=== PATIENT | female | born 1970 | race Caucasian/White ===

== ENCOUNTER 2016-12-24 07:27 | Emergency (ER) | payer MEDICAID ==
[~2016-12-24] VITALS: Ht 162.6 cm; Wt 113.4 kg
[~2016-12-24 07:27] MED LIST: ACHD5005 PO; ALBU8.5H2 IH; AMIT25TA9 PO; AMT10T PO; CLIN300C3 PO; CLOT45CR46 TOP; CYCL10TA9 PO; DICL75TA2 PO; ESTR0.5T PO; ESTR1TAB24 PO; FAMO20TA13 PO; FAMO20TA5 PO; FLC150T PO; FLUC100T PO; FLUT16SP22 NS; FRS325T PO; HCT25T PO; HYDR-3454 PO; HYDR-3714 PO; HYDR25TA4 PO; KETO75CA PO; NAPR-243 PO; NYST15CR TP; OMEG1CAP PO; OMEG1CAP51 PO; OMEP20CA12 PO; OMEP40CA36 PO; OXYC-12 PO; OXYCONTIN; PRD20T PO; PRED20TA PO; SULF-222 PO; TRAM-21 PO; TRAM50TA2 PO; TRM50T PO
--- NOTE | 2016-12-24 09:54 | ED Integumentary General ---
General Chief Complaint: Allergic Reaction Stated Complaint: RASH ON LEGS, ABD AND BACK Nursing Triage Note: PT COMPLAINS OF OVERALL RASH STARTING THIS AM AT 0430. STATES SHE STARTED DIFLUCAN YESTERDAY. HAS NOT TAKEN ANYTHING FOR THE RASH. Source: patient Exam Limitations: no limitations History of Present Illness Time seen by provider: 09:30 Initial Comments The patient is a 46-year-old white female who presents with complaints of rash and generalized itching. She reports that she had been taking Diflucan this week for the treatment of vaginal yeast. This seemed to come on early this morning. Timing/Duration: this morning Allergies and Home Medications Allergies Coded Allergies: prednisone (Verified Allergy, Severe, RASH, 12/24/16) meloxicam (Unverified Allergy, Unknown, NAUSEA, 04/20/14) Home Medications Albuterol 8.5 Gm Hfa.aer.ad, 2 PUFF IH Q4H PRN for SHORTNESS OF BREATH, ( Reported) Diclofenac Sodium 75 Mg Tablet.dr, 75 MG PO BID, (Reported) Hydrochlorothiazide 25 Mg Tablet, 25 MG PO DAILY, (Reported) Hydrocodone Bit/Acetaminophen 1 Each Tablet, 1 TAB PO TID PRN for PAIN, ( Reported) Nystatin 15 Gm Cream..g., 15 GM TP, (Reported) [place]-3 Fatty Acids/Fish Oil 1 Each Capsule, 1,000 MG PO DAILY, (Reported) Prednisone 20 Mg Tab, 40 MG PO DAILY, #8 Prescribed by: PATRICK EVANS on 06/19/16 0228 Constitutional: see HPI EENTM: no symptoms reported Respiratory: no symptoms reported Cardiovascular: no symptoms reported Other Generalized itching Past Ibcwyiv-Chipkp-Wdaxty Hx Patient Social History Recent Foreign Travel: No Contact w/Someone Who Travel: No Recent Infectious Disease Expo: No Recent Hopitalizations: No Immunizations Up To Date Tetanus Booster (TDap): Less than 5yrs PED Vaccines UTD: Yes Date of Pneumonia Vaccine: Nov 05, 2012 Seasonal Allergies Seasonal Allergies: No Surgeries HX Surgeries: Yes (I&D of abdominal abscess) Surgeries: Gallbladder, Hysterectomy, Tubal Ligation Respiratory Hx Respiratory Disorders: No Cardiovascular Hx Cardiac Disorders: Yes Cardiac Disorders: High Cholesterol, Hypertension Neurological Hx Neurological Disorders: No Reproductive System Hx Reproductive Disorders: Yes (HYSTERECTOMY AND EPTOPIC ) Sexually Transmitted Disease: No HIV/AIDS: No Female Reproductive Disorders: Menstrual Problems, Endometriosis [employer] History: Hysterectomy, Tubal Ligation Genitourinary Hx Genitourinary Disorders: No Gastrointestinal Hx Gastrointestinal Disorders: Yes Gastrointestinal Disorders: Gall Bladder Disease Musculoskeletal Hx Musculoskeletal Disorders: Yes Musculoskeletal Disorders: Degenerate Disk Disease Endocrine Hx Endocrine Disorders: No HEENT HX ENT Disorders: No Loss of Vision: Denies Hearing Impairment: Denies Cancer Hx Cancer: No Psychosocial Hx Psychiatric Problems: No Integumentary HX Skin/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) Blood Transfusions Hx Blood Disorders: No Adverse Reaction to a Blood Tr: No Family Medical History Significant Family History: No Pertinent Family Hx Family Medial History: Arthritis 19 FATHER, Onset:Unknown Cardiovascular disease G8 BROTHER, Onset:Unknown (MURMUR) G8 SISTER, Onset:Unknown Diabetes mellitus G8 SISTER, Onset:Unknown FH: CHF (congestive heart failure) 19 MOTHER, Onset:Unknown Hypertension 19 FATHER, Onset:Unknown G8 SISTER, Onset:Unknown Myocardial infarction G8 SISTER, Onset:Unknown Physical Exam Vital Signs Vital Sign - Last 12Hours 12/24/16 07:38 Temp 98.0 Pulse 69 Resp 16 B/P (MAP) 135/90 Pulse Ox 96 O2 Delivery Room Air Capillary Refill : Less Than 3 Seconds General Appearance: mild distress HEENT: normal ENT inspection Neck: full range of motion Cardiovascular: normal peripheral pulses, regular rate, rhythm, no edema, no gallop, no JVD, no murmur Respiratory: chest non-tender, lungs clear, normal breath sounds, no respiratory distress, no accessory muscle use Comments There is a minimal fine pink skin change particularly over the anterior chest below the breasts and to a lesser degree over the thighs. Progress/Results/Core Measures Results/Orders My Orders Orders - YENIFER DELGADILLO MD Diphenhydramine Injection (Benadryl Inje (12/24/16 10:00) Vital Signs/I&O Vital Sign - Last 12Hours 12/24/16 07:38 Temp 98.0 Pulse 69 Resp 16 B/P (MAP) 135/90 Pulse Ox 96 O2 Delivery Room Air Blood Pressure Mean: 105 Departure Impression Impression: Primary Impression: pruritus Disposition: 01 HOME, SELF-CARE Condition: Stable/Unchanged Departure-Patient Inst. Decision time for Depature: 09:53 Referrals: DANG CHIANG (PCP) Primary Care Physician Add. Discharge Instructions: All discharge instructions reviewed with patient and/or family. Voiced understanding. Acquire Benadryl 25 mg which is available [id number]. This may be taken every 4 hours as needed YENIFER DELGADILLO MD December 24, 2016 09:54
[2016-12-24] MEDS ORDERED: diphenhydrAMINE 50 MG/ML INJ (BENADRYL) IM ONE (10:00)
[2016-12-24 10:10] VITALS: BP 137/97
== END 2016-12-24 10:10 | disposition home or self-care (01) ==
LOC: EDUNIT# 07:27 → ER 07:28
DX: L29.9 Pruritus, unspecified (principal); I10 Essential (primary) hypertension; Z79.899 Other long term (current) drug therapy
CPT/HCPCS: 96372; 99282

== ENCOUNTER → 2016-12-30 | Outpatient (CLI) | payer MEDICAID ==
--- NOTE | 2017-01-03 09:35 | Diagnostic Imaging Report ---
Bilateral screening mammogram The current study was also evaluated with a Computer Aided Detection (CAD) system. Indication: Screening. No current complaints stated on the questionnaire. COMPARISON: 11/26/15 FINDINGS: The breasts are composed of scattered fibroglandular densities. There are benign-appearing calcifications seen. Allowing for technique and positional differences, no suspicious change is seen. IMPRESSION: No significant change. ACR BI-RADS Category 2: Benign findings. Result letter will be mailed to the patient. Note: At least 10% of breast cancer is not imaged by mammography. Dictated by: Dictated on workstation # [id number]
== END ==
LOC: RAD 09:35
PROVIDERS: ATTEND Nurse Practitioner Family
DX: Z12.31 Encounter for screening mammogram for malignant neoplasm of breast (principal)
CPT/HCPCS: 77067

== ENCOUNTER 2020-02-11 02:55 | Emergency (ER) | payer SELFPAY ==
[~2020-02-11] VITALS: Ht 160 cm; Wt 115.0 kg
--- OUTSIDE RECORDS SUMMARY | 2020-02-11 03:06 | XMS REPORT ---
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 Dish[employer]fm [facility] [place] [facility] [place] Address [address] [address] Care Team Providers Care Certified Nursing Attendant Name Role Phone MADL, DANG Unavailable Unavailable MADL, DANG Unavailable MADL, DANG Unavailable KAVITHA DIXON Unavailable RACHEL DUMAS Unavailable Unavailable MUSA MUNGUIA Unavailable Unavailable MADL, DANG L MILITARY LOGISTICS SPECIALIST Unavailable JORDON NIELSEN Unavailable Unavailable [facility] Unavailable [phone] MICHAEL NOLAN Unavailable MADL, DANG Unavailable TIFFANY JAVIER Unavailable TIFFANY JAVIER Unavailable MADL, DANG Unavailable MADL, DANG Unavailable MADL, DANG Unavailable MADL, DANG Unavailable MADL, DANG Unavailable KASHIF BEAR Unavailable MADL, DANG Unavailable MADL, DANG Unavailable MADL, DANG Unavailable MADL, DANG Unavailable MADL, DANG Unavailable MADL, DANG Unavailable MADL, DANG Unavailable MADL, DANG Unavailable MADL, DANG Unavailable MADL, DANG Unavailable MADL, DANG Unavailable JASON MANCUSO Unavailable JASON MANCUSO Unavailable JASON MANCUSO Unavailable BROSERENA ARCOS Unavailable Unavailable BROWN, RAGHAVENDRA Unavailable Unavailable BROWN, RAGHAVENDRA Unavailable Unavailable JAMEEJASON Unavailable JAMEE, JASON Unavailable JAMEE, JASON Unavailable JASON MANCUSO Unavailable JASON MANCUSO Unavailable JAMEE JASON Unavailable ELIE NUNEZ, YENIFER Paez Unavailable Unavailable MADL, DANG L MILITARY LOGISTICS SPECIALIST Unavailable Unavailable Migration, Doctor Unavailable Unavailable Migration, Doctor Unavailable Unavailable JAMEE JASON T Unavailable Unavailable Migration, Doctor Unavailable Unavailable Migration, Doctor Unavailable Unavailable BROWN, RAGHAVENDRA Unavailable Unavailable Migration, Doctor Unavailable Unavailable MADL, DANG Unavailable MADL, DANG Unavailable JASON MANCUSO Unavailable MADL, DANG Unavailable Migration, Doctor Unavailable Unavailable MADL, DANG Unavailable MADL, DANG Unavailable MADL, DANG Unavailable MADL, DANG Unavailable MADL, DANG Unavailable MADL, DANG Unavailable MADL, DANG Unavailable MADL, DANG Unavailable MADL, DANG Unavailable Migration, Doctor Unavailable Unavailable MADL, DANG Unavailable MADL, DANG Unavailable MADL, DANG Unavailable MADL, DANG Unavailable Unavailable Unavailable MADL, DANG Unavailable MADL, DANG Unavailable MADL, DANG Unavailable MADL, DANG Unavailable MADL, DANG Unavailable MADL, DANG Unavailable MADL, DANG Unavailable NILDA MUSA Unavailable Migration, Doctor Unavailable Unavailable Migration, Doctor Unavailable Unavailable Migration, Doctor Unavailable Unavailable KALEN TORIBIO Unavailable Migration, Doctor Unavailable Unavailable MADL, DANG Unavailable MADL, DANG Unavailable MADL, DANG Unavailable MADL, DANG Unavailable MADL, DANG Unavailable Migration, Doctor Unavailable Unavailable Migration, Doctor Unavailable Unavailable Migration, Doctor Unavailable Unavailable Unavailable Unavailable Unavailable Unavailable Unavailable Unavailable Unavailable Unavailable Allergies Normalized Allergy Reported Date of Reaction(s) Care Provider Facility Allergy Type classification allergen Allergy Onset Drug Allergy Azole fluconazole 10-25-2017 - DANG whitt [facility] (16 sources.) Antifungals Translations: itching [address] [facility] [ [place], [place] ([address]) DIFRIENZI] Medications Current Medications Medication Ingredient Drug Dose Dates Status Sig Sig Care Class(es) (Normalized) (Original) Provid er amoxicillin Amoxicillin Penicillin- 09-26-19 Active take 1 ntin no 875 mg / / class 13 tablet by 875-125 mg 1 name clavulanate Clavulanate Antibacteri mouth twice tablet by 125 mg oral Translation al daily Oral route 2 tablet (1 s: [ times per source.) Augmentin day for 7 875-125 mg] day(s) Sep, Active cetirizine cetirizine Histamine-1 10 mg 10-26-19 Active no Cetirizine no hydrochlori Translation Receptor 18 - information HCl 10 mg name de 10 mg s: [ Antagonist 11-25-19 Orally Once oral tablet Cetirizine 18 a day 1 (1 source.) HCl 10 mg] tablet 24h Oct, Nov, 30 day(s) Active ciprofloxac Ciprofloxac Quinolone 500 mg 07-13-20 Active take 1 Ciprofloxaci no in 500 mg in Antimicrobi 12 tablet by n 500 mg 1 n saqib oral tablet Translation al mouth every tablet by (1 source.) s: [ twelve hours Oral route Ciprofloxac every 12 in 500 mg] hours for 7 day(s) Jul, Active medroxyPROG medroxyPROG Progestin 10 mg 10-23-19 Active take 1 Provera 10 no ESTERone ESTERone 13 tablet by mg 1 tablet name acetate 10 Translation mouth once by Oral mg oral s: [ daily route 1 time tablet (1 Provera 10 per day for source.) mg] 7 days start on day 21 cycle 18 Oct, 2012 Active methylPREDN methylPREDN Corticoster 4 mg 08-22-19 Active take 1 dose MethylPREDNI no ISolone 4 ISolone oid 14 by mouth Solone 4 mg name mg oral Translation once daily by Oral tablet (1 s: [ route every source.) MethylPREDN day for 6 ISolone 4 days as mg] directed per dose pack Aug, Active metroNIDAZO metroNIDAZO Nitroimidaz 500 mg 10-19-19 Active take 1 Flagyl 500 no LE 500 mg LE ole 13 tablet by mg 1 tablet name oral tablet Translation Antimicrobi mouth twice by Oral (1 source.) s: [ Flagyl al daily route 2 500 mg] times per day for 7 days Oct, Active triamcinolo triamcinolo Corticoster 1 02-06-20 Active no Triamcinolon no ne ne oid mg/mL 18 information e Acetonide name acetonide 1 Translation 0.1 % mg/ml s: [ Externally topical Triamcinolo Twice a day cream (5 ne 1 sources.) Acetonide application 0.1 %, to affected Triamcinolo area 12h 27 ne Mar, 2018 Acetonide Active 0.1 %] zolpidem zolpidem gamma-Amino 5 mg 08-29-19 Active take 1 Ambi en 5 mg no tartrate 5 Translation butyric 19 tablet by Orally Once name mg oral s: [ Ambien Acid-ergic mouth once a day 1 tablet (1 5 mg] Agonist daily at tablet at source.) bedtime bedtime 24h 23 Jonathan, 2019 Active Completed/Discontinued Medications Medication Ingredient Drug Dose Dates Status Sig Sig Care Class(es) (Normalized) (Original) Provid er no MEPERIDINE no 02-03-20 no no no no information SYRINGE INJ information - informat informati on information name (1 source.) 50 MG/CC 02-03-20 ion (DEMEROL 19 SYRINGE) no PROMETHAZIN no 02-03-20 no no no no information E VIAL INJ information - informat informatio n information name (1 source.) 25 MG/CC 02-03-20 ion (PHENERGAN 19 VIAL) NEGATED no no 04-25-20 no no no no no information information 18 - informat information infor mation name information 04-25-20 ion (1 source.) 18 Problems Active Problems Problem Normalized Date Last Normalized Normalized Provider Fa rohit Classification Problem(s) Recorded Problem Problem Sta tus Duration Unclassified Body mass Chronic Active DANG MADL Commun[facility] ty (20 sources.) index (BMI) [facility] [facility] 45.0-49.9, of [facility] adult [place] ([address]) Translations: [ - BMI 45.0-49.9, adult Z68.42, Chronic pain, Chronic pain, Chronic pain, - BMI 45.0-49.9, adult Z68.42] Other Body Mass Chronic Active PATRICK Not Availabl e nutritional; Index YUMIKO , (02750) endocrine; and 40.0-44.9, metabolic adult disorders (1 source.) Joint Derangement of Chronic Active HITESH BURTON Not Av ailable disorders and posterior horn (05777) dislocations; of medial trauma-related meniscus (1 source.) Other Obesity, Chronic Active PATRICK Not Available nutritional; unspecified YUMIKO , (95847) endocrine; and metabolic disorders (1 source.) Other nervous Other chronic Chronic Active DANG MADL [facility] pain [address] [facility] disorders (20 Translations: [facility] sources.) [ - Chronic [place] ([address]) pain 338.29, - Chronic pain 338.29] Other lower Painful Episodic Active MICAELA Not Availab le respiratory respiration CHELA ARTHUR (28423) disease (8 sources.) Sprains and Sprain of Episodic Active [facility] strains (11 unspecified [facility] of sources.) site of left [place] knee, initial County ([address]) encounter Translations: [ SPRAIN OF UNSPECIFIED SITE OF KNEE AND LEG, STRAIN OF MUSCLE AND TENDON OF FRONT WALL OF THORAX, INIT , OTHER SPECIFIED SITES OF SPRAINS AND STRAINS] Other diseases Venous Episodic Active DANG CHIANG [facility] ity of veins and insufficiency [address] [facility] lymphatics (20 (chronic) of [place] sources.) (peripheral) [place] ([address]) Translations: [ - Stasis dermatitis of both legs I87.2, - Stasis dermatitis of both legs I87.2] Past or Other Problems Problem Normalized Date Last Normalized Normalized Provider Fa cility Classification Problem(s) Recorded Problem Problem Sta tus Duration External cause Bite of no information no information MICAELA Not Available codes: nonvenomous CHELA ARTHUR (61533) Natural/enviro arthropod nment (1 source.) Other Care involving Episodic Completed MICHAEL Not Anny ilable aftercare (1 other physical MD OVIDIO (99518) source.) therapy Conditions Dizziness and Episodic Completed PATRICK Not Anny ilable associated giddiness YUMIKO , (81150) with dizziness or vertigo (1 source.) Other Effusion of Episodic Completed HITESH BURTON Not Avail able non-traumatic joint, lower (30747) joint leg disorders (1 source.) External cause Home accidents no information no information L YANI NELIDA , DO Not Available codes: Place (29461) of occurrence (1 source.) Other injuries Knee, leg, Episodic Completed KRYSTA NELIDA , DO N ot Available and conditions ankle, and (23487) due to foot injury external causes (1 source.) Bacterial Methicillin Episodic Completed PATRICK Not Availa ble infection; resistant BRUEGGEMANN , (06172) unspecified Staphylococcus site (1 aureus in source.) conditions classified elsewhere and of unspecified site External cause Other external no information no information L YANI NELIDA , DO Not Available codes: cause status (83277) Unspecified (3 Translations: sources.) [ OTHER ACTIVITY] Other Pain in joint, Episodic Completed MICHAEL Not Anny ilable non-traumatic pelvic region MD OVIDIO (03730) joint and thigh disorders (1 source.) Pneumonia Pneumonia, Episodic Completed PATRICK Not Availab le (except that unspecified BRUEGGEMANN , (89724) caused by organism tuberculosis or sexually transmitted disease) (1 source.) Other Pruritus, Episodic Completed YENIFER ODGERS Not Avai lable inflammatory unspecified , (25012) condition of skin (1 source.) Other skin Rash and other Episodic Completed MICEALA Not Av ailable disorders (2 nonspecific CHELA ARTHUR (94925) sources.) skin eruption External cause Striking no information no information KRYSTA NELIDA , DO Not Available codes: Struck against or (00126) by; against (1 struck source.) accidentally by furniture without subsequent fall Inflammatory Vaginitis and Episodic Completed PATRICK Not A vailable diseases of vulvovaginitis YUMIKO , (47768) female pelvic , unspecified MD organs (2 sources.) Procedures Procedure Normalized Procedure Procedure Result Performer Facility Date 11-11-2013 Collection venous no information no name [facility] blood venipuncture [facility] (67352) 11-11-2013 Comprehensive no information no name [facility] metabolic panel [facility] (30594) 12-11-2013 Cul bact xcpt urine no information no name [facility] blood/stool aerobic [facility] (99106) 11-28-2013 Demo&/eval of pt no information no name [facility] utiliz aersl [facility] gen/neb/inhlr/ip [place] (31144) 02-05-2018 Dexamethasone sodium no information no name [facility] (21496) 11-16-2017 Drug tst prsmv no information no name [facility] inst[facility] chem [facility] analyzers pr date [place] (35051) 11-15-2017 Drug tst prsmv no information no name [facility] instrmnt chem [facility] analyzers pr date [place] (15030) 10-25-2017 Hemoglobin no information no name [facility] glycosylated a1c [facility] (65561) 04-02-2018 Methylprednisolone 80 no information no name [facility] MG inj [facility] (87440) 11-28-2013 Respiratory flow no information no name [facility] volume loop [facility] (78484) 11-28-2013 Spmtry w/vc expiratory no information no name [facility] josue w/wo mxml vol vntj [facility] (66933) 04-02-2018 Therapeutic no information no name [facility] prophylactic/dx [facility] injection subq/im [place] (72309) 02-05-2018 Therapeutic no information no name [facility] prophylactic/dx [facility] injection subq/im [place] (32979) Immunizations Normalized Immunization Date Notes Care Provider Facili ty Immunization DEPO MEDROL 80 MG/ML 04-02-2018 no information JASON Medley [address] [facility] (67038) DEXAMETHASONE 4MG/ML 02-05-2018 no information JASON Medley [address] [place] [address] (PER 1 MG) [facility] (42494) influenza, 09-11-2019 no information no name [facility] injectable, [facility] quadrivalent, [facility] contains (34463) preservative tetanus and 11-05-2002 no information no name [facility] diphtheria toxoids, [facility] adsorbed, [facility] preservative free, (54928) for adult use (2 Lf of tetanus toxoid and 2 Lf of diphtheria toxoid) zoster vaccine 09-11-2019 no information no name [facility] recombinant [facility] (83515) Results Test Name Value Interpretation Reference Range Date Time Fa cility (Normalized) (Normalized) (Medline Reference) a1c (in house) on null HbA1c 5.9 % (no code) 0 - 5.7 % [facility] (90877) A1C (IN HOUSE) 0812 (no code) [facility] (24562) A1C (IN HOUSE) 06/2019 (no code) [facility] (32239) not yet categorized on 2020-01-01 Exp date 07/2021 (no code) [facility] (40843) Lot 6.1~5.8~0610 (no code) [facility] (43621) laboratory on 2019-09-16 Albumin 4.4 g/dL (N) 3.4 - 5.4 g/dL [facility] [Mass/Vol] [facility] (56653) Albumin/Globulin 1.5 {ratio} (N) 1 - 2.5 {ratio} Comm [facility] [Mass ratio] [facility] (99168) ALP [Catalytic 129 U/L (N) 44 - 147 U/L [facility] activity/Vol] [facility] (94912) ALT [Catalytic 29 U/L (N) 4 - 40 U/L [facility] activity/Vol] [facility] (07073) AST [Catalytic 28 U/L (N) 10 - 34 U/L [facility] activity/Vol] [facility] (82829) Basophils (Bld) 0.079 10*3/uL (N) 0 - 0.3 10*3/uL [facility] [#/Vol] [facility] () Basophils/100 0.9 % (N) 0.5 - 1 % [facility] alth WBC (Bld) [facility] (51996) Bilirubin 0.7 mg/dL (N) 0.1 - 1.2 mg/dL [facility] [Mass/Vol] [facility] (29120) Calcium 9.3 mg/dL (N) 8.5 - 10.2 mg/dL [facility] [Mass/Vol] [facility] (65359) Chloride 103 mmol/L (N) 95 - 106 mmol/L [facility] [Moles/Vol] [facility] (34377) Cholesterol 164 mg/dL (N) 180 - 200 mg/dL [facility] [Mass/Vol] [facility] (59060) Cholesterol in 45 mg/dL (L) [facility] h HDL [Mass/Vol] [facility] (90939) Cholesterol in 92 mg/dL (N) 0 - 100 mg/dL [facility] LDL [Mass/Vol] [facility] (35866) Cholesterol non 119 mg/dL (N) [facility] th HDL [Mass/Vol] [facility] (24095) Cholesterol.tota 3.6 {ratio} (N) [facility] l/Cholesterol in [facility] HDL [Mass ratio] [facility] (15278) CO2 [Moles/Vol] 29 mmol/L (N) 23 - 29 mmol/L [facility] (76035) Creatinine 0.86 mg/dL (N) [facility] h [Mass/Vol] [facility] (08319) Eosinophils 0.458 10*3/uL (N) 0.05 - 0.5 [facility] alth (Bld) [#/Vol] 10*3/uL [facility] (91766) Eosinophils/100 5.2 % (N) 1 - 4 % [facility] WBC (Bld) [facility] (53682) Erythrocyte 13.1 % (N) 11.6 - 14.6 % [facility]alth distribution [facility] width (RBC) [facility] [Ratio] (96191) GFR/1.73 sq M 91 (N) 90 - 120 [facility] predicted among mL/min/{1.73_m2} mL/min/{1.73_m2} Center o f [facility] blacks MDRD [facility] (S/P/Bld) [Vol (02831) rate/Area] GFR/1.73 sq 79 (N) 90 - 120 [facility] th M.predicted MDRD mL/min/{1.73_m2} mL/min/{1.73_m2} [facility] (S/P/Bld) [Vol [facility] rate/Area] (51611) Globulin (S) 3.0 g/dL (N) 2 - 3.5 g/dL [facility] [Mass/Vol] [facility] (92115) Glucose 90 mg/dL (N) 60 - 125 mg/dL [facility] [Mass/Vol] [facility] (19903) Hematocrit (Bld) 45.9 % (H) 36.1 - 50.3 % [facility] [Volume Center of [facility] fraction] [facility] (47346) Hemoglobin (Bld) 15.6 g/dL (H) 12.1 - 17.2 g/dL [facility] [Mass/Vol] [facility] (79966) Lymphocytes 3.238 10*3/uL (N) 0.9 - 2.9 [facility] (Bld) [#/Vol] 10*3/uL [facility] (53367) Lymphocytes/100 36.8 % (N) 20 - 40 % [facility] WBC (Bld) [facility] (66222) MCH (RBC) 29.2 pg (N) 27 - 31 pg [facility] [Entitic mass] [facility] (93907) MCHC (RBC) 34.0 g/dL (N) 32 - 36 g/dL [facility] [Mass/Vol] [facility] (81696) MCV (RBC) 85.8 fL (N) 80 - 100 fL [facility] [Entitic vol] [facility] (88540) Monocytes (Bld) 0.704 10*3/uL (N) 0.3 - 0.9 [facility] [#/Vol] 10*3/uL [facility] (40970) Monocytes/100 8.0 % (N) 2 - 8 % [facility] WBC (Bld) [facility] (87070) Neutrophils 4.321 10*3/uL (N) 1.7 - 7 10*3/uL [facility] (Bld[facility] [#/Vol] [facility] (56720) Neutrophils/100 49.1 % (N) 40 - 60 % [facility] WBC (Bld) [facility] (59555) Platelet mean 12.0 fL (N) 7.2 - 11.7 fL [facility] volume (Bld) [facility] [Entitic vol] [facility] (76836) Platelets (Bld) 285 10*3/uL (N) 150 - 450 [facility] [#/Vol] 10*3/uL [facility] (79295) Potassium 4.6 mmol/L (N) 3.7 - 5.2 mmol/L [facility] [Moles/Vol] [facility] (17279) Protein 7.4 g/dL (N) 6.4 - 8.3 g/dL [facility] [Mass/Vol] [facility] (19752) RBC (Bld) 5.35 10*6/uL (H) 4.2 - 6.1 [facility] [#/Vol] 10*6/uL [facility] (44403) Sodium 139 mmol/L (N) 135 - 145 mmol/L [facility] [Moles/Vol] [facility] (15103) Triglyceride 175 mg/dL (H) 0 - 150 mg/dL [facility] [Mass/Vol] [facility] (29266) TSH Qn 2.80 m[IU]/L (N) 0.4 - 4 m[IU]/L [facility] (03650) Urea nitrogen 12 mg/dL (N) 7 - 20 mg/dL [facility] [Mass/Vol] [facility] (72048) Urea NOT APPLICABLE (no code) [facility]in [facility] (81882) WBC (Bld) 8.8 10*3/uL (N) 3.5 - 10.5 [facility] [#/Vol] 10*3/uL [facility] (08495) not yet categorized on 2019 Exp date 03/2021 (no code) [facility] (14754) Lot 5.8~5.9~0552 (no code) [facility] (00432) not yet categorized on 2019-03-14 COMMENT no information (no code) [facility] (94614) Prescribed Drug [place](TM) (no code) [facility] (35354) laboratory on 2019-03-14 Amphetamines Ql Negative (no code) [facility] (U) [facility] (57562) Barbiturates Ql Negative (no code) [facility] (U) [facility] (60993) Benzodiazepines Negative (no code) [facility] Ql (U) [facility] (77831) Benzoylecgonine Negative (no code) [facility] Ql (U) [facility] (06323) Creatinine (U) 158.0 mg/dL (no code) [facility] [Mass/Vol] [facility] (86472) Drug screen CONSISTENT (no code) [facility] comment (U) [facility] [Interp] [facility] (96033) Drug screen INCONSISTENT (no code) [facility] comment (U) [facility] [Inter] [facility] (61278) Methadone Ql (U) Negative (no code) [facility] (84649) Opiates Ql (U) Negative (no code) [facility] (27406) Oxidants Ql (U) Negative (no code) [facility] (68068) Oxycodone Ql (U) Negative (no code) [facility] (59896) pH (U) 6.57 [pH] (no code) 4.6 - 8 [pH] [facility] (96467) Phencyclidine Ql Negative (no code) [facility] (U[facility] (43524) Tetrahydrocannab Negative (no code) [facility] lt inol Ql (U) [facility] (18001) other on 2019-02-02 Albumin BCG dye 4.2 (no code) 02-02-2019 Hospital [Mass/Vol] 08: [facility] (92244) CK [Catalytic 475 U/L (H) 02-02-2019 Hospital activity/Vol] 08: [facility] (87026) Electrocardiogra Complete (no code) 02-02-2019 Hospital ms recorded 08: [facility] (80065) Erythrocyte 13.6 % (no code) 11.6 - 14.6 % 02-02-2019 Hospit al distribution 08: [facility] of width (RBC) [facility] [Ratio] (01485) GFR/1.73 sq 66 (no code) 90 - 120 02-02-2019 Hospital M.predicted MDRD mL/min/{1.73_m2} mL/min/{1.73_m2} 08: [facility] of (S/P/Bld) [Vol [facility] rate/Area] (20454) Globulin (S) 3.5 g/dL (no code) 2 - 3.5 g/dL 02-02-2019 Hospit al [Mass/Vol] 08: [facility] () HCO3 (P) 22 (no code) 02-02-2019 Hospital [Moles/Vol] 08: [facility] () MCHC (RBC) 33.3 g/dL (no code) 32 - 36 g/dL 02-02-2019 Hospital [Mass/Vol] 08: [facility] () Osmolality Calc 287 (no code) 02-02-2019 Hospital [Osmolality] 08: [facility] () Platelet mean 12.0 fL (H) 7.2 - 11.7 fL 02-02-2019 Hosp ital volume (Bld) 08: [facility] [Entitic vol] [facility] () metabolic panel on 2019-02-02 ALP [Catalytic 117 U/L (no code) 44 - 147 U/L 02-02-2019 Hosp ital activity/Vol] 08: [facility] () ALT [Catalytic 35 U/L (no code) 4 - 40 U/L 02-02-2019 Hospit al activity/Vol] 08: [facility] (38471) Anion gap 14 mmol/L (no code) 3 - 11 mmol/L 02-02-2019 Hospital [Moles/Vol] 08: [facility] (34976) AST [Catalytic 34 U/L (no code) 10 - 34 U/L 02-02-2019 Hospi amparo activity/Vol] 08: [facility] () Bilirubin 1.5 mg/dL (H) 0.1 - 1.2 mg/dL 02-02-2019 Hospit al [Mass/Vol] 08: [facility] () Calcium 8.8 mg/dL (no code) 8.5 - 10.2 mg/dL 02-02-2019 Hospi amapro [Mass/Vol] 08: [facility] () Chloride 107 mmol/L (no code) 95 - 106 mmol/L 02-02-2019 Hospi amparo [Moles/Vol] 08: [facility] () Creatinine 0.90 mg/dL (no code) 02-02-2019 Hospital [Mass/Vol] 08: [facility] () Glucose 115 mg/dL (H) 60 - 125 mg/dL 02-02-2019 Hospita l [Mass/Vol] 08: [facility] () Potassium 3.9 mmol/L (no code) 3.7 - 5.2 mmol/L 02-02-2019 Hosp ital [Moles/Vol] 08: [facility] () Protein 7.7 g/dL (no code) 6.4 - 8.3 g/dL 02-02-2019 Hospita l [Mass/Vol] 08: [facility] () Sodium 139 mmol/L (no code) 135 - 145 mmol/L 02-02-2019 Hosp ital [Moles/Vol] 08: [facility] () Urea nitrogen 11 mg/dL (no code) 7 - 20 mg/dL 02-02-2019 Hospi amparo [Mass/Vol] 08: [facility] ([id number]) hematology on 2019-02-02 Basophils (Bld) 0.0 10*3/uL (no code) 0 - 0.3 10*3/uL 02-02-2019 Hospital [#/Vol] 08: [facility] ([id number]) Basophils/100 0.30 % (no code) 0.5 - 1 % 02-02-2019 Hospital WBC (Bld) 08: [facility] ([id number]) Eosinophils 0.3 10*3/uL (no code) 0.05 - 0.5 02-02-2019 Hospita l (Bld) [#/Vol] 10*3/uL 08: [facility] ([id number]) Eosinophils/100 3.3 % (no code) 1 - 4 % 02-02-2019 Hospit al WBC (Bld) 08: [facility] () Hematocrit (Bld) 47.8 % (H) 36.1 - 50.3 % 02-02-2019 H ospital [Volume 08: [facility] () Hemoglobin (Bld) 15.9 g/dL (H) 12.1 - 17.2 g/dL 02-02-2019 Hospital [Mass/Vol] 08: [facility] ([id number]) Lymphocytes 3.55 10*3/uL (H) 0.9 - 2.9 02-02-2019 Hospita l (Bld) [#/Vol] 10*3/uL 08: [facility] ([id number]) Lymphocytes/100 39.6 % (no code) 20 - 40 % 02-02-2019 Hospit al WBC (Bld) 08: [facility] ([id number]) MCH (RBC) 29.0 pg (no code) 27 - 31 pg 02-02-2019 Hospital [Entitic mass] 08: [facility] () MCV (RBC) 87.1 fL (no code) 80 - 100 fL 02-02-2019 Hospital [Entitic vol] 08: [facility] ([id number]) Monocytes (Bld) 0.7 10*3/uL (no code) 0.3 - 0.9 02-02-2019 Hosp ital [#/Vol] 10*3/uL 08: [facility] ([id number]) Monocytes/100 7.6 % (no code) 2 - 8 % 02-02-2019 Hospital WBC (Bld) 08: [facility] ([id number]) Neutrophils 4.40 10*3/uL (no code) 1.7 - 7 10*3/uL 02-02-2019 H ospital (Bld) [#/Vol] 08: [facility] ([id number]) Neutrophils/100 49.2 % (no code) 40 - 60 % 02-02-2019 Hospit al WBC (Bld) 08: [facility] ([id number]) Platelets (Bld) 241 10*3/uL (no code) 150 - 450 02-02-2019 Hosp ital [#/Vol] 10*3/uL 08: [facility] ([id number]) RBC (Bld) 5.49 10*6/uL (H) 4.2 - 6.1 02-02-2019 Hospital [#/Vol] 10*6/uL 08: [facility] ([id number]) WBC (Bld) 8.96 10*3/uL (no code) 3.5 - 10.5 02-02-2019 Hospital [#/Vol] 10*3/uL 08: [facility] ([id number]) cardiac on 2019-02-02 CK.MB [Mass/Vol] 2.9 ng/mL (no code) 0 - 4.3 ng/mL 02-02-2019 H ospital 08: [facility] ([id number]) Myoglobin 78.3 ng/mL (no code) 02-02-2019 Hospital [Mass/Vol] 08: [facility] ([id number]) Troponin ng/mL (no code) 0 - 0.4 ng/mL 02-02-2019 Hospital I.cardiac 08: [facility] [Mass/Vol] [facility] ([id number]) other on 2017-10-25 Exp date 06/2019 (no code) [facility] ([id number]) Lot 5.9~5.9~0812 (no code) [facility] ([id number]) other on 2017-03-28 Albumin/Globulin 1.6 {ratio} (no code) 1 - 2.5 {ratio} 08-22-201 7 Not Available [Mass ratio] 09:49 (53801) Cholesterol in 34 mg/dL (no code) 03-28-2017 Not Availab le VLDL [Mass/Vol] 09:49 (31398) Erythrocyte 13.9 % (no code) 11.6 - 14.6 % 03-28-2017 Not Av ailable distribution 09: (12784) width (RBC) [Ratio] Globulin (S) 2.8 g/dL (no code) 2 - 3.5 g/dL 03-28-2017 Not Av ailable [Mass/Vol] 09:49 (41759) Immature 0.0 10*3/uL (no code) 0 - 0.2 10*3/uL 03-28-2017 Not Available granulocytes 09: () (Bld) [#/Vol] Immature 0 % (no code) 0 - 0.5 % 03-28-2017 Not Availabl e granulocytes/100 09: (66738) WBC (Bld) MCHC (RBC) 34.4 g/dL (no code) 32 - 36 g/dL 03-28-2017 Not Avai lable [Mass/Vol] 09: (97451) metabolic panel on 2017-03-28 Albumin 4.5 g/dL (no code) 3.4 - 5.4 g/dL 03-28-2017 Not Anny ilable [Mass/Vol] 09:48 (20539) ALP [Catalytic 118 U/L (H) 44 - 147 U/L 03-28-2017 Not Available activity/Vol] 09:48 (06496) ALT [Catalytic 29 U/L (no code) 4 - 40 U/L 03-28-2017 Not Av ailable activity/Vol] 09:48 (82869) AST [Catalytic 28 U/L (no code) 10 - 34 U/L 03-28-2017 Not A vailable activity/Vol] 09:48 (23240) Bilirubin 0.8 mg/dL (no code) 0.1 - 1.2 mg/dL 03-28-2017 Not Av ailable [Mass/Vol] 09:48 (34472) Calcium 9.2 mg/dL (no code) 8.5 - 10.2 mg/dL 03-28-2017 Not A vailable [Mass/Vol] 09:480400 (21758) Chloride 104 mmol/L (no code) 95 - 106 mmol/L 03-28-2017 Not A vailable [Moles/Vol] 09:420400 (90713) CO2 [Moles/Vol] 23 mmol/L (no code) 23 - 29 mmol/L 03-28-2017 N ot Available 09:48 (15985) Creatinine 0.90 mg/dL (no code) 03-28-2017 Not Available [Mass/Vol] 09:48040 (52873) GFR/1.73 sq M 88 (no code) 90 120 03-28-2017 Not Avai lable predicted among mL/min/{1.73_m2} mL/min/{1.73_m2} 09:490400 (41556) blacks MDRD (S/P/Bld) [Vol rate/Area] GFR/1.73 sq M 76 (no code) 90 120 03-28-2017 Not Avai lable predicted among mL/min/{1.73_m2} mL/min/{1.73_m2} 09:490400 (05403) non-blacks MDRD (S/P/Bld) [Vol rate/Area] Glucose 102 mg/dL (H) 60 - 125 mg/dL 03-28-2017 Not Anny ilable [Mass/Vol] 09:48 (63761) Potassium 4.6 mmol/L (no code) 3.7 - 5.2 mmol/L 03-28-2017 Not Available [Moles/Vol] 09:420400 (93147) Protein 7.3 g/dL (no code) 6.4 - 8.3 g/dL 03-28-2017 Not Anny ilable [Mass/Vol] 09:480400 (46997) Sodium 142 mmol/L (no code) 135 - 145 mmol/L 03-28-2017 Not Available [Moles/Vol] 09:420400 (67408) Urea nitrogen 11 mg/dL (no code) 7 - 20 mg/dL 03-28-2017 Not A vailable [Mass/Vol] 09:480400 (20853) Urea 12 mg/mg (no code) 6 - 22 mg/mg 03-28-2017 Not Avail able nitrogen/Creatin 09:490400 (82308) ine [Mass ratio] hematology on 2017-03-28 Basophils (Bld) 0.1 10*3/uL (no code) 0 - 0.3 10*3/uL 03-28-2017 Not Available [#/Vol] 09:100400 (21255) Basophils/100 1 % (no code) 0.5 - 1 % 03-28-2017 Not Avai lable WBC (Bld) 09:100400 (03667) Eosinophils 0.3 10*3/uL (no code) 0.05 - 0.5 03-28-2017 Not Anny ilable (Bld) [#/Vol] 10*3/uL 09:100400 (13766) Eosinophils/100 4 % (no code) 1 - 4 % 03-28-2017 Not Av ailable WBC (Bld) 09:0400 (57022) Hematocrit (Bld) 43.6 % (no code) 36.1 - 50.3 % 03-28-2017 N ot Available [Volume 09: (65250) fraction] Hemoglobin (Bld) 15.0 g/dL (no code) 12.1 - 17.2 g/dL 03-28-2017 Not Available [Mass/Vol] 09:100400 (44462) Lymphocytes 3.0 10*3/uL (no code) 0.9 - 2.9 03-28-2017 Not Avai lable (Bld) [#/Vol] 10*3/uL 09:100400 (66071) Lymphocytes/100 41 % (no code) 20 - 40 % 03-28-2017 Not Av ailable WBC (Bld) 09:100400 (06659) MCH (RBC) 29.2 pg (no code) 27 - 31 pg 03-28-2017 Not Availab le [Entitic mass] 09:100400 (22838) MCV (RBC) 85 fL (no code) 80 - 100 fL 03-28-2017 Not Availa ble [Entitic vol] 09:100400 (33234) Monocytes (Bld) 0.6 10*3/uL (no code) 0.3 - 0.9 03-28-2017 Not Available [#/Vol] 10*3/uL 09:10-0400 (67297) Monocytes/100 9 % (no code) 2 - 8 % 03-28-2017 Not Avai lable WBC (Bld) 09:100400 (57167) Neutrophils 3.2 10*3/uL (no code) 1.7 - 7 10*3/uL 03-28-2017 No t Available (Bld) [#/Vol] 09:100400 (51556) Neutrophils/100 45 % (no code) 40 - 60 % 03-28-2017 Not Av ailable WBC (Bld) 09:0400 (15165) Platelets (Bld) 270 10*3/uL (no code) 150 - 450 03-28-2017 Not Available [#/Vol] 10*3/uL 09:100400 (81076) RBC (Bld) 5.13 10*6/uL (no code) 4.2 - 6.1 03-28-2017 Not Avail able [#/Vol] 10*6/uL 09:100400 (08135) WBC (Bld) 7.2 10*3/uL (no code) 3.5 - 10.5 03-28-2017 Not Avail able [#/Vol] 10*3/uL 09:100400 (86599) cardiac on 2017-03-28 Cholesterol 189 mg/dL (no code) 180 - 200 mg/dL 03-28-2017 Not Available [Mass/Vol] 09:48-0400 (89941) Cholesterol in 48 mg/dL (no code) 03-28-2017 Not Availab le HDL [Mass/Vol] 09:48-0400 (08731) Cholesterol in 107 mg/dL (H) 0 - 100 mg/dL 03-28-2017 Not Available LDL [Mass/Vol] 09:49-0400 (96290) Triglyceride 170 mg/dL (H) 0 - 150 mg/dL 03-28-2017 Not A vailable [Mass/Vol] 09:48-0400 (09165) Vital Signs Vital Sign Value Interpretation Reference Date Time Care Prov ider Facility (Normalized) (Normalized) Range BMI (Body Mass 44.66 kg/m2 (no code) 15 - 25 kg/m2 05-09-2018 W CLARE MANCUSO Community Index) 10:20-0400 86343 [facility] ([id number]) BMI (Body Mass 45.98 kg/m2 (no code) 15 - 25 kg/m2 04-02-2018 W CLARE JAMEE Community Index) 11:40-0400 78256 [facility] ([id number]) BMI (Body Mass 46.71 kg/m2 (no code) 15 - 25 kg/m2 [facility]-05-[facility] 17:20-0400 80147 [facility] (75456) BMI (Body Mass 47.55 kg/m2 (no code) 15 - 25 kg/m2 10-25-2017 [facility] Community Index) 15:20-0400 64605 [facility] ([id number]) Body height 157.48 cm (no code) cm 12-11-2013 [facility] 18:09-[address] [place] [address] ([id number]) Body height 157.48 cm (no code) cm 11-11-2013 [facility] 12:34-[address] [place] [address] (30489) Body height 157.48 cm (no code) cm 10-02-2013 [facility] 15:28-0500 [facility] ([id number]) Body 97.7 [degF] (no code) 97.8 - 99.0 05-09-2018 [facility] Community Temperature [degF] 10:200400 27636 [facility] ([id number]) Body 97.9 [degF] (no code) 97.8 - 99.0 04-02-2018 [facility] Community Temperature [degF] 11:40-0400 98892 [facility] (80265) Body 97.8 [degF] (no code) 97.8 - 99.0 02-05-2018 JASON [facility] Community Temperature [degF] 17:20-0400 17600 [facility] ([id number]) Body 97.8 [degF] (no code) 97.8 - 99.0 10-25-[address] [facility] [degF[facility] 15:20-0400 71259 [facility] ([id number]) Body 97.6 [degF] (no code) 97.8 - 99.0 10-13-2014 DANG [facility] Temperature [degF] 10:16-0400 60149 [facility] (15568) Body 98 [degF] (no code) 97.8 - 99.0 09-15-2014 [facility] Temperature [degF] 09:37-0500 80162 [facility] ([id number]) Body 98 [degF] (no code) 97.8 - 99.0 01-08-2014 [facility] Temperature [degF] 12:06-0400 20429 [facility] ([id number]) Body 98.9 [degF] (no code) 97.8 - 99.0 12-11-2013 DANG [facility] temperature [degF] 18:09-0400 11326 [facility] (44207) Body 98.1 [degF] (no code) 97.8 - 99.0 11-11-[address] [facility] [degF] 12:34-0400 96132 [facility] (44222) Body 97.7 [degF] (no code) 97.8 - 99.0 10-02-2013 [facility] temperature [degF] 15:28-0500 [facility] ([id number]) Body weight 114.62 kg (no code) kg 10-13-2014 DANG [facility] 10:16-0400 64101 [facility] ([id number]) Body weight 112.49 kg (no code) kg 01-08-2014 DANG [facility] 12:06-0400 87317 [facility] ([id number]) Body weight 114.76 kg (no code) kg 12-11-2013 DANGAZAR OROSCOL [facility] 18:090400 [address] [place] [address] (06169) Body weight 114.99 kg (no code) kg 11-11-2013 DANG CHIANG [facility] 12:340400 [address] [place] [address] (47219) Body weight 114.31 kg (no code) kg 10-02-2013 [facility] 15:280500 [facility] (22562) Height 157.48 cm (no code) cm 05-09-2018 JASON [facility] 10:200400 [address] [place] [address] ([id number]) Height 157.48 cm (no code) cm 04-02-2018 [facility] 11:400400 [address] [place] [address] ([id number]) Height 157.48 cm (no code) cm 02-05-2018 [facility] 17:200400 [address] [place] [address] ([id number]) Height 157.48 cm (no code) cm 10-25-2017 [facility]ANG [facility]L [facility] 15:200400 [address] [place] [address] ([id number]) Height 157.48 cm (no code) cm 10-13-2014 [facility] 10:160400 [address] [place] [address] (53012) Height 157.48 cm (no code) cm 09-15-2014 [facility]ANG [facility]L [facility] 09:370500 [address] [place] [address] ([id number]) Height 157.48 cm (no code) cm 01-08-2014 [facility]ANG [facility] 12:060400 [address] [place] [address] ([id number]) Pulse Oximetry 96 % (no code) 95 - 100 % 05-09-2018 [facility] [place] 10:200400 [address] [place] [address] ([id number]) Pulse Oximetry 96 % (no code) 95 - 100 % 04-02-2018 [facility] [place] 11:40-[address] [place] [address] ([id number]) Pulse Oximetry 0 % (no code) 95 - 100 % 02-05-2018 JASON Vega 17:20-0400 62693 [facility] ([id number]) Weight 110.77 kg (no code) kg 05-09-2018 [facility] 10:20-0400 84148 [facility] ([id number]) Weight 114.04 kg (no code) kg 04-02-2018 [facility] 11:40-0400 91610 [facility] ([id number]) Weight 115.85 kg (no code) kg 02-05-2018 JASON [facility] 17:20-0400 26515 [facility] ([id number]) Weight 117.94 kg (no code) kg 10-25-2017 DANG [facility] 15:20-[id number] [place] [address] ([id number]) Interventions No Information Plan of Treatment Normalized Care Care Detail Care Activity Date Care Provider F acility Activity no information no information no information DANG OROSCOL [address] [place] [address] ([id number]) Goals No Information Social History The data below is from unstructured sources History Response Recorde d Date/Time Hx Family Cancer Y MOM KIDNEY 11/20/12 10:12am Hx Family Cardiac Disorders Y 11/20/12 10:12am Hx Family Hypertension Y MOM 11/20/12 10:12am Hx Family Myocardial Infarction Y SISTER 11/20/12 10:12am History Response Recorde d Date/Time Alcohol Use Denies Use 0 03/08/13 2:49am Recreational Drug Use N 03/08/13 2:49am Recent Foreign Travel N 03/08/13 2:49am Recent Infectious Disease Exposure N 03/08/13 2:49am Hospitalization with Isolation Denies 03/08/13 2:49am Functional Status The data below is from unstructured sources Query Response Date Jose Alejandro rded Patient Orientation Person Place Time Situation Normal For Age April 24, 2014 12:20pm Comprehension Ability Understands Co ncepts April 23, 2014 7:45pm Mental Status No Information Encounters Encounter Normalized Encounter Encounter Diagnosis Care Provi santiago Organization Date Type 12-14-2014 Emergency department no information no name no organization name - patient visit 12-14-2014 01-05-2014 Emergency department no information no name no organization name - patient visit 01-05-2014 11-14-2013 Emergency department no information no name no organization name - patient visit 11-14-2013 04-25-2018 Patient encounter no information no name no or ganization name - 04-25-2018 02-05-2018 Patient encounter no information no name no or ganization name 11-16-2017 Patient encounter no information no name no or ganization name 10-25-2017 Patient encounter no information no name no or ganization name 01-01-2020 Patient encounter no information (no phone) [facility] procedure [facility] (no phone) 09-16-2019 Patient encounter no information (no phone) [facility] procedure [facility] (no phone) 09-11-2019 Patient encounter no information no name no or ganization name procedure 08-26-2019 Patient encounter no information no name no or ganization name procedure 2019 Patient encounter no information no name no or ganization name procedure 04-19-2019 Patient encounter no information no name no or ganization name procedure 03-14-2019 Patient encounter no information no name no or ganization name procedure 02-02-2019 Patient encounter no information no name no or ganization name - procedure 02-02-2019 11-28-2018 Patient encounter no information no name no or ganization name procedure 11-19-2018 Patient encounter no information no name no or ganization name procedure 11-17-2018 Patient encounter no information no name no or ganization name procedure 11-16-2018 Patient encounter no information no name no or ganization name procedure 09-11-2018 Patient encounter no information no name no or ganization name procedure 08-29-2018 Patient encounter no information no name no or ganization name procedure 12-30-2016 Patient encounter no information no name no or ganization name procedure 11-26-2015 Patient encounter no information no name no or ganization name procedure 10-29-2015 Patient encounter no information no name no or ganization name procedure 04-25-2014 Patient encounter no information no name no or ganization name procedure 11-12-2012 Patient encounter no information no name no or ganization name procedure 08-10-2012 Patient encounter no information no name no or ganization name - procedure 08-10-2012 07-20-2012 Patient encounter no information no name no or ganization name procedure no information Encounter for no name no organization name gynecological examination (general) (routine) without abnormal findings Medical Equipment No Information Payers Normalized Payer Value Private Health Insurance no information Summary Purpose eClinicalWorks SubmissioneClinicalWorks SubmissioneClinicalWorks SubmissioneClinicalWorks SubmissioneClinicalWorks SubmissioneClinicalWorks SubmissioneClinicalWorks SubmissioneClinicalWorks SubmissioneClinicalWorks SubmissioneClinicalWorks SubmissioneClinicalWorks SubmissioneClinicalWorks SubmissioneClinicalWorks Submission Advance Directives Directive Response Recor ded Date/Time Advance Directives No 1:19am Health Care Power of Artists' Model No 06/19/16 1:19am Organ Donor No 06/19/16 1:19am Resuscitation Status Full Code 06/19/16 1:19am Directive Response Recor ded Date/Time Advance Directives No 1:19am Health Care Power of Artists' Model No 06/19/16 1:19am Organ Donor No 06/19/16 1:19am Directive Response Recor ded Date/Time Advance Directives No 9:17pm Health Care Power of Artists' Model No 02/24/14 9:17pm Organ Donor No 02/24/14 9:17pm Resuscitation Status Full Code 02/24/14 9:17pm Directive Response Recor ded Date Advance Directives N 09/19 2:49am Health Care Power of Artists' Model N 03/08/13 2:49am Organ Donor N 03/08/13 2 :49am Directive Response Recor ded Date/Time Advance Directives No 12:21am Health Care Power of Artists' Model No 12/14/14 12:21am Organ Donor No 12/14/14 12:21am Resuscitation Status Full Code 12/14/14 12:21am Directive Response Recor ded Date/Time Advance Directives No 12:50am Health Care Power of Artists' Model No 04/21/14 12:50am Organ Donor No 04/21/14 12:50am Resuscitation Status Full Code 04/21/14 12:50am Resuscitation Status Full Code 04/21/14 12:55am Directive Response Recor ded Date/Time Advance Directives No 12:50pm Health Care Power of Artists' Model No 03/04/14 12:50pm Organ Donor No 03/04/14 12:50pm Resuscitation Status Full Code 03/04/14 12:50pm Directive Response Recor ded Date/Time Advance Directives No 10:12pm Health Care Power of Artists' Model No 01/24/15 10:12pm Organ Donor No 01/24/15 10:12pm Resuscitation Status Full Code 01/24/15 10:12pm Directive Response Recor ded Date/Time Advance Directives No 12:23am Health Care Power of Artists' Model No 12/22/14 12:23am Organ Donor No 12/22/14 12:23am Resuscitation Status Full Code 12/22/14 12:23am Discharge Instructions No hospital discharge instructions.No hospital discharge instruction information available.No hospital discharge instructions.No hospital discharge instructions. Patient Instructions Physician Instructions New, Converted or Re-Newed RX: RX on Chart Goal/Follow Up Appt: Dr [email or web address] [facility] in 1 wk Patient Instructions: Bed rest with legs elevated Discharge Diet: Regular Diet Activity as Tolerated: No No hospital discharge instructions.No hospital discharge instructions.No hospital discharge instructions. Additional Source Comments This clinical document has been generated using [employer] software that has been certified by the Office of the National Coordinator for Health Information Technology (ONC 15.99.04.3023.Diam.31.00.0.248556) and the National Committee for [employer]ic (NCQA, as an eMeasure certified technology). FOR RECORDS PERTAINING TO PATIENTS WHO ARE OR HAVE BEEN ENROLLED IN A CHEMICAL D EPENDENCY/SUBSTANCE ABUSE PROGRAM, SOME INFORMATION MAY BE OMITTED. This clinica l summary was aggregated from multiple sources. Caution should be exercised in using it in the provision of clinical care. This summary normalizes information from multiple sources, and as a consequence, information in this document may ma terially change the coding, format and clinical context of patient data. In tim tion, data may be omitted in some cases. CLINICAL DECISIONS SHOULD BE BASED ON T HE PRIMARY CLINICAL RECORDS. [employer] provides no warranty or guara ntee of the accuracy or completeness of information in this document.The followi ng information is based on time limited clinical information UNRECOGNIZED CONTENT PROVIDED BELOW FOR UNRECOGNIZED SECTION MEDICAL (GENERAL) HISTORY Type Description Date Medical History chronic pain Medical History hypertension Medical History gastroesophageal ref lux disease (GERD) Medical History headache Medical History Migraine, unspecifie d without mention of intractable migraine without mention of status migrainosus Medical History Meralgia paresthetica Surgical History cholecystectomy Surgical History tubal ligation 1999 Surgical History salpingectomy s/p e ctopic 1989 Surgical History hysterectomy -- total 11/2012 Type Description Date Medical History chronic pain Medical History hypertension Medical History gastroesophageal ref lux disease (GERD) Medical History headache Medical History Migraine, unspecifie d without mention of intractable migraine without mention of status migrainosus Medical History Meralgia paresthetica Medical History Essential hypertension Surgical History cholecystectomy Surgical History tubal ligation 1999 Surgical History salpingectomy s/p e ctopic 1989 Surgical History hysterectomy -- total 11/2012 Type Description Date Medical History chronic pain Medical History hypertension Medical History gastroesophageal ref lux disease (GERD) Medical History headache Medical History Migraine, unspecifie d without mention of intractable migraine without mention of status migrainosus Medical History Meralgia paresthetica Medical History Essential hypertension Surgical History cholecystectomy Surgical History tubal ligation 1999 Surgical History salpingectomy s/p e ctopic 1989 Surgical History hysterectomy -- total 11/2012 Hospitalization History ER- [place] due to left knee 04/2018 UNRECOGNIZED CONTENT PROVIDED BELOW FOR UNRECOGNIZED SECTION REASON FOR VISIT Controlled Med RefillPain management (chronic), -Juan F PRITCHETT Controlled Med Refi llControlled Med RefillRash, PT reports she has a rash that started a couple of days ago on her arms but has spread to her hands and legs. PT notes it does itch , and mentions she has been at her dads the last week doing burn piles. -caro spencer MAPain management (chronic) -Juan F MAControlled Med Refill 05/08/18Controlle d Med Refill 06/05/18Controlled Med [id number] trolled med 10/23
--- OUTSIDE RECORDS SUMMARY | 2020-02-11 03:06 | XMS REPORT ---
Author Author Madeline DIXON [facility] Address [address] [place] [address] Care Team Providers Care Cryptographer Name Role Phone ZACK KAVITHA Unavailable PROBLEMS Type Condition ICD9-CM Code [id number] Code Onset Dates Condition S tatus SNOMED Code Problem Numbness and tingling in hands R20.2 Active 693227610 Problem History of abnormal cervical Pap smear Z87.898 Active 845193387 Problem Stasis dermatitis of both legs I87.2 Active 23895606 Problem Pre-diabetes R73.09 Active 6772335 02 Problem Morbid obesity due to excess calories E66.01 Active 815578176 Problem GERD (gastroesophageal reflux disease) K21.9 Active 703406433 Problem Mood disorder F39 Active 321639 05 Problem Chronic pain G89.29 Active 4764737 1 Problem BMI 45.0-49.9, adult Z68.42 Active 808424476 Problem Essential hypertension I10 Active 44879955 Problem Primary insomnia F51.01 Active 397 2004 Problem Chronic recurrent major depressive disorder F33.9 Active 8702748 ALLERGIES No Information ENCOUNTERS Encounter Location Date Diagnosis [facility] [place] [address] [facility] [id number] [address] [place] [phone] Feb, Chronic pain G89.29 [facility] [place] [address] [facility] [id number] [address] [place] [phone] 09 Jan, 2020 BMI 45.0-49.9, adult Z68.42 [facility] [place] [address] [facility] [id number] [address] [place] [address] Jan, Chronic pain G89.29 [facility] [place] [address] [facility] [id number] [address] [place] [phone] December, [facility] [place] [address] [place] [id number] [address] [place] [address] December, Essential hypertension I10 ; BMI 45.0-49.9, adult Z68.42 and Right hand tendonitis M77.9 [place] [address] [place] [id number] [place] [address] December, Chronic pain G89.29 [place] [address] [place] [id number] [place] [address] 09 Nov, 2019 BMI 45.0-49.9, adult Z68.42 and Chronic pain G89.29 [place] [address] [place] [id number] [place] [phone] Oct, BMI 45.0-49.9, adult Z68.42 and Chronic pain G89.29 [place] [address] [place] [id number] [place] [address] 10 Sep, 2019 BMI 45.0-49.9, adult Z68.42 and Chronic pain G89.29 [place] [address] [address] Sep, Essential hypertension I10 [place] [address] [address] 05 Sep, 2019 Tinea corporis B35.4 [place] [address] [phone] Aug, Acute non-recurrent maxillar y sinusitis J01.00 and Tinea corporis B35.4 [place] [address] [place] [id number] [address] [place] [phone] Aug, BMI 45.0-49.9, adult Z68.42 and Chronic pain G89.29 [place] [address] [place] [id number] [place] [address] Jul, BMI 45.0-49.9, adult Z68.42 and Chronic pain G89.29 [place] [address] [address] Jul, Pre-diabetes R73.09 [facility] [place] [address] [place] [id number] [address] [place] [address] Jun, BMI 45.0-49.9, adult Z68.42 and Chronic pain G89.29 [place] [address] [place] [id number] [address] [place] [address] Jun, Acute non-recurrent maxillar y sinusitis J01.00 [place] [address] [place] [id number] [address] [place] [address] May, Chronic pain G89.29 and BMI 45.0-49.9, adult Z68.42 [place] [address] [place] [id number] [address] [place] [address] Apr, Chronic pain G89.29 and BMI 45.0-49.9, adult Z68.42 [place] [address] [place] [id number] [place] [address] Apr, Mood disorder F39 [place] [address] [place] [id number] [place] [address] Mar, Chronic pain G89.29 and BMI 45.0-49.9, adult Z68.42 [place] [address] [place] [id number] [address] [place] [address] Mar, Morbid obesity E66.01 ; [employer] david recurrent major depressive disorder F33.9 ; Morbid obesity due to excess calories E66.01 and High risk medication use Z79.899 [place] [address] [facility] [id number] [address] [place] [address] Mar, Chronic pain G89.29 and BMI 45.0-49.9, adult Z68.42 [place] [address] [place] [id number] [place] [phone] Feb, [place] [address] [place] [id number] [place] [address] Feb, Chronic pain G89.29 and BMI 45.0-49.9, adult Z68.42 [facility] [place] [address] [facility] [id number] [address] [place] [phone] Jan, [place] [address] [facility] [id number] [address] [place] [address] Jan, Chronic pain G89.29 and BMI 45.0-49.9, adult Z68.42 [facility] [place] [address] [facility] [id number] [address] [place] [address] Jan, [place] [address] [facility] [id number] [address] [place] [address] December, Chronic pain G89.29 and BMI 45.0-49.9, adult Z68.42 [place] [address] [facility] [id number] [address] [place] [id number] 24 Nov, 2018 Morbid obesity E66.01 and Ce llulitis of leg, left L03.116 [facility] [place] [address] [facility] [id number] [address] [place] [id number] 15 Nov, 2018 Cellulitis of left lower ext remity L03.116 and Morbid obesity E66.01 [facility] [address] [facility] [id number] [address] [place] [phone] Nov, [facility] [place] [address] [facility] [id number] [address] [place] [address] Nov, Morbid obesity E66.01 and Ce llulitis of left lower extremity L03.116 [facility] [place] [address] [facility] [id number] [address] [place] [address] Nov, Chronic pain G89.29 and BMI 45.0-49.9, adult Z68.42 [place] [address] [facility] [id number] [address] [place] [address] Oct, BMI 45.0-49.9, adult Z68.42 and Chronic pain G89.29 [facility] [place] [address] [facility] [id number] [address] [place] [address] 14 Sep, 2018 BMI 45.0-49.9, adult Z68.42 and Chronic pain G89.29 [facility] [place] [address] [facility] [id number] [address] [place] [phone] 05 Sep, 2018 BMI 45.0-49.9, adult Z68.42 and Essential hypertension I10 [facility] [place] [address] [facility] [id number] [address] [place] [address] Aug, BMI 45.0-49.9, adult Z68.42 ; Chronic pain G89.29 ; Essential hypertension I10 and Primary insomnia F51.01 [place] [address] [facility] [id number] [address] [place] [address] Aug, Chronic pain G89.29 [facility] [place] [address] [facility] [id number] [address] [place] [address] Jul, Chronic pain G89.29 [facility] [place] [address] [facility] [id number] [address] [place] [address] Jun, Chronic pain G89.29 [facility] [place] [address] [facility] [id number] [address] [place] [address] May, Chronic pain G89.29 [facility] [place] [address] [facility] [id number] [address] [place] [phone] May, BMI 40.0-44.9, adult Z68.41 ; Other chronic pain G89.29 ; Pain in right hip M25.551 and Acute pain of left knee M25.562 [facility] [place] [address] [id number] [address] [place] [address] May, Chronic pain G89.29 [facility] [place] [address] [facility] [id number] [address] [place] [address] Apr, Chronic pain G89.29 [facility] [place] [address] [facility] [id number] [address] [place] [phone] Mar, Poison josep L23.7 [facility] [place] [address] [facility] [id number] [address] [place] [address] Mar, Chronic pain G89.29 [facility] [place] [address] [facility] [id number] [address] [place] [phone] Feb, Chronic pain G89.29 [facility] [place] [address] [facility] [id number] [address] [place] [address] Feb, Poison josep L23.7 [facility] [place] [address] [facility] [id number] [address] [place] [phone] Jan, Chronic pain G89.29 [place] [address] [facility] [id number] [address] [place] [address] December, Chronic pain G89.29 [facility] [place] [address] [facility] [id number] [address] [place] [phone] Nov, Long-term use of high-risk m edication Z79.899 [place] [address] [facility] [id number] [address] [place] [address] Nov, Chronic pain G89.29 [facility] [place] [address] [facility] [id number] [address] [place] [phone] Oct, Chronic pain G89.29 ; Pre-di abetes R73.09 ; Long-term use of high- risk medication Z79.899 ; Allergic rhinitis, unspecified seasonality, unspecified trigger J30.9 ; BMI 45.0-49.9, adult Z68.42 and Essential hypertension I10 [facility] [place] [address] [facility] [id number] [address] [place] [id number] Oct, Chronic pain G89.29 [place] [address] [facility] [id number] [address] [place] [address] Sep, Chronic pain G89.29 [place] [id number] [facility] [id number] [address] [place] [address] Aug, Chronic pain G89.29 [facility] [place] [address] [facility] [id number] [address] [place] [address] Jul, [facility] [place] [address] [place] [id number] [address] [place] [address] Jul, [place] [address] [place] [id number] [address] [place] [address] Jun, Chronic pain G89.29 ; BMI 45 .0-49.9, adult Z68.42 ; Pre-diabetes R73.09 ; Essential hypertension I10 ; GERD (gastroesophageal reflux disease) K21.9 ; Yeast dermatitis B37.2 ; Dysuria R30.0 ; Acute non-recurrent maxillary sinusitis J01.00 and Acute cystitis with hematuria N30.01 [place] [address] [place] [id number] [address] [place] [address] Jun, Chronic pain G89.29 [place] [address] [address] Jun, Acute non-recurrent maxillar y sinusitis J01.00 and BMI 45.0-49.9, adult Z68.42 [place] [id number] [place] [address] May, [place] [address] [place] [id number] [address] [place] [phone] May, Chronic pain G89.29 [place] [address] [place] [id number] [address] [place] [address] May, [place] [address] [place] [id number] [address] [place] [address] Apr, Chronic pain G89.29 [facility] [place] [address] [facility] [id number] [address] [place] [phone] Mar, [place] [address] [place] [id number] [address] [place] [phone] Mar, Essential hypertension I10 a nd Pre-diabetes R73.09 [place] [address] [place] [id number] [address] [place] [address] Mar, Chronic pain G89.29 ; Essent ial hypertension I10 ; Depressive disorder, not elsewhere classified F32.9 ; GERD (gastroesophageal reflux disease) K21.9 ; Pre-diabetes R73.09 ; Stasis dermatitis of both legs I87.2 and Acute non-recurrent maxillary sinusitis J01.00 [place] [address] [place] [id number] [address] [place] [address] Mar, Chronic pain G89.29 [place] [address] [place] [id number] [place] [address] Mar, Achilles tendinitis of right lower extremity M76.61 and Tinea corporis B35.4 [place] [address] [place] [id number] [address] [place] [phone] 17 Feb, 2017 Yeast dermatitis B37.2 [place] [address] [place] [id number] [address] [place] [address] Feb, Candidal intertrigo B37.2 an d Acute right ankle pain M25.571 [place] [address] [place] [id number] [address] [place] [address] Feb, Chronic pain G89.29 [place] [address] [place] [id number] [address] [place] [address] Jan, [place] [address] [place] [id number] [address] [place] [address] Jan, Chronic pain G89.29 [place] [address] [place] [id number] [place] [address] December, Chronic pain G89.29 ; Essent ial hypertension I10 ; Depressive disorder, not elsewhere classified F32.9 ; GERD (gastroesophageal reflux disease) K21.9 ; Pre-diabetes R73.09 ; Screening breast examination Z12.39 ; Stasis dermatitis of both legs I87.2 and Yeast dermatitis B37.2 [place] [address] [place] [id number] [address] [place] [address] Nov, Chronic pain G89.29 [place] [address] [address] Nov, Cellulitis of left lower ext remity L03.116 [place] [address] [address] Nov, Cellulitis of left lower ext remity L03.116 [place] [address] [address] Oct, Yeast dermatitis B37.2 [place] [address] [address] Oct, Chronic pain G89.29 [place] [address] [address] Sep, Chronic pain G89.29 ; Essent ial hypertension I10 ; Depressive disorder, not elsewhere classified F32.9 and GERD (gastroesophageal reflux disease) K21.9 [place] [address] [address] Aug, Chronic pain G89.29 [place] [address] [address] Aug, Cough R05 ; Rash R21 and Vinay h and nonspecific skin eruption R21 [address] [address] Jul, Chronic pain G89.29 [place] [address] [address] Jun, Chronic pain G89.29 ; Bronch itis J40 ; Essential hypertension I10 ; Depressive disorder, not elsewhere classified F32.9 ; GERD (gastroesophageal reflux disease) K21.9 and History of long-term use of multiple prescription drugs Z92.29 [place] [address] [address] Jun, Bronchitis J40 ; Chills R68. 83 and Sore throat J02.9 [place] [address] [facility] [id number] [address] [place] [address] May, [facility] [place] [address] [facility] [id number] [address] [place] [address] Apr, [facility] [address] [facility] [id number] [address] [place] [address] Apr, Acute mucoid otitis media of both ears H65.113 [facility] [place] [address] [facility] [id number] [address] [place] [address] 07 Apr, 2016 Yeast dermatitis B37.2 and H ematuria R31.9 [place] [address] [facility] [id number] [address] [place] [phone] Mar, [place] [address] [place] [id number] [address] [place] [address] Mar, [facility] [place] [address] [place] [id number] [place] [phone] Feb, Left anterior knee pain M25. 562 [facility] [place] [address] [facility] [id number] [address] [place] [address] Feb, Chronic pain G89.29 ; Essent ial hypertension I10 ; Depressive disorder, not elsewhere classified F32.9 ; GERD (gastroesophageal reflux disease) K21.9 and History of long-term use of multiple prescription drugs Z92.29 [place] [address] [place] [id number] [address] [place] [address] Jan, [place] [address] [place] [id number] [address] [place] [address] Jan, Well woman exam Z01.419 ; BM I 45.0-49.9, adult Z68.42 ; Family history of diabetes mellitus Z83.3 and Chronic pain G89.29 [facility] [place] [address] [facility] [id number] [address] [place] [address] December, Chronic pain G89.29 ; Essent ial hypertension I10 ; Depressive disorder, not elsewhere classified F32.9 ; GERD (gastroesophageal reflux disease) K21.9 ; 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 ; History of long-term use of multiple prescription drugs Z92.29 and Obesity E66.9 [place] [address] [address] Oct, [place] [address] [address] Oct, Well woman exam Z01.419 ; BM I 45.0-49.9, adult Z68.42 ; History of hysterectomy Z90.710 ; History of depression Z86.59 ; History of abnormal cervical Pap smear Z87.898 ; Screening for malignant neoplasm of breast Z12.39 ; Essential hypertension I10 ; GERD (gastroesophageal reflux disease) K21.9 ; Family history of diabetes mellitus Z83.3 ; Vaginal discharge N89.8 ; Skin irritation R23.8 ; Papanicolaou smear Z12.4 and No natural teeth K00.[address] [address] Oct, [address] [address] Sep, Chronic pain G89.29 ; Essent ial hypertension I10 ; GERD (gastroesophageal reflux disease) K21.9 ; 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 ; Skin infection L08.9 and History of long-term use of multiple prescription drugs Z92.[address] [address] Aug, [address] [address] Jul, [address] [address] Jul, [address] [address] Jul, Upper respiratory infection J06.[address] [address] Jul, Depressive disorder, not els ewhere classified F32.9 [facility] [place] [address] [facility] [id number] [address] [place] [address] Jul, Chronic pain 338.29 [facility] [place] [address] [facility] [id number] [address] [place] [address] Jul, Chronic pain G89.29 [facility] [place] [address] [facility] [id number] [address] [place] [phone] 16 Jun, 2015 Poison josep L23.7 [place] [address] [facility] [id number] [address] [place] [phone] Jun, Allergic contact dermatitis due to plants, except food L23.7 [facility] [place] [address] [facility] [id number] [address] [place] [phone] Jun, Essential hypertension I10 ; Chronic pain G89.29 ; GERD (gastroesophageal reflux disease) K21.9 and Numbness and tingling in hands R20.2 [facility] [place] [address] [facility] [id number] [address] [place] [address] May, [facility] [place] [address] [place] [id number] [address] [place] [address] Apr, [facility] [place] [address] [place] [id number] [address] [place] [address] Mar, [facility] [place] [address] [facility] [id number] [address] [place] [address] Feb, Abdominal pain, left lateral 789.09 and Constipation 564.00 [facility] [place] [address] [facility] [id number] [address] [place] [id number] Feb, Depressive disorder, not els ewhere classified 311 and No condition on [place] II V71.09 [facility] [place] [address] [facility] [id number] [address] [place] [id number] Feb, Spider bite 989.5 and Depres homar [address] [place] [address] [facility] [id number] [address] [place] [id number] Feb, [facility] [place] [address] [id number] [address] [place] [id number] Feb, Chronic pain 338.29 ; Arthro zonia 716.90 and GERD (gastroesophageal reflux disease) 530.81 [facility] [place] [address] [facility] [id number] [address] [place] [id number] Jan, Insect bites 919.4 [facility] [place] [address] [id number] [address] [place] [id number] Jan, [facility] [place] [address] [facility] [id number] [address] [place] [id number] December, Skin infection, bacterial 68 6.9 ; Conjunctivitis 372.30 and Insect bites 919.4 [facility] [place] [address] [facility] [id number] [address] [place] [id number] December, Chronic pain 338.29 ; Arthro zonia 716.90 ; Skin infection, bacterial 686.9 and Conjunctivitis 372.30 [facility] [place] [address] [facility] [id number] [address] [place] [id number] December, [facility] [place] [address] [facility] [id number] [address] [place] [id number] Nov, [facility] [place] [address] [facility] [id number] [address] [place] [id number] Nov, [facility] [place] [address] [facility] [id number] [address] [place] [id number] Oct, [facility] [place] [address] [facility] [id number] [address] [place] [id number] Oct, [facility] [place] [address] [facility] [id number] [address] [place] [phone] Sep, [facility] [place] [address] [facility] [id number] [address] [place] [phone] Sep, [facility] [place] [address] [facility] [id number] [address] [place] [id number] Aug, [facility] [address] [id number] [address] [place] [address], [place] [address] Aug, [facility] [address] [id number] [address] [place] [address], [place] [address] Aug, [facility] [address] [id number] [address] [place] [address], [place] [address] Aug, [facility] [address] [id number] [address] [place] [address], [place] [address] Jul, [facility] [address] [id number] [address] [place] [address], [place] [address] Jul, [facility] [address] [id number] [address] [place] [address], [place] [address] Jul, [facility] [address] [id number] [address] [place] [address], [place] [address] Jul, [facility] [address] [id number] [address] [place] [address], [place] [address] Jul, [facility] [address] [id number] [address] [place] [address], [place] [address] Jul, [facility] [address] [id number] [address] [place] [address], [place] [address] Jul, [facility] [address] [id number] [address] [place] [address], [place] [address] Jul, [facility] [address] [id number] [address] [place] [address], [place] [address] Jul, [facility] [address] [id number] [address] [place] [address], [place] [address] Jun, [facility] [address] [id number] [address] [place] [address], [place] [address] Jun, [facility] [address] [id number] [address] [place] [address], [place] [address] Jun, [facility] [address] [id number] [address] [place] [address], [place] [address] Jun, [facility] [address] [id number] [address] [place] [address], [place] [address] Jun, [facility] [address] [id number] [address] [place] [address], [place] [address] Jun, [facility] [address] [id number] [address] [place] [address], [place] [address] Jun, [facility] [address] [id number] [address] [place] [address], [place] [address] Jun, [facility] [address] [id number] [address] [place] [address], [place] [address] May, [facility] [address] [id number] [address] [place] [address], [place] [address] May, [facility] [address] [id number] [address] [place] [address], [place] [address] May, [facility] [address] [id number] [address] [place] [address], [place] [address] May, [facility] [address] [id number] [address] [place] [address], [place] [address] May, [facility] [address] [id number] [address] [place] [address], [place] [address] Apr, [facility] [address] [id number] [address] [place] [address], [place] [address] 26 Apr, 2013 [facility] [address] [id number] [address] [place] [address], [place] [address] 25 Apr, 2014 [facility] [address] [id number] [address] [place] [address], [place] [address] 25 Apr, 2014 [facility] [address] [id number] [address] [place] [address], [place] [address] 18 Apr, 2014 [facility] [address] [id number] [address] [place] [address], [place] [address] 18 Apr, 2014 [facility] [address] [id number] [facility] [place] [address] 18 Apr, 2014 [facility] [address] [id number] [address] [place] [address], [place] [address] Apr, [facility] [address] [id number] [address] [place] [address], [place] [address] Apr, [facility] [address] [id number] [address] [place] [address], [place] [address] Apr, [facility] [address] [id number] [address] [place] [address], [place] [address] Mar, [facility] [address] [id number] [address] [place] [address], [place] [address] Mar, [facility] [address] [id number] [address] [place] [address], [place] [address] Mar, [facility] [address] [id number] [address] [place] [address], [place] [address] Mar, [facility] [address] [id number] [address] [place] [address], [place] [address] Mar, [facility] [address] [id number] [address] [place] [address], [place] [address] Mar, [facility] [address] [id number] [address] [place] [address], [place] [address] Feb, [facility] [address] [id number] [address] [place] [address], [place] [address] Feb, [facility] [address] [id number] [address] [place] [address], [place] [address] Jan, [facility] [address] [id number] [address] [place] [address], [place] [address] Jan, [facility] [address] [id number] [address] [place] [address], [place] [address] Jan, [facility] [address] [id number] [address] [place] [address], [place] [address] Jan, [facility] [address] [id number] [address] [place] [address], [place] [address] December, [facility] [address] [id number] [address] [place] [address], [place] [address] December, [facility] [address] [id number] [address] [place] [address], [place] [address] December, [facility] [address] [id number] [address] [place] [address], [place] [address] December, [facility] [address] [id number] [address] [place] [address], [place] [address] December, [facility] [address] [id number] [address] [place] [address], [place] [address] December, [facility] [address] [id number] [address] [place] [address], [place] [address] December, [facility] [address] [id number] [address] [place] [address], [place] [address] December, [facility] [address] [id number] [address] [place] [address], [place] [address] December, [facility] [address] [id number] [address] [place] [address], [place] [address] Nov, [facility] [address] [id number] [address] [place] [address], [place] [address] Nov, [facility] [address] [id number] [address] [place] [address], [place] [address] Nov, [facility] [address] [id number] [address] [place] [address], [place] [address] Nov, [facility] [address] [id number] [address] [place] [address], [place] [address] Nov, [facility] [address] [id number] [address] [place] [address], [place] [address] Nov, [facility] [address] [id number] [address] [place] [address], [place] [address] Nov, [facility] [address] [id number] [address] [place] [address], [place] [address] Nov, [facility] [address] [id number] [address] [place] [address], [place] [address] Nov, [facility] [address] [id number] [address] [place] [address], [place] [address] Nov, [facility] [address] [id number] [address] [place] [address], [place] [address] Oct, [facility] [address] [id number] [address] [place] [address], [place] [address] Oct, [facility] [address] [id number] [address] [place] [address], [place] [address] Sep, [facility] [address] [id number] [address] [place] [address], [place] [address] Sep, [facility] [address] [id number] [address] [place] [address], [place] [address] Aug, [facility] [address] [id number] [address] [place] [address], [place] [address] Aug, [facility] [address] [id number] [address] [place] [address], [place] [address] Aug, [facility] [address] [id number] [address] [place] [address], [place] [address] Aug, [facility] [address] [id number] [address] [place] [address], [place] [address] Jul, [facility] [address] [id number] [address] [place] [address], [place] [address] Jul, [facility] [address] [id number] [address] [place] [address], [place] [address] Jul, [facility] [address] [id number] [address] [place] [address] Jul, [facility] [address] [id number] [address] [place] [address], [place] [address] Jun, [facility] [address] [id number] [address] [place] [address] Jun, [facility] [address] [id number] [address] [place] [address], [place] [address] May, [facility] [address] [id number] [address] [place] [address] May, [facility] [address] [id number] [address] [place] [address], [place] [address] May, [facility] [address] [id number] [address] [place] [address] May, [facility] [address] [id number] [address] [place] [address] May, [facility] [address] [id number] [address] [place] [address], [place] [address] May, [facility] [address] [id number] [address] [place] [address] 30 Apr, 2013 [facility] [address] [id number] [address] [place] [address], [place] [address] Apr, [facility] [address] [id number] [address] [place] [address] Apr, [facility] [address] [id number] [address] [place] [address] Feb, [facility] [address] [id number] [address] [place] [address], [place] [address] Jan, [facility] [address] [id number] [address] [place] [address] Jan, [facility] [address] [id number] [address] [place] [address], [place] [address] Jan, [facility] [address] [id number] [address] [place] [address], [place] [address] 14 Jan, 2013 [facility] [address] [id number] [address] [place] [address], [place] [address] December, [facility] [address] [id number] [address] [place] [address], [place] [address] December, [facility] [address] [id number] [address] [place] [address], [place] [address] Nov, [facility] [address] [id number] [address] [place] [address], [place] [address] Nov, [facility] [address] [id number] [address] [place] [address], [place] [address] Nov, [facility] [address] [id number] [address] [place] [address], [place] [address] Nov, [facility] [address] [id number] [address] [place] [address], [place] [address] Nov, [facility] [address] [id number] [address] [place] [address], [place] [address] Nov, [facility] [address] [id number] [address] [place] [address], [place] [address] Nov, [facility] [address] [id number] [address] [place] [address], [place] [address] 27 Oct, 2012 [facility] [address] [id number] [address] [place] [address], [place] [address] 18 Oct, 2012 [facility] [address] [id number] [address] [place] [address], [place] [address] 14 Oct, 2012 [facility] [address] [id number] [address] [place] [address], [place] [address] 13 Oct, 2012 [facility] [address] [id number] [address] [place] [address], [place] [address] 12 Oct, 2012 [facility] [address] [id number] [address] [place] [address], [place] [address] Oct, [facility] [address] [id number] [address] [place] [address] Oct, [facility] [place] [address] [id number] [address] [place] [address] Sep, [facility] [place] [address] [id number] [address] [place] [address] Sep, [facility] [place] [address] [id number] [address] [place] [address] Aug, [facility] [place] [address] [id number] [address] [place] [address], [place] [address] Aug, [facility] [place] [address] [id number] [address] [place] [address] Jul, [facility] [place] [address] [id number] [address] [place] [address] Jul, [facility] [place] [address] [id number] [address] [place] [address] Jul, [facility] [place] [address] [id number] [address] [place] [address] Jul, [facility] [place] [address] [id number] [address] [place] [address] Jul, [facility] [place] [address] [id number] [address] [place] [address] Jul, [facility] [place] [address] [id number] [address] [place] [address] Jul, [facility] [place] [address] [id number] [address] [place] [address] Jul, [facility] [place] [address] [id number] [address] [place] [address] Jun, [facility] [place] [address] [id number] [address] [place] [address] Jun, IMMUNIZATIONS No Known Immunizations SOCIAL HISTORY Never Assessed REASON FOR VISIT PLAN OF CARE VITAL SIGNS MEDICATIONS Unknown Medications RESULTS No Results PROCEDURES No Known procedures INSTRUCTIONS MEDICATIONS ADMINISTERED No Known Medications MEDICAL (GENERAL) HISTORY Type Description Date Medical History chronic pain Medical History hypertension Medical History gastroesophageal reflux disease (GERD) Medical History headache Medical History Migraine, unspecified withou t mention of intractable migraine without mention of status migrainosus Medical History Meralgia paresthetica Medical History Essential hypertension Surgical History cholecystectomy Surgical History tubal ligation 1999 Surgical History salpingectomy s/p ectopic 1989 Surgical History hysterectomy -- total 11/2012 Hospitalization History ER- in [place] due to left knee 8
--- OUTSIDE RECORDS SUMMARY | 2020-02-11 03:07 | XMS REPORT ---
Author Author Madeline Magdaleno Doctor Organization [facility] Address Unknown Phone Unavailable Care Team Providers Care Patron Attendant Name Role Phone Migration, Doctor Unavailable Unavailable PROBLEMS Type Condition ICD9-CM Code MVB18-IR Code Onset Dates Condition S tatus SNOMED Code Problem Numbness and tingling in hands R20.2 Active 074646801 Problem History of abnormal cervical Pap smear Z87.898 Active 587979259 Problem Stasis dermatitis of both legs I87.2 Active 10175632 Problem Pre-diabetes R73.09 Active 2536455 02 Problem Morbid obesity due to excess calories E66.01 Active 346709360 Problem GERD (gastroesophageal reflux disease) K21.9 Active 580660090 Problem Mood disorder F39 Active 873542 05 Problem Chronic pain G89.29 Active 3871888 1 Problem BMI 45.0-49.9, adult Z68.42 Active 266341990 Problem Essential hypertension I10 Active 36107165 Problem Primary insomnia F51.01 Active 397 2004 Problem Chronic recurrent major depressive disorder F33.9 Active 4458007 ALLERGIES No Information ENCOUNTERS Encounter Location Date Diagnosis [facility] [id number] [place] [id number] 09 Jan, 2020 BMI 45.0-49.9, adult Z68.42 [facility] [id number] [place] [address] Jan, Chronic pain G89.29 [facility] [id number] [place] [id number] December, [facility] [id number] [place] [address] December, Essential hypertension I10 ; BMI 45.0-49.9, adult Z68.42 and Right hand tendonitis M77.9 [facility] [id number] [place] [address] December, Chronic pain G89.29 [place] [address] [address] 09 Nov, 2019 BMI 45.0-49.9, adult Z68.42 and Chronic pain G89.29 [place] [address] [address] 05 Oct, 2019 BMI 45.0-49.9, adult Z68.42 and Chronic pain G89.29 [place] [address] [address] 10 Sep, 2019 BMI 45.0-49.9, adult Z68.42 and Chronic pain G89.29 [place] [address] [address] 10 Sep, 2019 Essential hypertension I10 [place] [address] [address] 05 Sep, 2019 Tinea corporis B35.4 [place] [address] [address] Aug, Acute non-recurrent maxillar y sinusitis J01.00 and Tinea corporis B35.4 [place] [id number] [place] [id number] 14 Aug, 2019 BMI 45.0-49.9, adult Z68.42 and Chronic pain G89.29 [place] [id number] [place] [address] Jul, BMI 45.0-49.9, adult Z68.42 and Chronic pain G89.29 [place] [address] [address] Jul, Pre-diabetes R73.09 [place] [id number] [place] [address] Jun, BMI 45.0-49.9, adult Z68.42 and Chronic pain G89.29 [facility] [address] [facility] [id number] [address] [place] [address] Jun, Acute non-recurrent maxillar y sinusitis J01.00 [facility] [address] [facility] [id number] [address] [place] [address] May, Chronic pain G89.29 and BMI 45.0-49.9, adult Z68.42 [facility] [address] [facility] [id number] [address] [place] [address] Apr, Chronic pain G89.29 and BMI 45.0-49.9, adult Z68.42 [place] [address] [facility] [id number] [address] [place] [address] Apr, Mood disorder F39 [place] [address] [facility] [id number] [address] [place] [address] Mar, Chronic pain G89.29 and BMI 45.0-49.9, adult Z68.42 [place] [address] [facility] [id number] [address] [place] [address] Mar, Morbid obesity E66.01 ; 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 ; Morbid obesity due to excess calories E66.01 and High risk medication use Z79.899 [place] [address] [facility] [id number] [address] [place] [address] Mar, Chronic pain G89.29 and BMI 45.0-49.9, adult Z68.42 [facility] [address] [facility] [id number] [address] [place] [address] Feb, [place] [address] [facility] [id number] [address] [place] [address] Feb, Chronic pain G89.29 and BMI 45.0-49.9, adult Z68.42 [place] [address] [facility] [id number] [address] [place] [address] Jan, [facility] [address] [facility] [id number] [address] [place] [address] 10 Jan, 2019 Chronic pain G89.29 and BMI 45.0-49.9, adult Z68.42 [place] [address] [address] 03 Jan, 2019 [place] [address] [address] December, Chronic pain G89.29 and BMI 45.0-49.9, adult Z68.42 [place] [address] [address] Nov, Morbid obesity E66.01 and Ce llulitis of leg, left L03.116 [place] [address] [address] 15 Nov, 2018 Cellulitis of left lower ext remity L03.116 and Morbid obesity E66.01 [facility] [address] [address] Nov, [place] [address] [address] Nov, Morbid obesity E66.01 and Ce llulitis of left lower extremity L03.116 [place] [address] [address] Nov, Chronic pain G89.29 and BMI 45.0-49.9, adult Z68.42 [place] [address] [address] Oct, BMI 45.0-49.9, adult Z68.42 and Chronic pain G89.29 [place] [address] [address] 14 Sep, 2018 BMI 45.0-49.9, adult Z68.42 and Chronic pain G89.29 [place] [address] [address] Sep, BMI 45.0-49.9, adult Z68.42 and Essential hypertension I10 [place] [address] [facility] [id number] [address] [place] [address] Aug, BMI 45.0-49.9, adult Z68.42 ; Chronic pain G89.29 ; Essential hypertension I10 and Primary insomnia F51.01 [place] [address] [facility] [id number] [address] [place] [address] Aug, Chronic pain G89.29 [place] [address] [facility] [id number] [address] [place] [address] Jul, Chronic pain G89.29 [place] [address] [facility] [id number] [address] [place] [address] Jun, Chronic pain G89.29 [place] [address] [facility] [id number] [address] [place] [address] May, Chronic pain G89.29 [place] [address] [facility] [id number] [address] [place] [address] May, BMI 40.0-44.9, adult Z68.41 ; Other chronic pain G89.29 ; Pain in right hip M25.551 and Acute pain of left knee M25.562 [place] [address] [facility] [id number] [address] [place] [address] May, Chronic pain G89.29 [place] [address] [facility] [id number] [address] [place] [address] Apr, Chronic pain G89.29 [place] [address] [facility] [id number] [address] [place] [address] Mar, Poison josep L23.7 [facility] [address] [facility] [id number] [address] [place] [address] Mar, Chronic pain G89.29 [facility] [address] [facility] [id number] [address] [place] [address] Feb, Chronic pain G89.29 [facility] [address] [facility] [id number] [address] [place] [address] Feb, Poison josep L23.7 [facility] [address] [facility] [id number] [address] [place] [address] Jan, Chronic pain G89.29 [facility] [address] [facility] [id number] [address] [place] [address] December, Chronic pain G89.29 [facility] [address] [facility] [id number] [address] [place] [address] Nov, Long-term use of high-risk m edication Z79.899 [place] [address] [facility] [id number] [address] [place] [address] Nov, Chronic pain G89.29 [place] [address] [facility] [id number] [address] [place] [address] Oct, Chronic pain G89.29 ; Pre-di abetes R73.09 ; Long-term use of high- risk medication Z79.899 ; Allergic rhinitis, unspecified seasonality, unspecified trigger J30.9 ; BMI 45.0-49.9, adult Z68.42 and Essential hypertension I10 [facility] [address] [facility] [id number] [address] [place] [address] Oct, Chronic pain G89.29 [facility] [address] [facility] [id number] [address] [place] [address] Sep, Chronic pain G89.29 [facility] [address] [facility] [id number] [address] [place] [address] Aug, Chronic pain G89.29 [facility] [address] [facility] [id number] [address] [place] [address] Jul, [place] [address] [facility] [id number] [address] [place] [address] Jul, [facility] [id number] [place] [address] Jun, Chronic pain G89.29 ; BMI 45 .0-49.9, adult Z68.42 ; Pre-diabetes R73.09 ; Essential hypertension I10 ; GERD (gastroesophageal reflux disease) K21.9 ; Yeast dermatitis B37.2 ; Dysuria R30.0 ; Acute non-recurrent maxillary sinusitis J01.00 and Acute cystitis with hematuria N30.01 [facility] [address] [facility] [id number] [address] [place] [address] Jun, Chronic pain G89.29 [place] [id number] [place] [address] Jun, Acute non-recurrent maxillar y sinusitis J01.00 and BMI 45.0-49.9, adult Z68.42 [place] [id number] [place] [address] May, [place] [address] [facility] [id number] [address] [place] [address] May, Chronic pain G89.29 [place] [address] [id number] [address] [place] [address] May, [place] [id number] [place] [address] Apr, Chronic pain G89.29 [place] [address] [facility] [id number] [address] [place] [address] Mar, [place] [id number] [place] [address] Mar, Essential hypertension I10 a nd Pre-diabetes R73.09 [place] [address] [facility] [id number] [address] [place] [address] Mar, Chronic pain G89.29 ; Essent ial hypertension I10 ; Depressive disorder, not elsewhere classified F32.9 ; GERD (gastroesophageal reflux disease) K21.9 ; Pre-diabetes R73.09 ; Stasis dermatitis of both legs I87.2 and Acute non-recurrent maxillary sinusitis J01.00 [place] [address] [facility] [id number] [address] [place] [address] Mar, Chronic pain G89.29 [place] [address] [facility] [id number] [address] [place] [address] 07 Mar, 2017 Achilles tendinitis of right lower extremity M76.61 and Tinea corporis B35.4 [place] [address] [facility] [id number] [address] [place] [address] 17 Feb, 2017 Yeast dermatitis B37.2 [place] [address] [facility] [id number] [address] [place] [address] Feb, Candidal intertrigo B37.2 an d Acute right ankle pain M25.571 [place] [id number] [place] [address] Feb, Chronic pain G89.29 [place] [id number] [place] [address] Jan, [place] [id number] [place] [address] Jan, Chronic pain G89.29 [place] [id number] [place] [address] December, Chronic pain G89.29 ; Essent ial hypertension I10 ; Depressive disorder, not elsewhere classified F32.9 ; GERD (gastroesophageal reflux disease) K21.9 ; Pre-diabetes R73.09 ; Screening breast examination Z12.39 ; Stasis dermatitis of both legs I87.2 and Yeast dermatitis B37.2 [place] [address] [facility] [id number] [address] [place] [address] Nov, Chronic pain G89.29 [place] [id number] [place] [address] Nov, Cellulitis of left lower ext remity L03.116 [place] [id number] [place] [address] Nov, Cellulitis of left lower ext remity L03.116 [place] [id number] [place] [address] Oct, Yeast dermatitis B37.2 [place] [id number] [place] [address] Oct, Chronic pain G89.29 [place] [id number] [place] [address] Sep, Chronic pain G89.29 ; Essent ial hypertension I10 ; Depressive disorder, not elsewhere classified F32.9 and GERD (gastroesophageal reflux disease) K21.9 [place] [address] [address] Aug, Chronic pain G89.29 [place] [address] [address] Aug, Cough R05 ; Rash R21 and Vinay h and nonspecific skin eruption R21 [place] [address] [address] Jul, Chronic pain G89.29 [place] [id number] [place] [address] Jun, Chronic pain G89.29 ; Bronch itis J40 ; Essential hypertension I10 ; Depressive disorder, not elsewhere classified F32.9 ; GERD (gastroesophageal reflux disease) K21.9 and History of long-term use of multiple prescription drugs Z92.29 [place] [id number] [place] [address] Jun, Bronchitis J40 ; Chills R68. 83 and Sore throat J02.9 [place] [id number] [place] [address] May, [place] [id number] [place] [address] Apr, [facility] [id number] [place] [address] Apr, Acute mucoid otitis media of both ears H65.113 [place] [address] [address] Apr, Yeast dermatitis B37.2 and H ematuria R31.9 [facility] [address] [address] Mar, [facility] [address] [address] Mar, [facility] [address] [address] Feb, Left anterior knee pain M25. 562 [place] [address] [address] Feb, Chronic pain G89.29 ; Essent ial hypertension I10 ; Depressive disorder, not elsewhere classified F32.9 ; GERD (gastroesophageal reflux disease) K21.9 and History of long-term use of multiple prescription drugs Z92.29 [place] [address] [address] Jan, [place] [address] [address] Jan, Well woman exam Z01.419 ; BM I 45.0-49.9, adult Z68.42 ; Family history of diabetes mellitus Z83.3 and Chronic pain G89.29 [place] [address] [address] December, Chronic pain G89.29 ; Essent ial hypertension I10 ; Depressive disorder, not elsewhere classified F32.9 ; GERD (gastroesophageal reflux disease) K21.9 ; 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 ; History of long-term use of multiple prescription drugs Z92.29 and Obesity E66.9 [facility] [address] [address] Oct, [place] [id number] [place] [address] Oct, Well woman exam Z01.419 ; BM [...] smear Z12.4 and No natural teeth K00.0 [place] [address] [address] Oct, [place] [address] [address] Sep, Chronic pain G89.29 ; Essent ial hypertension I10 ; GERD (gastroesophageal reflux disease) K21.9 ; 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 ; Skin infection L08.9 and History of long-term use of multiple prescription drugs Z92.29 [place] [address] [address] Aug, [place] [address] [address] Jul, [place] [address] [address] Jul, [place] [address] [address] Jul, Upper respiratory infection J06.[address] [address] Jul, Depressive disorder, not els ewhere classified F32.[address] [address] Jul, Chronic pain 338.29 [place] [address] [address] Jul, Chronic pain G89.29 [place] [address] [address] 16 Jun, 2015 Poison josep L23.7 [place] [id number] [place] [address] Jun, Allergic contact dermatitis due to plants, except food L23.7 [place] [address] [place] [address] [id number] [place] [address] Jun, Essential hypertension I10 ; Chronic pain G89.29 ; GERD (gastroesophageal reflux disease) K21.9 and Numbness and tingling in hands R20.2 [place] [address] [address] May, [place] [address] [address] Apr, [place] [address] [address] Mar, [place] [address] [address] Feb, Abdominal pain, left lateral 789.09 and Constipation 564.[address] [address] Feb, Depressive disorder, not els ewhere classified 311 and No condition on [place] II V71.09 [place] [address] [address] Feb, Spider bite 989.5 and Depres homar 311 [place] [address] [place] [id number] [place] [address] Feb, [place] [address] [address] Feb, Chronic pain 338.29 ; Arthro zonia 716.90 and GERD (gastroesophageal reflux disease) 530.81 [facility] [address] [id number] [address] [place] [address] 15 Jan, 2015 Insect bites 919.4 [facility] [address] [id number] [address] [place] [address] 08 Jan, 2015 [facility] [address] [id number] [address] [place] [address] December, Skin infection, bacterial 68 6.9 ; Conjunctivitis 372.30 and Insect bites 919.4 [facility] [address] [id number] [address] [place] [address] December, Chronic pain 338.29 ; Arthro zonia 716.90 ; Skin infection, bacterial 686.9 and Conjunctivitis 372.30 [facility] [address] [facility] [id number] [address] [place] [address] December, [facility] [address] [id number] [address] [place] [address] Nov, [facility] [address] [id number] [address] [place] [address] Nov, [facility] [address] [id number] [address] [place] [address] Oct, [facility] [address] [facility] [id number] [address] [place] [address] Oct, [facility] [address] [id number] [address] [place] [address] Sep, [facility] [address] [id number] [address] [place] [address] Sep, [facility] [address] [id number] [address] [place] [address] Aug, [facility] [address] [id number] [address] [place] [address] Aug, [facility] [address] [id number] [address] [place] [address] Aug, [facility] [address] [id number] [address] [place] [address], [place] [address] Aug, [facility] [address] [id number] [address] [place] [address], [place] [address] Jul, [facility] [address] [id number] [address] [place] [address], [place] [address] Jul, [facility] [address] [id number] [address] [place] [address], [place] [address] Jul, [facility] [address] [id number] [address] [place] [address], [place] [address] Jul, [facility] [address] [id number] [address] [place] [address], [place] [address] Jul, [facility] [address] [id number] [address] [place] [address], [place] [address] Jul, [facility] [address] [id number] [address] [place] [address], [place] [address] Jul, [facility] [address] [id number] [address] [place] [address], [place] [address] Jul, [facility] [address] [id number] [address] [place] [address], [place] [address] Jul, [facility] [address] [id number] [address] [place] [address], [place] [address] Jun, [facility] [address] [id number] [address] [place] [address], [place] [address] Jun, [facility] [address] [id number] [address] [place] [address], [place] [address] Jun, [facility] [address] [id number] [address] [place] [address], [place] [address] Jun, [facility] [address] [id number] [address] [place] [address], [place] [address] Jun, [facility] [address] [id number] [address] [place] [address], [place] [address] Jun, [facility] [address] [id number] [address] [place] [address], [place] [address] Jun, [facility] [address] [id number] [address] [place] [address], [place] [address] Jun, [facility] [address] [id number] [address] [place] [address], [place] [address] May, [facility] [address] [id number] [address] [place] [address], [place] [address] May, [facility] [address] [id number] [address] [place] [address], [place] [address] May, [facility] [address] [id number] [address] [place] [address], [place] [address] May, [facility] [address] [id number] [address] [place] [address], [place] [address] May, [facility] [address] [id number] [address] [place] [address], [place] [address] 26 Apr, 2014 [facility] [address] [id number] [address] [place] [address], [place] [address] 26 Apr, 2014 [facility] [address] [id number] [address] [place] [address], [place] [address] 25 Apr, 2014 [facility] [address] [id number] [address] [place] [address], [place] [address] 25 Apr, 2013 [facility] [address] [id number] [address] [place] [address], [place] [address] 18 Sep, 2013 [facility] [address] [id number] [address] [place] [address], [place] [address] 18 Apr, 2013 [facility] [address] [id number] [address] [place] [address], [place] [address] 18 Apr, 2013 [facility] [address] [id number] [address] [place] [address], [place] [address] Apr, [facility] [address] [id number] [facility] [place] [address] Apr, [facility] [address] [id number] [address] [place] [address], [place] [address] Apr, [facility] [address] [id number] [address] [place] [address], [place] [address] Mar, [facility] [address] [id number] [address] [place] [address], [place] [address] Mar, [facility] [address] [id number] [address] [place] [address], [place] [address] Mar, [facility] [address] [id number] [address] [place] [address], [place] [address] Mar, [facility] [address] [id number] [address] [place] [address], [place] [address] Mar, [facility] [address] [id number] [address] [place] [address], [place] [address] Mar, [facility] [address] [id number] [address] [place] [address], [place] [address] Feb, [facility] [address] [id number] [address] [place] [address], [place] [address] Feb, [facility] [address] [id number] [address] [place] [address], [place] [address] Jan, [facility] [address] [id number] [address] [place] [address], [place] [address] Jan, [facility] [address] [id number] [address] [place] [address], [place] [address] Jan, [facility] [address] [id number] [address] [place] [address], [place] [address] Jan, [facility] [address] [id number] [address] [place] [address], [place] [address] December, [facility] [address] [id number] [address] [place] [address], [place] [address] December, [facility] [address] [id number] [address] [place] [address], [place] [address] December, [facility] [address] [id number] [address] [place] [address], [place] [address] December, [facility] [address] [id number] [address] [place] [address], [place] [address] December, [facility] [address] [id number] [address] [place] [address], [place] [address] December, [facility] [address] [id number] [address] [place] [address], [place] [address] December, [facility] [address] [id number] [address] [place] [address], [place] [address] December, [facility] [address] [id number] [address] [place] [address], [place] [address] December, [facility] [address] [id number] [address] [place] [address], [place] [address] Nov, [facility] [address] [id number] [address] [place] [address], [place] [address] Nov, [facility] [address] [id number] [address] [place] [address], [place] [address] Nov, [facility] [address] [id number] [address] [place] [address], [place] [address] Nov, [facility] [address] [id number] [address] [place] [address], [place] [address] Nov, [facility] [address] [id number] [address] [place] [address], [place] [address] Nov, [facility] [address] [id number] [address] [place] [address], [place] [address] Nov, [facility] [address] [id number] [address] [place] [address], [place] [address] Nov, [facility] [address] [id number] [address] [place] [address], [place] [address] Nov, [facility] [address] [id number] [address] [place] [address], [place] [address] Nov, [facility] [address] [id number] [address] [place] [address], [place] [address] Oct, [facility] [address] [id number] [address] [place] [address], [place] [address] Oct, [facility] [address] [id number] [address] [place] [address], [place] [address] Sep, [facility] [address] [id number] [address] [place] [address], [place] [address] Sep, [facility] [address] [id number] [address] [place] [address], [place] [address] Aug, [facility] [address] [id number] [address] [place] [address], [place] [address] Aug, [facility] [address] [id number] [address] [place] [address], [place] [address] Aug, [facility] [address] [id number] [address] [place] [address], [place] [address] Aug, [facility] [address] [id number] [address] [place] [address], [place] [address] Jul, [facility] [address] [id number] [address] [place] [address], [place] [address] Jul, [facility] [address] [id number] [address] [place] [address], [place] [address] Jul, [facility] [address] [id number] [address] [place] [address], [place] [address] Jul, [facility] [address] [id number] [address] [place] [address], [place] [address] Jun, [facility] [address] [id number] [address] [place] [address] Jun, [facility] [address] [id number] [address] [place] [address], [place] [address] May, [facility] [address] [id number] [address] [place] [address] May, [facility] [address] [id number] [address] [place] [address], [place] [address] May, [facility] [address] [id number] [address] [place] [address] May, [facility] [address] [id number] [address] [place] [address], [place] [address] May, [facility] [address] [id number] [address] [place] [address], [place] [address] May, [facility] [address] [id number] [address] [place] [address] Apr, [facility] [address] [id number] [address] [place] [address], [place] [address] Apr, [facility] [address] [id number] [address] [place] [address] Apr, [facility] [address] [id number] [address] [place] [address] Feb, [facility] [address] [id number] [address] [place] [address] Jan, [facility] [address] [id number] [address] [place] [address] Jan, [facility] [address] [id number] [address] [place] [address] Jan, [facility] [address] [id number] [address] [place] [address] Jan, [facility] [address] [id number] [address] [place] [address], [place] [address] December, [facility] [address] [id number] [address] [place] [address], [place] [address] December, [facility] [address] [id number] [address] [place] [address], [place] [address] 24 Nov, 2012 [facility] [address] [id number] [address] [place] [address], [place] [address] Nov, [facility] [address] [id number] [address] [place] [address], [place] [address] Nov, [facility] [address] [id number] [address] [place] [address], [place] [address] Nov, [facility] [address] [id number] [address] [place] [address], [place] [address] Nov, [facility] [address] [id number] [address] [place] [address], [place] [address] Nov, [facility] [address] [id number] [address] [place] [address], [place] [address] Nov, [facility] [address] [id number] [address] [place] [address], [place] [address] 27 Oct, 2012 [facility] [address] [id number] [address] [place] [address], [place] [address] 18 Oct, 2012 [facility] [address] [id number] [address] [place] [address], [place] [address] 14 Oct, 2012 [facility] [address] [id number] [address] [place] [address], [place] [address] 13 Oct, 2012 [facility] [address] [id number] [address] [place] [address], [place] [address] 12 Oct, 2012 [facility] [address] [id number] [address] [place] [address], [place] [address] Oct, [facility] [address] [id number] [address] [place] [address], [place] [address] 08 Oct, 2012 [facility] [address] [id number] [address] [place] [address], [place] [address] Sep, [facility] [address] [id number] [address] [place] [address] Sep, [facility] [address] [id number] [address] [place] [address] Aug, [facility] [address] [id number] [address] [place] [address] Aug, [facility] [address] [id number] [address] [place] [address] Jul, [facility] [address] [id number] [address] [place] [address] Jul, [facility] [address] [id number] [address] [place] [address] Jul, [facility] [address] [id number] [address] [place] [address] Jul, [facility] [address] [id number] [address] [place] [address] Jul, [facility] [address] [id number] [address] [place] [address] Jul, [facility] [address] [id number] [address] [place] [address] Jul, [facility] [address] [id number] [address] [place] [address] Jul, [facility] [address] [id number] [address] [place] [address] Jun, [facility] [address] [id number] [address] [place] [address] Jun, IMMUNIZATIONS No Known Immunizations SOCIAL HISTORY [...] -- total 11/2012 Hospitalization History ER- in [place] due to left knee 8
--- OUTSIDE RECORDS SUMMARY | 2020-02-11 03:07 | XMS REPORT ---
Author Author Madeline Magdaleno Doctor Organization [facility] Address Unknown Phone Unavailable Care Team Providers Care Compressed Yeast Supervisor Name Role Phone Migration, Doctor Unavailable Unavailable PROBLEMS Type Condition ICD9-CM Code XTP70-VQ Code Onset Dates Condition S tatus SNOMED Code Problem Numbness and tingling in hands R20.2 Active 376119349 Problem History of abnormal cervical Pap smear Z87.898 Active 920751590 Problem Stasis dermatitis of both legs I87.2 Active 52842170 Problem Pre-diabetes R73.09 Active 9110453 02 Problem Morbid obesity due to excess calories E66.01 Active 108745198 Problem GERD (gastroesophageal reflux disease) K21.9 Active 079297562 Problem Mood disorder F39 Active 159561 05 Problem Chronic pain G89.29 Active 1092398 1 Problem BMI 45.0-49.9, adult Z68.42 Active 245501098 Problem Essential hypertension I10 Active 48665988 Problem Primary insomnia F51.01 Active 397 2004 Problem Chronic recurrent major depressive disorder F33.9 Active 8508588 ALLERGIES No Information ENCOUNTERS Encounter Location Date Diagnosis [facility] [id number] [place] [id number] 09 Jan, 2020 BMI 45.0-49.9, adult Z68.42 [facility] [id number] [place] [id number] 02 Jan, 2020 Chronic pain G89.29 [facility] [id number] [place] [address] December, [facility] [id number] [place] [address] December, Essential hypertension I10 ; BMI 45.0-49.9, adult Z68.42 and Right hand tendonitis M77.9 [facility] [id number] [place] [address] December, Chronic pain G89.29 [place] [address] [address] 09 Nov, 2019 BMI 45.0-49.9, adult Z68.42 and Chronic pain G89.29 [place] [address] [address] 05 Oct, 2019 BMI 45.0-49.9, adult Z68.42 and Chronic pain G89.29 [place] [address] [address] 10 Sep, 2019 BMI 45.0-49.9, adult Z68.42 and Chronic pain G89.29 [place] [address] [address] 10 Sep, 2019 Essential hypertension I10 [place] [address] [address] 05 Sep, 2019 Tinea corporis B35.4 [place] [address] [address] Aug, Acute non-recurrent maxillar y sinusitis J01.00 and Tinea corporis B35.4 [place] [id number] [place] [id number] 14 Aug, 2019 BMI 45.0-49.9, adult Z68.42 and Chronic pain G89.29 [place] [id number] [place] [address] Jul, BMI 45.0-49.9, adult Z68.42 and Chronic pain G89.29 [place] [address] [address] Jul, Pre-diabetes R73.09 [place] [id number] [place] [address] Jun, BMI 45.0-49.9, adult Z68.42 and Chronic pain G89.29 [facility] [address] [facility] [id number] [place] [address] Jun, Acute non-recurrent maxillar y sinusitis J01.00 [facility] [address] [facility] [id number] [place] [address] May, Chronic pain G89.29 and BMI 45.0-49.9, adult Z68.42 [facility] [address] [facility] [id number] [place] [address] Apr, Chronic pain G89.29 and BMI 45.0-49.9, adult Z68.42 [place] [address] [facility] [id number] [place] [address] Apr, Mood disorder F39 [place] [address] [facility] [id number] [place] [address] Mar, Chronic pain G89.29 and BMI 45.0-49.9, adult Z68.42 [place] [address] [facility] [id number] [place] [address] Mar, Morbid obesity E66.01 ; [employer] [place] Attendant david recurrent major depressive disorder F33.9 ; Morbid obesity due to excess calories E66.01 and High risk medication use Z79.899 [place] [address] [facility] [id number] [place] [address] Mar, Chronic pain G89.29 and BMI 45.0-49.9, adult Z68.42 [facility] [address] [facility] [id number] [place] [address] Feb, [place] [address] [facility] [id number] [place] [address] Feb, Chronic pain G89.29 and BMI 45.0-49.9, adult Z68.42 [place] [address] [facility] [id number] [place] [address] Jan, [facility] [address] [facility] [id number] [place] [address] 10 Jan, 2019 Chronic pain G89.29 and BMI 45.0-49.9, adult Z68.42 [place] [address] [address] 03 Jan, 2019 [place] [address] [address] December, Chronic pain G89.29 and BMI 45.0-49.9, adult Z68.42 [place] [address] [address] Nov, Morbid obesity E66.01 and Ce llulitis of leg, left L03.116 [place] [address] [address] 15 Nov, 2018 Cellulitis of left lower ext remity L03.116 and Morbid obesity E66.01 [facility] [address] [address] Nov, [place] [address] [address] Nov, Morbid obesity E66.01 and Ce llulitis of left lower extremity L03.116 [place] [address] [address] Nov, Chronic pain G89.29 and BMI 45.0-49.9, adult Z68.42 [place] [address] [address] Oct, BMI 45.0-49.9, adult Z68.42 and Chronic pain G89.29 [place] [address] [address] 14 Sep, 2018 BMI 45.0-49.9, adult Z68.42 and Chronic pain G89.29 [place] [address] [address] Sep, BMI 45.0-49.9, adult Z68.42 and Essential hypertension I10 [place] [address] [facility] [id number] [place] [address] Aug, BMI 45.0-49.9, adult Z68.42 ; Chronic pain G89.29 ; Essential hypertension I10 and Primary insomnia F51.01 [place] [address] [facility] [id number] [place] [address] Aug, Chronic pain G89.29 [place] [address] [facility] [id number] [place] [address] Jul, Chronic pain G89.29 [place] [address] [facility] [id number] [place] [address] Jun, Chronic pain G89.29 [place] [address] [facility] [id number] [place] [address] May, Chronic pain G89.29 [place] [address] [facility] [id number] [place] [address] May, BMI 40.0-44.9, adult Z68.41 ; Other chronic pain G89.29 ; Pain in right hip M25.551 and Acute pain of left knee M25.562 [place] [address] [facility] [id number] [place] [address] May, Chronic pain G89.29 [place] [address] [facility] [id number] [place] [address] Apr, Chronic pain G89.29 [place] [address] [facility] [id number] [place] [address] Mar, Poison josep L23.7 [facility] [address] [facility] [id number] [place] [address] Mar, Chronic pain G89.29 [facility] [address] [facility] [id number] [place] [address] Feb, Chronic pain G89.29 [facility] [address] [facility] [id number] [place] [address] Feb, Poison josep L23.7 [facility] [address] [facility] [id number] [place] [address] Jan, Chronic pain G89.29 [facility] [address] [facility] [id number] [place] [address] December, Chronic pain G89.29 [facility] [address] [facility] [id number] [place] [address] Nov, Long-term use of high-risk m edication Z79.899 [place] [address] [facility] [id number] [place] [address] Nov, Chronic pain G89.29 [place] [address] [facility] [id number] [place] [address] Oct, Chronic pain G89.29 ; Pre-di abetes R73.09 ; Long-term use of high- risk medication Z79.899 ; Allergic rhinitis, unspecified seasonality, unspecified trigger J30.9 ; BMI 45.0-49.9, adult Z68.42 and Essential hypertension I10 [facility] [address] [facility] [id number] [place] [address] Oct, Chronic pain G89.29 [facility] [address] [facility] [id number] [place] [address] Sep, Chronic pain G89.29 [facility] [address] [facility] [id number] [place] [address] Aug, Chronic pain G89.29 [facility] [address] [facility] [id number] [place] [address] Jul, [place] [address] [facility] [id number] [place] [address] Jul, [facility] [id number] [place] [address] Jun, Chronic pain G89.29 ; BMI 45 .0-49.9, adult Z68.42 ; Pre-diabetes R73.09 ; Essential hypertension I10 ; GERD (gastroesophageal reflux disease) K21.9 ; Yeast dermatitis B37.2 ; Dysuria R30.0 ; Acute non-recurrent maxillary sinusitis J01.00 and Acute cystitis with hematuria N30.01 [facility] [address] [facility] [id number] [place] [address] Jun, Chronic pain G89.29 [place] [id number] [place] [address] Jun, Acute non-recurrent maxillar y sinusitis J01.00 and BMI 45.0-49.9, adult Z68.42 [place] [id number] [place] [address] May, [place] [address] [facility] [id number] [place] [address] May, Chronic pain G89.29 [place] [address] [id number] [address] [place] [address] May, [place] [id number] [place] [address] Apr, Chronic pain G89.29 [place] [address] [facility] [id number] [place] [address] Mar, [place] [id number] [place] [address] Mar, Essential hypertension I10 a nd Pre-diabetes R73.09 [place] [address] [facility] [id number] [place] [address] Mar, Chronic pain G89.29 ; Essent ial hypertension I10 ; Depressive disorder, not elsewhere classified F32.9 ; GERD (gastroesophageal reflux disease) K21.9 ; Pre-diabetes R73.09 ; Stasis dermatitis of both legs I87.2 and Acute non-recurrent maxillary sinusitis J01.00 [place] [address] [facility] [id number] [place] [address] Mar, Chronic pain G89.29 [place] [address] [facility] [id number] [place] [address] 07 Mar, 2017 Achilles tendinitis of right lower extremity M76.61 and Tinea corporis B35.4 [place] [address] [facility] [id number] [place] [address] 17 Feb, 2017 Yeast dermatitis B37.2 [place] [address] [facility] [id number] [place] [address] Feb, Candidal intertrigo B37.2 an d Acute right ankle pain M25.571 [place] [id number] [place] [address] Feb, Chronic pain G89.29 [place] [id number] [place] [address] Jan, [place] [id number] [place] [address] Jan, Chronic pain G89.29 [place] [id number] [place] [address] December, Chronic pain G89.29 ; Essent ial hypertension I10 ; Depressive disorder, not elsewhere classified F32.9 ; GERD (gastroesophageal reflux disease) K21.9 ; Pre-diabetes R73.09 ; Screening breast examination Z12.39 ; Stasis dermatitis of both legs I87.2 and Yeast dermatitis B37.2 [place] [address] [facility] [id number] [place] [address] Nov, Chronic pain G89.29 [place] [id number] [place] [address] Nov, Cellulitis of left lower ext remity L03.116 [place] [id number] [place] [address] Nov, Cellulitis of left lower ext remity L03.116 [place] [id number] [place] [address] Oct, Yeast dermatitis B37.2 [place] [id number] [place] [address] Oct, Chronic pain G89.29 [place] [id number] [place] [address] Sep, Chronic pain G89.29 ; Essent ial hypertension I10 ; Depressive disorder, not elsewhere classified F32.9 and GERD (gastroesophageal reflux disease) K21.9 [place] [address] [address] Aug, Chronic pain G89.29 [place] [address] [address] Aug, Cough R05 ; Rash R21 and Vinay h and nonspecific skin eruption R21 [place] [address] [address] Jul, Chronic pain G89.29 [place] [id number] [place] [address] Jun, Chronic pain G89.29 ; Bronch itis J40 ; Essential hypertension I10 ; Depressive disorder, not elsewhere classified F32.9 ; GERD (gastroesophageal reflux disease) K21.9 and History of long-term use of multiple prescription drugs Z92.29 [place] [id number] [place] [address] Jun, Bronchitis J40 ; Chills R68. 83 and Sore throat J02.9 [place] [id number] [place] [address] May, [place] [id number] [place] [address] Apr, [facility] [id number] [place] [address] Apr, Acute mucoid otitis media of both ears H65.113 [place] [address] [address] Apr, Yeast dermatitis B37.2 and H ematuria R31.9 [facility] [address] [address] Mar, [facility] [address] [address] Mar, [facility] [address] [address] Feb, Left anterior knee pain M25. 562 [place] [address] [address] Feb, Chronic pain G89.29 ; Essent ial hypertension I10 ; Depressive disorder, not elsewhere classified F32.9 ; GERD (gastroesophageal reflux disease) K21.9 and History of long-term use of multiple prescription drugs Z92.29 [place] [address] [address] Jan, [place] [address] [address] Jan, Well woman exam Z01.419 ; BM I 45.0-49.9, adult Z68.42 ; Family history of diabetes mellitus Z83.3 and Chronic pain G89.29 [place] [address] [address] December, Chronic pain G89.29 ; Essent ial hypertension I10 ; Depressive disorder, not elsewhere classified F32.9 ; GERD (gastroesophageal reflux disease) K21.9 ; 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 ; History of long-term use of multiple prescription drugs Z92.29 and Obesity E66.9 [facility] [address] [address] Oct, [place] [id number] [place] [address] Oct, Well woman exam Z01.419 ; BM [...] smear Z12.4 and No natural teeth K00.0 [place] [address] [address] Oct, [place] [address] [address] Sep, Chronic pain G89.29 ; Essent ial hypertension I10 ; GERD (gastroesophageal reflux disease) K21.9 ; 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 ; Skin infection L08.9 and History of long-term use of multiple prescription drugs Z92.29 [place] [address] [address] Aug, [place] [address] [address] Jul, [place] [address] [address] Jul, [place] [address] [address] Jul, Upper respiratory infection J06.[address] [address] Jul, Depressive disorder, not els ewhere classified F32.[address] [address] Jul, Chronic pain 338.29 [place] [address] [address] Jul, Chronic pain G89.29 [place] [address] [address] 16 Jun, 2015 Poison josep L23.7 [place] [id number] [place] [address] Jun, Allergic contact dermatitis due to plants, except food L23.7 [place] [id number] [place] [address] Jun, Essential hypertension I10 ; Chronic pain G89.29 ; GERD (gastroesophageal reflux disease) K21.9 and Numbness and tingling in hands R20.2 [place] [address] [address] May, [place] [address] [address] Apr, [place] [address] [address] Mar, [place] [address] [address] Feb, Abdominal pain, left lateral 789.09 and Constipation 564.[address] [address] Feb, Depressive disorder, not els ewhere classified 311 and No condition on Capac II V71.09 [place] [address] [address] Feb, Spider bite 989.5 and Depres homar 311 [place] [id number] [place] [address] Feb, [place] [address] [address] Feb, Chronic pain 338.29 ; Arthro zonia 716.90 and GERD (gastroesophageal reflux disease) 530.81 [facility] [address] [id number] [address] [place] [address] 15 Jan, 2015 Insect bites 919.4 [facility] [address] [id number] [address] [place] [address] 08 Jan, 2015 [facility] [address] [id number] [address] [place] [address] December, Skin infection, bacterial 68 6.9 ; Conjunctivitis 372.30 and Insect bites 919.4 [facility] [address] [id number] [address] [place] [address] December, Chronic pain 338.29 ; Arthro zonia 716.90 ; Skin infection, bacterial 686.9 and Conjunctivitis 372.30 [facility] [address] [facility] [id number] [place] [address] December, [facility] [address] [id number] [address] [place] [address] Nov, [facility] [address] [id number] [address] [place] [address] Nov, [facility] [address] [id number] [address] [place] [address] Oct, [facility] [address] [facility] [id number] [place] [address] Oct, [facility] [address] [id number] [address] [place] [address] Sep, [facility] [address] [id number] [address] [place] [address] Sep, [facility] [address] [id number] [address] [place] [address] Aug, [facility] [address] [id number] [address] [place] [address] Aug, [facility] [address] [id number] [address] [place] [address] Aug, [facility] [address] [id number] [address] [place] [address], [place] [address] Aug, [facility] [address] [id number] [address] [place] [address], [place] [address] Jul, [facility] [address] [id number] [address] [place] [address], [place] [address] Jul, [facility] [address] [id number] [address] [place] [address], [place] [address] Jul, [facility] [address] [id number] [address] [place] [address], [place] [address] Jul, [facility] [address] [id number] [address] [place] [address], [place] [address] Jul, [facility] [address] [id number] [address] [place] [address], [place] [address] Jul, [facility] [address] [id number] [address] [place] [address], [place] [address] Jul, [facility] [address] [id number] [address] [place] [address], [place] [address] Jul, [facility] [address] [id number] [address] [place] [address], [place] [address] Jul, [facility] [address] [id number] [address] [place] [address], [place] [address] Jun, [facility] [address] [id number] [address] [place] [address], [place] [address] Jun, [facility] [address] [id number] [address] [place] [address], [place] [address] Jun, [facility] [address] [id number] [address] [place] [address], [place] [address] Jun, [facility] [address] [id number] [address] [place] [address], [place] [address] Jun, [facility] [address] [id number] [address] [place] [address], [place] [address] Jun, [facility] [address] [id number] [address] [place] [address], [place] [address] Jun, [facility] [address] [id number] [address] [place] [address], [place] [address] Jun, [facility] [address] [id number] [address] [place] [address], [place] [address] May, [facility] [address] [id number] [address] [place] [address], [place] [address] May, [facility] [address] [id number] [address] [place] [address], [place] [address] May, [facility] [address] [id number] [address] [place] [address], [place] [address] May, [facility] [address] [id number] [address] [place] [address], [place] [address] May, [facility] [address] [id number] [address] [place] [address], [place] [address] 26 Apr, 2014 [facility] [address] [id number] [address] [place] [address], [place] [address] 26 Apr, 2014 [facility] [address] [id number] [address] [place] [address], [place] [address] 25 Apr, 2014 [facility] [address] [id number] [address] [place] [address], [place] [address] 25 Apr, 2013 [facility] [address] [id number] [address] [place] [address], [place] [address] 18 Sep, 2013 [facility] [address] [id number] [address] [place] [address], [place] [address] 18 Apr, 2013 [facility] [address] [id number] [address] [place] [address], [place] [address] 18 Apr, 2013 [facility] [address] [id number] [address] [place] [address], [place] [address] Apr, [facility] [address] [id number] [facility] [place] [address] Apr, [facility] [address] [id number] [address] [place] [address], [place] [address] Apr, [facility] [address] [id number] [address] [place] [address], [place] [address] Mar, [facility] [address] [id number] [address] [place] [address], [place] [address] Mar, [facility] [address] [id number] [address] [place] [address], [place] [address] Mar, [facility] [address] [id number] [address] [place] [address], [place] [address] Mar, [facility] [address] [address] [id number] [address] [place] [address], [place] [address] Mar, [facility] [address] [id number] [address] [place] [address], [place] [address] Mar, [facility] [address] [id number] [address] [place] [address], [place] [address] Feb, [facility] [address] [id number] [address] [place] [address], [place] [address] Feb, [facility] [address] [id number] [address] [place] [address], [place] [address] Jan, [facility] [address] [id number] [address] [place] [address], [place] [address] Jan, [facility] [address] [id number] [address] [place] [address], [place] [address] Jan, [facility] [address] [id number] [address] [place] [address], [place] [address] Jan, [facility] [address] [id number] [address] [place] [address], [place] [address] December, [facility] [address] [id number] [address] [place] [address], [place] [address] December, [facility] [address] [id number] [address] [place] [address], [place] [address] December, [facility] [address] [id number] [address] [place] [address], [place] [address] December, [facility] [address] [id number] [address] [place] [address], [place] [address] December, [facility] [address] [id number] [address] [place] [address], [place] [address] December, [facility] [address] [id number] [address] [place] [address], [place] [address] December, [facility] [address] [id number] [address] [place] [address], [place] [address] December, [facility] [address] [id number] [address] [place] [address], [place] [address] December, [facility] [address] [id number] [address] [place] [address], [place] [address] Nov, [facility] [address] [id number] [address] [place] [address], [place] [address] Nov, [facility] [address] [id number] [address] [place] [address], [place] [address] Nov, [facility] [address] [id number] [address] [place] [address], [place] [address] Nov, [facility] [address] [id number] [address] [place] [address], [place] [address] Nov, [facility] [address] [id number] [address] [place] [address], [place] [address] Nov, [facility] [address] [id number] [address] [place] [address], [place] [address] Nov, [facility] [address] [id number] [address] [place] [address], [place] [address] Nov, [facility] [address] [id number] [address] [place] [address], [place] [address] Nov, [facility] [address] [id number] [address] [place] [address], [place] [address] Nov, [facility] [address] [id number] [address] [place] [address], [place] [address] Oct, [facility] [address] [id number] [address] [place] [address], [place] [address] Oct, [facility] [address] [id number] [address] [place] [address], [place] [address] Sep, [facility] [address] [id number] [address] [place] [address], [place] [address] Sep, [facility] [address] [id number] [address] [place] [address], [place] [address] Aug, [facility] [address] [id number] [address] [place] [address], [place] [address] Aug, [facility] [address] [id number] [address] [place] [address], [place] [address] Aug, [facility] [address] [id number] [address] [place] [address], [place] [address] Aug, [facility] [address] [id number] [address] [place] [address], [place] [address] Jul, [facility] [address] [id number] [address] [place] [address], [place] [address] Jul, [facility] [address] [id number] [address] [place] [address], [place] [address] Jul, [facility] [address] [id number] [address] [place] [address], [place] [address] Jul, [facility] [address] [id number] [address] [place] [address], [place] [address] Jun, [facility] [address] [id number] [address] [place] [address] Jun, [facility] [address] [id number] [address] [place] [address], [place] [address] May, [facility] [address] [id number] [address] [place] [address] May, [facility] [address] [id number] [address] [place] [address], [place] [address] May, [facility] [address] [id number] [address] [place] [id number] May, [facility] [address] [id number] [address] [place] [address], [place] [address] May, [facility] [address] [id number] [address] [place] [address], [place] [address] May, [facility] [address] [id number] [address] [place] [address] Apr, [facility] [address] [id number] [address] [place] [address], [place] [address] Apr, [facility] [address] [id number] [address] [place] [address] Apr, [facility] [address] [id number] [address] [place] [address] Feb, [facility] [address] [id number] [address] [place] [address] Jan, [facility] [address] [id number] [address] [place] [address] Jan, [facility] [address] [id number] [address] [place] [address] Jan, [facility] [address] [id number] [address] [place] [id number] Jan, [facility] [address] [id number] [address] [place] [address], [place] [address] December, [facility] [address] [id number] [address] [place] [address], [place] [address] December, [facility] [address] [id number] [address] [place] [address], [place] [address] 24 Nov, [address] [facility] [address] [id number] [address] [place] [address], [place] [address] Nov, [facility] [address] [id number] [address] [place] [address], [place] [address] Nov, [facility] [address] [id number] [address] [place] [address], [place] [address] Nov, [facility] [address] [id number] [address] [place] [address], [place] [address] Nov, [facility] [address] [id number] [address] [place] [address], [place] [address] Nov, [facility] [address] [id number] [address] [place] [address], [place] [address] Nov, [facility] [address] [id number] [address] [place] [address], [place] [address] 27 Oct, 2012 [facility] [address] [id number] [address] [place] [address], [place] [address] 18 Oct, 2012 [facility] [address] [id number] [address] [place] [address], [place] [address] 14 Oct, 2012 [facility] [address] [id number] [address] [place] [address], [place] [address] 13 Oct, [address] [facility] [address] [id number] [address] [place] [address], [place] [address] 12 Oct, [address] [facility] [address] [id number] [address] [place] [address], [place] [address] Oct, [facility] [address] [id number] [address] [place] [address], [place] [address] 08 Oct, [address] [facility] [address] [id number] [address] [place] [address], [place] [address] Sep, [facility] [address] [id number] [address] [place] [address] Sep, [facility] [address] [id number] [address] [place] [address] Aug, [facility] [address] [id number] [address] [place] [address] Aug, [facility] [address] [id number] [address] [place] [id number] Jul, [facility] [address] [id number] [address] [place] [address] Jul, [facility] [address] [id number] [address] [place] [id number] Jul, [facility] [address] [id number] [address] [place] [address] Jul, [facility] [address] [id number] [address] [place] [id number] Jul, [facility] [address] [id number] [address] [place] [id number] Jul, [facility] [address] [id number] [address] [place] [id number] Jul, [facility] [address] [id number] [address] [place] [id number] Jul, [facility] [address] [id number] [address] [place] [id number] Jun, [facility] [address] [id number] [address] [place] [id number] Jun, IMMUNIZATIONS No Known Immunizations SOCIAL HISTORY [...] -- total 11/2012 Hospitalization History ER- in [place] due to left knee 8
--- OUTSIDE RECORDS SUMMARY | 2020-02-11 03:07 | XMS REPORT ---
Author Author Madeline Magdaleno Doctor Organization [facility] Address Unknown Phone Unavailable Care Team Providers Care Water Inspector Name Role Phone Migration, Doctor Unavailable Unavailable PROBLEMS Type Condition ICD9-CM Code [id number] Code Onset Dates Condition S tatus SNOMED Code Problem Numbness and tingling in hands R20.2 Active 714138686 Problem History of abnormal cervical Pap smear Z87.898 Active 419182281 Problem Stasis dermatitis of both legs I87.2 Active 88422313 Problem Pre-diabetes R73.09 Active 2045038 02 Problem Morbid obesity due to excess calories E66.01 Active 828561933 Problem GERD (gastroesophageal reflux disease) K21.9 Active 577046845 Problem Mood disorder F39 Active 342037 05 Problem Chronic pain G89.29 Active 7139975 1 Problem BMI 45.0-49.9, adult Z68.42 Active 814324978 Problem Essential hypertension I10 Active 45866135 Problem Primary insomnia F51.01 Active 397 2004 Problem Chronic recurrent major depressive disorder F33.9 Active 4299215 ALLERGIES No Information ENCOUNTERS Encounter Location Date Diagnosis [facility] [id number] [address] [place] [id number] 09 Jan, 2020 BMI 45.0-49.9, adult Z68.42 [facility] [id number] [place] [id number] Jan, Chronic pain G89.29 [facility] [id number] [place] [id number] December, [facility] [id number] [place] [id number] December, Essential hypertension I10 ; BMI 45.0-49.9, adult Z68.42 and Right hand tendonitis M77.9 [facility] [id number] [place] [address] December, Chronic pain G89.29 [place] [address] [address] 09 Nov, 2019 BMI 45.0-49.9, adult Z68.42 and Chronic pain G89.29 [place] [address] [address] 05 Oct, 2019 BMI 45.0-49.9, adult Z68.42 and Chronic pain G89.29 [place] [address] [address] 10 Sep, 2019 BMI 45.0-49.9, adult Z68.42 and Chronic pain G89.29 [place] [address] [address] 10 Sep, 2019 Essential hypertension I10 [place] [address] [address] 05 Sep, 2019 Tinea corporis B35.4 [place] [address] [address] Aug, Acute non-recurrent maxillar y sinusitis J01.00 and Tinea corporis B35.4 [place] [id number] [place] [id number] 14 Aug, 2019 BMI 45.0-49.9, adult Z68.42 and Chronic pain G89.29 [place] [address] [id number] [place] [address] Jul, BMI 45.0-49.9, adult Z68.42 and Chronic pain G89.29 [place] [address] [address] Jul, Pre-diabetes R73.09 [place] [id number] [place] [address] Jun, BMI 45.0-49.9, adult Z68.42 and Chronic pain G89.29 [facility] [address] [facility] [id number] [address] [place] [id number] Jun, Acute non-recurrent maxillar y sinusitis J01.00 [facility] [address] [facility] [id number] [address] [place] [id number] May, Chronic pain G89.29 and BMI 45.0-49.9, adult Z68.42 [facility] [address] [facility] [id number] [address] [place] [address] Apr, Chronic pain G89.29 and BMI 45.0-49.9, adult Z68.42 [place] [address] [facility] [id number] [address] [place] [id number] Apr, Mood disorder F39 [place] [address] [facility] [id number] [address] [place] [address] Mar, Chronic pain G89.29 and BMI 45.0-49.9, adult Z68.42 [place] [address] 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 [id number] [address] [place] [id number] Mar, Chronic pain G89.29 and BMI 45.0-49.9, adult Z68.42 [facility] [address] [facility] [id number] [address] [place] [id number] Feb, [place] [address] [facility] [id number] [address] [place] [address] Feb, Chronic pain G89.29 and BMI 45.0-49.9, adult Z68.42 [place] [address] [facility] [id number] [address] [place] [id number] Jan, [facility] [address] [facility] [id number] [address] [place] [id number] 10 Jan, 2019 Chronic pain G89.29 and BMI 45.0-49.9, adult Z68.42 [place] [address] [address] 03 Jan, 2019 [place] [address] [address] December, Chronic pain G89.29 and BMI 45.0-49.9, adult Z68.42 [place] [address] [address] Nov, Morbid obesity E66.01 and Ce llulitis of leg, left L03.116 [place] [address] [address] 15 Nov, 2018 Cellulitis of left lower ext remity L03.116 and Morbid obesity E66.01 [facility] [address] [address] Nov, [place] [address] [address] Nov, Morbid obesity E66.01 and Ce llulitis of left lower extremity L03.116 [place] [address] [address] Nov, Chronic pain G89.29 and BMI 45.0-49.9, adult Z68.42 [place] [address] [address] Oct, BMI 45.0-49.9, adult Z68.42 and Chronic pain G89.29 [place] [address] [address] 14 Sep, 2018 BMI 45.0-49.9, adult Z68.42 and Chronic pain G89.29 [place] [address] [address] Sep, BMI 45.0-49.9, adult Z68.42 and Essential hypertension I10 [place] [address] [facility] [id number] [address] [place] [address] Aug, BMI 45.0-49.9, adult Z68.42 ; Chronic pain G89.29 ; Essential hypertension I10 and Primary insomnia F51.01 [place] [address] [facility] [id number] [address] [place] [address] Aug, Chronic pain G89.29 [place] [address] [facility] [id number] [address] [place] [address] Jul, Chronic pain G89.29 [place] [address] [facility] [id number] [address] [place] [address] Jun, Chronic pain G89.29 [place] [address] [facility] [id number] [address] [place] [address] May, Chronic pain G89.29 [place] [address] [facility] [id number] [address] [place] [address] May, BMI 40.0-44.9, adult Z68.41 ; Other chronic pain G89.29 ; Pain in right hip M25.551 and Acute pain of left knee M25.562 [place] [address] [facility] [id number] [address] [place] [address] May, Chronic pain G89.29 [place] [address] [facility] [id number] [address] [place] [address] Apr, Chronic pain G89.29 [place] [address] [facility] [id number] [address] [place] [address] Mar, Poison josep L23.7 [facility] [address] [facility] [id number] [address] [place] [id number] Mar, Chronic pain G89.29 [facility] [address] [facility] [id number] [address] [place] [id number] Feb, Chronic pain G89.29 [facility] [address] [facility] [id number] [address] [place] [phone] Feb, Poison josep L23.7 [facility] [address] [facility] [id number] [address] [place] [id number] Jan, Chronic pain G89.29 [facility] [address] [facility] [id number] [address] [place] [address] December, Chronic pain G89.29 [facility] [address] [facility] [id number] [address] [place] [id number] Nov, Long-term use of high-risk m edication Z79.899 [place] [address] [facility] [id number] [address] [place] [id number] Nov, Chronic pain G89.29 [place] [address] [facility] [id number] [address] [place] [id number] Oct, Chronic pain G89.29 ; Pre-di abetes R73.09 ; Long-term use of high- risk medication Z79.899 ; Allergic rhinitis, unspecified seasonality, unspecified trigger J30.9 ; BMI 45.0-49.9, adult Z68.42 and Essential hypertension I10 [facility] [address] [facility] [id number] [address] [place] [address] Oct, Chronic pain G89.29 [facility] [address] [facility] [id number] [address] [place] [id number] Sep, Chronic pain G89.29 [facility] [address] [facility] [id number] [address] [place] [id number] Aug, Chronic pain G89.29 [facility] [address] [facility] [id number] [address] [place] [id number] Jul, [place] [address] [facility] [id number] [address] [place] [address] Jul, [facility] [id number] [place] [id number] Jun, Chronic pain G89.29 ; BMI 45 .0-49.9, adult Z68.42 ; Pre-diabetes R73.09 ; Essential hypertension I10 ; GERD (gastroesophageal reflux disease) K21.9 ; Yeast dermatitis B37.2 ; Dysuria R30.0 ; Acute non-recurrent maxillary sinusitis J01.00 and Acute cystitis with hematuria N30.01 [facility] [address] [facility] [id number] [address] [place] [address] Jun, Chronic pain G89.29 [place] [id number] [place] [address] Jun, Acute non-recurrent maxillar y sinusitis J01.00 and BMI 45.0-49.9, adult Z68.42 [place] [id number] [place] [id number] May, [place] [address] [facility] [id number] [address] [place] [id number] May, Chronic pain G89.29 [place] [address] [id number] [address] [place] [id number] May, [place] [id number] [place] [id number] Apr, Chronic pain G89.29 [place] [address] [facility] [id number] [address] [place] [address] Mar, [place] [id number] [place] [id number] Mar, Essential hypertension I10 a nd Pre-diabetes R73.09 [place] [address] [facility] [id number] [address] [place] [id number] Mar, Chronic pain G89.29 ; Essent ial hypertension I10 ; Depressive disorder, not elsewhere classified F32.9 ; GERD (gastroesophageal reflux disease) K21.9 ; Pre-diabetes R73.09 ; Stasis dermatitis of both legs I87.2 and Acute non-recurrent maxillary sinusitis J01.00 [place] [address] [facility] [id number] [address] [place] [id number] Mar, Chronic pain G89.29 [place] [address] [facility] [id number] [address] [place] [id number] 07 Mar, 2017 Achilles tendinitis of right lower extremity M76.61 and Tinea corporis B35.4 [place] [address] [facility] [id number] [address] [place] [id number] 17 Feb, 2017 Yeast dermatitis B37.2 [place] [address] [facility] [id number] [address] [place] [id number] Feb, Candidal intertrigo B37.2 an d Acute right ankle pain M25.571 [place] [id number] [place] [id number] Feb, Chronic pain G89.29 [place] [id number] [place] [phone] Jan, [place] [id number] [place] [address] Jan, Chronic pain G89.29 [place] [id number] [place] [id number] December, Chronic pain G89.29 ; Essent ial hypertension I10 ; Depressive disorder, not elsewhere classified F32.9 ; GERD (gastroesophageal reflux disease) K21.9 ; Pre-diabetes R73.09 ; Screening breast examination Z12.39 ; Stasis dermatitis of both legs I87.2 and Yeast dermatitis B37.2 [place] [address] [facility] [id number] [address] [place] [address] Nov, Chronic pain G89.29 [place] [id number] [place] [phone] Nov, Cellulitis of left lower ext remity L03.116 [place] [id number] [place] [id number] Nov, Cellulitis of left lower ext remity L03.116 [place] [id number] [place] [address] Oct, Yeast dermatitis B37.2 [place] [id number] [place] [id number] Oct, Chronic pain G89.29 [place] [id number] [place] [address] Sep, Chronic pain G89.29 ; Essent ial hypertension I10 ; Depressive disorder, not elsewhere classified F32.9 and GERD (gastroesophageal reflux disease) K21.9 [place] [address] [address] Aug, Chronic pain G89.29 [place] [address] [address] Aug, Cough R05 ; Rash R21 and Vinay h and nonspecific skin eruption R21 [place] [address] [address] Jul, Chronic pain G89.29 [place] [id number] [place] [address] Jun, Chronic pain G89.29 ; Bronch itis J40 ; Essential hypertension I10 ; Depressive disorder, not elsewhere classified F32.9 ; GERD (gastroesophageal reflux disease) K21.9 and History of long-term use of multiple prescription drugs Z92.29 [place] [id number] [place] [id number] Jun, Bronchitis J40 ; Chills R68. 83 and Sore throat J02.9 [place] [id number] [place] [id number] May, [place] [id number] [place] [address] Apr, [facility] [address] [id number] [address] [place] [address] Apr, Acute mucoid otitis media of both ears H65.113 [place] [address] [address] Apr, Yeast dermatitis B37.2 and H ematuria R31.9 [facility] [address] [address] Mar, [facility] [address] [address] Mar, [facility] [address] [address] Feb, Left anterior knee pain M25. 562 [place] [address] [address] Feb, Chronic pain G89.29 ; Essent ial hypertension I10 ; Depressive disorder, not elsewhere classified F32.9 ; GERD (gastroesophageal reflux disease) K21.9 and History of long-term use of multiple prescription drugs Z92.29 [place] [address] [address] Jan, [place] [address] [address] Jan, Well woman exam Z01.419 ; BM I 45.0-49.9, adult Z68.42 ; Family history of diabetes mellitus Z83.3 and Chronic pain G89.29 [place] [address] [address] December, Chronic pain G89.29 ; Essent ial hypertension I10 ; Depressive disorder, not elsewhere classified F32.9 ; GERD (gastroesophageal reflux disease) K21.9 ; 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 ; History of long-term use of multiple prescription drugs Z92.29 and Obesity E66.9 [facility] [address] [address] Oct, [place] [address] [id number] [place] [address] Oct, Well woman exam Z01.419 ; BM [...] smear Z12.4 and No natural teeth K00.0 [place] [address] [address] Oct, [place] [address] [address] Sep, Chronic pain G89.29 ; Essent ial hypertension I10 ; GERD (gastroesophageal reflux disease) K21.9 ; 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 ; Skin infection L08.9 and History of long-term use of multiple prescription drugs Z92.29 [place] [address] [address] Aug, [place] [address] [address] Jul, [place] [address] [address] Jul, [place] [address] [address] Jul, Upper respiratory infection J06.[address] [address] Jul, Depressive disorder, not els ewhere classified F32.[address] [address] Jul, Chronic pain 338.29 [place] [address] [address] Jul, Chronic pain G89.29 [place] [address] [address] 16 Jun, 2015 Poison josep L23.7 [place] [id number] [place] [address] Jun, Allergic contact dermatitis due to plants, except food L23.7 [place] [id number] [place] [address] Jun, Essential hypertension I10 ; Chronic pain G89.29 ; GERD (gastroesophageal reflux disease) K21.9 and Numbness and tingling in hands R20.2 [place] [address] [address] May, [place] [address] [address] Apr, [place] [address] [address] Mar, [place] [address] [address] Feb, Abdominal pain, left lateral 789.09 and Constipation 564.[address] [address] Feb, Depressive disorder, not els ewhere classified 311 and No condition on [place] II V71.09 [place] [address] [address] Feb, Spider bite 989.5 and Depres homar 311 [place] [address] [id number] [place] [address] Feb, [place] [address] [address] Feb, Chronic pain 338.29 ; Arthro zonia 716.90 and GERD (gastroesophageal reflux disease) 530.81 [facility] [address] [id number] [address] [place] [id number] 15 Jan, 2015 Insect bites 919.4 [facility] [address] [id number] [address] [place] [id number] 08 Jan, 2015 [facility] [address] [id number] [address] [place] [address] December, Skin infection, bacterial 68 6.9 ; Conjunctivitis 372.30 and Insect bites 919.4 [facility] [address] [id number] [address] [place] [address] December, Chronic pain 338.29 ; Arthro zonia 716.90 ; Skin infection, bacterial 686.9 and Conjunctivitis 372.30 [facility] [address] [facility] [id number] [address] [place] [address] December, [facility] [address] [id number] [address] [place] [address] Nov, [facility] [address] [id number] [address] [place] [phone] Nov, [facility] [address] [id number] [address] [place] [phone] Oct, [facility] [address] [facility] [id number] [address] [place] [phone] Oct, [facility] [address] [id number] [address] [place] [address] Sep, [facility] [address] [id number] [address] [place] [id number] Sep, [facility] [address] [id number] [address] [place] [id number] Aug, [facility] [address] [id number] [address] [place] [id number] Aug, [facility] [address] [id number] [address] [place] [id number] Aug, [facility] [address] [id number] [address] [place] [address], [place] [address] Aug, [facility] [address] [id number] [address] [place] [address], [place] [address] Jul, [facility] [address] [id number] [address] [place] [address], [place] [address] Jul, [facility] [address] [id number] [address] [place] [address], [place] [id number] Jul, [facility] [address] [id number] [address] [place] [address], [place] [address] Jul, [facility] [address] [id number] [address] [place] [address], [place] [address] Jul, [facility] [address] [id number] [address] [place] [address], [place] [address] Jul, [facility] [address] [id number] [address] [place] [address], [place] [address] Jul, [facility] [address] [id number] [address] [place] [address], [place] [address] Jul, [facility] [address] [id number] [address] [place] [address], [place] [address] Jul, [facility] [address] [id number] [address] [place] [address], [place] [address] Jun, [facility] [address] [id number] [address] [place] [address], [place] [address] Jun, [facility] [address] [id number] [address] [place] [address], [place] [address] Jun, [facility] [address] [id number] [address] [place] [address], [place] [address] Jun, [facility] [address] [id number] [address] [place] [address], [place] [address] Jun, [facility] [address] [id number] [address] [place] [address], [place] [address] Jun, [facility] [address] [id number] [address] [place] [address], [place] [address] Jun, [facility] [address] [id number] [address] [place] [address], [place] [address] Jun, [facility] [address] [id number] [address] [place] [address], [place] [address] May, [facility] [address] [id number] [address] [place] [address], [place] [address] May, [facility] [address] [id number] [address] [place] [address], [place] [address] May, [facility] [address] [id number] [address] [place] [address], [place] [address] May, [facility] [address] [id number] [address] [place] [address], [place] [address] May, [facility] [address] [id number] [address] [place] [address], [place] [address] 26 Apr, 2014 [facility] [address] [id number] [address] [place] [address], [place] [address] 26 Apr, 2014 [facility] [address] [id number] [address] [place] [address], [place] [address] 25 Apr, 2014 [facility] [address] [id number] [address] [place] [address], [place] [address] 25 Apr, 2013 [facility] [address] [id number] [address] [place] [address], [place] [address] 18 Sep, 2013 [facility] [address] [id number] [address] [place] [address], [place] [address] 18 Apr, 2013 [facility] [address] [id number] [address] [place] [address], [place] [address] 18 Apr, 2013 [facility] [address] [id number] [address] [place] [address], [place] [address] Apr, [facility] [address] [id number] [facility] [place] [address] Apr, [facility] [address] [id number] [address] [place] [address], [place] [address] Apr, [facility] [address] [id number] [address] [place] [address], [place] [address] Mar, [facility] [address] [id number] [address] [place] [address], [place] [address] Mar, [facility] [address] [id number] [address] [place] [address], [place] [address] Mar, [facility] [address] [id number] [address] [place] [address], [place] [address] Mar, [facility] [address] [id number] [address] [place] [address], [place] [address] Mar, [facility] [address] [id number] [address] [place] [address], [place] [id number] Mar, [facility] [address] [id number] [address] [place] [address], [place] [address] Feb, [facility] [address] [id number] [address] [place] [address], [place] [address] Feb, [facility] [address] [id number] [address] [place] [address], [place] [address] Jan, [facility] [address] [id number] [address] [place] [address], [place] [address] Jan, [facility] [address] [id number] [address] [place] [address], [place] [address] Jan, [facility] [address] [id number] [address] [place] [address], [place] [address] Jan, [facility] [address] [id number] [address] [place] [address], [place] [address] December, [facility] [address] [id number] [address] [place] [address], [place] [address] December, [facility] [address] [id number] [address] [place] [address], [place] [address] December, [facility] [address] [id number] [address] [place] [address], [place] [address] December, [facility] [address] [id number] [address] [place] [address], [place] [address] December, [facility] [address] [id number] [address] [place] [address], [place] [address] December, [facility] [address] [id number] [address] [place] [address], [place] [address] December, [facility] [address] [id number] [address] [place] [address], [place] [address] December, [facility] [address] [id number] [address] [place] [address], [place] [address] December, [facility] [address] [id number] [address] [place] [address], [place] [address] Nov, [facility] [address] [id number] [address] [place] [address], [place] [address] Nov, [facility] [address] [id number] [address] [place] [address], [place] [address] Nov, [facility] [address] [id number] [address] [place] [address], [place] [address] Nov, [facility] [address] [id number] [address] [place] [address], [place] [address] Nov, [facility] [address] [id number] [address] [place] [address], [place] [address] Nov, [facility] [address] [id number] [address] [place] [address], [place] [address] Nov, [facility] [address] [id number] [address] [place] [address], [place] [address] Nov, [facility] [address] [id number] [address] [place] [address], [place] [address] Nov, [facility] [address] [id number] [address] [place] [address], [place] [address] Nov, [facility] [address] [id number] [address] [place] [address], [place] [address] Oct, [facility] [address] [id number] [address] [place] [address], [place] [address] Oct, [facility] [address] [id number] [address] [place] [address], [place] [address] Sep, [facility] [address] [id number] [address] [place] [address], [place] [address] Sep, [facility] [address] [id number] [address] [place] [address], [place] [address] Aug, [facility] [address] [id number] [address] [place] [address], [place] [address] Aug, [facility] [address] [id number] [address] [place] [address], [place] [address] Aug, [facility] [address] [id number] [address] [place] [address], [place] [address] Aug, [facility] [address] [id number] [address] [place] [address], [place] [address] Jul, [facility] [address] [id number] [address] [place] [address], [place] [address] Jul, [facility] [address] [id number] [address] [place] [address], [place] [address] Jul, [facility] [address] [id number] [address] [place] [address], [place] [address] Jul, [facility] [address] [id number] [address] [place] [address], [place] [address] Jun, [facility] [address] [id number] [address] [place] [id number] Jun, [facility] [address] [id number] [address] [place] [address], [place] [address] May, [facility] [address] [id number] [address] [place] [phone] May, [facility] [address] [id number] [address] [place] [address], [place] [address] May, [facility] [address] [id number] [address] [place] [id number] May, [facility] [address] [id number] [address] [place] [address], [place] [address] May, [facility] [address] [id number] [address] [place] [address], [place] [address] May, [facility] [address] [id number] [address] [place] [id number] Apr, [facility] [address] [id number] [address] [place] [address], [place] [address] Apr, [facility] [address] [id number] [address] [place] [id number] Apr, [facility] [address] [id number] [address] [place] [phone] Feb, [facility] [address] [id number] [address] [place] [phone] Jan, [facility] [address] [id number] [address] [place] [phone] Jan, [facility] [address] [id number] [address] [place] [phone] Jan, [facility] [address] [id number] [address] [place] [address] Jan, [facility] [address] [id number] [address] [place] [address], [place] [address] December, [facility] [address] [id number] [address] [place] [address], [place] [address] December, [facility] [address] [id number] [address] [place] [address], [place] [address] 24 Nov, 2012 [facility] [address] [id number] [address] [place] [address], [place] [address] Nov, [facility] [address] [id number] [address] [place] [address], [place] [address] Nov, [facility] [address] [id number] [address] [place] [address], [place] [address] Nov, [facility] [address] [id number] [address] [place] [address], [place] [address] Nov, [facility] [address] [id number] [address] [place] [address], [place] [address] Nov, [facility] [address] [id number] [address] [place] [address], [place] [address] Nov, [facility] [address] [id number] [address] [place] [address], [place] [address] 27 Oct, 2012 [facility] [address] [id number] [address] [place] [address], [place] [address] 18 Oct, 2012 [facility] [address] [id number] [address] [place] [address], [place] [address] 14 Oct, 2012 [facility] [address] [id number] [address] [place] [address], [place] [address] 13 Oct, 2012 [facility] [address] [id number] [address] [place] [address], [place] [address] 12 Oct, 2012 [facility] [address] [id number] [address] [place] [address], [place] [address] Oct, [facility] [address] [id number] [address] [place] [address], [place] [address] 08 Oct, 2012 [facility] [address] [id number] [address] [place] [address], [place] [address] Sep, [facility] [address] [id number] [address] [place] [id number] Sep, [facility] [address] [id number] [address] [place] [id number] Aug, [facility] [address] [id number] [address] [place] [id number] Aug, [facility] [address] [id number] [address] [place] [id number] Jul, [facility] [address] [id number] [address] [place] [id number] Jul, [facility] [address] [id number] [address] [place] [id number] Jul, [facility] [address] [id number] [address] [place] [id number] Jul, [facility] [address] [id number] [address] [place] [id number] Jul, [facility] [address] [id number] [address] [place] [id number] Jul, [facility] [address] [id number] [address] [place] [id number] Jul, [facility] [address] [id number] [address] [place] [id number] Jul, [facility] [address] [id number] [address] [place] [id number] Jun, [facility] [address] [id number] [address] [place] [phone] Jun, IMMUNIZATIONS No Known Immunizations SOCIAL HISTORY [...] -- total 11/2012 Hospitalization History ER- in [place] due to left knee 8
--- OUTSIDE RECORDS SUMMARY | 2020-02-11 03:08 | XMS REPORT ---
Author Author Madeline CHIANG Organization [facility] Address [address] [place] [address] Care Team Providers Care Ring Packer Name Role Phone KWESIKennedy DANG Unavailable PROBLEMS Type Condition ICD9-CM Code [id number] Code Onset Dates Condition S tatus SNOMED Code Problem Numbness and tingling in hands R20.2 Active 830449935 Problem History of abnormal cervical Pap smear Z87.898 Active 261322158 Problem Stasis dermatitis of both legs I87.2 Active 63771943 Problem Pre-diabetes R73.09 Active 5803548 02 Problem Morbid obesity due to excess calories E66.01 Active 529516042 Problem GERD (gastroesophageal reflux disease) K21.9 Active 113518016 Problem Mood disorder F39 Active 804429 05 Problem Chronic pain G89.29 Active 8324043 1 Problem BMI 45.0-49.9, adult Z68.42 Active 954632010 Problem Essential hypertension I10 Active 24995402 Problem Primary insomnia F51.01 Active 397 2004 Problem Chronic recurrent major depressive disorder F33.9 Active 9460047 ALLERGIES No Information ENCOUNTERS Encounter Location Date Diagnosis [place] [address] [facility] [id number] [address] [place] [id number] December, [place] [address] [facility] [id number] [address] [place] [phone] Nov, BMI 45.0-49.9, adult Z68.42 and Chronic pain G89.29 [facility] [address] [place] [id number] [address] [place] [address] Oct, BMI 45.0-49.9, adult Z68.42 and Chronic pain G89.29 [place] [address] [facility] [id number] [address] [place] [phone] Sep, BMI 45.0-49.9, adult Z68.42 and Chronic pain G89.29 [place] [address] [facility] [id number] [address] [place] [address] 10 Sep, 2019 Essential hypertension I10 [place] [address] [facility] [id number] [address] [place] [id number] 05 Sep, 2019 Tinea corporis B35.4 [place] [address] [facility] [id number] [address] [place] [id number] 20 Aug, 2019 Acute non-recurrent maxillar y sinusitis J01.00 and Tinea corporis B35.4 [place] [address] [place] [id number] [address] [place] [id number] 14 Aug, 2019 BMI 45.0-49.9, adult Z68.42 and Chronic pain G89.29 [place] [address] [place] [id number] [address] [place] [phone] Jul, BMI 45.0-49.9, adult Z68.42 and Chronic pain G89.29 [place] [address] [place] [id number] [address] [place] [address] Jul, Pre-diabetes R73.09 [place] [address] [place] [id number] [address] [place] [id number] Jun, BMI 45.0-49.9, adult Z68.42 and Chronic pain G89.29 [place] [address] [place] [id number] [address] [place] [address] Jun, Acute non-recurrent maxillar y sinusitis J01.00 [place] [address] [facility] [id number] [address] [place] [address] May, Chronic pain G89.29 and BMI 45.0-49.9, adult Z68.42 [place] [address] [place] [id number] [address] [place] [address] Apr, Chronic pain G89.29 and BMI 45.0-49.9, adult Z68.42 [facility] [address] [facility] [id number] [address] [place] [address] Apr, Mood disorder F39 [facility] [address] [facility] [id number] [address] [place] [id number] Mar, Chronic pain G89.29 and BMI 45.0-49.9, adult Z68.42 [facility] [address] [place] [id number] [address] [place] [address] Mar, Morbid obesity E66.01 ; Ship Erector david recurrent major depressive disorder F33.9 ; Morbid obesity due to excess calories E66.01 and High risk medication use Z79.899 [place] [address] [place] [id number] [address] [place] [address] Mar, Chronic pain G89.29 and BMI 45.0-49.9, adult Z68.42 [place] [id number] [place] [address] Feb, [facility] [address] [place] [id number] [address] [place] [address] Feb, Chronic pain G89.29 and BMI 45.0-49.9, adult Z68.42 [facility] [address] [place] [id number] [address] [place] [phone] Jan, [place] [address] [place] [id number] [address] [place] [phone] Jan, Chronic pain G89.29 and BMI 45.0-49.9, adult Z68.42 [facility] [address] [facility] [id number] [address] [place] [address] Jan, [facility] [address] [place] [id number] [address] [place] [address] December, Chronic pain G89.29 and BMI 45.0-49.9, adult Z68.42 [facility] [address] [place] [id number] [address] [place] [address] Nov, Morbid obesity E66.01 and Ce llulitis of leg, left L03.116 [place] [address] [facility] [id number] [address] [place] [address] 15 Nov, 2018 Cellulitis of left lower ext remity L03.116 and Morbid obesity E66.01 [facility] [address] [facility] [id number] [address] [place] [id number] Nov, [facility] [address] [place] [id number] [place] [address] Nov, Morbid obesity E66.01 and Ce llulitis of left lower extremity L03.116 [place] [address] [place] [id number] [place] [address] Nov, Chronic pain G89.29 and BMI 45.0-49.9, adult Z68.42 [place] [address] [address] Oct, BMI 45.0-49.9, adult Z68.42 and Chronic pain G89.29 [place] [address] [address] 14 Sep, 2018 BMI 45.0-49.9, adult Z68.42 and Chronic pain G89.29 [place] [address] [place] [id number] [address] [place] [id number] 05 Sep, 2018 BMI 45.0-49.9, adult Z68.42 and Essential hypertension I10 [place] [address] [place] [id number] [address] [place] [address] Aug, BMI 45.0-49.9, adult Z68.42 ; Chronic pain G89.29 ; Essential hypertension I10 and Primary insomnia F51.01 [place] [address] [place] [id number] [address] [place] [address] Aug, Chronic pain G89.29 [place] [address] [address] Jul, Chronic pain G89.29 [facility] [address] [id number] [address] [place] [address] Jun, Chronic pain G89.29 [facility] [address] [facility] [id number] [address] [place] [id number] May, Chronic pain G89.29 [facility] [address] [facility] [id number] [address] [place] [address] May, BMI 40.0-44.9, adult Z68.41 ; Other chronic pain G89.29 ; Pain in right hip M25.551 and Acute pain of left knee M25.562 [facility] [address] [id number] [address] [place] [phone] May, Chronic pain G89.29 [facility] [address] [facility] [id number] [address] [place] [phone] Apr, Chronic pain G89.29 [facility] [address] [id number] [address] [place] [phone] Mar, Poison josep L23.7 [facility] [address] [facility] [id number] [address] [place] [id number] Mar, Chronic pain G89.29 [facility] [address] [facility] [id number] [address] [place] [address] Feb, Chronic pain G89.29 [facility] [address] [facility] [id number] [address] [place] [id number] Feb, Poison josep L23.7 [facility] [address] [facility] [id number] [address] [place] [id number] Jan, Chronic pain G89.29 [facility] [address] [facility] [id number] [address] [place] [address] December, Chronic pain G89.29 [facility] [address] [facility] [id number] [address] [place] [address] Nov, Long-term use of high-risk m edication Z79.899 [facility] [address] [facility] [id number] [place] [address] Nov, Chronic pain G89.29 [facility] [address] [facility] [id number] [address] [place] [address] Oct, Chronic pain G89.29 ; Pre-di abetes R73.09 ; Long-term use of high- risk medication Z79.899 ; Allergic rhinitis, unspecified seasonality, unspecified trigger J30.9 ; BMI 45.0-49.9, adult Z68.42 and Essential hypertension I10 [place] [address] [address] Oct, Chronic pain G89.29 [place] [address] [place] [id number] [place] [address] Sep, Chronic pain G89.29 [place] [address] [address] Aug, Chronic pain G89.29 [place] [address] [address] Jul, [place] [address] [address] Jul, [place] [address] [address] Jun, Chronic pain G89.29 ; BMI 45 .0-49.9, adult Z68.42 ; Pre-diabetes R73.09 ; Essential hypertension I10 ; GERD (gastroesophageal reflux disease) K21.9 ; Yeast dermatitis B37.2 ; Dysuria R30.0 ; Acute non-recurrent maxillary sinusitis J01.00 and Acute cystitis with hematuria N30.01 [place] [address] [place] [id number] [address] [place] [address] 13 Jun, 2017 Chronic pain G89.29 [place] [address] [address] Jun, Acute non-recurrent maxillar y sinusitis J01.00 and BMI 45.0-49.9, adult Z68.42 [place] [address] [place] [id number] [address] [place] [address] May, [place] [address] [place] [id number] [address] [place] [id number] May, Chronic pain G89.29 [place] [address] [place] [id number] [place] [address] May, [place] [address] [place] [id number] [address] [place] [address] Apr, Chronic pain G89.29 [place] [address] [place] [id number] [address] [place] [address] Mar, [place] [address] [address] Mar, Essential hypertension I10 a nd Pre-diabetes R73.09 [place] [address] [place] [id number] [place] [address] Mar, Chronic pain G89.29 ; Essent ial hypertension I10 ; Depressive disorder, not elsewhere classified F32.9 ; GERD (gastroesophageal reflux disease) K21.9 ; Pre-diabetes R73.09 ; Stasis dermatitis of both legs I87.2 and Acute non-recurrent maxillary sinusitis J01.00 [place] [address] [place] [id number] [place] [address] Mar, Chronic pain G89.29 [place] [address] [place] [id number] [place] [id number] Mar, Achilles tendinitis of right lower extremity M76.61 and Tinea corporis B35.4 [place] [address] [place] [id number] [place] [id number] Feb, Yeast dermatitis B37.2 [place] [address] [place] [id number] [place] [id number] 14 Feb, 2017 Candidal intertrigo B37.2 an d Acute right ankle pain M25.571 [place] [address] [place] [id number] [place] [address] 12 Feb, 2017 Chronic pain G89.29 [place] [address] [place] [id number] [place] [address] Jan, [place] [address] [place] [id number] [place] [address] Jan, Chronic pain G89.29 [place] [address] [place] [id number] [place] [address] December, Chronic pain G89.29 ; Essent ial hypertension I10 ; Depressive disorder, not elsewhere classified F32.9 ; GERD (gastroesophageal reflux disease) K21.9 ; Pre-diabetes R73.09 ; Screening breast examination Z12.39 ; Stasis dermatitis of both legs I87.2 and Yeast dermatitis B37.2 [place] [address] [place] [id number] [place] [address] Nov, Chronic pain G89.29 [place] [address] [place] [id number] [place] [id number] Nov, Cellulitis of left lower ext remity L03.116 [place] [address] [place] [id number] [place] [address] Nov, Cellulitis of left lower ext remity L03.116 [place] [address] [facility] [id number] [address] [place] [address] Oct, Yeast dermatitis B37.2 [place] [address] [place] [id number] [address] [place] [address] Oct, Chronic pain G89.29 [place] [address] [place] [id number] [address] [place] [address] Sep, Chronic pain G89.29 ; Essent ial hypertension I10 ; Depressive disorder, not elsewhere classified F32.9 and GERD (gastroesophageal reflux disease) K21.9 [facility] [address] [address] Aug, Chronic pain G89.29 [facility] [address] [address] Aug, Cough R05 ; Rash R21 and Vinay h and nonspecific skin eruption R21 [place] [address] [address] Jul, Chronic pain G89.29 [place] [address] [address] Jun, Chronic pain G89.29 ; Bronch itis J40 ; Essential hypertension I10 ; Depressive disorder, not elsewhere classified F32.9 ; GERD (gastroesophageal reflux disease) K21.9 and History of long-term use of multiple prescription drugs Z92.29 [place] [address] [address] Jun, Bronchitis J40 ; Chills R68. 83 and Sore throat J02.9 [place] [address] [address] May, [facility] [address] [address] Apr, [facility] [address] [address] Apr, Acute mucoid otitis media of both ears H65.113 [facility] [address] [address] Apr, Yeast dermatitis B37.2 and H ematuria R31.9 [facility] [address] [address] Mar, [place] [address] [address] Mar, [place] [address] [place] [id number] [address] [place] [address] Feb, Left anterior knee pain M25. [address] [address] Feb, Chronic pain G89.29 ; Essent ial hypertension I10 ; Depressive disorder, not elsewhere classified F32.9 ; GERD (gastroesophageal reflux disease) K21.9 and History of long-term use of multiple prescription drugs Z92.29 [place] [address] [address] Jan, [address] [address] Jan, Well woman exam Z01.419 ; BM I 45.0-49.9, adult Z68.42 ; Family history of diabetes mellitus Z83.3 and Chronic pain G89.[address] [address] December, Chronic pain G89.29 ; Essent ial hypertension I10 ; Depressive disorder, not elsewhere classified F32.9 ; GERD (gastroesophageal reflux disease) K21.9 ; 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 ; History of long-term use of multiple prescription drugs Z92.29 and Obesity E66.[address] [address] Oct, [address] [address] Oct, Well woman exam Z01.419 ; BM [...] smear Z12.4 and No natural teeth K00.0 [facility] [address] [facility] [id number] [address] [place] [address] Oct, [facility] [address] [place] [id number] [address] [place] [address] Sep, Chronic pain G89.29 ; Essent ial hypertension I10 ; GERD (gastroesophageal reflux disease) K21.9 ; 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 ; Skin infection L08.9 and History of long-term use of multiple prescription drugs Z92.29 [place] [address] [facility] [id number] [address] [place] [address] Aug, [place] [address] [place] [id number] [place] [phone] Jul, [place] [address] [place] [id number] [place] [address] Jul, [place] [address] [place] [id number] [address] [place] [address] Jul, Upper respiratory infection J06.9 [place] [address] [place] [id number] [address] [place] [address] Jul, Depressive disorder, not els ewhere classified F32.9 [place] [address] [place] [id number] [address] [place] [address] Jul, Chronic pain 338.29 [place] [address] [place] [id number] [address] [place] [address] Jul, Chronic pain G89.29 [place] [address] [place] [id number] [place] [address] Jun, Poison josep L23.7 [place] [address] [place] [id number] [place] [address] Jun, Allergic contact dermatitis due to plants, except food L23.7 [place] [address] [facility] [id number] [address] [place] [address] Jun, Essential hypertension I10 ; Chronic pain G89.29 ; GERD (gastroesophageal reflux disease) K21.9 and Numbness and tingling in hands R20.2 [place] [address] [address] May, [place] [address] [address] Apr, [place] [address] [address] Mar, [place] [address] [address] Feb, Abdominal pain, left lateral 789.09 and Constipation 564.00 [place] [address] [address] Feb, Depressive disorder, not els ewhere classified 311 and No condition on Valier II V71.[address] [address] Feb, Spider bite 989.5 and Depres homar [address] [address] Feb, [address] [address] Feb, Chronic pain 338.29 ; Arthro zonia 716.90 and GERD (gastroesophageal reflux disease) 530.81 [place] [address] [address] Jan, Insect bites 919.4 [place] [address] [address] Jan, [address] [address] December, Skin infection, bacterial 68 6.9 ; Conjunctivitis 372.30 and Insect bites 919.[address] [address] December, Chronic pain 338.29 ; Arthro zonia 716.90 ; Skin infection, bacterial 686.9 and Conjunctivitis 372.30 [facility] [address] [id number] [address] [place] [address] December, [facility] [address] [id number] [address] [place] [address] Nov, [facility] [address] [id number] [address] [place] [address] Nov, [facility] [address] [id number] [address] [place] [address] Oct, [facility] [address] [id number] [address] [place] [address] Oct, [facility] [address] [id number] [address] [place] [address] Sep, [facility] [address] [id number] [address] [place] [address] Sep, [facility] [address] [id number] [address] [place] [phone] Aug, [facility] [address] [id number] [address] [place] [address] Aug, [facility] [address] [id number] [address] [place] [phone] Aug, [facility] [address] [id number] [address] [place] [address] Aug, [facility] [address] [id number] [address] [place] [address] Jul, [facility] [address] [id number] [address] [place] [address] Jul, [facility] [address] [id number] [address] [place] [phone] Jul, [facility] [address] [id number] [address] [place] [address], [place] [address] 15 Jul, 2014 [facility] [address] [id number] [address] [place] [address], [place] [address] 15 Jul, 2014 [facility] [address] [id number] [address] [place] [address], [place] [address] 15 Jul, 2014 [facility] [address] [id number] [address] [place] [address], [place] [address] 15 Jul, 2014 [facility] [address] [id number] [address] [place] [address], [place] [address] 12 Jul, 2014 [facility] [address] [id number] [address] [place] [address], [place] [address] Jul, [facility] [address] [id number] [address] [place] [address], [place] [address] Jun, [facility] [address] [id number] [address] [place] [address], [place] [address] Jun, [facility] [address] [id number] [address] [place] [address], [place] [address] Jun, [facility] [address] [id number] [address] [place] [address], [place] [address] Jun, [facility] [address] [id number] [address] [place] [address], [place] [address] Jun, [facility] [address] [id number] [address] [place] [address], [place] [address] Jun, [facility] [address] [id number] [address] [place] [address], [place] [address] Jun, [facility] [address] [id number] [address] [place] [address], [place] [address] Jun, [facility] [address] [id number] [address] [place] [address], [place] [address] May, [facility] [address] [id number] [address] [place] [address], [place] [address] May, [facility] [address] [id number] [address] [place] [address], [place] [address] 16 May, 2014 [facility] [address] [id number] [address] [place] [address], [place] [address] May, [facility] [address] [id number] [address] [place] [address], [place] [address] May, [facility] [address] [id number] [address] [place] [address], [place] [address] Apr, [facility] [address] [id number] [address] [place] [address], [place] [address] Apr, [facility] [address] [id number] [address] [place] [address], [place] [address] Apr, [facility] [address] [id number] [address] [place] [address], [place] [address] Apr, [facility] [address] [id number] [address] [place] [address], [place] [address] Apr, [facility] [address] [id number] [address] [place] [address], [place] [address] Apr, [facility] [address] [id number] [address] [place] [address], [place] [address] Apr, [facility] [address] [id number] [address] [place] [address], [place] [address] Apr, [facility] [address] [id number] [address] [place] [address], [place] [address] Apr, [facility] [address] [id number] [address] [place] [address], [place] [address] Apr, [facility] [address] [id number] [address] [place] [address], [place] [address] Mar, [facility] [address] [id number] [address] [place] [address], [place] [address] Mar, [facility] [address] [id number] [address] [place] [address] Mar, [facility] [address] [id number] [address] [place] [address], [place] [address] Mar, [facility] [address] [id number] [address] [place] [address], [place] [address] Mar, [facility] [address] [id number] [address] [place] [address], [place] [address] Mar, [facility] [address] [id number] [address] [place] [address], [place] [address] Feb, [facility] [address] [id number] [address] [place] [address], [place] [address] Feb, [facility] [address] [id number] [address] [place] [address], [place] [address] Jan, [facility] [address] [id number] [address] [place] [address], [place] [address] Jan, [facility] [address] [id number] [address] [place] [address], [place] [address] Jan, [facility] [address] [id number] [address] [place] [address], [place] [address] Jan, [facility] [address] [id number] [address] [place] [address], [place] [address] December, [facility] [address] [id number] [address] [place] [address], [place] [address] December, [facility] [address] [id number] [address] [place] [address], [place] [address] December, [facility] [address] [id number] [address] [place] [address], [place] [address] December, [facility] [address] [id number] [address] [place] [address], [place] [address] December, [facility] [address] [id number] [address] [place] [address], [place] [address] December, [facility] [address] [id number] [facility] [place] [address] December, [facility] [address] [id number] [address] [place] [address], [place] [address] December, [facility] [address] [id number] [address] [place] [address], [place] [address] December, [facility] [address] [id number] [address] [place] [address], [place] [address] Nov, [facility] [address] [id number] [address] [place] [address], [place] [address] Nov, [facility] [address] [id number] [address] [place] [address], [place] [address] Nov, [facility] [address] [id number] [address] [place] [address], [place] [address] Nov, [facility] [address] [id number] [address] [place] [address], [place] [address] Nov, [facility] [address] [id number] [address] [place] [address], [place] [address] Nov, [facility] [address] [id number] [address] [place] [address], [place] [address] Nov, [facility] [address] [id number] [address] [place] [address], [place] [address] Nov, [facility] [address] [id number] [address] [place] [address], [place] [address] Nov, [facility] [address] [id number] [address] [place] [address], [place] [address] Nov, [facility] [address] [id number] [address] [place] [address], [place] [address] Oct, [facility] [address] [id number] [address] [place] [address], [place] [address] Oct, [facility] [address] [id number] [address] [place] [address], [place] [address] Sep, [facility] [address] [id number] [address] [place] [address], [place] [address] Sep, [facility] [address] [id number] [address] [place] [address], [place] [address] Aug, [facility] [address] [id number] [address] [place] [address], [place] [address] Aug, [facility] [address] [id number] [address] [place] [address], [place] [address] Aug, [facility] [address] [id number] [address] [place] [address], [place] [address] Aug, [facility] [address] [id number] [address] [place] [address], [place] [address] Jul, [facility] [address] [id number] [address] [place] [address], [place] [address] Jul, [facility] [address] [id number] [address] [place] [address], [place] [address] Jul, [facility] [address] [id number] [address] [place] [address], [place] [address] Jul, [facility] [address] [id number] [address] [place] [address], [place] [address] Jun, [facility] [address] [id number] [address] [place] [address], [place] [address] Jun, [facility] [address] [id number] [address] [place] [address], [place] [address] May, [facility] [address] [id number] [address] [place] [address], [place] [address] May, [facility] [address] [id number] [address] [place] [address], [place] [address] May, [facility] [address] [id number] [address] [place] [address], [place] [address] May, [facility] [address] [id number] [address] [place] [address], [place] [address] May, [facility] [address] [id number] [address] [place] [address], [place] [address] May, [facility] [address] [id number] [address] [place] [address], [place] [address] 30 Apr, 2013 [facility] [address] [id number] [address] [place] [address], [place] [address] Apr, [facility] [address] [id number] [address] [place] [address], [place] [address] Apr, [facility] [address] [id number] [address] [place] [address], [place] [address] Feb, [facility] [address] [id number] [address] [place] [address], [place] [address] Jan, [facility] [address] [id number] [address] [place] [address], [place] [address] Jan, [facility] [address] [id number] [address] [place] [address], [place] [address] 17 Jan, 2013 [facility] [address] [id number] [address] [place] [address], [place] [address] Jan, [facility] [address] [id number] [address] [place] [address], [place] [address] December, [facility] [address] [id number] [address] [place] [address], [place] [address] December, [facility] [address] [id number] [address] [place] [address], [place] [address] 24 Nov, 2012 [facility] [address] [id number] [address] [place] [address], [place] [address] Nov, [facility] [address] [id number] [address] [place] [address], [place] [address] Nov, [facility] [address] [id number] [address] [place] [address], [place] [address] Nov, [facility] [address] [id number] [address] [place] [address], [place] [address] 08 Nov, 2012 [facility] [address] [id number] [address] [place] [address], [place] [address] 08 Nov, 2012 [facility] [address] [id number] [address] [place] [address], [place] [address] 03 Nov, 2012 [facility] [address] [id number] [address] [place] [address], [place] [address] 27 Oct, 2012 [facility] [address] [id number] [address] [place] [address], [place] [address] 18 Oct, 2012 [facility] [address] [id number] [address] [place] [address], [place] [address] 14 Oct, 2012 [facility] [address] [id number] [address] [place] [address], [place] [address] 13 Oct, 2012 [facility] [address] [id number] [address] [place] [address], [place] [address] 12 Oct, 2012 [facility] [address] [id number] [address] [place] [address], [place] [address] Oct, [facility] [address] [id number] [address] [place] [address], [place] [address] 08 Oct, 2012 [facility] [address] [id number] [address] [place] [address], [place] [address] Sep, [facility] [address] [id number] [address] [place] [address], [place] [address] Sep, [facility] [address] [id number] [address] [place] [address], [place] [address] Aug, [facility] [address] [id number] [address] [place] [address], [place] [address] Aug, [facility] [address] [id number] [address] [place] [address], [place] [address] Jul, [facility] [address] [id number] [address] [place] [address] Jul, [facility] [address] [facility] [id number] [address] [place] [address] Jul, [facility] [address] [facility] [id number] [address] [place] [address] Jul, [facility] [address] [facility] [id number] [address] [place] [address] Jul, [facility] [address] [facility] [id number] [address] [place] [id number] Jul, [facility] [address] [facility] [id number] [address] [place] [address] Jul, [facility] [address] [facility] [id number] [address] [place] [id number] Jul, [facility] [address] [facility] [id number] [address] [place] [id number] Jun, [facility] [address] [facility] [id number] [address] [place] [id number] Jun, IMMUNIZATIONS No Known Immunizations SOCIAL HISTORY [...] -- total 11/2012 Hospitalization History ER- in [place] due to left knee 8
--- OUTSIDE RECORDS SUMMARY | 2020-02-11 03:08 | XMS REPORT ---
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 Name Role Phone Migration, Doctor Unavailable Unavailable PROBLEMS Type Condition ICD9-CM Code MMP25-WE Code Onset Dates Condition S tatus SNOMED Code Problem Numbness and tingling in hands R20.2 Active 455652706 Problem History of abnormal cervical Pap smear Z87.898 Active 274349941 Problem Stasis dermatitis of both legs I87.2 Active 15726473 Problem Pre-diabetes R73.09 Active 8541450 02 Problem Morbid obesity due to excess calories E66.01 Active 443312781 Problem GERD (gastroesophageal reflux disease) K21.9 Active 622081592 Problem Mood disorder F39 Active 826173 05 Problem Chronic pain G89.29 Active 8836035 1 Problem BMI 45.0-49.9, adult Z68.42 Active 506153073 Problem Essential hypertension I10 Active 13345766 Problem Primary insomnia F51.01 Active 397 2004 Problem Chronic recurrent major depressive disorder F33.9 Active 3501640 ALLERGIES No Information ENCOUNTERS Encounter Location Date Diagnosis [facility] [id number] [place] [id number] December, [facility] [id number] [place] [phone] December, Chronic pain G89.29 [facility] [address] [facility] [id number] [address] [place] [id number] Nov, BMI 45.0-49.9, adult Z68.42 and Chronic pain G89.29 [facility] [address] [facility] [id number] [address] [place] [id number] Oct, BMI 45.0-49.9, adult Z68.42 and Chronic pain G89.29 [facility] [id number] [place] [id number] 10 Sep, 2019 BMI 45.0-49.9, adult Z68.42 and Chronic pain G89.29 [place] [id number] [place] [id number] 10 Sep, 2019 Essential hypertension I10 [place] [id number] [place] [id number] 05 Sep, 2019 Tinea corporis B35.4 [place] [id number] [place] [phone] Aug, Acute non-recurrent maxillar y sinusitis J01.00 and Tinea corporis B35.4 [place] [id number] [place] [id number] Aug, BMI 45.0-49.9, adult Z68.42 and Chronic pain G89.29 [place] [id number] [place] [id number] Jul, BMI 45.0-49.9, adult Z68.42 and Chronic pain G89.29 [place] [address] [place] [id number] Jul, Pre-diabetes R73.09 [place] [id number] [place] [address] Jun, BMI 45.0-49.9, adult Z68.42 and Chronic pain G89.29 [place] [id number] [place] [id number] Jun, Acute non-recurrent maxillar y sinusitis J01.00 [place] [id number] [place] [id number] May, Chronic pain G89.29 and BMI 45.0-49.9, adult Z68.42 [place] [id number] [place] [id number] Apr, Chronic pain G89.29 and BMI 45.0-49.9, adult Z68.42 [facility] [id number] [place] [phone] Apr, Mood disorder F39 [facility] [id number] [place] [id number] Mar, Chronic pain G89.29 and BMI 45.0-49.9, adult Z68.42 [facility] [id number] [place] [id number] Mar, Morbid obesity E66.01 ; 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 Director david recurrent major depressive disorder F33.9 ; Morbid obesity due to excess calories E66.01 and High risk medication use Z79.899 [place] [id number] [place] [id number] Mar, Chronic pain G89.29 and BMI 45.0-49.9, adult Z68.42 [place] [id number] [place] [phone] Feb, [facility] [id number] [place] [address] Feb, Chronic pain G89.29 and BMI 45.0-49.9, adult Z68.42 [place] [id number] [place] [phone] Jan, [facility] [id number] [place] [address] Jan, Chronic pain G89.29 and BMI 45.0-49.9, adult Z68.42 [facility] [id number] [place] [phone] Jan, [place] [id number] [place] [address] December, Chronic pain G89.29 and BMI 45.0-49.9, adult Z68.42 [facility] [id number] [place] [address] Nov, Morbid obesity E66.01 and Ce llulitis of leg, left L03.116 [place] [address] [place] [address] 15 Nov, 2018 Cellulitis of left lower ext remity L03.116 and Morbid obesity E66.01 [facility] [id number] [place] [phone] Nov, [place] [address] [address] Nov, Morbid obesity E66.01 and Ce llulitis of left lower extremity L03.116 [place] [id number] [place] [address] Nov, Chronic pain G89.29 and BMI 45.0-49.9, adult Z68.42 [place] [address] [address] Oct, BMI 45.0-49.9, adult Z68.42 and Chronic pain G89.29 [place] [address] [address] 14 Sep, 2018 BMI 45.0-49.9, adult Z68.42 and Chronic pain G89.29 [place] [address] [id number] [place] [id number] 05 Sep, 2018 BMI 45.0-49.9, adult Z68.42 and Essential hypertension I10 [place] [id number] [place] [id number] Aug, BMI 45.0-49.9, adult Z68.42 ; Chronic pain G89.29 ; Essential hypertension I10 and Primary insomnia F51.01 [place] [id number] [place] [phone] Aug, Chronic pain G89.29 [place] [id number] [place] [address] Jul, Chronic pain G89.29 [facility] [address] [id number] [address] [place] [id number] Jun, Chronic pain G89.29 [facility] [address] [id number] [address] [place] [phone] May, Chronic pain G89.29 [facility] [address] [facility] [id number] [address] [place] [phone] May, BMI 40.0-44.9, adult Z68.41 ; Other chronic pain G89.29 ; Pain in right hip M25.551 and Acute pain of left knee M25.562 [facility] [address] [id number] [address] [place] [address] May, Chronic pain G89.29 [facility] [address] [id number] [address] [place] [phone] Apr, Chronic pain G89.29 [facility] [address] [id number] [address] [place] [phone] Mar, Poison josep L23.7 [facility] [address] [id number] [address] [place] [phone] Mar, Chronic pain G89.29 [facility] [address] [facility] [id number] [address] [place] [phone] Feb, Chronic pain G89.29 [facility] [address] [id number] [address] [place] [phone] Feb, Poison josep L23.7 [facility] [address] [facility] [id number] [address] [place] [phone] Jan, Chronic pain G89.29 [facility] [address] [facility] [id number] [address] [place] [phone] December, Chronic pain G89.29 [facility] [address] [facility] [id number] [address] [place] [id number] Nov, Long-term use of high-risk m edication Z79.899 [facility] [address] [facility] [id number] [address] [place] [address] Nov, Chronic pain G89.29 [facility] [address] [facility] [id number] [address] [place] [phone] Oct, Chronic pain G89.29 ; Pre-di abetes R73.09 ; Long-term use of high- risk medication Z79.899 ; Allergic rhinitis, unspecified seasonality, unspecified trigger J30.9 ; BMI 45.0-49.9, adult Z68.42 and Essential hypertension I10 [place] [address] [address] Oct, Chronic pain G89.29 [place] [address] [address] Sep, Chronic pain G89.29 [place] [address] [address] Aug, Chronic pain G89.29 [place] [address] [address] Jul, [place] [address] [address] Jul, [place] [address] [address] Jun, Chronic pain G89.29 ; BMI 45 .0-49.9, adult Z68.42 ; Pre-diabetes R73.09 ; Essential hypertension I10 ; GERD (gastroesophageal reflux disease) K21.9 ; Yeast dermatitis B37.2 ; Dysuria R30.0 ; Acute non-recurrent maxillary sinusitis J01.00 and Acute cystitis with hematuria N30.01 [place] [id number] [place] [address] Jun, Chronic pain G89.29 [place] [address] [address] Jun, Acute non-recurrent maxillar y sinusitis J01.00 and BMI 45.0-49.9, adult Z68.42 [place] [address] [address] May, [place] [address] [address] May, Chronic pain G89.29 [place] [address] [address] May, [place] [address] [address] Apr, Chronic pain G89.29 [place] [address] [address] Mar, [place] [address] [address] Mar, Essential hypertension I10 a nd Pre-diabetes R73.09 [place] [address] [address] Mar, Chronic pain G89.29 ; Essent ial hypertension I10 ; Depressive disorder, not elsewhere classified F32.9 ; GERD (gastroesophageal reflux disease) K21.9 ; Pre-diabetes R73.09 ; Stasis dermatitis of both legs I87.2 and Acute non-recurrent maxillary sinusitis J01.00 [place] [address] [address] Mar, Chronic pain G89.29 [place] [address] [address] Mar, Achilles tendinitis of right lower extremity M76.61 and Tinea corporis B35.4 [place] [address] [address] Feb, Yeast dermatitis B37.2 [place] [address] [facility] [id number] [address] [place] [id number] 14 Feb, 2017 Candidal intertrigo B37.2 an d Acute right ankle pain M25.571 [place] [address] [facility] [id number] [address] [place] [address] 12 Feb, 2017 Chronic pain G89.29 [place] [id number] [place] [phone] Jan, [place] [id number] [place] [address] Jan, Chronic pain G89.29 [place] [id number] [place] [phone] December, Chronic pain G89.29 ; Essent ial hypertension I10 ; Depressive disorder, not elsewhere classified F32.9 ; GERD (gastroesophageal reflux disease) K21.9 ; Pre-diabetes R73.09 ; Screening breast examination Z12.39 ; Stasis dermatitis of both legs I87.2 and Yeast dermatitis B37.2 [place] [id number] [place] [address] Nov, Chronic pain G89.29 [place] [id number] [place] [address] Nov, Cellulitis of left lower ext remity L03.116 [place] [id number] [place] [address] Nov, Cellulitis of left lower ext remity L03.116 [place] [address] [facility] [id number] [address] [place] [phone] Oct, Yeast dermatitis B37.2 [place] [address] [facility] [id number] [address] [place] [phone] Oct, Chronic pain G89.29 [place] [id number] [place] [id number] Sep, Chronic pain G89.29 ; Essent ial hypertension I10 ; Depressive disorder, not elsewhere classified F32.9 and GERD (gastroesophageal reflux disease) K21.9 [facility] [address] [address] Aug, Chronic pain G89.29 [facility] [address] [address] Aug, Cough R05 ; Rash R21 and Vinay h and nonspecific skin eruption R21 [place] [address] [address] Jul, Chronic pain G89.29 [place] [address] [address] Jun, Chronic pain G89.29 ; Bronch itis J40 ; Essential hypertension I10 ; Depressive disorder, not elsewhere classified F32.9 ; GERD (gastroesophageal reflux disease) K21.9 and History of long-term use of multiple prescription drugs Z92.29 [place] [address] [address] Jun, Bronchitis J40 ; Chills R68. 83 and Sore throat J02.9 [place] [address] [address] May, [place] [address] [address] Apr, [facility] [address] [address] Apr, Acute mucoid otitis media of both ears H65.113 [place] [address] [address] 07 Apr, 2016 Yeast dermatitis B37.2 and H ematuria R31.9 [place] [address] [address] Mar, [place] [address] [address] Mar, [place] [id number] [place] [address] Feb, Left anterior knee pain M25. 562 [place] [id number] [place] [address] Feb, Chronic pain G89.29 ; Essent ial hypertension I10 ; Depressive disorder, not elsewhere classified F32.9 ; GERD (gastroesophageal reflux disease) K21.9 and History of long-term use of multiple prescription drugs Z92.29 [place] [id number] [place] [address] Jan, [place] [address] [address] Jan, Well woman exam Z01.419 ; BM I 45.0-49.9, adult Z68.42 ; Family history of diabetes mellitus Z83.3 and Chronic pain G89.29 [place] [id number] [place] [address] December, Chronic pain G89.29 ; Essent ial hypertension I10 ; Depressive disorder, not elsewhere classified F32.9 ; GERD (gastroesophageal reflux disease) K21.9 ; 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 ; History of long-term use of multiple prescription drugs Z92.29 and Obesity E66.9 [place] [id number] [place] [address] Oct, [place] [address] [address] 07 Oct, 2015 Well woman exam Z01.419 ; BM I [...] smear Z12.4 and No natural teeth K00.0 [facility] [id number] [place] [address] Oct, [place] [id number] [place] [address] Sep, Chronic pain G89.29 ; Essent ial hypertension I10 ; GERD (gastroesophageal reflux disease) K21.9 ; 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 ; Skin infection L08.9 and History of long-term use of multiple prescription drugs Z92.29 [place] [address] [address] Aug, [place] [address] [address] Jul, [place] [address] [address] Jul, [place] [address] [address] Jul, Upper respiratory infection J06.9 [place] [address] [address] Jul, Depressive disorder, not els ewhere classified F32.9 [place] [address] [address] Jul, Chronic pain 338.29 [place] [id number] [place] [address] Jul, Chronic pain G89.29 [place] [id number] [place] [address] Jun, Poison josep L23.7 [place] [id number] [place] [address] Jun, Allergic contact dermatitis due to plants, except food L23.7 [place] [id number] [place] [address] Jun, Essential hypertension I10 ; Chronic pain G89.29 ; GERD (gastroesophageal reflux disease) K21.9 and Numbness and tingling in hands R20.2 [place] [address] [address] May, [place] [address] [address] Apr, [place] [address] [address] Mar, [place] [address] [address] Feb, Abdominal pain, left lateral 789.09 and Constipation 564.[address] [address] Feb, Depressive disorder, not els ewhere classified 311 and No condition on Walker II V71.[address] [address] Feb, Spider bite 989.5 and Depres homar [address] [address] Feb, [address] [address] Feb, Chronic pain 338.29 ; Arthro zonia 716.90 and GERD (gastroesophageal reflux disease) 530.81 [place] [address] [address] Jan, Insect bites 919.[address] [address] Jan, [place] [address] [address] December, Skin infection, bacterial 68 6.9 ; Conjunctivitis 372.30 and Insect bites 919.4 [place] [address] [place] [address] December, Chronic pain 338.29 ; Arthro zonia 716.90 ; Skin infection, bacterial 686.9 and Conjunctivitis 372.30 [facility] [address] [id number] [address] [place] [address] December, [facility] [address] [id number] [address] [place] [address] Nov, [facility] [address] [id number] [address] [place] [phone] Nov, [facility] [address] [id number] [address] [place] [phone] Oct, [facility] [address] [id number] [address] [place] [phone] Oct, [facility] [address] [id number] [address] [place] [phone] Sep, [facility] [address] [id number] [address] [place] [phone] Sep, [facility] [address] [id number] [address] [place] [phone] Aug, [facility] [address] [id number] [address] [place] [phone] Aug, [facility] [address] [id number] [address] [place] [phone] Aug, [facility] [address] [id number] [address] [place] [phone] Aug, [facility] [address] [id number] [address] [place] [phone] Jul, [facility] [address] [id number] [address] [place] [phone] Jul, [facility] [address] [id number] [address] [place] [phone] Jul, [facility] [place] [facility] [address] [id number] [address] [place] [address], [place] [address] Jul, [facility] [address] [id number] [address] [place] [address], [place] [address] Jul, [facility] [address] [id number] [address] [place] [address], [place] [address] Jul, [facility] [address] [id number] [address] [place] [address], [place] [address] Jul, [facility] [address] [id number] [address] [place] [address], [place] [address] Jul, [facility] [address] [id number] [address] [place] [address], [place] [address] Jul, [facility] [address] [id number] [address] [place] [address], [place] [address] Jun, [facility] [address] [id number] [address] [place] [address], [place] [address] Jun, [facility] [address] [id number] [address] [place] [address], [place] [address] Jun, [facility] [address] [id number] [address] [place] [address], [place] [address] Jun, [facility] [address] [id number] [address] [place] [address], [place] [address] Jun, [facility] [address] [id number] [address] [place] [address], [place] [address] Jun, [facility] [address] [id number] [address] [place] [address], [place] [address] Jun, [facility] [place] [facility] [address] [id number] [address] [place] [address], [place] [address] Jun, [facility] [address] [id number] [address] [place] [address], [place] [address] May, [facility] [address] [id number] [address] [place] [address], [place] [address] 17 May, 2014 [facility] [address] [id number] [address] [place] [address], [place] [address] 16 May, 2014 [facility] [address] [id number] [address] [place] [address], [place] [address] May, [facility] [address] [id number] [address] [place] [address], [place] [address] May, [facility] [address] [id number] [address] [place] [address], [place] [address] Apr, [facility] [address] [id number] [address] [place] [address], [place] [address] Apr, [facility] [address] [id number] [address] [place] [address], [place] [address] Apr, [facility] [address] [id number] [address] [place] [address], [place] [address] Apr, [facility] [address] [id number] [address] [place] [address], [place] [id number] 18 Apr, 2014 [facility] [address] [id number] [address] [place] [address], [place] [address] Apr, [facility] [address] [id number] [address] [place] [address], [place] [address] Apr, [facility] [address] [id number] [address] [place] [address], [place] [address] Apr, [facility] [address] [id number] [address] [place] [address], [place] [address] Apr, [facility] [address] [id number] [address] [place] [address], [place] [address] Apr, [facility] [address] [id number] [address] [place] [address], [place] [address] Mar, [facility] [address] [id number] [address] [place] [address], [place] [address] Mar, [facility] [address] [id number] [facility] [address] Mar, [facility] [address] [id number] [address] [place] [address], [place] [address] Mar, [facility] [address] [id number] [address] [place] [address], [place] [address] Mar, [facility] [address] [id number] [address] [place] [address], [place] [address] Mar, [facility] [address] [id number] [address] [place] [address], [place] [address] Feb, [facility] [address] [id number] [address] [place] [address], [place] [address] Feb, [facility] [address] [id number] [address] [place] [address], [place] [address] Jan, [facility] [address] [id number] [address] [place] [address], [place] [address] Jan, [facility] [address] [id number] [address] [place] [address], [place] [address] Jan, [facility] [address] [id number] [address] [place] [address], [place] [address] Jan, [facility] [address] [id number] [address] [place] [address], [place] [address] December, [facility] [address] [id number] [address] [place] [address], [place] [address] December, [facility] [address] [id number] [address] [place] [address], [place] [address] December, [facility] [facility] [address] [id number] [address] [place] [address], [place] [address] December, [facility] [address] [id number] [address] [place] [address], [place] [address] December, [facility] [address] [id number] [address] [place] [address], [place] [address] December, [facility] [address] [id number] [address] [place] [address], [place] [address] December, [facility] [address] [id number] [address] [place] [address], [place] [address] December, [facility] [address] [id number] [address] [place] [address], [place] [address] December, [facility] [address] [id number] [address] [place] [address], [place] [address] Nov, [facility] [address] [id number] [address] [place] [address], [place] [address] Nov, [facility] [address] [id number] [address] [place] [address], [place] [address] Nov, [facility] [address] [id number] [address] [place] [address], [place] [address] Nov, [facility] [address] [id number] [address] [place] [address], [place] [address] Nov, [facility] [address] [id number] [address] [place] [address], [place] [address] Nov, [facility] [address] [id number] [address] [place] [address], [place] [address] Nov, [facility] [address] [id number] [address] [place] [address], [place] [address] Nov, [facility] [address] [id number] [address] [place] [address], [place] [address] Nov, [facility] [address] [id number] [address] [place] [address], [place] [address] Nov, [facility] [address] [id number] [address] [place] [address], [place] [address] Oct, [facility] [address] [id number] [address] [place] [address], [place] [address] Oct, [facility] [address] [id number] [address] [place] [address], [place] [address] Sep, [facility] [address] [id number] [address] [place] [address], [place] [address] Sep, [facility] [address] [id number] [address] [place] [address], [place] [address] Aug, [facility] [address] [id number] [address] [place] [address], [place] [address] Aug, [facility] [address] [id number] [address] [place] [address], [place] [address] Aug, [facility] [address] [id number] [address] [place] [address], [place] [address] Aug, [facility] [address] [id number] [address] [place] [address], [place] [address] Jul, [facility] [address] [id number] [address] [place] [address], [place] [address] Jul, [facility] [address] [id number] [address] [place] [address], [place] [address] Jul, [facility] [address] [id number] [address] [place] [address], [place] [address] Jul, [facility] [address] [id number] [address] [place] [address], [place] [address] Jun, [facility] [address] [id number] [address] [place] [address], [place] [address] Jun, [facility] [address] [id number] [address] [place] [address], [place] [address] May, [facility] [address] [id number] [address] [place] [address], [place] [address] May, [facility] [address] [id number] [address] [place] [address], [place] [address] May, [facility] [address] [id number] [address] [place] [address], [place] [address] May, [facility] [address] [id number] [address] [place] [address], [place] [address] May, [facility] [address] [id number] [address] [place] [address], [place] [address] May, [facility] [address] [id number] [address] [place] [address], [place] [address] Apr, [facility] [address] [id number] [address] [place] [address], [place] [address] Apr, [facility] [address] [id number] [address] [place] [address], [place] [address] Apr, [facility] [address] [id number] [address] [place] [address], [place] [address] Feb, [facility] [address] [id number] [address] [place] [address], [place] [address] Jan, [facility] [address] [id number] [address] [place] [address], [place] [address] Jan, [facility] [address] [id number] [address] [place] [address], [place] [address] Jan, [facility] [address] [id number] [address] [place] [address], [place] [address] Jan, [facility] [address] [id number] [address] [place] [address], [place] [address] December, [facility] [address] [id number] [address] [place] [address], [place] [address] December, [facility] [address] [id number] [address] [place] [address], [place] [address] Nov, [facility] [address] [id number] [address] [place] [address], [place] [address] Nov, [facility] [address] [id number] [address] [place] [address], [place] [address] Nov, [facility] [address] [id number] [address] [place] [address], [place] [address] 11 Nov, 2012 [facility] [address] [id number] [address] [place] [address], [place] [address] 08 Nov, 2012 [facility] [address] [id number] [address] [place] [address], [place] [address] 08 Nov, 2012 [facility] [address] [id number] [address] [place] [address], [place] [address] 03 Nov, 2012 [facility] [address] [id number] [address] [place] [address], [place] [address] 27 Oct, 2012 [facility] [address] [id number] [address] [place] [address], [place] [address] 18 Oct, 2012 [facility] [address] [id number] [address] [place] [address], [place] [address] 14 Oct, 2012 [facility] [address] [id number] [address] [place] [address], [place] [address] 13 Oct, 2012 [facility] [address] [id number] [address] [place] [address], [place] [address] 12 Oct, 2012 [facility] [address] [id number] [address] [place] [address], [place] [address] Oct, [facility] [address] [id number] [address] [place] [address], [place] [address] 08 Oct, 2012 [facility] [address] [id number] [address] [place] [address], [place] [address] Sep, [facility] [address] [id number] [address] [place] [address], [place] [address] Sep, [facility] [address] [id number] [address] [place] [address], [place] [address] Aug, [facility] [address] [id number] [address] [place] [address], [place] [address] Aug, [facility] [address] [id number] [address] [place] [address], [place] [address] Jul, [facility] [address] [id number] [address] [place] [id number] Jul, [facility] [address] [id number] [address] [place] [id number] Jul, [facility] [address] [id number] [address] [place] [id number] Jul, [facility] [address] [id number] [address] [place] [id number] Jul, [facility] [address] [id number] [address] [place] [id number] Jul, [facility] [address] [facility] [id number] [address] [place] [id number] Jul, [facility] [address] [id number] [address] [place] [id number] Jul, [facility] [address] [facility] [id number] [address] [place] [id number] Jun, [facility] [address] [id number] [address] [place] [id number] Jun, IMMUNIZATIONS No Known Immunizations SOCIAL HISTORY [...] -- total 11/2012 Hospitalization History ER- in [place] due to left knee 8
--- OUTSIDE RECORDS SUMMARY | 2020-02-11 03:08 | XMS REPORT ---
Author Author Madeline Magdaleno Doctor Organization [facility] Address Unknown Phone Unavailable Care Team Providers Care Cribbing Setter Name Role Phone Migration, Doctor Unavailable Unavailable PROBLEMS Type Condition ICD9-CM Code [id number] Code Onset Dates Condition S tatus SNOMED Code Problem Numbness and tingling in hands R20.2 Active 903804783 Problem History of abnormal cervical Pap smear Z87.898 Active 308485217 Problem Stasis dermatitis of both legs I87.2 Active 97408953 Problem Pre-diabetes R73.09 Active 2512386 02 Problem Morbid obesity due to excess calories E66.01 Active 485923048 Problem GERD (gastroesophageal reflux disease) K21.9 Active 204468447 Problem Mood disorder F39 Active 341308 05 Problem Chronic pain G89.29 Active 3680594 1 Problem BMI 45.0-49.9, adult Z68.42 Active 874751974 Problem Essential hypertension I10 Active 62559499 Problem Primary insomnia F51.01 Active 397 2004 Problem Chronic recurrent major depressive disorder F33.9 Active 3607648 ALLERGIES No Information ENCOUNTERS Encounter Location Date Diagnosis [facility] [id number] [place] [phone] December, [facility] [id number] [place] [address] December, Chronic pain G89.29 [facility] [address] [facility] [id number] [address] [place] [address] Nov, BMI 45.0-49.9, adult Z68.42 and Chronic pain G89.29 [facility] [address] [facility] [id number] [address] [place] [address] Oct, BMI 45.0-49.9, adult Z68.42 and Chronic pain G89.29 [facility] [id number] [place] [address] 10 Sep, 2019 BMI 45.0-49.9, adult Z68.42 and Chronic pain G89.29 [place] [id number] [place] [address] 10 Sep, 2019 Essential hypertension I10 [place] [id number] [place] [address] 05 Sep, 2019 Tinea corporis B35.4 [place] [id number] [place] [address] Aug, Acute non-recurrent maxillar y sinusitis J01.00 and Tinea corporis B35.4 [place] [id number] [place] [address] Aug, BMI 45.0-49.9, adult Z68.42 and Chronic pain G89.29 [place] [id number] [place] [address] Jul, BMI 45.0-49.9, adult Z68.42 and Chronic pain G89.29 [place] [address] [place] [address] Jul, Pre-diabetes R73.09 [place] [id number] [place] [address] Jun, BMI 45.0-49.9, adult Z68.42 and Chronic pain G89.29 [place] [id number] [place] [address] Jun, Acute non-recurrent maxillar y sinusitis J01.00 [place] [id number] [place] [address] May, Chronic pain G89.29 and BMI 45.0-49.9, adult Z68.42 [place] [id number] [place] [address] Apr, Chronic pain G89.29 and BMI 45.0-49.9, adult Z68.42 [facility] [id number] [place] [address] Apr, Mood disorder F39 [facility] [id number] [place] [address] Mar, Chronic pain G89.29 and BMI 45.0-49.9, adult Z68.42 [facility] [id number] [place] [address] Mar, Morbid obesity E66.01 ; Radiologist Diagnostic david recurrent major depressive disorder F33.9 ; Morbid obesity due to excess calories E66.01 and High risk medication use Z79.899 [place] [id number] [place] [address] Mar, Chronic pain G89.29 and BMI 45.0-49.9, adult Z68.42 [place] [id number] [place] [address] Feb, [facility] [id number] [place] [address] Feb, Chronic pain G89.29 and BMI 45.0-49.9, adult Z68.42 [place] [id number] [place] [address] Jan, [facility] [id number] [place] [address] Jan, Chronic pain G89.29 and BMI 45.0-49.9, adult Z68.42 [facility] [id number] [place] [address] Jan, [place] [id number] [place] [address] December, Chronic pain G89.29 and BMI 45.0-49.9, adult Z68.42 [facility] [id number] [place] [address] Nov, Morbid obesity E66.01 and Ce llulitis of leg, left L03.116 [place] [address] [place] [address] 15 Nov, 2018 Cellulitis of left lower ext remity L03.116 and Morbid obesity E66.01 [facility] [id number] [place] [address] Nov, [place] [address] [address] Nov, Morbid obesity E66.01 and Ce llulitis of left lower extremity L03.116 [place] [id number] [place] [address] Nov, Chronic pain G89.29 and BMI 45.0-49.9, adult Z68.42 [place] [address] [address] Oct, BMI 45.0-49.9, adult Z68.42 and Chronic pain G89.29 [place] [address] [address] 14 Sep, 2018 BMI 45.0-49.9, adult Z68.42 and Chronic pain G89.29 [place] [address] [id number] [place] [address] 05 Sep, 2018 BMI 45.0-49.9, adult Z68.42 and Essential hypertension I10 [place] [id number] [place] [address] Aug, BMI 45.0-49.9, adult Z68.42 ; Chronic pain G89.29 ; Essential hypertension I10 and Primary insomnia F51.01 [place] [id number] [place] [address] Aug, Chronic pain G89.29 [place] [id number] [place] [address] Jul, Chronic pain G89.29 [facility] [address] [id number] [address] [place] [address] Jun, Chronic pain G89.29 [facility] [address] [id number] [address] [place] [address] May, Chronic pain G89.29 [facility] [address] [facility] [id number] [address] [place] [address] May, BMI 40.0-44.9, adult Z68.41 ; Other chronic pain G89.29 ; Pain in right hip M25.551 and Acute pain of left knee M25.562 [facility] [address] [id number] [address] [place] [address] May, Chronic pain G89.29 [facility] [address] [id number] [address] [place] [address] Apr, Chronic pain G89.29 [facility] [address] [id number] [address] [place] [address] Mar, Poison josep L23.7 [facility] [address] [id number] [address] [place] [address] Mar, Chronic pain G89.29 [facility] [address] [facility] [id number] [address] [place] [address] Feb, Chronic pain G89.29 [facility] [address] [id number] [address] [place] [address] Feb, Poison josep L23.7 [facility] [address] [facility] [id number] [address] [place] [address] Jan, Chronic pain G89.29 [facility] [address] [facility] [id number] [address] [place] [address] December, Chronic pain G89.29 [facility] [address] [facility] [id number] [address] [place] [address] Nov, Long-term use of high-risk m edication Z79.899 [facility] [address] [facility] [id number] [address] [place] [address] Nov, Chronic pain G89.29 [facility] [address] [facility] [id number] [address] [place] [address] Oct, Chronic pain G89.29 ; Pre-di abetes R73.09 ; Long-term use of high- risk medication Z79.899 ; Allergic rhinitis, unspecified seasonality, unspecified trigger J30.9 ; BMI 45.0-49.9, adult Z68.42 and Essential hypertension I10 [place] [address] [address] Oct, Chronic pain G89.29 [place] [address] [address] Sep, Chronic pain G89.29 [place] [address] [address] Aug, Chronic pain G89.29 [address] [address] [address] Jul, [place] [address] [address] Jul, [address] [address] [address] Jun, Chronic pain G89.29 ; BMI 45 .0-49.9, adult Z68.42 ; Pre-diabetes R73.09 ; Essential hypertension I10 ; GERD (gastroesophageal reflux disease) K21.9 ; Yeast dermatitis B37.2 ; Dysuria R30.0 ; Acute non-recurrent maxillary sinusitis J01.00 and Acute cystitis with hematuria N30.01 [place] [id number] [place] [address] Jun, Chronic pain G89.29 [address] [address] [address] Jun, Acute non-recurrent maxillar y sinusitis J01.00 and BMI 45.0-49.9, adult Z68.42 [place] [address] [address] May, [place] [address] [address] May, Chronic pain G89.29 [address] [address] [address] May, [address] [address] [address] Apr, Chronic pain G89.29 [address] [address] [address] Mar, [address] [address] [address] Mar, Essential hypertension I10 a nd Pre-diabetes R73.09 [address] [address] [address] Mar, Chronic pain G89.29 ; Essent ial hypertension I10 ; Depressive disorder, not elsewhere classified F32.9 ; GERD (gastroesophageal reflux disease) K21.9 ; Pre-diabetes R73.09 ; Stasis dermatitis of both legs I87.2 and Acute non-recurrent maxillary sinusitis J01.00 [place] [address] [address] Mar, Chronic pain G89.29 [address] [address] [address] Mar, Achilles tendinitis of right lower extremity M76.61 and Tinea corporis B35.4 [place] [address] [address] Feb, Yeast dermatitis B37.2 [place] [address] [facility] [id number] [address] [place] [address] 14 Feb, 2017 Candidal intertrigo B37.2 an d Acute right ankle pain M25.571 [place] [address] [facility] [id number] [address] [place] [address] 12 Feb, 2017 Chronic pain G89.29 [place] [id number] [place] [address] Jan, [place] [id number] [place] [address] Jan, Chronic pain G89.29 [place] [id number] [place] [address] December, Chronic pain G89.29 ; Essent ial hypertension I10 ; Depressive disorder, not elsewhere classified F32.9 ; GERD (gastroesophageal reflux disease) K21.9 ; Pre-diabetes R73.09 ; Screening breast examination Z12.39 ; Stasis dermatitis of both legs I87.2 and Yeast dermatitis B37.2 [place] [id number] [place] [address] Nov, Chronic pain G89.29 [place] [id number] [place] [address] Nov, Cellulitis of left lower ext remity L03.116 [place] [id number] [place] [address] Nov, Cellulitis of left lower ext remity L03.116 [place] [address] [facility] [id number] [address] [place] [address] Oct, Yeast dermatitis B37.2 [place] [address] [facility] [id number] [address] [place] [address] Oct, Chronic pain G89.29 [place] [id number] [place] [address] Sep, Chronic pain G89.29 ; Essent ial hypertension I10 ; Depressive disorder, not elsewhere classified F32.9 and GERD (gastroesophageal reflux disease) K21.9 [facility] [address] [address] Aug, Chronic pain G89.29 [facility] [address] [address] Aug, Cough R05 ; Rash R21 and Vinay h and nonspecific skin eruption R21 [place] [address] [address] Jul, Chronic pain G89.29 [place] [address] [address] Jun, Chronic pain G89.29 ; Bronch itis J40 ; Essential hypertension I10 ; Depressive disorder, not elsewhere classified F32.9 ; GERD (gastroesophageal reflux disease) K21.9 and History of long-term use of multiple prescription drugs Z92.29 [place] [address] [address] Jun, Bronchitis J40 ; Chills R68. 83 and Sore throat J02.9 [place] [address] [address] May, [address] [address] [address] Apr, [facility] [address] [address] Apr, Acute mucoid otitis media of both ears H65.113 [place] [address] [address] 07 Apr, 2016 Yeast dermatitis B37.2 and H ematuria R31.9 [place] [address] [address] Mar, [place] [address] [address] Mar, [place] [id number] [place] [address] Feb, Left anterior knee pain M25. 562 [place] [address] [id number] [place] [address] Feb, Chronic pain G89.29 ; Essent ial hypertension I10 ; Depressive disorder, not elsewhere classified F32.9 ; GERD (gastroesophageal reflux disease) K21.9 and History of long-term use of multiple prescription drugs Z92.29 [place] [id number] [place] [address] Jan, [address] [address] [address] Jan, Well woman exam Z01.419 ; BM I 45.0-49.9, adult Z68.42 ; Family history of diabetes mellitus Z83.3 and Chronic pain G89.29 [place] [id number] [place] [address] December, Chronic pain G89.29 ; Essent ial hypertension I10 ; Depressive disorder, not elsewhere classified F32.9 ; GERD (gastroesophageal reflux disease) K21.9 ; 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 ; History of long-term use of multiple prescription drugs Z92.29 and Obesity E66.9 [place] [id number] [place] [address] Oct, [place] [address] [address] 07 Oct, 2015 Well woman exam Z01.419 [...] smear Z12.4 and No natural teeth K00.0 [facility] [id number] [place] [address] Oct, [place] [id number] [place] [address] Sep, Chronic pain G89.29 ; Essent ial hypertension I10 ; GERD (gastroesophageal reflux disease) K21.9 ; 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 ; Skin infection L08.9 and History of long-term use of multiple prescription drugs Z92.29 [place] [address] [address] Aug, [place] [address] [address] Jul, [place] [address] [address] Jul, [place] [address] [address] Jul, Upper respiratory infection J06.9 [place] [address] [address] Jul, Depressive disorder, not els ewhere classified F32.9 [place] [address] [address] Jul, Chronic pain 338.29 [place] [id number] [place] [address] Jul, Chronic pain G89.29 [place] [id number] [place] [address] Jun, Poison josep L23.7 [place] [id number] [place] [address] Jun, Allergic contact dermatitis due to plants, except food L23.7 [place] [id number] [place] [address] Jun, Essential hypertension I10 ; Chronic pain G89.29 ; GERD (gastroesophageal reflux disease) K21.9 and Numbness and tingling in hands R20.2 [place] [address] [address] May, [place] [address] [address] Apr, [place] [address] [address] Mar, [place] [address] [address] Feb, Abdominal pain, left lateral 789.09 and Constipation 564.[address] [address] Feb, Depressive disorder, not els ewhere classified 311 and No condition on Advance II V71.[address] [address] Feb, Spider bite 989.5 and Depres homar [address] [address] Feb, [address] [address] Feb, Chronic pain 338.29 ; Arthro zonia 716.90 and GERD (gastroesophageal reflux disease) 530.81 [place] [address] [address] Jan, Insect bites 919.[address] [address] Jan, [place] [address] [address] December, Skin infection, bacterial 68 6.9 ; Conjunctivitis 372.30 and Insect bites 919.4 [address] [address] [id number] [place] [address] December, Chronic pain 338.29 ; Arthro zonia 716.90 ; Skin infection, bacterial 686.9 and Conjunctivitis 372.30 [facility] [address] [id number] [address] [place] [address] December, [facility] [address] [id number] [address] [place] [address] Nov, [facility] [address] [id number] [address] [place] [address] Nov, [facility] [address] [id number] [address] [place] [address] Oct, [facility] [address] [id number] [address] [place] [address] Oct, [facility] [address] [id number] [address] [place] [address] Sep, [facility] [address] [id number] [address] [place] [address] Sep, [facility] [address] [id number] [address] [place] [address] Aug, [facility] [address] [id number] [address] [place] [address] Aug, [facility] [address] [id number] [address] [place] [address] Aug, [facility] [address] [id number] [address] [place] [address] Aug, [facility] [address] [id number] [address] [place] [address] Jul, [facility] [address] [id number] [address] [place] [address] Jul, [facility] [address] [id number] [address] [place] [address] Jul, [facility] [place] [facility] [address] [id number] [address] [place] [address], [place] [address] Jul, [facility] [address] [id number] [address] [place] [address], [place] [address] Jul, [facility] [address] [id number] [address] [place] [address], [place] [address] Jul, [facility] [address] [id number] [address] [place] [address], [place] [address] Jul, [facility] [address] [id number] [address] [place] [address], [place] [address] Jul, [facility] [address] [id number] [address] [place] [address], [place] [address] Jul, [facility] [address] [id number] [address] [place] [address], [place] [address] Jun, [facility] [address] [id number] [address] [place] [address], [place] [address] Jun, [facility] [address] [id number] [address] [place] [address], [place] [address] Jun, [facility] [address] [id number] [address] [place] [address], [place] [address] Jun, [facility] [address] [id number] [address] [place] [address], [place] [address] Jun, [facility] [address] [id number] [address] [place] [address], [place] [address] Jun, [facility] [address] [id number] [address] [place] [address], [place] [address] Jun, [facility] [place] [facility] [address] [id number] [address] [place] [address], [place] [address] Jun, [facility] [address] [id number] [address] [place] [address], [place] [address] May, [facility] [place] [facility] [address] [id number] [address] [place] [address], [place] [address] 17 May, 2014 [facility] [place] [address] [id number] [address] [place] [address], [place] [address] 16 May, 2014 [facility] [address] [id number] [address] [place] [address], [place] [address] May, [facility] [address] [id number] [address] [place] [address], [place] [address] May, [facility] [address] [id number] [address] [place] [address], [place] [address] Apr, [facility] [address] [id number] [address] [place] [address], [place] [address] Apr, [facility] [address] [id number] [address] [place] [address], [place] [address] Apr, [facility] [address] [id number] [address] [place] [address], [place] [address] Apr, [facility] [address] [id number] [address] [place] [address], [place] [address] 18 Apr, 2014 [facility] [address] [id number] [address] [place] [address], [place] [address] Apr, [facility] [address] [id number] [address] [place] [address], [place] [address] Apr, [facility] [address] [id number] [address] [place] [address], [place] [address] Apr, [facility] [address] [id number] [address] [place] [address], [place] [address] Apr, [facility] [address] [id number] [address] [place] [address], [place] [address] Apr, [facility] [address] [id number] [address] [place] [address], [place] [address] Mar, [facility] [address] [id number] [address] [place] [address], [place] [address] Mar, [facility] [address] [id number] [facility] [place] [address] Mar, [facility] [address] [id number] [address] [place] [address], [place] [address] Mar, [facility] [address] [id number] [address] [place] [address], [place] [address] Mar, [facility] [address] [id number] [address] [place] [address], [place] [address] Mar, [facility] [address] [id number] [address] [place] [address], [place] [address] Feb, [facility] [address] [id number] [address] [place] [address], [place] [address] Feb, [facility] [address] [id number] [address] [place] [address], [place] [address] Jan, [facility] [address] [id number] [address] [place] [address], [place] [address] Jan, [facility] [address] [id number] [address] [place] [address], [place] [address] Jan, [facility] [address] [id number] [address] [place] [address], [place] [address] Jan, [facility] [address] [id number] [address] [place] [address], [place] [address] December, [facility] [address] [id number] [address] [place] [address], [place] [address] December, [facility] [address] [id number] [address] [place] [address], [place] [address] December, [facility] [address] [id number] [address] [place] [address], [place] [address] December, [facility] [address] [id number] [address] [place] [address], [place] [address] December, [facility] [address] [id number] [address] [place] [address], [place] [address] December, [facility] [address] [id number] [address] [place] [address], [place] [address] December, [facility] [address] [id number] [address] [place] [address], [place] [address] December, [facility] [address] [id number] [address] [place] [address], [place] [address] December, [facility] [address] [id number] [address] [place] [address], [place] [address] Nov, [facility] [address] [id number] [address] [place] [address], [place] [address] Nov, [facility] [address] [id number] [address] [place] [address], [place] [address] Nov, [facility] [address] [id number] [address] [place] [address], [place] [address] Nov, [facility] [address] [id number] [address] [place] [address], [place] [address] Nov, [facility] [address] [id number] [address] [place] [address], [place] [address] Nov, [facility] [address] [id number] [address] [place] [address], [place] [address] Nov, [facility] [address] [id number] [address] [place] [address], [place] [address] Nov, [facility] [address] [id number] [address] [place] [address], [place] [address] Nov, [facility] [address] [id number] [address] [place] [address], [place] [address] Nov, [facility] [address] [id number] [address] [place] [address], [place] [address] Oct, [facility] [address] [id number] [address] [place] [address], [place] [address] Oct, [facility] [address] [id number] [address] [place] [address], [place] [address] Sep, [facility] [address] [id number] [address] [place] [address], [place] [address] Sep, [facility] [address] [id number] [address] [place] [address], [place] [address] Aug, [facility] [address] [id number] [address] [place] [address], [place] [address] Aug, [facility] [address] [id number] [address] [place] [address], [place] [address] Aug, [facility] [address] [id number] [address] [place] [address], [place] [address] Aug, [facility] [address] [id number] [address] [place] [address], [place] [address] Jul, [facility] [address] [id number] [address] [place] [address], [place] [address] Jul, [facility] [address] [id number] [address] [place] [address], [place] [address] Jul, [facility] [address] [id number] [address] [place] [address], [place] [address] Jul, [facility] [address] [id number] [address] [place] [address], [place] [address] Jun, [facility] [address] [id number] [address] [place] [address], [place] [address] Jun, [facility] [address] [id number] [address] [place] [address], [place] [address] May, [facility] [address] [id number] [address] [place] [address], [place] [address] May, [facility] [address] [id number] [address] [place] [address], [place] [address] May, [facility] [address] [id number] [address] [place] [address], [place] [address] May, [facility] [address] [id number] [address] [place] [address], [place] [address] May, [facility] [address] [id number] [address] [place] [address], [place] [address] May, [facility] [address] [id number] [address] [place] [address], [place] [address] Apr, [facility] [address] [id number] [address] [place] [address], [place] [address] Apr, [facility] [address] [id number] [address] [place] [address], [place] [address] Apr, [facility] [address] [id number] [address] [place] [address], [place] [address] Feb, [facility] [address] [id number] [address] [place] [address], [place] [address] Jan, [facility] [address] [id number] [address] [place] [address], [place] [address] Jan, [facility] [address] [id number] [address] [place] [address], [place] [address] Jan, [facility] [address] [id number] [address] [place] [address], [place] [address] Jan, [facility] [address] [id number] [address] [place] [address], [place] [address] December, [facility] [address] [id number] [address] [place] [address], [place] [address] December, [facility] [address] [id number] [address] [place] [address], [place] [address] Nov, [facility] [address] [id number] [address] [place] [address], [place] [address] Nov, [facility] [address] [id number] [address] [place] [address], [place] [address] Nov, [facility] [address] [id number] [address] [place] [address], [place] [address] 11 Nov, 2012 [facility] [address] [id number] [address] [place] [address], [place] [address] 08 Nov, 2012 [facility] [address] [id number] [address] [place] [address], [place] [address] 08 Nov, 2012 [facility] [address] [id number] [address] [place] [address], [place] [address] 03 Nov, 2012 [facility] [address] [id number] [address] [place] [address], [place] [address] 27 Oct, 2012 [facility] [address] [id number] [address] [place] [address], [place] [address] 18 Oct, 2012 [facility] [address] [id number] [address] [place] [address], [place] [address] 14 Oct, 2012 [facility] [address] [id number] [address] [place] [address], [place] [address] 13 Oct, 2012 [facility] [address] [id number] [address] [place] [address], [place] [address] 12 Oct, 2012 [facility] [address] [id number] [address] [place] [address], [place] [address] Oct, [facility] [address] [id number] [address] [place] [address], [place] [address] 08 Oct, 2012 [facility] [address] [id number] [address] [place] [address], [place] [address] Sep, [facility] [address] [id number] [address] [place] [address], [place] [address] Sep, [facility] [address] [id number] [address] [place] [address], [place] [address] Aug, [facility] [address] [id number] [address] [place] [address], [place] [address] Aug, [facility] [address] [id number] [address] [place] [address], [place] [address] Jul, [facility] [address] [id number] [address] [place] [address] Jul, [facility] [address] [id number] [address] [place] [id number] Jul, [facility] [address] [id number] [address] [place] [id number] Jul, [facility] [address] [id number] [address] [place] [id number] Jul, [facility] [address] [id number] [address] [place] [id number] Jul, [facility] [address] [facility] [id number] [address] [place] [id number] Jul, [facility] [address] [id number] [address] [place] [id number] Jul, [facility] [address] [facility] [id number] [address] [place] [id number] Jun, [facility] [address] [id number] [address] [place] [id number] Jun, IMMUNIZATIONS No Known Immunizations SOCIAL HISTORY [...]
--- OUTSIDE RECORDS SUMMARY | 2020-02-11 03:08 | XMS REPORT ---
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 Name Role Phone Migration, Doctor Unavailable Unavailable PROBLEMS Type Condition ICD9-CM Code [id number] Code Onset Dates Condition S tatus SNOMED Code Problem Numbness and tingling in hands R20.2 Active 119965170 Problem History of abnormal cervical Pap smear Z87.898 Active 050378317 Problem Stasis dermatitis of both legs I87.2 Active 72614819 Problem Pre-diabetes R73.09 Active 6358494 02 Problem Morbid obesity due to excess calories E66.01 Active 734587938 Problem GERD (gastroesophageal reflux disease) K21.9 Active 084492471 Problem Mood disorder F39 Active 723804 05 Problem Chronic pain G89.29 Active 8809118 1 Problem BMI 45.0-49.9, adult Z68.42 Active 990056720 Problem Essential hypertension I10 Active 94392355 Problem Primary insomnia F51.01 Active 397 2004 Problem Chronic recurrent major depressive disorder F33.9 Active 0218185 ALLERGIES No Information ENCOUNTERS Encounter Location Date Diagnosis [facility] [id number] [place] [address] December, [facility] [id number] [place] [address] December, Chronic pain G89.29 [facility] [address] [facility] [id number] [address] [place] [address] Nov, BMI 45.0-49.9, adult Z68.42 and Chronic pain G89.29 [facility] [address] [facility] [id number] [address] [place] [address] Oct, BMI 45.0-49.9, adult Z68.42 and Chronic pain G89.29 [facility] [id number] [place] [address] 10 Sep, 2019 BMI 45.0-49.9, adult Z68.42 and Chronic pain G89.29 [place] [id number] [place] [address] 10 Sep, 2019 Essential hypertension I10 [place] [id number] [place] [address] 05 Sep, 2019 Tinea corporis B35.4 [place] [id number] [place] [address] Aug, Acute non-recurrent maxillar y sinusitis J01.00 and Tinea corporis B35.4 [place] [id number] [place] [address] Aug, BMI 45.0-49.9, adult Z68.42 and Chronic pain G89.29 [place] [id number] [place] [address] Jul, BMI 45.0-49.9, adult Z68.42 and Chronic pain G89.29 [place] [address] [place] [address] Jul, Pre-diabetes R73.09 [place] [id number] [place] [address] Jun, BMI 45.0-49.9, adult Z68.42 and Chronic pain G89.29 [place] [id number] [place] [address] Jun, Acute non-recurrent maxillar y sinusitis J01.00 [place] [id number] [place] [address] May, Chronic pain G89.29 and BMI 45.0-49.9, adult Z68.42 [place] [id number] [place] [address] Apr, Chronic pain G89.29 and BMI 45.0-49.9, adult Z68.42 [facility] [id number] [place] [address] Apr, Mood disorder F39 [facility] [id number] [place] [address] Mar, Chronic pain G89.29 and BMI 45.0-49.9, adult Z68.42 [facility] [id number] [place] [address] Mar, Morbid obesity E66.01 ; 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 ; Morbid obesity due to excess calories E66.01 and High risk medication use Z79.899 [place] [id number] [place] [address] Mar, Chronic pain G89.29 and BMI 45.0-49.9, adult Z68.42 [place] [id number] [place] [address] Feb, [facility] [id number] [place] [address] Feb, Chronic pain G89.29 and BMI 45.0-49.9, adult Z68.42 [place] [id number] [place] [address] Jan, [facility] [id number] [place] [address] Jan, Chronic pain G89.29 and BMI 45.0-49.9, adult Z68.42 [facility] [id number] [place] [address] Jan, [place] [id number] [place] [address] December, Chronic pain G89.29 and BMI 45.0-49.9, adult Z68.42 [facility] [id number] [place] [address] Nov, Morbid obesity E66.01 and Ce llulitis of leg, left L03.116 [place] [address] [place] [address] 15 Nov, 2018 Cellulitis of left lower ext remity L03.116 and Morbid obesity E66.01 [facility] [id number] [place] [address] Nov, [place] [address] [address] Nov, Morbid obesity E66.01 and Ce llulitis of left lower extremity L03.116 [place] [id number] [place] [address] Nov, Chronic pain G89.29 and BMI 45.0-49.9, adult Z68.42 [place] [address] [address] Oct, BMI 45.0-49.9, adult Z68.42 and Chronic pain G89.29 [place] [address] [address] 14 Sep, 2018 BMI 45.0-49.9, adult Z68.42 and Chronic pain G89.29 [place] [id number] [place] [address] 05 Sep, 2018 BMI 45.0-49.9, adult Z68.42 and Essential hypertension I10 [place] [id number] [place] [address] Aug, BMI 45.0-49.9, adult Z68.42 ; Chronic pain G89.29 ; Essential hypertension I10 and Primary insomnia F51.01 [place] [id number] [place] [address] Aug, Chronic pain G89.29 [place] [id number] [place] [address] Jul, Chronic pain G89.29 [facility] [address] [id number] [address] [place] [address] Jun, Chronic pain G89.29 [facility] [address] [id number] [address] [place] [address] May, Chronic pain G89.29 [facility] [address] [facility] [id number] [address] [place] [address] May, BMI 40.0-44.9, adult Z68.41 ; Other chronic pain G89.29 ; Pain in right hip M25.551 and Acute pain of left knee M25.562 [facility] [address] [id number] [address] [place] [address] May, Chronic pain G89.29 [facility] [address] [id number] [address] [place] [address] Apr, Chronic pain G89.29 [facility] [address] [id number] [address] [place] [address] Mar, Poison josep L23.7 [facility] [address] [id number] [address] [place] [address] Mar, Chronic pain G89.29 [facility] [address] [facility] [id number] [address] [place] [address] Feb, Chronic pain G89.29 [facility] [address] [id number] [address] [place] [address] Feb, Poison josep L23.7 [facility] [address] [facility] [id number] [address] [place] [address] Jan, Chronic pain G89.29 [facility] [address] [facility] [id number] [address] [place] [address] December, Chronic pain G89.29 [facility] [address] [facility] [id number] [address] [place] [address] Nov, Long-term use of high-risk m edication Z79.899 [facility] [address] [facility] [id number] [address] [place] [address] Nov, Chronic pain G89.29 [facility] [address] [facility] [id number] [address] [place] [address] Oct, Chronic pain G89.29 ; Pre-di abetes R73.09 ; Long-term use of high- risk medication Z79.899 ; Allergic rhinitis, unspecified seasonality, unspecified trigger J30.9 ; BMI 45.0-49.9, adult Z68.42 and Essential hypertension I10 [place] [address] [address] Oct, Chronic pain G89.29 [place] [address] [address] Sep, Chronic pain G89.29 [place] [address] [address] Aug, Chronic pain G89.29 [place] [address] [address] Jul, [place] [address] [address] Jul, [place] [address] [address] Jun, Chronic pain G89.29 ; BMI 45 .0-49.9, adult Z68.42 ; Pre-diabetes R73.09 ; Essential hypertension I10 ; GERD (gastroesophageal reflux disease) K21.9 ; Yeast dermatitis B37.2 ; Dysuria R30.0 ; Acute non-recurrent maxillary sinusitis J01.00 and Acute cystitis with hematuria N30.01 [place] [id number] [place] [address] Jun, Chronic pain G89.29 [place] [address] [address] Jun, Acute non-recurrent maxillar y sinusitis J01.00 and BMI 45.0-49.9, adult Z68.42 [place] [address] [address] May, [place] [address] [address] May, Chronic pain G89.29 [place] [address] [address] May, [place] [address] [address] Apr, Chronic pain G89.29 [address] [address] Mar, [place] [address] [address] Mar, Essential hypertension I10 a nd Pre-diabetes R73.09 [address] [address] [address] Mar, Chronic pain G89.29 ; Essent ial hypertension I10 ; Depressive disorder, not elsewhere classified F32.9 ; GERD (gastroesophageal reflux disease) K21.9 ; Pre-diabetes R73.09 ; Stasis dermatitis of both legs I87.2 and Acute non-recurrent maxillary sinusitis J01.00 [address] [address] [address] Mar, Chronic pain G89.29 [place] [address] [address] Mar, Achilles tendinitis of right lower extremity M76.61 and Tinea corporis B35.4 [address] [address] [address] [address] Feb, Yeast dermatitis B37.2 [place] [address] [facility] [address] [facility] [id number] [address] [place] [address] 14 Feb, 2017 Candidal intertrigo B37.2 an d Acute right ankle pain M25.571 [place] [address] [facility] [id number] [address] [place] [address] 12 Feb, 2017 Chronic pain G89.29 [place] [id number] [place] [address] Jan, [place] [id number] [place] [address] Jan, Chronic pain G89.29 [place] [id number] [place] [address] December, Chronic pain G89.29 ; Essent ial hypertension I10 ; Depressive disorder, not elsewhere classified F32.9 ; GERD (gastroesophageal reflux disease) K21.9 ; Pre-diabetes R73.09 ; Screening breast examination Z12.39 ; Stasis dermatitis of both legs I87.2 and Yeast dermatitis B37.2 [place] [id number] [place] [address] Nov, Chronic pain G89.29 [place] [id number] [place] [address] Nov, Cellulitis of left lower ext remity L03.116 [place] [id number] [place] [address] Nov, Cellulitis of left lower ext remity L03.116 [place] [address] [facility] [address] [facility] [id number] [address] [place] [address] Oct, Yeast dermatitis B37.2 [place] [address] [facility] [facility] [id number] [address] [place] [address] Oct, Chronic pain G89.29 [place] [id number] [place] [address] Sep, Chronic pain G89.29 ; Essent ial hypertension I10 ; Depressive disorder, not elsewhere classified F32.9 and GERD (gastroesophageal reflux disease) K21.9 [facility] [address] [address] Aug, Chronic pain G89.29 [facility] [address] [address] Aug, Cough R05 ; Rash R21 and Vinay h and nonspecific skin eruption R21 [place] [address] [address] Jul, Chronic pain G89.29 [place] [address] [address] Jun, Chronic pain G89.29 ; Bronch itis J40 ; Essential hypertension I10 ; Depressive disorder, not elsewhere classified F32.9 ; GERD (gastroesophageal reflux disease) K21.9 and History of long-term use of multiple prescription drugs Z92.29 [place] [address] [address] Jun, Bronchitis J40 ; Chills R68. 83 and Sore throat J02.9 [address] [address] [address] May, [place] [address] [address] Apr, [facility] [address] [address] Apr, Acute mucoid otitis media of both ears H65.113 [address] [address] [address] 07 Apr, 2016 Yeast dermatitis B37.2 and H ematuria R31.9 [place] [address] [address] Mar, [place] [address] [address] Mar, [place] [id number] [place] [address] Feb, Left anterior knee pain M25. 562 [place] [id number] [place] [address] Feb, Chronic pain G89.29 ; Essent ial hypertension I10 ; Depressive disorder, not elsewhere classified F32.9 ; GERD (gastroesophageal reflux disease) K21.9 and History of long-term use of multiple prescription drugs Z92.29 [place] [id number] [place] [address] Jan, [place] [address] [address] Jan, Well woman exam Z01.419 ; BM I 45.0-49.9, adult Z68.42 ; Family history of diabetes mellitus Z83.3 and Chronic pain G89.29 [place] [id number] [place] [address] December, Chronic pain G89.29 ; Essent ial hypertension I10 ; Depressive disorder, not elsewhere classified F32.9 ; GERD (gastroesophageal reflux disease) K21.9 ; 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 ; History of long-term use of multiple prescription drugs Z92.29 and Obesity E66.9 [place] [id number] [place] [address] Oct, [place] [address] [address] 07 Oct, 2015 Well woman exam Z01.419 [...] smear Z12.4 and No natural teeth K00.0 [facility] [id number] [place] [address] Oct, [place] [id number] [place] [address] Sep, Chronic pain G89.29 ; Essent ial hypertension I10 ; GERD (gastroesophageal reflux disease) K21.9 ; 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 ; Skin infection L08.9 and History of long-term use of multiple prescription drugs Z92.29 [place] [address] [address] Aug, [place] [address] [address] Jul, [place] [address] [address] Jul, [place] [address] [address] Jul, Upper respiratory infection J06.9 [place] [address] [address] Jul, Depressive disorder, not els ewhere classified F32.9 [place] [address] [address] Jul, Chronic pain 338.29 [place] [id number] [place] [address] Jul, Chronic pain G89.29 [place] [id number] [place] [address] Jun, Poison josep L23.7 [place] [id number] [place] [address] Jun, Allergic contact dermatitis due to plants, except food L23.7 [place] [id number] [place] [address] Jun, Essential hypertension I10 ; Chronic pain G89.29 ; GERD (gastroesophageal reflux disease) K21.9 and Numbness and tingling in hands R20.2 [place] [address] [address] May, [place] [address] [address] Apr, [place] [address] [address] Mar, [place] [address] [address] Feb, Abdominal pain, left lateral 789.09 and Constipation 564.[address] [address] Feb, Depressive disorder, not els ewhere classified 311 and No condition on Curtis II V71.[address] [address] Feb, Spider bite 989.5 and Depres homar [address] [address] Feb, [address] [address] Feb, Chronic pain 338.29 ; Arthro zonia 716.90 and GERD (gastroesophageal reflux disease) 530.81 [place] [address] [address] Jan, Insect bites 919.[address] [address] Jan, [place] [address] [address] December, Skin infection, bacterial 68 6.9 ; Conjunctivitis 372.30 and Insect bites 919.4 [address] [place] [address] December, Chronic pain 338.29 ; Arthro zonia 716.90 ; Skin infection, bacterial 686.9 and Conjunctivitis 372.30 [facility] [address] [id number] [address] [place] [address] December, [facility] [address] [id number] [address] [place] [address] Nov, [facility] [address] [id number] [address] [place] [address] Nov, [facility] [address] [id number] [address] [place] [address] Oct, [facility] [address] [id number] [address] [place] [address] Oct, [facility] [address] [id number] [address] [place] [address] Sep, [facility] [address] [id number] [address] [place] [address] Sep, [facility] [address] [id number] [address] [place] [address] Aug, [facility] [address] [id number] [address] [place] [address] Aug, [facility] [address] [id number] [address] [place] [address] Aug, [facility] [address] [id number] [address] [place] [address] Aug, [facility] [address] [id number] [address] [place] [address] Jul, [facility] [address] [id number] [address] [place] [address] Jul, [facility] [address] [id number] [address] [place] [address] Jul, [facility] [place] [facility] [address] [id number] [address] [place] [address], [place] [address] Jul, [facility] [address] [id number] [address] [place] [address], [place] [address] Jul, [facility] [address] [id number] [address] [place] [address], [place] [address] Jul, [facility] [address] [id number] [address] [place] [address], [place] [address] Jul, [facility] [address] [id number] [address] [place] [address], [place] [address] Jul, [facility] [address] [id number] [address] [place] [address], [place] [address] Jul, [facility] [address] [id number] [address] [place] [address], [place] [address] Jun, [facility] [address] [id number] [address] [place] [address], [place] [address] Jun, [facility] [address] [id number] [address] [place] [address], [place] [address] Jun, [facility] [address] [id number] [address] [place] [address], [place] [address] Jun, [facility] [address] [id number] [address] [place] [address], [place] [address] Jun, [facility] [address] [id number] [address] [place] [address], [place] [address] Jun, [facility] [address] [id number] [address] [place] [address], [place] [address] Jun, [facility] [place] [facility] [address] [id number] [address] [place] [address], [place] [address] Jun, [facility] [address] [id number] [address] [place] [address], [place] [address] May, [facility] [place] [facility] [address] [id number] [address] [place] [address], [place] [address] 17 May, 2014 [facility] [place] [facility] [address] [id number] [address] [place] [address], [place] [address] 16 May, 2014 [facility] [place] [facility] [address] [id number] [address] [place] [address], [place] [address] May, [facility] [address] [id number] [address] [place] [address], [place] [address] May, [facility] [address] [id number] [address] [place] [address], [place] [address] Apr, [facility] [address] [id number] [address] [place] [address], [place] [address] Apr, [facility] [address] [id number] [address] [place] [address], [place] [address] Apr, [facility] [address] [id number] [address] [place] [address], [place] [address] Apr, [facility] [address] [id number] [address] [place] [address], [place] [address] 18 Apr, 2014 [facility] [address] [id number] [address] [place] [address], [place] [address] Apr, [facility] [address] [id number] [address] [place] [address], [place] [address] Apr, [facility] [address] [id number] [address] [place] [address], [place] [address] Apr, [facility] [address] [id number] [address] [place] [address], [place] [address] Apr, [facility] [address] [id number] [address] [place] [address], [place] [address] Apr, [facility] [address] [id number] [address] [place] [address], [place] [address] Mar, [facility] [address] [id number] [address] [place] [address], [place] [address] Mar, [facility] [address] [id number] [facility] [place] [address] Mar, [facility] [address] [id number] [address] [place] [address], [place] [address] Mar, [facility] [address] [id number] [address] [place] [address], [place] [address] Mar, [facility] [address] [id number] [address] [place] [address], [place] [address] Mar, [facility] [address] [id number] [address] [place] [address], [place] [address] Feb, [facility] [address] [id number] [address] [place] [address], [place] [address] Feb, [facility] [address] [id number] [address] [place] [address], [place] [address] Jan, [facility] [address] [id number] [address] [place] [address], [place] [address] Jan, [facility] [address] [id number] [address] [place] [address], [place] [address] Jan, [facility] [address] [id number] [address] [place] [address], [place] [address] Jan, [facility] [address] [id number] [address] [place] [address], [place] [address] December, [facility] [address] [id number] [address] [place] [address], [place] [address] December, [facility] [address] [id number] [address] [place] [address], [place] [address] December, [facility] [address] [id number] [address] [place] [address], [place] [address] December, [facility] [address] [id number] [address] [place] [address], [place] [address] December, [facility] [address] [id number] [address] [place] [address], [place] [address] December, [facility] [address] [id number] [address] [place] [address], [place] [address] December, [facility] [address] [id number] [address] [place] [address], [place] [address] December, [facility] [address] [id number] [address] [place] [address], [place] [address] December, [facility] [address] [id number] [address] [place] [address], [place] [address] Nov, [facility] [address] [id number] [address] [place] [address], [place] [address] Nov, [facility] [address] [id number] [address] [place] [address], [place] [address] Nov, [facility] [address] [id number] [address] [place] [address], [place] [address] Nov, [facility] [address] [id number] [address] [place] [address], [place] [address] Nov, [facility] [address] [id number] [address] [place] [address], [place] [address] Nov, [facility] [address] [id number] [address] [place] [address], [place] [address] Nov, [facility] [address] [id number] [address] [place] [address], [place] [address] Nov, [facility] [address] [id number] [address] [place] [address], [place] [address] Nov, [facility] [address] [id number] [address] [place] [address], [place] [address] Nov, [facility] [address] [id number] [address] [place] [address], [place] [address] Oct, [facility] [address] [id number] [address] [place] [address], [place] [address] Oct, [facility] [address] [id number] [address] [place] [address], [place] [address] Sep, [facility] [address] [id number] [address] [place] [address], [place] [address] Sep, [facility] [address] [id number] [address] [place] [address], [place] [address] Aug, [facility] [address] [id number] [address] [place] [address], [place] [address] Aug, [facility] [address] [id number] [address] [place] [address], [place] [address] Aug, [facility] [address] [id number] [address] [place] [address], [place] [address] Aug, [facility] [address] [id number] [address] [place] [address], [place] [address] Jul, [facility] [address] [id number] [address] [place] [address], [place] [address] Jul, [facility] [address] [id number] [address] [place] [address], [place] [address] Jul, [facility] [address] [id number] [address] [place] [address], [place] [address] Jul, [facility] [address] [id number] [address] [place] [address], [place] [address] Jun, [facility] [address] [id number] [address] [place] [address], [place] [address] Jun, [facility] [address] [id number] [address] [place] [address], [place] [address] May, [facility] [address] [id number] [address] [place] [address], [place] [address] May, [facility] [address] [id number] [address] [place] [address], [place] [address] May, [facility] [address] [id number] [address] [place] [address], [place] [address] May, [facility] [address] [id number] [address] [place] [address], [place] [address] May, [facility] [address] [id number] [address] [place] [address], [place] [address] May, [facility] [address] [id number] [address] [place] [address], [place] [address] Apr, [facility] [address] [id number] [address] [place] [address], [place] [address] Apr, [facility] [address] [id number] [address] [place] [address], [place] [address] Apr, [facility] [address] [id number] [address] [place] [address], [place] [address] Feb, [facility] [address] [id number] [address] [place] [address], [place] [address] Jan, [facility] [address] [id number] [address] [place] [address], [place] [address] Jan, [facility] [address] [id number] [address] [place] [address], [place] [address] Jan, [facility] [address] [id number] [address] [place] [address], [place] [address] Jan, [facility] [address] [id number] [address] [place] [address], [place] [address] December, [facility] [address] [id number] [address] [place] [address], [place] [address] December, [facility] [address] [id number] [address] [place] [address], [place] [address] Nov, [facility] [address] [id number] [address] [place] [address], [place] [address] Nov, [facility] [address] [id number] [address] [place] [address], [place] [address] Nov, [facility] [address] [id number] [address] [place] [address], [place] [address] 11 Nov, 2012 [facility] [address] [id number] [address] [place] [address], [place] [address] 08 Nov, 2012 [facility] [address] [id number] [address] [place] [address], [place] [address] 08 Nov, 2012 [facility] [address] [id number] [address] [place] [address], [place] [address] 03 Nov, 2012 [facility] [address] [id number] [address] [place] [address], [place] [address] 27 Oct, 2012 [facility] [address] [id number] [address] [place] [address], [place] [address] 18 Oct, 2012 [facility] [address] [id number] [address] [place] [address], [place] [address] 14 Oct, 2012 [facility] [address] [id number] [address] [place] [address], [place] [address] 13 Oct, 2012 [facility] [address] [id number] [address] [place] [address], [place] [address] 12 Oct, 2012 [facility] [address] [id number] [address] [place] [address], [place] [address] Oct, [facility] [address] [id number] [address] [place] [address], [place] [address] 08 Oct, 2012 [facility] [address] [id number] [address] [place] [address], [place] [address] Sep, [facility] [address] [id number] [address] [place] [address], [place] [address] Sep, [facility] [address] [id number] [address] [place] [address], [place] [address] Aug, [facility] [address] [id number] [address] [place] [address], [place] [address] Aug, [facility] [address] [id number] [address] [place] [address], [place] [address] Jul, [facility] [address] [id number] [address] [place] [address] Jul, [facility] [address] [id number] [address] [place] [address] Jul, [facility] [address] [id number] [address] [place] [address] Jul, [facility] [address] [id number] [address] [place] [address] Jul, [facility] [address] [id number] [address] [place] [address] Jul, [facility] [address] [id number] [address] [place] [address] Jul, [facility] [address] [id number] [address] [place] [id number] Jul, [facility] [address] [id number] [address] [place] [address] Jun, [facility] [address] [id number] [address] [place] [address] Jun, IMMUNIZATIONS No Known Immunizations SOCIAL HISTORY Never Assessed REASON FOR VISIT PLAN OF CARE VITAL SIGNS Height 65 in 2013-01-18 Weight 243 lbs 2013-01-18 Temperature 98.5 degrees Fahrenheit 2013-01-18 Heart Rate 84 bpm 2013-01-18 Respiratory Rate 20 2013-01-18 Blood pressure systolic 120 mmHg 2013-01-18 Blood pressure diastolic 82 mmHg 2013-01-18 MEDICATIONS Unknown Medications RESULTS No Results PROCEDURES [...] -- total 11/2012 Hospitalization History ER- in [place] due to left knee 8
--- OUTSIDE RECORDS SUMMARY | 2020-02-11 03:09 | XMS REPORT ---
Author Author Madeline CHIANG Organization [facility] Address [address] [place] [address] Care Team Providers Care Music Specialist Name Role Phone KWESIKennedy DANG Unavailable PROBLEMS Type Condition ICD9-CM Code AKE80-YK Code Onset Dates Condition S tatus SNOMED Code Problem Numbness and tingling in hands R20.2 Active 208847757 Problem History of abnormal cervical Pap smear Z87.898 Active 492450725 Problem Stasis dermatitis of both legs I87.2 Active 04869360 Problem Pre-diabetes R73.09 Active 6303271 02 Problem Morbid obesity due to excess calories E66.01 Active 908592735 Problem GERD (gastroesophageal reflux disease) K21.9 Active 461173892 Problem Mood disorder F39 Active 994753 05 Problem Chronic pain G89.29 Active 7665353 1 Problem BMI 45.0-49.9, adult Z68.42 Active 594143334 Problem Essential hypertension I10 Active 82093559 Problem Primary insomnia F51.01 Active 397 2004 Problem Chronic recurrent major depressive disorder F33.9 Active 6209961 ALLERGIES No Information ENCOUNTERS Encounter Location Date Diagnosis [place] [address] [address] [facility] [id number] [address] [place] [address] December, [place] [id number] [facility] [id number] [address] [place] [address] Nov, BMI 45.0-49.9, adult Z68.42 and Chronic pain G89.29 [facility] [address] [place] [id number] [address] [place] [address] Oct, BMI 45.0-49.9, adult Z68.42 and Chronic pain G89.29 [place] [address] [address] [facility] [id number] [address] [place] [address] Sep, BMI 45.0-49.9, adult Z68.42 and Chronic pain G89.29 [place] [address] [address] [facility] [id number] [address] [place] [address] 10 Sep, 2019 Essential hypertension I10 [place] [address] [address] [facility] [id number] [address] [place] [address] 05 Sep, 2019 Tinea corporis B35.4 [place] [address] [address] [facility] [id number] [address] [place] [address] 20 Aug, 2019 Acute non-recurrent maxillar y sinusitis J01.00 and Tinea corporis B35.4 [place] [address] [place] [id number] [address] [place] [address] 14 Aug, 2019 BMI 45.0-49.9, adult Z68.42 and Chronic pain G89.29 [place] [address] [place] [id number] [address] [place] [address] Jul, BMI 45.0-49.9, adult Z68.42 and Chronic pain G89.29 [place] [address] [place] [id number] [address] [place] [address] Jul, Pre-diabetes R73.09 [place] [address] [place] [id number] [address] [place] [address] Jun, BMI 45.0-49.9, adult Z68.42 and Chronic pain G89.29 [place] [address] [place] [id number] [address] [place] [address] Jun, Acute non-recurrent maxillar y sinusitis J01.00 [place] [address] [address] [facility] [id number] [address] [place] [address] May, Chronic pain G89.29 and BMI 45.0-49.9, adult Z68.42 [place] [address] [place] [id number] [address] [place] [address] Apr, Chronic pain G89.29 and BMI 45.0-49.9, adult Z68.42 [facility] [address] [facility] [id number] [address] [place] [address] Apr, Mood disorder F39 [facility] [address] [facility] [id number] [address] [place] [address] Mar, Chronic pain G89.29 and BMI 45.0-49.9, adult Z68.42 [facility] [address] [place] [id number] [address] [place] [address] Mar, Morbid obesity E66.01 ; [employer]ter david recurrent major depressive disorder F33.9 ; Morbid obesity due to excess calories E66.01 and High risk medication use Z79.899 [place] [address] [place] [id number] [address] [place] [address] Mar, Chronic pain G89.29 and BMI 45.0-49.9, adult Z68.42 [place] [id number] [place] [address] Feb, [facility] [address] [place] [id number] [address] [place] [address] Feb, Chronic pain G89.29 and BMI 45.0-49.9, adult Z68.42 [facility] [address] [place] [id number] [address] [place] [address] Jan, [place] [address] [place] [id number] [address] [place] [address] Jan, Chronic pain G89.29 and BMI 45.0-49.9, adult Z68.42 [facility] [address] [facility] [id number] [address] [place] [address] Jan, [facility] [address] [place] [id number] [address] [place] [address] December, Chronic pain G89.29 and BMI 45.0-49.9, adult Z68.42 [facility] [address] [place] [id number] [address] [place] [address] Nov, Morbid obesity E66.01 and Ce llulitis of leg, left L03.116 [place] [id number] [facility] [id number] [address] [place] [address] 15 Nov, 2018 Cellulitis of left lower ext remity L03.116 and Morbid obesity E66.01 [facility] [address] [facility] [id number] [address] [place] [address] Nov, [facility] [address] [place] [id number] [place] [address] Nov, Morbid obesity E66.01 and Ce llulitis of left lower extremity L03.116 [place] [address] [place] [id number] [place] [address] Nov, Chronic pain G89.29 and BMI 45.0-49.9, adult Z68.42 [place] [address] [address] Oct, BMI 45.0-49.9, adult Z68.42 and Chronic pain G89.29 [place] [address] [address] 14 Sep, 2018 BMI 45.0-49.9, adult Z68.42 and Chronic pain G89.29 [place] [address] [place] [id number] [address] [place] [address] 05 Sep, 2018 BMI 45.0-49.9, adult Z68.42 and Essential hypertension I10 [place] [address] [place] [id number] [address] [place] [address] Aug, BMI 45.0-49.9, adult Z68.42 ; Chronic pain G89.29 ; Essential hypertension I10 and Primary insomnia F51.01 [place] [address] [place] [id number] [address] [place] [address] Aug, Chronic pain G89.29 [place] [address] [address] Jul, Chronic pain G89.29 [facility] [address] [id number] [address] [place] [address] Jun, Chronic pain G89.29 [facility] [address] [facility] [id number] [address] [place] [address] May, Chronic pain G89.29 [facility] [address] [facility] [id number] [address] [place] [address] May, BMI 40.0-44.9, adult Z68.41 ; Other chronic pain G89.29 ; Pain in right hip M25.551 and Acute pain of left knee M25.562 [facility] [address] [id number] [address] [place] [address] May, Chronic pain G89.29 [facility] [address] [facility] [id number] [address] [place] [address] Apr, Chronic pain G89.29 [facility] [address] [id number] [address] [place] [address] Mar, Poison josep L23.7 [facility] [address] [facility] [id number] [address] [place] [address] Mar, Chronic pain G89.29 [facility] [address] [facility] [id number] [address] [place] [address] Feb, Chronic pain G89.29 [facility] [address] [facility] [id number] [address] [place] [address] Feb, Poison josep L23.7 [facility] [address] [facility] [id number] [address] [place] [address] Jan, Chronic pain G89.29 [facility] [address] [facility] [id number] [address] [place] [address] December, Chronic pain G89.29 [facility] [address] [facility] [id number] [address] [place] [address] Nov, Long-term use of high-risk m edication Z79.899 [facility] [address] [facility] [id number] [place] [address] Nov, Chronic pain G89.29 [facility] [address] [facility] [id number] [address] [place] [address] Oct, Chronic pain G89.29 ; Pre-di abetes R73.09 ; Long-term use of high- risk medication Z79.899 ; Allergic rhinitis, unspecified seasonality, unspecified trigger J30.9 ; BMI 45.0-49.9, adult Z68.42 and Essential hypertension I10 [place] [address] [address] Oct, Chronic pain G89.29 [place] [address] [place] [id number] [place] [address] Sep, Chronic pain G89.29 [place] [address] [address] Aug, Chronic pain G89.29 [place] [address] [address] Jul, [place] [address] [address] Jul, [place] [address] [address] Jun, Chronic pain G89.29 ; BMI 45 .0-49.9, adult Z68.42 ; Pre-diabetes R73.09 ; Essential hypertension I10 ; GERD (gastroesophageal reflux disease) K21.9 ; Yeast dermatitis B37.2 ; Dysuria R30.0 ; Acute non-recurrent maxillary sinusitis J01.00 and Acute cystitis with hematuria N30.01 [place] [address] [place] [id number] [address] [place] [address] 13 Jun, 2017 Chronic pain G89.29 [place] [address] [address] Jun, Acute non-recurrent maxillar y sinusitis J01.00 and BMI 45.0-49.9, adult Z68.42 [place] [address] [place] [id number] [address] [place] [address] May, [place] [address] [place] [id number] [address] [place] [address] May, Chronic pain G89.29 [place] [address] [place] [id number] [address] [place] [address] May, [place] [address] [place] [id number] [address] [place] [address] Apr, Chronic pain G89.29 [place] [address] [place] [id number] [address] [place] [address] Mar, [place] [address] [address] Mar, Essential hypertension I10 a nd Pre-diabetes R73.09 [place] [address] [place] [id number] [place] [address] Mar, Chronic pain G89.29 ; Essent ial hypertension I10 ; Depressive disorder, not elsewhere classified F32.9 ; GERD (gastroesophageal reflux disease) K21.9 ; Pre-diabetes R73.09 ; Stasis dermatitis of both legs I87.2 and Acute non-recurrent maxillary sinusitis J01.00 [place] [address] [place] [id number] [address] [place] [address] Mar, Chronic pain G89.29 [place] [address] [place] [id number] [address] [place] [address] Mar, Achilles tendinitis of right lower extremity M76.61 and Tinea corporis B35.4 [place] [address] [place] [id number] [address] [place] [address] Feb, Yeast dermatitis B37.2 [place] [address] [place] [id number] [address] [place] [address] 14 Feb, 2017 Candidal intertrigo B37.2 an d Acute right ankle pain M25.571 [place] [address] [place] [id number] [address] [place] [address] 12 Feb, 2017 Chronic pain G89.29 [place] [address] [place] [id number] [address] [place] [address] Jan, [place] [address] [place] [id number] [place] [address] Jan, Chronic pain G89.29 [place] [address] [place] [id number] [address] [place] [address] December, Chronic pain G89.29 ; Essent ial hypertension I10 ; Depressive disorder, not elsewhere classified F32.9 ; GERD (gastroesophageal reflux disease) K21.9 ; Pre-diabetes R73.09 ; Screening breast examination Z12.39 ; Stasis dermatitis of both legs I87.2 and Yeast dermatitis B37.2 [place] [address] [place] [id number] [address] [place] [address] Nov, Chronic pain G89.29 [place] [address] [place] [id number] [address] [place] [address] Nov, Cellulitis of left lower ext remity L03.116 [place] [address] [place] [id number] [address] [place] [address] Nov, Cellulitis of left lower ext remity L03.116 [place] [address] [address] [facility] [id number] [address] [place] [address] Oct, Yeast dermatitis B37.2 [place] [address] [place] [id number] [address] [place] [address] Oct, Chronic pain G89.29 [place] [address] [place] [id number] [address] [place] [address] Sep, Chronic pain G89.29 ; Essent ial hypertension I10 ; Depressive disorder, not elsewhere classified F32.9 and GERD (gastroesophageal reflux disease) K21.9 [facility] [address] [address] Aug, Chronic pain G89.29 [facility] [address] [address] Aug, Cough R05 ; Rash R21 and Vinay h and nonspecific skin eruption R21 [place] [address] [address] Jul, Chronic pain G89.29 [place] [address] [address] Jun, Chronic pain G89.29 ; Bronch itis J40 ; Essential hypertension I10 ; Depressive disorder, not elsewhere classified F32.9 ; GERD (gastroesophageal reflux disease) K21.9 and History of long-term use of multiple prescription drugs Z92.29 [place] [address] [address] Jun, Bronchitis J40 ; Chills R68. 83 and Sore throat J02.9 [place] [address] [address] May, [facility] [address] [address] Apr, [facility] [address] [address] Apr, Acute mucoid otitis media of both ears H65.113 [facility] [address] [address] Apr, Yeast dermatitis B37.2 and H ematuria R31.9 [facility] [address] [address] Mar, [place] [address] [address] Mar, [place] [address] [place] [id number] [address] [place] [address] Feb, Left anterior knee pain M25. [address] [address] Feb, Chronic pain G89.29 ; Essent ial hypertension I10 ; Depressive disorder, not elsewhere classified F32.9 ; GERD (gastroesophageal reflux disease) K21.9 and History of long-term use of multiple prescription drugs Z92.29 [place] [address] [address] Jan, [address] [address] Jan, Well woman exam Z01.419 ; BM I 45.0-49.9, adult Z68.42 ; Family history of diabetes mellitus Z83.3 and Chronic pain G89.[address] [address] December, Chronic pain G89.29 ; Essent ial hypertension I10 ; Depressive disorder, not elsewhere classified F32.9 ; GERD (gastroesophageal reflux disease) K21.9 ; 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 ; History of long-term use of multiple prescription drugs Z92.29 and Obesity E66.[address] [address] Oct, [address] [address] Oct, Well woman exam Z01.419 ; BM [...] smear Z12.4 and No natural teeth K00.0 [facility] [address] [facility] [id number] [address] [place] [address] Oct, [facility] [address] [place] [id number] [address] [place] [address] Sep, Chronic pain G89.29 ; Essent ial hypertension I10 ; GERD (gastroesophageal reflux disease) K21.9 ; 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 ; Skin infection L08.9 and History of long-term use of multiple prescription drugs Z92.29 [place] [address] [address] [facility] [id number] [address] [place] [address] Aug, [place] [address] [place] [id number] [place] [address] Jul, [place] [address] [place] [id number] [place] [address] Jul, [place] [address] [place] [id number] [address] [place] [address] Jul, Upper respiratory infection J06.9 [place] [address] [place] [id number] [address] [place] [address] Jul, Depressive disorder, not els ewhere classified F32.9 [place] [address] [place] [id number] [address] [place] [address] Jul, Chronic pain 338.29 [place] [address] [place] [id number] [address] [place] [address] Jul, Chronic pain G89.29 [place] [address] [place] [id number] [address] [place] [address] Jun, Poison josep L23.7 [place] [address] [place] [id number] [address] [place] [address] Jun, Allergic contact dermatitis due to plants, except food L23.7 [place] [address] [address] [facility] [id number] [address] [place] [address] Jun, Essential hypertension I10 ; Chronic pain G89.29 ; GERD (gastroesophageal reflux disease) K21.9 and Numbness and tingling in hands R20.2 [place] [address] [address] May, [place] [address] [address] Apr, [place] [address] [address] Mar, [place] [address] [address] Feb, Abdominal pain, left lateral 789.09 and Constipation 564.00 [place] [address] [address] Feb, Depressive disorder, not els ewhere classified 311 and No condition on Hanna II V71.[address] [address] Feb, Spider bite 989.5 and Depres homar [address] [address] Feb, [address] [address] Feb, Chronic pain 338.29 ; Arthro zonia 716.90 and GERD (gastroesophageal reflux disease) 530.81 [place] [address] [address] Jan, Insect bites 919.4 [place] [address] [address] Jan, [address] [address] December, Skin infection, bacterial 68 6.9 ; Conjunctivitis 372.30 and Insect bites 919.[address] [address] December, Chronic pain 338.29 ; Arthro zonia 716.90 ; Skin infection, bacterial 686.9 and Conjunctivitis 372.30 [facility] [address] [id number] [address] [place] [address] December, [facility] [address] [id number] [address] [place] [address] Nov, [facility] [address] [id number] [address] [place] [address] Nov, [facility] [address] [id number] [address] [place] [address] Oct, [facility] [address] [id number] [address] [place] [address] Oct, [facility] [address] [id number] [address] [place] [address] Sep, [facility] [address] [id number] [address] [place] [address] Sep, [facility] [address] [id number] [address] [place] [address] Aug, [facility] [address] [id number] [address] [place] [address] Aug, [facility] [address] [id number] [address] [place] [address] Aug, [facility] [address] [id number] [address] [place] [address] Aug, [facility] [address] [id number] [address] [place] [phone] Jul, [facility] [address] [id number] [address] [place] [address] Jul, [facility] [address] [id number] [address] [place] [address] Jul, [facility] [address] [id number] [address] [place] [address], [place] [address] 15 Jul, 2014 [facility] [address] [id number] [address] [place] [address], [place] [address] 15 Jul, 2014 [facility] [address] [id number] [address] [place] [address], [place] [address] 15 Jul, 2014 [facility] [address] [id number] [address] [place] [address], [place] [address] 15 Jul, 2014 [facility] [address] [id number] [address] [place] [address], [place] [address] 12 Jul, 2014 [facility] [address] [id number] [address] [place] [address], [place] [address] Jul, [facility] [address] [id number] [address] [place] [address], [place] [address] Jun, [facility] [address] [id number] [address] [place] [address], [place] [address] Jun, [facility] [address] [id number] [address] [place] [address], [place] [address] Jun, [facility] [address] [id number] [address] [place] [address], [place] [address] Jun, [facility] [address] [id number] [address] [place] [address], [place] [address] Jun, [facility] [address] [id number] [address] [place] [address], [place] [address] Jun, [facility] [address] [id number] [address] [place] [address], [place] [address] Jun, [facility] [address] [id number] [address] [place] [address], [place] [address] Jun, [facility] [address] [id number] [address] [place] [address], [place] [address] May, [facility] [address] [id number] [address] [place] [address], [place] [address] May, [facility] [address] [id number] [address] [place] [address], [place] [address] 16 May, 2014 [facility] [address] [id number] [address] [place] [address], [place] [address] May, [facility] [address] [id number] [address] [place] [address], [place] [address] May, [facility] [address] [id number] [address] [place] [address], [place] [address] Apr, [facility] [address] [id number] [address] [place] [address], [place] [address] Apr, [facility] [address] [id number] [address] [place] [address], [place] [address] Apr, [facility] [address] [id number] [address] [place] [address], [place] [address] Apr, [facility] [address] [id number] [address] [place] [address], [place] [address] Apr, [facility] [address] [id number] [address] [place] [address], [place] [address] Apr, [facility] [address] [id number] [address] [place] [address], [place] [address] Apr, [facility] [address] [id number] [address] [place] [address], [place] [address] Apr, [facility] [address] [id number] [address] [place] [address], [place] [address] Apr, [facility] [address] [id number] [address] [place] [address], [place] [address] Apr, [facility] [address] [id number] [address] [place] [address], [place] [address] Mar, [facility] [address] [id number] [address] [place] [address], [place] [address] Mar, [facility] [address] [id number] [address] [place] [address] Mar, [facility] [address] [id number] [address] [place] [address], [place] [address] Mar, [facility] [address] [id number] [address] [place] [address], [place] [address] Mar, [facility] [address] [id number] [address] [place] [address], [place] [address] Mar, [facility] [address] [id number] [address] [place] [address], [place] [address] Feb, [facility] [address] [id number] [address] [place] [address], [place] [address] Feb, [facility] [address] [id number] [address] [place] [address], [place] [address] Jan, [facility] [address] [id number] [address] [place] [address], [place] [address] Jan, [facility] [address] [id number] [address] [place] [address], [place] [address] Jan, [facility] [address] [id number] [address] [place] [address], [place] [address] Jan, [facility] [address] [id number] [address] [place] [address], [place] [address] December, [facility] [address] [id number] [address] [place] [address], [place] [address] December, [facility] [address] [id number] [address] [place] [address], [place] [address] December, [facility] [address] [id number] [address] [place] [address], [place] [address] December, [facility] [address] [id number] [address] [place] [address], [place] [address] December, [facility] [address] [id number] [address] [place] [address], [place] [address] December, [facility] [address] [id number] [facility] [place] [address] December, [facility] [address] [id number] [address] [place] [address], [place] [address] December, [facility] [address] [id number] [address] [place] [address], [place] [address] December, [facility] [address] [id number] [address] [place] [address], [place] [address] Nov, [facility] [address] [id number] [address] [place] [address], [place] [address] Nov, [facility] [address] [id number] [address] [place] [address], [place] [address] Nov, [facility] [address] [id number] [address] [place] [address], [place] [address] Nov, [facility] [address] [id number] [address] [place] [address], [place] [address] Nov, [facility] [address] [id number] [address] [place] [address], [place] [address] Nov, [facility] [address] [id number] [address] [place] [address], [place] [address] Nov, [facility] [address] [id number] [address] [place] [address], [place] [address] Nov, [facility] [address] [id number] [address] [place] [address], [place] [address] Nov, [facility] [address] [id number] [address] [place] [address], [place] [address] Nov, [facility] [address] [id number] [address] [place] [address], [place] [address] Oct, [facility] [address] [id number] [address] [place] [address], [place] [address] Oct, [facility] [address] [id number] [address] [place] [address], [place] [address] Sep, [facility] [address] [id number] [address] [place] [address], [place] [address] Sep, [facility] [address] [id number] [address] [place] [address], [place] [address] Aug, [facility] [address] [id number] [address] [place] [address], [place] [address] Aug, [facility] [address] [id number] [address] [place] [address], [place] [address] Aug, [facility] [address] [id number] [address] [place] [address], [place] [address] Aug, [facility] [address] [id number] [address] [place] [address], [place] [address] Jul, [facility] [address] [id number] [address] [place] [address], [place] [address] Jul, [facility] [address] [id number] [address] [place] [address], [place] [address] Jul, [facility] [address] [id number] [address] [place] [address], [place] [address] Jul, [facility] [address] [id number] [address] [place] [address], [place] [address] Jun, [facility] [address] [id number] [address] [place] [address], [place] [address] Jun, [facility] [address] [id number] [address] [place] [address], [place] [address] May, [facility] [address] [id number] [address] [place] [address], [place] [address] May, [facility] [address] [id number] [address] [place] [address], [place] [address] May, [facility] [address] [id number] [address] [place] [address], [place] [address] May, [facility] [address] [id number] [address] [place] [address], [place] [address] May, [facility] [address] [id number] [address] [place] [address], [place] [address] May, [facility] [address] [id number] [address] [place] [address], [place] [address] 30 Apr, 2013 [facility] [address] [id number] [address] [place] [address], [place] [address] Apr, [facility] [address] [id number] [address] [place] [address], [place] [address] Apr, [facility] [address] [id number] [address] [place] [address], [place] [address] Feb, [facility] [address] [id number] [address] [place] [address], [place] [address] Jan, [facility] [address] [id number] [address] [place] [address], [place] [address] Jan, [facility] [address] [id number] [address] [place] [address], [place] [address] 17 Jan, 2013 [facility] [address] [id number] [address] [place] [address], [place] [address] Jan, [facility] [address] [id number] [address] [place] [address], [place] [address] December, [facility] [address] [id number] [address] [place] [address], [place] [address] December, [facility] [address] [id number] [address] [place] [address], [place] [address] 24 Nov, 2012 [facility] [address] [id number] [address] [place] [address], [place] [address] Nov, [facility] [address] [id number] [address] [place] [address], [place] [address] Nov, [facility] [address] [id number] [address] [place] [address], [place] [address] Nov, [facility] [address] [id number] [address] [place] [address], [place] [address] 08 Nov, 2012 [facility] [address] [id number] [address] [place] [address], [place] [address] 08 Nov, 2012 [facility] [address] [id number] [address] [place] [address], [place] [address] 03 Nov, 2012 [facility] [address] [id number] [address] [place] [address], [place] [address] 27 Oct, 2012 [facility] [address] [id number] [address] [place] [address], [place] [address] 18 Oct, 2012 [facility] [address] [id number] [address] [place] [address], [place] [address] 14 Oct, 2012 [facility] [address] [id number] [address] [place] [address], [place] [address] 13 Oct, 2012 [facility] [address] [id number] [address] [place] [address], [place] [address] 12 Oct, 2012 [facility] [address] [id number] [address] [place] [address], [place] [address] Oct, [facility] [address] [id number] [address] [place] [address], [place] [address] 08 Oct, 2012 [facility] [address] [id number] [address] [place] [address], [place] [address] Sep, [facility] [address] [id number] [address] [place] [address], [place] [address] Sep, [facility] [address] [id number] [address] [place] [address], [place] [address] Aug, [facility] [address] [id number] [address] [place] [address], [place] [address] Aug, [facility] [address] [id number] [address] [place] [address], [place] [address] Jul, [facility] [address] [id number] [address] [place] [address] Jul, [facility] [address] [facility] [id number] [address] [place] [address] Jul, [facility] [address] [facility] [id number] [address] [place] [address] Jul, [facility] [address] [facility] [id number] [address] [place] [address] Jul, [facility] [address] [facility] [id number] [address] [place] [address] Jul, [facility] [address] [facility] [id number] [address] [place] [address] Jul, [facility] [address] [facility] [id number] [address] [place] [address] Jul, [facility] [address] [facility] [id number] [address] [place] [address] Jun, [facility] [address] [facility] [id number] [address] [place] [address] Jun, IMMUNIZATIONS No Known Immunizations SOCIAL HISTORY [...] -- total 11/2012 Hospitalization History ER- in [place] due to left knee 8
--- OUTSIDE RECORDS SUMMARY | 2020-02-11 03:09 | XMS REPORT ---
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 Name Role Phone KWESIKennedy DANG Unavailable PROBLEMS Type Condition ICD9-CM Code [id number] Code Onset Dates Condition S tatus SNOMED Code Problem Numbness and tingling in hands R20.2 Active 519366238 Problem History of abnormal cervical Pap smear Z87.898 Active 130164990 Problem Stasis dermatitis of both legs I87.2 Active 82951451 Problem Pre-diabetes R73.09 Active 7342911 02 Problem Morbid obesity due to excess calories E66.01 Active 193205597 Problem GERD (gastroesophageal reflux disease) K21.9 Active 374337044 Problem Mood disorder F39 Active 787824 05 Problem Chronic pain G89.29 Active 5268386 1 Problem BMI 45.0-49.9, adult Z68.42 Active 591847900 Problem Essential hypertension I10 Active 40047642 Problem Primary insomnia F51.01 Active 397 2004 Problem Chronic recurrent major depressive disorder F33.9 Active 3212579 ALLERGIES No Information ENCOUNTERS Encounter Location Date Diagnosis [place] [address] [facility] [id number] [address] [place] [phone] December, [place] [id number] [facility] [id number] [address] [place] [address] Nov, BMI 45.0-49.9, adult Z68.42 and Chronic pain G89.29 [facility] [address] [place] [id number] [address] [place] [address] Oct, BMI 45.0-49.9, adult Z68.42 and Chronic pain G89.29 [place] [address] [facility] [id number] [address] [place] [address] Sep, BMI 45.0-49.9, adult Z68.42 and Chronic pain G89.29 [place] [address] [facility] [id number] [address] [place] [address] 10 Sep, 2019 Essential hypertension I10 [place] [address] [facility] [id number] [address] [place] [address] 05 Sep, 2019 Tinea corporis B35.4 [place] [address] [facility] [id number] [address] [place] [address] 20 Aug, 2019 Acute non-recurrent maxillar y sinusitis J01.00 and Tinea corporis B35.4 [place] [address] [place] [id number] [address] [place] [address] 14 Aug, 2019 BMI 45.0-49.9, adult Z68.42 and Chronic pain G89.29 [place] [address] [place] [id number] [address] [place] [address] Jul, BMI 45.0-49.9, adult Z68.42 and Chronic pain G89.29 [place] [address] [place] [id number] [address] [place] [address] Jul, Pre-diabetes R73.09 [place] [address] [place] [id number] [address] [place] [phone] Jun, BMI 45.0-49.9, adult Z68.42 and Chronic pain G89.29 [place] [address] [place] [id number] [address] [place] [address] Jun, Acute non-recurrent maxillar y sinusitis J01.00 [place] [address] [facility] [id number] [address] [place] [address] May, Chronic pain G89.29 and BMI 45.0-49.9, adult Z68.42 [place] [address] [place] [id number] [address] [place] [address] Apr, Chronic pain G89.29 and BMI 45.0-49.9, adult Z68.42 [facility] [address] [facility] [id number] [address] [place] [address] Apr, Mood disorder F39 [facility] [address] [facility] [id number] [address] [place] [address] Mar, Chronic pain G89.29 and BMI 45.0-49.9, adult Z68.42 [facility] [address] [place] [id number] [address] [place] [address] Mar, Morbid obesity E66.01 ; 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 ; Morbid obesity due to excess calories E66.01 and High risk medication use Z79.899 [place] [address] [place] [id number] [address] [place] [address] Mar, Chronic pain G89.29 and BMI 45.0-49.9, adult Z68.42 [place] [id number] [place] [address] Feb, [facility] [address] [place] [id number] [address] [place] [address] Feb, Chronic pain G89.29 and BMI 45.0-49.9, adult Z68.42 [facility] [address] [place] [id number] [address] [place] [address] Jan, [place] [address] [place] [id number] [address] [place] [address] Jan, Chronic pain G89.29 and BMI 45.0-49.9, adult Z68.42 [facility] [address] [facility] [id number] [address] [place] [address] Jan, [facility] [address] [place] [id number] [address] [place] [address] December, Chronic pain G89.29 and BMI 45.0-49.9, adult Z68.42 [facility] [address] [place] [id number] [address] [place] [address] Nov, Morbid obesity E66.01 and Ce llulitis of leg, left L03.116 [place] [id number] [facility] [id number] [address] [place] [address] 15 Nov, 2018 Cellulitis of left lower ext remity L03.116 and Morbid obesity E66.01 [facility] [address] [facility] [id number] [address] [place] [address] Nov, [facility] [address] [place] [id number] [place] [address] Nov, Morbid obesity E66.01 and Ce llulitis of left lower extremity L03.116 [place] [address] [place] [id number] [place] [address] Nov, Chronic pain G89.29 and BMI 45.0-49.9, adult Z68.42 [place] [address] [address] Oct, BMI 45.0-49.9, adult Z68.42 and Chronic pain G89.29 [place] [address] [address] 14 Sep, 2018 BMI 45.0-49.9, adult Z68.42 and Chronic pain G89.29 [place] [address] [place] [id number] [address] [place] [address] 05 Sep, 2018 BMI 45.0-49.9, adult Z68.42 and Essential hypertension I10 [place] [address] [place] [id number] [address] [place] [address] Aug, BMI 45.0-49.9, adult Z68.42 ; Chronic pain G89.29 ; Essential hypertension I10 and Primary insomnia F51.01 [place] [address] [place] [id number] [address] [place] [address] Aug, Chronic pain G89.29 [place] [address] [address] Jul, Chronic pain G89.29 [facility] [address] [id number] [address] [place] [address] Jun, Chronic pain G89.29 [facility] [address] [facility] [id number] [address] [place] [address] May, Chronic pain G89.29 [facility] [address] [facility] [id number] [address] [place] [address] May, BMI 40.0-44.9, adult Z68.41 ; Other chronic pain G89.29 ; Pain in right hip M25.551 and Acute pain of left knee M25.562 [facility] [address] [id number] [address] [place] [address] May, Chronic pain G89.29 [facility] [address] [facility] [id number] [address] [place] [address] Apr, Chronic pain G89.29 [facility] [address] [id number] [address] [place] [address] Mar, Poison josep L23.7 [facility] [address] [facility] [id number] [address] [place] [address] Mar, Chronic pain G89.29 [facility] [address] [facility] [id number] [address] [place] [address] Feb, Chronic pain G89.29 [facility] [address] [facility] [id number] [address] [place] [address] Feb, Poison josep L23.7 [facility] [address] [facility] [id number] [address] [place] [address] Jan, Chronic pain G89.29 [facility] [address] [facility] [id number] [address] [place] [address] December, Chronic pain G89.29 [facility] [address] [facility] [id number] [address] [place] [address] Nov, Long-term use of high-risk m edication Z79.899 [facility] [address] [facility] [id number] [place] [address] Nov, Chronic pain G89.29 [facility] [address] [facility] [id number] [address] [place] [address] Oct, Chronic pain G89.29 ; Pre-di abetes R73.09 ; Long-term use of high- risk medication Z79.899 ; Allergic rhinitis, unspecified seasonality, unspecified trigger J30.9 ; BMI 45.0-49.9, adult Z68.42 and Essential hypertension I10 [place] [address] [address] Oct, Chronic pain G89.29 [place] [address] [place] [id number] [place] [address] Sep, Chronic pain G89.29 [place] [address] [address] Aug, Chronic pain G89.29 [place] [address] [address] Jul, [place] [address] [address] Jul, [place] [address] [address] Jun, Chronic pain G89.29 ; BMI 45 .0-49.9, adult Z68.42 ; Pre-diabetes R73.09 ; Essential hypertension I10 ; GERD (gastroesophageal reflux disease) K21.9 ; Yeast dermatitis B37.2 ; Dysuria R30.0 ; Acute non-recurrent maxillary sinusitis J01.00 and Acute cystitis with hematuria N30.01 [place] [address] [place] [id number] [address] [place] [address] 13 Jun, 2017 Chronic pain G89.29 [place] [address] [address] Jun, Acute non-recurrent maxillar y sinusitis J01.00 and BMI 45.0-49.9, adult Z68.42 [place] [address] [place] [id number] [address] [place] [address] May, [place] [address] [place] [id number] [address] [place] [address] May, Chronic pain G89.29 [place] [address] [place] [id number] [address] [place] [address] May, [place] [address] [place] [id number] [address] [place] [address] Apr, Chronic pain G89.29 [place] [address] [place] [id number] [address] [place] [address] Mar, [place] [address] [address] Mar, Essential hypertension I10 a nd Pre-diabetes R73.09 [place] [address] [place] [id number] [place] [address] Mar, Chronic pain G89.29 ; Essent ial hypertension I10 ; Depressive disorder, not elsewhere classified F32.9 ; GERD (gastroesophageal reflux disease) K21.9 ; Pre-diabetes R73.09 ; Stasis dermatitis of both legs I87.2 and Acute non-recurrent maxillary sinusitis J01.00 [place] [address] [place] [id number] [address] [place] [address] Mar, Chronic pain G89.29 [place] [address] [place] [id number] [address] [place] [address] Mar, Achilles tendinitis of right lower extremity M76.61 and Tinea corporis B35.4 [place] [address] [place] [id number] [address] [place] [address] Feb, Yeast dermatitis B37.2 [place] [address] [place] [id number] [address] [place] [address] 14 Feb, 2017 Candidal intertrigo B37.2 an d Acute right ankle pain M25.571 [place] [address] [place] [id number] [address] [place] [address] 12 Feb, 2017 Chronic pain G89.29 [place] [address] [place] [id number] [address] [place] [address] Jan, [place] [address] [place] [id number] [place] [address] Jan, Chronic pain G89.29 [place] [address] [place] [id number] [address] [place] [address] December, Chronic pain G89.29 ; Essent ial hypertension I10 ; Depressive disorder, not elsewhere classified F32.9 ; GERD (gastroesophageal reflux disease) K21.9 ; Pre-diabetes R73.09 ; Screening breast examination Z12.39 ; Stasis dermatitis of both legs I87.2 and Yeast dermatitis B37.2 [place] [address] [place] [id number] [address] [place] [address] Nov, Chronic pain G89.29 [place] [address] [place] [id number] [address] [place] [address] Nov, Cellulitis of left lower ext remity L03.116 [place] [address] [place] [id number] [address] [place] [address] Nov, Cellulitis of left lower ext remity L03.116 [place] [address] [facility] [id number] [address] [place] [address] Oct, Yeast dermatitis B37.2 [place] [address] [place] [id number] [address] [place] [address] Oct, Chronic pain G89.29 [place] [address] [place] [id number] [address] [place] [address] Sep, Chronic pain G89.29 ; Essent ial hypertension I10 ; Depressive disorder, not elsewhere classified F32.9 and GERD (gastroesophageal reflux disease) K21.9 [facility] [address] [address] Aug, Chronic pain G89.29 [facility] [address] [address] Aug, Cough R05 ; Rash R21 and Vinay h and nonspecific skin eruption R21 [place] [address] [address] Jul, Chronic pain G89.29 [place] [address] [address] Jun, Chronic pain G89.29 ; Bronch itis J40 ; Essential hypertension I10 ; Depressive disorder, not elsewhere classified F32.9 ; GERD (gastroesophageal reflux disease) K21.9 and History of long-term use of multiple prescription drugs Z92.29 [place] [address] [address] Jun, Bronchitis J40 ; Chills R68. 83 and Sore throat J02.9 [place] [address] [address] May, [facility] [address] [address] Apr, [facility] [address] [address] Apr, Acute mucoid otitis media of both ears H65.113 [facility] [address] [address] Apr, Yeast dermatitis B37.2 and H ematuria R31.9 [facility] [address] [address] Mar, [place] [address] [address] Mar, [place] [address] [place] [id number] [address] [place] [address] Feb, Left anterior knee pain M25. [address] [address] Feb, Chronic pain G89.29 ; Essent ial hypertension I10 ; Depressive disorder, not elsewhere classified F32.9 ; GERD (gastroesophageal reflux disease) K21.9 and History of long-term use of multiple prescription drugs Z92.29 [place] [address] [address] Jan, [address] [address] Jan, Well woman exam Z01.419 ; BM I 45.0-49.9, adult Z68.42 ; Family history of diabetes mellitus Z83.3 and Chronic pain G89.[address] [address] December, Chronic pain G89.29 ; Essent ial hypertension I10 ; Depressive disorder, not elsewhere classified F32.9 ; GERD (gastroesophageal reflux disease) K21.9 ; 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 ; History of long-term use of multiple prescription drugs Z92.29 and Obesity E66.[address] [address] Oct, [address] [address] Oct, Well woman exam Z01.419 ; BM [...] K00.0 [facility] [address] [facility] [id number] [address] [place] [address] Oct, [facility] [address] [place] [id number] [address] [place] [address] Sep, Chronic pain G89.29 ; Essent ial hypertension I10 ; GERD (gastroesophageal reflux disease) K21.9 ; 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 ; Skin infection L08.9 and History of long-term use of multiple prescription drugs Z92.29 [place] [address] [facility] [id number] [address] [place] [address] Aug, [place] [address] [place] [id number] [place] [address] Jul, [place] [address] [place] [id number] [place] [address] Jul, [place] [address] [place] [id number] [address] [place] [address] Jul, Upper respiratory infection J06.9 [place] [address] [place] [id number] [address] [place] [address] Jul, Depressive disorder, not els ewhere classified F32.9 [place] [address] [place] [id number] [address] [place] [address] Jul, Chronic pain 338.29 [place] [address] [place] [id number] [address] [place] [address] Jul, Chronic pain G89.29 [place] [address] [place] [id number] [address] [place] [address] Jun, Poison josep L23.7 [place] [address] [place] [id number] [address] [place] [address] Jun, Allergic contact dermatitis due to plants, except food L23.7 [place] [address] [facility] [id number] [address] [place] [address] Jun, Essential hypertension I10 ; Chronic pain G89.29 ; GERD (gastroesophageal reflux disease) K21.9 and Numbness and tingling in hands R20.2 [place] [address] [address] May, [place] [address] [address] Apr, [place] [address] [address] Mar, [place] [address] [address] Feb, Abdominal pain, left lateral 789.09 and Constipation 564.00 [place] [address] [address] Feb, Depressive disorder, not els ewhere classified 311 and No condition on [place] II V71.[address] [address] Feb, Spider bite 989.5 and Depres homar [address] [address] Feb, [address] [address] Feb, Chronic pain 338.29 ; Arthro zonia 716.90 and GERD (gastroesophageal reflux disease) 530.81 [place] [address] [address] Jan, Insect bites 919.4 [place] [address] [address] Jan, [address] [address] December, Skin infection, bacterial 68 6.9 ; Conjunctivitis 372.30 and Insect bites 919.[address] [address] December, Chronic pain 338.29 ; Arthro zonia 716.90 ; Skin infection, bacterial 686.9 and Conjunctivitis 372.30 [facility] [address] [id number] [address] [place] [address] December, [facility] [address] [id number] [address] [place] [address] Nov, [facility] [address] [id number] [address] [place] [address] Nov, [facility] [address] [id number] [address] [place] [address] Oct, [facility] [address] [id number] [address] [place] [address] Oct, [facility] [address] [id number] [address] [place] [address] Sep, [facility] [address] [id number] [address] [place] [address] Sep, [facility] [address] [id number] [address] [place] [address] Aug, [facility] [address] [id number] [address] [place] [address] Aug, [facility] [address] [id number] [address] [place] [address] Aug, [facility] [address] [id number] [address] [place] [address] Aug, [facility] [address] [id number] [address] [place] [address] Jul, [facility] [address] [id number] [address] [place] [address] Jul, [facility] [address] [id number] [address] [place] [address] Jul, [facility] [address] [id number] [address] [place] [address], [place] [address] 15 Jul, 2014 [facility] [address] [id number] [address] [place] [address], [place] [phone] 15 Jul, 2014 [facility] [address] [id number] [address] [place] [address], [place] [id number] 15 Jul, 2014 [facility] [address] [id number] [address] [place] [address], [place] [id number] 15 Jul, 2014 [facility] [address] [id number] [address] [place] [address], [place] [id number] 12 Jul, 2014 [facility] [address] [id number] [address] [place] [address], [place] [phone] Jul, [facility] [address] [id number] [address] [place] [address], [place] [phone] Jun, [facility] [address] [id number] [address] [place] [address], [place] [id number] Jun, [facility] [address] [id number] [address] [place] [address], [place] [phone] Jun, [facility] [address] [id number] [address] [place] [address], [place] [phone] Jun, [facility] [address] [id number] [address] [place] [address], [place] [address] Jun, [facility] [address] [id number] [address] [place] [address], [place] [address] Jun, [facility] [address] [id number] [address] [place] [address], [place] [phone] Jun, [facility] [address] [id number] [address] [place] [address], [place] [id number] Jun, [facility] [address] [id number] [address] [place] [address], [place] [id number] May, [facility] [address] [id number] [address] [place] [address], [place] [address] May, [facility] [address] [id number] [address] [place] [address], [place] [id number] 16 May, 2014 [facility] [address] [id number] [address] [place] [address], [place] [id number] May, [facility] [address] [id number] [address] [place] [address], [place] [id number] May, [facility] [address] [id number] [address] [place] [address], [place] [id number] Apr, [facility] [address] [id number] [address] [place] [address], [place] [id number] Apr, [facility] [address] [id number] [address] [place] [address], [place] [id number] Apr, [facility] [address] [id number] [address] [place] [address], [place] [id number] Apr, [facility] [address] [id number] [address] [place] [address], [place] [address] Apr, [facility] [address] [id number] [address] [place] [address], [place] [id number] Apr, [facility] [address] [id number] [address] [place] [address], [place] [id number] Apr, [facility] [address] [id number] [address] [place] [address], [place] [id number] Apr, [facility] [address] [id number] [address] [place] [address], [place] [id number] Apr, [facility] [address] [id number] [address] [place] [address], [place] [id number] Apr, [facility] [address] [id number] [address] [place] [address], [place] [id number] Mar, [facility] [address] [id number] [address] [place] [address], [place] [id number] Mar, [facility] [address] [id number] [address] [place] [id number] Mar, [facility] [address] [id number] [address] [place] [address], [place] [id number] Mar, [facility] [address] [id number] [address] [place] [address], [place] [id number] Mar, [facility] [address] [id number] [address] [place] [address], [place] [id number] Mar, [facility] [address] [id number] [address] [place] [address], [place] [id number] Feb, [facility] [address] [id number] [address] [place] [address], [place] [address] Feb, [facility] [address] [id number] [address] [place] [address], [place] [id number] Jan, [facility] [address] [id number] [address] [place] [address], [place] [address] Jan, [facility] [address] [id number] [address] [place] [address], [place] [address] Jan, [facility] [address] [id number] [address] [place] [address], [place] [address] Jan, [facility] [address] [id number] [address] [place] [address], [place] [id number] December, [facility] [address] [id number] [address] [place] [address], [place] [address] December, [facility] [address] [id number] [address] [place] [address], [place] [id number] December, [facility] [address] [id number] [address] [place] [address], [place] [address] December, [facility] [address] [id number] [address] [place] [address], [place] [address] December, [facility] [address] [id number] [address] [place] [address], [place] [address] December, [facility] [address] [id number] [facility] [place] [address] December, [facility] [address] [id number] [address] [place] [address], [place] [address] December, [facility] [address] [id number] [address] [place] [address], [place] [address] December, [facility] [address] [id number] [address] [place] [address], [place] [address] Nov, [facility] [address] [id number] [address] [place] [address], [place] [address] Nov, [facility] [address] [id number] [address] [place] [address], [place] [address] Nov, [facility] [address] [id number] [address] [place] [address], [place] [address] Nov, [facility] [address] [id number] [address] [place] [address], [place] [address] Nov, [facility] [address] [id number] [address] [place] [address], [place] [address] Nov, [facility] [address] [id number] [address] [place] [address], [place] [address] Nov, [facility] [address] [id number] [address] [place] [address], [place] [address] Nov, [facility] [address] [id number] [address] [place] [address], [place] [address] Nov, [facility] [address] [id number] [address] [place] [address], [place] [address] Nov, [facility] [address] [id number] [address] [place] [address], [place] [address] Oct, [facility] [address] [id number] [address] [place] [address], [place] [address] Oct, [facility] [address] [id number] [address] [place] [address], [place] [address] Sep, [facility] [address] [id number] [address] [place] [address], [place] [address] Sep, [facility] [address] [id number] [address] [place] [address], [place] [address] Aug, [facility] [address] [id number] [address] [place] [address], [place] [address] Aug, [facility] [address] [id number] [address] [place] [address], [place] [address] Aug, [facility] [address] [id number] [address] [place] [address], [place] [address] Aug, [facility] [address] [id number] [address] [place] [address], [place] [address] Jul, [facility] [address] [id number] [address] [place] [address], [place] [address] Jul, [facility] [address] [id number] [address] [place] [address], [place] [address] Jul, [facility] [address] [id number] [address] [place] [address], [place] [address] Jul, [facility] [address] [id number] [address] [place] [address], [place] [address] Jun, [facility] [address] [id number] [address] [place] [address], [place] [address] Jun, [facility] [address] [id number] [address] [place] [address], [place] [address] May, [facility] [address] [id number] [address] [place] [address], [place] [address] May, [facility] [address] [id number] [address] [place] [address], [place] [address] May, [facility] [address] [id number] [address] [place] [address], [place] [address] May, [facility] [address] [id number] [address] [place] [address], [place] [address] May, [facility] [address] [id number] [address] [place] [address], [place] [address] May, [facility] [address] [id number] [address] [place] [address], [place] [address] 30 Apr, 2013 [facility] [address] [id number] [address] [place] [address], [place] [address] Apr, [facility] [address] [id number] [address] [place] [address], [place] [address] Apr, [facility] [address] [id number] [address] [place] [address], [place] [address] Feb, [facility] [address] [id number] [address] [place] [address], [place] [address] Jan, [facility] [address] [id number] [address] [place] [address], [place] [address] Jan, [facility] [address] [id number] [address] [place] [address], [place] [id number] 17 Jan, 2013 [facility] [address] [id number] [address] [place] [address], [place] [address] Jan, [facility] [address] [id number] [address] [place] [address], [place] [address] December, [facility] [address] [id number] [address] [place] [address], [place] [address] December, [facility] [address] [id number] [address] [place] [address], [place] [address] 24 Nov, 2012 [facility] [address] [id number] [address] [place] [address], [place] [id number] Nov, [facility] [address] [id number] [address] [place] [address], [place] [address] Nov, [facility] [address] [id number] [address] [place] [address], [place] [id number] Nov, [facility] [address] [id number] [address] [place] [address], [place] [address] 08 Nov, 2012 [facility] [address] [id number] [address] [place] [address], [place] [id number] 08 Nov, 2012 [facility] [address] [id number] [address] [place] [address], [place] [address] 03 Nov, 2012 [facility] [address] [id number] [address] [place] [address], [place] [id number] 27 Oct, 2012 [facility] [address] [id number] [address] [place] [address], [place] [id number] 18 Oct, 2012 [facility] [address] [id number] [address] [place] [address], [place] [address] 14 Oct, 2012 [facility] [address] [id number] [address] [place] [address], [place] [address] 13 Oct, 2012 [facility] [address] [id number] [address] [place] [address], [place] [address] 12 Oct, 2012 [facility] [address] [id number] [address] [place] [address], [place] [address] Oct, [facility] [address] [id number] [address] [place] [address], [place] [id number] 08 Oct, 2012 [facility] [address] [id number] [address] [place] [address], [place] [address] Sep, [facility] [address] [id number] [address] [place] [address], [place] [id number] Sep, [facility] [address] [id number] [address] [place] [address], [place] [address] Aug, [facility] [address] [id number] [address] [place] [address], [place] [address] Aug, [facility] [address] [id number] [address] [place] [address], [place] [id number] Jul, [facility] [address] [id number] [address] [place] [id number] Jul, [facility] [address] [id number] [address] [place] [id number] Jul, [facility] [address] [id number] [address] [place] [id number] Jul, [facility] [address] [facility] [id number] [address] [place] [id number] Jul, [facility] [address] [facility] [id number] [address] [place] [id number] Jul, [facility] [address] [facility] [id number] [address] [place] [id number] Jul, [facility] [address] [facility] [id number] [address] [place] [phone] Jul, [facility] [address] [facility] [id number] [address] [place] [id number] Jun, [facility] [address] [facility] [id number] [address] [place] [id number] Jun, IMMUNIZATIONS No Known Immunizations SOCIAL HISTORY Never Assessed REASON FOR VISIT PLAN OF CARE VITAL SIGNS Height 62 in 2014-06-19 Weight 244.51 lbs 2014-06-19 Temperature 97.9 degrees Fahrenheit 2014-06-19 Heart Rate 80 bpm 2014-06-19 Respiratory Rate 20 2014-06-19 Blood pressure systolic 130 mmHg 2014-06-19 Blood pressure diastolic 80 mmHg 2014-06-19 MEDICATIONS Unknown Medications RESULTS No Results PROCEDURES [...]
--- OUTSIDE RECORDS SUMMARY | 2020-02-11 03:09 | XMS REPORT ---
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 Name Role Phone KWESIKennedy DANG Unavailable PROBLEMS Type Condition ICD9-CM Code [id number] Code Onset Dates Condition S tatus SNOMED Code Problem Numbness and tingling in hands R20.2 Active 024309879 Problem History of abnormal cervical Pap smear Z87.898 Active 621363726 Problem Stasis dermatitis of both legs I87.2 Active 87861886 Problem Pre-diabetes R73.09 Active 2171176 02 Problem Morbid obesity due to excess calories E66.01 Active 665601545 Problem GERD (gastroesophageal reflux disease) K21.9 Active 690559868 Problem Mood disorder F39 Active 367598 05 Problem Chronic pain G89.29 Active 1960883 1 Problem BMI 45.0-49.9, adult Z68.42 Active 770921375 Problem Essential hypertension I10 Active 43246844 Problem Primary insomnia F51.01 Active 397 2004 Problem Chronic recurrent major depressive disorder F33.9 Active 3797750 ALLERGIES No Information ENCOUNTERS Encounter Location Date Diagnosis [place] [address] [facility] [id number] [address] [place] [phone] December, [place] [address] [facility] [id number] [address] [place] [address] Nov, BMI 45.0-49.9, adult Z68.42 and Chronic pain G89.29 [facility] [address] [place] [id number] [address] [place] [address] Oct, BMI 45.0-49.9, adult Z68.42 and Chronic pain G89.29 [place] [address] [facility] [id number] [address] [place] [address] Sep, BMI 45.0-49.9, adult Z68.42 and Chronic pain G89.29 [place] [address] [facility] [id number] [address] [place] [address] 10 Sep, 2019 Essential hypertension I10 [place] [address] [facility] [id number] [address] [place] [address] 05 Sep, 2019 Tinea corporis B35.4 [place] [address] [facility] [id number] [address] [place] [address] 20 Aug, 2019 Acute non-recurrent maxillar y sinusitis J01.00 and Tinea corporis B35.4 [place] [address] [place] [id number] [address] [place] [address] 14 Aug, 2019 BMI 45.0-49.9, adult Z68.42 and Chronic pain G89.29 [place] [address] [place] [id number] [address] [place] [address] Jul, BMI 45.0-49.9, adult Z68.42 and Chronic pain G89.29 [place] [address] [place] [id number] [address] [place] [address] Jul, Pre-diabetes R73.09 [place] [address] [place] [id number] [address] [place] [phone] Jun, BMI 45.0-49.9, adult Z68.42 and Chronic pain G89.29 [place] [address] [place] [id number] [address] [place] [address] Jun, Acute non-recurrent maxillar y sinusitis J01.00 [place] [address] [facility] [id number] [address] [place] [address] May, Chronic pain G89.29 and BMI 45.0-49.9, adult Z68.42 [place] [address] [place] [id number] [address] [place] [address] Apr, Chronic pain G89.29 and BMI 45.0-49.9, adult Z68.42 [facility] [address] [facility] [id number] [address] [place] [address] Apr, Mood disorder F39 [facility] [address] [facility] [id number] [address] [place] [address] Mar, Chronic pain G89.29 and BMI 45.0-49.9, adult Z68.42 [facility] [address] [place] [id number] [address] [place] [address] Mar, Morbid obesity E66.01 ; 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 ; Morbid obesity due to excess calories E66.01 and High risk medication use Z79.899 [place] [address] [place] [id number] [address] [place] [address] Mar, Chronic pain G89.29 and BMI 45.0-49.9, adult Z68.42 [place] [id number] [place] [address] Feb, [facility] [address] [place] [id number] [address] [place] [address] Feb, Chronic pain G89.29 and BMI 45.0-49.9, adult Z68.42 [facility] [address] [place] [id number] [address] [place] [address] Jan, [place] [address] [place] [id number] [address] [place] [address] Jan, Chronic pain G89.29 and BMI 45.0-49.9, adult Z68.42 [facility] [address] [facility] [id number] [address] [place] [address] Jan, [facility] [address] [place] [id number] [address] [place] [address] December, Chronic pain G89.29 and BMI 45.0-49.9, adult Z68.42 [facility] [address] [place] [id number] [address] [place] [address] Nov, Morbid obesity E66.01 and Ce llulitis of leg, left L03.116 [place] [address] [facility] [id number] [address] [place] [address] 15 Nov, 2018 Cellulitis of left lower ext remity L03.116 and Morbid obesity E66.01 [facility] [address] [facility] [id number] [address] [place] [address] Nov, [facility] [address] [place] [id number] [place] [address] Nov, Morbid obesity E66.01 and Ce llulitis of left lower extremity L03.116 [place] [address] [place] [id number] [place] [address] Nov, Chronic pain G89.29 and BMI 45.0-49.9, adult Z68.42 [place] [address] [address] Oct, BMI 45.0-49.9, adult Z68.42 and Chronic pain G89.29 [place] [address] [address] 14 Sep, 2018 BMI 45.0-49.9, adult Z68.42 and Chronic pain G89.29 [place] [address] [place] [id number] [address] [place] [address] 05 Sep, 2018 BMI 45.0-49.9, adult Z68.42 and Essential hypertension I10 [place] [address] [place] [id number] [address] [place] [address] Aug, BMI 45.0-49.9, adult Z68.42 ; Chronic pain G89.29 ; Essential hypertension I10 and Primary insomnia F51.01 [place] [address] [place] [id number] [address] [place] [address] Aug, Chronic pain G89.29 [place] [address] [address] Jul, Chronic pain G89.29 [facility] [address] [id number] [address] [place] [address] Jun, Chronic pain G89.29 [facility] [address] [facility] [id number] [address] [place] [address] May, Chronic pain G89.29 [facility] [address] [facility] [id number] [address] [place] [address] May, BMI 40.0-44.9, adult Z68.41 ; Other chronic pain G89.29 ; Pain in right hip M25.551 and Acute pain of left knee M25.562 [facility] [address] [id number] [address] [place] [address] May, Chronic pain G89.29 [facility] [address] [facility] [id number] [address] [place] [address] Apr, Chronic pain G89.29 [facility] [address] [id number] [address] [place] [address] Mar, Poison josep L23.7 [facility] [address] [facility] [id number] [address] [place] [address] Mar, Chronic pain G89.29 [facility] [address] [facility] [id number] [address] [place] [address] Feb, Chronic pain G89.29 [facility] [address] [facility] [id number] [address] [place] [phone] Feb, Poison josep L23.7 [facility] [address] [facility] [id number] [address] [place] [address] Jan, Chronic pain G89.29 [facility] [address] [facility] [id number] [address] [place] [address] December, Chronic pain G89.29 [facility] [address] [facility] [id number] [address] [place] [address] Nov, Long-term use of high-risk m edication Z79.899 [facility] [address] [facility] [id number] [place] [address] Nov, Chronic pain G89.29 [facility] [address] [facility] [id number] [address] [place] [address] Oct, Chronic pain G89.29 ; Pre-di abetes R73.09 ; Long-term use of high- risk medication Z79.899 ; Allergic rhinitis, unspecified seasonality, unspecified trigger J30.9 ; BMI 45.0-49.9, adult Z68.42 and Essential hypertension I10 [place] [address] [address] Oct, Chronic pain G89.29 [place] [address] [place] [id number] [place] [address] Sep, Chronic pain G89.29 [place] [address] [address] Aug, Chronic pain G89.29 [place] [address] [address] Jul, [place] [address] [address] Jul, [place] [address] [address] Jun, Chronic pain G89.29 ; BMI 45 .0-49.9, adult Z68.42 ; Pre-diabetes R73.09 ; Essential hypertension I10 ; GERD (gastroesophageal reflux disease) K21.9 ; Yeast dermatitis B37.2 ; Dysuria R30.0 ; Acute non-recurrent maxillary sinusitis J01.00 and Acute cystitis with hematuria N30.01 [place] [address] [place] [id number] [address] [place] [address] 13 Jun, 2017 Chronic pain G89.29 [place] [address] [address] Jun, Acute non-recurrent maxillar y sinusitis J01.00 and BMI 45.0-49.9, adult Z68.42 [place] [address] [place] [id number] [address] [place] [address] May, [place] [address] [place] [id number] [address] [place] [address] May, Chronic pain G89.29 [place] [address] [place] [id number] [address] [place] [address] May, [place] [address] [place] [id number] [address] [place] [address] Apr, Chronic pain G89.29 [place] [address] [place] [id number] [address] [place] [address] Mar, [place] [address] [address] Mar, Essential hypertension I10 a nd Pre-diabetes R73.09 [place] [address] [place] [id number] [place] [address] Mar, Chronic pain G89.29 ; Essent ial hypertension I10 ; Depressive disorder, not elsewhere classified F32.9 ; GERD (gastroesophageal reflux disease) K21.9 ; Pre-diabetes R73.09 ; Stasis dermatitis of both legs I87.2 and Acute non-recurrent maxillary sinusitis J01.00 [place] [address] [place] [id number] [address] [place] [address] Mar, Chronic pain G89.29 [place] [address] [place] [id number] [address] [place] [address] Mar, Achilles tendinitis of right lower extremity M76.61 and Tinea corporis B35.4 [place] [address] [place] [id number] [place] [address] Feb, Yeast dermatitis B37.2 [place] [address] [place] [id number] [place] [address] 14 Feb, 2017 Candidal intertrigo B37.2 an d Acute right ankle pain M25.571 [place] [address] [place] [id number] [place] [address] 12 Feb, 2017 Chronic pain G89.29 [place] [address] [place] [id number] [address] [place] [address] Jan, [place] [address] [place] [id number] [place] [address] Jan, Chronic pain G89.29 [place] [address] [place] [id number] [place] [address] December, Chronic pain G89.29 ; Essent ial hypertension I10 ; Depressive disorder, not elsewhere classified F32.9 ; GERD (gastroesophageal reflux disease) K21.9 ; Pre-diabetes R73.09 ; Screening breast examination Z12.39 ; Stasis dermatitis of both legs I87.2 and Yeast dermatitis B37.2 [place] [address] [place] [id number] [address] [place] [address] Nov, Chronic pain G89.29 [place] [address] [place] [id number] [address] [place] [address] Nov, Cellulitis of left lower ext remity L03.116 [place] [address] [place] [id number] [address] [place] [address] Nov, Cellulitis of left lower ext remity L03.116 [place] [address] [facility] [id number] [address] [place] [address] Oct, Yeast dermatitis B37.2 [place] [address] [place] [id number] [address] [place] [address] Oct, Chronic pain G89.29 [place] [address] [place] [id number] [address] [place] [address] Sep, Chronic pain G89.29 ; Essent ial hypertension I10 ; Depressive disorder, not elsewhere classified F32.9 and GERD (gastroesophageal reflux disease) K21.9 [facility] [address] [address] Aug, Chronic pain G89.29 [facility] [address] [address] Aug, Cough R05 ; Rash R21 and Vinay h and nonspecific skin eruption R21 [place] [address] [address] Jul, Chronic pain G89.29 [place] [address] [address] Jun, Chronic pain G89.29 ; Bronch itis J40 ; Essential hypertension I10 ; Depressive disorder, not elsewhere classified F32.9 ; GERD (gastroesophageal reflux disease) K21.9 and History of long-term use of multiple prescription drugs Z92.29 [place] [address] [address] Jun, Bronchitis J40 ; Chills R68. 83 and Sore throat J02.9 [place] [address] [address] May, [facility] [address] [address] Apr, [facility] [address] [address] Apr, Acute mucoid otitis media of both ears H65.113 [facility] [address] [address] Apr, Yeast dermatitis B37.2 and H ematuria R31.9 [facility] [address] [address] Mar, [place] [address] [address] Mar, [place] [address] [place] [id number] [address] [place] [address] Feb, Left anterior knee pain M25. [address] [address] Feb, Chronic pain G89.29 ; Essent ial hypertension I10 ; Depressive disorder, not elsewhere classified F32.9 ; GERD (gastroesophageal reflux disease) K21.9 and History of long-term use of multiple prescription drugs Z92.29 [place] [address] [address] Jan, [address] [address] Jan, Well woman exam Z01.419 ; BM I 45.0-49.9, adult Z68.42 ; Family history of diabetes mellitus Z83.3 and Chronic pain G89.[address] [address] December, Chronic pain G89.29 ; Essent ial hypertension I10 ; Depressive disorder, not elsewhere classified F32.9 ; GERD (gastroesophageal reflux disease) K21.9 ; 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 ; History of long-term use of multiple prescription drugs Z92.29 and Obesity E66.[address] [address] Oct, [address] [address] Oct, Well woman exam Z01.419 ; BM [...] K00.0 [facility] [address] [facility] [id number] [address] [place] [address] Oct, [facility] [address] [place] [id number] [address] [place] [address] Sep, Chronic pain G89.29 ; Essent ial hypertension I10 ; GERD (gastroesophageal reflux disease) K21.9 ; 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 ; Skin infection L08.9 and History of long-term use of multiple prescription drugs Z92.29 [place] [address] [facility] [id number] [address] [place] [address] Aug, [place] [address] [place] [id number] [place] [address] Jul, [place] [address] [place] [id number] [place] [address] Jul, [place] [address] [place] [id number] [address] [place] [address] Jul, Upper respiratory infection J06.9 [place] [address] [place] [id number] [address] [place] [address] Jul, Depressive disorder, not els ewhere classified F32.9 [place] [address] [place] [id number] [address] [place] [address] Jul, Chronic pain 338.29 [place] [address] [place] [id number] [address] [place] [address] Jul, Chronic pain G89.29 [place] [address] [place] [id number] [address] [place] [address] Jun, Poison josep L23.7 [place] [address] [place] [id number] [address] [place] [address] Jun, Allergic contact dermatitis due to plants, except food L23.7 [place] [address] [facility] [id number] [address] [place] [address] Jun, Essential hypertension I10 ; Chronic pain G89.29 ; GERD (gastroesophageal reflux disease) K21.9 and Numbness and tingling in hands R20.2 [place] [address] [address] May, [place] [address] [address] Apr, [place] [address] [address] Mar, [place] [address] [address] Feb, Abdominal pain, left lateral 789.09 and Constipation 564.00 [place] [address] [address] Feb, Depressive disorder, not els ewhere classified 311 and No condition on [place] II V71.[address] [address] Feb, Spider bite 989.5 and Depres homar [address] [address] Feb, [address] [address] Feb, Chronic pain 338.29 ; Arthro zonia 716.90 and GERD (gastroesophageal reflux disease) 530.81 [place] [address] [address] Jan, Insect bites 919.4 [place] [address] [address] Jan, [address] [address] December, Skin infection, bacterial 68 6.9 ; Conjunctivitis 372.30 and Insect bites 919.[address] [address] December, Chronic pain 338.29 ; Arthro zonia 716.90 ; Skin infection, bacterial 686.9 and Conjunctivitis 372.30 [facility] [address] [id number] [address] [place] [address] December, [facility] [address] [id number] [address] [place] [address] Nov, [facility] [address] [id number] [address] [place] [address] Nov, [facility] [address] [id number] [address] [place] [address] Oct, [facility] [address] [id number] [address] [place] [phone] Oct, [facility] [address] [id number] [address] [place] [phone] Sep, [facility] [address] [id number] [address] [place] [phone] Sep, [facility] [address] [id number] [address] [place] [phone] Aug, [facility] [address] [id number] [address] [place] [phone] Aug, [facility] [address] [id number] [address] [place] [address] Aug, [facility] [address] [id number] [address] [place] [address] Aug, [facility] [address] [id number] [address] [place] [phone] Jul, [facility] [address] [id number] [address] [place] [address] Jul, [facility] [address] [id number] [address] [place] [address] Jul, [facility] [address] [id number] [address] [place] [address], [place] [address] 15 Jul, 2014 [facility] [address] [id number] [address] [place] [address], [place] [address] 15 Jul, 2014 [facility] [address] [id number] [address] [place] [address], [place] [address] 15 Jul, 2014 [facility] [address] [id number] [address] [place] [address], [place] [address] 15 Jul, 2014 [facility] [address] [id number] [address] [place] [address], [place] [address] 12 Jul, 2014 [facility] [address] [id number] [address] [place] [address], [place] [address] Jul, [facility] [address] [id number] [address] [place] [address], [place] [address] Jun, [facility] [address] [id number] [address] [place] [address], [place] [address] Jun, [facility] [address] [id number] [address] [place] [address], [place] [address] Jun, [facility] [address] [id number] [address] [place] [address], [place] [address] Jun, [facility] [address] [id number] [address] [place] [address], [place] [address] Jun, [facility] [address] [id number] [address] [place] [address], [place] [address] Jun, [facility] [address] [id number] [address] [place] [address], [place] [address] Jun, [facility] [address] [id number] [address] [place] [address], [place] [address] Jun, [facility] [address] [id number] [address] [place] [address], [place] [address] May, [facility] [address] [id number] [address] [place] [address], [place] [address] May, [facility] [address] [id number] [address] [place] [address], [place] [address] 16 May, 2014 [facility] [address] [id number] [address] [place] [address], [place] [address] May, [facility] [address] [id number] [address] [place] [address], [place] [address] May, [facility] [address] [id number] [address] [place] [address], [place] [address] Apr, [facility] [address] [id number] [address] [place] [address], [place] [address] Apr, [facility] [address] [id number] [address] [place] [address], [place] [address] Apr, [facility] [address] [id number] [address] [place] [address], [place] [address] Apr, [facility] [address] [id number] [address] [place] [address], [place] [address] Apr, [facility] [address] [id number] [address] [place] [address], [place] [address] Apr, [facility] [address] [id number] [address] [place] [address], [place] [address] Apr, [facility] [address] [id number] [address] [place] [address], [place] [address] Apr, [facility] [address] [id number] [address] [place] [address], [place] [address] Apr, [facility] [address] [id number] [address] [place] [address], [place] [address] Apr, [facility] [address] [id number] [address] [place] [address], [place] [address] Mar, [facility] [address] [id number] [address] [place] [address], [place] [address] Mar, [facility] [address] [id number] [address] [place] [address] Mar, [facility] [address] [id number] [address] [place] [address], [place] [address] Mar, [facility] [address] [id number] [address] [place] [address], [place] [address] Mar, [facility] [address] [id number] [address] [place] [address], [place] [address] Mar, [facility] [address] [id number] [address] [place] [address], [place] [address] Feb, [facility] [address] [id number] [address] [place] [address], [place] [address] Feb, [facility] [address] [id number] [address] [place] [address], [place] [address] Jan, [facility] [address] [id number] [address] [place] [address], [place] [address] Jan, [facility] [address] [id number] [address] [place] [address], [place] [address] Jan, [facility] [address] [id number] [address] [place] [address], [place] [address] Jan, [facility] [address] [id number] [address] [place] [address], [place] [address] December, [facility] [address] [id number] [address] [place] [address], [place] [address] December, [facility] [address] [id number] [address] [place] [address], [place] [address] December, [facility] [address] [id number] [address] [place] [address], [place] [address] December, [facility] [address] [id number] [address] [place] [address], [place] [address] December, [facility] [address] [id number] [address] [place] [address], [place] [address] December, [facility] [facility] [address] [id number] [facility] [place] [address] December, [facility] [address] [id number] [address] [place] [address], [place] [address] December, [facility] [address] [id number] [address] [place] [address], [place] [address] December, [facility] [address] [id number] [address] [place] [address], [place] [address] Nov, [facility] [address] [id number] [address] [place] [address], [place] [address] Nov, [facility] [address] [id number] [address] [place] [address], [place] [address] Nov, [facility] [address] [id number] [address] [place] [address], [place] [address] Nov, [facility] [address] [id number] [address] [place] [address], [place] [address] Nov, [facility] [address] [id number] [address] [place] [address], [place] [address] Nov, [facility] [address] [id number] [address] [place] [address], [place] [address] Nov, [facility] [address] [id number] [address] [place] [address], [place] [address] Nov, [facility] [address] [id number] [address] [place] [address], [place] [address] Nov, [facility] [address] [id number] [address] [place] [address], [place] [address] Nov, [facility] [address] [id number] [address] [place] [address], [place] [address] Oct, [facility] [address] [id number] [address] [place] [address], [place] [address] Oct, [facility] [address] [id number] [address] [place] [address], [place] [address] Sep, [facility] [address] [id number] [address] [place] [address], [place] [address] Sep, [facility] [address] [id number] [address] [place] [address], [place] [address] Aug, [facility] [address] [id number] [address] [place] [address], [place] [address] Aug, [facility] [address] [id number] [address] [place] [address], [place] [address] Aug, [facility] [address] [id number] [address] [place] [address], [place] [address] Aug, [facility] [address] [id number] [address] [place] [address], [place] [address] Jul, [facility] [address] [id number] [address] [place] [address], [place] [address] Jul, [facility] [address] [id number] [address] [place] [address], [place] [address] Jul, [facility] [address] [id number] [address] [place] [address], [place] [address] Jul, [facility] [address] [id number] [address] [place] [address], [place] [address] Jun, [facility] [address] [id number] [address] [place] [address], [place] [address] Jun, [facility] [address] [id number] [address] [place] [address], [place] [address] May, [facility] [address] [id number] [address] [place] [address], [place] [address] May, [facility] [address] [id number] [address] [place] [address], [place] [address] May, [facility] [address] [id number] [address] [place] [address], [place] [address] May, [facility] [address] [id number] [address] [place] [address], [place] [address] May, [facility] [address] [id number] [address] [place] [address], [place] [address] May, [facility] [address] [id number] [address] [place] [address], [place] [address] 30 Apr, 2013 [facility] [address] [id number] [address] [place] [address], [place] [address] Apr, [facility] [address] [id number] [address] [place] [address], [place] [address] Apr, [facility] [address] [id number] [address] [place] [address], [place] [address] Feb, [facility] [address] [id number] [address] [place] [address], [place] [address] Jan, [facility] [address] [id number] [address] [place] [address], [place] [address] Jan, [facility] [address] [id number] [address] [place] [address], [place] [address] 17 Jan, 2013 [facility] [address] [id number] [address] [place] [address], [place] [address] Jan, [facility] [address] [id number] [address] [place] [address], [place] [address] December, [facility] [address] [id number] [address] [place] [address], [place] [address] December, [facility] [address] [id number] [address] [place] [address], [place] [address] 24 Nov, 2012 [facility] [address] [id number] [address] [place] [address], [place] [address] Nov, [facility] [address] [id number] [address] [place] [address], [place] [address] Nov, [facility] [address] [id number] [address] [place] [address], [place] [address] Nov, [facility] [address] [id number] [address] [place] [address], [place] [address] 08 Nov, 2012 [facility] [address] [id number] [address] [place] [address], [place] [address] 08 Nov, 2012 [facility] [address] [id number] [address] [place] [address], [place] [address] 03 Nov, 2012 [facility] [address] [id number] [address] [place] [address], [place] [address] 27 Oct, 2012 [facility] [address] [id number] [address] [place] [address], [place] [address] 18 Oct, 2012 [facility] [address] [id number] [address] [place] [address], [place] [address] 14 Oct, 2012 [facility] [address] [id number] [address] [place] [address], [place] [address] 13 Oct, 2012 [facility] [address] [id number] [address] [place] [address], [place] [address] 12 Oct, 2012 [facility] [address] [id number] [address] [place] [address], [place] [address] Oct, [facility] [address] [id number] [address] [place] [address], [place] [address] 08 Oct, 2012 [facility] [address] [id number] [address] [place] [address], [place] [address] Sep, [facility] [address] [id number] [address] [place] [address], [place] [address] Sep, [facility] [address] [id number] [address] [place] [address], [place] [address] Aug, [facility] [address] [id number] [address] [place] [address], [place] [address] Aug, [facility] [address] [id number] [address] [place] [address], [place] [address] Jul, [facility] [address] [id number] [address] [place] [id number] Jul, [facility] [address] [id number] [address] [place] [address] Jul, [facility] [address] [id number] [address] [place] [address] Jul, [facility] [address] [id number] [address] [place] [address] Jul, [facility] [address] [id number] [address] [place] [address] Jul, [facility] [address] [facility] [id number] [address] [place] [id number] Jul, [facility] [address] [facility] [id number] [address] [place] [id number] Jul, [facility] [address] [facility] [id number] [address] [place] [id number] Jun, [facility] [address] [facility] [id number] [address] [place] [phone] Jun, IMMUNIZATIONS No Known Immunizations SOCIAL HISTORY Never Assessed REASON FOR VISIT PLAN OF CARE VITAL SIGNS Height 62 in 2014-07-21 Weight 244 lbs 2014-07-21 Temperature 97 degrees Fahrenheit 2014-07-21 Heart Rate 88 bpm 2014-07-21 Respiratory Rate 18 2014-07-21 Blood pressure systolic 140 mmHg 2014-07-21 Blood pressure diastolic 90 mmHg 2014-07-21 MEDICATIONS Unknown Medications RESULTS No Results PROCEDURES [...]
--- OUTSIDE RECORDS SUMMARY | 2020-02-11 03:10 | XMS REPORT ---
Author Author Madeline TORIBIO NA [facility] Organization [facility] Address [address] [place] [address] Care Team Providers Care Information Systems Auditor Name Role Phone MICHELINE CHANKALEN Unavailable PROBLEMS Type Condition ICD9-CM Code UMO68-RL Code Onset Dates Condition S tatus SNOMED Code Problem Numbness and tingling in hands R20.2 Active 345211685 Problem History of abnormal cervical Pap smear Z87.898 Active 781156588 Problem Stasis dermatitis of both legs I87.2 Active 88981354 Problem Pre-diabetes R73.09 Active 1437176 02 Problem Morbid obesity due to excess calories E66.01 Active 140076687 Problem GERD (gastroesophageal reflux disease) K21.9 Active 334650079 Problem Mood disorder F39 Active 191188 05 Problem Chronic pain G89.29 Active 1833776 1 Problem BMI 45.0-49.9, adult Z68.42 Active 367721743 Problem Essential hypertension I10 Active 08531585 Problem Primary insomnia F51.01 Active 397 2004 Problem Chronic recurrent major depressive disorder F33.9 Active 6845207 ALLERGIES No Information ENCOUNTERS Encounter Location Date Diagnosis [facility] [address] [facility] [id number] [address] [place] [address] December, [facility] [address] [facility] [id number] [address] [place] [address] Oct, BMI 45.0-49.9, adult Z68.42 and Chronic pain G89.29 [facility] [address] [facility] [id number] [address] [place] [address] 10 Sep, 2019 BMI 45.0-49.9, adult Z68.42 and Chronic pain G89.29 [facility] [address] [facility] [id number] [address] [place] [address] 10 Sep, 2019 Essential hypertension I10 [facility] [address] [facility] [id number] [address] [place] [address] 05 Sep, 2019 Tinea corporis B35.4 [place] [address] [facility] [id number] [address] [place] [address] 20 Aug, 2019 Acute non-recurrent maxillar y sinusitis J01.00 and Tinea corporis B35.4 [place] [address] [place] [id number] [address] [place] [address] 14 Aug, 2019 BMI 45.0-49.9, adult Z68.42 and Chronic pain G89.29 [place] [address] [address] Jul, BMI 45.0-49.9, adult Z68.42 and Chronic pain G89.29 [place] [address] [place] [id number] [address] [place] [address] Jul, Pre-diabetes R73.09 [place] [address] [place] [id number] [address] [place] [address] Jun, BMI 45.0-49.9, adult Z68.42 and Chronic pain G89.29 [place] [address] [place] [id number] [address] [place] [address] Jun, Acute non-recurrent maxillar y sinusitis J01.00 [place] [address] [place] [id number] [address] [place] [address] May, Chronic pain G89.29 and BMI 45.0-49.9, adult Z68.42 [place] [address] [place] [id number] [address] [place] [address] 25 Apr, 2019 Chronic pain G89.29 and BMI 45.0-49.9, adult Z68.42 [place] [address] [place] [address] 13 Apr, 2019 Mood disorder F39 [place] [address] [address] Mar, Chronic pain G89.29 and BMI 45.0-49.9, adult Z68.42 [place] [address] [address] Mar, Morbid obesity E66.01 ; 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 ; Morbid obesity due to excess calories E66.01 and High risk medication use Z79.899 [place] [address] [address] Mar, Chronic pain G89.29 and BMI 45.0-49.9, adult Z68.42 [place] [address] [address] Feb, [place] [address] [address] Feb, Chronic pain G89.29 and BMI 45.0-49.9, adult Z68.42 [place] [address] [address] Jan, [place] [address] [address] Jan, Chronic pain G89.29 and BMI 45.0-49.9, adult Z68.42 [place] [address] [address] Jan, [place] [address] [address] December, Chronic pain G89.29 and BMI 45.0-49.9, adult Z68.42 [place] [address] [address] Nov, Morbid obesity E66.01 and Ce llulitis of leg, left L03.116 [place] [address] [address] 15 Nov, 2018 Cellulitis of left lower ext remity L03.116 and Morbid obesity E66.01 [facility] [address] [address] 13 Nov, 2018 [facility] [address] [place] [id number] [place] [address] 12 Nov, 2018 Morbid obesity E66.01 and Ce llulitis of left lower extremity L03.116 [facility] [address] [address] 11 Nov, 2018 Chronic pain G89.29 and BMI 45.0-49.9, adult Z68.42 [place] [address] [address] Oct, BMI 45.0-49.9, adult Z68.42 and Chronic pain G89.29 [place] [address] [address] 14 Sep, 2018 BMI 45.0-49.9, adult Z68.42 and Chronic pain G89.29 [place] [address] [address] 05 Sep, 2018 BMI 45.0-49.9, adult Z68.42 and Essential hypertension I10 [place] [address] [address] Aug, BMI 45.0-49.9, adult Z68.42 ; Chronic pain G89.29 ; Essential hypertension I10 and Primary insomnia F51.01 [place] [address] [place] [address] Aug, Chronic pain G89.29 [place] [address] [address] Jul, Chronic pain G89.29 [place] [address] [place] [id number] [place] [address] Jun, Chronic pain G89.29 [facility] [address] [place] [address] [id number] [address] [place] [address] May, Chronic pain G89.29 [facility] [address] [facility] [id number] [address] [place] [address] May, BMI 40.0-44.9, adult Z68.41 ; Other chronic pain G89.29 ; Pain in right hip M25.551 and Acute pain of left knee M25.562 [facility] [address] [place] [address] [id number] [address] [place] [address] May, Chronic pain G89.29 [facility] [address] [place] [address] [id number] [address] [place] [address] Apr, Chronic pain G89.29 [facility] [address] [facility] [id number] [address] [place] [address] Mar, Poison josep L23.7 [facility] [address] [facility] [id number] [address] [place] [address] Mar, Chronic pain G89.29 [facility] [address] [place] [address] [id number] [address] [place] [address] Feb, Chronic pain G89.29 [facility] [address] [facility] [id number] [address] [place] [address] Feb, Poison josep L23.7 [facility] [address] [facility] [id number] [address] [place] [address] Jan, Chronic pain G89.29 [facility] [address] [place] [address] [id number] [address] [place] [address] December, Chronic pain G89.29 [facility] [address] [facility] [id number] [address] [place] [address] Nov, Long-term use of high-risk m edication Z79.899 [facility] [address] [facility] [id number] [address] [place] [address] Nov, Chronic pain G89.29 [place] [address] [address] Oct, Chronic pain G89.29 ; Pre-di abetes R73.09 ; Long-term use of high- risk medication Z79.899 ; Allergic rhinitis, unspecified seasonality, unspecified trigger J30.9 ; BMI 45.0-49.9, adult Z68.42 and Essential hypertension I10 [place] [address] [address] Oct, Chronic pain G89.29 [place] [address] [address] Sep, Chronic pain G89.29 [place] [address] [address] Aug, Chronic pain G89.29 [place] [address] [address] Jul, [place] [address] [address] Jul, [place] [address] [address] Jun, Chronic pain G89.29 ; BMI 45 .0-49.9, adult Z68.42 ; Pre-diabetes R73.09 ; Essential hypertension I10 ; GERD (gastroesophageal reflux disease) K21.9 ; Yeast dermatitis B37.2 ; Dysuria R30.0 ; Acute non-recurrent maxillary sinusitis J01.00 and Acute cystitis with hematuria N30.01 [place] [address] [address] Jun, Chronic pain G89.29 [place] [address] [address] 02 Jun, 2017 Acute non-recurrent maxillar y sinusitis J01.00 and BMI 45.0-49.9, adult Z68.42 [place] [address] [place] [id number] [address] [place] [address] May, [place] [address] [address] May, Chronic pain G89.29 [place] [address] [address] May, [place] [address] [address] Apr, Chronic pain G89.29 [place] [address] [address] Mar, [place] [address] [address] Mar, Essential hypertension I10 a nd Pre-diabetes R73.09 [place] [address] [address] Mar, Chronic pain G89.29 ; Essent ial hypertension I10 ; Depressive disorder, not elsewhere classified F32.9 ; GERD (gastroesophageal reflux disease) K21.9 ; Pre-diabetes R73.09 ; Stasis dermatitis of both legs I87.2 and Acute non-recurrent maxillary sinusitis J01.00 [place] [address] [place] [id number] [place] [address] Mar, Chronic pain G89.29 [place] [address] [place] [id number] [place] [address] Mar, Achilles tendinitis of right lower extremity M76.61 and Tinea corporis B35.4 [place] [address] [place] [id number] [place] [address] Feb, Yeast dermatitis B37.2 [place] [address] [place] [id number] [place] [address] 14 Feb, 2017 Candidal intertrigo B37.2 an d Acute right ankle pain M25.571 [place] [address] [place] [address] Feb, Chronic pain G89.29 [place] [address] [place] [id number] [address] [place] [address] Jan, [place] [address] [place] [id number] [address] [place] [address] Jan, Chronic pain G89.29 [place] [address] [place] [id number] [address] [place] [address] December, Chronic pain G89.29 ; Essent ial hypertension I10 ; Depressive disorder, not elsewhere classified F32.9 ; GERD (gastroesophageal reflux disease) K21.9 ; Pre-diabetes R73.09 ; Screening breast examination Z12.39 ; Stasis dermatitis of both legs I87.2 and Yeast dermatitis B37.2 [place] [address] [place] [id number] [address] [place] [address] Nov, Chronic pain G89.29 [place] [address] [place] [id number] [address] [place] [address] Nov, Cellulitis of left lower ext remity L03.116 [place] [address] [place] [id number] [address] [place] [address] Nov, Cellulitis of left lower ext remity L03.116 [place] [address] [place] [id number] [address] [place] [address] Oct, Yeast dermatitis B37.2 [place] [address] [place] [id number] [address] [place] [address] Oct, Chronic pain G89.29 [place] [address] [place] [id number] [address] [place] [address] Sep, Chronic pain G89.29 ; Essent ial hypertension I10 ; Depressive disorder, not elsewhere classified F32.9 and GERD (gastroesophageal reflux disease) K21.9 [place] [address] [place] [id number] [address] [place] [address] Aug, Chronic pain G89.29 [facility] [address] [address] Aug, Cough R05 ; Rash R21 and Vinay h and nonspecific skin eruption R21 [place] [address] [address] Jul, Chronic pain G89.29 [place] [address] [address] Jun, Chronic pain G89.29 ; Bronch itis J40 ; Essential hypertension I10 ; Depressive disorder, not elsewhere classified F32.9 ; GERD (gastroesophageal reflux disease) K21.9 and History of long-term use of multiple prescription drugs Z92.29 [place] [address] [address] Jun, Bronchitis J40 ; Chills R68. 83 and Sore throat J02.9 [place] [address] [address] May, [place] [address] [address] Apr, [facility] [address] [address] Apr, Acute mucoid otitis media of both ears H65.113 [place] [address] [address] Apr, Yeast dermatitis B37.2 and H ematuria R31.9 [facility] [address] [address] Mar, [place] [address] [address] Mar, [place] [address] [address] Feb, Left anterior knee pain M25. 562 [place] [address] [address] Feb, Chronic pain G89.29 ; Essent ial hypertension I10 ; Depressive disorder, not elsewhere classified F32.9 ; GERD (gastroesophageal reflux disease) K21.9 and History of long-term use of multiple prescription drugs Z92.29 [place] [address] [address] Jan, [address] [address] Jan, Well woman exam Z01.419 ; BM I 45.0-49.9, adult Z68.42 ; Family history of diabetes mellitus Z83.3 and Chronic pain G89.[address] [address] December, Chronic pain G89.29 ; Essent ial hypertension I10 ; Depressive disorder, not elsewhere classified F32.9 ; GERD (gastroesophageal reflux disease) K21.9 ; 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 ; History of long-term use of multiple prescription drugs Z92.29 and Obesity E66.[address] [address] Oct, [address] [address] Oct, Well woman exam Z01.419 ; BM [...] smear Z12.4 and No natural teeth K00.[address] [address] Oct, [address] [id number] [address] [place] [address] Sep, Chronic pain G89.29 ; Essent ial hypertension I10 ; GERD (gastroesophageal reflux disease) K21.9 ; 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 ; Skin infection L08.9 and History of long-term use of multiple prescription drugs Z92.29 [place] [address] [place] [id number] [address] [place] [address] Aug, [place] [address] [place] [id number] [place] [address] Jul, [place] [address] [place] [id number] [place] [address] Jul, [place] [address] [address] Jul, Upper respiratory infection J06.9 [place] [address] [address] Jul, Depressive disorder, not els ewhere classified F32.9 [place] [address] [place] [id number] [address] [place] [address] Jul, Chronic pain 338.29 [place] [address] [place] [id number] [place] [address] Jul, Chronic pain G89.29 [place] [address] [place] [id number] [address] [place] [address] 16 Jun, 2015 Poison josep L23.7 [place] [address] [place] [id number] [address] [place] [address] 11 Jun, 2015 Allergic contact dermatitis due to plants, except food L23.7 [place] [address] [place] [id number] [address] [place] [address] 03 Jun, 2015 Essential hypertension I10 ; Chronic pain G89.29 ; GERD (gastroesophageal reflux disease) K21.9 and Numbness and tingling in hands R20.2 [place] [id number] [address] [place] [address], [place] [address] May, [facility] [address] [address] Apr, [facility] [address] [address] Mar, [facility] [address] [address] Feb, Abdominal pain, left lateral 789.09 and Constipation 564.00 [place] [address] [address] Feb, Depressive disorder, not els ewhere classified 311 and No condition on [place] V71.09 [place] [address] [address] Feb, Spider bite 989.5 and Depres homar 311 [place] [address] [address] Feb, [place] [address] [address] Feb, Chronic pain 338.29 ; Arthro zonia 716.90 and GERD (gastroesophageal reflux disease) 530.81 [place] [address] [address] Jan, Insect bites 919.4 [place] [address] [address] Jan, [place] [address] [address] December, Skin infection, bacterial 68 6.9 ; Conjunctivitis 372.30 and Insect bites 919.4 [place] [address] [address] December, Chronic pain 338.29 ; Arthro zonia 716.90 ; Skin infection, bacterial 686.9 and Conjunctivitis 372.30 [facility] [address] [id number] [address] [place] [address], [place] [address] December, [facility] [address] [id number] [address] [place] [address], [place] [address] Nov, [facility] [address] [id number] [address] [place] [address], [place] [address] Nov, [facility] [address] [id number] [address] [place] [address], [place] [address] Oct, [facility] [address] [id number] [address] [place] [address], [place] [address] Oct, [facility] [address] [id number] [address] [place] [address], [place] [address] Sep, [facility] [address] [place] [address] [id number] [address] [place] [address], [place] [address] Sep, [facility] [address] [place] [address] [id number] [address] [place] [address], [place] [address] Aug, [facility] [address] [place] [address] [id number] [address] [place] [address], [place] [address] Aug, [facility] [address] [place] [address] [id number] [address] [place] [address], [place] [address] Aug, [facility] [address] [place] [address] [id number] [address] [place] [address], [place] [address] Aug, [facility] [address] [id number] [address] [place] [address], [place] [address] Jul, [facility] [address] [id number] [address] [place] [address], [place] [address] Jul, [facility] [address] [id number] [address] [place] [address], [place] [address] Jul, [facility] [address] [id number] [address] [place] [address], [place] [address] Jul, [facility] [address] [id number] [address] [place] [address], [place] [address] 15 Jul, 2014 [facility] [address] [id number] [address] [place] [address], [place] [address] 15 Jul, 2014 [facility] [address] [id number] [address] [place] [address], [place] [address] 15 Jul, 2014 [facility] [address] [place] [address] [id number] [address] [place] [address], [place] [address] Jul, [facility] [address] [id number] [address] [place] [address], [place] [address] Jul, [facility] [address] [id number] [address] [place] [address], [place] [address] Jun, [facility] [address] [id number] [address] [place] [address], [place] [address] Jun, [facility] [address] [place] [address] [id number] [address] [place] [address], [place] [address] Jun, [facility] [address] [id number] [address] [place] [address], [place] [address] Jun, [facility] [address] [place] [address] [id number] [address] [place] [address], [place] [address] Jun, [facility] [address] [place] [address] [id number] [address] [place] [address], [place] [address] Jun, [facility] [address] [id number] [address] [place] [address], [place] [address] Jun, [facility] [address] [id number] [address] [place] [address], [place] [address] Jun, [facility] [address] [id number] [address] [place] [address], [place] [address] May, [facility] [address] [id number] [address] [place] [address], [place] [address] 17 May, 2014 [facility] [address] [id number] [address] [place] [address], [place] [address] 16 May, 2014 [facility] [address] [id number] [address] [place] [address], [place] [address] May, [facility] [address] [id number] [address] [place] [address], [place] [address] May, [facility] [address] [id number] [address] [place] [address], [place] [address] Apr, 2013 [facility] [address] [id number] [address] [place] [address], [place] [address] Apr, 2013 [facility] [address] [id number] [address] [place] [address], [place] [address] Apr, 2013 [facility] [address] [id number] [address] [place] [address], [place] [address] Apr, [facility] [address] [id number] [address] [place] [address], [place] [address] Apr, 2013 [facility] [address] [id number] [address] [place] [address], [place] [address] Apr, 2013 [facility] [address] [id number] [address] [place] [address], [place] [address] Apr, [facility] [address] [id number] [address] [place] [address], [place] [address] Apr, [facility] [address] [id number] [address] [place] [address], [place] [address] Apr, [facility] [address] [id number] [address] [place] [address], [place] [address] Apr, [facility] [address] [id number] [address] [place] [address], [place] [address] Mar, [facility] [address] [id number] [address] [place] [address], [place] [address] Mar, [facility] [address] [id number] [address] [place] [address], [place] [address] Mar, [facility] [address] [id number] [address] [place] [address], [place] [address] Mar, [facility] [address] [id number] [address] [place] [address], [place] [address] Mar, [facility] [address] [id number] [address] [place] [address], [place] [address] Mar, [facility] [address] [id number] [address] [place] [address], [place] [address] Feb, [facility] [address] [id number] [address] [place] [address], [place] [address] Feb, [facility] [address] [id number] [address] [place] [address], [place] [address] Jan, [facility] [address] [id number] [address] [place] [address], [place] [address] Jan, [facility] [address] [id number] [address] [place] [address], [place] [address] Jan, [facility] [address] [id number] [address] [place] [address], [place] [address] Jan, [facility] [address] [id number] [address] [place] [address], [place] [address] December, [facility] [address] [id number] [address] [place] [address], [place] [address] December, [facility] [address] [id number] [address] [place] [address], [place] [address] December, [facility] [address] [id number] [address] [place] [address], [place] [address] December, [facility] [address] [id number] [address] [place] [address], [place] [address] December, [facility] [address] [id number] [address] [place] [address], [place] [address] December, [facility] [address] [id number] [address] [place] [address], [place] [address] December, [facility] [address] [id number] [address] [place] [address], [place] [address] December, [facility] [address] [id number] [address] [place] [address], [place] [address] December, [facility] [address] [id number] [address] [place] [address], [place] [address] Nov, [facility] [address] [id number] [address] [place] [address], [place] [address] Nov, [facility] [address] [id number] [address] [place] [address], [place] [address] Nov, [facility] [address] [id number] [address] [place] [address], [place] [address] Nov, [facility] [address] [id number] [address] [place] [address], [place] [address] Nov, [facility] [address] [id number] [address] [place] [address], [place] [address] Nov, [facility] [address] [id number] [address] [place] [address], [place] [address] Nov, [facility] [address] [id number] [address] [place] [address], [place] [address] Nov, [facility] [address] [id number] [address] [place] [address], [place] [address] Nov, [facility] [address] [id number] [address] [place] [address], [place] [address] Nov, [facility] [address] [id number] [address] [place] [address], [place] [address] Oct, [facility] [address] [id number] [address] [place] [address], [place] [address] Oct, [facility] [address] [id number] [address] [place] [address], [place] [address] Sep, [facility] [address] [id number] [address] [place] [address], [place] [address] Sep, [facility] [address] [id number] [address] [place] [address], [place] [address] 17 Aug, 2013 [facility] [address] [id number] [address] [place] [address], [place] [address] 17 Aug, 2013 [facility] [address] [id number] [address] [place] [address], [place] [address] Aug, [facility] [address] [id number] [address] [place] [address], [place] [address] Aug, [facility] [address] [id number] [address] [place] [address], [place] [address] Jul, [facility] [address] [id number] [address] [place] [address], [place] [address] Jul, [facility] [address] [id number] [address] [place] [address], [place] [address] Jul, [facility] [address] [id number] [address] [place] [address], [place] [address] Jul, [facility] [address] [id number] [address] [place] [address], [place] [address] Jun, [facility] [address] [id number] [address] [place] [address], [place] [address] Jun, [facility] [address] [id number] [address] [place] [address], [place] [address] May, [facility] [address] [id number] [address] [place] [address], [place] [address] May, [facility] [address] [id number] [address] [place] [address], [place] [address] May, [facility] [address] [id number] [address] [place] [address], [place] [address] May, [facility] [address] [id number] [address] [place] [address], [place] [address] May, [facility] [address] [id number] [address] [place] [address] [address] May, [facility] [address] [id number] [address] [place] [address], [place] [address] 30 Apr, 2013 [facility] [address] [id number] [address] [place] [address], [place] [address] 23 Apr, 2013 [facility] [address] [id number] [address] [place] [address], [place] [address] Apr, [facility] [address] [id number] [address] [place] [address], [place] [address] Feb, [facility] [address] [id number] [address] [place] [address], [place] [address] Jan, [facility] [address] [id number] [address] [place] [address], [place] [address] Jan, [facility] [address] [id number] [address] [place] [address], [place] [address] Jan, [facility] [address] [id number] [address] [place] [address], [place] [address] Jan, [facility] [address] [id number] [address] [place] [address], [place] [address] December, [facility] [address] [id number] [address] [place] [address], [place] [address] December, [facility] [address] [id number] [address] [place] [address], [place] [address] 24 Nov, 2012 [facility] [address] [id number] [address] [place] [address], [place] [address] Nov, [facility] [address] [id number] [address] [place] [address], [place] [address] Nov, [facility] [address] [id number] [address] [place] [address], [place] [address] Nov, [facility] [address] [id number] [address] [place] [address], [place] [address] 08 Nov, 2012 [facility] [address] [id number] [address] [place] [address], [place] [address] 08 Nov, 2012 [facility] [address] [id number] [address] [place] [address], [place] [address] 03 Nov, 2012 [facility] [address] [id number] [address] [place] [address], [place] [address] 27 Oct, 2012 [facility] [address] [id number] [address] [place] [address], [place] [address] 18 Oct, 2012 [facility] [address] [id number] [address] [place] [address], [place] [address] 14 Oct, 2012 [facility] [address] [id number] [address] [place] [address], [place] [address] 13 Oct, 2012 [facility] [address] [id number] [address] [place] [address], [place] [address] 12 Oct, 2012 [facility] [address] [id number] [address] [place] [address], [place] [address] 11 Oct, 2012 [facility] [address] [id number] [address] [place] [address], [place] [address] 08 Oct, 2012 [facility] [address] [id number] [address] [place] [address], [place] [address] 20 Sep, 2012 [facility] [address] [id number] [address] [place] [address], [place] [address] Sep, [facility] [address] [id number] [address] [place] [address], [place] [address] Aug, [facility] [address] [id number] [address] [place] [address], [place] [address] Aug, [facility] [address] [id number] [address] [place] [address], [place] [address] Jul, [facility] [address] [id number] [address] [place] [address], [place] [address] Jul, [facility] [address] [id number] [address] [place] [address], [place] [address] Jul, [facility] [address] [id number] [address] [place] [id number] Jul, [facility] [address] [place] [address] [id number] [address] [place] [id number] Jul, [facility] [address] [place] [address] [id number] [address] [place] [id number] Jul, [facility] [address] [place] [address] [id number] [address] [place] [id number] Jul, [facility] [address] [place] [address] [id number] [address] [place] [id number] Jul, [facility] [address] [place] [address] [id number] [address] [place] [id number] Jun, [facility] [address] [place] [address] [id number] [address] [place] [phone] Jun, IMMUNIZATIONS No Known Immunizations SOCIAL HISTORY Never Assessed REASON FOR VISIT PLAN OF CARE VITAL SIGNS Height 65 in 2013-08-22 Weight 245.5 lbs 2013-08-22 Temperature 98.8 degrees Fahrenheit 2013-08-22 Heart Rate 78 bpm 2013-08-22 Respiratory Rate 16 2013-08-22 Blood pressure systolic 116 mmHg 2013-08-22 Blood pressure diastolic 72 mmHg 2013-08-22 MEDICATIONS Unknown Medications RESULTS No Results PROCEDURES Procedure Date Ordered Result Body Site INFLUENZA ASSAY W/OPTIC Aug 22, 2013 INSTRUCTIONS MEDICATIONS ADMINISTERED No Known Medications MEDICAL [...] -- total 11/2012 Hospitalization History ER- in [place] due to left knee 8
--- OUTSIDE RECORDS SUMMARY | 2020-02-11 03:10 | XMS REPORT ---
Author Author Madeline Magdaleno Doctor Organization [facility] Address Unknown Phone Unavailable Care Team Providers Care Control Panel Builder Name Role Phone Migration, Doctor Unavailable Unavailable PROBLEMS Type Condition ICD9-CM Code DER40-BY Code Onset Dates Condition S tatus SNOMED Code Problem Numbness and tingling in hands R20.2 Active 471889887 Problem History of abnormal cervical Pap smear Z87.898 Active 575532380 Problem Stasis dermatitis of both legs I87.2 Active 10675228 Problem Pre-diabetes R73.09 Active 9403621 02 Problem Morbid obesity due to excess calories E66.01 Active 384991618 Problem GERD (gastroesophageal reflux disease) K21.9 Active 895854027 Problem Mood disorder F39 Active 162209 05 Problem Chronic pain G89.29 Active 0281850 1 Problem BMI 45.0-49.9, adult Z68.42 Active 609478367 Problem Essential hypertension I10 Active 51310118 Problem Primary insomnia F51.01 Active 397 2004 Problem Chronic recurrent major depressive disorder F33.9 Active 1742634 ALLERGIES No Information ENCOUNTERS Encounter Location Date Diagnosis [facility] [id number] [place] [phone] December, [facility] [address] [place] [address] 05 Oct, 2019 BMI 45.0-49.9, adult Z68.42 and Chronic pain G89.29 [facility] [id number] [place] [address] 10 Sep, 2019 BMI 45.0-49.9, adult Z68.42 and Chronic pain G89.29 [facility] [id number] [place] [phone] 10 Sep, 2019 Essential hypertension I10 [facility] [id number] [place] [address] Sep, Tinea corporis B35.4 [place] [address] [facility] [id number] [address] [place] [phone] Aug, Acute non-recurrent maxillar y sinusitis J01.00 and Tinea corporis B35.4 [place] [address] [facility] [id number] [address] [place] [address] 14 Aug, 2019 BMI 45.0-49.9, adult Z68.42 and Chronic pain G89.29 [place] [address] [id number] [address] [place] [phone] Jul, BMI 45.0-49.9, adult Z68.42 and Chronic pain G89.29 [place] [address] [facility] [id number] [address] [place] [address] Jul, Pre-diabetes R73.09 [place] [address] [address] [id number] [place] [address] Jun, BMI 45.0-49.9, adult Z68.42 and Chronic pain G89.29 [place] [address] [place] [address] [id number] [place] [address] Jun, Acute non-recurrent maxillar y sinusitis J01.00 [place] [address] [facility] [id number] [address] [place] [phone] May, Chronic pain G89.29 and BMI 45.0-49.9, adult Z68.42 [place] [address] [facility] [id number] [address] [place] [phone] Apr, Chronic pain G89.29 and BMI 45.0-49.9, adult Z68.42 [place] [address] [facility] [id number] [address] [place] [phone] Apr, Mood disorder F39 [place] [address] [id number] [place] [address] Mar, Chronic pain G89.29 and BMI 45.0-49.9, adult Z68.42 [facility] [address] [facility] [id number] [address] [place] [address] Mar, Morbid obesity E66.01 ; 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 recurrent major depressive disorder F33.9 ; Morbid obesity due to excess calories E66.01 and High risk medication use Z79.899 [facility] [address] [facility] [id number] [address] [place] [address] Mar, Chronic pain G89.29 and BMI 45.0-49.9, adult Z68.42 [place] [address] [facility] [id number] [address] [place] [address] Feb, [place] [address] [id number] [place] [address] Feb, Chronic pain G89.29 and BMI 45.0-49.9, adult Z68.42 [place] [address] [address] [id number] [place] [address] Jan, [place] [address] [id number] [place] [address] Jan, Chronic pain G89.29 and BMI 45.0-49.9, adult Z68.42 [place] [address] [address] [id number] [place] [address] Jan, [place] [address] [address] [id number] [place] [address] December, Chronic pain G89.29 and BMI 45.0-49.9, adult Z68.42 [place] [address] [facility] [id number] [address] [place] [address] Nov, Morbid obesity E66.01 and Ce llulitis of leg, left L03.116 [facility] [id number] [place] [address] 15 Nov, 2018 Cellulitis of left lower ext remity L03.116 and Morbid obesity E66.01 [facility] [address] [address] 13 Nov, 2018 [place] [address] [address] 12 Nov, 2018 Morbid obesity E66.01 and Ce llulitis of left lower extremity L03.116 [place] [address] [address] Nov, Chronic pain G89.29 and BMI 45.0-49.9, adult Z68.42 [place] [address] [address] Oct, BMI 45.0-49.9, adult Z68.42 and Chronic pain G89.29 [place] [address] [address] 14 Sep, 2018 BMI 45.0-49.9, adult Z68.42 and Chronic pain G89.29 [place] [address] [address] 05 Sep, 2018 BMI 45.0-49.9, adult Z68.42 and Essential hypertension I10 [place] [address] [address] Aug, BMI 45.0-49.9, adult Z68.42 ; Chronic pain G89.29 ; Essential hypertension I10 and Primary insomnia F51.01 [place] [address] [address] Aug, Chronic pain G89.29 [place] [address] [address] Jul, Chronic pain G89.29 [place] [address] [address] Jun, Chronic pain G89.29 [place] [address] [address] May, Chronic pain G89.29 [facility] [address] [id number] [address] [place] [address] May, BMI 40.0-44.9, adult Z68.41 ; Other chronic pain G89.29 ; Pain in right hip M25.551 and Acute pain of left knee M25.562 [facility] [address] [id number] [address] [place] [address] May, Chronic pain G89.29 [facility] [address] [id number] [address] [place] [address] Apr, Chronic pain G89.29 [facility] [address] [id number] [address] [place] [address] Mar, Poison josep L23.7 [facility] [address] [id number] [address] [place] [address] Mar, Chronic pain G89.29 [facility] [address] [id number] [address] [place] [phone] Feb, Chronic pain G89.29 [facility] [address] [id number] [address] [place] [address] Feb, Poison josep L23.7 [facility] [address] [id number] [address] [place] [address] Jan, Chronic pain G89.29 [facility] [address] [facility] [id number] [address] [place] [address] December, Chronic pain G89.29 [facility] [address] [id number] [address] [place] [address] Nov, Long-term use of high-risk m edication Z79.899 [facility] [address] [facility] [id number] [address] [place] [phone] Nov, Chronic pain G89.29 [facility] [address] [facility] [id number] [address] [place] [address] Oct, Chronic pain G89.29 ; Pre-di abetes R73.09 ; Long-term use of high- risk medication Z79.899 ; Allergic rhinitis, unspecified seasonality, unspecified trigger J30.9 ; BMI 45.0-49.9, adult Z68.42 and Essential hypertension I10 [place] [id number] [place] [address] Oct, Chronic pain G89.29 [place] [address] [address] Sep, Chronic pain G89.29 [place] [id number] [place] [address] Aug, Chronic pain G89.29 [place] [id number] [place] [address] Jul, [place] [address] [address] Jul, [place] [id number] [place] [address] Jun, Chronic pain G89.29 ; BMI 45 .0-49.9, adult Z68.42 ; Pre-diabetes R73.09 ; Essential hypertension I10 ; GERD (gastroesophageal reflux disease) K21.9 ; Yeast dermatitis B37.2 ; Dysuria R30.0 ; Acute non-recurrent maxillary sinusitis J01.00 and Acute cystitis with hematuria N30.01 [place] [address] [id number] [place] [address] Jun, Chronic pain G89.29 [place] [id number] [place] [address] Jun, Acute non-recurrent maxillar y sinusitis J01.00 and BMI 45.0-49.9, adult Z68.42 [place] [address] [id number] [place] [address] May, [place] [address] [id number] [place] [address] May, Chronic pain G89.29 [place] [address] [id number] [address] [place] [address] May, [place] [id number] [place] [address] Apr, Chronic pain G89.29 [place] [address] [address] Mar, [place] [address] [address] Mar, Essential hypertension I10 a nd Pre-diabetes R73.09 [place] [address] [address] 15 Mar, 2017 Chronic pain G89.29 ; Essent ial hypertension I10 ; Depressive disorder, not elsewhere classified F32.9 ; GERD (gastroesophageal reflux disease) K21.9 ; Pre-diabetes R73.09 ; Stasis dermatitis of both legs I87.2 and Acute non-recurrent maxillary sinusitis J01.00 [place] [address] [address] Mar, Chronic pain G89.29 [place] [address] [id number] [place] [address] Mar, Achilles tendinitis of right lower extremity M76.61 and Tinea corporis B35.4 [place] [address] [id number] [place] [address] 17 Feb, 2017 Yeast dermatitis B37.2 [place] [address] [address] 14 Feb, 2017 Candidal intertrigo B37.2 an d Acute right ankle pain M25.571 [place] [address] [id number] [place] [address] Feb, Chronic pain G89.29 [place] [id number] [place] [address] Jan, [place] [address] [facility] [id number] [address] [place] [address] Jan, Chronic pain G89.29 [place] [address] [facility] [id number] [address] [place] [address] December, Chronic pain G89.29 ; Essent ial hypertension I10 ; Depressive disorder, not elsewhere classified F32.9 ; GERD (gastroesophageal reflux disease) K21.9 ; Pre-diabetes R73.09 ; Screening breast examination Z12.39 ; Stasis dermatitis of both legs I87.2 and Yeast dermatitis B37.2 [place] [address] [facility] [id number] [address] [place] [address] Nov, Chronic pain G89.29 [place] [address] [facility] [id number] [address] [place] [address] Nov, Cellulitis of left lower ext remity L03.116 [place] [address] [id number] [address] [place] [address] Nov, Cellulitis of left lower ext remity L03.116 [place] [address] [facility] [id number] [address] [place] [address] Oct, Yeast dermatitis B37.2 [place] [address] [facility] [id number] [address] [place] [address] Oct, Chronic pain G89.29 [place] [address] [facility] [id number] [address] [place] [address] Sep, Chronic pain G89.29 ; Essent ial hypertension I10 ; Depressive disorder, not elsewhere classified F32.9 and GERD (gastroesophageal reflux disease) K21.9 [place] [address] [facility] [id number] [address] [place] [address] Aug, Chronic pain G89.29 [place] [address] [address] [id number] [place] [phone] Aug, Cough R05 ; Rash R21 and Vinay h and nonspecific skin eruption R21 [place] [address] [address] Jul, Chronic pain G89.29 [place] [address] [address] [id number] [place] [address] Jun, Chronic pain G89.29 ; Bronch itis J40 ; Essential hypertension I10 ; Depressive disorder, not elsewhere classified F32.9 ; GERD (gastroesophageal reflux disease) K21.9 and History of long-term use of multiple prescription drugs Z92.29 [place] [address] [address] Jun, Bronchitis J40 ; Chills R68. 83 and Sore throat J02.9 [place] [address] [address] May, [place] [address] [address] Apr, [facility] [address] [address] Apr, Acute mucoid otitis media of both ears H65.113 [place] [address] [address] 07 Apr, 2016 Yeast dermatitis B37.2 and H ematuria R31.9 [place] [id number] [place] [address] Mar, [place] [address] [address] Mar, [place] [address] [address] Feb, Left anterior knee pain M25. 562 [place] [address] [address] Feb, Chronic pain G89.29 ; Essent ial hypertension I10 ; Depressive disorder, not elsewhere classified F32.9 ; GERD (gastroesophageal reflux disease) K21.9 and History of long-term use of multiple prescription drugs Z92.[address] [address] Jan, [address] [address] Jan, Well woman exam Z01.419 ; BM I 45.0-49.9, adult Z68.42 ; Family history of diabetes mellitus Z83.3 and Chronic pain G89.[address] [address] December, Chronic pain G89.29 ; Essent ial hypertension I10 ; Depressive disorder, not elsewhere classified F32.9 ; GERD (gastroesophageal reflux disease) K21.9 ; 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 ; History of long-term use of multiple prescription drugs Z92.29 and Obesity E66.[address] [address] Oct, [address] [address] Oct, Well woman exam Z01.419 ; BM [...] smear Z12.4 and No natural teeth K00.[address] [address] Oct, [address] [address] Sep, Chronic pain G89.29 ; Essent ial hypertension I10 ; GERD (gastroesophageal reflux disease) K21.9 ; 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 ; Skin infection L08.9 and History of long-term use of multiple prescription drugs Z92.29 [place] [address] [facility] [id number] [address] [place] [address] Aug, [place] [id number] [facility] [id number] [address] [place] [address] Jul, [place] [address] [facility] [id number] [address] [place] [address] Jul, [place] [address] [facility] [id number] [address] [place] [address] Jul, Upper respiratory infection J06.9 [place] [address] [place] [id number] [place] [address] Jul, Depressive disorder, not els ewhere classified F32.9 [place] [id number] [place] [address] Jul, Chronic pain 338.29 [place] [address] [facility] [id number] [address] [place] [address] Jul, Chronic pain G89.29 [place] [address] [place] [id number] [place] [address] Jun, Poison josep L23.7 [place] [address] [facility] [id number] [address] [place] [address] Jun, Allergic contact dermatitis due to plants, except food L23.7 [place] [address] [facility] [id number] [address] [place] [address] 03 Jun, 2015 Essential hypertension I10 ; Chronic pain G89.29 ; GERD (gastroesophageal reflux disease) K21.9 and Numbness and tingling in hands R20.2 [place] [address] [place] [id number] [place] [address] May, [place] [address] [place] [id number] [place] [address] Apr, [facility] [address] [id number] [address] [place] [address] Mar, [facility] [address] [address] Feb, Abdominal pain, left lateral 789.09 and Constipation 564.00 [place] [address] [address] Feb, Depressive disorder, not els ewhere classified 311 and No condition on Dundas II V71.09 [place] [address] [address] Feb, Spider bite 989.5 and Depres homar 311 [place] [address] [address] Feb, [facility] [address] [address] Feb, Chronic pain 338.29 ; Arthro zonia 716.90 and GERD (gastroesophageal reflux disease) 530.81 [place] [address] [address] Jan, Insect bites 919.4 [place] [address] [place] [id number] [place] [address] Jan, [facility] [address] [address] December, Skin infection, bacterial 68 6.9 ; Conjunctivitis 372.30 and Insect bites 919.4 [place] [address] [place] [id number] [place] [address] December, Chronic pain 338.29 ; Arthro zonia 716.90 ; Skin infection, bacterial 686.9 and Conjunctivitis 372.30 [facility] [address] [place] [id number] [address] [place] [address] December, [facility] [address] [id number] [address] [place] [address], [place] [address] 14 Nov, 2014 [facility] [address] [id number] [address] [place] [address], [place] [address] Nov, [facility] [address] [id number] [address] [place] [address], [place] [address] Oct, [facility] [address] [id number] [address] [place] [address], [place] [address] Oct, [facility] [address] [id number] [address] [place] [address], [place] [address] Sep, [facility] [address] [id number] [address] [place] [address], [place] [address] Sep, [facility] [address] [id number] [address] [place] [address], [place] [address] Aug, [facility] [address] [id number] [address] [place] [address], [place] [address] Aug, [facility] [address] [id number] [address] [place] [address], [place] [address] Aug, [facility] [address] [id number] [address] [place] [address], [place] [address] Aug, [facility] [address] [id number] [address] [place] [address], [place] [address] Jul, [facility] [address] [id number] [address] [place] [address], [place] [address] Jul, [facility] [address] [id number] [address] [place] [address], [place] [address] Jul, [facility] [address] [id number] [address] [place] [address], [place] [address] Jul, [facility] [address] [id number] [address] [place] [address], [place] [address] Jul, [facility] [address] [id number] [address] [place] [address], [place] [address] Jul, [facility] [address] [id number] [address] [place] [address], [place] [address] Jul, [facility] [address] [id number] [address] [place] [address], [place] [address] Jul, [facility] [address] [id number] [address] [place] [address], [place] [address] Jul, [facility] [address] [id number] [address] [place] [address], [place] [address] Jun, [facility] [address] [id number] [address] [place] [address], [place] [address] Jun, [facility] [address] [id number] [address] [place] [address], [place] [address] Jun, [facility] [address] [id number] [address] [place] [address], [place] [address] Jun, [facility] [address] [id number] [address] [place] [address], [place] [address] Jun, [facility] [address] [id number] [address] [place] [address], [place] [address] Jun, [facility] [address] [id number] [address] [place] [address], [place] [address] Jun, [facility] [address] [id number] [address] [place] [address], [place] [address] Jun, [facility] [address] [id number] [address] [place] [address], [place] [address] May, [facility] [address] [id number] [address] [place] [address], [place] [address] May, [facility] [address] [id number] [address] [place] [address], [place] [address] May, [facility] [address] [id number] [address] [place] [address], [place] [address] May, [facility] [address] [id number] [address] [place] [address] [place] [address] May, [facility] [address] [id number] [address] [place] [address], [place] [address] 26 Apr, 2013 [facility] [address] [id number] [address] [place] [address], [place] [address] Apr, 2013 [facility] [address] [id number] [address] [place] [address], [place] [address] Apr, 2013 [facility] [address] [id number] [address] [place] [address], [place] [address] 25 Apr, 2013 [facility] [address] [id number] [address] [place] [address], [place] [address] 18 Apr, 2013 [facility] [address] [id number] [address] [place] [address], [place] [address] Apr, 2013 [facility] [address] [id number] [address] [place] [address], [place] [address] Apr, 2013 [facility] [address] [id number] [address] [place] [address], [place] [address] Apr, 2013 [facility] [address] [id number] [address] [place] [address], [place] [address] Apr, 2013 [facility] [address] [id number] [address] [place] [address], [place] [address] Apr, [facility] [address] [id number] [address] [place] [address], [place] [address] Mar, [facility] [address] [id number] [address] [place] [address], [place] [address] Mar, [facility] [address] [id number] [address] [place] [address], [place] [address] Mar, [facility] [address] [id number] [address] [place] [address], [place] [address] Mar, [facility] [address] [id number] [address] [place] [address], [place] [address] Mar, [facility] [address] [id number] [address] [place] [address], [place] [address] Mar, [facility] [address] [id number] [address] [place] [address], [place] [address] Feb, [facility] [address] [id number] [address] [place] [address], [place] [address] Feb, [facility] [address] [id number] [address] [place] [address], [place] [address] Jan, [facility] [address] [id number] [address] [place] [address], [place] [address] Jan, [facility] [address] [id number] [address] [place] [address], [place] [address] Jan, [facility] [address] [id number] [address] [place] [address], [place] [address] Jan, [facility] [address] [id number] [address] [place] [address], [place] [address] December, [facility] [address] [id number] [address] [place] [address], [place] [address] December, [facility] [address] [id number] [address] [place] [address], [place] [address] December, [facility] [address] [id number] [address] [place] [address], [place] [address] December, [facility] [address] [id number] [address] [place] [address], [place] [address] December, [facility] [address] [id number] [address] [place] [address], [place] [address] December, [facility] [address] [id number] [address] [place] [address], [place] [address] December, [facility] [address] [id number] [address] [place] [address], [place] [address] December, [facility] [address] [id number] [address] [place] [address], [place] [address] December, [facility] [address] [id number] [address] [place] [address], [place] [address] Nov, [facility] [address] [id number] [address] [place] [address], [place] [address] Nov, [facility] [address] [id number] [address] [place] [address], [place] [address] Nov, [facility] [address] [id number] [address] [place] [address], [place] [address] Nov, [facility] [address] [id number] [address] [place] [address], [place] [address] Nov, [facility] [address] [id number] [address] [place] [address], [place] [address] Nov, [facility] [address] [id number] [address] [place] [address], [place] [address] Nov, [facility] [address] [id number] [address] [place] [address], [place] [address] Nov, [facility] [address] [id number] [address] [place] [address], [place] [address] Nov, [facility] [address] [id number] [address] [place] [address], [place] [address] Nov, [facility] [address] [id number] [address] [place] [address], [place] [address] Oct, [facility] [address] [id number] [address] [place] [address], [place] [address] Oct, [facility] [address] [id number] [address] [place] [address], [place] [address] Sep, [facility] [address] [id number] [address] [place] [address], [place] [address] Sep, [facility] [address] [id number] [address] [place] [address], [place] [address] Aug, [facility] [address] [id number] [address] [place] [address], [place] [address] 17 Aug, 2013 [facility] [address] [id number] [address] [place] [address], [place] [address] Aug, [facility] [address] [id number] [address] [place] [address], [place] [address] 16 Aug, 2013 [facility] [address] [id number] [address] [place] [address], [place] [address] Jul, [facility] [address] [id number] [address] [place] [address], [place] [address] Jul, [facility] [address] [id number] [address] [place] [address], [place] [address] Jul, [facility] [address] [id number] [address] [place] [address], [place] [address] Jul, [facility] [address] [id number] [address] [place] [address], [place] [address] Jun, [facility] [address] [id number] [address] [place] [address], [place] [address] Jun, [facility] [address] [id number] [address] [place] [address], [place] [address] May, [facility] [address] [id number] [address] [place] [address], [place] [address] May, [facility] [address] [id number] [address] [place] [address], [place] [address] May, [facility] [address] [id number] [address] [place] [address], [place] [address] May, [facility] [address] [id number] [address] [place] [address], [place] [address] May, [facility] [address] [id number] [address] [place] [address], [place] [address] May, [facility] [address] [id number] [address] [place] [address], [place] [address] 30 Apr, 2013 [facility] [address] [id number] [address] [place] [address], [place] [address] 23 Apr, 2013 [facility] [address] [id number] [address] [place] [address], [place] [address] 03 Apr, 2013 [facility] [address] [id number] [address] [place] [address], [place] [address] Feb, [facility] [address] [id number] [address] [place] [address], [place] [address] Jan, [facility] [address] [id number] [address] [place] [address], [place] [address] Jan, [facility] [address] [id number] [address] [place] [address], [place] [address] 17 Jan, 2013 [facility] [address] [id number] [address] [place] [address], [place] [address] Jan, [facility] [address] [id number] [address] [place] [address], [place] [address] December, [facility] [address] [id number] [address] [place] [address], [place] [address] December, [facility] [address] [id number] [address] [place] [address], [place] [address] 24 Nov, 2012 [facility] [address] [id number] [address] [place] [address], [place] [address] Nov, [facility] [address] [id number] [address] [place] [address], [place] [address] Nov, [facility] [address] [id number] [address] [place] [address], [place] [address] Nov, [facility] [address] [id number] [address] [place] [address], [place] [address] Nov, [facility] [address] [id number] [address] [place] [address], [place] [address] Nov, [facility] [address] [id number] [address] [place] [address], [place] [address] 03 Nov, 2012 [facility] [address] [id number] [address] [place] [address], [place] [address] 27 Oct, 2012 [facility] [address] [id number] [address] [place] [address], [place] [address] 18 Oct, 2012 [facility] [address] [id number] [address] [place] [address], [place] [address] 14 Oct, 2012 [facility] [address] [id number] [address] [place] [address], [place] [address] 13 Oct, 2012 [facility] [address] [id number] [address] [place] [address], [place] [address] 12 Oct, 2012 [facility] [address] [id number] [address] [place] [address], [place] [address] 11 Oct, 2012 [facility] [address] [id number] [address] [place] [address], [place] [address] 08 Oct, 2012 [facility] [address] [id number] [address] [place] [address], [place] [address] 20 Sep, 2012 [facility] [address] [id number] [address] [place] [address], [place] [address] Sep, [facility] [address] [id number] [address] [place] [address], [place] [address] Aug, [facility] [address] [id number] [address] [place] [address], [place] [address] Aug, [facility] [address] [id number] [address] [place] [address], [place] [address] Jul, [facility] [address] [id number] [address] [place] [address], [place] [address] Jul, [facility] [address] [id number] [address] [place] [address], [place] [address] Jul, [facility] [address] [id number] [address] [place] [address], [place] [address] Jul, [facility] [address] [facility] [id number] [address] [place] [address] Jul, [facility] [address] [facility] [id number] [address] [place] [address] Jul, [facility] [address] [facility] [id number] [address] [place] [address] Jul, [facility] [address] [facility] [id number] [address] [place] [address] Jul, [facility] [address] [facility] [id number] [address] [place] [address] Jun, [facility] [address] [facility] [id number] [address] [place] [address] Jun, IMMUNIZATIONS No Known Immunizations SOCIAL HISTORY [...]
--- OUTSIDE RECORDS SUMMARY | 2020-02-11 03:10 | XMS REPORT ---
Author Author АНДРЕЙ Madelineshawn LEONG Organization [facility] Address [address] [place] [address] Care Team Providers Care Blanket Washer Name Role Phone KWESIKennedy DANG Unavailable PROBLEMS Type Condition ICD9-CM Code [id number] Code Onset Dates Condition S tatus SNOMED Code Problem Numbness and tingling in hands R20.2 Active 484983777 Problem History of abnormal cervical Pap smear Z87.898 Active 508034359 Problem Stasis dermatitis of both legs I87.2 Active 28052878 Problem Pre-diabetes R73.09 Active 9763915 02 Problem Morbid obesity due to excess calories E66.01 Active 470696802 Problem GERD (gastroesophageal reflux disease) K21.9 Active 274336182 Problem Mood disorder F39 Active 421151 05 Problem Chronic pain G89.29 Active 7283710 1 Problem BMI 45.0-49.9, adult Z68.42 Active 130385412 Problem Essential hypertension I10 Active 06181698 Problem Primary insomnia F51.01 Active 397 2004 Problem Chronic recurrent major depressive disorder F33.9 Active 9910508 ALLERGIES No Information ENCOUNTERS Encounter Location Date Diagnosis [place] [address] [address] [facility] [id number] [address] [place] [id number] December, [place] [id number] [facility] [id number] [address] [place] [id number] Nov, BMI 45.0-49.9, adult Z68.42 and Chronic pain G89.29 [facility] [address] [place] [id number] [address] [place] [id number] Oct, BMI 45.0-49.9, adult Z68.42 and Chronic pain G89.29 [place] [address] [address] [facility] [id number] [address] [place] [id number] Sep, BMI 45.0-49.9, adult Z68.42 and Chronic pain G89.29 [place] [address] [address] [facility] [id number] [address] [place] [id number] 10 Sep, 2019 Essential hypertension I10 [place] [address] [address] [facility] [id number] [address] [place] [id number] 05 Sep, 2019 Tinea corporis B35.4 [place] [address] [address] [facility] [id number] [address] [place] [id number] 20 Aug, 2019 Acute non-recurrent maxillar y sinusitis J01.00 and Tinea corporis B35.4 [place] [address] [address] [place] [id number] [address] [place] [id number] 14 Aug, 2019 BMI 45.0-49.9, adult Z68.42 and Chronic pain G89.29 [place] [address] [address] [place] [id number] [address] [place] [id number] Jul, BMI 45.0-49.9, adult Z68.42 and Chronic pain G89.29 [place] [address] [place] [id number] [address] [place] [id number] Jul, Pre-diabetes R73.09 [place] [address] [address] [place] [id number] [address] [place] [id number] Jun, BMI 45.0-49.9, adult Z68.42 and Chronic pain G89.29 [place] [address] [address] [place] [id number] [address] [place] [id number] Jun, Acute non-recurrent maxillar y sinusitis J01.00 [place] [address] [address] [facility] [id number] [address] [place] [id number] May, Chronic pain G89.29 and BMI 45.0-49.9, adult Z68.42 [place] [address] [address] [place] [id number] [address] [place] [id number] Apr, Chronic pain G89.29 and BMI 45.0-49.9, adult Z68.42 [facility] [address] [facility] [id number] [address] [place] [id number] Apr, Mood disorder F39 [facility] [address] [facility] [id number] [address] [place] [id number] Mar, Chronic pain G89.29 and BMI 45.0-49.9, adult Z68.42 [facility] [address] [place] [id number] [address] [place] [id number] Mar, Morbid obesity E66.01 ; Health Consultant david recurrent major depressive disorder F33.9 ; Morbid obesity due to excess calories E66.01 and High risk medication use Z79.899 [place] [address] [address] [place] [id number] [address] [place] [id number] Mar, Chronic pain G89.29 and BMI 45.0-49.9, adult Z68.42 [place] [id number] [place] [id number] Feb, [facility] [address] [place] [id number] [address] [place] [id number] Feb, Chronic pain G89.29 and BMI 45.0-49.9, adult Z68.42 [facility] [address] [place] [id number] [address] [place] [id number] Jan, [place] [address] [address] [place] [id number] [address] [place] [id number] Jan, Chronic pain G89.29 and BMI 45.0-49.9, adult Z68.42 [facility] [address] [facility] [id number] [address] [place] [id number] Jan, [facility] [address] [place] [id number] [address] [place] [id number] December, Chronic pain G89.29 and BMI 45.0-49.9, adult Z68.42 [facility] [address] [place] [id number] [address] [place] [id number] Nov, Morbid obesity E66.01 and Ce llulitis of leg, left L03.116 [place] [id number] [facility] [id number] [address] [place] [id number] 15 Nov, 2018 Cellulitis of left lower ext remity L03.116 and Morbid obesity E66.01 [facility] [address] [facility] [id number] [address] [place] [id number] Nov, [facility] [address] [place] [id number] [place] [id number] Nov, Morbid obesity E66.01 and Ce llulitis of left lower extremity L03.116 [place] [address] [address] [place] [id number] [place] [id number] Nov, Chronic pain G89.29 and BMI 45.0-49.9, adult Z68.42 [place] [address] [address] Oct, BMI 45.0-49.9, adult Z68.42 and Chronic pain G89.29 [place] [address] [address] 14 Sep, 2018 BMI 45.0-49.9, adult Z68.42 and Chronic pain G89.29 [place] [address] [address] [place] [id number] [address] [place] [id number] 05 Sep, 2018 BMI 45.0-49.9, adult Z68.42 and Essential hypertension I10 [place] [address] [address] [place] [id number] [address] [place] [id number] Aug, BMI 45.0-49.9, adult Z68.42 ; Chronic pain G89.29 ; Essential hypertension I10 and Primary insomnia F51.01 [place] [address] [address] [place] [id number] [address] [place] [id number] Aug, Chronic pain G89.29 [place] [address] [address] Jul, Chronic pain G89.29 [facility] [address] [id number] [address] [place] [id number] Jun, Chronic pain G89.29 [facility] [address] [facility] [id number] [address] [place] [id number] May, Chronic pain G89.29 [facility] [address] [facility] [id number] [address] [place] [id number] May, BMI 40.0-44.9, adult Z68.41 ; Other chronic pain G89.29 ; Pain in right hip M25.551 and Acute pain of left knee M25.562 [facility] [address] [id number] [address] [place] [id number] May, Chronic pain G89.29 [facility] [address] [facility] [id number] [address] [place] [id number] Apr, Chronic pain G89.29 [facility] [address] [id number] [address] [place] [id number] Mar, Poison josep L23.7 [facility] [address] [facility] [id number] [address] [place] [id number] Mar, Chronic pain G89.29 [facility] [address] [facility] [id number] [address] [place] [id number] Feb, Chronic pain G89.29 [facility] [address] [facility] [id number] [address] [place] [id number] Feb, Poison josep L23.7 [facility] [address] [facility] [id number] [address] [place] [id number] Jan, Chronic pain G89.29 [facility] [address] [facility] [id number] [address] [place] [id number] December, Chronic pain G89.29 [facility] [address] [facility] [id number] [address] [place] [id number] Nov, Long-term use of high-risk m edication Z79.899 [facility] [address] [facility] [id number] [place] [id number] Nov, Chronic pain G89.29 [facility] [address] [facility] [id number] [address] [place] [id number] Oct, Chronic pain G89.29 ; Pre-di abetes R73.09 ; Long-term use of high- risk medication Z79.899 ; Allergic rhinitis, unspecified seasonality, unspecified trigger J30.9 ; BMI 45.0-49.9, adult Z68.42 and Essential hypertension I10 [place] [address] [address] Oct, Chronic pain G89.29 [place] [address] [place] [id number] [place] [phone] Sep, Chronic pain G89.29 [place] [address] [address] Aug, Chronic pain G89.29 [place] [address] [address] Jul, [place] [address] [address] Jul, [place] [address] [address] Jun, Chronic pain G89.29 ; BMI 45 .0-49.9, adult Z68.42 ; Pre-diabetes R73.09 ; Essential hypertension I10 ; GERD (gastroesophageal reflux disease) K21.9 ; Yeast dermatitis B37.2 ; Dysuria R30.0 ; Acute non-recurrent maxillary sinusitis J01.00 and Acute cystitis with hematuria N30.01 [place] [address] [address] [place] [id number] [address] [place] [id number] 13 Jun, 2017 Chronic pain G89.29 [place] [address] [address] Jun, Acute non-recurrent maxillar y sinusitis J01.00 and BMI 45.0-49.9, adult Z68.42 [place] [address] [place] [id number] [address] [place] [id number] May, [place] [address] [place] [id number] [address] [place] [phone] May, Chronic pain G89.29 [place] [address] [place] [id number] [address] [place] [phone] May, [place] [address] [place] [id number] [address] [place] [id number] Apr, Chronic pain G89.29 [place] [address] [place] [id number] [address] [place] [phone] Mar, [place] [address] [address] Mar, Essential hypertension I10 a nd Pre-diabetes R73.09 [place] [address] [place] [id number] [place] [id number] Mar, Chronic pain G89.29 ; Essent ial hypertension I10 ; Depressive disorder, not elsewhere classified F32.9 ; GERD (gastroesophageal reflux disease) K21.9 ; Pre-diabetes R73.09 ; Stasis dermatitis of both legs I87.2 and Acute non-recurrent maxillary sinusitis J01.00 [place] [address] [place] [id number] [address] [place] [id number] Mar, Chronic pain G89.29 [place] [address] [place] [id number] [address] [place] [id number] Mar, Achilles tendinitis of right lower extremity M76.61 and Tinea corporis B35.4 [place] [address] [place] [id number] [address] [place] [id number] Feb, Yeast dermatitis B37.2 [place] [address] [place] [id number] [address] [place] [id number] 14 Feb, 2017 Candidal intertrigo B37.2 an d Acute right ankle pain M25.571 [place] [address] [place] [id number] [address] [place] [id number] 12 Feb, 2017 Chronic pain G89.29 [place] [address] [place] [id number] [address] [place] [id number] Jan, [place] [address] [place] [id number] [place] [id number] Jan, Chronic pain G89.29 [place] [address] [place] [id number] [address] [place] [id number] December, Chronic pain G89.29 ; Essent ial hypertension I10 ; Depressive disorder, not elsewhere classified F32.9 ; GERD (gastroesophageal reflux disease) K21.9 ; Pre-diabetes R73.09 ; Screening breast examination Z12.39 ; Stasis dermatitis of both legs I87.2 and Yeast dermatitis B37.2 [place] [address] [place] [id number] [address] [place] [id number] Nov, Chronic pain G89.29 [place] [address] [place] [id number] [address] [place] [id number] Nov, Cellulitis of left lower ext remity L03.116 [place] [address] [place] [id number] [address] [place] [id number] Nov, Cellulitis of left lower ext remity L03.116 [place] [address] [address] [facility] [id number] [address] [place] [id number] Oct, Yeast dermatitis B37.2 [place] [address] [place] [id number] [address] [place] [id number] Oct, Chronic pain G89.29 [place] [address] [place] [id number] [address] [place] [id number] Sep, Chronic pain G89.29 ; Essent ial hypertension I10 ; Depressive disorder, not elsewhere classified F32.9 and GERD (gastroesophageal reflux disease) K21.9 [facility] [address] [address] Aug, Chronic pain G89.29 [facility] [address] [address] Aug, Cough R05 ; Rash R21 and Vinay h and nonspecific skin eruption R21 [place] [address] [address] Jul, Chronic pain G89.29 [place] [address] [address] Jun, Chronic pain G89.29 ; Bronch itis J40 ; Essential hypertension I10 ; Depressive disorder, not elsewhere classified F32.9 ; GERD (gastroesophageal reflux disease) K21.9 and History of long-term use of multiple prescription drugs Z92.29 [place] [address] [address] Jun, Bronchitis J40 ; Chills R68. 83 and Sore throat J02.9 [place] [address] [address] May, [facility] [address] [address] Apr, [facility] [address] [address] Apr, Acute mucoid otitis media of both ears H65.113 [facility] [address] [address] Apr, Yeast dermatitis B37.2 and H ematuria R31.9 [facility] [address] [address] Mar, [place] [address] [address] Mar, [place] [address] [place] [id number] [address] [place] [address] Feb, Left anterior knee pain M25. [address] [address] Feb, Chronic pain G89.29 ; Essent ial hypertension I10 ; Depressive disorder, not elsewhere classified F32.9 ; GERD (gastroesophageal reflux disease) K21.9 and History of long-term use of multiple prescription drugs Z92.29 [place] [address] [address] Jan, [address] [address] Jan, Well woman exam Z01.419 ; BM I 45.0-49.9, adult Z68.42 ; Family history of diabetes mellitus Z83.3 and Chronic pain G89.[address] [address] December, Chronic pain G89.29 ; Essent ial hypertension I10 ; Depressive disorder, not elsewhere classified F32.9 ; GERD (gastroesophageal reflux disease) K21.9 ; 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 ; History of long-term use of multiple prescription drugs Z92.29 and Obesity E66.[address] [address] Oct, [address] [address] Oct, Well woman exam Z01.419 ; BM [...] smear Z12.4 and No natural teeth K00.0 [facility] [address] [facility] [id number] [address] [place] [phone] Oct, [facility] [address] [place] [id number] [address] [place] [address] Sep, Chronic pain G89.29 ; Essent ial hypertension I10 ; GERD (gastroesophageal reflux disease) K21.9 ; 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 ; Skin infection L08.9 and History of long-term use of multiple prescription drugs Z92.29 [place] [address] [facility] [id number] [address] [place] [phone] Aug, [place] [address] [place] [id number] [place] [phone] Jul, [place] [address] [place] [id number] [place] [phone] Jul, [place] [address] [place] [id number] [address] [place] [id number] Jul, Upper respiratory infection J06.9 [place] [address] [place] [id number] [address] [place] [id number] Jul, Depressive disorder, not els ewhere classified F32.9 [place] [address] [place] [id number] [address] [place] [address] Jul, Chronic pain 338.29 [place] [address] [place] [id number] [address] [place] [address] Jul, Chronic pain G89.29 [place] [address] [place] [id number] [address] [place] [phone] Jun, Poison josep L23.7 [place] [address] [place] [id number] [address] [place] [id number] Jun, Allergic contact dermatitis due to plants, except food L23.7 [place] [address] [facility] [id number] [address] [place] [id number] Jun, Essential hypertension I10 ; Chronic pain G89.29 ; GERD (gastroesophageal reflux disease) K21.9 and Numbness and tingling in hands R20.2 [place] [address] [address] May, [place] [address] [address] Apr, [place] [address] [address] Mar, [place] [address] [address] Feb, Abdominal pain, left lateral 789.09 and Constipation 564.00 [place] [address] [address] Feb, Depressive disorder, not els ewhere classified 311 and No condition on [place] II V71.[address] [address] Feb, Spider bite 989.5 and Depres homar [address] [address] Feb, [address] [address] Feb, Chronic pain 338.29 ; Arthro zonia 716.90 and GERD (gastroesophageal reflux disease) 530.81 [place] [address] [address] Jan, Insect bites 919.4 [place] [address] [address] Jan, [address] [address] December, Skin infection, bacterial 68 6.9 ; Conjunctivitis 372.30 and Insect bites 919.[address] [address] December, Chronic pain 338.29 ; Arthro zonia 716.90 ; Skin infection, bacterial 686.9 and Conjunctivitis 372.30 [facility] [address] [id number] [address] [place] [id number] December, [facility] [address] [id number] [address] [place] [phone] Nov, [facility] [address] [id number] [address] [place] [phone] Nov, [facility] [address] [id number] [address] [place] [id number] Oct, [facility] [address] [id number] [address] [place] [phone] Oct, [facility] [address] [id number] [address] [place] [phone] Sep, [facility] [address] [id number] [address] [place] [id number] Sep, [facility] [address] [id number] [address] [place] [phone] Aug, [facility] [address] [id number] [address] [place] [phone] Aug, [facility] [address] [id number] [address] [place] [phone] Aug, [facility] [address] [id number] [address] [place] [id number] Aug, [facility] [address] [id number] [address] [place] [id number] Jul, [facility] [address] [id number] [address] [place] [id number] Jul, [facility] [address] [id number] [address] [place] [id number] Jul, [facility] [address] [id number] [address] [place] [address], [place] [address] 15 Jul, 2014 [facility] [address] [id number] [address] [place] [address], [place] [address] 15 Jul, 2014 [facility] [address] [id number] [address] [place] [address], [place] [address] 15 Jul, 2014 [facility] [address] [id number] [address] [place] [address], [place] [id number] 15 Jul, 2014 [facility] [address] [id number] [address] [place] [address], [place] [id number] 12 Jul, 2014 [facility] [address] [id number] [address] [place] [address], [place] [id number] Jul, [facility] [address] [id number] [address] [place] [address], [place] [id number] Jun, [facility] [address] [id number] [address] [place] [address], [place] [id number] Jun, [facility] [address] [id number] [address] [place] [address], [place] [id number] Jun, [facility] [address] [id number] [address] [place] [address], [place] [id number] Jun, [facility] [address] [id number] [address] [place] [address], [place] [id number] Jun, [facility] [address] [id number] [address] [place] [address], [place] [id number] Jun, [facility] [address] [id number] [address] [place] [address], [place] [id number] Jun, [facility] [address] [id number] [address] [place] [address], [place] [id number] Jun, [facility] [address] [id number] [address] [place] [address], [place] [id number] May, [facility] [address] [id number] [address] [place] [address], [place] [id number] May, [facility] [address] [id number] [address] [place] [address], [place] [id number] 16 May, 2014 [facility] [address] [id number] [address] [place] [address], [place] [id number] May, [facility] [address] [id number] [address] [place] [address], [place] [id number] May, [facility] [address] [id number] [address] [place] [address], [place] [id number] Apr, [facility] [address] [id number] [address] [place] [address], [place] [id number] Apr, [facility] [address] [id number] [address] [place] [address], [place] [id number] Apr, [facility] [address] [id number] [address] [place] [address], [place] [id number] Apr, [facility] [address] [id number] [address] [place] [address], [place] [id number] Apr, [facility] [address] [id number] [address] [place] [address], [place] [id number] Apr, [facility] [address] [id number] [address] [place] [address], [place] [id number] Apr, [facility] [address] [id number] [address] [place] [address], [place] [id number] Apr, [facility] [address] [id number] 75 [place] [address], [place] [id number] Apr, [facility] [address] [id number] [address] [place] [address], [place] [id number] Apr, [facility] [address] [id number] [address] [place] [address], [place] [address] Mar, [facility] [address] [id number] [address] [place] [address], [place] [address] Mar, [facility] [address] [id number] [address] [place] [id number] Mar, [facility] [address] [id number] [address] [place] [address], [place] [id number] Mar, [facility] [address] [id number] [address] [place] [address], [place] [id number] Mar, [facility] [address] [id number] [address] [place] [address], [place] [id number] Mar, [facility] [address] [id number] [address] [place] [address], [place] [id number] Feb, [facility] [address] [id number] [address] [place] [address], [place] [id number] Feb, [facility] [address] [id number] [address] [place] [address], [place] [id number] Jan, [facility] [address] [id number] [address] [place] [address], [place] [address] Jan, [facility] [address] [id number] [address] [place] [address], [place] [id number] Jan, [facility] [address] [id number] [address] [place] [address], [place] [id number] Jan, [facility] [address] [id number] [address] [place] [address], [place] [id number] December, [facility] [address] [id number] [address] [place] [address], [place] [id number] December, [facility] [address] [id number] [address] [place] [address], [place] [id number] December, [facility] [address] [id number] [address] [place] [address], [place] [id number] December, [facility] [address] [id number] [address] [place] [address], [place] [id number] December, [facility] [address] [id number] [address] [place] [address], [place] [id number] December, [facility] [address] [id number] [facility] [place] [id number] December, [facility] [address] [id number] [address] [place] [address], [place] [address] December, [facility] [address] [id number] [address] [place] [address], [place] [id number] December, [facility] [address] [id number] [address] [place] [address], [place] [id number] Nov, [facility] [address] [id number] [address] [place] [address], [place] [id number] Nov, [facility] [address] [id number] [address] [place] [address], [place] [id number] Nov, [facility] [address] [id number] [address] [place] [address], [place] [id number] Nov, [facility] [address] [id number] [address] [place] [address], [place] [id number] Nov, [facility] [address] [id number] [address] [place] [address], [place] [id number] Nov, [facility] [address] [id number] [address] [place] [address], [place] [address] Nov, [facility] [address] [id number] [address] [place] [address], [place] [id number] Nov, [facility] [address] [id number] [address] [place] [address], [place] [id number] Nov, [facility] [address] [id number] [address] [place] [address], [place] [id number] Nov, [facility] [address] [id number] [address] [place] [address], [place] [id number] Oct, [facility] [address] [id number] [address] [place] [address], [place] [address] Oct, [facility] [address] [id number] [address] [place] [address], [place] [address] Sep, [facility] [address] [id number] [address] [place] [address], [place] [id number] Sep, [facility] [address] [id number] [address] [place] [address], [place] [id number] Aug, [facility] [address] [id number] [address] [place] [address], [place] [id number] Aug, [facility] [address] [id number] [address] [place] [address], [place] [id number] Aug, [facility] [address] [id number] [address] [place] [address], [place] [id number] Aug, [facility] [address] [id number] [address] [place] [address], [place] [id number] Jul, [facility] [address] [id number] [address] [place] [address], [place] [address] Jul, [facility] [address] [id number] [address] [place] [address], [place] [id number] Jul, [facility] [address] [id number] [address] [place] [address], [place] [id number] Jul, [facility] [address] [id number] [address] [place] [address], [place] [id number] Jun, [facility] [address] [id number] [address] [place] [address], [place] [address] Jun, [facility] [address] [id number] [address] [place] [address], [place] [address] May, [facility] [address] [id number] [address] [place] [address], [place] [address] May, [facility] [address] [id number] [address] [place] [address], [place] [address] May, [facility] [address] [id number] [address] [place] [address], [place] [address] May, [facility] [address] [id number] [address] [place] [address], [place] [address] May, [facility] [address] [id number] [address] [place] [address], [place] [id number] May, [facility] [address] [id number] [address] [place] [address], [place] [id number] 30 Apr, 2013 [facility] [address] [id number] [address] [place] [address], [place] [id number] Apr, [facility] [address] [id number] [address] [place] [address], [place] [id number] Apr, [facility] [address] [id number] [address] [place] [address], [place] [id number] Feb, [facility] [address] [id number] [address] [place] [address], [place] [id number] Jan, [facility] [address] [id number] [address] [place] [address], [place] [address] Jan, [facility] [address] [id number] [address] [place] [address], [place] [id number] 17 Jan, 2013 [facility] [address] [id number] [address] [place] [address], [place] [address] Jan, [facility] [address] [id number] [address] [place] [address], [place] [id number] December, [facility] [address] [id number] [address] [place] [address], [place] [address] December, [facility] [address] [id number] [address] [place] [address], [place] [id number] 24 Nov, 2012 [facility] [address] [id number] [address] [place] [address], [place] [id number] Nov, [facility] [address] [id number] [address] [place] [address], [place] [address] Nov, [facility] [address] [id number] [address] [place] [address], [place] [address] Nov, [facility] [address] [id number] [address] [place] [address], [place] [id number] 08 Nov, 2012 [facility] [address] [id number] [address] [place] [address], [place] [id number] 08 Nov, 2012 [facility] [address] [id number] [address] [place] [address], [place] [id number] 03 Nov, 2012 [facility] [address] [id number] [address] [place] [address], [place] [id number] 27 Oct, 2012 [facility] [address] [id number] [address] [place] [address], [place] [id number] 18 Oct, 2012 [facility] [address] [id number] [address] [place] [address], [place] [id number] 14 Oct, 2012 [facility] [address] [id number] [address] [place] [address], [place] [id number] 13 Oct, 2012 [facility] [address] [id number] [address] [place] [address], [place] [id number] 12 Oct, 2012 [facility] [address] [id number] [address] [place] [address], [place] [address] Oct, [facility] [address] [id number] [address] [place] [address], [place] [id number] 08 Oct, 2012 [facility] [address] [id number] [address] [place] [address], [place] [address] Sep, [facility] [address] [id number] [address] [place] [address], [place] [id number] Sep, [facility] [address] [id number] [address] [place] [address], [place] [address] Aug, [facility] [address] [id number] [address] [place] [address], [place] [id number] Aug, [facility] [address] [id number] [address] [place] [address], [place] [id number] Jul, [facility] [address] [id number] [address] [place] [id number] Jul, [facility] [address] [facility] [id number] [address] [place] [id number] Jul, [facility] [address] [facility] [id number] [address] [place] [id number] Jul, [facility] [address] [facility] [id number] [address] [place] [id number] Jul, [facility] [address] [facility] [id number] [address] [place] [id number] Jul, [facility] [address] [facility] [id number] [address] [place] [id number] Jul, [facility] [address] [facility] [id number] [address] [place] [id number] Jul, [facility] [address] [facility] [id number] [address] [place] [id number] Jun, [facility] [address] [facility] [id number] [address] [place] [id number] Jun, IMMUNIZATIONS No Known Immunizations SOCIAL HISTORY Never Assessed REASON FOR VISIT PLAN OF CARE VITAL SIGNS Height 62 in 2014-03-11 Weight 250 lbs 2014-03-11 Temperature 97.1 degrees Fahrenheit 2014-03-11 Heart Rate 90 bpm 2014-03-11 Respiratory Rate 16 2014-03-11 Blood pressure systolic 148 mmHg 2014-03-11 Blood pressure diastolic 88 mmHg 2014-03-11 MEDICATIONS Unknown Medications RESULTS No Results PROCEDURES Procedure Date Ordered Result Body Site THER/PROPH/DIAG INJ, SC/IM Mar 11, 2014 INJ KETOROLAC TROMETHAMINE 15 MG Mar 11, 2014 INSTRUCTIONS MEDICATIONS ADMINISTERED No Known Medications MEDICAL [...] -- total 11/2012 Hospitalization History ER- in [place] due to left knee 8
--- OUTSIDE RECORDS SUMMARY | 2020-02-11 03:11 | XMS REPORT ---
Author Author Madeline Magdaleno Doctor Organization [facility] Address Unknown Phone Unavailable Care Team Providers Care Site Lead Name Role Phone Migration, Doctor Unavailable Unavailable PROBLEMS Type Condition ICD9-CM Code PDC41-QR Code Onset Dates Condition S tatus SNOMED Code Problem Numbness and tingling in hands R20.2 Active 016933939 Problem History of abnormal cervical Pap smear Z87.898 Active 467965969 Problem Stasis dermatitis of both legs I87.2 Active 04826227 Problem Pre-diabetes R73.09 Active 8809518 02 Problem Morbid obesity due to excess calories E66.01 Active 100677607 Problem GERD (gastroesophageal reflux disease) K21.9 Active 580631635 Problem Mood disorder F39 Active 473117 05 Problem Chronic pain G89.29 Active 1027568 1 Problem BMI 45.0-49.9, adult Z68.42 Active 512543034 Problem Essential hypertension I10 Active 33544715 Problem Primary insomnia F51.01 Active 397 2004 Problem Chronic recurrent major depressive disorder F33.9 Active 9707993 ALLERGIES No Information ENCOUNTERS Encounter Location Date Diagnosis [place] [address] [address] 05 Oct, 2019 [place] [address] [address] 10 Sep, 2019 BMI 45.0-49.9, adult Z68.42 and Chronic pain G89.29 [place] [address] [address] 10 Sep, 2019 Essential hypertension I10 [place] [address] [address] 05 Sep, 2019 Tinea corporis B35.4 [place] [address] [address] Aug, Acute non-recurrent maxillary sinusitis J01.00 and Tinea corporis B35.4 [place] [address] [address] 14 Aug, 2019 BMI 45.0-49.9, adult Z68.42 and Chronic pain G89.29 [place] [address] [address] 17 Jul, 2019 BMI 45.0-49.9, adult Z68.42 and Chronic pain G89.29 [place] [address] [address] Jul, Pre-diabetes R73.[address] [address] Jun, BMI 45.0-49.9, adult Z68.42 and Chronic pain G89.29 [place] [address] [address] Jun, Acute non-recurrent maxillary sinusitis J01.00 [place] [address] [address] May, Chronic pain G89.29 and BMI 45.0-49.9, a dult Z68.42 [place] [address] [address] Apr, Chronic pain G89.29 and BMI 45.0-49.9, a dult Z68.42 [place] [address] [address] Apr, Mood disorder F39 [place] [address] [address] Mar, Chronic pain G89.29 and BMI 45.0-49.9, a dult Z68.42 [place] [address] [address] Mar, Morbid obesity E66.01 ; Chronic recurren t major depressive disorder F33.9 ; Morbid obesity due to excess calories E66.01 and High risk medication use Z79.899 [place] [address] [address] Mar, Chronic pain G89.29 and BMI 45.0-49.9, a dult Z68.42 [place] [address] [address] Feb, [place] [address] [address] Feb, Chronic pain G89.29 and BMI 45.0-49.9, a dult Z68.42 [place] [address] [address] Jan, [place] [address] [address] Jan, Chronic pain G89.29 and BMI 45.0-49.9, a dult Z68.42 [place] [address] [address] Jan, [place] [address] [address] December, Chronic pain G89.29 and BMI 45.0-49.9, a dult Z68.42 [place] [address] [address] Nov, Morbid obesity E66.01 and Cellulitis of leg, left L03.116 [place] [address] [address] 15 Nov, 2018 Cellulitis of left lower extremity L03.1 16 and Morbid obesity E66.01 [facility] [address] [facility] [id number] [address] [place] [address] Nov, [place] [address] [address] Nov, Morbid obesity E66.01 and Cellulitis of left lower extremity L03.116 [place] [address] [address] Nov, Chronic pain G89.29 and BMI 45.0-49.9, a dult Z68.42 [place] [address] [address] Oct, BMI 45.0-49.9, adult Z68.42 and Chronic pain G89.29 [place] [address] [address] 14 Sep, 2018 BMI 45.0-49.9, adult Z68.42 and Chronic pain G89.29 [place] [address] [address] Sep, BMI 45.0-49.9, adult Z68.42 and Essentia l hypertension I10 [place] [address] [address] Aug, BMI 45.0-49.9, adult Z68.42 ; Chronic pa in G89.29 ; Essential hypertension I10 and Primary insomnia F51.01 [place] [address] [address] Aug, Chronic pain G89.29 [place] [address] [address] Jul, Chronic pain G89.29 [place] [address] [address] Jun, Chronic pain G89.29 [place] [address] [address] May, Chronic pain G89.29 [place] [address] [address] May, BMI 40.0-44.9, adult Z68.41 ; 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 ; Pain in right hip M25.551 and Acute pain of left knee M25.562 [place] [address] [address] May, Chronic pain G89.29 [facility] [address] [address] Apr, Chronic pain G89.29 [facility] [address] [address] Mar, Poison josep L23.7 [facility] [address] [address] Mar, Chronic pain G89.29 [facility] [address] [address] Feb, Chronic pain G89.29 [place] [address] [address] Feb, Poison josep L23.7 [place] [address] [address] Jan, Chronic pain G89.29 [place] [address] [address] December, Chronic pain G89.29 [place] [address] [address] Nov, Long-term use of high-risk medication Z7 9.899 [place] [address] [address] Nov, Chronic pain G89.29 [place] [address] [address] Oct, Chronic pain G89.29 ; Pre-diabetes R73.0 9 ; Long-term use of high-risk medication Z79.899 ; Allergic rhinitis, unspecified seasonality, unspecified trigger J30.9 ; BMI 45.0-49.9, adult Z68.42 and Essential hypertension I10 [place] [address] [address] Oct, Chronic pain G89.29 [place] [address] [address] Sep, Chronic pain G89.29 [facility] [address] [address] Aug, Chronic pain G89.29 [facility] [address] [address] Jul, [facility] [address] [address] Jul, [facility] [address] [address] Jun, Chronic pain G89.29 ; BMI 45.0-49.9, ambreen lt Z68.42 ; Pre-diabetes R73.09 ; Essential hypertension I10 ; GERD (gastroesophageal reflux disease) K21.9 ; Yeast dermatitis B37.2 ; Dysuria R30.0 ; Acute non-recurrent maxillary sinusitis J01.00 and Acute cystitis with hematuria N30.01 [place] [address] [address] Jun, Chronic pain G89.29 [place] [address] [address] Jun, Acute non-recurrent maxillary sinusitis J01.00 and BMI 45.0-49.9, adult Z68.42 [place] [address] [address] May, [place] [address] [address] May, Chronic pain G89.29 [facility] [address] [address] May, [place] [address] [address] Apr, Chronic pain G89.29 [place] [address] [address] Mar, [place] [address] [address] Mar, Essential hypertension I10 and Pre-diabe sondra R73.09 [place] [address] [address] 15 Mar, 2017 Chronic pain G89.29 ; Essential hyperten homar I10 ; Depressive disorder, not elsewhere classified F32.9 ; GERD (gastroesophageal reflux disease) K21.9 ; Pre-diabetes R73.09 ; Stasis dermatitis of both legs I87.2 and Acute non-recurrent maxillary sinusitis J01.00 [place] [address] [address] 11 Mar, 2017 Chronic pain G89.[address] [address] 07 Mar, 2017 Achilles tendinitis of right lower extre mity M76.61 and Tinea corporis B35.[address] [address] 17 Feb, 2017 Yeast dermatitis B37.[address] [address] 14 Feb, 2017 Candidal intertrigo B37.2 and Acute righ t ankle pain M25.[address] [address] 12 Feb, 2017 Chronic pain G89.[address] [address] 16 Jan, [address] [address] Jan, Chronic pain G89.[address] [address] December, Chronic pain G89.29 ; Essential hyperten homar I10 ; Depressive disorder, not elsewhere classified F32.9 ; GERD (gastroesophageal reflux disease) K21.9 ; Pre-diabetes R73.09 ; Screening breast examination Z12.39 ; Stasis dermatitis of both legs I87.2 and Yeast dermatitis B37.[address] [place] [address] Nov, Chronic pain G89.29 [place] [address] [address] Nov, Cellulitis of left lower extremity L03.1 16 [place] [address] [address] 17 Nov, 2016 Cellulitis of left lower extremity L03.1 16 [place] [address] [address] Oct, Yeast dermatitis B37.2 [place] [address] [address] Oct, Chronic pain G89.29 [place] [address] [address] Sep, Chronic pain G89.29 ; Essential hyperten homar I10 ; Depressive disorder, not elsewhere classified F32.9 and GERD (gastroesophageal reflux disease) K21.9 [place] [address] [address] Aug, Chronic pain G89.29 [place] [address] [address] Aug, Cough R05 ; Rash R21 and Rash and nonspe cific skin eruption R21 [place] [address] [address] Jul, Chronic pain G89.29 [place] [address] [address] Jun, Chronic pain G89.29 ; Bronchitis J40 ; E ssential hypertension I10 ; Depressive disorder, not elsewhere classified F32.9 ; GERD (gastroesophageal reflux disease) K21.9 and History of long-term use of multiple prescription drugs Z92.29 [place] [address] [address] Jun, Bronchitis J40 ; Chills R68.83 and Sore throat J02.9 [place] [address] [address] May, [facility] [address] [address] Apr, [facility] [address] [facility] [id number] [address] [place] [address] Apr, Acute mucoid otitis media of both ears H65.113 [place] [address] [address] 07 Apr, 2016 Yeast dermatitis B37.2 and Hematuria R31 .9 [place] [address] [address] Mar, [place] [address] [address] Mar, [place] [address] [address] Feb, Left anterior knee pain M25.562 [place] [address] [address] Feb, Chronic pain G89.29 ; Essential hyperten homar I10 ; Depressive disorder, not elsewhere classified F32.9 ; GERD (gastroesophageal reflux disease) K21.9 and History of long-term use of multiple prescription drugs Z92.29 [place] [address] [address] Jan, [place] [address] [address] Jan, Well woman exam Z01.419 ; BMI 45.0-49.9, adult Z68.42 ; Family history of diabetes mellitus Z83.3 and Chronic pain G89.29 [place] [address] [address] December, Chronic pain G89.29 ; Essential hyperten homar I10 ; Depressive disorder, not elsewhere classified F32.9 ; GERD (gastroesophageal reflux disease) K21.9 ; 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 ; History of long-term use of multiple prescription drugs Z92.29 and Obesity E66.9 [place] [address] [address] Oct, [place] [address] [place] [address] Oct, Well woman exam Z01.419 ; BMI 45.0-49.9, adult Z68.42 ; History of hysterectomy Z90.710 ; History of depression Z86.59 ; History of abnormal cervical Pap smear Z87.898 ; Screening for malignant neoplasm of breast Z12.39 ; Essential hypertension I10 ; GERD (gastroesophageal reflux disease) K21.9 ; Family history of diabetes mellitus Z83.3 ; Vaginal discharge N89.8 ; Skin irritation R23.8 ; Papanicolaou smear Z12.4 and No natural teeth K00.0 [place] [address] [address] Oct, [address] [address] Sep, Chronic pain G89.29 ; Essential hyperten homar I10 ; GERD (gastroesophageal reflux disease) K21.9 ; 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 ; Skin infection L08.9 and History of long-term use of multiple prescription drugs Z92.29 [place] [address] [address] Aug, [place] [address] [address] Jul, [place] [address] [address] Jul, [place] [address] [address] Jul, Upper respiratory infection J06.9 [place] [address] [address] Jul, Depressive disorder, not elsewhere class ified F32.[address] [address] Jul, Chronic pain 338.29 [place] [address] [address] Jul, Chronic pain G89.29 [place] [address] [address] Jun, Poison josep L23.7 [place] [address] [address] Jun, Allergic contact dermatitis due to plant s, except food L23.7 [place] [address] [address] Jun, Essential hypertension I10 ; Chronic zane n G89.29 ; GERD (gastroesophageal reflux disease) K21.9 and Numbness and tingling in hands R20.2 [place] [address] [address] May, [place] [address] [address] Apr, [place] [address] [address] Mar, [place] [address] [address] Feb, Abdominal pain, left lateral 789.09 and Constipation 564.[address] [address] Feb, Depressive disorder, not elsewhere class ified 311 and No condition on Divide II V71.09 [place] [address] [address] Feb, Spider bite 989.5 and Depression 311 [place] [address] [address] Feb, [place] [address] [address] Feb, Chronic pain 338.29 ; 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 and GERD (gastroesophageal reflux disease) 530.81 [facility] [address] [place] [id number] [place] [address] 15 Jan, 2015 Insect bites 919.4 [facility] [address] [address] 08 Jan, 2015 [facility] [address] [address] December, Skin infection, bacterial 686.9 ; Conjun ctivitis 372.30 and Insect bites 919.4 [facility] [address] [address] December, Chronic pain 338.29 ; 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 ; Skin infection, bacterial 686.9 and Conjunctivitis 372.30 [facility] [address] [place] [id number] [place] [address] December, [facility] [address] [address] Nov, [facility] [address] [address] Nov, [facility] [address] [address] Oct, [facility] [address] [address] Oct, [facility] [address] [address] Sep, [facility] [address] [address] Sep, [facility] [address] [address] Aug, [facility] [address] [address] Aug, [facility] [address] [address] Aug, [facility] [address] [address] 05 Aug, 2014 [facility] [address] [facility] [id number] [place] [address] 30 Jul, 2014 [facility] [address] [id number] [place] [address] Jul, [facility] [address] [id number] [place] [address] Jul, [facility] [address] [id number] [place] [address] Jul, [facility] [address] [id number] [place] [address] Jul, [facility] [address] [id number] [place] [address] Jul, [facility] [address] [id number] [place] [address] Jul, [facility] [address] [id number] [place] [address] Jul, [facility] [address] [id number] [place] [address] Jul, [facility] [address] [id number] [place] [address] Jun, [facility] [address] [id number] [place] [address] Jun, [facility] [address] [id number] [place] [address] Jun, [facility] [address] [id number] [place] [address] Jun, [facility] [address] [id number] [place] [address] Jun, [facility] [address] [id number] [place] [address] Jun, [facility] [address] [id number] [place] [address] Jun, [facility] [address] [id number] [place] [address] Jun, [facility] [address] [id number] [place] [address] May, [facility] [address] [id number] [place] [address] May, [facility] [address] [id number] [place] [address] May, [facility] [address] [id number] [place] [address] May, [facility] [address] [id number] [place] [address] May, [facility] [address] [id number] [place] [address] 26 Apr, 2014 [facility] [address] [id number] [place] [address] 26 Apr, 2014 [facility] [address] [id number] [place] [address] 25 Apr, 2013 [facility] [address] [id number] [place] [address] 25 Apr, 2014 [facility] [address] [id number] [place] [address] 18 Apr, 2014 [facility] [address] [id number] [place] [address] 18 Apr, 2013 [facility] [address] [id number] [place] [address] 18 Apr, 2013 [facility] [address] [id number] [place] [address] 18 Apr, 2013 [facility] [address] [id number] [place] [address] Apr, 2013 [facility] [address] [id number] [place] [address] 04 Apr, 2013 [facility] [address] [id number] [place] [address] Mar, [facility] [address] [id number] [place] [address] Mar, [facility] [address] [facility] [id number] [place] [address] Mar, [facility] [address] [facility] [id number] [place] [address] Mar, [facility] [address] [id number] [place] [address] Mar, [facility] [address] [facility] [id number] [place] [address] Mar, [facility] [address] [id number] [place] [address] Feb, [facility] [address] [id number] [place] [address] Feb, [facility] [address] [id number] [place] [address] Jan, [facility] [address] [id number] [place] [address] Jan, [facility] [address] [id number] [place] [address] Jan, [facility] [address] [id number] [place] [address] Jan, [facility] [address] [id number] [place] [address] December, [facility] [address] [id number] [place] [address] December, [facility] [address] [id number] [place] [address] December, [facility] [address] [id number] [place] [address] December, [facility] [address] [id number] [place] [address] December, [facility] [address] [id number] [place] [address] December, [facility] [address] [facility] [id number] [place] [address] December, [facility] [address] [id number] [place] [address] December, [facility] [address] [id number] [place] [address] December, [facility] [address] [id number] [place] [address] Nov, [facility] [address] [id number] [place] [address] Nov, [facility] [address] [id number] [place] [address] Nov, [facility] [address] [id number] [place] [address] Nov, [facility] [address] [id number] [place] [address] Nov, [facility] [address] [id number] [place] [address] Nov, [facility] [address] [id number] [place] [address] Nov, [facility] [address] [id number] [place] [address] Nov, [facility] [address] [id number] [place] [address] Nov, [facility] [address] [id number] [place] [address] Nov, [facility] [address] [id number] [place] [address] Oct, [facility] [address] [id number] [place] [address] Oct, [facility] [address] [id number] [place] [address] Sep, [facility] [address] [id number] [place] [address] Sep, [facility] [address] [id number] [place] [address] Aug, [facility] [address] [id number] [place] [address] Aug, [facility] [address] [id number] [place] [address] Aug, [facility] [address] [id number] [place] [address] Aug, [facility] [address] [id number] [place] [address] Jul, [facility] [address] [id number] [place] [address] Jul, [facility] [id number] [place] [address] Jul, [facility] [address] [id number] [place] [address] Jul, [facility] [address] [id number] [place] [address] Jun, [facility] [id number] [place] [address] Jun, [facility] [address] [id number] [place] [address] May, [facility] [address] [id number] [place] [address] May, [facility] [address] [id number] [place] [address] May, [facility] [id number] [place] [address] May, [facility] [address] [id number] [place] [address] May, [facility] [id number] [place] [address] May, [facility] [address] [id number] [facility] [address] 30 Apr, 2013 [facility] [address] [id number] [facility] [address] Apr, [facility] [address] [id number] [place] [address] Apr, [facility] [address] [id number] [facility] [address] Feb, [facility] [address] [facility] [id number] [facility] [address] Jan, [facility] [address] [id number] [place] [address] Jan, [facility] [address] [id number] [place] [address] Jan, [facility] [address] [id number] [place] [address] Jan, [facility] [address] [id number] [place] [address] December, [facility] [address] [id number] [place] [address] December, [facility] [address] [id number] [place] [id number] 24 Nov, 2012 [facility] [address] [id number] [place] [address] Nov, [facility] [address] [id number] [place] [address] Nov, [facility] [address] [id number] [place] [address] Nov, [facility] [address] [id number] [place] [address] Nov, [facility] [address] [id number] [place] [address] Nov, [facility] [address] [id number] [place] [address] 03 Nov, 2012 [facility] [address] [facility] [id number] [place] [address] 27 Oct, 2012 [facility] [address] [id number] [place] [address] 18 Oct, 2012 [facility] [address] [id number] [place] [address] 14 Oct, 2012 [facility] [address] [id number] [place] [address] 13 Oct, 2012 [facility] [address] [id number] [place] [address] 12 Oct, 2012 [facility] [address] [id number] [place] [address] 11 Oct, 2012 [facility] [address] [id number] [place] [address] 08 Oct, 2012 [facility] [address] [id number] [place] [address] 20 Sep, 2012 [facility] [address] [id number] [place] [address] Sep, [facility] [address] [id number] [place] [address] Aug, [facility] [address] [id number] [place] [address] Aug, [facility] [address] [id number] [place] [address] Jul, [facility] [address] [id number] [place] [address] Jul, [facility] [address] [id number] [place] [address] Jul, [facility] [address] [id number] [place] [address] Jul, [facility] [address] [id number] [place] [address] Jul, [facility] [address] [id number] [place] [address] Jul, [facility] [address] [id number] [place] [address] Jul, [facility] [address] [id number] [place] [address] Jul, [facility] [address] [id number] [place] [address] Jun, [facility] [address] [id number] [place] [address] Jun, IMMUNIZATIONS No Known Immunizations SOCIAL HISTORY Never Assessed REASON FOR VISIT PLAN OF CARE VITAL SIGNS Height 62 in 2013-10-02 Weight 252 lbs 2013-10-02 Temperature 97.7 degrees Fahrenheit 2013-10-02 Heart Rate 65 bpm 2013-10-02 Respiratory Rate 21 2013-10-02 Blood pressure systolic 120 mmHg 2013-10-02 Blood pressure diastolic 85 mmHg 2013-10-02 MEDICATIONS Unknown Medications RESULTS No Results PROCEDURES [...] -- total 11/2012 Hospitalization History [facility]- in [place] due to left knee 8
--- OUTSIDE RECORDS SUMMARY | 2020-02-11 03:11 | XMS REPORT ---
Author Author Madeline Magdaleno Doctor Organization [facility] Address Unknown Phone Unavailable Care Team Providers Care Web Feeder Name Role Phone Migration, Doctor Unavailable Unavailable PROBLEMS Type Condition ICD9-CM Code [id number] Code Onset Dates Condition S tatus SNOMED Code Problem Numbness and tingling in hands R20.2 Active 906667594 Problem History of abnormal cervical Pap smear Z87.898 Active 706314406 Problem Stasis dermatitis of both legs I87.2 Active 62738872 Problem Pre-diabetes R73.09 Active 3479575 02 Problem Morbid obesity due to excess calories E66.01 Active 373127633 Problem GERD (gastroesophageal reflux disease) K21.9 Active 536504718 Problem Mood disorder F39 Active 015634 05 Problem Chronic pain G89.29 Active 8437519 1 Problem BMI 45.0-49.9, adult Z68.42 Active 593263455 Problem Essential hypertension I10 Active 54470718 Problem Primary insomnia F51.01 Active 397 2004 Problem Chronic recurrent major depressive disorder F33.9 Active 2873292 ALLERGIES No Information ENCOUNTERS Encounter Location Date Diagnosis [place] [address] [address] 05 Oct, 2019 BMI 45.0-49.9, adult Z68.42 and Chronic pain G89.29 [place] [address] [address] 10 Sep, 2019 BMI 45.0-49.9, adult Z68.42 and Chronic pain G89.29 [place] [address] [address] 10 Sep, 2019 Essential hypertension I10 [place] [address] [address] 05 Sep, 2019 Tinea corporis B35.4 [place] [address] [address] Aug, Acute non-recurrent maxillary sinusitis J01.00 and Tinea corporis B35.4 [place] [address] [address] Aug, BMI 45.0-49.9, adult Z68.42 and Chronic pain G89.29 [place] [address] [address] Jul, BMI 45.0-49.9, adult Z68.42 and Chronic pain G89.29 [place] [address] [address] Jul, Pre-diabetes R73.09 [place] [address] [address] Jun, BMI 45.0-49.9, adult Z68.42 and Chronic pain G89.29 [place] [address] [address] Jun, Acute non-recurrent maxillary sinusitis J01.00 [place] [address] [address] May, Chronic pain G89.29 and BMI 45.0-49.9, a dult Z68.42 [place] [address] [address] Apr, Chronic pain G89.29 and BMI 45.0-49.9, a dult Z68.42 [place] [address] [address] Apr, Mood disorder F39 [place] [address] [address] Mar, Chronic pain G89.29 and BMI 45.0-49.9, a dult Z68.42 [place] [address] [address] Mar, Morbid obesity E66.01 ; Chronic recurren t major depressive disorder F33.9 ; Morbid obesity due to excess calories E66.01 and High risk medication use Z79.899 [place] [address] [address] Mar, Chronic pain G89.29 and BMI 45.0-49.9, a dult Z68.42 [place] [address] [address] Feb, [place] [address] [address] Feb, Chronic pain G89.29 and BMI 45.0-49.9, a dult Z68.42 [place] [address] [address] Jan, [place] [address] [address] Jan, Chronic pain G89.29 and BMI 45.0-49.9, a dult Z68.42 [place] [address] [address] Jan, [place] [address] [address] December, Chronic pain G89.29 and BMI 45.0-49.9, a dult Z68.42 [place] [address] [address] 24 Nov, 2018 Morbid obesity E66.01 and Cellulitis of leg, left L03.116 [place] [address] [address] 15 Nov, 2018 Cellulitis of left lower extremity L03.1 16 and Morbid obesity E66.01 [facility] [address] [facility] [id number] [address] [place] [address] 13 Nov, 2018 [place] [address] [address] 12 Nov, 2018 Morbid obesity E66.01 and Cellulitis of left lower extremity L03.116 [place] [address] [address] 11 Nov, 2018 Chronic pain G89.29 and BMI 45.0-49.9, a dult Z68.42 [place] [address] [address] Oct, BMI 45.0-49.9, adult Z68.42 and Chronic pain G89.29 [place] [address] [address] 14 Sep, 2018 BMI 45.0-49.9, adult Z68.42 and Chronic pain G89.29 [place] [address] [address] 05 Sep, 2018 BMI 45.0-49.9, adult Z68.42 and Essentia l hypertension I10 [place] [address] [address] Aug, BMI 45.0-49.9, adult Z68.42 ; Chronic pa in G89.29 ; Essential hypertension I10 and Primary insomnia F51.01 [place] [address] [address] Aug, Chronic pain G89.29 [place] [address] [address] Jul, Chronic pain G89.29 [place] [address] [address] Jun, Chronic pain G89.29 [place] [address] [address] May, Chronic pain G89.29 [place] [address] [address] 03 May, 2018 BMI 40.0-44.9, adult Z68.41 ; Other chronic condition nurse david pain G89.29 ; Pain in right hip M25.551 and Acute pain of left knee M25.562 [place] [address] [place] [address] May, Chronic pain G89.29 [facility] [address] [address] Apr, Chronic pain G89.29 [facility] [address] [address] Mar, Poison josep L23.7 [facility] [address] [address] Mar, Chronic pain G89.29 [facility] [address] [address] Feb, Chronic pain G89.29 [place] [address] [address] Feb, Poison josep L23.7 [place] [address] [address] Jan, Chronic pain G89.29 [facility] [address] [address] December, Chronic pain G89.29 [place] [address] [address] Nov, Long-term use of high-risk medication Z7 9.899 [place] [address] [address] Nov, Chronic pain G89.29 [place] [address] [address] Oct, Chronic pain G89.29 ; Pre-diabetes R73.0 9 ; Long-term use of high-risk medication Z79.899 ; Allergic rhinitis, unspecified seasonality, unspecified trigger J30.9 ; BMI 45.0-49.9, adult Z68.42 and Essential hypertension I10 [place] [address] [address] Oct, Chronic pain G89.29 [place] [address] [address] Sep, Chronic pain G89.29 [place] [address] [address] Aug, Chronic pain G89.29 [facility] [address] [address] Jul, [place] [address] [address] Jul, [facility] [address] [address] Jun, Chronic pain G89.29 ; BMI 45.0-49.9, ambreen lt Z68.42 ; Pre-diabetes R73.09 ; Essential hypertension I10 ; GERD (gastroesophageal reflux disease) K21.9 ; Yeast dermatitis B37.2 ; Dysuria R30.0 ; Acute non-recurrent maxillary sinusitis J01.00 and Acute cystitis with hematuria N30.01 [place] [address] [address] Jun, Chronic pain G89.[address] [address] Jun, Acute non-recurrent maxillary sinusitis J01.00 and BMI 45.0-49.9, adult Z68.42 [place] [address] [address] May, [place] [address] [address] May, Chronic pain G89.29 [facility] [address] [address] May, [place] [address] [address] Apr, Chronic pain G89.29 [facility] [address] [address] Mar, [facility] [address] [address] Mar, Essential hypertension I10 and Pre-diabe sondra R73.[address] [address] 15 Mar, 2017 Chronic pain G89.29 ; Essential hyperten homar I10 ; Depressive disorder, not elsewhere classified F32.9 ; GERD (gastroesophageal reflux disease) K21.9 ; Pre-diabetes R73.09 ; Stasis dermatitis of both legs I87.2 and Acute non-recurrent maxillary sinusitis J01.[address] [address] 11 Mar, 2017 Chronic pain G89.[address] [address] 07 Mar, 2017 Achilles tendinitis of right lower extre mity M76.61 and Tinea corporis B35.[address] [address] 17 Feb, 2017 Yeast dermatitis B37.[address] [address] 14 Feb, 2017 Candidal intertrigo B37.2 and Acute righ t ankle pain M25.[address] [address] 12 Feb, 2017 Chronic pain G89.[address] [address] 16 Jan, [address] [address] Jan, Chronic pain G89.[address] [address] December, Chronic pain G89.29 ; Essential hyperten homar I10 ; Depressive disorder, not elsewhere classified F32.9 ; GERD (gastroesophageal reflux disease) K21.9 ; Pre-diabetes R73.09 ; Screening breast examination Z12.39 ; Stasis dermatitis of both legs I87.2 and Yeast dermatitis B37.2 [place] [address] [address] Nov, Chronic pain G89.29 [place] [address] [address] Nov, Cellulitis of left lower extremity L03.1 16 [place] [address] [address] Nov, Cellulitis of left lower extremity L03.1 16 [place] [address] [address] Oct, Yeast dermatitis B37.[address] [address] Oct, Chronic pain G89.29 [place] [address] [address] Sep, Chronic pain G89.29 ; Essential hyperten homar I10 ; Depressive disorder, not elsewhere classified F32.9 and GERD (gastroesophageal reflux disease) K21.9 [place] [address] [address] Aug, Chronic pain G89.29 [place] [address] [address] Aug, Cough R05 ; Rash R21 and Rash and nonspe cific skin eruption R21 [place] [address] [address] Jul, Chronic pain G89.29 [place] [address] [address] Jun, Chronic pain G89.29 ; Bronchitis J40 ; E ssential hypertension I10 ; Depressive disorder, not elsewhere classified F32.9 ; GERD (gastroesophageal reflux disease) K21.9 and History of long-term use of multiple prescription drugs Z92.29 [place] [address] [address] Jun, Bronchitis J40 ; Chills R68.83 and Sore throat J02.9 [place] [address] [address] May, [place] [address] [address] Apr, [facility] [address] [facility] [id number] [address] [place] [address] Apr, Acute mucoid otitis media of both ears H65.113 [place] [address] [address] 07 Apr, 2016 Yeast dermatitis B37.2 and Hematuria R31 .9 [place] [address] [address] Mar, [place] [address] [address] Mar, [place] [address] [address] Feb, Left anterior knee pain M25.562 [place] [address] [address] Feb, Chronic pain G89.29 ; Essential hyperten homar I10 ; Depressive disorder, not elsewhere classified F32.9 ; GERD (gastroesophageal reflux disease) K21.9 and History of long-term use of multiple prescription drugs Z92.29 [place] [address] [address] Jan, [place] [address] [address] Jan, Well woman exam Z01.419 ; BMI 45.0-49.9, adult Z68.42 ; Family history of diabetes mellitus Z83.3 and Chronic pain G89.29 [place] [address] [address] December, Chronic pain G89.29 ; Essential hyperten homar I10 ; Depressive disorder, not elsewhere classified F32.9 ; GERD (gastroesophageal reflux disease) K21.9 ; 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 ; History of long-term use of multiple prescription drugs Z92.29 and Obesity E66.9 [place] [address] [address] Oct, [place] [address] [address] Oct, Well woman exam Z01.419 ; BMI [...] smear Z12.4 and No natural teeth K00.0 [place] [address] [address] Oct, [address] [address] Sep, Chronic pain G89.29 ; Essential hyperten homar I10 ; GERD (gastroesophageal reflux disease) K21.9 ; 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 ; Skin infection L08.9 and History of long-term use of multiple prescription drugs Z92.[address] [address] Aug, [place] [address] [address] Jul, [address] [address] Jul, [address] [address] Jul, Upper respiratory infection J06.[address] [address] Jul, Depressive disorder, not elsewhere class ified F32.9 [place] [address] [address] Jul, Chronic pain 338.29 [place] [address] [place] [address] Jul, Chronic pain G89.29 [place] [address] [address] Jun, Poison josep L23.7 [place] [address] [address] Jun, Allergic contact dermatitis due to plant s, except food L23.7 [place] [address] [address] Jun, Essential hypertension I10 ; Chronic zane n G89.29 ; GERD (gastroesophageal reflux disease) K21.9 and Numbness and tingling in hands R20.2 [place] [address] [address] May, [place] [address] [address] Apr, [place] [address] [address] Mar, [place] [address] [address] Feb, Abdominal pain, left lateral 789.09 and Constipation 564.00 [place] [address] [address] Feb, Depressive disorder, not elsewhere class ified 311 and No condition on Collins II V71.09 [place] [address] [address] Feb, Spider bite 989.5 and Depression 311 [place] [address] [address] Feb, [place] [address] [address] Feb, Chronic pain 338.29 ; 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 and GERD (gastroesophageal reflux disease) 530.81 [facility] [address] [address] Jan, Insect bites 919.4 [facility] [address] [address] Jan, [facility] [address] [address] December, Skin infection, bacterial 686.9 ; Conjun ctivitis 372.30 and Insect bites 919.4 [facility] [address] [address] December, Chronic pain 338.29 ; 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 ; Skin infection, bacterial 686.9 and Conjunctivitis 372.30 [facility] [address] [address] December, [facility] [address] [address] Nov, [facility] [address] [address] Nov, [facility] [address] [address] Oct, [facility] [address] [address] Oct, [facility] [address] [address] Sep, [facility] [address] [address] Sep, [facility] [address] [address] Aug, [facility] [address] [address] Aug, [facility] [address] [address] Aug, [facility] [address] [id number] [place] [address] Aug, [facility] [address] [id number] [place] [address] Jul, [facility] [address] [id number] [place] [address] Jul, [facility] [address] [id number] [place] [address] Jul, [facility] [address] [facility] [id number] [place] [address] Jul, [facility] [address] [id number] [place] [address] Jul, [facility] [address] [id number] [place] [address] Jul, [facility] [address] [id number] [place] [address] Jul, [facility] [address] [id number] [place] [address] Jul, [facility] [address] [id number] [place] [address] Jul, [facility] [address] [id number] [place] [address] Jun, [facility] [address] [id number] [place] [address] Jun, [facility] [address] [id number] [place] [address] Jun, [facility] [address] [id number] [place] [address] Jun, [facility] [address] [id number] [place] [address] Jun, [facility] [address] [id number] [place] [address] Jun, [facility] [address] [id number] [place] [address] Jun, [facility] [address] [id number] [place] [address] Jun, [facility] [address] [id number] [place] [address] May, [facility] [address] [id number] [place] [address] May, [facility] [address] [id number] [place] [address] May, [facility] [address] [id number] [place] [address] May, [facility] [address] [id number] [place] [address] May, [facility] [address] [id number] [place] [address] Apr, 2013 [facility] [address] [id number] [place] [address] 26 Apr, 2013 [facility] [address] [id number] [place] [address] 25 Apr, 2013 [facility] [address] [id number] [place] [address] 25 Apr, 2013 [facility] [address] [id number] [place] [address] 18 Sep, 2013 [facility] [address] [id number] [place] [address] 18 Apr, 2013 [facility] [address] [id number] [place] [address] 18 Sep, 2013 [facility] [address] [id number] [place] [address] 18 Sep, 2013 [facility] [address] [id number] [place] [address] 04 Apr, 2013 [facility] [address] [id number] [place] [address] 04 Sep, 2013 [facility] [address] [facility] [id number] [place] [address] Mar, [facility] [address] [facility] [id number] [place] [address] Mar, [facility] [address] [facility] [id number] [place] [address] Mar, [facility] [address] [id number] [place] [address] Mar, [facility] [address] [facility] [id number] [place] [address] Mar, [facility] [address] [facility] [id number] [place] [address] Mar, [facility] [address] [id number] [place] [address] Feb, [facility] [address] [id number] [place] [address] Feb, [facility] [address] [id number] [place] [address] Jan, [facility] [address] [id number] [place] [address] Jan, [facility] [address] [id number] [place] [address] Jan, [facility] [address] [id number] [place] [address] Jan, [facility] [address] [id number] [place] [address] December, [facility] [address] [facility] [id number] [place] [address] December, [facility] [address] [id number] [place] [address] December, [facility] [address] [id number] [place] [address] December, [facility] [address] [id number] [place] [address] December, [facility] [address] [id number] [place] [address] December, [facility] [address] [id number] [place] [address] December, [facility] [address] [id number] [place] [address] December, [facility] [address] [id number] [place] [address] December, [facility] [address] [facility] [id number] [place] [address] Nov, [facility] [address] [id number] [place] [address] Nov, [facility] [address] [id number] [place] [address] Nov, [facility] [address] [id number] [place] [address] Nov, [facility] [address] [id number] [place] [address] Nov, [facility] [address] [id number] [place] [address] Nov, [facility] [address] [id number] [place] [address] Nov, [facility] [address] [id number] [place] [address] Nov, [facility] [address] [id number] [place] [address] Nov, [facility] [address] [id number] [place] [address] Nov, [facility] [address] [id number] [place] [address] Oct, [facility] [address] [id number] [place] [address] Oct, [facility] [address] [id number] [place] [address] Sep, [facility] [address] [id number] [place] [address] Sep, [facility] [address] [id number] [place] [address] Aug, [facility] [address] [id number] [place] [address] Aug, [facility] [address] [id number] [place] [address] Aug, [facility] [address] [id number] [place] [address] Aug, [facility] [address] [id number] [place] [address] Jul, [facility] [address] [id number] [place] [address] Jul, [facility] [address] [id number] [place] [address] Jul, [facility] [address] [id number] [place] [address] Jul, [facility] [address] [id number] [place] [address] Jun, [facility] [address] [id number] [place] [address] Jun, [facility] [address] [id number] [place] [address] May, [facility] [address] [id number] [place] [address] May, [facility] [id number] [place] [address] May, [facility] [address] [id number] [place] [address] May, [facility] [address] [id number] [place] [address] May, [facility] [id number] [place] [address] May, [facility] [address] [id number] [place] [address] 30 Apr, 2013 [facility] [address] [id number] [place] [address] Apr, [facility] [address] [id number] [place] [address] Apr, [facility] [address] [id number] [place] [address] Feb, [facility] [address] [id number] [place] [address] Jan, [facility] [address] [id number] [place] [address] Jan, [facility] [address] [id number] [place] [address] Jan, [facility] [address] [id number] [place] [address] Jan, [facility] [address] [id number] [place] [address] December, [facility] [address] [id number] [place] [address] December, [facility] [address] [id number] [place] [address] 24 Nov, 2012 [facility] [address] [id number] [place] [address] Nov, [facility] [address] [id number] [place] [address] Nov, [facility] [address] [id number] [place] [address] Nov, [facility] [address] [id number] [place] [address] 08 Nov, 2012 [facility] [address] [id number] [place] [address] 08 Nov, 2012 [facility] [address] [facility] [id number] [place] [address] 03 Nov, 2012 [facility] [address] [facility] [id number] [facility] [address] 27 Oct, 2012 [facility] [address] [facility] [id number] [place] [address] 18 Oct, 2012 [facility] [address] [id number] [place] [address] 14 Oct, 2012 [facility] [address] [facility] [id number] [place] [address] 13 Oct, 2012 [facility] [address] [id number] [place] [address] 12 Oct, 2012 [facility] [address] [id number] [place] [address] 11 Oct, 2012 [facility] [address] [id number] [place] [address] 08 Oct, 2012 [facility] [address] [id number] [place] [address] 20 Sep, 2012 [facility] [address] [id number] [place] [address] Sep, [facility] [address] [id number] [place] [address] Aug, [facility] [address] [id number] [place] [address] Aug, [facility] [address] [id number] [place] [address] Jul, [facility] [address] [facility] [id number] [place] [address] Jul, [facility] [address] [id number] [place] [address] Jul, [facility] [address] [id number] [place] [address] Jul, [facility] [address] [id number] [place] [address] Jul, [facility] [address] [id number] [place] [address] Jul, [facility] [address] [id number] [place] [address] Jul, [facility] [address] [id number] [place] [address] Jul, [facility] [address] [id number] [place] [address] Jun, [facility] [address] [id number] [place] [address] Jun, IMMUNIZATIONS No Known Immunizations SOCIAL HISTORY [...]
--- OUTSIDE RECORDS SUMMARY | 2020-02-11 03:11 | XMS REPORT ---
Author Author Madeline Magdaleno Doctor Organization [facility] Address Unknown Phone Unavailable Care Team Providers Care Yarn Sizer Name Role Phone Migration, Doctor Unavailable Unavailable PROBLEMS Type Condition ICD9-CM Code TNR65-MH Code Onset Dates Condition S tatus SNOMED Code Problem Numbness and tingling in hands R20.2 Active 067176548 Problem History of abnormal cervical Pap smear Z87.898 Active 807536501 Problem Stasis dermatitis of both legs I87.2 Active 85980103 Problem Pre-diabetes R73.09 Active 7387154 02 Problem Morbid obesity due to excess calories E66.01 Active 535698569 Problem GERD (gastroesophageal reflux disease) K21.9 Active 713278890 Problem Mood disorder F39 Active 415387 05 Problem Chronic pain G89.29 Active 8041947 1 Problem BMI 45.0-49.9, adult Z68.42 Active 375010823 Problem Essential hypertension I10 Active 97414943 Problem Primary insomnia F51.01 Active 397 2004 Problem Chronic recurrent major depressive disorder F33.9 Active 2811602 ALLERGIES No Information ENCOUNTERS Encounter Location Date Diagnosis [place] [address] [address] 05 Oct, 2019 BMI 45.0-49.9, adult Z68.42 and Chronic pain G89.29 [place] [address] [address] 10 Sep, 2019 BMI 45.0-49.9, adult Z68.42 and Chronic pain G89.29 [place] [address] [address] 10 Sep, 2019 Essential hypertension I10 [place] [address] [address] 05 Sep, 2019 Tinea corporis B35.4 [place] [address] [address] Aug, Acute non-recurrent maxillary sinusitis J01.00 and Tinea corporis B35.4 [place] [address] [address] Aug, BMI 45.0-49.9, adult Z68.42 and Chronic pain G89.29 [place] [address] [address] Jul, BMI 45.0-49.9, adult Z68.42 and Chronic pain G89.29 [place] [address] [address] Jul, Pre-diabetes R73.09 [place] [address] [address] Jun, BMI 45.0-49.9, adult Z68.42 and Chronic pain G89.29 [place] [address] [address] Jun, Acute non-recurrent maxillary sinusitis J01.00 [place] [address] [address] May, Chronic pain G89.29 and BMI 45.0-49.9, a dult Z68.42 [place] [address] [address] Apr, Chronic pain G89.29 and BMI 45.0-49.9, a dult Z68.42 [place] [address] [address] Apr, Mood disorder F39 [place] [address] [address] Mar, Chronic pain G89.29 and BMI 45.0-49.9, a dult Z68.42 [place] [address] [address] Mar, Morbid obesity E66.01 ; Chronic recurren t major depressive disorder F33.9 ; Morbid obesity due to excess calories E66.01 and High risk medication use Z79.899 [place] [address] [address] Mar, Chronic pain G89.29 and BMI 45.0-49.9, a dult Z68.42 [place] [address] [address] Feb, [place] [address] [address] Feb, Chronic pain G89.29 and BMI 45.0-49.9, a dult Z68.42 [place] [address] [address] Jan, [place] [address] [address] Jan, Chronic pain G89.29 and BMI 45.0-49.9, a dult Z68.42 [place] [address] [address] Jan, [place] [address] [address] December, Chronic pain G89.29 and BMI 45.0-49.9, a dult Z68.42 [place] [address] [address] 24 Nov, 2018 Morbid obesity E66.01 and Cellulitis of leg, left L03.116 [place] [address] [address] 15 Nov, 2018 Cellulitis of left lower extremity L03.1 16 and Morbid obesity E66.01 [facility] [address] [facility] [id number] [address] [place] [address] 13 Nov, 2018 [place] [address] [address] 12 Nov, 2018 Morbid obesity E66.01 and Cellulitis of left lower extremity L03.116 [place] [address] [address] 11 Nov, 2018 Chronic pain G89.29 and BMI 45.0-49.9, a dult Z68.42 [place] [address] [address] Oct, BMI 45.0-49.9, adult Z68.42 and Chronic pain G89.29 [place] [address] [address] 14 Sep, 2018 BMI 45.0-49.9, adult Z68.42 and Chronic pain G89.29 [place] [address] [address] 05 Sep, 2018 BMI 45.0-49.9, adult Z68.42 and Essentia l hypertension I10 [place] [address] [address] Aug, BMI 45.0-49.9, adult Z68.42 ; Chronic pa in G89.29 ; Essential hypertension I10 and Primary insomnia F51.01 [place] [address] [address] Aug, Chronic pain G89.29 [place] [address] [address] Jul, Chronic pain G89.29 [place] [address] [address] Jun, Chronic pain G89.29 [place] [address] [address] May, Chronic pain G89.29 [place] [address] [address] 03 May, 2018 BMI 40.0-44.9, adult Z68.41 ; Other die attacher david pain G89.29 ; Pain in right hip M25.551 and Acute pain of left knee M25.562 [place] [address] [place] [address] May, Chronic pain G89.29 [facility] [address] [address] Apr, Chronic pain G89.29 [facility] [address] [address] Mar, Poison josep L23.7 [facility] [address] [address] Mar, Chronic pain G89.29 [facility] [address] [address] Feb, Chronic pain G89.29 [place] [address] [address] Feb, Poison josep L23.7 [place] [address] [address] Jan, Chronic pain G89.29 [facility] [address] [address] December, Chronic pain G89.29 [place] [address] [address] Nov, Long-term use of high-risk medication Z7 9.899 [place] [address] [address] Nov, Chronic pain G89.29 [place] [address] [address] Oct, Chronic pain G89.29 ; Pre-diabetes R73.0 9 ; Long-term use of high-risk medication Z79.899 ; Allergic rhinitis, unspecified seasonality, unspecified trigger J30.9 ; BMI 45.0-49.9, adult Z68.42 and Essential hypertension I10 [place] [address] [address] Oct, Chronic pain G89.29 [place] [address] [address] Sep, Chronic pain G89.29 [place] [address] [address] Aug, Chronic pain G89.29 [facility] [address] [address] Jul, [place] [address] [address] Jul, [facility] [address] [address] Jun, Chronic pain G89.29 ; BMI 45.0-49.9, ambreen lt Z68.42 ; Pre-diabetes R73.09 ; Essential hypertension I10 ; GERD (gastroesophageal reflux disease) K21.9 ; Yeast dermatitis B37.2 ; Dysuria R30.0 ; Acute non-recurrent maxillary sinusitis J01.00 and Acute cystitis with hematuria N30.01 [place] [address] [address] Jun, Chronic pain G89.[address] [address] Jun, Acute non-recurrent maxillary sinusitis J01.00 and BMI 45.0-49.9, adult Z68.42 [place] [address] [address] May, [place] [address] [address] May, Chronic pain G89.29 [facility] [address] [address] May, [place] [address] [address] Apr, Chronic pain G89.29 [facility] [address] [address] Mar, [facility] [address] [address] Mar, Essential hypertension I10 and Pre-diabe sondra R73.[address] [address] 15 Mar, 2017 Chronic pain G89.29 ; Essential hyperten homar I10 ; Depressive disorder, not elsewhere classified F32.9 ; GERD (gastroesophageal reflux disease) K21.9 ; Pre-diabetes R73.09 ; Stasis dermatitis of both legs I87.2 and Acute non-recurrent maxillary sinusitis J01.[address] [address] 11 Mar, 2017 Chronic pain G89.[address] [address] 07 Mar, 2017 Achilles tendinitis of right lower extre mity M76.61 and Tinea corporis B35.[address] [address] 17 Feb, 2017 Yeast dermatitis B37.[address] [address] 14 Feb, 2017 Candidal intertrigo B37.2 and Acute righ t ankle pain M25.[address] [address] 12 Feb, 2017 Chronic pain G89.[address] [address] 16 Jan, [address] [address] Jan, Chronic pain G89.[address] [address] December, Chronic pain G89.29 ; Essential hyperten homar I10 ; Depressive disorder, not elsewhere classified F32.9 ; GERD (gastroesophageal reflux disease) K21.9 ; Pre-diabetes R73.09 ; Screening breast examination Z12.39 ; Stasis dermatitis of both legs I87.2 and Yeast dermatitis B37.2 [place] [address] [address] Nov, Chronic pain G89.29 [place] [address] [address] Nov, Cellulitis of left lower extremity L03.1 16 [place] [address] [address] Nov, Cellulitis of left lower extremity L03.1 16 [place] [address] [address] Oct, Yeast dermatitis B37.[address] [address] Oct, Chronic pain G89.29 [place] [address] [address] Sep, Chronic pain G89.29 ; Essential hyperten homar I10 ; Depressive disorder, not elsewhere classified F32.9 and GERD (gastroesophageal reflux disease) K21.9 [place] [address] [address] Aug, Chronic pain G89.29 [place] [address] [address] Aug, Cough R05 ; Rash R21 and Rash and nonspe cific skin eruption R21 [place] [address] [address] Jul, Chronic pain G89.29 [place] [address] [address] Jun, Chronic pain G89.29 ; Bronchitis J40 ; E ssential hypertension I10 ; Depressive disorder, not elsewhere classified F32.9 ; GERD (gastroesophageal reflux disease) K21.9 and History of long-term use of multiple prescription drugs Z92.29 [place] [address] [address] Jun, Bronchitis J40 ; Chills R68.83 and Sore throat J02.9 [place] [address] [address] May, [place] [address] [address] Apr, [facility] [address] [facility] [id number] [address] [place] [address] Apr, Acute mucoid otitis media of both ears H65.113 [place] [address] [address] 07 Apr, 2016 Yeast dermatitis B37.2 and Hematuria R31 .9 [place] [address] [address] Mar, [place] [address] [address] Mar, [place] [address] [address] Feb, Left anterior knee pain M25.562 [place] [address] [address] Feb, Chronic pain G89.29 ; Essential hyperten homar I10 ; Depressive disorder, not elsewhere classified F32.9 ; GERD (gastroesophageal reflux disease) K21.9 and History of long-term use of multiple prescription drugs Z92.29 [place] [address] [address] Jan, [place] [address] [address] Jan, Well woman exam Z01.419 ; BMI 45.0-49.9, adult Z68.42 ; Family history of diabetes mellitus Z83.3 and Chronic pain G89.29 [place] [address] [address] December, Chronic pain G89.29 ; Essential hyperten homar I10 ; Depressive disorder, not elsewhere classified F32.9 ; GERD (gastroesophageal reflux disease) K21.9 ; 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 ; History of long-term use of multiple prescription drugs Z92.29 and Obesity E66.9 [place] [address] [address] Oct, [place] [address] [address] Oct, Well woman exam Z01.419 ; BMI [...] smear Z12.4 and No natural teeth K00.0 [place] [address] [address] Oct, [address] [address] Sep, Chronic pain G89.29 ; Essential hyperten homar I10 ; GERD (gastroesophageal reflux disease) K21.9 ; 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 ; Skin infection L08.9 and History of long-term use of multiple prescription drugs Z92.[address] [address] Aug, [place] [address] [address] Jul, [address] [address] Jul, [address] [address] Jul, Upper respiratory infection J06.[address] [address] Jul, Depressive disorder, not elsewhere class ified F32.9 [place] [address] [address] Jul, Chronic pain 338.29 [place] [address] [place] [address] Jul, Chronic pain G89.29 [place] [address] [address] Jun, Poison josep L23.7 [place] [address] [address] Jun, Allergic contact dermatitis due to plant s, except food L23.7 [place] [address] [address] Jun, Essential hypertension I10 ; Chronic zane n G89.29 ; GERD (gastroesophageal reflux disease) K21.9 and Numbness and tingling in hands R20.2 [place] [address] [address] May, [place] [address] [address] Apr, [place] [address] [address] Mar, [place] [address] [address] Feb, Abdominal pain, left lateral 789.09 and Constipation 564.00 [place] [address] [address] Feb, Depressive disorder, not elsewhere class ified 311 and No condition on [place] II V71.09 [place] [address] [address] Feb, Spider bite 989.5 and Depression 311 [place] [address] [address] Feb, [place] [address] [address] Feb, Chronic pain 338.29 ; 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 and GERD (gastroesophageal reflux disease) 530.81 [facility] [address] [address] Jan, Insect bites 919.4 [facility] [address] [address] Jan, [facility] [address] [address] December, Skin infection, bacterial 686.9 ; Conjun ctivitis 372.30 and Insect bites 919.4 [facility] [address] [address] December, Chronic pain 338.29 ; 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 ; Skin infection, bacterial 686.9 and Conjunctivitis 372.30 [facility] [address] [address] December, [facility] [address] [address] Nov, [facility] [address] [address] Nov, [facility] [address] [address] Oct, [facility] [address] [address] Oct, [facility] [address] [address] Sep, [facility] [address] [address] Sep, [facility] [address] [address] Aug, [facility] [address] [address] Aug, [facility] [address] [address] Aug, [facility] [address] [id number] [place] [address] Aug, [facility] [address] [id number] [place] [address] Jul, [facility] [address] [id number] [place] [address] Jul, [facility] [address] [id number] [place] [address] Jul, [facility] [address] [facility] [id number] [place] [address] Jul, [facility] [address] [id number] [place] [address] Jul, [facility] [address] [id number] [place] [address] Jul, [facility] [address] [id number] [place] [address] Jul, [facility] [address] [id number] [place] [address] Jul, [facility] [address] [id number] [place] [address] Jul, [facility] [address] [id number] [place] [address] Jun, [facility] [address] [id number] [place] [address] Jun, [facility] [address] [id number] [place] [address] Jun, [facility] [address] [id number] [place] [address] Jun, [facility] [address] [id number] [place] [address] Jun, [facility] [address] [id number] [place] [address] Jun, [facility] [address] [id number] [place] [address] Jun, [facility] [address] [id number] [place] [address] Jun, [facility] [address] [id number] [place] [address] May, [facility] [address] [id number] [place] [address] May, [facility] [address] [id number] [place] [address] May, [facility] [address] [id number] [place] [address] May, [facility] [address] [id number] [place] [address] May, [facility] [address] [id number] [place] [address] Apr, 2013 [facility] [address] [id number] [place] [address] 26 Apr, 2013 [facility] [address] [id number] [place] [address] 25 Apr, 2013 [facility] [address] [id number] [place] [address] 25 Apr, 2013 [facility] [address] [id number] [place] [address] 18 Sep, 2013 [facility] [address] [id number] [place] [address] 18 Apr, 2013 [facility] [address] [id number] [place] [address] 18 Sep, 2013 [facility] [address] [id number] [place] [address] 18 Sep, 2013 [facility] [address] [id number] [place] [address] 04 Apr, 2013 [facility] [address] [id number] [place] [address] 04 Sep, 2013 [facility] [address] [facility] [id number] [place] [address] Mar, [facility] [address] [facility] [id number] [place] [address] Mar, [facility] [address] [facility] [id number] [place] [address] Mar, [facility] [address] [id number] [place] [address] Mar, [facility] [address] [facility] [id number] [place] [address] Mar, [facility] [address] [facility] [id number] [place] [address] Mar, [facility] [address] [id number] [place] [address] Feb, [facility] [address] [id number] [place] [address] Feb, [facility] [address] [id number] [place] [address] Jan, [facility] [address] [id number] [place] [address] Jan, [facility] [address] [id number] [place] [address] Jan, [facility] [address] [id number] [place] [address] Jan, [facility] [address] [id number] [place] [address] December, [facility] [address] [facility] [id number] [place] [address] December, [facility] [address] [id number] [place] [address] December, [facility] [address] [id number] [place] [address] December, [facility] [address] [id number] [place] [address] December, [facility] [address] [id number] [place] [address] December, [facility] [address] [id number] [place] [address] December, [facility] [address] [id number] [place] [address] December, [facility] [address] [id number] [place] [address] December, [facility] [address] [facility] [id number] [place] [address] Nov, [facility] [address] [id number] [place] [address] Nov, [facility] [address] [id number] [place] [address] Nov, [facility] [address] [id number] [place] [address] Nov, [facility] [address] [id number] [place] [address] Nov, [facility] [address] [id number] [place] [address] Nov, [facility] [address] [id number] [place] [address] Nov, [facility] [address] [id number] [place] [address] Nov, [facility] [address] [id number] [place] [address] Nov, [facility] [address] [id number] [place] [address] Nov, [facility] [address] [id number] [place] [address] Oct, [facility] [address] [id number] [place] [address] Oct, [facility] [address] [id number] [place] [address] Sep, [facility] [address] [id number] [place] [address] Sep, [facility] [address] [id number] [place] [address] Aug, [facility] [address] [id number] [place] [address] Aug, [facility] [address] [id number] [place] [address] Aug, [facility] [address] [id number] [place] [address] Aug, [facility] [address] [id number] [place] [address] Jul, [facility] [address] [id number] [place] [address] Jul, [facility] [address] [id number] [place] [address] Jul, [facility] [address] [id number] [place] [address] Jul, [facility] [address] [id number] [place] [address] Jun, [facility] [address] [id number] [place] [address] Jun, [facility] [address] [id number] [place] [address] May, [facility] [address] [id number] [place] [address] May, [facility] [id number] [place] [address] May, [facility] [address] [id number] [place] [address] May, [facility] [address] [id number] [place] [address] May, [facility] [address] [id number] [place] [address] May, [facility] [address] [id number] [place] [address] 30 Apr, 2013 [facility] [address] [id number] [place] [address] Apr, [facility] [address] [id number] [place] [address] Apr, [facility] [address] [id number] [place] [address] Feb, [facility] [address] [id number] [place] [address] Jan, [facility] [address] [id number] [place] [address] Jan, [facility] [address] [id number] [place] [address] Jan, [facility] [address] [id number] [place] [address] Jan, [facility] [address] [id number] [place] [address] December, [facility] [address] [id number] [place] [address] December, [facility] [address] [id number] [place] [address] 24 Nov, 2012 [facility] [address] [id number] [place] [address] Nov, [facility] [address] [id number] [place] [address] Nov, [facility] [address] [id number] [place] [address] Nov, [facility] [address] [id number] [place] [address] 08 Nov, 2012 [facility] [address] [id number] [place] [address] 08 Nov, 2012 [facility] [address] [facility] [id number] [place] [address] 03 Nov, 2012 [facility] [address] [facility] [id number] [facility] [place] [address] 27 Oct, 2012 [facility] [address] [facility] [id number] [place] [address] 18 Oct, 2012 [facility] [address] [id number] [place] [address] 14 Oct, 2012 [facility] [address] [facility] [id number] [place] [address] 13 Oct, 2012 [facility] [address] [id number] [place] [address] 12 Oct, 2012 [facility] [address] [id number] [place] [address] 11 Oct, 2012 [facility] [address] [id number] [place] [address] 08 Oct, 2012 [facility] [address] [id number] [place] [address] 20 Sep, 2012 [facility] [address] [id number] [place] [address] Sep, [facility] [address] [id number] [place] [address] Aug, [facility] [address] [id number] [place] [address] Aug, [facility] [address] [id number] [place] [address] Jul, [facility] [address] [facility] [id number] [place] [address] Jul, [facility] [address] [id number] [place] [address] Jul, [facility] [address] [id number] [place] [address] Jul, [facility] [address] [id number] [place] [address] Jul, [facility] [address] [id number] [place] [address] Jul, [facility] [address] [id number] [place] [address] Jul, [facility] [address] [id number] [place] [address] Jul, [facility] [address] [id number] [place] [address] Jun, [facility] [address] [id number] [place] [address] Jun, IMMUNIZATIONS No Known Immunizations SOCIAL HISTORY [...]
--- OUTSIDE RECORDS SUMMARY | 2020-02-11 03:12 | XMS REPORT ---
Author Author Madeline MUNGUIA Organization [facility] Address [address] [place] [address] Care Team Providers Care Dock Guard Name Role Phone MUSA MUNGUIA Unavailable PROBLEMS Type Condition ICD9-CM Code [id number] Code Onset Dates Condition S tatus SNOMED Code Problem Numbness and tingling in hands R20.2 Active 930047462 Problem History of abnormal cervical Pap smear Z87.898 Active 337783916 Problem Stasis dermatitis of both legs I87.2 Active 58311144 Problem Pre-diabetes R73.09 Active 2189694 02 Problem Morbid obesity due to excess calories E66.01 Active 316644240 Problem GERD (gastroesophageal reflux disease) K21.9 Active 921643864 Problem Mood disorder F39 Active 871616 05 Problem Chronic pain G89.29 Active 4592428 1 Problem BMI 45.0-49.9, adult Z68.42 Active 023123727 Problem Essential hypertension I10 Active 67173429 Problem Primary insomnia F51.01 Active 397 2004 Problem Chronic recurrent major depressive disorder F33.9 Active 2635593 ALLERGIES No Information ENCOUNTERS Encounter Location Date Diagnosis [place] [address] [address] 10 Sep, 2019 BMI 45.0-49.9, adult Z68.42 and Chronic pain G89.29 [facility] [address] [address] 10 Sep, 2019 Essential hypertension I10 [place] [address] [address] 05 Sep, 2019 Tinea corporis B35.4 [place] [address] [address] Aug, Acute non-recurrent maxillary sinusitis J01.00 and Tinea corporis B35.4 [place] [address] [address] 14 Aug, 2019 BMI 45.0-49.9, adult Z68.42 and Chronic pain G89.29 [place] [address] [address] 17 Jul, 2019 BMI 45.0-49.9, adult Z68.42 and Chronic pain G89.29 [place] [address] [address] Jul, Pre-diabetes R73.09 [place] [address] [address] Jun, BMI 45.0-49.9, adult Z68.42 and Chronic pain G89.29 [place] [address] [address] Jun, Acute non-recurrent maxillary sinusitis J01.00 [place] [address] [address] May, Chronic pain G89.29 and BMI 45.0-49.9, a dult Z68.42 [place] [address] [address] Apr, Chronic pain G89.29 and BMI 45.0-49.9, a dult Z68.42 [place] [address] [address] Apr, Mood disorder F39 [place] [address] [address] Mar, Chronic pain G89.29 and BMI 45.0-49.9, a dult Z68.42 [place] [address] [address] 08 Mar, 2019 Morbid obesity E66.01 ; Chronic recurren t major depressive disorder F33.9 ; Morbid obesity due to excess calories E66.01 and High risk medication use Z79.899 [place] [address] [address] Mar, Chronic pain G89.29 and BMI 45.0-49.9, a dult Z68.42 [place] [address] [address] Feb, [place] [address] [address] Feb, Chronic pain G89.29 and BMI 45.0-49.9, a dult Z68.42 [place] [address] [address] Jan, [place] [address] [address] Jan, Chronic pain G89.29 and BMI 45.0-49.9, a dult Z68.42 [place] [address] [address] Jan, [place] [address] [address] December, Chronic pain G89.29 and BMI 45.0-49.9, a dult Z68.42 [place] [address] [address] Nov, Morbid obesity E66.01 and Cellulitis of leg, left L03.116 [place] [address] [address] 15 Nov, 2018 Cellulitis of left lower extremity L03.1 16 and Morbid obesity E66.01 [facility] [address] [facility] [id number] [address] [place] [address] Nov, [place] [address] [address] Nov, Morbid obesity E66.01 and Cellulitis of left lower extremity L03.116 [place] [address] [address] Nov, Chronic pain G89.29 and BMI 45.0-49.9, a dult Z68.42 [place] [address] [address] Oct, BMI 45.0-49.9, adult Z68.42 and Chronic pain G89.29 [place] [address] [address] 14 Sep, 2018 BMI 45.0-49.9, adult Z68.42 and Chronic pain G89.29 [place] [address] [address] 05 Sep, 2018 BMI 45.0-49.9, adult Z68.42 and Essentia l hypertension I10 [place] [address] [address] Aug, BMI 45.0-49.9, adult Z68.42 ; Chronic pa in G89.29 ; Essential hypertension I10 and Primary insomnia F51.01 [place] [address] [address] Aug, Chronic pain G89.29 [place] [address] [address] Jul, Chronic pain G89.29 [place] [address] [address] Jun, Chronic pain G89.29 [place] [address] [address] May, Chronic pain G89.29 [place] [address] [address] May, BMI 40.0-44.9, adult Z68.41 ; 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 [address] [address] Mar, Poison josep L23.7 [place] [address] [address] Mar, Chronic pain G89.29 [place] [address] [address] Feb, Chronic pain G89.29 [place] [address] [address] Feb, Poison josep L23.7 [place] [address] [address] Jan, Chronic pain G89.29 [place] [address] [address] December, Chronic pain G89.29 [place] [address] [address] Nov, Long-term use of high-risk medication Z7 9.899 [place] [address] [address] Nov, Chronic pain G89.29 [place] [address] [address] Oct, Chronic pain G89.29 ; Pre-diabetes R73.0 9 ; Long-term use of high-risk medication Z79.899 ; Allergic rhinitis, unspecified seasonality, unspecified trigger J30.9 ; BMI 45.0-49.9, adult Z68.42 and Essential hypertension I10 [place] [address] [address] Oct, Chronic pain G89.29 [place] [address] [address] Sep, Chronic pain G89.29 [facility] [address] [address] Aug, Chronic pain G89.29 [facility] [address] [address] Jul, [facility] [address] [address] Jul, [place] [address] [address] Jun, Chronic pain G89.29 ; BMI 45.0-49.9, ambreen lt Z68.42 ; Pre-diabetes R73.09 ; Essential hypertension I10 ; GERD (gastroesophageal reflux disease) K21.9 ; Yeast dermatitis B37.2 ; Dysuria R30.0 ; Acute non-recurrent maxillary sinusitis J01.00 and Acute cystitis with hematuria N30.01 [place] [address] [address] Jun, Chronic pain G89.29 [place] [address] [address] Jun, Acute non-recurrent maxillary sinusitis J01.00 and BMI 45.0-49.9, adult Z68.42 [place] [address] [address] May, [place] [address] [address] May, Chronic pain G89.29 [place] [address] [address] May, [place] [address] [address] Apr, Chronic pain G89.29 [place] [address] [address] Mar, [place] [address] [address] Mar, Essential hypertension I10 and Pre-diabe sondra R73.09 [place] [address] [address] 15 Mar, 2017 Chronic pain G89.29 ; Essential hyperten homar I10 ; Depressive disorder, not elsewhere classified F32.9 ; GERD (gastroesophageal reflux disease) K21.9 ; Pre-diabetes R73.09 ; Stasis dermatitis of both legs I87.2 and Acute non-recurrent maxillary sinusitis J01.00 [place] [address] [address] 11 Mar, 2017 Chronic pain G89.[address] [address] Mar, Achilles tendinitis of right lower extre mity M76.61 and Tinea corporis B35.[address] [address] 17 Feb, 2017 Yeast dermatitis B37.[address] [address] 14 Feb, 2017 Candidal intertrigo B37.2 and Acute righ t ankle pain M25.[address] [address] Feb, Chronic pain G89.[address] [address] 16 Jan, [address] [address] Jan, Chronic pain G89.[address] [address] December, Chronic pain G89.29 ; Essential hyperten homar I10 ; Depressive disorder, not elsewhere classified F32.9 ; GERD (gastroesophageal reflux disease) K21.9 ; Pre-diabetes R73.09 ; Screening breast examination Z12.39 ; Stasis dermatitis of both legs I87.2 and Yeast dermatitis B37.[address] [address] Nov, Chronic pain G89.29 [place] [address] [address] Nov, Cellulitis of left lower extremity L03.1 16 [place] [address] [address] 17 Nov, 2016 Cellulitis of left lower extremity L03.1 16 [place] [address] [address] Oct, Yeast dermatitis B37.2 [place] [address] [address] Oct, Chronic pain G89.29 [place] [address] [address] Sep, Chronic pain G89.29 ; Essential hyperten homar I10 ; Depressive disorder, not elsewhere classified F32.9 and GERD (gastroesophageal reflux disease) K21.9 [place] [address] [address] Aug, Chronic pain G89.29 [place] [address] [address] Aug, Cough R05 ; Rash R21 and Rash and nonspe cific skin eruption R21 [place] [address] [address] Jul, Chronic pain G89.29 [place] [address] [address] Jun, Chronic pain G89.29 ; Bronchitis J40 ; E ssential hypertension I10 ; Depressive disorder, not elsewhere classified F32.9 ; GERD (gastroesophageal reflux disease) K21.9 and History of long-term use of multiple prescription drugs Z92.29 [place] [address] [address] Jun, Bronchitis J40 ; Chills R68.83 and Sore throat J02.9 [place] [address] [address] May, [facility] [address] [address] Apr, [facility] [address] [facility] [id number] [address] [place] [address] Apr, Acute mucoid otitis media of both ears H65.113 [place] [address] [address] Apr, Yeast dermatitis B37.2 and Hematuria R31 .9 [place] [address] [address] Mar, [place] [address] [address] Mar, [place] [address] [address] Feb, Left anterior knee pain M25.562 [place] [address] [address] Feb, Chronic pain G89.29 ; Essential hyperten homar I10 ; Depressive disorder, not elsewhere classified F32.9 ; GERD (gastroesophageal reflux disease) K21.9 and History of long-term use of multiple prescription drugs Z92.29 [place] [address] [address] Jan, [address] [address] Jan, Well woman exam Z01.419 ; BMI 45.0-49.9, adult Z68.42 ; Family history of diabetes mellitus Z83.3 and Chronic pain G89.29 [place] [address] [address] December, Chronic pain G89.29 ; Essential hyperten homar I10 ; Depressive disorder, not elsewhere classified F32.9 ; GERD (gastroesophageal reflux disease) K21.9 ; 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 ; History of long-term use of multiple prescription drugs Z92.29 and Obesity E66.9 [place] [address] [address] Oct, [place] [address] Oct, Well woman exam Z01.419 ; BMI [...] smear Z12.4 and No natural teeth K00.[address] [address] Oct, [address] [address] Sep, Chronic pain G89.29 ; Essential hyperten homar I10 ; GERD (gastroesophageal reflux disease) K21.9 ; 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 ; Skin infection L08.9 and History of long-term use of multiple prescription drugs Z92.[address] [address] Aug, [address] [address] Jul, [address] [address] Jul, [address] [address] Jul, Upper respiratory infection J06.[address] [address] Jul, Depressive disorder, not elsewhere class ified F32.[address] [address] Jul, Chronic pain 338.29 [place] [address] [address] Jul, Chronic pain G89.29 [place] [address] [address] Jun, Poison josep L23.7 [place] [address] [address] Jun, Allergic contact dermatitis due to plant s, except food L23.7 [place] [address] [address] Jun, Essential hypertension I10 ; Chronic zane n G89.29 ; GERD (gastroesophageal reflux disease) K21.9 and Numbness and tingling in hands R20.2 [place] [address] [address] May, [place] [address] [address] Apr, [place] [address] [address] Mar, [place] [address] [address] Feb, Abdominal pain, left lateral 789.09 and Constipation 564.[address] [address] Feb, Depressive disorder, not elsewhere class ified 311 and No condition on [employer] V71.09 [place] [address] [address] Feb, Spider bite 989.5 and Depression 311 [place] [address] [address] Feb, [place] [address] [address] Feb, Chronic pain 338.29 ; 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 and GERD (gastroesophageal reflux disease) 530.81 [facility] [address] [place] [id number] [place] [address] 15 Jan, 2015 Insect bites 919.4 [facility] [address] [address] Jan, [facility] [address] [place] [id number] [place] [address] December, Skin infection, bacterial 686.9 ; Conjun ctivitis 372.30 and Insect bites 919.4 [facility] [address] [address] December, Chronic pain 338.29 ; 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 ; Skin infection, bacterial 686.9 and Conjunctivitis 372.30 [facility] [address] [place] [id number] [place] [address] December, [facility] [address] [address] Nov, [facility] [address] [address] Nov, [facility] [address] [address] Oct, [facility] [address] [address] Oct, [facility] [address] [address] Sep, [facility] [address] [place] [id number] [place] [address] Sep, [facility] [address] [address] Aug, [facility] [address] [address] Aug, [facility] [address] [place] [id number] [place] [address] Aug, [facility] [address] [address] Aug, [facility] [address] [id number] [place] [address] Jul, [facility] [address] [id number] [place] [address] Jul, [facility] [address] [id number] [place] [address] Jul, [facility] [address] [id number] [place] [address] Jul, [facility] [address] [id number] [place] [address] Jul, [facility] [address] [id number] [place] [address] Jul, [facility] [address] [id number] [place] [address] Jul, [facility] [address] [id number] [place] [address] Jul, [facility] [address] [id number] [place] [address] Jul, [facility] [address] [id number] [place] [address] Jun, [facility] [address] [id number] [place] [address] Jun, [facility] [address] [id number] [place] [address] Jun, [facility] [address] [id number] [place] [address] Jun, [facility] [address] [id number] [place] [address] Jun, [facility] [address] [id number] [place] [address] Jun, [facility] [address] [id number] [place] [address] Jun, [facility] [address] [id number] [place] [address] Jun, [facility] [address] [id number] [place] [address] May, [facility] [address] [id number] [place] [address] May, [facility] [address] [id number] [place] [address] May, [facility] [address] [id number] [place] [address] May, [facility] [address] [id number] [place] [address] May, [facility] [address] [id number] [place] [address] Apr, [facility] [address] [id number] [place] [address] Apr, [facility] [address] [id number] [place] [address] 25 Apr, 2013 [facility] [address] [id number] [place] [address] 25 Apr, 2014 [facility] [address] [id number] [place] [address] 18 Apr, 2014 [facility] [address] [id number] [place] [address] 18 Apr, 2013 [facility] [address] [id number] [place] [address] 18 Apr, 2013 [facility] [address] [id number] [place] [address] 18 Apr, 2013 [facility] [address] [place] [id number] [place] [address] Apr, 2013 [facility] [address] [id number] [place] [address] Apr, 2013 [facility] [address] [id number] [place] [address] Mar, [facility] [address] [facility] [id number] [place] [address] Mar, [facility] [address] [facility] [id number] [place] [address] Mar, [facility] [address] [facility] [id number] [place] [address] Mar, [facility] [address] [id number] [place] [address] Mar, [facility] [address] [facility] [id number] [place] [address] Mar, [facility] [address] [id number] [place] [address] Feb, [facility] [address] [id number] [place] [address] Feb, [facility] [address] [id number] [place] [address] Jan, [facility] [address] [id number] [place] [address] Jan, [facility] [address] [id number] [place] [address] Jan, [facility] [address] [id number] [place] [address] Jan, [facility] [address] [id number] [place] [address] December, [facility] [address] [id number] [place] [address] December, [facility] [address] [facility] [id number] [place] [address] December, [facility] [address] [id number] [place] [address] December, [facility] [address] [id number] [place] [address] December, [facility] [address] [id number] [place] [address] December, [facility] [address] [facility] [id number] [place] [address] December, [facility] [address] [facility] [id number] [facility] [place] [address] December, [facility] [address] [id number] [place] [address] December, [facility] [address] [id number] [place] [address] Nov, [facility] [address] [facility] [id number] [place] [address] Nov, [facility] [address] [id number] [place] [address] Nov, [facility] [address] [id number] [place] [address] Nov, [facility] [address] [id number] [place] [address] Nov, [facility] [address] [id number] [place] [address] Nov, [facility] [address] [id number] [place] [address] Nov, [facility] [address] [id number] [place] [address] Nov, [facility] [address] [id number] [place] [address] Nov, [facility] [address] [id number] [place] [address] Nov, [facility] [address] [id number] [place] [address] Oct, [facility] [address] [id number] [place] [address] Oct, [facility] [address] [id number] [place] [address] Sep, [facility] [address] [id number] [place] [address] Sep, [facility] [address] [id number] [place] [address] Aug, [facility] [address] [id number] [place] [address] Aug, [facility] [address] [id number] [place] [address] Aug, [facility] [address] [id number] [place] [address] Aug, [facility] [address] [id number] [place] [address] Jul, [facility] [address] [id number] [place] [address] Jul, [facility] [address] [id number] [place] [address] Jul, [facility] [address] [id number] [place] [address] Jul, [facility] [address] [id number] [place] [address] Jun, [facility] [address] [id number] [place] [address] Jun, [facility] [address] [id number] [place] [address] May, [facility] [address] [id number] [place] [address] May, [facility] [address] [id number] [place] [address] May, [facility] [id number] [place] [address] May, [facility] [address] [id number] [place] [address] May, [facility] [address] [id number] [place] [address] May, [facility] [address] [id number] [place] [address] 30 Apr, 2013 [facility] [address] [id number] [place] [address] 23 Apr, 2013 [facility] [address] [id number] [place] [address] Apr, [facility] [address] [id number] [place] [address] Feb, [facility] [address] [id number] [place] [address] Jan, [facility] [address] [id number] [place] [address] Jan, [facility] [address] [id number] [place] [address] Jan, [facility] [address] [id number] [place] [address] Jan, [facility] [address] [id number] [place] [address] December, [facility] [address] [id number] [place] [address] December, [facility] [address] [id number] [place] [address] 24 Nov, 2012 [facility] [address] [id number] [place] [address] Nov, [facility] [address] [id number] [place] [address] Nov, [facility] [address] [id number] [place] [address] Nov, [facility] [address] [id number] [place] [address] 08 Nov, 2012 [facility] [address] [id number] [place] [address] Nov, [facility] [address] [id number] [place] [address] 03 Nov, 2012 [facility] [address] [facility] [id number] [facility] [place] [address] 27 Oct, 2012 [facility] [address] [id number] [facility] [place] [address] 18 Oct, 2012 [facility] [address] [id number] [facility] [place] [address] 14 Oct, 2012 [facility] [address] [id number] [facility] [place] [address] 13 Oct, 2012 [facility] [address] [id number] [facility] [place] [address] 12 Oct, 2012 [facility] [address] [id number] [place] [address] 11 Oct, 2012 [facility] [address] [id number] [place] [address] 08 Oct, 2012 [facility] [address] [id number] [place] [address] 20 Sep, 2012 [facility] [facility] [address] [id number] [place] [address] Sep, [facility] [address] [id number] [place] [address] Aug, [facility] [address] [id number] [place] [address] Aug, [facility] [address] [id number] [place] [address] Jul, [facility] [address] [id number] [place] [address] Jul, [facility] [address] [id number] [place] [address] Jul, [facility] [address] [id number] [place] [address] Jul, [facility] [address] [id number] [place] [address] Jul, [facility] [address] [id number] [place] [address] Jul, [facility] [address] [id number] [place] [address] Jul, [facility] [address] [id number] [place] [address] Jul, [facility] [address] [id number] [place] [address] Jun, [facility] [address] [id number] [place] [address] Jun, IMMUNIZATIONS No Known Immunizations SOCIAL HISTORY [...]
--- OUTSIDE RECORDS SUMMARY | 2020-02-11 03:12 | XMS REPORT ---
Author Author АНДРЕЙ Madelineshawn LEONG Organization [facility] Address [address] [place] [address] Care Team Providers Care Clinic Scheduler Name Role Phone KWESIKennedy DANG Unavailable PROBLEMS Type Condition ICD9-CM Code LUH98-FL Code Onset Dates Condition S tatus SNOMED Code Problem Numbness and tingling in hands R20.2 Active 006062841 Problem History of abnormal cervical Pap smear Z87.898 Active 253770559 Problem Stasis dermatitis of both legs I87.2 Active 58964463 Problem Pre-diabetes R73.09 Active 8258072 02 Problem Morbid obesity due to excess calories E66.01 Active 860586620 Problem GERD (gastroesophageal reflux disease) K21.9 Active 235677581 Problem Mood disorder F39 Active 530530 05 Problem Chronic pain G89.29 Active 8781769 1 Problem BMI 45.0-49.9, adult Z68.42 Active 814882816 Problem Essential hypertension I10 Active 05758230 Problem Primary insomnia F51.01 Active 397 2004 Problem Chronic recurrent major depressive disorder F33.9 Active 4678048 ALLERGIES No Information ENCOUNTERS Encounter Location Date Diagnosis [place] [address] [address] 20 Aug, 2019 Acute non-recurrent maxillary sinusitis J01.00 and Tinea corporis B35.[address] [address] 14 Aug, 2019 BMI 45.0-49.9, adult Z68.42 and Chronic pain G89.[address] [address] Jul, BMI 45.0-49.9, adult Z68.42 and Chronic pain G89.[address] [address] Jul, Pre-diabetes R73.09 [place] [address] [address] Jun, BMI 45.0-49.9, adult Z68.42 and Chronic pain G89.29 [place] [address] [address] Jun, Acute non-recurrent maxillary sinusitis J01.00 [place] [address] [address] May, Chronic pain G89.29 and BMI 45.0-49.9, a dult Z68.42 [place] [address] [address] Apr, Chronic pain G89.29 and BMI 45.0-49.9, a dult Z68.42 [place] [address] [address] Apr, Mood disorder F39 [place] [address] [address] Mar, Chronic pain G89.29 and BMI 45.0-49.9, a dult Z68.42 [place] [address] [address] Mar, Morbid obesity E66.01 ; Chronic recurren t major depressive disorder F33.9 ; Morbid obesity due to excess calories E66.01 and High risk medication use Z79.899 [place] [address] [address] Mar, Chronic pain G89.29 and BMI 45.0-49.9, a dult Z68.42 [place] [address] [address] Feb, [place] [address] [address] Feb, Chronic pain G89.29 and BMI 45.0-49.9, a dult Z68.42 [place] [address] [address] 11 Jan, 2019 [place] [address] [address] 10 Jan, 2019 Chronic pain G89.29 and BMI 45.0-49.9, a dult Z68.42 [place] [address] [address] Jan, [place] [address] [address] December, Chronic pain G89.29 and BMI 45.0-49.9, a dult Z68.42 [place] [address] [address] 24 Nov, 2018 Morbid obesity E66.01 and Cellulitis of leg, left L03.116 [place] [address] [address] 15 Nov, 2018 Cellulitis of left lower extremity L03.1 16 and Morbid obesity E66.01 [facility] [address] [facility] [id number] [address] [place] [address] Nov, [place] [address] [address] Nov, Morbid obesity E66.01 and Cellulitis of left lower extremity L03.116 [place] [address] [address] Nov, Chronic pain G89.29 and BMI 45.0-49.9, a dult Z68.42 [place] [address] [address] Oct, BMI 45.0-49.9, adult Z68.42 and Chronic pain G89.29 [place] [address] [address] 14 Sep, 2018 BMI 45.0-49.9, adult Z68.42 and Chronic pain G89.29 [place] [address] [address] Sep, BMI 45.0-49.9, adult Z68.42 and Essentia l hypertension I10 [place] [address] [address] Aug, BMI 45.0-49.9, adult Z68.42 ; Chronic pa in G89.29 ; Essential hypertension I10 and Primary insomnia F51.01 [place] [address] [address] Aug, Chronic pain G89.29 [place] [address] [address] Jul, Chronic pain G89.29 [place] [address] [address] Jun, Chronic pain G89.29 [place] [address] [address] May, Chronic pain G89.29 [place] [address] [address] May, BMI 40.0-44.9, adult Z68.41 ; 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 ; Pain in right hip M25.551 and Acute pain of left knee M25.562 [place] [address] [address] May, Chronic pain G89.29 [place] [address] [address] Apr, Chronic pain G89.29 [place] [address] [address] Mar, Poison josep L23.7 [place] [address] [address] Mar, Chronic pain G89.29 [place] [address] [address] Feb, Chronic pain G89.29 [place] [address] [address] Feb, Poison josep L23.7 [place] [address] [address] Jan, Chronic pain G89.29 [place] [address] [address] December, Chronic pain G89.29 [place] [address] [address] Nov, Long-term use of high-risk medication Z7 9.899 [place] [address] [address] Nov, Chronic pain G89.29 [place] [address] [address] Oct, Chronic pain G89.29 ; Pre-diabetes R73.0 9 ; Long-term use of high-risk medication Z79.899 ; Allergic rhinitis, unspecified seasonality, unspecified trigger J30.9 ; BMI 45.0-49.9, adult Z68.42 and Essential hypertension I10 [place] [address] [address] Oct, Chronic pain G89.29 [place] [address] [address] Sep, Chronic pain G89.29 [place] [address] [address] Aug, Chronic pain G89.29 [place] [address] [address] Jul, [place] [address] [address] Jul, [place] [address] [address] Jun, Chronic pain G89.29 ; BMI 45.0-49.9, ambreen lt Z68.42 ; Pre-diabetes R73.09 ; Essential hypertension I10 ; GERD (gastroesophageal reflux disease) K21.9 ; Yeast dermatitis B37.2 ; Dysuria R30.0 ; Acute non-recurrent maxillary sinusitis J01.00 and Acute cystitis with hematuria N30.01 [place] [address] [address] Jun, Chronic pain G89.29 [place] [address] [address] Jun, Acute non-recurrent maxillary sinusitis J01.00 and BMI 45.0-49.9, adult Z68.42 [place] [address] [address] May, [place] [address] [address] May, Chronic pain G89.29 [place] [address] [address] May, [place] [address] [address] Apr, Chronic pain G89.29 [place] [address] [address] Mar, [place] [address] [address] Mar, Essential hypertension I10 and Pre-diabe sondra R73.09 [place] [address] [address] Mar, Chronic pain G89.29 ; Essential hyperten homar I10 ; Depressive disorder, not elsewhere classified F32.9 ; GERD (gastroesophageal reflux disease) K21.9 ; Pre-diabetes R73.09 ; Stasis dermatitis of both legs I87.2 and Acute non-recurrent maxillary sinusitis J01.00 [place] [address] [address] Mar, Chronic pain G89.29 [place] [address] [address] 07 Mar, 2017 Achilles tendinitis of right lower extre mity M76.61 and Tinea corporis B35.[address] [address] 17 Feb, 2017 Yeast dermatitis B37.[address] [address] Feb, Candidal intertrigo B37.2 and Acute righ t ankle pain M25.[address] [address] Feb, Chronic pain G89.[address] [address] Jan, [address] [address] Jan, Chronic pain G89.[address] [address] December, Chronic pain G89.29 ; Essential hyperten homar I10 ; Depressive disorder, not elsewhere classified F32.9 ; GERD (gastroesophageal reflux disease) K21.9 ; Pre-diabetes R73.09 ; Screening breast examination Z12.39 ; Stasis dermatitis of both legs I87.2 and Yeast dermatitis B37.2 [place] [address] [address] Nov, Chronic pain G89.[address] [address] Nov, Cellulitis of left lower extremity L03.[address] [address] 17 Nov, 2016 Cellulitis of left lower extremity L03.[address] [address] Oct, Yeast dermatitis B37.2 [place] [address] [address] Oct, Chronic pain G89.29 [place] [address] [address] Sep, Chronic pain G89.29 ; Essential hyperten homar I10 ; Depressive disorder, not elsewhere classified F32.9 and GERD (gastroesophageal reflux disease) K21.9 [place] [address] [address] Aug, Chronic pain G89.[address] [address] Aug, Cough R05 ; Rash R21 and Rash and nonspe cific skin eruption R21 [address] [address] Jul, Chronic pain G89.29 [place] [address] [address] Jun, Chronic pain G89.29 ; Bronchitis J40 ; E ssential hypertension I10 ; Depressive disorder, not elsewhere classified F32.9 ; GERD (gastroesophageal reflux disease) K21.9 and History of long-term use of multiple prescription drugs Z92.[address] [address] Jun, Bronchitis J40 ; Chills R68.83 and Sore throat J02.9 [place] [address] [address] May, [address] [address] Apr, [facility] [address] [facility] [id number] [address] [place] [address] 19 Apr, 2016 Acute mucoid otitis media of both ears H65.[address] [address] Apr, Yeast dermatitis B37.2 and Hematuria R31 .9 [place] [address] [address] Mar, [place] [address] [address] Mar, [place] [address] [address] Feb, Left anterior knee pain M25.562 [place] [address] [address] Feb, Chronic pain G89.29 ; Essential hyperten homar I10 ; Depressive disorder, not elsewhere classified F32.9 ; GERD (gastroesophageal reflux disease) K21.9 and History of long-term use of multiple prescription drugs Z92.29 [place] [address] [address] Jan, [place] [address] [address] Jan, Well woman exam Z01.419 ; BMI 45.0-49.9, adult Z68.42 ; Family history of diabetes mellitus Z83.3 and Chronic pain G89.29 [place] [address] [address] December, Chronic pain G89.29 ; Essential hyperten homar I10 ; Depressive disorder, not elsewhere classified F32.9 ; GERD (gastroesophageal reflux disease) K21.9 ; 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 ; History of long-term use of multiple prescription drugs Z92.29 and Obesity E66.9 [place] [address] [address] Oct, [place] [address] Oct, Well woman exam Z01.419 ; BMI [...] smear Z12.4 and No natural teeth K00.0 [place] [id number] Oct, [place] [address] Sep, Chronic pain G89.29 ; Essential hyperten homar I10 ; GERD (gastroesophageal reflux disease) K21.9 ; 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 ; Skin infection L08.9 and History of long-term use of multiple prescription drugs Z92.[address] [address] Aug, [place] [id number] Jul, [address] [address] Jul, [address] [address] Jul, Upper respiratory infection J06.[address] [address] Jul, Depressive disorder, not elsewhere class ified F32.[address] [address] Jul, Chronic pain 338.[address] [address] Jul, Chronic pain G89.[address] [address] Jun, Poison josep L23.[address] [address] Jun, Allergic contact dermatitis due to plant s, except food L23.7 [place] [address] [address] Jun, Essential hypertension I10 ; Chronic zane n G89.29 ; GERD (gastroesophageal reflux disease) K21.9 and Numbness and tingling in hands R20.2 [place] [address] [address] May, [place] [address] [address] Apr, [place] [address] [address] Mar, [place] [address] [address] Feb, Abdominal pain, left lateral 789.09 and Constipation 564.[address] [address] Feb, Depressive disorder, not elsewhere class ified 311 and No condition on [place] II V71.09 [place] [address] [address] Feb, Spider bite 989.5 and Depression 311 [place] [address] [address] Feb, [place] [address] [address] Feb, Chronic pain 338.29 ; 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 and GERD (gastroesophageal reflux disease) 530.81 [place] [address] [address] Jan, Insect bites 919.4 [place] [address] [address] Jan, [place] [address] [address] December, Skin infection, bacterial 686.9 ; Conjun ctivitis 372.30 and Insect bites 919.4 [facility] [address] [place] [id number] [place] [address] December, Chronic pain 338.29 ; 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 ; Skin infection, bacterial 686.9 and Conjunctivitis 372.30 [facility] [address] [place] [id number] [place] [address] December, [facility] [address] [place] [id number] [place] [address] Nov, [facility] [address] [place] [id number] [place] [address] Nov, [facility] [address] [address] Oct, [facility] [address] [place] [id number] [place] [address] Oct, [facility] [address] [place] [id number] [place] [address] Sep, [facility] [address] [place] [id number] [place] [address] Sep, [facility] [address] [address] Aug, [facility] [address] [place] [id number] [place] [address] Aug, [facility] [address] [place] [id number] [place] [address] Aug, [facility] [address] [place] [id number] [place] [address] Aug, [facility] [place] [address] [place] [id number] [place] [address] Jul, [facility] [address] [place] [id number] [place] [address] Jul, [facility] [place] [address] [place] [id number] [place] [address] Jul, [facility] [address] [place] [id number] [place] [address] 15 Jul, 2014 [facility] [address] [id number] [place] [address] Jul, [facility] [address] [id number] [place] [address] Jul, [facility] [address] [id number] [place] [address] Jul, [facility] [address] [id number] [place] [address] Jul, [facility] [address] [id number] [place] [address] Jul, [facility] [address] [id number] [place] [address] Jun, [facility] [address] [id number] [place] [address] Jun, [facility] [address] [id number] [place] [address] Jun, [facility] [address] [id number] [place] [address] Jun, [facility] [address] [id number] [place] [address] Jun, [facility] [address] [id number] [place] [address] Jun, [facility] [address] [id number] [place] [address] Jun, [facility] [address] [id number] [place] [address] Jun, [facility] [address] [id number] [place] [address] May, [facility] [address] [id number] [place] [address] May, [facility] [address] [id number] [place] [address] 16 May, 2014 [facility] [address] [id number] [place] [address] May, [facility] [address] [id number] [place] [address] May, [facility] [address] [id number] [place] [address] Apr, [facility] [address] [id number] [place] [address] Apr, [facility] [address] [id number] [place] [address] Apr, [facility] [address] [id number] [place] [address] Apr, [facility] [address] [id number] [place] [address] Apr, [facility] [address] [id number] [place] [address] Apr, [facility] [address] [id number] [place] [address] Apr, [facility] [address] [id number] [place] [address] Apr, [facility] [address] [id number] [place] [address] Apr, [facility] [address] [id number] [place] [address] Apr, [facility] [address] [id number] [place] [address] Mar, [facility] [address] [id number] [place] [address] Mar, [facility] [address] [id number] [place] [address] Mar, [facility] [address] [id number] [place] [address] Mar, [facility] [address] [id number] [place] [address] Mar, [facility] [address] [id number] [place] [address] Mar, [facility] [address] [id number] [place] [address] Feb, [facility] [address] [id number] [place] [address] Feb, [facility] [address] [id number] [place] [address] Jan, [facility] [address] [id number] [place] [address] Jan, [facility] [address] [id number] [place] [address] Jan, [facility] [address] [id number] [place] [address] Jan, [facility] [address] [id number] [place] [address] December, [facility] [address] [id number] [place] [address] December, [facility] [address] [id number] [place] [address] December, [facility] [address] [id number] [place] [address] December, [facility] [address] [id number] [place] [address] December, [facility] [address] [id number] [place] [address] December, [facility] [address] [id number] [place] [address] December, [facility] [address] [id number] [place] [address] December, [facility] [address] [id number] [place] [address] December, [facility] [address] [id number] [place] [address] Nov, [facility] [address] [facility] [id number] [place] [address] Nov, [facility] [address] [facility] [id number] [facility] [place] [address] Nov, [facility] [address] [id number] [place] [address] Nov, [facility] [address] [id number] [place] [address] Nov, [facility] [address] [facility] [id number] [facility] [place] [address] Nov, [facility] [address] [id number] [place] [address] Nov, [facility] [address] [id number] [place] [address] Nov, [facility] [address] [id number] [place] [address] Nov, [facility] [address] [id number] [place] [address] Nov, [facility] [address] [id number] [place] [address] Oct, [facility] [address] [id number] [place] [address] Oct, [facility] [address] [id number] [place] [address] Sep, [facility] [address] [facility] [id number] [place] [address] Sep, [facility] [address] [id number] [place] [address] Aug, [facility] [address] [id number] [place] [address] Aug, [facility] [address] [id number] [place] [address] Aug, [facility] [address] [id number] [place] [address] 16 Aug, 2013 [facility] [address] [id number] [place] [address] Jul, [facility] [address] [id number] [place] [address] Jul, [facility] [address] [id number] [place] [address] Jul, [facility] [address] [id number] [place] [address] Jul, [facility] [address] [id number] [place] [address] Jun, [facility] [address] [id number] [place] [address] Jun, [facility] [id number] [place] [address] May, [facility] [id number] [place] [address] May, [facility] [address] [id number] [place] [address] May, [facility] [address] [id number] [place] [address] May, [facility] [id number] [place] [address] May, [facility] [address] [id number] [place] [address] May, [facility] [address] [id number] [place] [address] 30 Apr, 2013 [facility] [id number] [place] [address] Apr, [facility] [address] [id number] [place] [address] Apr, [facility] [id number] [place] [address] Feb, [facility] [id number] [place] [address] Jan, [facility] [address] [id number] [place] [address] Jan, [facility] [address] [id number] [place] [address] 17 Jan, 2013 [facility] [address] [id number] [place] [address] Jan, [facility] [address] [facility] [id number] [place] [address] December, [facility] [address] [id number] [place] [address] December, [facility] [address] [id number] [place] [address] 24 Nov, 2012 [facility] [address] [id number] [place] [address] Nov, [facility] [address] [id number] [place] [address] Nov, [facility] [address] [id number] [place] [address] Nov, [facility] [address] [id number] [place] [address] 08 Nov, 2012 [facility] [address] [id number] [place] [address] 08 Nov, 2012 [facility] [address] [id number] [place] [address] Nov, [facility] [address] [id number] [place] [address] 27 Oct, 2012 [facility] [address] [id number] [place] [address] 18 Oct, 2012 [facility] [address] [id number] [place] [address] 14 Oct, 2012 [facility] [address] [id number] [place] [address] 13 Oct, 2012 [facility] [address] [id number] [place] [address] Oct, [facility] [address] [id number] [place] [address] Oct, [facility] [address] [id number] [place] [address] 08 Oct, 2012 [facility] [address] [id number] [place] [address] Sep, [facility] [address] [id number] [place] [address] Sep, [facility] [address] [id number] [place] [address] Aug, [facility] [address] [id number] [place] [address] Aug, [facility] [address] [id number] [place] [address] Jul, [facility] [address] [id number] [place] [address] Jul, [facility] [address] [id number] [place] [address] Jul, [facility] [address] [id number] [place] [address] Jul, [facility] [address] [id number] [place] [address] Jul, [facility] [address] [id number] [place] [id number] Jul, [facility] [address] [id number] [place] [address] Jul, [facility] [address] [id number] [place] [address] Jul, [facility] [address] [id number] [place] [address] Jun, [facility] [address] [id number] [place] [address] Jun, IMMUNIZATIONS No Known Immunizations SOCIAL HISTORY Never Assessed REASON FOR VISIT PLAN OF CARE VITAL SIGNS MEDICATIONS No Known Medications RESULTS No Results PROCEDURES No Known [...] -- total 11/2012 Hospitalization History [facility]- in [place] due to left knee 8
--- OUTSIDE RECORDS SUMMARY | 2020-02-11 03:12 | XMS REPORT ---
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 Name Role Phone KWESIKennedy DANG Unavailable PROBLEMS Type Condition ICD9-CM Code FFC51-OP Code Onset Dates Condition S tatus SNOMED Code Problem Numbness and tingling in hands R20.2 Active 871105056 Problem History of abnormal cervical Pap smear Z87.898 Active 913303497 Problem Stasis dermatitis of both legs I87.2 Active 02385380 Problem Pre-diabetes R73.09 Active 0712140 02 Problem Morbid obesity due to excess calories E66.01 Active 583492731 Problem GERD (gastroesophageal reflux disease) K21.9 Active 238051686 Problem Mood disorder F39 Active 814519 05 Problem Chronic pain G89.29 Active 9112477 1 Problem BMI 45.0-49.9, adult Z68.42 Active 590952866 Problem Essential hypertension I10 Active 15148895 Problem Primary insomnia F51.01 Active 397 2004 Problem Chronic recurrent major depressive disorder F33.9 Active 0780354 ALLERGIES No Information ENCOUNTERS Encounter Location Date Diagnosis [facility] [address] [address] 10 Sep, 2019 BMI 45.0-49.9, adult Z68.42 and Chronic pain G89.29 [facility] [address] [address] 10 Sep, 2019 Essential hypertension I10 [facility] [address] [address] 05 Sep, 2019 Tinea corporis B35.4 [facility] [address] [address] Aug, Acute non-recurrent maxillary sinusitis J01.00 and Tinea corporis B35.4 [place] [address] [address] 14 Aug, 2019 BMI 45.0-49.9, adult Z68.42 and Chronic pain G89.29 [place] [address] [address] 17 Jul, 2019 BMI 45.0-49.9, adult Z68.42 and Chronic pain G89.29 [place] [address] [address] Jul, Pre-diabetes R73.[address] [address] Jun, BMI 45.0-49.9, adult Z68.42 and Chronic pain G89.29 [place] [address] [address] Jun, Acute non-recurrent maxillary sinusitis J01.00 [place] [address] [address] May, Chronic pain G89.29 and BMI 45.0-49.9, a dult Z68.42 [place] [address] [address] Apr, Chronic pain G89.29 and BMI 45.0-49.9, a dult Z68.42 [place] [address] [address] Apr, Mood disorder F39 [place] [address] [address] Mar, Chronic pain G89.29 and BMI 45.0-49.9, a dult Z68.42 [place] [address] [address] Mar, Morbid obesity E66.01 ; Chronic recurren t major depressive disorder F33.9 ; Morbid obesity due to excess calories E66.01 and High risk medication use Z79.899 [place] [address] [address] Mar, Chronic pain G89.29 and BMI 45.0-49.9, a dult Z68.42 [place] [address] [address] Feb, [place] [address] [address] Feb, Chronic pain G89.29 and BMI 45.0-49.9, a dult Z68.42 [place] [address] [address] Jan, [place] [address] [address] Jan, Chronic pain G89.29 and BMI 45.0-49.9, a dult Z68.42 [place] [address] [address] Jan, [place] [address] [address] December, Chronic pain G89.29 and BMI 45.0-49.9, a dult Z68.42 [place] [address] [address] Nov, Morbid obesity E66.01 and Cellulitis of leg, left L03.116 [place] [address] [address] 15 Nov, 2018 Cellulitis of left lower extremity L03.1 16 and Morbid obesity E66.01 [facility] [address] [facility] [id number] [address] [place] [address] Nov, [place] [address] [address] Nov, Morbid obesity E66.01 and Cellulitis of left lower extremity L03.116 [place] [address] [address] Nov, Chronic pain G89.29 and BMI 45.0-49.9, a dult Z68.42 [place] [address] [address] Oct, BMI 45.0-49.9, adult Z68.42 and Chronic pain G89.29 [place] [address] [address] 14 Sep, 2018 BMI 45.0-49.9, adult Z68.42 and Chronic pain G89.29 [place] [address] [address] Sep, BMI 45.0-49.9, adult Z68.42 and Essentia l hypertension I10 [place] [address] [address] Aug, BMI 45.0-49.9, adult Z68.42 ; Chronic pa in G89.29 ; Essential hypertension I10 and Primary insomnia F51.01 [place] [address] [address] Aug, Chronic pain G89.29 [place] [address] [address] Jul, Chronic pain G89.29 [place] [address] [address] Jun, Chronic pain G89.29 [place] [address] [address] May, Chronic pain G89.29 [place] [address] [address] May, BMI 40.0-44.9, adult Z68.41 ; 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 ; Pain in right hip M25.551 and Acute pain of left knee M25.562 [place] [address] [address] May, Chronic pain G89.29 [facility] [address] [address] Apr, Chronic pain G89.29 [facility] [address] [address] Mar, Poison josep L23.7 [facility] [address] [address] Mar, Chronic pain G89.29 [facility] [address] [address] Feb, Chronic pain G89.29 [place] [address] [address] Feb, Poison josep L23.7 [place] [address] [address] Jan, Chronic pain G89.29 [place] [address] [address] December, Chronic pain G89.29 [place] [address] [address] Nov, Long-term use of high-risk medication Z7 9.899 [place] [address] [address] Nov, Chronic pain G89.29 [place] [address] [address] Oct, Chronic pain G89.29 ; Pre-diabetes R73.0 9 ; Long-term use of high-risk medication Z79.899 ; Allergic rhinitis, unspecified seasonality, unspecified trigger J30.9 ; BMI 45.0-49.9, adult Z68.42 and Essential hypertension I10 [place] [address] [address] Oct, Chronic pain G89.29 [place] [address] [address] Sep, Chronic pain G89.29 [facility] [address] [address] Aug, Chronic pain G89.29 [facility] [address] [address] Jul, [facility] [address] [address] Jul, [facility] [address] [address] Jun, Chronic pain G89.29 ; BMI 45.0-49.9, ambreen lt Z68.42 ; Pre-diabetes R73.09 ; Essential hypertension I10 ; GERD (gastroesophageal reflux disease) K21.9 ; Yeast dermatitis B37.2 ; Dysuria R30.0 ; Acute non-recurrent maxillary sinusitis J01.00 and Acute cystitis with hematuria N30.01 [place] [address] [address] Jun, Chronic pain G89.29 [place] [address] [address] Jun, Acute non-recurrent maxillary sinusitis J01.00 and BMI 45.0-49.9, adult Z68.42 [place] [address] [address] May, [place] [address] [address] May, Chronic pain G89.29 [facility] [address] [address] May, [place] [address] [address] Apr, Chronic pain G89.29 [place] [address] [address] Mar, [place] [address] [address] Mar, Essential hypertension I10 and Pre-diabe sondra R73.09 [place] [address] [address] 15 Mar, 2017 Chronic pain G89.29 ; Essential hyperten homar I10 ; Depressive disorder, not elsewhere classified F32.9 ; GERD (gastroesophageal reflux disease) K21.9 ; Pre-diabetes R73.09 ; Stasis dermatitis of both legs I87.2 and Acute non-recurrent maxillary sinusitis J01.00 [place] [address] [address] 11 Mar, 2017 Chronic pain G89.[address] [address] 07 Mar, 2017 Achilles tendinitis of right lower extre mity M76.61 and Tinea corporis B35.[address] [address] 17 Feb, 2017 Yeast dermatitis B37.[address] [address] 14 Feb, 2017 Candidal intertrigo B37.2 and Acute righ t ankle pain M25.[address] [address] 12 Feb, 2017 Chronic pain G89.[address] [address] 16 Jan, [address] [address] Jan, Chronic pain G89.[address] [address] December, Chronic pain G89.29 ; Essential hyperten homar I10 ; Depressive disorder, not elsewhere classified F32.9 ; GERD (gastroesophageal reflux disease) K21.9 ; Pre-diabetes R73.09 ; Screening breast examination Z12.39 ; Stasis dermatitis of both legs I87.2 and Yeast dermatitis B37.[address] [place] [address] Nov, Chronic pain G89.29 [place] [address] [address] Nov, Cellulitis of left lower extremity L03.1 16 [place] [address] [address] 17 Nov, 2016 Cellulitis of left lower extremity L03.1 16 [place] [address] [address] Oct, Yeast dermatitis B37.2 [place] [address] [address] Oct, Chronic pain G89.29 [place] [address] [address] Sep, Chronic pain G89.29 ; Essential hyperten homar I10 ; Depressive disorder, not elsewhere classified F32.9 and GERD (gastroesophageal reflux disease) K21.9 [place] [address] [address] Aug, Chronic pain G89.29 [place] [address] [address] Aug, Cough R05 ; Rash R21 and Rash and nonspe cific skin eruption R21 [place] [address] [address] Jul, Chronic pain G89.29 [place] [address] [address] Jun, Chronic pain G89.29 ; Bronchitis J40 ; E ssential hypertension I10 ; Depressive disorder, not elsewhere classified F32.9 ; GERD (gastroesophageal reflux disease) K21.9 and History of long-term use of multiple prescription drugs Z92.29 [place] [address] [address] Jun, Bronchitis J40 ; Chills R68.83 and Sore throat J02.9 [place] [address] [address] May, [facility] [address] [address] Apr, [facility] [address] [facility] [id number] [address] [place] [address] Apr, Acute mucoid otitis media of both ears H65.113 [place] [address] [address] 07 Apr, 2016 Yeast dermatitis B37.2 and Hematuria R31 .9 [place] [address] [address] Mar, [place] [address] [address] Mar, [place] [address] [address] Feb, Left anterior knee pain M25.562 [place] [address] [address] Feb, Chronic pain G89.29 ; Essential hyperten homar I10 ; Depressive disorder, not elsewhere classified F32.9 ; GERD (gastroesophageal reflux disease) K21.9 and History of long-term use of multiple prescription drugs Z92.29 [place] [address] [address] Jan, [place] [address] [address] Jan, Well woman exam Z01.419 ; BMI 45.0-49.9, adult Z68.42 ; Family history of diabetes mellitus Z83.3 and Chronic pain G89.29 [place] [address] [address] December, Chronic pain G89.29 ; Essential hyperten homar I10 ; Depressive disorder, not elsewhere classified F32.9 ; GERD (gastroesophageal reflux disease) K21.9 ; 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 ; History of long-term use of multiple prescription drugs Z92.29 and Obesity E66.9 [place] [address] [address] Oct, [place] [address] [place] [address] Oct, Well woman exam Z01.419 ; BMI [...] smear Z12.4 and No natural teeth K00.0 [place] [address] [address] Oct, [address] [address] Sep, Chronic pain G89.29 ; Essential hyperten homar I10 ; GERD (gastroesophageal reflux disease) K21.9 ; 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 ; Skin infection L08.9 and History of long-term use of multiple prescription drugs Z92.29 [place] [address] [address] Aug, [place] [address] [address] Jul, [place] [address] [address] Jul, [place] [address] [address] Jul, Upper respiratory infection J06.9 [place] [address] [address] Jul, Depressive disorder, not elsewhere class ified F32.[address] [address] Jul, Chronic pain 338.29 [place] [address] [address] Jul, Chronic pain G89.29 [place] [address] [address] Jun, Poison josep L23.7 [place] [address] [address] Jun, Allergic contact dermatitis due to plant s, except food L23.7 [place] [address] [address] Jun, Essential hypertension I10 ; Chronic zane n G89.29 ; GERD (gastroesophageal reflux disease) K21.9 and Numbness and tingling in hands R20.2 [place] [address] [address] May, [place] [address] [address] Apr, [place] [address] [address] Mar, [place] [address] [address] Feb, Abdominal pain, left lateral 789.09 and Constipation 564.[address] [address] Feb, Depressive disorder, not elsewhere class ified 311 and No condition on [place] II V71.09 [place] [address] [address] Feb, Spider bite 989.5 and Depression 311 [place] [address] [address] Feb, [place] [address] [address] Feb, Chronic pain 338.29 ; 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 and GERD (gastroesophageal reflux disease) 530.81 [facility] [address] [place] [id number] [place] [address] 15 Jan, 2015 Insect bites 919.4 [facility] [address] [address] 08 Jan, 2015 [facility] [address] [address] December, Skin infection, bacterial 686.9 ; Conjun ctivitis 372.30 and Insect bites 919.4 [facility] [address] [address] December, Chronic pain 338.29 ; 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 ; Skin infection, bacterial 686.9 and Conjunctivitis 372.30 [facility] [address] [place] [id number] [place] [address] December, [facility] [address] [address] Nov, [facility] [address] [address] Nov, [facility] [address] [address] Oct, [facility] [address] [address] Oct, [facility] [address] [address] Sep, [facility] [address] [address] Sep, [facility] [address] [address] Aug, [facility] [address] [address] Aug, [facility] [address] [address] Aug, [facility] [address] [address] 05 Aug, 2014 [facility] [address] [facility] [id number] [place] [address] 30 Jul, 2014 [facility] [address] [id number] [place] [address] Jul, [facility] [address] [id number] [place] [address] Jul, [facility] [address] [id number] [place] [address] Jul, [facility] [address] [id number] [place] [address] Jul, [facility] [address] [id number] [place] [address] Jul, [facility] [address] [id number] [place] [address] Jul, [facility] [address] [id number] [place] [address] Jul, [facility] [address] [id number] [place] [address] Jul, [facility] [address] [id number] [place] [address] Jun, [facility] [address] [id number] [place] [address] Jun, [facility] [address] [id number] [place] [address] Jun, [facility] [address] [id number] [place] [address] Jun, [facility] [address] [id number] [place] [address] Jun, [facility] [address] [id number] [place] [address] Jun, [facility] [address] [id number] [place] [address] Jun, [facility] [address] [id number] [place] [address] Jun, [facility] [address] [id number] [place] [address] May, [facility] [address] [id number] [place] [address] May, [facility] [address] [id number] [place] [address] May, [facility] [address] [id number] [place] [address] May, [facility] [address] [id number] [place] [address] May, [facility] [address] [id number] [place] [address] 26 Apr, 2014 [facility] [address] [id number] [place] [address] 26 Apr, 2014 [facility] [address] [id number] [place] [address] 25 Apr, 2013 [facility] [address] [id number] [place] [address] 25 Apr, 2014 [facility] [address] [id number] [place] [address] 18 Apr, 2014 [facility] [address] [id number] [place] [address] 18 Apr, 2013 [facility] [address] [id number] [place] [address] 18 Apr, 2013 [facility] [address] [id number] [place] [address] 18 Apr, 2013 [facility] [address] [id number] [place] [address] Apr, 2013 [facility] [address] [id number] [place] [address] 04 Apr, 2013 [facility] [address] [id number] [place] [address] Mar, [facility] [address] [id number] [place] [address] Mar, [facility] [address] [facility] [id number] [place] [address] Mar, [facility] [address] [facility] [id number] [place] [address] Mar, [facility] [address] [id number] [place] [address] Mar, [facility] [address] [facility] [id number] [place] [address] Mar, [facility] [address] [id number] [place] [address] Feb, [facility] [address] [id number] [place] [address] Feb, [facility] [address] [id number] [place] [address] Jan, [facility] [address] [id number] [place] [address] Jan, [facility] [address] [id number] [place] [address] Jan, [facility] [address] [id number] [place] [address] Jan, [facility] [address] [id number] [place] [address] December, [facility] [address] [id number] [place] [address] December, [facility] [address] [id number] [place] [address] December, [facility] [address] [id number] [place] [address] December, [facility] [address] [id number] [place] [address] December, [facility] [address] [id number] [place] [address] December, [facility] [address] [facility] [id number] [place] [address] December, [facility] [address] [id number] [place] [address] December, [facility] [address] [id number] [place] [address] December, [facility] [address] [id number] [place] [address] Nov, [facility] [address] [id number] [place] [address] Nov, [facility] [address] [id number] [place] [address] Nov, [facility] [address] [id number] [place] [address] Nov, [facility] [address] [id number] [place] [address] Nov, [facility] [address] [id number] [place] [address] Nov, [facility] [address] [id number] [place] [address] Nov, [facility] [address] [id number] [place] [address] Nov, [facility] [address] [id number] [place] [address] Nov, [facility] [address] [id number] [place] [address] Nov, [facility] [address] [id number] [place] [address] Oct, [facility] [address] [id number] [place] [address] Oct, [facility] [address] [id number] [place] [address] Sep, [facility] [address] [id number] [place] [address] Sep, [facility] [address] [id number] [place] [address] Aug, [facility] [address] [id number] [place] [address] Aug, [facility] [address] [id number] [place] [address] Aug, [facility] [address] [id number] [place] [address] Aug, [facility] [address] [id number] [place] [address] Jul, [facility] [address] [id number] [place] [address] Jul, [facility] [place] [facility] [id number] [place] [address] Jul, [facility] [place] [facility] [address] [id number] [place] [address] Jul, [facility] [place] [facility] [address] [id number] [place] [address] Jun, [facility] [place] [facility] [id number] [place] [address] Jun, [facility] [place] [facility] [address] [id number] [place] [address] May, [facility] [place] [facility] [address] [id number] [place] [address] May, [facility] [place] [facility] [address] [id number] [place] [address] May, [facility] [place] [facility] [id number] [place] [address] May, [facility] [place] [facility] [address] [id number] [place] [address] May, [facility] [place] [facility] [id number] [place] [address] May, [facility] [place] [facility] [address] [id number] [place] [address] 30 Apr, 2013 [facility] [place] [facility] [address] [id number] [place] [address] Apr, [facility] [place] [facility] [address] [id number] [place] [address] Apr, [facility] [place] [facility] [address] [id number] [place] [address] Feb, [facility] [place] [facility] [address] [facility] [id number] [place] [address] Jan, [facility] [place] [facility] [address] [id number] [place] [address] Jan, [facility] [place] [facility] [address] [id number] [place] [address] Jan, [facility] [place] [facility] [address] [id number] [place] [address] Jan, [facility] [place] [facility] [address] [id number] [place] [address] December, [facility] [place] [facility] [address] [id number] [place] [address] December, [facility] [place] [facility] [address] [id number] [place] [address] 24 Nov, 2012 [facility] [place] [facility] [address] [id number] [place] [address] Nov, [facility] [place] [facility] [address] [id number] [place] [address] Nov, [facility] [place] [facility] [address] [id number] [place] [address] Nov, [facility] [place] [facility] [address] [id number] [place] [address] Nov, [facility] [place] [facility] [address] [id number] [place] [address] Nov, [facility] [place] [facility] [address] [id number] [place] [address] 03 Nov, 2012 [facility] [place] [facility] [address] [facility] [id number] [place] [address] 27 Oct, 2012 [facility] [place] [facility] [address] [id number] [place] [address] 18 Oct, 2012 [facility] [place] [facility] [address] [id number] [place] [address] 14 Oct, 2012 [facility] [place] [facility] [address] [id number] [place] [address] 13 Oct, 2012 [facility] [place] [facility] [address] [id number] [place] [address] 12 Oct, 2012 [facility] [address] [id number] [place] [address] 11 Oct, 2012 [facility] [address] [id number] [place] [address] 08 Oct, 2012 [facility] [address] [id number] [place] [address] 20 Sep, 2012 [facility] [address] [id number] [place] [address] Sep, [facility] [address] [id number] [place] [address] Aug, [facility] [address] [id number] [place] [address] Aug, [facility] [address] [id number] [place] [address] Jul, [facility] [address] [id number] [place] [address] Jul, [facility] [address] [id number] [place] [address] Jul, [facility] [address] [id number] [place] [address] Jul, [facility] [address] [id number] [place] [address] Jul, [facility] [address] [id number] [place] [address] Jul, [facility] [address] [id number] [place] [address] Jul, [facility] [address] [id number] [place] [address] Jul, [facility] [address] [id number] [place] [address] Jun, [facility] [address] [id number] [place] [address] Jun, IMMUNIZATIONS No Known Immunizations SOCIAL HISTORY Never Assessed REASON FOR VISIT PLAN OF CARE VITAL SIGNS Height 62 in 2013-11-11 Weight 253.5 lbs 2013-11-11 Temperature 98.1 degrees Fahrenheit 2013-11-11 Heart Rate 80 bpm 2013-11-11 Respiratory Rate 18 2013-11-11 Blood pressure systolic 128 mmHg 2013-11-11 Blood pressure diastolic 76 mmHg 2013-11-11 MEDICATIONS Unknown Medications RESULTS No Results PROCEDURES Procedure Date Ordered Result Body Site COMPREHEN METABOLIC PANEL November 11, 2013 VENIPUNCT, ROUTINE* November 11, 2013 INSTRUCTIONS MEDICATIONS ADMINISTERED No Known Medications [...]
--- OUTSIDE RECORDS SUMMARY | 2020-02-11 03:12 | XMS REPORT ---
Author Author АНДРЕЙ Madelineshawn LEONG Organization [facility] Address [address] [place] [address] Care Team Providers Care Vehicle Glass Technician Name Role Phone KWESIKennedy DANG Unavailable PROBLEMS Type Condition ICD9-CM Code RER56-EF Code Onset Dates Condition S tatus SNOMED Code Problem Numbness and tingling in hands R20.2 Active 646219479 Problem History of abnormal cervical Pap smear Z87.898 Active 365334640 Problem Stasis dermatitis of both legs I87.2 Active 34801910 Problem Pre-diabetes R73.09 Active 9042007 02 Problem Morbid obesity due to excess calories E66.01 Active 200763532 Problem GERD (gastroesophageal reflux disease) K21.9 Active 169654812 Problem Mood disorder F39 Active 151809 05 Problem Chronic pain G89.29 Active 9466334 1 Problem BMI 45.0-49.9, adult Z68.42 Active 466944626 Problem Essential hypertension I10 Active 97719028 Problem Primary insomnia F51.01 Active 397 2004 Problem Chronic recurrent major depressive disorder F33.9 Active 1774700 ALLERGIES No Information ENCOUNTERS Encounter Location Date Diagnosis [facility] [address] [address] 10 Sep, 2019 BMI 45.0-49.9, adult Z68.42 and Chronic pain G89.29 [facility] [address] [address] 10 Sep, 2019 Essential hypertension I10 [facility] [address] [address] 05 Sep, 2019 Tinea corporis B35.4 [facility] [address] [address] Aug, Acute non-recurrent maxillary sinusitis J01.00 and Tinea corporis B35.4 [place] [address] [address] 14 Aug, 2019 BMI 45.0-49.9, adult Z68.42 and Chronic pain G89.29 [place] [address] [address] 17 Jul, 2019 BMI 45.0-49.9, adult Z68.42 and Chronic pain G89.29 [place] [address] [address] Jul, Pre-diabetes R73.[address] [address] Jun, BMI 45.0-49.9, adult Z68.42 and Chronic pain G89.29 [place] [address] [address] Jun, Acute non-recurrent maxillary sinusitis J01.00 [place] [address] [address] May, Chronic pain G89.29 and BMI 45.0-49.9, a dult Z68.42 [place] [address] [address] Apr, Chronic pain G89.29 and BMI 45.0-49.9, a dult Z68.42 [place] [address] [address] Apr, Mood disorder F39 [place] [address] [address] Mar, Chronic pain G89.29 and BMI 45.0-49.9, a dult Z68.42 [place] [address] [address] Mar, Morbid obesity E66.01 ; Chronic recurren t major depressive disorder F33.9 ; Morbid obesity due to excess calories E66.01 and High risk medication use Z79.899 [place] [address] [address] Mar, Chronic pain G89.29 and BMI 45.0-49.9, a dult Z68.42 [place] [address] [address] Feb, [place] [address] [address] Feb, Chronic pain G89.29 and BMI 45.0-49.9, a dult Z68.42 [place] [address] [address] Jan, [place] [address] [address] Jan, Chronic pain G89.29 and BMI 45.0-49.9, a dult Z68.42 [place] [address] [address] Jan, [place] [address] [address] December, Chronic pain G89.29 and BMI 45.0-49.9, a dult Z68.42 [place] [address] [address] Nov, Morbid obesity E66.01 and Cellulitis of leg, left L03.116 [place] [address] [address] 15 Nov, 2018 Cellulitis of left lower extremity L03.1 16 and Morbid obesity E66.01 [facility] [address] [facility] [id number] [address] [place] [address] Nov, [place] [address] [address] Nov, Morbid obesity E66.01 and Cellulitis of left lower extremity L03.116 [place] [address] [address] Nov, Chronic pain G89.29 and BMI 45.0-49.9, a dult Z68.42 [place] [address] [address] Oct, BMI 45.0-49.9, adult Z68.42 and Chronic pain G89.29 [place] [address] [address] 14 Sep, 2018 BMI 45.0-49.9, adult Z68.42 and Chronic pain G89.29 [place] [address] [address] Sep, BMI 45.0-49.9, adult Z68.42 and Essentia l hypertension I10 [place] [address] [address] Aug, BMI 45.0-49.9, adult Z68.42 ; Chronic pa in G89.29 ; Essential hypertension I10 and Primary insomnia F51.01 [place] [address] [address] Aug, Chronic pain G89.29 [place] [address] [address] Jul, Chronic pain G89.29 [place] [address] [address] Jun, Chronic pain G89.29 [place] [address] [address] May, Chronic pain G89.29 [place] [address] [address] May, BMI 40.0-44.9, adult Z68.41 ; Other clay carman david pain G89.29 ; Pain in right hip M25.551 and Acute pain of left knee M25.562 [place] [address] [address] May, Chronic pain G89.29 [facility] [address] [address] Apr, Chronic pain G89.29 [facility] [address] [address] Mar, Poison josep L23.7 [facility] [address] [address] Mar, Chronic pain G89.29 [facility] [address] [address] Feb, Chronic pain G89.29 [place] [address] [address] Feb, Poison josep L23.7 [place] [address] [address] Jan, Chronic pain G89.29 [place] [address] [address] December, Chronic pain G89.29 [place] [address] [address] Nov, Long-term use of high-risk medication Z7 9.899 [place] [address] [address] Nov, Chronic pain G89.29 [place] [address] [address] Oct, Chronic pain G89.29 ; Pre-diabetes R73.0 9 ; Long-term use of high-risk medication Z79.899 ; Allergic rhinitis, unspecified seasonality, unspecified trigger J30.9 ; BMI 45.0-49.9, adult Z68.42 and Essential hypertension I10 [place] [address] [address] Oct, Chronic pain G89.29 [place] [address] [address] Sep, Chronic pain G89.29 [facility] [address] [address] Aug, Chronic pain G89.29 [facility] [address] [address] Jul, [facility] [address] [address] Jul, [facility] [address] [address] Jun, Chronic pain G89.29 ; BMI 45.0-49.9, ambreen lt Z68.42 ; Pre-diabetes R73.09 ; Essential hypertension I10 ; GERD (gastroesophageal reflux disease) K21.9 ; Yeast dermatitis B37.2 ; Dysuria R30.0 ; Acute non-recurrent maxillary sinusitis J01.00 and Acute cystitis with hematuria N30.01 [place] [address] [address] Jun, Chronic pain G89.29 [place] [address] [address] Jun, Acute non-recurrent maxillary sinusitis J01.00 and BMI 45.0-49.9, adult Z68.42 [place] [address] [address] May, [place] [address] [address] May, Chronic pain G89.29 [facility] [address] [address] May, [place] [address] [address] Apr, Chronic pain G89.29 [place] [address] [address] Mar, [place] [address] [address] Mar, Essential hypertension I10 and Pre-diabe sondra R73.09 [place] [address] [address] 15 Mar, 2017 Chronic pain G89.29 ; Essential hyperten homar I10 ; Depressive disorder, not elsewhere classified F32.9 ; GERD (gastroesophageal reflux disease) K21.9 ; Pre-diabetes R73.09 ; Stasis dermatitis of both legs I87.2 and Acute non-recurrent maxillary sinusitis J01.00 [place] [address] [address] 11 Mar, 2017 Chronic pain G89.[address] [address] 07 Mar, 2017 Achilles tendinitis of right lower extre mity M76.61 and Tinea corporis B35.[address] [address] 17 Feb, 2017 Yeast dermatitis B37.[address] [address] 14 Feb, 2017 Candidal intertrigo B37.2 and Acute righ t ankle pain M25.[address] [address] 12 Feb, 2017 Chronic pain G89.[address] [address] 16 Jan, [address] [address] Jan, Chronic pain G89.[address] [address] December, Chronic pain G89.29 ; Essential hyperten homar I10 ; Depressive disorder, not elsewhere classified F32.9 ; GERD (gastroesophageal reflux disease) K21.9 ; Pre-diabetes R73.09 ; Screening breast examination Z12.39 ; Stasis dermatitis of both legs I87.2 and Yeast dermatitis B37.[address] [place] [address] Nov, Chronic pain G89.29 [place] [address] [address] Nov, Cellulitis of left lower extremity L03.1 16 [place] [address] [address] 17 Nov, 2016 Cellulitis of left lower extremity L03.1 16 [place] [address] [address] Oct, Yeast dermatitis B37.2 [place] [address] [address] Oct, Chronic pain G89.29 [place] [address] [address] Sep, Chronic pain G89.29 ; Essential hyperten homar I10 ; Depressive disorder, not elsewhere classified F32.9 and GERD (gastroesophageal reflux disease) K21.9 [place] [address] [address] Aug, Chronic pain G89.29 [place] [address] [address] Aug, Cough R05 ; Rash R21 and Rash and nonspe cific skin eruption R21 [place] [address] [address] Jul, Chronic pain G89.29 [place] [address] [address] Jun, Chronic pain G89.29 ; Bronchitis J40 ; E ssential hypertension I10 ; Depressive disorder, not elsewhere classified F32.9 ; GERD (gastroesophageal reflux disease) K21.9 and History of long-term use of multiple prescription drugs Z92.29 [place] [address] [address] Jun, Bronchitis J40 ; Chills R68.83 and Sore throat J02.9 [place] [address] [address] May, [facility] [address] [address] Apr, [facility] [address] [facility] [id number] [address] [place] [address] Apr, Acute mucoid otitis media of both ears H65.113 [place] [address] [address] 07 Apr, 2016 Yeast dermatitis B37.2 and Hematuria R31 .9 [place] [address] [address] Mar, [place] [address] [address] Mar, [place] [address] [address] Feb, Left anterior knee pain M25.562 [place] [address] [address] Feb, Chronic pain G89.29 ; Essential hyperten homar I10 ; Depressive disorder, not elsewhere classified F32.9 ; GERD (gastroesophageal reflux disease) K21.9 and History of long-term use of multiple prescription drugs Z92.29 [place] [address] [address] Jan, [place] [address] [address] Jan, Well woman exam Z01.419 ; BMI 45.0-49.9, adult Z68.42 ; Family history of diabetes mellitus Z83.3 and Chronic pain G89.29 [place] [address] [address] December, Chronic pain G89.29 ; Essential hyperten homar I10 ; Depressive disorder, not elsewhere classified F32.9 ; GERD (gastroesophageal reflux disease) K21.9 ; 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 ; History of long-term use of multiple prescription drugs Z92.29 and Obesity E66.9 [place] [address] [address] Oct, [place] [address] [place] [address] Oct, Well woman exam Z01.419 ; BMI [...] smear Z12.4 and No natural teeth K00.0 [place] [address] [address] Oct, [address] [address] Sep, Chronic pain G89.29 ; Essential hyperten homar I10 ; GERD (gastroesophageal reflux disease) K21.9 ; 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 ; Skin infection L08.9 and History of long-term use of multiple prescription drugs Z92.29 [place] [address] [address] Aug, [place] [address] [address] Jul, [place] [address] [address] Jul, [place] [address] [address] Jul, Upper respiratory infection J06.9 [place] [address] [address] Jul, Depressive disorder, not elsewhere class ified F32.[address] [address] Jul, Chronic pain 338.29 [place] [address] [address] Jul, Chronic pain G89.29 [place] [address] [address] Jun, Poison josep L23.7 [place] [address] [address] Jun, Allergic contact dermatitis due to plant s, except food L23.7 [place] [address] [address] Jun, Essential hypertension I10 ; Chronic zane n G89.29 ; GERD (gastroesophageal reflux disease) K21.9 and Numbness and tingling in hands R20.2 [place] [address] [address] May, [place] [address] [address] Apr, [place] [address] [address] Mar, [place] [address] [address] Feb, Abdominal pain, left lateral 789.09 and Constipation 564.[address] [address] Feb, Depressive disorder, not elsewhere class ified 311 and No condition on [place] II V71.09 [place] [address] [address] Feb, Spider bite 989.5 and Depression 311 [place] [address] [address] Feb, [place] [address] [address] Feb, Chronic pain 338.29 ; 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 and GERD (gastroesophageal reflux disease) 530.81 [facility] [address] [place] [id number] [place] [address] 15 Jan, 2015 Insect bites 919.4 [facility] [address] [address] 08 Jan, 2015 [facility] [address] [address] December, Skin infection, bacterial 686.9 ; Conjun ctivitis 372.30 and Insect bites 919.4 [facility] [address] [address] December, Chronic pain 338.29 ; 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 ; Skin infection, bacterial 686.9 and Conjunctivitis 372.30 [facility] [address] [place] [id number] [place] [address] December, [facility] [address] [address] Nov, [facility] [address] [address] Nov, [facility] [address] [address] Oct, [facility] [address] [address] Oct, [facility] [address] [address] Sep, [facility] [address] [address] Sep, [facility] [address] [address] Aug, [facility] [address] [address] Aug, [facility] [address] [address] Aug, [facility] [address] [address] 05 Aug, 2014 [facility] [address] [facility] [id number] [place] [address] 30 Jul, 2014 [facility] [address] [id number] [place] [address] Jul, [facility] [address] [id number] [place] [address] Jul, [facility] [address] [id number] [place] [address] Jul, [facility] [address] [id number] [place] [address] Jul, [facility] [address] [id number] [place] [address] Jul, [facility] [address] [id number] [place] [address] Jul, [facility] [address] [id number] [place] [address] Jul, [facility] [address] [id number] [place] [address] Jul, [facility] [address] [id number] [place] [address] Jun, [facility] [address] [id number] [place] [address] Jun, [facility] [address] [id number] [place] [address] Jun, [facility] [address] [id number] [place] [address] Jun, [facility] [address] [id number] [place] [address] Jun, [facility] [address] [id number] [place] [address] Jun, [facility] [address] [id number] [place] [address] Jun, [facility] [address] [id number] [place] [address] Jun, [facility] [address] [id number] [place] [address] May, [facility] [address] [id number] [place] [address] May, [facility] [address] [id number] [place] [address] May, [facility] [address] [id number] [place] [address] May, [facility] [address] [id number] [place] [address] May, [facility] [address] [id number] [place] [address] 26 Apr, 2014 [facility] [address] [id number] [place] [address] 26 Apr, 2014 [facility] [address] [id number] [place] [address] 25 Apr, 2013 [facility] [address] [id number] [place] [address] 25 Apr, 2014 [facility] [address] [id number] [place] [address] 18 Apr, 2014 [facility] [address] [id number] [place] [address] 18 Apr, 2013 [facility] [address] [id number] [place] [address] 18 Apr, 2013 [facility] [address] [id number] [place] [address] 18 Apr, 2013 [facility] [address] [id number] [place] [address] Apr, 2013 [facility] [address] [id number] [place] [address] 04 Apr, 2013 [facility] [address] [id number] [place] [address] Mar, [facility] [address] [id number] [place] [address] Mar, [facility] [address] [facility] [id number] [place] [address] Mar, [facility] [address] [facility] [id number] [place] [address] Mar, [facility] [address] [id number] [place] [address] Mar, [facility] [address] [facility] [id number] [place] [address] Mar, [facility] [address] [id number] [place] [address] Feb, [facility] [address] [id number] [place] [address] Feb, [facility] [address] [id number] [place] [address] Jan, [facility] [address] [id number] [place] [address] Jan, [facility] [address] [id number] [place] [address] Jan, [facility] [address] [id number] [place] [address] Jan, [facility] [address] [id number] [place] [address] December, [facility] [address] [id number] [place] [address] December, [facility] [address] [id number] [place] [address] December, [facility] [address] [id number] [place] [address] December, [facility] [address] [id number] [place] [address] December, [facility] [address] [id number] [place] [address] December, [facility] [address] [facility] [id number] [place] [address] December, [facility] [address] [id number] [place] [address] December, [facility] [address] [id number] [place] [address] December, [facility] [address] [id number] [place] [address] Nov, [facility] [address] [id number] [place] [address] Nov, [facility] [address] [id number] [place] [address] Nov, [facility] [address] [id number] [place] [address] Nov, [facility] [address] [id number] [place] [address] Nov, [facility] [address] [id number] [place] [address] Nov, [facility] [address] [id number] [place] [address] Nov, [facility] [address] [id number] [place] [address] Nov, [facility] [address] [id number] [place] [address] Nov, [facility] [address] [id number] [place] [address] Nov, [facility] [address] [id number] [place] [address] Oct, [facility] [address] [id number] [place] [address] Oct, [facility] [address] [id number] [place] [address] Sep, [facility] [address] [id number] [place] [address] Sep, [facility] [address] [id number] [place] [address] Aug, [facility] [address] [id number] [place] [address] Aug, [facility] [address] [id number] [place] [address] Aug, [facility] [address] [id number] [place] [address] Aug, [facility] [address] [id number] [place] [address] Jul, [facility] [address] [id number] [place] [address] Jul, [facility] [id number] [place] [address] Jul, [facility] [address] [id number] [place] [address] Jul, [facility] [address] [id number] [place] [address] Jun, [facility] [id number] [place] [address] Jun, [facility] [address] [id number] [place] [address] May, [facility] [address] [id number] [place] [address] May, [facility] [address] [id number] [place] [address] May, [facility] [id number] [place] [address] May, [facility] [address] [id number] [place] [address] May, [facility] [id number] [place] [address] May, [facility] [address] [id number] [facility] [place] [address] 30 Apr, 2013 [facility] [address] [id number] [facility] [place] [address] Apr, [facility] [address] [id number] [place] [address] Apr, [facility] [address] [id number] [facility] [place] [address] Feb, [facility] [address] [facility] [id number] [facility] [place] [address] Jan, [facility] [address] [id number] [place] [address] Jan, [facility] [address] [id number] [place] [address] Jan, [facility] [address] [id number] [place] [address] Jan, [facility] [address] [id number] [place] [address] December, [facility] [address] [id number] [place] [address] December, [facility] [address] [facility] [id number] [place] [address] 24 Nov, 2012 [facility] [address] [id number] [place] [address] Nov, [facility] [address] [id number] [place] [address] Nov, [facility] [address] [id number] [place] [address] Nov, [facility] [address] [id number] [place] [address] Nov, [facility] [address] [id number] [place] [address] Nov, [facility] [address] [id number] [place] [address] 03 Nov, 2012 [facility] [address] [facility] [id number] [place] [address] 27 Oct, 2012 [facility] [address] [id number] [place] [address] 18 Oct, 2012 [facility] [address] [id number] [place] [address] 14 Oct, 2012 [facility] [address] [id number] [place] [address] 13 Oct, 2012 [facility] [address] [id number] [place] [address] 12 Oct, 2012 [facility] [address] [id number] [place] [address] 11 Oct, 2012 [facility] [address] [id number] [place] [address] 08 Oct, 2012 [facility] [address] [id number] [place] [address] 20 Sep, 2012 [facility] [address] [id number] [place] [address] Sep, [facility] [address] [id number] [place] [address] Aug, [facility] [address] [id number] [place] [address] Aug, [facility] [address] [id number] [place] [address] Jul, [facility] [address] [id number] [place] [address] Jul, [facility] [address] [id number] [place] [address] Jul, [facility] [address] [id number] [place] [address] Jul, [facility] [address] [id number] [place] [address] Jul, [facility] [address] [id number] [place] [address] Jul, [facility] [address] [id number] [place] [address] Jul, [facility] [address] [id number] [place] [address] Jul, [facility] [address] [id number] [place] [address] Jun, [facility] [address] [id number] [place] [address] Jun, IMMUNIZATIONS No Known Immunizations SOCIAL HISTORY [...]
--- OUTSIDE RECORDS SUMMARY | 2020-02-11 03:13 | XMS REPORT ---
Author Author АНДРЕЙ Madelineshawn LEONG Organization [facility] Address [address] [place] [address] Care Team Providers Care Architectural Associate Name Role Phone KWESIKennedy DANG Unavailable PROBLEMS Type Condition ICD9-CM Code KPX12-GJ Code Onset Dates Condition S tatus SNOMED Code Problem Numbness and tingling in hands R20.2 Active 791491736 Problem History of abnormal cervical Pap smear Z87.898 Active 593162857 Problem Stasis dermatitis of both legs I87.2 Active 01947192 Problem Pre-diabetes R73.09 Active 2251915 02 Problem Morbid obesity due to excess calories E66.01 Active 108280274 Problem GERD (gastroesophageal reflux disease) K21.9 Active 678712500 Problem Mood disorder F39 Active 511920 05 Problem Chronic pain G89.29 Active 9161639 1 Problem BMI 45.0-49.9, adult Z68.42 Active 730969755 Problem Essential hypertension I10 Active 08128399 Problem Primary insomnia F51.01 Active 397 2004 Problem Chronic recurrent major depressive disorder F33.9 Active 5208419 ALLERGIES No Information ENCOUNTERS Encounter Location Date Diagnosis [place] [address] [address] 20 Aug, 2019 Acute non-recurrent maxillary sinusitis J01.00 and Tinea corporis B35.[address] [address] 14 Aug, 2019 BMI 45.0-49.9, adult Z68.42 and Chronic pain G89.[address] [address] Jul, BMI 45.0-49.9, adult Z68.42 and Chronic pain G89.[address] [address] Jul, Pre-diabetes R73.09 [place] [address] [address] Jun, BMI 45.0-49.9, adult Z68.42 and Chronic pain G89.29 [place] [address] [address] Jun, Acute non-recurrent maxillary sinusitis J01.00 [place] [address] [address] May, Chronic pain G89.29 and BMI 45.0-49.9, a dult Z68.42 [place] [address] [address] Apr, Chronic pain G89.29 and BMI 45.0-49.9, a dult Z68.42 [place] [address] [address] Apr, Mood disorder F39 [place] [address] [address] Mar, Chronic pain G89.29 and BMI 45.0-49.9, a dult Z68.42 [place] [address] [address] Mar, Morbid obesity E66.01 ; Chronic recurren t major depressive disorder F33.9 ; Morbid obesity due to excess calories E66.01 and High risk medication use Z79.899 [place] [address] [address] Mar, Chronic pain G89.29 and BMI 45.0-49.9, a dult Z68.42 [place] [address] [address] Feb, [place] [address] [address] Feb, Chronic pain G89.29 and BMI 45.0-49.9, a dult Z68.42 [place] [address] [address] 11 Jan, 2019 [place] [address] [address] 10 Jan, 2019 Chronic pain G89.29 and BMI 45.0-49.9, a dult Z68.42 [place] [address] [address] Jan, [place] [address] [address] December, Chronic pain G89.29 and BMI 45.0-49.9, a dult Z68.42 [place] [address] [address] 24 Nov, 2018 Morbid obesity E66.01 and Cellulitis of leg, left L03.116 [place] [address] [address] 15 Nov, 2018 Cellulitis of left lower extremity L03.1 16 and Morbid obesity E66.01 [facility] [address] [facility] [id number] [address] [place] [address] Nov, [place] [address] [address] Nov, Morbid obesity E66.01 and Cellulitis of left lower extremity L03.116 [place] [address] [address] Nov, Chronic pain G89.29 and BMI 45.0-49.9, a dult Z68.42 [place] [address] [address] Oct, BMI 45.0-49.9, adult Z68.42 and Chronic pain G89.29 [place] [address] [address] 14 Sep, 2018 BMI 45.0-49.9, adult Z68.42 and Chronic pain G89.29 [place] [address] [address] Sep, BMI 45.0-49.9, adult Z68.42 and Essentia l hypertension I10 [place] [address] [address] Aug, BMI 45.0-49.9, adult Z68.42 ; Chronic pa in G89.29 ; Essential hypertension I10 and Primary insomnia F51.01 [place] [address] [address] Aug, Chronic pain G89.29 [place] [address] [address] Jul, Chronic pain G89.29 [place] [address] [address] Jun, Chronic pain G89.29 [place] [address] [address] May, Chronic pain G89.29 [place] [address] [address] May, BMI 40.0-44.9, adult Z68.41 ; 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 ; Pain in right hip M25.551 and Acute pain of left knee M25.562 [place] [address] [address] May, Chronic pain G89.29 [place] [address] [address] Apr, Chronic pain G89.29 [place] [address] [address] Mar, Poison josep L23.7 [place] [address] [address] Mar, Chronic pain G89.29 [place] [address] [address] Feb, Chronic pain G89.29 [place] [address] [address] Feb, Poison josep L23.7 [place] [address] [address] Jan, Chronic pain G89.29 [place] [address] [address] December, Chronic pain G89.29 [place] [address] [address] Nov, Long-term use of high-risk medication Z7 9.899 [place] [address] [address] Nov, Chronic pain G89.29 [place] [address] [address] Oct, Chronic pain G89.29 ; Pre-diabetes R73.0 9 ; Long-term use of high-risk medication Z79.899 ; Allergic rhinitis, unspecified seasonality, unspecified trigger J30.9 ; BMI 45.0-49.9, adult Z68.42 and Essential hypertension I10 [place] [address] [address] Oct, Chronic pain G89.29 [place] [address] [address] Sep, Chronic pain G89.29 [place] [address] [address] Aug, Chronic pain G89.29 [place] [address] [address] Jul, [place] [address] [address] Jul, [place] [address] [address] Jun, Chronic pain G89.29 ; BMI 45.0-49.9, ambreen lt Z68.42 ; Pre-diabetes R73.09 ; Essential hypertension I10 ; GERD (gastroesophageal reflux disease) K21.9 ; Yeast dermatitis B37.2 ; Dysuria R30.0 ; Acute non-recurrent maxillary sinusitis J01.00 and Acute cystitis with hematuria N30.01 [place] [address] [address] Jun, Chronic pain G89.29 [place] [address] [address] Jun, Acute non-recurrent maxillary sinusitis J01.00 and BMI 45.0-49.9, adult Z68.42 [place] [address] [address] May, [place] [address] [address] May, Chronic pain G89.29 [place] [address] [address] May, [place] [address] [address] Apr, Chronic pain G89.29 [place] [address] [address] Mar, [place] [address] [address] Mar, Essential hypertension I10 and Pre-diabe sondra R73.09 [place] [address] [address] Mar, Chronic pain G89.29 ; Essential hyperten homar I10 ; Depressive disorder, not elsewhere classified F32.9 ; GERD (gastroesophageal reflux disease) K21.9 ; Pre-diabetes R73.09 ; Stasis dermatitis of both legs I87.2 and Acute non-recurrent maxillary sinusitis J01.00 [place] [address] [address] Mar, Chronic pain G89.29 [place] [address] [address] 07 Mar, 2017 Achilles tendinitis of right lower extre mity M76.61 and Tinea corporis B35.[address] [address] 17 Feb, 2017 Yeast dermatitis B37.[address] [address] Feb, Candidal intertrigo B37.2 and Acute righ t ankle pain M25.[address] [address] Feb, Chronic pain G89.[address] [address] Jan, [address] [address] Jan, Chronic pain G89.[address] [address] December, Chronic pain G89.29 ; Essential hyperten homar I10 ; Depressive disorder, not elsewhere classified F32.9 ; GERD (gastroesophageal reflux disease) K21.9 ; Pre-diabetes R73.09 ; Screening breast examination Z12.39 ; Stasis dermatitis of both legs I87.2 and Yeast dermatitis B37.2 [place] [address] [address] Nov, Chronic pain G89.[address] [address] Nov, Cellulitis of left lower extremity L03.[address] [address] 17 Nov, 2016 Cellulitis of left lower extremity L03.[address] [address] Oct, Yeast dermatitis B37.2 [place] [address] [address] Oct, Chronic pain G89.29 [place] [address] [address] Sep, Chronic pain G89.29 ; Essential hyperten homar I10 ; Depressive disorder, not elsewhere classified F32.9 and GERD (gastroesophageal reflux disease) K21.9 [place] [address] [address] Aug, Chronic pain G89.[address] [address] Aug, Cough R05 ; Rash R21 and Rash and nonspe cific skin eruption R21 [address] [address] Jul, Chronic pain G89.29 [place] [address] [address] Jun, Chronic pain G89.29 ; Bronchitis J40 ; E ssential hypertension I10 ; Depressive disorder, not elsewhere classified F32.9 ; GERD (gastroesophageal reflux disease) K21.9 and History of long-term use of multiple prescription drugs Z92.[address] [address] Jun, Bronchitis J40 ; Chills R68.83 and Sore throat J02.9 [place] [address] [address] May, [address] [address] Apr, [facility] [address] [facility] [id number] [address] [place] [address] 19 Apr, 2016 Acute mucoid otitis media of both ears H65.[address] [address] Apr, Yeast dermatitis B37.2 and Hematuria R31 .9 [place] [address] [address] Mar, [place] [address] [address] Mar, [place] [address] [address] Feb, Left anterior knee pain M25.562 [place] [address] [address] Feb, Chronic pain G89.29 ; Essential hyperten homar I10 ; Depressive disorder, not elsewhere classified F32.9 ; GERD (gastroesophageal reflux disease) K21.9 and History of long-term use of multiple prescription drugs Z92.29 [place] [address] [address] Jan, [place] [address] [address] Jan, Well woman exam Z01.419 ; BMI 45.0-49.9, adult Z68.42 ; Family history of diabetes mellitus Z83.3 and Chronic pain G89.29 [place] [address] [address] December, Chronic pain G89.29 ; Essential hyperten homar I10 ; Depressive disorder, not elsewhere classified F32.9 ; GERD (gastroesophageal reflux disease) K21.9 ; 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 ; History of long-term use of multiple prescription drugs Z92.29 and Obesity E66.9 [place] [address] [address] Oct, [place] [id number] Oct, Well woman exam Z01.419 ; BMI [...] smear Z12.4 and No natural teeth K00.0 [place] [id number] Oct, [place] [address] Sep, Chronic pain G89.29 ; Essential hyperten homar I10 ; GERD (gastroesophageal reflux disease) K21.9 ; 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 ; Skin infection L08.9 and History of long-term use of multiple prescription drugs Z92.[address] [address] Aug, [place] [id number] Jul, [address] [address] Jul, [address] [address] Jul, Upper respiratory infection J06.[address] [address] Jul, Depressive disorder, not elsewhere class ified F32.[address] [address] Jul, Chronic pain 338.[address] [address] Jul, Chronic pain G89.[address] [address] Jun, Poison josep L23.[address] [address] Jun, Allergic contact dermatitis due to plant s, except food L23.7 [place] [address] [address] Jun, Essential hypertension I10 ; Chronic zane n G89.29 ; GERD (gastroesophageal reflux disease) K21.9 and Numbness and tingling in hands R20.2 [place] [address] [address] May, [place] [address] [address] Apr, [place] [address] [address] Mar, [place] [address] [address] Feb, Abdominal pain, left lateral 789.09 and Constipation 564.[address] [address] Feb, Depressive disorder, not elsewhere class ified 311 and No condition on Surfside II V71.09 [place] [address] [address] Feb, Spider bite 989.5 and Depression 311 [place] [address] [address] Feb, [place] [address] [address] Feb, Chronic pain 338.29 ; 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 and GERD (gastroesophageal reflux disease) 530.81 [place] [address] [address] Jan, Insect bites 919.4 [place] [address] [address] Jan, [place] [address] [address] December, Skin infection, bacterial 686.9 ; Conjun ctivitis 372.30 and Insect bites 919.4 [facility] [address] [place] [id number] [place] [address] December, Chronic pain 338.29 ; 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 ; Skin infection, bacterial 686.9 and Conjunctivitis 372.30 [facility] [address] [place] [id number] [place] [address] December, [facility] [address] [place] [id number] [place] [address] Nov, [facility] [address] [place] [id number] [place] [address] Nov, [facility] [address] [address] Oct, [facility] [address] [place] [id number] [place] [address] Oct, [facility] [address] [place] [id number] [place] [address] Sep, [facility] [address] [place] [id number] [place] [address] Sep, [facility] [address] [address] Aug, [facility] [address] [place] [id number] [place] [address] Aug, [facility] [address] [place] [id number] [place] [address] Aug, [facility] [address] [place] [id number] [place] [address] Aug, [facility] [address] [place] [id number] [place] [address] Jul, [facility] [address] [place] [id number] [place] [address] Jul, [facility] [address] [place] [id number] [place] [address] Jul, [facility] [address] [place] [id number] [place] [address] 15 Jul, 2014 [facility] [address] [id number] [place] [address] Jul, [facility] [address] [id number] [place] [address] Jul, [facility] [address] [id number] [place] [address] Jul, [facility] [address] [id number] [place] [address] Jul, [facility] [address] [id number] [place] [address] Jul, [facility] [address] [id number] [place] [address] Jun, [facility] [address] [id number] [place] [address] Jun, [facility] [address] [id number] [place] [address] Jun, [facility] [address] [id number] [place] [address] Jun, [facility] [address] [id number] [place] [address] Jun, [facility] [address] [id number] [place] [address] Jun, [facility] [address] [id number] [place] [address] Jun, [facility] [address] [id number] [place] [address] Jun, [facility] [address] [id number] [place] [address] May, [facility] [address] [id number] [place] [address] May, [facility] [address] [id number] [place] [address] 16 May, 2014 [facility] [address] [id number] [place] [address] May, [facility] [address] [id number] [place] [address] May, [facility] [address] [id number] [place] [address] Apr, [facility] [address] [id number] [place] [address] Apr, [facility] [address] [id number] [place] [address] Apr, [facility] [address] [id number] [place] [address] Apr, [facility] [address] [id number] [place] [address] Apr, [facility] [address] [id number] [place] [address] Apr, [facility] [address] [id number] [place] [address] Apr, [facility] [address] [id number] [place] [address] Apr, [facility] [address] [id number] [place] [address] Apr, [facility] [address] [id number] [place] [address] Apr, [facility] [address] [id number] [place] [address] Mar, [facility] [address] [id number] [place] [address] Mar, [facility] [address] [id number] [place] [address] Mar, [facility] [address] [id number] [place] [address] Mar, [facility] [address] [id number] [place] [address] Mar, [facility] [address] [id number] [place] [address] Mar, [facility] [address] [id number] [place] [address] Feb, [facility] [address] [id number] [place] [address] Feb, [facility] [address] [id number] [place] [address] Jan, [facility] [address] [id number] [place] [address] Jan, [facility] [address] [id number] [place] [address] Jan, [facility] [address] [id number] [place] [address] Jan, [facility] [address] [id number] [place] [address] December, [facility] [address] [id number] [place] [address] December, [facility] [address] [id number] [place] [address] December, [facility] [address] [id number] [place] [address] December, [facility] [address] [id number] [place] [address] December, [facility] [address] [id number] [place] [address] December, [facility] [address] [id number] [place] [address] December, [facility] [address] [id number] [place] [address] December, [facility] [address] [id number] [place] [address] December, [facility] [address] [id number] [place] [address] Nov, [facility] [address] [facility] [id number] [place] [address] Nov, [facility] [address] [facility] [id number] [facility] [place] [address] Nov, [facility] [address] [id number] [place] [address] Nov, [facility] [address] [id number] [place] [address] Nov, [facility] [address] [facility] [id number] [facility] [place] [address] Nov, [facility] [address] [id number] [place] [address] Nov, [facility] [address] [id number] [place] [address] Nov, [facility] [address] [id number] [place] [address] Nov, [facility] [address] [id number] [place] [address] Nov, [facility] [address] [id number] [place] [address] Oct, [facility] [address] [id number] [place] [address] Oct, [facility] [address] [id number] [place] [address] Sep, [facility] [address] [facility] [id number] [place] [address] Sep, [facility] [address] [id number] [place] [address] Aug, [facility] [address] [id number] [place] [address] Aug, [facility] [address] [id number] [place] [address] Aug, [facility] [address] [id number] [place] [address] 16 Aug, 2013 [facility] [address] [id number] [place] [address] Jul, [facility] [address] [id number] [place] [address] Jul, [facility] [address] [id number] [place] [address] Jul, [facility] [address] [id number] [place] [address] Jul, [facility] [address] [id number] [place] [address] Jun, [facility] [address] [id number] [place] [address] Jun, [facility] [id number] [place] [address] May, [facility] [id number] [place] [address] May, [facility] [address] [id number] [place] [address] May, [facility] [address] [id number] [place] [address] May, [facility] [id number] [place] [address] May, [facility] [address] [id number] [place] [address] May, [facility] [address] [id number] [place] [address] 30 Apr, 2013 [facility] [id number] [place] [address] Apr, [facility] [address] [id number] [place] [address] Apr, [facility] [id number] [place] [address] Feb, [facility] [address] [id number] [place] [address] Jan, [facility] [address] [id number] [place] [address] Jan, [facility] [address] [id number] [place] [address] 17 Jan, 2013 [facility] [address] [id number] [place] [address] Jan, [facility] [address] [facility] [id number] [place] [address] December, [facility] [address] [id number] [place] [address] December, [facility] [address] [id number] [place] [address] 24 Nov, 2012 [facility] [address] [id number] [place] [address] Nov, [facility] [address] [id number] [place] [address] Nov, [facility] [address] [id number] [place] [address] Nov, [facility] [address] [id number] [place] [address] 08 Nov, 2012 [facility] [address] [id number] [place] [address] 08 Nov, 2012 [facility] [address] [id number] [place] [address] Nov, [facility] [address] [id number] [place] [address] 27 Oct, 2012 [facility] [address] [id number] [place] [address] 18 Oct, 2012 [facility] [address] [id number] [place] [address] 14 Oct, 2012 [facility] [address] [id number] [place] [address] 13 Oct, 2012 [facility] [address] [id number] [place] [address] Oct, [facility] [address] [id number] [place] [address] Oct, [facility] [address] [id number] [place] [address] 08 Oct, 2012 [facility] [address] [id number] [place] [address] Sep, [facility] [address] [id number] [place] [address] Sep, [facility] [address] [id number] [place] [address] Aug, [facility] [address] [id number] [place] [address] Aug, [facility] [address] [id number] [place] [address] Jul, [facility] [address] [id number] [place] [address] Jul, [facility] [address] [id number] [place] [address] Jul, [facility] [address] [id number] [place] [address] Jul, [facility] [address] [id number] [place] [address] Jul, [facility] [address] [id number] [place] [address] Jul, [facility] [address] [id number] [place] [address] Jul, [facility] [address] [id number] [place] [address] Jul, [facility] [address] [id number] [place] [address] Jun, [facility] [address] [id number] [place] [address] Jun, IMMUNIZATIONS No Known Immunizations SOCIAL HISTORY [...] -- total 11/2012 Hospitalization History [facility]- in [place] due to left knee 8
--- OUTSIDE RECORDS SUMMARY | 2020-02-11 03:13 | XMS REPORT ---
Author Author АНДРЕЙ Madelineshawn LEONG Organization [facility] Address [address] [place] [address] Care Team Providers Care Food And Beverage Intern Name Role Phone KWESIKennedy DANG Unavailable PROBLEMS Type Condition ICD9-CM Code RCG45-IW Code Onset Dates Condition S tatus SNOMED Code Problem Numbness and tingling in hands R20.2 Active 761511898 Problem History of abnormal cervical Pap smear Z87.898 Active 953909553 Problem Stasis dermatitis of both legs I87.2 Active 68782334 Problem Pre-diabetes R73.09 Active 1124929 02 Problem Morbid obesity due to excess calories E66.01 Active 297524778 Problem GERD (gastroesophageal reflux disease) K21.9 Active 831900379 Problem Mood disorder F39 Active 587297 05 Problem Chronic pain G89.29 Active 7436314 1 Problem BMI 45.0-49.9, adult Z68.42 Active 862958843 Problem Essential hypertension I10 Active 13899378 Problem Primary insomnia F51.01 Active 397 2004 Problem Chronic recurrent major depressive disorder F33.9 Active 0865303 ALLERGIES No Information ENCOUNTERS Encounter Location Date Diagnosis [place] [address] [address] 20 Aug, 2019 Acute non-recurrent maxillary sinusitis J01.00 and Tinea corporis B35.[address] [address] 14 Aug, 2019 BMI 45.0-49.9, adult Z68.42 and Chronic pain G89.[address] [address] Jul, BMI 45.0-49.9, adult Z68.42 and Chronic pain G89.[address] [address] Jul, Pre-diabetes R73.09 [place] [address] [address] Jun, BMI 45.0-49.9, adult Z68.42 and Chronic pain G89.29 [place] [address] [address] Jun, Acute non-recurrent maxillary sinusitis J01.00 [place] [address] [address] May, Chronic pain G89.29 and BMI 45.0-49.9, a dult Z68.42 [place] [address] [address] Apr, Chronic pain G89.29 and BMI 45.0-49.9, a dult Z68.42 [place] [address] [address] Apr, Mood disorder F39 [place] [address] [address] Mar, Chronic pain G89.29 and BMI 45.0-49.9, a dult Z68.42 [place] [address] [address] Mar, Morbid obesity E66.01 ; Chronic recurren t major depressive disorder F33.9 ; Morbid obesity due to excess calories E66.01 and High risk medication use Z79.899 [place] [address] [address] Mar, Chronic pain G89.29 and BMI 45.0-49.9, a dult Z68.42 [place] [address] [address] Feb, [place] [address] [address] Feb, Chronic pain G89.29 and BMI 45.0-49.9, a dult Z68.42 [place] [address] [address] 11 Jan, 2019 [place] [address] [address] 10 Jan, 2019 Chronic pain G89.29 and BMI 45.0-49.9, a dult Z68.42 [place] [address] [address] Jan, [place] [address] [address] December, Chronic pain G89.29 and BMI 45.0-49.9, a dult Z68.42 [place] [address] [address] 24 Nov, 2018 Morbid obesity E66.01 and Cellulitis of leg, left L03.116 [place] [address] [address] 15 Nov, 2018 Cellulitis of left lower extremity L03.1 16 and Morbid obesity E66.01 [facility] [address] [facility] [id number] [address] [place] [address] Nov, [place] [address] [address] Nov, Morbid obesity E66.01 and Cellulitis of left lower extremity L03.116 [place] [address] [address] Nov, Chronic pain G89.29 and BMI 45.0-49.9, a dult Z68.42 [place] [address] [address] Oct, BMI 45.0-49.9, adult Z68.42 and Chronic pain G89.29 [place] [address] [address] 14 Sep, 2018 BMI 45.0-49.9, adult Z68.42 and Chronic pain G89.29 [place] [address] [address] Sep, BMI 45.0-49.9, adult Z68.42 and Essentia l hypertension I10 [place] [address] [address] Aug, BMI 45.0-49.9, adult Z68.42 ; Chronic pa in G89.29 ; Essential hypertension I10 and Primary insomnia F51.01 [place] [address] [address] Aug, Chronic pain G89.29 [place] [address] [address] Jul, Chronic pain G89.29 [place] [address] [address] Jun, Chronic pain G89.29 [place] [address] [address] May, Chronic pain G89.29 [place] [address] [address] May, BMI 40.0-44.9, adult Z68.41 ; 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 ; Pain in right hip M25.551 and Acute pain of left knee M25.562 [place] [address] [address] May, Chronic pain G89.29 [place] [address] [address] Apr, Chronic pain G89.29 [place] [address] [address] Mar, Poison josep L23.7 [place] [address] [address] Mar, Chronic pain G89.29 [place] [address] [address] Feb, Chronic pain G89.29 [place] [address] [address] Feb, Poison josep L23.7 [place] [address] [address] Jan, Chronic pain G89.29 [place] [address] [address] December, Chronic pain G89.29 [place] [address] [address] Nov, Long-term use of high-risk medication Z7 9.899 [place] [address] [address] Nov, Chronic pain G89.29 [place] [address] [address] Oct, Chronic pain G89.29 ; Pre-diabetes R73.0 9 ; Long-term use of high-risk medication Z79.899 ; Allergic rhinitis, unspecified seasonality, unspecified trigger J30.9 ; BMI 45.0-49.9, adult Z68.42 and Essential hypertension I10 [place] [address] [address] Oct, Chronic pain G89.29 [place] [address] [address] Sep, Chronic pain G89.29 [place] [address] [address] Aug, Chronic pain G89.29 [place] [address] [address] Jul, [place] [address] [address] Jul, [place] [address] [address] Jun, Chronic pain G89.29 ; BMI 45.0-49.9, ambreen lt Z68.42 ; Pre-diabetes R73.09 ; Essential hypertension I10 ; GERD (gastroesophageal reflux disease) K21.9 ; Yeast dermatitis B37.2 ; Dysuria R30.0 ; Acute non-recurrent maxillary sinusitis J01.00 and Acute cystitis with hematuria N30.01 [place] [address] [address] Jun, Chronic pain G89.29 [place] [address] [address] Jun, Acute non-recurrent maxillary sinusitis J01.00 and BMI 45.0-49.9, adult Z68.42 [place] [address] [address] May, [place] [address] [address] May, Chronic pain G89.29 [place] [address] [address] May, [place] [address] [address] Apr, Chronic pain G89.29 [place] [address] [address] Mar, [place] [address] [address] Mar, Essential hypertension I10 and Pre-diabe sondra R73.09 [place] [address] [address] Mar, Chronic pain G89.29 ; Essential hyperten homar I10 ; Depressive disorder, not elsewhere classified F32.9 ; GERD (gastroesophageal reflux disease) K21.9 ; Pre-diabetes R73.09 ; Stasis dermatitis of both legs I87.2 and Acute non-recurrent maxillary sinusitis J01.00 [place] [address] [address] Mar, Chronic pain G89.29 [place] [address] [address] 07 Mar, 2017 Achilles tendinitis of right lower extre mity M76.61 and Tinea corporis B35.[address] [address] 17 Feb, 2017 Yeast dermatitis B37.[address] [address] Feb, Candidal intertrigo B37.2 and Acute righ t ankle pain M25.[address] [address] Feb, Chronic pain G89.[address] [address] Jan, [address] [address] Jan, Chronic pain G89.[address] [address] December, Chronic pain G89.29 ; Essential hyperten homar I10 ; Depressive disorder, not elsewhere classified F32.9 ; GERD (gastroesophageal reflux disease) K21.9 ; Pre-diabetes R73.09 ; Screening breast examination Z12.39 ; Stasis dermatitis of both legs I87.2 and Yeast dermatitis B37.2 [place] [address] [address] Nov, Chronic pain G89.[address] [address] Nov, Cellulitis of left lower extremity L03.[address] [address] 17 Nov, 2016 Cellulitis of left lower extremity L03.[address] [address] Oct, Yeast dermatitis B37.2 [place] [address] [address] Oct, Chronic pain G89.29 [place] [address] [address] Sep, Chronic pain G89.29 ; Essential hyperten homar I10 ; Depressive disorder, not elsewhere classified F32.9 and GERD (gastroesophageal reflux disease) K21.9 [place] [address] [address] Aug, Chronic pain G89.[address] [address] Aug, Cough R05 ; Rash R21 and Rash and nonspe cific skin eruption R21 [address] [address] Jul, Chronic pain G89.29 [place] [address] [address] Jun, Chronic pain G89.29 ; Bronchitis J40 ; E ssential hypertension I10 ; Depressive disorder, not elsewhere classified F32.9 ; GERD (gastroesophageal reflux disease) K21.9 and History of long-term use of multiple prescription drugs Z92.[address] [address] Jun, Bronchitis J40 ; Chills R68.83 and Sore throat J02.9 [place] [address] [address] May, [address] [address] Apr, [facility] [address] [facility] [id number] [address] [place] [address] 19 Apr, 2016 Acute mucoid otitis media of both ears H65.[address] [address] Apr, Yeast dermatitis B37.2 and Hematuria R31 .9 [place] [address] [address] Mar, [place] [address] [address] Mar, [place] [address] [address] Feb, Left anterior knee pain M25.562 [place] [address] [address] Feb, Chronic pain G89.29 ; Essential hyperten homar I10 ; Depressive disorder, not elsewhere classified F32.9 ; GERD (gastroesophageal reflux disease) K21.9 and History of long-term use of multiple prescription drugs Z92.29 [place] [address] [address] Jan, [place] [address] [address] Jan, Well woman exam Z01.419 ; BMI 45.0-49.9, adult Z68.42 ; Family history of diabetes mellitus Z83.3 and Chronic pain G89.29 [place] [address] [address] December, Chronic pain G89.29 ; Essential hyperten homar I10 ; Depressive disorder, not elsewhere classified F32.9 ; GERD (gastroesophageal reflux disease) K21.9 ; 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 ; History of long-term use of multiple prescription drugs Z92.29 and Obesity E66.9 [place] [address] [address] Oct, [place] [id number] Oct, Well woman exam Z01.419 ; BMI [...] smear Z12.4 and No natural teeth K00.0 [place] [id number] Oct, [place] [address] Sep, Chronic pain G89.29 ; Essential hyperten homar I10 ; GERD (gastroesophageal reflux disease) K21.9 ; 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 ; Skin infection L08.9 and History of long-term use of multiple prescription drugs Z92.[address] [address] Aug, [place] [id number] Jul, [address] [address] Jul, [address] [address] Jul, Upper respiratory infection J06.[address] [address] Jul, Depressive disorder, not elsewhere class ified F32.[address] [address] Jul, Chronic pain 338.[address] [address] Jul, Chronic pain G89.[address] [address] Jun, Poison josep L23.[address] [address] Jun, Allergic contact dermatitis due to plant s, except food L23.7 [place] [address] [address] Jun, Essential hypertension I10 ; Chronic zane n G89.29 ; GERD (gastroesophageal reflux disease) K21.9 and Numbness and tingling in hands R20.2 [place] [address] [address] May, [place] [address] [address] Apr, [place] [address] [address] Mar, [place] [address] [address] Feb, Abdominal pain, left lateral 789.09 and Constipation 564.[address] [address] Feb, Depressive disorder, not elsewhere class ified 311 and No condition on [place] II V71.09 [place] [address] [address] Feb, Spider bite 989.5 and Depression 311 [place] [address] [address] Feb, [place] [address] [address] Feb, Chronic pain 338.29 ; 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 and GERD (gastroesophageal reflux disease) 530.81 [place] [address] [address] Jan, Insect bites 919.4 [place] [address] [address] Jan, [place] [address] [address] December, Skin infection, bacterial 686.9 ; Conjun ctivitis 372.30 and Insect bites 919.4 [facility] [address] [place] [id number] [place] [address] December, Chronic pain 338.29 ; 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 ; Skin infection, bacterial 686.9 and Conjunctivitis 372.30 [facility] [address] [place] [id number] [place] [address] December, [facility] [address] [place] [id number] [place] [address] Nov, [facility] [address] [place] [id number] [place] [address] Nov, [facility] [address] [address] Oct, [facility] [address] [place] [id number] [place] [address] Oct, [facility] [address] [place] [id number] [place] [address] Sep, [facility] [address] [place] [id number] [place] [address] Sep, [facility] [address] [address] Aug, [facility] [address] [place] [id number] [place] [address] Aug, [facility] [address] [place] [id number] [place] [address] Aug, [facility] [address] [place] [id number] [place] [address] Aug, [facility] [address] [place] [id number] [place] [address] Jul, [facility] [address] [place] [id number] [place] [address] Jul, [facility] [address] [place] [id number] [place] [address] Jul, [facility] [address] [place] [id number] [place] [address] 15 Jul, 2014 [facility] [address] [id number] [place] [address] Jul, [facility] [address] [id number] [place] [address] Jul, [facility] [address] [id number] [place] [address] Jul, [facility] [address] [id number] [place] [address] Jul, [facility] [address] [id number] [place] [address] Jul, [facility] [address] [id number] [place] [address] Jun, [facility] [address] [id number] [place] [address] Jun, [facility] [address] [id number] [place] [address] Jun, [facility] [address] [id number] [place] [address] Jun, [facility] [address] [id number] [place] [address] Jun, [facility] [address] [id number] [place] [address] Jun, [facility] [address] [id number] [place] [address] Jun, [facility] [address] [id number] [place] [address] Jun, [facility] [address] [id number] [place] [address] May, [facility] [address] [id number] [place] [address] May, [facility] [address] [id number] [place] [address] 16 May, 2014 [facility] [address] [id number] [place] [address] May, [facility] [address] [id number] [place] [address] May, [facility] [address] [id number] [place] [address] Apr, [facility] [address] [id number] [place] [address] Apr, [facility] [address] [id number] [place] [address] Apr, [facility] [address] [id number] [place] [address] Apr, [facility] [address] [id number] [place] [address] Apr, [facility] [address] [id number] [place] [address] Apr, [facility] [address] [id number] [place] [address] Apr, [facility] [address] [id number] [place] [address] Apr, [facility] [address] [id number] [place] [address] Apr, [facility] [address] [id number] [place] [address] Apr, [facility] [address] [id number] [place] [address] Mar, [facility] [address] [id number] [place] [address] Mar, [facility] [address] [id number] [place] [address] Mar, [facility] [address] [id number] [place] [address] Mar, [facility] [address] [id number] [place] [address] Mar, [facility] [address] [id number] [place] [address] Mar, [facility] [address] [id number] [place] [address] Feb, [facility] [address] [id number] [place] [address] Feb, [facility] [address] [id number] [place] [address] Jan, [facility] [address] [id number] [place] [address] Jan, [facility] [address] [id number] [place] [address] Jan, [facility] [address] [id number] [place] [address] Jan, [facility] [address] [id number] [place] [address] December, [facility] [address] [id number] [place] [address] December, [facility] [address] [id number] [place] [address] December, [facility] [address] [id number] [place] [address] December, [facility] [address] [id number] [place] [address] December, [facility] [address] [id number] [place] [address] December, [facility] [address] [id number] [place] [address] December, [facility] [address] [id number] [place] [address] December, [facility] [address] [id number] [place] [address] December, [facility] [address] [id number] [place] [address] Nov, [facility] [address] [facility] [id number] [place] [address] Nov, [facility] [address] [facility] [id number] [facility] [place] [address] Nov, [facility] [address] [id number] [place] [address] Nov, [facility] [address] [id number] [place] [address] Nov, [facility] [address] [facility] [id number] [facility] [place] [address] Nov, [facility] [address] [id number] [place] [address] Nov, [facility] [address] [id number] [place] [address] Nov, [facility] [address] [id number] [place] [address] Nov, [facility] [address] [id number] [place] [address] Nov, [facility] [address] [id number] [place] [address] Oct, [facility] [address] [id number] [place] [address] Oct, [facility] [address] [id number] [place] [address] Sep, [facility] [address] [facility] [id number] [place] [address] Sep, [facility] [address] [id number] [place] [address] Aug, [facility] [address] [id number] [place] [address] Aug, [facility] [address] [id number] [place] [address] Aug, [facility] [address] [id number] [place] [address] 16 Aug, 2013 [facility] [address] [id number] [place] [address] Jul, [facility] [address] [id number] [place] [address] Jul, [facility] [address] [id number] [place] [address] Jul, [facility] [address] [id number] [place] [address] Jul, [facility] [address] [id number] [place] [address] Jun, [facility] [address] [id number] [place] [address] Jun, [facility] [id number] [place] [address] May, [facility] [id number] [place] [address] May, [facility] [address] [id number] [place] [address] May, [facility] [address] [id number] [place] [address] May, [facility] [id number] [place] [address] May, [facility] [address] [id number] [place] [address] May, [facility] [address] [id number] [place] [address] 30 Apr, 2013 [facility] [id number] [place] [address] Apr, [facility] [address] [id number] [place] [address] Apr, [facility] [id number] [place] [address] Feb, [facility] [id number] [place] [address] Jan, [facility] [address] [id number] [place] [address] Jan, [facility] [address] [id number] [place] [address] 17 Jan, 2013 [facility] [address] [id number] [place] [address] Jan, [facility] [address] [facility] [id number] [place] [address] December, [facility] [address] [id number] [place] [address] December, [facility] [address] [id number] [place] [address] 24 Nov, 2012 [facility] [address] [id number] [place] [address] Nov, [facility] [address] [id number] [place] [address] Nov, [facility] [address] [id number] [place] [address] Nov, [facility] [address] [id number] [place] [address] 08 Nov, 2012 [facility] [address] [id number] [place] [address] 08 Nov, 2012 [facility] [address] [id number] [place] [address] Nov, [facility] [address] [id number] [place] [address] 27 Oct, 2012 [facility] [address] [id number] [place] [address] 18 Oct, 2012 [facility] [address] [id number] [place] [address] 14 Oct, 2012 [facility] [address] [id number] [place] [address] 13 Oct, 2012 [facility] [address] [id number] [place] [address] Oct, [facility] [address] [id number] [place] [address] Oct, [facility] [address] [id number] [place] [address] 08 Oct, 2012 [facility] [address] [id number] [place] [address] Sep, [facility] [address] [id number] [place] [address] Sep, [facility] [address] [id number] [place] [address] Aug, [facility] [address] [id number] [place] [address] Aug, [facility] [address] [id number] [place] [address] Jul, [facility] [address] [id number] [place] [address] Jul, [facility] [address] [id number] [place] [address] Jul, [facility] [address] [id number] [place] [address] Jul, [facility] [address] [id number] [place] [address] Jul, [facility] [address] [id number] [place] [address] Jul, [facility] [address] [id number] [place] [address] Jul, [facility] [address] [id number] [place] [address] Jul, [facility] [address] [id number] [place] [address] Jun, [facility] [address] [id number] [place] [address] 29 Jun, 2012 IMMUNIZATIONS No Known Immunizations SOCIAL HISTORY Never Assessed REASON FOR VISIT PLAN OF CARE VITAL SIGNS MEDICATIONS No Known Medications RESULTS No Results PROCEDURES Procedure Date Ordered Result Body Site RESPIRATORY FLOW VOLUME LOOP November 28, 2013 NEB/AUGUSTUS DEMO November 28, 2013 SPIROMETRY November 28, 2013 INSTRUCTIONS MEDICATIONS ADMINISTERED No Known Medications [...] -- total 11/2012 Hospitalization History ER- in [place] due to left knee 8
--- OUTSIDE RECORDS SUMMARY | 2020-02-11 03:13 | XMS REPORT ---
Author Author АНДРЕЙ Madelineshawn LEONG Organization [facility] Address [address] [place] [address] Care Team Providers Care Supervisor Roving Department Name Role Phone KWESIKennedy DANG Unavailable PROBLEMS Type Condition ICD9-CM Code IAN19-IG Code Onset Dates Condition S tatus SNOMED Code Problem Numbness and tingling in hands R20.2 Active 954601152 Problem History of abnormal cervical Pap smear Z87.898 Active 325810322 Problem Stasis dermatitis of both legs I87.2 Active 07882375 Problem Pre-diabetes R73.09 Active 0743323 02 Problem Morbid obesity due to excess calories E66.01 Active 332296421 Problem GERD (gastroesophageal reflux disease) K21.9 Active 094460018 Problem Mood disorder F39 Active 710030 05 Problem Chronic pain G89.29 Active 6354851 1 Problem BMI 45.0-49.9, adult Z68.42 Active 239130024 Problem Essential hypertension I10 Active 80872357 Problem Primary insomnia F51.01 Active 397 2004 Problem Chronic recurrent major depressive disorder F33.9 Active 5907508 ALLERGIES No Information ENCOUNTERS Encounter Location Date Diagnosis [place] [address] [address] 20 Aug, 2019 Acute non-recurrent maxillary sinusitis J01.00 and Tinea corporis B35.[address] [address] 14 Aug, 2019 BMI 45.0-49.9, adult Z68.42 and Chronic pain G89.[address] [address] Jul, BMI 45.0-49.9, adult Z68.42 and Chronic pain G89.[address] [address] Jul, Pre-diabetes R73.09 [place] [address] [address] Jun, BMI 45.0-49.9, adult Z68.42 and Chronic pain G89.29 [place] [address] [address] Jun, Acute non-recurrent maxillary sinusitis J01.00 [place] [address] [address] May, Chronic pain G89.29 and BMI 45.0-49.9, a dult Z68.42 [place] [address] [address] Apr, Chronic pain G89.29 and BMI 45.0-49.9, a dult Z68.42 [place] [address] [address] Apr, Mood disorder F39 [place] [address] [address] Mar, Chronic pain G89.29 and BMI 45.0-49.9, a dult Z68.42 [place] [address] [address] Mar, Morbid obesity E66.01 ; Chronic recurren t major depressive disorder F33.9 ; Morbid obesity due to excess calories E66.01 and High risk medication use Z79.899 [place] [address] [address] Mar, Chronic pain G89.29 and BMI 45.0-49.9, a dult Z68.42 [place] [address] [address] Feb, [place] [address] [address] Feb, Chronic pain G89.29 and BMI 45.0-49.9, a dult Z68.42 [place] [address] [address] 11 Jan, 2019 [place] [address] [address] 10 Jan, 2019 Chronic pain G89.29 and BMI 45.0-49.9, a dult Z68.42 [place] [address] [address] Jan, [place] [address] [address] December, Chronic pain G89.29 and BMI 45.0-49.9, a dult Z68.42 [place] [address] [address] 24 Nov, 2018 Morbid obesity E66.01 and Cellulitis of leg, left L03.116 [place] [address] [address] 15 Nov, 2018 Cellulitis of left lower extremity L03.1 16 and Morbid obesity E66.01 [facility] [address] [facility] [id number] [address] [place] [address] Nov, [place] [address] [address] Nov, Morbid obesity E66.01 and Cellulitis of left lower extremity L03.116 [place] [address] [address] Nov, Chronic pain G89.29 and BMI 45.0-49.9, a dult Z68.42 [place] [address] [address] Oct, BMI 45.0-49.9, adult Z68.42 and Chronic pain G89.29 [place] [address] [address] 14 Sep, 2018 BMI 45.0-49.9, adult Z68.42 and Chronic pain G89.29 [place] [address] [address] Sep, BMI 45.0-49.9, adult Z68.42 and Essentia l hypertension I10 [place] [address] [address] Aug, BMI 45.0-49.9, adult Z68.42 ; Chronic pa in G89.29 ; Essential hypertension I10 and Primary insomnia F51.01 [place] [address] [address] Aug, Chronic pain G89.29 [place] [address] [address] Jul, Chronic pain G89.29 [place] [address] [address] Jun, Chronic pain G89.29 [place] [address] [address] May, Chronic pain G89.29 [place] [address] [address] May, BMI 40.0-44.9, adult Z68.41 ; 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 ; Pain in right hip M25.551 and Acute pain of left knee M25.562 [place] [address] [address] May, Chronic pain G89.29 [place] [address] [address] Apr, Chronic pain G89.29 [place] [address] [address] Mar, Poison josep L23.7 [place] [address] [address] Mar, Chronic pain G89.29 [place] [address] [address] Feb, Chronic pain G89.29 [place] [address] [address] Feb, Poison josep L23.7 [place] [address] [address] Jan, Chronic pain G89.29 [place] [address] [address] December, Chronic pain G89.29 [place] [address] [address] Nov, Long-term use of high-risk medication Z7 9.899 [place] [address] [address] Nov, Chronic pain G89.29 [place] [address] [address] Oct, Chronic pain G89.29 ; Pre-diabetes R73.0 9 ; Long-term use of high-risk medication Z79.899 ; Allergic rhinitis, unspecified seasonality, unspecified trigger J30.9 ; BMI 45.0-49.9, adult Z68.42 and Essential hypertension I10 [place] [address] [address] Oct, Chronic pain G89.29 [place] [address] [address] Sep, Chronic pain G89.29 [place] [address] [address] Aug, Chronic pain G89.29 [place] [address] [address] Jul, [place] [address] [address] Jul, [place] [address] [address] Jun, Chronic pain G89.29 ; BMI 45.0-49.9, ambreen lt Z68.42 ; Pre-diabetes R73.09 ; Essential hypertension I10 ; GERD (gastroesophageal reflux disease) K21.9 ; Yeast dermatitis B37.2 ; Dysuria R30.0 ; Acute non-recurrent maxillary sinusitis J01.00 and Acute cystitis with hematuria N30.01 [place] [address] [address] Jun, Chronic pain G89.29 [place] [address] [address] Jun, Acute non-recurrent maxillary sinusitis J01.00 and BMI 45.0-49.9, adult Z68.42 [place] [address] [address] May, [place] [address] [address] May, Chronic pain G89.29 [place] [address] [address] May, [place] [address] [address] Apr, Chronic pain G89.29 [place] [address] [address] Mar, [place] [address] [address] Mar, Essential hypertension I10 and Pre-diabe sondra R73.09 [place] [address] [address] Mar, Chronic pain G89.29 ; Essential hyperten homar I10 ; Depressive disorder, not elsewhere classified F32.9 ; GERD (gastroesophageal reflux disease) K21.9 ; Pre-diabetes R73.09 ; Stasis dermatitis of both legs I87.2 and Acute non-recurrent maxillary sinusitis J01.00 [place] [address] [address] Mar, Chronic pain G89.29 [place] [address] [address] 07 Mar, 2017 Achilles tendinitis of right lower extre mity M76.61 and Tinea corporis B35.[address] [address] 17 Feb, 2017 Yeast dermatitis B37.[address] [address] Feb, Candidal intertrigo B37.2 and Acute righ t ankle pain M25.[address] [address] Feb, Chronic pain G89.[address] [address] Jan, [address] [address] Jan, Chronic pain G89.[address] [address] December, Chronic pain G89.29 ; Essential hyperten homar I10 ; Depressive disorder, not elsewhere classified F32.9 ; GERD (gastroesophageal reflux disease) K21.9 ; Pre-diabetes R73.09 ; Screening breast examination Z12.39 ; Stasis dermatitis of both legs I87.2 and Yeast dermatitis B37.2 [place] [address] [address] Nov, Chronic pain G89.[address] [address] Nov, Cellulitis of left lower extremity L03.[address] [address] 17 Nov, 2016 Cellulitis of left lower extremity L03.[address] [address] Oct, Yeast dermatitis B37.2 [place] [address] [address] Oct, Chronic pain G89.29 [place] [address] [address] Sep, Chronic pain G89.29 ; Essential hyperten homar I10 ; Depressive disorder, not elsewhere classified F32.9 and GERD (gastroesophageal reflux disease) K21.9 [place] [address] [address] Aug, Chronic pain G89.[address] [address] Aug, Cough R05 ; Rash R21 and Rash and nonspe cific skin eruption R21 [address] [address] Jul, Chronic pain G89.29 [place] [address] [address] Jun, Chronic pain G89.29 ; Bronchitis J40 ; E ssential hypertension I10 ; Depressive disorder, not elsewhere classified F32.9 ; GERD (gastroesophageal reflux disease) K21.9 and History of long-term use of multiple prescription drugs Z92.[address] [address] Jun, Bronchitis J40 ; Chills R68.83 and Sore throat J02.9 [place] [address] [address] May, [address] [address] Apr, [facility] [address] [facility] [id number] [address] [place] [address] 19 Apr, 2016 Acute mucoid otitis media of both ears H65.[address] [address] Apr, Yeast dermatitis B37.2 and Hematuria R31 .9 [place] [address] [address] Mar, [place] [address] [address] Mar, [place] [address] [address] Feb, Left anterior knee pain M25.562 [place] [address] [address] Feb, Chronic pain G89.29 ; Essential hyperten homar I10 ; Depressive disorder, not elsewhere classified F32.9 ; GERD (gastroesophageal reflux disease) K21.9 and History of long-term use of multiple prescription drugs Z92.29 [place] [address] [address] Jan, [place] [address] [address] Jan, Well woman exam Z01.419 ; BMI 45.0-49.9, adult Z68.42 ; Family history of diabetes mellitus Z83.3 and Chronic pain G89.29 [place] [address] [address] December, Chronic pain G89.29 ; Essential hyperten homar I10 ; Depressive disorder, not elsewhere classified F32.9 ; GERD (gastroesophageal reflux disease) K21.9 ; 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 ; History of long-term use of multiple prescription drugs Z92.29 and Obesity E66.9 [place] [address] [address] Oct, [place] [address] Oct, Well woman exam Z01.419 ; BMI [...] smear Z12.4 and No natural teeth K00.0 [place] [address] Oct, [place] [address] Sep, Chronic pain G89.29 ; Essential hyperten homar I10 ; GERD (gastroesophageal reflux disease) K21.9 ; 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 ; Skin infection L08.9 and History of long-term use of multiple prescription drugs Z92.[address] [address] Aug, [place] [address] Jul, [address] [address] Jul, [address] [address] Jul, Upper respiratory infection J06.[address] [address] Jul, Depressive disorder, not elsewhere class ified F32.[address] [address] Jul, Chronic pain 338.[address] [address] Jul, Chronic pain G89.[address] [address] Jun, Poison josep L23.[address] [address] Jun, Allergic contact dermatitis due to plant s, except food L23.7 [place] [address] [address] Jun, Essential hypertension I10 ; Chronic zane n G89.29 ; GERD (gastroesophageal reflux disease) K21.9 and Numbness and tingling in hands R20.2 [place] [address] [address] May, [place] [address] [address] Apr, [place] [address] [address] Mar, [place] [address] [address] Feb, Abdominal pain, left lateral 789.09 and Constipation 564.[address] [address] Feb, Depressive disorder, not elsewhere class ified 311 and No condition on [place] II V71.09 [place] [address] [address] Feb, Spider bite 989.5 and Depression 311 [place] [address] [address] Feb, [place] [address] [address] Feb, Chronic pain 338.29 ; 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 and GERD (gastroesophageal reflux disease) 530.81 [place] [address] [address] Jan, Insect bites 919.4 [place] [address] [address] Jan, [place] [address] [address] December, Skin infection, bacterial 686.9 ; Conjun ctivitis 372.30 and Insect bites 919.4 [facility] [address] [place] [id number] [place] [address] December, Chronic pain 338.29 ; 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 ; Skin infection, bacterial 686.9 and Conjunctivitis 372.30 [facility] [address] [place] [id number] [place] [address] December, [facility] [address] [place] [id number] [place] [address] Nov, [facility] [address] [place] [id number] [place] [address] Nov, [facility] [address] [address] Oct, [facility] [address] [place] [id number] [place] [address] Oct, [facility] [address] [place] [id number] [place] [address] Sep, [facility] [address] [place] [id number] [place] [address] Sep, [facility] [address] [address] Aug, [facility] [address] [place] [id number] [place] [address] Aug, [facility] [address] [place] [id number] [place] [address] Aug, [facility] [address] [place] [id number] [place] [address] Aug, [facility] [address] [place] [id number] [place] [address] Jul, [facility] [address] [place] [id number] [place] [address] Jul, [facility] [address] [place] [id number] [place] [address] Jul, [facility] [address] [place] [id number] [place] [address] 15 Jul, 2014 [facility] [address] [id number] [place] [address] Jul, [facility] [address] [id number] [place] [address] Jul, [facility] [address] [id number] [place] [address] Jul, [facility] [address] [id number] [place] [address] Jul, [facility] [address] [id number] [place] [address] Jul, [facility] [address] [id number] [place] [address] Jun, [facility] [address] [id number] [place] [address] Jun, [facility] [address] [id number] [place] [address] Jun, [facility] [address] [id number] [place] [address] Jun, [facility] [address] [id number] [place] [address] Jun, [facility] [address] [id number] [place] [address] Jun, [facility] [address] [id number] [place] [address] Jun, [facility] [address] [id number] [place] [address] Jun, [facility] [address] [id number] [place] [address] May, [facility] [address] [id number] [place] [address] May, [facility] [address] [id number] [place] [address] 16 May, 2014 [facility] [address] [id number] [place] [address] May, [facility] [address] [id number] [place] [address] May, [facility] [address] [id number] [place] [address] Apr, [facility] [address] [id number] [place] [address] Apr, [facility] [address] [id number] [place] [address] Apr, [facility] [address] [id number] [place] [address] Apr, [facility] [address] [id number] [place] [address] Apr, [facility] [address] [id number] [place] [address] Apr, [facility] [address] [id number] [place] [address] Apr, [facility] [address] [id number] [place] [address] Apr, [facility] [address] [id number] [place] [address] Apr, [facility] [address] [id number] [place] [address] Apr, [facility] [address] [id number] [place] [address] Mar, [facility] [address] [id number] [place] [address] Mar, [facility] [address] [id number] [place] [address] Mar, [facility] [address] [id number] [place] [address] Mar, [facility] [address] [id number] [place] [address] Mar, [facility] [address] [id number] [place] [address] Mar, [facility] [address] [id number] [place] [address] Feb, [facility] [address] [id number] [place] [address] Feb, [facility] [address] [id number] [place] [address] Jan, [facility] [address] [id number] [place] [address] Jan, [facility] [address] [id number] [place] [address] Jan, [facility] [address] [id number] [place] [address] Jan, [facility] [address] [id number] [place] [address] December, [facility] [address] [id number] [place] [address] December, [facility] [address] [id number] [place] [address] December, [facility] [address] [id number] [place] [address] December, [facility] [address] [id number] [place] [address] December, [facility] [address] [id number] [place] [address] December, [facility] [address] [id number] [place] [address] December, [facility] [address] [id number] [place] [address] December, [facility] [address] [id number] [place] [address] December, [facility] [address] [id number] [place] [address] Nov, [facility] [address] [facility] [id number] [place] [address] Nov, [facility] [address] [facility] [id number] [facility] [place] [address] Nov, [facility] [address] [id number] [place] [address] Nov, [facility] [address] [id number] [place] [address] Nov, [facility] [address] [facility] [id number] [facility] [place] [address] Nov, [facility] [address] [id number] [place] [address] Nov, [facility] [address] [id number] [place] [address] Nov, [facility] [address] [id number] [place] [address] Nov, [facility] [address] [id number] [place] [address] Nov, [facility] [address] [id number] [place] [address] Oct, [facility] [address] [id number] [place] [address] Oct, [facility] [address] [id number] [place] [address] Sep, [facility] [address] [facility] [id number] [place] [address] Sep, [facility] [address] [id number] [place] [address] Aug, [facility] [address] [id number] [place] [address] Aug, [facility] [address] [id number] [place] [address] Aug, [facility] [address] [id number] [place] [address] 16 Aug, 2013 [facility] [address] [id number] [place] [address] Jul, [facility] [address] [id number] [place] [address] Jul, [facility] [address] [id number] [place] [address] Jul, [facility] [address] [id number] [place] [address] Jul, [facility] [address] [id number] [place] [address] Jun, [facility] [address] [id number] [place] [address] Jun, [facility] [id number] [place] [address] May, [facility] [id number] [place] [address] May, [facility] [address] [id number] [place] [address] May, [facility] [address] [id number] [place] [address] May, [facility] [id number] [place] [address] May, [facility] [address] [id number] [place] [address] May, [facility] [address] [id number] [place] [address] 30 Apr, 2013 [facility] [id number] [place] [address] Apr, [facility] [address] [id number] [place] [address] Apr, [facility] [id number] [place] [address] Feb, [facility] [id number] [place] [address] Jan, [facility] [address] [id number] [place] [address] Jan, [facility] [address] [id number] [place] [address] 17 Jan, 2013 [facility] [address] [id number] [place] [address] Jan, [facility] [address] [facility] [id number] [place] [address] December, [facility] [address] [id number] [place] [address] December, [facility] [address] [id number] [place] [address] 24 Nov, 2012 [facility] [address] [id number] [place] [address] Nov, [facility] [address] [id number] [place] [address] Nov, [facility] [address] [id number] [place] [address] Nov, [facility] [address] [id number] [place] [address] 08 Nov, 2012 [facility] [address] [id number] [place] [address] 08 Nov, 2012 [facility] [address] [id number] [place] [address] Nov, [facility] [address] [id number] [place] [address] 27 Oct, 2012 [facility] [address] [id number] [place] [address] 18 Oct, 2012 [facility] [address] [id number] [place] [address] 14 Oct, 2012 [facility] [address] [id number] [place] [address] 13 Oct, 2012 [facility] [address] [id number] [place] [address] Oct, [facility] [address] [id number] [place] [address] Oct, [facility] [address] [id number] [place] [address] 08 Oct, 2012 [facility] [address] [id number] [place] [id number] Sep, [facility] [address] [id number] [place] [address] Sep, [facility] [address] [id number] [place] [address] Aug, [facility] [address] [id number] [place] [address] Aug, [facility] [address] [id number] [place] [address] Jul, [facility] [address] [id number] [place] [address] Jul, [facility] [address] [id number] [place] [address] Jul, [facility] [address] [id number] [place] [address] Jul, [facility] [address] [id number] [place] [address] Jul, [facility] [address] [id number] [place] [address] Jul, [facility] [address] [id number] [place] [address] Jul, [facility] [address] [id number] [place] [address] Jul, [facility] [address] [id number] [place] [address] Jun, [facility] [address] [id number] [place] [address] Jun, IMMUNIZATIONS No Known Immunizations SOCIAL HISTORY [...] -- total 11/2012 Hospitalization History ER- in [place] due to left knee 8
--- OUTSIDE RECORDS SUMMARY | 2020-02-11 03:14 | XMS REPORT ---
Author Author АНДРЕЙ Madelineshawn LEONG Organization [facility] Address [address] [place] [address] Care Team Providers Care Gunner Mate Name Role Phone KWESIKennedy DANG Unavailable PROBLEMS Type Condition ICD9-CM Code [id number] Code Onset Dates Condition S tatus SNOMED Code Problem Numbness and tingling in hands R20.2 Active 159544791 Problem History of abnormal cervical Pap smear Z87.898 Active 685294420 Problem Stasis dermatitis of both legs I87.2 Active 41106504 Problem Pre-diabetes R73.09 Active 5544459 02 Problem Morbid obesity due to excess calories E66.01 Active 091319883 Problem GERD (gastroesophageal reflux disease) K21.9 Active 925800995 Problem Mood disorder F39 Active 696431 05 Problem Chronic pain G89.29 Active 3591368 1 Problem BMI 45.0-49.9, adult Z68.42 Active 617408823 Problem Essential hypertension I10 Active 22155878 Problem Primary insomnia F51.01 Active 397 2004 Problem Chronic recurrent major depressive disorder F33.9 Active 8184897 ALLERGIES No Information ENCOUNTERS Encounter Location Date Diagnosis [place] [address] [address] 17 Jul, 2019 BMI 45.0-49.9, adult Z68.42 and Chronic pain G89.29 [facility] [address] [address] 13 Jul, 2019 Pre-diabetes R73.[address] [address] Jun, BMI 45.0-49.9, adult Z68.42 and Chronic pain G89.[address] [address] Jun, Acute non-recurrent maxillary sinusitis J01.00 [place] [address] [address] May, Chronic pain G89.29 and BMI 45.0-49.9, a dult Z68.42 [place] [address] [address] Apr, Chronic pain G89.29 and BMI 45.0-49.9, a dult Z68.42 [place] [address] [address] Apr, Mood disorder F39 [place] [address] [address] Mar, Chronic pain G89.29 and BMI 45.0-49.9, a dult Z68.42 [place] [address] [address] Mar, Morbid obesity E66.01 ; Chronic recurren t major depressive disorder F33.9 ; Morbid obesity due to excess calories E66.01 and High risk medication use Z79.899 [place] [address] [address] Mar, Chronic pain G89.29 and BMI 45.0-49.9, a dult Z68.42 [place] [address] [address] Feb, [place] [address] [address] Feb, Chronic pain G89.29 and BMI 45.0-49.9, a dult Z68.42 [place] [address] [address] Jan, [place] [address] [address] Jan, Chronic pain G89.29 and BMI 45.0-49.9, a dult Z68.42 [place] [address] [address] Jan, [place] [address] [address] December, Chronic pain G89.29 and BMI 45.0-49.9, a dult Z68.42 [place] [address] [address] Nov, Morbid obesity E66.01 and Cellulitis of leg, left L03.116 [place] [address] [address] 15 Nov, 2018 Cellulitis of left lower extremity L03.1 16 and Morbid obesity E66.01 [facility] [address] [facility] [id number] [address] [place] [address] Nov, [place] [address] [address] Nov, Morbid obesity E66.01 and Cellulitis of left lower extremity L03.116 [place] [address] [address] Nov, Chronic pain G89.29 and BMI 45.0-49.9, a dult Z68.42 [place] [address] [address] Oct, BMI 45.0-49.9, adult Z68.42 and Chronic pain G89.29 [place] [address] [address] 14 Sep, 2018 BMI 45.0-49.9, adult Z68.42 and Chronic pain G89.29 [place] [address] [address] 05 Sep, 2018 BMI 45.0-49.9, adult Z68.42 and Essentia l hypertension I10 [place] [address] [address] Aug, BMI 45.0-49.9, adult Z68.42 ; Chronic pa in G89.29 ; Essential hypertension I10 and Primary insomnia F51.01 [facility] [address] [address] Aug, Chronic pain G89.29 [facility] [address] [address] Jul, Chronic pain G89.29 [facility] [address] [address] Jun, Chronic pain G89.29 [facility] [address] [address] May, Chronic pain G89.29 [place] [address] [address] May, BMI 40.0-44.9, adult Z68.41 ; 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 ; Pain in right hip M25.551 and Acute pain of left knee M25.562 [facility] [address] [address] May, Chronic pain G89.29 [place] [address] [address] Apr, Chronic pain G89.29 [place] [address] [address] Mar, Poison josep L23.7 [facility] [address] [address] Mar, Chronic pain G89.29 [facility] [address] [address] Feb, Chronic pain G89.29 [facility] [address] [address] Feb, Poison josep L23.7 [facility] [address] [address] Jan, Chronic pain G89.29 [facility] [address] [address] December, Chronic pain G89.29 [place] [address] [address] Nov, Long-term use of high-risk medication Z7 9.899 [place] [address] [address] Nov, Chronic pain G89.29 [place] [address] [address] Oct, Chronic pain G89.29 ; Pre-diabetes R73.0 9 ; Long-term use of high-risk medication Z79.899 ; Allergic rhinitis, unspecified seasonality, unspecified trigger J30.9 ; BMI 45.0-49.9, adult Z68.42 and Essential hypertension I10 [place] [address] [address] Oct, Chronic pain G89.29 [place] [address] [address] Sep, Chronic pain G89.29 [place] [address] [address] Aug, Chronic pain G89.29 [place] [address] [address] Jul, [place] [address] [address] Jul, [place] [address] [address] Jun, Chronic pain G89.29 ; BMI 45.0-49.9, ambreen lt Z68.42 ; Pre-diabetes R73.09 ; Essential hypertension I10 ; GERD (gastroesophageal reflux disease) K21.9 ; Yeast dermatitis B37.2 ; Dysuria R30.0 ; Acute non-recurrent maxillary sinusitis J01.00 and Acute cystitis with hematuria N30.01 [place] [address] [address] Jun, Chronic pain G89.29 [place] [address] [address] Jun, Acute non-recurrent maxillary sinusitis J01.00 and BMI 45.0-49.9, adult Z68.42 [place] [address] [address] May, [place] [address] May, Chronic pain G89.29 [place] [address] [address] May, [place] [address] [address] Apr, Chronic pain G89.29 [place] [address] [address] Mar, [place] [address] [address] Mar, Essential hypertension I10 and Pre-diabe sondra R73.[address] [address] Mar, Chronic pain G89.29 ; Essential hyperten homar I10 ; Depressive disorder, not elsewhere classified F32.9 ; GERD (gastroesophageal reflux disease) K21.9 ; Pre-diabetes R73.09 ; Stasis dermatitis of both legs I87.2 and Acute non-recurrent maxillary sinusitis J01.00 [place] [address] [address] Mar, Chronic pain G89.[address] [address] Mar, Achilles tendinitis of right lower extre mity M76.61 and Tinea corporis B35.[address] [address] Feb, Yeast dermatitis B37.2 [place] [address] [address] 14 Feb, 2017 Candidal intertrigo B37.2 and Acute righ t ankle pain M25.571 [place] [address] [address] 12 Feb, 2017 Chronic pain G89.29 [place] [address] [address] Jan, [place] [address] [address] Jan, Chronic pain G89.29 [place] [address] [address] December, Chronic pain G89.29 ; Essential hyperten homar I10 ; Depressive disorder, not elsewhere classified F32.9 ; GERD (gastroesophageal reflux disease) K21.9 ; Pre-diabetes R73.09 ; Screening breast examination Z12.39 ; Stasis dermatitis of both legs I87.2 and Yeast dermatitis B37.2 [place] [address] [address] Nov, Chronic pain G89.29 [place] [address] [address] Nov, Cellulitis of left lower extremity L03.1 16 [place] [address] [address] 17 Nov, 2016 Cellulitis of left lower extremity L03.1 16 [place] [address] [address] Oct, Yeast dermatitis B37.2 [place] [address] [address] Oct, Chronic pain G89.29 [place] [address] [address] Sep, Chronic pain G89.29 ; Essential hyperten homar I10 ; Depressive disorder, not elsewhere classified F32.9 and GERD (gastroesophageal reflux disease) K21.9 [facility] [address] [address] Aug, Chronic pain G89.29 [facility] [address] [address] Aug, Cough R05 ; Rash R21 and Rash and nonspe cific skin eruption R21 [place] [address] [address] Jul, Chronic pain G89.29 [place] [address] [address] Jun, Chronic pain G89.29 ; Bronchitis J40 ; E ssential hypertension I10 ; Depressive disorder, not elsewhere classified F32.9 ; GERD (gastroesophageal reflux disease) K21.9 and History of long-term use of multiple prescription drugs Z92.29 [place] [address] [address] Jun, Bronchitis J40 ; Chills R68.83 and Sore throat J02.9 [place] [address] [address] May, [place] [address] [address] Apr, [facility] [address] [facility] [id number] [address] [place] [address] Apr, Acute mucoid otitis media of both ears H65.[address] [address] 07 Apr, 2016 Yeast dermatitis B37.2 and Hematuria R31 .[address] [address] Mar, [place] [address] [address] Mar, [place] [address] [address] Feb, Left anterior knee pain M25.562 [place] [address] [address] Feb, Chronic pain G89.29 ; Essential hyperten homar I10 ; Depressive disorder, not elsewhere classified F32.9 ; GERD (gastroesophageal reflux disease) K21.9 and History of long-term use of multiple prescription drugs Z92.29 [place] [address] [address] Jan, [place] [address] [address] Jan, Well woman exam Z01.419 ; BMI 45.0-49.9, adult Z68.42 ; Family history of diabetes mellitus Z83.3 and Chronic pain G89.29 [place] [address] [address] December, Chronic pain G89.29 ; Essential hyperten homar I10 ; Depressive disorder, not elsewhere classified F32.9 ; GERD (gastroesophageal reflux disease) K21.9 ; 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 ; History of long-term use of multiple prescription drugs Z92.29 and Obesity E66.9 [place] [address] [address] Oct, [place] [address] [address] Oct, Well woman exam Z01.419 ; BMI [...] smear Z12.4 and No natural teeth K00.[address] [address] Oct, [place] [address] [address] Sep, Chronic pain G89.29 ; Essential hyperten homar I10 ; GERD (gastroesophageal reflux disease) K21.9 ; 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 ; Skin infection L08.9 and History of long-term use of multiple prescription drugs Z92.29 [place] [address] [address] Aug, [place] [address] [place] [address] Jul, [place] [address] [address] Jul, [place] [address] [address] Jul, Upper respiratory infection J06.[address] [address] Jul, Depressive disorder, not elsewhere class ified F32.[address] [address] Jul, Chronic pain 338.[address] [address] Jul, Chronic pain G89.[address] [address] Jun, Poison josep L23.[address] [address] Jun, Allergic contact dermatitis due to plant s, except food L23.[address] [address] Jun, Essential hypertension I10 ; Chronic zane n G89.29 ; GERD (gastroesophageal reflux disease) K21.9 and Numbness and tingling in hands R20.[address] [address] May, [facility] [address] [address] Apr, [facility] [address] [address] Mar, [facility] [address] [address] Feb, Abdominal pain, left lateral 789.09 and Constipation 564.00 [place] [address] [address] Feb, Depressive disorder, not elsewhere class ified 311 and No condition on [place] II V71.[address] [address] Feb, Spider bite 989.5 and Depression [address] [address] Feb, [address] [address] Feb, Chronic pain 338.29 ; 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 and GERD (gastroesophageal reflux disease) 530.[address] [address] Jan, Insect bites 919.[address] [address] Jan, [facility] [address] [address] December, Skin infection, bacterial 686.9 ; Conjun ctivitis 372.30 and Insect bites 919.[address] [address] December, Chronic pain 338.29 ; 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 ; Skin infection, bacterial 686.9 and Conjunctivitis 372.[address] [address] December, [address] [address] 14 Nov, 2014 [facility] [place] [facility] [address] [id number] [place] [address] Nov, [facility] [place] [facility] [address] [id number] [place] [address] Oct, [facility] [place] [facility] [address] [id number] [place] [address] Oct, [facility] [place] [facility] [address] [id number] [place] [address] Sep, [facility] [place] [facility] [address] [id number] [place] [address] Sep, [facility] [place] [facility] [address] [id number] [place] [address] Aug, [facility] [place] [facility] [address] [id number] [place] [address] Aug, [facility] [place] [facility] [address] [id number] [place] [address] Aug, [facility] [place] [facility] [address] [id number] [place] [address] Aug, [facility] [place] [facility] [address] [id number] [place] [address] Jul, [facility] [place] [facility] [address] [id number] [place] [address] Jul, [facility] [place] [facility] [address] [id number] [place] [address] Jul, [facility] [place] [facility] [address] [id number] [place] [address] Jul, [facility] [place] [facility] [address] [place] [id number] [place] [address] Jul, [facility] [place] [facility] [address] [id number] [place] [address] Jul, [facility] [place] [facility] [address] [id number] [place] [address] Jul, [facility] [place] [facility] [address] [id number] [place] [address] Jul, [facility] [place] [facility] [address] [id number] [place] [address] Jul, [facility] [place] [facility] [address] [id number] [place] [address] Jun, [facility] [place] [facility] [address] [id number] [place] [address] Jun, [facility] [place] [facility] [address] [id number] [place] [address] Jun, [facility] [place] [facility] [address] [id number] [place] [address] Jun, [facility] [place] [facility] [address] [id number] [place] [address] Jun, [facility] [place] [facility] [address] [place] [id number] [place] [address] Jun, [facility] [place] [facility] [address] [id number] [place] [address] Jun, [facility] [place] [facility] [address] [id number] [place] [address] Jun, [facility] [place] [facility] [address] [id number] [place] [address] May, [facility] [place] [facility] [address] [id number] [place] [address] May, [facility] [place] [facility] [address] [id number] [place] [address] May, [facility] [place] [facility] [address] [id number] [place] [address] May, [facility] [place] [facility] [address] [place] [id number] [place] [address] May, [facility] [place] [facility] [address] [id number] [place] [address] Apr, [facility] [place] [facility] [address] [id number] [place] [address] Apr, 2013 [facility] [place] [facility] [address] [id number] [facility] [place] [address] Apr, 2013 [facility] [place] [facility] [address] [facility] [id number] [facility] [place] [address] Apr, 2013 [facility] [place] [facility] [address] [facility] [id number] [facility] [place] [address] Apr, 2013 [facility] [place] [facility] [address] [facility] [id number] [place] [address] Apr, 2013 [facility] [place] [facility] [address] [facility] [id number] [facility] [place] [address] Apr, 2013 [facility] [place] [facility] [address] [facility] [id number] [facility] [place] [address] Apr, 2013 [facility] [place] [facility] [address] [id number] [place] [address] Apr, 2013 [facility] [place] [facility] [address] [id number] [place] [address] Apr, 2013 [facility] [place] [facility] [address] [facility] [id number] [place] [address] Mar, [facility] [place] [facility] [address] [id number] [facility] [place] [address] Mar, [facility] [place] [facility] [address] [id number] [place] [address] Mar, [facility] [place] [facility] [address] [id number] [place] [address] Mar, [facility] [place] [facility] [address] [facility] [id number] [place] [address] Mar, [facility] [place] [facility] [address] [facility] [id number] [place] [address] Mar, [facility] [place] [facility] [address] [facility] [id number] [place] [address] Feb, [facility] [place] [facility] [address] [id number] [facility] [place] [address] Feb, [facility] [place] [facility] [address] [facility] [id number] [place] [address] Jan, [facility] [place] [facility] [address] [id number] [place] [address] Jan, [facility] [place] [facility] [address] [id number] [place] [address] Jan, [facility] [place] [facility] [address] [id number] [place] [address] Jan, [facility] [place] [facility] [address] [id number] [place] [address] December, [facility] [place] [facility] [address] [id number] [place] [address] December, [facility] [place] [facility] [address] [id number] [place] [address] December, [facility] [place] [facility] [address] [id number] [place] [address] December, [facility] [place] [facility] [address] [id number] [place] [address] December, [facility] [place] [facility] [address] [id number] [place] [address] December, [facility] [place] [facility] [address] [id number] [place] [address] December, [facility] [place] [facility] [address] [id number] [place] [address] December, [facility] [place] [facility] [address] [id number] [place] [address] December, [facility] [place] [facility] [address] [id number] [place] [address] Nov, [facility] [place] [facility] [address] [id number] [place] [address] Nov, [facility] [place] [facility] [address] [id number] [place] [address] Nov, [facility] [place] [facility] [address] [id number] [place] [address] Nov, [facility] [place] [facility] [address] [id number] [place] [address] Nov, [facility] [place] [facility] [address] [id number] [place] [address] Nov, [facility] [place] [facility] [address] [id number] [place] [address] Nov, [facility] [place] [facility] [address] [id number] [place] [address] Nov, [facility] [place] [facility] [address] [id number] [place] [address] Nov, [facility] [place] [facility] [address] [id number] [place] [address] Nov, [facility] [place] [facility] [address] [id number] [place] [address] Oct, [facility] [place] [facility] [address] [id number] [place] [address] Oct, [facility] [place] [facility] [address] [id number] [place] [address] Sep, [facility] [place] [facility] [address] [id number] [place] [address] Sep, [facility] [place] [facility] [address] [id number] [place] [address] Aug, [facility] [place] [facility] [address] [id number] [place] [address] Aug, [facility] [address] [id number] [place] [address] Aug, [facility] [address] [id number] [place] [address] Aug, [facility] [address] [id number] [place] [address] Jul, [facility] [address] [id number] [place] [address] Jul, [facility] [address] [id number] [place] [address] Jul, [facility] [address] [id number] [place] [address] Jul, [facility] [address] [id number] [place] [address] Jun, [facility] [address] [id number] [place] [address] Jun, [facility] [address] [id number] [place] [address] May, [facility] [address] [facility] [id number] [place] [address] May, [facility] [address] [id number] [place] [address] May, [facility] [address] [id number] [place] [address] May, [facility] [address] [id number] [place] [address] May, [facility] [address] [id number] [place] [address] May, [facility] [address] [id number] [place] [address] 30 Apr, 2013 [facility] [address] [id number] [place] [address] Apr, [facility] [address] [id number] [place] [address] 03 Apr, 2013 [facility] [address] [id number] [place] [address] Feb, [facility] [address] [id number] [place] [address] Jan, [facility] [address] [id number] [place] [address] Jan, [facility] [address] [id number] [place] [address] Jan, [facility] [address] [id number] [place] [address] 14 Jan, 2013 [facility] [address] [facility] [id number] [place] [address] December, [facility] [address] [id number] [place] [address] December, [facility] [address] [id number] [place] [address] 24 Nov, 2012 [facility] [address] [id number] [place] [address] Nov, [facility] [address] [id number] [place] [address] Nov, [facility] [address] [id number] [place] [address] Nov, [facility] [address] [id number] [place] [address] Nov, [facility] [address] [id number] [place] [address] 08 Nov, 2012 [facility] [address] [id number] [place] [address] Nov, [facility] [facility] [address] [id number] [place] [address] 27 Oct, 2012 [facility] [address] [id number] [place] [address] 18 Oct, 2012 [facility] [address] [id number] [place] [address] 14 Oct, 2012 [facility] [address] [id number] [place] [address] 13 Oct, 2012 [facility] [address] [id number] [place] [address] 12 Oct, 2012 [facility] [address] [id number] [place] [address] 11 Oct, 2012 [facility] [address] [id number] [place] [address] Oct, [facility] [address] [id number] [place] [address] Sep, [facility] [id number] [place] [address] Sep, [facility] [address] [id number] [place] [address] Aug, [facility] [id number] [place] [address] Aug, [facility] [id number] [place] [address] Jul, [facility] [id number] [place] [address] Jul, [facility] [id number] [place] [address] Jul, [facility] [id number] [place] [address] Jul, [facility] [id number] [place] [address] Jul, [facility] [id number] [place] [address] Jul, [facility] [id number] [place] [address] Jul, [facility] [id number] [place] [address] Jul, [facility] [id number] [place] [address] Jun, [facility] [id number] [place] [address] Jun, IMMUNIZATIONS No Known Immunizations SOCIAL HISTORY Never Assessed REASON FOR VISIT PLAN OF CARE VITAL SIGNS Height 62 in 2014-01-08 Weight 248 lbs 2014-01-08 Temperature 98 degrees Fahrenheit 2014-01-08 Heart Rate 74 bpm 2014-01-08 Respiratory Rate 20 2014-01-08 Blood pressure systolic 118 mmHg 2014-01-08 Blood pressure diastolic 68 mmHg 2014-01-08 MEDICATIONS Unknown Medications RESULTS No Results PROCEDURES [...] -- total 11/2012 Hospitalization History ER- in [place] due to left knee 8
--- OUTSIDE RECORDS SUMMARY | 2020-02-11 03:14 | XMS REPORT ---
Author Author АНДРЕЙ Madelineshawn LEONG Organization [facility] Address [address] [place] [address] Care Team Providers Care Project Program Manager Name Role Phone KWESIKennedy DANG Unavailable PROBLEMS Type Condition ICD9-CM Code HYG56-BF Code Onset Dates Condition S tatus SNOMED Code Problem Numbness and tingling in hands R20.2 Active 101803691 Problem History of abnormal cervical Pap smear Z87.898 Active 451414237 Problem Stasis dermatitis of both legs I87.2 Active 91347825 Problem Pre-diabetes R73.09 Active 8262400 02 Problem Morbid obesity due to excess calories E66.01 Active 569586403 Problem GERD (gastroesophageal reflux disease) K21.9 Active 789585874 Problem Mood disorder F39 Active 561502 05 Problem Chronic pain G89.29 Active 8614697 1 Problem BMI 45.0-49.9, adult Z68.42 Active 249165396 Problem Essential hypertension I10 Active 40469621 Problem Primary insomnia F51.01 Active 397 2004 Problem Chronic recurrent major depressive disorder F33.9 Active 8578654 ALLERGIES No Information ENCOUNTERS Encounter Location Date Diagnosis [place] [address] [address] 14 Aug, 2019 BMI 45.0-49.9, adult Z68.42 and Chronic pain G89.29 [facility] [address] [place] [address] Jul, BMI 45.0-49.9, adult Z68.42 and Chronic pain G89.29 [facility] [address] [address] Jul, Pre-diabetes R73.[address] [address] Jun, BMI 45.0-49.9, adult Z68.42 and Chronic pain G89.29 [place] [address] [address] Jun, Acute non-recurrent maxillary sinusitis J01.00 [place] [address] [address] May, Chronic pain G89.29 and BMI 45.0-49.9, a dult Z68.42 [place] [address] [address] Apr, Chronic pain G89.29 and BMI 45.0-49.9, a dult Z68.42 [place] [address] [address] Apr, Mood disorder F39 [place] [address] [address] Mar, Chronic pain G89.29 and BMI 45.0-49.9, a dult Z68.42 [place] [address] [address] Mar, Morbid obesity E66.01 ; Chronic recurren t major depressive disorder F33.9 ; Morbid obesity due to excess calories E66.01 and High risk medication use Z79.899 [place] [address] [address] Mar, Chronic pain G89.29 and BMI 45.0-49.9, a dult Z68.42 [place] [address] [address] Feb, [place] [address] [address] Feb, Chronic pain G89.29 and BMI 45.0-49.9, a dult Z68.42 [place] [address] [address] Jan, [place] [address] [address] 10 Jan, 2019 Chronic pain G89.29 and BMI 45.0-49.9, a dult Z68.42 [place] [address] [address] Jan, [place] [address] [address] December, Chronic pain G89.29 and BMI 45.0-49.9, a dult Z68.42 [place] [address] [address] Nov, Morbid obesity E66.01 and Cellulitis of leg, left L03.116 [place] [address] [address] 15 Nov, 2018 Cellulitis of left lower extremity L03.1 16 and Morbid obesity E66.01 [facility] [address] [facility] [id number] [address] [place] [address] Nov, [place] [address] [address] Nov, Morbid obesity E66.01 and Cellulitis of left lower extremity L03.116 [place] [address] [address] Nov, Chronic pain G89.29 and BMI 45.0-49.9, a dult Z68.42 [place] [address] [address] Oct, BMI 45.0-49.9, adult Z68.42 and Chronic pain G89.29 [place] [address] [address] 14 Sep, 2018 BMI 45.0-49.9, adult Z68.42 and Chronic pain G89.29 [place] [address] [address] 05 Sep, 2018 BMI 45.0-49.9, adult Z68.42 and Essentia l hypertension I10 [place] [address] [address] Aug, BMI 45.0-49.9, adult Z68.42 ; Chronic pa in G89.29 ; Essential hypertension I10 and Primary insomnia F51.01 [place] [address] [address] Aug, Chronic pain G89.29 [place] [address] [address] Jul, Chronic pain G89.29 [place] [address] [address] Jun, Chronic pain G89.29 [place] [address] [address] May, Chronic pain G89.29 [place] [address] [address] May, BMI 40.0-44.9, adult Z68.41 ; 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 ; Pain in right hip M25.551 and Acute pain of left knee M25.562 [place] [address] [address] May, Chronic pain G89.29 [place] [address] [address] Apr, Chronic pain G89.29 [place] [address] [address] Mar, Poison josep L23.7 [place] [address] [address] Mar, Chronic pain G89.29 [place] [address] [address] Feb, Chronic pain G89.29 [place] [address] [address] Feb, Poison josep L23.7 [place] [address] [address] Jan, Chronic pain G89.29 [place] [address] [address] December, Chronic pain G89.29 [place] [address] [address] Nov, Long-term use of high-risk medication Z7 9.899 [place] [address] [address] Nov, Chronic pain G89.29 [place] [address] [address] Oct, Chronic pain G89.29 ; Pre-diabetes R73.0 9 ; Long-term use of high-risk medication Z79.899 ; Allergic rhinitis, unspecified seasonality, unspecified trigger J30.9 ; BMI 45.0-49.9, adult Z68.42 and Essential hypertension I10 [place] [address] [address] Oct, Chronic pain G89.29 [place] [address] [address] Sep, Chronic pain G89.29 [place] [address] [address] Aug, Chronic pain G89.29 [place] [address] [address] Jul, [place] [address] [address] Jul, [place] [address] [address] Jun, Chronic pain G89.29 ; BMI 45.0-49.9, ambreen lt Z68.42 ; Pre-diabetes R73.09 ; Essential hypertension I10 ; GERD (gastroesophageal reflux disease) K21.9 ; Yeast dermatitis B37.2 ; Dysuria R30.0 ; Acute non-recurrent maxillary sinusitis J01.00 and Acute cystitis with hematuria N30.01 [place] [address] [address] 13 Jun, 2017 Chronic pain G89.29 [place] [address] [address] Jun, Acute non-recurrent maxillary sinusitis J01.00 and BMI 45.0-49.9, adult Z68.42 [place] [address] [address] May, [address] [address] May, Chronic pain G89.[address] [address] May, [address] [address] Apr, Chronic pain G89.29 [place] [address] [address] Mar, [address] [address] Mar, Essential hypertension I10 and Pre-diabe sondra R73.[address] [address] Mar, Chronic pain G89.29 ; Essential hyperten homar I10 ; Depressive disorder, not elsewhere classified F32.9 ; GERD (gastroesophageal reflux disease) K21.9 ; Pre-diabetes R73.09 ; Stasis dermatitis of both legs I87.2 and Acute non-recurrent maxillary sinusitis J01.00 [place] [address] [address] Mar, Chronic pain G89.[address] [address] Mar, Achilles tendinitis of right lower extre mity M76.61 and Tinea corporis B35.4 [place] [address] [address] Feb, Yeast dermatitis B37.2 [place] [address] [address] Feb, Candidal intertrigo B37.2 and Acute righ t ankle pain M25.571 [place] [address] [address] Feb, Chronic pain G89.[address] [address] Jan, [place] [address] [address] Jan, Chronic pain G89.[address] [address] December, Chronic pain G89.29 ; Essential hyperten homar I10 ; Depressive disorder, not elsewhere classified F32.9 ; GERD (gastroesophageal reflux disease) K21.9 ; Pre-diabetes R73.09 ; Screening breast examination Z12.39 ; Stasis dermatitis of both legs I87.2 and Yeast dermatitis B37.2 [place] [address] [address] Nov, Chronic pain G89.29 [place] [address] [address] Nov, Cellulitis of left lower extremity L03.1 16 [place] [address] [address] Nov, Cellulitis of left lower extremity L03.1 16 [place] [address] [address] Oct, Yeast dermatitis B37.2 [place] [address] [address] Oct, Chronic pain G89.29 [facility] [address] [address] Sep, Chronic pain G89.29 ; Essential hyperten homar I10 ; Depressive disorder, not elsewhere classified F32.9 and GERD (gastroesophageal reflux disease) K21.9 [place] [address] [address] Aug, Chronic pain G89.29 [place] [address] [address] Aug, Cough R05 ; Rash R21 and Rash and nonspe cific skin eruption R21 [address] [address] Jul, Chronic pain G89.29 [place] [address] [address] Jun, Chronic pain G89.29 ; Bronchitis J40 ; E ssential hypertension I10 ; Depressive disorder, not elsewhere classified F32.9 ; GERD (gastroesophageal reflux disease) K21.9 and History of long-term use of multiple prescription drugs Z92.29 [place] [address] [address] Jun, Bronchitis J40 ; Chills R68.83 and Sore throat J02.9 [place] [address] [address] May, [place] [address] [address] Apr, [facility] [address] [facility] [id number] [address] [place] [address] Apr, Acute mucoid otitis media of both ears H65.113 [place] [address] [address] 07 Apr, 2016 Yeast dermatitis B37.2 and Hematuria R31 .9 [place] [address] [address] Mar, [place] [address] [address] Mar, [place] [address] [address] Feb, Left anterior knee pain M25.562 [place] [address] [address] Feb, Chronic pain G89.29 ; Essential hyperten homar I10 ; Depressive disorder, not elsewhere classified F32.9 ; GERD (gastroesophageal reflux disease) K21.9 and History of long-term use of multiple prescription drugs Z92.29 [place] [address] [address] Jan, [place] [address] [address] Jan, Well woman exam Z01.419 ; BMI 45.0-49.9, adult Z68.42 ; Family history of diabetes mellitus Z83.3 and Chronic pain G89.29 [place] [address] [address] December, Chronic pain G89.29 ; Essential hyperten homar I10 ; Depressive disorder, not elsewhere classified F32.9 ; GERD (gastroesophageal reflux disease) K21.9 ; 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 ; History of long-term use of multiple prescription drugs Z92.29 and Obesity E66.9 [place] [address] [address] Oct, [place] [address] [address] Oct, Well woman exam Z01.419 ; BMI [...] smear Z12.4 and No natural teeth K00.0 [place] [address] [address] Oct, [place] [address] [place] [address] Sep, Chronic pain G89.29 ; Essential hyperten homar I10 ; GERD (gastroesophageal reflux disease) K21.9 ; 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 ; Skin infection L08.9 and History of long-term use of multiple prescription drugs Z92.29 [place] [address] [address] Aug, [address] [address] Jul, [address] [address] Jul, [address] [address] Jul, Upper respiratory infection J06.[address] [address] Jul, Depressive disorder, not elsewhere class ified F32.[address] [address] Jul, Chronic pain 338.29 [place] [address] Jul, Chronic pain G89.29 [place] [address] [address] Jun, Poison josep L23.[address] [address] Jun, Allergic contact dermatitis due to plant s, except food L23.7 [place] [address] [address] Jun, Essential hypertension I10 ; Chronic znae n G89.29 ; GERD (gastroesophageal reflux disease) K21.9 and Numbness and tingling in hands R20.2 [place] [address] [address] May, [place] [address] [address] Apr, [place] [address] [address] Mar, [place] [address] [address] Feb, Abdominal pain, left lateral 789.09 and Constipation 564.[address] [address] Feb, Depressive disorder, not elsewhere class ified 311 and No condition on [place] II V71.[address] [address] Feb, Spider bite 989.5 and Depression 311 [place] [address] [address] Feb, [address] [address] Feb, Chronic pain 338.29 ; 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 and GERD (gastroesophageal reflux disease) 530.[address] [address] Jan, Insect bites 919.4 [place] [address] [address] Jan, [place] [address] [address] December, Skin infection, bacterial 686.9 ; Conjun ctivitis 372.30 and Insect bites 919.4 [place] [address] [address] December, Chronic pain 338.29 ; 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 ; Skin infection, bacterial 686.9 and Conjunctivitis 372.30 [facility] [address] [id number] [place] [address] December, [facility] [address] [place] [id number] [place] [address] Nov, [facility] [address] [id number] [place] [address] Nov, [facility] [address] [place] [id number] [place] [address] Oct, [facility] [address] [id number] [place] [address] Oct, [facility] [address] [place] [id number] [place] [address] Sep, [facility] [address] [place] [id number] [place] [address] Sep, [facility] [address] [place] [id number] [place] [address] Aug, [facility] [address] [place] [id number] [place] [address] Aug, [facility] [address] [place] [id number] [place] [address] Aug, [facility] [address] [place] [id number] [place] [address] Aug, [facility] [address] [place] [id number] [place] [address] Jul, [facility] [address] [id number] [place] [address] Jul, [facility] [address] [place] [id number] [place] [address] Jul, [facility] [address] [place] [id number] [place] [address] Jul, [facility] [place] [facility] [address] [place] [id number] [place] [address] Jul, [facility] [address] [place] [id number] [place] [address] 15 Jul, 2014 [facility] [place] [facility] [address] [id number] [place] [address] Jul, [facility] [place] [facility] [address] [id number] [place] [address] Jul, [facility] [place] [facility] [address] [id number] [place] [address] Jul, [facility] [place] [facility] [address] [id number] [place] [address] Jun, [facility] [place] [facility] [address] [id number] [place] [address] Jun, [facility] [place] [facility] [address] [id number] [place] [address] Jun, [facility] [place] [facility] [address] [id number] [place] [address] Jun, [facility] [place] [facility] [address] [id number] [place] [address] Jun, [facility] [place] [facility] [address] [id number] [place] [address] Jun, [facility] [place] [facility] [address] [id number] [place] [address] Jun, [facility] [place] [facility] [address] [id number] [place] [address] Jun, [facility] [place] [facility] [address] [id number] [place] [address] May, [facility] [place] [facility] [address] [id number] [place] [address] May, [facility] [place] [facility] [address] [place] [id number] [place] [address] May, [facility] [place] [facility] [address] [id number] [place] [address] May, [facility] [place] [facility] [address] [id number] [place] [address] May, [facility] [place] [facility] [address] [id number] [place] [address] Apr, 2013 [facility] [place] [facility] [address] [id number] [place] [address] Apr, 2013 [facility] [place] [facility] [address] [id number] [place] [address] Apr, 2013 [facility] [place] [facility] [address] [id number] [place] [address] Apr, 2013 [facility] [place] [facility] [address] [id number] [place] [address] Apr, 2013 [facility] [place] [facility] [address] [id number] [place] [address] Apr, 2013 [facility] [place] [facility] [address] [id number] [place] [address] Apr, 2013 [facility] [place] [facility] [address] [id number] [place] [address] Apr, [facility] [place] [facility] [address] [id number] [place] [address] Apr, [facility] [place] [facility] [address] [id number] [place] [address] Apr, [facility] [place] [facility] [address] [id number] [place] [address] Mar, [facility] [place] [facility] [address] [id number] [place] [address] Mar, [facility] [place] [facility] [address] [id number] [place] [address] Mar, [facility] [place] [facility] [address] [id number] [place] [address] Mar, [facility] [place] [facility] [address] [id number] [place] [address] Mar, [facility] [place] [facility] [address] [id number] [place] [address] Mar, [facility] [place] [facility] [address] [id number] [place] [address] Feb, [facility] [place] [facility] [address] [facility] [id number] [place] [address] Feb, [facility] [place] [facility] [address] [facility] [id number] [place] [address] Jan, [facility] [place] [facility] [address] [id number] [place] [address] Jan, [facility] [place] [facility] [address] [id number] [place] [address] Jan, [facility] [place] [facility] [address] [facility] [id number] [place] [address] Jan, [facility] [place] [facility] [address] [id number] [place] [address] December, [facility] [place] [facility] [address] [id number] [place] [address] December, [facility] [place] [facility] [address] [id number] [place] [address] December, [facility] [place] [facility] [address] [id number] [place] [address] December, [facility] [place] [facility] [address] [id number] [place] [address] December, [facility] [place] [facility] [address] [id number] [place] [address] December, [facility] [place] [facility] [address] [id number] [place] [address] December, [facility] [place] [facility] [address] [id number] [place] [address] December, [facility] [place] [facility] [address] [id number] [place] [address] December, [facility] [place] [facility] [address] [id number] [place] [address] Nov, [facility] [place] [facility] [address] [id number] [place] [address] Nov, [facility] [place] [facility] [address] [id number] [place] [address] Nov, [facility] [place] [facility] [address] [id number] [place] [address] Nov, [facility] [place] [facility] [address] [id number] [place] [address] Nov, [facility] [place] [facility] [address] [id number] [place] [address] Nov, [facility] [place] [facility] [address] [id number] [place] [address] Nov, [facility] [place] [facility] [address] [id number] [place] [address] Nov, [facility] [place] [facility] [address] [id number] [place] [address] Nov, [facility] [address] [id number] [place] [address] Nov, [facility] [address] [id number] [place] [address] Oct, [facility] [address] [id number] [place] [address] Oct, [facility] [address] [id number] [place] [address] Sep, [facility] [address] [id number] [place] [address] Sep, [facility] [address] [id number] [place] [address] Aug, [facility] [address] [id number] [place] [address] Aug, [facility] [id number] [place] [address] Aug, [facility] [address] [id number] [place] [address] Aug, [facility] [address] [id number] [place] [address] Jul, [facility] [address] [id number] [place] [address] Jul, [facility] [address] [id number] [place] [address] Jul, [facility] [address] [id number] [place] [address] Jul, [facility] [address] [id number] [place] [address] Jun, [facility] [address] [id number] [place] [address] Jun, [facility] [address] [id number] [place] [address] May, [facility] [address] [id number] [place] [address] May, [facility] [address] [id number] [place] [address] May, [facility] [address] [id number] [place] [address] May, [facility] [address] [id number] [place] [address] May, [facility] [address] [id number] [place] [address] May, [facility] [address] [id number] [place] [address] 30 Apr, 2013 [facility] [address] [id number] [place] [address] Apr, [facility] [address] [id number] [place] [address] Apr, [facility] [address] [id number] [place] [address] Feb, [facility] [address] [id number] [place] [address] Jan, [facility] [address] [id number] [place] [address] 18 Jan, 2013 [facility] [address] [facility] [id number] [facility] [place] [address] Jan, [facility] [address] [id number] [facility] [place] [address] Jan, [facility] [address] [id number] [place] [address] December, [facility] [address] [id number] [facility] [place] [address] December, [facility] [address] [facility] [id number] [facility] [place] [address] 24 Nov, 2012 [facility] [address] [id number] [place] [address] Nov, [facility] [address] [id number] [place] [address] Nov, [facility] [address] [id number] [place] [address] Nov, [facility] [address] [id number] [place] [address] Nov, [facility] [address] [id number] [place] [address] Nov, [facility] [address] [id number] [place] [address] Nov, [facility] [address] [id number] [place] [address] 27 Oct, 2012 [facility] [address] [id number] [place] [address] 18 Oct, 2012 [facility] [address] [id number] [place] [address] 14 Oct, 2012 [facility] [address] [id number] [place] [address] 13 Oct, 2012 [facility] [address] [id number] [place] [address] 12 Oct, 2012 [facility] [id number] [place] [address] Oct, [facility] [id number] [place] [address] Oct, [facility] [id number] [place] [address] Sep, [facility] [id number] [place] [address] Sep, [facility] [id number] [place] [address] Aug, [facility] [id number] [place] [address] Aug, [facility] [id number] [place] [address] Jul, [facility] [id number] [place] [address] Jul, [facility] [id number] [place] [address] Jul, [facility] [id number] [place] [address] Jul, [facility] [id number] [place] [address] Jul, [facility] [id number] [place] [address] Jul, [facility] [id number] [place] [address] Jul, [facility] [id number] [place] [address] Jul, [facility] [id number] [place] [address] Jun, [facility] [id number] [place] [address] Jun, IMMUNIZATIONS No Known Immunizations SOCIAL HISTORY [...] -- total 11/2012 Hospitalization History ER- in [place] due to left knee 8
--- OUTSIDE RECORDS SUMMARY | 2020-02-11 03:14 | XMS REPORT ---
Author Author АНДРЕЙ Madelineshawn LEONG Organization [facility] Address [address] [place] [address] Care Team Providers Care Science Faculty Member Name Role Phone KWESIKennedy DANG Unavailable PROBLEMS Type Condition ICD9-CM Code [id number] Code Onset Dates Condition S tatus SNOMED Code Problem Numbness and tingling in hands R20.2 Active 459578685 Problem History of abnormal cervical Pap smear Z87.898 Active 560732722 Problem Stasis dermatitis of both legs I87.2 Active 75615563 Problem Pre-diabetes R73.09 Active 0143849 02 Problem Morbid obesity due to excess calories E66.01 Active 976188070 Problem GERD (gastroesophageal reflux disease) K21.9 Active 892633907 Problem Mood disorder F39 Active 710415 05 Problem Chronic pain G89.29 Active 1910137 1 Problem BMI 45.0-49.9, adult Z68.42 Active 086731160 Problem Essential hypertension I10 Active 77693332 Problem Primary insomnia F51.01 Active 397 2004 Problem Chronic recurrent major depressive disorder F33.9 Active 4987512 ALLERGIES No Information ENCOUNTERS Encounter Location Date Diagnosis [place] [address] [address] 20 Aug, 2019 Acute non-recurrent maxillary sinusitis J01.00 and Tinea corporis B35.[address] [address] 14 Aug, 2019 BMI 45.0-49.9, adult Z68.42 and Chronic pain G89.[address] [address] Jul, BMI 45.0-49.9, adult Z68.42 and Chronic pain G89.[address] [address] Jul, Pre-diabetes R73.09 [place] [address] [address] Jun, BMI 45.0-49.9, adult Z68.42 and Chronic pain G89.29 [place] [address] [address] Jun, Acute non-recurrent maxillary sinusitis J01.00 [place] [address] [address] May, Chronic pain G89.29 and BMI 45.0-49.9, a dult Z68.42 [place] [address] [address] Apr, Chronic pain G89.29 and BMI 45.0-49.9, a dult Z68.42 [place] [address] [address] Apr, Mood disorder F39 [place] [address] [address] Mar, Chronic pain G89.29 and BMI 45.0-49.9, a dult Z68.42 [place] [address] [address] Mar, Morbid obesity E66.01 ; Chronic recurren t major depressive disorder F33.9 ; Morbid obesity due to excess calories E66.01 and High risk medication use Z79.899 [place] [address] [address] Mar, Chronic pain G89.29 and BMI 45.0-49.9, a dult Z68.42 [place] [address] [address] Feb, [place] [address] [address] Feb, Chronic pain G89.29 and BMI 45.0-49.9, a dult Z68.42 [place] [address] [address] 11 Jan, 2019 [place] [address] [address] 10 Jan, 2019 Chronic pain G89.29 and BMI 45.0-49.9, a dult Z68.42 [place] [address] [address] Jan, [place] [address] [address] December, Chronic pain G89.29 and BMI 45.0-49.9, a dult Z68.42 [place] [address] [address] 24 Nov, 2018 Morbid obesity E66.01 and Cellulitis of leg, left L03.116 [place] [address] [address] 15 Nov, 2018 Cellulitis of left lower extremity L03.1 16 and Morbid obesity E66.01 [facility] [address] [facility] [id number] [address] [place] [address] Nov, [place] [address] [address] Nov, Morbid obesity E66.01 and Cellulitis of left lower extremity L03.116 [place] [address] [address] Nov, Chronic pain G89.29 and BMI 45.0-49.9, a dult Z68.42 [place] [address] [address] Oct, BMI 45.0-49.9, adult Z68.42 and Chronic pain G89.29 [place] [address] [address] 14 Sep, 2018 BMI 45.0-49.9, adult Z68.42 and Chronic pain G89.29 [place] [address] [address] Sep, BMI 45.0-49.9, adult Z68.42 and Essentia l hypertension I10 [place] [address] [address] Aug, BMI 45.0-49.9, adult Z68.42 ; Chronic pa in G89.29 ; Essential hypertension I10 and Primary insomnia F51.01 [place] [address] [address] Aug, Chronic pain G89.29 [place] [address] [address] Jul, Chronic pain G89.29 [place] [address] [address] Jun, Chronic pain G89.29 [place] [address] [address] May, Chronic pain G89.29 [place] [address] [address] May, BMI 40.0-44.9, adult Z68.41 ; 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 ; Pain in right hip M25.551 and Acute pain of left knee M25.562 [place] [address] [address] May, Chronic pain G89.29 [place] [address] [address] Apr, Chronic pain G89.29 [place] [address] [address] Mar, Poison josep L23.7 [place] [address] [address] Mar, Chronic pain G89.29 [place] [address] [address] Feb, Chronic pain G89.29 [place] [address] [address] Feb, Poison josep L23.7 [place] [address] [address] Jan, Chronic pain G89.29 [place] [address] [address] December, Chronic pain G89.29 [place] [address] [address] Nov, Long-term use of high-risk medication Z7 9.899 [place] [address] [address] Nov, Chronic pain G89.29 [place] [address] [address] Oct, Chronic pain G89.29 ; Pre-diabetes R73.0 9 ; Long-term use of high-risk medication Z79.899 ; Allergic rhinitis, unspecified seasonality, unspecified trigger J30.9 ; BMI 45.0-49.9, adult Z68.42 and Essential hypertension I10 [place] [address] [address] Oct, Chronic pain G89.29 [place] [address] [address] Sep, Chronic pain G89.29 [place] [address] [address] Aug, Chronic pain G89.29 [place] [address] [address] Jul, [place] [address] [address] Jul, [place] [address] [address] Jun, Chronic pain G89.29 ; BMI 45.0-49.9, ambreen lt Z68.42 ; Pre-diabetes R73.09 ; Essential hypertension I10 ; GERD (gastroesophageal reflux disease) K21.9 ; Yeast dermatitis B37.2 ; Dysuria R30.0 ; Acute non-recurrent maxillary sinusitis J01.00 and Acute cystitis with hematuria N30.01 [place] [address] [address] Jun, Chronic pain G89.29 [place] [address] [address] Jun, Acute non-recurrent maxillary sinusitis J01.00 and BMI 45.0-49.9, adult Z68.42 [place] [address] [address] May, [place] [address] [address] May, Chronic pain G89.29 [place] [address] [address] May, [place] [address] [address] Apr, Chronic pain G89.29 [place] [address] [address] Mar, [place] [address] [address] Mar, Essential hypertension I10 and Pre-diabe sondra R73.09 [place] [address] [address] Mar, Chronic pain G89.29 ; Essential hyperten homar I10 ; Depressive disorder, not elsewhere classified F32.9 ; GERD (gastroesophageal reflux disease) K21.9 ; Pre-diabetes R73.09 ; Stasis dermatitis of both legs I87.2 and Acute non-recurrent maxillary sinusitis J01.00 [place] [address] [address] Mar, Chronic pain G89.29 [place] [address] [address] 07 Mar, 2017 Achilles tendinitis of right lower extre mity M76.61 and Tinea corporis B35.[address] [address] 17 Feb, 2017 Yeast dermatitis B37.[address] [address] Feb, Candidal intertrigo B37.2 and Acute righ t ankle pain M25.[address] [address] Feb, Chronic pain G89.[address] [address] Jan, [address] [address] Jan, Chronic pain G89.[address] [address] December, Chronic pain G89.29 ; Essential hyperten homar I10 ; Depressive disorder, not elsewhere classified F32.9 ; GERD (gastroesophageal reflux disease) K21.9 ; Pre-diabetes R73.09 ; Screening breast examination Z12.39 ; Stasis dermatitis of both legs I87.2 and Yeast dermatitis B37.2 [place] [address] [address] Nov, Chronic pain G89.[address] [address] Nov, Cellulitis of left lower extremity L03.[address] [address] 17 Nov, 2016 Cellulitis of left lower extremity L03.[address] [address] Oct, Yeast dermatitis B37.2 [place] [address] [address] Oct, Chronic pain G89.29 [place] [address] [address] Sep, Chronic pain G89.29 ; Essential hyperten homar I10 ; Depressive disorder, not elsewhere classified F32.9 and GERD (gastroesophageal reflux disease) K21.9 [place] [address] [address] Aug, Chronic pain G89.[address] [address] Aug, Cough R05 ; Rash R21 and Rash and nonspe cific skin eruption R21 [address] [address] Jul, Chronic pain G89.29 [place] [address] [address] Jun, Chronic pain G89.29 ; Bronchitis J40 ; E ssential hypertension I10 ; Depressive disorder, not elsewhere classified F32.9 ; GERD (gastroesophageal reflux disease) K21.9 and History of long-term use of multiple prescription drugs Z92.[address] [address] Jun, Bronchitis J40 ; Chills R68.83 and Sore throat J02.9 [place] [address] [address] May, [address] [address] Apr, [facility] [address] [facility] [id number] [address] [place] [address] 19 Apr, 2016 Acute mucoid otitis media of both ears H65.[address] [address] Apr, Yeast dermatitis B37.2 and Hematuria R31 .9 [place] [address] [address] Mar, [place] [address] [address] Mar, [place] [address] [address] Feb, Left anterior knee pain M25.562 [place] [address] [address] Feb, Chronic pain G89.29 ; Essential hyperten homar I10 ; Depressive disorder, not elsewhere classified F32.9 ; GERD (gastroesophageal reflux disease) K21.9 and History of long-term use of multiple prescription drugs Z92.29 [place] [address] [address] Jan, [place] [address] [address] Jan, Well woman exam Z01.419 ; BMI 45.0-49.9, adult Z68.42 ; Family history of diabetes mellitus Z83.3 and Chronic pain G89.29 [place] [address] [address] December, Chronic pain G89.29 ; Essential hyperten homar I10 ; Depressive disorder, not elsewhere classified F32.9 ; GERD (gastroesophageal reflux disease) K21.9 ; 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 ; History of long-term use of multiple prescription drugs Z92.29 and Obesity E66.9 [place] [address] [address] Oct, [place] [address] Oct, Well woman exam Z01.419 ; BMI [...] smear Z12.4 and No natural teeth K00.0 [place] [address] Oct, [place] [address] Sep, Chronic pain G89.29 ; Essential hyperten homar I10 ; GERD (gastroesophageal reflux disease) K21.9 ; 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 ; Skin infection L08.9 and History of long-term use of multiple prescription drugs Z92.[address] [address] Aug, [place] [address] Jul, [address] [address] Jul, [address] [address] Jul, Upper respiratory infection J06.[address] [address] Jul, Depressive disorder, not elsewhere class ified F32.[address] [address] Jul, Chronic pain 338.[address] [address] Jul, Chronic pain G89.[address] [address] Jun, Poison josep L23.[address] [address] Jun, Allergic contact dermatitis due to plant s, except food L23.7 [place] [address] [address] Jun, Essential hypertension I10 ; Chronic zane n G89.29 ; GERD (gastroesophageal reflux disease) K21.9 and Numbness and tingling in hands R20.2 [place] [address] [address] May, [place] [address] [address] Apr, [place] [address] [address] Mar, [place] [address] [address] Feb, Abdominal pain, left lateral 789.09 and Constipation 564.[address] [address] Feb, Depressive disorder, not elsewhere class ified 311 and No condition on [place] II V71.09 [place] [address] [address] Feb, Spider bite 989.5 and Depression 311 [place] [address] [address] Feb, [place] [address] [address] Feb, Chronic pain 338.29 ; 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 and GERD (gastroesophageal reflux disease) 530.81 [place] [address] [address] Jan, Insect bites 919.4 [place] [address] [address] Jan, [place] [address] [address] December, Skin infection, bacterial 686.9 ; Conjun ctivitis 372.30 and Insect bites 919.4 [facility] [address] [place] [id number] [place] [address] December, Chronic pain 338.29 ; 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 ; Skin infection, bacterial 686.9 and Conjunctivitis 372.30 [facility] [address] [place] [id number] [place] [address] December, [facility] [address] [place] [id number] [place] [address] Nov, [facility] [address] [place] [id number] [place] [address] Nov, [facility] [address] [address] Oct, [facility] [address] [place] [id number] [place] [address] Oct, [facility] [address] [place] [id number] [place] [address] Sep, [facility] [address] [place] [id number] [place] [address] Sep, [facility] [address] [address] Aug, [facility] [address] [place] [id number] [place] [address] Aug, [facility] [address] [place] [id number] [place] [address] Aug, [facility] [address] [place] [id number] [place] [address] Aug, [facility] [address] [place] [id number] [place] [address] Jul, [facility] [address] [place] [id number] [place] [address] Jul, [facility] [place] [address] [place] [id number] [place] [address] Jul, [facility] [address] [place] [id number] [place] [address] 15 Jul, 2014 [facility] [address] [id number] [place] [address] Jul, [facility] [address] [id number] [place] [address] Jul, [facility] [address] [id number] [place] [address] Jul, [facility] [address] [id number] [place] [address] Jul, [facility] [address] [id number] [place] [address] Jul, [facility] [address] [id number] [place] [address] Jun, [facility] [address] [id number] [place] [address] Jun, [facility] [address] [id number] [place] [address] Jun, [facility] [address] [id number] [place] [address] Jun, [facility] [address] [id number] [place] [address] Jun, [facility] [address] [id number] [place] [address] Jun, [facility] [address] [id number] [place] [address] Jun, [facility] [address] [id number] [place] [address] Jun, [facility] [address] [id number] [place] [address] May, [facility] [address] [id number] [place] [address] May, [facility] [address] [id number] [place] [address] 16 May, 2014 [facility] [address] [id number] [place] [address] May, [facility] [address] [id number] [place] [address] May, [facility] [address] [id number] [place] [address] Apr, [facility] [address] [id number] [place] [address] Apr, [facility] [address] [id number] [place] [address] Apr, [facility] [address] [id number] [place] [address] Apr, [facility] [address] [id number] [place] [address] Apr, [facility] [address] [id number] [place] [address] Apr, [facility] [address] [id number] [place] [address] Apr, [facility] [address] [id number] [place] [address] Apr, [facility] [address] [id number] [place] [address] Apr, [facility] [address] [id number] [place] [address] Apr, [facility] [address] [id number] [place] [address] Mar, [facility] [address] [id number] [place] [address] Mar, [facility] [address] [id number] [place] [address] Mar, [facility] [address] [id number] [place] [address] Mar, [facility] [address] [id number] [place] [address] Mar, [facility] [address] [id number] [place] [address] Mar, [facility] [address] [id number] [place] [address] Feb, [facility] [address] [id number] [place] [address] Feb, [facility] [address] [id number] [place] [address] Jan, [facility] [address] [id number] [place] [address] Jan, [facility] [address] [id number] [place] [address] Jan, [facility] [address] [id number] [place] [address] Jan, [facility] [address] [id number] [place] [address] December, [facility] [address] [id number] [place] [address] December, [facility] [address] [id number] [place] [address] December, [facility] [address] [id number] [place] [address] December, [facility] [address] [id number] [place] [address] December, [facility] [address] [id number] [place] [address] December, [facility] [address] [id number] [place] [address] December, [facility] [address] [id number] [place] [address] December, [facility] [address] [id number] [place] [address] December, [facility] [address] [id number] [place] [address] Nov, [facility] [address] [facility] [id number] [place] [address] Nov, [facility] [address] [facility] [id number] [facility] [address] Nov, [facility] [address] [id number] [place] [address] Nov, [facility] [address] [id number] [place] [address] Nov, [facility] [address] [facility] [id number] [facility] [address] Nov, [facility] [address] [id number] [place] [address] Nov, [facility] [address] [id number] [place] [address] Nov, [facility] [address] [id number] [place] [address] Nov, [facility] [address] [id number] [place] [address] Nov, [facility] [address] [id number] [place] [address] Oct, [facility] [address] [id number] [place] [address] Oct, [facility] [address] [id number] [place] [address] Sep, [facility] [address] [facility] [id number] [place] [address] Sep, [facility] [address] [id number] [place] [address] Aug, [facility] [address] [id number] [place] [address] Aug, [facility] [address] [id number] [place] [address] Aug, [facility] [address] [id number] [place] [address] 16 Aug, 2013 [facility] [address] [id number] [place] [address] Jul, [facility] [address] [id number] [place] [address] Jul, [facility] [address] [id number] [place] [address] Jul, [facility] [address] [id number] [place] [address] Jul, [facility] [address] [id number] [place] [address] Jun, [facility] [address] [id number] [place] [address] Jun, [facility] [id number] [place] [address] May, [facility] [id number] [place] [address] May, [facility] [address] [id number] [place] [address] May, [facility] [address] [id number] [place] [address] May, [facility] [id number] [place] [address] May, [facility] [address] [id number] [place] [address] May, [facility] [address] [id number] [place] [address] 30 Apr, 2013 [facility] [id number] [place] [address] Apr, [facility] [address] [id number] [place] [address] Apr, [facility] [id number] [place] [address] Feb, [facility] [id number] [place] [address] Jan, [facility] [address] [id number] [place] [address] Jan, [facility] [address] [id number] [place] [address] 17 Jan, 2013 [facility] [address] [id number] [place] [address] Jan, [facility] [address] [facility] [id number] [place] [address] December, [facility] [address] [id number] [place] [address] December, [facility] [address] [id number] [place] [address] 24 Nov, 2012 [facility] [address] [id number] [place] [address] Nov, [facility] [address] [id number] [place] [address] Nov, [facility] [address] [id number] [place] [address] Nov, [facility] [address] [id number] [place] [address] 08 Nov, 2012 [facility] [address] [id number] [place] [address] 08 Nov, 2012 [facility] [address] [id number] [place] [address] Nov, [facility] [address] [id number] [place] [address] 27 Oct, 2012 [facility] [address] [id number] [place] [address] 18 Oct, 2012 [facility] [address] [id number] [place] [address] 14 Oct, 2012 [facility] [address] [id number] [place] [address] 13 Oct, 2012 [facility] [address] [id number] [place] [address] Oct, [facility] [address] [id number] [place] [address] Oct, [facility] [address] [id number] [place] [address] 08 Oct, 2012 [facility] [address] [id number] [place] [address] Sep, [facility] [address] [id number] [place] [address] Sep, [facility] [address] [id number] [place] [address] Aug, [facility] [address] [id number] [place] [address] Aug, [facility] [address] [id number] [place] [address] Jul, [facility] [address] [id number] [place] [address] Jul, [facility] [address] [id number] [place] [address] Jul, [facility] [facility] [id number] [place] [address] Jul, [facility] [id number] [place] [address] Jul, [facility] [id number] [place] [address] Jul, [facility] [id number] [place] [address] Jul, [facility] [id number] [place] [address] Jul, [facility] [id number] [place] [address] Jun, [facility] [id number] [place] [address] Jun, IMMUNIZATIONS No Known Immunizations SOCIAL HISTORY Never Assessed REASON FOR VISIT PLAN OF CARE VITAL SIGNS Height 62 in 2013-12-11 Weight 253 lbs 2013-12-11 Temperature 98.9 degrees Fahrenheit 2013-12-11 Heart Rate 80 bpm 2013-12-11 Respiratory Rate 22 2013-12-11 Blood pressure systolic 124 mmHg 2013-12-11 Blood pressure diastolic 70 mmHg 2013-12-11 MEDICATIONS No Known Medications RESULTS No Results PROCEDURES Procedure Date Ordered Result Body Site CULTURE, BACTERIA, OTHER December 11, 2013 INSTRUCTIONS MEDICATIONS ADMINISTERED No Known [...] -- total 11/2012 Hospitalization History ER- in [place] due to left knee 8
--- OUTSIDE RECORDS SUMMARY | 2020-02-11 03:15 | XMS REPORT ---
Author Author АНДРЕЙ Madelineshawn LEONG Organization [facility] [place] Address [address] [place] [address] Care Team Providers Care Lap Grinder Name Role Phone KWESIKennedy DANG Unavailable PROBLEMS Type Condition ICD9-CM Code [id number] Code Onset Dates Condition S tatus SNOMED Code Problem Numbness and tingling in hands R20.2 Active 518375702 Problem History of abnormal cervical Pap smear Z87.898 Active 472757655 Problem Stasis dermatitis of both legs I87.2 Active 66641119 Problem Pre-diabetes R73.09 Active 3485599 02 Problem Morbid obesity due to excess calories E66.01 Active 757393272 Problem GERD (gastroesophageal reflux disease) K21.9 Active 680470937 Problem Mood disorder F39 Active 633207 05 Problem Chronic pain G89.29 Active 8922832 1 Problem BMI 45.0-49.9, adult Z68.42 Active 781705814 Problem Essential hypertension I10 Active 39530086 Problem Primary insomnia F51.01 Active 397 2004 Problem Chronic recurrent major depressive disorder F33.9 Active 6286144 ALLERGIES No Information ENCOUNTERS Encounter Location Date Diagnosis [place] [id number] [facility] [id number] [address] [place] [address] May, [facility] [place] [address] [place] [id number] [address] [place] [address] 25 Apr, 2019 Chronic pain G89.29 and BMI 45.0-49.9, adult Z68.42 [facility] [place] [address] [place] [id number] [address] [place] [address] 13 Apr, 2019 Mood disorder F39 [facility] [place] [address] [facility] [id number] [address] [place] [address] Mar, Chronic pain G89.29 and BMI 45.0-49.9, adult Z68.42 [facility] [place] [address] [facility] [id number] [address] [place] [address] Mar, Morbid obesity E66.01 ; [place] [employer]er david recurrent major depressive disorder F33.9 ; Morbid obesity due to excess calories E66.01 and High risk medication use Z79.899 [facility] [place] [address] [facility] [id number] [address] [place] [address] Mar, Chronic pain G89.29 and BMI 45.0-49.9, adult Z68.42 [place] [address] [facility] [id number] [address] [place] [address] Feb, [place] [address] [place] [id number] [place] [address] Feb, Chronic pain G89.29 and BMI 45.0-49.9, adult Z68.42 [place] [address] [place] [id number] [address] [place] [address] Jan, [facility] [place] [address] [place] [id number] [address] [place] [address] Jan, Chronic pain G89.29 and BMI 45.0-49.9, adult Z68.42 [facility] [place] [address] [facility] [id number] [address] [place] [address] Jan, [place] [address] [facility] [id number] [address] [place] [address] December, Chronic pain G89.29 and BMI 45.0-49.9, adult Z68.42 [facility] [place] [address] [facility] [id number] [address] [place] [address] Nov, Morbid obesity E66.01 and Ce llulitis of leg, left L03.116 [facility] [place] [address] [facility] [id number] [address] [place] [address] 15 Nov, 2018 Cellulitis of left lower ext remity L03.116 and Morbid obesity E66.01 [facility] [address] [address] 13 Nov, 2018 [place] [address] [address] 12 Nov, 2018 Morbid obesity E66.01 and Ce llulitis of left lower extremity L03.116 [place] [address] [address] 11 Nov, 2018 Chronic pain G89.29 and BMI 45.0-49.9, adult Z68.42 [place] [address] [address] Oct, BMI 45.0-49.9, adult Z68.42 and Chronic pain G89.29 [place] [address] [address] 14 Sep, 2018 BMI 45.0-49.9, adult Z68.42 and Chronic pain G89.29 [place] [address] [address] 05 Sep, 2018 BMI 45.0-49.9, adult Z68.42 and Essential hypertension I10 [place] [address] [address] Aug, BMI 45.0-49.9, adult Z68.42 ; Chronic pain G89.29 ; Essential hypertension I10 and Primary insomnia F51.01 [place] [address] [address] Aug, Chronic pain G89.29 [place] [address] [address] Jul, Chronic pain G89.29 [place] [address] [address] Jun, Chronic pain G89.29 [place] [address] [address] May, Chronic pain G89.29 [place] [address] [id number] [address] [place] [address] May, BMI 40.0-44.9, adult Z68.41 ; Other chronic pain G89.29 ; Pain in right hip M25.551 and Acute pain of left knee M25.562 [facility] [place] [address] [id number] [address] [place] [address] May, Chronic pain G89.29 [facility] [place] [address] [id number] [address] [place] [address] Apr, Chronic pain G89.29 [facility] [place] [address] [facility] [id number] [address] [place] [address] Mar, Poison josep L23.7 [facility] [place] [address] [facility] [id number] [address] [place] [address] Mar, Chronic pain G89.29 [facility] [place] [address] [facility] [id number] [address] [place] [address] Feb, Chronic pain G89.29 [facility] [place] [address] [facility] [id number] [address] [place] [address] Feb, Poison josep L23.7 [facility] [place] [address] [facility] [id number] [address] [place] [address] Jan, Chronic pain G89.29 [facility] [place] [address] [facility] [id number] [address] [place] [address] December, Chronic pain G89.29 [facility] [place] [address] [facility] [id number] [address] [place] [address] Nov, Long-term use of high-risk m edication Z79.899 [facility] [place] [address] [facility] [id number] [address] [place] [address] Nov, Chronic pain G89.29 [facility] [place] [address] [facility] [id number] [address] [place] [address] 21 Mar, 2018 Chronic pain G89.29 ; Pre-di abetes R73.09 ; Long-term use of high- risk medication Z79.899 ; Allergic rhinitis, unspecified seasonality, unspecified trigger J30.9 ; BMI 45.0-49.9, adult Z68.42 and Essential hypertension I10 [place] [address] [place] [id number] [address] [place] [address] Oct, Chronic pain G89.29 [place] [address] [place] [id number] [place] [address] Sep, Chronic pain G89.29 [place] [address] [place] [id number] [place] [address] Aug, Chronic pain G89.29 [place] [address] [place] [id number] [place] [address] Jul, [place] [address] [place] [id number] [place] [address] Jul, [place] [address] [place] [id number] [place] [address] Jun, Chronic pain G89.29 ; BMI 45 .0-49.9, adult Z68.42 ; Pre-diabetes R73.09 ; Essential hypertension I10 ; GERD (gastroesophageal reflux disease) K21.9 ; Yeast dermatitis B37.2 ; Dysuria R30.0 ; Acute non-recurrent maxillary sinusitis J01.00 and Acute cystitis with hematuria N30.01 [place] [address] [place] [id number] [address] [place] [address] Jun, Chronic pain G89.29 [place] [address] [place] [id number] [place] [address] Jun, Acute non-recurrent maxillar y sinusitis J01.00 and BMI 45.0-49.9, adult Z68.42 [place] [address] [place] [id number] [address] [place] [address] May, [place] [address] [place] [id number] [place] [address] [place] [address] May, Chronic pain G89.29 [facility] [place] [address] [facility] [id number] [address] [place] [address] May, [facility] [place] [address] [facility] [id number] [address] [place] [address] Apr, Chronic pain G89.29 [facility] [place] [address] [place] [id number] [place] [address] Mar, [place] [address] [place] [id number] [place] [address] Mar, Essential hypertension I10 a nd Pre-diabetes R73.09 [place] [address] [place] [id number] [place] [address] Mar, Chronic pain G89.29 ; Essent ial hypertension I10 ; Depressive disorder, not elsewhere classified F32.9 ; GERD (gastroesophageal reflux disease) K21.9 ; Pre-diabetes R73.09 ; Stasis dermatitis of both legs I87.2 and Acute non-recurrent maxillary sinusitis J01.00 [place] [address] [address] Mar, Chronic pain G89.29 [place] [address] [place] [id number] [place] [address] Mar, Achilles tendinitis of right lower extremity M76.61 and Tinea corporis B35.4 [place] [address] [place] [id number] [place] [address] Feb, Yeast dermatitis B37.2 [place] [address] [place] [id number] [place] [address] 14 Feb, 2017 Candidal intertrigo B37.2 an d Acute right ankle pain M25.571 [place] [address] [place] [id number] [place] [address] Feb, Chronic pain G89.29 [place] [address] [place] [id number] [place] [address] Jan, [place] [address] [place] [id number] [place] [address] Jan, Chronic pain G89.29 [place] [address] [place] [id number] [place] [address] December, Chronic pain G89.29 ; Essent ial hypertension I10 ; Depressive disorder, not elsewhere classified F32.9 ; GERD (gastroesophageal reflux disease) K21.9 ; Pre-diabetes R73.09 ; Screening breast examination Z12.39 ; Stasis dermatitis of both legs I87.2 and Yeast dermatitis B37.2 [place] [address] [place] [id number] [place] [address] Nov, Chronic pain G89.29 [place] [address] [place] [id number] [place] [address] Nov, Cellulitis of left lower ext remity L03.116 [place] [address] [facility] [id number] [address] [place] [address] Nov, Cellulitis of left lower ext remity L03.116 [place] [address] [place] [id number] [place] [address] Oct, Yeast dermatitis B37.2 [place] [address] [place] [id number] [place] [address] Oct, Chronic pain G89.29 [place] [address] [place] [id number] [place] [address] Sep, Chronic pain G89.29 ; Essent ial hypertension I10 ; Depressive disorder, not elsewhere classified F32.9 and GERD (gastroesophageal reflux disease) K21.9 [place] [address] [facility] [id number] [address] [place] [address] Aug, Chronic pain G89.29 [place] [address] [place] [id number] [place] [address] Aug, Cough R05 ; Rash R21 and Vinay h and nonspecific skin eruption R21 [place] [address] [place] [address] Jul, Chronic pain G89.29 [place] [address] [place] [id number] [place] [address] Jun, Chronic pain G89.29 ; Bronch itis J40 ; Essential hypertension I10 ; Depressive disorder, not elsewhere classified F32.9 ; GERD (gastroesophageal reflux disease) K21.9 and History of long-term use of multiple prescription drugs Z92.29 [place] [address] [address] Jun, Bronchitis J40 ; Chills R68. 83 and Sore throat J02.9 [place] [address] [place] [id number] [address] [place] [address] May, [place] [address] [place] [address] Apr, [facility] [address] [place] [id number] [place] [address] 19 Apr, 2016 Acute mucoid otitis media of both ears H65.113 [place] [address] [place] [id number] [place] [address] 07 Apr, 2016 Yeast dermatitis B37.2 and H ematuria R31.9 [place] [address] [place] [address] Mar, [place] [address] [place] [address] Mar, [place] [address] [address] Feb, Left anterior knee pain M25. 562 [place] [address] [place] [id number] [place] [address] Feb, Chronic pain G89.29 ; Essent ial hypertension I10 ; Depressive disorder, not elsewhere classified F32.9 ; GERD (gastroesophageal reflux disease) K21.9 and History of long-term use of multiple prescription drugs Z92.29 [place] [address] [address] Jan, [place] [address] [address] Jan, Well woman exam Z01.419 ; BM I 45.0-49.9, adult Z68.42 ; Family history of diabetes mellitus Z83.3 and Chronic pain G89.[address] [address] December, Chronic pain G89.29 ; Essent ial hypertension I10 ; Depressive disorder, not elsewhere classified F32.9 ; GERD (gastroesophageal reflux disease) K21.9 ; 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 ; History of long-term use of multiple prescription drugs Z92.29 and Obesity E66.9 [place] [address] [address] Oct, [address] [address] Oct, Well woman exam Z01.419 ; BM [...] smear Z12.4 and No natural teeth K00.[address] [address] Oct, [address] [address] Sep, Chronic pain G89.29 ; Essent ial hypertension I10 ; GERD (gastroesophageal reflux disease) K21.9 ; 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 ; Skin infection L08.9 and History of long-term use of multiple prescription drugs Z92.29 [place] [address] [address] Aug, [place] [address] [address] Jul, [place] [address] [address] Jul, [place] [address] [address] Jul, Upper respiratory infection J06.9 [place] [address] [address] Jul, Depressive disorder, not els ewhere classified F32.[address] [address] Jul, Chronic pain 338.29 [place] [address] [address] Jul, Chronic pain G89.29 [place] [address] [address] Jun, Poison josep L23.7 [place] [address] [address] Jun, Allergic contact dermatitis due to plants, except food L23.7 [place] [address] [place] [id number] [place] [address] 03 Jun, 2015 Essential hypertension I10 ; Chronic pain G89.29 ; GERD (gastroesophageal reflux disease) K21.9 and Numbness and tingling in hands R20.2 [place] [address] [place] [id number] [place] [address] May, [place] [address] [address] Apr, [facility] [place] [address] [place] [id number] [address] [place] [address] Mar, [facility] [place] [address] [place] [id number] [place] [address] Feb, Abdominal pain, left lateral 789.09 and Constipation 564.00 [place] [address] [address] Feb, Depressive disorder, not els ewhere classified 311 and No condition on [place] II V71.09 [place] [address] [address] Feb, Spider bite 989.5 and Depres homar 311 [place] [address] [address] Feb, [place] [address] [address] Feb, Chronic pain 338.29 ; Arthro zonia 716.90 and GERD (gastroesophageal reflux disease) 530.81 [place] [address] [address] Jan, Insect bites 919.4 [place] [address] [place] [id number] [place] [address] Jan, [facility] [place] [address] [address] December, Skin infection, bacterial 68 6.9 ; Conjunctivitis 372.30 and Insect bites 919.4 [place] [address] [place] [id number] [place] [address] December, Chronic pain 338.29 ; Arthro zonia 716.90 ; Skin infection, bacterial 686.9 and Conjunctivitis 372.30 [facility] [place] [address] [place] [id number] [place] [address] December, [facility] [place] [address] [place] [address] 14 Nov, 2014 [facility] [address] [id number] [address] [place] [address], [place] [address] 13 Nov, 2014 [facility] [address] [id number] [address] [place] [address], [place] [address] Oct, [facility] [address] [id number] [address] [place] [address], [place] [address] Oct, [facility] [address] [id number] [address] [place] [address], [place] [address] Sep, [facility] [address] [id number] [address] [place] [address], [place] [address] Sep, [facility] [address] [id number] [address] [place] [address], [place] [address] Aug, [facility] [address] [id number] [address] [place] [address], [place] [address] Aug, [facility] [address] [id number] [address] [place] [address], [place] [address] Aug, [facility] [address] [id number] [address] [place] [address], [place] [address] Aug, [facility] [address] [id number] [address] [place] [address], [place] [address] Jul, [facility] [address] [id number] [address] [place] [address], [place] [address] Jul, [facility] [address] [id number] [address] [place] [address], [place] [address] Jul, [facility] [address] [id number] [address] [place] [address], [place] [address] Jul, [facility] [address] [id number] [address] [place] [address], [place] [address] Jul, [facility] [address] [id number] [address] [place] [address], [place] [address] Jul, [facility] [address] [id number] [address] [place] [address], [place] [address] Jul, [facility] [address] [id number] [address] [place] [address], [place] [address] Jul, [facility] [address] [id number] [address] [place] [address], [place] [address] Jul, [facility] [address] [id number] [address] [place] [address], [place] [address] Jun, [facility] [address] [id number] [address] [place] [address], [place] [address] Jun, [facility] [address] [id number] [address] [place] [address], [place] [address] Jun, [facility] [address] [id number] [address] [place] [address], [place] [address] Jun, [facility] [address] [id number] [address] [place] [address], [place] [address] Jun, [facility] [address] [id number] [address] [place] [address], [place] [address] Jun, [facility] [address] [id number] [address] [place] [address], [place] [address] Jun, [facility] [address] [id number] [address] [place] [address], [place] [address] Jun, [facility] [address] [id number] [address] [place] [address], [place] [address] May, [facility] [address] [id number] [address] [place] [address], [place] [address] May, [facility] [address] [id number] [address] [place] [address], [place] [address] May, [facility] [address] [id number] [address] [place] [address], [place] [address] May, [facility] [address] [id number] [address] [place] [address], [place] [address] May, [facility] [address] [id number] [address] [place] [address], [place] [address] Apr, 2013 [facility] [address] [id number] [address] [place] [address], [place] [address] Apr, [facility] [address] [id number] [address] [place] [address], [place] [address] Apr, [facility] [address] [id number] [address] [place] [address], [place] [address] Apr, 2013 [facility] [address] [id number] [address] [place] [address], [place] [address] Apr, [facility] [address] [id number] [address] [place] [address], [place] [address] Apr, [facility] [address] [id number] [address] [place] [address], [place] [address] Apr, [facility] [address] [id number] [address] [place] [address], [place] [address] Apr, [facility] [address] [id number] [address] [place] [address], [place] [address] Apr, [facility] [address] [id number] [address] [place] [address], [place] [address] Apr, [facility] [address] [id number] [address] [place] [address], [place] [address] Mar, [facility] [address] [id number] [address] [place] [address], [place] [address] Mar, [facility] [address] [id number] [address] [place] [address], [place] [address] Mar, [facility] [address] [id number] [address] [place] [address], [place] [address] Mar, [facility] [address] [id number] [address] [place] [address], [place] [address] Mar, [facility] [address] [id number] [address] [place] [address], [place] [address] Mar, [facility] [address] [id number] [address] [place] [address], [place] [address] Feb, [facility] [address] [id number] [address] [place] [address], [place] [address] Feb, [facility] [address] [id number] [address] [place] [address], [place] [address] Jan, [facility] [address] [id number] [address] [place] [address], [place] [address] Jan, [facility] [address] [id number] [address] [place] [address], [place] [address] Jan, [facility] [address] [id number] [address] [place] [address], [place] [address] Jan, [facility] [address] [id number] [address] [place] [address], [place] [address] December, [facility] [address] [id number] [address] [place] [address], [place] [address] December, [facility] [address] [id number] [address] [place] [address], [place] [address] December, [facility] [address] [id number] [address] [place] [address], [place] [address] December, [facility] [address] [id number] [address] [place] [address], [place] [address] December, [facility] [address] [id number] [address] [place] [address], [place] [address] December, [facility] [address] [id number] [address] [place] [address], [place] [address] December, [facility] [address] [id number] [address] [place] [address], [place] [address] December, [facility] [address] [id number] [address] [place] [address], [place] [address] December, [facility] [address] [id number] [address] [place] [address], [place] [address] Nov, [facility] [facility] [address] [id number] [address] [place] [address], [place] [address] Nov, [facility] [address] [id number] [address] [place] [address], [place] [address] Nov, [facility] [address] [id number] [address] [place] [address], [place] [address] Nov, [facility] [address] [id number] [address] [place] [address], [place] [address] Nov, [facility] [address] [id number] [address] [place] [address], [place] [address] Nov, [facility] [address] [id number] [address] [place] [address], [place] [address] Nov, [facility] [address] [id number] [address] [place] [address], [place] [address] Nov, [facility] [address] [id number] [address] [place] [address], [place] [address] Nov, [facility] [address] [id number] [address] [place] [address], [place] [address] Nov, [facility] [address] [id number] [address] [place] [address], [place] [address] Oct, [facility] [address] [id number] [address] [place] [address], [place] [address] Oct, [facility] [address] [id number] [address] [place] [address], [place] [address] Sep, [facility] [address] [id number] [address] [place] [address], [place] [address] Sep, [facility] [address] [id number] [address] [place] [address], [place] [address] Aug, [facility] [address] [id number] [address] [place] [address], [place] [address] 17 Aug, 2013 [facility] [address] [id number] [address] [place] [address], [place] [address] Aug, [facility] [address] [id number] [address] [place] [address], [place] [address] Aug, [facility] [address] [id number] [address] [place] [address], [place] [address] Jul, [facility] [address] [id number] [address] [place] [address], [place] [address] Jul, [facility] [address] [id number] [address] [place] [address], [place] [address] Jul, [facility] [address] [id number] [address] [place] [address], [place] [address] Jul, [facility] [address] [id number] [address] [place] [address], [place] [address] Jun, [facility] [address] [id number] [address] [place] [address], [place] [address] Jun, [facility] [address] [id number] [address] [place] [address], [place] [address] May, [facility] [address] [id number] [address] [place] [address], [place] [address] May, [facility] [address] [id number] [address] [place] [address], [place] [address] May, [facility] [address] [id number] [address] [place] [address], [place] [address] May, [facility] [address] [id number] [address] [place] [address], [place] [address] May, [facility] [address] [id number] [address] [place] [address], [place] [address] May, [facility] [address] [id number] [address] [place] [address], [place] [address] 30 Apr, 2013 [facility] [address] [id number] [address] [place] [address], [place] [address] 23 Apr, 2013 [facility] [address] [id number] [address] [place] [address], [place] [address] Apr, [facility] [address] [id number] [address] [place] [address], [place] [address] Feb, [facility] [address] [id number] [address] [place] [address], [place] [address] Jan, [facility] [address] [id number] [address] [place] [address], [place] [address] 18 Jan, 2013 [facility] [address] [id number] [address] [place] [address], [place] [address] 17 Jan, 2013 [facility] [address] [id number] [address] [place] [address], [place] [address] Jan, [facility] [address] [id number] [address] [place] [address], [place] [address] December, [facility] [address] [id number] [address] [place] [address], [place] [address] December, [facility] [address] [id number] [address] [place] [address], [place] [address] 24 Nov, 2012 [facility] [address] [id number] [address] [place] [address], [place] [address] Nov, [facility] [address] [id number] [address] [place] [address], [place] [address] Nov, [facility] [address] [id number] [address] [place] [address], [place] [address] Nov, [facility] [address] [id number] [address] [place] [address], [place] [address] Nov, [facility] [address] [id number] [address] [place] [address], [place] [address] Nov, [facility] [address] [id number] [address] [place] [address], [place] [address] 03 Nov, 2012 [facility] [address] [id number] [address] [place] [address], [place] [address] 27 Oct, 2012 [facility] [address] [id number] [address] [place] [address], [place] [address] 18 Oct, 2012 [facility] [address] [id number] [address] [place] [address], [place] [address] 14 Oct, 2012 [facility] [address] [id number] [address] [place] [address], [place] [address] 13 Oct, 2012 [facility] [address] [id number] [address] [place] [address], [place] [address] 12 Oct, 2012 [facility] [address] [id number] [address] [place] [address], [place] [address] 11 Oct, 2012 [facility] [address] [id number] [address] [place] [address], [place] [address] 08 Oct, 2012 [facility] [address] [id number] [address] [place] [address], [place] [address] 20 Sep, 2012 [facility] [address] [id number] [address] [place] [address], [place] [address] Sep, [facility] [address] [id number] [address] [place] [address], [place] [address] Aug, [facility] [address] [id number] [address] [place] [address], [place] [address] Aug, [facility] [address] [id number] [address] [place] [address], [place] [address] Jul, [facility] [address] [id number] [address] [place] [address], [place] [address] Jul, [facility] [address] [id number] [address] [place] [address], [place] [address] Jul, [facility] [address] [id number] [address] [place] [address], [place] [address] Jul, [facility] [address] [id number] [address] [place] [address] Jul, [facility] [place] [address] [facility] [id number] [address] [place] [address] Jul, [facility] [place] [address] [facility] [id number] [address] [place] [address] Jul, [facility] [place] [address] [facility] [id number] [address] [place] [address] Jul, [facility] [place] [address] [facility] [id number] [address] [place] [address] Jun, [facility] [place] [address] [facility] [id number] [address] [place] [address] Jun, IMMUNIZATIONS No Known Immunizations SOCIAL HISTORY Never Assessed REASON FOR VISIT PLAN OF CARE VITAL SIGNS Height 62 in 2014-02-20 Weight 246.01 lbs 2014-02-20 Temperature 98 degrees Fahrenheit 2014-02-20 Heart Rate 66 bpm 2014-02-20 Respiratory Rate 16 2014-02-20 Blood pressure systolic 112 mmHg 2014-02-20 Blood pressure diastolic 72 mmHg 2014-02-20 MEDICATIONS Unknown Medications RESULTS No Results PROCEDURES [...] -- total 11/2012 Hospitalization History ER- in [place] due to left knee 8
--- OUTSIDE RECORDS SUMMARY | 2020-02-11 03:15 | XMS REPORT ---
Author Author Madeline Magdaleno Doctor Organization [facility] Address Unknown Phone Unavailable Care Team Providers Care Operations And Maintenance Supervisor Name Role Phone Migration, Doctor Unavailable Unavailable PROBLEMS Type Condition ICD9-CM Code VNP02-NL Code Onset Dates Condition S tatus SNOMED Code Problem GERD (gastroesophageal reflux disease) K21.9 Active 318638553 Problem Numbness and tingling in hands R20.2 Active 743920458 Problem History of abnormal cervical Pap smear Z87.898 Active 256574870 Problem Chronic recurrent major depressive disorder F33.9 Active 3916668 Problem Chronic pain G89.29 Active 2633227 1 Problem Morbid obesity due to excess calories E66.01 Active 831621200 Problem Pre-diabetes R73.09 Active 2442671 02 Problem Stasis dermatitis of both legs I87.2 Active 70043554 Problem BMI 45.0-49.9, adult Z68.42 Active 851442130 Problem Essential hypertension I10 Active 54333380 Problem Primary insomnia F51.01 Active 397 2004 ALLERGIES No Information ENCOUNTERS Encounter Location Date Diagnosis [facility] [address] [facility] [id number] [address] [place] [phone] Apr, [facility] [address] [facility] [id number] [address] [place] [phone] Mar, Chronic pain G89.29 and BMI 45.0-49.9, adult Z68.42 [facility] [address] [facility] [id number] [address] [place] [id number] 08 Mar, 2019 Morbid obesity E66.01 ; 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 david recurrent major depressive disorder F33.9 ; Morbid obesity due to excess calories E66.01 and High risk medication use Z79.899 [facility] [address] [facility] [id number] [address] [place] [address] Mar, Chronic pain G89.29 and BMI 45.0-49.9, adult Z68.42 [facility] [address] [facility] [id number] [address] [place] [phone] Feb, [facility] [address] [facility] [id number] [address] [place] [phone] 08 Feb, 2019 Chronic pain G89.29 and BMI 45.0-49.9, adult Z68.42 [facility] [address] [facility] [id number] [address] [place] [address] Jan, [facility] [address] [facility] [id number] [address] [place] [address] Jan, Chronic pain G89.29 and BMI 45.0-49.9, adult Z68.42 [place] [address] [facility] [id number] [address] [place] [address] Jan, [place] [address] [facility] [id number] [address] [place] [address] December, Chronic pain G89.29 and BMI 45.0-49.9, adult Z68.42 [place] [address] [facility] [id number] [address] [place] [address] 24 Nov, 2018 Morbid obesity E66.01 and Ce llulitis of leg, left L03.116 [facility] [address] [facility] [id number] [address] [place] [phone] 15 Nov, 2018 Cellulitis of left lower ext remity L03.116 and Morbid obesity E66.01 [facility] [address] [facility] [id number] [address] [place] [phone] Nov, [facility] [address] [facility] [id number] [address] [place] [address] Nov, Morbid obesity E66.01 and Ce llulitis of left lower extremity L03.116 [facility] [address] [facility] [id number] [address] [place] [address] Nov, Chronic pain G89.29 and BMI 45.0-49.9, adult Z68.42 [place] [address] [place] [id number] [address] [place] [id number] 18 Oct, 2018 BMI 45.0-49.9, adult Z68.42 and Chronic pain G89.29 [place] [address] [facility] [id number] [address] [place] [phone] 14 Sep, 2018 BMI 45.0-49.9, adult Z68.42 and Chronic pain G89.29 [place] [address] [place] [id number] [address] [place] [address] Sep, BMI 45.0-49.9, adult Z68.42 and Essential hypertension I10 [place] [address] [place] [id number] [place] [address] Aug, BMI 45.0-49.9, adult Z68.42 ; Chronic pain G89.29 ; Essential hypertension I10 and Primary insomnia F51.01 [place] [address] [place] [id number] [address] [place] [address] Aug, Chronic pain G89.29 [place] [address] [place] [id number] [address] [place] [address] Jul, Chronic pain G89.29 [place] [address] [place] [id number] [address] [place] [address] Jun, Chronic pain G89.29 [place] [address] [place] [id number] [address] [place] [address] May, Chronic pain G89.29 [place] [address] [place] [id number] [address] [place] [address] May, BMI 40.0-44.9, adult Z68.41 ; Other chronic pain G89.29 ; Pain in right hip M25.551 and Acute pain of left knee M25.562 [place] [address] [facility] [id number] [address] [place] [address] May, Chronic pain G89.29 [place] [address] [place] [id number] [address] [place] [address] Apr, Chronic pain G89.29 [facility] [address] [facility] [id number] [address] [place] [phone] Mar, Poison josep L23.7 [facility] [address] [facility] [id number] [address] [place] [address] Mar, Chronic pain G89.29 [facility] [address] [facility] [id number] [address] [place] [address] Feb, Chronic pain G89.29 [facility] [address] [facility] [id number] [address] [place] [address] Feb, Poison josep L23.7 [facility] [address] [facility] [id number] [address] [place] [address] Jan, Chronic pain G89.29 [place] [address] [facility] [id number] [address] [place] [address] December, Chronic pain G89.29 [facility] [address] [facility] [id number] [address] [place] [phone] Nov, Long-term use of high-risk m edication Z79.899 [place] [id number] [facility] [id number] [address] [place] [phone] Nov, Chronic pain G89.29 [place] [address] [facility] [id number] [address] [place] [address] Oct, Chronic pain G89.29 ; Pre-di abetes R73.09 ; Long-term use of high- risk medication Z79.899 ; Allergic rhinitis, unspecified seasonality, unspecified trigger J30.9 ; BMI 45.0-49.9, adult Z68.42 and Essential hypertension I10 [facility] [address] [facility] [id number] [address] [place] [address] Oct, Chronic pain G89.29 [place] [address] [facility] [id number] [address] [place] [phone] Sep, Chronic pain G89.29 [facility] [address] [facility] [id number] [address] [place] [phone] Aug, Chronic pain G89.29 [facility] [address] [place] [id number] [address] [place] [phone] Jul, [facility] [address] [place] [id number] [place] [phone] Jul, [facility] [address] [place] [id number] [place] [address] Jun, Chronic pain G89.29 ; BMI 45 .0-49.9, adult Z68.42 ; Pre-diabetes R73.09 ; Essential hypertension I10 ; GERD (gastroesophageal reflux disease) K21.9 ; Yeast dermatitis B37.2 ; Dysuria R30.0 ; Acute non-recurrent maxillary sinusitis J01.00 and Acute cystitis with hematuria N30.01 [place] [address] [place] [id number] [address] [place] [address] Jun, Chronic pain G89.29 [facility] [address] [place] [id number] [address] [place] [phone] Jun, Acute non-recurrent maxillar y sinusitis J01.00 and BMI 45.0-49.9, adult Z68.42 [place] [address] [place] [id number] [address] [place] [phone] May, [place] [address] [place] [id number] [place] [address] May, Chronic pain G89.29 [facility] [address] [place] [id number] [address] [place] [phone] May, [place] [address] [address] Apr, Chronic pain G89.29 [facility] [address] [place] [id number] [address] [place] [address] Mar, [place] [address] [place] [id number] [address] [place] [address] Mar, Essential hypertension I10 a nd Pre-diabetes R73.09 [place] [address] [facility] [id number] [address] [place] [phone] 15 Mar, 2017 Chronic pain G89.29 ; Essent ial hypertension I10 ; Depressive disorder, not elsewhere classified F32.9 ; GERD (gastroesophageal reflux disease) K21.9 ; Pre-diabetes R73.09 ; Stasis dermatitis of both legs I87.2 and Acute non-recurrent maxillary sinusitis J01.00 [place] [address] [facility] [id number] [address] [place] [phone] 11 Mar, 2017 Chronic pain G89.29 [place] [address] [place] [id number] [address] [place] [phone] 07 Mar, 2017 Achilles tendinitis of right lower extremity M76.61 and Tinea corporis B35.4 [place] [address] [place] [id number] [address] [place] [phone] 17 Feb, 2017 Yeast dermatitis B37.2 [place] [address] [place] [id number] [address] [place] [phone] 14 Feb, 2017 Candidal intertrigo B37.2 an d Acute right ankle pain M25.571 [place] [address] [place] [id number] [address] [place] [address] Feb, Chronic pain G89.29 [place] [address] [place] [id number] [address] [place] [phone] Jan, [place] [address] [place] [id number] [address] [place] [address] Jan, Chronic pain G89.29 [place] [address] [place] [id number] [address] [place] [address] December, Chronic pain G89.29 ; Essent ial hypertension I10 ; Depressive disorder, not elsewhere classified F32.9 ; GERD (gastroesophageal reflux disease) K21.9 ; Pre-diabetes R73.09 ; Screening breast examination Z12.39 ; Stasis dermatitis of both legs I87.2 and Yeast dermatitis B37.2 [place] [address] [address] Nov, Chronic pain G89.29 [place] [address] [place] [id number] [address] [place] [address] Nov, Cellulitis of left lower ext remity L03.116 [place] [address] [address] Nov, Cellulitis of left lower ext remity L03.116 [place] [address] [address] Oct, Yeast dermatitis B37.2 [place] [address] [address] Oct, Chronic pain G89.29 [place] [address] [address] Sep, Chronic pain G89.29 ; Essent ial hypertension I10 ; Depressive disorder, not elsewhere classified F32.9 and GERD (gastroesophageal reflux disease) K21.9 [place] [address] [address] Aug, Chronic pain G89.29 [place] [address] [address] Aug, Cough R05 ; Rash R21 and Vinay h and nonspecific skin eruption R21 [place] [id number] [address] [place] [address] Jul, Chronic pain G89.[address] [address] Jun, Chronic pain G89.29 ; Bronch itis J40 ; Essential hypertension I10 ; Depressive disorder, not elsewhere classified F32.9 ; GERD (gastroesophageal reflux disease) K21.9 and History of long-term use of multiple prescription drugs Z92.29 [place] [address] [address] Jun, Bronchitis J40 ; Chills R68. 83 and Sore throat J02.9 [place] [address] [address] May, [place] [address] [address] Apr, [facility] [address] [address] Apr, Acute mucoid otitis media of both ears H65.113 [place] [address] [address] 07 Apr, 2016 Yeast dermatitis B37.2 and H ematuria R31.9 [place] [address] [address] Mar, [place] [address] [address] Mar, [place] [address] [address] Feb, Left anterior knee pain M25. [address] [address] Feb, Chronic pain G89.29 ; Essent ial hypertension I10 ; Depressive disorder, not elsewhere classified F32.9 ; GERD (gastroesophageal reflux disease) K21.9 and History of long-term use of multiple prescription drugs Z92.[address] [address] Jan, [address] [address] Jan, Well woman exam Z01.419 ; BM I 45.0-49.9, adult Z68.42 ; Family history of diabetes mellitus Z83.3 and Chronic pain G89.29 [place] [address] [address] December, Chronic pain G89.29 ; Essent ial hypertension I10 ; Depressive disorder, not elsewhere classified F32.9 ; GERD (gastroesophageal reflux disease) K21.9 ; 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 ; History of long-term use of multiple prescription drugs Z92.29 and Obesity E66.9 [place] [address] [address] Oct, [place] [address] [address] Oct, Well woman exam Z01.419 ; BM [...] smear Z12.4 and No natural teeth K00.0 [place] [address] [address] Oct, [address] [address] Sep, Chronic pain G89.29 ; Essent ial hypertension I10 ; GERD (gastroesophageal reflux disease) K21.9 ; 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 ; Skin infection L08.9 and History of long-term use of multiple prescription drugs Z92.29 [place] [address] [address] Aug, [address] [address] Jul, [address] [address] Jul, [facility] [address] [facility] [id number] [address] [place] [address] Jul, Upper respiratory infection J06.9 [facility] [address] [facility] [id number] [address] [place] [address] Jul, Depressive disorder, not els ewhere classified F32.9 [facility] [address] [facility] [id number] [address] [place] [address] Jul, Chronic pain 338.29 [place] [address] [facility] [id number] [address] [place] [address] Jul, Chronic pain G89.29 [place] [address] [facility] [id number] [address] [place] [address] Jun, Poison josep L23.7 [place] [address] [facility] [id number] [address] [place] [address] Jun, Allergic contact dermatitis due to plants, except food L23.7 [place] [address]361 [address] [facility] [id number] [address] [place] [address] Jun, Essential hypertension I10 ; Chronic pain G89.29 ; GERD (gastroesophageal reflux disease) K21.9 and Numbness and tingling in hands R20.2 [place] 512361 [address] [facility] [id number] [address] [place] [phone] May, [facility] [address] [facility] [id number] [address] [place] [address] Apr, [place] [address] [facility] [id number] [address] [place] [address] Mar, [place] [address] [place] [id number] [address] [place] [address] Feb, Abdominal pain, left lateral 789.09 and Constipation 564.00 [facility] [address] [facility] [id number] [address] [place] [address] Feb, Depressive disorder, not els ewhere classified 311 and No condition on [place] II V71.09 [facility] [address] [facility] [id number] [address] [place] [address] Feb, Spider bite 989.5 and Depres homar 311 [facility] [address] [facility] [id number] [address] [place] [address] Feb, [facility] [address] [facility] [id number] [address] [place] [address] Feb, Chronic pain 338.29 ; Arthro zonia 716.90 and GERD (gastroesophageal reflux disease) 530.81 [facility] [address] [facility] [id number] [address] [place] [address] Jan, Insect bites 919.4 [facility] [address] [facility] [id number] [address] [place] [address] Jan, [facility] [address] [facility] [id number] [address] [place] [address] December, Skin infection, bacterial 68 6.9 ; Conjunctivitis 372.30 and Insect bites 919.4 [facility] [address] [facility] [id number] [address] [place] [address] December, Chronic pain 338.29 ; Arthro zonia 716.90 ; Skin infection, bacterial 686.9 and Conjunctivitis 372.30 [facility] [address] [facility] [id number] [address] [place] [address] December, [facility] [address] [facility] [id number] [address] [place] [address] Nov, [facility] [address] [facility] [id number] [address] [place] [address] Nov, [facility] [address] [facility] [id number] [address] [place] [phone] Oct, [facility] [address] [facility] [id number] [address] [place] [phone] Oct, [facility] [address] [id number] [address] [place] [address] [place] [address] Sep, [facility] [address] [id number] [address] [place] [address], [place] [address] Sep, [facility] [address] [id number] [address] [place] [address], [place] [address] Aug, [facility] [address] [id number] [address] [place] [address], [place] [address] Aug, [facility] [address] [id number] [address] [place] [address], [place] [address] Aug, [facility] [address] [id number] [address] [place] [address], [place] [address] Aug, [facility] [address] [id number] [address] [place] [address], [place] [address] Jul, [facility] [address] [id number] [address] [place] [address], [place] [address] Jul, [facility] [address] [id number] [address] [place] [address], [place] [address] Jul, [facility] [address] [id number] [address] [place] [address], [place] [address] Jul, [facility] [address] [id number] [address] [place] [address], [place] [address] Jul, [facility] [address] [id number] [address] [place] [address], [place] [address] Jul, [facility] [address] [id number] [address] [place] [address], [place] [address] Jul, [facility] [address] [id number] [address] [place] [address], [place] [address] Jul, [facility] [address] [id number] [address] [place] [address], [place] [address] Jul, [facility] [address] [id number] [address] [place] [address], [place] [address] Jun, [facility] [address] [id number] [address] [place] [address], [place] [address] Jun, [facility] [address] [id number] [address] [place] [address], [place] [address] Jun, [facility] [address] [id number] [address] [place] [address], [place] [address] Jun, [facility] [address] [id number] [address] [place] [address], [place] [address] Jun, [facility] [address] [id number] [address] [place] [address], [place] [address] Jun, [facility] [address] [id number] [address] [place] [address], [place] [address] Jun, [facility] [address] [id number] [address] [place] [address], [place] [address] Jun, [facility] [address] [id number] [address] [place] [address], [place] [address] May, [facility] [address] [id number] [address] [place] [address], [place] [address] May, [facility] [address] [id number] [address] [place] [address], [place] [address] May, [facility] [address] [id number] [address] [place] [address], [place] [address] May, [facility] [address] [id number] [address] [place] [address], [place] [address] May, [facility] [address] [id number] [address] [place] [address], [place] [address] Apr, [facility] [address] [id number] [address] [place] [address], [place] [id number] Apr, [facility] [address] [id number] [address] [place] [address], [place] [address] Apr, [facility] [address] [id number] [address] [place] [address], [place] [address] Apr, [facility] [address] [id number] [address] [place] [address], [place] [id number] 18 Apr, 2013 [facility] [address] [id number] [address] [place] [address], [place] [id number] Apr, [facility] [address] [id number] [address] [place] [address], [place] [address] Apr, [facility] [address] [id number] [address] [place] [address], [place] [address] Apr, [facility] [address] [id number] [address] [place] [address], [place] [address] Apr, [facility] [address] [id number] [address] [place] [address], [place] [address] Apr, [facility] [address] [id number] [address] [place] [address], [place] [address] Mar, [facility] [address] [id number] [address] [place] [address], [place] [address] Mar, [facility] [address] [id number] [address] [place] [address], [place] [address] Mar, [facility] [address] [id number] [address] [place] [address], [place] [address] Mar, [facility] [address] [id number] [address] [place] [address], [place] [address] Mar, [facility] [address] [id number] [address] [place] [address], [place] [address] Mar, [facility] [address] [id number] [address] [place] [address], [place] [address] Feb, [facility] [address] [id number] [address] [place] [address], [place] [address] Feb, [facility] [address] [id number] [address] [place] [address], [place] [address] Jan, [facility] [address] [id number] [address] [place] [address], [place] [address] Jan, [facility] [address] [id number] [address] [place] [address], [place] [address] Jan, [facility] [address] [id number] [address] [place] [address], [place] [address] Jan, [facility] [address] [id number] [address] [place] [address], [place] [address] December, [facility] [address] [id number] [address] [place] [address], [place] [id number] December, [facility] [address] [address] [id number] [address] [place] [address], [place] [address] December, [facility] [address] [id number] [address] [place] [address], [place] [address] December, [facility] [address] [id number] [address] [place] [address], [place] [address] December, [facility] [address] [id number] [address] [place] [address], [place] [address] December, [facility] [place] [facility] [address] [id number] [address] [place] [address], [place] [address] December, [facility] [address] [id number] [address] [place] [address], [place] [address] December, [facility] [address] [id number] [address] [place] [address], [place] [address] December, [facility] [address] [id number] [address] [place] [address], [place] [address] Nov, [facility] [address] [id number] [address] [place] [address], [place] [address] Nov, [facility] [address] [id number] [address] [place] [address], [place] [address] Nov, [facility] [address] [id number] [address] [place] [address], [place] [address] Nov, [facility] [address] [id number] [address] [place] [address], [place] [address] Nov, [facility] [address] [id number] [address] [place] [address], [place] [address] Nov, [facility] [address] [id number] [address] [place] [address], [place] [address] Nov, [facility] [address] [id number] [address] [place] [address], [place] [address] Nov, [facility] [address] [id number] [address] [place] [address], [place] [address] Nov, [facility] [address] [id number] [address] [place] [address], [place] [address] Nov, [facility] [address] [id number] [address] [place] [address], [place] [address] Oct, [facility] [address] [id number] [address] [place] [address], [place] [address] Oct, [facility] [address] [id number] [address] [place] [address], [place] [address] Sep, [facility] [address] [id number] [address] [place] [address], [place] [address] Sep, [facility] [address] [id number] [address] [place] [address], [place] [address] Aug, [facility] [address] [id number] [address] [place] [address], [place] [address] Aug, [facility] [address] [id number] [address] [place] [address], [place] [address] Aug, [facility] [address] [id number] [address] [place] [address], [place] [address] Aug, [facility] [address] [id number] [address] [place] [address], [place] [address] Jul, [facility] [address] [id number] [address] [place] [address], [place] [address] Jul, [facility] [address] [id number] [address] [place] [address], [place] [address] Jul, [facility] [address] [id number] [address] [place] [address], [place] [address] Jul, [facility] [address] [id number] [address] [place] [address], [place] [address] Jun, [facility] [address] [id number] [address] [place] [address], [place] [address] Jun, [facility] [address] [id number] [address] [place] [address], [place] [address] May, [facility] [address] [id number] [address] [place] [address], [place] [address] May, [facility] [address] [id number] [address] [place] [address], [place] [address] May, [facility] [address] [id number] [address] [place] [address], [place] [address] May, [facility] [address] [id number] [address] [place] [address], [place] [address] May, [facility] [address] [id number] [address] [place] [address], [place] [address] May, [facility] [address] [id number] [address] [place] [address], [place] [address] 30 Apr, 2013 [facility] [address] [id number] [address] [place] [address], [place] [address] 23 Apr, 2013 [facility] [address] [id number] [address] [place] [address], [place] [address] Apr, [facility] [address] [id number] [address] [place] [address], [place] [address] Feb, [facility] [address] [id number] [address] [place] [address], [place] [address] Jan, [facility] [address] [id number] [address] [place] [address], [place] [address] 18 Jan, 2013 [facility] [address] [id number] [address] [place] [address], [place] [address] 17 Jan, 2013 [facility] [address] [id number] [address] [place] [address], [place] [address] 14 Jan, 2013 [facility] [address] [id number] [address] [place] [address], [place] [address] December, [facility] [address] [id number] [address] [place] [address], [place] [address] December, [facility] [address] [id number] [address] [place] [address], [place] [address] 24 Nov, 2012 [facility] [address] [id number] [address] [place] [address], [place] [address] Nov, [facility] [address] [id number] [address] [place] [address], [place] [address] Nov, [facility] [place] [facility] [address] [id number] [address] [place] [address], [place] [address] Nov, [facility] [address] [id number] [address] [place] [address], [place] [address] 08 Nov, 2012 [facility] [address] [id number] [address] [place] [address], [place] [address] Nov, [facility] [place] [facility] [address] [id number] [address] [place] [address], [place] [address] 03 Nov, 2012 [facility] [address] [id number] [address] [place] [address], [place] [address] 27 Oct, 2012 [facility] [address] [id number] [address] [place] [address], [place] [address] 18 Oct, 2012 [facility] [address] [id number] [address] [place] [address], [place] [address] 14 Oct, 2012 [facility] [address] [id number] [address] [place] [address], [place] [address] 13 Oct, 2012 [facility] [address] [id number] [address] [place] [address], [place] [address] 12 Oct, 2012 [facility] [address] [id number] [address] [place] [address], [place] [address] Oct, [facility] [address] [id number] [address] [place] [address], [place] [address] 08 Oct, 2012 [facility] [address] [id number] [address] [place] [address], [place] [address] Sep, [facility] [address] [id number] [address] [place] [address], [place] [address] Sep, [facility] [address] [id number] [address] [place] [address], [place] [address] Aug, [facility] [address] [id number] [address] [place] [address], [place] [address] Aug, [facility] [address] [id number] [address] [place] [address], [place] [address] Jul, [facility] [address] [id number] [address] [place] [address], [place] [address] Jul, [facility] [address] [id number] [address] [place] [address], [place] [address] Jul, [facility] [address] [id number] [address] [place] [address], [place] [address] Jul, [facility] [address] [id number] [address] [place] [address], [place] [address] Jul, [facility] [address] [id number] [address] [place] [address], [place] [address] Jul, [facility] [address] [id number] [address] [place] [address], [place] [address] Jul, [facility] [address] [id number] [address] [place] [address], [place] [address] Jul, [facility] [address] [id number] [address] [address] Jun, [facility] [address] [facility] [id number] [address] [address] Jun, IMMUNIZATIONS No Known Immunizations SOCIAL HISTORY Never Assessed REASON FOR VISIT PLAN OF CARE VITAL SIGNS Blood pressure systolic 138 mmHg 2014-06-12 Blood pressure diastolic 90 mmHg 2014-06-12 MEDICATIONS Unknown Medications RESULTS No Results PROCEDURES [...] -- total 11/2012 Hospitalization History ER- in [place] due to left knee 8
--- OUTSIDE RECORDS SUMMARY | 2020-02-11 03:15 | XMS REPORT ---
Author Author АНДРЕЙ Madelineshawn LEONG Organization [facility] Address [address] [place] [address] Care Team Providers Care Cashier Greeter Name Role Phone KWESIKennedy DANG Unavailable PROBLEMS Type Condition ICD9-CM Code YZH24-YF Code Onset Dates Condition S tatus SNOMED Code Problem Numbness and tingling in hands R20.2 Active 672138375 Problem History of abnormal cervical Pap smear Z87.898 Active 548099410 Problem Stasis dermatitis of both legs I87.2 Active 46598106 Problem Pre-diabetes R73.09 Active 3817848 02 Problem Morbid obesity due to excess calories E66.01 Active 792091351 Problem GERD (gastroesophageal reflux disease) K21.9 Active 343584087 Problem Mood disorder F39 Active 917962 05 Problem Chronic pain G89.29 Active 7592605 1 Problem BMI 45.0-49.9, adult Z68.42 Active 986184997 Problem Essential hypertension I10 Active 24674296 Problem Primary insomnia F51.01 Active 397 2004 Problem Chronic recurrent major depressive disorder F33.9 Active 8104025 ALLERGIES No Information ENCOUNTERS Encounter Location Date Diagnosis [place] [id number] [facility] [id number] [address] [place] [address] May, [facility] [address] [place] [id number] [address] [place] [address] 25 Apr, 2019 Chronic pain G89.29 and BMI 45.0-49.9, adult Z68.42 [facility] [address] [place] [id number] [address] [place] [address] 13 Apr, 2019 Mood disorder F39 [facility] [address] [facility] [id number] [address] [place] [address] Mar, Chronic pain G89.29 and BMI 45.0-49.9, adult Z68.42 [facility] [address] [facility] [id number] [address] [place] [address] Mar, Morbid obesity E66.01 ; Site Leader david recurrent major depressive disorder F33.9 ; Morbid obesity due to excess calories E66.01 and High risk medication use Z79.899 [facility] [address] [facility] [id number] [address] [place] [address] Mar, Chronic pain G89.29 and BMI 45.0-49.9, adult Z68.42 [place] [address] [facility] [id number] [address] [place] [address] Feb, [place] [address] [place] [id number] [place] [address] Feb, Chronic pain G89.29 and BMI 45.0-49.9, adult Z68.42 [place] [address] [place] [id number] [address] [place] [address] Jan, [facility] [address] [place] [id number] [address] [place] [address] Jan, Chronic pain G89.29 and BMI 45.0-49.9, adult Z68.42 [facility] [address] [facility] [id number] [address] [place] [address] Jan, [place] [address] [facility] [id number] [address] [place] [address] December, Chronic pain G89.29 and BMI 45.0-49.9, adult Z68.42 [facility] [address] [facility] [id number] [address] [place] [address] Nov, Morbid obesity E66.01 and Ce llulitis of leg, left L03.116 [facility] [address] [facility] [id number] [address] [place] [address] 15 Nov, 2018 Cellulitis of left lower ext remity L03.116 and Morbid obesity E66.01 [facility] [address] [address] 13 Nov, 2018 [place] [address] [address] 12 Nov, 2018 Morbid obesity E66.01 and Ce llulitis of left lower extremity L03.116 [place] [address] [address] 11 Nov, 2018 Chronic pain G89.29 and BMI 45.0-49.9, adult Z68.42 [place] [address] [address] Oct, BMI 45.0-49.9, adult Z68.42 and Chronic pain G89.29 [place] [address] [address] 14 Sep, 2018 BMI 45.0-49.9, adult Z68.42 and Chronic pain G89.29 [place] [address] [address] 05 Sep, 2018 BMI 45.0-49.9, adult Z68.42 and Essential hypertension I10 [place] [address] [address] Aug, BMI 45.0-49.9, adult Z68.42 ; Chronic pain G89.29 ; Essential hypertension I10 and Primary insomnia F51.01 [place] [address] [address] Aug, Chronic pain G89.29 [place] [address] [address] Jul, Chronic pain G89.29 [place] [address] [address] Jun, Chronic pain G89.29 [place] [address] [address] May, Chronic pain G89.29 [place] [address] [id number] [address] [place] [address] May, BMI 40.0-44.9, adult Z68.41 ; Other chronic pain G89.29 ; Pain in right hip M25.551 and Acute pain of left knee M25.562 [facility] [address] [id number] [address] [place] [address] May, Chronic pain G89.29 [facility] [address] [id number] [address] [place] [address] Apr, Chronic pain G89.29 [facility] [address] [facility] [id number] [address] [place] [address] Mar, Poison josep L23.7 [facility] [address] [facility] [id number] [address] [place] [address] Mar, Chronic pain G89.29 [facility] [address] [facility] [id number] [address] [place] [address] Feb, Chronic pain G89.29 [facility] [address] [facility] [id number] [address] [place] [address] Feb, Poison josep L23.7 [facility] [address] [facility] [id number] [address] [place] [address] Jan, Chronic pain G89.29 [facility] [address] [facility] [id number] [address] [place] [address] December, Chronic pain G89.29 [facility] [address] [facility] [id number] [address] [place] [address] Nov, Long-term use of high-risk m edication Z79.899 [facility] [address] [facility] [id number] [address] [place] [address] Nov, Chronic pain G89.29 [facility] [address] [facility] [id number] [address] [place] [address] 21 Mar, 2018 Chronic pain G89.29 ; Pre-di abetes R73.09 ; Long-term use of high- risk medication Z79.899 ; Allergic rhinitis, unspecified seasonality, unspecified trigger J30.9 ; BMI 45.0-49.9, adult Z68.42 and Essential hypertension I10 [place] [address] [place] [id number] [address] [place] [address] Oct, Chronic pain G89.29 [place] [address] [place] [id number] [address] [place] [address] Sep, Chronic pain G89.29 [place] [address] [place] [id number] [place] [address] Aug, Chronic pain G89.29 [place] [address] [place] [id number] [place] [address] Jul, [place] [address] [place] [id number] [place] [address] Jul, [place] [address] [place] [id number] [address] [place] [address] Jun, Chronic pain G89.29 ; BMI 45 .0-49.9, adult Z68.42 ; Pre-diabetes R73.09 ; Essential hypertension I10 ; GERD (gastroesophageal reflux disease) K21.9 ; Yeast dermatitis B37.2 ; Dysuria R30.0 ; Acute non-recurrent maxillary sinusitis J01.00 and Acute cystitis with hematuria N30.01 [place] [address] [place] [id number] [address] [place] [address] Jun, Chronic pain G89.29 [place] [address] [place] [id number] [address] [place] [address] Jun, Acute non-recurrent maxillar y sinusitis J01.00 and BMI 45.0-49.9, adult Z68.42 [place] [address] [place] [id number] [address] [place] [address] May, [place] [address] [place] [id number] [place] [address] [place] [address] May, Chronic pain G89.29 [facility] [address] [facility] [id number] [address] [place] [address] May, [facility] [address] [facility] [id number] [address] [place] [address] Apr, Chronic pain G89.29 [facility] [address] [place] [id number] [address] [place] [address] Mar, [place] [address] [place] [id number] [address] [place] [address] Mar, Essential hypertension I10 a nd Pre-diabetes R73.09 [place] [address] [place] [id number] [place] [address] Mar, Chronic pain G89.29 ; Essent ial hypertension I10 ; Depressive disorder, not elsewhere classified F32.9 ; GERD (gastroesophageal reflux disease) K21.9 ; Pre-diabetes R73.09 ; Stasis dermatitis of both legs I87.2 and Acute non-recurrent maxillary sinusitis J01.00 [place] [address] [address] Mar, Chronic pain G89.29 [place] [address] [place] [id number] [place] [address] Mar, Achilles tendinitis of right lower extremity M76.61 and Tinea corporis B35.4 [place] [address] [place] [id number] [place] [address] Feb, Yeast dermatitis B37.2 [place] [address] [place] [id number] [place] [address] 14 Feb, 2017 Candidal intertrigo B37.2 an d Acute right ankle pain M25.571 [place] [address] [place] [id number] [address] [place] [address] Feb, Chronic pain G89.29 [place] [address] [place] [id number] [address] [place] [address] Jan, [place] [address] [place] [id number] [address] [place] [address] Jan, Chronic pain G89.29 [place] [address] [place] [id number] [address] [place] [address] December, Chronic pain G89.29 ; Essent ial hypertension I10 ; Depressive disorder, not elsewhere classified F32.9 ; GERD (gastroesophageal reflux disease) K21.9 ; Pre-diabetes R73.09 ; Screening breast examination Z12.39 ; Stasis dermatitis of both legs I87.2 and Yeast dermatitis B37.2 [place] [address] [place] [id number] [place] [address] Nov, Chronic pain G89.29 [place] [address] [place] [id number] [address] [place] [address] Nov, Cellulitis of left lower ext remity L03.116 [place] [address] [facility] [id number] [address] [place] [address] Nov, Cellulitis of left lower ext remity L03.116 [place] [address] [place] [id number] [address] [place] [address] Oct, Yeast dermatitis B37.2 [place] [address] [place] [id number] [address] [place] [address] Oct, Chronic pain G89.29 [place] [address] [place] [id number] [address] [place] [address] Sep, Chronic pain G89.29 ; Essent ial hypertension I10 ; Depressive disorder, not elsewhere classified F32.9 and GERD (gastroesophageal reflux disease) K21.9 [place] [address] [facility] [id number] [address] [place] [address] Aug, Chronic pain G89.29 [place] [address] [place] [id number] [address] [place] [address] Aug, Cough R05 ; Rash R21 and Vinay h and nonspecific skin eruption R21 [place] [id number] [place] [address] Jul, Chronic pain G89.29 [place] [address] [place] [id number] [place] [address] Jun, Chronic pain G89.29 ; Bronch itis J40 ; Essential hypertension I10 ; Depressive disorder, not elsewhere classified F32.9 ; GERD (gastroesophageal reflux disease) K21.9 and History of long-term use of multiple prescription drugs Z92.29 [place] [address] [address] Jun, Bronchitis J40 ; Chills R68. 83 and Sore throat J02.9 [place] [address] [place] [id number] [address] [place] [address] May, [place] [id number] [place] [address] Apr, [facility] [address] [place] [id number] [address] [place] [address] 19 Apr, 2016 Acute mucoid otitis media of both ears H65.113 [place] [address] [place] [id number] [place] [address] 07 Apr, 2016 Yeast dermatitis B37.2 and H ematuria R31.9 [place] [id number] [place] [address] Mar, [place] [address] [place] [address] Mar, [place] [address] [address] Feb, Left anterior knee pain M25. 562 [place] [address] [place] [id number] [place] [address] Feb, Chronic pain G89.29 ; Essent ial hypertension I10 ; Depressive disorder, not elsewhere classified F32.9 ; GERD (gastroesophageal reflux disease) K21.9 and History of long-term use of multiple prescription drugs Z92.29 [place] [address] [address] Jan, [place] [address] [address] Jan, Well woman exam Z01.419 ; BM I 45.0-49.9, adult Z68.42 ; Family history of diabetes mellitus Z83.3 and Chronic pain G89.[address] [address] December, Chronic pain G89.29 ; Essent ial hypertension I10 ; Depressive disorder, not elsewhere classified F32.9 ; GERD (gastroesophageal reflux disease) K21.9 ; 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 ; History of long-term use of multiple prescription drugs Z92.29 and Obesity E66.9 [place] [address] [address] Oct, [address] [address] Oct, Well woman exam Z01.419 ; BM [...] smear Z12.4 and No natural teeth K00.[address] [address] Oct, [address] [address] Sep, Chronic pain G89.29 ; Essent ial hypertension I10 ; GERD (gastroesophageal reflux disease) K21.9 ; 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 ; Skin infection L08.9 and History of long-term use of multiple prescription drugs Z92.29 [place] [address] [address] Aug, [place] [address] [address] Jul, [place] [address] [address] Jul, [place] [address] [address] Jul, Upper respiratory infection J06.9 [place] [address] [address] Jul, Depressive disorder, not els ewhere classified F32.[address] [address] Jul, Chronic pain 338.29 [place] [address] [address] Jul, Chronic pain G89.29 [place] [address] [address] Jun, Poison josep L23.7 [place] [address] [address] Jun, Allergic contact dermatitis due to plants, except food L23.7 [place] [address] [place] [id number] [place] [address] 03 Jun, 2015 Essential hypertension I10 ; Chronic pain G89.29 ; GERD (gastroesophageal reflux disease) K21.9 and Numbness and tingling in hands R20.2 [place] [address] [place] [id number] [address] [place] [address] May, [place] [address] [address] Apr, [facility] [address] [place] [id number] [address] [place] [address] Mar, [facility] [address] [place] [id number] [place] [address] Feb, Abdominal pain, left lateral 789.09 and Constipation 564.00 [place] [address] [address] Feb, Depressive disorder, not els ewhere classified 311 and No condition on [place] II V71.09 [place] [address] [address] Feb, Spider bite 989.5 and Depres homar 311 [place] [address] [address] Feb, [place] [address] [address] Feb, Chronic pain 338.29 ; Arthro zonia 716.90 and GERD (gastroesophageal reflux disease) 530.81 [place] [address] [address] Jan, Insect bites 919.4 [place] [address] [place] [id number] [place] [address] Jan, [facility] [address] [address] December, Skin infection, bacterial 68 6.9 ; Conjunctivitis 372.30 and Insect bites 919.4 [place] [address] [place] [id number] [address] [place] [address] December, Chronic pain 338.29 ; Arthro zonia 716.90 ; Skin infection, bacterial 686.9 and Conjunctivitis 372.30 [facility] [address] [place] [id number] [address] [place] [address] December, [facility] [address] [place] [address] 14 Nov, 2014 [facility] [address] [id number] [address] [place] [address], [place] [address] 13 Nov, 2014 [facility] [address] [id number] [address] [place] [address], [place] [address] Oct, [facility] [address] [id number] [address] [place] [address], [place] [address] Oct, [facility] [address] [id number] [address] [place] [address], [place] [address] Sep, [facility] [address] [id number] [address] [place] [address], [place] [address] Sep, [facility] [address] [id number] [address] [place] [address], [place] [address] Aug, [facility] [address] [id number] [address] [place] [address], [place] [address] Aug, [facility] [address] [id number] [address] [place] [address], [place] [address] Aug, [facility] [address] [id number] [address] [place] [address], [place] [address] Aug, [facility] [address] [id number] [address] [place] [address], [place] [address] Jul, [facility] [address] [id number] [address] [place] [address], [place] [address] Jul, [facility] [address] [id number] [address] [place] [address], [place] [address] Jul, [facility] [address] [id number] [address] [place] [address], [place] [address] Jul, [facility] [address] [id number] [address] [place] [address], [place] [address] Jul, [facility] [address] [id number] [address] [place] [address], [place] [address] Jul, [facility] [address] [id number] [address] [place] [address], [place] [address] Jul, [facility] [address] [id number] [address] [place] [address], [place] [address] Jul, [facility] [address] [id number] [address] [place] [address], [place] [address] Jul, [facility] [address] [id number] [address] [place] [address], [place] [address] Jun, [facility] [address] [id number] [address] [place] [address], [place] [address] Jun, [facility] [address] [id number] [address] [place] [address], [place] [address] Jun, [facility] [address] [id number] [address] [place] [address], [place] [address] Jun, [facility] [address] [id number] [address] [place] [address], [place] [address] Jun, [facility] [address] [id number] [address] [place] [address], [place] [address] Jun, [facility] [address] [id number] [address] [place] [address], [place] [address] Jun, [facility] [address] [id number] [address] [place] [address], [place] [address] Jun, [facility] [address] [id number] [address] [place] [address], [place] [address] May, [facility] [address] [id number] [address] [place] [address], [place] [address] May, [facility] [address] [id number] [address] [place] [address], [place] [address] May, [facility] [address] [id number] [address] [place] [address], [place] [address] May, [facility] [address] [id number] [address] [place] [address], [place] [address] May, [facility] [address] [id number] [address] [place] [address], [place] [address] Apr, 2013 [facility] [address] [id number] [address] [place] [address], [place] [address] Apr, [facility] [address] [id number] [address] [place] [address], [place] [address] Apr, [facility] [address] [id number] [address] [place] [address], [place] [address] Apr, 2013 [facility] [address] [id number] [address] [place] [address], [place] [address] Apr, [facility] [address] [id number] [address] [place] [address], [place] [address] Apr, [facility] [address] [id number] [address] [place] [address], [place] [address] Apr, [facility] [address] [id number] [address] [place] [address], [place] [address] Apr, [facility] [address] [id number] [address] [place] [address], [place] [address] Apr, [facility] [address] [id number] [address] [place] [address], [place] [address] Apr, [facility] [address] [id number] [address] [place] [address], [place] [address] Mar, [facility] [address] [id number] [address] [place] [address], [place] [address] Mar, [facility] [address] [id number] [address] [place] [address], [place] [address] Mar, [facility] [address] [id number] [address] [place] [address], [place] [address] Mar, [facility] [address] [id number] [address] [place] [address], [place] [address] Mar, [facility] [address] [id number] [address] [place] [address], [place] [address] Mar, [facility] [address] [id number] [address] [place] [address], [place] [address] Feb, [facility] [address] [id number] [address] [place] [address], [place] [address] Feb, [facility] [address] [id number] [address] [place] [address], [place] [address] Jan, [facility] [address] [id number] [address] [place] [address], [place] [address] Jan, [facility] [address] [id number] [address] [place] [address], [place] [address] Jan, [facility] [address] [id number] [address] [place] [address], [place] [address] Jan, [facility] [address] [id number] [address] [place] [address], [place] [address] December, [facility] [address] [id number] [address] [place] [address], [place] [address] December, [facility] [address] [id number] [address] [place] [address], [place] [address] December, [facility] [address] [id number] [address] [place] [address], [place] [address] December, [facility] [address] [id number] [address] [place] [address], [place] [address] December, [facility] [address] [id number] [address] [place] [address], [place] [address] December, [facility] [address] [id number] [address] [place] [address], [place] [address] December, [facility] [address] [id number] [address] [place] [address], [place] [address] December, [facility] [address] [id number] [address] [place] [address], [place] [address] December, [facility] [address] [id number] [address] [place] [address], [place] [address] Nov, [facility] [address] [id number] [address] [place] [address], [place] [address] Nov, [facility] [address] [id number] [address] [place] [address], [place] [address] Nov, [facility] [address] [id number] [address] [place] [address], [place] [address] Nov, [facility] [facility] [address] [id number] [address] [place] [address], [place] [address] Nov, [facility] [address] [id number] [address] [place] [address], [place] [address] Nov, [facility] [address] [id number] [address] [place] [address], [place] [address] Nov, [facility] [address] [id number] [address] [place] [address], [place] [address] Nov, [facility] [address] [id number] [address] [place] [address], [place] [address] Nov, [facility] [address] [id number] [address] [place] [address], [place] [address] Nov, [facility] [address] [id number] [address] [place] [address], [place] [address] Oct, [facility] [address] [id number] [address] [place] [address], [place] [address] Oct, [facility] [address] [id number] [address] [place] [address], [place] [address] Sep, [facility] [address] [id number] [address] [place] [address], [place] [address] Sep, [facility] [address] [id number] [address] [place] [address], [place] [address] Aug, [facility] [address] [id number] [address] [place] [address], [place] [address] 17 Aug, 2013 [facility] [address] [id number] [address] [place] [address], [place] [address] Aug, [facility] [address] [id number] [address] [place] [address], [place] [address] Aug, [facility] [address] [id number] [address] [place] [address], [place] [address] Jul, [facility] [address] [id number] [address] [place] [address], [place] [address] Jul, [facility] [address] [id number] [address] [place] [address], [place] [address] Jul, [facility] [address] [id number] [address] [place] [address], [place] [address] Jul, [facility] [address] [id number] [address] [place] [address], [place] [address] Jun, [facility] [address] [id number] [address] [place] [address], [place] [address] Jun, [facility] [address] [id number] [address] [place] [address], [place] [address] May, [facility] [address] [id number] [address] [place] [address], [place] [address] May, [facility] [address] [id number] [address] [place] [address], [place] [address] May, [facility] [address] [id number] [address] [place] [address], [place] [address] May, [facility] [address] [id number] [address] [place] [address], [place] [address] May, [facility] [address] [id number] [address] [place] [address], [place] [address] May, [facility] [address] [id number] [address] [place] [address], [place] [address] 30 Apr, 2013 [facility] [address] [id number] [address] [place] [address], [place] [address] 23 Apr, 2013 [facility] [address] [id number] [address] [place] [address], [place] [address] Apr, [facility] [address] [id number] [address] [place] [address], [place] [address] Feb, [facility] [address] [id number] [address] [place] [address], [place] [address] Jan, [facility] [address] [id number] [address] [place] [address], [place] [address] 18 Jan, 2013 [facility] [address] [id number] [address] [place] [address], [place] [address] 17 Jan, 2013 [facility] [address] [id number] [address] [place] [address], [place] [address] Jan, [facility] [address] [id number] [address] [place] [address], [place] [address] December, [facility] [address] [id number] [address] [place] [address], [place] [address] December, [facility] [address] [id number] [address] [place] [address], [place] [address] 24 Nov, 2012 [facility] [address] [id number] [address] [place] [address], [place] [address] Nov, [facility] [address] [id number] [address] [place] [address], [place] [address] Nov, [facility] [address] [id number] [address] [place] [address], [place] [address] Nov, [facility] [address] [id number] [address] [place] [address], [place] [address] Nov, [facility] [address] [id number] [address] [place] [address], [place] [address] Nov, [facility] [address] [id number] [address] [place] [address], [place] [address] 03 Nov, 2012 [facility] [address] [id number] [address] [place] [address], [place] [address] 27 Oct, 2012 [facility] [address] [id number] [address] [place] [address], [place] [address] 18 Oct, 2012 [facility] [address] [id number] [address] [place] [address], [place] [address] 14 Oct, 2012 [facility] [address] [id number] [address] [place] [address], [place] [address] 13 Oct, 2012 [facility] [address] [id number] [address] [place] [address], [place] [address] 12 Oct, 2012 [facility] [address] [id number] [address] [place] [address], [place] [address] 11 Oct, 2012 [facility] [address] [id number] [address] [place] [address], [place] [address] 08 Oct, 2012 [facility] [address] [id number] [address] [place] [address], [place] [address] 20 Sep, 2012 [facility] [address] [id number] [address] [place] [address], [place] [address] Sep, [facility] [address] [id number] [address] [place] [address], [place] [address] Aug, [facility] [address] [id number] [address] [place] [address], [place] [address] Aug, [facility] [address] [id number] [address] [place] [address], [place] [address] Jul, [facility] [address] [id number] [address] [place] [address], [place] [address] Jul, [facility] [address] [id number] [address] [place] [address], [place] [address] Jul, [facility] [address] [id number] [address] [place] [address], [place] [address] Jul, [facility] [address] [id number] [address] [place] [address] Jul, [facility] [address] [facility] [id number] [address] [place] [address] Jul, [facility] [address] [facility] [id number] [address] [place] [address] Jul, [facility] [address] [facility] [id number] [address] [place] [address] Jul, [facility] [address] [facility] [id number] [address] [place] [address] Jun, [facility] [address] [facility] [id number] [address] [place] [address] Jun, IMMUNIZATIONS No Known Immunizations SOCIAL HISTORY Never Assessed REASON FOR VISIT PLAN OF CARE VITAL SIGNS Height 62 in 2014-08-04 Weight 247.8 lbs 2014-08-04 Temperature 97.6 degrees Fahrenheit 2014-08-04 Heart Rate 80 bpm 2014-08-04 Respiratory Rate 20 2014-08-04 Blood pressure systolic 130 mmHg 2014-08-04 Blood pressure diastolic 80 mmHg 2014-08-04 MEDICATIONS Unknown Medications RESULTS No Results PROCEDURES Procedure Date Ordered Result Body Site MYCOPLASMA ANTIBODY Aug 04, 2014 VENIPUNCT, ROUTINE* Aug 04, 2014 INSTRUCTIONS MEDICATIONS ADMINISTERED No Known Medications [...] -- total 11/2012 Hospitalization History ER- in [place] due to left knee 8
--- OUTSIDE RECORDS SUMMARY | 2020-02-11 03:15 | XMS REPORT ---
Author Author АНДРЕЙ Madelineshawn LEONG Organization [facility] Address [address] [place] [address] Care Team Providers Care Life Insurance Sales Agent Name Role Phone KWESIKennedy DANG Unavailable PROBLEMS Type Condition ICD9-CM Code LFO68-FZ Code Onset Dates Condition S tatus SNOMED Code Problem Numbness and tingling in hands R20.2 Active 887740290 Problem History of abnormal cervical Pap smear Z87.898 Active 209258443 Problem Stasis dermatitis of both legs I87.2 Active 69780865 Problem Pre-diabetes R73.09 Active 9665770 02 Problem Morbid obesity due to excess calories E66.01 Active 390229022 Problem GERD (gastroesophageal reflux disease) K21.9 Active 974346860 Problem Mood disorder F39 Active 837487 05 Problem Chronic pain G89.29 Active 5668376 1 Problem BMI 45.0-49.9, adult Z68.42 Active 447616437 Problem Essential hypertension I10 Active 58278290 Problem Primary insomnia F51.01 Active 397 2004 Problem Chronic recurrent major depressive disorder F33.9 Active 9131086 ALLERGIES No Information ENCOUNTERS Encounter Location Date Diagnosis [facility] [address] [facility] [id number] [address] [place] [address] May, [facility] [address] [facility] [id number] [address] [place] [address] Apr, Mood disorder F39 [facility] [address] [facility] [id number] [address] [place] [address] 27 Mar, 2019 Chronic pain G89.29 and BMI 45.0-49.9, adult Z68.42 [facility] [address] [facility] [id number] [address] [place] [address] Mar, Morbid obesity E66.01 ; 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 recurrent major depressive disorder F33.9 ; Morbid obesity due to excess calories E66.01 and High risk medication use Z79.899 [facility] [address] [facility] [id number] [address] [place] [address] Mar, Chronic pain G89.29 and BMI 45.0-49.9, adult Z68.42 [facility] [address] [place] [id number] [address] [place] [address] Feb, [facility] [address] [place] [id number] [place] [address] Feb, Chronic pain G89.29 and BMI 45.0-49.9, adult Z68.42 [place] [address] [place] [id number] [place] [address] Jan, [place] [address] [place] [id number] [place] [address] Jan, Chronic pain G89.29 and BMI 45.0-49.9, adult Z68.42 [facility] [address] [place] [id number] [address] [place] [address] Jan, [place] [address] [place] [id number] [place] [address] December, Chronic pain G89.29 and BMI 45.0-49.9, adult Z68.42 [facility] [address] [place] [id number] [address] [place] [address] Nov, Morbid obesity E66.01 and Ce llulitis of leg, left L03.116 [facility] [address] [place] [id number] [address] [place] [address] 15 Nov, 2018 Cellulitis of left lower ext remity L03.116 and Morbid obesity E66.01 [facility] [address] [facility] [id number] [address] [place] [address] Nov, [facility] [address] [place] [id number] [address] [place] [address] 12 Apr, 2019 Morbid obesity E66.01 and Ce llulitis of left lower extremity L03.116 [place] [address] [place] [id number] [address] [place] [address] Nov, Chronic pain G89.29 and BMI 45.0-49.9, adult Z68.42 [place] [address] [place] [id number] [place] [address] Oct, BMI 45.0-49.9, adult Z68.42 and Chronic pain G89.29 [place] [address] [place] [id number] [place] [address] 14 Sep, 2018 BMI 45.0-49.9, adult Z68.42 and Chronic pain G89.29 [place] [address] [place] [id number] [place] [address] 05 Sep, 2018 BMI 45.0-49.9, adult Z68.42 and Essential hypertension I10 [place] [address] [address] Aug, BMI 45.0-49.9, adult Z68.42 ; Chronic pain G89.29 ; Essential hypertension I10 and Primary insomnia F51.01 [place] [address] [place] [id number] [place] [address] Aug, Chronic pain G89.29 [place] [address] [address] Jul, Chronic pain G89.29 [place] [address] [place] [id number] [address] [place] [address] Jun, Chronic pain G89.29 [place] [address] [address] May, Chronic pain G89.29 [place] [address] [place] [id number] [address] [place] [address] 03 May, 2018 BMI 40.0-44.9, adult Z68.41 ; Other chronic pain G89.29 ; Pain in right hip M25.551 and Acute pain of left knee M25.562 [facility] [address] [id number] [address] [place] [address] May, Chronic pain G89.29 [facility] [address] [id number] [address] [place] [address] Apr, Chronic pain G89.29 [facility] [address] [id number] [address] [place] [address] Mar, Poison josep L23.7 [facility] [address] [id number] [address] [place] [address] Mar, Chronic pain G89.29 [facility] [address] [id number] [address] [place] [address] Feb, Chronic pain G89.29 [place] [address] [facility] [id number] [address] [place] [address] Feb, Poison josep L23.7 [facility] [address] [id number] [address] [place] [address] Jan, Chronic pain G89.29 [facility] [address] [id number] [address] [place] [address] December, Chronic pain G89.29 [place] [address] [facility] [id number] [address] [place] [address] Nov, Long-term use of high-risk m edication Z79.899 [facility] [address] [id number] [address] [place] [address] Nov, Chronic pain G89.29 [facility] [address] [facility] [id number] [address] [place] [address] Oct, Chronic pain G89.29 ; Pre-di abetes R73.09 ; Long-term use of high- risk medication Z79.899 ; Allergic rhinitis, unspecified seasonality, unspecified trigger J30.9 ; BMI 45.0-49.9, adult Z68.42 and Essential hypertension I10 [facility] [address] [place] [id number] [address] [place] [address] Oct, Chronic pain G89.29 [facility] [address] [place] [id number] [address] [place] [address] Sep, Chronic pain G89.29 [place] [address] [place] [id number] [place] [address] Aug, Chronic pain G89.29 [facility] [address] [place] [id number] [place] [address] Jul, [place] [address] [place] [id number] [place] [address] Jul, [place] [address] [place] [id number] [place] [address] Jun, Chronic pain G89.29 ; BMI 45 .0-49.9, adult Z68.42 ; Pre-diabetes R73.09 ; Essential hypertension I10 ; GERD (gastroesophageal reflux disease) K21.9 ; Yeast dermatitis B37.2 ; Dysuria R30.0 ; Acute non-recurrent maxillary sinusitis J01.00 and Acute cystitis with hematuria N30.01 [place] [address] [place] [id number] [place] [address] 13 Jun, 2017 Chronic pain G89.29 [place] [address] [place] [id number] [place] [address] Jun, Acute non-recurrent maxillar y sinusitis J01.00 and BMI 45.0-49.9, adult Z68.42 [place] [address] [address] May, [place] [address] [place] [id number] [place] [address] May, Chronic pain G89.29 [place] [address] [place] [id number] [place] [address] May, [place] [address] [facility] [id number] [address] [place] [address] Apr, Chronic pain G89.29 [place] [address] [facility] [id number] [address] [place] [address] Mar, [place] [address] [place] [id number] [address] [place] [address] Mar, Essential hypertension I10 a nd Pre-diabetes R73.09 [place] [address] [place] [id number] [address] [place] [address] 15 Mar, 2017 Chronic pain G89.29 ; Essent ial hypertension I10 ; Depressive disorder, not elsewhere classified F32.9 ; GERD (gastroesophageal reflux disease) K21.9 ; Pre-diabetes R73.09 ; Stasis dermatitis of both legs I87.2 and Acute non-recurrent maxillary sinusitis J01.00 [place] [id number] [place] [address] Mar, Chronic pain G89.29 [place] [address] [place] [id number] [address] [place] [address] Mar, Achilles tendinitis of right lower extremity M76.61 and Tinea corporis B35.4 [place] [address] [place] [id number] [place] [address] 17 Feb, 2017 Yeast dermatitis B37.2 [place] [address] [place] [id number] [place] [address] 14 Feb, 2017 Candidal intertrigo B37.2 an d Acute right ankle pain M25.571 [place] [address] [facility] [id number] [address] [place] [address] Feb, Chronic pain G89.29 [place] [address] [place] [id number] [address] [place] [address] Jan, [place] [address] [place] [id number] [place] [address] Jan, Chronic pain G89.29 [place] [address] [facility] [id number] [address] [place] [address] December, Chronic pain G89.29 ; Essent ial hypertension I10 ; Depressive disorder, not elsewhere classified F32.9 ; GERD (gastroesophageal reflux disease) K21.9 ; Pre-diabetes R73.09 ; Screening breast examination Z12.39 ; Stasis dermatitis of both legs I87.2 and Yeast dermatitis B37.2 [place] [address] [facility] [id number] [address] [place] [address] Nov, Chronic pain G89.29 [place] [address] [facility] [id number] [address] [place] [address] Nov, Cellulitis of left lower ext remity L03.116 [place] [address] [place] [id number] [address] [place] [address] Nov, Cellulitis of left lower ext remity L03.116 [place] [address] [facility] [id number] [address] [place] [address] Oct, Yeast dermatitis B37.2 [place] [address] [place] [id number] [address] [place] [address] Oct, Chronic pain G89.29 [place] [address] [place] [id number] [address] [place] [address] Sep, Chronic pain G89.29 ; Essent ial hypertension I10 ; Depressive disorder, not elsewhere classified F32.9 and GERD (gastroesophageal reflux disease) K21.9 [place] [address] [facility] [id number] [address] [place] [address] Aug, Chronic pain G89.29 [place] [address] [place] [id number] [address] [place] [address] Aug, Cough R05 ; Rash R21 and Vinay h and nonspecific skin eruption R21 [place] [address] [place] [id number] [address] [place] [address] Jul, Chronic pain G89.29 [place] [address] [place] [id number] [place] [address] 23 Jun, 2016 Chronic pain G89.29 ; Bronch itis J40 ; Essential hypertension I10 ; Depressive disorder, not elsewhere classified F32.9 ; GERD (gastroesophageal reflux disease) K21.9 and History of long-term use of multiple prescription drugs Z92.29 [place] [address] [address] 17 Jun, 2016 Bronchitis J40 ; Chills R68. 83 and Sore throat J02.9 [place] [address] [address] May, [place] [address] [address] 29 Apr, 2016 [facility] [address] [place] [id number] [place] [address] 19 Apr, 2016 Acute mucoid otitis media of both ears H65.113 [place] [address] [address] 07 Apr, 2016 Yeast dermatitis B37.2 and H ematuria R31.9 [place] [address] [place] [id number] [place] [address] Mar, [place] [address] [address] Mar, [place] [address] [address] Feb, Left anterior knee pain M25. 562 [place] [address] [address] Feb, Chronic pain G89.29 ; Essent ial hypertension I10 ; Depressive disorder, not elsewhere classified F32.9 ; GERD (gastroesophageal reflux disease) K21.9 and History of long-term use of multiple prescription drugs Z92.29 [place] [address] [address] Jan, [place] [id number] [place] [address] Jan, Well woman exam Z01.419 ; BM I 45.0-49.9, adult Z68.42 ; Family history of diabetes mellitus Z83.3 and Chronic pain G89.[address] [address] December, Chronic pain G89.29 ; Essent ial hypertension I10 ; Depressive disorder, not elsewhere classified F32.9 ; GERD (gastroesophageal reflux disease) K21.9 ; 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 ; History of long-term use of multiple prescription drugs Z92.29 and Obesity E66.[address] [address] Oct, [address] [address] Oct, Well woman exam Z01.419 ; BM [...] smear Z12.4 and No natural teeth K00.0 [place] [address] [place] [id number] [address] [place] [address] Oct, [address] [address] Sep, Chronic pain G89.29 ; Essent ial hypertension I10 ; GERD (gastroesophageal reflux disease) K21.9 ; 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 ; Skin infection L08.9 and History of long-term use of multiple prescription drugs Z92.[address] [place] [address] Aug, [facility] [address] [facility] [id number] [address] [place] [address] Jul, [facility] [address] [facility] [id number] [address] [place] [address] Jul, [facility] [address] [place] [id number] [place] [address] Jul, Upper respiratory infection J06.9 [facility] [address] [place] [id number] [address] [place] [address] Jul, Depressive disorder, not els ewhere classified F32.9 [facility] [address] [facility] [id number] [address] [place] [address] Jul, Chronic pain 338.29 [place] [address] [address] Jul, Chronic pain G89.29 [facility] [address] [address] Jun, Poison josep L23.7 [place] [address] [address] Jun, Allergic contact dermatitis due to plants, except food L23.7 [place] [address] [address] Jun, Essential hypertension I10 ; Chronic pain G89.29 ; GERD (gastroesophageal reflux disease) K21.9 and Numbness and tingling in hands R20.2 [facility] [address] [facility] [id number] [address] [place] [address] May, [facility] [address] [place] [id number] [place] [address] Apr, [facility] [address] [place] [id number] [address] [place] [address] Mar, [facility] [address] [address] Feb, Abdominal pain, left lateral 789.09 and Constipation 564.00 [facility] [address] [address] Feb, Depressive disorder, not els ewhere classified 311 and No condition on O'[place]als II V71.09 [place] [address] [address] Feb, Spider bite 989.5 and Depres homar 311 [facility] [address] [address] Feb, [facility] [address] [address] Feb, Chronic pain 338.29 ; Arthro zonia 716.90 and GERD (gastroesophageal reflux disease) 530.81 [facility] [address] [address] Jan, Insect bites 919.4 [facility] [address] [address] Jan, [facility] [address] [address] December, Skin infection, bacterial 68 6.9 ; Conjunctivitis 372.30 and Insect bites 919.4 [facility] [address] [address] December, Chronic pain 338.29 ; Arthro zonia 716.90 ; Skin infection, bacterial 686.9 and Conjunctivitis 372.30 [facility] [address] [address] December, [facility] [address] [address] Nov, [facility] [address] [address] Nov, [facility] [address] [id number] [address] [place] [address], [place] [address] Oct, [facility] [address] [id number] [address] [place] [address], [place] [address] Oct, [facility] [address] [id number] [address] [place] [address], [place] [address] Sep, [facility] [address] [id number] [address] [place] [address], [place] [address] Sep, [facility] [address] [id number] [address] [place] [address], [place] [address] Aug, [facility] [address] [id number] [address] [place] [address], [place] [address] Aug, [facility] [address] [id number] [address] [place] [address], [place] [address] Aug, [facility] [address] [id number] [address] [place] [address], [place] [address] Aug, [facility] [address] [id number] [address] [place] [address], [place] [address] Jul, [facility] [address] [id number] [address] [place] [address], [place] [address] Jul, [facility] [address] [id number] [address] [place] [address], [place] [address] Jul, [facility] [address] [id number] [address] [place] [address], [place] [address] Jul, [facility] [address] [id number] [address] [place] [address], [place] [address] Jul, [facility] [address] [id number] [address] [place] [address], [place] [address] Jul, [facility] [address] [id number] [address] [place] [address], [place] [address] Jul, [facility] [address] [id number] [address] [address] Jul, [facility] [address] [id number] [address] [place] [address], [place] [address] Jul, [facility] [address] [id number] [address] [place] [address], [place] [address] Jun, [facility] [address] [id number] [address] [place] [address], [place] [address] Jun, [facility] [address] [id number] [address] [place] [address] Jun, [facility] [address] [id number] [address] [place] [address], [place] [address] Jun, [facility] [address] [id number] [address] [place] [address], [place] [address] Jun, [facility] [address] [id number] [address] [place] [address], [place] [address] Jun, [facility] [address] [id number] [address] [place] [address], [place] [address] Jun, [facility] [address] [id number] [address] [place] [address], [place] [address] Jun, [facility] [address] [id number] [address] [place] [address], [place] [address] May, [facility] [address] [id number] [address] [place] [address], [place] [address] May, [facility] [address] [id number] [address] [place] [address] May, [facility] [address] [id number] [address] [place] [address], [place] [address] May, [facility] [address] [id number] [address] [place] [address], [place] [address] May, [facility] [address] [id number] [address] [place] [address], [place] [address] Apr, [facility] [address] [id number] [facility] [place] [address] 26 Apr, 2013 [facility] [address] [id number] [address] [place] [address], [place] [address] 25 Apr, 2013 [facility] [address] [id number] [facility] [place] [address] Apr, 2013 [facility] [address] [id number] [address] [place] [address], [place] [address] 18 Apr, 2013 [facility] [address] [id number] [address] [place] [address], [place] [address] 18 Apr, 2013 [facility] [address] [id number] [address] [place] [address], [place] [address] Apr, 2013 [facility] [address] [id number] [address] [place] [address], [place] [address] Apr, 2013 [facility] [address] [id number] [address] [place] [address], [place] [address] Apr, [facility] [address] [id number] [address] [place] [address], [place] [address] Apr, [facility] [address] [id number] [address] [place] [address], [place] [id number] Mar, [facility] [address] [id number] [address] [place] [address], [place] [id number] Mar, [facility] [address] [id number] [address] [place] [address], [place] [id number] Mar, [facility] [address] [id number] [address] [place] [address], [place] [id number] Mar, [facility] [address] [id number] [address] [place] [address], [place] [id number] Mar, [facility] [address] [id number] [address] [place] [address], [place] [id number] Mar, [facility] [address] [id number] [address] [place] [address], [place] [id number] Feb, [facility] [address] [id number] [address] [place] [address], [place] [id number] Feb, [facility] [address] [id number] [address] [place] [address], [place] [id number] Jan, [facility] [address] [id number] [address] [place] [address], [place] [id number] Jan, [facility] [address] [id number] [address] [place] [address], [place] [id number] Jan, [facility] [address] [id number] [address] [place] [address], [place] [id number] Jan, [facility] [address] [id number] [address] [place] [address], [place] [id number] December, [facility] [address] [id number] [address] [place] [address], [place] [id number] December, [facility] [address] [id number] [address] [place] [address], [place] [id number] December, [facility] [address] [id number] [address] [place] [address], [place] [id number] December, [facility] [address] [id number] [address] [place] [address], [place] [id number] December, [facility] [address] [id number] [address] [place] [address], [place] [id number] December, [facility] [address] [id number] [address] [place] [address], [place] [id number] December, [facility] [address] [id number] [address] [place] [address], [place] [id number] December, [facility] [address] [id number] [address] [place] [address], [place] [id number] December, [facility] [address] [id number] [address] [place] [address], [place] [id number] Nov, [facility] [address] [id number] [address] [place] [address], [place] [id number] Nov, [facility] [address] [id number] [address] [place] [address], [place] [id number] Nov, [facility] [address] [id number] [address] [place] [address], [place] [id number] Nov, [facility] [address] [id number] [address] [place] [address], [place] [id number] Nov, [facility] [address] [id number] [address] [place] [address], [place] [id number] Nov, [facility] [address] [id number] [address] [place] [address], [place] [id number] Nov, [facility] [address] [id number] [address] [place] [address], [place] [address] Nov, [facility] [address] [id number] [address] [place] [address], [place] [address] Nov, [facility] [address] [id number] [address] [place] [address], [place] [address] Nov, [facility] [address] [id number] [address] [place] [address], [place] [id number] Oct, [facility] [address] [id number] [address] [place] [address], [place] [id number] Oct, [facility] [address] [id number] [address] [place] [address], [place] [id number] Sep, [facility] [address] [id number] [address] [place] [address], [place] [id number] Sep, [facility] [address] [id number] [address] [place] [address], [place] [id number] Aug, [facility] [address] [id number] [address] [place] [address], [place] [id number] Aug, [facility] [address] [id number] [address] [place] [address], [place] [id number] Aug, [facility] [address] [id number] [address] [place] [address], [place] [id number] 16 Aug, 2013 [facility] [address] [id number] [address] [place] [address], [place] [id number] Jul, [facility] [address] [id number] [address] [place] [address], [place] [id number] Jul, [facility] [address] [id number] [address] [place] [address], [place] [address] Jul, [facility] [address] [id number] [address] [place] [address], [place] [id number] Jul, [facility] [address] [id number] [address] [place] [address], [place] [address] Jun, [facility] [address] [id number] [address] [place] [address], [place] [id number] Jun, [facility] [address] [id number] [address] [place] [address], [place] [id number] May, [facility] [address] [id number] [address] [place] [address], [place] [id number] May, [facility] [address] [id number] [address] [place] [address], [place] [address] May, [facility] [address] [id number] [address] [place] [address], [place] [id number] May, [facility] [address] [id number] [address] [place] [address], [place] [address] May, [facility] [address] [id number] [address] [place] [address], [place] [id number] May, [facility] [address] [id number] [address] [place] [address], [place] [id number] 30 Apr, 2013 [facility] [address] [id number] [address] [place] [address], [place] [id number] 23 Apr, 2013 [facility] [address] [id number] [address] [place] [id number] Apr, [facility] [address] [id number] [address] [place] [address], [place] [address] Feb, [facility] [address] [id number] [address] [place] [address], [place] [id number] Jan, [facility] [address] [id number] [address] [place] [address], [place] [address] Jan, [facility] [address] [id number] [address] [place] [address], [place] [id number] Jan, [facility] [address] [id number] [address] [place] [address], [place] [id number] Jan, [facility] [address] [id number] [address] [place] [address], [place] [address] December, [facility] [address] [id number] [address] [place] [address], [place] [id number] December, [facility] [address] [id number] [address] [place] [address], [place] [id number] Nov, [facility] [address] [id number] [address] [place] [address], [place] [address] Nov, [facility] [address] [id number] [address] [place] [address], [place] [id number] Nov, [facility] [address] [id number] [address] [place] [address], [place] [address] Nov, [facility] [address] [id number] [address] [place] [address], [place] [id number] Nov, [facility] [address] [id number] [address] [place] [address], [place] [id number] Nov, [facility] [address] [id number] [address] [place] [address], [place] [address] Nov, [facility] [address] [id number] [address] [place] [address], [place] [id number] Oct, [facility] [address] [id number] [address] [place] [address], [place] [id number] 18 Oct, 2012 [facility] [address] [id number] [address] [place] [address], [place] [address] 14 Oct, 2012 [facility] [address] [id number] [address] [place] [address], [place] [id number] 13 Oct, 2012 [facility] [address] [id number] [address] [place] [address], [place] [address] 12 Oct, 2012 [facility] [address] [id number] [address] [place] [address], [place] [id number] 11 Oct, 2012 [facility] [address] [id number] [address] [place] [address], [place] [id number] 08 Oct, 2012 [facility] [address] [id number] [address] [place] [address], [place] [address] 20 Sep, 2012 [facility] [address] [id number] [address] [place] [address], [place] [id number] Sep, [facility] [address] [id number] [address] [place] [address], [place] [id number] Aug, [facility] [address] [id number] [address] [place] [address], [place] [id number] Aug, [facility] [address] [id number] [address] [place] [address], [place] [id number] Jul, [facility] [address] [id number] [address] [place] [address], [place] [id number] Jul, [facility] [address] [id number] [address] [place] [address], [place] [id number] Jul, [facility] [address] [id number] [address] [place] [address], [place] [id number] Jul, [facility] [address] [id number] [address] [place] [address], [place] [address] Jul, [facility] [address] [id number] [address] [place] [address], [place] [id number] Jul, [facility] [address] [facility] [id number] [address] [place] [id number] Jul, [facility] [address] [facility] [id number] [address] [place] [id number] Jul, [facility] [address] [facility] [id number] [address] [place] [id number] Jun, [facility] [address] [facility] [id number] [address] [place] [id number] Jun, IMMUNIZATIONS No Known Immunizations SOCIAL HISTORY Never Assessed REASON FOR VISIT PLAN OF CARE VITAL SIGNS Height 62 in 2014-05-02 Weight 243.7 lbs 2014-05-02 Temperature 97.3 degrees Fahrenheit 2014-05-02 Heart Rate 80 bpm 2014-05-02 Respiratory Rate 20 2014-05-02 Blood pressure systolic 122 mmHg 2014-05-02 Blood pressure diastolic 84 mmHg 2014-05-02 MEDICATIONS Unknown Medications RESULTS No Results PROCEDURES [...]
--- OUTSIDE RECORDS SUMMARY | 2020-02-11 03:16 | XMS REPORT ---
Author Author Madeline CHIANG [facility] Address [address] [place] [address] Care Team Providers Care Lamination Assembler Name Role Phone KWESIKennedy DANG Unavailable PROBLEMS Type Condition ICD9-CM Code HLD02-LO Code Onset Dates Condition S tatus SNOMED Code Problem GERD (gastroesophageal reflux disease) K21.9 Active 121976928 Problem Numbness and tingling in hands R20.2 Active 741672794 Problem History of abnormal cervical Pap smear Z87.898 Active 691509820 Problem Chronic recurrent major depressive disorder F33.9 Active 9812321 Problem Chronic pain G89.29 Active 1544929 1 Problem Morbid obesity due to excess calories E66.01 Active 963651929 Problem Pre-diabetes R73.09 Active 1285026 02 Problem Stasis dermatitis of both legs I87.2 Active 17030107 Problem BMI 45.0-49.9, adult Z68.42 Active 455620708 Problem Essential hypertension I10 Active 96062456 Problem Primary insomnia F51.01 Active 397 2004 ALLERGIES No Information ENCOUNTERS Encounter Location Date Diagnosis [facility] [address] [facility] [id number] [address] [place] [phone] Apr, [facility] [address] [place] [id number] [address] [place] [phone] Mar, Chronic pain G89.29 and BMI 45.0-49.9, adult Z68.42 [facility] [address] [facility] [id number] [address] [place] [phone] Mar, Morbid obesity E66.01 ; 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 ; Morbid obesity due to excess calories E66.01 and High risk medication use Z79.899 [facility] [address] [place] [id number] [address] [place] [address] Mar, Chronic pain G89.29 and BMI 45.0-49.9, adult Z68.42 [facility] [address] [place] [id number] [address] [place] [phone] Feb, [facility] [address] [facility] [id number] [address] [place] [phone] Feb, Chronic pain G89.29 and BMI 45.0-49.9, adult Z68.42 [facility] [address] [place] [id number] [address] [place] [phone] Jan, [place] [address] [place] [id number] [address] [place] [phone] Jan, Chronic pain G89.29 and BMI 45.0-49.9, adult Z68.42 [place] [address] [place] [id number] [address] [place] [phone] Jan, [facility] [address] [place] [id number] [address] [place] [phone] December, Chronic pain G89.29 and BMI 45.0-49.9, adult Z68.42 [place] [address] [place] [id number] [address] [place] [address] Nov, Morbid obesity E66.01 and Ce llulitis of leg, left L03.116 [place] [address] [place] [id number] [address] [place] [address] Nov, Cellulitis of left lower ext remity L03.116 and Morbid obesity E66.01 [facility] [address] [facility] [id number] [address] [place] [address] Nov, [place] [address] [place] [id number] [address] [place] [phone] Nov, Morbid obesity E66.01 and Ce llulitis of left lower extremity L03.116 [facility] [address] [place] [id number] [address] [place] [phone] Nov, Chronic pain G89.29 and BMI 45.0-49.9, adult Z68.42 [place] [address] [place] [id number] [place] [address] Oct, BMI 45.0-49.9, adult Z68.42 and Chronic pain G89.29 [place] [address] [place] [id number] [address] [place] [phone] 14 Sep, 2018 BMI 45.0-49.9, adult Z68.42 and Chronic pain G89.29 [place] [address] [place] [id number] [address] [place] [phone] 05 Sep, 2018 BMI 45.0-49.9, adult Z68.42 and Essential hypertension I10 [place] [address] [place] [id number] [place] [address] Aug, BMI 45.0-49.9, adult Z68.42 ; Chronic pain G89.29 ; Essential hypertension I10 and Primary insomnia F51.01 [place] [address] [place] [id number] [address] [place] [phone] Aug, Chronic pain G89.29 [place] [address] [place] [id number] [address] [place] [address] Jul, Chronic pain G89.29 [place] [address] [place] [id number] [address] [place] [phone] Jun, Chronic pain G89.29 [place] [address] [place] [id number] [address] [place] [phone] May, Chronic pain G89.29 [place] [address] [place] [id number] [address] [place] [address] May, BMI 40.0-44.9, adult Z68.41 ; Other chronic pain G89.29 ; Pain in right hip M25.551 and Acute pain of left knee M25.562 [place] [address] [place] [id number] [address] [place] [phone] May, Chronic pain G89.29 [facility] [address] [id number] [address] [place] [phone] Apr, Chronic pain G89.29 [facility] [address] [facility] [id number] [address] [place] [phone] Mar, Poison josep L23.7 [facility] [address] [facility] [id number] [address] [place] [phone] Mar, Chronic pain G89.29 [facility] [address] [id number] [address] [place] [phone] Feb, Chronic pain G89.29 [facility] [address] [facility] [id number] [address] [place] [phone] Feb, Poison josep L23.7 [facility] [address] [facility] [id number] [address] [place] [phone] Jan, Chronic pain G89.29 [facility] [address] [facility] [id number] [address] [place] [address] December, Chronic pain G89.29 [facility] [address] [facility] [id number] [address] [place] [phone] Nov, Long-term use of high-risk m edication Z79.899 [facility] [address] [facility] [id number] [address] [place] [phone] Nov, Chronic pain G89.29 [facility] [address] [facility] [id number] [address] [place] [phone] Oct, Chronic pain G89.29 ; Pre-di abetes R73.09 ; Long-term use of high- risk medication Z79.899 ; Allergic rhinitis, unspecified seasonality, unspecified trigger J30.9 ; BMI 45.0-49.9, adult Z68.42 and Essential hypertension I10 [facility] [address] [facility] [id number] [address] [place] [phone] Oct, Chronic pain G89.29 [facility] [address] [facility] [id number] [address] [place] [phone] Sep, Chronic pain G89.29 [facility] [address] [facility] [id number] [address] [place] [address] Aug, Chronic pain G89.29 [facility] [address] [place] [id number] [address] [place] [phone] Jul, [facility] [address] [place] [id number] [address] [place] [phone] Jul, [facility] [address] [place] [id number] [place] [address] Jun, Chronic pain G89.29 ; BMI 45 .0-49.9, adult Z68.42 ; Pre-diabetes R73.09 ; Essential hypertension I10 ; GERD (gastroesophageal reflux disease) K21.9 ; Yeast dermatitis B37.2 ; Dysuria R30.0 ; Acute non-recurrent maxillary sinusitis J01.00 and Acute cystitis with hematuria N30.01 [facility] [address] [place] [id number] [address] [place] [phone] Jun, Chronic pain G89.29 [facility] [address] [place] [id number] [address] [place] [phone] Jun, Acute non-recurrent maxillar y sinusitis J01.00 and BMI 45.0-49.9, adult Z68.42 [facility] [address] [place] [id number] [address] [place] [phone] May, [facility] [address] [place] [id number] [address] [place] [phone] May, Chronic pain G89.29 [facility] [address] [place] [id number] [address] [place] [phone] May, [facility] [address] [place] [id number] [address] [place] [phone] Apr, Chronic pain G89.29 [facility] [address] [facility] [id number] [address] [place] [phone] Mar, [place] [address] [place] [id number] [address] [place] [phone] Mar, Essential hypertension I10 a nd Pre-diabetes R73.09 [place] [address] [place] [id number] [address] [place] [phone] 15 Mar, 2017 Chronic pain G89.29 ; Essent ial hypertension I10 ; Depressive disorder, not elsewhere classified F32.9 ; GERD (gastroesophageal reflux disease) K21.9 ; Pre-diabetes R73.09 ; Stasis dermatitis of both legs I87.2 and Acute non-recurrent maxillary sinusitis J01.00 [place] [address] [facility] [id number] [address] [place] [phone] 11 Mar, 2017 Chronic pain G89.29 [place] [id number] [place] [address] Mar, Achilles tendinitis of right lower extremity M76.61 and Tinea corporis B35.4 [place] [address] [facility] [id number] [address] [place] [phone] 17 Feb, 2017 Yeast dermatitis B37.2 [place] [address] [facility] [id number] [address] [place] [phone] 14 Feb, 2017 Candidal intertrigo B37.2 an d Acute right ankle pain M25.571 [place] [address] [facility] [id number] [address] [place] [address] Feb, Chronic pain G89.29 [place] [address] [facility] [id number] [address] [place] [phone] Jan, [place] [address] [place] [id number] [address] [place] [phone] Jan, Chronic pain G89.29 [place] [address] [place] [id number] [address] [place] [phone] December, Chronic pain G89.29 ; Essent ial hypertension I10 ; Depressive disorder, not elsewhere classified F32.9 ; GERD (gastroesophageal reflux disease) K21.9 ; Pre-diabetes R73.09 ; Screening breast examination Z12.39 ; Stasis dermatitis of both legs I87.2 and Yeast dermatitis B37.2 [place] [address] [facility] [id number] [address] [place] [phone] Nov, Chronic pain G89.29 [place] [address] [facility] [id number] [address] [place] [phone] Nov, Cellulitis of left lower ext remity L03.116 [place] [address] [facility] [id number] [address] [place] [phone] Nov, Cellulitis of left lower ext remity L03.116 [place] [address] [facility] [id number] [address] [place] [phone] Oct, Yeast dermatitis B37.2 [place] [address] [facility] [id number] [address] [place] [phone] Oct, Chronic pain G89.29 [place] [address] [facility] [id number] [address] [place] [address] Sep, Chronic pain G89.29 ; Essent ial hypertension I10 ; Depressive disorder, not elsewhere classified F32.9 and GERD (gastroesophageal reflux disease) K21.9 [place] [address] [facility] [id number] [address] [place] [phone] Aug, Chronic pain G89.29 [place] [address] [facility] [id number] [address] [place] [address] Aug, Cough R05 ; Rash R21 and Vinay h and nonspecific skin eruption R21 [place] [address] [facility] [id number] [address] [place] [phone] Jul, Chronic pain G89.29 [place] [address] [place] [id number] [address] [place] [address] Jun, Chronic pain G89.29 ; Bronch itis J40 ; Essential hypertension I10 ; Depressive disorder, not elsewhere classified F32.9 ; GERD (gastroesophageal reflux disease) K21.9 and History of long-term use of multiple prescription drugs Z92.29 [place] [address] [address] Jun, Bronchitis J40 ; Chills R68. 83 and Sore throat J02.9 [place] [address] [address] May, [place] [address] [address] Apr, [facility] [address] [address] Apr, Acute mucoid otitis media of both ears H65.113 [place] [address] [address] Apr, Yeast dermatitis B37.2 and H ematuria R31.9 [place] [address] [address] Mar, [place] [address] [address] Mar, [place] [address] [address] Feb, Left anterior knee pain M25. 562 [place] [address] [address] Feb, Chronic pain G89.29 ; Essent ial hypertension I10 ; Depressive disorder, not elsewhere classified F32.9 ; GERD (gastroesophageal reflux disease) K21.9 and History of long-term use of multiple prescription drugs Z92.29 [place] [address] [address] Jan, [place] [address] [address] Jan, Well woman exam Z01.419 ; BM I 45.0-49.9, adult Z68.42 ; Family history of diabetes mellitus Z83.3 and Chronic pain G89.29 [place] [address] [address] December, Chronic pain G89.29 ; Essent ial hypertension I10 ; Depressive disorder, not elsewhere classified F32.9 ; GERD (gastroesophageal reflux disease) K21.9 ; 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 ; History of long-term use of multiple prescription drugs Z92.29 and Obesity E66.9 [place] [address] [address] Oct, [place] [address] [address] Oct, Well woman exam Z01.419 ; BM [...] smear Z12.4 and No natural teeth K00.0 [place] [address] [address] Oct, [address] [address] Sep, Chronic pain G89.29 ; Essent ial hypertension I10 ; GERD (gastroesophageal reflux disease) K21.9 ; 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 ; Skin infection L08.9 and History of long-term use of multiple prescription drugs Z92.29 [place] [address] [address] Aug, [place] [address] [address] Jul, [facility] [address] [place] [id number] [address] [place] [phone] Jul, [facility] [address] [place] [id number] [address] [place] [phone] Jul, Upper respiratory infection J06.9 [place] [address] [place] [id number] [address] [place] [phone] Jul, Depressive disorder, not els ewhere classified F32.9 [facility] [address] [facility] [id number] [address] [place] [address] Jul, Chronic pain 338.29 [place] [address] [address] Jul, Chronic pain G89.29 [place] [address] [address] Jun, Poison josep L23.7 [place] [address] [place] [id number] [address] [place] [address] Jun, Allergic contact dermatitis due to plants, except food L23.7 [place] [address] [address] Jun, Essential hypertension I10 ; Chronic pain G89.29 ; GERD (gastroesophageal reflux disease) K21.9 and Numbness and tingling in hands R20.2 [place] [address] [place] [id number] [address] [place] [phone] May, [place] [address] [place] [id number] [address] [place] [phone] Apr, [place] [address] [address] Mar, [place] [address] [place] [id number] [address] [place] [address] Feb, Abdominal pain, left lateral 789.09 and Constipation 564.00 [place] [address] [address] Feb, Depressive disorder, not els ewhere classified 311 and No condition on Dike II V71.09 [facility] [address] [address] Feb, Spider bite 989.5 and Depres homar 311 [facility] [address] [address] Feb, [facility] [address] [address] Feb, Chronic pain 338.29 ; Arthro zonia 716.90 and GERD (gastroesophageal reflux disease) 530.81 [facility] [address] [address] Jan, Insect bites 919.4 [place] [address] [address] Jan, [facility] [address] [address] December, Skin infection, bacterial 68 6.9 ; Conjunctivitis 372.30 and Insect bites 919.4 [facility] [address] [place] [id number] [address] [place] [address] December, Chronic pain 338.29 ; Arthro zonia 716.90 ; Skin infection, bacterial 686.9 and Conjunctivitis 372.30 [facility] [address] [place] [id number] [address] [place] [address] December, [facility] [address] [place] [id number] [address] [place] [phone] Nov, [facility] [address] [address] Nov, [facility] [address] [place] [id number] [address] [place] [address] Oct, [facility] [address] [place] [id number] [address] [place] [phone] Oct, [facility] [address] [id number] [address] [place] [address], [place] [address] Sep, [facility] [address] [id number] [address] [place] [address], [place] [address] Sep, [facility] [address] [id number] [address] [place] [address], [place] [address] Aug, [facility] [address] [id number] [address] [place] [address], [place] [address] Aug, [facility] [address] [id number] [address] [place] [address], [place] [address] Aug, [facility] [address] [id number] [address] [place] [address], [place] [address] Aug, [facility] [address] [id number] [address] [place] [address], [place] [address] Jul, [facility] [address] [id number] [address] [place] [address], [place] [address] Jul, [facility] [address] [id number] [address] [place] [address], [place] [address] Jul, [facility] [address] [id number] [address] [place] [address], [place] [address] Jul, [facility] [address] [id number] [address] [place] [address], [place] [address] Jul, [facility] [address] [id number] [address] [place] [address], [place] [address] Jul, [facility] [address] [id number] [address] [place] [address], [place] [address] Jul, [facility] [address] [id number] [address] [place] [address], [place] [address] Jul, [facility] [address] [id number] [address] [place] [address], [place] [address] Jul, [facility] [address] [id number] [address] [place] [address], [place] [address] Jun, [facility] [address] [id number] [address] [place] [address], [place] [address] Jun, [facility] [address] [id number] [address] [place] [address], [place] [address] Jun, [facility] [address] [id number] [address] [place] [address], [place] [address] Jun, [facility] [address] [id number] [address] [place] [address], [place] [address] Jun, [facility] [address] [id number] [address] [place] [address], [place] [address] Jun, [facility] [address] [id number] [address] [place] [address], [place] [address] Jun, [facility] [address] [id number] [address] [place] [address], [place] [address] Jun, [facility] [address] [id number] [address] [place] [address], [place] [address] May, [facility] [address] [id number] [address] [place] [address], [place] [address] May, [facility] [address] [id number] [address] [place] [address], [place] [address] May, [facility] [address] [id number] [address] [place] [address], [place] [address] May, [facility] [address] [id number] [address] [place] [address], [place] [address] May, [facility] [address] [id number] [address] [place] [address], [place] [address] Apr, [facility] [address] [id number] [address] [place] [address], [place] [address] Apr, [facility] [address] [id number] [address] [place] [address], [place] [address] Apr, 2013 [facility] [address] [id number] [facility] [place] [address] Apr, 2013 [facility] [address] [id number] [address] [place] [address], [place] [address] Apr, [facility] [address] [id number] [address] [place] [address], [place] [address] Apr, 2013 [facility] [address] [id number] [address] [place] [address], [place] [id number] Apr, 2013 [facility] [address] [id number] [address] [place] [address], [place] [address] Apr, [facility] [address] [id number] [address] [place] [address], [place] [address] Apr, [facility] [address] [id number] [address] [place] [address], [place] [address] Apr, [facility] [address] [id number] [address] [place] [address], [place] [address] Mar, [facility] [address] [id number] [address] [place] [address], [place] [address] Mar, [facility] [address] [id number] [address] [place] [address], [place] [id number] Mar, [facility] [address] [id number] [address] [place] [address], [place] [id number] Mar, [facility] [address] [id number] [address] [place] [address], [place] [address] Mar, [facility] [address] [id number] [address] [place] [address], [place] [address] Mar, [facility] [address] [id number] [address] [place] [address], [place] [address] Feb, [facility] [address] [id number] [address] [place] [address], [place] [address] Feb, [facility] [address] [id number] [address] [place] [address], [place] [address] Jan, [facility] [address] [id number] [address] [place] [address], [place] [address] Jan, [facility] [address] [id number] [address] [place] [address], [place] [address] Jan, [facility] [address] [id number] [address] [place] [address], [place] [address] Jan, [facility] [address] [id number] [address] [place] [address], [place] [address] December, [facility] [address] [id number] [address] [place] [address], [place] [address] December, [facility] [address] [id number] [address] [place] [address], [place] [id number] December, [facility] [facility] [address] [id number] [address] [place] [address], [place] [address] December, [facility] [address] [id number] [address] [place] [address], [place] [address] December, [facility] [address] [id number] [address] [place] [address], [place] [address] December, [facility] [address] [id number] [address] [place] [address], [place] [address] December, [facility] [address] [id number] [address] [place] [address], [place] [address] December, [facility] [address] [id number] [address] [place] [address], [place] [address] December, [facility] [address] [id number] [address] [place] [address], [place] [address] Nov, [facility] [address] [id number] [address] [place] [address], [place] [address] Nov, [facility] [address] [id number] [address] [place] [address], [place] [address] Nov, [facility] [address] [id number] [address] [place] [address], [place] [address] Nov, [facility] [address] [id number] [address] [place] [address], [place] [address] Nov, [facility] [address] [id number] [address] [place] [address], [place] [address] Nov, [facility] [address] [id number] [address] [place] [address], [place] [address] Nov, [facility] [address] [id number] [address] [place] [address], [place] [address] Nov, [facility] [address] [id number] [address] [place] [address], [place] [address] Nov, [facility] [address] [id number] [address] [place] [address], [place] [address] Nov, [facility] [address] [id number] [address] [place] [address], [place] [address] Oct, [facility] [address] [id number] [address] [place] [address], [place] [address] Oct, [facility] [address] [id number] [address] [place] [address], [place] [address] Sep, [facility] [address] [id number] [address] [place] [address], [place] [address] Sep, [facility] [address] [id number] [address] [place] [address], [place] [address] Aug, [facility] [address] [id number] [address] [place] [address], [place] [address] Aug, [facility] [address] [id number] [address] [place] [address], [place] [address] Aug, [facility] [address] [id number] [address] [place] [address], [place] [address] Aug, [facility] [address] [id number] [address] [place] [address], [place] [address] Jul, [facility] [address] [id number] [address] [place] [address], [place] [address] Jul, [facility] [address] [id number] [address] [place] [address], [place] [address] Jul, [facility] [address] [id number] [address] [place] [address], [place] [address] Jul, [facility] [address] [id number] [address] [place] [address], [place] [address] Jun, [facility] [address] [id number] [address] [place] [address], [place] [address] Jun, [facility] [address] [id number] [address] [place] [address], [place] [address] May, [facility] [address] [id number] [address] [place] [address], [place] [id number] May, [facility] [address] [id number] [address] [place] [address], [place] [address] May, [facility] [address] [id number] [address] [place] [address], [place] [address] May, [facility] [address] [id number] [address] [place] [address], [place] [address] May, [facility] [address] [id number] [address] [place] [address], [place] [address] May, [facility] [address] [id number] [address] [place] [address], [place] [id number] 30 Apr, 2013 [facility] [address] [id number] [address] [place] [address], [place] [id number] 23 Apr, 2013 [facility] [address] [id number] [address] [place] [address], [place] [address] Apr, [facility] [address] [id number] [address] [place] [address], [place] [address] Feb, [facility] [address] [id number] [facility] [place] [address] 27 Jan, 2013 [facility] [address] [id number] [address] [place] [address], [place] [address] 18 Jan, 2013 [facility] [address] [id number] [address] [place] [address], [place] [address] 17 Jan, 2013 [facility] [address] [id number] [address] [place] [address], [place] [address] 14 Jan, 2013 [facility] [address] [id number] [address] [place] [address], [place] [address] 30 Dec, 2012 [facility] [address] [id number] [address] [place] [address], [place] [address] December, [facility] [address] [id number] [address] [place] [address], [place] [address] 24 Nov, 2012 [facility] [address] [id number] [address] [place] [address], [place] [address] 23 Nov, 2012 [facility] [address] [id number] [address] [place] [address], [place] [address] Nov, [facility] [address] [id number] [address] [place] [address], [place] [address] Nov, [facility] [address] [id number] [address] [place] [address], [place] [address] 08 Nov, 2012 [facility] [address] [id number] [address] [place] [address], [place] [address] 08 Nov, 2012 [facility] [address] [id number] [address] [place] [address], [place] [address] 03 Nov, 2012 [facility] [address] [id number] [address] [place] [address], [place] [address] 27 Oct, 2012 [facility] [address] [id number] [address] [place] [address], [place] [address] 18 Oct, 2012 [facility] [address] [id number] [address] [place] [address], [place] [address] 14 Oct, 2012 [facility] [address] [id number] [facility] [place] [address] 13 Oct, 2012 [facility] [address] [id number] [address] [place] [address], [place] [address] 12 Oct, 2012 [facility] [address] [id number] [address] [place] [address], [place] [address] 11 Oct, 2012 [facility] [address] [id number] [address] [place] [address], [place] [id number] 08 Oct, 2012 [facility] [address] [id number] [address] [place] [address], [place] [address] 20 Sep, 2012 [facility] [address] [id number] [address] [place] [address], [place] [address] Sep, [facility] [address] [id number] [address] [place] [address], [place] [address] Aug, [facility] [address] [id number] [address] [place] [address], [place] [address] Aug, [facility] [address] [id number] [address] [place] [address], [place] [address] Jul, [facility] [address] [id number] [address] [place] [address], [place] [address] Jul, [facility] [address] [id number] [address] [place] [address], [place] [address] Jul, [facility] [address] [id number] [address] [place] [address], [place] [address] Jul, [facility] [address] [id number] [address] [place] [address], [place] [address] Jul, [facility] [address] [id number] [address] [place] [address], [place] [address] Jul, [facility] [address] [id number] [address] [place] [address], [place] [address] Jul, [facility] [address] [id number] [address] [place] [id number] Jul, [facility] [address] [facility] [id number] [address] [place] [id number] Jun, [facility] [address] [facility] [id number] [address] [place] [id number] Jun, IMMUNIZATIONS No Known Immunizations SOCIAL HISTORY [...]
--- OUTSIDE RECORDS SUMMARY | 2020-02-11 03:16 | XMS REPORT ---
Author Author Madeline CHIANG [facility] Address [address] [place] [address] Care Team Providers Care Yoker Machine Operator Name Role Phone KWESIKennedy DANG Unavailable PROBLEMS Type Condition ICD9-CM Code LIR55-WO Code Onset Dates Condition S tatus SNOMED Code Problem GERD (gastroesophageal reflux disease) K21.9 Active 465041525 Problem Chronic pain G89.29 Active 5037606 1 Problem History of abnormal cervical Pap smear Z87.898 Active 327094722 Problem Morbid obesity due to excess calories E66.01 Active 531928438 Problem Numbness and tingling in hands R20.2 Active 404384265 Problem Chronic recurrent major depressive disorder F33.9 Active 0391755 Problem Pre-diabetes R73.09 Active 7004589 02 Problem Stasis dermatitis of both legs I87.2 Active 50968376 Problem BMI 45.0-49.9, adult Z68.42 Active 770094053 Problem Essential hypertension I10 Active 72843771 Problem Primary insomnia F51.01 Active 397 2004 ALLERGIES No Information ENCOUNTERS Encounter Location Date Diagnosis [facility] [address] [facility] [id number] [address] [place] [address] Apr, [facility] [address] [place] [id number] [address] [place] [address] Mar, Chronic pain G89.29 and BMI 45.0-49.9, adult Z68.42 [facility] [address] [facility] [id number] [address] [place] [address] Mar, Morbid obesity E66.01 ; Location Manager david recurrent major depressive disorder F33.9 ; Morbid obesity due to excess calories E66.01 and High risk medication use Z79.899 [facility] [address] [place] [id number] [address] [place] [address] Mar, Chronic pain G89.29 and BMI 45.0-49.9, adult Z68.42 [facility] [address] [place] [id number] [address] [place] [address] Feb, [facility] [address] [facility] [id number] [address] [place] [address] Feb, Chronic pain G89.29 and BMI 45.0-49.9, adult Z68.42 [facility] [address] [place] [id number] [address] [place] [address] Jan, [place] [address] [place] [id number] [address] [place] [address] Jan, Chronic pain G89.29 and BMI 45.0-49.9, adult Z68.42 [place] [address] [place] [id number] [address] [place] [address] Jan, [facility] [address] [place] [id number] [address] [place] [address] December, Chronic pain G89.29 and BMI 45.0-49.9, adult Z68.42 [place] [address] [place] [id number] [address] [place] [address] Nov, Morbid obesity E66.01 and Ce llulitis of leg, left L03.116 [place] [address] [place] [id number] [address] [place] [address] Nov, Cellulitis of left lower ext remity L03.116 and Morbid obesity E66.01 [facility] [address] [facility] [id number] [address] [place] [address] Nov, [place] [address] [place] [id number] [address] [place] [address] Nov, Morbid obesity E66.01 and Ce llulitis of left lower extremity L03.116 [facility] [address] [place] [id number] [address] [place] [address] Nov, Chronic pain G89.29 and BMI 45.0-49.9, adult Z68.42 [place] [address] [place] [id number] [place] [address] Oct, BMI 45.0-49.9, adult Z68.42 and Chronic pain G89.29 [place] [address] [place] [id number] [address] [place] [address] 14 Sep, 2018 BMI 45.0-49.9, adult Z68.42 and Chronic pain G89.29 [place] [address] [place] [id number] [address] [place] [address] 05 Sep, 2018 BMI 45.0-49.9, adult Z68.42 and Essential hypertension I10 [place] [address] [place] [id number] [place] [address] Aug, BMI 45.0-49.9, adult Z68.42 ; Chronic pain G89.29 ; Essential hypertension I10 and Primary insomnia F51.01 [place] [address] [place] [id number] [address] [place] [address] Aug, Chronic pain G89.29 [place] [address] [place] [id number] [address] [place] [address] Jul, Chronic pain G89.29 [place] [address] [place] [id number] [address] [place] [address] Jun, Chronic pain G89.29 [place] [address] [place] [id number] [address] [place] [address] May, Chronic pain G89.29 [place] [address] [place] [id number] [address] [place] [address] May, BMI 40.0-44.9, adult Z68.41 ; Other chronic pain G89.29 ; Pain in right hip M25.551 and Acute pain of left knee M25.562 [place] [address] [place] [id number] [address] [place] [address] May, Chronic pain G89.29 [facility] [address] [id number] [address] [place] [address] Apr, Chronic pain G89.29 [facility] [address] [facility] [id number] [address] [place] [address] Mar, Poison josep L23.7 [facility] [address] [facility] [id number] [address] [place] [address] Mar, Chronic pain G89.29 [facility] [address] [id number] [address] [place] [address] Feb, Chronic pain G89.29 [facility] [address] [facility] [id number] [address] [place] [address] Feb, Poison josep L23.7 [facility] [address] [facility] [id number] [address] [place] [address] Jan, Chronic pain G89.29 [facility] [address] [facility] [id number] [address] [place] [address] December, Chronic pain G89.29 [facility] [address] [facility] [id number] [address] [place] [address] Nov, Long-term use of high-risk m edication Z79.899 [facility] [address] [facility] [id number] [address] [place] [address] Nov, Chronic pain G89.29 [facility] [address] [facility] [id number] [address] [place] [address] Oct, Chronic pain G89.29 ; Pre-di abetes R73.09 ; Long-term use of high- risk medication Z79.899 ; Allergic rhinitis, unspecified seasonality, unspecified trigger J30.9 ; BMI 45.0-49.9, adult Z68.42 and Essential hypertension I10 [facility] [address] [facility] [id number] [address] [place] [address] Oct, Chronic pain G89.29 [facility] [address] [facility] [id number] [address] [place] [address] Sep, Chronic pain G89.29 [facility] [address] [facility] [id number] [address] [place] [address] Aug, Chronic pain G89.29 [facility] [address] [place] [id number] [address] [place] [address] Jul, [facility] [address] [place] [id number] [address] [place] [address] Jul, [facility] [address] [place] [id number] [place] [address] Jun, Chronic pain G89.29 ; BMI 45 .0-49.9, adult Z68.42 ; Pre-diabetes R73.09 ; Essential hypertension I10 ; GERD (gastroesophageal reflux disease) K21.9 ; Yeast dermatitis B37.2 ; Dysuria R30.0 ; Acute non-recurrent maxillary sinusitis J01.00 and Acute cystitis with hematuria N30.01 [facility] [address] [place] [id number] [address] [place] [address] Jun, Chronic pain G89.29 [facility] [address] [place] [id number] [address] [place] [address] Jun, Acute non-recurrent maxillar y sinusitis J01.00 and BMI 45.0-49.9, adult Z68.42 [facility] [address] [place] [id number] [address] [place] [address] May, [facility] [address] [place] [id number] [address] [place] [address] May, Chronic pain G89.29 [facility] [address] [place] [id number] [address] [place] [address] May, [facility] [address] [place] [id number] [address] [place] [address] Apr, Chronic pain G89.29 [facility] [address] [facility] [id number] [address] [place] [address] Mar, [place] [address] [place] [id number] [address] [place] [address] Mar, Essential hypertension I10 a nd Pre-diabetes R73.09 [place] [address] [place] [id number] [address] [place] [address] 15 Mar, 2017 Chronic pain G89.29 ; Essent ial hypertension I10 ; Depressive disorder, not elsewhere classified F32.9 ; GERD (gastroesophageal reflux disease) K21.9 ; Pre-diabetes R73.09 ; Stasis dermatitis of both legs I87.2 and Acute non-recurrent maxillary sinusitis J01.00 [place] [address] [facility] [id number] [address] [place] [address] 11 Mar, 2017 Chronic pain G89.29 [place] [id number] [place] [address] Mar, Achilles tendinitis of right lower extremity M76.61 and Tinea corporis B35.4 [place] [address] [facility] [id number] [address] [place] [address] 17 Feb, 2017 Yeast dermatitis B37.2 [place] [address] [facility] [id number] [address] [place] [address] 14 Feb, 2017 Candidal intertrigo B37.2 an d Acute right ankle pain M25.571 [place] [address] [facility] [id number] [address] [place] [address] Feb, Chronic pain G89.29 [place] [address] [facility] [id number] [address] [place] [address] Jan, [place] [address] [place] [id number] [address] [place] [address] Jan, Chronic pain G89.29 [place] [address] [place] [id number] [address] [place] [address] December, Chronic pain G89.29 ; Essent ial hypertension I10 ; Depressive disorder, not elsewhere classified F32.9 ; GERD (gastroesophageal reflux disease) K21.9 ; Pre-diabetes R73.09 ; Screening breast examination Z12.39 ; Stasis dermatitis of both legs I87.2 and Yeast dermatitis B37.2 [place] [address] [facility] [id number] [address] [place] [address] Nov, Chronic pain G89.29 [place] [address] [facility] [id number] [address] [place] [address] Nov, Cellulitis of left lower ext remity L03.116 [place] [address] [facility] [id number] [address] [place] [address] Nov, Cellulitis of left lower ext remity L03.116 [place] [address] [facility] [id number] [address] [place] [address] Oct, Yeast dermatitis B37.2 [place] [address] [facility] [id number] [address] [place] [phone] Oct, Chronic pain G89.29 [place] [address] [facility] [id number] [address] [place] [address] Sep, Chronic pain G89.29 ; Essent ial hypertension I10 ; Depressive disorder, not elsewhere classified F32.9 and GERD (gastroesophageal reflux disease) K21.9 [place] [address] [facility] [id number] [address] [place] [address] Aug, Chronic pain G89.29 [place] [address] [facility] [id number] [address] [place] [address] Aug, Cough R05 ; Rash R21 and Vinay h and nonspecific skin eruption R21 [place] [address] [facility] [id number] [address] [place] [address] Jul, Chronic pain G89.29 [place] [address] [place] [id number] [address] [place] [address] Jun, Chronic pain G89.29 ; Bronch itis J40 ; Essential hypertension I10 ; Depressive disorder, not elsewhere classified F32.9 ; GERD (gastroesophageal reflux disease) K21.9 and History of long-term use of multiple prescription drugs Z92.29 [place] [address] [address] Jun, Bronchitis J40 ; Chills R68. 83 and Sore throat J02.9 [place] [address] [address] May, [place] [address] [address] Apr, [facility] [address] [address] Apr, Acute mucoid otitis media of both ears H65.113 [place] [address] [address] Apr, Yeast dermatitis B37.2 and H ematuria R31.9 [place] [address] [address] Mar, [place] [address] [address] Mar, [place] [address] [address] Feb, Left anterior knee pain M25. 562 [place] [address] [address] Feb, Chronic pain G89.29 ; Essent ial hypertension I10 ; Depressive disorder, not elsewhere classified F32.9 ; GERD (gastroesophageal reflux disease) K21.9 and History of long-term use of multiple prescription drugs Z92.29 [place] [address] [address] Jan, [place] [address] [address] Jan, Well woman exam Z01.419 ; BM I 45.0-49.9, adult Z68.42 ; Family history of diabetes mellitus Z83.3 and Chronic pain G89.29 [place] [address] [address] December, Chronic pain G89.29 ; Essent ial hypertension I10 ; Depressive disorder, not elsewhere classified F32.9 ; GERD (gastroesophageal reflux disease) K21.9 ; 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 ; History of long-term use of multiple prescription drugs Z92.29 and Obesity E66.9 [place] [address] [address] Oct, [place] [address] [address] Oct, Well woman exam Z01.419 ; BM [...] smear Z12.4 and No natural teeth K00.0 [place] [address] [address] Oct, [address] [address] Sep, Chronic pain G89.29 ; Essent ial hypertension I10 ; GERD (gastroesophageal reflux disease) K21.9 ; 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 ; Skin infection L08.9 and History of long-term use of multiple prescription drugs Z92.29 [place] [address] [address] Aug, [place] [address] [address] Jul, [facility] [address] [place] [id number] [address] [place] [address] Jul, [facility] [address] [place] [id number] [address] [place] [address] Jul, Upper respiratory infection J06.9 [place] [address] [place] [id number] [address] [place] [address] Jul, Depressive disorder, not els ewhere classified F32.9 [facility] [address] [facility] [id number] [address] [place] [address] Jul, Chronic pain 338.29 [place] [address] [address] Jul, Chronic pain G89.29 [place] [address] [address] Jun, Poison josep L23.7 [place] [address] [place] [id number] [address] [place] [address] Jun, Allergic contact dermatitis due to plants, except food L23.7 [place] [address] [address] Jun, Essential hypertension I10 ; Chronic pain G89.29 ; GERD (gastroesophageal reflux disease) K21.9 and Numbness and tingling in hands R20.2 [place] [address] [place] [id number] [address] [place] [address] May, [place] [address] [place] [id number] [address] [place] [address] Apr, [place] [address] [address] Mar, [place] [address] [place] [id number] [address] [place] [address] Feb, Abdominal pain, left lateral 789.09 and Constipation 564.00 [place] [address] [address] Feb, Depressive disorder, not els ewhere classified 311 and No condition on Wheeler II V71.09 [facility] [address] [address] Feb, Spider bite 989.5 and Depres homar 311 [facility] [address] [address] Feb, [facility] [address] [address] Feb, Chronic pain 338.29 ; Arthro zonia 716.90 and GERD (gastroesophageal reflux disease) 530.81 [facility] [address] [address] Jan, Insect bites 919.4 [place] [address] [address] Jan, [facility] [address] [address] December, Skin infection, bacterial 68 6.9 ; Conjunctivitis 372.30 and Insect bites 919.4 [facility] [address] [place] [id number] [address] [place] [address] December, Chronic pain 338.29 ; Arthro zonia 716.90 ; Skin infection, bacterial 686.9 and Conjunctivitis 372.30 [facility] [address] [place] [id number] [address] [place] [address] December, [facility] [address] [place] [id number] [address] [place] [address] Nov, [facility] [address] [address] Nov, [facility] [address] [place] [id number] [address] [place] [address] Oct, [facility] [address] [place] [id number] [address] [place] [address] Oct, [facility] [address] [id number] [address] [place] [address], [place] [address] Sep, [facility] [address] [id number] [address] [place] [address], [place] [address] Sep, [facility] [address] [id number] [address] [place] [address], [place] [address] Aug, [facility] [address] [id number] [address] [place] [address], [place] [address] Aug, [facility] [address] [id number] [address] [place] [address], [place] [address] Aug, [facility] [address] [id number] [address] [place] [address], [place] [address] Aug, [facility] [address] [id number] [address] [place] [address], [place] [address] Jul, [facility] [address] [id number] [address] [place] [address], [place] [address] Jul, [facility] [address] [id number] [address] [place] [address], [place] [address] Jul, [facility] [address] [id number] [address] [place] [address], [place] [address] Jul, [facility] [address] [id number] [address] [place] [address], [place] [address] Jul, [facility] [address] [id number] [address] [place] [address], [place] [address] Jul, [facility] [address] [id number] [address] [place] [address], [place] [address] Jul, [facility] [address] [id number] [address] [place] [address], [place] [address] Jul, [facility] [address] [id number] [address] [place] [address], [place] [address] Jul, [facility] [address] [id number] [address] [place] [address], [place] [address] Jun, [facility] [address] [id number] [address] [place] [address], [place] [address] Jun, [facility] [address] [id number] [address] [place] [address], [place] [address] Jun, [facility] [address] [id number] [address] [place] [address], [place] [address] Jun, [facility] [address] [id number] [address] [place] [address], [place] [address] Jun, [facility] [address] [id number] [address] [place] [address], [place] [address] Jun, [facility] [address] [id number] [address] [place] [address], [place] [address] Jun, [facility] [address] [id number] [address] [place] [address], [place] [address] Jun, [facility] [address] [id number] [address] [place] [address], [place] [address] May, [facility] [address] [id number] [address] [place] [address], [place] [address] May, [facility] [address] [id number] [address] [place] [address], [place] [address] May, [facility] [address] [id number] [address] [place] [address], [place] [address] May, [facility] [address] [id number] [address] [place] [address], [place] [address] May, [facility] [address] [id number] [address] [place] [address], [place] [address] Apr, [facility] [address] [id number] [address] [place] [address], [place] [address] Apr, [facility] [address] [id number] [address] [place] [address], [place] [address] Apr, 2013 [facility] [address] [id number] [facility] [place] [address] Apr, 2013 [facility] [address] [id number] [address] [place] [address], [place] [address] Apr, [facility] [address] [id number] [address] [place] [address], [place] [address] Apr, 2013 [facility] [address] [id number] [address] [place] [address], [place] [address] Apr, 2013 [facility] [address] [id number] [address] [place] [address], [place] [address] Apr, [facility] [address] [id number] [address] [place] [address], [place] [address] Apr, [facility] [address] [id number] [address] [place] [address], [place] [address] Apr, [facility] [address] [id number] [address] [place] [address], [place] [address] Mar, [facility] [address] [id number] [address] [place] [address], [place] [address] Mar, [facility] [address] [id number] [address] [place] [address], [place] [address] Mar, [facility] [address] [id number] [address] [place] [address], [place] [address] Mar, [facility] [address] [id number] [address] [place] [address], [place] [address] Mar, [facility] [address] [id number] [address] [place] [address], [place] [address] Mar, [facility] [address] [id number] [address] [place] [address], [place] [address] Feb, [facility] [address] [id number] [address] [place] [address], [place] [address] Feb, [facility] [address] [id number] [address] [place] [address], [place] [address] Jan, [facility] [address] [id number] [address] [place] [address], [place] [address] Jan, [facility] [address] [id number] [address] [place] [address], [place] [address] Jan, [facility] [address] [id number] [address] [place] [address], [place] [address] Jan, [facility] [address] [id number] [address] [place] [address], [place] [address] December, [facility] [address] [id number] [address] [place] [address], [place] [address] December, [facility] [address] [id number] [address] [place] [address], [place] [address] December, [facility] [address] [id number] [address] [place] [address], [place] [address] December, [facility] [address] [id number] [address] [place] [address], [place] [address] December, [facility] [address] [id number] [address] [place] [address], [place] [address] December, [facility] [address] [id number] [address] [place] [address], [place] [address] December, [facility] [address] [id number] [address] [place] [address], [place] [address] December, [facility] [address] [id number] [address] [place] [address], [place] [address] December, [facility] [address] [id number] [address] [place] [address], [place] [address] Nov, [facility] [address] [id number] [address] [place] [address], [place] [address] Nov, [facility] [address] [id number] [address] [place] [address], [place] [address] Nov, [facility] [address] [id number] [address] [place] [address], [place] [address] Nov, [facility] [address] [id number] [address] [place] [address], [place] [address] Nov, [facility] [address] [id number] [address] [place] [address], [place] [address] Nov, [facility] [address] [id number] [address] [place] [address], [place] [address] Nov, [facility] [address] [id number] [address] [place] [address], [place] [address] Nov, [facility] [address] [id number] [address] [place] [address], [place] [address] Nov, [facility] [address] [id number] [address] [place] [address], [place] [address] Nov, [facility] [address] [id number] [address] [place] [address], [place] [address] Oct, [facility] [address] [id number] [address] [place] [address], [place] [address] Oct, [facility] [address] [id number] [address] [place] [address], [place] [address] Sep, [facility] [address] [id number] [address] [place] [address], [place] [address] Sep, [facility] [address] [id number] [address] [place] [address], [place] [address] Aug, [facility] [address] [id number] [address] [place] [address], [place] [address] Aug, [facility] [address] [id number] [address] [place] [address], [place] [address] Aug, [facility] [address] [id number] [address] [place] [address], [place] [address] Aug, [facility] [address] [id number] [address] [place] [address], [place] [address] Jul, [facility] [address] [id number] [address] [place] [address], [place] [address] Jul, [facility] [address] [id number] [address] [place] [address], [place] [address] Jul, [facility] [address] [id number] [address] [place] [address], [place] [address] Jul, [facility] [address] [id number] [address] [place] [address], [place] [address] Jun, [facility] [address] [id number] [address] [place] [address], [place] [address] Jun, [facility] [address] [id number] [address] [place] [address], [place] [address] May, [facility] [address] [id number] [address] [place] [address], [place] [address] May, [facility] [address] [id number] [address] [place] [address], [place] [address] May, [facility] [address] [id number] [address] [place] [address], [place] [address] May, [facility] [address] [id number] [address] [place] [address], [place] [address] May, [facility] [address] [id number] [address] [place] [address], [place] [address] May, [facility] [address] [id number] [address] [place] [address], [place] [address] 30 Apr, 2013 [facility] [address] [id number] [address] [place] [address], [place] [address] 23 Apr, 2013 [facility] [address] [id number] [address] [place] [address], [place] [address] Apr, [facility] [address] [id number] [address] [place] [address], [place] [address] Feb, [facility] [address] [id number] [facility] [place] [address] 27 Jan, [address] [facility] [address] [id number] [address] [place] [address], [place] [address] 18 Jan, 2013 [facility] [address] [id number] [address] [place] [address], [place] [address] 17 Jan, [address] [facility] [address] [id number] [address] [place] [address], [place] [address] 14 Jan, [address] [facility] [address] [id number] [address] [place] [address], [place] [address] 30 Dec, 2012 [facility] [address] [id number] [address] [place] [address], [place] [address] December, [facility] [address] [id number] [address] [place] [address], [place] [address] 24 Nov, 2012 [facility] [address] [id number] [address] [place] [address], [place] [address] 23 Nov, 2012 [facility] [address] [id number] [address] [place] [address], [place] [address] Nov, [facility] [address] [id number] [address] [place] [address], [place] [address] Nov, [facility] [address] [id number] [address] [place] [address], [place] [address] 08 Nov, [address] [facility] [address] [id number] [address] [place] [address], [place] [address] 08 Nov, 2012 [facility] [address] [id number] [address] [place] [address], [place] [address] 03 Nov, 2012 [facility] [address] [id number] [address] [place] [address], [place] [address] 27 Oct, 2012 [facility] [address] [id number] [address] [place] [address], [place] [address] 18 Oct, [address] [facility] [address] [id number] [address] [place] [address], [place] [address] 14 Oct, 2012 [facility] [address] [id number] [facility] [place] [address] 13 Oct, 2012 [facility] [address] [id number] [address] [place] [address], [place] [address] 12 Oct, 2012 [facility] [address] [id number] [address] [place] [address], [place] [address] 11 Oct, 2012 [facility] [address] [id number] [address] [place] [address], [place] [address] 08 Oct, 2012 [facility] [address] [id number] [address] [place] [address], [place] [address] 20 Sep, 2012 [facility] [address] [id number] [address] [place] [address], [place] [address] Sep, [facility] [address] [id number] [address] [place] [address], [place] [address] Aug, [facility] [address] [id number] [address] [place] [address], [place] [address] Aug, [facility] [address] [id number] [address] [place] [address], [place] [address] Jul, [facility] [address] [id number] [address] [place] [address], [place] [address] Jul, [facility] [address] [id number] [address] [place] [address], [place] [address] Jul, [facility] [address] [id number] [address] [place] [address], [place] [address] Jul, [facility] [address] [id number] [address] [place] [address], [place] [address] Jul, [facility] [address] [id number] [address] [place] [address], [place] [address] Jul, [facility] [address] [id number] [address] [place] [address], [place] [address] Jul, [facility] [address] [id number] [address] [place] [address] Jul, [facility] [address] [facility] [id number] [address] [place] [address] Jun, [facility] [address] [facility] [id number] [address] [place] [address] Jun, IMMUNIZATIONS No Known Immunizations SOCIAL HISTORY Never Assessed REASON FOR VISIT PLAN OF CARE VITAL SIGNS MEDICATIONS Unknown Medications RESULTS No Results PROCEDURES Procedure Date Ordered Result Body Site VISIT May 07, 2014 INSTRUCTIONS MEDICATIONS ADMINISTERED No Known Medications [...] -- total 11/2012 Hospitalization History ER- in [place] due to left knee 8
--- OUTSIDE RECORDS SUMMARY | 2020-02-11 03:16 | XMS REPORT ---
Author Author Madeline CHIANG [facility] Address [address] [place] [address] Care Team Providers Care Rn Urology Name Role Phone KWESIKennedy DANG Unavailable PROBLEMS Type Condition ICD9-CM Code OZK01-FL Code Onset Dates Condition S tatus SNOMED Code Problem GERD (gastroesophageal reflux disease) K21.9 Active 569765072 Problem Numbness and tingling in hands R20.2 Active 318748432 Problem History of abnormal cervical Pap smear Z87.898 Active 500530084 Problem Chronic recurrent major depressive disorder F33.9 Active 5878647 Problem Chronic pain G89.29 Active 9506423 1 Problem Morbid obesity due to excess calories E66.01 Active 151861709 Problem Pre-diabetes R73.09 Active 1818592 02 Problem Stasis dermatitis of both legs I87.2 Active 99260348 Problem BMI 45.0-49.9, adult Z68.42 Active 538084777 Problem Essential hypertension I10 Active 17548437 Problem Primary insomnia F51.01 Active 397 2004 ALLERGIES No Information ENCOUNTERS Encounter Location Date Diagnosis [facility] [address] [facility] [id number] [address] [place] [id number] Apr, [facility] [address] [place] [id number] [address] [place] [address] Mar, Chronic pain G89.29 and BMI 45.0-49.9, adult Z68.42 [facility] [address] [facility] [id number] [address] [place] [address] Mar, Morbid obesity E66.01 ; 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 ; Morbid obesity due to excess calories E66.01 and High risk medication use Z79.899 [facility] [address] [place] [id number] [address] [place] [address] Mar, Chronic pain G89.29 and BMI 45.0-49.9, adult Z68.42 [facility] [address] [place] [id number] [address] [place] [address] Feb, [facility] [address] [facility] [id number] [address] [place] [address] Feb, Chronic pain G89.29 and BMI 45.0-49.9, adult Z68.42 [facility] [address] [place] [id number] [address] [place] [address] Jan, [place] [address] [place] [id number] [address] [place] [address] Jan, Chronic pain G89.29 and BMI 45.0-49.9, adult Z68.42 [place] [address] [place] [id number] [address] [place] [address] Jan, [facility] [address] [place] [id number] [address] [place] [address] December, Chronic pain G89.29 and BMI 45.0-49.9, adult Z68.42 [place] [address] [place] [id number] [address] [place] [address] Nov, Morbid obesity E66.01 and Ce llulitis of leg, left L03.116 [place] [address] [place] [id number] [address] [place] [address] Nov, Cellulitis of left lower ext remity L03.116 and Morbid obesity E66.01 [facility] [address] [facility] [id number] [address] [place] [address] Nov, [place] [address] [place] [id number] [address] [place] [address] Nov, Morbid obesity E66.01 and Ce llulitis of left lower extremity L03.116 [facility] [address] [place] [id number] [address] [place] [address] Nov, Chronic pain G89.29 and BMI 45.0-49.9, adult Z68.42 [place] [address] [place] [id number] [place] [address] Oct, BMI 45.0-49.9, adult Z68.42 and Chronic pain G89.29 [place] [address] [place] [id number] [address] [place] [address] 14 Sep, 2018 BMI 45.0-49.9, adult Z68.42 and Chronic pain G89.29 [place] [address] [place] [id number] [address] [place] [address] 05 Sep, 2018 BMI 45.0-49.9, adult Z68.42 and Essential hypertension I10 [place] [address] [place] [id number] [place] [address] Aug, BMI 45.0-49.9, adult Z68.42 ; Chronic pain G89.29 ; Essential hypertension I10 and Primary insomnia F51.01 [place] [address] [place] [id number] [address] [place] [address] Aug, Chronic pain G89.29 [place] [address] [place] [id number] [address] [place] [address] Jul, Chronic pain G89.29 [place] [address] [place] [id number] [address] [place] [address] Jun, Chronic pain G89.29 [place] [address] [place] [id number] [address] [place] [address] May, Chronic pain G89.29 [place] [address] [place] [id number] [address] [place] [address] May, BMI 40.0-44.9, adult Z68.41 ; Other chronic pain G89.29 ; Pain in right hip M25.551 and Acute pain of left knee M25.562 [place] [address] [place] [id number] [address] [place] [address] May, Chronic pain G89.29 [facility] [address] [id number] [address] [place] [address] Apr, Chronic pain G89.29 [facility] [address] [facility] [id number] [address] [place] [address] Mar, Poison josep L23.7 [facility] [address] [facility] [id number] [address] [place] [address] Mar, Chronic pain G89.29 [facility] [address] [id number] [address] [place] [address] Feb, Chronic pain G89.29 [facility] [address] [facility] [id number] [address] [place] [address] Feb, Poison josep L23.7 [facility] [address] [facility] [id number] [address] [place] [address] Jan, Chronic pain G89.29 [facility] [address] [facility] [id number] [address] [place] [address] December, Chronic pain G89.29 [facility] [address] [facility] [id number] [address] [place] [address] Nov, Long-term use of high-risk m edication Z79.899 [facility] [address] [facility] [id number] [address] [place] [address] Nov, Chronic pain G89.29 [facility] [address] [facility] [id number] [address] [place] [address] Oct, Chronic pain G89.29 ; Pre-di abetes R73.09 ; Long-term use of high- risk medication Z79.899 ; Allergic rhinitis, unspecified seasonality, unspecified trigger J30.9 ; BMI 45.0-49.9, adult Z68.42 and Essential hypertension I10 [facility] [address] [facility] [id number] [address] [place] [address] Oct, Chronic pain G89.29 [facility] [address] [facility] [id number] [address] [place] [address] Sep, Chronic pain G89.29 [facility] [address] [facility] [id number] [address] [place] [address] Aug, Chronic pain G89.29 [facility] [address] [place] [id number] [address] [place] [address] Jul, [facility] [address] [place] [id number] [address] [place] [address] Jul, [facility] [address] [place] [id number] [place] [address] Jun, Chronic pain G89.29 ; BMI 45 .0-49.9, adult Z68.42 ; Pre-diabetes R73.09 ; Essential hypertension I10 ; GERD (gastroesophageal reflux disease) K21.9 ; Yeast dermatitis B37.2 ; Dysuria R30.0 ; Acute non-recurrent maxillary sinusitis J01.00 and Acute cystitis with hematuria N30.01 [facility] [address] [place] [id number] [address] [place] [address] Jun, Chronic pain G89.29 [facility] [address] [place] [id number] [address] [place] [address] Jun, Acute non-recurrent maxillar y sinusitis J01.00 and BMI 45.0-49.9, adult Z68.42 [facility] [address] [place] [id number] [address] [place] [address] May, [facility] [address] [place] [id number] [address] [place] [address] May, Chronic pain G89.29 [facility] [address] [place] [id number] [address] [place] [address] May, [facility] [address] [place] [id number] [address] [place] [address] Apr, Chronic pain G89.29 [facility] [address] [facility] [id number] [address] [place] [address] Mar, [place] [address] [place] [id number] [address] [place] [address] Mar, Essential hypertension I10 a nd Pre-diabetes R73.09 [place] [address] [place] [id number] [address] [place] [address] 15 Mar, 2017 Chronic pain G89.29 ; Essent ial hypertension I10 ; Depressive disorder, not elsewhere classified F32.9 ; GERD (gastroesophageal reflux disease) K21.9 ; Pre-diabetes R73.09 ; Stasis dermatitis of both legs I87.2 and Acute non-recurrent maxillary sinusitis J01.00 [place] [address] [facility] [id number] [address] [place] [address] 11 Mar, 2017 Chronic pain G89.29 [place] [id number] [place] [address] Mar, Achilles tendinitis of right lower extremity M76.61 and Tinea corporis B35.4 [place] [address] [facility] [id number] [address] [place] [address] 17 Feb, 2017 Yeast dermatitis B37.2 [place] [address] [facility] [id number] [address] [place] [address] 14 Feb, 2017 Candidal intertrigo B37.2 an d Acute right ankle pain M25.571 [place] [address] [facility] [id number] [address] [place] [address] Feb, Chronic pain G89.29 [place] [address] [facility] [id number] [address] [place] [address] Jan, [place] [address] [place] [id number] [address] [place] [address] Jan, Chronic pain G89.29 [place] [address] [place] [id number] [address] [place] [address] December, Chronic pain G89.29 ; Essent ial hypertension I10 ; Depressive disorder, not elsewhere classified F32.9 ; GERD (gastroesophageal reflux disease) K21.9 ; Pre-diabetes R73.09 ; Screening breast examination Z12.39 ; Stasis dermatitis of both legs I87.2 and Yeast dermatitis B37.2 [place] [address] [facility] [id number] [address] [place] [address] Nov, Chronic pain G89.29 [place] [address] [facility] [id number] [address] [place] [address] Nov, Cellulitis of left lower ext remity L03.116 [place] [address] [facility] [id number] [address] [place] [address] Nov, Cellulitis of left lower ext remity L03.116 [place] [address] [facility] [id number] [address] [place] [address] Oct, Yeast dermatitis B37.2 [place] [address] [facility] [id number] [address] [place] [address] Oct, Chronic pain G89.29 [place] [address] [facility] [id number] [address] [place] [address] Sep, Chronic pain G89.29 ; Essent ial hypertension I10 ; Depressive disorder, not elsewhere classified F32.9 and GERD (gastroesophageal reflux disease) K21.9 [place] [address] [facility] [id number] [address] [place] [address] Aug, Chronic pain G89.29 [place] [address] [facility] [id number] [address] [place] [address] Aug, Cough R05 ; Rash R21 and Vinay h and nonspecific skin eruption R21 [place] [address] [facility] [id number] [address] [place] [address] Jul, Chronic pain G89.29 [place] [address] [place] [id number] [address] [place] [address] Jun, Chronic pain G89.29 ; Bronch itis J40 ; Essential hypertension I10 ; Depressive disorder, not elsewhere classified F32.9 ; GERD (gastroesophageal reflux disease) K21.9 and History of long-term use of multiple prescription drugs Z92.29 [place] [address] [address] Jun, Bronchitis J40 ; Chills R68. 83 and Sore throat J02.9 [place] [address] [address] May, [place] [address] [address] Apr, [facility] [address] [address] Apr, Acute mucoid otitis media of both ears H65.113 [place] [address] [address] Apr, Yeast dermatitis B37.2 and H ematuria R31.9 [place] [address] [address] Mar, [place] [address] [address] Mar, [place] [address] [address] Feb, Left anterior knee pain M25. 562 [place] [address] [address] Feb, Chronic pain G89.29 ; Essent ial hypertension I10 ; Depressive disorder, not elsewhere classified F32.9 ; GERD (gastroesophageal reflux disease) K21.9 and History of long-term use of multiple prescription drugs Z92.29 [place] [address] [address] Jan, [place] [address] [address] Jan, Well woman exam Z01.419 ; BM I 45.0-49.9, adult Z68.42 ; Family history of diabetes mellitus Z83.3 and Chronic pain G89.29 [place] [address] [address] December, Chronic pain G89.29 ; Essent ial hypertension I10 ; Depressive disorder, not elsewhere classified F32.9 ; GERD (gastroesophageal reflux disease) K21.9 ; 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 ; History of long-term use of multiple prescription drugs Z92.29 and Obesity E66.9 [place] [address] [address] Oct, [place] [address] [address] Oct, Well woman exam Z01.419 ; BM [...] smear Z12.4 and No natural teeth K00.0 [place] [address] [address] Oct, [address] [address] Sep, Chronic pain G89.29 ; Essent ial hypertension I10 ; GERD (gastroesophageal reflux disease) K21.9 ; 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 ; Skin infection L08.9 and History of long-term use of multiple prescription drugs Z92.29 [place] [address] [address] Aug, [place] [address] [address] Jul, [facility] [address] [place] [id number] [address] [place] [address] Jul, [facility] [address] [place] [id number] [address] [place] [address] Jul, Upper respiratory infection J06.9 [place] [address] [place] [id number] [address] [place] [address] Jul, Depressive disorder, not els ewhere classified F32.9 [facility] [address] [facility] [id number] [address] [place] [address] Jul, Chronic pain 338.29 [place] [address] [address] Jul, Chronic pain G89.29 [place] [address] [address] Jun, Poison josep L23.7 [place] [address] [place] [id number] [address] [place] [address] Jun, Allergic contact dermatitis due to plants, except food L23.7 [place] [address] [address] Jun, Essential hypertension I10 ; Chronic pain G89.29 ; GERD (gastroesophageal reflux disease) K21.9 and Numbness and tingling in hands R20.2 [place] [address] [place] [id number] [address] [place] [address] May, [place] [address] [place] [id number] [address] [place] [address] Apr, [place] [address] [address] Mar, [place] [address] [place] [id number] [address] [place] [address] Feb, Abdominal pain, left lateral 789.09 and Constipation 564.00 [place] [address] [address] Feb, Depressive disorder, not els ewhere classified 311 and No condition on Debord II V71.09 [facility] [address] [address] Feb, Spider bite 989.5 and Depres homar 311 [facility] [address] [address] Feb, [facility] [address] [address] Feb, Chronic pain 338.29 ; Arthro zonia 716.90 and GERD (gastroesophageal reflux disease) 530.81 [facility] [address] [address] Jan, Insect bites 919.4 [place] [address] [address] Jan, [facility] [address] [address] December, Skin infection, bacterial 68 6.9 ; Conjunctivitis 372.30 and Insect bites 919.4 [facility] [address] [place] [id number] [address] [place] [address] December, Chronic pain 338.29 ; Arthro zonia 716.90 ; Skin infection, bacterial 686.9 and Conjunctivitis 372.30 [facility] [address] [place] [id number] [address] [place] [address] December, [facility] [address] [place] [id number] [address] [place] [address] Nov, [facility] [address] [address] Nov, [facility] [address] [place] [id number] [address] [place] [address] Oct, [facility] [address] [place] [id number] [address] [place] [address] Oct, [facility] [address] [id number] [address] [place] [address], [place] [address] Sep, [facility] [address] [id number] [address] [place] [address], [place] [address] Sep, [facility] [address] [id number] [address] [place] [address], [place] [address] Aug, [facility] [address] [id number] [address] [place] [address], [place] [address] Aug, [facility] [address] [id number] [address] [place] [address], [place] [address] Aug, [facility] [address] [id number] [address] [place] [address], [place] [address] Aug, [facility] [address] [id number] [address] [place] [address], [place] [address] Jul, [facility] [address] [id number] [address] [place] [address], [place] [address] Jul, [facility] [address] [id number] [address] [place] [address], [place] [address] Jul, [facility] [address] [id number] [address] [place] [address], [place] [address] Jul, [facility] [address] [id number] [address] [place] [address], [place] [address] Jul, [facility] [address] [id number] [address] [place] [address], [place] [address] Jul, [facility] [address] [id number] [address] [place] [address], [place] [address] Jul, [facility] [address] [id number] [address] [place] [address], [place] [address] Jul, [facility] [address] [id number] [address] [place] [address], [place] [address] Jul, [facility] [address] [id number] [address] [place] [address], [place] [address] Jun, [facility] [address] [id number] [address] [place] [address], [place] [address] Jun, [facility] [address] [id number] [address] [place] [address], [place] [address] Jun, [facility] [address] [id number] [address] [place] [address], [place] [address] Jun, [facility] [address] [id number] [address] [place] [address], [place] [address] Jun, [facility] [address] [id number] [address] [place] [address], [place] [address] Jun, [facility] [address] [id number] [address] [place] [address], [place] [address] Jun, [facility] [address] [id number] [address] [place] [address], [place] [address] Jun, [facility] [address] [id number] [address] [place] [address], [place] [address] May, [facility] [address] [id number] [address] [place] [address], [place] [address] May, [facility] [address] [id number] [address] [place] [address], [place] [address] May, [facility] [address] [id number] [address] [place] [address], [place] [address] May, [facility] [address] [id number] [address] [place] [address], [place] [address] May, [facility] [address] [id number] [address] [place] [address], [place] [address] Apr, [facility] [address] [id number] [address] [place] [address], [place] [address] Apr, [facility] [address] [id number] [address] [place] [address], [place] [address] Apr, 2013 [facility] [address] [id number] [facility] [place] [address] Apr, 2013 [facility] [address] [id number] [address] [place] [address], [place] [address] Apr, [facility] [address] [id number] [address] [place] [address], [place] [address] Apr, 2013 [facility] [address] [id number] [address] [place] [address], [place] [address] Apr, 2013 [facility] [address] [id number] [address] [place] [address], [place] [address] Apr, [facility] [address] [id number] [address] [place] [address], [place] [address] Apr, [facility] [address] [id number] [address] [place] [address], [place] [address] Apr, [facility] [address] [id number] [address] [place] [address], [place] [address] Mar, [facility] [address] [id number] [address] [place] [address], [place] [address] Mar, [facility] [address] [id number] [address] [place] [address], [place] [address] Mar, [facility] [address] [id number] [address] [place] [address], [place] [address] Mar, [facility] [address] [id number] [address] [place] [address], [place] [address] Mar, [facility] [address] [id number] [address] [place] [address], [place] [address] Mar, [facility] [address] [id number] [address] [place] [address], [place] [address] Feb, [facility] [address] [id number] [address] [place] [address], [place] [address] Feb, [facility] [address] [id number] [address] [place] [address], [place] [address] Jan, [facility] [address] [id number] [address] [place] [address], [place] [address] Jan, [facility] [address] [id number] [address] [place] [address], [place] [address] Jan, [facility] [address] [id number] [address] [place] [address], [place] [address] Jan, [facility] [address] [id number] [address] [place] [address], [place] [address] December, [facility] [address] [id number] [address] [place] [address], [place] [address] December, [facility] [address] [id number] [address] [place] [address], [place] [address] December, [facility] [address] [id number] [address] [place] [address], [place] [address] December, [facility] [address] [id number] [address] [place] [address], [place] [address] December, [facility] [address] [id number] [address] [place] [address], [place] [address] December, [facility] [address] [id number] [address] [place] [address], [place] [address] December, [facility] [address] [id number] [address] [place] [address], [place] [address] December, [facility] [address] [id number] [address] [place] [address], [place] [id number] December, [facility] [address] [id number] [address] [place] [address], [place] [address] Nov, [facility] [address] [id number] [address] [place] [address], [place] [address] Nov, [facility] [address] [id number] [address] [place] [address], [place] [address] Nov, [facility] [address] [id number] [address] [place] [address], [place] [address] Nov, [facility] [address] [id number] [address] [place] [address], [place] [address] Nov, [facility] [address] [id number] [address] [place] [address], [place] [address] Nov, [facility] [address] [id number] [address] [place] [address], [place] [address] Nov, [facility] [address] [id number] [address] [place] [address], [place] [address] Nov, [facility] [address] [id number] [address] [place] [address], [place] [address] Nov, [facility] [address] [id number] [address] [place] [address], [place] [address] Nov, [facility] [address] [id number] [address] [place] [address], [place] [address] Oct, [facility] [address] [id number] [address] [place] [address], [place] [address] Oct, [facility] [address] [id number] [address] [place] [address], [place] [address] Sep, [facility] [address] [id number] [address] [place] [address], [place] [address] Sep, [facility] [address] [id number] [address] [place] [address], [place] [address] Aug, [facility] [address] [id number] [address] [place] [address], [place] [address] Aug, [facility] [address] [id number] [address] [place] [address], [place] [address] Aug, [facility] [address] [id number] [address] [place] [address], [place] [address] Aug, [facility] [address] [id number] [address] [place] [address], [place] [address] Jul, [facility] [address] [id number] [address] [place] [address], [place] [address] Jul, [facility] [address] [id number] [address] [place] [address], [place] [address] Jul, [facility] [address] [id number] [address] [place] [address], [place] [address] Jul, [facility] [address] [id number] [address] [place] [address], [place] [address] Jun, [facility] [address] [id number] [address] [place] [address], [place] [address] Jun, [facility] [address] [id number] [address] [place] [address], [place] [address] May, [facility] [address] [id number] [address] [place] [address], [place] [address] May, [facility] [address] [id number] [address] [place] [address], [place] [address] May, [facility] [address] [id number] [address] [place] [address], [place] [address] May, [facility] [address] [id number] [address] [place] [address], [place] [address] May, [facility] [address] [id number] [address] [place] [address], [place] [address] May, [facility] [address] [id number] [address] [place] [address], [place] [address] 30 Apr, 2013 [facility] [address] [id number] [address] [place] [address], [place] [address] 23 Apr, 2013 [facility] [address] [id number] [address] [place] [address], [place] [address] Apr, [facility] [address] [id number] [address] [place] [address], [place] [address] Feb, [facility] [address] [id number] [facility] [address] 27 Jan, 2013 [facility] [address] [id number] [address] [place] [address], [place] [address] 18 Jan, 2013 [facility] [address] [id number] [address] [place] [address], [place] [address] 17 Jan, 2013 [facility] [address] [id number] [address] [place] [address], [place] [address] 14 Jan, 2013 [facility] [address] [id number] [address] [place] [address], [place] [address] 30 Dec, 2012 [facility] [address] [id number] [address] [place] [address], [place] [address] December, [facility] [address] [id number] [address] [place] [address], [place] [address] 24 Nov, 2012 [facility] [address] [id number] [address] [place] [address], [place] [address] 23 Nov, 2012 [facility] [address] [id number] [address] [place] [address], [place] [address] Nov, [facility] [address] [id number] [address] [place] [address], [place] [address] Nov, [facility] [address] [id number] [address] [place] [address], [place] [address] 08 Nov, 2012 [facility] [address] [id number] [address] [place] [address], [place] [address] 08 Nov, 2012 [facility] [address] [id number] [address] [place] [address], [place] [address] 03 Nov, 2012 [facility] [address] [id number] [address] [place] [address], [place] [address] 27 Oct, 2012 [facility] [address] [id number] [address] [place] [address], [place] [address] 18 Oct, 2012 [facility] [address] [id number] [address] [place] [address], [place] [address] 14 Oct, 2012 [facility] [address] [id number] [facility] [address] 13 Oct, 2012 [facility] [address] [id number] [address] [place] [address], [place] [address] 12 Oct, 2012 [facility] [address] [id number] [address] [place] [address], [place] [address] 11 Oct, 2012 [facility] [address] [id number] [address] [place] [address], [place] [address] 08 Oct, 2012 [facility] [address] [id number] [address] [place] [address], [place] [address] 20 Sep, 2012 [facility] [address] [id number] [address] [place] [address], [place] [address] Sep, [facility] [address] [id number] [address] [place] [address], [place] [address] Aug, [facility] [address] [id number] [address] [place] [address], [place] [address] Aug, [facility] [address] [id number] [address] [place] [address], [place] [address] Jul, [facility] [address] [id number] [address] [place] [address], [place] [address] Jul, [facility] [address] [id number] [address] [place] [address], [place] [address] Jul, [facility] [address] [id number] [address] [place] [address], [place] [address] Jul, [facility] [address] [id number] [address] [place] [address], [place] [address] Jul, [facility] [address] [id number] [address] [place] [address], [place] [address] Jul, [facility] [address] [id number] [address] [place] [address], [place] [address] Jul, [facility] [address] [id number] [address] [place] [address] Jul, [facility] [address] [facility] [id number] [address] [place] [address] Jun, [facility] [address] [facility] [id number] [address] [place] [address] Jun, IMMUNIZATIONS No Known Immunizations SOCIAL HISTORY [...]
--- OUTSIDE RECORDS SUMMARY | 2020-02-11 03:17 | XMS REPORT ---
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 Name Role Phone KWESIKennedy DANG Unavailable PROBLEMS Type Condition ICD9-CM Code TNT03-ZH Code Onset Dates Condition S tatus SNOMED Code Problem GERD (gastroesophageal reflux disease) K21.9 Active 275042802 Problem Numbness and tingling in hands R20.2 Active 607724382 Problem History of abnormal cervical Pap smear Z87.898 Active 377994354 Problem Chronic recurrent major depressive disorder F33.9 Active 1377576 Problem Chronic pain G89.29 Active 2564557 1 Problem Morbid obesity due to excess calories E66.01 Active 593461308 Problem Pre-diabetes R73.09 Active 0047688 02 Problem Stasis dermatitis of both legs I87.2 Active 95888821 Problem BMI 45.0-49.9, adult Z68.42 Active 836391620 Problem Essential hypertension I10 Active 94966777 Problem Primary insomnia F51.01 Active 397 2004 ALLERGIES No Information ENCOUNTERS Encounter Location Date Diagnosis [facility] [address] [facility] [id number] [address] [place] [id number] Apr, [facility] [address] [place] [id number] [address] [place] [phone] Mar, Chronic pain G89.29 and BMI 45.0-49.9, adult Z68.42 [facility] [address] [facility] [id number] [address] [place] [address] Mar, Morbid obesity E66.01 ; 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 ; Morbid obesity due to excess calories E66.01 and High risk medication use Z79.899 [facility] [address] [place] [id number] [address] [place] [address] Mar, Chronic pain G89.29 and BMI 45.0-49.9, adult Z68.42 [facility] [address] [place] [id number] [address] [place] [address] Feb, [facility] [address] [facility] [id number] [address] [place] [phone] Feb, Chronic pain G89.29 and BMI 45.0-49.9, adult Z68.42 [facility] [address] [place] [id number] [address] [place] [phone] Jan, [place] [address] [place] [id number] [address] [place] [phone] Jan, Chronic pain G89.29 and BMI 45.0-49.9, adult Z68.42 [place] [address] [place] [id number] [address] [place] [phone] Jan, [facility] [address] [place] [id number] [address] [place] [address] December, Chronic pain G89.29 and BMI 45.0-49.9, adult Z68.42 [place] [address] [place] [id number] [address] [place] [address] Nov, Morbid obesity E66.01 and Ce llulitis of leg, left L03.116 [place] [address] [place] [id number] [address] [place] [address] Nov, Cellulitis of left lower ext remity L03.116 and Morbid obesity E66.01 [facility] [address] [facility] [id number] [address] [place] [phone] Nov, [place] [address] [place] [id number] [address] [place] [address] Nov, Morbid obesity E66.01 and Ce llulitis of left lower extremity L03.116 [facility] [address] [place] [id number] [address] [place] [address] Nov, Chronic pain G89.29 and BMI 45.0-49.9, adult Z68.42 [place] [address] [place] [id number] [place] [address] Oct, BMI 45.0-49.9, adult Z68.42 and Chronic pain G89.29 [place] [address] [place] [id number] [address] [place] [id number] 14 Sep, 2018 BMI 45.0-49.9, adult Z68.42 and Chronic pain G89.29 [place] [address] [place] [id number] [address] [place] [phone] 05 Sep, 2018 BMI 45.0-49.9, adult Z68.42 and Essential hypertension I10 [place] [address] [place] [id number] [place] [address] Aug, BMI 45.0-49.9, adult Z68.42 ; Chronic pain G89.29 ; Essential hypertension I10 and Primary insomnia F51.01 [place] [address] [place] [id number] [address] [place] [address] Aug, Chronic pain G89.29 [place] [address] [place] [id number] [address] [place] [address] Jul, Chronic pain G89.29 [place] [address] [place] [id number] [address] [place] [address] Jun, Chronic pain G89.29 [place] [address] [place] [id number] [place] [address] May, Chronic pain G89.29 [place] [address] [place] [id number] [place] [address] May, BMI 40.0-44.9, adult Z68.41 ; Other chronic pain G89.29 ; Pain in right hip M25.551 and Acute pain of left knee M25.562 [place] [address] [place] [id number] [place] [address] May, Chronic pain G89.29 [facility] [address] [id number] [address] [place] [address] Apr, Chronic pain G89.29 [facility] [address] [facility] [id number] [address] [place] [address] Mar, Poison josep L23.7 [facility] [address] [facility] [id number] [address] [place] [address] Mar, Chronic pain G89.29 [facility] [address] [id number] [address] [place] [address] Feb, Chronic pain G89.29 [facility] [address] [facility] [id number] [address] [place] [phone] Feb, Poison josep L23.7 [facility] [address] [facility] [id number] [address] [place] [address] Jan, Chronic pain G89.29 [facility] [address] [facility] [id number] [address] [place] [id number] December, Chronic pain G89.29 [facility] [address] [facility] [id number] [address] [place] [id number] Nov, Long-term use of high-risk m edication Z79.899 [facility] [address] [facility] [id number] [address] [place] [address] Nov, Chronic pain G89.29 [facility] [address] [facility] [id number] [address] [place] [address] Oct, Chronic pain G89.29 ; Pre-di abetes R73.09 ; Long-term use of high- risk medication Z79.899 ; Allergic rhinitis, unspecified seasonality, unspecified trigger J30.9 ; BMI 45.0-49.9, adult Z68.42 and Essential hypertension I10 [facility] [address] [facility] [id number] [address] [place] [address] Oct, Chronic pain G89.29 [facility] [address] [facility] [id number] [address] [place] [id number] Sep, Chronic pain G89.29 [facility] [address] [facility] [id number] [address] [place] [address] Aug, Chronic pain G89.29 [facility] [address] [place] [id number] [address] [place] [phone] Jul, [facility] [address] [place] [id number] [address] [place] [address] Jul, [facility] [address] [place] [id number] [place] [address] Jun, Chronic pain G89.29 ; BMI 45 .0-49.9, adult Z68.42 ; Pre-diabetes R73.09 ; Essential hypertension I10 ; GERD (gastroesophageal reflux disease) K21.9 ; Yeast dermatitis B37.2 ; Dysuria R30.0 ; Acute non-recurrent maxillary sinusitis J01.00 and Acute cystitis with hematuria N30.01 [facility] [address] [place] [id number] [address] [place] [address] Jun, Chronic pain G89.29 [facility] [address] [place] [id number] [address] [place] [address] Jun, Acute non-recurrent maxillar y sinusitis J01.00 and BMI 45.0-49.9, adult Z68.42 [facility] [address] [place] [id number] [address] [place] [address] May, [facility] [address] [place] [id number] [address] [place] [address] May, Chronic pain G89.29 [facility] [address] [place] [id number] [address] [place] [address] May, [facility] [address] [place] [id number] [address] [place] [address] Apr, Chronic pain G89.29 [facility] [address] [facility] [id number] [address] [place] [phone] Mar, [place] [address] [place] [id number] [place] [phone] Mar, Essential hypertension I10 a nd Pre-diabetes R73.09 [place] [address] [place] [id number] [place] [id number] 15 Mar, 2017 Chronic pain G89.29 ; Essent ial hypertension I10 ; Depressive disorder, not elsewhere classified F32.9 ; GERD (gastroesophageal reflux disease) K21.9 ; Pre-diabetes R73.09 ; Stasis dermatitis of both legs I87.2 and Acute non-recurrent maxillary sinusitis J01.00 [place] [address] [facility] [id number] [address] [place] [address] 11 Mar, 2017 Chronic pain G89.29 [place] [id number] [place] [address] Mar, Achilles tendinitis of right lower extremity M76.61 and Tinea corporis B35.4 [place] [address] [facility] [id number] [address] [place] [phone] 17 Feb, 2017 Yeast dermatitis B37.2 [place] [address] [facility] [id number] [address] [place] [address] 14 Feb, 2017 Candidal intertrigo B37.2 an d Acute right ankle pain M25.571 [place] [address] [facility] [id number] [address] [place] [address] Feb, Chronic pain G89.29 [place] [address] [facility] [id number] [address] [place] [phone] Jan, [place] [address] [place] [id number] [place] [address] Jan, Chronic pain G89.29 [place] [address] [place] [id number] [place] [address] December, Chronic pain G89.29 ; Essent ial hypertension I10 ; Depressive disorder, not elsewhere classified F32.9 ; GERD (gastroesophageal reflux disease) K21.9 ; Pre-diabetes R73.09 ; Screening breast examination Z12.39 ; Stasis dermatitis of both legs I87.2 and Yeast dermatitis B37.2 [place] [address] [facility] [id number] [address] [place] [address] Nov, Chronic pain G89.29 [place] [address] [facility] [id number] [address] [place] [address] Nov, Cellulitis of left lower ext remity L03.116 [place] [address] [facility] [id number] [address] [place] [phone] Nov, Cellulitis of left lower ext remity L03.116 [place] [address] [facility] [id number] [address] [place] [id number] Oct, Yeast dermatitis B37.2 [place] [address] [facility] [id number] [address] [place] [id number] Oct, Chronic pain G89.29 [place] [address] [facility] [id number] [address] [place] [id number] Sep, Chronic pain G89.29 ; Essent ial hypertension I10 ; Depressive disorder, not elsewhere classified F32.9 and GERD (gastroesophageal reflux disease) K21.9 [place] [address] [facility] [id number] [address] [place] [address] Aug, Chronic pain G89.29 [place] [address] [facility] [id number] [address] [place] [phone] Aug, Cough R05 ; Rash R21 and Vinay h and nonspecific skin eruption R21 [place] [address] [facility] [id number] [address] [place] [address] Jul, Chronic pain G89.29 [place] [address] [place] [id number] [address] [place] [phone] Jun, Chronic pain G89.29 ; Bronch itis J40 ; Essential hypertension I10 ; Depressive disorder, not elsewhere classified F32.9 ; GERD (gastroesophageal reflux disease) K21.9 and History of long-term use of multiple prescription drugs Z92.29 [place] [address] [address] Jun, Bronchitis J40 ; Chills R68. 83 and Sore throat J02.9 [place] [address] [address] May, [place] [address] [address] Apr, [facility] [address] [address] Apr, Acute mucoid otitis media of both ears H65.113 [place] [address] [address] Apr, Yeast dermatitis B37.2 and H ematuria R31.9 [place] [address] [address] Mar, [place] [address] [address] Mar, [place] [address] [address] Feb, Left anterior knee pain M25. 562 [place] [address] [address] Feb, Chronic pain G89.29 ; Essent ial hypertension I10 ; Depressive disorder, not elsewhere classified F32.9 ; GERD (gastroesophageal reflux disease) K21.9 and History of long-term use of multiple prescription drugs Z92.29 [place] [address] [address] Jan, [place] [address] [address] Jan, Well woman exam Z01.419 ; BM I 45.0-49.9, adult Z68.42 ; Family history of diabetes mellitus Z83.3 and Chronic pain G89.29 [place] [address] [address] December, Chronic pain G89.29 ; Essent ial hypertension I10 ; Depressive disorder, not elsewhere classified F32.9 ; GERD (gastroesophageal reflux disease) K21.9 ; 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 ; History of long-term use of multiple prescription drugs Z92.29 and Obesity E66.9 [place] [address] [address] Oct, [place] [address] [address] Oct, Well woman exam Z01.419 ; BM [...] smear Z12.4 and No natural teeth K00.0 [place] [address] [address] Oct, [address] [address] Sep, Chronic pain G89.29 ; Essent ial hypertension I10 ; GERD (gastroesophageal reflux disease) K21.9 ; 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 ; Skin infection L08.9 and History of long-term use of multiple prescription drugs Z92.29 [place] [address] [address] Aug, [place] [address] [address] Jul, [facility] [address] [place] [id number] [place] [address] Jul, [facility] [address] [place] [id number] [place] [address] Jul, Upper respiratory infection J06.9 [place] [address] [place] [id number] [place] [address] Jul, Depressive disorder, not els ewhere classified F32.9 [facility] [address] [facility] [id number] [address] [place] [address] Jul, Chronic pain 338.29 [place] [address] [address] Jul, Chronic pain G89.29 [place] [address] [address] Jun, Poison josep L23.7 [place] [address] [place] [id number] [address] [place] [address] Jun, Allergic contact dermatitis due to plants, except food L23.7 [place] [address] [address] Jun, Essential hypertension I10 ; Chronic pain G89.29 ; GERD (gastroesophageal reflux disease) K21.9 and Numbness and tingling in hands R20.2 [place] [address] [place] [id number] [place] [address] May, [place] [address] [place] [id number] [place] [address] Apr, [place] [address] [address] Mar, [place] [address] [place] [id number] [place] [address] Feb, Abdominal pain, left lateral 789.09 and Constipation 564.00 [place] [address] [address] Feb, Depressive disorder, not els ewhere classified 311 and No condition on [place] II V71.09 [facility] [address] [address] Feb, Spider bite 989.5 and Depres homar 311 [facility] [address] [address] Feb, [facility] [address] [address] Feb, Chronic pain 338.29 ; Arthro zonia 716.90 and GERD (gastroesophageal reflux disease) 530.81 [facility] [address] [address] Jan, Insect bites 919.4 [place] [address] [address] Jan, [facility] [address] [address] December, Skin infection, bacterial 68 6.9 ; Conjunctivitis 372.30 and Insect bites 919.4 [facility] [address] [place] [id number] [address] [place] [address] December, Chronic pain 338.29 ; Arthro zonia 716.90 ; Skin infection, bacterial 686.9 and Conjunctivitis 372.30 [facility] [address] [place] [id number] [address] [place] [address] December, [facility] [address] [place] [id number] [address] [place] [address] Nov, [facility] [address] [address] Nov, [facility] [address] [place] [id number] [address] [place] [phone] Oct, [facility] [address] [place] [id number] [address] [place] [address] Oct, [facility] [address] [id number] [address] [place] [address], [place] [address] Sep, [facility] [address] [id number] [address] [place] [address], [place] [address] Sep, [facility] [address] [id number] [address] [place] [address], [place] [address] Aug, [facility] [address] [id number] [address] [place] [address], [place] [address] Aug, [facility] [address] [id number] [address] [place] [address], [place] [address] Aug, [facility] [address] [id number] [address] [place] [address], [place] [address] Aug, [facility] [address] [id number] [address] [place] [address], [place] [address] Jul, [facility] [address] [id number] [address] [place] [address], [place] [address] Jul, [facility] [address] [id number] [address] [place] [address], [place] [address] Jul, [facility] [address] [id number] [address] [place] [address], [place] [address] Jul, [facility] [address] [id number] [address] [place] [address], [place] [address] Jul, [facility] [address] [id number] [address] [place] [address], [place] [address] Jul, [facility] [address] [id number] [address] [place] [address], [place] [address] Jul, [facility] [address] [id number] [address] [place] [address], [place] [address] Jul, [facility] [address] [id number] [address] [place] [address], [place] [address] Jul, [facility] [address] [id number] [address] [place] [address], [place] [address] Jun, [facility] [address] [id number] [address] [place] [address], [place] [address] Jun, [facility] [address] [id number] [address] [place] [address], [place] [address] Jun, [facility] [address] [id number] [address] [place] [address], [place] [address] Jun, [facility] [address] [id number] [address] [place] [address], [place] [address] Jun, [facility] [address] [id number] [address] [place] [address], [place] [address] Jun, [facility] [address] [id number] [address] [place] [address], [place] [address] Jun, [facility] [address] [id number] [address] [place] [address], [place] [address] Jun, [facility] [address] [id number] [address] [place] [address], [place] [address] May, [facility] [address] [id number] [address] [place] [address], [place] [address] May, [facility] [address] [id number] [address] [place] [address], [place] [address] May, [facility] [address] [id number] [address] [place] [address], [place] [address] May, [facility] [address] [id number] [address] [place] [address], [place] [address] May, [facility] [address] [id number] [address] [place] [address], [place] [address] Apr, [facility] [address] [id number] [address] [place] [address], [place] [address] Apr, [facility] [address] [id number] [address] [place] [address], [place] [id number] Apr, 2013 [facility] [address] [id number] [facility] [place] [address] Apr, 2013 [facility] [address] [id number] [address] [place] [address], [place] [address] Apr, [facility] [address] [id number] [address] [place] [address], [place] [id number] Apr, 2013 [facility] [address] [id number] [address] [place] [address], [place] [address] Apr, 2013 [facility] [address] [id number] [address] [place] [address], [place] [id number] Apr, [facility] [address] [id number] [address] [place] [address], [place] [address] Apr, [facility] [address] [id number] [address] [place] [address], [place] [id number] Apr, [facility] [address] [id number] [address] [place] [address], [place] [id number] Mar, [facility] [address] [id number] [address] [place] [address], [place] [address] Mar, [facility] [address] [id number] [address] [place] [address], [place] [address] Mar, [facility] [address] [id number] [address] [place] [address], [place] [address] Mar, [facility] [address] [id number] [address] [place] [address], [place] [address] Mar, [facility] [address] [id number] [address] [place] [address], [place] [id number] Mar, [facility] [address] [id number] [address] [place] [address], [place] [address] Feb, [facility] [address] [id number] [address] [place] [address], [place] [id number] Feb, [facility] [address] [id number] [address] [place] [address], [place] [id number] Jan, [facility] [address] [id number] [address] [place] [address], [place] [address] Jan, [facility] [address] [id number] [address] [place] [address], [place] [id number] Jan, [facility] [address] [id number] [address] [place] [address], [place] [id number] Jan, [facility] [address] [id number] [address] [place] [address], [place] [id number] December, [facility] [address] [id number] [address] [place] [address], [place] [address] December, [facility] [address] [id number] [address] [place] [address], [place] [address] December, [facility] [address] [id number] [address] [place] [address], [place] [id number] December, [facility] [address] [id number] [address] [place] [address], [place] [id number] December, [facility] [address] [id number] [address] [place] [address], [place] [address] December, [facility] [facility] [address] [id number] [address] [place] [address], [place] [address] December, [facility] [address] [id number] [address] [place] [address], [place] [address] December, [facility] [address] [id number] [address] [place] [address], [place] [address] December, [facility] [address] [id number] [address] [place] [address], [place] [address] Nov, [facility] [address] [id number] [address] [place] [address], [place] [address] Nov, [facility] [address] [id number] [address] [place] [address], [place] [address] Nov, [facility] [address] [id number] [address] [place] [address], [place] [id number] Nov, [facility] [address] [id number] [address] [place] [address], [place] [address] Nov, [facility] [address] [id number] [address] [place] [address], [place] [address] Nov, [facility] [address] [id number] [address] [place] [address], [place] [id number] Nov, [facility] [address] [id number] [address] [place] [address], [place] [address] Nov, [facility] [address] [id number] [address] [place] [address], [place] [address] Nov, [facility] [address] [id number] [address] [place] [address], [place] [address] Nov, [facility] [address] [id number] [address] [place] [address], [place] [address] Oct, [facility] [address] [id number] [address] [place] [address], [place] [address] Oct, [facility] [address] [id number] [address] [place] [address], [place] [address] Sep, [facility] [address] [id number] [address] [place] [address], [place] [address] Sep, [facility] [address] [id number] [address] [place] [address], [place] [id number] Aug, [facility] [address] [id number] [address] [place] [address], [place] [id number] Aug, [facility] [address] [id number] [address] [place] [address], [place] [address] Aug, [facility] [address] [id number] [address] [place] [address], [place] [address] Aug, [facility] [address] [id number] [address] [place] [address], [place] [address] Jul, [facility] [address] [id number] [address] [place] [address], [place] [address] Jul, [facility] [address] [id number] [address] [place] [address], [place] [address] Jul, [facility] [address] [id number] [address] [place] [address], [place] [address] Jul, [facility] [address] [id number] [address] [place] [address], [place] [address] Jun, [facility] [address] [id number] [address] [place] [address], [place] [address] Jun, [facility] [address] [id number] [address] [place] [address], [place] [address] May, [facility] [address] [id number] [address] [place] [address], [place] [address] May, [facility] [address] [id number] [address] [place] [address], [place] [address] May, [facility] [address] [id number] [address] [place] [address], [place] [address] May, [facility] [address] [id number] [address] [place] [address], [place] [address] May, [facility] [address] [id number] [address] [place] [address], [place] [address] May, [facility] [address] [id number] [address] [place] [address], [place] [address] 30 Apr, 2013 [facility] [address] [id number] [address] [place] [address], [place] [id number] 23 Apr, 2013 [facility] [address] [id number] [address] [place] [address], [place] [address] Apr, [facility] [address] [id number] [address] [place] [address], [place] [address] Feb, [facility] [address] [id number] [facility] [address] 27 Jan, 2013 [facility] [address] [id number] [address] [place] [address], [place] [id number] 18 Jan, 2013 [facility] [address] [id number] [address] [place] [address], [place] [address] 17 Jan, 2013 [facility] [address] [id number] [address] [place] [address], [place] [id number] 14 Jan, 2013 [facility] [address] [id number] [address] [place] [address], [place] [address] 30 Dec, 2012 [facility] [address] [id number] [address] [place] [address], [place] [id number] December, [facility] [address] [id number] [address] [place] [address], [place] [id number] 24 Nov, 2012 [facility] [address] [id number] [address] [place] [address], [place] [id number] 23 Nov, 2012 [facility] [address] [id number] [address] [place] [address], [place] [address] Nov, [facility] [address] [id number] [address] [place] [address], [place] [address] Nov, [facility] [address] [id number] [address] [place] [address], [place] [id number] 08 Nov, 2012 [facility] [address] [id number] [address] [place] [address], [place] [id number] 08 Nov, 2012 [facility] [address] [id number] [address] [place] [address], [place] [id number] 03 Nov, 2012 [facility] [address] [id number] [address] [place] [address], [place] [id number] 27 Oct, 2012 [facility] [address] [id number] [address] [place] [address], [place] [id number] 18 Oct, 2012 [facility] [address] [id number] [address] [place] [address], [place] [id number] 14 Oct, 2012 [facility] [address] [id number] [facility] [address] 13 Oct, 2012 [facility] [address] [id number] [address] [place] [address], [place] [address] 12 Oct, 2012 [facility] [address] [id number] [address] [place] [address], [place] [id number] 11 Oct, 2012 [facility] [address] [id number] [address] [place] [address], [place] [id number] 08 Oct, 2012 [facility] [address] [id number] [address] [place] [address], [place] [id number] 20 Sep, 2012 [facility] [address] [id number] [address] [place] [address], [place] [id number] Sep, [facility] [address] [id number] [address] [place] [address], [place] [address] Aug, [facility] [address] [id number] [address] [place] [address], [place] [id number] Aug, [facility] [address] [id number] [address] [place] [address], [place] [address] Jul, [facility] [address] [id number] [address] [place] [address], [place] [id number] Jul, [facility] [address] [id number] [address] [place] [address], [place] [address] Jul, [facility] [address] [id number] [address] [place] [address], [place] [address] Jul, [facility] [address] [id number] [address] [place] [address], [place] [id number] Jul, [facility] [address] [id number] [address] [place] [address], [place] [id number] Jul, [facility] [address] [id number] [address] [place] [address], [place] [address] Jul, [facility] [address] [id number] [address] [place] [id number] Jul, [facility] [address] [facility] [id number] [address] [place] [id number] Jun, [facility] [address] [facility] [id number] [address] [place] [id number] Jun, IMMUNIZATIONS No Known Immunizations SOCIAL HISTORY [...]
--- OUTSIDE RECORDS SUMMARY | 2020-02-11 03:17 | XMS REPORT ---
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 Name Role Phone KWESIKennedy DANG Unavailable PROBLEMS Type Condition ICD9-CM Code UOQ62-UC Code Onset Dates Condition S tatus SNOMED Code Problem GERD (gastroesophageal reflux disease) K21.9 Active 085671745 Problem Numbness and tingling in hands R20.2 Active 957801098 Problem History of abnormal cervical Pap smear Z87.898 Active 258554261 Problem Chronic recurrent major depressive disorder F33.9 Active 5286563 Problem Chronic pain G89.29 Active 8741070 1 Problem Morbid obesity due to excess calories E66.01 Active 306200785 Problem Pre-diabetes R73.09 Active 7364204 02 Problem Stasis dermatitis of both legs I87.2 Active 94295079 Problem BMI 45.0-49.9, adult Z68.42 Active 038995769 Problem Essential hypertension I10 Active 65178591 Problem Primary insomnia F51.01 Active 397 2004 ALLERGIES No Information ENCOUNTERS Encounter Location Date Diagnosis [facility] [address] [facility] [id number] [address] [place] [id number] Apr, [facility] [address] [place] [id number] [address] [place] [id number] Mar, Chronic pain G89.29 and BMI 45.0-49.9, adult Z68.42 [facility] [address] [facility] [id number] [address] [place] [id number] Mar, Morbid obesity E66.01 ; Information Delivery Analyst david recurrent major depressive disorder F33.9 ; Morbid obesity due to excess calories E66.01 and High risk medication use Z79.899 [facility] [address] [place] [id number] [address] [place] [id number] Mar, Chronic pain G89.29 and BMI 45.0-49.9, adult Z68.42 [facility] [address] [place] [id number] [address] [place] [phone] Feb, [facility] [address] [facility] [id number] [address] [place] [phone] Feb, Chronic pain G89.29 and BMI 45.0-49.9, adult Z68.42 [facility] [address] [place] [id number] [address] [place] [phone] Jan, [place] [address] [place] [id number] [address] [place] [phone] Jan, Chronic pain G89.29 and BMI 45.0-49.9, adult Z68.42 [place] [address] [place] [id number] [address] [place] [phone] Jan, [facility] [address] [place] [id number] [address] [place] [phone] December, Chronic pain G89.29 and BMI 45.0-49.9, adult Z68.42 [place] [address] [place] [id number] [address] [place] [id number] Nov, Morbid obesity E66.01 and Ce llulitis of leg, left L03.116 [place] [address] [place] [id number] [address] [place] [phone] Nov, Cellulitis of left lower ext remity L03.116 and Morbid obesity E66.01 [facility] [address] [facility] [id number] [address] [place] [phone] Nov, [place] [address] [place] [id number] [address] [place] [phone] Nov, Morbid obesity E66.01 and Ce llulitis of left lower extremity L03.116 [facility] [address] [place] [id number] [address] [place] [id number] Nov, Chronic pain G89.29 and BMI 45.0-49.9, adult Z68.42 [place] [address] [place] [id number] [place] [phone] Oct, BMI 45.0-49.9, adult Z68.42 and Chronic pain G89.29 [place] [address] [place] [id number] [address] [place] [id number] 14 Sep, 2018 BMI 45.0-49.9, adult Z68.42 and Chronic pain G89.29 [place] [address] [place] [id number] [address] [place] [id number] 05 Sep, 2018 BMI 45.0-49.9, adult Z68.42 and Essential hypertension I10 [place] [address] [place] [id number] [place] [phone] Aug, BMI 45.0-49.9, adult Z68.42 ; Chronic pain G89.29 ; Essential hypertension I10 and Primary insomnia F51.01 [place] [address] [place] [id number] [address] [place] [phone] Aug, Chronic pain G89.29 [place] [address] [place] [id number] [address] [place] [id number] Jul, Chronic pain G89.29 [place] [address] [place] [id number] [address] [place] [id number] Jun, Chronic pain G89.29 [place] [address] [place] [id number] [address] [place] [address] May, Chronic pain G89.29 [place] [address] [place] [id number] [address] [place] [id number] May, BMI 40.0-44.9, adult Z68.41 ; Other chronic pain G89.29 ; Pain in right hip M25.551 and Acute pain of left knee M25.562 [place] [address] [place] [id number] [address] [place] [address] May, Chronic pain G89.29 [facility] [address] [id number] [address] [place] [id number] Apr, Chronic pain G89.29 [facility] [address] [facility] [id number] [address] [place] [id number] Mar, Poison josep L23.7 [facility] [address] [facility] [id number] [address] [place] [phone] Mar, Chronic pain G89.29 [facility] [address] [id number] [address] [place] [phone] Feb, Chronic pain G89.29 [facility] [address] [facility] [id number] [address] [place] [id number] Feb, Poison josep L23.7 [facility] [address] [facility] [id number] [address] [place] [phone] Jan, Chronic pain G89.29 [facility] [address] [facility] [id number] [address] [place] [id number] December, Chronic pain G89.29 [facility] [address] [facility] [id number] [address] [place] [id number] Nov, Long-term use of high-risk m edication Z79.899 [facility] [address] [facility] [id number] [address] [place] [phone] Nov, Chronic pain G89.29 [facility] [address] [facility] [id number] [address] [place] [id number] Oct, Chronic pain G89.29 ; Pre-di abetes R73.09 ; Long-term use of high- risk medication Z79.899 ; Allergic rhinitis, unspecified seasonality, unspecified trigger J30.9 ; BMI 45.0-49.9, adult Z68.42 and Essential hypertension I10 [facility] [address] [facility] [id number] [address] [place] [id number] Oct, Chronic pain G89.29 [facility] [address] [facility] [id number] [address] [place] [id number] Sep, Chronic pain G89.29 [facility] [address] [facility] [id number] [address] [place] [phone] Aug, Chronic pain G89.29 [facility] [address] [place] [id number] [address] [place] [phone] Jul, [facility] [address] [place] [id number] [address] [place] [id number] Jul, [facility] [address] [place] [id number] [place] [address] Jun, Chronic pain G89.29 ; BMI 45 .0-49.9, adult Z68.42 ; Pre-diabetes R73.09 ; Essential hypertension I10 ; GERD (gastroesophageal reflux disease) K21.9 ; Yeast dermatitis B37.2 ; Dysuria R30.0 ; Acute non-recurrent maxillary sinusitis J01.00 and Acute cystitis with hematuria N30.01 [facility] [address] [place] [id number] [address] [place] [id number] Jun, Chronic pain G89.29 [facility] [address] [place] [id number] [address] [place] [phone] Jun, Acute non-recurrent maxillar y sinusitis J01.00 and BMI 45.0-49.9, adult Z68.42 [facility] [address] [place] [id number] [address] [place] [phone] May, [facility] [address] [place] [id number] [address] [place] [id number] May, Chronic pain G89.29 [facility] [address] [place] [id number] [address] [place] [phone] May, [facility] [address] [place] [id number] [address] [place] [phone] Apr, Chronic pain G89.29 [facility] [address] [facility] [id number] [address] [place] [id number] Mar, [place] [address] [place] [id number] [address] [place] [phone] Mar, Essential hypertension I10 a nd Pre-diabetes R73.09 [place] [address] [place] [id number] [address] [place] [id number] 15 Mar, 2017 Chronic pain G89.29 ; Essent ial hypertension I10 ; Depressive disorder, not elsewhere classified F32.9 ; GERD (gastroesophageal reflux disease) K21.9 ; Pre-diabetes R73.09 ; Stasis dermatitis of both legs I87.2 and Acute non-recurrent maxillary sinusitis J01.00 [place] [address] [facility] [id number] [address] [place] [phone] 11 Mar, 2017 Chronic pain G89.29 [place] [id number] [place] [id number] Mar, Achilles tendinitis of right lower extremity M76.61 and Tinea corporis B35.4 [place] [address] [facility] [id number] [address] [place] [id number] 17 Feb, 2017 Yeast dermatitis B37.2 [place] [address] [facility] [id number] [address] [place] [id number] 14 Feb, 2017 Candidal intertrigo B37.2 an d Acute right ankle pain M25.571 [place] [address] [facility] [id number] [address] [place] [phone] Feb, Chronic pain G89.29 [place] [address] [facility] [id number] [address] [place] [phone] Jan, [place] [address] [place] [id number] [address] [place] [phone] Jan, Chronic pain G89.29 [place] [address] [place] [id number] [address] [place] [phone] December, Chronic pain G89.29 ; Essent ial hypertension I10 ; Depressive disorder, not elsewhere classified F32.9 ; GERD (gastroesophageal reflux disease) K21.9 ; Pre-diabetes R73.09 ; Screening breast examination Z12.39 ; Stasis dermatitis of both legs I87.2 and Yeast dermatitis B37.2 [place] [address] [facility] [id number] [address] [place] [phone] Nov, Chronic pain G89.29 [place] [address] [facility] [id number] [address] [place] [phone] Nov, Cellulitis of left lower ext remity L03.116 [place] [address] [facility] [id number] [address] [place] [id number] Nov, Cellulitis of left lower ext remity L03.116 [place] [address] [facility] [id number] [address] [place] [phone] Oct, Yeast dermatitis B37.2 [place] [address] [facility] [id number] [address] [place] [id number] Oct, Chronic pain G89.29 [place] [address] [facility] [id number] [address] [place] [id number] Sep, Chronic pain G89.29 ; Essent ial hypertension I10 ; Depressive disorder, not elsewhere classified F32.9 and GERD (gastroesophageal reflux disease) K21.9 [place] [address] [facility] [id number] [address] [place] [phone] Aug, Chronic pain G89.29 [place] [address] [facility] [id number] [address] [place] [phone] Aug, Cough R05 ; Rash R21 and Vinay h and nonspecific skin eruption R21 [place] [address] [facility] [id number] [address] [place] [id number] Jul, Chronic pain G89.29 [place] [address] [place] [id number] [address] [place] [phone] Jun, Chronic pain G89.29 ; Bronch itis J40 ; Essential hypertension I10 ; Depressive disorder, not elsewhere classified F32.9 ; GERD (gastroesophageal reflux disease) K21.9 and History of long-term use of multiple prescription drugs Z92.29 [place] [address] [address] Jun, Bronchitis J40 ; Chills R68. 83 and Sore throat J02.9 [place] [address] [id number] May, [place] [address] [address] Apr, [facility] [address] [address] Apr, Acute mucoid otitis media of both ears H65.113 [place] [address] [address] Apr, Yeast dermatitis B37.2 and H ematuria R31.9 [place] [address] [address] Mar, [place] [address] [address] Mar, [place] [address] [address] Feb, Left anterior knee pain M25. 562 [place] [address] [address] Feb, Chronic pain G89.29 ; Essent ial hypertension I10 ; Depressive disorder, not elsewhere classified F32.9 ; GERD (gastroesophageal reflux disease) K21.9 and History of long-term use of multiple prescription drugs Z92.29 [place] [address] [address] Jan, [place] [address] [address] Jan, Well woman exam Z01.419 ; BM I 45.0-49.9, adult Z68.42 ; Family history of diabetes mellitus Z83.3 and Chronic pain G89.29 [place] [address] [address] December, Chronic pain G89.29 ; Essent ial hypertension I10 ; Depressive disorder, not elsewhere classified F32.9 ; GERD (gastroesophageal reflux disease) K21.9 ; 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 ; History of long-term use of multiple prescription drugs Z92.29 and Obesity E66.9 [place] [address] [address] Oct, [place] [address] [address] Oct, Well woman exam Z01.419 ; BM [...] smear Z12.4 and No natural teeth K00.0 [place] [address] [address] Oct, [address] [address] Sep, Chronic pain G89.29 ; Essent ial hypertension I10 ; GERD (gastroesophageal reflux disease) K21.9 ; 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 ; Skin infection L08.9 and History of long-term use of multiple prescription drugs Z92.29 [place] [address] [address] Aug, [place] [address] [address] Jul, [facility] [address] [place] [id number] [address] [place] [phone] Jul, [facility] [address] [place] [id number] [address] [place] [id number] Jul, Upper respiratory infection J06.9 [place] [address] [place] [id number] [address] [place] [id number] Jul, Depressive disorder, not els ewhere classified F32.9 [facility] [address] [facility] [id number] [address] [place] [phone] Jul, Chronic pain 338.29 [place] [address] [address] Jul, Chronic pain G89.29 [place] [address] [address] Jun, Poison josep L23.7 [place] [address] [place] [id number] [address] [place] [phone] Jun, Allergic contact dermatitis due to plants, except food L23.7 [place] [address] [address] Jun, Essential hypertension I10 ; Chronic pain G89.29 ; GERD (gastroesophageal reflux disease) K21.9 and Numbness and tingling in hands R20.2 [place] [address] [place] [id number] [address] [place] [address] May, [place] [address] [place] [id number] [address] [place] [address] Apr, [place] [address] [address] Mar, [place] [address] [place] [id number] [address] [place] [id number] Feb, Abdominal pain, left lateral 789.09 and Constipation 564.00 [place] [address] [address] Feb, Depressive disorder, not els ewhere classified 311 and No condition on Farner II V71.09 [facility] [address] [address] Feb, Spider bite 989.5 and Depres homar 311 [facility] [address] [address] Feb, [facility] [address] [address] Feb, Chronic pain 338.29 ; Arthro zonia 716.90 and GERD (gastroesophageal reflux disease) 530.81 [facility] [address] [address] Jan, Insect bites 919.4 [place] [address] [address] Jan, [facility] [address] [address] December, Skin infection, bacterial 68 6.9 ; Conjunctivitis 372.30 and Insect bites 919.4 [facility] [address] [place] [id number] [address] [place] [address] December, Chronic pain 338.29 ; Arthro zonia 716.90 ; Skin infection, bacterial 686.9 and Conjunctivitis 372.30 [facility] [address] [place] [id number] [address] [place] [phone] December, [facility] [address] [place] [id number] [address] [place] [phone] Nov, [facility] [address] [address] Nov, [facility] [address] [place] [id number] [address] [place] [id number] Oct, [facility] [address] [place] [id number] [address] [place] [phone] Oct, [facility] [address] [id number] [address] [place] [address], [place] [address] Sep, [facility] [address] [id number] [address] [place] [address], [place] [address] Sep, [facility] [address] [id number] [address] [place] [address], [place] [address] Aug, [facility] [address] [id number] [address] [place] [address], [place] [address] Aug, [facility] [address] [id number] [address] [place] [address], [place] [address] Aug, [facility] [address] [id number] [address] [place] [address], [place] [address] Aug, [facility] [address] [id number] [address] [place] [address], [place] [address] Jul, [facility] [address] [id number] [address] [place] [address], [place] [address] Jul, [facility] [address] [id number] [address] [place] [address], [place] [address] Jul, [facility] [address] [id number] [address] [place] [address], [place] [address] Jul, [facility] [address] [id number] [address] [place] [address], [place] [address] Jul, [facility] [address] [id number] [address] [place] [address], [place] [address] Jul, [facility] [address] [id number] [address] [place] [address], [place] [address] Jul, [facility] [address] [id number] [address] [place] [address], [place] [address] Jul, [facility] [address] [id number] [address] [place] [address], [place] [address] Jul, [facility] [address] [id number] [address] [place] [address], [place] [address] Jun, [facility] [address] [id number] [address] [place] [address], [place] [address] Jun, [facility] [address] [id number] [address] [place] [address], [place] [address] Jun, [facility] [address] [id number] [address] [place] [address], [place] [address] Jun, [facility] [address] [id number] [address] [place] [address], [place] [address] Jun, [facility] [address] [id number] [address] [place] [address], [place] [address] Jun, [facility] [address] [id number] [address] [place] [address], [place] [address] Jun, [facility] [address] [id number] [address] [place] [address], [place] [address] Jun, [facility] [address] [id number] [address] [place] [address], [place] [address] May, [facility] [address] [id number] [address] [place] [address], [place] [address] May, [facility] [address] [id number] [address] [place] [address], [place] [address] May, [facility] [address] [id number] [address] [place] [address], [place] [address] May, [facility] [address] [id number] [address] [place] [address], [place] [address] May, [facility] [address] [id number] [address] [place] [address], [place] [address] Apr, [facility] [address] [id number] [address] [place] [address], [place] [address] Apr, [facility] [address] [id number] [address] [place] [address], [place] [address] Apr, 2013 [facility] [address] [id number] [facility] [place] [address] Apr, 2013 [facility] [address] [id number] [address] [place] [address], [place] [address] Apr, [facility] [address] [id number] [address] [place] [address], [place] [address] Apr, 2013 [facility] [address] [id number] [address] [place] [address], [place] [address] Apr, 2013 [facility] [address] [id number] [address] [place] [address], [place] [address] Apr, [facility] [address] [id number] [address] [place] [address], [place] [address] Apr, [facility] [address] [id number] [address] [place] [address], [place] [address] Apr, [facility] [address] [id number] [address] [place] [address], [place] [address] Mar, [facility] [address] [id number] [address] [place] [address], [place] [address] Mar, [facility] [address] [id number] [address] [place] [address], [place] [address] Mar, [facility] [address] [id number] [address] [place] [address], [place] [address] Mar, [facility] [address] [id number] [address] [place] [address], [place] [address] Mar, [facility] [address] [id number] [address] [place] [address], [place] [address] Mar, [facility] [address] [id number] [address] [place] [address], [place] [address] Feb, [facility] [address] [id number] [address] [place] [address], [place] [address] Feb, [facility] [address] [id number] [address] [place] [address], [place] [address] Jan, [facility] [address] [id number] [address] [place] [address], [place] [address] Jan, [facility] [address] [id number] [address] [place] [address], [place] [address] Jan, [facility] [address] [id number] [address] [place] [address], [place] [address] Jan, [facility] [address] [id number] [address] [place] [address], [place] [address] December, [facility] [address] [id number] [address] [place] [address], [place] [address] December, [facility] [address] [id number] [address] [place] [address], [place] [address] December, [facility] [address] [id number] [address] [place] [address], [place] [address] December, [facility] [address] [id number] [address] [place] [address], [place] [address] December, [facility] [address] [id number] [address] [place] [address], [place] [address] December, [facility] [address] [id number] [address] [place] [address], [place] [address] December, [facility] [address] [id number] [address] [place] [address], [place] [address] December, [facility] [address] [id number] [address] [place] [address], [place] [address] December, [facility] [address] [id number] [address] [place] [address], [place] [address] Nov, [facility] [address] [id number] [address] [place] [address], [place] [address] Nov, [facility] [address] [id number] [address] [place] [address], [place] [address] Nov, [facility] [address] [id number] [address] [place] [address], [place] [address] Nov, [facility] [address] [id number] [address] [place] [address], [place] [address] Nov, [facility] [address] [id number] [address] [place] [address], [place] [address] Nov, [facility] [address] [id number] [address] [place] [address], [place] [address] Nov, [facility] [address] [id number] [address] [place] [address], [place] [address] Nov, [facility] [address] [id number] [address] [place] [address], [place] [address] Nov, [facility] [address] [id number] [address] [place] [address], [place] [address] Nov, [facility] [address] [id number] [address] [place] [address], [place] [address] Oct, [facility] [address] [id number] [address] [place] [address], [place] [address] Oct, [facility] [address] [id number] [address] [place] [address], [place] [address] Sep, [facility] [address] [id number] [address] [place] [address], [place] [address] Sep, [facility] [address] [id number] [address] [place] [address], [place] [address] Aug, [facility] [address] [id number] [address] [place] [address], [place] [address] Aug, [facility] [address] [id number] [address] [place] [address], [place] [address] Aug, [facility] [address] [id number] [address] [place] [address], [place] [address] Aug, [facility] [address] [id number] [address] [place] [address], [place] [address] Jul, [facility] [address] [id number] [address] [place] [address], [place] [address] Jul, [facility] [address] [id number] [address] [place] [address], [place] [address] Jul, [facility] [address] [id number] [address] [place] [address], [place] [address] Jul, [facility] [address] [id number] [address] [place] [address], [place] [address] Jun, [facility] [address] [id number] [address] [place] [address], [place] [address] Jun, [facility] [address] [id number] [address] [place] [address], [place] [address] May, [facility] [address] [id number] [address] [place] [address], [place] [address] May, [facility] [address] [id number] [address] [place] [address], [place] [address] May, [facility] [address] [id number] [address] [place] [address], [place] [address] May, [facility] [address] [id number] [address] [place] [address], [place] [address] May, [facility] [address] [id number] [address] [place] [address], [place] [address] May, [facility] [address] [id number] [address] [place] [address], [place] [address] 30 Apr, 2013 [facility] [address] [id number] [address] [place] [address], [place] [address] 23 Apr, 2013 [facility] [address] [id number] [address] [place] [address], [place] [address] Apr, [facility] [address] [id number] [address] [place] [address], [place] [address] Feb, [facility] [address] [id number] [facility] [place] [address] 27 Jan, [address] [facility] [address] [id number] [address] [place] [address], [place] [address] 18 Jan, 2013 [facility] [address] [id number] [address] [place] [address], [place] [address] 17 Jan, [address] [facility] [address] [id number] [address] [place] [address], [place] [address] 14 Jan, [address] [facility] [address] [id number] [address] [place] [address], [place] [address] 30 Dec, 2012 [facility] [address] [id number] [address] [place] [address], [place] [address] December, [facility] [address] [id number] [address] [place] [address], [place] [address] 24 Nov, 2012 [facility] [address] [id number] [address] [place] [address], [place] [address] 23 Nov, 2012 [facility] [address] [id number] [address] [place] [address], [place] [address] Nov, [facility] [address] [id number] [address] [place] [address], [place] [address] Nov, [facility] [address] [id number] [address] [place] [address], [place] [address] 08 Nov, [address] [facility] [address] [id number] [address] [place] [address], [place] [address] 08 Nov, 2012 [facility] [address] [id number] [address] [place] [address], [place] [address] 03 Nov, 2012 [facility] [address] [id number] [address] [place] [address], [place] [address] 27 Oct, 2012 [facility] [address] [id number] [address] [place] [address], [place] [address] 18 Oct, [address] [facility] [address] [id number] [address] [place] [address], [place] [address] 14 Oct, 2012 [facility] [address] [id number] [facility] [place] [address] 13 Oct, 2012 [facility] [address] [id number] [address] [place] [address], [place] [address] 12 Oct, 2012 [facility] [address] [id number] [address] [place] [address], [place] [address] 11 Oct, 2012 [facility] [address] [id number] [address] [place] [address], [place] [address] 08 Oct, 2012 [facility] [address] [id number] [address] [place] [address], [place] [address] 20 Sep, 2012 [facility] [address] [id number] [address] [place] [address], [place] [address] Sep, [facility] [address] [id number] [address] [place] [address], [place] [address] Aug, [facility] [address] [id number] [address] [place] [address], [place] [address] Aug, [facility] [address] [id number] [address] [place] [address], [place] [address] Jul, [facility] [address] [id number] [address] [place] [address], [place] [address] Jul, [facility] [address] [id number] [address] [place] [address], [place] [address] Jul, [facility] [address] [id number] [address] [place] [address], [place] [address] Jul, [facility] [address] [id number] [address] [place] [address], [place] [address] Jul, [facility] [address] [id number] [address] [place] [address], [place] [address] Jul, [facility] [address] [id number] [address] [place] [address], [place] [address] Jul, [facility] [address] [id number] [address] [place] [address] Jul, [facility] [address] [facility] [id number] [address] [place] [address] Jun, [facility] [address] [facility] [id number] [address] [place] [address] Jun, IMMUNIZATIONS No Known Immunizations SOCIAL HISTORY [...]
--- OUTSIDE RECORDS SUMMARY | 2020-02-11 03:17 | XMS REPORT ---
Author Author Madeline CHIANG [facility] Address [address] [place] [address] Care Team Providers Care Form Grader Operator Name Role Phone KWESIKennedy DANG Unavailable PROBLEMS Type Condition ICD9-CM Code ZZT89-XL Code Onset Dates Condition S tatus SNOMED Code Problem GERD (gastroesophageal reflux disease) K21.9 Active 905928461 Problem Numbness and tingling in hands R20.2 Active 810587771 Problem History of abnormal cervical Pap smear Z87.898 Active 411995350 Problem Chronic recurrent major depressive disorder F33.9 Active 1844963 Problem Chronic pain G89.29 Active 1416651 1 Problem Morbid obesity due to excess calories E66.01 Active 201869261 Problem Pre-diabetes R73.09 Active 5516232 02 Problem Stasis dermatitis of both legs I87.2 Active 75322610 Problem BMI 45.0-49.9, adult Z68.42 Active 943271662 Problem Essential hypertension I10 Active 07084675 Problem Primary insomnia F51.01 Active 397 2004 ALLERGIES No Information ENCOUNTERS Encounter Location Date Diagnosis [facility] [address] [facility] [id number] [address] [place] [id number] Apr, [facility] [address] [place] [id number] [address] [place] [phone] Mar, Chronic pain G89.29 and BMI 45.0-49.9, adult Z68.42 [facility] [address] [facility] [id number] [address] [place] [id number] Mar, Morbid obesity E66.01 ; 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 ; Morbid obesity due to excess calories E66.01 and High risk medication use Z79.899 [facility] [address] [place] [id number] [address] [place] [address] Mar, Chronic pain G89.29 and BMI 45.0-49.9, adult Z68.42 [facility] [address] [place] [id number] [address] [place] [address] Feb, [facility] [address] [facility] [id number] [address] [place] [phone] Feb, Chronic pain G89.29 and BMI 45.0-49.9, adult Z68.42 [facility] [address] [place] [id number] [address] [place] [address] Jan, [place] [address] [place] [id number] [address] [place] [id number] Jan, Chronic pain G89.29 and BMI 45.0-49.9, adult Z68.42 [place] [address] [place] [id number] [address] [place] [phone] Jan, [facility] [address] [place] [id number] [address] [place] [address] December, Chronic pain G89.29 and BMI 45.0-49.9, adult Z68.42 [place] [address] [place] [id number] [address] [place] [phone] Nov, Morbid obesity E66.01 and Ce llulitis of leg, left L03.116 [place] [address] [place] [id number] [address] [place] [address] Nov, Cellulitis of left lower ext remity L03.116 and Morbid obesity E66.01 [facility] [address] [facility] [id number] [address] [place] [address] Nov, [place] [address] [place] [id number] [address] [place] [phone] Nov, Morbid obesity E66.01 and Ce llulitis of left lower extremity L03.116 [facility] [address] [place] [id number] [address] [place] [address] Nov, Chronic pain G89.29 and BMI 45.0-49.9, adult Z68.42 [place] [address] [place] [id number] [place] [address] Oct, BMI 45.0-49.9, adult Z68.42 and Chronic pain G89.29 [place] [address] [place] [id number] [address] [place] [id number] 14 Sep, 2018 BMI 45.0-49.9, adult Z68.42 and Chronic pain G89.29 [place] [address] [place] [id number] [address] [place] [id number] 05 Sep, 2018 BMI 45.0-49.9, adult Z68.42 and Essential hypertension I10 [place] [address] [place] [id number] [place] [address] Aug, BMI 45.0-49.9, adult Z68.42 ; Chronic pain G89.29 ; Essential hypertension I10 and Primary insomnia F51.01 [place] [address] [place] [id number] [address] [place] [address] Aug, Chronic pain G89.29 [place] [address] [place] [id number] [address] [place] [address] Jul, Chronic pain G89.29 [place] [address] [place] [id number] [address] [place] [address] Jun, Chronic pain G89.29 [place] [address] [place] [id number] [address] [place] [address] May, Chronic pain G89.29 [place] [address] [place] [id number] [address] [place] [address] May, BMI 40.0-44.9, adult Z68.41 ; Other chronic pain G89.29 ; Pain in right hip M25.551 and Acute pain of left knee M25.562 [place] [address] [place] [id number] [address] [place] [address] May, Chronic pain G89.29 [facility] [address] [id number] [address] [place] [address] Apr, Chronic pain G89.29 [facility] [address] [facility] [id number] [address] [place] [address] Mar, Poison josep L23.7 [facility] [address] [facility] [id number] [address] [place] [address] Mar, Chronic pain G89.29 [facility] [address] [id number] [address] [place] [address] Feb, Chronic pain G89.29 [facility] [address] [facility] [id number] [address] [place] [address] Feb, Poison josep L23.7 [facility] [address] [facility] [id number] [address] [place] [phone] Jan, Chronic pain G89.29 [facility] [address] [facility] [id number] [address] [place] [id number] December, Chronic pain G89.29 [facility] [address] [facility] [id number] [address] [place] [address] Nov, Long-term use of high-risk m edication Z79.899 [facility] [address] [facility] [id number] [address] [place] [address] Nov, Chronic pain G89.29 [facility] [address] [facility] [id number] [address] [place] [address] Oct, Chronic pain G89.29 ; Pre-di abetes R73.09 ; Long-term use of high- risk medication Z79.899 ; Allergic rhinitis, unspecified seasonality, unspecified trigger J30.9 ; BMI 45.0-49.9, adult Z68.42 and Essential hypertension I10 [facility] [address] [facility] [id number] [address] [place] [id number] Oct, Chronic pain G89.29 [facility] [address] [facility] [id number] [address] [place] [id number] Sep, Chronic pain G89.29 [facility] [address] [facility] [id number] [address] [place] [address] Aug, Chronic pain G89.29 [facility] [address] [place] [id number] [address] [place] [phone] Jul, [facility] [address] [place] [id number] [address] [place] [address] Jul, [facility] [address] [place] [id number] [place] [address] Jun, Chronic pain G89.29 ; BMI 45 .0-49.9, adult Z68.42 ; Pre-diabetes R73.09 ; Essential hypertension I10 ; GERD (gastroesophageal reflux disease) K21.9 ; Yeast dermatitis B37.2 ; Dysuria R30.0 ; Acute non-recurrent maxillary sinusitis J01.00 and Acute cystitis with hematuria N30.01 [facility] [address] [place] [id number] [address] [place] [address] Jun, Chronic pain G89.29 [facility] [address] [place] [id number] [address] [place] [address] Jun, Acute non-recurrent maxillar y sinusitis J01.00 and BMI 45.0-49.9, adult Z68.42 [facility] [address] [place] [id number] [address] [place] [id number] May, [facility] [address] [place] [id number] [address] [place] [phone] May, Chronic pain G89.29 [facility] [address] [place] [id number] [address] [place] [phone] May, [facility] [address] [place] [id number] [address] [place] [address] Apr, Chronic pain G89.29 [facility] [address] [facility] [id number] [address] [place] [phone] Mar, [place] [address] [place] [id number] [address] [place] [address] Mar, Essential hypertension I10 a nd Pre-diabetes R73.09 [place] [address] [place] [id number] [address] [place] [id number] 15 Mar, 2017 Chronic pain G89.29 ; Essent ial hypertension I10 ; Depressive disorder, not elsewhere classified F32.9 ; GERD (gastroesophageal reflux disease) K21.9 ; Pre-diabetes R73.09 ; Stasis dermatitis of both legs I87.2 and Acute non-recurrent maxillary sinusitis J01.00 [place] [address] [facility] [id number] [address] [place] [phone] 11 Mar, 2017 Chronic pain G89.29 [place] [id number] [place] [address] Mar, Achilles tendinitis of right lower extremity M76.61 and Tinea corporis B35.4 [place] [address] [facility] [id number] [address] [place] [id number] 17 Feb, 2017 Yeast dermatitis B37.2 [place] [address] [facility] [id number] [address] [place] [phone] 14 Feb, 2017 Candidal intertrigo B37.2 an d Acute right ankle pain M25.571 [place] [address] [facility] [id number] [address] [place] [address] Feb, Chronic pain G89.29 [place] [address] [facility] [id number] [address] [place] [phone] Jan, [place] [address] [place] [id number] [address] [place] [address] Jan, Chronic pain G89.29 [place] [address] [place] [id number] [address] [place] [address] December, Chronic pain G89.29 ; Essent ial hypertension I10 ; Depressive disorder, not elsewhere classified F32.9 ; GERD (gastroesophageal reflux disease) K21.9 ; Pre-diabetes R73.09 ; Screening breast examination Z12.39 ; Stasis dermatitis of both legs I87.2 and Yeast dermatitis B37.2 [place] [address] [facility] [id number] [address] [place] [id number] Nov, Chronic pain G89.29 [place] [address] [facility] [id number] [address] [place] [address] Nov, Cellulitis of left lower ext remity L03.116 [place] [address] [facility] [id number] [address] [place] [address] Nov, Cellulitis of left lower ext remity L03.116 [place] [address] [facility] [id number] [address] [place] [id number] Oct, Yeast dermatitis B37.2 [place] [address] [facility] [id number] [address] [place] [address] Oct, Chronic pain G89.29 [place] [address] [facility] [id number] [address] [place] [phone] Sep, Chronic pain G89.29 ; Essent ial hypertension I10 ; Depressive disorder, not elsewhere classified F32.9 and GERD (gastroesophageal reflux disease) K21.9 [place] [address] [facility] [id number] [address] [place] [phone] Aug, Chronic pain G89.29 [place] [address] [facility] [id number] [address] [place] [address] Aug, Cough R05 ; Rash R21 and Vinay h and nonspecific skin eruption R21 [place] [address] [facility] [id number] [address] [place] [address] Jul, Chronic pain G89.29 [place] [address] [place] [id number] [address] [place] [address] Jun, Chronic pain G89.29 ; Bronch itis J40 ; Essential hypertension I10 ; Depressive disorder, not elsewhere classified F32.9 ; GERD (gastroesophageal reflux disease) K21.9 and History of long-term use of multiple prescription drugs Z92.29 [place] [address] [address] Jun, Bronchitis J40 ; Chills R68. 83 and Sore throat J02.9 [place] [address] [address] May, [place] [address] [address] Apr, [facility] [address] [address] Apr, Acute mucoid otitis media of both ears H65.113 [place] [address] [address] Apr, Yeast dermatitis B37.2 and H ematuria R31.9 [place] [address] [address] Mar, [place] [address] [address] Mar, [place] [address] [address] Feb, Left anterior knee pain M25. 562 [place] [address] [address] Feb, Chronic pain G89.29 ; Essent ial hypertension I10 ; Depressive disorder, not elsewhere classified F32.9 ; GERD (gastroesophageal reflux disease) K21.9 and History of long-term use of multiple prescription drugs Z92.29 [place] [address] [address] Jan, [place] [address] [address] Jan, Well woman exam Z01.419 ; BM I 45.0-49.9, adult Z68.42 ; Family history of diabetes mellitus Z83.3 and Chronic pain G89.29 [place] [address] [address] December, Chronic pain G89.29 ; Essent ial hypertension I10 ; Depressive disorder, not elsewhere classified F32.9 ; GERD (gastroesophageal reflux disease) K21.9 ; 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 ; History of long-term use of multiple prescription drugs Z92.29 and Obesity E66.9 [place] [address] [address] Oct, [place] [address] [address] Oct, Well woman exam Z01.419 ; BM [...] smear Z12.4 and No natural teeth K00.0 [place] [address] [address] Oct, [address] [address] Sep, Chronic pain G89.29 ; Essent ial hypertension I10 ; GERD (gastroesophageal reflux disease) K21.9 ; 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 ; Skin infection L08.9 and History of long-term use of multiple prescription drugs Z92.29 [place] [address] [address] Aug, [place] [address] [address] Jul, [facility] [address] [place] [id number] [address] [place] [address] Jul, [facility] [address] [place] [id number] [address] [place] [address] Jul, Upper respiratory infection J06.9 [place] [address] [place] [id number] [address] [place] [address] Jul, Depressive disorder, not els ewhere classified F32.9 [facility] [address] [facility] [id number] [address] [place] [address] Jul, Chronic pain 338.29 [place] [address] [address] Jul, Chronic pain G89.29 [place] [address] [address] Jun, Poison josep L23.7 [place] [address] [place] [id number] [address] [place] [address] Jun, Allergic contact dermatitis due to plants, except food L23.7 [place] [address] [address] Jun, Essential hypertension I10 ; Chronic pain G89.29 ; GERD (gastroesophageal reflux disease) K21.9 and Numbness and tingling in hands R20.2 [place] [address] [place] [id number] [address] [place] [address] May, [place] [address] [place] [id number] [address] [place] [address] Apr, [place] [address] [address] Mar, [place] [address] [place] [id number] [address] [place] [address] Feb, Abdominal pain, left lateral 789.09 and Constipation 564.00 [place] [address] [address] Feb, Depressive disorder, not els ewhere classified 311 and No condition on [place] II V71.09 [facility] [address] [address] Feb, Spider bite 989.5 and Depres homar 311 [facility] [address] [address] Feb, [facility] [address] [address] Feb, Chronic pain 338.29 ; Arthro zonia 716.90 and GERD (gastroesophageal reflux disease) 530.81 [facility] [address] [address] Jan, Insect bites 919.4 [place] [address] [address] Jan, [facility] [address] [address] December, Skin infection, bacterial 68 6.9 ; Conjunctivitis 372.30 and Insect bites 919.4 [facility] [address] [place] [id number] [address] [place] [address] December, Chronic pain 338.29 ; Arthro zonia 716.90 ; Skin infection, bacterial 686.9 and Conjunctivitis 372.30 [facility] [address] [place] [id number] [address] [place] [address] December, [facility] [address] [place] [id number] [address] [place] [address] Nov, [facility] [address] [address] Nov, [facility] [address] [place] [id number] [address] [place] [address] Oct, [facility] [address] [place] [id number] [address] [place] [address] Oct, [facility] [address] [id number] [address] [place] [address], [place] [address] Sep, [facility] [address] [id number] [address] [place] [address], [place] [address] Sep, [facility] [address] [id number] [address] [place] [address], [place] [address] Aug, [facility] [address] [id number] [address] [place] [address], [place] [address] Aug, [facility] [address] [id number] [address] [place] [address], [place] [address] Aug, [facility] [address] [id number] [address] [place] [address], [place] [address] Aug, [facility] [address] [id number] [address] [place] [address], [place] [address] Jul, [facility] [address] [id number] [address] [place] [address], [place] [address] Jul, [facility] [address] [id number] [address] [place] [address], [place] [address] Jul, [facility] [address] [id number] [address] [place] [address], [place] [address] Jul, [facility] [address] [id number] [address] [place] [address], [place] [address] Jul, [facility] [address] [id number] [address] [place] [address], [place] [address] Jul, [facility] [address] [id number] [address] [place] [address], [place] [address] Jul, [facility] [address] [id number] [address] [place] [address], [place] [address] Jul, [facility] [address] [id number] [address] [place] [address], [place] [address] Jul, [facility] [address] [id number] [address] [place] [address], [place] [address] Jun, [facility] [address] [id number] [address] [place] [address], [place] [address] Jun, [facility] [address] [id number] [address] [place] [address], [place] [address] Jun, [facility] [address] [id number] [address] [place] [address], [place] [address] Jun, [facility] [address] [id number] [address] [place] [address], [place] [address] Jun, [facility] [address] [id number] [address] [place] [address], [place] [address] Jun, [facility] [address] [id number] [address] [place] [address], [place] [address] Jun, [facility] [address] [id number] [address] [place] [address], [place] [address] Jun, [facility] [address] [id number] [address] [place] [address], [place] [address] May, [facility] [address] [id number] [address] [place] [address], [place] [address] May, [facility] [address] [id number] [address] [place] [address], [place] [address] May, [facility] [address] [id number] [address] [place] [address], [place] [address] May, [facility] [address] [id number] [address] [place] [address], [place] [address] May, [facility] [address] [id number] [address] [place] [address], [place] [address] Apr, [facility] [address] [id number] [address] [place] [address], [place] [address] Apr, [facility] [address] [id number] [address] [place] [address], [place] [address] Apr, 2013 [facility] [address] [id number] [facility] [place] [address] Apr, 2013 [facility] [address] [id number] [address] [place] [address], [place] [address] Apr, [facility] [address] [id number] [address] [place] [address], [place] [address] Apr, 2013 [facility] [address] [id number] [address] [place] [address], [place] [address] Apr, 2013 [facility] [address] [id number] [address] [place] [address], [place] [address] Apr, [facility] [address] [id number] [address] [place] [address], [place] [address] Apr, [facility] [address] [id number] [address] [place] [address], [place] [address] Apr, [facility] [address] [id number] [address] [place] [address], [place] [address] Mar, [facility] [address] [id number] [address] [place] [address], [place] [address] Mar, [facility] [address] [id number] [address] [place] [address], [place] [address] Mar, [facility] [address] [id number] [address] [place] [address], [place] [address] Mar, [facility] [address] [id number] [address] [place] [address], [place] [address] Mar, [facility] [address] [id number] [address] [place] [address], [place] [address] Mar, [facility] [address] [id number] [address] [place] [address], [place] [address] Feb, [facility] [address] [id number] [address] [place] [address], [place] [address] Feb, [facility] [address] [id number] [address] [place] [address], [place] [address] Jan, [facility] [address] [id number] [address] [place] [address], [place] [address] Jan, [facility] [address] [id number] [address] [place] [address], [place] [address] Jan, [facility] [address] [id number] [address] [place] [address], [place] [address] Jan, [facility] [address] [id number] [address] [place] [address], [place] [address] December, [facility] [address] [id number] [address] [place] [address], [place] [address] December, [facility] [address] [id number] [address] [place] [address], [place] [address] December, [facility] [address] [id number] [address] [place] [address], [place] [address] December, [facility] [address] [id number] [address] [place] [address], [place] [address] December, [facility] [address] [id number] [address] [place] [address], [place] [address] December, [facility] [address] [id number] [address] [place] [address], [place] [address] December, [facility] [address] [id number] [address] [place] [address], [place] [address] December, [facility] [address] [id number] [address] [place] [address], [place] [address] December, [facility] [address] [id number] [address] [place] [address], [place] [address] Nov, [facility] [address] [id number] [address] [place] [address], [place] [address] Nov, [facility] [address] [id number] [address] [place] [address], [place] [address] Nov, [facility] [address] [id number] [address] [place] [address], [place] [address] Nov, [facility] [address] [id number] [address] [place] [address], [place] [address] Nov, [facility] [address] [id number] [address] [place] [address], [place] [address] Nov, [facility] [address] [id number] [address] [place] [address], [place] [address] Nov, [facility] [address] [id number] [address] [place] [address], [place] [address] Nov, [facility] [address] [id number] [address] [place] [address], [place] [address] Nov, [facility] [address] [id number] [address] [place] [address], [place] [address] Nov, [facility] [address] [id number] [address] [place] [address], [place] [address] Oct, [facility] [address] [id number] [address] [place] [address], [place] [address] Oct, [facility] [address] [id number] [address] [place] [address], [place] [address] Sep, [facility] [address] [id number] [address] [place] [address], [place] [address] Sep, [facility] [address] [id number] [address] [place] [address], [place] [address] Aug, [facility] [address] [id number] [address] [place] [address], [place] [address] Aug, [facility] [address] [id number] [address] [place] [address], [place] [address] Aug, [facility] [address] [id number] [address] [place] [address], [place] [address] Aug, [facility] [address] [id number] [address] [place] [address], [place] [address] Jul, [facility] [address] [id number] [address] [place] [address], [place] [address] Jul, [facility] [address] [id number] [address] [place] [address], [place] [address] Jul, [facility] [address] [id number] [address] [place] [address], [place] [address] Jul, [facility] [address] [id number] [address] [place] [address], [place] [address] Jun, [facility] [address] [id number] [address] [place] [address], [place] [address] Jun, [facility] [address] [id number] [address] [place] [address], [place] [address] May, [facility] [address] [id number] [address] [place] [address], [place] [address] May, [facility] [address] [id number] [address] [place] [address], [place] [address] May, [facility] [address] [id number] [address] [place] [address], [place] [address] May, [facility] [address] [id number] [address] [place] [address], [place] [address] May, [facility] [address] [id number] [address] [place] [address], [place] [address] May, [facility] [address] [id number] [address] [place] [address], [place] [address] 30 Apr, 2013 [facility] [address] [id number] [address] [place] [address], [place] [address] 23 Apr, 2013 [facility] [address] [id number] [address] [place] [address], [place] [address] Apr, [facility] [address] [id number] [address] [place] [address], [place] [address] Feb, [facility] [address] [id number] [facility] [place] [address] 27 Jan, 2013 [facility] [address] [id number] [address] [place] [address], [place] [address] 18 Jan, 2013 [facility] [address] [id number] [address] [place] [address], [place] [address] 17 Jan, 2013 [facility] [address] [id number] [address] [place] [address], [place] [address] 14 Jan, 2013 [facility] [address] [id number] [address] [place] [address], [place] [address] 30 Dec, 2012 [facility] [address] [id number] [address] [place] [address], [place] [address] December, [facility] [address] [id number] [address] [place] [address], [place] [address] 24 Nov, 2012 [facility] [address] [id number] [address] [place] [address], [place] [address] 23 Nov, 2012 [facility] [address] [id number] [address] [place] [address], [place] [address] Nov, [facility] [address] [id number] [address] [place] [address], [place] [address] Nov, [facility] [address] [id number] [address] [place] [address], [place] [address] 08 Nov, 2012 [facility] [address] [id number] [address] [place] [address], [place] [address] 08 Nov, 2012 [facility] [address] [id number] [address] [place] [address], [place] [address] 03 Nov, 2012 [facility] [address] [id number] [address] [place] [address], [place] [address] 27 Oct, 2012 [facility] [address] [id number] [address] [place] [address], [place] [address] 18 Oct, 2012 [facility] [address] [id number] [address] [place] [address], [place] [address] 14 Oct, 2012 [facility] [address] [id number] [facility] [place] [address] 13 Oct, 2012 [facility] [address] [id number] [address] [place] [address], [place] [address] 12 Oct, 2012 [facility] [address] [id number] [address] [place] [address], [place] [address] 11 Oct, 2012 [facility] [address] [id number] [address] [place] [address], [place] [address] 08 Oct, 2012 [facility] [address] [id number] [address] [place] [address], [place] [address] 20 Sep, 2012 [facility] [address] [id number] [address] [place] [address], [place] [address] Sep, [facility] [address] [id number] [address] [place] [address], [place] [address] Aug, [facility] [address] [id number] [address] [place] [address], [place] [address] Aug, [facility] [address] [id number] [address] [place] [address], [place] [address] Jul, [facility] [address] [id number] [address] [place] [address], [place] [address] Jul, [facility] [address] [id number] [address] [place] [address], [place] [address] Jul, [facility] [address] [id number] [address] [place] [address], [place] [address] Jul, [facility] [address] [id number] [address] [place] [address], [place] [address] Jul, [facility] [address] [id number] [address] [place] [address], [place] [address] Jul, [facility] [address] [id number] [address] [place] [address], [place] [address] Jul, [facility] [address] [id number] [address] [place] [address] Jul, [facility] [address] [facility] [id number] [address] [place] [address] Jun, [facility] [address] [facility] [id number] [address] [place] [address] Jun, IMMUNIZATIONS No Known Immunizations SOCIAL HISTORY [...]
--- OUTSIDE RECORDS SUMMARY | 2020-02-11 03:17 | XMS REPORT ---
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 Name Role Phone KWESIKennedy DANG Unavailable PROBLEMS Type Condition ICD9-CM Code QWC79-OR Code Onset Dates Condition S tatus SNOMED Code Problem GERD (gastroesophageal reflux disease) K21.9 Active 526143716 Problem Numbness and tingling in hands R20.2 Active 709913717 Problem History of abnormal cervical Pap smear Z87.898 Active 512956567 Problem Chronic recurrent major depressive disorder F33.9 Active 5581728 Problem Chronic pain G89.29 Active 9619978 1 Problem Morbid obesity due to excess calories E66.01 Active 383401216 Problem Pre-diabetes R73.09 Active 5112301 02 Problem Stasis dermatitis of both legs I87.2 Active 27416898 Problem BMI 45.0-49.9, adult Z68.42 Active 988537474 Problem Essential hypertension I10 Active 23142931 Problem Primary insomnia F51.01 Active 397 2004 ALLERGIES No Information ENCOUNTERS Encounter Location Date Diagnosis [facility] [address] [facility] [id number] [address] [place] [address] Apr, [facility] [address] [place] [id number] [address] [place] [address] Mar, Chronic pain G89.29 and BMI 45.0-49.9, adult Z68.42 [facility] [address] [facility] [id number] [address] [place] [address] Mar, Morbid obesity E66.01 ; Supervisor [place] david recurrent major depressive disorder F33.9 ; Morbid obesity due to excess calories E66.01 and High risk medication use Z79.899 [facility] [address] [id number] [address] [place] [address] Mar, Chronic pain G89.29 and BMI 45.0-49.9, adult Z68.42 [facility] [address] [id number] [address] [place] [address] Feb, [facility] [address] [facility] [id number] [address] [place] [address] Feb, Chronic pain G89.29 and BMI 45.0-49.9, adult Z68.42 [facility] [address] [place] [id number] [address] [place] [address] Jan, [place] [address] [id number] [address] [place] [address] Jan, Chronic pain G89.29 and BMI 45.0-49.9, adult Z68.42 [place] [address] [place] [id number] [address] [place] [address] Jan, [facility] [address] [place] [id number] [address] [place] [address] December, Chronic pain G89.29 and BMI 45.0-49.9, adult Z68.42 [place] [address] [place] [id number] [address] [place] [address] Nov, Morbid obesity E66.01 and Ce llulitis of leg, left L03.116 [place] [address] [place] [id number] [address] [place] [address] Nov, Cellulitis of left lower ext remity L03.116 and Morbid obesity E66.01 [facility] [address] [facility] [id number] [address] [place] [address] Nov, [place] [address] [place] [id number] [address] [place] [address] Nov, Morbid obesity E66.01 and Ce llulitis of left lower extremity L03.116 [facility] [address] [place] [id number] [address] [place] [address] Nov, Chronic pain G89.29 and BMI 45.0-49.9, adult Z68.42 [place] [address] [id number] [place] [address] Oct, BMI 45.0-49.9, adult Z68.42 and Chronic pain G89.29 [place] [address] [place] [id number] [address] [place] [address] 14 Sep, 2018 BMI 45.0-49.9, adult Z68.42 and Chronic pain G89.29 [place] [address] [place] [id number] [address] [place] [id number] 05 Sep, 2018 BMI 45.0-49.9, adult Z68.42 and Essential hypertension I10 [place] [address] [id number] [place] [address] Aug, BMI 45.0-49.9, adult Z68.42 ; Chronic pain G89.29 ; Essential hypertension I10 and Primary insomnia F51.01 [place] [address] [place] [id number] [address] [place] [address] Aug, Chronic pain G89.29 [place] [address] [place] [id number] [address] [place] [address] Jul, Chronic pain G89.29 [place] [address] [place] [id number] [address] [place] [address] Jun, Chronic pain G89.29 [place] [address] [place] [id number] [address] [place] [address] May, Chronic pain G89.29 [place] [address] [id number] [address] [place] [address] May, BMI 40.0-44.9, adult Z68.41 ; Other chronic pain G89.29 ; Pain in right hip M25.551 and Acute pain of left knee M25.562 [place] [address] [place] [id number] [address] [place] [address] May, Chronic pain G89.29 [facility] [address] [id number] [address] [place] [address] Apr, Chronic pain G89.29 [facility] [address] [facility] [id number] [address] [place] [address] Mar, Poison josep L23.7 [facility] [address] [facility] [id number] [address] [place] [address] Mar, Chronic pain G89.29 [facility] [address] [id number] [address] [place] [address] Feb, Chronic pain G89.29 [facility] [address] [facility] [id number] [address] [place] [address] Feb, Poison josep L23.7 [facility] [address] [facility] [id number] [address] [place] [address] Jan, Chronic pain G89.29 [facility] [address] [facility] [id number] [address] [place] [address] December, Chronic pain G89.29 [facility] [address] [facility] [id number] [address] [place] [address] Nov, Long-term use of high-risk m edication Z79.899 [facility] [address] [facility] [id number] [address] [place] [address] Nov, Chronic pain G89.29 [facility] [address] [facility] [id number] [address] [place] [address] Oct, Chronic pain G89.29 ; Pre-di abetes R73.09 ; Long-term use of high- risk medication Z79.899 ; Allergic rhinitis, unspecified seasonality, unspecified trigger J30.9 ; BMI 45.0-49.9, adult Z68.42 and Essential hypertension I10 [facility] [address] [facility] [id number] [address] [place] [address] Oct, Chronic pain G89.29 [facility] [address] [facility] [id number] [address] [place] [address] Sep, Chronic pain G89.29 [facility] [address] [facility] [id number] [address] [place] [address] Aug, Chronic pain G89.29 [facility] [address] [place] [id number] [address] [place] [address] Jul, [facility] [address] [place] [id number] [address] [place] [address] Jul, [facility] [address] [place] [id number] [place] [address] Jun, Chronic pain G89.29 ; BMI 45 .0-49.9, adult Z68.42 ; Pre-diabetes R73.09 ; Essential hypertension I10 ; GERD (gastroesophageal reflux disease) K21.9 ; Yeast dermatitis B37.2 ; Dysuria R30.0 ; Acute non-recurrent maxillary sinusitis J01.00 and Acute cystitis with hematuria N30.01 [facility] [address] [place] [id number] [address] [place] [address] Jun, Chronic pain G89.29 [facility] [address] [place] [id number] [address] [place] [address] Jun, Acute non-recurrent maxillar y sinusitis J01.00 and BMI 45.0-49.9, adult Z68.42 [facility] [address] [place] [id number] [address] [place] [address] May, [facility] [address] [place] [id number] [address] [place] [address] May, Chronic pain G89.29 [facility] [address] [place] [id number] [address] [place] [address] May, [facility] [address] [place] [id number] [address] [place] [address] Apr, Chronic pain G89.29 [facility] [address] [facility] [id number] [address] [place] [address] Mar, [place] [address] [place] [place] [id number] [address] [place] [address] Mar, Essential hypertension I10 a nd Pre-diabetes R73.09 [place] [address] [place] [id number] [address] [place] [address] 15 Mar, 2017 Chronic pain G89.29 ; Essent ial hypertension I10 ; Depressive disorder, not elsewhere classified F32.9 ; GERD (gastroesophageal reflux disease) K21.9 ; Pre-diabetes R73.09 ; Stasis dermatitis of both legs I87.2 and Acute non-recurrent maxillary sinusitis J01.00 [place] [address] [facility] [id number] [address] [place] [address] 11 Mar, 2017 Chronic pain G89.29 [place] [id number] [place] [address] Mar, Achilles tendinitis of right lower extremity M76.61 and Tinea corporis B35.4 [place] [address] [facility] [id number] [address] [place] [phone] 17 Feb, 2017 Yeast dermatitis B37.2 [place] [address] [facility] [id number] [address] [place] [address] 14 Feb, 2017 Candidal intertrigo B37.2 an d Acute right ankle pain M25.571 [place] [address] [facility] [id number] [address] [place] [address] Feb, Chronic pain G89.29 [place] [address] [facility] [id number] [address] [place] [address] Jan, [place] [address] [place] [id number] [address] [place] [address] Jan, Chronic pain G89.29 [place] [address] [place] [id number] [address] [place] [address] December, Chronic pain G89.29 ; Essent ial hypertension I10 ; Depressive disorder, not elsewhere classified F32.9 ; GERD (gastroesophageal reflux disease) K21.9 ; Pre-diabetes R73.09 ; Screening breast examination Z12.39 ; Stasis dermatitis of both legs I87.2 and Yeast dermatitis B37.2 [place] [address] [facility] [id number] [address] [place] [address] Nov, Chronic pain G89.29 [place] [address] [facility] [id number] [address] [place] [address] Nov, Cellulitis of left lower ext remity L03.116 [place] [address] [facility] [id number] [address] [place] [address] Nov, Cellulitis of left lower ext remity L03.116 [place] [address] [facility] [id number] [address] [place] [address] Oct, Yeast dermatitis B37.2 [place] [address] [facility] [id number] [address] [place] [address] Oct, Chronic pain G89.29 [place] [address] [facility] [id number] [address] [place] [address] Sep, Chronic pain G89.29 ; Essent ial hypertension I10 ; Depressive disorder, not elsewhere classified F32.9 and GERD (gastroesophageal reflux disease) K21.9 [place] [address] [facility] [id number] [address] [place] [address] Aug, Chronic pain G89.29 [place] [address] [facility] [id number] [address] [place] [address] Aug, Cough R05 ; Rash R21 and Vinay h and nonspecific skin eruption R21 [place] [address] [facility] [id number] [address] [place] [address] Jul, Chronic pain G89.29 [place] [address] [place] [id number] [address] [place] [address] Jun, Chronic pain G89.29 ; Bronch itis J40 ; Essential hypertension I10 ; Depressive disorder, not elsewhere classified F32.9 ; GERD (gastroesophageal reflux disease) K21.9 and History of long-term use of multiple prescription drugs Z92.29 [place] [address] [address] Jun, Bronchitis J40 ; Chills R68. 83 and Sore throat J02.9 [place] [address] [address] May, [place] [address] [address] Apr, [facility] [address] [address] Apr, Acute mucoid otitis media of both ears H65.113 [place] [address] [address] Apr, Yeast dermatitis B37.2 and H ematuria R31.9 [place] [address] [address] Mar, [place] [address] [address] Mar, [place] [address] [address] Feb, Left anterior knee pain M25. 562 [place] [address] [address] Feb, Chronic pain G89.29 ; Essent ial hypertension I10 ; Depressive disorder, not elsewhere classified F32.9 ; GERD (gastroesophageal reflux disease) K21.9 and History of long-term use of multiple prescription drugs Z92.29 [place] [address] [address] Jan, [place] [address] [address] Jan, Well woman exam Z01.419 ; BM I 45.0-49.9, adult Z68.42 ; Family history of diabetes mellitus Z83.3 and Chronic pain G89.29 [place] [address] [address] December, Chronic pain G89.29 ; Essent ial hypertension I10 ; Depressive disorder, not elsewhere classified F32.9 ; GERD (gastroesophageal reflux disease) K21.9 ; 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 ; History of long-term use of multiple prescription drugs Z92.29 and Obesity E66.9 [place] [address] [address] Oct, [place] [address] [address] Oct, Well woman exam Z01.419 ; BM [...] smear Z12.4 and No natural teeth K00.0 [place] [address] [address] Oct, [address] [address] Sep, Chronic pain G89.29 ; Essent ial hypertension I10 ; GERD (gastroesophageal reflux disease) K21.9 ; 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 ; Skin infection L08.9 and History of long-term use of multiple prescription drugs Z92.29 [place] [address] [address] Aug, [place] [address] [address] Jul, [facility] [address] [place] [id number] [address] [place] [address] Jul, [facility] [address] [place] [id number] [address] [place] [address] Jul, Upper respiratory infection J06.9 [place] [address] [place] [id number] [address] [place] [address] Jul, Depressive disorder, not els ewhere classified F32.9 [facility] [address] [facility] [id number] [address] [place] [address] Jul, Chronic pain 338.29 [place] [address] [address] Jul, Chronic pain G89.29 [place] [address] [address] Jun, Poison josep L23.7 [place] [address] [place] [id number] [address] [place] [address] Jun, Allergic contact dermatitis due to plants, except food L23.7 [place] [address] [address] Jun, Essential hypertension I10 ; Chronic pain G89.29 ; GERD (gastroesophageal reflux disease) K21.9 and Numbness and tingling in hands R20.2 [place] [address] [place] [id number] [address] [place] [address] May, [place] [address] [place] [id number] [address] [place] [address] Apr, [place] [address] [address] Mar, [place] [address] [place] [id number] [address] [place] [address] Feb, Abdominal pain, left lateral 789.09 and Constipation 564.00 [place] [address] [address] Feb, Depressive disorder, not els ewhere classified 311 and No condition on [place] II V71.09 [facility] [address] [address] Feb, Spider bite 989.5 and Depres homar 311 [facility] [address] [address] Feb, [facility] [address] [address] Feb, Chronic pain 338.29 ; Arthro zonia 716.90 and GERD (gastroesophageal reflux disease) 530.81 [facility] [address] [address] Jan, Insect bites 919.4 [place] [address] [address] Jan, [facility] [address] [address] December, Skin infection, bacterial 68 6.9 ; Conjunctivitis 372.30 and Insect bites 919.4 [facility] [address] [place] [id number] [address] [place] [address] December, Chronic pain 338.29 ; Arthro zonia 716.90 ; Skin infection, bacterial 686.9 and Conjunctivitis 372.30 [facility] [address] [place] [id number] [address] [place] [address] December, [facility] [address] [place] [id number] [address] [place] [address] Nov, [facility] [address] [address] Nov, [facility] [address] [place] [id number] [address] [place] [address] Oct, [facility] [address] [place] [id number] [address] [place] [address] Oct, [facility] [address] [id number] [address] [place] [address], [place] [address] Sep, [facility] [address] [id number] [address] [place] [address], [place] [address] Sep, [facility] [address] [id number] [address] [place] [address], [place] [address] Aug, [facility] [address] [id number] [address] [place] [address], [place] [address] Aug, [facility] [address] [id number] [address] [place] [address], [place] [address] Aug, [facility] [address] [id number] [address] [place] [address], [place] [address] Aug, [facility] [address] [id number] [address] [place] [address], [place] [address] Jul, [facility] [address] [id number] [address] [place] [address], [place] [address] Jul, [facility] [address] [id number] [address] [place] [address], [place] [address] Jul, [facility] [address] [id number] [address] [place] [address], [place] [address] Jul, [facility] [address] [id number] [address] [place] [address], [place] [address] Jul, [facility] [address] [id number] [address] [place] [address], [place] [address] Jul, [facility] [address] [id number] [address] [place] [address], [place] [address] Jul, [facility] [address] [id number] [address] [place] [address], [place] [address] Jul, [facility] [address] [id number] [address] [place] [address], [place] [address] Jul, [facility] [address] [id number] [address] [place] [address], [place] [address] Jun, [facility] [address] [id number] [address] [place] [address], [place] [address] Jun, [facility] [address] [id number] [address] [place] [address], [place] [address] Jun, [facility] [address] [id number] [address] [place] [address], [place] [address] Jun, [facility] [address] [id number] [address] [place] [address], [place] [address] Jun, [facility] [address] [id number] [address] [place] [address], [place] [address] Jun, [facility] [address] [id number] [address] [place] [address], [place] [address] Jun, [facility] [address] [id number] [address] [place] [address], [place] [address] Jun, [facility] [address] [id number] [address] [place] [address], [place] [address] May, [facility] [address] [id number] [address] [place] [address], [place] [address] May, [facility] [address] [id number] [address] [place] [address], [place] [address] May, [facility] [address] [id number] [address] [place] [address], [place] [address] May, [facility] [address] [id number] [address] [place] [address], [place] [address] May, [facility] [address] [id number] [address] [place] [address], [place] [address] Apr, [facility] [address] [id number] [address] [place] [address], [place] [address] Apr, [facility] [address] [id number] [address] [place] [address], [place] [address] Apr, 2013 [facility] [address] [id number] [facility] [place] [address] Apr, 2013 [facility] [address] [id number] [address] [place] [address], [place] [address] Apr, [facility] [address] [id number] [address] [place] [address], [place] [address] Apr, 2013 [facility] [address] [id number] [address] [place] [address], [place] [address] Apr, 2013 [facility] [address] [id number] [address] [place] [address], [place] [address] Apr, [facility] [address] [id number] [address] [place] [address], [place] [address] Apr, [facility] [address] [id number] [address] [place] [address], [place] [address] Apr, [facility] [address] [id number] [address] [place] [address], [place] [address] Mar, [facility] [address] [id number] [address] [place] [address], [place] [address] Mar, [facility] [address] [id number] [address] [place] [address], [place] [address] Mar, [facility] [address] [id number] [address] [place] [address], [place] [address] Mar, [facility] [address] [id number] [address] [place] [address], [place] [address] Mar, [facility] [address] [id number] [address] [place] [address], [place] [address] Mar, [facility] [address] [id number] [address] [place] [address], [place] [address] Feb, [facility] [address] [id number] [address] [place] [address], [place] [address] Feb, [facility] [address] [id number] [address] [place] [address], [place] [address] Jan, [facility] [address] [id number] [address] [place] [address], [place] [address] Jan, [facility] [address] [id number] [address] [place] [address], [place] [address] Jan, [facility] [address] [id number] [address] [place] [address], [place] [address] Jan, [facility] [address] [id number] [address] [place] [address], [place] [address] December, [facility] [address] [id number] [address] [place] [address], [place] [address] December, [facility] [address] [id number] [address] [place] [address], [place] [address] December, [facility] [address] [id number] [address] [place] [address], [place] [address] December, [facility] [address] [id number] [address] [place] [address], [place] [address] December, [facility] [address] [id number] [address] [place] [address], [place] [address] December, [facility] [address] [id number] [address] [place] [address], [place] [address] December, [facility] [address] [id number] [address] [place] [address], [place] [address] December, [facility] [address] [id number] [address] [place] [address], [place] [address] December, [facility] [address] [id number] [address] [place] [address], [place] [address] Nov, [facility] [address] [id number] [address] [place] [address], [place] [address] Nov, [facility] [address] [id number] [address] [place] [address], [place] [address] Nov, [facility] [address] [id number] [address] [place] [address], [place] [address] Nov, [facility] [address] [id number] [address] [place] [address], [place] [address] Nov, [facility] [address] [id number] [address] [place] [address], [place] [address] Nov, [facility] [address] [id number] [address] [place] [address], [place] [address] Nov, [facility] [address] [id number] [address] [place] [address], [place] [address] Nov, [facility] [address] [id number] [address] [place] [address], [place] [address] Nov, [facility] [address] [id number] [address] [place] [address], [place] [address] Nov, [facility] [address] [id number] [address] [place] [address], [place] [address] Oct, [facility] [address] [id number] [address] [place] [address], [place] [address] Oct, [facility] [address] [id number] [address] [place] [address], [place] [address] Sep, [facility] [address] [id number] [address] [place] [address], [place] [address] Sep, [facility] [address] [id number] [address] [place] [address], [place] [address] Aug, [facility] [address] [id number] [address] [place] [address], [place] [address] Aug, [facility] [address] [id number] [address] [place] [address], [place] [address] Aug, [facility] [address] [id number] [address] [place] [address], [place] [address] Aug, [facility] [address] [id number] [address] [place] [address], [place] [address] Jul, [facility] [address] [id number] [address] [place] [address], [place] [address] Jul, [facility] [address] [id number] [address] [place] [address], [place] [address] Jul, [facility] [address] [id number] [address] [place] [address], [place] [address] Jul, [facility] [address] [id number] [address] [place] [address], [place] [address] Jun, [facility] [address] [id number] [address] [place] [address], [place] [address] Jun, [facility] [address] [id number] [address] [place] [address], [place] [address] May, [facility] [address] [id number] [address] [place] [address], [place] [address] May, [facility] [address] [id number] [address] [place] [address], [place] [address] May, [facility] [address] [id number] [address] [place] [address], [place] [address] May, [facility] [address] [id number] [address] [place] [address], [place] [address] May, [facility] [address] [id number] [address] [place] [address], [place] [address] May, [facility] [address] [id number] [address] [place] [address], [place] [address] 30 Apr, 2013 [facility] [address] [id number] [address] [place] [address], [place] [address] 23 Apr, 2013 [facility] [address] [id number] [address] [place] [address], [place] [address] Apr, [facility] [address] [id number] [address] [place] [address], [place] [address] Feb, [facility] [address] [id number] [facility] [place] [address] 27 Jan, 2013 [facility] [address] [id number] [address] [place] [address], [place] [address] 18 Jan, 2013 [facility] [address] [id number] [address] [place] [address], [place] [address] 17 Jan, 2013 [facility] [address] [id number] [address] [place] [address], [place] [address] 14 Jan, 2013 [facility] [address] [id number] [address] [place] [address], [place] [address] 30 Dec, 2012 [facility] [address] [id number] [address] [place] [address], [place] [address] December, [facility] [address] [id number] [address] [place] [address], [place] [address] 24 Nov, 2012 [facility] [address] [id number] [address] [place] [address], [place] [address] 23 Nov, 2012 [facility] [address] [id number] [address] [place] [address], [place] [address] Nov, [facility] [address] [id number] [address] [place] [address], [place] [address] Nov, [facility] [address] [id number] [address] [place] [address], [place] [address] 08 Nov, 2012 [facility] [address] [id number] [address] [place] [address], [place] [address] 08 Nov, 2012 [facility] [address] [id number] [address] [place] [address], [place] [address] 03 Nov, 2012 [facility] [address] [id number] [address] [place] [address], [place] [address] 27 Oct, 2012 [facility] [address] [id number] [address] [place] [address], [place] [address] 18 Oct, 2012 [facility] [address] [id number] [address] [place] [address], [place] [address] 14 Oct, 2012 [facility] [address] [id number] [facility] [place] [address] 13 Oct, 2012 [facility] [address] [id number] [address] [place] [address], [place] [address] 12 Oct, 2012 [facility] [address] [id number] [address] [place] [address], [place] [address] 11 Oct, 2012 [facility] [address] [id number] [address] [place] [address], [place] [address] 08 Oct, 2012 [facility] [address] [id number] [address] [place] [address], [place] [address] 20 Sep, 2012 [facility] [address] [id number] [address] [place] [address], [place] [address] Sep, [facility] [address] [id number] [address] [place] [address], [place] [address] Aug, [facility] [address] [id number] [address] [place] [address], [place] [address] Aug, [facility] [address] [id number] [address] [place] [address], [place] [address] Jul, [facility] [address] [id number] [address] [place] [address], [place] [address] Jul, [facility] [address] [id number] [address] [place] [address], [place] [address] Jul, [facility] [address] [id number] [address] [place] [address], [place] [address] Jul, [facility] [address] [id number] [address] [place] [address], [place] [address] Jul, [facility] [address] [id number] [address] [place] [address], [place] [address] Jul, [facility] [address] [id number] [address] [place] [address], [place] [address] Jul, [facility] [address] [id number] [address] [place] [address] Jul, [facility] [address] [facility] [id number] [address] [place] [address] Jun, [facility] [address] [facility] [id number] [address] [place] [address] Jun, IMMUNIZATIONS No Known Immunizations SOCIAL HISTORY Never Assessed REASON FOR VISIT PLAN OF CARE VITAL SIGNS Height 62 in 2014-03-21 Weight 243 lbs 2014-03-21 Temperature 98.2 degrees Fahrenheit 2014-03-21 Heart Rate 100 bpm 2014-03-21 Respiratory Rate 20 2014-03-21 Blood pressure systolic 120 mmHg 2014-03-21 Blood pressure diastolic 86 mmHg 2014-03-21 MEDICATIONS Unknown Medications RESULTS No Results PROCEDURES Procedure Date Ordered Result Body Site X-RAY EXAM OF KNEE, 1 OR 2 Mar 21, 2014 INSTRUCTIONS MEDICATIONS ADMINISTERED No Known Medications [...]
--- OUTSIDE RECORDS SUMMARY | 2020-02-11 03:18 | XMS REPORT ---
Author Author Madeline Magdaleno Doctor Organization [facility] Address Unknown Phone Unavailable Care Team Providers Care Equipment Cleaner Name Role Phone Migration, Doctor Unavailable Unavailable PROBLEMS Type Condition ICD9-CM Code TCX34-HQ Code Onset Dates Condition S tatus SNOMED Code Problem GERD (gastroesophageal reflux disease) K21.9 Active 494026808 Problem Numbness and tingling in hands R20.2 Active 160250905 Problem History of abnormal cervical Pap smear Z87.898 Active 386205143 Problem Chronic recurrent major depressive disorder F33.9 Active 5797065 Problem Chronic pain G89.29 Active 2509671 1 Problem Morbid obesity due to excess calories E66.01 Active 976345995 Problem Pre-diabetes R73.09 Active 3832902 02 Problem Stasis dermatitis of both legs I87.2 Active 72345936 Problem BMI 45.0-49.9, adult Z68.42 Active 636090742 Problem Essential hypertension I10 Active 22252148 Problem Primary insomnia F51.01 Active 397 2004 ALLERGIES No Information ENCOUNTERS Encounter Location Date Diagnosis [place] [address] [place] [address] Mar, Morbid obesity E66.01 ; 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 ; Morbid obesity due to excess calories E66.01 and High risk medication use Z79.899 [place] [address] [place] [id number] [place] [phone] Mar, Chronic pain G89.29 and BMI 45.0-49.9, adult Z68.42 [place] [address] [place] [id number] [place] [address] Feb, [place] [address] [place] [id number] [place] [address] Feb, Chronic pain G89.29 and BMI 45.0-49.9, adult Z68.42 [place] [address] [place] [address] 11 Jan, 2019 [place] [address] [address] 10 Jan, 2019 Chronic pain G89.29 and BMI 45.0-49.9, adult Z68.42 [place] [address] [address] Jan, [place] [address] [address] December, Chronic pain G89.29 and BMI 45.0-49.9, adult Z68.42 [place] [address] [address] 24 Nov, 2018 Morbid obesity E66.01 and Ce llulitis of leg, left L03.116 [place] [address] [address] 15 Nov, 2018 Cellulitis of left lower ext remity L03.116 and Morbid obesity E66.01 [facility] [address] [address] Nov, [place] [address] [address] Nov, Morbid obesity E66.01 and Ce llulitis of left lower extremity L03.116 [place] [address] [address] Nov, Chronic pain G89.29 and BMI 45.0-49.9, adult Z68.42 [place] [address] [address] 18 Oct, 2018 BMI 45.0-49.9, adult Z68.42 and Chronic pain G89.29 [place] [address] [place] [id number] [place] [address] 14 Sep, 2018 BMI 45.0-49.9, adult Z68.42 and Chronic pain G89.29 [facility] [address] [facility] [id number] [address] [place] [address] Sep, BMI 45.0-49.9, adult Z68.42 and Essential hypertension I10 [facility] [address] [facility] [id number] [address] [place] [address] Aug, BMI 45.0-49.9, adult Z68.42 ; Chronic pain G89.29 ; Essential hypertension I10 and Primary insomnia F51.01 [facility] [address] [facility] [id number] [address] [place] [address] Aug, Chronic pain G89.29 [facility] [address] [facility] [id number] [address] [place] [address] Jul, Chronic pain G89.29 [place] [address] [facility] [id number] [address] [place] [address] Jun, Chronic pain G89.29 [facility] [address] [facility] [id number] [address] [place] [address] May, Chronic pain G89.29 [facility] [address] [facility] [id number] [address] [place] [address] May, BMI 40.0-44.9, adult Z68.41 ; Other chronic pain G89.29 ; Pain in right hip M25.551 and Acute pain of left knee M25.562 [facility] [address] [facility] [id number] [address] [place] [address] May, Chronic pain G89.29 [facility] [address] [facility] [id number] [address] [place] [address] Apr, Chronic pain G89.29 [facility] [address] [facility] [id number] [address] [place] [address] Mar, Poison josep L23.7 [facility] [address] [facility] [id number] [address] [place] [address] Mar, Chronic pain G89.29 [facility] [address] [facility] [id number] [address] [place] [address] Feb, Chronic pain G89.29 [facility] [address] [facility] [id number] [address] [place] [address] Feb, Poison josep L23.7 [facility] [address] [facility] [id number] [address] [place] [address] Jan, Chronic pain G89.29 [facility] [address] [facility] [id number] [address] [place] [address] December, Chronic pain G89.29 [facility] [address] [facility] [id number] [address] [place] [address] Nov, Long-term use of high-risk m edication Z79.899 [facility] [address] [facility] [id number] [address] [place] [address] Nov, Chronic pain G89.29 [facility] [address] [facility] [id number] [address] [place] [address] Oct, Chronic pain G89.29 ; Pre-di abetes R73.09 ; Long-term use of high- risk medication Z79.899 ; Allergic rhinitis, unspecified seasonality, unspecified trigger J30.9 ; BMI 45.0-49.9, adult Z68.42 and Essential hypertension I10 [facility] [address] [facility] [id number] [address] [place] [address] Oct, Chronic pain G89.29 [facility] [address] [facility] [id number] [address] [place] [address] Sep, Chronic pain G89.29 [facility] [address] [facility] [id number] [address] [place] [address] Aug, Chronic pain G89.29 [facility] [address] [facility] [id number] [address] [place] [phone] Jul, [place] [address] [facility] [id number] [address] [place] [address] Jul, [place] [address] [facility] [id number] [address] [place] [address] Jun, Chronic pain G89.29 ; BMI 45 .0-49.9, adult Z68.42 ; Pre-diabetes R73.09 ; Essential hypertension I10 ; GERD (gastroesophageal reflux disease) K21.9 ; Yeast dermatitis B37.2 ; Dysuria R30.0 ; Acute non-recurrent maxillary sinusitis J01.00 and Acute cystitis with hematuria N30.01 [place] [address] [facility] [id number] [address] [place] [address] Jun, Chronic pain G89.29 [place] [address] [place] [id number] [place] [address] Jun, Acute non-recurrent maxillar y sinusitis J01.00 and BMI 45.0-49.9, adult Z68.42 [place] [address] [place] [id number] [place] [address] May, [place] [address] [facility] [id number] [address] [place] [address] May, Chronic pain G89.29 [place] [address] [facility] [id number] [address] [place] [address] May, [place] [address] [place] [id number] [place] [address] Apr, Chronic pain G89.29 [place] [address] [facility] [id number] [address] [place] [address] Mar, [place] [address] [place] [id number] [place] [id number] Mar, Essential hypertension I10 a nd Pre-diabetes R73.09 [facility] [address] [place] [id number] [place] [address] Mar, Chronic pain G89.29 ; Essent ial hypertension I10 ; Depressive disorder, not elsewhere classified F32.9 ; GERD (gastroesophageal reflux disease) K21.9 ; Pre-diabetes R73.09 ; Stasis dermatitis of both legs I87.2 and Acute non-recurrent maxillary sinusitis J01.00 [place] [address] [facility] [id number] [address] [place] [address] Mar, Chronic pain G89.29 [place] [address] [facility] [id number] [address] [place] [address] Mar, Achilles tendinitis of right lower extremity M76.61 and Tinea corporis B35.4 [place] [address] [facility] [id number] [address] [place] [phone] Feb, Yeast dermatitis B37.2 [place] [address] [facility] [id number] [address] [place] [address] Feb, Candidal intertrigo B37.2 an d Acute right ankle pain M25.571 [place] [address] [place] [id number] [place] [address] Feb, Chronic pain G89.29 [place] [address] [place] [id number] [place] [address] Jan, [place] [address] [facility] [id number] [address] [place] [address] Jan, Chronic pain G89.29 [place] [address] [place] [id number] [place] [address] December, Chronic pain G89.29 ; Essent ial hypertension I10 ; Depressive disorder, not elsewhere classified F32.9 ; GERD (gastroesophageal reflux disease) K21.9 ; Pre-diabetes R73.09 ; Screening breast examination Z12.39 ; Stasis dermatitis of both legs I87.2 and Yeast dermatitis B37.2 [place] [address] [facility] [id number] [address] [place] [address] Nov, Chronic pain G89.29 [place] [address] [facility] [address] [place] [address] Nov, Cellulitis of left lower ext remity L03.116 [place] [address] [address] Nov, Cellulitis of left lower ext remity L03.116 [place] [address] [address] Oct, Yeast dermatitis B37.2 [place] [address] [address] Oct, Chronic pain G89.[address] [address] Sep, Chronic pain G89.29 ; Essent ial hypertension I10 ; Depressive disorder, not elsewhere classified F32.9 and GERD (gastroesophageal reflux disease) K21.[address] [address] Aug, Chronic pain G89.[address] [address] Aug, Cough R05 ; Rash R21 and Vinay h and nonspecific skin eruption R21 [address] [address] Jul, Chronic pain G89.[address] [address] Jun, Chronic pain G89.29 ; Bronch itis J40 ; Essential hypertension I10 ; Depressive disorder, not elsewhere classified F32.9 ; GERD (gastroesophageal reflux disease) K21.9 and History of long-term use of multiple prescription drugs Z92.[address] [address] Jun, Bronchitis J40 ; Chills R68. 83 and Sore throat J02.[address] [address] May, [facility] [address] [place] [id number] [place] [address] Apr, [facility] [address] [facility] [id number] [address] [place] [address] Apr, Acute mucoid otitis media of both ears H65.113 [place] [address] [address] 07 Apr, 2016 Yeast dermatitis B37.2 and H ematuria R31.9 [facility] [address] [place] [id number] [place] [phone] Mar, [place] [address] [place] [id number] [place] [address] Mar, [place] [address] [address] Feb, Left anterior knee pain M25. 562 [place] [address] [place] [id number] [place] [phone] Feb, Chronic pain G89.29 ; Essent ial hypertension I10 ; Depressive disorder, not elsewhere classified F32.9 ; GERD (gastroesophageal reflux disease) K21.9 and History of long-term use of multiple prescription drugs Z92.29 [place] [address] [place] [id number] [place] [address] Jan, [place] [address] [address] Jan, Well woman exam Z01.419 ; BM I 45.0-49.9, adult Z68.42 ; Family history of diabetes mellitus Z83.3 and Chronic pain G89.29 [place] [address] [place] [id number] [place] [address] December, Chronic pain G89.29 ; Essent ial hypertension I10 ; Depressive disorder, not elsewhere classified F32.9 ; GERD (gastroesophageal reflux disease) K21.9 ; 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 ; History of long-term use of multiple prescription drugs Z92.29 and Obesity E66.9 [place] [address] [address] Oct, [place] [address] [address] 07 Oct, 2015 Well woman exam Z01.419 [...] smear Z12.4 and No natural teeth K00.0 [place] [address] [address] Oct, [place] [address] [address] Sep, Chronic pain G89.29 ; Essent ial hypertension I10 ; GERD (gastroesophageal reflux disease) K21.9 ; 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 ; Skin infection L08.9 and History of long-term use of multiple prescription drugs Z92.29 [place] [address] [place] [id number] [address] [place] [address] Aug, [place] [address] [address] Jul, [place] [address] [address] Jul, [place] [address] [address] Jul, Upper respiratory infection J06.9 [place] [address] [address] Jul, Depressive disorder, not els ewhere classified F32.9 [facility] [address] [place] [id number] [place] [address] Jul, Chronic pain 338.29 [facility] [address] [place] [id number] [place] [address] Jul, Chronic pain G89.29 [facility] [address] [place] [id number] [place] [address] 16 Jun, 2015 Poison josep L23.7 [facility] [address] [place] [id number] [place] [address] Jun, Allergic contact dermatitis due to plants, except food L23.7 [place] [address] [place] [id number] [place] [address] Jun, Essential hypertension I10 ; Chronic pain G89.29 ; GERD (gastroesophageal reflux disease) K21.9 and Numbness and tingling in hands R20.2 [place] [address] [place] [id number] [address] [place] [address] May, [facility] [address] [address] Apr, [facility] [address] [address] Mar, [place] [address] [place] [id number] [place] [address] Feb, Abdominal pain, left lateral 789.09 and Constipation 564.00 [place] [address] [place] [id number] [place] [phone] Feb, Depressive disorder, not els ewhere classified 311 and No condition on [place] V71.09 [place] [address] [place] [id number] [place] [address] Feb, Spider bite 989.5 and Depres homar 311 [place] [address] [place] [id number] [place] [address] Feb, [facility] [address] [id number] [address] [place] [address] Feb, Chronic pain 338.29 ; Arthro zonia 716.90 and GERD (gastroesophageal reflux disease) 530.81 [facility] [address] [facility] [id number] [address] [place] [address] Jan, Insect bites 919.4 [facility] [address] [facility] [id number] [address] [place] [address] Jan, [facility] [address] [facility] [id number] [address] [place] [address] December, Skin infection, bacterial 68 6.9 ; Conjunctivitis 372.30 and Insect bites 919.4 [facility] [address] [facility] [id number] [address] [place] [address] December, Chronic pain 338.29 ; Arthro zonia 716.90 ; Skin infection, bacterial 686.9 and Conjunctivitis 372.30 [facility] [address] [facility] [id number] [address] [place] [address] December, [facility] [address] [facility] [id number] [address] [place] [address] Nov, [facility] [address] [facility] [id number] [address] [place] [id number] Nov, [facility] [address] [facility] [id number] [address] [place] [id number] Oct, [facility] [address] [facility] [id number] [address] [place] [id number] Oct, [facility] [address] [facility] [id number] [address] [place] [phone] Sep, [facility] [address] [facility] [id number] [address] [place] [phone] Sep, [facility] [address] [facility] [id number] [address] [place] [address] Aug, [facility] [address] [id number] [address] [place] [address], [place] [address] Aug, [facility] [address] [id number] [address] [place] [address], [place] [address] Aug, [facility] [address] [id number] [address] [place] [address], [place] [address] Aug, [facility] [address] [id number] [address] [place] [address], [place] [address] Jul, [facility] [address] [id number] [address] [place] [address], [place] [address] Jul, [facility] [address] [id number] [address] [place] [address], [place] [address] Jul, [facility] [address] [id number] [address] [place] [address], [place] [address] Jul, [facility] [address] [id number] [address] [place] [address], [place] [address] Jul, [facility] [address] [id number] [address] [place] [address], [place] [address] Jul, [facility] [address] [id number] [address] [place] [address], [place] [address] Jul, [facility] [address] [id number] [address] [place] [address], [place] [address] Jul, [facility] [address] [id number] [address] [place] [address], [place] [address] Jul, [facility] [address] [id number] [address] [place] [address], [place] [address] Jun, [facility] [address] [id number] [address] [place] [address], [place] [address] Jun, [facility] [address] [id number] [address] [place] [address], [place] [address] Jun, [facility] [address] [id number] [address] [place] [address], [place] [address] Jun, [facility] [address] [id number] [address] [place] [address], [place] [address] Jun, [facility] [address] [id number] [address] [place] [address], [place] [address] Jun, [facility] [address] [id number] [address] [place] [address], [place] [address] Jun, [facility] [address] [id number] [address] [place] [address], [place] [address] Jun, [facility] [address] [id number] [address] [place] [address], [place] [address] May, [facility] [address] [id number] [address] [place] [address], [place] [address] May, [facility] [address] [id number] [address] [place] [address], [place] [address] May, [facility] [address] [id number] [address] [place] [address], [place] [address] May, [facility] [address] [id number] [address] [place] [address], [place] [address] May, [facility] [address] [id number] [address] [place] [address], [place] [address] Apr, [facility] [address] [id number] [address] [place] [address], [place] [address] 26 Apr, 2014 [facility] [address] [id number] [address] [place] [address], [place] [address] 25 Apr, 2013 [facility] [address] [id number] [address] [place] [address], [place] [address] 25 Apr, 2014 [facility] [address] [id number] [address] [place] [address], [place] [address] 18 Apr, 2014 [facility] [address] [id number] [address] [place] [address], [place] [address] 18 Apr, 2013 [facility] [address] [id number] [facility] [place] [address] 18 Apr, 2013 [facility] [address] [id number] [address] [place] [address], [place] [address] 18 Apr, 2014 [facility] [address] [id number] [address] [place] [address], [place] [address] Apr, [facility] [address] [id number] [address] [place] [address], [place] [address] Apr, [facility] [address] [id number] [address] [place] [address], [place] [address] Mar, [facility] [address] [id number] [address] [place] [address], [place] [address] Mar, [facility] [address] [id number] [address] [place] [address], [place] [address] Mar, [facility] [address] [id number] [address] [place] [address], [place] [address] Mar, [facility] [address] [id number] [address] [place] [address], [place] [address] Mar, [facility] [address] [id number] [address] [place] [address], [place] [address] Mar, [facility] [address] [id number] [address] [place] [address], [place] [address] Feb, [facility] [address] [id number] [address] [place] [address], [place] [address] Feb, [facility] [address] [id number] [address] [place] [address], [place] [address] Jan, [facility] [address] [id number] [address] [place] [address], [place] [address] Jan, [facility] [address] [id number] [address] [place] [address], [place] [address] Jan, [facility] [address] [id number] [address] [place] [address], [place] [address] Jan, [facility] [address] [id number] [address] [place] [address], [place] [address] December, [facility] [address] [id number] [address] [place] [address], [place] [address] December, [facility] [address] [id number] [address] [place] [address], [place] [address] December, [facility] [address] [id number] [address] [place] [address], [place] [address] December, [facility] [address] [id number] [address] [place] [address], [place] [address] December, [facility] [address] [id number] [address] [place] [address], [place] [id number] December, [facility] [address] [id number] [address] [place] [address], [place] [address] December, [facility] [address] [id number] [address] [place] [address], [place] [address] December, [facility] [address] [id number] [address] [place] [address], [place] [address] December, [facility] [address] [id number] [address] [place] [address], [place] [address] Nov, [facility] [address] [id number] [address] [place] [address], [place] [address] Nov, [facility] [address] [id number] [address] [place] [address], [place] [address] Nov, [facility] [address] [id number] [address] [place] [address], [place] [address] Nov, [facility] [address] [id number] [address] [place] [address], [place] [address] Nov, [facility] [address] [id number] [address] [place] [address], [place] [address] Nov, [facility] [address] [id number] [address] [place] [address], [place] [address] 08 Nov, 2013 [facility] [address] [id number] [address] [place] [address], [place] [address] Nov, [facility] [address] [id number] [address] [place] [address], [place] [address] Nov, [facility] [address] [id number] [address] [place] [address], [place] [address] Nov, [facility] [address] [id number] [address] [place] [address], [place] [address] Oct, [facility] [address] [id number] [address] [place] [address], [place] [address] Oct, [facility] [address] [id number] [address] [place] [address], [place] [address] Sep, [facility] [address] [id number] [address] [place] [address], [place] [address] Sep, [facility] [address] [id number] [address] [place] [address], [place] [address] Aug, [facility] [address] [id number] [address] [place] [address], [place] [address] Aug, [facility] [address] [id number] [address] [place] [address], [place] [address] Aug, [facility] [address] [id number] [address] [place] [address], [place] [address] Aug, [facility] [address] [id number] [address] [place] [address], [place] [address] Jul, [facility] [address] [id number] [address] [place] [address], [place] [address] Jul, [facility] [address] [id number] [address] [place] [address], [place] [address] Jul, [facility] [address] [id number] [address] [place] [address], [place] [address] Jul, [facility] [address] [id number] [address] [place] [address], [place] [address] Jun, [facility] [address] [id number] [address] [place] [address], [place] [address] Jun, [facility] [address] [id number] [address] [place] [address], [place] [address] May, [facility] [address] [id number] [address] [place] [address], [place] [address] May, [facility] [address] [id number] [address] [place] [address], [place] [address] May, [facility] [address] [id number] [address] [place] [address], [place] [address] May, [facility] [address] [id number] [address] [place] [address], [place] [address] May, [facility] [address] [id number] [address] [place] [address], [place] [address] May, [facility] [address] [id number] [address] [place] [address], [place] [address] 30 Apr, 2013 [facility] [address] [id number] [address] [place] [address], [place] [address] 23 Apr, 2013 [facility] [address] [id number] [address] [place] [address], [place] [address] 03 Apr, 2013 [facility] [address] [id number] [address] [place] [address], [place] [address] Feb, [facility] [address] [id number] [address] [place] [address], [place] [address] 27 Jan, 2013 [facility] [address] [id number] [address] [place] [address], [place] [address] 18 Jan, 2013 [facility] [address] [id number] [address] [place] [address], [place] [address] 17 Jan, 2013 [facility] [address] [id number] [address] [place] [address], [place] [address] Jan, [facility] [place] [address] [id number] [address] [place] [address], [place] [address] December, [facility] [address] [id number] [address] [place] [address], [place] [address] December, [facility] [address] [id number] [address] [place] [address], [place] [address] Nov, [facility] [address] [id number] [address] [place] [address], [place] [address] Nov, [facility] [address] [id number] [address] [place] [address], [place] [address] Nov, [facility] [address] [id number] [address] [place] [address], [place] [address] Nov, [facility] [address] [id number] [address] [place] [address], [place] [address] Nov, [facility] [address] [id number] [address] [place] [address], [place] [address] Nov, [facility] [address] [id number] [address] [place] [address], [place] [address] Nov, [facility] [address] [id number] [address] [place] [address], [place] [address] 27 Oct, 2012 [facility] [address] [id number] [address] [place] [address], [place] [address] 18 Oct, 2012 [facility] [address] [id number] [address] [place] [address], [place] [address] 14 Oct, 2012 [facility] [address] [id number] [address] [place] [address], [place] [address] 13 Oct, 2012 [facility] [address] [id number] [address] [place] [address], [place] [address] 12 Oct, 2012 [facility] [address] [id number] [address] [place] [address], [place] [address] 11 Oct, 2012 [facility] [address] [id number] [address] [place] [address] Oct, [facility] [address] [id number] [address] [place] [address] Sep, [facility] [address] [id number] [address] [place] [address] Sep, [facility] [address] [id number] [address] [place] [address] Aug, [facility] [address] [id number] [address] [place] [address] Aug, [facility] [address] [id number] [address] [place] [address] Jul, [facility] [address] [id number] [address] [place] [address] Jul, [facility] [address] [id number] [address] [place] [address] Jul, [facility] [address] [id number] [address] [place] [address] Jul, [facility] [address] [id number] [address] [place] [address] Jul, [facility] [address] [id number] [address] [place] [address] Jul, [facility] [address] [id number] [address] [place] [address] Jul, [facility] [address] [id number] [address] [place] [address] Jul, [facility] [address] [id number] [address] [place] [address] Jun, [facility] [address] [id number] [address] [place] [address] Jun, IMMUNIZATIONS No Known Immunizations SOCIAL HISTORY [...] -- total 11/2012 Hospitalization History ER- in [place] due to left knee 8
--- OUTSIDE RECORDS SUMMARY | 2020-02-11 03:18 | XMS REPORT ---
Author Author АНДРЕЙ Madelineshawn LEONG Organization [facility] Address [address] [place] [address] Care Team Providers Care Category Development Analyst Name Role Phone KWESIKennedy DANG Unavailable PROBLEMS Type Condition ICD9-CM Code ZXP14-RN Code Onset Dates Condition S tatus SNOMED Code Problem GERD (gastroesophageal reflux disease) K21.9 Active 354858351 Problem Numbness and tingling in hands R20.2 Active 602754562 Problem History of abnormal cervical Pap smear Z87.898 Active 055810122 Problem Chronic recurrent major depressive disorder F33.9 Active 2978155 Problem Chronic pain G89.29 Active 9623374 1 Problem Morbid obesity due to excess calories E66.01 Active 528061663 Problem Pre-diabetes R73.09 Active 3094564 02 Problem Stasis dermatitis of both legs I87.2 Active 21682436 Problem BMI 45.0-49.9, adult Z68.42 Active 246784897 Problem Essential hypertension I10 Active 49920739 Problem Primary insomnia F51.01 Active 397 2004 ALLERGIES No Information ENCOUNTERS Encounter Location Date Diagnosis [facility] [id number] [place] [address] Apr, [facility] [id number] [place] [address] Mar, Morbid obesity E66.01 ; 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 ; Morbid obesity due to excess calories E66.01 and High risk medication use Z79.899 [facility] [id number] [place] [address] Mar, Chronic pain G89.29 and BMI 45.0-49.9, adult Z68.42 [facility] [id number] [place] [address] Feb, [facility] [address] [place] [address] Feb, Chronic pain G89.29 and BMI 45.0-49.9, adult Z68.42 [place] [id number] [place] [address] Jan, [place] [address] [address] Jan, Chronic pain G89.29 and BMI 45.0-49.9, adult Z68.42 [place] [address] [address] Jan, [place] [id number] [place] [address] December, Chronic pain G89.29 and BMI 45.0-49.9, adult Z68.42 [place] [address] [id number] [place] [address] Nov, Morbid obesity E66.01 and Ce llulitis of leg, left L03.116 [place] [address] [address] Nov, Cellulitis of left lower ext remity L03.116 and Morbid obesity E66.01 [facility] [id number] [place] [address] Nov, [place] [address] [address] Nov, Morbid obesity E66.01 and Ce llulitis of left lower extremity L03.116 [place] [address] [id number] [place] [address] Nov, Chronic pain G89.29 and BMI 45.0-49.9, adult Z68.42 [place] [id number] [place] [address] Oct, BMI 45.0-49.9, adult Z68.42 and Chronic pain G89.29 [facility] [address] [facility] [id number] [address] [place] [address] 14 Sep, 2018 BMI 45.0-49.9, adult Z68.42 and Chronic pain G89.29 [facility] [id number] [place] [address] Sep, BMI 45.0-49.9, adult Z68.42 and Essential hypertension I10 [place] [id number] [place] [address] Aug, BMI 45.0-49.9, adult Z68.42 ; Chronic pain G89.29 ; Essential hypertension I10 and Primary insomnia F51.01 [place] [id number] [place] [address] Aug, Chronic pain G89.29 [place] [id number] [place] [address] Jul, Chronic pain G89.29 [place] [id number] [place] [address] Jun, Chronic pain G89.29 [facility] [id number] [place] [address] May, Chronic pain G89.29 [place] [id number] [place] [address] May, BMI 40.0-44.9, adult Z68.41 ; Other chronic pain G89.29 ; Pain in right hip M25.551 and Acute pain of left knee M25.562 [place] [id number] [place] [address] May, Chronic pain G89.29 [facility] [id number] [place] [address] Apr, Chronic pain G89.29 [place] [address] [facility] [id number] [address] [place] [address] Mar, Poison josep L23.7 [facility] [address] [facility] [id number] [address] [place] [address] Mar, Chronic pain G89.29 [facility] [address] [facility] [id number] [address] [place] [address] Feb, Chronic pain G89.29 [facility] [address] [facility] [id number] [address] [place] [address] Feb, Poison josep L23.7 [facility] [address] [facility] [id number] [address] [place] [address] Jan, Chronic pain G89.29 [place] [address] [facility] [id number] [address] [place] [address] December, Chronic pain G89.29 [place] [address] [facility] [id number] [address] [place] [address] Nov, Long-term use of high-risk m edication Z79.899 [place] [id number] [place] [address] Nov, Chronic pain G89.29 [place] [id number] [place] [address] Oct, Chronic pain G89.29 ; Pre-di abetes R73.09 ; Long-term use of high- risk medication Z79.899 ; Allergic rhinitis, unspecified seasonality, unspecified trigger J30.9 ; BMI 45.0-49.9, adult Z68.42 and Essential hypertension I10 [facility] [address] [facility] [id number] [address] [place] [address] Oct, Chronic pain G89.29 [place] [address] [facility] [id number] [address] [place] [address] Sep, Chronic pain G89.29 [place] [id number] [place] [address] Aug, Chronic pain G89.29 [facility] [id number] [place] [address] Jul, [facility] [id number] [place] [address] Jul, [facility] [address] [address] Jun, Chronic pain G89.29 ; BMI 45 .0-49.9, adult Z68.42 ; Pre-diabetes R73.09 ; Essential hypertension I10 ; GERD (gastroesophageal reflux disease) K21.9 ; Yeast dermatitis B37.2 ; Dysuria R30.0 ; Acute non-recurrent maxillary sinusitis J01.00 and Acute cystitis with hematuria N30.01 [place] [address] [address] Jun, Chronic pain G89.29 [facility] [id number] [place] [address] Jun, Acute non-recurrent maxillar y sinusitis J01.00 and BMI 45.0-49.9, adult Z68.42 [facility] [id number] [place] [address] May, [facility] [address] [address] May, Chronic pain G89.29 [facility] [id number] [place] [address] May, [facility] [address] [address] Apr, Chronic pain G89.29 [facility] [id number] [place] [address] Mar, [facility] [address] [address] Mar, Essential hypertension I10 a nd Pre-diabetes R73.09 [place] [id number] [place] [address] 15 Mar, 2017 Chronic pain G89.29 ; Essent ial hypertension I10 ; Depressive disorder, not elsewhere classified F32.9 ; GERD (gastroesophageal reflux disease) K21.9 ; Pre-diabetes R73.09 ; Stasis dermatitis of both legs I87.2 and Acute non-recurrent maxillary sinusitis J01.00 [place] [id number] [place] [address] 11 Mar, 2017 Chronic pain G89.29 [place] [id number] [place] [address] 07 Mar, 2017 Achilles tendinitis of right lower extremity M76.61 and Tinea corporis B35.4 [place] [address] [address] [id number] [place] [address] 17 Feb, 2017 Yeast dermatitis B37.2 [place] [address] [facility] [id number] [address] [place] [address] 14 Feb, 2017 Candidal intertrigo B37.2 an d Acute right ankle pain M25.571 [place] [address] [id number] [place] [address] 12 Feb, 2017 Chronic pain G89.29 [place] [id number] [place] [address] 16 Jan, 2017 [place] [address] [id number] [place] [address] Jan, Chronic pain G89.29 [place] [id number] [place] [address] December, Chronic pain G89.29 ; Essent ial hypertension I10 ; Depressive disorder, not elsewhere classified F32.9 ; GERD (gastroesophageal reflux disease) K21.9 ; Pre-diabetes R73.09 ; Screening breast examination Z12.39 ; Stasis dermatitis of both legs I87.2 and Yeast dermatitis B37.2 [place] [address] [place] [address] Nov, Chronic pain G89.29 [place] [address] [place] [address] Nov, Cellulitis of left lower ext remity L03.116 [place] [address] [address] Nov, Cellulitis of left lower ext remity L03.116 [place] [address] [place] [address] Oct, Yeast dermatitis B37.2 [place] [address] [address] Oct, Chronic pain G89.29 [place] [address] [address] Sep, Chronic pain G89.29 ; Essent ial hypertension I10 ; Depressive disorder, not elsewhere classified F32.9 and GERD (gastroesophageal reflux disease) K21.9 [place] [address] [address] Aug, Chronic pain G89.29 [place] [address] [address] Aug, Cough R05 ; Rash R21 and Vinay h and nonspecific skin eruption R21 [place] [address] [address] Jul, Chronic pain G89.29 [place] [address] [address] Jun, Chronic pain G89.29 ; Bronch itis J40 ; Essential hypertension I10 ; Depressive disorder, not elsewhere classified F32.9 ; GERD (gastroesophageal reflux disease) K21.9 and History of long-term use of multiple prescription drugs Z92.29 [place] [address] [address] Jun, Bronchitis J40 ; Chills R68. 83 and Sore throat J02.9 [facility] [address] [address] May, [facility] [address] [address] Apr, [facility] [address] [address] Apr, Acute mucoid otitis media of both ears H65.113 [place] [address] [address] Apr, Yeast dermatitis B37.2 and H ematuria R31.9 [place] [address] [address] Mar, [place] [address] [address] Mar, [facility] [address] [address] Feb, Left anterior knee pain M25. 562 [place] [address] [address] Feb, Chronic pain G89.29 ; Essent ial hypertension I10 ; Depressive disorder, not elsewhere classified F32.9 ; GERD (gastroesophageal reflux disease) K21.9 and History of long-term use of multiple prescription drugs Z92.29 [place] [address] [address] Jan, [place] [address] [address] Jan, Well woman exam Z01.419 ; BM I 45.0-49.9, adult Z68.42 ; Family history of diabetes mellitus Z83.3 and Chronic pain G89.29 [place] [address] [place] [address] December, Chronic pain G89.29 ; Essent ial hypertension I10 ; Depressive disorder, not elsewhere classified F32.9 ; GERD (gastroesophageal reflux disease) K21.9 ; 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 ; History of long-term use of multiple prescription drugs Z92.29 and Obesity E66.9 [facility] [id number] [place] [address] Oct, [facility] [address] [address] Oct, Well woman exam Z01.419 ; BM [...] smear Z12.4 and No natural teeth K00.0 [place] [address] [address] Oct, [place] [address] [id number] [place] [address] Sep, Chronic pain G89.29 ; Essent ial hypertension I10 ; GERD (gastroesophageal reflux disease) K21.9 ; 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 ; Skin infection L08.9 and History of long-term use of multiple prescription drugs Z92.29 [place] [address] [id number] [place] [address] Aug, [place] [address] [address] Jul, [place] [address] [address] [id number] [place] [address] Jul, [place] [address] [id number] [place] [address] 09 Jul, 2015 Upper respiratory infection J06.9 [facility] [address] [facility] [id number] [address] [place] [address] Jul, Depressive disorder, not els ewhere classified F32.9 [facility] [address] [facility] [id number] [address] [place] [address] Jul, Chronic pain 338.29 [facility] [address] [facility] [id number] [address] [place] [address] Jul, Chronic pain G89.29 [place] [address] [address] [id number] [place] [address] Jun, Poison josep L23.7 [place] [id number] [place] [address] Jun, Allergic contact dermatitis due to plants, except food L23.7 [place] [address] [address] [id number] [place] [address] Jun, Essential hypertension I10 ; Chronic pain G89.29 ; GERD (gastroesophageal reflux disease) K21.9 and Numbness and tingling in hands R20.2 [place] [address] [place] [address] [id number] [place] [address] May, [place] [address] [place] [id number] [place] [address] Apr, [facility] [id number] [place] [address] Mar, [facility] [id number] [place] [address] Feb, Abdominal pain, left lateral 789.09 and Constipation 564.00 [facility] [id number] [place] [address] Feb, Depressive disorder, not els ewhere classified 311 and No condition on [place] II V71.09 [place] [address] [id number] [place] [address] Feb, Spider bite 989.5 and Depres homar 311 [facility] [address] [address] Feb, [facility] [address] [address] Feb, Chronic pain 338.29 ; Arthro zonia 716.90 and GERD (gastroesophageal reflux disease) 530.81 [facility] [address] [address] Jan, Insect bites 919.4 [facility] [address] [address] Jan, [facility] [address] [address] December, Skin infection, bacterial 68 6.9 ; Conjunctivitis 372.30 and Insect bites 919.4 [facility] [address] [address] December, Chronic pain 338.29 ; Arthro zonia 716.90 ; Skin infection, bacterial 686.9 and Conjunctivitis 372.30 [facility] [id number] [place] [address] December, [facility] [id number] [place] [address] Nov, [facility] [address] [address] Nov, [facility] [id number] [place] [address] Oct, [facility] [address] [address] Oct, [facility] [id number] [place] [address] Sep, [facility] [place] [facility] [address] [id number] [address] [place] [address], [place] [address] Sep, [facility] [address] [id number] [address] [place] [address], [place] [address] Aug, [facility] [address] [id number] [address] [place] [address], [place] [address] Aug, [facility] [address] [id number] [address] [place] [address], [place] [address] Aug, [facility] [address] [id number] [address] [place] [address], [place] [address] Aug, [facility] [address] [id number] [address] [place] [address], [place] [address] Jul, [facility] [address] [id number] [address] [place] [address], [place] [address] Jul, [facility] [address] [id number] [address] [place] [address], [place] [address] Jul, [facility] [address] [id number] [address] [place] [address], [place] [address] Jul, [facility] [address] [id number] [address] [place] [address], [place] [address] Jul, [facility] [address] [id number] [address] [place] [address], [place] [address] Jul, [facility] [address] [id number] [address] [place] [address], [place] [address] Jul, [facility] [address] [id number] [address] [place] [address], [place] [address] Jul, [facility] [place] [facility] [address] [id number] [address] [place] [address], [place] [address] Jul, [facility] [place] [facility] [address] [id number] [address] [place] [address], [place] [address] 13 Jun, 2014 [facility] [address] [id number] [address] [place] [address], [place] [address] Jun, [facility] [place] [facility] [address] [id number] [address] [place] [address], [place] [address] Jun, [facility] [place] [facility] [address] [id number] [address] [place] [address], [place] [address] Jun, [facility] [place] [facility] [address] [id number] [address] [place] [address], [place] [address] Jun, [facility] [place] [facility] [address] [id number] [address] [place] [address], [place] [address] Jun, [facility] [place] [facility] [address] [id number] [address] [place] [address], [place] [address] Jun, [facility] [place] [facility] [address] [id number] [address] [place] [address], [place] [address] Jun, [facility] [place] [facility] [address] [id number] [address] [place] [address], [place] [address] May, [facility] [place] [facility] [address] [id number] [address] [place] [address], [place] [address] May, [facility] [place] [facility] [address] [id number] [address] [place] [address], [place] [address] May, [facility] [place] [facility] [address] [id number] [address] [place] [address], [place] [address] May, [facility] [place] [facility] [address] [id number] [address] [place] [address], [place] [address] May, [facility] [place] [facility] [address] [id number] [address] [place] [address] Apr, [facility] [place] [facility] [address] [id number] [address] [place] [address], [place] [address] Apr, [facility] [place] [facility] [address] [id number] [address] [place] [address], [place] [address] Apr, [facility] [place] [facility] [address] [id number] [address] [place] [address], [place] [address] Apr, [facility] [place] [facility] [address] [id number] [facility] [place] [address] 18 Apr, 2013 [facility] [place] [facility] [address] [id number] [address] [place] [address], [place] [address] 18 Apr, 2013 [facility] [place] [facility] [address] [id number] [address] [place] [address], [place] [address] 18 Apr, 2014 [facility] [address] [id number] [address] [place] [address], [place] [address] 18 Apr, 2014 [facility] [address] [id number] [address] [place] [address], [place] [address] 04 Apr, 2014 [facility] [address] [id number] [address] [place] [address], [place] [address] Apr, [facility] [address] [id number] [address] [place] [address], [place] [address] Mar, [facility] [address] [id number] [address] [place] [address], [place] [address] Mar, [facility] [address] [id number] [address] [place] [address], [place] [address] Mar, [facility] [address] [id number] [address] [place] [address], [place] [address] Mar, [facility] [address] [id number] [address] [place] [address], [place] [address] Mar, [facility] [address] [id number] [address] [place] [address], [place] [address] Mar, [facility] [address] [id number] [address] [place] [address], [place] [address] Feb, [facility] [address] [id number] [address] [place] [address], [place] [address] Feb, [facility] [address] [id number] [address] [place] [address], [place] [address] Jan, [facility] [address] [id number] [address] [place] [address], [place] [address] Jan, [facility] [address] [id number] [address] [place] [address], [place] [address] Jan, [facility] [address] [id number] [address] [place] [address], [place] [address] Jan, [facility] [address] [id number] [address] [place] [address], [place] [address] December, [facility] [address] [id number] [address] [place] [address], [place] [address] December, [facility] [address] [id number] [address] [place] [address], [place] [address] December, [facility] [address] [id number] [address] [place] [address], [place] [address] December, [facility] [address] [id number] [address] [place] [address], [place] [address] December, [facility] [address] [id number] [address] [place] [address], [place] [address] December, [facility] [address] [id number] [address] [place] [address], [place] [address] December, [facility] [address] [id number] [address] [place] [address], [place] [address] December, [facility] [address] [id number] [address] [place] [address], [place] [address] December, [facility] [address] [id number] [address] [place] [address], [place] [address] Nov, [facility] [address] [id number] [address] [place] [address], [place] [address] Nov, [facility] [address] [id number] [address] [place] [address], [place] [address] Nov, [facility] [address] [id number] [address] [place] [address], [place] [address] Nov, [facility] [address] [id number] [address] [place] [address], [place] [address] Nov, [facility] [address] [id number] [address] [place] [address], [place] [address] Nov, [facility] [address] [id number] [address] [place] [address], [place] [address] Nov, [facility] [address] [id number] [address] [place] [address], [place] [address] Nov, [facility] [address] [id number] [address] [place] [address], [place] [address] Nov, [facility] [address] [id number] [address] [place] [address], [place] [address] Nov, [facility] [address] [id number] [address] [place] [address], [place] [address] Oct, [facility] [address] [id number] [address] [place] [address], [place] [address] Oct, [facility] [address] [id number] [address] [place] [address], [place] [address] Sep, [facility] [address] [id number] [address] [place] [address], [place] [address] Sep, [facility] [address] [id number] [address] [place] [address], [place] [address] Aug, [facility] [address] [id number] [address] [place] [address], [place] [address] Aug, [facility] [address] [id number] [address] [place] [address], [place] [address] Aug, [facility] [address] [id number] [address] [place] [address], [place] [address] Aug, [facility] [address] [id number] [address] [place] [address], [place] [address] Jul, [facility] [address] [id number] [address] [place] [address], [place] [address] Jul, [facility] [address] [id number] [address] [place] [address], [place] [address] Jul, [facility] [address] [id number] [address] [place] [address], [place] [address] Jul, [facility] [address] [id number] [address] [place] [address], [place] [address] Jun, [facility] [address] [id number] [address] [place] [address], [place] [address] Jun, [facility] [address] [id number] [address] [place] [address], [place] [address] May, [facility] [address] [id number] [address] [place] [address], [place] [address] May, [facility] [address] [id number] [address] [place] [address], [place] [address] May, [facility] [address] [id number] [address] [place] [address], [place] [address] May, [facility] [address] [id number] [address] [place] [address], [place] [address] May, [facility] [address] [id number] [address] [place] [address], [place] [address] May, [facility] [address] [id number] [address] [place] [address], [place] [address] 30 Apr, 2013 [facility] [address] [id number] [address] [place] [address], [place] [address] 23 Apr, 2013 [facility] [address] [id number] [address] [place] [address], [place] [address] Apr, [facility] [address] [id number] [address] [place] [address], [place] [address] Feb, [facility] [address] [id number] [address] [place] [address], [place] [address] Jan, [facility] [address] [id number] [address] [place] [address], [place] [address] Jan, [facility] [address] [id number] [address] [place] [address], [place] [address] 17 Jan, 2013 [facility] [address] [id number] [address] [place] [address], [place] [address] Jan, [facility] [address] [id number] [address] [place] [address], [place] [address] December, [facility] [address] [id number] [address] [place] [address], [place] [address] December, [facility] [address] [id number] [address] [place] [address], [place] [address] Nov, [facility] [address] [id number] [address] [place] [address], [place] [address] Nov, [facility] [address] [id number] [address] [place] [address], [place] [address] Nov, [facility] [address] [id number] [address] [place] [address], [place] [address] Nov, [facility] [address] [id number] [address] [place] [address], [place] [address] Nov, [facility] [address] [id number] [address] [place] [address], [place] [address] Nov, [facility] [address] [id number] [address] [place] [address], [place] [address] Nov, [facility] [address] [id number] [address] [place] [address], [place] [address] 27 Oct, 2012 [facility] [address] [id number] [address] [place] [address], [place] [address] 18 Oct, 2012 [facility] [address] [id number] [address] [place] [address], [place] [address] 14 Oct, 2012 [facility] [address] [id number] [address] [place] [address], [place] [address] 13 Oct, 2012 [facility] [address] [id number] [address] [place] [address], [place] [address] 12 Oct, 2012 [facility] [address] [id number] [address] [place] [address], [place] [address] Oct, [facility] [address] [id number] [address] [place] [address], [place] [address] 08 Oct, 2012 [facility] [address] [id number] [address] [place] [address], [place] [address] Sep, [facility] [address] [id number] [address] [place] [address], [place] [address] Sep, [facility] [address] [id number] [address] [place] [address], [place] [address] Aug, [facility] [address] [id number] [address] [place] [address], [place] [address] Aug, [facility] [address] [id number] [address] [place] [address], [place] [address] Jul, [facility] [address] [id number] [address] [place] [address], [place] [address] Jul, [facility] [address] [id number] [address] [place] [address], [place] [address] Jul, [facility] [address] [id number] [address] [place] [address], [place] [address] Jul, [facility] [address] [id number] [address] [place] [address], [place] [address] Jul, [facility] [address] [id number] [address] [place] [address], [place] [address] Jul, [facility] [address] [id number] [address] [place] [address], [place] [address] Jul, [facility] [address] [id number] [address] [place] [address], [place] [address] Jul, [facility] [address] [id number] [address] [place] [address], [place] [address] Jun, [facility] [address] [facility] [id number] [address] [place] [address] Jun, IMMUNIZATIONS No Known Immunizations SOCIAL HISTORY [...] -- total 11/2012 Hospitalization History ER- in [place] due to left knee 8
--- OUTSIDE RECORDS SUMMARY | 2020-02-11 03:18 | XMS REPORT ---
Author Author АНДРЕЙ Madelineshawn LEONG Organization [facility] Address [address] [place] [address] Care Team Providers Care Lye Peel Operator Name Role Phone KWESIKennedy DANG Unavailable PROBLEMS Type Condition ICD9-CM Code IUL28-HR Code Onset Dates Condition S tatus SNOMED Code Problem GERD (gastroesophageal reflux disease) K21.9 Active 263407418 Problem Numbness and tingling in hands R20.2 Active 162009258 Problem History of abnormal cervical Pap smear Z87.898 Active 009000485 Problem Chronic recurrent major depressive disorder F33.9 Active 2106353 Problem Chronic pain G89.29 Active 3608866 1 Problem Morbid obesity due to excess calories E66.01 Active 130020361 Problem Pre-diabetes R73.09 Active 4311483 02 Problem Stasis dermatitis of both legs I87.2 Active 01131989 Problem BMI 45.0-49.9, adult Z68.42 Active 117694064 Problem Essential hypertension I10 Active 12932751 Problem Primary insomnia F51.01 Active 397 2004 ALLERGIES No Information ENCOUNTERS Encounter Location Date Diagnosis [facility] [address] [facility] [id number] [address] [place] [phone] Mar, Morbid obesity E66.01 ; Data Processing Operator david recurrent major depressive disorder F33.9 ; Morbid obesity due to excess calories E66.01 and High risk medication use Z79.899 [facility] [address] [facility] [id number] [address] [place] [address] Mar, Chronic pain G89.29 and BMI 45.0-49.9, adult Z68.42 [facility] [address] [facility] [id number] [address] [place] [phone] Feb, [facility] [address] [place] [id number] [address] [place] [address] Feb, Chronic pain G89.29 and BMI 45.0-49.9, adult Z68.42 [facility] [address] [facility] [id number] [address] [place] [id number] Jan, [facility] [address] [facility] [id number] [address] [place] [id number] Jan, Chronic pain G89.29 and BMI 45.0-49.9, adult Z68.42 [facility] [address] [facility] [id number] [address] [place] [address] Jan, [place] [address] [facility] [id number] [address] [place] [address] December, Chronic pain G89.29 and BMI 45.0-49.9, adult Z68.42 [place] [address] [place] [id number] [address] [place] [phone] Nov, Morbid obesity E66.01 and Ce llulitis of leg, left L03.116 [facility] [address] [facility] [id number] [address] [place] [address] Nov, Cellulitis of left lower ext remity L03.116 and Morbid obesity E66.01 [facility] [address] [facility] [id number] [address] [place] [address] Nov, [facility] [address] [place] [id number] [address] [place] [address] Nov, Morbid obesity E66.01 and Ce llulitis of left lower extremity L03.116 [facility] [address] [facility] [id number] [address] [place] [address] Nov, Chronic pain G89.29 and BMI 45.0-49.9, adult Z68.42 [facility] [address] [facility] [id number] [address] [place] [id number] Oct, BMI 45.0-49.9, adult Z68.42 and Chronic pain G89.29 [place] [address] [place] [id number] [address] [place] [id number] 14 Sep, 2018 BMI 45.0-49.9, adult Z68.42 and Chronic pain G89.29 [place] [address] [facility] [id number] [address] [place] [id number] 05 Sep, 2018 BMI 45.0-49.9, adult Z68.42 and Essential hypertension I10 [place] [address] [place] [id number] [place] [address] Aug, BMI 45.0-49.9, adult Z68.42 ; Chronic pain G89.29 ; Essential hypertension I10 and Primary insomnia F51.01 [place] [address] [place] [id number] [address] [place] [address] Aug, Chronic pain G89.29 [place] [address] [place] [id number] [address] [place] [address] Jul, Chronic pain G89.29 [place] [address] [place] [id number] [address] [place] [address] Jun, Chronic pain G89.29 [place] [address] [place] [id number] [address] [place] [address] May, Chronic pain G89.29 [place] [address] [place] [id number] [address] [place] [address] May, BMI 40.0-44.9, adult Z68.41 ; Other chronic pain G89.29 ; Pain in right hip M25.551 and Acute pain of left knee M25.562 [place] [address] [facility] [id number] [address] [place] [address] May, Chronic pain G89.29 [place] [address] [place] [id number] [address] [place] [address] Apr, Chronic pain G89.29 [place] [address] [place] [id number] [address] [place] [address] Mar, Poison josep L23.7 [facility] [address] [facility] [id number] [address] [place] [address] Mar, Chronic pain G89.29 [facility] [address] [facility] [id number] [address] [place] [phone] Feb, Chronic pain G89.29 [facility] [address] [facility] [id number] [address] [place] [phone] Feb, Poison josep L23.7 [facility] [address] [facility] [id number] [address] [place] [address] Jan, Chronic pain G89.29 [place] [address] [facility] [id number] [address] [place] [address] December, Chronic pain G89.29 [place] [address] [facility] [id number] [address] [place] [address] Nov, Long-term use of high-risk m edication Z79.899 [place] [id number] [facility] [id number] [address] [place] [address] Nov, Chronic pain G89.29 [place] [address] [facility] [id number] [address] [place] [address] Oct, Chronic pain G89.29 ; Pre-di abetes R73.09 ; Long-term use of high- risk medication Z79.899 ; Allergic rhinitis, unspecified seasonality, unspecified trigger J30.9 ; BMI 45.0-49.9, adult Z68.42 and Essential hypertension I10 [place] [id number] [facility] [id number] [address] [place] [phone] Oct, Chronic pain G89.29 [place] [address] [facility] [id number] [address] [place] [address] Sep, Chronic pain G89.29 [place] [address] [facility] [id number] [address] [place] [address] Aug, Chronic pain G89.29 [place] [address] [place] [id number] [address] [place] [phone] Jul, [facility] [address] [address] Jul, [place] [address] [place] [id number] [place] [address] Jun, Chronic pain G89.29 ; BMI 45 .0-49.9, adult Z68.42 ; Pre-diabetes R73.09 ; Essential hypertension I10 ; GERD (gastroesophageal reflux disease) K21.9 ; Yeast dermatitis B37.2 ; Dysuria R30.0 ; Acute non-recurrent maxillary sinusitis J01.00 and Acute cystitis with hematuria N30.01 [place] [address] [address] Jun, Chronic pain G89.29 [place] [address] [address] Jun, Acute non-recurrent maxillar y sinusitis J01.00 and BMI 45.0-49.9, adult Z68.42 [place] [address] [address] May, [place] [address] [address] May, Chronic pain G89.29 [place] [address] [address] May, [place] [address] [place] [id number] [place] [address] Apr, Chronic pain G89.29 [place] [address] [place] [id number] [address] [place] [phone] Mar, [place] [address] [place] [id number] [place] [address] Mar, Essential hypertension I10 a nd Pre-diabetes R73.09 [place] [address] [place] [address] 15 Mar, 2017 Chronic pain G89.29 ; Essent ial hypertension I10 ; Depressive disorder, not elsewhere classified F32.9 ; GERD (gastroesophageal reflux disease) K21.9 ; Pre-diabetes R73.09 ; Stasis dermatitis of both legs I87.2 and Acute non-recurrent maxillary sinusitis J01.00 [place] [address] [place] [address] Mar, Chronic pain G89.29 [place] [address] [address] 07 Mar, 2017 Achilles tendinitis of right lower extremity M76.61 and Tinea corporis B35.4 [place] [address] [address] 17 Feb, 2017 Yeast dermatitis B37.2 [place] [address] [address] Feb, Candidal intertrigo B37.2 an d Acute right ankle pain M25.571 [place] [address] [address] 12 Feb, 2017 Chronic pain G89.29 [place] [address] [place] [id number] [place] [address] 16 Jan, 2017 [place] [address] [address] Jan, Chronic pain G89.29 [place] [address] [address] December, Chronic pain G89.29 ; Essent ial hypertension I10 ; Depressive disorder, not elsewhere classified F32.9 ; GERD (gastroesophageal reflux disease) K21.9 ; Pre-diabetes R73.09 ; Screening breast examination Z12.39 ; Stasis dermatitis of both legs I87.2 and Yeast dermatitis B37.2 [place] [address] [address] Nov, Chronic pain G89.29 [place] [address] [place] [id number] [address] [place] [address] Nov, Cellulitis of left lower ext remity L03.116 [place] [address] [place] [id number] [address] [place] [address] Nov, Cellulitis of left lower ext remity L03.116 [place] [address] [place] [address] Oct, Yeast dermatitis B37.2 [place] [address] [place] [address] Oct, Chronic pain G89.29 [place] [address] [place] [address] Sep, Chronic pain G89.29 ; Essent ial hypertension I10 ; Depressive disorder, not elsewhere classified F32.9 and GERD (gastroesophageal reflux disease) K21.9 [place] [address] [place] [id number] [address] [place] [address] Aug, Chronic pain G89.29 [place] [address] [address] Aug, Cough R05 ; Rash R21 and Vinay h and nonspecific skin eruption R21 [address] [place] [address] Jul, Chronic pain G89.29 [place] [address] [place] [id number] [address] [place] [address] Jun, Chronic pain G89.29 ; Bronch itis J40 ; Essential hypertension I10 ; Depressive disorder, not elsewhere classified F32.9 ; GERD (gastroesophageal reflux disease) K21.9 and History of long-term use of multiple prescription drugs Z92.29 [place] [address] [place] [id number] [address] [place] [address] Jun, Bronchitis J40 ; Chills R68. 83 and Sore throat J02.9 [facility] [address] [facility] [id number] [address] [place] [address] May, [facility] [address] [facility] [id number] [address] [place] [address] Apr, [facility] [address] [place] [id number] [address] [place] [address] Apr, Acute mucoid otitis media of both ears H65.113 [facility] [address] [place] [id number] [address] [place] [address] 07 Apr, 2016 Yeast dermatitis B37.2 and H ematuria R31.9 [place] [address] [place] [id number] [address] [place] [address] Mar, [place] [address] [address] Mar, [place] [address] [address] Feb, Left anterior knee pain M25. 562 [place] [address] [place] [id number] [place] [address] Feb, Chronic pain G89.29 ; Essent ial hypertension I10 ; Depressive disorder, not elsewhere classified F32.9 ; GERD (gastroesophageal reflux disease) K21.9 and History of long-term use of multiple prescription drugs Z92.29 [place] [address] [place] [address] Jan, [place] [address] [place] [id number] [address] [place] [address] Jan, Well woman exam Z01.419 ; BM I 45.0-49.9, adult Z68.42 ; Family history of diabetes mellitus Z83.3 and Chronic pain G89.29 [place] [address] [place] [id number] [address] [place] [address] December, Chronic pain G89.29 ; Essent ial hypertension I10 ; Depressive disorder, not elsewhere classified F32.9 ; GERD (gastroesophageal reflux disease) K21.9 ; 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 ; History of long-term use of multiple prescription drugs Z92.29 and Obesity E66.9 [place] [address] [place] [id number] [address] [place] [address] Oct, [place] [address] [address] 07 Oct, 2015 Well woman exam Z01.419 [...] smear Z12.4 and No natural teeth K00.0 [place] [address] [address] Oct, [address] [address] Sep, Chronic pain G89.29 ; Essent ial hypertension I10 ; GERD (gastroesophageal reflux disease) K21.9 ; 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 ; Skin infection L08.9 and History of long-term use of multiple prescription drugs Z92.29 [place] [address] [place] [id number] [address] [place] [address] Aug, [place] [address] [address] Jul, [place] [address] [address] Jul, [place] [address] [place] [id number] [address] [place] [address] Jul, Upper respiratory infection J06.9 [place] [address] [place] [address] Jul, Depressive disorder, not els ewhere classified F32.9 [facility] [address] [address] Jul, Chronic pain 338.29 [place] [address] [address] Jul, Chronic pain G89.29 [place] [address] [address] Jun, Poison josep L23.7 [place] [address] [address] Jun, Allergic contact dermatitis due to plants, except food L23.7 [place] [address] [address] Jun, Essential hypertension I10 ; Chronic pain G89.29 ; GERD (gastroesophageal reflux disease) K21.9 and Numbness and tingling in hands R20.2 [place] [id number] [address] May, [place] [address] [address] Apr, [place] [address] [address] Mar, [facility] [address] [address] Feb, Abdominal pain, left lateral 789.09 and Constipation 564.00 [place] [address] [address] Feb, Depressive disorder, not els ewhere classified 311 and No condition on [place] II V71.09 [place] [address] [address] Feb, Spider bite 989.5 and Depres homar 311 [place] [id number] [facility] [id number] [address] [place] [address] Feb, [facility] [address] [facility] [id number] [address] [place] [address] Feb, Chronic pain 338.29 ; Arthro zonia 716.90 and GERD (gastroesophageal reflux disease) 530.81 [facility] [address] [facility] [id number] [address] [place] [address] Jan, Insect bites 919.4 [facility] [address] [facility] [id number] [address] [place] [address] Jan, [facility] [address] [facility] [id number] [address] [place] [address] December, Skin infection, bacterial 68 6.9 ; Conjunctivitis 372.30 and Insect bites 919.4 [facility] [address] [facility] [id number] [address] [place] [address] December, Chronic pain 338.29 ; Arthro zonia 716.90 ; Skin infection, bacterial 686.9 and Conjunctivitis 372.30 [facility] [address] [facility] [id number] [address] [place] [address] December, [facility] [address] [facility] [id number] [address] [place] [address] Nov, [facility] [address] [facility] [id number] [address] [place] [address] Nov, [facility] [address] [facility] [id number] [address] [place] [phone] Oct, [facility] [address] [facility] [id number] [address] [place] [phone] Oct, [facility] [address] [facility] [id number] [address] [place] [phone] Sep, [facility] [address] [facility] [id number] [address] [place] [phone] Sep, [facility] [address] [id number] [address] [place] [address], [place] [address] Aug, [facility] [address] [id number] [address] [place] [address], [place] [address] Aug, [facility] [address] [id number] [address] [place] [address], [place] [address] Aug, [facility] [address] [id number] [address] [place] [address], [place] [address] Aug, [facility] [address] [id number] [address] [place] [address], [place] [address] 30 Jul, 2014 [facility] [address] [id number] [address] [place] [address], [place] [id number] Jul, [facility] [address] [id number] [address] [place] [address], [place] [address] Jul, [facility] [address] [id number] [address] [place] [address], [place] [address] Jul, [facility] [address] [id number] [address] [place] [address], [place] [address] Jul, [facility] [address] [id number] [address] [place] [address], [place] [address] Jul, [facility] [address] [id number] [address] [place] [address], [place] [address] 15 Jul, 2014 [facility] [address] [id number] [address] [place] [address], [place] [address] Jul, [facility] [address] [id number] [address] [place] [address], [place] [address] Jul, [facility] [address] [id number] [address] [place] [address], [place] [address] 13 Jun, 2014 [facility] [address] [id number] [address] [place] [address], [place] [address] 13 Jun, 2014 [facility] [address] [id number] [address] [place] [address], [place] [address] Jun, [facility] [address] [id number] [address] [place] [address], [place] [address] Jun, [facility] [address] [id number] [address] [place] [address], [place] [address] Jun, [facility] [address] [id number] [address] [place] [address], [place] [address] Jun, [facility] [address] [id number] [address] [place] [address], [place] [address] Jun, [facility] [address] [id number] [address] [place] [address], [place] [address] Jun, [facility] [address] [id number] [address] [place] [address], [place] [address] May, [facility] [address] [id number] [address] [place] [address], [place] [address] May, [facility] [address] [id number] [address] [place] [address], [place] [address] May, [facility] [address] [id number] [address] [place] [address], [place] [address] May, [facility] [address] [id number] [address] [place] [address], [place] [address] May, [facility] [address] [id number] [address] [place] [address], [place] [address] Apr, [facility] [address] [id number] [address] [place] [id number] 26 Apr, 2013 [facility] [address] [id number] [address] [place] [address], [place] [id number] 25 Apr, 2014 [facility] [address] [id number] [address] [place] [address], [place] [address] 25 Apr, 2014 [facility] [address] [id number] [address] [place] [address], [place] [address] 18 Apr, 2014 [facility] [address] [id number] [facility] [place] [address] 18 Apr, 2013 [facility] [address] [id number] [address] [place] [address], [place] [address] 18 Apr, 2013 [facility] [address] [id number] [address] [place] [address], [place] [address] 18 Apr, 2014 [facility] [address] [id number] [address] [place] [address], [place] [address] 04 Apr, 2014 [facility] [address] [id number] [address] [place] [address], [place] [id number] Apr, [facility] [address] [id number] [address] [place] [address], [place] [id number] Mar, [facility] [address] [id number] [address] [place] [address], [place] [id number] Mar, [facility] [address] [id number] [address] [place] [address], [place] [id number] Mar, [facility] [address] [id number] [address] [place] [address], [place] [id number] Mar, [facility] [address] [id number] [address] [place] [address], [place] [id number] Mar, [facility] [address] [id number] [address] [place] [address], [place] [id number] Mar, [facility] [address] [id number] [address] [place] [address], [place] [id number] Feb, [facility] [address] [id number] [address] [place] [address], [place] [id number] Feb, [facility] [address] [id number] [address] [place] [address], [place] [id number] Jan, [facility] [address] [id number] [address] [place] [address], [place] [id number] Jan, [facility] [address] [id number] [address] [place] [address], [place] [id number] Jan, [facility] [address] [id number] [address] [place] [address], [place] [id number] Jan, [facility] [address] [id number] [address] [place] [address], [place] [id number] December, [facility] [address] [id number] [address] [place] [address], [place] [id number] December, [facility] [address] [id number] [address] [place] [address], [place] [id number] December, [facility] [address] [id number] [address] [place] [address], [place] [id number] December, [facility] [address] [id number] [address] [place] [address], [place] [id number] December, [facility] [address] [id number] [address] [place] [address], [place] [id number] December, [facility] [address] [id number] [address] [place] [address], [place] [id number] December, [facility] [address] [id number] [address] [place] [address], [place] [id number] December, [facility] [address] [id number] [address] [place] [address], [place] [id number] December, [facility] [address] [id number] [address] [place] [address], [place] [id number] Nov, [facility] [address] [id number] [address] [place] [address], [place] [id number] Nov, [facility] [address] [id number] [address] [place] [address], [place] [address] Nov, [facility] [address] [id number] [address] [place] [address], [place] [address] Nov, [facility] [address] [id number] [address] [place] [address], [place] [address] Nov, [facility] [address] [id number] [address] [place] [address], [place] [address] Nov, [facility] [address] [id number] [address] [place] [address], [place] [address] Nov, [facility] [address] [id number] [address] [place] [address], [place] [address] Nov, [facility] [address] [id number] [address] [place] [address], [place] [address] Nov, [facility] [address] [id number] [address] [place] [address], [place] [address] Nov, [facility] [address] [id number] [address] [place] [address], [place] [address] Oct, [facility] [address] [id number] [address] [place] [address], [place] [id number] Oct, [facility] [address] [id number] [address] [place] [address], [place] [address] Sep, [facility] [address] [id number] [address] [place] [address], [place] [address] Sep, [facility] [address] [id number] [address] [place] [address], [place] [address] Aug, [facility] [address] [id number] [address] [place] [address], [place] [address] Aug, [facility] [address] [id number] [address] [place] [address], [place] [address] Aug, [facility] [address] [id number] [address] [place] [address], [place] [address] Aug, [facility] [address] [id number] [address] [place] [address], [place] [address] Jul, [facility] [address] [id number] [address] [place] [address], [place] [address] Jul, [facility] [address] [id number] [address] [place] [address], [place] [address] Jul, [facility] [address] [id number] [address] [place] [address], [place] [address] Jul, [facility] [address] [id number] [address] [place] [address], [place] [address] Jun, [facility] [address] [id number] [address] [place] [address], [place] [address] Jun, [facility] [address] [id number] [address] [place] [address], [place] [address] May, [facility] [address] [id number] [address] [place] [address], [place] [address] May, [facility] [address] [id number] [address] [place] [address], [place] [address] May, [facility] [address] [id number] [address] [place] [address], [place] [address] May, [facility] [address] [id number] [address] [place] [address], [place] [address] May, [facility] [address] [id number] [address] [place] [address], [place] [address] May, [facility] [address] [id number] [address] [place] [address], [place] [address] 30 Apr, 2013 [facility] [address] [id number] [address] [place] [address], [place] [address] 23 Apr, 2013 [facility] [address] [id number] [address] [place] [address], [place] [address] 03 Apr, 2013 [facility] [address] [id number] [address] [place] [address], [place] [address] Feb, [facility] [address] [id number] [address] [place] [address], [place] [address] Jan, [facility] [address] [id number] [address] [place] [address], [place] [address] Jan, [facility] [address] [id number] [address] [place] [address], [place] [address] Jan, [facility] [address] [id number] [address] [place] [address], [place] [address] 14 Jan, 2013 [facility] [address] [id number] [address] [place] [address], [place] [address] December, [facility] [address] [id number] [address] [place] [address], [place] [address] December, [facility] [address] [id number] [address] [place] [address], [place] [address] 24 Nov, 2012 [facility] [address] [id number] [address] [place] [address], [place] [address] Nov, [facility] [address] [id number] [address] [place] [address], [place] [address] Nov, [facility] [address] [id number] [address] [place] [address], [place] [address] Nov, [facility] [address] [id number] [address] [place] [address], [place] [address] Nov, [facility] [address] [id number] [address] [place] [address], [place] [address] Nov, [facility] [address] [id number] [address] [place] [address], [place] [address] Nov, [facility] [address] [id number] [address] [place] [address], [place] [address] 27 Oct, 2012 [facility] [address] [id number] [address] [place] [address], [place] [address] 18 Oct, 2012 [facility] [address] [id number] [address] [place] [address], [place] [address] 14 Oct, 2012 [facility] [address] [id number] [address] [place] [address], [place] [address] 13 Oct, 2012 [facility] [address] [id number] [address] [place] [address], [place] [address] 12 Oct, 2012 [facility] [address] [id number] [address] [place] [address], [place] [address] Oct, [facility] [address] [id number] [address] [place] [address], [place] [address] Oct, [facility] [address] [id number] [address] [place] [address], [place] [address] Sep, [facility] [address] [id number] [address] [place] [address], [place] [address] Sep, [facility] [address] [id number] [address] [place] [address], [place] [address] Aug, [facility] [address] [id number] [address] [place] [address], [place] [id number] Aug, [facility] [address] [id number] [address] [place] [address], [place] [address] Jul, [facility] [address] [id number] [address] [place] [address], [place] [address] Jul, [facility] [address] [id number] [address] [place] [address], [place] [address] Jul, [facility] [address] [id number] [address] [place] [address], [place] [address] Jul, [facility] [address] [id number] [address] [place] [address], [place] [address] Jul, [facility] [address] [id number] [address] [place] [address], [place] [address] Jul, [facility] [address] [id number] [address] [place] [address], [place] [address] Jul, [facility] [address] [id number] [address] [place] [address], [place] [address] Jul, [facility] [address] [id number] [address] [place] [address], [place] [address] Jun, [facility] [address] [id number] [address] [place] [id number] Jun, IMMUNIZATIONS No Known Immunizations SOCIAL HISTORY [...] -- total 11/2012 Hospitalization History ER- in [place] due to left knee 8
--- OUTSIDE RECORDS SUMMARY | 2020-02-11 03:19 | XMS REPORT ---
Author Author АНДРЕЙ Madelineshawn LEONG Organization [facility] Address [address] [place] [address] Care Team Providers Care Film Printer Name Role Phone KWESIKennedy DANG Unavailable PROBLEMS Type Condition ICD9-CM Code SKO17-WK Code Onset Dates Condition S tatus SNOMED Code Problem Pre-diabetes R73.09 Active 0680885 02 Problem Chronic pain G89.29 Active 4580439 1 Problem GERD (gastroesophageal reflux disease) K21.9 Active 377455584 Problem Essential hypertension I10 Active 85508894 Problem Primary insomnia F51.01 Active 397 2004 Problem Numbness and tingling in hands R20.2 Active 914287677 Problem History of abnormal cervical Pap smear Z87.898 Active 153362771 Problem Stasis dermatitis of both legs I87.2 Active 11319740 Problem BMI 45.0-49.9, adult Z68.42 Active 781892582 ALLERGIES No Information ENCOUNTERS Encounter Location Date Diagnosis [place] [address] [place] [id number] [place] [id number] Mar, [place] [address] [place] [id number] [place] [address] Feb, [place] [address] [place] [id number] [place] [address] Feb, Chronic pain G89.29 and BMI 45.0-49.9, adult Z68.42 [place] [address] [place] [id number] [place] [address] Jan, [place] [address] [place] [id number] [place] [address] Jan, Chronic pain G89.29 and BMI 45.0-49.9, adult Z68.42 [place] [address] [place] [id number] [place] [address] Jan, [facility] [address] [facility] [id number] [address] [place] [address] December, Chronic pain G89.29 and BMI 45.0-49.9, adult Z68.42 [place] [address] [facility] [id number] [address] [place] [address] Nov, Morbid obesity E66.01 and Ce llulitis of leg, left L03.116 [place] [address] [facility] [id number] [address] [place] [address] 15 Nov, 2018 Cellulitis of left lower ext remity L03.116 and Morbid obesity E66.01 [facility] [address] [facility] [id number] [address] [place] [phone] Nov, [facility] [address] [place] [id number] [address] [place] [address] Nov, Morbid obesity E66.01 and Ce llulitis of left lower extremity L03.116 [facility] [address] [facility] [id number] [address] [place] [address] Nov, Chronic pain G89.29 and BMI 45.0-49.9, adult Z68.42 [place] [address] [facility] [id number] [address] [place] [address] Oct, BMI 45.0-49.9, adult Z68.42 and Chronic pain G89.29 [place] [address] [facility] [id number] [address] [place] [address] 14 Sep, 2018 BMI 45.0-49.9, adult Z68.42 and Chronic pain G89.29 [place] [address] [facility] [id number] [address] [place] [address] 05 Sep, 2018 BMI 45.0-49.9, adult Z68.42 and Essential hypertension I10 [place] [address] [facility] [id number] [address] [place] [address] Aug, BMI 45.0-49.9, adult Z68.42 ; Chronic pain G89.29 ; Essential hypertension I10 and Primary insomnia F51.01 [facility] [address] [facility] [id number] [address] [place] [address] Aug, Chronic pain G89.29 [facility] [address] [facility] [id number] [address] [place] [address] Jul, Chronic pain G89.29 [facility] [address] [facility] [id number] [address] [place] [address] Jun, Chronic pain G89.29 [facility] [address] [facility] [id number] [address] [place] [address] May, Chronic pain G89.29 [facility] [address] [facility] [id number] [address] [place] [address] May, BMI 40.0-44.9, adult Z68.41 ; Other chronic pain G89.29 ; Pain in right hip M25.551 and Acute pain of left knee M25.562 [facility] [address] [facility] [id number] [address] [place] [address] May, Chronic pain G89.29 [facility] [address] [facility] [id number] [address] [place] [address] Apr, Chronic pain G89.29 [facility] [address] [facility] [id number] [address] [place] [phone] Mar, Poison josep L23.7 [facility] [address] [facility] [id number] [address] [place] [address] Mar, Chronic pain G89.29 [facility] [address] [facility] [id number] [address] [place] [address] Feb, Chronic pain G89.29 [facility] [address] [facility] [id number] [address] [place] [phone] Feb, Poison josep L23.7 [place] [id number] [facility] [id number] [address] [place] [address] Jan, Chronic pain G89.29 [facility] [address] [facility] [id number] [address] [place] [address] December, Chronic pain G89.29 [facility] [address] [facility] [id number] [address] [place] [address] Nov, Long-term use of high-risk m edication Z79.899 [facility] [address] [facility] [id number] [address] [place] [address] Nov, Chronic pain G89.29 [facility] [address] [facility] [id number] [address] [place] [address] Oct, Chronic pain G89.29 ; Pre-di abetes R73.09 ; Long-term use of high- risk medication Z79.899 ; Allergic rhinitis, unspecified seasonality, unspecified trigger J30.9 ; BMI 45.0-49.9, adult Z68.42 and Essential hypertension I10 [facility] [address] [facility] [id number] [address] [place] [address] Oct, Chronic pain G89.29 [place] [address] [facility] [id number] [address] [place] [address] Sep, Chronic pain G89.29 [place] [address] [facility] [id number] [address] [place] [address] Aug, Chronic pain G89.29 [place] [address] [facility] [id number] [address] [place] [phone] Jul, [place] [address] [facility] [id number] [address] [place] [address] Jul, [facility] [address] [facility] [id number] [address] [place] [address] Jun, Chronic pain G89.29 ; BMI 45 .0-49.9, adult Z68.42 ; Pre-diabetes R73.09 ; Essential hypertension I10 ; GERD (gastroesophageal reflux disease) K21.9 ; Yeast dermatitis B37.2 ; Dysuria R30.0 ; Acute non-recurrent maxillary sinusitis J01.00 and Acute cystitis with hematuria N30.01 [facility] [address] [facility] [id number] [address] [place] [address] 13 Jun, 2017 Chronic pain G89.29 [place] [address] [facility] [id number] [address] [place] [address] Jun, Acute non-recurrent maxillar y sinusitis J01.00 and BMI 45.0-49.9, adult Z68.42 [place] [address] [facility] [id number] [address] [place] [address] May, [place] [address] [place] [id number] [place] [address] May, Chronic pain G89.29 [place] [address] [place] [id number] [place] [address] May, [place] [address] [id number] [address] [place] [address] Apr, Chronic pain G89.29 [place] [address] [place] [id number] [place] [address] Mar, [place] [address] [place] [id number] [place] [address] Mar, Essential hypertension I10 a nd Pre-diabetes R73.09 [place] [address] [place] [id number] [place] [address] Mar, Chronic pain G89.29 ; Essent ial hypertension I10 ; Depressive disorder, not elsewhere classified F32.9 ; GERD (gastroesophageal reflux disease) K21.9 ; Pre-diabetes R73.09 ; Stasis dermatitis of both legs I87.2 and Acute non-recurrent maxillary sinusitis J01.00 [place] [address] [place] [id number] [place] [address] Mar, Chronic pain G89.29 [place] [address] [facility] [id number] [address] [place] [address] Mar, Achilles tendinitis of right lower extremity M76.61 and Tinea corporis B35.4 [place] [address] [facility] [id number] [address] [place] [address] 17 Feb, 2017 Yeast dermatitis B37.2 [place] [address] [facility] [id number] [address] [place] [address] Feb, Candidal intertrigo B37.2 an d Acute right ankle pain M25.571 [place] [address] [facility] [id number] [address] [place] [address] Feb, Chronic pain G89.29 [place] [address] [facility] [id number] [address] [place] [phone] Jan, [place] [address] [place] [id number] [place] [address] Jan, Chronic pain G89.29 [place] [address] [place] [id number] [place] [address] December, Chronic pain G89.29 ; Essent ial hypertension I10 ; Depressive disorder, not elsewhere classified F32.9 ; GERD (gastroesophageal reflux disease) K21.9 ; Pre-diabetes R73.09 ; Screening breast examination Z12.39 ; Stasis dermatitis of both legs I87.2 and Yeast dermatitis B37.2 [place] [address] [facility] [id number] [address] [place] [address] Nov, Chronic pain G89.29 [place] [address] [facility] [id number] [address] [place] [address] Nov, Cellulitis of left lower ext remity L03.116 [place] [address] [facility] [id number] [address] [place] [address] 17 Nov, 2016 Cellulitis of left lower ext remity L03.116 [place] [address] [place] [id number] [place] [address] Oct, Yeast dermatitis B37.2 [place] [address] [facility] [id number] [address] [place] [address] Oct, Chronic pain G89.29 [place] [address] [facility] [id number] [address] [place] [address] Sep, Chronic pain G89.29 ; Essent ial hypertension I10 ; Depressive disorder, not elsewhere classified F32.9 and GERD (gastroesophageal reflux disease) K21.9 [place] [address] [facility] [id number] [address] [place] [address] Aug, Chronic pain G89.29 [place] [address] [facility] [id number] [address] [place] [address] Aug, Cough R05 ; Rash R21 and Vinay h and nonspecific skin eruption R21 [place] [address] [place] [id number] [place] [address] Jul, Chronic pain G89.29 [place] [address] [place] [id number] [place] [address] Jun, Chronic pain G89.29 ; Bronch itis J40 ; Essential hypertension I10 ; Depressive disorder, not elsewhere classified F32.9 ; GERD (gastroesophageal reflux disease) K21.9 and History of long-term use of multiple prescription drugs Z92.29 [place] [address] [place] [id number] [place] [address] Jun, Bronchitis J40 ; Chills R68. 83 and Sore throat J02.9 [facility] [address] [facility] [id number] [address] [place] [phone] May, [place] [address] [place] [id number] [place] [address] 29 Apr, 2016 [facility] WALK IN [facility] [address] [facility] [id number] [address] [place] [address] 19 Apr, 2016 Acute mucoid otitis media of both ears H65.113 [place] [address] [address] Apr, Yeast dermatitis B37.2 and H ematuria R31.9 [place] [address] [address] Mar, [place] [address] [address] Mar, [place] [address] [address] Feb, Left anterior knee pain M25. [address] [address] Feb, Chronic pain G89.29 ; Essent ial hypertension I10 ; Depressive disorder, not elsewhere classified F32.9 ; GERD (gastroesophageal reflux disease) K21.9 and History of long-term use of multiple prescription drugs Z92.29 [place] [address] [address] Jan, [place] [address] [address] Jan, Well woman exam Z01.419 ; BM I 45.0-49.9, adult Z68.42 ; Family history of diabetes mellitus Z83.3 and Chronic pain G89.[address] [address] December, Chronic pain G89.29 ; Essent ial hypertension I10 ; Depressive disorder, not elsewhere classified F32.9 ; GERD (gastroesophageal reflux disease) K21.9 ; 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 ; History of long-term use of multiple prescription drugs Z92.29 and Obesity E66.9 [place] [address] [address] Oct, [place] [address] [address] Oct, Well woman exam Z01.419 ; BM [...] smear Z12.4 and No natural teeth K00.0 [place] [address] [place] [id number] [address] [place] [address] Oct, [place] [address] [address] Sep, Chronic pain G89.29 ; Essent ial hypertension I10 ; GERD (gastroesophageal reflux disease) K21.9 ; 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 ; Skin infection L08.9 and History of long-term use of multiple prescription drugs Z92.29 [place] [address] [place] [id number] [place] [address] Aug, [place] [address] [place] [id number] [place] [address] Jul, [place] [address] [place] [id number] [address] [place] [address] Jul, [place] [address] [place] [id number] [place] [address] Jul, Upper respiratory infection J06.9 [place] [address] [place] [id number] [place] [address] Jul, Depressive disorder, not els ewhere classified F32.9 [place] [address] [place] [id number] [place] [address] Jul, Chronic pain 338.29 [place] [address] [place] [id number] [place] [address] Jul, Chronic pain G89.29 [place] [address] [address] 16 Jun, 2015 Poison josep L23.7 [place] [address] [address] Jun, Allergic contact dermatitis due to plants, except food L23.7 [place] [address] [address] Jun, Essential hypertension I10 ; Chronic pain G89.29 ; GERD (gastroesophageal reflux disease) K21.9 and Numbness and tingling in hands R20.2 [place] [address] [address] May, [place] [address] [address] Apr, [place] [address] [address] Mar, [place] [address] [address] Feb, Abdominal pain, left lateral 789.09 and Constipation 564.[address] [address] Feb, Depressive disorder, not els ewhere classified 311 and No condition on Wiley II V71.09 [place] [address] [address] Feb, Spider bite 989.5 and Depres homar 311 [place] [address] [address] Feb, [place] [address] [address] Feb, Chronic pain 338.29 ; Arthro zonia 716.90 and GERD (gastroesophageal reflux disease) 530.81 [place] [address] [address] Jan, Insect bites 919.4 [facility] [address] [id number] [address] [place] [address] Jan, [facility] [address] [id number] [address] [place] [address] December, Skin infection, bacterial 68 6.9 ; Conjunctivitis 372.30 and Insect bites 919.4 [facility] [address] [id number] [address] [place] [address] December, Chronic pain 338.29 ; Arthro zonia 716.90 ; Skin infection, bacterial 686.9 and Conjunctivitis 372.30 [facility] [address] [id number] [address] [place] [address] December, [facility] [address] [id number] [address] [place] [phone] Nov, [facility] [address] [id number] [address] [place] [address] Nov, [facility] [address] [id number] [address] [place] [id number] Oct, [facility] [address] [id number] [address] [place] [address] Oct, [facility] [address] [id number] [address] [place] [address] Sep, [facility] [address] [id number] [address] [place] [address] Sep, [facility] [address] [id number] [address] [place] [address] Aug, [facility] [address] [id number] [address] [place] [id number] Aug, [facility] [address] [id number] [address] [place] [address] Aug, [facility] [address] [id number] [address] [place] [address] Aug, [facility] [address] [id number] [address] [place] [address], [place] [address] Jul, [facility] [address] [id number] [address] [place] [address], [place] [address] Jul, [facility] [address] [id number] [address] [place] [address], [place] [address] Jul, [facility] [address] [id number] [address] [place] [address], [place] [address] Jul, [facility] [address] [id number] [address] [place] [address], [place] [address] Jul, [facility] [address] [id number] [address] [place] [address], [place] [address] Jul, [facility] [address] [id number] [address] [place] [address], [place] [address] Jul, [facility] [address] [id number] [address] [place] [address], [place] [address] Jul, [facility] [address] [id number] [address] [place] [address], [place] [address] Jul, [facility] [address] [id number] [address] [place] [address], [place] [address] Jun, [facility] [address] [id number] [address] [place] [address], [place] [address] Jun, [facility] [address] [id number] [address] [place] [address], [place] [address] Jun, [facility] [address] [id number] [address] [place] [address], [place] [address] Jun, [facility] [address] [id number] [address] [place] [address], [place] [address] Jun, [facility] [address] [id number] [address] [place] [address], [place] [address] Jun, [facility] [address] [id number] [address] [place] [id number] Jun, [facility] [address] [id number] [address] [place] [address], [place] [address] Jun, [facility] [address] [id number] [address] [place] [address], [place] [address] May, [facility] [address] [id number] [address] [place] [address], [place] [address] May, [facility] [address] [id number] [address] [place] [address], [place] [address] 16 May, 2014 [facility] [address] [id number] [address] [place] [address], [place] [address] May, [facility] [address] [id number] [address] [place] [address], [place] [address] May, [facility] [address] [id number] [address] [place] [address], [place] [address] 26 Apr, 2013 [facility] [address] [id number] [address] [place] [address], [place] [address] 26 Apr, 2013 [facility] [address] [id number] [address] [place] [address], [place] [address] 25 Apr, 2013 [facility] [address] [id number] [address] [place] [address], [place] [address] 25 Apr, 2013 [facility] [address] [id number] [address] [place] [address], [place] [address] 18 Apr, 2013 [facility] [address] [id number] [address] [place] [address], [place] [address] 18 Sep, 2013 [facility] [address] [id number] [address] [place] [address], [place] [address] 18 Apr, 2013 [facility] [address] [id number] [address] [place] [address], [place] [address] 18 Apr, 2013 [facility] [address] [id number] [address] [place] [address], [place] [address] 04 Apr, 2013 [facility] [address] [id number] [facility] [place] [address] Apr, [facility] [address] [id number] [facility] [place] [address] Mar, [facility] [address] [id number] [address] [place] [address] Mar, [facility] [address] [id number] [address] [place] [address], [place] [address] Mar, [facility] [address] [id number] [address] [place] [address], [place] [address] Mar, [facility] [address] [id number] [address] [place] [address], [place] [address] Mar, [facility] [address] [id number] [address] [place] [address], [place] [address] Mar, [facility] [address] [id number] [address] [place] [address], [place] [address] Feb, [facility] [address] [id number] [address] [place] [address], [place] [address] Feb, [facility] [address] [id number] [address] [place] [address], [place] [address] Jan, [facility] [address] [id number] [address] [place] [address], [place] [address] Jan, [facility] [address] [id number] [address] [place] [address], [place] [address] Jan, [facility] [address] [id number] [address] [place] [address], [place] [address] Jan, [facility] [address] [id number] [address] [place] [address], [place] [address] December, [facility] [address] [id number] [address] [place] [address], [place] [address] December, [facility] [address] [id number] [address] [place] [address], [place] [address] December, [facility] [address] [id number] [address] [place] [address] December, [facility] [address] [id number] [address] [place] [address], [place] [address] December, [facility] [address] [id number] [address] [place] [address], [place] [address] December, [facility] [address] [id number] [address] [place] [address], [place] [address] December, [facility] [address] [id number] [address] [place] [address], [place] [address] December, [facility] [address] [id number] [address] [place] [address], [place] [address] December, [facility] [address] [id number] [address] [place] [address], [place] [address] Nov, [facility] [address] [id number] [address] [place] [address], [place] [address] Nov, [facility] [address] [id number] [address] [place] [address], [place] [address] Nov, [facility] [address] [id number] [address] [place] [address], [place] [address] Nov, [facility] [address] [id number] [address] [place] [address], [place] [address] Nov, [facility] [address] [id number] [address] [place] [address], [place] [address] Nov, [facility] [address] [id number] [address] [place] [address], [place] [address] Nov, [facility] [address] [id number] [address] [place] [address], [place] [address] Nov, [facility] [address] [id number] [address] [place] [address], [place] [address] Nov, [facility] [address] [id number] [address] [place] [address], [place] [address] Nov, [facility] [address] [id number] [address] [place] [address], [place] [address] Oct, [facility] [address] [id number] [address] [place] [address], [place] [address] Oct, [facility] [address] [id number] [address] [place] [address], [place] [address] Sep, [facility] [address] [id number] [address] [place] [address], [place] [address] Sep, [facility] [address] [id number] [address] [place] [address], [place] [address] Aug, [facility] [address] [id number] [address] [place] [address], [place] [address] Aug, [facility] [address] [id number] [address] [place] [address], [place] [address] Aug, [facility] [address] [id number] [address] [place] [address], [place] [address] Aug, [facility] [address] [id number] [address] [place] [address], [place] [address] Jul, [facility] [address] [id number] [address] [place] [address], [place] [address] Jul, [facility] [address] [id number] [address] [place] [address], [place] [address] Jul, [facility] [address] [id number] [address] [place] [address], [place] [address] Jul, [facility] [address] [id number] [address] [place] [address], [place] [address] Jun, [facility] [address] [id number] [address] [place] [address], [place] [address] Jun, [facility] [address] [id number] [address] [place] [address], [place] [address] May, [facility] [address] [id number] [address] [place] [address], [place] [address] May, [facility] [address] [id number] [address] [place] [address], [place] [address] May, [facility] [address] [id number] [address] [place] [address], [place] [address] May, [facility] [address] [id number] [address] [place] [address], [place] [address] May, [facility] [address] [id number] [address] [place] [address], [place] [address] May, [facility] [address] [id number] [address] [place] [address], [place] [address] 30 Apr, 2013 [facility] [address] [id number] [address] [place] [address], [place] [address] Apr, [facility] [address] [id number] [address] [place] [address], [place] [address] Apr, [facility] [address] [id number] [address] [place] [address], [place] [address] Feb, [facility] [address] [id number] [address] [place] [address], [place] [address] Jan, [facility] [address] [id number] [address] [place] [address], [place] [address] Jan, [facility] [address] [id number] [address] [place] [address], [place] [address] Jan, [facility] [address] [id number] [address] [place] [address], [place] [address] Jan, [facility] [address] [id number] [address] [place] [address], [place] [address] December, [facility] [address] [id number] [address] [place] [address], [place] [address] December, [facility] [address] [id number] [address] [place] [address], [place] [address] 24 Nov, 2012 [facility] [address] [id number] [address] [place] [address], [place] [address] Nov, [facility] [address] [id number] [address] [place] [address], [place] [address] Nov, [facility] [address] [id number] [address] [place] [address], [place] [address] Nov, [facility] [address] [id number] [address] [place] [address], [place] [address] Nov, [facility] [address] [id number] [address] [place] [address], [place] [address] Nov, [facility] [address] [id number] [address] [place] [address], [place] [address] Nov, [facility] [address] [id number] [address] [place] [address], [place] [address] 27 Oct, 2012 [facility] [address] [id number] [address] [place] [address], [place] [address] 18 Oct, 2012 [facility] [address] [id number] [address] [place] [address], [place] [address] 14 Oct, 2012 [facility] [address] [id number] [address] [place] [address], [place] [address] 13 Oct, 2012 [facility] [address] [id number] [address] [place] [address], [place] [address] Oct, [facility] [address] [id number] [address] [place] [address], [place] [address] Oct, [facility] [address] [id number] [address] [place] [address], [place] [address] 08 Oct, 2012 [facility] [address] [id number] [address] [place] [address], [place] [address] 20 Sep, 2012 [facility] [address] [id number] [address] [place] [address], [place] [address] Sep, [facility] [address] [id number] [address] [place] [address] Aug, [facility] [address] [id number] [address] [place] [address] Aug, [facility] [address] [id number] [address] [place] [id number] Jul, [facility] [address] [id number] [address] [place] [id number] Jul, [facility] [address] [id number] [address] [place] [address] Jul, [facility] [address] [id number] [address] [place] [address] Jul, [facility] [address] [id number] [address] [place] [id number] Jul, [facility] [address] [id number] [address] [place] [id number] Jul, [facility] [address] [id number] [address] [place] [address] Jul, [facility] [address] [id number] [address] [place] [id number] Jul, [facility] [address] [id number] [address] [place] [id number] Jun, [facility] [address] [id number] [address] [place] [id number] Jun, IMMUNIZATIONS No Known Immunizations SOCIAL HISTORY Never Assessed REASON FOR VISIT PLAN OF CARE VITAL SIGNS Height 62 in 2014-08-18 Weight 247.99 lbs 2014-08-18 Temperature 97.6 degrees Fahrenheit 2014-08-18 Heart Rate 80 bpm 2014-08-18 Respiratory Rate 20 2014-08-18 Blood pressure systolic 130 mmHg 2014-08-18 Blood pressure diastolic 84 mmHg 2014-08-18 MEDICATIONS Unknown Medications RESULTS No Results PROCEDURES [...] -- total 11/2012 Hospitalization History ER- in [place] due to left knee 8
--- OUTSIDE RECORDS SUMMARY | 2020-02-11 03:19 | XMS REPORT ---
Author Author АНДРЕЙ Madelineshawn LEONG Organization [facility] Address [address] [place] [address] Care Team Providers Care Religious Educator Name Role Phone KWESIKennedy DANG Unavailable PROBLEMS Type Condition ICD9-CM Code HYF38-SP Code Onset Dates Condition S tatus SNOMED Code Problem Pre-diabetes R73.09 Active 8531605 02 Problem Chronic pain G89.29 Active 0622854 1 Problem GERD (gastroesophageal reflux disease) K21.9 Active 347865700 Problem Essential hypertension I10 Active 62962530 Problem Primary insomnia F51.01 Active 397 2004 Problem Numbness and tingling in hands R20.2 Active 702035637 Problem History of abnormal cervical Pap smear Z87.898 Active 149835869 Problem Stasis dermatitis of both legs I87.2 Active 08390264 Problem BMI 45.0-49.9, adult Z68.42 Active [id number] ALLERGIES No Information ENCOUNTERS Encounter Location Date Diagnosis [place] [address] [place] [id number] [address] [place] [address] Jan, [place] [address] [place] [id number] [address] [place] [address] Jan, Chronic pain G89.29 and BMI 45.0-49.9, adult Z68.42 [facility] [address] [facility] [id number] [address] [place] [address] Jan, [place] [address] [place] [id number] [place] [address] December, Chronic pain G89.29 and BMI 45.0-49.9, adult Z68.42 [facility] [address] [facility] [id number] [address] [place] [address] Nov, Morbid obesity E66.01 and Ce llulitis of leg, left L03.116 [facility] [address] [facility] [id number] [address] [place] [address] 15 Nov, 2018 Cellulitis of left lower ext remity L03.116 and Morbid obesity E66.01 [facility] [address] [facility] [id number] [address] [place] [address] 13 Nov, 2018 [facility] [address] [place] [id number] [place] [address] 12 Nov, 2018 Morbid obesity E66.01 and Ce llulitis of left lower extremity L03.116 [place] [address] [facility] [id number] [address] [place] [address] Nov, Chronic pain G89.29 and BMI 45.0-49.9, adult Z68.42 [place] [address] [place] [id number] [address] [place] [address] Oct, BMI 45.0-49.9, adult Z68.42 and Chronic pain G89.29 [place] [address] [place] [id number] [place] [address] 14 Sep, 2018 BMI 45.0-49.9, adult Z68.42 and Chronic pain G89.29 [place] [address] [place] [id number] [address] [place] [address] 05 Sep, 2018 BMI 45.0-49.9, adult Z68.42 and Essential hypertension I10 [facility] [address] [place] [id number] [place] [address] Aug, BMI 45.0-49.9, adult Z68.42 ; Chronic pain G89.29 ; Essential hypertension I10 and Primary insomnia F51.01 [place] [address] [place] [id number] [place] [address] Aug, Chronic pain G89.29 [place] [address] [place] [id number] [place] [address] Jul, Chronic pain G89.29 [facility] [address] [id number] [address] [place] [address] Jun, Chronic pain G89.29 [facility] [address] [id number] [address] [place] [address] May, Chronic pain G89.29 [facility] [address] [facility] [id number] [address] [place] [address] May, BMI 40.0-44.9, adult Z68.41 ; Other chronic pain G89.29 ; Pain in right hip M25.551 and Acute pain of left knee M25.562 [facility] [address] [id number] [address] [place] [address] May, Chronic pain G89.29 [facility] [address] [facility] [id number] [address] [place] [address] Apr, Chronic pain G89.29 [facility] [address] [facility] [id number] [address] [place] [address] Mar, Poison josep L23.7 [facility] [address] [facility] [id number] [address] [place] [address] Mar, Chronic pain G89.29 [facility] [address] [facility] [id number] [address] [place] [address] Feb, Chronic pain G89.29 [facility] [address] [facility] [id number] [address] [place] [address] Feb, Poison josep L23.7 [facility] [address] [facility] [id number] [address] [place] [address] Jan, Chronic pain G89.29 [facility] [address] [facility] [id number] [address] [place] [address] December, Chronic pain G89.29 [facility] [address] [facility] [id number] [address] [place] [address] Nov, Long-term use of high-risk m edication Z79.899 [facility] [address] [place] [id number] [place] [address] Nov, Chronic pain G89.29 [place] [address] [place] [id number] [place] [address] Oct, Chronic pain G89.29 ; Pre-di abetes R73.09 ; Long-term use of high- risk medication Z79.899 ; Allergic rhinitis, unspecified seasonality, unspecified trigger J30.9 ; BMI 45.0-49.9, adult Z68.42 and Essential hypertension I10 [place] [address] [place] [id number] [place] [address] Oct, Chronic pain G89.29 [place] [address] [place] [id number] [place] [address] Sep, Chronic pain G89.29 [place] [address] [address] Aug, Chronic pain G89.29 [place] [address] [address] Jul, [place] [address] [address] Jul, [place] [address] [address] Jun, Chronic pain G89.29 ; BMI 45 .0-49.9, adult Z68.42 ; Pre-diabetes R73.09 ; Essential hypertension I10 ; GERD (gastroesophageal reflux disease) K21.9 ; Yeast dermatitis B37.2 ; Dysuria R30.0 ; Acute non-recurrent maxillary sinusitis J01.00 and Acute cystitis with hematuria N30.01 [place] [address] [place] [id number] [place] [address] 13 Jun, 2017 Chronic pain G89.29 [place] [address] [address] Jun, Acute non-recurrent maxillar y sinusitis J01.00 and BMI 45.0-49.9, adult Z68.42 [place] [address] [place] [id number] [place] [address] May, [place] [address] [facility] [id number] [address] [place] [address] May, Chronic pain G89.29 [place] [address] [place] [id number] [place] [address] May, [place] [address] [place] [id number] [place] [address] Apr, Chronic pain G89.29 [place] [address] [place] [id number] [place] [address] Mar, [place] [address] [place] [id number] [address] [place] [address] Mar, Essential hypertension I10 a nd Pre-diabetes R73.09 [place] [address] [place] [id number] [address] [place] [address] Mar, Chronic pain G89.29 ; Essent ial hypertension I10 ; Depressive disorder, not elsewhere classified F32.9 ; GERD (gastroesophageal reflux disease) K21.9 ; Pre-diabetes R73.09 ; Stasis dermatitis of both legs I87.2 and Acute non-recurrent maxillary sinusitis J01.00 [place] [id number] [place] [address] Mar, Chronic pain G89.29 [place] [address] [place] [id number] [place] [address] Mar, Achilles tendinitis of right lower extremity M76.61 and Tinea corporis B35.4 [place] [address] [place] [id number] [place] [address] 17 Feb, 2017 Yeast dermatitis B37.2 [place] [address] [place] [address] Feb, Candidal intertrigo B37.2 an d Acute right ankle pain M25.571 [place] [address] [facility] [id number] [address] [place] [address] Feb, Chronic pain G89.29 [place] [address] [facility] [id number] [address] [place] [address] Jan, [place] [address] [facility] [id number] [address] [place] [address] Jan, Chronic pain G89.29 [place] [address] [facility] [id number] [address] [place] [address] December, Chronic pain G89.29 ; Essent ial hypertension I10 ; Depressive disorder, not elsewhere classified F32.9 ; GERD (gastroesophageal reflux disease) K21.9 ; Pre-diabetes R73.09 ; Screening breast examination Z12.39 ; Stasis dermatitis of both legs I87.2 and Yeast dermatitis B37.2 [place] [address] [facility] [id number] [address] [place] [address] Nov, Chronic pain G89.29 [place] [address] [facility] [id number] [address] [place] [address] Nov, Cellulitis of left lower ext remity L03.116 [place] [address] [place] [id number] [place] [address] Nov, Cellulitis of left lower ext remity L03.116 [place] [address] [facility] [id number] [address] [place] [address] Oct, Yeast dermatitis B37.2 [place] [address] [facility] [id number] [address] [place] [address] Oct, Chronic pain G89.29 [place] [address] [facility] [id number] [address] [place] [address] Sep, Chronic pain G89.29 ; Essent ial hypertension I10 ; Depressive disorder, not elsewhere classified F32.9 and GERD (gastroesophageal reflux disease) K21.9 [facility] [address] [address] Aug, Chronic pain G89.29 [place] [address] [address] Aug, Cough R05 ; Rash R21 and Vinay h and nonspecific skin eruption R21 [place] [address] [address] Jul, Chronic pain G89.29 [place] [address] [address] Jun, Chronic pain G89.29 ; Bronch itis J40 ; Essential hypertension I10 ; Depressive disorder, not elsewhere classified F32.9 ; GERD (gastroesophageal reflux disease) K21.9 and History of long-term use of multiple prescription drugs Z92.29 [place] [address] [address] Jun, Bronchitis J40 ; Chills R68. 83 and Sore throat J02.9 [place] [address] [address] May, [place] [address] [address] Apr, [facility] [address] [address] Apr, Acute mucoid otitis media of both ears H65.113 [place] [address] [address] Apr, Yeast dermatitis B37.2 and H ematuria R31.9 [place] [address] [address] Mar, [place] [address] [address] Mar, [place] [address] [address] Feb, Left anterior knee pain M25. [address] [address] Feb, Chronic pain G89.29 ; Essent ial hypertension I10 ; Depressive disorder, not elsewhere classified F32.9 ; GERD (gastroesophageal reflux disease) K21.9 and History of long-term use of multiple prescription drugs Z92.29 [place] [address] [address] Jan, [address] [address] Jan, Well woman exam Z01.419 ; BM I 45.0-49.9, adult Z68.42 ; Family history of diabetes mellitus Z83.3 and Chronic pain G89.[address] [address] December, Chronic pain G89.29 ; Essent ial hypertension I10 ; Depressive disorder, not elsewhere classified F32.9 ; GERD (gastroesophageal reflux disease) K21.9 ; 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 ; History of long-term use of multiple prescription drugs Z92.29 and Obesity E66.[address] [address] Oct, [place] [address] [address] Oct, Well woman exam Z01.419 ; BM [...] and No natural teeth K00.0 [place] [address] [place] [id number] [address] [place] [address] Oct, [place] [address] [address] Sep, Chronic pain G89.29 ; Essent ial hypertension I10 ; GERD (gastroesophageal reflux disease) K21.9 ; 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 ; Skin infection L08.9 and History of long-term use of multiple prescription drugs Z92.29 [place] [address] [address] Aug, [address] [address] Jul, [place] [address] [address] Jul, [address] [address] Jul, Upper respiratory infection J06.[address] [address] Jul, Depressive disorder, not els ewhere classified F32.[address] [address] Jul, Chronic pain 338.[address] [address] Jul, Chronic pain G89.29 [place] [address] [place] [id number] [address] [place] [address] 16 Jun, 2015 Poison josep L23.[address] [address] Jun, Allergic contact dermatitis due to plants, except food L23.7 [place] [id number] [place] [address] Jun, Essential hypertension I10 ; Chronic pain G89.29 ; GERD (gastroesophageal reflux disease) K21.9 and Numbness and tingling in hands R20.2 [place] [address] [address] May, [place] [address] [address] Apr, [place] [address] [address] Mar, [place] [address] [address] Feb, Abdominal pain, left lateral 789.09 and Constipation 564.00 [place] [address] [address] Feb, Depressive disorder, not els ewhere classified 311 and No condition on Schertz II V71.09 [place] [address] [address] Feb, Spider bite 989.5 and Depres homar 311 [place] [address] [address] Feb, [place] [address] [address] Feb, Chronic pain 338.29 ; Arthro zonia 716.90 and GERD (gastroesophageal reflux disease) 530.81 [place] [address] [address] Jan, Insect bites 919.4 [place] [address] [address] Jan, [place] [address] [address] December, Skin infection, bacterial 68 6.9 ; Conjunctivitis 372.30 and Insect bites 919.4 [place] [address] [address] December, Chronic pain 338.29 ; Arthro zonia 716.90 ; Skin infection, bacterial 686.9 and Conjunctivitis 372.30 [facility] [address] [id number] [address] [place] [address] December, [facility] [address] [id number] [address] [place] [address] Nov, [facility] [address] [id number] [address] [place] [address] Nov, [facility] [address] [id number] [address] [place] [address] Oct, [facility] [address] [id number] [address] [place] [address] Oct, [facility] [address] [id number] [address] [place] [address] Sep, [facility] [address] [id number] [address] [place] [address] Sep, [facility] [address] [id number] [address] [place] [address] Aug, [facility] [address] [id number] [address] [place] [address] Aug, [facility] [address] [id number] [address] [place] [address] Aug, [facility] [address] [id number] [address] [place] [address] Aug, [facility] [address] [id number] [address] [place] [address] Jul, [facility] [address] [id number] [address] [place] [address] Jul, [facility] [address] [id number] [address] [place] [address] Jul, [facility] [address] [id number] [address] [place] [address] 15 Jul, 2014 [facility] [address] [id number] [address] [place] [address], [place] [address] 15 Jul, 2014 [facility] [address] [id number] [address] [place] [address], [place] [address] 15 Jul, 2014 [facility] [address] [id number] [address] [place] [address], [place] [address] 15 Jul, 2014 [facility] [address] [id number] [address] [place] [address], [place] [address] 12 Jul, 2014 [facility] [address] [id number] [address] [place] [address], [place] [address] 12 Jul, 2014 [facility] [address] [id number] [address] [place] [address], [place] [address] Jun, [facility] [address] [id number] [address] [place] [address], [place] [address] Jun, [facility] [address] [id number] [address] [place] [address], [place] [address] Jun, [facility] [address] [id number] [address] [place] [address], [place] [address] Jun, [facility] [address] [id number] [address] [place] [address], [place] [address] Jun, [facility] [address] [id number] [address] [place] [address], [place] [address] Jun, [facility] [address] [id number] [address] [place] [address] Jun, [facility] [address] [id number] [address] [place] [address], [place] [address] Jun, [facility] [address] [id number] [address] [place] [address], [place] [address] May, [facility] [address] [id number] [address] [place] [address], [place] [address] May, [facility] [address] [id number] [address] [place] [address], [place] [address] 16 May, 2014 [facility] [address] [id number] [address] [place] [address], [place] [address] May, [facility] [address] [id number] [address] [place] [address], [place] [address] May, [facility] [address] [id number] [address] [place] [address], [place] [address] Apr, 2013 [facility] [address] [id number] [address] [place] [address], [place] [address] Apr, 2013 [facility] [address] [id number] [address] [place] [address], [place] [address] Apr, [facility] [address] [id number] [address] [place] [address], [place] [address] Apr, 2013 [facility] [address] [id number] [address] [place] [address], [place] [address] Apr, 2013 [facility] [address] [id number] [address] [place] [address], [place] [address] Apr, [facility] [address] [id number] [address] [place] [address], [place] [address] Apr, [facility] [address] [id number] [address] [place] [address], [place] [address] Apr, [facility] [address] [id number] [address] [place] [address], [place] [address] Apr, [facility] [address] [id number] [address] [place] [address], [place] [address] Apr, [facility] [address] [id number] [address] [place] [address], [place] [address] Mar, [facility] [address] [id number] [address] [place] [address], [place] [address] Mar, [facility] [address] [id number] [address] [place] [address], [place] [address] Mar, [facility] [address] [id number] [facility] [place] [address] Mar, [facility] [address] [id number] [address] [place] [address], [place] [address] Mar, [facility] [address] [id number] [address] [place] [address], [place] [address] Mar, [facility] [address] [id number] [address] [place] [address], [place] [address] Feb, [facility] [address] [id number] [address] [place] [address], [place] [address] Feb, [facility] [address] [id number] [address] [place] [address], [place] [address] Jan, [facility] [address] [id number] [address] [place] [address], [place] [address] Jan, [facility] [address] [id number] [address] [place] [address], [place] [address] Jan, [facility] [address] [id number] [address] [place] [address], [place] [address] Jan, [facility] [address] [id number] [address] [place] [address], [place] [address] December, [facility] [address] [id number] [address] [place] [address], [place] [address] December, [facility] [address] [id number] [address] [place] [address], [place] [address] December, [facility] [address] [id number] [address] [place] [address], [place] [address] December, [facility] [address] [id number] [address] [place] [address], [place] [address] December, [facility] [address] [id number] [address] [place] [address], [place] [address] December, [facility] [address] [id number] [address] [place] [address], [place] [address] December, [facility] [address] [id number] [address] [place] [address], [place] [address] December, [facility] [address] [id number] [address] [place] [address], [place] [address] December, [facility] [address] [id number] [address] [place] [address], [place] [address] Nov, [facility] [address] [id number] [address] [place] [address], [place] [address] Nov, [facility] [address] [id number] [address] [place] [address], [place] [address] Nov, [facility] [address] [id number] [address] [place] [address], [place] [address] Nov, [facility] [address] [id number] [address] [place] [address], [place] [address] Nov, [facility] [address] [id number] [address] [place] [address], [place] [address] Nov, [facility] [address] [id number] [address] [place] [address], [place] [address] Nov, [facility] [address] [id number] [address] [place] [address], [place] [address] Nov, [facility] [address] [id number] [address] [place] [address], [place] [address] Nov, [facility] [address] [id number] [address] [place] [address], [place] [address] Nov, [facility] [address] [id number] [address] [place] [address], [place] [address] Oct, [facility] [address] [id number] [address] [place] [address], [place] [address] Oct, [facility] [address] [id number] [address] [place] [address], [place] [address] Sep, [facility] [address] [id number] [address] [place] [address], [place] [address] Sep, [facility] [address] [id number] [address] [place] [address], [place] [address] Aug, [facility] [address] [id number] [address] [place] [address], [place] [address] Aug, [facility] [address] [id number] [address] [place] [address], [place] [address] Aug, [facility] [address] [id number] [address] [place] [address], [place] [address] Aug, [facility] [address] [id number] [address] [place] [address], [place] [address] Jul, [facility] [address] [id number] [address] [place] [address], [place] [address] Jul, [facility] [address] [id number] [address] [place] [address], [place] [address] Jul, [facility] [address] [id number] [address] [place] [address], [place] [address] Jul, [facility] [address] [id number] [address] [place] [address], [place] [address] Jun, [facility] [address] [id number] [address] [place] [address], [place] [address] Jun, [facility] [address] [id number] [address] [place] [address], [place] [address] May, [facility] [address] [id number] [address] [place] [address], [place] [address] May, [facility] [address] [id number] [address] [place] [address], [place] [address] May, [facility] [address] [id number] [address] [place] [address], [place] [address] May, [facility] [address] [id number] [address] [place] [address], [place] [address] May, [facility] [address] [id number] [address] [place] [address], [place] [address] May, [facility] [address] [id number] [address] [place] [address], [place] [address] 30 Apr, 2013 [facility] [address] [id number] [address] [place] [address], [place] [address] Apr, [facility] [address] [id number] [address] [place] [address], [place] [address] Apr, [facility] [address] [id number] [address] [place] [address], [place] [address] Feb, [facility] [address] [id number] [address] [place] [address], [place] [address] Jan, [facility] [address] [id number] [address] [place] [address], [place] [address] Jan, [facility] [address] [id number] [address] [place] [address], [place] [address] Jan, [facility] [address] [id number] [address] [place] [address], [place] [address] Jan, [facility] [address] [id number] [address] [place] [address], [place] [address] December, [facility] [address] [id number] [address] [place] [address], [place] [address] December, [facility] [address] [id number] [address] [place] [address], [place] [address] 24 Nov, 2012 [facility] [address] [id number] [address] [place] [address], [place] [address] Nov, [facility] [address] [id number] [address] [place] [address], [place] [address] Nov, [facility] [address] [id number] [address] [place] [address], [place] [address] Nov, [facility] [address] [id number] [address] [place] [address], [place] [address] 08 Nov, 2012 [facility] [address] [id number] [address] [place] [address], [place] [address] 08 Nov, 2012 [facility] [address] [id number] [address] [place] [address], [place] [address] 03 Nov, 2012 [facility] [address] [id number] [address] [place] [address], [place] [address] 27 Oct, 2012 [facility] [address] [id number] [address] [place] [address], [place] [address] 18 Oct, 2012 [facility] [address] [id number] [address] [place] [address], [place] [address] 14 Oct, 2012 [facility] [address] [id number] [address] [place] [address], [place] [address] 13 Oct, 2012 [facility] [address] [id number] [address] [place] [address], [place] [address] 12 Oct, 2012 [facility] [address] [id number] [address] [place] [address], [place] [address] 11 Oct, 2012 [facility] [address] [id number] [address] [place] [address], [place] [address] 08 Oct, 2012 [facility] [address] [id number] [address] [place] [address], [place] [address] 20 Sep, 2012 [facility] [address] [id number] [address] [place] [address], [place] [address] Sep, [facility] [address] [id number] [address] [place] [address], [place] [address] Aug, [facility] [address] [id number] [address] [place] [address], [place] [address] Aug, [facility] [address] [id number] [address] [place] [address], [place] [address] Jul, [facility] [address] [id number] [address] [place] [address], [place] [address] Jul, [facility] [address] [id number] [address] [place] [address] Jul, [facility] [address] [id number] [address] [place] [address] Jul, [facility] [address] [id number] [address] [place] [address] Jul, [facility] [address] [id number] [address] [place] [address] Jul, [facility] [address] [id number] [address] [place] [address] Jul, [facility] [address] [id number] [address] [place] [address] Jul, [facility] [address] [facility] [id number] [address] [place] [address] Jun, [facility] [address] [facility] [id number] [address] [place] [address] Jun, IMMUNIZATIONS No Known Immunizations SOCIAL HISTORY Never Assessed REASON FOR VISIT PLAN OF CARE VITAL SIGNS Height 62 in 2014-10-13 Weight 252.7 lbs 2014-10-13 Temperature 97.6 degrees Fahrenheit 2014-10-13 Heart Rate 88 bpm 2014-10-13 Respiratory Rate 20 2014-10-13 Blood pressure systolic 115 mmHg 2014-10-13 Blood pressure diastolic 78 mmHg 2014-10-13 MEDICATIONS Unknown Medications RESULTS No Results PROCEDURES [...] -- total 11/2012 Hospitalization History ER- in [place] due to left knee 8
--- OUTSIDE RECORDS SUMMARY | 2020-02-11 03:19 | XMS REPORT ---
Author Author Madeline MANCUSO Organization [facility] Address [address] [place] [address] Care Team Providers Care Director Of Individual Giving Name Role Phone JASON MANCUSO Unavailable PROBLEMS Type Condition ICD9-CM Code [id number] Code Onset Dates Condition S tatus SNOMED Code Problem Pre-diabetes R73.09 Active 9019882 02 Problem Chronic pain G89.29 Active 1298537 1 Problem GERD (gastroesophageal reflux disease) K21.9 Active 751965795 Problem Essential hypertension I10 Active 21322021 Problem Primary insomnia F51.01 Active 397 2004 Problem Numbness and tingling in hands R20.2 Active 282194629 Problem History of abnormal cervical Pap smear Z87.898 Active 264727323 Problem Stasis dermatitis of both legs I87.2 Active 70065389 Problem BMI 45.0-49.9, adult Z68.42 Active 809199863 ALLERGIES No Information ENCOUNTERS Encounter Location Date Diagnosis [facility] [address] [place] [address] Mar, [facility] [address] [place] [id number] [address] [place] [address] Feb, [facility] [address] [id number] [address] [place] [address] Feb, Chronic pain G89.29 and BMI 45.0-49.9, adult Z68.42 [facility] [address] [id number] [address] [place] [address] Jan, [facility] [id number] [place] [address] Jan, Chronic pain G89.29 and BMI 45.0-49.9, adult Z68.42 [facility] [address] [address] [id number] [address] [place] [address] Jan, [facility] [address] [facility] [id number] [address] [place] [address] December, Chronic pain G89.29 and BMI 45.0-49.9, adult Z68.42 [place] [address] [facility] [id number] [address] [place] [address] Nov, Morbid obesity E66.01 and Ce llulitis of leg, left L03.116 [facility] [address] [place] [id number] [place] [address] 15 Nov, 2018 Cellulitis of left lower ext remity L03.116 and Morbid obesity E66.01 [facility] WALK IN [facility] [address] [facility] [id number] [address] [place] [address] Nov, [facility] [address] [address] [id number] [place] [address] Nov, Morbid obesity E66.01 and Ce llulitis of left lower extremity L03.116 [place] [address] [place] [id number] [address] [place] [address] Nov, Chronic pain G89.29 and BMI 45.0-49.9, adult Z68.42 [place] [address] [place] [id number] [place] [address] Oct, BMI 45.0-49.9, adult Z68.42 and Chronic pain G89.29 [place] [address] [place] [id number] [address] [place] [address] 14 Sep, 2018 BMI 45.0-49.9, adult Z68.42 and Chronic pain G89.29 [place] [address] [place] [id number] [place] [address] 05 Sep, 2018 BMI 45.0-49.9, adult Z68.42 and Essential hypertension I10 [place] [address] [place] [id number] [address] [place] [address] Aug, BMI 45.0-49.9, adult Z68.42 ; Chronic pain G89.29 ; Essential hypertension I10 and Primary insomnia F51.01 [facility] [address] [facility] [id number] [address] [place] [address] Aug, Chronic pain G89.29 [facility] [address] [facility] [id number] [address] [place] [address] Jul, Chronic pain G89.29 [facility] [address] [facility] [id number] [address] [place] [address] Jun, Chronic pain G89.29 [facility] [address] [facility] [id number] [address] [place] [address] May, Chronic pain G89.29 [facility] [address] [facility] [id number] [address] [place] [address] May, BMI 40.0-44.9, adult Z68.41 ; Other chronic pain G89.29 ; Pain in right hip M25.551 and Acute pain of left knee M25.562 [facility] [address] [facility] [id number] [address] [place] [address] May, Chronic pain G89.29 [facility] [address] [facility] [id number] [address] [place] [address] Apr, Chronic pain G89.29 [facility] [address] [facility] [id number] [address] [place] [address] Mar, Poison josep L23.7 [facility] [address] [facility] [id number] [address] [place] [address] Mar, Chronic pain G89.29 [facility] [address] [facility] [id number] [address] [place] [address] Feb, Chronic pain G89.29 [facility] [address] [facility] [id number] [address] [place] [address] Feb, Poison josep L23.7 [facility] [address] [facility] [id number] [address] [place] [address] Jan, Chronic pain G89.29 [place] [address] [place] [id number] [address] [place] [address] December, Chronic pain G89.29 [place] [address] [place] [id number] [address] [place] [address] Nov, Long-term use of high-risk m edication Z79.899 [place] [address] [facility] [id number] [place] [address] Nov, Chronic pain G89.29 [place] [address] [place] [id number] [place] [address] Oct, Chronic pain G89.29 ; Pre-di abetes R73.09 ; Long-term use of high- risk medication Z79.899 ; Allergic rhinitis, unspecified seasonality, unspecified trigger J30.9 ; BMI 45.0-49.9, adult Z68.42 and Essential hypertension I10 [place] [address] [place] [id number] [place] [address] Oct, Chronic pain G89.29 [place] [address] [place] [id number] [place] [address] Sep, Chronic pain G89.29 [place] [address] [place] [id number] [place] [address] Aug, Chronic pain G89.29 [place] [address] [place] [id number] [address] [place] [address] Jul, [place] [address] [place] [id number] [place] [address] Jul, [place] [address] [place] [id number] [address] [place] [address] Jun, Chronic pain G89.29 ; BMI 45 .0-49.9, adult Z68.42 ; Pre-diabetes R73.09 ; Essential hypertension I10 ; GERD (gastroesophageal reflux disease) K21.9 ; Yeast dermatitis B37.2 ; Dysuria R30.0 ; Acute non-recurrent maxillary sinusitis J01.00 and Acute cystitis with hematuria N30.01 [place] [address] [place] [id number] [place] [address] 13 Jun, 2017 Chronic pain G89.29 [place] [address] [place] [id number] [place] [address] Jun, Acute non-recurrent maxillar y sinusitis J01.00 and BMI 45.0-49.9, adult Z68.42 [place] [address] [place] [id number] [place] [address] May, [place] [address] [place] [id number] [place] [address] May, Chronic pain G89.29 [place] [address] [address] May, [place] [address] [place] [id number] [place] [address] Apr, Chronic pain G89.29 [place] [address] [address] Mar, [place] [address] [place] [id number] [place] [address] Mar, Essential hypertension I10 a nd Pre-diabetes R73.09 [place] [address] [place] [id number] [place] [address] Mar, Chronic pain G89.29 ; Essent ial hypertension I10 ; Depressive disorder, not elsewhere classified F32.9 ; GERD (gastroesophageal reflux disease) K21.9 ; Pre-diabetes R73.09 ; Stasis dermatitis of both legs I87.2 and Acute non-recurrent maxillary sinusitis J01.00 [place] [address] [place] [id number] [place] [address] Mar, Chronic pain G89.29 [place] [address] [place] [address] Mar, Achilles tendinitis of right lower extremity M76.61 and Tinea corporis B35.4 [place] [address] [place] [id number] [address] [place] [address] Feb, Yeast dermatitis B37.2 [place] [address] [place] [id number] [place] [address] Feb, Candidal intertrigo B37.2 an d Acute right ankle pain M25.571 [place] [address] [place] [id number] [place] [address] Feb, Chronic pain G89.29 [place] [address] [address] Jan, [place] [address] [address] Jan, Chronic pain G89.29 [place] [address] [address] December, Chronic pain G89.29 ; Essent ial hypertension I10 ; Depressive disorder, not elsewhere classified F32.9 ; GERD (gastroesophageal reflux disease) K21.9 ; Pre-diabetes R73.09 ; Screening breast examination Z12.39 ; Stasis dermatitis of both legs I87.2 and Yeast dermatitis B37.2 [place] [address] [place] [address] Nov, Chronic pain G89.29 [place] [address] [place] [id number] [address] [place] [address] Nov, Cellulitis of left lower ext remity L03.116 [place] [address] [place] [id number] [place] [address] Nov, Cellulitis of left lower ext remity L03.116 [place] [address] [place] [id number] [place] [address] Oct, Yeast dermatitis B37.2 [facility] [address] [facility] [id number] [address] [place] [address] Oct, Chronic pain G89.29 [place] [address] [facility] [id number] [address] [place] [address] Sep, Chronic pain G89.29 ; Essent ial hypertension I10 ; Depressive disorder, not elsewhere classified F32.9 and GERD (gastroesophageal reflux disease) K21.9 [place] [address] [place] [id number] [place] [address] Aug, Chronic pain G89.29 [place] [address] [place] [id number] [place] [address] Aug, Cough R05 ; Rash R21 and Vinay h and nonspecific skin eruption R21 [address] [address] Jul, Chronic pain G89.29 [place] [address] [place] [id number] [place] [address] Jun, Chronic pain G89.29 ; Bronch itis J40 ; Essential hypertension I10 ; Depressive disorder, not elsewhere classified F32.9 ; GERD (gastroesophageal reflux disease) K21.9 and History of long-term use of multiple prescription drugs Z92.29 [place] [address] [place] [id number] [place] [address] Jun, Bronchitis J40 ; Chills R68. 83 and Sore throat J02.9 [facility] [address] [facility] [id number] [address] [place] [address] May, [place] [address] [place] [id number] [address] [place] [address] 29 Apr, 2016 [facility] [address] [facility] [id number] [address] [place] [address] 19 Apr, 2016 Acute mucoid otitis media of both ears H65.113 [place] [address] [address] Apr, Yeast dermatitis B37.2 and H ematuria R31.9 [place] [address] [address] Mar, [place] [address] [place] [id number] [place] [address] Mar, [place] [address] [address] Feb, Left anterior knee pain M25. 562 [place] [address] [address] Feb, Chronic pain G89.29 ; Essent ial hypertension I10 ; Depressive disorder, not elsewhere classified F32.9 ; GERD (gastroesophageal reflux disease) K21.9 and History of long-term use of multiple prescription drugs Z92.29 [place] [address] [address] Jan, [place] [address] [address] Jan, Well woman exam Z01.419 ; BM I 45.0-49.9, adult Z68.42 ; Family history of diabetes mellitus Z83.3 and Chronic pain G89.29 [place] [address] [address] December, Chronic pain G89.29 ; Essent ial hypertension I10 ; Depressive disorder, not elsewhere classified F32.9 ; GERD (gastroesophageal reflux disease) K21.9 ; 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 ; History of long-term use of multiple prescription drugs Z92.29 and Obesity E66.9 [place] [address] [place] [id number] [place] [address] Oct, [place] [address] [address] Oct, Well woman exam Z01.419 ; BM [...] smear Z12.4 and No natural teeth K00.0 [place] [address] [place] [id number] [place] [address] Oct, [place] [address] [address] Sep, Chronic pain G89.29 ; Essent ial hypertension I10 ; GERD (gastroesophageal reflux disease) K21.9 ; 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 ; Skin infection L08.9 and History of long-term use of multiple prescription drugs Z92.29 [place] [address] [place] [address] Aug, [place] [address] [place] [id number] [address] [place] [address] Jul, [place] [address] [address] Jul, [place] [address] [address] Jul, Upper respiratory infection J06.9 [place] [address] [place] [id number] [address] [place] [address] Jul, Depressive disorder, not els ewhere classified F32.9 [place] [id number] [address] [place] [address] Jul, Chronic pain 338.29 [place] [address] [place] [id number] [place] [address] Jul, Chronic pain G89.29 [place] [address] [place] [id number] [place] [address] 16 Jun, 2015 Poison josep L23.7 [place] [address] [address] Jun, Allergic contact dermatitis due to plants, except food L23.7 [place] [address] [address] 03 Jun, 2015 Essential hypertension I10 ; Chronic pain G89.29 ; GERD (gastroesophageal reflux disease) K21.9 and Numbness and tingling in hands R20.2 [place] [address] [address] May, [place] [address] [address] Apr, [place] [address] [address] Mar, [place] [address] [address] Feb, Abdominal pain, left lateral 789.09 and Constipation 564.[address] [address] Feb, Depressive disorder, not els ewhere classified 311 and No condition on [place] V71.[address] [address] Feb, Spider bite 989.5 and Depres homar 311 [place] [address] [address] Feb, [address] [address] Feb, Chronic pain 338.29 ; Arthro zonia 716.90 and GERD (gastroesophageal reflux disease) 530.81 [place] [address] [address] Jan, Insect bites 919.4 [place] [address] [id number] [address] [place] [address] Jan, [facility] [address] [id number] [address] [place] [address] December, Skin infection, bacterial 68 6.9 ; Conjunctivitis 372.30 and Insect bites 919.4 [facility] [address] [id number] [address] [place] [address] December, Chronic pain 338.29 ; Arthro zonia 716.90 ; Skin infection, bacterial 686.9 and Conjunctivitis 372.30 [facility] [address] [id number] [address] [place] [address] December, [facility] [address] [id number] [address] [place] [address] Nov, [facility] [address] [id number] [address] [place] [address] Nov, [facility] [address] [id number] [address] [place] [address] Oct, [facility] [address] [id number] [address] [place] [address] Oct, [facility] [address] [id number] [address] [place] [address] Sep, [facility] [address] [id number] [address] [place] [address] Sep, [facility] [address] [id number] [address] [place] [address] Aug, [facility] [address] [id number] [address] [place] [address] Aug, [facility] [address] [id number] [address] [place] [address] Aug, [facility] [address] [id number] [address] [place] [address] Aug, [facility] [address] [id number] [facility] [place] [address] 30 Jul, 2014 [facility] [address] [id number] [facility] [place] [address] Jul, [facility] [address] [id number] [address] [place] [address], [place] [address] Jul, [facility] [address] [id number] [address] [place] [address], [place] [address] Jul, [facility] [address] [id number] [address] [place] [address], [place] [address] Jul, [facility] [address] [id number] [address] [place] [address], [place] [address] Jul, [facility] [address] [id number] [address] [place] [address], [place] [address] Jul, [facility] [address] [id number] [address] [place] [address], [place] [address] Jul, [facility] [address] [id number] [address] [place] [address], [place] [address] Jul, [facility] [address] [id number] [address] [place] [address], [place] [address] Jun, [facility] [address] [id number] [address] [place] [address], [place] [address] Jun, [facility] [address] [id number] [address] [place] [address], [place] [address] Jun, [facility] [address] [id number] [address] [place] [address], [place] [address] Jun, [facility] [address] [id number] [address] [place] [address], [place] [address] Jun, [facility] [address] [id number] [address] [place] [address], [place] [address] Jun, [facility] [address] [id number] [address] [place] [address], [place] [address] Jun, [facility] [address] [id number] [address] [place] [address], [place] [address] Jun, [facility] [address] [id number] [address] [place] [address], [place] [address] May, [facility] [address] [id number] [address] [place] [address], [place] [address] May, [facility] [address] [id number] [address] [place] [address], [place] [address] 16 May, 2014 [facility] [address] [id number] [address] [place] [address], [place] [address] May, [facility] [address] [id number] [address] [place] [address], [place] [address] May, [facility] [address] [id number] [address] [place] [address], [place] [address] Apr, [facility] [address] [id number] [address] [place] [address], [place] [address] 26 Apr, 2013 [facility] [address] [id number] [address] [place] [address], [place] [address] 25 Apr, 2014 [facility] [address] [id number] [address] [place] [address], [place] [address] 25 Apr, 2013 [facility] [address] [id number] [address] [place] [address], [place] [address] 18 Apr, 2013 [facility] [address] [id number] [address] [place] [address] 18 Apr, 2013 [facility] [address] [id number] [address] [place] [address], [place] [address] 18 Apr, 2013 [facility] [address] [id number] [address] [place] [address], [place] [address] 18 Apr, 2013 [facility] [address] [id number] [address] [place] [address], [place] [address] 04 Apr, 2013 [facility] [address] [id number] [address] [place] [address], [place] [address] Apr, [facility] [address] [id number] [address] [place] [address], [place] [address] Mar, [facility] [address] [id number] [address] [place] [address], [place] [address] Mar, [facility] [address] [id number] [address] [place] [address], [place] [address] Mar, [facility] [address] [id number] [address] [place] [address], [place] [address] Mar, [facility] [address] [id number] [address] [place] [address], [place] [address] Mar, [facility] [address] [id number] [address] [place] [address], [place] [address] Mar, [facility] [address] [id number] [address] [place] [address], [place] [address] Feb, [facility] [address] [id number] [address] [place] [address], [place] [address] Feb, [facility] [address] [id number] [address] [place] [address], [place] [address] Jan, [facility] [address] [id number] [address] [place] [address], [place] [address] Jan, [facility] [address] [id number] [address] [place] [address], [place] [address] Jan, [facility] [address] [id number] [address] [place] [address], [place] [address] Jan, [facility] [address] [id number] [address] [place] [address], [place] [address] December, [facility] [address] [id number] [address] [place] [address], [place] [address] December, [facility] [address] [id number] [address] [place] [address], [place] [address] December, [facility] [address] [id number] [address] [place] [address], [place] [address] December, [facility] [address] [id number] [address] [place] [address], [place] [address] December, [facility] [address] [id number] [address] [place] [address], [place] [address] December, [facility] [address] [id number] [address] [place] [address], [place] [address] December, [facility] [address] [id number] [address] [place] [address], [place] [address] December, [facility] [address] [id number] [address] [place] [address], [place] [address] December, [facility] [address] [id number] [address] [place] [address], [place] [address] Nov, [facility] [address] [id number] [address] [place] [address], [place] [address] Nov, [facility] [address] [id number] [address] [place] [address], [place] [address] Nov, [facility] [address] [id number] [address] [place] [address], [place] [address] Nov, [facility] [address] [id number] [address] [place] [address], [place] [address] Nov, [facility] [address] [id number] [address] [place] [address], [place] [address] Nov, [facility] [address] [id number] [address] [place] [address], [place] [address] Nov, [facility] [address] [id number] [address] [place] [address], [place] [address] Nov, [facility] [address] [id number] [address] [place] [address], [place] [address] Nov, [facility] [address] [id number] [address] [place] [address], [place] [address] Nov, [facility] [address] [id number] [address] [place] [address], [place] [address] Oct, [facility] [address] [id number] [address] [place] [address], [place] [address] Oct, [facility] [address] [id number] [address] [place] [address], [place] [address] Sep, [facility] [address] [id number] [address] [place] [address], [place] [address] Sep, [facility] [address] [id number] [address] [place] [address], [place] [address] Aug, [facility] [address] [id number] [address] [place] [address], [place] [address] Aug, [facility] [address] [id number] [address] [place] [address], [place] [address] Aug, [facility] [address] [id number] [address] [place] [address], [place] [address] Aug, [facility] [address] [id number] [address] [place] [address], [place] [address] Jul, [facility] [address] [id number] [address] [place] [address], [place] [address] Jul, [facility] [address] [id number] [address] [place] [address], [place] [address] Jul, [facility] [address] [id number] [address] [place] [address], [place] [address] Jul, [facility] [address] [id number] [address] [place] [address], [place] [address] Jun, [facility] [address] [id number] [address] [place] [address], [place] [address] Jun, [facility] [address] [id number] [address] [place] [address], [place] [address] May, [facility] [address] [id number] [address] [place] [address], [place] [address] 29 May, 2013 [facility] [address] [id number] [address] [place] [address], [place] [address] May, [facility] [address] [id number] [address] [place] [address], [place] [address] May, [facility] [address] [id number] [address] [place] [address], [place] [address] May, [facility] [address] [id number] [address] [place] [address], [place] [address] May, [facility] [address] [id number] [address] [place] [address], [place] [address] 30 Apr, 2013 [facility] [address] [id number] [address] [place] [address], [place] [address] Apr, [facility] [address] [id number] [address] [place] [address], [place] [address] Apr, [facility] [address] [id number] [address] [place] [address], [place] [address] Feb, [facility] [address] [id number] [address] [place] [address], [place] [address] Jan, [facility] [address] [id number] [address] [place] [address], [place] [address] Jan, [facility] [address] [id number] [address] [place] [address], [place] [address] Jan, [facility] [address] [id number] [address] [place] [address], [place] [address] Jan, [facility] [address] [id number] [address] [place] [address], [place] [address] December, [facility] [address] [id number] [address] [place] [address], [place] [address] December, [facility] [address] [id number] [address] [place] [address], [place] [address] Nov, [facility] [address] [id number] [facility] [place] [address] Nov, [facility] [address] [id number] [address] [place] [address], [place] [address] Nov, [facility] [address] [id number] [address] [place] [address], [place] [address] Nov, [facility] [address] [id number] [address] [place] [address], [place] [address] Nov, [facility] [address] [id number] [address] [place] [address], [place] [address] Nov, [facility] [address] [id number] [address] [place] [address], [place] [address] Nov, [facility] [address] [id number] [address] [place] [address], [place] [address] 27 Oct, 2012 [facility] [address] [id number] [address] [place] [address], [place] [address] 18 Oct, 2012 [facility] [address] [id number] [address] [place] [address], [place] [address] 14 Oct, 2012 [facility] [address] [id number] [address] [place] [address], [place] [address] 13 Oct, 2012 [facility] [address] [id number] [address] [place] [address], [place] [address] 12 Oct, 2012 [facility] [address] [id number] [address] [place] [address], [place] [address] 11 Oct, 2012 [facility] [address] [id number] [address] [place] [address], [place] [address] 08 Oct, 2012 [facility] [address] [id number] [address] [place] [address], [place] [address] 20 Sep, 2012 [facility] [address] [id number] [address] [place] [address], [place] [address] Sep, [facility] [address] [id number] [address] [place] [address] Aug, [facility] [address] [id number] [address] [place] [address] Aug, [facility] [address] [id number] [address] [place] [address] Jul, [facility] [address] [id number] [address] [place] [address] Jul, [facility] [address] [id number] [address] [place] [address] Jul, [facility] [address] [id number] [address] [place] [address] Jul, [facility] [address] [id number] [address] [place] [address] Jul, [facility] [address] [id number] [address] [place] [address] Jul, [facility] [address] [id number] [address] [place] [address] Jul, [facility] [address] [id number] [address] [place] [address] Jul, [facility] [address] [id number] [address] [place] [address] Jun, [facility] [address] [id number] [address] [place] [address] Jun, IMMUNIZATIONS No Known Immunizations SOCIAL HISTORY Never Assessed REASON FOR VISIT Controlled med 10/23 PLAN OF CARE VITAL SIGNS MEDICATIONS Medication Instructions Dosage Frequency Start Date End Date Duration S tatus Hydrocodone-Acetaminophen 5-325 MG Orally 3 times a day prn must last 4 weeks 1 Tablet Oct, 28 days Active Hydrochlorothiazide 25 MG Orally Once a day 1 tablet 24h Active Ambien 5 mg Orally Once a day 1 tablet at bedtime 24h Aug, Active RESULTS No Results PROCEDURES No Known procedures [...] -- total 11/2012 Hospitalization History ER- in [place] due to left knee 8
--- OUTSIDE RECORDS SUMMARY | 2020-02-11 03:20 | XMS REPORT ---
Author Author Madeline Magdaleno Doctor Organization [facility] Address Unknown Phone Unavailable Care Team Providers [facility] Registrar Name Role Phone Migration, Doctor Unavailable Unavailable PROBLEMS Type Condition ICD9-CM Code PCV20-HW Code Onset Dates Condition S tatus SNOMED Code Problem Pre-diabetes R73.09 Active 1439271 02 Problem Chronic pain G89.29 Active 8631392 1 Problem GERD (gastroesophageal reflux disease) K21.9 Active 221269315 Problem Essential hypertension I10 Active 00379925 Problem Primary insomnia F51.01 Active 397 2004 Problem Numbness and tingling in hands R20.2 Active 740872134 Problem History of abnormal cervical Pap smear Z87.898 Active 120709169 Problem Stasis dermatitis of both legs I87.2 Active 70221958 Problem BMI 45.0-49.9, adult Z68.42 Active 858061510 ALLERGIES No Information ENCOUNTERS Encounter Location Date Diagnosis [facility] [place] [address] [address] 24 Nov, 2018 Morbid obesity E66.01 and Ce llulitis of leg, left L03.116 [facility] [place] [address] [address] 15 Nov, 2018 Cellulitis of left lower ext remity L03.116 and Morbid obesity E66.01 [facility] [address] [place] [id number] [place] [address] 13 Nov, 2018 [facility] [place] [address] [address] 12 Nov, 2018 Morbid obesity E66.01 and Ce llulitis of left lower extremity L03.116 [facility] [place] [address] [place] [id number] [address] [place] [address] Nov, Chronic pain G89.29 and BMI 45.0-49.9, adult Z68.42 [place] [address] [facility] [place] [id number] [address] [place] [address] 18 Oct, 2018 BMI 45.0-49.9, adult Z68.42 and Chronic pain G89.29 [place] [address] [facility] [place] [id number] [address] [place] [address] 14 Sep, 2018 BMI 45.0-49.9, adult Z68.42 and Chronic pain G89.29 [place] [address] [facility] [place] [id number] [address] [place] [address] 05 Sep, 2018 BMI 45.0-49.9, adult Z68.42 and Essential hypertension I10 [place] [address] [place] [id number] [place] [address] Aug, BMI 45.0-49.9, adult Z68.42 ; Chronic pain G89.29 ; Essential hypertension I10 and Primary insomnia F51.01 [place] [address] [facility] [place] [id number] [address] [place] [address] Aug, Chronic pain G89.29 [place] [address] [place] [id number] [place] [address] Jul, Chronic pain G89.29 [place] [address] [place] [id number] [place] [address] Jun, Chronic pain G89.29 [place] [address] [place] [id number] [place] [address] May, Chronic pain G89.29 [place] [address] [facility] [place] [id number] [address] [place] [address] May, BMI 40.0-44.9, adult Z68.41 ; Other chronic pain G89.29 ; Pain in right hip M25.551 and Acute pain of left knee M25.562 [place] [address] [facility] [place] [id number] [address] [place] [address] May, Chronic pain G89.29 [place] [address] [place] [id number] [place] [address] Apr, Chronic pain G89.29 [facility] [place] [address] [facility] [place] [id number] [address] [place] [address] Mar, Poison josep L23.7 [facility] [place] [address] [id number] [address] [place] [address] Mar, Chronic pain G89.29 [facility] [place] [address] [facility] [place] [id number] [address] [place] [address] Feb, Chronic pain G89.29 [facility] [place] [address] [facility] [place] [id number] [address] [place] [address] Feb, Poison josep L23.7 [facility] [place] [address] [facility] [place] [id number] [address] [place] [address] Jan, Chronic pain G89.29 [facility] [place] [address] [facility] [place] [id number] [address] [place] [address] December, Chronic pain G89.29 [facility] [place] [address] [facility] [place] [id number] [address] [place] [address] Nov, Long-term use of high-risk m edication Z79.899 [facility] [place] [address] [facility] [place] [id number] [address] [place] [address] Nov, Chronic pain G89.29 [facility] [place] [address] [facility] [place] [id number] [address] [place] [address] Oct, Chronic pain G89.29 ; Pre-di abetes R73.09 ; Long-term use of high- risk medication Z79.899 ; Allergic rhinitis, unspecified seasonality, unspecified trigger J30.9 ; BMI 45.0-49.9, adult Z68.42 and Essential hypertension I10 [facility] [place] [address] [facility] [place] [id number] [address] [place] [address] Oct, Chronic pain G89.29 [facility] [place] [address] [facility] [place] [id number] [address] [place] [address] Sep, Chronic pain G89.29 [facility] [place] [address] [facility] [place] [id number] [address] [place] [address] Aug, Chronic pain G89.29 [facility] [place] [address] [facility] [place] [id number] [address] [place] [address] Jul, [facility] [place] [address] [place] [id number] [place] [address] Jul, [facility] [place] [address] [place] [id number] [place] [address] Jun, Chronic pain G89.29 ; BMI 45 .0-49.9, adult Z68.42 ; Pre-diabetes R73.09 ; Essential hypertension I10 ; GERD (gastroesophageal reflux disease) K21.9 ; Yeast dermatitis B37.2 ; Dysuria R30.0 ; Acute non-recurrent maxillary sinusitis J01.00 and Acute cystitis with hematuria N30.01 [place] [address] [place] [id number] [place] [address] Jun, Chronic pain G89.29 [facility] [place] [address] [place] [id number] [place] [address] Jun, Acute non-recurrent maxillar y sinusitis J01.00 and BMI 45.0-49.9, adult Z68.42 [place] [address] [place] [id number] [place] [address] May, [place] [address] [place] [id number] [place] [address] May, Chronic pain G89.29 [facility] [place] [address] [facility] [place] [id number] [address] [place] [address] May, [place] [address] [place] [id number] [place] [address] Apr, Chronic pain G89.29 [place] [address] [place] [id number] [place] [address] Mar, [place] [address] [facility] [place] [facility] [id number] [address] [place] [address] Mar, Essential hypertension I10 a nd Pre-diabetes R73.09 [place] [address] [facility] [place] [id number] [address] [place] [address] 15 Mar, 2017 Chronic pain G89.29 ; Essent ial hypertension I10 ; Depressive disorder, not elsewhere classified F32.9 ; GERD (gastroesophageal reflux disease) K21.9 ; Pre-diabetes R73.09 ; Stasis dermatitis of both legs I87.2 and Acute non-recurrent maxillary sinusitis J01.00 [place] [address] [facility] [place] [id number] [address] [place] [address] Mar, Chronic pain G89.29 [place] [address] [place] [id number] [place] [address] 07 Mar, 2017 Achilles tendinitis of right lower extremity M76.61 and Tinea corporis B35.4 [place] [address] [place] [id number] [place] [address] 17 Feb, 2017 Yeast dermatitis B37.2 [place] [address] [place] [id number] [place] [address] 14 Feb, 2017 Candidal intertrigo B37.2 an d Acute right ankle pain M25.571 [place] [address] [place] [id number] [place] [address] Feb, Chronic pain G89.29 [place] [address] [place] [id number] [place] [address] 16 Jan, 2017 [place] [address] [place] [id number] [place] [address] Jan, Chronic pain G89.29 [place] [address] [place] [id number] [place] [address] December, Chronic pain G89.29 ; Essent ial hypertension I10 ; Depressive disorder, not elsewhere classified F32.9 ; GERD (gastroesophageal reflux disease) K21.9 ; Pre-diabetes R73.09 ; Screening breast examination Z12.39 ; Stasis dermatitis of both legs I87.2 and Yeast dermatitis B37.2 [place] [address] [place] [address] Nov, Chronic pain G89.29 [place] [address] [place] [address] Nov, Cellulitis of left lower ext remity L03.116 [place] [address] [place] [id number] [place] [address] Nov, Cellulitis of left lower ext remity L03.116 [place] [address] [place] [address] Oct, Yeast dermatitis B37.2 [place] [address] [place] [id number] [place] [address] Oct, Chronic pain G89.29 [place] [address] [place] [id number] [place] [address] Sep, Chronic pain G89.29 ; Essent ial hypertension I10 ; Depressive disorder, not elsewhere classified F32.9 and GERD (gastroesophageal reflux disease) K21.9 [place] [address] [place] [id number] [place] [address] Aug, Chronic pain G89.29 [place] [address] [place] [id number] [place] [address] Aug, Cough R05 ; Rash R21 and Vinay h and nonspecific skin eruption R21 [place] [address] [place] [id number] [place] [address] Jul, Chronic pain G89.29 [place] [address] [place] [id number] [place] [address] Jun, Chronic pain G89.29 ; Bronch itis J40 ; Essential hypertension I10 ; Depressive disorder, not elsewhere classified F32.9 ; GERD (gastroesophageal reflux disease) K21.9 and History of long-term use of multiple prescription drugs Z92.29 [place] [address] [address] Jun, Bronchitis J40 ; Chills R68. 83 and Sore throat J02.9 [place] [address] [address] May, [place] [address] [address] Apr, [facility] [address] [address] Apr, Acute mucoid otitis media of both ears H65.113 [place] [address] [address] Apr, Yeast dermatitis B37.2 and H ematuria R31.9 [place] [address] [address] Mar, [place] [address] [address] Mar, [place] [address] [address] Feb, Left anterior knee pain M25. 562 [place] [address] [address] Feb, Chronic pain G89.29 ; Essent ial hypertension I10 ; Depressive disorder, not elsewhere classified F32.9 ; GERD (gastroesophageal reflux disease) K21.9 and History of long-term use of multiple prescription drugs Z92.29 [place] [address] [address] Jan, [place] [address] [address] Jan, Well woman exam Z01.419 ; BM I 45.0-49.9, adult Z68.42 ; Family history of diabetes mellitus Z83.3 and Chronic pain G89.29 [place] [address] [address] December, Chronic pain G89.29 ; Essent ial hypertension I10 ; Depressive disorder, not elsewhere classified F32.9 ; GERD (gastroesophageal reflux disease) K21.9 ; 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 ; History of long-term use of multiple prescription drugs Z92.29 and Obesity E66.9 [place] [address] [address] Oct, [place] [address] [address] Oct, Well woman exam Z01.419 ; BM [...] smear Z12.4 and No natural teeth K00.0 [place] [address] [address] Oct, [place] [address] [address] Sep, Chronic pain G89.29 ; Essent ial hypertension I10 ; GERD (gastroesophageal reflux disease) K21.9 ; 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 ; Skin infection L08.9 and History of long-term use of multiple prescription drugs Z92.29 [place] [address] [address] Aug, [place] [address] [address] Jul, [place] [address] [address] Jul, [facility] [place] [address] [facility] [place] [facility] [id number] [address] [place] [address] Jul, Upper respiratory infection J06.9 [facility] [place] [address] [facility] [place] [id number] [address] [place] [address] Jul, Depressive disorder, not els ewhere classified F32.9 [facility] [place] [address] [facility] [place] [id number] [address] [place] [address] Jul, Chronic pain 338.29 [facility] [place] [address] [facility] [place] [id number] [address] [place] [address] Jul, Chronic pain G89.29 [place] [address] [facility] [place] [id number] [address] [place] [address] Jun, Poison josep L23.7 [place] [address] [facility] [place] [id number] [address] [place] [address] Jun, Allergic contact dermatitis due to plants, except food L23.7 [facility] [place] [address] [facility] [place] [id number] [address] [place] [address] Jun, Essential hypertension I10 ; Chronic pain G89.29 ; GERD (gastroesophageal reflux disease) K21.9 and Numbness and tingling in hands R20.2 [facility] [place] [address] [facility] [place] [facility] [id number] [address] [place] [address] May, [facility] [place] [address] [facility] [place] [id number] [address] [place] [address] Apr, [facility] [place] [address] [facility] [place] [id number] [address] [place] [address] Mar, [facility] [place] [address] [facility] [place] [id number] [address] [place] [address] Feb, Abdominal pain, left lateral 789.09 and Constipation 564.00 [facility] [place] [address] [facility] [place] [id number] [address] [place] [address] Feb, Depressive disorder, not els ewhere classified 311 and No condition on [place] II V71.09 [facility] [place] [address] [facility] [place] [id number] [address] [place] [address] Feb, Spider bite 989.5 and Depres homar 311 [facility] [place] [address] [facility] [place] [id number] [address] [place] [address] Feb, [facility] [place] [address] [place] [id number] [place] [address] Feb, Chronic pain 338.29 ; Arthro zonia 716.90 and GERD (gastroesophageal reflux disease) 530.81 [facility] [place] [address] [facility] [place] [id number] [address] [place] [address] Jan, Insect bites 919.4 [facility] [place] [address] [place] [id number] [place] [address] Jan, [facility] [place] [address] [place] [id number] [place] [address] December, Skin infection, bacterial 68 6.9 ; Conjunctivitis 372.30 and Insect bites 919.4 [facility] [place] [address] [place] [id number] [place] [address] December, Chronic pain 338.29 ; Arthro zonia 716.90 ; Skin infection, bacterial 686.9 and Conjunctivitis 372.30 [facility] [place] [address] [place] [id number] [place] [address] December, [facility] [place] [address] [place] [id number] [place] [address] Nov, [facility] [place] [address] [facility] [place] [id number] [address] [place] [address] Nov, [facility] [place] [address] [place] [id number] [place] [address] Oct, [facility] [place] [address] [place] [id number] [place] [address] Oct, [facility] [address] [id number] [address] [place] [address], [place] [address] Sep, [facility] [address] [id number] [address] [place] [address], [place] [address] Sep, [facility] [address] [id number] [address] [place] [address], [place] [address] Aug, [facility] [address] [id number] [address] [place] [address], [place] [address] Aug, [facility] [address] [id number] [address] [place] [address], [place] [address] Aug, [facility] [address] [id number] [address] [place] [address], [place] [address] Aug, [facility] [address] [id number] [address] [place] [address], [place] [address] Jul, [facility] [address] [id number] [address] [place] [address], [place] [address] Jul, [facility] [address] [id number] [address] [place] [address], [place] [address] Jul, [facility] [address] [id number] [address] [place] [address], [place] [address] Jul, [facility] [address] [id number] [address] [place] [address], [place] [address] Jul, [facility] [address] [id number] [address] [place] [address], [place] [address] Jul, [facility] [address] [id number] [address] [place] [address], [place] [address] Jul, [facility] [address] [id number] [address] [place] [address], [place] [address] Jul, [facility] [address] [id number] [address] [place] [address], [place] [address] Jul, [facility] [address] [id number] [address] [place] [address], [place] [address] Jun, [facility] [address] [id number] [address] [place] [address], [place] [address] Jun, [facility] [address] [id number] [address] [place] [address], [place] [address] Jun, [facility] [address] [id number] [address] [place] [address], [place] [address] Jun, [facility] [address] [id number] [address] [place] [address], [place] [address] Jun, [facility] [address] [id number] [address] [place] [address], [place] [address] Jun, [facility] [address] [id number] [address] [place] [address], [place] [address] Jun, [facility] [address] [id number] [address] [place] [address], [place] [address] Jun, [facility] [address] [id number] [address] [place] [address], [place] [address] May, [facility] [address] [id number] [address] [place] [address], [place] [address] May, [facility] [address] [id number] [address] [place] [address], [place] [address] May, [facility] [address] [id number] [address] [place] [address], [place] [address] May, [facility] [address] [id number] [address] [place] [address] May, [facility] [address] [id number] [address] [place] [address], [place] [address] Apr, [facility] [address] [id number] [address] [place] [address], [place] [address] Apr, [facility] [address] [id number] [address] [place] [address], [place] [address] Apr, [facility] [address] [id number] [address] [place] [address], [place] [address] 25 Apr, 2013 [facility] [address] [id number] [address] [place] [address], [place] [address] 18 Apr, 2013 [facility] [address] [id number] [address] [place] [address], [place] [address] 18 Apr, 2013 [facility] [address] [id number] [address] [place] [address], [place] [address] 18 Apr, 2013 [facility] [address] [id number] [address] [place] [address], [place] [address] 18 Apr, 2013 [facility] [address] [id number] [address] [place] [address], [place] [address] Apr, [facility] [address] [id number] [address] [place] [address], [place] [address] Apr, [facility] [address] [id number] [address] [place] [address], [place] [address] Mar, [facility] [address] [id number] [address] [place] [address], [place] [address] Mar, [facility] [address] [id number] [address] [place] [address], [place] [address] Mar, [facility] [address] [id number] [address] [place] [address], [place] [address] Mar, [facility] [address] [id number] [address] [place] [address], [place] [address] Mar, [facility] [address] [id number] [address] [place] [address], [place] [address] Mar, [facility] [address] [id number] [address] [place] [address], [place] [address] Feb, [facility] [address] [id number] [address] [place] [address], [place] [address] Feb, [facility] [address] [id number] [address] [place] [address], [place] [address] Jan, [facility] [address] [id number] [address] [place] [address], [place] [address] Jan, [facility] [address] [id number] [address] [place] [address], [place] [address] Jan, [facility] [address] [id number] [address] [place] [address], [place] [address] Jan, [facility] [address] [id number] [address] [place] [address], [place] [address] December, [facility] [address] [id number] [address] [place] [address], [place] [address] December, [facility] [address] [id number] [address] [place] [address], [place] [address] December, [facility] [facility] [address] [id number] [address] [place] [address], [place] [address] December, [facility] [address] [id number] [address] [place] [address], [place] [address] December, [facility] [address] [id number] [address] [place] [address], [place] [address] December, [facility] [address] [id number] [address] [place] [address], [place] [address] December, [facility] [address] [id number] [address] [place] [address], [place] [address] December, [facility] [address] [id number] [address] [place] [address], [place] [address] December, [facility] [address] [id number] [address] [place] [address], [place] [address] Nov, [facility] [address] [id number] [address] [place] [address], [place] [address] Nov, [facility] [address] [id number] [address] [place] [address], [place] [address] Nov, [facility] [address] [id number] [address] [place] [address], [place] [address] Nov, [facility] [address] [id number] [address] [place] [address], [place] [address] Nov, [facility] [address] [id number] [address] [place] [address], [place] [address] Nov, [facility] [address] [id number] [address] [place] [address], [place] [address] Nov, [facility] [address] [id number] [address] [place] [address], [place] [address] Nov, [facility] [address] [id number] [address] [place] [address], [place] [address] Nov, [facility] [address] [id number] [address] [place] [address], [place] [address] Nov, [facility] [address] [id number] [address] [place] [address], [place] [address] Oct, [facility] [address] [id number] [address] [place] [address], [place] [address] Oct, [facility] [address] [id number] [address] [place] [address], [place] [address] Sep, [facility] [address] [id number] [address] [place] [address], [place] [address] Sep, [facility] [address] [id number] [address] [place] [address], [place] [address] Aug, [facility] [address] [id number] [address] [place] [address], [place] [address] Aug, [facility] [address] [id number] [address] [place] [address], [place] [address] Aug, [facility] [address] [id number] [address] [place] [address], [place] [address] Aug, [facility] [address] [id number] [address] [place] [address], [place] [address] Jul, [facility] [address] [id number] [address] [place] [address], [place] [address] Jul, [facility] [address] [id number] [address] [place] [address], [place] [address] Jul, [facility] [address] [id number] [address] [place] [address], [place] [address] Jul, [facility] [address] [id number] [address] [place] [address], [place] [address] Jun, [facility] [address] [id number] [address] [place] [address], [place] [address] Jun, [facility] [address] [id number] [address] [place] [address], [place] [address] May, [facility] [address] [id number] [address] [place] [address], [place] [address] May, [facility] [address] [id number] [address] [place] [address], [place] [address] May, [facility] [address] [id number] [address] [place] [address], [place] [address] May, [facility] [address] [id number] [address] [place] [address], [place] [address] May, [facility] [address] [id number] [address] [place] [address], [place] [address] May, [facility] [address] [id number] [address] [place] [address], [place] [address] 30 Apr, 2013 [facility] [address] [id number] [address] [place] [address], [place] [address] 23 Apr, 2013 [facility] [address] [id number] [address] [place] [address], [place] [address] Apr, [facility] [address] [id number] [address] [place] [address], [place] [address] Feb, [facility] [address] [id number] [address] [place] [address], [place] [address] Jan, [facility] [address] [id number] [address] [place] [address], [place] [address] 18 Jan, 2013 [facility] [address] [id number] [address] [place] [address], [place] [address] 17 Jan, 2013 [facility] [address] [id number] [address] [place] [address], [place] [address] 14 Jan, 2013 [facility] [address] [id number] [address] [place] [address], [place] [address] December, [facility] [address] [id number] [address] [place] [address], [place] [address] December, [facility] [address] [id number] [address] [place] [address], [place] [address] 24 Nov, 2012 [facility] [address] [id number] [address] [place] [address], [place] [address] Nov, [facility] [address] [id number] [address] [place] [address], [place] [address] Nov, [facility] [address] [id number] [address] [place] [address], [place] [address] Nov, [facility] [address] [id number] [address] [place] [address], [place] [address] Nov, [facility] [address] [id number] [address] [place] [address], [place] [address] Nov, [facility] [address] [id number] [address] [place] [address], [place] [address] Nov, [facility] [address] [id number] [address] [place] [address], [place] [address] 27 Oct, 2012 [facility] [address] [id number] [address] [place] [address], [place] [address] 18 Oct, 2012 [facility] [address] [id number] [address] [place] [address], [place] [address] 14 Oct, 2012 [facility] [address] [id number] [address] [place] [address], [place] [address] 13 Oct, 2012 [facility] [address] [id number] [address] [place] [address], [place] [address] 12 Oct, 2012 [facility] [address] [id number] [address] [place] [address], [place] [address] 11 Oct, 2012 [facility] [address] [id number] [address] [place] [address], [place] [address] 08 Oct, 2012 [facility] [address] [id number] [address] [place] [address], [place] [address] Sep, [facility] [address] [id number] [address] [place] [address], [place] [address] Sep, [facility] [address] [id number] [address] [place] [address], [place] [address] Aug, [facility] [address] [id number] [address] [place] [address], [place] [address] Aug, [facility] [address] [id number] [address] [place] [address], [place] [address] Jul, [facility] [address] [id number] [address] [place] [address], [place] [address] Jul, [facility] [address] [id number] [address] [place] [address], [place] [address] Jul, [facility] [address] [id number] [address] [place] [address], [place] [address] Jul, [facility] [address] [id number] [address] [place] [address], [place] [address] Jul, [facility] [address] [id number] [address] [place] [address], [place] [address] Jul, [facility] [address] [id number] [address] [place] [address], [place] [address] Jul, [facility] [address] [id number] [address] [place] [address], [place] [address] Jul, [facility] [place] [address] [facility] [place] [facility] [id number] [address] [address] Jun, [facility] [place] [address] [facility] [place] [place] [id number] [address] [place] [address] Jun, IMMUNIZATIONS No Known Immunizations SOCIAL HISTORY Never Assessed REASON FOR VISIT [facility] [place] VITAL SIGNS MEDICATIONS No [...]
--- OUTSIDE RECORDS SUMMARY | 2020-02-11 03:20 | XMS REPORT ---
Author Author Madeline Magdaleno Doctor Organization [facility] Address Unknown Phone Unavailable Care Team Providers Care Head Butler Name Role Phone Migration, Doctor Unavailable Unavailable PROBLEMS Type Condition ICD9-CM Code [id number] Code Onset Dates Condition S tatus SNOMED Code Problem Pre-diabetes R73.09 Active 5570053 02 Problem Chronic pain G89.29 Active 8157447 1 Problem GERD (gastroesophageal reflux disease) K21.9 Active 591491254 Problem Essential hypertension I10 Active 19631482 Problem Primary insomnia F51.01 Active 397 2004 Problem Numbness and tingling in hands R20.2 Active 767032593 Problem History of abnormal cervical Pap smear Z87.898 Active 994635609 Problem Stasis dermatitis of both legs I87.2 Active 77548917 Problem BMI 45.0-49.9, adult Z68.42 Active 802276384 ALLERGIES Substance Reaction Event Type Date Status Meloxicam 7.5 Mg Tablet Unknown Non Drug Allergy Nov, Active ENCOUNTERS Encounter Location Date Diagnosis [place] [address] [place] [id number] [address] [place] [address] 11 Jan, 2019 [place] [address] [place] [id number] [place] [address] 10 Jan, 2019 Chronic pain G89.29 and BMI 45.0-49.9, adult Z68.42 [facility] [address] [place] [id number] [address] [place] [address] 03 Jan, 2019 [place] [address] [place] [id number] [place] [address] December, Chronic pain G89.29 and BMI 45.0-49.9, adult Z68.42 [facility] [address] [place] [id number] [place] [address] Nov, Morbid obesity E66.01 and Ce llulitis of leg, left L03.116 [facility] [address] [facility] [id number] [address] [place] [address] 15 Nov, 2018 Cellulitis of left lower ext remity L03.116 and Morbid obesity E66.01 [facility] [address] [facility] [id number] [address] [place] [address] 13 Nov, 2018 [facility] [address] [place] [id number] [place] [address] 12 Nov, 2018 Morbid obesity E66.01 and Ce llulitis of left lower extremity L03.116 [facility] [address] [facility] [id number] [address] [place] [address] Nov, Chronic pain G89.29 and BMI 45.0-49.9, adult Z68.42 [place] [address] [address] Oct, BMI 45.0-49.9, adult Z68.42 and Chronic pain G89.29 [facility] [address] [place] [id number] [place] [address] 14 Sep, 2018 BMI 45.0-49.9, adult Z68.42 and Chronic pain G89.29 [place] [address] [place] [id number] [place] [address] 05 Sep, 2018 BMI 45.0-49.9, adult Z68.42 and Essential hypertension I10 [place] [id number] [place] [address] Aug, BMI 45.0-49.9, adult Z68.42 ; Chronic pain G89.29 ; Essential hypertension I10 and Primary insomnia F51.01 [place] [address] [place] [id number] [place] [address] Aug, Chronic pain G89.29 [place] [address] [place] [id number] [place] [address] Jul, Chronic pain G89.29 [place] [address] [place] [id number] [place] [address] Jun, Chronic pain G89.29 [facility] [address] [id number] [address] [place] [address] May, Chronic pain G89.29 [facility] [address] [facility] [id number] [address] [place] [address] May, BMI 40.0-44.9, adult Z68.41 ; Other chronic pain G89.29 ; Pain in right hip M25.551 and Acute pain of left knee M25.562 [facility] [address] [id number] [address] [place] [address] May, Chronic pain G89.29 [facility] [address] [id number] [address] [place] [address] Apr, Chronic pain G89.29 [facility] [address] [facility] [id number] [address] [place] [address] Mar, Poison josep L23.7 [facility] [address] [id number] [address] [place] [address] Mar, Chronic pain G89.29 [facility] [address] [id number] [address] [place] [address] Feb, Chronic pain G89.29 [facility] [address] [facility] [id number] [address] [place] [address] Feb, Poison josep L23.7 [facility] [address] [facility] [id number] [address] [place] [address] Jan, Chronic pain G89.29 [facility] [address] [facility] [id number] [address] [place] [address] December, Chronic pain G89.29 [facility] [address] [facility] [id number] [address] [place] [address] Nov, Long-term use of high-risk m edication Z79.899 [place] [address] [address] Nov, Chronic pain G89.29 [place] [address] [address] Oct, Chronic pain G89.29 ; Pre-di abetes R73.09 ; Long-term use of high- risk medication Z79.899 ; Allergic rhinitis, unspecified seasonality, unspecified trigger J30.9 ; BMI 45.0-49.9, adult Z68.42 and Essential hypertension I10 [place] [address] [address] Oct, Chronic pain G89.29 [place] [address] [address] Sep, Chronic pain G89.29 [place] [address] [address] Aug, Chronic pain G89.29 [place] [address] [address] Jul, [place] [address] [address] Jul, [place] [address] [address] Jun, Chronic pain G89.29 ; BMI 45 .0-49.9, adult Z68.42 ; Pre-diabetes R73.09 ; Essential hypertension I10 ; GERD (gastroesophageal reflux disease) K21.9 ; Yeast dermatitis B37.2 ; Dysuria R30.0 ; Acute non-recurrent maxillary sinusitis J01.00 and Acute cystitis with hematuria N30.01 [place] [address] [place] [id number] [place] [address] 13 Jun, 2017 Chronic pain G89.29 [place] [address] [place] [id number] [place] [address] 02 Jun, 2017 Acute non-recurrent maxillar y sinusitis J01.00 and BMI 45.0-49.9, adult Z68.42 [place] [address] [address] May, [place] [address] [place] [id number] [address] [place] [address] May, Chronic pain G89.29 [place] [address] [address] May, [place] [address] [place] [id number] [place] [address] Apr, Chronic pain G89.29 [place] [address] [place] [id number] [place] [address] Mar, [place] [address] [address] Mar, Essential hypertension I10 a nd Pre-diabetes R73.09 [place] [address] [address] Mar, Chronic pain G89.29 ; Essent ial hypertension I10 ; Depressive disorder, not elsewhere classified F32.9 ; GERD (gastroesophageal reflux disease) K21.9 ; Pre-diabetes R73.09 ; Stasis dermatitis of both legs I87.2 and Acute non-recurrent maxillary sinusitis J01.00 [place] [address] [address] Mar, Chronic pain G89.29 [place] [address] [place] [id number] [place] [address] Mar, Achilles tendinitis of right lower extremity M76.61 and Tinea corporis B35.4 [place] [address] [place] [id number] [place] [address] Feb, Yeast dermatitis B37.2 [place] [address] [place] [id number] [place] [address] Feb, Candidal intertrigo B37.2 an d Acute right ankle pain M25.571 [place] [address] [facility] [id number] [address] [place] [address] Feb, Chronic pain G89.29 [place] [address] [facility] [id number] [address] [place] [address] Jan, [place] [address] [place] [id number] [place] [address] Jan, Chronic pain G89.29 [place] [address] [facility] [id number] [address] [place] [address] December, Chronic pain G89.29 ; Essent ial hypertension I10 ; Depressive disorder, not elsewhere classified F32.9 ; GERD (gastroesophageal reflux disease) K21.9 ; Pre-diabetes R73.09 ; Screening breast examination Z12.39 ; Stasis dermatitis of both legs I87.2 and Yeast dermatitis B37.2 [place] [address] [facility] [id number] [address] [place] [address] Nov, Chronic pain G89.29 [place] [address] [facility] [id number] [address] [place] [address] Nov, Cellulitis of left lower ext remity L03.116 [place] [address] [facility] [id number] [address] [place] [address] Nov, Cellulitis of left lower ext remity L03.116 [place] [address] [facility] [id number] [address] [place] [address] Oct, Yeast dermatitis B37.2 [place] [address] [facility] [id number] [address] [place] [address] Oct, Chronic pain G89.29 [place] [address] [facility] [id number] [address] [place] [address] Sep, Chronic pain G89.29 ; Essent ial hypertension I10 ; Depressive disorder, not elsewhere classified F32.9 and GERD (gastroesophageal reflux disease) K21.9 [facility] [address] [address] Aug, Chronic pain G89.29 [place] [address] [address] Aug, Cough R05 ; Rash R21 and Vinay h and nonspecific skin eruption R21 [address] [address] Jul, Chronic pain G89.29 [place] [address] [address] Jun, Chronic pain G89.29 ; Bronch itis J40 ; Essential hypertension I10 ; Depressive disorder, not elsewhere classified F32.9 ; GERD (gastroesophageal reflux disease) K21.9 and History of long-term use of multiple prescription drugs Z92.29 [place] [address] [address] Jun, Bronchitis J40 ; Chills R68. 83 and Sore throat J02.9 [place] [address] [address] May, [place] [address] [address] Apr, [facility] [address] [address] Apr, Acute mucoid otitis media of both ears H65.113 [place] [address] [address] Apr, Yeast dermatitis B37.2 and H ematuria R31.9 [place] [address] [address] Mar, [place] [address] [address] Mar, [place] [address] [address] Feb, Left anterior knee pain M25. 562 [place] [address] [address] Feb, Chronic pain G89.29 ; Essent ial hypertension I10 ; Depressive disorder, not elsewhere classified F32.9 ; GERD (gastroesophageal reflux disease) K21.9 and History of long-term use of multiple prescription drugs Z92.29 [place] [address] [address] Jan, [place] [address] [address] Jan, Well woman exam Z01.419 ; BM I 45.0-49.9, adult Z68.42 ; Family history of diabetes mellitus Z83.3 and Chronic pain G89.[address] [address] December, Chronic pain G89.29 ; Essent ial hypertension I10 ; Depressive disorder, not elsewhere classified F32.9 ; GERD (gastroesophageal reflux disease) K21.9 ; 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 ; History of long-term use of multiple prescription drugs Z92.29 and Obesity E66.9 [place] [address] [address] Oct, [place] [address] [address] Oct, Well woman exam Z01.419 ; BM [...] smear Z12.4 and No natural teeth K00.0 [place] [address] [place] [address] Oct, [place] [address] [address] Sep, Chronic pain G89.29 ; Essent ial hypertension I10 ; GERD (gastroesophageal reflux disease) K21.9 ; 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 ; Skin infection L08.9 and History of long-term use of multiple prescription drugs Z92.29 [place] [address] [address] Aug, [place] [address] [address] Jul, [place] [address] [address] Jul, [place] [address] [address] Jul, Upper respiratory infection J06.9 [place] [address] [address] Jul, Depressive disorder, not els ewhere classified F32.[address] [address] Jul, Chronic pain 338.29 [place] [address] [address] Jul, Chronic pain G89.29 [place] [address] [address] Jun, Poison josep L23.7 [place] [address] [address] Jun, Allergic contact dermatitis due to plants, except food L23.7 [place] [address] [address] Jun, Essential hypertension I10 ; Chronic pain G89.29 ; GERD (gastroesophageal reflux disease) K21.9 and Numbness and tingling in hands R20.2 [facility] [address] [address] May, [facility] [address] [address] Apr, [facility] [address] [address] Mar, [place] [address] [address] Feb, Abdominal pain, left lateral 789.09 and Constipation 564.00 [place] [address] [address] Feb, Depressive disorder, not els ewhere classified 311 and No condition on [place] II V71.09 [place] [address] [address] Feb, Spider bite 989.5 and Depres homar 311 [place] [address] [address] Feb, [place] [address] [address] Feb, Chronic pain 338.29 ; Arthro zonia 716.90 and GERD (gastroesophageal reflux disease) 530.81 [place] [address] [address] Jan, Insect bites 919.4 [place] [address] [place] [id number] [place] [address] Jan, [place] [address] [address] December, Skin infection, bacterial 68 6.9 ; Conjunctivitis 372.30 and Insect bites 919.4 [place] [address] [place] [id number] [place] [address] December, Chronic pain 338.29 ; Arthro zonia 716.90 ; Skin infection, bacterial 686.9 and Conjunctivitis 372.30 [facility] [address] [id number] [address] [place] [address] December, [facility] [address] [id number] [address] [place] [address], [place] [address] Nov, [facility] [address] [id number] [address] [place] [address] Nov, [facility] [address] [id number] [address] [place] [address] Oct, [facility] [address] [id number] [address] [place] [address] Oct, [facility] [address] [id number] [address] [place] [address] Sep, [facility] [address] [id number] [address] [place] [address] Sep, [facility] [address] [id number] [address] [place] [address] Aug, [facility] [address] [id number] [address] [place] [address] Aug, [facility] [address] [id number] [address] [place] [address] Aug, [facility] [address] [id number] [address] [place] [address] Aug, [facility] [address] [id number] [address] [place] [address] Jul, [facility] [address] [id number] [address] [place] [address] Jul, [facility] [address] [id number] [address] [place] [address] Jul, [facility] [address] [id number] [address] [place] [address] Jul, [facility] [place] [facility] [address] [id number] [address] [place] [address], [place] [address] 15 Jul, 2014 [facility] [place] [facility] [address] [id number] [address] [place] [address], [place] [address] 15 Jul, 2014 [facility] [place] [facility] [address] [id number] [address] [place] [address], [place] [address] 15 Jul, 2014 [facility] [place] [facility] [address] [id number] [address] [place] [address], [place] [address] Jul, [facility] [place] [facility] [address] [id number] [address] [place] [address], [place] [address] Jul, [facility] [place] [facility] [address] [id number] [address] [place] [address], [place] [address] Jun, [facility] [place] [facility] [address] [id number] [address] [place] [address], [place] [address] Jun, [facility] [place] [facility] [address] [id number] [address] [place] [address], [place] [address] Jun, [facility] [place] [facility] [address] [id number] [address] [place] [address], [place] [address] Jun, [facility] [place] [facility] [address] [id number] [address] [place] [address], [place] [address] Jun, [facility] [place] [facility] [address] [id number] [address] [place] [address], [place] [address] Jun, [facility] [place] [facility] [address] [id number] [address] [place] [address], [place] [address] Jun, [facility] [place] [facility] [address] [id number] [address] [place] [address], [place] [address] Jun, [facility] [place] [facility] [address] [id number] [address] [place] [address], [place] [address] May, [facility] [place] [facility] [address] [id number] [address] [place] [address], [place] [address] May, [facility] [place] [facility] [address] [id number] [address] [place] [address] [place] [address] 16 May, 2014 [facility] [address] [id number] [address] [place] [address], [place] [address] May, [facility] [place] [facility] [address] [id number] [address] [place] [address], [place] [address] May, [facility] [address] [id number] [address] [place] [address], [place] [address] Apr, 2013 [facility] [place] [facility] [address] [id number] [address] [place] [address], [place] [address] 26 Apr, 2013 [facility] [address] [id number] [address] [place] [address], [place] [address] Apr, 2013 [facility] [place] [facility] [address] [id number] [address] [place] [address], [place] [address] Apr, 2013 [facility] [address] [id number] [address] [place] [address], [place] [address] Apr, 2013 [facility] [place] [facility] [address] [id number] [address] [place] [address], [place] [address] 18 Apr, 2013 [facility] [address] [id number] [address] [place] [address], [place] [address] Apr, 2013 [facility] [address] [id number] [address] [place] [address], [place] [address] 18 Apr, 2013 [facility] [place] [facility] [address] [id number] [address] [place] [address], [place] [address] Apr, 2013 [facility] [place] [facility] [address] [id number] [address] [place] [address], [place] [address] Apr, 2013 [facility] [place] [facility] [address] [id number] [address] [place] [address], [place] [address] Mar, [facility] [place] [facility] [address] [id number] [address] [place] [address], [place] [address] Mar, [facility] [place] [facility] [address] [id number] [address] [place] [address], [place] [address] 15 Mar, 2014 [facility] [place] [facility] [address] [id number] [address] [place] [address], [place] [address] Mar, [facility] [address] [id number] [address] [place] [address], [place] [address] Mar, [facility] [place] [facility] [address] [id number] [address] [place] [address], [place] [address] Mar, [facility] [place] [facility] [address] [id number] [address] [place] [address], [place] [address] Feb, [facility] [place] [facility] [address] [id number] [address] [place] [address], [place] [address] Feb, [facility] [place] [facility] [address] [id number] [address] [place] [address], [place] [address] Jan, [facility] [address] [id number] [address] [place] [address], [place] [address] Jan, [facility] [address] [id number] [address] [place] [address], [place] [address] Jan, [facility] [address] [id number] [address] [place] [address], [place] [address] Jan, [facility] [address] [id number] [address] [place] [address], [place] [address] December, [facility] [address] [id number] [address] [place] [address], [place] [address] December, [facility] [address] [id number] [address] [place] [address], [place] [id number] December, [facility] [address] [id number] [address] [place] [address], [place] [id number] December, [facility] [address] [id number] [address] [place] [address], [place] [id number] December, [facility] [address] [id number] [address] [place] [address], [place] [id number] December, [facility] [address] [id number] [address] [place] [address], [place] [id number] December, [facility] [address] [id number] [facility] [id number] December, [facility] [address] [id number] [address] [place] [address], [place] [id number] December, [facility] [address] [id number] [address] [place] [address], [place] [id number] Nov, [facility] [address] [id number] [address] [place] [address], [place] [id number] Nov, [facility] [address] [id number] [address] [place] [address], [place] [id number] Nov, [facility] [address] [id number] [address] [place] [address], [place] [id number] Nov, [facility] [address] [id number] [address] [place] [address], [place] [id number] Nov, [facility] [address] [id number] [address] [place] [address], [place] [id number] Nov, [facility] [address] [id number] [address] [place] [address], [place] [id number] Nov, [facility] [address] [id number] [address] [place] [address], [place] [id number] Nov, [facility] [address] [id number] [address] [place] [address], [place] [id number] Nov, [facility] [address] [id number] [address] [place] [address], [place] [id number] Nov, [facility] [address] [id number] [address] [place] [address], [place] [id number] Oct, [facility] [address] [id number] [address] [place] [address], [place] [id number] Oct, [facility] [address] [id number] [address] [place] [address], [place] [address] Sep, [facility] [address] [id number] [address] [place] [address], [place] [id number] Sep, [facility] [address] [id number] [address] [place] [address], [place] [id number] Aug, [facility] [address] [id number] [address] [place] [address], [place] [id number] 17 Aug, 2013 [facility] [address] [id number] [address] [place] [address], [place] [id number] Aug, [facility] [address] [id number] [address] [place] [address], [place] [id number] Aug, [facility] [address] [id number] [address] [place] [address], [place] [id number] Jul, [facility] [address] [id number] [address] [place] [address], [place] [id number] Jul, [facility] [address] [id number] [address] [place] [address], [place] [id number] Jul, [facility] [address] [id number] [address] [place] [address], [place] [id number] Jul, [facility] [address] [id number] [address] [place] [address], [place] [id number] Jun, [facility] [address] [address] [id number] [address] [place] [address], [place] [id number] Jun, [facility] [address] [id number] [address] [place] [address], [place] [id number] May, [facility] [address] [id number] [address] [place] [address], [place] [id number] May, [facility] [address] [id number] [address] [place] [address], [place] [id number] May, [facility] [address] [id number] [address] [place] [address], [place] [id number] May, [facility] [address] [id number] [address] [place] [address], [place] [id number] May, [facility] [address] [id number] [address] [place] [address], [place] [id number] May, [facility] [address] [id number] [address] [place] [address], [place] [id number] 30 Apr, 2013 [facility] [address] [id number] [address] [place] [address], [place] [id number] Apr, [facility] [address] [id number] [address] [place] [address], [place] [id number] Apr, [facility] [address] [id number] [address] [place] [address], [place] [id number] Feb, [facility] [address] [id number] [address] [place] [address], [place] [id number] Jan, [facility] [address] [id number] [address] [place] [address], [place] [id number] Jan, [facility] [address] [id number] [address] [place] [address], [place] [id number] Jan, [facility] [address] [id number] [address] [place] [address], [place] [id number] Jan, [facility] [address] [id number] [address] [place] [address], [place] [id number] December, [facility] [address] [id number] [address] [place] [address], [place] [id number] December, [facility] [address] [id number] [address] [place] [address], [place] [id number] 24 Nov, 2012 [facility] [address] [id number] [address] [place] [address], [place] [id number] Nov, [facility] [address] [id number] [address] [place] [address], [place] [id number] Nov, [facility] [address] [id number] [address] [place] [address], [place] [id number] Nov, [facility] [address] [id number] [address] [place] [address], [place] [id number] 08 Nov, 2012 [facility] [address] [id number] [address] [place] [address], [place] [id number] 08 Nov, 2012 [facility] [address] [id number] [address] [place] [address], [place] [id number] 03 Nov, 2012 [facility] [address] [id number] [address] [place] [address], [place] [id number] 27 Oct, 2012 [facility] [address] [id number] [address] [place] [address], [place] [id number] 18 Oct, 2012 [facility] [address] [id number] [address] [place] [address], [place] [id number] 14 Oct, 2012 [facility] [address] [id number] [address] [place] [address], [place] [id number] 13 Oct, 2012 [facility] [address] [id number] [address] [place] [address], [place] [id number] 12 Oct, 2012 [facility] [address] [id number] [address] [place] [address], [place] [id number] 11 Oct, 2012 [facility] [address] [id number] [address] [place] [address], [place] [id number] 08 Oct, 2012 [facility] [address] [id number] [address] [place] [address], [place] [id number] 20 Sep, 2012 [facility] [address] [id number] [address] [place] [address], [place] [id number] Sep, [facility] [address] [id number] [address] [place] [address], [place] [id number] Aug, [facility] [address] [id number] [address] [place] [address], [place] [id number] Aug, [facility] [address] [id number] [address] [place] [address], [place] [id number] Jul, [facility] [address] [id number] [address] [place] [address], [place] [id number] Jul, [facility] [address] [id number] [address] [place] [id number] Jul, [facility] [address] [id number] [address] [place] [id number] Jul, [facility] [address] [id number] [address] [place] [id number] Jul, [facility] [address] [id number] [address] [place] [id number] Jul, [facility] [address] [id number] [address] [place] [id number] Jul, [facility] [address] [id number] [address] [place] [id number] Jul, [facility] [address] [id number] [address] [place] [id number] Jun, [facility] [address] [id number] [address] [place] [id number] Jun, IMMUNIZATIONS No Known Immunizations SOCIAL HISTORY Never Assessed REASON FOR VISIT EMR-[facility] PLAN OF CARE VITAL SIGNS MEDICATIONS Medication Instructions Dosage Frequency Start Date End Date Duration S tatus Elavil 25 mg 1-2 tablet by Oral route 1 time per day a t bedtime Mar, Active Bactrim DS 800-160 mg 1 tablet by Oral route 2 times p er day for 7 day(s) December, Active Augmentin 875-125 mg 1 tablet by Oral route 2 times pe r day for 7 day(s) Sep, Active Hydrocodone-Acetaminophen 5-325 mg 1 Tab let by Oral route 3 times per day PRN MUST LAST 30 DAYS Oct, Active Promethazine-Codeine 6.25-10 mg/5 mL 5 m L by Oral route every 4 hours for 5 day(s) Jul, Active Flagyl 500 mg 1 tablet by Oral route 2 times per day f or 7 days Oct, Active MethylPREDNISolone 4 mg by Oral route ev lenny day for 6 days as directed per dose pack Aug, Active Provera 10 mg 1 tablet by Oral rou te 1 time per day for 7 days start on day 21 cycle 18 Oct, 2012 Active PredniSONE 10 mg 1 Tablet 2 times per day for 5 days Take at 8 am and noon. Do not take after 3 pm Apr, Active Ciprofloxacin 500 mg 1 tablet by Oral route every 12 h ours for 7 day(s) Jul, Active Albuterol Sulfate 90 mcg/actuation 2 puf fs by Inhalation route every 4-6 hours as needed PRN cough or wheezing Aug, Active Diflucan 150 mg take 1 tablet by Oral route once 1 ti me per day for 3 days Oct, Active Omeprazole 20 mg take 1 capsule (20 m g) by oral route once daily before a meal Aug, Active Zithromax Z-Gabriel 250 mg 2 tablet by Oral route 1 time per day for 5 days on day 1 then take 1 tab daily on days 2-5 May, Active Estradiol 1 mg take 1 tablet (1 mg) by oral route once daily December, Active Indomethacin 50 mg 1 capsule by Oral route 3 times per day Jun, Active Azithromycin 250 mg 2 Tablet by Oral rou te on day 1 then take 1 daily for 6 days Jul, Active RESULTS No Results PROCEDURES No Known [...] -- total 11/2012 Hospitalization History ER- in [place] due to left knee 8
--- OUTSIDE RECORDS SUMMARY | 2020-02-11 03:20 | XMS REPORT ---
Author Author Madeline Magdaleno Doctor Organization [facility] Address Unknown Phone Unavailable Care Team Providers Care Harness Worker Name Role Phone Migration, Doctor Unavailable Unavailable PROBLEMS Type Condition ICD9-CM Code [id number] Code Onset Dates Condition S tatus SNOMED Code Problem Pre-diabetes R73.09 Active 4909299 02 Problem Chronic pain G89.29 Active 7090405 1 Problem GERD (gastroesophageal reflux disease) K21.9 Active 175095057 Problem Essential hypertension I10 Active 18473188 Problem Primary insomnia F51.01 Active 397 2004 Problem Numbness and tingling in hands R20.2 Active 769385035 Problem History of abnormal cervical Pap smear Z87.898 Active 273562188 Problem Stasis dermatitis of both legs I87.2 Active 62437805 Problem BMI 45.0-49.9, adult Z68.42 Active 591537370 ALLERGIES No Information ENCOUNTERS Encounter Location Date Diagnosis [facility] [address] [address] December, Chronic pain G89.29 and BMI 45.0-49.9, adult Z68.42 [facility] [address] [id number] [place] [address] Nov, Morbid obesity E66.01 and Ce llulitis of leg, left L03.116 [facility] [id number] [place] [id number] 15 Nov, 2018 Cellulitis of left lower ext remity L03.116 and Morbid obesity E66.01 [facility] [id number] [place] [address] Nov, [facility] [address] [address] Nov, Morbid obesity E66.01 and Ce llulitis of left lower extremity L03.116 [place] [address] [id number] [place] [address] Nov, Chronic pain G89.29 and BMI 45.0-49.9, adult Z68.42 [place] [address] [address] Oct, BMI 45.0-49.9, adult Z68.42 and Chronic pain G89.29 [place] [address] [address] 14 Sep, 2018 BMI 45.0-49.9, adult Z68.42 and Chronic pain G89.29 [place] [address] [address] 05 Sep, 2018 BMI 45.0-49.9, adult Z68.42 and Essential hypertension I10 [place] [address] [address] Aug, BMI 45.0-49.9, adult Z68.42 ; Chronic pain G89.29 ; Essential hypertension I10 and Primary insomnia F51.01 [place] [address] [address] Aug, Chronic pain G89.29 [place] [address] [address] Jul, Chronic pain G89.29 [place] [address] [address] Jun, Chronic pain G89.29 [place] [address] [place] [id number] [place] [address] May, Chronic pain G89.29 [place] [address] [address] [id number] [place] [address] May, BMI 40.0-44.9, adult Z68.41 ; Other chronic pain G89.29 ; Pain in right hip M25.551 and Acute pain of left knee M25.562 [facility] [address] [id number] [address] [place] [address] May, Chronic pain G89.29 [facility] [address] [facility] [id number] [address] [place] [id number] Apr, Chronic pain G89.29 [facility] [address] [facility] [id number] [address] [place] [address] Mar, Poison josep L23.7 [facility] [address] [facility] [id number] [address] [place] [address] Mar, Chronic pain G89.29 [place] [address] [facility] [id number] [address] [place] [id number] Feb, Chronic pain G89.29 [place] [address] [facility] [id number] [address] [place] [address] Feb, Poison josep L23.7 [place] [address] [facility] [id number] [address] [place] [id number] Jan, Chronic pain G89.29 [place] [address] [facility] [id number] [address] [place] [id number] December, Chronic pain G89.29 [place] [address] [facility] [id number] [address] [place] [id number] Nov, Long-term use of high-risk m edication Z79.899 [place] [address] [facility] [id number] [address] [place] [address] Nov, Chronic pain G89.29 [place] [address] [facility] [id number] [address] [place] [address] Oct, Chronic pain G89.29 ; Pre-di abetes R73.09 ; Long-term use of high- risk medication Z79.899 ; Allergic rhinitis, unspecified seasonality, unspecified trigger J30.9 ; BMI 45.0-49.9, adult Z68.42 and Essential hypertension I10 [facility] [address] [facility] [id number] [address] [place] [id number] Oct, Chronic pain G89.29 [facility] [address] [facility] [id number] [address] [place] [address] Sep, Chronic pain G89.29 [facility] [address] [facility] [id number] [address] [place] [address] Aug, Chronic pain G89.29 [facility] [address] [facility] [id number] [address] [place] [id number] Jul, [facility] [address] [facility] [id number] [address] [place] [address] Jul, [facility] [address] [id number] [address] [place] [address] Jun, Chronic pain G89.29 ; BMI 45 .0-49.9, adult Z68.42 ; Pre-diabetes R73.09 ; Essential hypertension I10 ; GERD (gastroesophageal reflux disease) K21.9 ; Yeast dermatitis B37.2 ; Dysuria R30.0 ; Acute non-recurrent maxillary sinusitis J01.00 and Acute cystitis with hematuria N30.01 [place] [address] [facility] [id number] [address] [place] [address] Jun, Chronic pain G89.29 [facility] [address] [id number] [address] [place] [phone] Jun, Acute non-recurrent maxillar y sinusitis J01.00 and BMI 45.0-49.9, adult Z68.42 [facility] [address] [facility] [id number] [address] [place] [id number] May, [facility] [address] [facility] [id number] [address] [place] [address] May, Chronic pain G89.29 [facility] [address] [id number] [address] [place] [id number] May, [facility] [address] [id number] [place] [address] Apr, Chronic pain G89.29 [place] [address] [place] [id number] [address] [place] [address] Mar, [place] [address] [address] Mar, Essential hypertension I10 a nd Pre-diabetes R73.09 [place] [address] [address] Mar, Chronic pain G89.29 ; Essent ial hypertension I10 ; Depressive disorder, not elsewhere classified F32.9 ; GERD (gastroesophageal reflux disease) K21.9 ; Pre-diabetes R73.09 ; Stasis dermatitis of both legs I87.2 and Acute non-recurrent maxillary sinusitis J01.00 [place] [address] [address] Mar, Chronic pain G89.29 [place] [address] [address] Mar, Achilles tendinitis of right lower extremity M76.61 and Tinea corporis B35.4 [place] [address] [address] Feb, Yeast dermatitis B37.2 [place] [address] [address] Feb, Candidal intertrigo B37.2 an d Acute right ankle pain M25.571 [place] [address] [place] [id number] [address] [place] [address] Feb, Chronic pain G89.29 [place] [address] [place] [id number] [place] [address] Jan, [place] [address] [address] Jan, Chronic pain G89.29 [place] [address] [place] [id number] [place] [address] December, Chronic pain G89.29 ; Essent ial hypertension I10 ; Depressive disorder, not elsewhere classified F32.9 ; GERD (gastroesophageal reflux disease) K21.9 ; Pre-diabetes R73.09 ; Screening breast examination Z12.39 ; Stasis dermatitis of both legs I87.2 and Yeast dermatitis B37.2 [place] [address] [place] [address] Nov, Chronic pain G89.29 [place] [address] [address] Nov, Cellulitis of left lower ext remity L03.116 [place] [address] [address] Nov, Cellulitis of left lower ext remity L03.116 [place] [address] [address] Oct, Yeast dermatitis B37.2 [place] [address] [address] Oct, Chronic pain G89.29 [place] [address] [address] Sep, Chronic pain G89.29 ; Essent ial hypertension I10 ; Depressive disorder, not elsewhere classified F32.9 and GERD (gastroesophageal reflux disease) K21.9 [place] [id number] [place] [address] Aug, Chronic pain G89.29 [place] [address] [address] Aug, Cough R05 ; Rash R21 and Vinay h and nonspecific skin eruption R21 [place] [address] [place] [id number] [place] [address] Jul, Chronic pain G89.29 [place] [address] [address] Jun, Chronic pain G89.29 ; Bronch itis J40 ; Essential hypertension I10 ; Depressive disorder, not elsewhere classified F32.9 ; GERD (gastroesophageal reflux disease) K21.9 and History of long-term use of multiple prescription drugs Z92.29 [place] [address] [address] Jun, Bronchitis J40 ; Chills R68. 83 and Sore throat J02.9 [place] [address] [address] May, [place] [address] [address] Apr, [facility] [address] [address] Apr, Acute mucoid otitis media of both ears H65.113 [place] [address] [address] 07 Apr, 2016 Yeast dermatitis B37.2 and H ematuria R31.9 [place] [address] [address] Mar, [place] [address] [address] Mar, [place] [address] [address] Feb, Left anterior knee pain M25. 562 [place] [address] [address] Feb, Chronic pain G89.29 ; Essent ial hypertension I10 ; Depressive disorder, not elsewhere classified F32.9 ; GERD (gastroesophageal reflux disease) K21.9 and History of long-term use of multiple prescription drugs Z92.29 [place] [address] [address] Jan, [place] [address] [address] Jan, Well woman exam Z01.419 ; BM I 45.0-49.9, adult Z68.42 ; Family history of diabetes mellitus Z83.3 and Chronic pain G89.29 [place] [address] [address] December, Chronic pain G89.29 ; Essent ial hypertension I10 ; Depressive disorder, not elsewhere classified F32.9 ; GERD (gastroesophageal reflux disease) K21.9 ; 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 ; History of long-term use of multiple prescription drugs Z92.29 and Obesity E66.[address] [address] Oct, [address] [address] Oct, Well woman exam Z01.419 ; BM [...] Z12.4 and No natural teeth K00.[address] [address] Oct, [address] [address] Sep, Chronic pain G89.29 ; Essent ial hypertension I10 ; GERD (gastroesophageal reflux disease) K21.9 ; 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 ; Skin infection L08.9 and History of long-term use of multiple prescription drugs Z92.[address] [address] Aug, [facility] [address] [facility] [id number] [address] [place] [address] Jul, [facility] [id number] [place] [address] Jul, [facility] [id number] [address] [place] [address] Jul, Upper respiratory infection J06.9 [facility] [address] [id number] [place] [address] Jul, Depressive disorder, not els ewhere classified F32.9 [facility] [address] [facility] [id number] [address] [place] [address] Jul, Chronic pain 338.29 [place] [address] [place] [id number] [place] [address] Jul, Chronic pain G89.29 [place] [address] [address] Jun, Poison josep L23.7 [place] [address] [place] [id number] [place] [address] Jun, Allergic contact dermatitis due to plants, except food L23.7 [place] [address] [place] [id number] [place] [address] Jun, Essential hypertension I10 ; Chronic pain G89.29 ; GERD (gastroesophageal reflux disease) K21.9 and Numbness and tingling in hands R20.2 [facility] [address] [facility] [id number] [address] [place] [address] May, [facility] [address] [id number] [place] [address] Apr, [facility] [address] [facility] [id number] [address] [place] [address] Mar, [facility] [address] [id number] [place] [address] Feb, Abdominal pain, left lateral 789.09 and Constipation 564.00 [facility] [address] [place] [id number] [place] [address] Feb, Depressive disorder, not els ewhere classified 311 and No condition on Baring II V71.09 [facility] [address] [place] [id number] [address] [place] [address] Feb, Spider bite 989.5 and Depres homar 311 [facility] [address] [place] [id number] [address] [place] [address] Feb, [facility] [address] [id number] [place] [address] Feb, Chronic pain 338.29 ; Arthro zonia 716.90 and GERD (gastroesophageal reflux disease) 530.81 [place] [address] [place] [id number] [place] [address] Jan, Insect bites 919.4 [facility] [address] [id number] [place] [address] Jan, [facility] [address] [address] [id number] [place] [address] December, Skin infection, bacterial 68 6.9 ; Conjunctivitis 372.30 and Insect bites 919.4 [facility] [address] [place] [id number] [place] [address] December, Chronic pain 338.29 ; Arthro zonia 716.90 ; Skin infection, bacterial 686.9 and Conjunctivitis 372.30 [facility] [address] [place] [id number] [place] [address] December, [facility] [address] [place] [id number] [place] [address] Nov, [facility] [address] [place] [id number] [place] [address] Nov, [facility] [address] [id number] [place] [address] Oct, [facility] [address] [id number] [address] [place] [address], [place] [address] Oct, [facility] [address] [id number] [address] [place] [address], [place] [address] Sep, [facility] [address] [id number] [address] [place] [address], [place] [address] Sep, [facility] [address] [id number] [address] [place] [address], [place] [address] Aug, [facility] [address] [id number] [address] [place] [address], [place] [address] Aug, [facility] [address] [id number] [address] [place] [address], [place] [address] Aug, [facility] [address] [id number] [address] [place] [address], [place] [address] Aug, [facility] [address] [id number] [address] [place] [address], [place] [address] Jul, [facility] [address] [id number] [address] [place] [address], [place] [address] Jul, [facility] [address] [id number] [address] [place] [address], [place] [address] Jul, [facility] [address] [id number] [address] [place] [address], [place] [address] Jul, [facility] [address] [id number] [address] [place] [address], [place] [address] Jul, [facility] [address] [id number] [address] [place] [address], [place] [address] Jul, [facility] [address] [id number] [address] [place] [address], [place] [address] Jul, [facility] [address] [id number] [address] [place] [address], [place] [address] Jul, [facility] [place] [facility] [address] [id number] [address] [place] [address], [place] [address] Jul, [facility] [place] [facility] [address] [id number] [address] [place] [address], [place] [address] Jun, [facility] [place] [facility] [address] [id number] [address] [place] [address], [place] [address] Jun, [facility] [place] [facility] [address] [id number] [address] [place] [address], [place] [address] Jun, [facility] [place] [facility] [address] [id number] [address] [place] [address], [place] [address] Jun, [facility] [place] [facility] [address] [id number] [address] [place] [address], [place] [address] Jun, [facility] [place] [facility] [address] [id number] [address] [place] [address], [place] [address] Jun, [facility] [place] [facility] [address] [id number] [address] [place] [address], [place] [address] Jun, [facility] [place] [facility] [address] [id number] [address] [place] [address], [place] [address] Jun, [facility] [place] [facility] [address] [id number] [address] [place] [address], [place] [address] May, [facility] [place] [facility] [address] [id number] [address] [place] [address], [place] [address] May, [facility] [place] [facility] [address] [id number] [address] [place] [address], [place] [address] May, [facility] [place] [facility] [address] [id number] [address] [place] [address], [place] [address] May, [facility] [place] [facility] [address] [id number] [address] [place] [address], [place] [address] May, [facility] [place] [facility] [address] [id number] [address] [place] [address], [place] [address] Apr, [facility] [place] [facility] [address] [id number] [address] [place] [address], [place] [address] Apr, 2013 [facility] [place] [facility] [address] [id number] [facility] [place] [address] Apr, 2013 [facility] [place] [facility] [address] [id number] [facility] [place] [address] Apr, [facility] [place] [facility] [address] [id number] [address] [place] [address], [place] [address] Apr, 2013 [facility] [place] [facility] [address] [id number] [address] [place] [address], [place] [address] Apr, 2013 [facility] [place] [facility] [address] [id number] [address] [place] [address], [place] [address] Apr, [facility] [place] [facility] [address] [id number] [address] [place] [address], [place] [address] Apr, [facility] [place] [facility] [address] [id number] [address] [place] [address], [place] [address] Apr, [facility] [place] [facility] [address] [id number] [address] [place] [address], [place] [address] Apr, [facility] [place] [facility] [address] [id number] [address] [place] [address], [place] [address] Mar, [facility] [place] [facility] [address] [id number] [address] [place] [address], [place] [address] Mar, [facility] [place] [facility] [address] [id number] [address] [place] [address], [place] [address] Mar, [facility] [place] [facility] [address] [id number] [address] [place] [address], [place] [address] Mar, [facility] [place] [facility] [address] [id number] [address] [place] [address], [place] [address] Mar, [facility] [place] [facility] [address] [id number] [address] [place] [address], [place] [address] Mar, [facility] [place] [facility] [address] [id number] [address] [place] [address], [place] [address] Feb, [facility] [place] [facility] [address] [id number] [address] [place] [address], [place] [address] Feb, [facility] [address] [id number] [address] [place] [address], [place] [address] Jan, [facility] [address] [id number] [address] [place] [address], [place] [address] Jan, [facility] [address] [id number] [address] [place] [address], [place] [address] Jan, [facility] [address] [id number] [address] [place] [address], [place] [address] Jan, [facility] [address] [id number] [address] [place] [address], [place] [address] December, [facility] [address] [id number] [address] [place] [address], [place] [address] December, [facility] [address] [id number] [address] [place] [address], [place] [address] December, [facility] [address] [id number] [address] [place] [address], [place] [address] December, [facility] [address] [id number] [address] [place] [address], [place] [address] December, [facility] [address] [id number] [address] [place] [address], [place] [address] December, [facility] [address] [id number] [address] [place] [address], [place] [address] December, [facility] [address] [id number] [address] [place] [address], [place] [address] December, [facility] [address] [id number] [address] [place] [address], [place] [address] December, [facility] [address] [id number] [address] [place] [address], [place] [address] Nov, [facility] [address] [id number] [address] [place] [address], [place] [address] Nov, [facility] [address] [id number] [address] [place] [address], [place] [address] Nov, [facility] [address] [id number] [address] [place] [address], [place] [address] Nov, [facility] [address] [id number] [address] [place] [address], [place] [address] Nov, [facility] [address] [id number] [address] [place] [address], [place] [address] Nov, [facility] [address] [id number] [address] [place] [address], [place] [address] Nov, [facility] [address] [id number] [address] [place] [address], [place] [address] Nov, [facility] [address] [id number] [address] [place] [address], [place] [address] Nov, [facility] [address] [id number] [address] [place] [address], [place] [address] Nov, [facility] [address] [id number] [address] [place] [address], [place] [address] Oct, [facility] [address] [id number] [address] [place] [address], [place] [address] Oct, [facility] [address] [id number] [address] [place] [address], [place] [address] Sep, [facility] [address] [id number] [address] [place] [address], [place] [address] Sep, [facility] [address] [id number] [address] [place] [address], [place] [address] Aug, [facility] [address] [id number] [address] [place] [address], [place] [address] Aug, [facility] [address] [id number] [address] [place] [address], [place] [address] Aug, [facility] [address] [address] [id number] [address] [place] [id number] Aug, [facility] [address] [id number] [address] [place] [address], [place] [address] Jul, [facility] [address] [id number] [address] [place] [address], [place] [address] Jul, [facility] [address] [id number] [address] [place] [address], [place] [address] Jul, [facility] [address] [id number] [address] [place] [address], [place] [address] Jul, [facility] [address] [id number] [address] [place] [address], [place] [address] Jun, [facility] [address] [id number] [address] [place] [address], [place] [address] Jun, [facility] [address] [id number] [address] [place] [address], [place] [address] May, [facility] [address] [id number] [address] [place] [address], [place] [address] May, [facility] [address] [id number] [address] [place] [address], [place] [address] May, [facility] [address] [id number] [address] [place] [address], [place] [address] May, [facility] [address] [id number] [address] [place] [address], [place] [address] May, [facility] [address] [id number] [address] [place] [id number] May, [facility] [address] [id number] [address] [place] [address], [place] [address] 30 Apr, 2013 [facility] [address] [id number] [address] [place] [address], [place] [address] 23 Apr, 2013 [facility] [address] [id number] [address] [place] [address], [place] [address] 03 Apr, 2013 [facility] [address] [id number] [address] [place] [address], [place] [address] 11 Feb, 2013 [facility] [address] [id number] [address] [place] [address], [place] [address] Jan, [facility] [address] [id number] [address] [place] [address], [place] [address] 18 Jan, 2013 [facility] [address] [id number] [address] [place] [address], [place] [address] Jan, [facility] [address] [id number] [address] [place] [address], [place] [address] 14 Jan, 2013 [facility] [address] [id number] [address] [place] [address], [place] [address] December, [facility] [address] [id number] [address] [place] [address], [place] [address] December, [facility] [address] [id number] [address] [place] [address], [place] [address] 24 Nov, 2012 [facility] [address] [id number] [address] [place] [address], [place] [address] Nov, [facility] [address] [id number] [address] [place] [address], [place] [address] Nov, [facility] [address] [id number] [address] [place] [address], [place] [address] Nov, [facility] [address] [id number] [address] [place] [address], [place] [address] Nov, [facility] [address] [id number] [address] [place] [address], [place] [address] Nov, [facility] [address] [id number] [address] [place] [address], [place] [address] Nov, [facility] [address] [id number] [address] [place] [address], [place] [address] Oct, [facility] [address] [id number] [address] [place] [address], [place] [address] Oct, [facility] [address] [id number] [facility] [place] [address] 14 Oct, 2012 [facility] [address] [id number] [address] [place] [address], [place] [address] 13 Oct, 2012 [facility] [address] [id number] [address] [place] [address], [place] [address] 12 Oct, 2012 [facility] [address] [id number] [address] [place] [address], [place] [address] 11 Oct, 2012 [facility] [address] [id number] [address] [place] [address], [place] [address] 08 Oct, 2012 [facility] [address] [id number] [address] [place] [address], [place] [address] 20 Sep, 2012 [facility] [address] [id number] [address] [place] [address], [place] [address] Sep, [facility] [address] [id number] [address] [place] [address], [place] [address] Aug, [facility] [address] [id number] [address] [place] [address], [place] [address] Aug, [facility] [address] [id number] [address] [place] [address], [place] [address] Jul, [facility] [address] [id number] [address] [place] [address], [place] [address] Jul, [facility] [address] [id number] [address] [place] [address], [place] [address] Jul, [facility] [address] [id number] [address] [place] [address], [place] [address] Jul, [facility] [address] [id number] [address] [place] [address], [place] [address] Jul, [facility] [address] [id number] [address] [place] [address], [place] [address] Jul, [facility] [address] [id number] [address] [place] [id number] Jul, [facility] [address] [facility] [id number] [address] [place] [address] Jul, [facility] [address] [facility] [id number] [address] [place] [id number] Jun, [facility] [address] [facility] [id number] [address] [place] [id number] Jun, IMMUNIZATIONS No Known Immunizations SOCIAL HISTORY Never Assessed REASON FOR VISIT [facility] [place] VITAL SIGNS MEDICATIONS Unknown [...] -- total 11/2012 Hospitalization History ER- in [place] due to left knee 8
--- OUTSIDE RECORDS SUMMARY | 2020-02-11 03:20 | XMS REPORT ---
Author Author АНДРЕЙ Madelineshawn LEONG Organization [facility] Address [address] [place] [address] Care Team Providers Care Inspector Hairspring Truing Name Role Phone KWESIKennedy DANG Unavailable PROBLEMS Type Condition ICD9-CM Code [id number] Code Onset Dates Condition S tatus SNOMED Code Problem Pre-diabetes R73.09 Active 9699536 02 Problem Chronic pain G89.29 Active 7347670 1 Problem GERD (gastroesophageal reflux disease) K21.9 Active 225892882 Problem Essential hypertension I10 Active 52007445 Problem Primary insomnia F51.01 Active 397 2004 Problem Numbness and tingling in hands R20.2 Active 177928240 Problem History of abnormal cervical Pap smear Z87.898 Active 069932611 Problem Stasis dermatitis of both legs I87.2 Active 37042563 Problem BMI 45.0-49.9, adult Z68.42 Active [id number] ALLERGIES No Information ENCOUNTERS Encounter Location Date Diagnosis [place] [address] [place] [id number] [address] [place] [address] Jan, [place] [address] [place] [id number] [address] [place] [address] Jan, Chronic pain G89.29 and BMI 45.0-49.9, adult Z68.42 [facility] [address] [facility] [id number] [address] [place] [address] Jan, [place] [address] [place] [id number] [address] [place] [address] December, Chronic pain G89.29 and BMI 45.0-49.9, adult Z68.42 [facility] [address] [facility] [id number] [address] [place] [address] Nov, Morbid obesity E66.01 and Ce llulitis of leg, left L03.116 [facility] [address] [facility] [id number] [address] [place] [address] 15 Nov, 2018 Cellulitis of left lower ext remity L03.116 and Morbid obesity E66.01 [facility] [address] [facility] [id number] [address] [place] [address] 13 Nov, 2018 [facility] [address] [place] [id number] [place] [address] 12 Nov, 2018 Morbid obesity E66.01 and Ce llulitis of left lower extremity L03.116 [place] [address] [facility] [id number] [address] [place] [address] Nov, Chronic pain G89.29 and BMI 45.0-49.9, adult Z68.42 [place] [address] [place] [id number] [address] [place] [address] Oct, BMI 45.0-49.9, adult Z68.42 and Chronic pain G89.29 [place] [address] [place] [id number] [address] [place] [address] 14 Sep, 2018 BMI 45.0-49.9, adult Z68.42 and Chronic pain G89.29 [place] [address] [place] [id number] [address] [place] [address] 05 Sep, 2018 BMI 45.0-49.9, adult Z68.42 and Essential hypertension I10 [facility] [address] [place] [id number] [address] [place] [address] Aug, BMI 45.0-49.9, adult Z68.42 ; Chronic pain G89.29 ; Essential hypertension I10 and Primary insomnia F51.01 [place] [address] [place] [id number] [address] [place] [address] Aug, Chronic pain G89.29 [place] [address] [place] [id number] [address] [place] [address] Jul, Chronic pain G89.29 [facility] [address] [id number] [address] [place] [address] Jun, Chronic pain G89.29 [facility] [address] [id number] [address] [place] [address] May, Chronic pain G89.29 [facility] [address] [facility] [id number] [address] [place] [address] May, BMI 40.0-44.9, adult Z68.41 ; Other chronic pain G89.29 ; Pain in right hip M25.551 and Acute pain of left knee M25.562 [facility] [address] [id number] [address] [place] [address] May, Chronic pain G89.29 [facility] [address] [facility] [id number] [address] [place] [address] Apr, Chronic pain G89.29 [facility] [address] [facility] [id number] [address] [place] [address] Mar, Poison josep L23.7 [facility] [address] [facility] [id number] [address] [place] [address] Mar, Chronic pain G89.29 [facility] [address] [facility] [id number] [address] [place] [address] Feb, Chronic pain G89.29 [facility] [address] [facility] [id number] [address] [place] [address] Feb, Poison josep L23.7 [facility] [address] [facility] [id number] [address] [place] [address] Jan, Chronic pain G89.29 [facility] [address] [facility] [id number] [address] [place] [address] December, Chronic pain G89.29 [facility] [address] [facility] [id number] [address] [place] [address] Nov, Long-term use of high-risk m edication Z79.899 [facility] [address] [place] [id number] [address] [place] [address] Nov, Chronic pain G89.29 [place] [address] [place] [id number] [place] [address] Oct, Chronic pain G89.29 ; Pre-di abetes R73.09 ; Long-term use of high- risk medication Z79.899 ; Allergic rhinitis, unspecified seasonality, unspecified trigger J30.9 ; BMI 45.0-49.9, adult Z68.42 and Essential hypertension I10 [place] [address] [place] [id number] [place] [address] Oct, Chronic pain G89.29 [place] [address] [place] [id number] [place] [address] Sep, Chronic pain G89.29 [place] [address] [address] Aug, Chronic pain G89.29 [place] [address] [address] Jul, [place] [address] [address] Jul, [place] [address] [address] Jun, Chronic pain G89.29 ; BMI 45 .0-49.9, adult Z68.42 ; Pre-diabetes R73.09 ; Essential hypertension I10 ; GERD (gastroesophageal reflux disease) K21.9 ; Yeast dermatitis B37.2 ; Dysuria R30.0 ; Acute non-recurrent maxillary sinusitis J01.00 and Acute cystitis with hematuria N30.01 [place] [address] [place] [id number] [address] [place] [address] 13 Jun, 2017 Chronic pain G89.29 [place] [address] [address] Jun, Acute non-recurrent maxillar y sinusitis J01.00 and BMI 45.0-49.9, adult Z68.42 [place] [address] [place] [id number] [address] [place] [address] May, [place] [address] [facility] [id number] [address] [place] [address] May, Chronic pain G89.29 [place] [address] [place] [id number] [address] [place] [address] May, [place] [address] [place] [id number] [address] [place] [address] Apr, Chronic pain G89.29 [place] [address] [place] [id number] [address] [place] [address] Mar, [place] [address] [place] [id number] [address] [place] [address] Mar, Essential hypertension I10 a nd Pre-diabetes R73.09 [place] [address] [place] [id number] [address] [place] [address] Mar, Chronic pain G89.29 ; Essent ial hypertension I10 ; Depressive disorder, not elsewhere classified F32.9 ; GERD (gastroesophageal reflux disease) K21.9 ; Pre-diabetes R73.09 ; Stasis dermatitis of both legs I87.2 and Acute non-recurrent maxillary sinusitis J01.00 [place] [id number] [place] [address] Mar, Chronic pain G89.29 [place] [address] [place] [id number] [address] [place] [address] Mar, Achilles tendinitis of right lower extremity M76.61 and Tinea corporis B35.4 [place] [address] [place] [id number] [address] [place] [address] 17 Feb, 2017 Yeast dermatitis B37.2 [place] [id number] [place] [address] Feb, Candidal intertrigo B37.2 an d Acute right ankle pain M25.571 [place] [address] [facility] [id number] [address] [place] [address] Feb, Chronic pain G89.29 [place] [address] [facility] [id number] [address] [place] [address] Jan, [place] [address] [facility] [id number] [address] [place] [address] Jan, Chronic pain G89.29 [place] [address] [facility] [id number] [address] [place] [address] December, Chronic pain G89.29 ; Essent ial hypertension I10 ; Depressive disorder, not elsewhere classified F32.9 ; GERD (gastroesophageal reflux disease) K21.9 ; Pre-diabetes R73.09 ; Screening breast examination Z12.39 ; Stasis dermatitis of both legs I87.2 and Yeast dermatitis B37.2 [place] [address] [facility] [id number] [address] [place] [address] Nov, Chronic pain G89.29 [place] [address] [facility] [id number] [address] [place] [address] Nov, Cellulitis of left lower ext remity L03.116 [place] [address] [place] [id number] [address] [place] [address] Nov, Cellulitis of left lower ext remity L03.116 [place] [address] [facility] [id number] [address] [place] [address] Oct, Yeast dermatitis B37.2 [place] [address] [facility] [id number] [address] [place] [address] Oct, Chronic pain G89.29 [place] [address] [facility] [id number] [address] [place] [address] Sep, Chronic pain G89.29 ; Essent ial hypertension I10 ; Depressive disorder, not elsewhere classified F32.9 and GERD (gastroesophageal reflux disease) K21.9 [facility] [address] [address] Aug, Chronic pain G89.29 [place] [address] [address] Aug, Cough R05 ; Rash R21 and Vinay h and nonspecific skin eruption R21 [place] [address] [address] Jul, Chronic pain G89.29 [place] [address] [address] Jun, Chronic pain G89.29 ; Bronch itis J40 ; Essential hypertension I10 ; Depressive disorder, not elsewhere classified F32.9 ; GERD (gastroesophageal reflux disease) K21.9 and History of long-term use of multiple prescription drugs Z92.29 [place] [address] [address] Jun, Bronchitis J40 ; Chills R68. 83 and Sore throat J02.9 [place] [address] [address] May, [place] [address] [address] Apr, [facility] [address] [address] Apr, Acute mucoid otitis media of both ears H65.113 [place] [address] [address] Apr, Yeast dermatitis B37.2 and H ematuria R31.9 [place] [address] [address] Mar, [place] [address] [address] Mar, [place] [address] [address] Feb, Left anterior knee pain M25. [address] [address] Feb, Chronic pain G89.29 ; Essent ial hypertension I10 ; Depressive disorder, not elsewhere classified F32.9 ; GERD (gastroesophageal reflux disease) K21.9 and History of long-term use of multiple prescription drugs Z92.29 [place] [address] [address] Jan, [address] [address] Jan, Well woman exam Z01.419 ; BM I 45.0-49.9, adult Z68.42 ; Family history of diabetes mellitus Z83.3 and Chronic pain G89.[address] [address] December, Chronic pain G89.29 ; Essent ial hypertension I10 ; Depressive disorder, not elsewhere classified F32.9 ; GERD (gastroesophageal reflux disease) K21.9 ; 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 ; History of long-term use of multiple prescription drugs Z92.29 and Obesity E66.[address] [address] Oct, [place] [address] [address] Oct, Well woman exam Z01.419 ; BM [...] smear Z12.4 and No natural teeth K00.0 [place] [address] [place] [id number] [address] [place] [address] Oct, [place] [address] [address] Sep, Chronic pain G89.29 ; Essent ial hypertension I10 ; GERD (gastroesophageal reflux disease) K21.9 ; 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 ; Skin infection L08.9 and History of long-term use of multiple prescription drugs Z92.29 [place] [address] [address] Aug, [address] [address] Jul, [place] [address] [address] Jul, [address] [address] Jul, Upper respiratory infection J06.[address] [address] Jul, Depressive disorder, not els ewhere classified F32.[address] [address] Jul, Chronic pain 338.[address] [address] Jul, Chronic pain G89.29 [place] [address] [place] [id number] [address] [place] [address] 16 Jun, 2015 Poison josep L23.[address] [address] Jun, Allergic contact dermatitis due to plants, except food L23.7 [place] [id number] [address] [place] [address] Jun, Essential hypertension I10 ; Chronic pain G89.29 ; GERD (gastroesophageal reflux disease) K21.9 and Numbness and tingling in hands R20.2 [place] [address] [address] May, [place] [address] [address] Apr, [place] [address] [address] Mar, [place] [address] [address] Feb, Abdominal pain, left lateral 789.09 and Constipation 564.00 [place] [address] [address] Feb, Depressive disorder, not els ewhere classified 311 and No condition on [place] II V71.09 [place] [address] [address] Feb, Spider bite 989.5 and Depres homar 311 [place] [address] [address] Feb, [place] [address] [address] Feb, Chronic pain 338.29 ; Arthro zonia 716.90 and GERD (gastroesophageal reflux disease) 530.81 [place] [address] [address] Jan, Insect bites 919.4 [place] [address] [address] Jan, [place] [address] [address] December, Skin infection, bacterial 68 6.9 ; Conjunctivitis 372.30 and Insect bites 919.4 [place] [address] [address] December, Chronic pain 338.29 ; Arthro zonia 716.90 ; Skin infection, bacterial 686.9 and Conjunctivitis 372.30 [facility] [address] [id number] [address] [place] [address] December, [facility] [address] [id number] [address] [place] [address] Nov, [facility] [address] [id number] [address] [place] [address] Nov, [facility] [address] [id number] [address] [place] [address] Oct, [facility] [address] [id number] [address] [place] [address] Oct, [facility] [address] [id number] [address] [place] [address] Sep, [facility] [address] [id number] [address] [place] [address] Sep, [facility] [address] [id number] [address] [place] [address] Aug, [facility] [address] [id number] [address] [place] [address] Aug, [facility] [address] [id number] [address] [place] [address] Aug, [facility] [address] [id number] [address] [place] [address] Aug, [facility] [address] [id number] [address] [place] [address] Jul, [facility] [address] [id number] [address] [place] [address] Jul, [facility] [address] [id number] [address] [place] [address] Jul, [facility] [address] [id number] [address] [place] [address] 15 Jul, 2014 [facility] [address] [id number] [address] [place] [address], [place] [address] 15 Jul, 2014 [facility] [address] [id number] [address] [place] [address], [place] [address] 15 Jul, 2014 [facility] [address] [id number] [address] [place] [address], [place] [address] 15 Jul, 2014 [facility] [address] [id number] [address] [place] [address], [place] [address] 12 Jul, 2014 [facility] [address] [id number] [address] [place] [address], [place] [address] 12 Jul, 2014 [facility] [address] [id number] [address] [place] [address], [place] [address] Jun, [facility] [address] [id number] [address] [place] [address], [place] [address] Jun, [facility] [address] [id number] [address] [place] [address], [place] [address] Jun, [facility] [address] [id number] [address] [place] [address], [place] [address] Jun, [facility] [address] [id number] [address] [place] [address], [place] [address] Jun, [facility] [address] [id number] [address] [place] [address], [place] [address] Jun, [facility] [address] [id number] [address] [place] [address] Jun, [facility] [address] [id number] [address] [place] [address], [place] [address] Jun, [facility] [address] [id number] [address] [place] [address], [place] [address] May, [facility] [address] [id number] [address] [place] [address], [place] [address] May, [facility] [address] [id number] [address] [place] [address], [place] [address] 16 May, 2014 [facility] [address] [id number] [address] [place] [address], [place] [address] May, [facility] [address] [id number] [address] [place] [address], [place] [address] May, [facility] [address] [id number] [address] [place] [address], [place] [address] Apr, 2013 [facility] [address] [id number] [address] [place] [address], [place] [address] Apr, 2013 [facility] [address] [id number] [address] [place] [address], [place] [address] Apr, [facility] [address] [id number] [address] [place] [address], [place] [address] Apr, 2013 [facility] [address] [id number] [address] [place] [address], [place] [address] Apr, 2013 [facility] [address] [id number] [address] [place] [address], [place] [address] Apr, [facility] [address] [id number] [address] [place] [address], [place] [address] Apr, [facility] [address] [id number] [address] [place] [address], [place] [address] Apr, [facility] [address] [id number] [address] [place] [address], [place] [address] Apr, [facility] [address] [id number] [address] [place] [address], [place] [address] Apr, [facility] [address] [id number] [address] [place] [address], [place] [address] Mar, [facility] [address] [id number] [address] [place] [address], [place] [address] Mar, [facility] [address] [id number] [address] [place] [address], [place] [address] Mar, [facility] [address] [id number] [facility] [place] [address] Mar, [facility] [address] [id number] [address] [place] [address], [place] [address] Mar, [facility] [address] [id number] [address] [place] [address], [place] [address] Mar, [facility] [address] [id number] [address] [place] [address], [place] [address] Feb, [facility] [address] [id number] [address] [place] [address], [place] [address] Feb, [facility] [address] [id number] [address] [place] [address], [place] [address] Jan, [facility] [address] [id number] [address] [place] [address], [place] [address] Jan, [facility] [address] [id number] [address] [place] [address], [place] [address] Jan, [facility] [address] [id number] [address] [place] [address], [place] [address] Jan, [facility] [address] [id number] [address] [place] [address], [place] [address] December, [facility] [address] [id number] [address] [place] [address], [place] [address] December, [facility] [address] [id number] [address] [place] [address], [place] [address] December, [facility] [address] [id number] [address] [place] [address], [place] [address] December, [facility] [address] [id number] [address] [place] [address], [place] [address] December, [facility] [address] [id number] [address] [place] [address], [place] [address] December, [facility] [address] [id number] [address] [place] [address], [place] [address] December, [facility] [address] [id number] [address] [place] [address], [place] [address] December, [facility] [address] [id number] [address] [place] [address], [place] [address] December, [facility] [address] [id number] [address] [place] [address], [place] [address] Nov, [facility] [address] [id number] [address] [place] [address], [place] [address] Nov, [facility] [address] [id number] [address] [place] [address], [place] [address] Nov, [facility] [address] [id number] [address] [place] [address], [place] [address] Nov, [facility] [address] [id number] [address] [place] [address], [place] [address] Nov, [facility] [address] [id number] [address] [place] [address], [place] [address] Nov, [facility] [address] [id number] [address] [place] [address], [place] [address] Nov, [facility] [address] [id number] [address] [place] [address], [place] [address] Nov, [facility] [address] [id number] [address] [place] [address], [place] [address] Nov, [facility] [address] [id number] [address] [place] [address], [place] [address] Nov, [facility] [address] [id number] [address] [place] [address], [place] [address] Oct, [facility] [address] [id number] [address] [place] [address], [place] [address] Oct, [facility] [address] [id number] [address] [place] [address], [place] [address] Sep, [facility] [address] [id number] [address] [place] [address], [place] [address] Sep, [facility] [address] [id number] [address] [place] [address], [place] [address] Aug, [facility] [facility] [address] [id number] [address] [place] [address], [place] [address] Aug, [facility] [address] [id number] [address] [place] [address], [place] [address] Aug, [facility] [address] [id number] [address] [place] [address], [place] [address] Aug, [facility] [address] [id number] [address] [place] [address], [place] [address] Jul, [facility] [address] [id number] [address] [place] [address], [place] [address] Jul, [facility] [address] [id number] [address] [place] [address], [place] [address] Jul, [facility] [address] [id number] [address] [place] [address], [place] [address] Jul, [facility] [address] [id number] [address] [place] [address], [place] [address] Jun, [facility] [address] [id number] [address] [place] [address], [place] [address] Jun, [facility] [address] [id number] [address] [place] [address], [place] [address] May, [facility] [address] [id number] [address] [place] [address], [place] [address] May, [facility] [address] [id number] [address] [place] [address], [place] [address] May, [facility] [address] [id number] [address] [place] [address], [place] [address] May, [facility] [address] [id number] [address] [place] [address], [place] [address] May, [facility] [address] [id number] [address] [place] [address], [place] [address] May, [facility] [address] [id number] [address] [place] [address], [place] [address] 30 Apr, 2013 [facility] [address] [id number] [address] [place] [address], [place] [address] Apr, [facility] [address] [id number] [address] [place] [address], [place] [address] Apr, [facility] [address] [id number] [address] [place] [address], [place] [address] Feb, [facility] [address] [id number] [address] [place] [address], [place] [address] Jan, [facility] [address] [id number] [address] [place] [address], [place] [address] Jan, [facility] [address] [id number] [address] [place] [address], [place] [address] Jan, [facility] [address] [id number] [address] [place] [address], [place] [address] Jan, [facility] [address] [id number] [address] [place] [address], [place] [address] December, [facility] [address] [id number] [address] [place] [address], [place] [address] December, [facility] [address] [id number] [address] [place] [address], [place] [address] 24 Nov, 2012 [facility] [address] [id number] [address] [place] [address], [place] [address] Nov, [facility] [address] [id number] [address] [place] [address], [place] [address] Nov, [facility] [address] [id number] [address] [place] [address], [place] [address] Nov, [facility] [address] [id number] [address] [place] [address], [place] [address] 08 Nov, 2012 [facility] [address] [id number] [address] [place] [address], [place] [address] 08 Nov, 2012 [facility] [address] [id number] [address] [place] [address], [place] [address] 03 Nov, 2012 [facility] [address] [id number] [address] [place] [address], [place] [address] 27 Oct, 2012 [facility] [address] [id number] [address] [place] [address], [place] [address] 18 Oct, 2012 [facility] [address] [id number] [address] [place] [address], [place] [address] 14 Oct, 2012 [facility] [address] [id number] [address] [place] [address], [place] [address] 13 Oct, 2012 [facility] [address] [id number] [address] [place] [address], [place] [address] 12 Oct, 2012 [facility] [address] [id number] [address] [place] [address], [place] [address] 11 Oct, 2012 [facility] [address] [id number] [address] [place] [address], [place] [address] 08 Oct, 2012 [facility] [address] [id number] [address] [place] [address], [place] [address] 20 Sep, 2012 [facility] [address] [id number] [address] [place] [address], [place] [address] Sep, [facility] [address] [id number] [address] [place] [address], [place] [address] Aug, [facility] [address] [id number] [address] [place] [address], [place] [address] Aug, [facility] [address] [id number] [address] [place] [address], [place] [address] Jul, [facility] [address] [id number] [address] [place] [address], [place] [address] Jul, [facility] [address] [id number] [address] [place] [address] Jul, [facility] [address] [id number] [address] [place] [address] Jul, [facility] [address] [id number] [address] [place] [id number] Jul, [facility] [address] [id number] [address] [place] [address] Jul, [facility] [address] [id number] [address] [place] [address] Jul, [facility] [address] [id number] [address] [place] [address] Jul, [facility] [address] [facility] [id number] [address] [place] [address] Jun, [facility] [address] [id number] [address] [place] [id number] Jun, IMMUNIZATIONS No Known Immunizations SOCIAL HISTORY Never Assessed REASON FOR VISIT PLAN OF CARE VITAL SIGNS Height 62 in 2014-09-15 Temperature 98 degrees Fahrenheit 2014-09-15 Heart Rate 86 bpm 2014-09-15 Respiratory Rate 22 2014-09-15 Blood pressure systolic 126 mmHg 2014-09-15 Blood pressure diastolic 78 mmHg 2014-09-15 MEDICATIONS Unknown Medications RESULTS No Results PROCEDURES [...] -- total 11/2012 Hospitalization History ER- in [place] due to left knee 8
--- OUTSIDE RECORDS SUMMARY | 2020-02-11 03:21 | XMS REPORT ---
Author Author Madeline Magdaleno Doctor Organization [facility] Address Unknown Phone Unavailable Care Team Providers Care Nut Tightener Name Role Phone Migration, Doctor Unavailable Unavailable PROBLEMS Type Condition ICD9-CM Code MBB65-UT Code Onset Dates Condition S tatus SNOMED Code Problem Pre-diabetes R73.09 Active 6405218 02 Problem Chronic pain G89.29 Active 0533718 1 Problem GERD (gastroesophageal reflux disease) K21.9 Active 545738698 Problem Essential hypertension I10 Active 37117167 Problem Primary insomnia F51.01 Active 397 2004 Problem Numbness and tingling in hands R20.2 Active 462366392 Problem History of abnormal cervical Pap smear Z87.898 Active 305006551 Problem Stasis dermatitis of both legs I87.2 Active 50193102 Problem BMI 45.0-49.9, adult Z68.42 Active [id number] ALLERGIES No Information ENCOUNTERS Encounter Location Date Diagnosis [facility] [id number] [place] [address] 24 Nov, 2018 [facility] [address] [facility] [id number] [address] [place] [phone] 13 Nov, 2018 [facility] [address] [place] [id number] [address] [place] [address] 12 Nov, 2018 Morbid obesity E66.01 and Ce llulitis of left lower extremity L03.116 [facility] [address] [facility] [id number] [address] [place] [address] Nov, [facility] [address] [place] [id number] [address] [place] [phone] 18 Oct, 2018 BMI 45.0-49.9, adult Z68.42 and Chronic pain G89.29 [facility] [address] [place] [id number] [address] [place] [phone] 14 Sep, 2018 BMI 45.0-49.9, adult Z68.42 and Chronic pain G89.29 [facility] [address] [facility] [id number] [address] [place] [address] Sep, BMI 45.0-49.9, adult Z68.42 and Essential hypertension I10 [facility] [address] [facility] [id number] [address] [place] [address] Aug, BMI 45.0-49.9, adult Z68.42 ; Chronic pain G89.29 ; Essential hypertension I10 and Primary insomnia F51.01 [facility] [address] [facility] [id number] [address] [place] [address] Aug, Chronic pain G89.29 [facility] [address] [facility] [id number] [address] [place] [address] Jul, Chronic pain G89.29 [facility] [address] [facility] [id number] [address] [place] [address] Jun, Chronic pain G89.29 [facility] [address] [facility] [id number] [address] [place] [address] May, Chronic pain G89.29 [facility] [address] [facility] [id number] [address] [place] [address] May, BMI 40.0-44.9, adult Z68.41 ; Other chronic pain G89.29 ; Pain in right hip M25.551 and Acute pain of left knee M25.562 [facility] [address] [facility] [id number] [address] [place] [address] May, Chronic pain G89.29 [facility] [address] [facility] [id number] [address] [place] [address] Apr, Chronic pain G89.29 [facility] [address] [facility] [id number] [address] [place] [address] Mar, Poison josep L23.7 [facility] [address] [facility] [id number] [address] [place] [address] Mar, Chronic pain G89.29 [facility] [address] [facility] [id number] [address] [place] [address] Feb, Chronic pain G89.29 [facility] [address] [facility] [id number] [address] [place] [address] Feb, Poison josep L23.7 [facility] [address] [facility] [id number] [address] [place] [address] Jan, Chronic pain G89.29 [facility] [address] [facility] [id number] [address] [place] [address] December, Chronic pain G89.29 [facility] [address] [facility] [id number] [address] [place] [address] Nov, Long-term use of high-risk m edication Z79.899 [facility] [address] [facility] [id number] [address] [place] [address] Nov, Chronic pain G89.29 [facility] [address] [facility] [id number] [address] [place] [address] Oct, Chronic pain G89.29 ; Pre-di abetes R73.09 ; Long-term use of high- risk medication Z79.899 ; Allergic rhinitis, unspecified seasonality, unspecified trigger J30.9 ; BMI 45.0-49.9, adult Z68.42 and Essential hypertension I10 [facility] [address] [facility] [id number] [address] [place] [address] Oct, Chronic pain G89.29 [facility] [address] [facility] [id number] [address] [place] [address] Sep, Chronic pain G89.29 [facility] [address] [facility] [id number] [address] [place] [address] Aug, Chronic pain G89.29 [facility] [address] [facility] [id number] [address] [place] [address] Jul, [place] [address] [facility] [id number] [address] [place] [address] Jul, [facility] [address] [facility] [id number] [address] [place] [address] Jun, Chronic pain G89.29 ; BMI 45 .0-49.9, adult Z68.42 ; Pre-diabetes R73.09 ; Essential hypertension I10 ; GERD (gastroesophageal reflux disease) K21.9 ; Yeast dermatitis B37.2 ; Dysuria R30.0 ; Acute non-recurrent maxillary sinusitis J01.00 and Acute cystitis with hematuria N30.01 [place] [address] [facility] [id number] [address] [place] [address] Jun, Chronic pain G89.29 [place] [address] [facility] [id number] [address] [place] [address] Jun, Acute non-recurrent maxillar y sinusitis J01.00 and BMI 45.0-49.9, adult Z68.42 [place] [id number] [facility] [id number] [address] [place] [address] May, [place] [address] [facility] [id number] [address] [place] [address] May, Chronic pain G89.29 [facility] [address] [facility] [id number] [address] [place] [address] May, [place] [address] [facility] [id number] [address] [place] [address] Apr, Chronic pain G89.29 [facility] [address] [facility] [id number] [address] [place] [address] Mar, [facility] [address] [facility] [id number] [address] [place] [address] Mar, Essential hypertension I10 a nd Pre-diabetes R73.09 [facility] [address] [facility] [id number] [address] [place] [address] Mar, Chronic pain G89.29 ; Essent ial hypertension I10 ; Depressive disorder, not elsewhere classified F32.9 ; GERD (gastroesophageal reflux disease) K21.9 ; Pre-diabetes R73.09 ; Stasis dermatitis of both legs I87.2 and Acute non-recurrent maxillary sinusitis J01.00 [place] [address] [facility] [id number] [address] [place] [address] Mar, Chronic pain G89.29 [place] [address] [facility] [id number] [address] [place] [address] Mar, Achilles tendinitis of right lower extremity M76.61 and Tinea corporis B35.4 [place] [address] [place] [id number] [address] [place] [address] Feb, Yeast dermatitis B37.2 [place] [address] [facility] [id number] [address] [place] [address] Feb, Candidal intertrigo B37.2 an d Acute right ankle pain M25.571 [place] [address] [place] [id number] [address] [place] [address] Feb, Chronic pain G89.29 [place] [address] [place] [id number] [address] [place] [address] Jan, [place] [address] [place] [id number] [address] [place] [address] Jan, Chronic pain G89.29 [place] [address] [place] [id number] [address] [place] [address] December, Chronic pain G89.29 ; Essent ial hypertension I10 ; Depressive disorder, not elsewhere classified F32.9 ; GERD (gastroesophageal reflux disease) K21.9 ; Pre-diabetes R73.09 ; Screening breast examination Z12.39 ; Stasis dermatitis of both legs I87.2 and Yeast dermatitis B37.2 [place] [address] [place] [id number] [address] [place] [address] Nov, Chronic pain G89.29 [place] [address] [address] Nov, Cellulitis of left lower ext remity L03.116 [place] [address] [address] Nov, Cellulitis of left lower ext remity L03.116 [place] [address] [address] Oct, Yeast dermatitis B37.2 [place] [address] [address] Oct, Chronic pain G89.[address] [address] Sep, Chronic pain G89.29 ; Essent ial hypertension I10 ; Depressive disorder, not elsewhere classified F32.9 and GERD (gastroesophageal reflux disease) K21.[address] [address] Aug, Chronic pain G89.[address] [address] Aug, Cough R05 ; Rash R21 and Vinay h and nonspecific skin eruption R21 [address] [address] Jul, Chronic pain G89.[address] [address] Jun, Chronic pain G89.29 ; Bronch itis J40 ; Essential hypertension I10 ; Depressive disorder, not elsewhere classified F32.9 ; GERD (gastroesophageal reflux disease) K21.9 and History of long-term use of multiple prescription drugs Z92.[address] [address] Jun, Bronchitis J40 ; Chills R68. 83 and Sore throat J02.[address] [address] May, [facility] [address] [place] [id number] [address] [place] [address] Apr, [facility] [address] [place] [id number] [address] [place] [address] Apr, Acute mucoid otitis media of both ears H65.113 [place] [address] [address] 07 Apr, 2016 Yeast dermatitis B37.2 and H ematuria R31.9 [place] [address] [address] Mar, [place] [address] [address] Mar, [place] [address] [address] Feb, Left anterior knee pain M25. 562 [place] [address] [place] [id number] [address] [place] [address] Feb, Chronic pain G89.29 ; Essent ial hypertension I10 ; Depressive disorder, not elsewhere classified F32.9 ; GERD (gastroesophageal reflux disease) K21.9 and History of long-term use of multiple prescription drugs Z92.29 [place] [address] [place] [id number] [address] [place] [address] Jan, [place] [address] [address] Jan, Well woman exam Z01.419 ; BM I 45.0-49.9, adult Z68.42 ; Family history of diabetes mellitus Z83.3 and Chronic pain G89.29 [place] [address] [place] [id number] [address] [place] [address] December, Chronic pain G89.29 ; Essent ial hypertension I10 ; Depressive disorder, not elsewhere classified F32.9 ; GERD (gastroesophageal reflux disease) K21.9 ; 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 ; History of long-term use of multiple prescription drugs Z92.29 and Obesity E66.9 [place] [address] [address] Oct, [place] [address] [address] 07 Oct, 2015 Well woman exam Z01.419 [...] smear Z12.4 and No natural teeth K00.0 [place] [address] [address] Oct, [place] [address] [address] Sep, Chronic pain G89.29 ; Essent ial hypertension I10 ; GERD (gastroesophageal reflux disease) K21.9 ; 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 ; Skin infection L08.9 and History of long-term use of multiple prescription drugs Z92.29 [place] [address] [place] [id number] [address] [place] [address] Aug, [place] [address] [address] Jul, [place] [address] [address] Jul, [place] [address] [address] Jul, Upper respiratory infection J06.9 [place] [address] [address] Jul, Depressive disorder, not els ewhere classified F32.9 [facility] [address] [place] [id number] [address] [place] [address] 02 Jul, 2015 Chronic pain 338.29 [facility] [address] [place] [id number] [address] [place] [address] Jul, Chronic pain G89.29 [facility] [address] [place] [id number] [place] [address] 16 Jun, 2015 Poison josep L23.7 [facility] [address] [place] [id number] [place] [address] Jun, Allergic contact dermatitis due to plants, except food L23.7 [place] [address] [place] [id number] [place] [address] Jun, Essential hypertension I10 ; Chronic pain G89.29 ; GERD (gastroesophageal reflux disease) K21.9 and Numbness and tingling in hands R20.2 [place] [address] [address] May, [facility] [address] [address] Apr, [place] [address] [address] Mar, [place] [address] [place] [id number] [place] [address] Feb, Abdominal pain, left lateral 789.09 and Constipation 564.00 [place] [address] [place] [id number] [address] [place] [address] Feb, Depressive disorder, not els ewhere classified 311 and No condition on [place] V71.09 [place] [address] [place] [id number] [place] [address] Feb, Spider bite 989.5 and Depres homar [address] [place] [address] [place] [id number] [place] [address] Feb, [facility] [address] [facility] [id number] [address] [place] [address] Feb, Chronic pain 338.29 ; Arthro zonia 716.90 and GERD (gastroesophageal reflux disease) 530.81 [facility] [address] [facility] [id number] [address] [place] [address] Jan, Insect bites 919.4 [facility] [address] [facility] [id number] [address] [place] [address] Jan, [facility] [address] [facility] [id number] [address] [place] [address] December, Skin infection, bacterial 68 6.9 ; Conjunctivitis 372.30 and Insect bites 919.4 [facility] [address] [facility] [id number] [address] [place] [address] December, Chronic pain 338.29 ; Arthro zonia 716.90 ; Skin infection, bacterial 686.9 and Conjunctivitis 372.30 [facility] [address] [facility] [id number] [address] [place] [address] December, [facility] [address] [facility] [id number] [address] [place] [address] Nov, [facility] [address] [facility] [id number] [address] [place] [address] Nov, [facility] [address] [facility] [id number] [address] [place] [address] Oct, [facility] [address] [facility] [id number] [address] [place] [address] Oct, [facility] [address] [facility] [id number] [address] [place] [address] Sep, [facility] [address] [facility] [id number] [address] [place] [address] Sep, [facility] [address] [facility] [id number] [address] [place] [address] Aug, [facility] [address] [id number] [address] [place] [address], [place] [address] Aug, [facility] [address] [id number] [address] [place] [address], [place] [address] Aug, [facility] [address] [id number] [address] [place] [address], [place] [address] Aug, [facility] [address] [id number] [address] [place] [address], [place] [address] Jul, [facility] [address] [id number] [address] [place] [address], [place] [address] Jul, [facility] [address] [id number] [address] [place] [address], [place] [address] Jul, [facility] [address] [id number] [address] [place] [address], [place] [address] Jul, [facility] [address] [id number] [address] [place] [address], [place] [address] Jul, [facility] [address] [id number] [address] [place] [address], [place] [address] Jul, [facility] [address] [id number] [address] [place] [address], [place] [address] Jul, [facility] [address] [id number] [address] [place] [address], [place] [address] Jul, [facility] [address] [id number] [address] [place] [address], [place] [address] Jul, [facility] [address] [id number] [address] [place] [address], [place] [address] Jun, [facility] [address] [id number] [address] [place] [address], [place] [address] Jun, [facility] [address] [id number] [address] [place] [address], [place] [address] Jun, [facility] [address] [id number] [address] [place] [address], [place] [address] Jun, [facility] [address] [id number] [address] [place] [address], [place] [address] Jun, [facility] [address] [id number] [address] [place] [address], [place] [address] Jun, [facility] [address] [id number] [address] [place] [address], [place] [address] Jun, [facility] [address] [id number] [address] [place] [address], [place] [address] Jun, [facility] [address] [id number] [address] [place] [address], [place] [address] May, [facility] [address] [id number] [address] [place] [address], [place] [address] May, [facility] [address] [id number] [address] [place] [address], [place] [address] May, [facility] [address] [id number] [address] [place] [address], [place] [address] May, [facility] [address] [id number] [address] [place] [address], [place] [address] May, [facility] [address] [id number] [address] [place] [address], [place] [address] Apr, [facility] [address] [id number] [address] [place] [address], [place] [address] 26 Apr, 2014 [facility] [address] [id number] [address] [place] [address], [place] [address] 25 Apr, 2014 [facility] [address] [id number] [address] [place] [address], [place] [address] 25 Apr, 2014 [facility] [address] [id number] [address] [place] [address], [place] [address] 18 Apr, 2014 [facility] [address] [id number] [address] [place] [address], [place] [address] 18 Apr, 2013 [facility] [address] [id number] [facility] [place] [address] 18 Apr, 2013 [facility] [address] [id number] [address] [place] [address], [place] [address] 18 Apr, 2014 [facility] [address] [id number] [address] [place] [address], [place] [address] Apr, [facility] [address] [id number] [address] [place] [address], [place] [address] Apr, [facility] [address] [id number] [address] [place] [address], [place] [address] Mar, [facility] [address] [id number] [address] [place] [address], [place] [address] Mar, [facility] [address] [id number] [address] [place] [address], [place] [address] Mar, [facility] [address] [id number] [address] [place] [address], [place] [address] Mar, [facility] [address] [id number] [address] [place] [address], [place] [address] Mar, [facility] [address] [id number] [address] [place] [address], [place] [address] Mar, [facility] [address] [id number] [address] [place] [address], [place] [address] Feb, [facility] [address] [id number] [address] [place] [address], [place] [address] Feb, [facility] [address] [id number] [address] [place] [address], [place] [address] Jan, [facility] [address] [id number] [address] [place] [address], [place] [address] Jan, [facility] [address] [id number] [address] [place] [address], [place] [address] Jan, [facility] [address] [id number] [address] [place] [address], [place] [address] Jan, [facility] [address] [id number] [address] [place] [address], [place] [address] December, [facility] [address] [id number] [address] [place] [address], [place] [address] December, [facility] [address] [id number] [address] [place] [address], [place] [address] December, [facility] [address] [id number] [address] [place] [address], [place] [address] December, [facility] [address] [id number] [address] [place] [address], [place] [address] December, [facility] [address] [id number] [address] [place] [address], [place] [address] December, [facility] [address] [id number] [address] [place] [address], [place] [address] December, [facility] [address] [id number] [address] [place] [address], [place] [address] December, [facility] [address] [id number] [address] [place] [address], [place] [address] December, [facility] [address] [id number] [address] [place] [address], [place] [address] Nov, [facility] [address] [id number] [address] [place] [address], [place] [address] Nov, [facility] [address] [id number] [address] [place] [address], [place] [address] Nov, [facility] [address] [id number] [address] [place] [address], [place] [address] Nov, [facility] [address] [id number] [address] [place] [address], [place] [address] Nov, [facility] [address] [id number] [address] [place] [address], [place] [address] Nov, [facility] [address] [id number] [address] [place] [address], [place] [address] 08 Nov, 2013 [facility] [address] [id number] [address] [place] [address], [place] [address] Nov, [facility] [address] [id number] [address] [place] [address], [place] [address] Nov, [facility] [address] [id number] [address] [place] [address], [place] [address] Nov, [facility] [address] [id number] [address] [place] [address], [place] [address] Oct, [facility] [address] [id number] [address] [place] [address], [place] [address] Oct, [facility] [address] [id number] [address] [place] [address], [place] [address] Sep, [facility] [address] [id number] [address] [place] [address], [place] [address] Sep, [facility] [address] [id number] [address] [place] [address], [place] [address] Aug, [facility] [address] [id number] [address] [place] [address], [place] [address] Aug, [facility] [address] [id number] [address] [place] [address], [place] [address] Aug, [facility] [address] [id number] [address] [place] [address], [place] [address] Aug, [facility] [address] [id number] [address] [place] [address], [place] [address] Jul, [facility] [address] [id number] [address] [place] [address], [place] [address] Jul, [facility] [address] [id number] [address] [place] [address], [place] [address] Jul, [facility] [address] [id number] [address] [place] [address], [place] [address] Jul, [facility] [address] [id number] [address] [place] [address], [place] [address] Jun, [facility] [address] [id number] [address] [place] [address], [place] [address] Jun, [facility] [address] [id number] [address] [place] [address], [place] [address] May, [facility] [address] [id number] [address] [place] [address], [place] [address] May, [facility] [address] [id number] [address] [place] [address], [place] [address] May, [facility] [address] [id number] [address] [place] [address], [place] [address] May, [facility] [address] [id number] [address] [place] [address], [place] [address] May, [facility] [address] [id number] [address] [place] [address], [place] [address] May, [facility] [address] [id number] [address] [place] [address], [place] [address] 30 Apr, 2013 [facility] [address] [id number] [address] [place] [address], [place] [address] 23 Apr, 2013 [facility] [address] [id number] [address] [place] [address], [place] [address] Apr, [facility] [address] [id number] [address] [place] [address], [place] [address] Feb, [facility] [address] [id number] [address] [place] [address], [place] [address] Jan, [facility] [address] [id number] [address] [place] [address], [place] [address] 18 Jan, 2013 [facility] [address] [id number] [address] [place] [address], [place] [address] 17 Jan, 2013 [facility] [address] [id number] [address] [place] [address], [place] [address] 14 Jan, 2013 [facility] [address] [id number] [facility] [place] [address] December, [facility] [address] [id number] [address] [place] [address], [place] [address] December, [facility] [address] [id number] [address] [place] [address], [place] [address] Nov, [facility] [address] [id number] [address] [place] [address], [place] [address] Nov, [facility] [address] [id number] [address] [place] [address], [place] [address] Nov, [facility] [address] [id number] [address] [place] [address], [place] [address] Nov, [facility] [address] [id number] [address] [place] [address], [place] [address] Nov, [facility] [address] [id number] [address] [place] [address], [place] [address] Nov, [facility] [address] [id number] [address] [place] [address], [place] [address] Nov, [facility] [address] [id number] [address] [place] [address], [place] [address] 27 Oct, 2012 [facility] [address] [id number] [address] [place] [address], [place] [address] 18 Oct, 2012 [facility] [address] [id number] [address] [place] [address], [place] [address] 14 Oct, 2012 [facility] [address] [id number] [address] [place] [address], [place] [address] 13 Oct, 2012 [facility] [address] [id number] [address] [place] [address], [place] [address] 12 Oct, 2012 [facility] [address] [id number] [address] [place] [address], [place] [address] 11 Oct, 2012 [facility] [address] [id number] [address] [place] [address] Oct, [facility] [address] [id number] [address] [place] [address] Sep, [facility] [address] [id number] [address] [place] [address] Sep, [facility] [address] [id number] [address] [place] [address] Aug, [facility] [address] [id number] [address] [place] [address] Aug, [facility] [address] [id number] [address] [place] [address] Jul, [facility] [address] [id number] [address] [place] [address] Jul, [facility] [address] [id number] [address] [place] [address] Jul, [facility] [address] [id number] [address] [place] [address] Jul, [facility] [address] [id number] [address] [place] [phone] Jul, [facility] [address] [id number] [address] [place] [address] Jul, [facility] [address] [id number] [address] [place] [address] Jul, [facility] [address] [id number] [address] [place] [address] Jul, [facility] [address] [id number] [address] [place] [id number] Jun, [facility] [address] [id number] [address] [place] [phone] Jun, IMMUNIZATIONS No Known Immunizations SOCIAL HISTORY Never Assessed REASON FOR VISIT EMR-[facility] [place] PLAN OF CARE VITAL SIGNS MEDICATIONS Unknown [...] -- total 11/2012 Hospitalization History ER- in [place] due to left knee 8
--- OUTSIDE RECORDS SUMMARY | 2020-02-11 03:21 | XMS REPORT ---
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 Name Role Phone JASON MANCUSO Unavailable PROBLEMS Type Condition ICD9-CM Code BDB23-NQ Code Onset Dates Condition S tatus SNOMED Code Problem Chronic pain G89.29 Active 7107166 1 Problem Pre-diabetes R73.09 Active 3152718 02 Problem Essential hypertension I10 Active 96800861 Problem BMI 45.0-49.9, adult Z68.42 Active 569681222 Problem Numbness and tingling in hands R20.2 Active 014739306 Problem GERD (gastroesophageal reflux disease) K21.9 Active 177368550 Problem Stasis dermatitis of both legs I87.2 Active 07435356 Problem History of abnormal cervical Pap smear Z87.898 Active 900815599 ALLERGIES No Information ENCOUNTERS Encounter Location Date Diagnosis [place] [address] [address] Jun, Chronic pain G89.29 [place] [id number] [address] [place] [address] May, Chronic pain G89.29 [place] [address] [address] [place] [id number] [address] [place] [address] May, BMI 40.0-44.9, adult Z68.41 ; Other chronic pain G89.29 ; Pain in right hip M25.551 and Acute pain of left knee M25.562 [place] [address] [place] [id number] [address] [place] [address] May, Chronic pain G89.29 [place] [id number] [address] [place] [address] Apr, Chronic pain G89.29 [facility] [address] [facility] [id number] [address] [place] [address] Mar, Poison josep L23.7 [facility] [address] [facility] [id number] [address] [place] [address] Mar, Chronic pain G89.29 [facility] [address] [facility] [id number] [address] [place] [address] Feb, Chronic pain G89.29 [facility] [address] [facility] [id number] [address] [place] [address] Feb, Poison josep L23.7 [place] [address] [facility] [id number] [address] [place] [address] Jan, Chronic pain G89.29 [place] [address] [facility] [id number] [address] [place] [address] December, Chronic pain G89.29 [place] [address] [facility] [id number] [address] [place] [address] Nov, Long-term use of high-risk m edication Z79.899 [place] [address] [place] [id number] [address] [place] [address] Nov, Chronic pain G89.29 [place] [address] [place] [id number] [address] [place] [address] Oct, Chronic pain G89.29 ; Pre-di abetes R73.09 ; Long-term use of high- risk medication Z79.899 ; Allergic rhinitis, unspecified seasonality, unspecified trigger J30.9 ; BMI 45.0-49.9, adult Z68.42 and Essential hypertension I10 [place] [address] [facility] [id number] [address] [place] [address] Oct, Chronic pain G89.29 [place] [address] [facility] [id number] [address] [place] [address] Sep, Chronic pain G89.29 [place] [address] [place] [id number] [address] [place] [address] Aug, Chronic pain G89.29 [facility] [address] [place] [id number] [address] [place] [address] Jul, [facility] [address] [place] [id number] [address] [place] [address] Jul, [facility] [address] [place] [id number] [place] [address] Jun, Chronic pain G89.29 ; BMI 45 .0-49.9, adult Z68.42 ; Pre-diabetes R73.09 ; Essential hypertension I10 ; GERD (gastroesophageal reflux disease) K21.9 ; Yeast dermatitis B37.2 ; Dysuria R30.0 ; Acute non-recurrent maxillary sinusitis J01.00 and Acute cystitis with hematuria N30.01 [place] [address] [address] Jun, Chronic pain G89.29 [facility] [address] [place] [id number] [place] [address] Jun, Acute non-recurrent maxillar y sinusitis J01.00 and BMI 45.0-49.9, adult Z68.42 [place] [place] [id number] [address] [place] [address] May, [place] [address] [place] [id number] [place] [address] May, Chronic pain G89.29 [facility] [address] [place] [id number] [address] [place] [address] May, [place] [address] [place] [id number] [place] [address] Apr, Chronic pain G89.29 [facility] [address] [place] [id number] [address] [place] [address] Mar, [facility] [address] [place] [id number] [place] [address] Mar, Essential hypertension I10 a nd Pre-diabetes R73.09 [place] [address] [facility] [id number] [address] [place] [address] 15 Mar, 2017 Chronic pain G89.29 ; Essent ial hypertension I10 ; Depressive disorder, not elsewhere classified F32.9 ; GERD (gastroesophageal reflux disease) K21.9 ; Pre-diabetes R73.09 ; Stasis dermatitis of both legs I87.2 and Acute non-recurrent maxillary sinusitis J01.00 [place] [address] [place] [id number] [address] [place] [address] 11 Mar, 2017 Chronic pain G89.29 [place] [address] [place] [id number] [address] [place] [address] 07 Mar, 2017 Achilles tendinitis of right lower extremity M76.61 and Tinea corporis B35.4 [place] [id number] [address] [place] [address] 17 Feb, 2017 Yeast dermatitis B37.2 [place] [address] [place] [id number] [address] [place] [address] 14 Feb, 2017 Candidal intertrigo B37.2 an d Acute right ankle pain M25.571 [place] [address] [place] [id number] [address] [place] [address] 12 Feb, 2017 Chronic pain G89.29 [place] [address] [place] [id number] [address] [place] [address] 16 Jan, 2017 [place] [address] [place] [id number] [address] [place] [address] Jan, Chronic pain G89.29 [place] [address] [place] [id number] [address] [place] [address] December, Chronic pain G89.29 ; Essent ial hypertension I10 ; Depressive disorder, not elsewhere classified F32.9 ; GERD (gastroesophageal reflux disease) K21.9 ; Pre-diabetes R73.09 ; Screening breast examination Z12.39 ; Stasis dermatitis of both legs I87.2 and Yeast dermatitis B37.2 [place] [address] [place] [id number] [address] [place] [address] Nov, Chronic pain G89.29 [place] [address] [place] [id number] [address] [place] [address] Nov, Cellulitis of left lower ext remity L03.116 [place] [address] [address] Nov, Cellulitis of left lower ext remity L03.116 [place] [address] [place] [address] Oct, Yeast dermatitis B37.2 [place] [address] [address] Oct, Chronic pain G89.29 [place] [address] [address] Sep, Chronic pain G89.29 ; Essent ial hypertension I10 ; Depressive disorder, not elsewhere classified F32.9 and GERD (gastroesophageal reflux disease) K21.9 [place] [address] [address] Aug, Chronic pain G89.29 [place] [address] [address] Aug, Cough R05 ; Rash R21 and Vinay h and nonspecific skin eruption R21 [place] [address] [address] Jul, Chronic pain G89.[address] [address] Jun, Chronic pain G89.29 ; Bronch itis J40 ; Essential hypertension I10 ; Depressive disorder, not elsewhere classified F32.9 ; GERD (gastroesophageal reflux disease) K21.9 and History of long-term use of multiple prescription drugs Z92.29 [place] [address] [address] Jun, Bronchitis J40 ; Chills R68. 83 and Sore throat J02.9 [place] [address] [address] May, [place] [address] [address] Apr, [facility] [address] [address] Apr, Acute mucoid otitis media of both ears H65.[address] [address] 07 Apr, 2016 Yeast dermatitis B37.2 and H ematuria R31.[address] [address] Mar, [place] [address] [address] Mar, [place] [address] [address] Feb, Left anterior knee pain M25. [address] [address] Feb, Chronic pain G89.29 ; Essent ial hypertension I10 ; Depressive disorder, not elsewhere classified F32.9 ; GERD (gastroesophageal reflux disease) K21.9 and History of long-term use of multiple prescription drugs Z92.29 [place] [address] [address] Jan, [address] [address] Jan, Well woman exam Z01.419 ; BM I 45.0-49.9, adult Z68.42 ; Family history of diabetes mellitus Z83.3 and Chronic pain G89.29 [place] [id number] [place] [address] December, Chronic pain G89.29 ; Essent ial hypertension I10 ; Depressive disorder, not elsewhere classified F32.9 ; GERD (gastroesophageal reflux disease) K21.9 ; 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 ; History of long-term use of multiple prescription drugs Z92.29 and Obesity E66.[address] [address] Oct, [address] [address] Oct, Well woman exam Z01.419 ; BM [...] smear Z12.4 and No natural teeth K00.[address] [address] Oct, [address] [address] Sep, Chronic pain G89.29 ; Essent ial hypertension I10 ; GERD (gastroesophageal reflux disease) K21.9 ; 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 ; Skin infection L08.9 and History of long-term use of multiple prescription drugs Z92.29 [place] [address] [address] Aug, [address] [address] Jul, [place] [address] [address] Jul, [address] [place] [address] 09 Jul, 2015 Upper respiratory infection J06.9 [place] [address] [address] Jul, Depressive disorder, not els ewhere classified F32.9 [facility] [address] [place] [id number] [place] [address] Jul, Chronic pain 338.29 [place] [address] [address] Jul, Chronic pain G89.29 [place] [address] [address] 16 Jun, 2015 Poison josep L23.7 [place] [address] [address] Jun, Allergic contact dermatitis due to plants, except food L23.7 [place] [address] [address] Jun, Essential hypertension I10 ; Chronic pain G89.29 ; GERD (gastroesophageal reflux disease) K21.9 and Numbness and tingling in hands R20.2 [place] [address] [address] May, [place] [address] [address] Apr, [facility] [address] [address] Mar, [place] [address] [address] Feb, Abdominal pain, left lateral 789.09 and Constipation 564.00 [place] [address] [place] [id number] [place] [address] Feb, Depressive disorder, not els ewhere classified 311 and No condition on Nicholson II V71.09 [place] [address] [place] [address] [place] [address] Feb, Spider bite 989.5 and Depres homar 311 [facility] [address] [address] Feb, [facility] [address] [place] [id number] [address] [place] [address] Feb, Chronic pain 338.29 ; Arthro zonia 716.90 and GERD (gastroesophageal reflux disease) 530.81 [facility] [address] [address] Jan, Insect bites 919.4 [facility] [address] [address] Jan, [facility] [address] [address] December, Skin infection, bacterial 68 6.9 ; Conjunctivitis 372.30 and Insect bites 919.4 [facility] [address] [place] [id number] [address] [place] [address] December, Chronic pain 338.29 ; Arthro zonia 716.90 ; Skin infection, bacterial 686.9 and Conjunctivitis 372.30 [facility] [address] [place] [id number] [address] [place] [address] December, [facility] [address] [place] [address] Nov, [facility] [address] [place] [id number] [address] [place] [address] Nov, [facility] [address] [place] [id number] [address] [place] [address] Oct, [facility] [address] [place] [id number] [address] [place] [address] Oct, [facility] [address] [place] [id number] [address] [place] [address] Sep, [facility] [place] [facility] [address] [id number] [address] [place] [address], [place] [address] Sep, [facility] [address] [id number] [address] [place] [address], [place] [address] Aug, [facility] [address] [id number] [address] [place] [address], [place] [address] Aug, [facility] [address] [id number] [address] [place] [address], [place] [address] Aug, [facility] [address] [id number] [address] [place] [address], [place] [address] Aug, [facility] [address] [id number] [address] [place] [address], [place] [address] Jul, [facility] [address] [id number] [address] [place] [address], [place] [address] Jul, [facility] [address] [id number] [address] [place] [address], [place] [address] Jul, [facility] [address] [id number] [address] [place] [address], [place] [address] Jul, [facility] [address] [id number] [address] [place] [address], [place] [address] Jul, [facility] [address] [id number] [address] [place] [address], [place] [address] Jul, [facility] [address] [id number] [address] [place] [address], [place] [address] Jul, [facility] [address] [id number] [address] [place] [address], [place] [address] Jul, [facility] [place] [facility] [address] [id number] [address] [place] [address], [place] [address] Jul, [facility] [address] [id number] [address] [place] [address], [place] [address] Jun, [facility] [address] [id number] [address] [place] [address], [place] [address] Jun, [facility] [place] [facility] [address] [id number] [address] [place] [address], [place] [address] Jun, [facility] [place] [facility] [address] [id number] [address] [place] [address], [place] [address] Jun, [facility] [place] [facility] [address] [id number] [address] [place] [address], [place] [address] Jun, [facility] [place] [facility] [address] [id number] [address] [place] [address] Jun, [facility] [place] [facility] [address] [id number] [address] [place] [address], [place] [address] Jun, [facility] [place] [facility] [address] [id number] [address] [place] [address], [place] [address] Jun, [facility] [place] [facility] [address] [id number] [address] [place] [address], [place] [address] May, [facility] [place] [facility] [address] [id number] [address] [place] [address], [place] [address] May, [facility] [place] [facility] [address] [id number] [address] [place] [address], [place] [address] May, [facility] [place] [facility] [address] [id number] [address] [place] [address], [place] [address] May, [facility] [place] [facility] [address] [id number] [address] [place] [address] May, [facility] [place] [facility] [address] [id number] [address] [place] [address] Apr, [facility] [place] [facility] [address] [id number] [address] [place] [address], [place] [address] Apr, [facility] [place] [facility] [address] [id number] [address] [place] [address], [place] [address] Apr, [facility] [place] [facility] [address] [id number] [address] [place] [address], [place] [address] Apr, [facility] [place] [facility] [address] [id number] [facility] [place] [address] 18 Apr, 2013 [facility] [address] [id number] [address] [place] [address], [place] [address] 18 Apr, 2014 [facility] [address] [id number] [address] [place] [address], [place] [address] 18 Apr, 2014 [facility] [address] [id number] [address] [place] [address], [place] [address] 18 Apr, 2014 [facility] [address] [id number] [address] [place] [address], [place] [address] Apr, [facility] [address] [id number] [address] [place] [address], [place] [address] Apr, [facility] [address] [id number] [address] [place] [address], [place] [address] Mar, [facility] [address] [id number] [address] [place] [address], [place] [address] Mar, [facility] [address] [id number] [address] [place] [address], [place] [address] Mar, [facility] [place] [facility] [address] [id number] [address] [place] [address], [place] [address] Mar, [facility] [address] [id number] [address] [place] [address], [place] [address] Mar, [facility] [address] [id number] [address] [place] [address], [place] [address] Mar, [facility] [address] [id number] [address] [place] [address], [place] [address] Feb, [facility] [address] [id number] [address] [place] [address], [place] [address] Feb, [facility] [address] [id number] [address] [place] [address], [place] [address] Jan, [facility] [address] [id number] [address] [place] [address], [place] [address] Jan, [facility] [address] [id number] [address] [place] [address], [place] [address] Jan, [facility] [address] [id number] [address] [place] [address], [place] [address] Jan, [facility] [facility] [address] [id number] [address] [place] [address], [place] [address] December, [facility] [address] [id number] [address] [place] [address], [place] [address] December, [facility] [address] [id number] [address] [place] [address], [place] [address] December, [facility] [address] [id number] [address] [place] [address], [place] [address] December, [facility] [address] [id number] [address] [place] [address], [place] [address] December, [facility] [address] [id number] [address] [place] [address], [place] [address] December, [facility] [address] [id number] [address] [place] [address], [place] [address] December, [facility] [address] [id number] [address] [place] [address], [place] [address] December, [facility] [address] [id number] [address] [place] [address], [place] [address] December, [facility] [address] [id number] [address] [place] [address], [place] [address] Nov, [facility] [place] [facility] [address] [id number] [address] [place] [address], [place] [address] Nov, [facility] [place] [facility] [address] [id number] [address] [place] [address], [place] [address] Nov, [facility] [place] [facility] [address] [id number] [address] [place] [address], [place] [address] Nov, [facility] [address] [id number] [address] [place] [address], [place] [address] Nov, [facility] [address] [id number] [address] [place] [address], [place] [address] Nov, [facility] [address] [id number] [address] [place] [address], [place] [address] Nov, [facility] [address] [id number] [address] [place] [address], [place] [address] Nov, [facility] [address] [id number] [address] [place] [address], [place] [address] Nov, [facility] [address] [id number] [address] [place] [address], [place] [address] Nov, [facility] [address] [id number] [address] [place] [address], [place] [address] Oct, [facility] [address] [id number] [address] [place] [address], [place] [address] Oct, [facility] [address] [id number] [address] [place] [address], [place] [address] Sep, [facility] [address] [id number] [address] [place] [address], [place] [address] Sep, [facility] [address] [id number] [address] [place] [address], [place] [address] Aug, [facility] [address] [id number] [address] [place] [address], [place] [address] Aug, [facility] [address] [id number] [address] [place] [address], [place] [address] Aug, [facility] [address] [id number] [address] [place] [address], [place] [address] Aug, [facility] [address] [id number] [address] [place] [address], [place] [address] Jul, [facility] [address] [id number] [address] [place] [address], [place] [address] Jul, [facility] [address] [id number] [address] [place] [address], [place] [address] Jul, [facility] [address] [id number] [address] [place] [address], [place] [address] Jul, [facility] [address] [id number] [address] [place] [address], [place] [address] Jun, [facility] [address] [id number] [address] [place] [address], [place] [address] Jun, [facility] [address] [id number] [address] [place] [address], [place] [address] May, [facility] [address] [id number] [address] [place] [address], [place] [address] May, [facility] [address] [id number] [address] [place] [address], [place] [address] May, [facility] [address] [id number] [address] [place] [address], [place] [address] May, [facility] [address] [id number] [address] [place] [address], [place] [address] May, [facility] [address] [id number] [address] [place] [address], [place] [address] May, [facility] [address] [id number] [address] [place] [address], [place] [address] 30 Apr, 2013 [facility] [address] [id number] [address] [place] [address], [place] [address] 23 Apr, 2013 [facility] [address] [id number] [address] [place] [address], [place] [address] 03 Apr, 2013 [facility] [address] [id number] [address] [place] [address], [place] [address] Feb, [facility] [address] [id number] [address] [place] [address], [place] [address] Jan, [facility] [address] [id number] [address] [place] [id number] 18 Jan, 2013 [facility] [address] [id number] [address] [place] [address], [place] [address] 17 Jan, 2013 [facility] [address] [id number] [address] [place] [address], [place] [address] 14 Jan, 2013 [facility] [address] [id number] [address] [place] [address], [place] [address] December, [facility] [address] [id number] [address] [place] [address], [place] [address] December, [facility] [address] [id number] [address] [place] [address], [place] [address] 24 Nov, 2012 [facility] [address] [id number] [address] [place] [address], [place] [address] Nov, [facility] [address] [id number] [address] [place] [address], [place] [address] Nov, [facility] [address] [id number] [address] [place] [address], [place] [address] Nov, [facility] [address] [id number] [address] [place] [address], [place] [address] Nov, [facility] [address] [address] [id number] [address] [place] [address], [place] [address] Nov, [facility] [address] [id number] [address] [place] [address], [place] [address] Nov, [facility] [address] [id number] [address] [place] [address], [place] [address] 27 Oct, 2012 [facility] [address] [id number] [address] [place] [address], [place] [address] 18 Oct, 2012 [facility] [address] [id number] [address] [place] [address], [place] [address] 14 Oct, 2012 [facility] [address] [id number] [address] [place] [address], [place] [address] 13 Oct, 2012 [facility] [address] [id number] [address] [place] [address], [place] [address] 12 Oct, 2012 [facility] [address] [id number] [address] [place] [address], [place] [address] Oct, [facility] [address] [id number] [address] [place] [address], [place] [address] 08 Oct, 2012 [facility] [address] [id number] [address] [place] [address], [place] [address] Sep, [facility] [address] [id number] [address] [place] [address], [place] [address] Sep, [facility] [address] [id number] [address] [place] [address], [place] [address] Aug, [facility] [address] [id number] [address] [place] [address], [place] [address] Aug, [facility] [address] [id number] [address] [place] [address], [place] [address] Jul, [facility] [address] [id number] [address] [place] [address], [place] [address] Jul, [facility] [address] [id number] [address] [place] [address], [place] [address] Jul, [facility] [address] [id number] [address] [place] [address], [place] [address] Jul, [facility] [address] [id number] [address] [place] [address], [place] [address] Jul, [facility] [address] [id number] [address] [place] [address], [place] [address] Jul, [facility] [address] [id number] [address] [place] [address], [place] [address] Jul, [facility] [address] [id number] [address] [place] [address], [place] [address] Jul, [facility] [address] [id number] [address] [place] [address], [place] [address] Jun, [facility] [address] [facility] [id number] [address] [place] [address] Jun, IMMUNIZATIONS No Known Immunizations SOCIAL HISTORY Never Assessed REASON FOR VISIT Controlled Med Refill PLAN OF CARE VITAL SIGNS MEDICATIONS Medication Instructions Dosage Frequency Start Date End Date Duration S tatus Hydrocodone-Acetaminophen 5-325 MG Orally 3 times a day prn must last 4 weeks 1 Tablet Jun, 28 days Active RESULTS No Results PROCEDURES No Known [...] -- total 11/2012 Hospitalization History ER- in [place] due to left knee 8
--- OUTSIDE RECORDS SUMMARY | 2020-02-11 03:21 | XMS REPORT ---
Author Author Madeline Magdaleno Doctor Organization [facility] Address Unknown Phone Unavailable Care Team Providers Care Editorial Writer Name Role Phone Migration, Doctor Unavailable Unavailable PROBLEMS Type Condition ICD9-CM Code WSI64-QP Code Onset Dates Condition S tatus SNOMED Code Problem Pre-diabetes R73.09 Active 5680259 02 Problem Chronic pain G89.29 Active 6343194 1 Problem GERD (gastroesophageal reflux disease) K21.9 Active 450361737 Problem Essential hypertension I10 Active 65162587 Problem Primary insomnia F51.01 Active 397 2004 Problem Numbness and tingling in hands R20.2 Active 880319904 Problem History of abnormal cervical Pap smear Z87.898 Active 507615905 Problem Stasis dermatitis of both legs I87.2 Active 35109331 Problem BMI 45.0-49.9, adult Z68.42 Active 626542196 ALLERGIES No Information ENCOUNTERS Encounter Location Date Diagnosis [place] [address] [address] 14 Sep, 2018 BMI 45.0-49.9, adult Z68.42 and Chronic pain G89.29 [place] [id number] [address] [place] [address] 05 Sep, 2018 BMI 45.0-49.9, adult Z68.42 and Essential hypertension I10 [facility] [address] [place] [id number] [address] [place] [address] Aug, BMI 45.0-49.9, adult Z68.42 ; Chronic pain G89.29 ; Essential hypertension I10 and Primary insomnia F51.01 [facility] [address] [place] [id number] [address] [place] [address] Aug, Chronic pain G89.29 [place] [address] [place] [id number] [place] [address] Jul, Chronic pain G89.29 [facility] [address] [id number] [address] [place] [address] Jun, Chronic pain G89.29 [facility] [address] [facility] [id number] [address] [place] [address] May, Chronic pain G89.29 [facility] [address] [facility] [id number] [address] [place] [address] May, BMI 40.0-44.9, adult Z68.41 ; Other chronic pain G89.29 ; Pain in right hip M25.551 and Acute pain of left knee M25.562 [facility] [address] [id number] [address] [place] [address] May, Chronic pain G89.29 [facility] [address] [facility] [place] [place] [id number] [address] [place] [address] Apr, Chronic pain G89.29 [facility] [address] [facility] [place] [id number] [address] [place] [address] Mar, Poison josep L23.7 [facility] [address] [facility] [place] [id number] [address] [place] [address] Mar, Chronic pain G89.29 [facility] [address] [facility] [place] [place] [id number] [address] [place] [address] Feb, Chronic pain G89.29 [facility] [address] [facility] [place] [id number] [address] [place] [address] Feb, Poison josep L23.7 [facility] [address] [facility] [place] [place] [id number] [address] [place] [address] Jan, Chronic pain G89.29 [facility] [address] [facility] [place] [place] [id number] [address] [place] [address] December, Chronic pain G89.29 [facility] [address] [facility] [place] [place] [id number] [address] [place] [address] 12 Apr, 2018 Long-term use of high-risk m edication Z79.899 [facility] [address] [place] [id number] [place] [address] Nov, Chronic pain G89.29 [facility] [address] [place] [id number] [address] [place] [address] Oct, Chronic pain G89.29 ; Pre-di abetes R73.09 ; Long-term use of high- risk medication Z79.899 ; Allergic rhinitis, unspecified seasonality, unspecified trigger J30.9 ; BMI 45.0-49.9, adult Z68.42 and Essential hypertension I10 [place] [address] [address] Oct, Chronic pain G89.29 [place] [address] [place] [id number] [place] [address] Sep, Chronic pain G89.29 [place] [address] [address] Aug, Chronic pain G89.29 [place] [address] [address] Jul, [place] [address] [address] Jul, [place] [address] [address] Jun, Chronic pain G89.29 ; BMI 45 .0-49.9, adult Z68.42 ; Pre-diabetes R73.09 ; Essential hypertension I10 ; GERD (gastroesophageal reflux disease) K21.9 ; Yeast dermatitis B37.2 ; Dysuria R30.0 ; Acute non-recurrent maxillary sinusitis J01.00 and Acute cystitis with hematuria N30.01 [place] [address] [place] [id number] [place] [address] 13 Jun, 2017 Chronic pain G89.29 [place] [address] [address] Jun, Acute non-recurrent maxillar y sinusitis J01.00 and BMI 45.0-49.9, adult Z68.42 [place] [address] [facility] [place] [id number] [address] [place] [address] May, [place] [address] [facility] [place] [id number] [address] [place] [address] May, Chronic pain G89.29 [place] [address] [place] [id number] [address] [place] [address] May, [place] [address] [facility] [place] [id number] [address] [place] [address] Apr, Chronic pain G89.29 [place] [address] [place] [id number] [address] [place] [address] Mar, [place] [address] [address] Mar, Essential hypertension I10 a nd Pre-diabetes R73.09 [place] [address] [address] Mar, Chronic pain G89.29 ; Essent ial hypertension I10 ; Depressive disorder, not elsewhere classified F32.9 ; GERD (gastroesophageal reflux disease) K21.9 ; Pre-diabetes R73.09 ; Stasis dermatitis of both legs I87.2 and Acute non-recurrent maxillary sinusitis J01.00 [place] [address] [place] [id number] [address] [place] [address] Mar, Chronic pain G89.29 [place] [address] [place] [id number] [address] [place] [address] Mar, Achilles tendinitis of right lower extremity M76.61 and Tinea corporis B35.4 [place] [address] [place] [id number] [address] [place] [address] Feb, Yeast dermatitis B37.2 [place] [address] [place] [id number] [address] [place] [address] 14 Feb, 2017 Candidal intertrigo B37.2 an d Acute right ankle pain M25.571 [place] [address] [facility] [place] [id number] [address] [place] [address] Feb, Chronic pain G89.29 [place] [address] [facility] [place] [id number] [address] [place] [address] Jan, [place] [address] [facility] [place] [id number] [address] [place] [address] Jan, Chronic pain G89.29 [place] [address] [facility] [place] [place] [id number] [address] [place] [address] December, Chronic pain G89.29 ; Essent ial hypertension I10 ; Depressive disorder, not elsewhere classified F32.9 ; GERD (gastroesophageal reflux disease) K21.9 ; Pre-diabetes R73.09 ; Screening breast examination Z12.39 ; Stasis dermatitis of both legs I87.2 and Yeast dermatitis B37.2 [place] [address] [facility] [place] [place] [id number] [address] [place] [address] Nov, Chronic pain G89.29 [place] [address] [facility] [place] [place] [id number] [address] [place] [address] Nov, Cellulitis of left lower ext remity L03.116 [place] [address] [facility] [place] [id number] [address] [place] [address] Nov, Cellulitis of left lower ext remity L03.116 [place] [address] [facility] [place] [id number] [address] [place] [address] Oct, Yeast dermatitis B37.2 [place] [address] [facility] [place] [id number] [address] [place] [address] Oct, Chronic pain G89.29 [place] [address] [facility] [place] [id number] [address] [place] [address] Sep, Chronic pain G89.29 ; Essent ial hypertension I10 ; Depressive disorder, not elsewhere classified F32.9 and GERD (gastroesophageal reflux disease) K21.9 [facility] [address] [facility] [place] [id number] [address] [place] [address] Aug, Chronic pain G89.29 [facility] [address] [facility] [place] [id number] [address] [place] [address] Aug, Cough R05 ; Rash R21 and Vinay h and nonspecific skin eruption R21 [place] [address] [place] [id number] [place] [address] Jul, Chronic pain G89.29 [place] [address] [address] Jun, Chronic pain G89.29 ; Bronch itis J40 ; Essential hypertension I10 ; Depressive disorder, not elsewhere classified F32.9 ; GERD (gastroesophageal reflux disease) K21.9 and History of long-term use of multiple prescription drugs Z92.29 [place] [address] [address] Jun, Bronchitis J40 ; Chills R68. 83 and Sore throat J02.9 [place] [address] [address] May, [place] [address] [place] [id number] [place] [address] Apr, [facility] [address] [place] [id number] [place] [address] Apr, Acute mucoid otitis media of both ears H65.113 [place] [address] [place] [id number] [address] [place] [address] Apr, Yeast dermatitis B37.2 and H ematuria R31.9 [facility] [address] [place] [id number] [address] [place] [address] Mar, [place] [address] [place] [id number] [place] [address] Mar, [place] [address] [place] [id number] [place] [address] Feb, Left anterior knee pain M25. [address] [address] Feb, Chronic pain G89.29 ; Essent ial hypertension I10 ; Depressive disorder, not elsewhere classified F32.9 ; GERD (gastroesophageal reflux disease) K21.9 and History of long-term use of multiple prescription drugs Z92.29 [place] [address] [address] Jan, [address] [address] Jan, Well woman exam Z01.419 ; BM I 45.0-49.9, adult Z68.42 ; Family history of diabetes mellitus Z83.3 and Chronic pain G89.[address] [address] December, Chronic pain G89.29 ; Essent ial hypertension I10 ; Depressive disorder, not elsewhere classified F32.9 ; GERD (gastroesophageal reflux disease) K21.9 ; 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 ; History of long-term use of multiple prescription drugs Z92.29 and Obesity E66.[address] [address] Oct, [address] [address] Oct, Well woman exam Z01.419 ; BM [...] smear Z12.4 and No natural teeth K00.0 [place] [address] [place] [id number] [place] [address] Oct, [place] [address] [address] Sep, Chronic pain G89.29 ; Essent ial hypertension I10 ; GERD (gastroesophageal reflux disease) K21.9 ; 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 ; Skin infection L08.9 and History of long-term use of multiple prescription drugs Z92.29 [place] [address] [place] [id number] [place] [address] Aug, [place] [address] [address] Jul, [place] [address] [address] Jul, [place] [address] [address] Jul, Upper respiratory infection J06.9 [place] [address] [address] Jul, Depressive disorder, not els ewhere classified F32.9 [place] [address] [place] [id number] [address] [place] [address] Jul, Chronic pain 338.29 [place] [id number] [address] [place] [address] Jul, Chronic pain G89.29 [place] [address] [place] [id number] [address] [place] [address] Jun, Poison josep L23.7 [place] [address] [place] [id number] [address] [place] [address] Jun, Allergic contact dermatitis due to plants, except food L23.7 [place] [address] [place] [id number] [address] [place] [address] Jun, Essential hypertension I10 ; Chronic pain G89.29 ; GERD (gastroesophageal reflux disease) K21.9 and Numbness and tingling in hands R20.2 [place] [address] [address] May, [place] [address] [address] Apr, [place] [address] [address] Mar, [place] [address] [address] Feb, Abdominal pain, left lateral 789.09 and Constipation 564.00 [place] [address] [address] Feb, Depressive disorder, not els ewhere classified 311 and No condition on [place] V71.[address] [address] Feb, Spider bite 989.5 and Depres homar [address] [address] Feb, [place] [address] [address] Feb, Chronic pain 338.29 ; Arthro zonia 716.90 and GERD (gastroesophageal reflux disease) 530.81 [place] [address] [address] Jan, Insect bites 919.4 [place] [address] [address] Jan, [address] [address] December, Skin infection, bacterial 68 6.9 ; Conjunctivitis 372.30 and Insect bites 919.[address] [address] December, Chronic pain 338.29 ; Arthro zonia 716.90 ; Skin infection, bacterial 686.[address]30 [facility] [address] [id number] [address] [place] [address] December, [facility] [address] [id number] [address] [place] [address] Nov, [facility] [address] [id number] [address] [place] [address] Nov, [facility] [address] [id number] [address] [place] [address] Oct, [facility] [address] [id number] [address] [place] [address] Oct, [facility] [address] [id number] [address] [place] [address] Sep, [facility] [address] [id number] [address] [place] [address] Sep, [facility] [address] [id number] [address] [place] [address] Aug, [facility] [address] [id number] [address] [place] [address] Aug, [facility] [address] [id number] [address] [place] [address] Aug, [facility] [address] [id number] [address] [place] [address] Aug, [facility] [address] [id number] [address] [place] [address] Jul, [facility] [address] [id number] [address] [place] [address] Jul, [facility] [address] [id number] [address] [place] [address] Jul, [facility] [address] [id number] [address] [place] [address], [place] [address] 15 Jul, 2014 [facility] [address] [id number] [address] [place] [address], [place] [address] 15 Jul, 2014 [facility] [address] [id number] [address] [place] [address], [place] [address] 15 Jul, 2014 [facility] [address] [id number] [address] [place] [address], [place] [address] 15 Jul, 2014 [facility] [address] [id number] [address] [place] [address], [place] [address] 12 Jul, 2014 [facility] [address] [id number] [address] [place] [address], [place] [address] 12 Jul, 2014 [facility] [address] [id number] [address] [place] [address], [place] [address] Jun, [facility] [address] [id number] [address] [place] [address], [place] [address] Jun, [facility] [address] [id number] [address] [place] [address], [place] [address] Jun, [facility] [address] [id number] [address] [place] [address], [place] [address] Jun, [facility] [address] [id number] [address] [place] [address], [place] [address] Jun, [facility] [address] [id number] [address] [place] [address], [place] [address] Jun, [facility] [address] [id number] [address] [place] [address], [place] [address] Jun, [facility] [address] [id number] [address] [place] [address], [place] [address] Jun, [facility] [address] [id number] [address] [place] [address], [place] [address] May, [facility] [address] [id number] [address] [place] [address], [place] [address] May, [facility] [address] [id number] [address] [place] [address], [place] [address] 16 May, 2014 [facility] [address] [id number] [address] [place] [address], [place] [address] May, [facility] [address] [id number] [address] [place] [address], [place] [address] May, [facility] [address] [id number] [address] [place] [address], [place] [address] Apr, 2013 [facility] [address] [id number] [address] [place] [address], [place] [address] Apr, 2013 [facility] [address] [id number] [address] [place] [address], [place] [address] Apr, [facility] [address] [id number] [address] [place] [address], [place] [address] Apr, [facility] [address] [id number] [address] [place] [address], [place] [address] Apr, 2013 [facility] [address] [id number] [address] [place] [address], [place] [address] Apr, [facility] [address] [id number] [address] [place] [address], [place] [address] Apr, [facility] [address] [id number] [address] [place] [address], [place] [address] Apr, [facility] [address] [id number] [address] [place] [address], [place] [address] Apr, 2013 [facility] [address] [id number] [address] [place] [address], [place] [address] Apr, [facility] [address] [id number] [address] [place] [address], [place] [address] Mar, [facility] [address] [id number] [address] [place] [address], [place] [address] Mar, [facility] [address] [id number] [address] [place] [address], [place] [address] Mar, [facility] [address] [id number] [address] [place] [address], [place] [address] Mar, [facility] [address] [id number] [address] [place] [address], [place] [address] Mar, [facility] [address] [id number] [address] [place] [address], [place] [address] Mar, [facility] [address] [id number] [address] [place] [address], [place] [address] Feb, [facility] [address] [id number] [address] [place] [address], [place] [address] Feb, [facility] [address] [id number] [address] [place] [address], [place] [address] Jan, [facility] [address] [id number] [address] [place] [address], [place] [address] Jan, [facility] [address] [id number] [address] [place] [address], [place] [address] Jan, [facility] [address] [id number] [address] [place] [address], [place] [address] Jan, [facility] [address] [id number] [address] [place] [address], [place] [address] December, [facility] [address] [id number] [address] [place] [address], [place] [address] December, [facility] [address] [id number] [address] [place] [address], [place] [address] December, [facility] [address] [id number] [address] [place] [address], [place] [address] December, [facility] [address] [id number] [address] [place] [address], [place] [address] December, [facility] [address] [id number] [address] [place] [address], [place] [address] December, [facility] [address] [id number] [address] [place] [address], [place] [address] December, [facility] [address] [id number] [address] [place] [address], [place] [address] December, [facility] [address] [id number] [address] [place] [address], [place] [address] December, [facility] [address] [id number] [address] [place] [address], [place] [address] Nov, [facility] [address] [id number] [address] [place] [address], [place] [address] Nov, [facility] [address] [id number] [address] [place] [address], [place] [address] Nov, [facility] [address] [id number] [address] [place] [address], [place] [address] Nov, [facility] [address] [id number] [address] [place] [address], [place] [address] Nov, [facility] [address] [id number] [address] [place] [address], [place] [address] Nov, [facility] [address] [id number] [address] [place] [address], [place] [address] Nov, [facility] [address] [id number] [address] [place] [address], [place] [address] Nov, [facility] [address] [id number] [address] [place] [address], [place] [address] Nov, [facility] [address] [id number] [address] [place] [address], [place] [address] Nov, [facility] [address] [id number] [address] [place] [address], [place] [address] Oct, [facility] [address] [id number] [address] [place] [address], [place] [address] Oct, [facility] [address] [id number] [address] [place] [address], [place] [address] Sep, [facility] [address] [id number] [address] [place] [address], [place] [address] Sep, [facility] [address] [id number] [address] [place] [address], [place] [address] Aug, [facility] [address] [id number] [address] [place] [address], [place] [address] Aug, [facility] [address] [id number] [address] [place] [address], [place] [address] Aug, [facility] [address] [id number] [address] [place] [address], [place] [address] Aug, [facility] [address] [id number] [address] [place] [address], [place] [address] Jul, [facility] [address] [id number] [address] [place] [address], [place] [address] Jul, [facility] [address] [id number] [address] [place] [address], [place] [address] Jul, [facility] [address] [id number] [address] [place] [address], [place] [address] Jul, [facility] [address] [id number] [address] [place] [address], [place] [address] Jun, [facility] [address] [id number] [address] [place] [address], [place] [address] Jun, [facility] [address] [id number] [address] [place], [place] [id number] May, [facility] [address] [id number] [address] [place] [address], [place] [address] May, [facility] [address] [id number] [address] [place] [address], [place] [address] May, [facility] [address] [id number] [address] [place] [address], [place] [address] May, [facility] [address] [id number] [address] [place] [address], [place] [address] May, [facility] [address] [id number] [address] [place] [address], [place] [address] May, [facility] [address] [id number] [address] [place] [address], [place] [address] 30 Apr, 2013 [facility] [address] [id number] [address] [place] [address], [place] [address] Apr, [facility] [address] [id number] [address] [place] [address], [place] [address] Apr, [facility] [address] [id number] [address] [place] [address], [place] [address] Feb, [facility] [address] [id number] [address] [place] [address], [place] [address] Jan, [facility] [address] [id number] [address] [place] [address], [place] [address] Jan, [facility] [address] [id number] [address] [place] [address], [place] [address] Jan, [facility] [address] [id number] [address] [place] [address], [place] [address] Jan, [facility] [address] [id number] [address] [place] [address], [place] [address] December, [facility] [address] [id number] [address] [place] [address], [place] [address] December, [facility] [address] [id number] [address] [place] [address], [place] [address] Nov, [facility] [address] [id number] [address] [place] [address], [place] [address] Nov, [facility] [address] [id number] [address] [place] [address], [place] [address] Nov, [facility] [address] [id number] [address] [place] [address], [place] [address] Nov, [facility] [address] [id number] [address] [place] [address], [place] [address] 08 Nov, 2012 [facility] [address] [id number] [address] [place] [address], [place] [address] 08 Nov, 2012 [facility] [address] [id number] [address] [place] [address], [place] [address] 03 Nov, 2012 [facility] [address] [id number] [address] [place] [address], [place] [address] 27 Oct, 2012 [facility] [address] [id number] [address] [place] [address], [place] [address] 18 Oct, 2012 [facility] [address] [id number] [address] [place] [address], [place] [address] 14 Oct, 2012 [facility] [address] [id number] [address] [place] [address], [place] [address] 13 Oct, 2012 [facility] [address] [id number] [address] [place] [address], [place] [address] 12 Oct, 2012 [facility] [address] [id number] [address] [place] [address], [place] [address] Oct, [facility] [address] [id number] [address] [place] [address], [place] [address] Oct, [facility] [address] [id number] [address] [place] [address], [place] [address] Sep, [facility] [address] [id number] [address] [place] [address], [place] [address] Sep, [facility] [address] [id number] [address] [place] [address], [place] [address] Aug, [facility] [address] [id number] [address] [place] [address], [place] [address] Aug, [facility] [address] [id number] [address] [place] [address], [place] [address] Jul, [facility] [address] [id number] [address] [place] [phone] Jul, [facility] [address] [id number] [address] [place] [id number] Jul, [facility] [address] [id number] [address] [place] [address] Jul, [facility] [address] [id number] [address] [place] [address] Jul, [facility] [address] [id number] [address] [place] [id number] Jul, [facility] [address] [id number] [address] [place] [address] Jul, [facility] [address] [facility] [place] [place] [id number] [address] [place] [id number] Jul, [facility] [address] [facility] [place] [place] [id number] [address] [place] [id number] Jun, [facility] [address] [id number] [address] [place] [phone] Jun, IMMUNIZATIONS No Known Immunizations SOCIAL HISTORY Never Assessed REASON FOR VISIT EMR[place] [place]AN OF CARE VITAL SIGNS MEDICATIONS Unknown [...]
--- OUTSIDE RECORDS SUMMARY | 2020-02-11 03:22 | XMS REPORT ---
Author Author Madeline MANCUSO Organization [facility] Address [address] [place] [address] Care Team Providers [employer] Name Role Phone JASON MANCUSO Unavailable PROBLEMS Type Condition ICD9-CM Code [id number] Code Onset Dates Condition S tatus SNOMED Code Problem Chronic pain G89.29 Active 4730691 1 Problem Pre-diabetes R73.09 Active 9235583 02 Problem Essential hypertension I10 Active 03425814 Problem BMI 45.0-49.9, adult Z68.42 Active 248289906 Problem Numbness and tingling in hands R20.2 Active 491010478 Problem GERD (gastroesophageal reflux disease) K21.9 Active 104322492 Problem Stasis dermatitis of both legs I87.2 Active 14988173 Problem History of abnormal cervical Pap smear Z87.898 Active 133739368 ALLERGIES No Information ENCOUNTERS Encounter Location Date Diagnosis [place] [address] [address] [facility] [id number] [address] [place] [address] May, Chronic pain G89.29 [place] [address] [address] [facility] [id number] [address] [place] [address] 03 May, 2018 BMI 40.0-44.9, adult Z68.41 ; Other chronic pain G89.29 ; Pain in right hip M25.551 and Acute pain of left knee M25.562 [facility] [address] [facility] [id number] [address] [place] [address] May, Chronic pain G89.29 [place] [address] [address] [facility] [id number] [address] [place] [address] Apr, Chronic pain G89.29 [place] [address] [facility] [id number] [address] [place] [address] Mar, Poison josep L23.7 [facility] [address] [facility] [id number] [address] [place] [address] Mar, Chronic pain G89.29 [facility] [address] [facility] [id number] [address] [place] [address] Feb, Chronic pain G89.29 [facility] [address] [facility] [id number] [address] [place] [address] Feb, Poison josep L23.7 [facility] [address] [facility] [id number] [address] [place] [address] Jan, Chronic pain G89.29 [place] [address] [address] [facility] [id number] [address] [place] [address] December, Chronic pain G89.29 [place] [address] [address] [facility] [id number] [address] [place] [address] Nov, Long-term use of high-risk m edication Z79.899 [place] [address] [address] [facility] [id number] [address] [place] [address] Nov, Chronic pain G89.29 [place] [address] [facility] [id number] [address] [place] [address] Oct, Chronic pain G89.29 ; Pre-di abetes R73.09 ; Long-term use of high- risk medication Z79.899 ; Allergic rhinitis, unspecified seasonality, unspecified trigger J30.9 ; BMI 45.0-49.9, adult Z68.42 and Essential hypertension I10 [place] [address] [facility] [id number] [address] [place] [address] Oct, Chronic pain G89.29 [place] [address] [address] [facility] [id number] [address] [place] [address] Sep, Chronic pain G89.29 [place] [address] [facility] [id number] [address] [place] [address] Aug, Chronic pain G89.29 [place] [address] [place] [id number] [address] [place] [address] Jul, [place] [address] [address] Jul, [place] [address] [place] [id number] [place] [address] Jun, Chronic pain G89.29 ; BMI 45 .0-49.9, adult Z68.42 ; Pre-diabetes R73.09 ; Essential hypertension I10 ; GERD (gastroesophageal reflux disease) K21.9 ; Yeast dermatitis B37.2 ; Dysuria R30.0 ; Acute non-recurrent maxillary sinusitis J01.00 and Acute cystitis with hematuria N30.01 [place] [address] [address] Jun, Chronic pain G89.29 [place] [address] [address] Jun, Acute non-recurrent maxillar y sinusitis J01.00 and BMI 45.0-49.9, adult Z68.42 [place] [address] [address] May, [place] [address] [address] May, Chronic pain G89.29 [place] [address] [address] May, [place] [address] [address] Apr, Chronic pain G89.29 [place] [address] [address] Mar, [place] [address] [place] [id number] [place] [address] Mar, Essential hypertension I10 a nd Pre-diabetes R73.09 [place] [address] [address] Mar, Chronic pain G89.29 ; Essent ial hypertension I10 ; Depressive disorder, not elsewhere classified F32.9 ; GERD (gastroesophageal reflux disease) K21.9 ; Pre-diabetes R73.09 ; Stasis dermatitis of both legs I87.2 and Acute non-recurrent maxillary sinusitis J01.00 [place] [address] [facility] [id number] [address] [place] [address] Mar, Chronic pain G89.29 [place] [address] [place] [id number] [address] [place] [address] Mar, Achilles tendinitis of right lower extremity M76.61 and Tinea corporis B35.4 [place] [address] [facility] [id number] [address] [place] [address] 17 Feb, 2017 Yeast dermatitis B37.2 [place] [address] [place] [id number] [address] [place] [address] Feb, Candidal intertrigo B37.2 an d Acute right ankle pain M25.571 [place] [address] [address] [facility] [id number] [address] [place] [address] Feb, Chronic pain G89.29 [place] [address] [facility] [id number] [address] [place] [address] Jan, [place] [address] [place] [id number] [address] [place] [address] Jan, Chronic pain G89.29 [place] [address] [place] [id number] [address] [place] [address] December, Chronic pain G89.29 ; Essent ial hypertension I10 ; Depressive disorder, not elsewhere classified F32.9 ; GERD (gastroesophageal reflux disease) K21.9 ; Pre-diabetes R73.09 ; Screening breast examination Z12.39 ; Stasis dermatitis of both legs I87.2 and Yeast dermatitis B37.2 [place] [address] [place] [id number] [address] [place] [address] Nov, Chronic pain G89.29 [place] [address] [place] [id number] [address] [place] [address] Nov, Cellulitis of left lower ext remity L03.116 [place] [address] [place] [id number] [address] [place] [address] Nov, Cellulitis of left lower ext remity L03.116 [place] [id number] [place] [address] Oct, Yeast dermatitis B37.2 [place] [address] [place] [id number] [place] [address] Oct, Chronic pain G89.29 [place] [address] [place] [id number] [place] [address] Sep, Chronic pain G89.29 ; Essent ial hypertension I10 ; Depressive disorder, not elsewhere classified F32.9 and GERD (gastroesophageal reflux disease) K21.9 [place] [address] [place] [id number] [address] [place] [address] Aug, Chronic pain G89.29 [place] [address] [address] Aug, Cough R05 ; Rash R21 and Vinay h and nonspecific skin eruption R21 [address] [address] Jul, Chronic pain G89.29 [place] [address] [place] [id number] [address] [place] [address] Jun, Chronic pain G89.29 ; Bronch itis J40 ; Essential hypertension I10 ; Depressive disorder, not elsewhere classified F32.9 ; GERD (gastroesophageal reflux disease) K21.9 and History of long-term use of multiple prescription drugs Z92.29 [place] [address] [place] [id number] [address] [place] [address] Jun, Bronchitis J40 ; Chills R68. 83 and Sore throat J02.9 [facility] [id number] [place] [address] May, [facility] [address] [address] Apr, [facility] [address] [place] [id number] [address] [place] [address] Apr, Acute mucoid otitis media of both ears H65.113 [facility] [address] [address] 07 Apr, 2016 Yeast dermatitis B37.2 and H ematuria R31.9 [place] [address] [address] Mar, [place] [address] [address] Mar, [facility] [address] [address] Feb, Left anterior knee pain M25. 562 [facility] [address] [address] Feb, Chronic pain G89.29 ; Essent ial hypertension I10 ; Depressive disorder, not elsewhere classified F32.9 ; GERD (gastroesophageal reflux disease) K21.9 and History of long-term use of multiple prescription drugs Z92.29 [place] [address] [place] [id number] [address] [place] [address] Jan, [place] [address] [address] Jan, Well woman exam Z01.419 ; BM I 45.0-49.9, adult Z68.42 ; Family history of diabetes mellitus Z83.3 and Chronic pain G89.29 [place] [address] [place] [id number] [address] [place] [address] December, Chronic pain G89.29 ; Essent ial hypertension I10 ; Depressive disorder, not elsewhere classified F32.9 ; GERD (gastroesophageal reflux disease) K21.9 ; 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 ; History of long-term use of multiple prescription drugs Z92.29 and Obesity E66.9 [place] [address] [address] Oct, [place] [address] [address] 07 Oct, 2015 Well woman exam Z01.419 [...] smear Z12.4 and No natural teeth K00.0 [place] [address] [address] Oct, [address] [address] Sep, Chronic pain G89.29 ; Essent ial hypertension I10 ; GERD (gastroesophageal reflux disease) K21.9 ; 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 ; Skin infection L08.9 and History of long-term use of multiple prescription drugs Z92.29 [place] [address] [address] Aug, [place] [address] [address] Jul, [place] [address] [address] Jul, [place] [address] [address] Jul, Upper respiratory infection J06.[address] [place] [address] 09 Jul, 2015 Depressive disorder, not els ewhere classified F32.9 [facility] [address] [place] [address] Jul, Chronic pain 338.29 [facility] [address] [address] Jul, Chronic pain G89.29 [facility] [address] [address] Jun, Poison josep L23.7 [place] [address] [address] Jun, Allergic contact dermatitis due to plants, except food L23.7 [place] [address] [address] Jun, Essential hypertension I10 ; Chronic pain G89.29 ; GERD (gastroesophageal reflux disease) K21.9 and Numbness and tingling in hands R20.2 [facility] [address] [address] May, [place] [address] [address] Apr, [place] [address] [address] Mar, [facility] [address] [address] Feb, Abdominal pain, left lateral 789.09 and Constipation 564.00 [place] [address] [address] Feb, Depressive disorder, not els ewhere classified 311 and No condition on [place] V71.09 [facility] [address] [address] Feb, Spider bite 989.5 and Depres homar 311 [facility] [address] [facility] [id number] [address] [place] [address] Feb, [facility] [address] [facility] [id number] [address] [place] [address] Feb, Chronic pain 338.29 ; Arthro zonia 716.90 and GERD (gastroesophageal reflux disease) 530.81 [facility] [address] [facility] [id number] [address] [place] [address] Jan, Insect bites 919.4 [facility] [address] [facility] [id number] [address] [place] [address] Jan, [facility] [address] [place] [id number] [address] [place] [address] December, Skin infection, bacterial 68 6.9 ; Conjunctivitis 372.30 and Insect bites 919.4 [facility] [address] [facility] [id number] [address] [place] [address] December, Chronic pain 338.29 ; Arthro zonia 716.90 ; Skin infection, bacterial 686.9 and Conjunctivitis 372.30 [facility] [address] [facility] [id number] [address] [place] [address] December, [facility] [address] [facility] [id number] [address] [place] [address] Nov, [facility] [address] [facility] [id number] [address] [place] [address] Nov, [facility] [address] [facility] [id number] [address] [place] [address] Oct, [facility] [address] [facility] [id number] [address] [place] [address] Oct, [facility] [address] [facility] [id number] [address] [place] [address] Sep, [facility] [address] [facility] [id number] [address] [place] [address] Sep, [facility] [address] [id number] [address] [place] [address], [place] [address] Aug, [facility] [address] [id number] [address] [place] [address], [place] [address] Aug, [facility] [address] [id number] [address] [place] [address], [place] [address] Aug, [facility] [address] [id number] [address] [place] [address], [place] [address] Aug, [facility] [address] [id number] [address] [place] [address], [place] [address] Jul, [facility] [address] [id number] [address] [place] [address], [place] [address] Jul, [facility] [address] [id number] [address] [place] [address], [place] [address] Jul, [facility] [address] [id number] [address] [place] [address], [place] [address] Jul, [facility] [address] [id number] [address] [place] [address], [place] [address] Jul, [facility] [address] [id number] [address] [place] [address], [place] [address] Jul, [facility] [address] [id number] [address] [place] [address], [place] [address] Jul, [facility] [address] [id number] [address] [place] [address], [place] [address] Jul, [facility] [address] [id number] [address] [place] [address], [place] [address] Jul, [facility] [address] [id number] [address] [place] [address], [place] [address] Jun, [facility] [address] [id number] [address] [place] [address], [place] [address] Jun, [facility] [address] [id number] [address] [place] [address], [place] [address] Jun, [facility] [address] [id number] [address] [place] [address], [place] [address] Jun, [facility] [address] [id number] [address] [place] [address], [place] [address] Jun, [facility] [address] [id number] [address] [place] [address], [place] [address] Jun, [facility] [address] [id number] [address] [place] [address], [place] [address] Jun, [facility] [address] [id number] [address] [place] [address], [place] [address] Jun, [facility] [address] [id number] [address] [place] [address], [place] [address] May, [facility] [address] [id number] [address] [place] [address], [place] [address] May, [facility] [address] [id number] [address] [place] [address], [place] [address] May, [facility] [address] [id number] [address] [place] [address], [place] [address] May, [facility] [address] [id number] [address] [place] [address], [place] [address] May, [facility] [address] [id number] [address] [place] [address], [place] [address] Apr, [facility] [address] [id number] [address] [place] [address], [place] [address] 26 Apr, 2014 [facility] [address] [id number] [address] [place] [address], [place] [address] 25 Apr, 2014 [facility] [address] [id number] [address] [place] [address], [place] [address] 25 Apr, 2014 [facility] [address] [id number] [address] [place] [address], [place] [address] 18 Apr, 2014 [facility] [address] [id number] [address] [place] [address] [place] [address] 18 Apr, 2013 [facility] [address] [id number] [address] [place] [address], [place] [address] 18 Apr, 2013 [facility] [address] [id number] [address] [place] [address], [place] [address] 18 Apr, 2014 [facility] [address] [id number] [address] [place] [address], [place] [address] 04 Apr, 2014 [facility] [address] [id number] [address] [place] [address], [place] [address] Apr, [facility] [address] [id number] [address] [place] [address], [place] [address] Mar, [facility] [address] [id number] [address] [place] [address], [place] [address] Mar, [facility] [address] [id number] [address] [place] [address], [place] [address] Mar, [facility] [address] [id number] [address] [place] [address], [place] [address] Mar, [facility] [address] [id number] [address] [place] [address], [place] [address] Mar, [facility] [address] [id number] [address] [place] [address], [place] [address] Mar, [facility] [address] [id number] [address] [place] [address], [place] [address] Feb, [facility] [address] [id number] [address] [place] [address], [place] [address] Feb, [facility] [address] [id number] [address] [place] [address], [place] [address] Jan, [facility] [address] [id number] [address] [place] [address], [place] [address] Jan, [facility] [address] [id number] [address] [place] [address], [place] [address] Jan, [facility] [address] [id number] [address] [place] [address], [place] [address] Jan, [facility] [address] [id number] [address] [place] [address], [place] [address] December, [facility] [address] [id number] [address] [place] [address], [place] [address] December, [facility] [address] [id number] [address] [place] [address], [place] [address] December, [facility] [address] [id number] [address] [place] [address], [place] [address] December, [facility] [address] [id number] [address] [place] [address], [place] [address] December, [facility] [address] [id number] [address] [place] [address], [place] [address] December, [facility] [address] [id number] [address] [place] [address], [place] [address] December, [facility] [address] [id number] [address] [place] [address], [place] [address] December, [facility] [address] [id number] [address] [place] [address], [place] [address] December, [facility] [address] [id number] [address] [place] [address], [place] [address] Nov, [facility] [address] [id number] [address] [place] [address], [place] [address] Nov, [facility] [address] [id number] [address] [place] [address], [place] [address] Nov, [facility] [address] [id number] [address] [place] [address], [place] [address] Nov, [facility] [address] [id number] [address] [place] [address], [place] [address] Nov, [facility] [address] [id number] [address] [place] [address], [place] [address] Nov, [facility] [address] [id number] [address] [place] [address], [place] [address] Nov, [facility] [address] [id number] [address] [place] [address], [place] [address] Nov, [facility] [address] [id number] [address] [place] [address], [place] [address] Nov, [facility] [address] [id number] [address] [place] [address], [place] [address] Nov, [facility] [address] [id number] [address] [place] [address], [place] [address] Oct, [facility] [address] [id number] [address] [place] [address], [place] [address] Oct, [facility] [address] [id number] [address] [place] [address], [place] [address] Sep, [facility] [address] [id number] [address] [place] [address], [place] [address] Sep, [facility] [address] [id number] [address] [place] [address], [place] [address] Aug, [facility] [address] [id number] [address] [place] [address], [place] [address] Aug, [facility] [address] [id number] [address] [place] [address], [place] [address] Aug, [facility] [address] [id number] [address] [place] [address], [place] [address] Aug, [facility] [address] [id number] [address] [place] [address], [place] [address] Jul, [facility] [address] [id number] [address] [place] [address], [place] [address] Jul, [facility] [address] [id number] [address] [place] [address], [place] [address] Jul, [facility] [address] [id number] [address] [place] [address], [place] [address] Jul, [facility] [address] [id number] [address] [place] [address], [place] [address] Jun, [facility] [address] [id number] [address] [place] [address], [place] [address] Jun, [facility] [address] [id number] [address] [place] [address], [place] [address] May, [facility] [address] [id number] [address] [place] [address], [place] [address] May, [facility] [address] [id number] [address] [place] [address], [place] [address] May, [facility] [address] [id number] [address] [place] [address], [place] [address] May, [facility] [address] [id number] [address] [place] [address], [place] [address] May, [facility] [address] [id number] [address] [place] [address], [place] [address] May, [facility] [address] [id number] [address] [place] [address], [place] [address] 30 Apr, 2013 [facility] [address] [id number] [address] [place] [address], [place] [address] 23 Apr, 2013 [facility] [address] [id number] [address] [place] [address], [place] [address] 03 Apr, 2013 [facility] [address] [id number] [address] [place] [address], [place] [address] Feb, [facility] [address] [id number] [address] [place] [address], [place] [address] Jan, [facility] [address] [id number] [address] [place] [address], [place] [address] Jan, [facility] [address] [id number] [address] [place] [address], [place] [address] Jan, [facility] [address] [id number] [address] [place] [address], [place] [address] 14 Jan, 2013 [facility] [address] [id number] [address] [place] [address], [place] [address] December, [facility] [address] [id number] [address] [place] [address], [place] [address] December, [facility] [address] [id number] [address] [place] [address], [place] [address] Nov, [facility] [address] [id number] [address] [place] [address], [place] [address] Nov, [facility] [address] [id number] [address] [place] [address], [place] [address] Nov, [facility] [address] [id number] [address] [place] [address], [place] [address] Nov, [facility] [address] [id number] [address] [place] [address], [place] [address] Nov, [facility] [address] [id number] [address] [place] [address], [place] [address] Nov, [facility] [address] [id number] [address] [place] [address], [place] [address] Nov, [facility] [address] [id number] [address] [place] [address], [place] [address] 27 Oct, 2012 [facility] [address] [id number] [address] [place] [address], [place] [address] 18 Oct, 2012 [facility] [address] [id number] [address] [place] [address], [place] [address] 14 Oct, 2012 [facility] [address] [id number] [address] [place] [address], [place] [address] 13 Oct, [address] [facility] [address] [id number] [address] [place] [address], [place] [address] 12 Oct, 2012 [facility] [address] [id number] [address] [place] [address] Oct, [facility] [address] [id number] [address] [place] [address], [place] [address] Oct, [facility] [address] [id number] [address] [place] [address], [place] [address] Sep, [facility] [address] [id number] [address] [place] [address], [place] [address] Sep, [facility] [address] [id number] [address] [place] [address], [place] [address] Aug, [facility] [address] [id number] [address] [place] [address], [place] [address] Aug, [facility] [address] [id number] [address] [place] [address], [place] [address] Jul, [facility] [address] [id number] [address] [place] [address] Jul, [facility] [address] [id number] [address] [place] [address], [place] [address] Jul, [facility] [address] [id number] [address] [place] [address], [place] [address] Jul, [facility] [address] [id number] [address] [place] [address], [place] [address] Jul, [facility] [address] [id number] [address] [place] [address] Jul, [facility] [address] [id number] [address] [place] [address] Jul, [facility] [address] [id number] [address] [place] [address] Jul, [facility] [address] [id number] [address] [place] [address] Jun, [facility] [address] [id number] [address] [place] [address] Jun, IMMUNIZATIONS No Known Immunizations SOCIAL HISTORY Never Assessed REASON FOR VISIT Controlled Med Refill 06/05/18 PLAN OF CARE VITAL SIGNS MEDICATIONS Medication Instructions Dosage Frequency Start Date End Date Duration S libby Hydrocodone-Acetaminophen 5-325 MG Orally 3 times a day prn must last 4 weeks 1 Tablet May, 28 days Active RESULTS No Results PROCEDURES [...] -- total 11/2012 Hospitalization History ER- in [place] due to left knee 8
--- OUTSIDE RECORDS SUMMARY | 2020-02-11 03:22 | XMS REPORT ---
Author Author Madeline MANCUSO Organization [facility] Address [address] [place] [address] Care Team Providers Care Cis Coordinator Name Role Phone JASON MANCUSO Unavailable PROBLEMS Type Condition ICD9-CM Code ZFX22-HC Code Onset Dates Condition S tatus SNOMED Code Problem Chronic pain G89.29 Active 8710300 1 Problem Pre-diabetes R73.09 Active 6174592 02 Problem Essential hypertension I10 Active 58618172 Problem BMI 45.0-49.9, adult Z68.42 Active 169063285 Problem Numbness and tingling in hands R20.2 Active 998296541 Problem GERD (gastroesophageal reflux disease) K21.9 Active 317157036 Problem Stasis dermatitis of both legs I87.2 Active 85019739 Problem History of abnormal cervical Pap smear Z87.898 Active 352630791 ALLERGIES No Information ENCOUNTERS Encounter Location Date Diagnosis [place] [address] [facility] [id number] [address] [place] [address] May, BMI 40.0-44.9, adult Z68.41 ; Other chronic pain G89.29 ; Pain in right hip M25.551 and Acute pain of left knee M25.562 [place] [address] [facility] [id number] [address] [place] [address] May, Chronic pain G89.29 [place] [address] [facility] [id number] [address] [place] [address] Apr, Chronic pain G89.29 [place] [address] [facility] [id number] [address] [place] [address] Mar, Poison josep L23.7 [place] [address] [facility] [id number] [address] [place] [address] Mar, Chronic pain G89.29 [facility] [address] [id number] [address] [place] [address] Feb, Chronic pain G89.29 [facility] [address] [facility] [id number] [address] [place] [address] Feb, Poison josep L23.7 [facility] [address] [facility] [id number] [address] [place] [address] Jan, Chronic pain G89.29 [facility] [address] [facility] [id number] [address] [place] [address] December, Chronic pain G89.29 [facility] [address] [facility] [id number] [address] [place] [address] Nov, Long-term use of high-risk m edication Z79.899 [facility] [address] [facility] [id number] [address] [place] [address] Nov, Chronic pain G89.29 [facility] [address] [facility] [id number] [address] [place] [address] Oct, Chronic pain G89.29 ; Pre-di abetes R73.09 ; Long-term use of high- risk medication Z79.899 ; Allergic rhinitis, unspecified seasonality, unspecified trigger J30.9 ; BMI 45.0-49.9, adult Z68.42 and Essential hypertension I10 [facility] [address] [facility] [id number] [address] [place] [address] Oct, Chronic pain G89.29 [facility] [address] [facility] [id number] [address] [place] [address] Sep, Chronic pain G89.29 [facility] [address] [facility] [id number] [address] [place] [address] Aug, Chronic pain G89.29 [facility] [address] [facility] [id number] [address] [place] [address] Jul, [facility] [address] [facility] [id number] [address] [place] [address] Jul, [facility] [address] [place] [id number] [address] [place] [address] Jun, Chronic pain G89.29 ; BMI 45 .0-49.9, adult Z68.42 ; Pre-diabetes R73.09 ; Essential hypertension I10 ; GERD (gastroesophageal reflux disease) K21.9 ; Yeast dermatitis B37.2 ; Dysuria R30.0 ; Acute non-recurrent maxillary sinusitis J01.00 and Acute cystitis with hematuria N30.01 [place] [address] [place] [id number] [address] [place] [address] Jun, Chronic pain G89.29 [place] [address] [place] [id number] [place] [address] Jun, Acute non-recurrent maxillar y sinusitis J01.00 and BMI 45.0-49.9, adult Z68.42 [place] [address] [address] May, [place] [address] [place] [id number] [address] [place] [address] May, Chronic pain G89.29 [place] [address] [place] [id number] [address] [place] [address] May, [place] [address] [place] [id number] [address] [place] [address] Apr, Chronic pain G89.29 [facility] [address] [place] [id number] [address] [place] [address] Mar, [place] [address] [place] [id number] [address] [place] [address] Mar, Essential hypertension I10 a nd Pre-diabetes R73.09 [facility] [address] [place] [id number] [address] [place] [address] Mar, Chronic pain G89.29 ; Essent ial hypertension I10 ; Depressive disorder, not elsewhere classified F32.9 ; GERD (gastroesophageal reflux disease) K21.9 ; Pre-diabetes R73.09 ; Stasis dermatitis of both legs I87.2 and Acute non-recurrent maxillary sinusitis J01.00 [place] [address] [place] [id number] [address] [place] [address] Mar, Chronic pain G89.29 [place] [address] [place] [id number] [address] [place] [address] Mar, Achilles tendinitis of right lower extremity M76.61 and Tinea corporis B35.4 [place] [address] [place] [id number] [address] [place] [address] Feb, Yeast dermatitis B37.2 [place] [address] [place] [id number] [place] [address] Feb, Candidal intertrigo B37.2 an d Acute right ankle pain M25.571 [place] [address] [place] [id number] [address] [place] [address] Feb, Chronic pain G89.29 [place] [address] [place] [id number] [address] [place] [address] Jan, [place] [address] [place] [id number] [place] [address] Jan, Chronic pain G89.29 [place] [address] [place] [id number] [place] [address] December, Chronic pain G89.29 ; Essent ial hypertension I10 ; Depressive disorder, not elsewhere classified F32.9 ; GERD (gastroesophageal reflux disease) K21.9 ; Pre-diabetes R73.09 ; Screening breast examination Z12.39 ; Stasis dermatitis of both legs I87.2 and Yeast dermatitis B37.2 [place] [address] [place] [id number] [address] [place] [address] Nov, Chronic pain G89.29 [place] [address] [place] [id number] [address] [place] [address] Nov, Cellulitis of left lower ext remity L03.116 [place] [address] [place] [id number] [address] [place] [address] Nov, Cellulitis of left lower ext remity L03.116 [place] [address] [place] [id number] [address] [place] [address] Oct, Yeast dermatitis B37.2 [place] [address] [address] Oct, Chronic pain G89.29 [place] [address] [address] Sep, Chronic pain G89.29 ; Essent ial hypertension I10 ; Depressive disorder, not elsewhere classified F32.9 and GERD (gastroesophageal reflux disease) K21.[address] [address] Aug, Chronic pain G89.29 [place] [address] [address] Aug, Cough R05 ; Rash R21 and Vinay h and nonspecific skin eruption R21 [address] [address] Jul, Chronic pain G89.29 [place] [address] [address] Jun, Chronic pain G89.29 ; Bronch itis J40 ; Essential hypertension I10 ; Depressive disorder, not elsewhere classified F32.9 ; GERD (gastroesophageal reflux disease) K21.9 and History of long-term use of multiple prescription drugs Z92.29 [place] [address] [address] Jun, Bronchitis J40 ; Chills R68. 83 and Sore throat J02.[address] [address] May, [facility] [address] [place] [id number] [address] [place] [address] Apr, [facility] [address] [address] Apr, Acute mucoid otitis media of both ears H65.113 [place] [address] [address] Apr, Yeast dermatitis B37.2 [address]ia R31.9 [facility] [address] [address] Mar, [place] [address] [address] Mar, [place] [address] [address] Feb, Left anterior knee pain M25. 562 [place] [address] [address] Feb, Chronic pain G89.29 ; Essent ial hypertension I10 ; Depressive disorder, not elsewhere classified F32.9 ; GERD (gastroesophageal reflux disease) K21.9 and History of long-term use of multiple prescription drugs Z92.29 [place] [address] [address] Jan, [place] [address] [address] Jan, Well woman exam Z01.419 ; BM I 45.0-49.9, adult Z68.42 ; Family history of diabetes mellitus Z83.3 and Chronic pain G89.29 [place] [address] [address] December, Chronic pain G89.29 ; Essent ial hypertension I10 ; Depressive disorder, not elsewhere classified F32.9 ; GERD (gastroesophageal reflux disease) K21.9 ; 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 ; History of long-term use of multiple prescription drugs Z92.[address] [facility] [address] [address] Oct, [place] [address] [address] 07 Oct, 2015 Well woman exam Z01.419 [...] smear Z12.4 and No natural teeth K00.0 [place] [address] [address] Oct, [place] [address] [address] Sep, Chronic pain G89.29 ; Essent ial hypertension I10 ; GERD (gastroesophageal reflux disease) K21.9 ; 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 ; Skin infection L08.9 and History of long-term use of multiple prescription drugs Z92.29 [place] [address] [address] Aug, [place] [address] [address] Jul, [place] [address] [address] Jul, [place] [address] [address] Jul, Upper respiratory infection J06.9 [place] [address] [address] Jul, Depressive disorder, not els ewhere classified F32.9 [place] [address] [address] Jul, Chronic pain 338.29 [place] [address] [place] [id number] Jul, Chronic pain G89.29 [place] [address] [address] 16 Jun, 2015 Poison josep L23.7 [place] [address] [address] Jun, Allergic contact dermatitis due to plants, except food L23.7 [place] [address] [address] Jun, Essential hypertension I10 ; Chronic pain G89.29 ; GERD (gastroesophageal reflux disease) K21.9 and Numbness and tingling in hands R20.2 [place] [address] [address] May, [place] [address] [address] Apr, [place] [address] [address] Mar, [place] [address] [address] Feb, Abdominal pain, left lateral 789.09 and Constipation 564.00 [place] [address] [address] Feb, Depressive disorder, not els ewhere classified 311 and No condition on [place] II V71.09 [place] [address] [address] Feb, Spider bite 989.5 and Depres homar 311 [place] [address] [address] Feb, [place] [address] [place] [id number] [place] [address] Feb, Chronic pain 338.29 ; Arthro zonia 716.90 and GERD (gastroesophageal reflux disease) 530.81 [facility] [address] [facility] [id number] [address] [place] [address] Jan, Insect bites 919.4 [facility] [address] [facility] [id number] [address] [place] [address] Jan, [facility] [address] [facility] [id number] [place] [address] December, Skin infection, bacterial 68 6.9 ; Conjunctivitis 372.30 and Insect bites 919.4 [facility] [address] [place] [id number] [address] [place] [address] December, Chronic pain 338.29 ; Arthro zonia 716.90 ; Skin infection, bacterial 686.[address] [facility] [address] [place] [id number] [address] [place] [address] December, [facility] [address] [facility] [id number] [address] [place] [address] Nov, [facility] [address] [place] [id number] [address] [place] [address] Nov, [facility] [address] [facility] [id number] [address] [place] [address] Oct, [facility] [address] [facility] [id number] [address] [place] [address] Oct, [facility] [address] [facility] [id number] [address] [place] [address] Sep, [facility] [address] [facility] [id number] [address] [place] [address] Sep, [facility] [address] [facility] [id number] [address] [place] [address] Aug, [facility] [address] [id number] [address] [place] [address], [place] [address] Aug, [facility] [address] [id number] [address] [place] [address], [place] [address] Aug, [facility] [address] [id number] [address] [place] [address], [place] [address] Aug, [facility] [address] [id number] [address] [place] [address], [place] [address] 30 Jul, 2014 [facility] [address] [id number] [address] [place] [address], [place] [address] Jul, [facility] [address] [id number] [address] [place] [address], [place] [address] 29 Jul, 2014 [facility] [address] [id number] [address] [place] [address], [place] [address] 15 Jul, 2014 [facility] [address] [id number] [address] [place] [address], [place] [address] Jul, [facility] [address] [id number] [address] [place] [address], [place] [address] Jul, [facility] [address] [id number] [address] [place] [address], [place] [address] Jul, [facility] [address] [id number] [address] [place] [address], [place] [address] Jul, [facility] [address] [id number] [address] [place] [address], [place] [address] Jul, [facility] [address] [id number] [address] [place] [address], [place] [address] Jun, [facility] [address] [id number] [address] [place] [address], [place] [address] Jun, [facility] [address] [id number] [address] [place] [address], [place] [address] Jun, [facility] [address] [id number] [address] [place] [address], [place] [address] Jun, [facility] [place] [facility] [address] [id number] [address] [place] [address], [place] [address] Jun, [facility] [place] [facility] [address] [id number] [address] [place] [address], [place] [address] Jun, [facility] [place] [facility] [address] [id number] [address] [place] [address], [place] [address] Jun, [facility] [place] [facility] [address] [id number] [address] [place] [address], [place] [address] Jun, [facility] [place] [facility] [address] [id number] [address] [place] [address], [place] [address] May, [facility] [place] [facility] [address] [id number] [address] [place] [address], [place] [address] May, [facility] [place] [facility] [address] [id number] [address] [place] [address], [place] [address] May, [facility] [place] [facility] [address] [id number] [address] [place] [address], [place] [address] May, [facility] [place] [facility] [address] [id number] [address] [place] [address], [place] [address] May, [facility] [place] [facility] [address] [id number] [address] [place] [address], [place] [address] 26 Apr, 2014 [facility] [place] [facility] [address] [id number] [address] [place] [address], [place] [address] 26 Apr, 2014 [facility] [place] [facility] [address] [id number] [address] [place] [address], [place] [address] 25 Apr, 2013 [facility] [place] [facility] [address] [id number] [address] [place] [address], [place] [address] 25 Apr, 2014 [facility] [place] [facility] [address] [id number] [address] [place] [address], [place] [address] 18 Apr, 2014 [facility] [place] [facility] [address] [id number] [address] [place] [address], [place] [address] 18 Apr, 2014 [facility] [place] [facility] [address] [id number] [address] [place] [address], [place] [address] Apr, [facility] [place] [facility] [address] [id number] [address] [place] [address], [place] [address] 18 Apr, 2014 [facility] [place] [facility] [address] [id number] [address] [place] [address], [place] [address] Apr, [facility] [place] [facility] [address] [id number] [address] [place] [address], [place] [address] Apr, [facility] [place] [facility] [address] [id number] [address] [place] [address], [place] [address] Mar, [facility] [place] [facility] [address] [id number] [address] [place] [address], [place] [address] Mar, [facility] [place] [facility] [address] [id number] [address] [place] [address], [place] [address] Mar, [facility] [place] [facility] [address] [id number] [address] [place] [address], [place] [address] Mar, [facility] [place] [facility] [address] [id number] [address] [place] [address], [place] [address] Mar, [facility] [place] [facility] [address] [id number] [address] [place] [address], [place] [address] Mar, [facility] [place] [facility] [address] [id number] [address] [place] [address], [place] [address] Feb, [facility] [place] [facility] [address] [id number] [address] [place] [address], [place] [address] Feb, [facility] [place] [facility] [address] [id number] [address] [place] [address], [place] [address] Jan, [facility] [place] [facility] [address] [id number] [address] [place] [address], [place] [address] Jan, [facility] [place] [facility] [address] [id number] [address] [place] [address], [place] [address] Jan, [facility] [place] [facility] [address] [id number] [address] [place] [address], [place] [address] Jan, [facility] [place] [facility] [address] [id number] [address] [place] [address], [place] [address] December, [facility] [address] [id number] [address] [place] [address], [place] [address] December, [facility] [address] [id number] [address] [place] [address], [place] [address] December, [facility] [address] [id number] [address] [place] [address], [place] [address] December, [facility] [address] [id number] [address] [place] [address], [place] [address] December, [facility] [address] [id number] [address] [place] [address], [place] [address] December, [facility] [address] [id number] [address] [place] [address], [place] [address] December, [facility] [address] [id number] [address] [place] [address], [place] [address] December, [facility] [address] [id number] [address] [place] [address], [place] [address] December, [facility] [address] [id number] [address] [place] [address], [place] [address] Nov, [facility] [address] [id number] [address] [place] [address], [place] [address] Nov, [facility] [address] [id number] [address] [place] [address], [place] [address] Nov, [facility] [address] [id number] [address] [place] [address], [place] [address] Nov, [facility] [address] [id number] [address] [place] [address], [place] [address] Nov, [facility] [address] [id number] [address] [place] [address], [place] [address] Nov, [facility] [address] [id number] [address] [place] [address], [place] [address] Nov, [facility] [address] [id number] [address] [place] [address], [place] [address] Nov, [facility] [address] [id number] [address] [place] [address], [place] [address] Nov, [facility] [address] [id number] [address] [place] [address], [place] [address] Nov, [facility] [address] [id number] [address] [place] [address], [place] [address] Oct, [facility] [address] [id number] [address] [place] [address], [place] [address] Oct, [facility] [address] [id number] [address] [place] [address], [place] [address] Sep, [facility] [address] [id number] [address] [place] [address], [place] [address] Sep, [facility] [address] [id number] [address] [place] [address], [place] [address] Aug, [facility] [address] [id number] [address] [place] [address], [place] [address] Aug, [facility] [address] [id number] [address] [place] [address], [place] [address] Aug, [facility] [address] [id number] [address] [place] [address], [place] [address] Aug, [facility] [address] [id number] [address] [place] [address], [place] [address] Jul, [facility] [address] [id number] [address] [place] [address], [place] [address] Jul, [facility] [address] [id number] [address] [place] [address], [place] [address] Jul, [facility] [address] [id number] [address] [place] [address], [place] [address] Jul, [facility] [address] [id number] [address] [place] [address], [place] [address] Jun, [facility] [address] [id number] [address] [place] [address], [place] [address] Jun, [facility] [address] [id number] [address] [place] [address], [place] [address] May, [facility] [address] [id number] [address] [place] [address], [place] [address] May, [facility] [address] [id number] [address] [place] [address], [place] [address] May, [facility] [address] [id number] [address] [place] [address], [place] [address] May, [facility] [address] [id number] [address] [place] [address], [place] [address] May, [facility] [address] [id number] [address] [place] [address], [place] [address] May, [facility] [address] [id number] [address] [place] [address], [place] [address] 30 Apr, 2013 [facility] [address] [id number] [address] [place] [address], [place] [address] 23 Apr, 2013 [facility] [address] [id number] [address] [place] [address], [place] [address] 03 Apr, 2013 [facility] [address] [id number] [address] [place] [address], [place] [address] Feb, [facility] [address] [id number] [address] [place] [address], [place] [address] 27 Jan, 2013 [facility] [address] [id number] [address] [place] [address], [place] [address] 18 Jan, 2013 [facility] [address] [id number] [address] [place] [address], [place] [address] 17 Jan, 2013 [facility] [address] [id number] [address] [place] [address], [place] [address] 14 Jan, 2013 [facility] [address] [id number] [facility] [place] [address] December, [facility] [address] [id number] [address] [place] [place] [address], [place] [address] December, [facility] [address] [id number] [address] [place] [address], [place] [phone] Nov, [facility] [address] [id number] [address] [place] [address], [place] [address] Nov, [facility] [address] [id number] [address] [place] [address], [place] [phone] Nov, [facility] [address] [id number] [address] [place] [address], [place] [address] Nov, [facility] [address] [id number] [address] [place] [address], [place] [phone] Nov, [facility] [address] [id number] [address] [place] [address], [place] [phone] Nov, [facility] [address] [id number] [address] [place] [address], [place] [phone] Nov, [facility] [address] [id number] [address] [place] [address], [place] [phone] 27 Oct, 2012 [facility] [address] [id number] [address] [place] [address], [place] [phone] 18 Oct, 2012 [facility] [address] [id number] [address] [place] [address], [place] [id number] 14 Oct, 2012 [facility] [address] [id number] [address] [place] [address], [place] [address] 13 Oct, 2012 [facility] [address] [id number] [address] [place] [address], [place] [phone] 12 Oct, 2012 [facility] [address] [id number] [address] [place] [address], [place] [phone] 11 Oct, 2012 [facility] [address] [id number] [address] [place] [address], [place] [address] Oct, [facility] [address] [id number] [address] [place] [phone] Sep, [facility] [address] [id number] [address] [place] [phone] Sep, [facility] [address] [id number] [address] [place] [phone] Aug, [facility] [address] [id number] [address] [place] [phone] Aug, [facility] [address] [id number] [address] [place] [phone] Jul, [facility] [address] [id number] [address] [place] [phone] Jul, [facility] [address] [id number] [address] [place] [phone] Jul, [facility] [address] [id number] [address] [place] [phone] Jul, [facility] [address] [id number] [address] [place] [phone] Jul, [facility] [address] [id number] [address] [place] [phone] Jul, [facility] [address] [id number] [address] [place] [phone] Jul, [facility] [address] [id number] [address] [place] [phone] Jul, [facility] [address] [id number] [address] [place] [phone] Jun, [facility] [address] [id number] [address] [place] [phone] Jun, IMMUNIZATIONS No Known Immunizations SOCIAL HISTORY Never Assessed REASON FOR VISIT Controlled Med Refill 05/08/18 PLAN OF CARE VITAL SIGNS MEDICATIONS Medication [...] -- total 11/2012 Hospitalization History ER- in [place] due to left knee 8
--- OUTSIDE RECORDS SUMMARY | 2020-02-11 03:22 | XMS REPORT ---
Author Author Madeline MANCUSO Organization [facility] Address [address] [place] [address] Care Team Providers Care Fisher Mussel Name Role Phone JASON MANCUSO Unavailable PROBLEMS Type Condition ICD9-CM Code [id number] Code Onset Dates Condition S tatus SNOMED Code Problem Chronic pain G89.29 Active 8330356 1 Problem Pre-diabetes R73.09 Active 7832788 02 Problem Essential hypertension I10 Active 16522985 Problem BMI 45.0-49.9, adult Z68.42 Active 047255500 Problem Numbness and tingling in hands R20.2 Active 956664485 Problem GERD (gastroesophageal reflux disease) K21.9 Active 522073996 Problem Stasis dermatitis of both legs I87.2 Active 19336172 Problem History of abnormal cervical Pap smear Z87.898 Active 406015768 ALLERGIES Substance Reaction Event Type Date Status PredniSONE hives Drug Allergy May, Active Meloxicam hives Drug Allergy May, Active Levaquin itching Drug Allergy May, Active Diflucan itching Drug Allergy May, Active ENCOUNTERS Encounter Location Date Diagnosis [facility] [address] [facility] [id number] [address] [place] [id number] May, BMI 40.0-44.9, adult Z68.41 ; Other chronic pain G89.29 ; Pain in right hip M25.551 and Acute pain of left knee M25.562 [facility] [address] [facility] [id number] [address] [place] [id number] May, Chronic pain G89.29 [facility] [address] [facility] [id number] [address] [place] [id number] Apr, Chronic pain G89.29 [facility] [address] [facility] [id number] [address] [place] [id number] Mar, Poison josep L23.7 [facility] [address] [facility] [id number] [address] [place] [id number] Mar, Chronic pain G89.29 [facility] [address] [facility] [id number] [address] [place] [id number] Feb, Chronic pain G89.29 [facility] [address] [facility] [id number] [address] [place] [id number] Feb, Poison josep L23.7 [facility] [address] [facility] [id number] [address] [place] [id number] Jan, Chronic pain G89.29 [place] [address] [address] [facility] [id number] [address] [place] [id number] December, Chronic pain G89.29 [facility] [address] [facility] [id number] [address] [place] [id number] Nov, Long-term use of high-risk m edication Z79.899 [facility] [address] [facility] [id number] [address] [place] [id number] Nov, Chronic pain G89.29 [place] [address] [address] [facility] [id number] [address] [place] [id number] Oct, Chronic pain G89.29 ; Pre-di abetes R73.09 ; Long-term use of high- risk medication Z79.899 ; Allergic rhinitis, unspecified seasonality, unspecified trigger J30.9 ; BMI 45.0-49.9, adult Z68.42 and Essential hypertension I10 [facility] [address] [facility] [id number] [address] [place] [id number] Oct, Chronic pain G89.29 [facility] [address] [facility] [id number] [address] [place] [id number] Sep, Chronic pain G89.29 [facility] [address] [facility] [id number] [address] [place] [id number] Aug, Chronic pain G89.29 [facility] [address] [place] [id number] [address] [place] [id number] Jul, [facility] [address] [address] Jul, [facility] [address] [place] [id number] [address] [place] [id number] Jun, Chronic pain G89.29 ; BMI 45 .0-49.9, adult Z68.42 ; Pre-diabetes R73.09 ; Essential hypertension I10 ; GERD (gastroesophageal reflux disease) K21.9 ; Yeast dermatitis B37.2 ; Dysuria R30.0 ; Acute non-recurrent maxillary sinusitis J01.00 and Acute cystitis with hematuria N30.01 [place] [address] [address] [place] [id number] [address] [place] [id number] Jun, Chronic pain G89.29 [place] [address] [address] Jun, Acute non-recurrent maxillar y sinusitis J01.00 and BMI 45.0-49.9, adult Z68.42 [place] [address] [address] May, [place] [address] [place] [id number] [place] [address] May, Chronic pain G89.29 [place] [address] [place] [id number] [address] [place] [address] May, [place] [address] [place] [id number] [address] [place] [id number] Apr, Chronic pain G89.29 [place] [address] [place] [id number] [address] [place] [address] Mar, [place] [address] [place] [id number] [address] [place] [id number] Mar, Essential hypertension I10 a nd Pre-diabetes R73.09 [place] [address] [place] [id number] [address] [place] [id number] 15 Mar, 2017 Chronic pain G89.29 ; Essent ial hypertension I10 ; Depressive disorder, not elsewhere classified F32.9 ; GERD (gastroesophageal reflux disease) K21.9 ; Pre-diabetes R73.09 ; Stasis dermatitis of both legs I87.2 and Acute non-recurrent maxillary sinusitis J01.00 [place] [id number] [place] [id number] 11 Mar, 2017 Chronic pain G89.29 [place] [address] [place] [id number] [address] [place] [id number] 07 Mar, 2017 Achilles tendinitis of right lower extremity M76.61 and Tinea corporis B35.4 [place] [address] [place] [id number] [address] [place] [id number] 17 Feb, 2017 Yeast dermatitis B37.2 [place] [address] [place] [id number] [address] [place] [id number] Feb, Candidal intertrigo B37.2 an d Acute right ankle pain M25.571 [place] [address] [place] [id number] [place] [address] 12 Feb, 2017 Chronic pain G89.29 [place] [address] [place] [id number] [address] [place] [id number] 16 Jan, 2017 [place] [address] [place] [id number] [address] [place] [id number] Jan, Chronic pain G89.29 [place] [address] [place] [id number] [address] [place] [address] December, Chronic pain G89.29 ; Essent ial hypertension I10 ; Depressive disorder, not elsewhere classified F32.9 ; GERD (gastroesophageal reflux disease) K21.9 ; Pre-diabetes R73.09 ; Screening breast examination Z12.39 ; Stasis dermatitis of both legs I87.2 and Yeast dermatitis B37.2 [place] [address] [place] [id number] [address] [place] [address] Nov, Chronic pain G89.29 [facility] [address] [place] [id number] [address] [place] [address] Nov, Cellulitis of left lower ext remity L03.116 [place] [address] [place] [id number] [address] [place] [address] Nov, Cellulitis of left lower ext remity L03.116 [place] [address] [place] [id number] [address] [place] [id number] Oct, Yeast dermatitis B37.2 [place] [address] [address] Oct, Chronic pain G89.29 [place] [address] [place] [id number] [place] [address] Sep, Chronic pain G89.29 ; Essent ial hypertension I10 ; Depressive disorder, not elsewhere classified F32.9 and GERD (gastroesophageal reflux disease) K21.9 [place] [address] [address] Aug, Chronic pain G89.29 [place] [address] [address] Aug, Cough R05 ; Rash R21 and Vinay h and nonspecific skin eruption R21 [place] [address] [address] Jul, Chronic pain G89.29 [place] [address] [place] [id number] [address] [place] [address] Jun, Chronic pain G89.29 ; Bronch itis J40 ; Essential hypertension I10 ; Depressive disorder, not elsewhere classified F32.9 ; GERD (gastroesophageal reflux disease) K21.9 and History of long-term use of multiple prescription drugs Z92.29 [place] [address] [place] [id number] [address] [place] [id number] 17 Nov, 2016 Bronchitis J40 ; Chills R68. 83 and Sore throat J02.9 [place] [address] [address] May, [place] [address] [address] Apr, [facility] [address] [address] Apr, Acute mucoid otitis media of both ears H65.113 [place] [address] [address] 07 Apr, 2016 Yeast dermatitis B37.2 and H ematuria R31.9 [place] [address] [address] Mar, [place] [address] [address] Mar, [place] [address] [address] Feb, Left anterior knee pain M25. 562 [place] [address] [address] Feb, Chronic pain G89.29 ; Essent ial hypertension I10 ; Depressive disorder, not elsewhere classified F32.9 ; GERD (gastroesophageal reflux disease) K21.9 and History of long-term use of multiple prescription drugs Z92.29 [place] [address] [address] Jan, [place] [address] [address] Jan, Well woman exam Z01.419 ; BM I 45.0-49.9, adult Z68.42 ; Family history of diabetes mellitus Z83.3 and Chronic pain G89.[address] [address] December, Chronic pain G89.29 ; Essent ial hypertension I10 ; Depressive disorder, not elsewhere classified F32.9 ; GERD (gastroesophageal reflux disease) K21.9 ; 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 ; History of long-term use of multiple prescription drugs Z92.29 and Obesity E66.9 [place] [address] [address] Oct, [address] [address] 07 Oct, 2015 Well woman exam Z01.419 [...] Z12.4 and No natural teeth K00.[address] [address] Oct, [address] [address] 03 Sep, 2015 Chronic pain G89.29 ; Essent ial hypertension I10 ; GERD (gastroesophageal reflux disease) K21.9 ; 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 ; Skin infection L08.9 and History of long-term use of multiple prescription drugs Z92.29 [place] [address] [address] Aug, [address] [address] Jul, [address] [address] Jul, [address] [address] Jul, Upper respiratory infection J06.9 [place] [address] [address] [facility] [id number] [address] [place] [id number] 09 Jul, 2015 Depressive disorder, not els ewhere classified F32.9 [place] [address] [address] [facility] [id number] [address] [place] [address] Jul, Chronic pain 338.29 [place] [address] [place] [id number] [address] [place] [address] Jul, Chronic pain G89.29 [place] [address] [place] [id number] [place] [address] Jun, Poison josep L23.7 [place] [address] [place] [id number] [place] [address] Jun, Allergic contact dermatitis due to plants, except food L23.7 [place] [address] [place] [id number] [place] [address] Jun, Essential hypertension I10 ; Chronic pain G89.29 ; GERD (gastroesophageal reflux disease) K21.9 and Numbness and tingling in hands R20.2 [place] [address] [place] [id number] [address] [place] [id number] May, [place] [address] [place] [id number] [place] [address] Apr, [place] [address] [place] [id number] [place] [address] Mar, [place] [address] [place] [id number] [address] [place] [address] Feb, Abdominal pain, left lateral 789.09 and Constipation 564.00 [place] [address] [place] [id number] [place] [address] Feb, Depressive disorder, not els ewhere classified 311 and No condition on Heber II V71.09 [place] [address] [place] [id number] [address] [place] [address] Feb, Spider bite 989.5 and Depres homar 311 [facility] [address] [place] [id number] [address] [place] [address] Feb, [facility] [address] [place] [id number] [place] [address] Feb, Chronic pain 338.29 ; Arthro zonia 716.90 and GERD (gastroesophageal reflux disease) 530.81 [facility] [address] [address] Jan, Insect bites 919.4 [facility] [address] [place] [id number] [place] [address] Jan, [facility] [address] [address] December, Skin infection, bacterial 68 6.9 ; Conjunctivitis 372.30 and Insect bites 919.4 [facility] [address] [place] [id number] [address] [place] [address] December, Chronic pain 338.29 ; Arthro zonia 716.90 ; Skin infection, bacterial 686.9 and Conjunctivitis 372.30 [facility] [address] [place] [id number] [address] [place] [address] December, [facility] [address] [place] [id number] [address] [place] [address] Nov, [facility] [address] [place] [id number] [address] [place] [address] Nov, [facility] [address] [place] [id number] [address] [place] [id number] Oct, [facility] [address] [place] [id number] [address] [place] [id number] Oct, [facility] [address] [place] [id number] [address] [place] [id number] Sep, [facility] [address] [place] [id number] [address] [place] [address] Sep, [facility] [address] [id number] [address] [place] [address], [place] [address] Aug, [facility] [address] [id number] [address] [place] [address], [place] [address] Aug, [facility] [address] [id number] [address] [place] [address], [place] [address] Aug, [facility] [address] [id number] [address] [place] [address], [place] [address] Aug, [facility] [address] [id number] [address] [place] [address], [place] [address] Jul, [facility] [address] [id number] [address] [place] [address], [place] [address] Jul, [facility] [address] [id number] [address] [place] [address], [place] [address] Jul, [facility] [address] [id number] [address] [place] [address], [place] [address] Jul, [facility] [address] [id number] [address] [place] [address], [place] [address] Jul, [facility] [address] [id number] [address] [place] [address], [place] [address] Jul, [facility] [address] [id number] [address] [place] [address], [place] [address] Jul, [facility] [address] [id number] [address] [place] [address], [place] [address] Jul, [facility] [address] [id number] [address] [place] [address], [place] [address] Jul, [facility] [address] [id number] [address] [place] [address], [place] [address] Jun, [facility] [address] [id number] [address] [place] [address], [place] [address] Jun, [facility] [address] [id number] [address] [place] [address], [place] [address] Jun, [facility] [address] [id number] [address] [place] [address], [place] [address] Jun, [facility] [address] [id number] [address] [place] [address], [place] [address] Jun, [facility] [address] [id number] [address] [place] [address], [place] [address] Jun, [facility] [address] [id number] [address] [place] [address], [place] [address] Jun, [facility] [address] [id number] [address] [place] [address], [place] [address] Jun, [facility] [address] [id number] [address] [place] [address], [place] [address] May, [facility] [address] [id number] [address] [place] [address], [place] [address] May, [facility] [address] [id number] [address] [place] [address], [place] [address] May, [facility] [address] [id number] [address] [place] [address], [place] [address] May, [facility] [address] [id number] [address] [place] [address], [place] [address] May, [facility] [address] [id number] [address] [place] [address], [place] [address] 26 Apr, 2013 [facility] [address] [id number] [address] [place] [address], [place] [address] 26 Apr, 2013 [facility] [address] [id number] [address] [place] [address], [place] [address] 25 Apr, 2013 [facility] [address] [id number] [address] [place] [address], [place] [address] 25 Apr, 2013 [facility] [address] [id number] [address] [place] [address], [place] [address] 18 Apr, 2013 [facility] [address] [id number] [facility] [place] [address] 18 Apr, 2013 [facility] [address] [id number] [facility] [place] [address] 18 Apr, 2014 [facility] [address] [id number] [address] [place] [address], [place] [address] 18 Apr, 2014 [facility] [address] [id number] [address] [place] [address], [place] [address] 04 Apr, 2014 [facility] [address] [id number] [address] [place] [address], [place] [address] Apr, [facility] [address] [id number] [address] [place] [address], [place] [address] Mar, [facility] [address] [id number] [address] [place] [address], [place] [address] Mar, [facility] [address] [id number] [address] [place] [address], [place] [address] Mar, [facility] [address] [id number] [address] [place] [address], [place] [address] Mar, [facility] [address] [id number] [address] [place] [address], [place] [address] Mar, [facility] [address] [id number] [address] [place] [address], [place] [address] Mar, [facility] [address] [id number] [address] [place] [address], [place] [address] Feb, [facility] [address] [id number] [address] [place] [address], [place] [address] Feb, [facility] [address] [id number] [address] [place] [address], [place] [address] Jan, [facility] [address] [id number] [address] [place] [address], [place] [address] Jan, [facility] [address] [id number] [address] [place] [address], [place] [address] Jan, [facility] [address] [id number] [facility] [place] [address] Jan, [facility] [address] [id number] [address] [place] [address], [place] [address] December, [facility] [address] [id number] [address] [place] [address], [place] [address] December, [facility] [address] [id number] [address] [place] [address], [place] [address] December, [facility] [address] [id number] [address] [place] [address], [place] [address] December, [facility] [address] [id number] [address] [place] [address], [place] [address] December, [facility] [address] [id number] [address] [place] [address], [place] [address] December, [facility] [address] [id number] [address] [place] [address], [place] [address] December, [facility] [address] [id number] [address] [place] [address], [place] [address] December, [facility] [address] [id number] [address] [place] [address], [place] [address] December, [facility] [address] [id number] [address] [place] [address], [place] [address] Nov, [facility] [address] [id number] [address] [place] [address], [place] [address] Nov, [facility] [place] [facility] [address] [id number] [address] [place] [address], [place] [address] Nov, [facility] [place] [facility] [address] [id number] [address] [place] [address], [place] [address] Nov, [facility] [address] [id number] [address] [place] [address], [place] [address] Nov, [facility] [address] [id number] [address] [place] [address] Nov, [facility] [address] [id number] [address] [place] [address], [place] [address] Nov, [facility] [address] [id number] [address] [place] [address], [place] [address] Nov, [facility] [address] [id number] [address] [place] [address], [place] [address] Nov, [facility] [address] [id number] [address] [place] [address], [place] [address] Nov, [facility] [address] [id number] [address] [place] [address], [place] [address] Oct, [facility] [address] [id number] [address] [place] [address], [place] [address] Oct, [facility] [address] [id number] [address] [place] [address], [place] [address] Sep, [facility] [address] [id number] [address] [place] [address], [place] [address] Sep, [facility] [address] [id number] [address] [place] [address], [place] [address] Aug, [facility] [address] [id number] [address] [place] [address], [place] [address] Aug, [facility] [address] [id number] [address] [place] [address], [place] [address] Aug, [facility] [address] [id number] [address] [place] [address], [place] [address] Aug, [facility] [address] [id number] [address] [place] [address], [place] [address] Jul, [facility] [address] [id number] [address] [place] [address], [place] [address] Jul, [facility] [address] [id number] [address] [place] [address], [place] [address] Jul, [facility] [address] [id number] [address] [place] [address], [place] [address] Jul, [facility] [address] [id number] [address] [place] [address], [place] [address] Jun, [facility] [address] [id number] [address] [place] [address], [place] [address] Jun, [facility] [address] [id number] [address] [place] [address], [place] [address] May, [facility] [address] [id number] [address] [place] [address], [place] [address] May, [facility] [address] [id number] [address] [place] [address], [place] [address] May, [facility] [address] [id number] [address] [place] [address], [place] [address] May, [facility] [address] [id number] [address] [place] [address] May, [facility] [facility] [address] [id number] [address] [place] [address], [place] [address] May, [facility] [address] [id number] [address] [place] [id number] 30 Apr, 2013 [facility] [address] [id number] [address] [place] [id number] Apr, [facility] [address] [id number] [address] [place] [id number] Apr, [facility] [address] [id number] [address] [place] [id number] Feb, [facility] [address] [id number] [address] [place] [id number] Jan, [facility] [address] [id number] [address] [place] [id number] Jan, [facility] [address] [id number] [address] [place] [id number] 17 Jan, 2013 [facility] [address] [id number] [address] [place] [address], [place] [address] 14 Jan, 2013 [facility] [address] [id number] [address] [place] [address], [place] [address] December, [facility] [address] [id number] [address] [place] [address], [place] [address] December, [facility] [address] [id number] [address] [place] [address], [place] [id number] 24 Nov, 2012 [facility] [address] [id number] [address] [place] [address], [place] [address] Nov, [facility] [address] [id number] [address] [place] [address], [place] [address] Nov, [facility] [address] [id number] [address] [place] [address], [place] [address] Nov, [facility] [address] [id number] [address] [place] [address], [place] [address] Nov, [facility] [address] [id number] [address] [place] [address], [place] [address] Nov, [facility] [address] [id number] [address] [place] [address], [place] [address] Nov, [facility] [address] [id number] [address] [place] [address], [place] [address] 27 Oct, 2012 [facility] [address] [id number] [address] [place] [address], [place] [address] 18 Oct, 2012 [facility] [address] [id number] [address] [place] [address], [place] [address] 14 Oct, 2012 [facility] [address] [id number] [address] [place] [address], [place] [address] 13 Oct, 2012 [facility] [address] [id number] [address] [place] [address], [place] [address] 12 Oct, 2012 [facility] [address] [id number] [address] [place] [address], [place] [address] Oct, [facility] [address] [id number] [address] [place] [address], [place] [address] Oct, [facility] [address] [id number] [address] [place] [address], [place] [address] Sep, [facility] [address] [id number] [address] [place] [address], [place] [address] Sep, [facility] [address] [id number] [address] [place] [address], [place] [address] Aug, [facility] [address] [id number] [address] [place] [address], [place] [address] Aug, [facility] [address] [id number] [address] [place] [address], [place] [address] Jul, [facility] [address] [id number] [address] [place] [address], [place] [address] Jul, [facility] [address] [id number] [address] [place] [address], [place] [address] Jul, [facility] [address] [id number] [address] [place] [address], [place] [address] Jul, [facility] [address] [id number] [address] [place] [address], [place] [address] Jul, [facility] [address] [id number] [address] [place] [address], [place] [address] Jul, [facility] [address] [id number] [address] [place] [address], [place] [address] Jul, [facility] [address] [id number] [address] [place] [address], [place] [address] Jul, [facility] [address] [id number] [address] [place] [address], [place] [address] Jun, [facility] [address] [id number] [address] [place] [address], [place] [address] Jun, IMMUNIZATIONS No Known Immunizations SOCIAL HISTORY Never Assessed REASON FOR VISIT Pain management (chronic) -Juan F PRITCHETT PLAN OF CARE VITAL SIGNS Height 62 in 2018-05-09 Weight 244.2 lbs 2018-05-09 Temperature 97.7 degrees Fahrenheit 2018-05-09 Heart Rate 65 bpm 2018-05-09 Respiratory Rate 20 2018-05-09 Oximetry 96 % 2018-05-09 BMI 44.66 kg/m2 2018-05-09 Blood pressure systolic 140 mmHg 2018-05-09 Blood pressure diastolic 78 mmHg 2018-05-09 MEDICATIONS Medication Instructions Dosage Frequency Start Date End Date Duration S tatus Omeprazole 20 MG TAKE ONE CAPSULE BY MOUTH ONCE DAILY BEFORE A M EAL 30 Active Hydrochlorothiazide 25 MG Orally Once a day 1 tablet 24h Active Albuterol Sulfate 90 mcg/actuation 2 puf fs by Inhalation route every 4-6 hours as needed PRN cough or wheezing Active Hydrocodone-Acetaminophen 5-325 MG Orally 3 times a day prn must last 4 weeks 1 Tablet May, 28 days Active Indomethacin 50 mg Orally 3 times a day 1 capsule with food or milk 8h Not-Taking Triamcinolone Acetonide 0.1 % Externally Twice a day 1 appli cation to affected area 12h Mar, Active Triamcinolone Acetonide 0.1 % Externally Twice a day 1 appli cation to affected area 12h Feb, Active Tssaa-0-urml Ethyl Esters 1 GM Orally Once a day 1 capsule 24h Not-Taking RESULTS No Results PROCEDURES No Known procedures [...]
--- OUTSIDE RECORDS SUMMARY | 2020-02-11 03:22 | XMS REPORT ---
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 Name Role Phone JASON MANCUSO Unavailable PROBLEMS Type Condition ICD9-CM Code [id number] Code Onset Dates Condition S tatus SNOMED Code Problem Chronic pain G89.29 Active 4974563 1 Problem Pre-diabetes R73.09 Active 6569681 02 Problem Essential hypertension I10 Active 85406558 Problem BMI 45.0-49.9, adult Z68.42 Active 356788444 Problem Numbness and tingling in hands R20.2 Active 129260528 Problem GERD (gastroesophageal reflux disease) K21.9 Active 666752723 Problem Stasis dermatitis of both legs I87.2 Active 27595646 Problem History of abnormal cervical Pap smear Z87.898 Active 376731167 ALLERGIES No Information ENCOUNTERS Encounter Location Date Diagnosis [facility] [address] [facility] [id number] [address] [place] [phone] May, [facility] [address] [facility] [id number] [address] [place] [phone] Apr, Chronic pain G89.29 [facility] [address] [facility] [id number] [address] [place] [phone] Mar, Poison josep L23.7 [facility] [address] [facility] [id number] [address] [place] [id number] Mar, Chronic pain G89.29 [facility] [address] [facility] [id number] [address] [place] [address] Feb, Chronic pain G89.29 [facility] [address] [facility] [id number] [address] [place] [id number] Feb, Poison josep L23.7 [place] [address] [facility] [id number] [address] [place] [address] Jan, Chronic pain G89.29 [facility] [address] [facility] [id number] [address] [place] [address] December, Chronic pain G89.29 [facility] [address] [facility] [id number] [address] [place] [address] Nov, Long-term use of high-risk m edication Z79.899 [facility] [address] [facility] [id number] [address] [place] [address] Nov, Chronic pain G89.29 [place] [address] [facility] [id number] [address] [place] [address] Oct, Chronic pain G89.29 ; Pre-di abetes R73.09 ; Long-term use of high- risk medication Z79.899 ; Allergic rhinitis, unspecified seasonality, unspecified trigger J30.9 ; BMI 45.0-49.9, adult Z68.42 and Essential hypertension I10 [place] [address] [facility] [id number] [address] [place] [id number] Oct, Chronic pain G89.29 [place] [address] [facility] [id number] [address] [place] [address] Sep, Chronic pain G89.29 [place] [address] [facility] [id number] [address] [place] [address] Aug, Chronic pain G89.29 [place] [address] [facility] [id number] [address] [place] [phone] Jul, [place] [address] [facility] [id number] [address] [place] [phone] Jul, [facility] [address] [facility] [id number] [address] [place] [address] Jun, Chronic pain G89.29 ; BMI 45 .0-49.9, adult Z68.42 ; Pre-diabetes R73.09 ; Essential hypertension I10 ; GERD (gastroesophageal reflux disease) K21.9 ; Yeast dermatitis B37.2 ; Dysuria R30.0 ; Acute non-recurrent maxillary sinusitis J01.00 and Acute cystitis with hematuria N30.01 [place] [address] [facility] [id number] [address] [place] [id number] 13 Jun, 2017 Chronic pain G89.29 [place] [address] [facility] [id number] [address] [place] [address] Jun, Acute non-recurrent maxillar y sinusitis J01.00 and BMI 45.0-49.9, adult Z68.42 [place] [address] [facility] [id number] [address] [place] [address] May, [place] [address] [facility] [id number] [address] [place] [address] May, Chronic pain G89.29 [place] [address] [place] [id number] [address] [place] [address] May, [place] [address] [id number] [address] [place] [phone] Apr, Chronic pain G89.29 [place] [address] [facility] [id number] [address] [place] [phone] Mar, [place] [address] [place] [id number] [address] [place] [address] Mar, Essential hypertension I10 a nd Pre-diabetes R73.09 [place] [address] [place] [id number] [address] [place] [address] Mar, Chronic pain G89.29 ; Essent ial hypertension I10 ; Depressive disorder, not elsewhere classified F32.9 ; GERD (gastroesophageal reflux disease) K21.9 ; Pre-diabetes R73.09 ; Stasis dermatitis of both legs I87.2 and Acute non-recurrent maxillary sinusitis J01.00 [place] [address] [facility] [id number] [address] [place] [phone] Mar, Chronic pain G89.29 [place] [address] [facility] [id number] [address] [place] [id number] 07 Mar, 2017 Achilles tendinitis of right lower extremity M76.61 and Tinea corporis B35.4 [place] [address] [facility] [id number] [address] [place] [id number] 17 Feb, 2017 Yeast dermatitis B37.2 [place] [address] [facility] [id number] [address] [place] [address] Feb, Candidal intertrigo B37.2 an d Acute right ankle pain M25.571 [place] [address] [facility] [id number] [address] [place] [address] Feb, Chronic pain G89.29 [place] [address] [place] [id number] [address] [place] [phone] Jan, [place] [address] [place] [id number] [address] [place] [address] Jan, Chronic pain G89.29 [place] [address] [place] [id number] [address] [place] [address] December, Chronic pain G89.29 ; Essent ial hypertension I10 ; Depressive disorder, not elsewhere classified F32.9 ; GERD (gastroesophageal reflux disease) K21.9 ; Pre-diabetes R73.09 ; Screening breast examination Z12.39 ; Stasis dermatitis of both legs I87.2 and Yeast dermatitis B37.2 [place] [address] [facility] [id number] [address] [place] [address] Nov, Chronic pain G89.29 [place] [address] [facility] [id number] [address] [place] [address] Nov, Cellulitis of left lower ext remity L03.116 [place] [address] [place] [id number] [address] [place] [id number] 17 Nov, 2016 Cellulitis of left lower ext remity L03.116 [place] [address] [place] [id number] [address] [place] [address] Oct, Yeast dermatitis B37.2 [facility] [address] [facility] [id number] [address] [place] [address] Oct, Chronic pain G89.29 [place] [address] [facility] [id number] [address] [place] [address] Sep, Chronic pain G89.29 ; Essent ial hypertension I10 ; Depressive disorder, not elsewhere classified F32.9 and GERD (gastroesophageal reflux disease) K21.9 [facility] [address] [facility] [id number] [address] [place] [address] Aug, Chronic pain G89.29 [place] [address] [place] [id number] [place] [address] Aug, Cough R05 ; Rash R21 and Vinay h and nonspecific skin eruption R21 [place] [address] [address] Jul, Chronic pain G89.29 [facility] [address] [place] [id number] [address] [place] [address] Jun, Chronic pain G89.29 ; Bronch itis J40 ; Essential hypertension I10 ; Depressive disorder, not elsewhere classified F32.9 ; GERD (gastroesophageal reflux disease) K21.9 and History of long-term use of multiple prescription drugs Z92.29 [place] [id number] [place] [id number] Jun, Bronchitis J40 ; Chills R68. 83 and Sore throat J02.9 [facility] [address] [facility] [id number] [address] [place] [phone] May, [place] [id number] [place] [phone] 29 Apr, 2016 [facility] [address] [facility] [id number] [address] [place] [address] 19 Apr, 2016 Acute mucoid otitis media of both ears H65.113 [place] [address] [address] Apr, Yeast dermatitis B37.2 and H ematuria R31.9 [place] [address] [address] Mar, [place] [address] [address] Mar, [place] [address] [address] Feb, Left anterior knee pain M25. [address] [address] Feb, Chronic pain G89.29 ; Essent ial hypertension I10 ; Depressive disorder, not elsewhere classified F32.9 ; GERD (gastroesophageal reflux disease) K21.9 and History of long-term use of multiple prescription drugs Z92.29 [place] [address] [address] Jan, [place] [address] [address] Jan, Well woman exam Z01.419 ; BM I 45.0-49.9, adult Z68.42 ; Family history of diabetes mellitus Z83.3 and Chronic pain G89.[address] [address] December, Chronic pain G89.29 ; Essent ial hypertension I10 ; Depressive disorder, not elsewhere classified F32.9 ; GERD (gastroesophageal reflux disease) K21.9 ; 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 ; History of long-term use of multiple prescription drugs Z92.29 and Obesity E66.9 [place] [address] [address] Oct, [place] [address] [address] Oct, Well woman exam Z01.419 ; BM [...] smear Z12.4 and No natural teeth K00.0 [place] [address] [address] Oct, [place] [address] [address] Sep, Chronic pain G89.29 ; Essent ial hypertension I10 ; GERD (gastroesophageal reflux disease) K21.9 ; 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 ; Skin infection L08.9 and History of long-term use of multiple prescription drugs Z92.29 [place] [address] [place] [id number] [address] [place] [address] Aug, [place] [address] [address] Jul, [place] [address] [address] Jul, [place] [address] [address] Jul, Upper respiratory infection J06.9 [place] [address] [place] [id number] [address] [place] [address] Jul, Depressive disorder, not els ewhere classified F32.9 [place] [address] [place] [id number] [place] [address] Jul, Chronic pain 338.29 [place] [address] [place] [id number] [address] [place] [address] Jul, Chronic pain G89.29 [place] [address] [address] 16 Jun, 2015 Poison josep L23.7 [place] [address] [address] 11 Jun, 2015 Allergic contact dermatitis due to plants, except food L23.7 [place] [address] [address] 03 Jun, 2015 Essential hypertension I10 ; Chronic pain G89.29 ; GERD (gastroesophageal reflux disease) K21.9 and Numbness and tingling in hands R20.2 [place] [address] [address] May, [place] [address] [address] Apr, [place] [address] [address] Mar, [place] [address] [address] Feb, Abdominal pain, left lateral 789.09 and Constipation 564.00 [place] [address] [address] Feb, Depressive disorder, not els ewhere classified 311 and No condition on [place] V71.09 [place] [address] [address] Feb, Spider bite 989.5 and Depres homar 311 [place] [address] [address] Feb, [place] [address] [address] Feb, Chronic pain 338.29 ; Arthro zonia 716.90 and GERD (gastroesophageal reflux disease) 530.81 [place] [address] [address] Jan, Insect bites 919.4 [facility] [address] [id number] [address] [place] [address] Jan, [facility] [address] [id number] [address] [place] [address] December, Skin infection, bacterial 68 6.9 ; Conjunctivitis 372.30 and Insect bites 919.4 [facility] [address] [id number] [address] [place] [address] December, Chronic pain 338.29 ; Arthro zonia 716.90 ; Skin infection, bacterial 686.9 and Conjunctivitis 372.30 [facility] [address] [id number] [address] [place] [address] December, [facility] [address] [id number] [address] [place] [phone] Nov, [facility] [address] [id number] [address] [place] [address] Nov, [facility] [address] [id number] [address] [place] [phone] Oct, [facility] [address] [id number] [address] [place] [phone] Oct, [facility] [address] [facility] [id number] [address] [place] [phone] Sep, [facility] [address] [id number] [address] [place] [address] Sep, [facility] [address] [id number] [address] [place] [phone] Aug, [facility] [address] [id number] [address] [place] [id number] Aug, [facility] [address] [id number] [address] [place] [phone] Aug, [facility] [address] [id number] [address] [place] [address] Aug, [facility] [address] [id number] [address] [place] [address], [place] [address] 30 Jul, 2014 [facility] [address] [id number] [address] [place] [address], [place] [address] Jul, [facility] [address] [id number] [address] [place] [address], [place] [address] Jul, [facility] [address] [id number] [address] [place] [address], [place] [address] Jul, [facility] [address] [id number] [address] [place] [address], [place] [address] Jul, [facility] [address] [id number] [address] [place] [address], [place] [address] Jul, [facility] [address] [id number] [address] [place] [address], [place] [address] Jul, [facility] [address] [id number] [address] [place] [address], [place] [address] Jul, [facility] [address] [id number] [address] [place] [address], [place] [address] Jul, [facility] [address] [id number] [address] [place] [address], [place] [address] Jun, [facility] [address] [id number] [address] [place] [address], [place] [address] Jun, [facility] [address] [id number] [address] [place] [address], [place] [address] Jun, [facility] [address] [id number] [address] [place] [address], [place] [address] Jun, [facility] [address] [id number] [address] [place] [address], [place] [address] Jun, [facility] [address] [id number] [address] [place] [address], [place] [address] Jun, [facility] [address] [id number] [address] [place] [phone] Jun, [facility] [address] [id number] [address] [place] [address], [place] [address] Jun, [facility] [address] [id number] [address] [place] [address], [place] [address] May, [facility] [address] [id number] [address] [place] [address], [place] [address] May, [facility] [address] [id number] [address] [place] [address], [place] [address] 16 May, 2014 [facility] [address] [id number] [address] [place] [address], [place] [address] May, [facility] [address] [id number] [address] [place] [address], [place] [address] May, [facility] [address] [id number] [address] [place] [address], [place] [address] 26 Apr, 2014 [facility] [address] [id number] [address] [place] [address], [place] [address] 26 Apr, 2013 [facility] [address] [id number] [address] [place] [address], [place] [address] 25 Apr, 2014 [facility] [address] [id number] [address] [place] [address], [place] [address] 25 Apr, 2013 [facility] [address] [id number] [address] [place] [address], [place] [address] 18 Apr, 2013 [facility] [address] [id number] [address] [place] [address], [place] [address] 18 Apr, 2013 [facility] [address] [id number] [address] [place] [address], [place] [address] 18 Apr, 2013 [facility] [address] [id number] [address] [place] [address], [place] [address] 18 Apr, 2013 [facility] [address] [id number] [address] [place] [address], [place] [address] 04 Apr, 2013 [facility] [address] [id number] [address] [place] [address], [place] [address] Apr, [facility] [address] [id number] [facility] [place] [address] Mar, [facility] [address] [id number] [address] [place] [address], [place] [address] Mar, [facility] [address] [id number] [address] [place] [address], [place] [address] Mar, [facility] [address] [id number] [address] [place] [address], [place] [address] Mar, [facility] [address] [id number] [address] [place] [address], [place] [address] Mar, [facility] [address] [id number] [address] [place] [address], [place] [address] Mar, [facility] [address] [id number] [address] [place] [address], [place] [address] Feb, [facility] [address] [id number] [address] [place] [address], [place] [address] Feb, [facility] [address] [id number] [address] [place] [address], [place] [address] Jan, [facility] [address] [id number] [address] [place] [address], [place] [address] Jan, [facility] [address] [id number] [address] [place] [address], [place] [address] Jan, [facility] [address] [id number] [address] [place] [address], [place] [address] Jan, [facility] [address] [id number] [address] [place] [address], [place] [address] December, [facility] [address] [id number] [address] [place] [address], [place] [address] December, [facility] [address] [id number] [address] [place] [address], [place] [address] December, [facility] [address] [id number] [address] [place] [address], [place] [address] December, [facility] [address] [id number] [address] [place] [address], [place] [address] December, [facility] [address] [id number] [address] [place] [address], [place] [address] December, [facility] [address] [id number] [address] [place] [address], [place] [address] December, [facility] [address] [id number] [address] [place] [address], [place] [address] December, [facility] [address] [id number] [address] [place] [address], [place] [address] December, [facility] [address] [id number] [address] [place] [address], [place] [address] Nov, [facility] [address] [id number] [address] [place] [address], [place] [address] Nov, [facility] [address] [id number] [address] [place] [address], [place] [address] Nov, [facility] [address] [id number] [address] [place] [address], [place] [address] Nov, [facility] [address] [id number] [address] [place] [address], [place] [address] Nov, [facility] [address] [id number] [address] [place] [address], [place] [address] Nov, [facility] [address] [id number] [address] [place] [address], [place] [address] Nov, [facility] [address] [id number] [address] [place] [address], [place] [address] Nov, [facility] [address] [id number] [address] [place] [address], [place] [address] Nov, [facility] [address] [id number] [address] [place] [address], [place] [address] Nov, [facility] [address] [id number] [address] [place] [address], [place] [address] Oct, [facility] [address] [id number] [address] [place] [address], [place] [address] Oct, [facility] [address] [id number] [address] [place] [address], [place] [address] Sep, [facility] [address] [id number] [address] [place] [address], [place] [address] Sep, [facility] [address] [id number] [address] [place] [address], [place] [address] Aug, [facility] [address] [id number] [address] [place] [address], [place] [address] Aug, [facility] [address] [id number] [address] [place] [address], [place] [address] Aug, [facility] [address] [id number] [address] [place] [address], [place] [address] Aug, [facility] [address] [id number] [address] [place] [address], [place] [address] Jul, [facility] [address] [id number] [address] [place] [address], [place] [address] Jul, [facility] [address] [id number] [address] [place] [address], [place] [address] Jul, [facility] [address] [id number] [address] [place] [address], [place] [address] Jul, [facility] [address] [id number] [address] [place] [address], [place] [address] Jun, [facility] [address] [id number] [address] [place] [address], [place] [address] Jun, [facility] [address] [id number] [address] [place] [address], [place] [address] May, [facility] [address] [id number] [address] [place] [address], [place] [address] May, [facility] [address] [id number] [address] [place] [address], [place] [address] May, [facility] [address] [id number] [address] [place] [address], [place] [address] May, [facility] [address] [id number] [address] [place] [address], [place] [address] May, [facility] [facility] [address] [id number] [address] [place] [address], [place] [address] May, [facility] [address] [id number] [address] [place] [address], [place] [address] Apr, [facility] [address] [id number] [address] [place] [address], [place] [address] Apr, [facility] [address] [id number] [address] [place] [address], [place] [address] Apr, [facility] [address] [id number] [address] [place] [address], [place] [address] Feb, [facility] [address] [id number] [address] [place] [address], [place] [address] Jan, [facility] [address] [id number] [address] [place] [address], [place] [address] Jan, [facility] [address] [id number] [address] [place] [address], [place] [address] Jan, [facility] [address] [id number] [address] [place] [address], [place] [address] Jan, [facility] [address] [id number] [address] [place] [address], [place] [address] December, [facility] [address] [id number] [address] [place] [address], [place] [address] December, [facility] [address] [id number] [address] [place] [address], [place] [address] 24 Nov, 2012 [facility] [address] [id number] [facility] [place] [address] Nov, [facility] [address] [id number] [address] [place] [address], [place] [address] Nov, [facility] [address] [id number] [address] [place] [address], [place] [address] Nov, [facility] [address] [id number] [address] [place] [address], [place] [address] Nov, [facility] [address] [id number] [address] [place] [address], [place] [address] Nov, [facility] [address] [id number] [address] [place] [address], [place] [address] Nov, [facility] [address] [id number] [address] [place] [address], [place] [address] 27 Oct, 2012 [facility] [address] [id number] [address] [place] [address], [place] [address] 18 Oct, 2012 [facility] [address] [id number] [address] [place] [address], [place] [address] 14 Oct, 2012 [facility] [address] [id number] [address] [place] [address], [place] [address] 13 Oct, 2012 [facility] [address] [id number] [address] [place] [address], [place] [address] 12 Oct, 2012 [facility] [address] [id number] [address] [place] [address], [place] [address] 11 Oct, 2012 [facility] [address] [id number] [address] [place] [address], [place] [address] 08 Oct, 2012 [facility] [address] [id number] [address] [place] [address], [place] [address] 20 Sep, 2012 [facility] [address] [id number] [address] [place] [address], [place] [address] Sep, [facility] [address] [id number] [address] [place] [id number] Aug, [facility] [address] [id number] [address] [place] [id number] Aug, [facility] [address] [id number] [address] [place] [id number] Jul, [facility] [address] [id number] [address] [place] [id number] Jul, [facility] [address] [id number] [address] [place] [id number] Jul, [facility] [address] [id number] [address] [place] [id number] Jul, [facility] [address] [id number] [address] [place] [id number] Jul, [facility] [address] [id number] [address] [place] [id number] Jul, [facility] [address] [id number] [address] [place] [id number] Jul, [facility] [address] [id number] [address] [place] [id number] Jul, [facility] [address] [id number] [address] [place] [id number] Jun, [facility] [address] [id number] [address] [place] [id number] Jun, IMMUNIZATIONS No Known Immunizations SOCIAL HISTORY Never Assessed REASON FOR VISIT Controlled Med Refill PLAN OF CARE VITAL SIGNS MEDICATIONS Medication Instructions Dosage Frequency Start Date End Date Duration S tatus Hydrocodone-Acetaminophen 5-325 MG Orally 3 times a day prn must last 4 weeks 1 Tablet Apr, 28 days Active RESULTS No Results PROCEDURES [...]
--- OUTSIDE RECORDS SUMMARY | 2020-02-11 03:23 | XMS REPORT ---
Author Author Madeline MANCUSO Organization [facility] Address [address] [place] [address] Care Team Providers Care Voltage Tester Name Role Phone JASON MANCUSO Unavailable PROBLEMS Type Condition ICD9-CM Code DOM61-CZ Code Onset Dates Condition S tatus SNOMED Code Problem Chronic pain G89.29 Active 2488954 1 Problem Pre-diabetes R73.09 Active 6073584 02 Problem Essential hypertension I10 Active 40697182 Problem BMI 45.0-49.9, adult Z68.42 Active 069042250 Problem Numbness and tingling in hands R20.2 Active 650059025 Problem GERD (gastroesophageal reflux disease) K21.9 Active 696152195 Problem Stasis dermatitis of both legs I87.2 Active 61550406 Problem History of abnormal cervical Pap smear Z87.898 Active 606047463 ALLERGIES No Information ENCOUNTERS Encounter Location Date Diagnosis [facility] [address] [facility] [id number] [address] [place] [address] May, [facility] [address] [facility] [id number] [address] [place] [address] Apr, Chronic pain G89.29 [facility] [address] [facility] [id number] [address] [place] [address] Mar, Poison josep L23.7 [facility] [address] [facility] [id number] [address] [place] [address] Mar, Chronic pain G89.29 [facility] [address] [facility] [id number] [address] [place] [address] Feb, Chronic pain G89.29 [facility] [address] [facility] [id number] [address] [place] [address] Feb, Poison josep L23.7 [place] [address] [facility] [id number] [address] [place] [address] Jan, Chronic pain G89.29 [facility] [address] [facility] [id number] [address] [place] [address] December, Chronic pain G89.29 [facility] [address] [facility] [id number] [address] [place] [address] Nov, Long-term use of high-risk m edication Z79.899 [facility] [address] [facility] [id number] [address] [place] [address] Nov, Chronic pain G89.29 [place] [address] [facility] [id number] [address] [place] [address] Oct, Chronic pain G89.29 ; Pre-di abetes R73.09 ; Long-term use of high- risk medication Z79.899 ; Allergic rhinitis, unspecified seasonality, unspecified trigger J30.9 ; BMI 45.0-49.9, adult Z68.42 and Essential hypertension I10 [place] [address] [facility] [id number] [address] [place] [address] Oct, Chronic pain G89.29 [place] [address] [facility] [id number] [address] [place] [address] Sep, Chronic pain G89.29 [place] [address] [facility] [id number] [address] [place] [address] Aug, Chronic pain G89.29 [place] [address] [facility] [id number] [address] [place] [address] Jul, [place] [address] [facility] [id number] [address] [place] [address] Jul, [facility] [address] [facility] [id number] [address] [place] [address] Jun, Chronic pain G89.29 ; BMI 45 .0-49.9, adult Z68.42 ; Pre-diabetes R73.09 ; Essential hypertension I10 ; GERD (gastroesophageal reflux disease) K21.9 ; Yeast dermatitis B37.2 ; Dysuria R30.0 ; Acute non-recurrent maxillary sinusitis J01.00 and Acute cystitis with hematuria N30.01 [place] [address] [facility] [id number] [address] [place] [address] 13 Jun, 2017 Chronic pain G89.29 [place] [address] [facility] [id number] [address] [place] [address] Jun, Acute non-recurrent maxillar y sinusitis J01.00 and BMI 45.0-49.9, adult Z68.42 [place] [address] [facility] [id number] [address] [place] [address] May, [place] [address] [facility] [id number] [address] [place] [address] May, Chronic pain G89.29 [place] [address] [place] [id number] [address] [place] [address] May, [place] [address] [id number] [address] [place] [address] Apr, Chronic pain G89.29 [place] [address] [facility] [id number] [address] [place] [address] Mar, [place] [address] [place] [id number] [address] [place] [address] Mar, Essential hypertension I10 a nd Pre-diabetes R73.09 [place] [address] [place] [id number] [address] [place] [address] Mar, Chronic pain G89.29 ; Essent ial hypertension I10 ; Depressive disorder, not elsewhere classified F32.9 ; GERD (gastroesophageal reflux disease) K21.9 ; Pre-diabetes R73.09 ; Stasis dermatitis of both legs I87.2 and Acute non-recurrent maxillary sinusitis J01.00 [place] [address] [facility] [id number] [address] [place] [address] Mar, Chronic pain G89.29 [place] [address] [facility] [id number] [address] [place] [address] 07 Mar, 2017 Achilles tendinitis of right lower extremity M76.61 and Tinea corporis B35.4 [place] [address] [facility] [id number] [address] [place] [address] 17 Feb, 2017 Yeast dermatitis B37.2 [place] [address] [facility] [id number] [address] [place] [address] Feb, Candidal intertrigo B37.2 an d Acute right ankle pain M25.571 [place] [address] [facility] [id number] [address] [place] [address] Feb, Chronic pain G89.29 [place] [address] [place] [id number] [address] [place] [address] Jan, [place] [address] [place] [id number] [address] [place] [address] Jan, Chronic pain G89.29 [place] [address] [place] [id number] [address] [place] [address] December, Chronic pain G89.29 ; Essent ial hypertension I10 ; Depressive disorder, not elsewhere classified F32.9 ; GERD (gastroesophageal reflux disease) K21.9 ; Pre-diabetes R73.09 ; Screening breast examination Z12.39 ; Stasis dermatitis of both legs I87.2 and Yeast dermatitis B37.2 [place] [address] [facility] [id number] [address] [place] [address] Nov, Chronic pain G89.29 [place] [address] [facility] [id number] [address] [place] [address] Nov, Cellulitis of left lower ext remity L03.116 [place] [address] [place] [id number] [address] [place] [address] 17 Nov, 2016 Cellulitis of left lower ext remity L03.116 [place] [address] [place] [id number] [address] [place] [address] Oct, Yeast dermatitis B37.2 [facility] [address] [facility] [id number] [address] [place] [address] Oct, Chronic pain G89.29 [place] [address] [facility] [id number] [address] [place] [address] Sep, Chronic pain G89.29 ; Essent ial hypertension I10 ; Depressive disorder, not elsewhere classified F32.9 and GERD (gastroesophageal reflux disease) K21.9 [facility] [address] [facility] [id number] [address] [place] [address] Aug, Chronic pain G89.29 [place] [address] [place] [id number] [place] [address] Aug, Cough R05 ; Rash R21 and Vinay h and nonspecific skin eruption R21 [place] [address] [address] Jul, Chronic pain G89.29 [facility] [address] [place] [id number] [address] [place] [address] Jun, Chronic pain G89.29 ; Bronch itis J40 ; Essential hypertension I10 ; Depressive disorder, not elsewhere classified F32.9 ; GERD (gastroesophageal reflux disease) K21.9 and History of long-term use of multiple prescription drugs Z92.29 [place] [id number] [place] [address] Jun, Bronchitis J40 ; Chills R68. 83 and Sore throat J02.9 [facility] [address] [facility] [id number] [address] [place] [address] May, [place] [id number] [place] [address] 29 Apr, 2016 [facility] [address] [facility] [id number] [address] [place] [address] 19 Apr, 2016 Acute mucoid otitis media of both ears H65.113 [place] [address] [address] Apr, Yeast dermatitis B37.2 and H ematuria R31.9 [place] [address] [address] Mar, [place] [address] [address] Mar, [place] [address] [address] Feb, Left anterior knee pain M25. [address] [address] Feb, Chronic pain G89.29 ; Essent ial hypertension I10 ; Depressive disorder, not elsewhere classified F32.9 ; GERD (gastroesophageal reflux disease) K21.9 and History of long-term use of multiple prescription drugs Z92.29 [place] [address] [address] Jan, [place] [address] [address] Jan, Well woman exam Z01.419 ; BM I 45.0-49.9, adult Z68.42 ; Family history of diabetes mellitus Z83.3 and Chronic pain G89.[address] [address] December, Chronic pain G89.29 ; Essent ial hypertension I10 ; Depressive disorder, not elsewhere classified F32.9 ; GERD (gastroesophageal reflux disease) K21.9 ; 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 ; History of long-term use of multiple prescription drugs Z92.29 and Obesity E66.9 [place] [address] [address] Oct, [place] [address] [address] Oct, Well woman exam Z01.419 ; BM [...] smear Z12.4 and No natural teeth K00.0 [place] [address] [address] Oct, [place] [address] [address] Sep, Chronic pain G89.29 ; Essent ial hypertension I10 ; GERD (gastroesophageal reflux disease) K21.9 ; 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 ; Skin infection L08.9 and History of long-term use of multiple prescription drugs Z92.29 [place] [address] [place] [id number] [address] [place] [address] Aug, [place] [address] [address] Jul, [place] [address] [address] Jul, [place] [address] [address] Jul, Upper respiratory infection J06.9 [place] [address] [place] [id number] [address] [place] [address] Jul, Depressive disorder, not els ewhere classified F32.9 [place] [address] [place] [id number] [place] [address] Jul, Chronic pain 338.29 [place] [address] [place] [id number] [address] [place] [address] Jul, Chronic pain G89.29 [place] [address] [address] 16 Jun, 2015 Poison josep L23.7 [place] [address] [address] 11 Jun, 2015 Allergic contact dermatitis due to plants, except food L23.7 [place] [address] [address] 03 Jun, 2015 Essential hypertension I10 ; Chronic pain G89.29 ; GERD (gastroesophageal reflux disease) K21.9 and Numbness and tingling in hands R20.2 [place] [address] [address] May, [place] [address] [address] Apr, [place] [address] [address] Mar, [place] [address] [address] Feb, Abdominal pain, left lateral 789.09 and Constipation 564.00 [place] [address] [address] Feb, Depressive disorder, not els ewhere classified 311 and No condition on Berkley II V71.09 [place] [address] [address] Feb, Spider bite 989.5 and Depres homar 311 [place] [address] [address] Feb, [place] [address] [address] Feb, Chronic pain 338.29 ; Arthro zonia 716.90 and GERD (gastroesophageal reflux disease) 530.81 [place] [address] [address] Jan, Insect bites 919.4 [facility] [address] [id number] [address] [place] [address] Jan, [facility] [address] [id number] [address] [place] [address] December, Skin infection, bacterial 68 6.9 ; Conjunctivitis 372.30 and Insect bites 919.4 [facility] [address] [id number] [address] [place] [address] December, Chronic pain 338.29 ; Arthro zonia 716.90 ; Skin infection, bacterial 686.9 and Conjunctivitis 372.30 [facility] [address] [id number] [address] [place] [address] December, [facility] [address] [id number] [address] [place] [address] Nov, [facility] [address] [id number] [address] [place] [address] Nov, [facility] [address] [id number] [address] [place] [address] Oct, [facility] [address] [id number] [address] [place] [address] Oct, [facility] [address] [facility] [id number] [address] [place] [address] Sep, [facility] [address] [id number] [address] [place] [address] Sep, [facility] [address] [id number] [address] [place] [address] Aug, [facility] [address] [id number] [address] [place] [address] Aug, [facility] [address] [id number] [address] [place] [address] Aug, [facility] [address] [id number] [address] [place] [address] Aug, [facility] [address] [id number] [address] [place] [address], [place] [address] 30 Jul, 2014 [facility] [address] [id number] [address] [place] [address], [place] [address] Jul, [facility] [address] [id number] [address] [place] [address], [place] [address] Jul, [facility] [address] [id number] [address] [place] [address], [place] [address] Jul, [facility] [address] [id number] [address] [place] [address], [place] [address] Jul, [facility] [address] [id number] [address] [place] [address], [place] [address] Jul, [facility] [address] [id number] [address] [place] [address], [place] [address] Jul, [facility] [address] [id number] [address] [place] [address], [place] [address] Jul, [facility] [address] [id number] [address] [place] [address], [place] [address] Jul, [facility] [address] [id number] [address] [place] [address], [place] [address] Jun, [facility] [address] [id number] [address] [place] [address], [place] [address] Jun, [facility] [address] [id number] [address] [place] [address], [place] [address] Jun, [facility] [address] [id number] [address] [place] [address], [place] [address] Jun, [facility] [address] [id number] [address] [place] [address], [place] [address] Jun, [facility] [address] [id number] [address] [place] [address], [place] [address] Jun, [facility] [address] [id number] [address] [place] [address] Jun, [facility] [address] [id number] [address] [place] [address], [place] [address] Jun, [facility] [address] [id number] [address] [place] [address], [place] [address] May, [facility] [address] [id number] [address] [place] [address], [place] [address] May, [facility] [address] [id number] [address] [place] [address], [place] [address] 16 May, 2014 [facility] [address] [id number] [address] [place] [address], [place] [address] May, [facility] [address] [id number] [address] [place] [address], [place] [address] May, [facility] [address] [id number] [address] [place] [address], [place] [address] 26 Apr, 2014 [facility] [address] [id number] [address] [place] [address], [place] [address] 26 Apr, 2013 [facility] [address] [id number] [address] [place] [address], [place] [address] 25 Apr, 2014 [facility] [address] [id number] [address] [place] [address], [place] [address] 25 Apr, 2013 [facility] [address] [id number] [address] [place] [address], [place] [address] 18 Apr, 2013 [facility] [address] [id number] [address] [place] [address], [place] [address] 18 Apr, 2013 [facility] [address] [id number] [address] [place] [address], [place] [address] 18 Apr, 2013 [facility] [address] [id number] [address] [place] [address], [place] [address] 18 Apr, 2013 [facility] [address] [id number] [address] [place] [address], [place] [address] 04 Apr, 2013 [facility] [address] [id number] [address] [place] [address], [place] [address] Apr, [facility] [address] [id number] [facility] [address] Mar, [facility] [address] [id number] [address] [place] [address], [place] [address] Mar, [facility] [address] [id number] [address] [place] [address], [place] [address] Mar, [facility] [address] [id number] [address] [place] [address], [place] [address] Mar, [facility] [address] [id number] [address] [place] [address], [place] [address] Mar, [facility] [address] [id number] [address] [place] [address], [place] [address] Mar, [facility] [address] [id number] [address] [place] [address], [place] [address] Feb, [facility] [address] [id number] [address] [place] [address], [place] [address] Feb, [facility] [address] [id number] [address] [place] [address], [place] [address] Jan, [facility] [address] [id number] [address] [place] [address], [place] [address] Jan, [facility] [address] [id number] [address] [place] [address], [place] [address] Jan, [facility] [address] [id number] [address] [place] [address], [place] [address] Jan, [facility] [address] [id number] [address] [place] [address], [place] [address] December, [facility] [address] [id number] [address] [place] [address], [place] [address] December, [facility] [address] [id number] [address] [place] [address], [place] [address] December, [facility] [address] [id number] [address] [place] [address], [place] [address] December, [facility] [address] [id number] [address] [place] [address], [place] [address] December, [facility] [address] [id number] [address] [place] [address], [place] [address] December, [facility] [address] [id number] [address] [place] [address], [place] [address] December, [facility] [address] [id number] [address] [place] [address], [place] [address] December, [facility] [address] [id number] [address] [place] [address], [place] [address] December, [facility] [address] [id number] [address] [place] [address], [place] [address] Nov, [facility] [address] [id number] [address] [place] [address], [place] [address] Nov, [facility] [address] [id number] [address] [place] [address], [place] [address] Nov, [facility] [address] [id number] [address] [place] [address], [place] [address] Nov, [facility] [address] [id number] [address] [place] [address], [place] [address] Nov, [facility] [address] [id number] [address] [place] [address], [place] [address] Nov, [facility] [address] [id number] [address] [place] [address], [place] [address] Nov, [facility] [address] [id number] [address] [place] [address], [place] [address] Nov, [facility] [address] [id number] [address] [place] [address], [place] [address] Nov, [facility] [address] [id number] [address] [place] [address], [place] [address] Nov, [facility] [address] [id number] [address] [place] [address], [place] [address] Oct, [facility] [address] [id number] [address] [place] [address], [place] [address] Oct, [facility] [address] [id number] [address] [place] [address], [place] [address] Sep, [facility] [address] [id number] [address] [place] [address], [place] [address] Sep, [facility] [address] [id number] [address] [place] [address], [place] [address] Aug, [facility] [address] [id number] [address] [place] [address], [place] [address] Aug, [facility] [address] [id number] [address] [place] [address], [place] [address] Aug, [facility] [address] [id number] [address] [place] [address], [place] [address] Aug, [facility] [address] [id number] [address] [place] [address], [place] [address] Jul, [facility] [address] [id number] [address] [place] [address], [place] [address] Jul, [facility] [address] [id number] [address] [place] [address], [place] [address] Jul, [facility] [address] [id number] [address] [place] [address], [place] [address] Jul, [facility] [address] [id number] [address] [place] [address], [place] [address] Jun, [facility] [address] [id number] [address] [place] [address], [place] [address] Jun, [facility] [address] [id number] [address] [place] [address], [place] [address] May, [facility] [address] [id number] [address] [place] [address], [place] [address] May, [facility] [address] [id number] [address] [place] [address], [place] [address] May, [facility] [address] [id number] [address] [place] [address], [place] [address] May, [facility] [address] [id number] [address] [place] [address], [place] [address] May, [facility] [address] [id number] [address] [place] [address], [place] [address] May, [facility] [address] [id number] [address] [place] [address], [place] [address] Apr, [facility] [address] [id number] [address] [place] [address], [place] [address] Apr, [facility] [address] [id number] [address] [place] [address], [place] [address] Apr, [facility] [address] [id number] [address] [place] [address], [place] [address] Feb, [facility] [address] [id number] [address] [place] [address], [place] [address] Jan, [facility] [address] [id number] [address] [place] [address], [place] [address] Jan, [facility] [address] [id number] [address] [place] [address], [place] [address] Jan, [facility] [address] [id number] [address] [place] [address], [place] [address] Jan, [facility] [address] [id number] [address] [place] [address], [place] [address] December, [facility] [address] [id number] [address] [place] [address], [place] [address] December, [facility] [address] [id number] [address] [place] [address], [place] [address] 24 Nov, 2012 [facility] [address] [id number] [facility] [place] [address] Nov, [facility] [address] [id number] [address] [place] [address], [place] [address] Nov, [facility] [address] [id number] [address] [place] [address], [place] [address] Nov, [facility] [address] [id number] [address] [place] [address], [place] [address] Nov, [facility] [address] [id number] [address] [place] [address], [place] [address] Nov, [facility] [address] [id number] [address] [place] [address], [place] [address] Nov, [facility] [address] [id number] [address] [place] [address], [place] [address] 27 Oct, 2012 [facility] [address] [id number] [address] [place] [address], [place] [address] 18 Oct, 2012 [facility] [address] [id number] [address] [place] [address], [place] [address] 14 Oct, 2012 [facility] [address] [id number] [address] [place] [address], [place] [address] 13 Oct, 2012 [facility] [address] [id number] [address] [place] [address], [place] [address] 12 Oct, 2012 [facility] [address] [id number] [address] [place] [address], [place] [address] 11 Oct, 2012 [facility] [address] [id number] [address] [place] [address], [place] [address] 08 Oct, 2012 [facility] [address] [id number] [address] [place] [address], [place] [address] 20 Sep, 2012 [facility] [address] [id number] [address] [place] [address], [place] [address] Sep, [facility] [address] [id number] [address] [place] [address] Aug, [facility] [address] [id number] [address] [place] [address] Aug, [facility] [address] [id number] [address] [place] [address] Jul, [facility] [address] [id number] [address] [place] [address] Jul, [facility] [address] [id number] [address] [place] [address] Jul, [facility] [address] [id number] [address] [place] [address] Jul, [facility] [address] [id number] [address] [place] [address] Jul, [facility] [address] [id number] [address] [place] [address] Jul, [facility] [address] [id number] [address] [place] [address] Jul, [facility] [address] [id number] [address] [place] [address] Jul, [facility] [address] [id number] [address] [place] [address] Jun, [facility] [address] [id number] [address] [place] [address] Jun, IMMUNIZATIONS No Known Immunizations SOCIAL HISTORY Never Assessed REASON FOR VISIT Controlled Med Refill PLAN OF CARE VITAL SIGNS MEDICATIONS Medication Instructions Dosage Frequency Start Date End Date Duration S tatus Hydrocodone-Acetaminophen 5-325 MG Orally 3 times a day prn must last 4 weeks 1 Tablet Mar, 28 days Active RESULTS No Results PROCEDURES [...]
--- OUTSIDE RECORDS SUMMARY | 2020-02-11 03:23 | XMS REPORT ---
Author Author Madeline MANCUSO Organization [facility] Address [address] [place] [address] Care Team Providers Care Lot Porter Name Role Phone JASON MANCUSO Unavailable PROBLEMS Type Condition ICD9-CM Code AUV18-OT Code Onset Dates Condition S tatus SNOMED Code Problem Chronic pain G89.29 Active 5668655 1 Problem Pre-diabetes R73.09 Active 8023257 02 Problem Essential hypertension I10 Active 16210813 Problem BMI 45.0-49.9, adult Z68.42 Active 818314311 Problem Numbness and tingling in hands R20.2 Active 316424881 Problem GERD (gastroesophageal reflux disease) K21.9 Active 087003904 Problem Stasis dermatitis of both legs I87.2 Active 58514403 Problem History of abnormal cervical Pap smear Z87.898 Active 239752207 ALLERGIES No Information ENCOUNTERS Encounter Location Date Diagnosis [facility] [address] [facility] [id number] [address] [place] [address] Mar, Poison josep L23.7 [facility] [address] [facility] [id number] [address] [place] [address] Mar, Chronic pain G89.29 [facility] [address] [facility] [id number] [address] [place] [address] Feb, Chronic pain G89.29 [facility] [address] [facility] [id number] [address] [place] [address] Feb, Poison josep L23.7 [facility] [address] [facility] [id number] [address] [place] [address] Jan, Chronic pain G89.29 [facility] [address] [facility] [id number] [address] [place] [address] December, Chronic pain G89.29 [place] [address] [facility] [id number] [address] [place] [address] Nov, Long-term use of high-risk m edication Z79.899 [place] [address] [place] [id number] [address] [place] [address] Nov, Chronic pain G89.29 [place] [address] [place] [id number] [address] [place] [address] Oct, Chronic pain G89.29 ; Pre-di abetes R73.09 ; Long-term use of high- risk medication Z79.899 ; Allergic rhinitis, unspecified seasonality, unspecified trigger J30.9 ; BMI 45.0-49.9, adult Z68.42 and Essential hypertension I10 [place] [address] [place] [id number] [place] [address] Oct, Chronic pain G89.29 [place] [address] [address] Sep, Chronic pain G89.29 [place] [address] [place] [id number] [place] [address] Aug, Chronic pain G89.29 [place] [address] [place] [id number] [address] [place] [address] Jul, [place] [address] [address] Jul, [place] [address] [address] Jun, Chronic pain G89.29 ; BMI 45 .0-49.9, adult Z68.42 ; Pre-diabetes R73.09 ; Essential hypertension I10 ; GERD (gastroesophageal reflux disease) K21.9 ; Yeast dermatitis B37.2 ; Dysuria R30.0 ; Acute non-recurrent maxillary sinusitis J01.00 and Acute cystitis with hematuria N30.01 [place] [address] [place] [id number] [place] [address] Jun, Chronic pain G89.29 [place] [address] [facility] [id number] [address] [place] [address] Jun, Acute non-recurrent maxillar y sinusitis J01.00 and BMI 45.0-49.9, adult Z68.42 [place] [address] [place] [id number] [address] [place] [address] May, [place] [address] [place] [id number] [address] [place] [address] May, Chronic pain G89.29 [place] [address] [facility] [id number] [address] [place] [address] May, [place] [address] [place] [id number] [address] [place] [address] Apr, Chronic pain G89.29 [place] [address] [place] [id number] [address] [place] [address] Mar, [place] [address] [place] [id number] [address] [place] [address] Mar, Essential hypertension I10 a nd Pre-diabetes R73.09 [place] [address] [address] Mar, Chronic pain G89.29 ; Essent ial hypertension I10 ; Depressive disorder, not elsewhere classified F32.9 ; GERD (gastroesophageal reflux disease) K21.9 ; Pre-diabetes R73.09 ; Stasis dermatitis of both legs I87.2 and Acute non-recurrent maxillary sinusitis J01.00 [place] [address] [place] [id number] [address] [place] [address] Mar, Chronic pain G89.29 [place] [address] [place] [id number] [address] [place] [address] Mar, Achilles tendinitis of right lower extremity M76.61 and Tinea corporis B35.4 [place] [address] [place] [id number] [address] [place] [address] Feb, Yeast dermatitis B37.2 [facility] [address] [id number] [address] [place] [address] Feb, Candidal intertrigo B37.2 an d Acute right ankle pain M25.571 [facility] [address] [facility] [id number] [address] [place] [address] Feb, Chronic pain G89.29 [facility] [address] [facility] [id number] [address] [place] [address] Jan, [place] [address] [facility] [id number] [address] [place] [address] Jan, Chronic pain G89.29 [place] [address] [facility] [id number] [address] [place] [address] December, Chronic pain G89.29 ; Essent ial hypertension I10 ; Depressive disorder, not elsewhere classified F32.9 ; GERD (gastroesophageal reflux disease) K21.9 ; Pre-diabetes R73.09 ; Screening breast examination Z12.39 ; Stasis dermatitis of both legs I87.2 and Yeast dermatitis B37.2 [place] [address] [facility] [id number] [address] [place] [address] Nov, Chronic pain G89.29 [place] [address] [facility] [id number] [address] [place] [address] Nov, Cellulitis of left lower ext remity L03.116 [place] [address] [facility] [id number] [address] [place] [address] Nov, Cellulitis of left lower ext remity L03.116 [place] [address] [facility] [id number] [address] [place] [address] Oct, Yeast dermatitis B37.2 [place] [address] [facility] [id number] [address] [place] [address] Oct, Chronic pain G89.29 [place] [address] [address] Sep, Chronic pain G89.29 ; Essent ial hypertension I10 ; Depressive disorder, not elsewhere classified F32.9 and GERD (gastroesophageal reflux disease) K21.9 [facility] [address] [address] Aug, Chronic pain G89.29 [place] [address] [address] Aug, Cough R05 ; Rash R21 and Vinay h and nonspecific skin eruption R21 [address] [address] Jul, Chronic pain G89.29 [place] [address] [address] Jun, Chronic pain G89.29 ; Bronch itis J40 ; Essential hypertension I10 ; Depressive disorder, not elsewhere classified F32.9 ; GERD (gastroesophageal reflux disease) K21.9 and History of long-term use of multiple prescription drugs Z92.29 [place] [address] [address] Jun, Bronchitis J40 ; Chills R68. 83 and Sore throat J02.9 [place] [address] [address] May, [place] [address] [address] Apr, [facility] [address] [address] 19 Apr, 2016 Acute mucoid otitis media of both ears H65.113 [place] [address] [address] 07 Apr, 2016 Yeast dermatitis B37.2 and H ematuria R31.9 [place] [address] [address] Mar, [facility] [address] [facility] [id number] [address] [place] [address] Mar, [facility] [address] [facility] [id number] [address] [place] [address] Feb, Left anterior knee pain M25. 562 [place] [address] [facility] [id number] [address] [place] [address] Feb, Chronic pain G89.29 ; Essent ial hypertension I10 ; Depressive disorder, not elsewhere classified F32.9 ; GERD (gastroesophageal reflux disease) K21.9 and History of long-term use of multiple prescription drugs Z92.29 [place] [address] [facility] [id number] [address] [place] [address] Jan, [place] [address] [facility] [id number] [address] [place] [address] Jan, Well woman exam Z01.419 ; BM I 45.0-49.9, adult Z68.42 ; Family history of diabetes mellitus Z83.3 and Chronic pain G89.29 [place] [address] [facility] [id number] [address] [place] [address] December, Chronic pain G89.29 ; Essent ial hypertension I10 ; Depressive disorder, not elsewhere classified F32.9 ; GERD (gastroesophageal reflux disease) K21.9 ; 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 ; History of long-term use of multiple prescription drugs Z92.29 and Obesity E66.9 [place] [address] [facility] [id number] [address] [place] [address] Oct, [place] [address] [facility] [id number] [address] [place] [address] Oct, Well woman exam Z01.419 ; BM [...] smear Z12.4 and No natural teeth K00.0 [place] [address] [facility] [id number] [address] [place] [address] Oct, [place] [address] [place] [id number] [address] [place] [address] Sep, Chronic pain G89.29 ; Essent ial hypertension I10 ; GERD (gastroesophageal reflux disease) K21.9 ; 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 ; Skin infection L08.9 and History of long-term use of multiple prescription drugs Z92.29 [place] [address] [facility] [id number] [address] [place] [address] Aug, [place] [address] [place] [id number] [address] [place] [address] Jul, [place] [address] [place] [id number] [address] [place] [address] Jul, [place] [address] [place] [id number] [address] [place] [address] Jul, Upper respiratory infection J06.9 [place] [address] [facility] [id number] [address] [place] [address] Jul, Depressive disorder, not els ewhere classified F32.9 [place] [address] [facility] [id number] [address] [place] [address] Jul, Chronic pain 338.29 [place] [address] [facility] [id number] [address] [place] [address] Jul, Chronic pain G89.29 [place] [address] [facility] [id number] [address] [place] [address] Jun, Poison josep L23.7 [place] [address] [facility] [id number] [address] [place] [address] Jun, Allergic contact dermatitis due to plants, except food L23.7 [place] [address] [address] Jun, Essential hypertension I10 ; Chronic pain G89.29 ; GERD (gastroesophageal reflux disease) K21.9 and Numbness and tingling in hands R20.2 [place] [address] [address] May, [place] [address] [address] Apr, [place] [address] [address] Mar, [place] [address] [address] Feb, Abdominal pain, left lateral 789.09 and Constipation 564.[address] [address] Feb, Depressive disorder, not els ewhere classified 311 and No condition on [place] V71.09 [place] [address] [address] Feb, Spider bite 989.5 and Depres homar 311 [place] [address] [address] Feb, [place] [address] [address] Feb, Chronic pain 338.29 ; Arthro zonia 716.90 and GERD (gastroesophageal reflux disease) 530.81 [place] [address] [address] Jan, Insect bites 919.4 [place] [address] [address] Jan, [place] [address] [address] December, Skin infection, bacterial 68 6.9 ; Conjunctivitis 372.30 and Insect bites 919.4 [facility] [address] [id number] [address] [place] [address] December, Chronic pain 338.29 ; Arthro zonia 716.90 ; Skin infection, bacterial 686.9 and Conjunctivitis 372.30 [facility] [address] [id number] [address] [place] [address] December, [facility] [address] [id number] [address] [place] [address] Nov, [facility] [address] [id number] [address] [place] [address] Nov, [facility] [address] [id number] [address] [place] [address] Oct, [facility] [address] [id number] [address] [place] [address] Oct, [facility] [address] [id number] [address] [place] [address] Sep, [facility] [address] [id number] [address] [place] [address] Sep, [facility] [address] [id number] [address] [place] [address] Aug, [facility] [address] [id number] [address] [place] [address] Aug, [facility] [address] [id number] [address] [place] [address] Aug, [facility] [address] [id number] [address] [place] [address] Aug, [facility] [address] [id number] [address] [place] [address] Jul, [facility] [address] [id number] [address] [place] [address] Jul, [facility] [address] [id number] [address] [place] [address], [place] [address] Jul, [facility] [address] [id number] [address] [place] [address], [place] [address] Jul, [facility] [address] [id number] [address] [place] [address], [place] [address] Jul, [facility] [address] [id number] [address] [place] [address], [place] [address] Jul, [facility] [address] [id number] [address] [place] [address], [place] [address] Jul, [facility] [address] [id number] [address] [place] [address], [place] [address] Jul, [facility] [address] [id number] [address] [place] [address], [place] [address] Jul, [facility] [address] [id number] [address] [place] [address], [place] [address] Jun, [facility] [address] [id number] [address] [place] [address], [place] [address] Jun, [facility] [address] [id number] [address] [place] [address], [place] [address] Jun, [facility] [address] [id number] [address] [place] [address], [place] [address] Jun, [facility] [address] [id number] [address] [place] [address], [place] [address] Jun, [facility] [address] [id number] [address] [place] [address], [place] [address] Jun, [facility] [address] [id number] [address] [place] [address], [place] [address] Jun, [facility] [address] [id number] [address] [place] [address], [place] [address] Jun, [facility] [address] [id number] [address] [place] [address], [place] [address] 17 May, 2014 [facility] [address] [id number] [address] [place] [address], [place] [address] 17 May, 2014 [facility] [address] [id number] [address] [place] [address], [place] [address] 16 May, 2014 [facility] [address] [id number] [address] [place] [address], [place] [address] May, [facility] [address] [id number] [address] [place] [address], [place] [address] May, [facility] [address] [id number] [address] [place] [address], [place] [address] 26 Apr, 2014 [facility] [address] [id number] [address] [place] [address], [place] [address] Apr, [facility] [address] [id number] [address] [place] [address], [place] [address] Apr, [facility] [address] [id number] [address] [place] [address], [place] [address] 25 Apr, 2013 [facility] [address] [id number] [address] [place] [address], [place] [address] 18 Apr, 2014 [facility] [address] [id number] [address] [place] [address], [place] [address] 18 Apr, 2014 [facility] [address] [id number] [address] [place] [address], [place] [address] 18 Apr, 2013 [facility] [address] [id number] [address] [place] [address], [place] [address] 18 Apr, 2013 [facility] [address] [id number] [address] [place] [address], [place] [address] 04 Apr, 2014 [facility] [address] [id number] [address] [place] [address], [place] [address] 04 Apr, 2014 [facility] [address] [id number] [address] [place] [address], [place] [address] Mar, [facility] [address] [id number] [facility] [place] [address] Mar, [facility] [address] [id number] [address] [place] [address], [place] [address] Mar, [facility] [address] [id number] [address] [place] [address], [place] [address] Mar, [facility] [address] [id number] [address] [place] [address], [place] [address] Mar, [facility] [address] [id number] [address] [place] [address], [place] [address] Mar, [facility] [address] [id number] [address] [place] [address], [place] [address] Feb, [facility] [address] [id number] [address] [place] [address], [place] [address] Feb, [facility] [address] [id number] [address] [place] [address], [place] [address] Jan, [facility] [address] [id number] [address] [place] [address], [place] [address] Jan, [facility] [address] [id number] [address] [place] [address], [place] [address] Jan, [facility] [address] [id number] [address] [place] [address], [place] [address] Jan, [facility] [address] [id number] [address] [place] [address], [place] [address] December, [facility] [address] [id number] [address] [place] [address], [place] [address] December, [facility] [address] [id number] [address] [place] [address], [place] [address] December, [facility] [address] [id number] [address] [place] [address], [place] [address] December, [facility] [address] [id number] [address] [place] [address], [place] [address] December, [facility] [address] [id number] [address] [place] [address], [place] [address] December, [facility] [address] [id number] [address] [place] [address], [place] [address] December, [facility] [address] [id number] [address] [place] [address], [place] [address] December, [facility] [address] [id number] [address] [place] [address], [place] [address] December, [facility] [address] [id number] [address] [place] [address], [place] [address] Nov, [facility] [address] [id number] [address] [place] [address], [place] [address] Nov, [facility] [address] [id number] [address] [place] [address], [place] [id number] Nov, [facility] [address] [id number] [address] [place] [address], [place] [id number] Nov, [facility] [address] [id number] [address] [place] [address], [place] [phone] Nov, [facility] [address] [id number] [address] [place] [address], [place] [address] Nov, [facility] [address] [id number] [address] [place] [address], [place] [id number] Nov, [facility] [address] [id number] [address] [place] [address], [place] [id number] Nov, [facility] [address] [id number] [address] [place] [address], [place] [id number] Nov, [facility] [address] [id number] [address] [place] [address], [place] [id number] Nov, [facility] [address] [id number] [address] [place] [address], [place] [id number] Oct, [facility] [address] [id number] [address] [place] [address], [place] [id number] Oct, [facility] [address] [id number] [address] [place] [address], [place] [address] Sep, [facility] [address] [id number] [address] [place] [address], [place] [id number] Sep, [facility] [address] [id number] [address] [place] [address], [place] [id number] Aug, [facility] [address] [id number] [address] [place] [address], [place] [address] Aug, [facility] [address] [id number] [address] [place] [address], [place] [id number] Aug, [facility] [address] [id number] [address] [place] [address], [place] [address] Aug, [facility] [address] [id number] [address] [place] [address], [place] [id number] Jul, [facility] [address] [id number] [address] [place] [address], [place] [id number] Jul, [facility] [address] [id number] [address] [place] [address], [place] [id number] Jul, [facility] [address] [id number] [address] [place] [address], [place] [id number] Jul, [facility] [address] [id number] [address] [place] [address], [place] [id number] Jun, [facility] [address] [id number] [address] [place] [address], [place] [id number] Jun, [facility] [address] [id number] [address] [place] [address], [place] [address] May, [facility] [address] [id number] [address] [place] [address], [place] [id number] May, [facility] [address] [id number] [address] [place] [address], [place] [address] May, [facility] [address] [id number] [address] [place] [address], [place] [id number] May, [facility] [address] [id number] [address] [place] [address], [place] [address] May, [facility] [address] [id number] [address] [place] [address], [place] [address] May, [facility] [address] [id number] [address] [place] [address], [place] [id number] Apr, [facility] [address] [id number] [address] [place] [address], [place] [address] Apr, [facility] [address] [id number] [address] [place] [address], [place] [id number] Apr, [facility] [address] [id number] [address] [place] [address], [place] [id number] Feb, [facility] [address] [id number] [address] [place] [address], [place] [id number] Jan, [facility] [address] [id number] [address] [place] [address], [place] [id number] Jan, [facility] [address] [id number] [address] [place] [address], [place] [id number] Jan, [facility] [address] [id number] [address] [place] [address], [place] [phone] Jan, [facility] [address] [id number] [address] [place] [address], [place] [id number] December, [facility] [address] [id number] [address] [place] [address], [place] [phone] December, [facility] [address] [id number] [address] [place] [address], [place] [phone] Nov, [facility] [address] [id number] [address] [place] [address], [place] [id number] Nov, [facility] [address] [id number] [address] [place] [address], [place] [phone] Nov, [facility] [address] [id number] [facility] [place] [id number] 11 Nov, 2012 [facility] [address] [id number] [address] [place] [address], [place] [id number] 08 Nov, 2012 [facility] [address] [id number] [address] [place] [address], [place] [id number] 08 Nov, 2012 [facility] [address] [id number] [address] [place] [address], [place] [id number] 03 Nov, 2012 [facility] [address] [id number] [address] [place] [address], [place] [id number] 27 Oct, 2012 [facility] [address] [id number] [address] [place] [address], [place] [id number] 18 Oct, 2012 [facility] [address] [id number] [address] [place] [address], [place] [id number] 14 Oct, 2012 [facility] [address] [id number] [address] [place] [address], [place] [id number] 13 Oct, 2012 [facility] [address] [id number] [address] [place] [address], [place] [id number] 12 Oct, 2012 [facility] [address] [id number] [address] [place] [address], [place] [id number] Oct, [facility] [address] [id number] [address] [place] [address], [place] [phone] Oct, [facility] [address] [id number] [address] [place] [address], [place] [phone] Sep, [facility] [address] [id number] [address] [place] [address], [place] [phone] Sep, [facility] [address] [id number] [address] [place] [address], [place] [phone] Aug, [facility] [address] [id number] [address] [place] [address], [place] [id number] Aug, [facility] [address] [id number] [address] [place] [id number] Jul, [facility] [address] [id number] [address] [place] [id number] Jul, [facility] [address] [id number] [address] [place] [phone] Jul, [facility] [address] [id number] [address] [place] [phone] Jul, [facility] [address] [id number] [address] [place] [phone] Jul, [facility] [address] [id number] [address] [place] [id number] Jul, [facility] [address] [id number] [address] [place] [phone] Jul, [facility] [address] [id number] [address] [place] [id number] Jul, [facility] [address] [id number] [address] [place] [id number] Jun, [facility] [address] [id number] [address] [place] [phone] Jun, IMMUNIZATIONS No Known Immunizations SOCIAL HISTORY Never Assessed REASON FOR VISIT Controlled Med Refill PLAN OF CARE VITAL SIGNS MEDICATIONS Medication Instructions Dosage Frequency Start Date End Date Duration S tatus Hydrocodone-Acetaminophen 5-325 MG Orally 3 times a day prn must last 4 weeks 1 Tablet Feb, Active RESULTS No Results PROCEDURES No Known [...]
--- OUTSIDE RECORDS SUMMARY | 2020-02-11 03:23 | XMS REPORT ---
Author Author Madeline MANCUSO Organization [facility] Address [address] [place] [address] Care Team Providers Care Site Identification Specialist Name Role Phone JASON MANCUSO Unavailable PROBLEMS Type Condition ICD9-CM Code [id number] Code Onset Dates Condition S tatus SNOMED Code Problem Chronic pain G89.29 Active 8952526 1 Problem Pre-diabetes R73.09 Active 0126883 02 Problem Essential hypertension I10 Active 85872408 Problem BMI 45.0-49.9, adult Z68.42 Active 984658714 Problem Numbness and tingling in hands R20.2 Active 076273906 Problem GERD (gastroesophageal reflux disease) K21.9 Active 733592239 Problem Stasis dermatitis of both legs I87.2 Active 81788449 Problem History of abnormal cervical Pap smear Z87.898 Active 549104970 ALLERGIES Substance Reaction Event Type Date Status PredniSONE hives Drug Allergy Feb, Active Meloxicam hives Drug Allergy Feb, Active Levaquin itching Drug Allergy Feb, Active Diflucan itching Drug Allergy Feb, Active ENCOUNTERS Encounter Location Date Diagnosis [facility] [address] [facility] [id number] [address] [place] [phone] Mar, Poison josep L23.7 [facility] [address] [facility] [id number] [address] [place] [address] Mar, Chronic pain G89.29 [facility] [address] [facility] [id number] [address] [place] [address] Feb, Chronic pain G89.29 [facility] [address] [facility] [id number] [address] [place] [address] Feb, Poison josep L23.7 [facility] [address] [facility] [id number] [address] [place] [address] Jan, Chronic pain G89.29 [facility] [address] [facility] [id number] [address] [place] [address] December, Chronic pain G89.29 [facility] [address] [facility] [id number] [address] [place] [address] Nov, Long-term use of high-risk m edication Z79.899 [place] [address] [facility] [id number] [address] [place] [phone] Nov, Chronic pain G89.29 [place] [address] [address] [facility] [id number] [address] [place] [address] Oct, Chronic pain G89.29 ; Pre-di abetes R73.09 ; Long-term use of high- risk medication Z79.899 ; Allergic rhinitis, unspecified seasonality, unspecified trigger J30.9 ; BMI 45.0-49.9, adult Z68.42 and Essential hypertension I10 [place] [address] [address] [place] [id number] [address] [place] [address] Oct, Chronic pain G89.29 [place] [address] [address] [place] [id number] [place] [address] Sep, Chronic pain G89.29 [place] [address] [address] [place] [id number] [address] [place] [address] Aug, Chronic pain G89.29 [place] [address] [address] [place] [id number] [address] [place] [address] Jul, [place] [address] [place] [id number] [address] [place] [address] Jul, [place] [address] [place] [id number] [place] [address] Jun, Chronic pain G89.29 ; BMI 45 .0-49.9, adult Z68.42 ; Pre-diabetes R73.09 ; Essential hypertension I10 ; GERD (gastroesophageal reflux disease) K21.9 ; Yeast dermatitis B37.2 ; Dysuria R30.0 ; Acute non-recurrent maxillary sinusitis J01.00 and Acute cystitis with hematuria N30.01 [facility] [address] [id number] [address] [place] [address] 13 Jun, 2017 Chronic pain G89.29 [place] [address] [id number] [address] [place] [address] Jun, Acute non-recurrent maxillar y sinusitis J01.00 and BMI 45.0-49.9, adult Z68.42 [place] [address] [id number] [address] [place] [address] May, [place] [address] [id number] [address] [place] [address] May, Chronic pain G89.29 [place] [address] [id number] [address] [place] [address] May, [place] [address] [id number] [address] [place] [address] Apr, Chronic pain G89.29 [place] [address] [id number] [address] [place] [address] Mar, [place] [address] [facility] [id number] [address] [place] [address] Mar, Essential hypertension I10 a nd Pre-diabetes R73.09 [place] [address] [address] [facility] [id number] [address] [place] [address] Mar, Chronic pain G89.29 ; Essent ial hypertension I10 ; Depressive disorder, not elsewhere classified F32.9 ; GERD (gastroesophageal reflux disease) K21.9 ; Pre-diabetes R73.09 ; Stasis dermatitis of both legs I87.2 and Acute non-recurrent maxillary sinusitis J01.00 [place] [address] [id number] [address] [place] [address] Mar, Chronic pain G89.29 [place] [address] [facility] [id number] [address] [place] [address] Mar, Achilles tendinitis of right lower extremity M76.61 and Tinea corporis B35.4 [place] [address] [address] [place] [id number] [address] [place] [address] Feb, Yeast dermatitis B37.2 [place] [address] [address] [place] [id number] [address] [place] [address] Feb, Candidal intertrigo B37.2 an d Acute right ankle pain M25.571 [place] [address] [address] [place] [id number] [address] [place] [address] Feb, Chronic pain G89.29 [place] [address] [address] Jan, [place] [address] [address] Jan, Chronic pain G89.29 [place] [address] [address] December, Chronic pain G89.29 ; Essent ial hypertension I10 ; Depressive disorder, not elsewhere classified F32.9 ; GERD (gastroesophageal reflux disease) K21.9 ; Pre-diabetes R73.09 ; Screening breast examination Z12.39 ; Stasis dermatitis of both legs I87.2 and Yeast dermatitis B37.2 [place] [id number] [place] [address] Nov, Chronic pain G89.29 [place] [address] [place] [id number] [address] [place] [address] Nov, Cellulitis of left lower ext remity L03.116 [place] [address] [address] [place] [id number] [address] [place] [address] Nov, Cellulitis of left lower ext remity L03.116 [place] [address] [place] [id number] [address] [place] [address] Oct, Yeast dermatitis B37.2 [place] [address] [address] [place] [id number] [address] [place] [address] Oct, Chronic pain G89.29 [place] [address] [address] Sep, Chronic pain G89.29 ; Essent ial hypertension I10 ; Depressive disorder, not elsewhere classified F32.9 and GERD (gastroesophageal reflux disease) K21.9 [place] [address] [address] Aug, Chronic pain G89.29 [place] [address] [address] Aug, Cough R05 ; Rash R21 and Vinay h and nonspecific skin eruption R21 [address] [address] Jul, Chronic pain G89.29 [place] [address] [address] Jun, Chronic pain G89.29 ; Bronch itis J40 ; Essential hypertension I10 ; Depressive disorder, not elsewhere classified F32.9 ; GERD (gastroesophageal reflux disease) K21.9 and History of long-term use of multiple prescription drugs Z92.29 [place] [address] [address] Jun, Bronchitis J40 ; Chills R68. 83 and Sore throat J02.9 [facility] [address] [address] May, [place] [address] [address] 29 Apr, 2016 [facility] [address] [place] [id number] [place] [address] 19 Apr, 2016 Acute mucoid otitis media of both ears H65.113 [place] [address] [address] Apr, Yeast dermatitis B37.2 and H ematuria R31.9 [place] [address] [address] Mar, [place] [address] [place] [id number] [place] [address] Mar, [place] [address] [address] Feb, Left anterior knee pain M25. 562 [place] [address] [address] Feb, Chronic pain G89.29 ; Essent ial hypertension I10 ; Depressive disorder, not elsewhere classified F32.9 ; GERD (gastroesophageal reflux disease) K21.9 and History of long-term use of multiple prescription drugs Z92.29 [place] [address] [address] Jan, [place] [address] [address] Jan, Well woman exam Z01.419 ; BM I 45.0-49.9, adult Z68.42 ; Family history of diabetes mellitus Z83.3 and Chronic pain G89.29 [place] [address] [address] December, Chronic pain G89.29 ; Essent ial hypertension I10 ; Depressive disorder, not elsewhere classified F32.9 ; GERD (gastroesophageal reflux disease) K21.9 ; 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 ; History of long-term use of multiple prescription drugs Z92.29 and Obesity E66.[address] [address] Oct, [place] [address] [address] Oct, Well woman exam Z01.419 ; BM [...] smear Z12.4 and No natural teeth K00.0 [place] [address] [address] Oct, [place] [address] [address] Sep, Chronic pain G89.29 ; Essent ial hypertension I10 ; GERD (gastroesophageal reflux disease) K21.9 ; 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 ; Skin infection L08.9 and History of long-term use of multiple prescription drugs Z92.29 [place] [address] [address] Aug, [place] [address] [address] Jul, [place] [address] [address] Jul, [place] [address] [address] Jul, Upper respiratory infection J06.9 [place] [address] [address] [place] [id number] [place] [address] Jul, Depressive disorder, not els ewhere classified F32.9 [place] [address] [address] [place] [id number] [address] [place] [address] Jul, Chronic pain 338.29 [place] [address] [address] [place] [id number] [address] [place] [address] Jul, Chronic pain G89.29 [place] [address] [address] [place] [id number] [address] [place] [address] Jun, Poison josep L23.7 [place] [address] [address] 11 Jun, 2015 Allergic contact dermatitis due to plants, except food L23.7 [place] [address] [address] 03 Jun, 2015 Essential hypertension I10 ; Chronic pain G89.29 ; GERD (gastroesophageal reflux disease) K21.9 and Numbness and tingling in hands R20.2 [place] [address] [address] May, [place] [address] [address] Apr, [place] [address] [address] Mar, [place] [address] [address] Feb, Abdominal pain, left lateral 789.09 and Constipation 564.00 [place] [address] [address] Feb, Depressive disorder, not els ewhere classified 311 and No condition on [place] II V71.09 [place] [address] [address] Feb, Spider bite 989.5 and Depres homar 311 [place] [address] [address] Feb, [place] [address] [address] Feb, Chronic pain 338.29 ; Arthro zonia 716.90 and GERD (gastroesophageal reflux disease) 530.81 [place] [address] [address] Jan, Insect bites 919.4 [place] [address] [address] Jan, [facility] [address] [id number] [address] [place] [address] December, Skin infection, bacterial 68 6.9 ; Conjunctivitis 372.30 and Insect bites 919.4 [facility] [address] [id number] [address] [place] [address] December, Chronic pain 338.29 ; Arthro zonia 716.90 ; Skin infection, bacterial 686.9 and Conjunctivitis 372.30 [facility] [address] [id number] [address] [place] [address] December, [facility] [address] [id number] [address] [place] [address] Nov, [facility] [address] [id number] [address] [place] [address] Nov, [facility] [address] [id number] [address] [place] [address] Oct, [facility] [address] [id number] [address] [place] [address] Oct, [facility] [address] [id number] [address] [place] [address] Sep, [facility] [address] [id number] [address] [place] [address] Sep, [facility] [address] [id number] [address] [place] [address] Aug, [facility] [address] [id number] [address] [place] [address] Aug, [facility] [address] [id number] [address] [place] [address] Aug, [facility] [address] [id number] [address] [place] [address] Aug, [facility] [address] [id number] [address] [place] [address] 30 Jul, 2014 [facility] [address] [id number] [address] [place] [address], [place] [address] Jul, [facility] [address] [id number] [address] [place] [address], [place] [address] Jul, [facility] [address] [id number] [address] [place] [address], [place] [address] 15 Jul, 2014 [facility] [address] [id number] [address] [place] [address], [place] [address] Jul, [facility] [address] [id number] [address] [place] [address], [place] [address] Jul, [facility] [address] [id number] [address] [place] [address], [place] [address] Jul, [facility] [address] [id number] [address] [place] [address], [place] [address] Jul, [facility] [address] [id number] [address] [place] [address], [place] [address] Jul, [facility] [address] [id number] [address] [place] [address], [place] [address] Jun, [facility] [address] [id number] [address] [place] [address], [place] [address] Jun, [facility] [address] [id number] [address] [place] [address], [place] [address] Jun, [facility] [address] [id number] [address] [place] [address], [place] [address] Jun, [facility] [address] [id number] [address] [place] [address], [place] [address] Jun, [facility] [address] [id number] [address] [place] [address], [place] [address] Jun, [facility] [address] [id number] [address] [place] [address], [place] [address] Jun, [facility] [address] [id number] [address] [place] [address], [place] [address] Jun, [facility] [address] [id number] [address] [place] [address], [place] [address] May, [facility] [address] [id number] [address] [place] [address], [place] [address] May, [facility] [address] [id number] [address] [place] [address], [place] [address] 16 May, 2014 [facility] [address] [id number] [address] [place] [address], [place] [address] May, [facility] [address] [id number] [address] [place] [address], [place] [address] May, [facility] [address] [id number] [address] [place] [address], [place] [address] 26 Apr, 2013 [facility] [address] [id number] [address] [place] [address], [place] [address] 26 Apr, 2013 [facility] [address] [id number] [address] [place] [address], [place] [address] 25 Apr, 2013 [facility] [address] [id number] [address] [place] [address], [place] [address] 25 Apr, 2013 [facility] [address] [id number] [address] [place] [address], [place] [address] 18 Apr, 2013 [facility] [address] [id number] [address] [place] [address], [place] [address] 18 Apr, 2013 [facility] [address] [id number] [address] [place] [address], [place] [address] 18 Sep, 2013 [facility] [address] [id number] [address] [place] [address], [place] [address] 18 Apr, 2013 [facility] [address] [id number] [address] [place] [address], [place] [address] 04 Apr, 2013 [facility] [address] [id number] [address] [place] [address], [place] [address] Apr, [facility] [address] [id number] [facility] [place] [address] Mar, [facility] [address] [id number] [address] [place] [address], [place] [address] Mar, [facility] [address] [id number] [address] [place] [address], [place] [address] Mar, [facility] [address] [id number] [address] [place] [address], [place] [address] Mar, [facility] [address] [id number] [address] [place] [address], [place] [address] Mar, [facility] [address] [id number] [address] [place] [address], [place] [address] Mar, [facility] [address] [id number] [address] [place] [address], [place] [address] Feb, [facility] [address] [id number] [address] [place] [address], [place] [address] Feb, [facility] [address] [id number] [address] [place] [address], [place] [address] Jan, [facility] [address] [id number] [address] [place] [address], [place] [address] Jan, [facility] [address] [id number] [address] [place] [address], [place] [address] Jan, [facility] [address] [id number] [address] [place] [address], [place] [address] Jan, [facility] [address] [id number] [address] [place] [address], [place] [address] December, [facility] [address] [id number] [address] [place] [address], [place] [address] December, [facility] [address] [id number] [address] [place] [address], [place] [address] December, [facility] [address] [id number] [address] [place] [address], [place] [address] December, [facility] [address] [id number] [address] [place] [address], [place] [address] December, [facility] [address] [id number] [address] [place] [address], [place] [address] December, [facility] [address] [id number] [address] [place] [address], [place] [address] December, [facility] [address] [id number] [address] [place] [address], [place] [address] December, [facility] [address] [id number] [address] [place] [address], [place] [address] December, [facility] [address] [id number] [address] [place] [address], [place] [address] Nov, [facility] [address] [id number] [address] [place] [address], [place] [address] Nov, [facility] [address] [id number] [address] [place] [address], [place] [address] Nov, [facility] [address] [id number] [address] [place] [address], [place] [address] Nov, [facility] [address] [id number] [address] [place] [address], [place] [address] Nov, [facility] [address] [id number] [address] [place] [address], [place] [address] Nov, [facility] [address] [id number] [address] [place] [address], [place] [address] Nov, [facility] [address] [id number] [address] [place] [address], [place] [address] Nov, [facility] [address] [id number] [address] [place] [address], [place] [address] Nov, [facility] [address] [id number] [address] [place] [address], [place] [address] Nov, [facility] [address] [id number] [address] [place] [address], [place] [address] Oct, [facility] [address] [id number] [address] [place] [address], [place] [address] Oct, [facility] [address] [id number] [address] [place] [address], [place] [address] Sep, [facility] [address] [id number] [address] [place] [address], [place] [address] Sep, [facility] [address] [id number] [address] [place] [address], [place] [address] Aug, [facility] [address] [id number] [address] [place] [address], [place] [address] Aug, [facility] [address] [id number] [address] [place] [address], [place] [address] Aug, [facility] [address] [id number] [address] [place] [address], [place] [address] Aug, [facility] [address] [id number] [address] [place] [address], [place] [address] Jul, [facility] [address] [id number] [address] [place] [address], [place] [address] Jul, [facility] [address] [id number] [address] [place] [address], [place] [address] Jul, [facility] [address] [id number] [address] [place] [address], [place] [address] Jul, [facility] [address] [id number] [address] [place] [address], [place] [address] Jun, [facility] [address] [id number] [address] [place] [address], [place] [address] Jun, [facility] [address] [id number] [address] [place] [address], [place] [address] May, [facility] [address] [id number] [address] [place] [address], [place] [address] May, [facility] [address] [id number] [address] [place] [address], [place] [address] May, [facility] [address] [id number] [address] [place] [address], [place] [address] May, [facility] [address] [id number] [address] [place] [address], [place] [address] May, [facility] [address] [id number] [address] [place] [address], [place] [address] May, [facility] [address] [id number] [address] [place] [address], [place] [address] 30 Apr, 2013 [facility] [address] [id number] [address] [place] [address], [place] [address] Apr, [facility] [address] [id number] [address] [place] [address], [place] [address] Apr, [facility] [address] [id number] [address] [place] [address], [place] [address] Feb, [facility] [address] [id number] [address] [place] [address], [place] [address] Jan, [facility] [address] [id number] [address] [place] [address], [place] [address] Jan, [facility] [address] [id number] [address] [place] [address], [place] [address] Jan, [facility] [address] [id number] [address] [place] [address], [place] [address] Jan, [facility] [address] [id number] [address] [place] [address], [place] [address] December, [facility] [address] [id number] [address] [place] [address], [place] [address] December, [facility] [address] [address] [id number] [address] [place] [address], [place] [id number] Nov, [facility] [address] [id number] [facility] [place] [address] 23 Nov, 2012 [facility] [address] [id number] [address] [place] [address], [place] [id number] Nov, [facility] [address] [id number] [address] [place] [address], [place] [address] Nov, [facility] [address] [id number] [address] [place] [address], [place] [id number] Nov, [facility] [address] [id number] [address] [place] [address], [place] [id number] 08 Nov, 2012 [facility] [address] [id number] [address] [place] [address], [place] [address] Nov, [facility] [address] [id number] [address] [place] [address], [place] [id number] 27 Oct, 2012 [facility] [address] [id number] [address] [place] [address], [place] [id number] 18 Oct, 2012 [facility] [address] [id number] [address] [place] [address], [place] [id number] 14 Oct, 2012 [facility] [address] [id number] [address] [place] [address], [place] [id number] 13 Oct, 2012 [facility] [address] [id number] [address] [place] [address], [place] [id number] 12 Oct, 2012 [facility] [address] [id number] [address] [place] [address], [place] [id number] 11 Oct, 2012 [facility] [address] [id number] [address] [place] [address], [place] [id number] 08 Oct, 2012 [facility] [address] [id number] [address] [place] [address], [place] [id number] 20 Sep, 2012 [facility] [address] [id number] [address] [place] [address], [place] [id number] Sep, [facility] [address] [id number] [address] [place] [address], [place] [id number] Aug, [facility] [address] [id number] [address] [place] [id number] Aug, [facility] [address] [id number] [address] [place] [id number] Jul, [facility] [address] [id number] [address] [place] [id number] Jul, [facility] [address] [id number] [address] [place] [id number] Jul, [facility] [address] [id number] [address] [place] [id number] Jul, [facility] [address] [id number] [address] [place] [id number] Jul, [facility] [address] [id number] [address] [place] [id number] Jul, [facility] [address] [id number] [address] [place] [id number] Jul, [facility] [address] [id number] [address] [place] [id number] Jul, [facility] [address] [id number] [address] [place] [id number] Jun, [facility] [address] [id number] [address] [place] [id number] Jun, IMMUNIZATIONS Vaccine Route Administration Date Status DEXAMETHASONE 4MG/ML (PER 1 MG) IM Intramuscular February 05, 2018 Administered SOCIAL HISTORY Never Assessed REASON FOR VISIT Pain management (chronic), -Juan F PRITCHETT PLAN OF CARE VITAL SIGNS Height 62 in 2018-02-05 Weight 255.4 lbs 2018-02-05 Temperature 97.8 degrees Fahrenheit 2018-02-05 Heart Rate 77 bpm 2018-02-05 Respiratory Rate 20 2018-02-05 Oximetry on room air:97 % 2018-02-05 BMI 46.71 kg/m2 2018-02-05 Blood pressure systolic 124 mmHg 2018-02-05 Blood pressure diastolic 76 mmHg 2018-02-05 MEDICATIONS Medication Instructions Dosage Frequency Start Date End Date Duration S tatus Albuterol Sulfate 90 mcg/actuation 2 puf fs by Inhalation route every 4-6 hours as needed PRN cough or wheezing Active [id number] Ethyl Esters 1 GM Orally Once a day 1 capsule 24h Active Omeprazole 20 MG TAKE ONE CAPSULE BY MOUTH ONCE DAILY BEFORE A M EAL 30 Active Indomethacin 50 mg Orally 3 times a day 1 capsule with food or milk 8h Not-Taking Hydrocodone-Acetaminophen 5-325 MG Orally 3 times a day prn must last 4 weeks 1 Tablet Jan, Active Triamcinolone Acetonide 0.1 % Externally Twice a day 1 appli cation to affected area 12h Feb, Active Hydrochlorothiazide 25 MG Orally Once a day 1 tablet 24h Active RESULTS No Results PROCEDURES Procedure Date Ordered Result Body Site DEXAMETHASONE 4MG/ML (PER 1 MG) February 05, 2018 THER/PROPH/DIAG INJ, SC/IM February 05, 2018 INSTRUCTIONS MEDICATIONS ADMINISTERED No Known Medications MEDICAL [...]
--- OUTSIDE RECORDS SUMMARY | 2020-02-11 03:23 | XMS REPORT ---
Author Author Madeline MANCUSO Organization [facility] Address [address] [place] [address] Care Team Providers Care Adjunct Lecturer Name Role Phone JASON MANCUSO Unavailable PROBLEMS Type Condition ICD9-CM Code OHB98-OD Code Onset Dates Condition S tatus SNOMED Code Problem Chronic pain G89.29 Active 6539335 1 Problem Pre-diabetes R73.09 Active 2913578 02 Problem Essential hypertension I10 Active 28044381 Problem BMI 45.0-49.9, adult Z68.42 Active 415420428 Problem Numbness and tingling in hands R20.2 Active 692603395 Problem GERD (gastroesophageal reflux disease) K21.9 Active 297552403 Problem Stasis dermatitis of both legs I87.2 Active 91725805 Problem History of abnormal cervical Pap smear Z87.898 Active 798284336 ALLERGIES Substance Reaction Event Type Date Status PredniSONE hives Drug Allergy Mar, Active Meloxicam hives Drug Allergy Mar, Active Levaquin itching Drug Allergy Mar, Active Diflucan itching Drug Allergy Mar, Active ENCOUNTERS Encounter Location Date Diagnosis [place] [address] [facility] [id number] [address] [place] [address] May, [facility] [address] [facility] [id number] [address] [place] [address] Apr, Chronic pain G89.29 [facility] [address] [facility] [id number] [address] [place] [address] Mar, Poison josep L23.7 [facility] [address] [facility] [id number] [address] [place] [address] Mar, Chronic pain G89.29 [place] [address] [facility] [id number] [address] [place] [address] Feb, Chronic pain G89.29 [facility] [address] [facility] [id number] [address] [place] [address] Feb, Poison josep L23.7 [facility] [address] [facility] [id number] [address] [place] [address] Jan, Chronic pain G89.29 [facility] [address] [facility] [id number] [address] [place] [address] December, Chronic pain G89.29 [facility] [address] [facility] [id number] [address] [place] [address] Nov, Long-term use of high-risk m edication Z79.899 [place] [address] [facility] [id number] [address] [place] [address] Nov, Chronic pain G89.29 [place] [address] [facility] [id number] [address] [place] [address] Oct, Chronic pain G89.29 ; Pre-di abetes R73.09 ; Long-term use of high- risk medication Z79.899 ; Allergic rhinitis, unspecified seasonality, unspecified trigger J30.9 ; BMI 45.0-49.9, adult Z68.42 and Essential hypertension I10 [facility] [address] [facility] [id number] [address] [place] [address] Oct, Chronic pain G89.29 [facility] [address] [facility] [id number] [address] [place] [address] Sep, Chronic pain G89.29 [place] [address] [facility] [id number] [address] [place] [address] Aug, Chronic pain G89.29 [place] [address] [facility] [id number] [address] [place] [address] Jul, [place] [address] [facility] [id number] [address] [place] [address] Jul, [facility] [address] [address] Jun, Chronic pain G89.29 ; BMI 45 .0-49.9, adult Z68.42 ; Pre-diabetes R73.09 ; Essential hypertension I10 ; GERD (gastroesophageal reflux disease) K21.9 ; Yeast dermatitis B37.2 ; Dysuria R30.0 ; Acute non-recurrent maxillary sinusitis J01.00 and Acute cystitis with hematuria N30.01 [place] [address] [address] Jun, Chronic pain G89.29 [place] [address] [address] Jun, Acute non-recurrent maxillar y sinusitis J01.00 and BMI 45.0-49.9, adult Z68.42 [place] [address] [address] May, [place] [address] [address] May, Chronic pain G89.29 [place] [address] [address] May, [place] [address] [address] Apr, Chronic pain G89.29 [place] [address] [address] Mar, [place] [address] [address] Mar, Essential hypertension I10 a nd Pre-diabetes R73.09 [place] [address] [address] Mar, Chronic pain G89.29 ; Essent ial hypertension I10 ; Depressive disorder, not elsewhere classified F32.9 ; GERD (gastroesophageal reflux disease) K21.9 ; Pre-diabetes R73.09 ; Stasis dermatitis of both legs I87.2 and Acute non-recurrent maxillary sinusitis J01.00 [place] [address] [facility] [id number] [address] [place] [address] Mar, Chronic pain G89.29 [place] [address] [facility] [id number] [address] [place] [address] 07 Mar, 2017 Achilles tendinitis of right lower extremity M76.61 and Tinea corporis B35.4 [place] [address] [facility] [id number] [address] [place] [address] 17 Feb, 2017 Yeast dermatitis B37.2 [place] [address] [facility] [id number] [address] [place] [address] Feb, Candidal intertrigo B37.2 an d Acute right ankle pain M25.571 [place] [address] [place] [id number] [address] [place] [address] Feb, Chronic pain G89.29 [place] [address] [place] [id number] [address] [place] [address] Jan, [place] [address] [place] [id number] [address] [place] [address] Jan, Chronic pain G89.29 [place] [address] [place] [id number] [address] [place] [address] December, Chronic pain G89.29 ; Essent ial hypertension I10 ; Depressive disorder, not elsewhere classified F32.9 ; GERD (gastroesophageal reflux disease) K21.9 ; Pre-diabetes R73.09 ; Screening breast examination Z12.39 ; Stasis dermatitis of both legs I87.2 and Yeast dermatitis B37.2 [place] [address] [facility] [id number] [address] [place] [address] Nov, Chronic pain G89.29 [place] [address] [place] [id number] [address] [place] [address] Nov, Cellulitis of left lower ext remity L03.116 [place] [address] [address] Nov, Cellulitis of left lower ext remity L03.116 [place] [address] [address] Oct, Yeast dermatitis B37.2 [place] [address] [address] Oct, Chronic pain G89.29 [place] [address] [address] Sep, Chronic pain G89.29 ; Essent ial hypertension I10 ; Depressive disorder, not elsewhere classified F32.9 and GERD (gastroesophageal reflux disease) K21.9 [place] [address] [address] Aug, Chronic pain G89.[address] [address] Aug, Cough R05 ; Rash R21 and Vinay h and nonspecific skin eruption R21 [address] [address] Jul, Chronic pain G89.29 [place] [address] [address] Jun, Chronic pain G89.29 ; Bronch itis J40 ; Essential hypertension I10 ; Depressive disorder, not elsewhere classified F32.9 ; GERD (gastroesophageal reflux disease) K21.9 and History of long-term use of multiple prescription drugs Z92.29 [place] [address] [address] Jun, Bronchitis J40 ; Chills R68. 83 and Sore throat J02.9 [place] [address] [address] May, [address] [address] Apr, [facility] [address] [facility] [id number] [address] [place] [address] Apr, Acute mucoid otitis media of both ears H65.113 [place] [address] [address] Apr, Yeast dermatitis B37.2 and H ematuria R31.9 [place] [address] [place] [id number] [place] [address] Mar, [place] [address] [address] Mar, [place] [address] [address] Feb, Left anterior knee pain M25. 562 [place] [address] [address] Feb, Chronic pain G89.29 ; Essent ial hypertension I10 ; Depressive disorder, not elsewhere classified F32.9 ; GERD (gastroesophageal reflux disease) K21.9 and History of long-term use of multiple prescription drugs Z92.29 [place] [address] [address] Jan, [place] [address] [address] Jan, Well woman exam Z01.419 ; BM I 45.0-49.9, adult Z68.42 ; Family history of diabetes mellitus Z83.3 and Chronic pain G89.29 [place] [address] [address] December, Chronic pain G89.29 ; Essent ial hypertension I10 ; Depressive disorder, not elsewhere classified F32.9 ; GERD (gastroesophageal reflux disease) K21.9 ; 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 ; History of long-term use of multiple prescription drugs Z92.29 and Obesity E66.9 [place] [address] [address] Oct, [facility] [address] [place] [id number] [address] [place] [address] Oct, Well woman exam Z01.419 ; BM [...] and No natural teeth K00.0 [place] [address] [address] Oct, [place] [address] [address] Sep, Chronic pain G89.29 ; Essent ial hypertension I10 ; GERD (gastroesophageal reflux disease) K21.9 ; 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 ; Skin infection L08.9 and History of long-term use of multiple prescription drugs Z92.29 [place] [address] [address] Aug, [place] [address] [place] [id number] [address] [place] [address] Jul, [place] [address] [address] Jul, [place] [address] [place] [id number] [address] [place] [address] Jul, Upper respiratory infection J06.9 [place] [address] [place] [id number] [address] [place] [address] Jul, Depressive disorder, not els ewhere classified F32.9 [place] [address] [place] [id number] [address] [place] [address] Jul, Chronic pain 338.29 [place] [address] [place] [id number] [address] [place] [address] Jul, Chronic pain G89.29 [place] [address] [address] Jun, Poison josep L23.7 [place] [address] [place] [id number] [place] [address] Jun, Allergic contact dermatitis due to plants, except food L23.7 [place] [address] [address] 03 Jun, 2015 Essential hypertension I10 ; Chronic pain G89.29 ; GERD (gastroesophageal reflux disease) K21.9 and Numbness and tingling in hands R20.2 [place] [address] [address] May, [place] [address] [address] Apr, [place] [address] [address] Mar, [place] [address] [address] Feb, Abdominal pain, left lateral 789.09 and Constipation 564.[address] [address] Feb, Depressive disorder, not els ewhere classified 311 and No condition on [place] V71.09 [place] [address] [address] Feb, Spider bite 989.5 and Depres homar 311 [place] [address] [address] Feb, [place] [address] [address] Feb, Chronic pain 338.29 ; Arthro zonia 716.90 and GERD (gastroesophageal reflux disease) 530.81 [facility] [address] [id number] [address] [place] [address] 15 Jan, [address] [facility] [address] [id number] [address] [place] [address] 08 Jan, 2015 [facility] [address] [id number] [address] [place] [address] December, Skin infection, bacterial 68 6.9 ; Conjunctivitis 372.30 and Insect bites 919.4 [facility] [address] [id number] [address] [place] [address] December, Chronic pain 338.29 ; Arthro zonia 716.90 ; Skin infection, bacterial 686.[address] [facility] [address] [facility] [id number] [address] [place] [address] December, [facility] [address] [id number] [address] [place] [address] Nov, [facility] [address] [id number] [address] [place] [address] Nov, [facility] [address] [id number] [address] [place] [address] Oct, [facility] [address] [id number] [address] [place] [address] Oct, [facility] [address] [id number] [address] [place] [address] Sep, [facility] [address] [id number] [address] [place] [address] Sep, [facility] [address] [id number] [address] [place] [address] Aug, [facility] [address] [id number] [address] [place] [address] Aug, [facility] [address] [id number] [address] [place] [address], [place] [address] 05 Aug, 2014 [facility] [address] [id number] [address] [place] [address], [place] [address] 05 Aug, 2014 [facility] [address] [id number] [address] [place] [address], [place] [address] 30 Jul, 2014 [facility] [address] [id number] [address] [place] [address], [place] [address] 29 Jul, 2014 [facility] [address] [id number] [address] [place] [address], [place] [address] 29 Jul, 2014 [facility] [address] [id number] [address] [place] [address], [place] [address] Jul, [facility] [address] [id number] [address] [place] [address], [place] [address] Jul, [facility] [address] [id number] [address] [place] [address], [place] [address] Jul, [facility] [address] [id number] [address] [place] [address], [place] [address] Jul, [facility] [address] [id number] [address] [place] [address], [place] [address] Jul, [facility] [address] [id number] [address] [place] [address], [place] [address] Jul, [facility] [address] [id number] [address] [place] [address], [place] [address] Jun, [facility] [address] [id number] [address] [place] [address], [place] [address] Jun, [facility] [address] [id number] [address] [place] [address], [place] [address] Jun, [facility] [address] [id number] [address] [place] [address], [place] [address] Jun, [facility] [address] [id number] [address] [place] [address], [place] [address] Jun, [facility] [address] [id number] [address] [place] [address], [place] [address] Jun, [facility] [address] [id number] [address] [place] [address], [place] [address] Jun, [facility] [address] [id number] [address] [place] [address], [place] [address] Jun, [facility] [address] [id number] [address] [place] [address], [place] [address] May, [facility] [address] [id number] [address] [place] [address], [place] [address] May, [facility] [address] [id number] [address] [place] [address], [place] [address] May, [facility] [address] [id number] [address] [place] [address], [place] [address] May, [facility] [address] [id number] [address] [place] [address], [place] [address] May, [facility] [address] [id number] [address] [place] [address], [place] [address] Apr, [facility] [address] [id number] [address] [place] [address], [place] [address] 26 Apr, 2014 [facility] [address] [id number] [address] [place] [address], [place] [address] 25 Apr, 2014 [facility] [address] [id number] [address] [place] [address], [place] [address] 25 Apr, 2013 [facility] [address] [id number] [address] [place] [address], [place] [address] 18 Apr, 2014 [facility] [address] [id number] [address] [place] [address], [place] [address] 18 Apr, 2014 [facility] [address] [id number] [address] [place] [address], [place] [address] 18 Apr, 2014 [facility] [address] [id number] [address] [place] [address], [place] [address] Apr, [facility] [address] [id number] [facility] [place] [address] Apr, [facility] [address] [id number] [address] [place] [address], [place] [address] Apr, [facility] [address] [id number] [address] [place] [address], [place] [address] Mar, [facility] [address] [id number] [address] [place] [address], [place] [address] Mar, [facility] [address] [id number] [address] [place] [address], [place] [address] Mar, [facility] [address] [id number] [address] [place] [address], [place] [address] Mar, [facility] [address] [id number] [address] [place] [address], [place] [address] Mar, [facility] [address] [id number] [address] [place] [address], [place] [address] Mar, [facility] [address] [id number] [address] [place] [address], [place] [address] Feb, [facility] [address] [id number] [address] [place] [address], [place] [address] Feb, [facility] [address] [id number] [address] [place] [address], [place] [address] Jan, [facility] [address] [id number] [address] [place] [address], [place] [address] Jan, [facility] [address] [id number] [address] [place] [address], [place] [address] Jan, [facility] [address] [id number] [address] [place] [address], [place] [address] Jan, [facility] [address] [id number] [address] [place] [address], [place] [address] December, [facility] [address] [id number] [address] [place] [address], [place] [address] December, [facility] [address] [id number] [address] [place] [address], [place] [address] December, [facility] [address] [id number] [address] [place] [address], [place] [address] December, [facility] [address] [id number] [address] [place] [address], [place] [address] December, [facility] [address] [id number] [address] [place] [address], [place] [address] December, [facility] [address] [id number] [address] [place] [address], [place] [address] December, [facility] [address] [id number] [address] [place] [address], [place] [address] December, [facility] [address] [id number] [address] [place] [address], [place] [address] December, [facility] [address] [id number] [address] [place] [address], [place] [address] Nov, [facility] [address] [id number] [address] [place] [address], [place] [address] Nov, [facility] [address] [id number] [address] [place] [address], [place] [address] Nov, [facility] [address] [id number] [address] [place] [address], [place] [address] Nov, [facility] [address] [id number] [address] [place] [address], [place] [address] Nov, [facility] [address] [id number] [address] [place] [address], [place] [address] Nov, [facility] [address] [id number] [address] [place] [address], [place] [address] Nov, [facility] [address] [id number] [address] [place] [address], [place] [address] Nov, [facility] [address] [id number] [address] [place] [address], [place] [address] Nov, [facility] [address] [id number] [address] [place] [address], [place] [address] Nov, [facility] [address] [id number] [address] [place] [address], [place] [address] Oct, [facility] [address] [id number] [address] [place] [address], [place] [address] Oct, [facility] [address] [id number] [address] [place] [address], [place] [address] Sep, [facility] [address] [id number] [address] [place] [address], [place] [address] Sep, [facility] [address] [id number] [address] [place] [address], [place] [address] Aug, [facility] [address] [id number] [address] [place] [address], [place] [address] Aug, [facility] [address] [id number] [address] [place] [address], [place] [address] Aug, [facility] [address] [id number] [address] [place] [address], [place] [address] Aug, [facility] [address] [id number] [address] [place] [address], [place] [address] Jul, [facility] [address] [id number] [address] [place] [address], [place] [address] Jul, [facility] [address] [id number] [address] [place] [address], [place] [address] Jul, [facility] [address] [id number] [address] [place] [address], [place] [address] Jul, [facility] [address] [id number] [address] [place] [address], [place] [address] Jun, [facility] [address] [id number] [address] [place] [address], [place] [address] Jun, [facility] [address] [id number] [address] [place] [address], [place] [address] May, [facility] [address] [id number] [address] [place] [address], [place] [address] May, [facility] [address] [id number] [address] [place] [address], [place] [address] May, [facility] [address] [id number] [address] [place] [address], [place] [address] May, [facility] [address] [id number] [address] [place] [address], [place] [address] May, [facility] [address] [id number] [address] [place] [address], [place] [address] May, [facility] [address] [id number] [address] [place] [address], [place] [address] 30 Apr, 2013 [facility] [address] [id number] [address] [place] [address], [place] [address] 23 Apr, 2013 [facility] [address] [id number] [address] [place] [address], [place] [address] 03 Apr, 2013 [facility] [address] [id number] [address] [place] [address], [place] [address] Feb, [facility] [address] [id number] [address] [place] [address], [place] [address] Jan, [facility] [address] [id number] [address] [place] [address], [place] [address] Jan, [facility] [address] [id number] [address] [place] [address], [place] [address] Jan, [facility] [address] [id number] [address] [place] [address], [place] [address] 14 Jan, 2013 [facility] [address] [id number] [address] [place] [address], [place] [address] December, [facility] [address] [id number] [facility] [address] December, [facility] [address] [id number] [address] [place] [address], [place] [address] 24 Nov, 2012 [facility] [address] [id number] [address] [place] [address], [place] [address] Nov, [facility] [address] [id number] [address] [place] [address], [place] [address] Nov, [facility] [address] [id number] [address] [place] [address], [place] [address] Nov, [facility] [address] [id number] [address] [place] [address], [place] [address] Nov, [facility] [address] [id number] [place] [address], [place] [address] Nov, [facility] [address] [id number] [address] [place] [address], [place] [address] Nov, [facility] [address] [id number] [address] [place] [address], [place] [address] 27 Oct, 2012 [facility] [address] [id number] [address] [place] [address], [place] [address] 18 Oct, 2012 [facility] [address] [id number] [address] [place] [address], [place] [address] 14 Oct, 2012 [facility] [address] [id number] [address] [place] [address], [place] [address] 13 Oct, 2012 [facility] [address] [id number] [address] [place] [address], [place] [address] 12 Oct, 2012 [facility] [address] [id number] [address] [place] [address], [place] [address] 11 Oct, 2012 [facility] [address] [id number] [address] [place] [address], [place] [address] 08 Oct, 2012 [facility] [address] [id number] [address] [place] [address], [place] [address] Sep, [facility] [address] [id number] [address] [place] [phone] Sep, [facility] [address] [id number] [address] [place] [phone] Aug, [facility] [address] [id number] [address] [place] [phone] Aug, [facility] [address] [id number] [address] [place] [phone] Jul, [facility] [address] [id number] [address] [place] [phone] Jul, [facility] [address] [id number] [address] [place] [id number] Jul, [facility] [address] [id number] [address] [place] [phone] Jul, [facility] [address] [id number] [address] [place] [phone] Jul, [facility] [address] [id number] [address] [place] [phone] Jul, [facility] [address] [id number] [address] [place] [phone] Jul, [facility] [address] [id number] [address] [place] [phone] Jul, [facility] [address] [id number] [address] [place] [phone] Jun, [facility] [address] [id number] [address] [place] [phone] Jun, IMMUNIZATIONS Vaccine Route Administration Date Status DEPO MEDROL 80 MG/ML IM Intramuscular Apr 02, 2018 Administer ed SOCIAL HISTORY Never Assessed REASON FOR VISIT Rash, PT reports she has a rash that started a couple of days ago on her arms bu t has spread to her hands and legs. PT notes it does itch, and mentions she has been at her dads the last week doing burn piles. -rivera [place] PLAN OF CARE VITAL SIGNS Height 62 in 2018-04-02 Weight 251.4 lbs 2018-04-02 Temperature 97.9 degrees Fahrenheit 2018-04-02 Heart Rate 69 bpm 2018-04-02 Respiratory Rate 20 2018-04-02 Oximetry 96 % 2018-04-02 BMI 45.98 kg/m2 2018-04-02 Blood pressure systolic 143 mmHg 2018-04-02 Blood pressure diastolic 89 mmHg 2018-04-02 MEDICATIONS Medication Instructions Dosage Frequency Start Date End Date Duration S tatus Triamcinolone Acetonide 0.1 % Externally Twice a day 1 appli cation to affected area 12h Mar, Active Albuterol Sulfate 90 mcg/actuation 2 puf fs by Inhalation route every 4-6 hours as needed PRN cough or wheezing Active Omeprazole 20 MG TAKE ONE CAPSULE BY MOUTH ONCE DAILY BEFORE A M EAL 30 Active Indomethacin 50 mg Orally 3 times a day 1 capsule with food or milk 8h Not-Taking Triamcinolone Acetonide 0.1 % Externally Twice a day 1 appli cation to affected area 12h Feb, Active Hydrochlorothiazide 25 MG Orally Once a day 1 tablet 24h Active Hydrocodone-Acetaminophen 5-325 MG Orally 3 times a day prn must last 4 weeks 1 Tablet Mar, 28 days Active [id number] Ethyl Esters 1 GM Orally Once a day 1 capsule 24h Not-Taking RESULTS No Results PROCEDURES Procedure Date Ordered Result Body Site DEPO MEDROL 80 MG/ML Apr 02, 2018 THER/PROPH/DIAG INJ, SC/IM Apr 02, 2018 INSTRUCTIONS MEDICATIONS ADMINISTERED No Known Medications [...]
[2020-02-11 03:24] LABS: BASOPHILS % (AUTO) 0 % (0-10); EOSINOPHILS # (AUTO) 0.6 10^3/uL (0.0-0.3); EOSINOPHILS % (AUTO) 5 % (0-10); HEMATOCRIT 44 % (35-52); LYMPHOCYTES # (AUTO) 4.2 X 10^3 (1.0-4.0); LYMPHOCYTES % (AUTO) 40 % (12-44); MEAN CORPUSCULAR HEMOGLOBIN 29 PG (25-34); MEAN CORPUSCULAR HGB CONC 34 G/DL (32-36); MEAN CORPUSCULAR VOLUME 85 FL (80-99); MEAN PLATELET VOLUME 11.9 FL (7.4-10.4); MONOCYTES % (AUTO) 9 % (0-12); NEUTROPHILS # (AUTO) 4.9 X 10^3 (1.8-7.8); NEUTROPHILS % (AUTO) 45 % (42-75); PLATELET COUNT 263 10^3/uL (130-400); WHITE BLOOD COUNT 10.7 10^3/uL (4.3-11.0)
--- OUTSIDE RECORDS SUMMARY | 2020-02-11 03:24 | XMS REPORT ---
Author Author АНДРЕЙ Madelineshawn LEONG Organization [facility] Address [address] [place] [address] Care Team Providers Care Production Control Specialist Name Role Phone KWESIKennedy DANG Unavailable PROBLEMS Type Condition ICD9-CM Code JLZ39-MR Code Onset Dates Condition S tatus SNOMED Code Problem Chronic pain G89.29 Active 8946516 1 Problem Pre-diabetes R73.09 Active 4454761 02 Problem Essential hypertension I10 Active 16935175 Problem BMI 45.0-49.9, adult Z68.42 Active 028468553 Problem Numbness and tingling in hands R20.2 Active 114474286 Problem GERD (gastroesophageal reflux disease) K21.9 Active 403027468 Problem Stasis dermatitis of both legs I87.2 Active 18522741 Problem History of abnormal cervical Pap smear Z87.898 Active 024894396 ALLERGIES No Information ENCOUNTERS Encounter Location Date Diagnosis [place] [id number] [facility] [id number] [address] [place] [address] Mar, Chronic pain G89.29 [place] [id number] [address] [place] [address] Feb, Chronic pain G89.29 [facility] [address] [facility] [id number] [address] [place] [address] Feb, Poison josep L23.7 [facility] [address] [facility] [id number] [address] [place] [address] Jan, Chronic pain G89.29 [facility] [address] [facility] [id number] [address] [place] [address] December, Chronic pain G89.29 [facility] [address] [facility] [id number] [address] [place] [address] Nov, Long-term use of high-risk m edication Z79.899 [facility] [address] [facility] [id number] [place] [address] Nov, Chronic pain G89.29 [place] [address] [address] [place] [id number] [address] [place] [address] Oct, Chronic pain G89.29 ; Pre-di abetes R73.09 ; Long-term use of high- risk medication Z79.899 ; Allergic rhinitis, unspecified seasonality, unspecified trigger J30.9 ; BMI 45.0-49.9, adult Z68.42 and Essential hypertension I10 [place] [address] [address] Oct, Chronic pain G89.29 [place] [address] [address] Sep, Chronic pain G89.29 [place] [address] [address] Aug, Chronic pain G89.29 [place] [address] [address] Jul, [place] [address] [address] Jul, [place] [address] [address] Jun, Chronic pain G89.29 ; BMI 45 .0-49.9, adult Z68.42 ; Pre-diabetes R73.09 ; Essential hypertension I10 ; GERD (gastroesophageal reflux disease) K21.9 ; Yeast dermatitis B37.2 ; Dysuria R30.0 ; Acute non-recurrent maxillary sinusitis J01.00 and Acute cystitis with hematuria N30.01 [place] [address] [address] 13 Jun, 2017 Chronic pain G89.29 [place] [address] [address] Jun, Acute non-recurrent maxillar y sinusitis J01.00 and BMI 45.0-49.9, adult Z68.42 [place] [address] [address] May, [place] [address] [address] May, Chronic pain G89.29 [place] [address] [address] May, [place] [address] [address] Apr, Chronic pain G89.29 [place] [address] [address] Mar, [place] [address] [address] Mar, Essential hypertension I10 a nd Pre-diabetes R73.09 [place] [address] [address] Mar, Chronic pain G89.29 ; Essent ial hypertension I10 ; Depressive disorder, not elsewhere classified F32.9 ; GERD (gastroesophageal reflux disease) K21.9 ; Pre-diabetes R73.09 ; Stasis dermatitis of both legs I87.2 and Acute non-recurrent maxillary sinusitis J01.00 [place] [address] [address] Mar, Chronic pain G89.29 [place] [address] [address] Mar, Achilles tendinitis of right lower extremity M76.61 and Tinea corporis B35.4 [place] [address] [address] Feb, Yeast dermatitis B37.2 [place] [address] [place] [id number] [address] [place] [address] 14 Feb, 2017 Candidal intertrigo B37.2 an d Acute right ankle pain M25.571 [place] [address] [address] [place] [id number] [address] [place] [id number] 12 Feb, 2017 Chronic pain G89.29 [place] [address] [place] [id number] [address] [place] [address] Jan, [place] [address] [place] [id number] [place] [address] Jan, Chronic pain G89.29 [place] [address] [address] December, Chronic pain G89.29 ; Essent ial hypertension I10 ; Depressive disorder, not elsewhere classified F32.9 ; GERD (gastroesophageal reflux disease) K21.9 ; Pre-diabetes R73.09 ; Screening breast examination Z12.39 ; Stasis dermatitis of both legs I87.2 and Yeast dermatitis B37.2 [place] [id number] [place] [address] Nov, Chronic pain G89.29 [place] [address] [place] [id number] [address] [place] [address] Nov, Cellulitis of left lower ext remity L03.116 [place] [address] [address] [place] [id number] [address] [place] [address] Nov, Cellulitis of left lower ext remity L03.116 [place] [address] [address] [place] [id number] [address] [place] [address] Oct, Yeast dermatitis B37.2 [place] [address] [address] [place] [id number] [address] [place] [address] Oct, Chronic pain G89.29 [place] [address] [place] [id number] [address] [place] [address] Sep, Chronic pain G89.29 ; Essent ial hypertension I10 ; Depressive disorder, not elsewhere classified F32.9 and GERD (gastroesophageal reflux disease) K21.9 [facility] [address] [address] Aug, Chronic pain G89.29 [facility] [address] [address] Aug, Cough R05 ; Rash R21 and Vinay h and nonspecific skin eruption R21 [place] [address] [address] Jul, Chronic pain G89.29 [place] [address] [address] Jun, Chronic pain G89.29 ; Bronch itis J40 ; Essential hypertension I10 ; Depressive disorder, not elsewhere classified F32.9 ; GERD (gastroesophageal reflux disease) K21.9 and History of long-term use of multiple prescription drugs Z92.29 [place] [address] [address] Jun, Bronchitis J40 ; Chills R68. 83 and Sore throat J02.9 [place] [address] [address] May, [facility] [address] [address] Apr, [facility] [address] [address] Apr, Acute mucoid otitis media of both ears H65.113 [place] [address] [address] 07 Apr, 2016 Yeast dermatitis B37.2 [address] R31.9 [facility] [address] [address] Mar, [place] [address] [address] Mar, [place] [address] [address] [place] [id number] [address] [place] [address] Feb, Left anterior knee pain M25. 562 [place] [address] [address] Feb, Chronic pain G89.29 ; Essent ial hypertension I10 ; Depressive disorder, not elsewhere classified F32.9 ; GERD (gastroesophageal reflux disease) K21.9 and History of long-term use of multiple prescription drugs Z92.29 [place] [address] [address] Jan, [place] [address] [address] Jan, Well woman exam Z01.419 ; BM I 45.0-49.9, adult Z68.42 ; Family history of diabetes mellitus Z83.3 and Chronic pain G89.29 [place] [address] [address] December, Chronic pain G89.29 ; Essent ial hypertension I10 ; Depressive disorder, not elsewhere classified F32.9 ; GERD (gastroesophageal reflux disease) K21.9 ; 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 ; History of long-term use of multiple prescription drugs Z92.29 and Obesity E66.9 [place] [address] [address] Oct, [place] [address] [address] Oct, Well woman exam Z01.419 ; BM [...] smear Z12.4 and No natural teeth K00.0 [facility] [address] [facility] [id number] [address] [place] [address] Oct, [place] [address] [place] [id number] [address] [place] [address] Sep, Chronic pain G89.29 ; Essent ial hypertension I10 ; GERD (gastroesophageal reflux disease) K21.9 ; 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 ; Skin infection L08.9 and History of long-term use of multiple prescription drugs Z92.29 [place] [address] [facility] [id number] [address] [place] [address] Aug, [place] [address] [place] [id number] [place] [address] Jul, [place] [address] [place] [id number] [place] [address] Jul, [place] [address] [address] Jul, Upper respiratory infection J06.9 [place] [address] [place] [id number] [place] [address] Jul, Depressive disorder, not els ewhere classified F32.9 [place] [address] [place] [id number] [address] [place] [address] Jul, Chronic pain 338.29 [place] [address] [address] [place] [id number] [address] [place] [address] Jul, Chronic pain G89.29 [place] [address] [address] [place] [id number] [address] [place] [address] Jun, Poison josep L23.7 [place] [address] [address] [place] [id number] [address] [place] [address] Jun, Allergic contact dermatitis due to plants, except food L23.7 [place] [address] [address] [place] [id number] [address] [place] [address] Jun, Essential hypertension I10 ; Chronic pain G89.29 ; GERD (gastroesophageal reflux disease) K21.9 and Numbness and tingling in hands R20.2 [place] [address] [address] May, [place] [address] [address] Apr, [place] [address] [address] Mar, [place] [address] [address] Feb, Abdominal pain, left lateral 789.09 and Constipation 564.[address] [address] Feb, Depressive disorder, not els ewhere classified 311 and No condition on Dille II V71.[address] [address] Feb, Spider bite 989.5 and Depres homar [address] [address] Feb, [address] [address] Feb, Chronic pain 338.29 ; Arthro zonia 716.90 and GERD (gastroesophageal reflux disease) 530.81 [place] [address] [address] Jan, Insect bites 919.[address] [address] Jan, [place] [address] [address] December, Skin infection, bacterial 68 6.9 ; Conjunctivitis 372.30 and Insect bites 919.[address] [place] [address] December, Chronic pain 338.29 ; Arthro zonia 716.90 ; Skin infection, bacterial 686.9 and Conjunctivitis 372.30 [facility] [address] [id number] [address] [place] [address] December, [facility] [address] [id number] [address] [place] [address] Nov, [facility] [address] [id number] [address] [place] [address] Nov, [facility] [address] [id number] [address] [place] [address] Oct, [facility] [address] [id number] [address] [place] [address] Oct, [facility] [address] [id number] [address] [place] [address] Sep, [facility] [address] [id number] [address] [place] [address] Sep, [facility] [address] [id number] [address] [place] [address] Aug, [facility] [address] [id number] [address] [place] [address] Aug, [facility] [address] [id number] [address] [place] [address] Aug, [facility] [address] [id number] [address] [place] [address] Aug, [facility] [address] [id number] [address] [place] [address] Jul, [facility] [address] [id number] [address] [place] [address] Jul, [facility] [address] [id number] [address] [place] [address] Jul, [facility] [address] [id number] [address] [place] [address], [place] [address] 15 Jul, 2014 [facility] [address] [id number] [address] [place] [address], [place] [address] 15 Jul, 2014 [facility] [address] [id number] [address] [place] [address], [place] [address] 15 Jul, 2014 [facility] [address] [id number] [address] [place] [address], [place] [address] 15 Jul, 2014 [facility] [address] [id number] [address] [place] [address], [place] [address] 12 Jul, 2014 [facility] [address] [id number] [address] [place] [address], [place] [address] Jul, [facility] [address] [id number] [address] [place] [address], [place] [address] 13 Jun, 2014 [facility] [address] [id number] [address] [place] [address], [place] [address] Jun, [facility] [address] [id number] [address] [place] [address], [place] [address] Jun, [facility] [address] [id number] [address] [place] [address], [place] [address] Jun, [facility] [address] [id number] [address] [place] [address], [place] [address] Jun, [facility] [address] [id number] [address] [place] [address], [place] [address] Jun, [facility] [address] [id number] [address] [place] [address], [place] [address] Jun, [facility] [address] [id number] [address] [place] [address], [place] [address] Jun, [facility] [address] [id number] [address] [place] [address], [place] [address] 17 May, 2014 [facility] [address] [id number] [address] [place] [address], [place] [address] 17 May, 2014 [facility] [address] [id number] [address] [place] [address], [place] [address] 16 May, 2014 [facility] [address] [id number] [address] [place] [address], [place] [address] May, [facility] [address] [id number] [address] [place] [address], [place] [address] May, [facility] [address] [id number] [address] [place] [address], [place] [address] Apr, 2013 [facility] [address] [id number] [address] [place] [address], [place] [address] Apr, [facility] [address] [id number] [address] [place] [address], [place] [address] Apr, [facility] [address] [id number] [address] [place] [address], [place] [address] Apr, [facility] [address] [id number] [address] [place] [address], [place] [address] 18 Apr, 2013 [facility] [address] [id number] [address] [place] [address], [place] [address] 18 Apr, 2014 [facility] [address] [id number] [address] [place] [address], [place] [id number] 18 Apr, 2014 [facility] [address] [id number] [address] [place] [address], [place] [address] Apr, [facility] [address] [id number] [address] [place] [address], [place] [address] Apr, 2013 [facility] [address] [id number] [address] [place] [address], [place] [address] Apr, [facility] [address] [id number] [address] [place] [address], [place] [address] Mar, [facility] [address] [id number] [address] [place] [address], [place] [address] Mar, [facility] [address] [id number] [address] [place] [address], [place] [address] Mar, [facility] [address] [id number] [address] [place] [address], [place] [address] Mar, [facility] [address] [id number] [address] [place] [address], [place] [address] Mar, [facility] [address] [id number] [address] [place] [address], [place] [address] Mar, [facility] [address] [id number] [address] [place] [address], [place] [address] Feb, [facility] [address] [id number] [address] [place] [address], [place] [address] Feb, [facility] [address] [id number] [address] [place] [address], [place] [address] Jan, [facility] [address] [id number] [address] [place] [address], [place] [address] Jan, [facility] [address] [id number] [address] [place] [address], [place] [address] Jan, [facility] [address] [id number] [address] [place] [address], [place] [address] Jan, [facility] [address] [id number] [address] [place] [address], [place] [address] December, [facility] [address] [id number] [address] [place] [address], [place] [address] December, [facility] [address] [id number] [address] [place] [address], [place] [address] December, [facility] [address] [id number] [address] [place] [address], [place] [address] December, [facility] [address] [id number] [address] [place] [address], [place] [address] December, [facility] [address] [id number] [address] [place] [address], [place] [address] December, [facility] [address] [id number] [address] [place] [address], [place] [address] December, [facility] [address] [id number] [address] [place] [address], [place] [address] December, [facility] [address] [id number] [address] [place] [address], [place] [address] December, [facility] [address] [id number] [address] [place] [address], [place] [address] Nov, [facility] [address] [id number] [address] [place] [address], [place] [address] Nov, [facility] [address] [id number] [address] [place] [address], [place] [id number] Nov, [facility] [address] [id number] [address] [place] [address], [place] [address] Nov, [facility] [address] [id number] [address] [place] [address], [place] [address] Nov, [facility] [address] [id number] [address] [place] [address], [place] [address] Nov, [facility] [address] [id number] [address] [place] [address], [place] [address] Nov, [facility] [address] [id number] [address] [place] [address], [place] [address] Nov, [facility] [address] [id number] [address] [place] [address], [place] [address] Nov, [facility] [address] [id number] [address] [place] [address], [place] [address] Nov, [facility] [address] [id number] [address] [place] [address], [place] [address] Oct, [facility] [address] [id number] [address] [place] [address], [place] [address] Oct, [facility] [address] [id number] [address] [place] [address], [place] [id number] Sep, [facility] [address] [id number] [address] [place] [address], [place] [id number] Sep, [facility] [address] [id number] [address] [place] [address], [place] [id number] Aug, [facility] [address] [id number] [address] [place] [address], [place] [id number] Aug, [facility] [address] [id number] [address] [place] [address], [place] [id number] Aug, [facility] [address] [id number] [address] [place] [address], [place] [id number] Aug, [facility] [address] [id number] [address] [place] [address], [place] [id number] Jul, [facility] [address] [id number] [address] [place] [address], [place] [id number] Jul, [facility] [address] [id number] [address] [place] [address], [place] [id number] Jul, [facility] [address] [id number] [address] [place] [address], [place] [id number] Jul, [facility] [address] [id number] [address] [place] [address], [place] [id number] Jun, [facility] [address] [id number] [address] [place] [address], [place] [id number] Jun, [facility] [address] [id number] [address] [place] [address], [place] [id number] May, [facility] [address] [id number] [address] [place] [address], [place] [id number] May, [facility] [address] [id number] [address] [place] [address], [place] [id number] May, [facility] [address] [id number] [address] [place] [address], [place] [id number] May, [facility] [address] [id number] [address] [place] [address], [place] [id number] May, [facility] [address] [id number] [address] [place] [address], [place] [id number] May, [facility] [address] [id number] [address] [place] [address], [place] [id number] Apr, [facility] [address] [id number] [address] [place] [address], [place] [id number] Apr, [facility] [address] [id number] [address] [place] [address], [place] [id number] Apr, [facility] [address] [id number] [address] [place] [address], [place] [id number] Feb, [facility] [address] [id number] [address] [place] [address], [place] [id number] Jan, [facility] [address] [id number] [address] [place] [address], [place] [id number] Jan, [facility] [address] [id number] [address] [place] [address], [place] [id number] Jan, [facility] [address] [id number] [address] [place] [address], [place] [id number] Jan, [facility] [address] [id number] [address] [place] [address], [place] [id number] December, [facility] [address] [id number] [address] [place] [address], [place] [id number] December, [facility] [address] [id number] [address] [place] [address], [place] [id number] Nov, [facility] [address] [id number] [address] [place] [address], [place] [id number] Nov, [facility] [address] [id number] [address] [place] [address], [place] [id number] Nov, [facility] [address] [id number] [address] [place] [address], [place] [id number] 11 Nov, 2012 [facility] [address] [id number] [facility] [place] [id number] 08 Nov, 2012 [facility] [address] [id number] [address] [place] [address], [place] [id number] 08 Nov, 2012 [facility] [address] [id number] [address] [place] [address], [place] [id number] 03 Nov, 2012 [facility] [address] [id number] [address] [place] [address], [place] [id number] 27 Oct, 2012 [facility] [address] [id number] [address] [place] [address], [place] [id number] 18 Oct, 2012 [facility] [address] [id number] [address] [place] [address], [place] [id number] 14 Oct, 2012 [facility] [address] [id number] [address] [place] [address], [place] [id number] 13 Oct, 2012 [facility] [address] [id number] [address] [place] [address], [place] [id number] 12 Oct, 2012 [facility] [address] [id number] [address] [place] [address], [place] [id number] Oct, [facility] [address] [id number] [address] [place] [address], [place] [id number] 08 Oct, 2012 [facility] [address] [id number] [address] [place] [address], [place] [id number] Sep, [facility] [address] [id number] [address] [place] [address], [place] [id number] Sep, [facility] [address] [id number] [address] [place] [address], [place] [id number] Aug, [facility] [address] [id number] [address] [place] [address], [place] [id number] Aug, [facility] [address] [id number] [address] [place] [address], [place] [id number] Jul, [facility] [address] [id number] [address] [place] [id number] Jul, [facility] [address] [id number] [address] [place] [id number] Jul, [facility] [address] [id number] [address] [place] [id number] Jul, [facility] [address] [id number] [address] [place] [id number] Jul, [facility] [address] [id number] [address] [place] [id number] Jul, [facility] [address] [id number] [address] [place] [id number] Jul, [facility] [address] [id number] [address] [place] [id number] Jul, [facility] [address] [id number] [address] [place] [id number] Jun, [facility] [address] [id number] [address] [place] [id number] Jun, IMMUNIZATIONS No Known Immunizations SOCIAL HISTORY Never Assessed REASON FOR VISIT Controlled Med Refill PLAN OF CARE VITAL SIGNS MEDICATIONS Medication Instructions Dosage Frequency Start Date End Date Duration S tatus Hydrocodone-Acetaminophen 5-325 MG Orally 3 times a day prn must last 4 weeks 1 Tablet December, Active RESULTS No Results PROCEDURES No Known [...]
--- OUTSIDE RECORDS SUMMARY | 2020-02-11 03:24 | XMS REPORT ---
Author Author АНДРЕЙ Madelineshawn LEONG Organization [facility] Address [address] [place] [address] Care Team Providers Care Dike Supervisor Name Role Phone KWESIKennedy DANG Unavailable PROBLEMS Type Condition ICD9-CM Code ZNF84-SW Code Onset Dates Condition S tatus SNOMED Code Problem Chronic pain G89.29 Active 7499147 1 Problem Pre-diabetes R73.09 Active 0955140 02 Problem Essential hypertension I10 Active 47659725 Problem BMI 45.0-49.9, adult Z68.42 Active 276427019 Problem Numbness and tingling in hands R20.2 Active 494899523 Problem GERD (gastroesophageal reflux disease) K21.9 Active 900485624 Problem Stasis dermatitis of both legs I87.2 Active 54850535 Problem History of abnormal cervical Pap smear Z87.898 Active 899367112 ALLERGIES No Information ENCOUNTERS Encounter Location Date Diagnosis [place] [address] [facility] [id number] [address] [place] [address] Mar, Chronic pain G89.29 [place] [place] [id number] [address] [place] [address] Feb, Chronic pain G89.29 [facility] [address] [facility] [id number] [address] [place] [address] Feb, Poison josep L23.7 [facility] [address] [facility] [id number] [address] [place] [address] Jan, Chronic pain G89.29 [facility] [address] [facility] [id number] [address] [place] [address] December, Chronic pain G89.29 [facility] [address] [facility] [id number] [address] [place] [address] Nov, Long-term use of high-risk m edication Z79.899 [facility] [address] [facility] [id number] [place] [address] Nov, Chronic pain G89.29 [place] [address] [place] [id number] [address] [place] [address] Oct, Chronic pain G89.29 ; Pre-di abetes R73.09 ; Long-term use of high- risk medication Z79.899 ; Allergic rhinitis, unspecified seasonality, unspecified trigger J30.9 ; BMI 45.0-49.9, adult Z68.42 and Essential hypertension I10 [place] [address] [address] Oct, Chronic pain G89.29 [place] [address] [address] Sep, Chronic pain G89.29 [place] [address] [address] Aug, Chronic pain G89.29 [place] [address] [address] Jul, [place] [address] [address] Jul, [place] [address] [address] Jun, Chronic pain G89.29 ; BMI 45 .0-49.9, adult Z68.42 ; Pre-diabetes R73.09 ; Essential hypertension I10 ; GERD (gastroesophageal reflux disease) K21.9 ; Yeast dermatitis B37.2 ; Dysuria R30.0 ; Acute non-recurrent maxillary sinusitis J01.00 and Acute cystitis with hematuria N30.01 [place] [address] [address] 13 Jun, 2017 Chronic pain G89.29 [place] [address] [address] Jun, Acute non-recurrent maxillar y sinusitis J01.00 and BMI 45.0-49.9, adult Z68.42 [place] [address] [address] May, [place] [address] [address] May, Chronic pain G89.29 [place] [address] [address] May, [place] [address] [address] Apr, Chronic pain G89.29 [place] [address] [address] Mar, [place] [address] [address] Mar, Essential hypertension I10 a nd Pre-diabetes R73.09 [place] [address] [address] Mar, Chronic pain G89.29 ; Essent ial hypertension I10 ; Depressive disorder, not elsewhere classified F32.9 ; GERD (gastroesophageal reflux disease) K21.9 ; Pre-diabetes R73.09 ; Stasis dermatitis of both legs I87.2 and Acute non-recurrent maxillary sinusitis J01.00 [place] [address] [address] Mar, Chronic pain G89.29 [place] [address] [address] Mar, Achilles tendinitis of right lower extremity M76.61 and Tinea corporis B35.4 [place] [address] [address] Feb, Yeast dermatitis B37.2 [place] [address] [place] [id number] [address] [place] [address] 14 Feb, 2017 Candidal intertrigo B37.2 an d Acute right ankle pain M25.571 [place] [address] [place] [id number] [address] [place] [address] 12 Feb, 2017 Chronic pain G89.29 [place] [address] [place] [id number] [address] [place] [address] Jan, [place] [address] [place] [id number] [place] [address] Jan, Chronic pain G89.29 [place] [address] [address] December, Chronic pain G89.29 ; Essent ial hypertension I10 ; Depressive disorder, not elsewhere classified F32.9 ; GERD (gastroesophageal reflux disease) K21.9 ; Pre-diabetes R73.09 ; Screening breast examination Z12.39 ; Stasis dermatitis of both legs I87.2 and Yeast dermatitis B37.2 [place] [id number] [place] [address] Nov, Chronic pain G89.29 [place] [address] [place] [id number] [address] [place] [address] Nov, Cellulitis of left lower ext remity L03.116 [place] [address] [place] [id number] [address] [place] [address] Nov, Cellulitis of left lower ext remity L03.116 [place] [address] [place] [id number] [address] [place] [address] Oct, Yeast dermatitis B37.2 [place] [address] [place] [id number] [address] [place] [address] Oct, Chronic pain G89.29 [place] [address] [place] [id number] [address] [place] [address] Sep, Chronic pain G89.29 ; Essent ial hypertension I10 ; Depressive disorder, not elsewhere classified F32.9 and GERD (gastroesophageal reflux disease) K21.9 [facility] [address] [address] Aug, Chronic pain G89.29 [facility] [address] [address] Aug, Cough R05 ; Rash R21 and Vinay h and nonspecific skin eruption R21 [place] [address] [address] Jul, Chronic pain G89.29 [place] [address] [address] Jun, Chronic pain G89.29 ; Bronch itis J40 ; Essential hypertension I10 ; Depressive disorder, not elsewhere classified F32.9 ; GERD (gastroesophageal reflux disease) K21.9 and History of long-term use of multiple prescription drugs Z92.29 [place] [address] [address] Jun, Bronchitis J40 ; Chills R68. 83 and Sore throat J02.9 [place] [address] [address] May, [facility] [address] [address] Apr, [facility] [address] [address] Apr, Acute mucoid otitis media of both ears H65.113 [place] [address] [address] 07 Apr, 2016 Yeast dermatitis B37.2 [address] R31.9 [facility] [address] [address] Mar, [place] [address] [address] Mar, [place] [address] [place] [id number] [address] [place] [address] Feb, Left anterior knee pain M25. 562 [place] [address] [address] Feb, Chronic pain G89.29 ; Essent ial hypertension I10 ; Depressive disorder, not elsewhere classified F32.9 ; GERD (gastroesophageal reflux disease) K21.9 and History of long-term use of multiple prescription drugs Z92.29 [place] [address] [address] Jan, [place] [address] [address] Jan, Well woman exam Z01.419 ; BM I 45.0-49.9, adult Z68.42 ; Family history of diabetes mellitus Z83.3 and Chronic pain G89.29 [place] [address] [address] December, Chronic pain G89.29 ; Essent ial hypertension I10 ; Depressive disorder, not elsewhere classified F32.9 ; GERD (gastroesophageal reflux disease) K21.9 ; 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 ; History of long-term use of multiple prescription drugs Z92.29 and Obesity E66.9 [place] [address] [address] Oct, [place] [address] [address] Oct, Well woman exam Z01.419 ; BM [...] Z12.4 and No natural teeth K00.0 [facility] [address] [facility] [id number] [address] [place] [address] Oct, [place] [address] [place] [id number] [address] [place] [address] Sep, Chronic pain G89.29 ; Essent ial hypertension I10 ; GERD (gastroesophageal reflux disease) K21.9 ; 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 ; Skin infection L08.9 and History of long-term use of multiple prescription drugs Z92.29 [place] [address] [facility] [id number] [address] [place] [address] Aug, [place] [address] [place] [id number] [place] [address] Jul, [place] [address] [place] [id number] [place] [address] Jul, [place] [address] [address] Jul, Upper respiratory infection J06.9 [place] [address] [place] [id number] [place] [address] Jul, Depressive disorder, not els ewhere classified F32.9 [place] [address] [place] [id number] [address] [place] [address] Jul, Chronic pain 338.29 [place] [address] [place] [id number] [address] [place] [address] Jul, Chronic pain G89.29 [place] [address] [place] [id number] [address] [place] [address] Jun, Poison josep L23.7 [place] [address] [place] [id number] [address] [place] [address] Jun, Allergic contact dermatitis due to plants, except food L23.7 [place] [address] [place] [id number] [address] [place] [address] Jun, Essential hypertension I10 ; Chronic pain G89.29 ; GERD (gastroesophageal reflux disease) K21.9 and Numbness and tingling in hands R20.2 [place] [address] [address] May, [place] [address] [address] Apr, [place] [address] [address] Mar, [place] [address] [address] Feb, Abdominal pain, left lateral 789.09 and Constipation 564.[address] [address] Feb, Depressive disorder, not els ewhere classified 311 and No condition on [place] V71.[address] [address] Feb, Spider bite 989.5 and Depres homar [address] [address] Feb, [address] [address] Feb, Chronic pain 338.29 ; Arthro zonia 716.90 and GERD (gastroesophageal reflux disease) 530.81 [place] [address] [address] Jan, Insect bites 919.[address] [address] Jan, [place] [address] [address] December, Skin infection, bacterial 68 6.9 ; Conjunctivitis 372.30 and Insect bites 919.[address] [place] [address] December, Chronic pain 338.29 ; Arthro zonia 716.90 ; Skin infection, bacterial 686.9 and Conjunctivitis 372.30 [facility] [address] [id number] [address] [place] [address] December, [facility] [address] [id number] [address] [place] [address] Nov, [facility] [address] [id number] [address] [place] [address] Nov, [facility] [address] [id number] [address] [place] [address] Oct, [facility] [address] [id number] [address] [place] [address] Oct, [facility] [address] [id number] [address] [place] [address] Sep, [facility] [address] [id number] [address] [place] [address] Sep, [facility] [address] [id number] [address] [place] [address] Aug, [facility] [address] [id number] [address] [place] [address] Aug, [facility] [address] [id number] [address] [place] [address] Aug, [facility] [address] [id number] [address] [place] [address] Aug, [facility] [address] [id number] [address] [place] [address] Jul, [facility] [address] [id number] [address] [place] [address] Jul, [facility] [address] [id number] [address] [place] [address] Jul, [facility] [address] [id number] [address] [place] [address], [place] [address] 15 Jul, 2014 [facility] [address] [id number] [address] [place] [address], [place] [address] 15 Jul, 2014 [facility] [address] [id number] [address] [place] [address], [place] [address] 15 Jul, 2014 [facility] [address] [id number] [address] [place] [address], [place] [address] 15 Jul, 2014 [facility] [address] [id number] [address] [place] [address], [place] [address] 12 Jul, 2014 [facility] [address] [id number] [address] [place] [address], [place] [address] Jul, [facility] [address] [id number] [address] [place] [address], [place] [address] 13 Jun, 2014 [facility] [address] [id number] [address] [place] [address], [place] [address] Jun, [facility] [address] [id number] [address] [place] [address], [place] [address] Jun, [facility] [address] [id number] [address] [place] [address], [place] [address] Jun, [facility] [address] [id number] [address] [place] [address], [place] [address] Jun, [facility] [address] [id number] [address] [place] [address], [place] [address] Jun, [facility] [address] [id number] [address] [place] [address], [place] [address] Jun, [facility] [address] [id number] [address] [place] [address], [place] [address] Jun, [facility] [address] [id number] [address] [place] [address], [place] [address] 17 May, 2014 [facility] [address] [id number] [address] [place] [address], [place] [address] 17 May, 2014 [facility] [address] [id number] [address] [place] [address], [place] [address] 16 May, 2014 [facility] [address] [id number] [address] [place] [address], [place] [address] May, [facility] [address] [id number] [address] [place] [address], [place] [address] May, [facility] [address] [id number] [address] [place] [address], [place] [address] Apr, 2013 [facility] [address] [id number] [address] [place] [address], [place] [address] Apr, [facility] [address] [id number] [address] [place] [address], [place] [address] Apr, [facility] [address] [id number] [address] [place] [address], [place] [address] Apr, [facility] [address] [id number] [address] [place] [address], [place] [address] 18 Apr, 2013 [facility] [address] [id number] [address] [place] [address], [place] [address] 18 Apr, 2014 [facility] [address] [id number] [address] [place] [address], [place] [address] 18 Apr, 2014 [facility] [address] [id number] [address] [place] [address], [place] [address] Apr, [facility] [address] [id number] [address] [place] [address], [place] [address] Apr, 2013 [facility] [address] [id number] [address] [place] [address], [place] [address] Apr, [facility] [address] [id number] [address] [place] [address], [place] [address] Mar, [facility] [address] [id number] [address] [place] [address], [place] [address] Mar, [facility] [address] [id number] [address] [place] [address], [place] [address] Mar, [facility] [address] [id number] [address] [place] [address], [place] [address] Mar, [facility] [address] [id number] [address] [place] [address], [place] [address] Mar, [facility] [address] [id number] [address] [place] [address], [place] [address] Mar, [facility] [address] [id number] [address] [place] [address], [place] [address] Feb, [facility] [address] [id number] [address] [place] [address], [place] [address] Feb, [facility] [address] [id number] [address] [place] [address], [place] [address] Jan, [facility] [address] [id number] [address] [place] [address], [place] [address] Jan, [facility] [address] [id number] [address] [place] [address], [place] [address] Jan, [facility] [address] [id number] [address] [place] [address], [place] [address] Jan, [facility] [address] [id number] [address] [place] [address], [place] [address] December, [facility] [address] [id number] [address] [place] [address], [place] [address] December, [facility] [address] [id number] [address] [place] [address], [place] [address] December, [facility] [address] [id number] [address] [place] [address], [place] [address] December, [facility] [address] [id number] [address] [place] [address], [place] [address] December, [facility] [address] [id number] [address] [place] [address], [place] [address] December, [facility] [address] [id number] [address] [place] [address], [place] [address] December, [facility] [address] [id number] [address] [place] [address], [place] [address] December, [facility] [address] [id number] [address] [place] [address], [place] [address] December, [facility] [address] [id number] [address] [place] [address], [place] [address] Nov, [facility] [address] [id number] [address] [place] [address], [place] [address] Nov, [facility] [address] [id number] [address] [place] [address], [place] [address] Nov, [facility] [address] [id number] [address] [place] [address], [place] [address] Nov, [facility] [address] [id number] [address] [place] [address], [place] [address] Nov, [facility] [address] [id number] [address] [place] [address], [place] [address] Nov, [facility] [address] [id number] [address] [place] [address], [place] [address] Nov, [facility] [address] [id number] [address] [place] [address], [place] [address] Nov, [facility] [address] [id number] [address] [place] [address], [place] [address] Nov, [facility] [address] [id number] [address] [place] [address], [place] [address] Nov, [facility] [address] [id number] [address] [place] [address], [place] [address] Oct, [facility] [address] [id number] [address] [place] [address], [place] [address] Oct, [facility] [address] [id number] [address] [place] [address], [place] [address] Sep, [facility] [address] [id number] [address] [place] [address], [place] [address] Sep, [facility] [address] [id number] [address] [place] [address], [place] [address] Aug, [facility] [address] [id number] [address] [place] [address], [place] [address] Aug, [facility] [address] [id number] [address] [place] [address], [place] [address] Aug, [facility] [address] [id number] [address] [place] [address], [place] [address] Aug, [facility] [address] [id number] [address] [place] [address], [place] [address] Jul, [facility] [address] [id number] [address] [place] [address], [place] [address] Jul, [facility] [address] [id number] [address] [place] [address], [place] [address] Jul, [facility] [address] [id number] [address] [place] [address], [place] [address] Jul, [facility] [address] [id number] [address] [place] [address], [place] [address] Jun, [facility] [address] [id number] [address] [place] [address], [place] [address] Jun, [facility] [address] [id number] [address] [place] [address], [place] [address] May, [facility] [address] [id number] [address] [place] [address], [place] [address] May, [facility] [address] [id number] [address] [place] [address], [place] [address] May, [facility] [address] [id number] [address] [place] [address], [place] [address] May, [facility] [address] [id number] [address] [place] [address], [place] [address] May, [facility] [address] [id number] [address] [place] [address], [place] [address] May, [facility] [address] [id number] [address] [place] [address], [place] [address] Apr, [facility] [address] [id number] [address] [place] [address], [place] [address] Apr, [facility] [address] [id number] [address] [place] [address], [place] [address] Apr, [facility] [address] [id number] [address] [place] [address], [place] [address] Feb, [facility] [address] [id number] [address] [place] [address], [place] [address] Jan, [facility] [address] [id number] [address] [place] [address], [place] [address] Jan, [facility] [address] [id number] [address] [place] [address], [place] [address] Jan, [facility] [address] [id number] [address] [place] [address], [place] [address] Jan, [facility] [address] [id number] [address] [place] [address], [place] [address] December, [facility] [address] [id number] [address] [place] [address], [place] [address] December, [facility] [address] [id number] [address] [place] [address], [place] [address] Nov, [facility] [address] [id number] [address] [place] [address], [place] [address] Nov, [facility] [address] [id number] [address] [place] [address], [place] [address] Nov, [facility] [address] [id number] [address] [place] [address], [place] [address] 11 Nov, [address] [facility] [address] [id number] [facility] [place] [address] 08 Nov, 2012 [facility] [address] [id number] [address] [place] [address], [place] [address] 08 Nov, 2012 [facility] [address] [id number] [address] [place] [address], [place] [address] 03 Nov, 2012 [facility] [address] [id number] [address] [place] [address], [place] [address] 27 Oct, 2012 [facility] [address] [id number] [address] [place] [address], [place] [address] 18 Oct, 2012 [facility] [address] [id number] [address] [place] [address], [place] [address] 14 Oct, 2012 [facility] [address] [id number] [address] [place] [address], [place] [address] 13 Oct, 2012 [facility] [address] [id number] [address] [place] [address], [place] [address] 12 Oct, 2012 [facility] [address] [id number] [address] [place] [address], [place] [address] Oct, [facility] [address] [id number] [address] [place] [address], [place] [address] 08 Oct, 2012 [facility] [address] [id number] [address] [place] [address], [place] [address] Sep, [facility] [address] [id number] [address] [place] [address], [place] [address] Sep, [facility] [address] [id number] [address] [place] [address], [place] [address] Aug, [facility] [address] [id number] [address] [place] [address], [place] [address] Aug, [facility] [address] [id number] [address] [place] [address], [place] [address] Jul, [facility] [address] [id number] [address] [place] [id number] Jul, [facility] [address] [id number] [address] [place] [phone] Jul, [facility] [address] [id number] [address] [place] [address] Jul, [facility] [address] [id number] [address] [place] [phone] Jul, [facility] [address] [id number] [address] [place] [address] Jul, [facility] [address] [id number] [address] [place] [address] Jul, [facility] [address] [id number] [address] [place] [id number] Jul, [facility] [address] [id number] [address] [place] [id number] Jun, [facility] [address] [id number] [address] [place] [id number] Jun, IMMUNIZATIONS No Known Immunizations SOCIAL HISTORY Never Assessed REASON FOR VISIT Controlled Med Refill 01/15 PLAN OF CARE VITAL SIGNS MEDICATIONS Medication Instructions Dosage Frequency Start Date End Date Duration S tatus Hydrocodone-Acetaminophen 5-325 MG Orally 3 times a day prn must last 4 weeks 1 Tablet Jan, Active RESULTS No Results PROCEDURES No Known [...]
--- OUTSIDE RECORDS SUMMARY | 2020-02-11 03:24 | XMS REPORT ---
Author Author АНДРЕЙ Madelineshawn LEONG Organization [facility] Address [address] [place] [address] Care Team Providers Care Gelatin Powder Mixer Name Role Phone АНДРЕЙ DANG Unavailable PROBLEMS Type Condition ICD9-CM Code WOD06-OJ Code Onset Dates Condition S tatus SNOMED Code Problem Chronic pain G89.29 Active 3921402 1 Problem Pre-diabetes R73.09 Active 8494780 02 Problem Essential hypertension I10 Active 62449455 Problem BMI 45.0-49.9, adult Z68.42 Active 468289000 Problem Numbness and tingling in hands R20.2 Active 194016856 Problem GERD (gastroesophageal reflux disease) K21.9 Active 804256150 Problem Stasis dermatitis of both legs I87.2 Active 11681021 Problem History of abnormal cervical Pap smear Z87.898 Active 532186816 ALLERGIES No Information ENCOUNTERS Encounter Location Date Diagnosis [place] [address] [address] [facility] [id number] [address] [place] [address] Feb, Chronic pain G89.29 [place] [address] [address] [place] [id number] [address] [place] [address] Feb, Poison josep L23.7 [place] [address] [address] [facility] [id number] [address] [place] [address] Jan, Chronic pain G89.29 [place] [id number] [facility] [id number] [address] [place] [address] December, Chronic pain G89.29 [place] [address] [address] [facility] [id number] [address] [place] [address] Nov, Long-term use of high-risk m edication Z79.899 [place] [address] [address] [place] [id number] [address] [place] [address] Nov, Chronic pain G89.29 [place] [id number] [place] [address] Oct, Chronic pain G89.29 ; Pre-di abetes R73.09 ; Long-term use of high- risk medication Z79.899 ; Allergic rhinitis, unspecified seasonality, unspecified trigger J30.9 ; BMI 45.0-49.9, adult Z68.42 and Essential hypertension I10 [place] [address] [address] Oct, Chronic pain G89.29 [place] [address] [address] Sep, Chronic pain G89.29 [place] [address] [address] Aug, Chronic pain G89.29 [place] [address] [address] Jul, [place] [address] [address] Jul, [place] [address] [address] Jun, Chronic pain G89.29 ; BMI 45 .0-49.9, adult Z68.42 ; Pre-diabetes R73.09 ; Essential hypertension I10 ; GERD (gastroesophageal reflux disease) K21.9 ; Yeast dermatitis B37.2 ; Dysuria R30.0 ; Acute non-recurrent maxillary sinusitis J01.00 and Acute cystitis with hematuria N30.01 [place] [address] [address] 13 Jun, 2017 Chronic pain G89.29 [place] [address] [address] 02 Jun, 2017 Acute non-recurrent maxillar y sinusitis J01.00 and BMI 45.0-49.9, adult Z68.42 [place] [address] [address] May, [place] [address] [address] May, Chronic pain G89.29 [place] [address] [address] May, [place] [address] [address] Apr, Chronic pain G89.29 [place] [address] [address] Mar, [place] [address] [address] Mar, Essential hypertension I10 a nd Pre-diabetes R73.09 [place] [address] [address] Mar, Chronic pain G89.29 ; Essent ial hypertension I10 ; Depressive disorder, not elsewhere classified F32.9 ; GERD (gastroesophageal reflux disease) K21.9 ; Pre-diabetes R73.09 ; Stasis dermatitis of both legs I87.2 and Acute non-recurrent maxillary sinusitis J01.00 [place] [address] [address] Mar, Chronic pain G89.29 [place] [address] [address] Mar, Achilles tendinitis of right lower extremity M76.61 and Tinea corporis B35.4 [place] [address] [address] Feb, Yeast dermatitis B37.2 [place] [address] [address] Feb, Candidal intertrigo B37.2 an d Acute right ankle pain M25.571 [facility] [address] [facility] [id number] [address] [place] [address] Feb, Chronic pain G89.29 [id number] [facility] [id number] [address] [place] [address] Jan, [place] [address] [address] [facility] [id number] [address] [place] [address] Jan, Chronic pain G89.29 [place] [address] [address] [facility] [id number] [address] [place] [address] December, Chronic pain G89.29 ; Essent ial hypertension I10 ; Depressive disorder, not elsewhere classified F32.9 ; GERD (gastroesophageal reflux disease) K21.9 ; Pre-diabetes R73.09 ; Screening breast examination Z12.39 ; Stasis dermatitis of both legs I87.2 and Yeast dermatitis B37.2 [place] [address] [address] [facility] [id number] [address] [place] [address] Nov, Chronic pain G89.29 [place] [address] [address] [facility] [id number] [address] [place] [address] Nov, Cellulitis of left lower ext remity L03.116 [place] [address] [address] [facility] [id number] [address] [place] [address] Nov, Cellulitis of left lower ext remity L03.116 [place] [address] [address] [facility] [id number] [address] [place] [address] Oct, Yeast dermatitis B37.2 [place] [address] [address] [facility] [id number] [address] [place] [address] Oct, Chronic pain G89.29 [place] [address] [address] [facility] [id number] [address] [place] [address] Sep, Chronic pain G89.29 ; Essent ial hypertension I10 ; Depressive disorder, not elsewhere classified F32.9 and GERD (gastroesophageal reflux disease) K21.9 [place] [address] [address] Aug, Chronic pain G89.29 [facility] [address] [address] Aug, Cough R05 ; Rash R21 and Vinay h and nonspecific skin eruption R21 [place] [address] [address] Jul, Chronic pain G89.29 [place] [address] [address] Jun, Chronic pain G89.29 ; Bronch itis J40 ; Essential hypertension I10 ; Depressive disorder, not elsewhere classified F32.9 ; GERD (gastroesophageal reflux disease) K21.9 and History of long-term use of multiple prescription drugs Z92.29 [place] [address] [address] Jun, Bronchitis J40 ; Chills R68. 83 and Sore throat J02.9 [place] [address] [address] May, [place] [address] [address] Apr, [facility] [address] [address] Apr, Acute mucoid otitis media of both ears H65.113 [place] [address] [address] Apr, Yeast dermatitis B37.2 and H ematuria R31.9 [place] [address] [address] Mar, [place] [address] [address] Mar, [place] [address] [address] Feb, Left anterior knee pain M25. 562 [place] [address] [address] Feb, Chronic pain G89.29 ; Essent ial hypertension I10 ; Depressive disorder, not elsewhere classified F32.9 ; GERD (gastroesophageal reflux disease) K21.9 and History of long-term use of multiple prescription drugs Z92.29 [place] [address] [address] Jan, [place] [address] [address] Jan, Well woman exam Z01.419 ; BM I 45.0-49.9, adult Z68.42 ; Family history of diabetes mellitus Z83.3 and Chronic pain G89.29 [place] [address] [address] December, Chronic pain G89.29 ; Essent ial hypertension I10 ; Depressive disorder, not elsewhere classified F32.9 ; GERD (gastroesophageal reflux disease) K21.9 ; 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 ; History of long-term use of multiple prescription drugs Z92.29 and Obesity E66.9 [place] [address] [address] Oct, [place] [address] [address] Oct, Well woman exam Z01.419 ; BM [...] smear Z12.4 and No natural teeth K00.[address] [address] Oct, [id number] [id number] [address] [place] [address] Sep, Chronic pain G89.29 ; Essent ial hypertension I10 ; GERD (gastroesophageal reflux disease) K21.9 ; 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 ; Skin infection L08.9 and History of long-term use of multiple prescription drugs Z92.29 [place] [address] [address] [place] [id number] [place] [address] Aug, [place] [address] [place] [id number] [place] [address] Jul, [place] [address] [address] Jul, [place] [address] [address] Jul, Upper respiratory infection J06.9 [place] [address] [address] Jul, Depressive disorder, not els ewhere classified F32.9 [place] [address] [address] Jul, Chronic pain 338.29 [place] [address] [address] [place] [id number] [place] [address] Jul, Chronic pain G89.29 [place] [address] [address] [place] [id number] [address] [place] [address] 16 Jun, 2015 Poison josep L23.7 [place] [address] [address] [place] [id number] [address] [place] [address] Jun, Allergic contact dermatitis due to plants, except food L23.7 [place] [address] [address] [place] [id number] [address] [place] [address] 03 Jun, 2015 Essential hypertension I10 ; Chronic pain G89.29 ; GERD (gastroesophageal reflux disease) K21.9 and Numbness and tingling in hands R20.2 [facility] [address] [place] [id number] [address] [place] [address] May, [facility] [address] [address] Apr, [facility] [address] [place] [id number] [address] [place] [address] Mar, [facility] [address] [address] Feb, Abdominal pain, left lateral 789.09 and Constipation 564.00 [place] [address] [address] Feb, Depressive disorder, not els ewhere classified 311 and No condition on [place] II V71.09 [place] [address] [address] Feb, Spider bite 989.5 and Depres homar 311 [place] [address] [address] Feb, [place] [address] [address] Feb, Chronic pain 338.29 ; Arthro zonia 716.90 and GERD (gastroesophageal reflux disease) 530.81 [place] [address] [address] [place] [id number] [address] [place] [address] Jan, Insect bites 919.4 [place] [address] [address] [place] [id number] [address] [place] [address] Jan, [place] [address] [place] [id number] [place] [address] December, Skin infection, bacterial 68 6.9 ; Conjunctivitis 372.30 and Insect bites 919.4 [place] [address] [address] [place] [id number] [address] [place] [address] December, Chronic pain 338.29 ; Arthro zonia 716.90 ; Skin infection, bacterial 686.9 and Conjunctivitis 372.30 [facility] [address] [id number] [address] [place] [address], [place] [address] December, [facility] [address] [id number] [address] [place] [address] Nov, [facility] [address] [id number] [address] [place] [address] Nov, [facility] [address] [id number] [address] [place] [address] Oct, [facility] [address] [id number] [address] [place] [address], [place] [address] Oct, [facility] [address] [id number] [address] [place] [address] Sep, [facility] [address] [id number] [address] [place] [address] Sep, [facility] [address] [id number] [address] [place] [address] Aug, [facility] [address] [id number] [address] [place] [address] Aug, [facility] [address] [id number] [address] [place] [address] Aug, [facility] [address] [id number] [address] [place] [address] Aug, [facility] [address] [id number] [address] [place] [address] Jul, [facility] [address] [id number] [address] [place] [address] Jul, [facility] [address] [id number] [address] [place] [address] Jul, [facility] [address] [id number] [address] [place] [address] Jul, [facility] [address] [id number] [address] [place] [address], [place] [address] 15 Jul, 2014 [facility] [address] [id number] [address] [place] [address], [place] [address] 15 Jul, 2014 [facility] [address] [id number] [address] [place] [address], [place] [address] 15 Jul, 2014 [facility] [address] [id number] [address] [place] [address], [place] [address] Jul, [facility] [address] [id number] [address] [place] [address], [place] [address] Jul, [facility] [address] [id number] [address] [place] [address], [place] [address] Jun, [facility] [address] [id number] [address] [place] [address], [place] [address] Jun, [facility] [address] [id number] [address] [place] [address], [place] [address] Jun, [facility] [address] [id number] [address] [place] [address], [place] [address] Jun, [facility] [address] [id number] [address] [place] [address], [place] [address] Jun, [facility] [address] [id number] [address] [place] [address], [place] [address] Jun, [facility] [address] [id number] [address] [place] [address], [place] [address] Jun, [facility] [address] [id number] [address] [place] [address], [place] [address] Jun, [facility] [address] [id number] [address] [place] [address], [place] [address] May, [facility] [address] [id number] [address] [place] [address], [place] [address] May, [facility] [address] [id number] [address] [place] [address], [place] [address] May, [facility] [address] [id number] [address] [place] [address], [place] [address] May, [facility] [address] [id number] [address] [place] [address], [place] [address] May, [facility] [address] [id number] [address] [place] [address], [place] [address] Apr, [facility] [address] [id number] [address] [place] [address], [place] [address] Apr, 2013 [facility] [address] [id number] [address] [place] [address], [place] [address] Apr, [facility] [address] [id number] [address] [place] [address], [place] [address] Apr, [facility] [address] [id number] [address] [place] [address], [place] [address] Apr, [facility] [address] [id number] [address] [place] [address], [place] [address] Apr, [facility] [address] [id number] [address] [place] [address], [place] [address] Apr, [facility] [address] [id number] [address] [place] [address], [place] [address] Apr, [facility] [address] [id number] [address] [place] [address], [place] [address] Apr, [facility] [address] [id number] [address] [place] [address], [place] [address] Apr, [facility] [address] [id number] [address] [place] [address], [place] [address] Mar, [facility] [address] [id number] [address] [place] [address], [place] [address] Mar, [facility] [address] [id number] [address] [place] [address], [place] [address] Mar, [facility] [address] [id number] [address] [place] [address], [place] [address] Mar, [facility] [address] [id number] [address] [place] [address], [place] [address] Mar, [facility] [address] [id number] [address] [place] [address], [place] [address] Mar, [facility] [address] [id number] [address] [place] [address], [place] [address] Feb, [facility] [address] [id number] [address] [place] [address], [place] [address] Feb, [facility] [address] [id number] [address] [place] [address], [place] [address] Jan, [facility] [address] [id number] [address] [place] [address], [place] [address] Jan, [facility] [address] [id number] [address] [place] [address], [place] [address] Jan, [facility] [address] [id number] [address] [place] [address], [place] [address] Jan, [facility] [address] [id number] [address] [place] [address], [place] [address] December, [facility] [address] [id number] [address] [place] [address], [place] [address] December, [facility] [address] [id number] [address] [place] [address], [place] [address] December, [facility] [address] [id number] [address] [place] [address], [place] [address] December, [facility] [address] [id number] [address] [place] [address], [place] [address] December, [facility] [address] [id number] [address] [place] [address], [place] [address] December, [facility] [address] [id number] [address] [place] [address], [place] [address] December, [facility] [address] [id number] [facility] [place] [address] December, [facility] [address] [id number] [address] [place] [address], [place] [address] December, [facility] [address] [id number] [address] [place] [address], [place] [address] Nov, [facility] [address] [id number] [address] [place] [address], [place] [address] Nov, [facility] [address] [id number] [address] [place] [address], [place] [address] Nov, [facility] [address] [id number] [address] [place] [address], [place] [address] Nov, [facility] [address] [id number] [address] [place] [address], [place] [address] Nov, [facility] [address] [id number] [address] [place] [address], [place] [address] Nov, [facility] [address] [id number] [address] [place] [address], [place] [address] Nov, [facility] [address] [id number] [address] [place] [address], [place] [address] Nov, [facility] [address] [id number] [address] [place] [address], [place] [address] Nov, [facility] [address] [id number] [address] [place] [address], [place] [address] Nov, [facility] [address] [id number] [address] [place] [address], [place] [address] Oct, [facility] [address] [id number] [address] [place] [address], [place] [address] Oct, [facility] [address] [id number] [address] [place] [address], [place] [address] Sep, [facility] [address] [id number] [address] [place] [address] [address] Sep, [facility] [address] [id number] [address] [place] [address], [place] [address] Aug, [facility] [address] [id number] [address] [place] [address], [place] [address] Aug, [facility] [address] [id number] [address] [place] [address], [place] [address] Aug, [facility] [address] [id number] [address] [place] [address], [place] [address] Aug, [facility] [address] [id number] [address] [place] [address], [place] [address] Jul, [facility] [address] [id number] [address] [place] [address], [place] [address] Jul, [facility] [address] [id number] [address] [place] [address], [place] [address] Jul, [facility] [address] [id number] [address] [place] [address], [place] [address] Jul, [facility] [address] [id number] [address] [place] [address], [place] [address] Jun, [facility] [address] [id number] [address] [place] [address], [place] [address] Jun, [facility] [address] [id number] [address] [place] [address], [place] [address] May, [facility] [address] [id number] [address] [place] [id number] May, [facility] [address] [id number] [address] [place] [address], [place] [id number] May, [facility] [address] [id number] [address] [place] [address], [place] [address] May, [facility] [address] [id number] [address] [place] [address], [place] [address] May, [facility] [address] [id number] [address] [place] [address], [place] [id number] 09 May, 2013 [facility] [address] [id number] [address] [place] [address], [place] [address] 30 Apr, 2013 [facility] [address] [id number] [address] [place] [address], [place] [id number] 23 Apr, 2013 [facility] [address] [id number] [address] [place] [address], [place] [address] 03 Apr, 2013 [facility] [address] [id number] [address] [place] [address], [place] [address] Feb, [facility] [address] [id number] [address] [place] [address], [place] [address] 27 Jan, 2013 [facility] [address] [id number] [address] [place] [address], [place] [id number] 18 Jan, 2013 [facility] [address] [id number] [address] [place] [address], [place] [address] Jan, [facility] [address] [id number] [address] [place] [address], [place] [address] 14 Jan, 2013 [facility] [address] [id number] [address] [place] [address], [place] [address] December, [facility] [address] [id number] [address] [place] [address], [place] [address] December, [facility] [address] [id number] [address] [place] [address], [place] [address] 24 Nov, 2012 [facility] [address] [id number] [address] [place] [address], [place] [address] Nov, [facility] [address] [id number] [address] [place] [address], [place] [address] Nov, [facility] [address] [id number] [address] [place] [address], [place] [address] Nov, [facility] [address] [id number] [address] [place] [address], [place] [address] 08 Nov, 2012 [facility] [address] [id number] [address] [place] [address], [place] [id number] 08 Nov, 2012 [facility] [address] [id number] [address] [place] [address], [place] [address] 03 Nov, 2012 [facility] [address] [id number] [address] [place] [address], [place] [address] 27 Oct, 2012 [facility] [address] [id number] [address] [place] [address], [place] [address] 18 Oct, 2012 [facility] [address] [id number] [address] [place] [address], [place] [address] 14 Oct, 2012 [facility] [address] [id number] [address] [place] [address], [place] [address] 13 Oct, 2012 [facility] [address] [id number] [address] [place] [address], [place] [address] 12 Oct, 2012 [facility] [address] [id number] [address] [place] [address], [place] [address] 11 Oct, 2012 [facility] [address] [id number] [address] [place] [address], [place] [id number] 08 Oct, 2012 [facility] [facility] [address] [id number] [address] [place] [address], [place] [id number] 20 Sep, 2012 [facility] [address] [id number] [address] [place] [address], [place] [id number] Sep, [facility] [address] [id number] [address] [place] [address], [place] [id number] Aug, [facility] [address] [id number] [address] [place] [address], [place] [id number] Aug, [facility] [address] [id number] [address] [place] [address], [place] [phone] Jul, [facility] [address] [id number] [address] [place] [address], [place] [id number] Jul, [facility] [address] [id number] [address] [place] [phone] Jul, [facility] [address] [facility] [id number] [address] [place] [id number] Jul, [facility] [address] [facility] [id number] [address] [place] [id number] Jul, [facility] [address] [facility] [id number] [address] [place] [phone] Jul, [facility] [address] [facility] [id number] [address] [place] [id number] Jul, [facility] [address] [facility] [id number] [address] [place] [id number] Jul, [facility] [address] [facility] [id number] [address] [place] [id number] Jun, [facility] [address] [facility] [id number] [address] [place] [phone] Jun, IMMUNIZATIONS No Known Immunizations SOCIAL HISTORY Never Assessed REASON FOR VISIT Lab (walk-in)--[facility] PLAN OF CARE VITAL SIGNS MEDICATIONS Unknown Medications RESULTS No Results PROCEDURES Procedure Date Ordered Result Body Site DRUG TEST PRSMV CHEM ANLYZR November 16, 2017 INSTRUCTIONS MEDICATIONS ADMINISTERED No Known Medications MEDICAL [...]
--- OUTSIDE RECORDS SUMMARY | 2020-02-11 03:24 | XMS REPORT ---
Author Author АНДРЕЙ Madelineshawn LEONG Organization [facility] Address [address] [place] [address] Care Team Providers Care Computer Systems Architect Name Role Phone АНДРЕЙ DANG Unavailable PROBLEMS Type Condition ICD9-CM Code ZWL35-VG Code Onset Dates Condition S tatus SNOMED Code Problem Chronic pain G89.29 Active 3477693 1 Problem Pre-diabetes R73.09 Active 6708711 02 Problem Essential hypertension I10 Active 86609144 Problem BMI 45.0-49.9, adult Z68.42 Active 720615958 Problem Numbness and tingling in hands R20.2 Active 832922369 Problem GERD (gastroesophageal reflux disease) K21.9 Active 206480694 Problem Stasis dermatitis of both legs I87.2 Active 05224631 Problem History of abnormal cervical Pap smear Z87.898 Active 379688029 ALLERGIES No Information ENCOUNTERS Encounter Location Date Diagnosis [place] [address] [address] [facility] [id number] [address] [place] [address] Feb, Chronic pain G89.29 [place] [address] [address] [place] [id number] [address] [place] [address] Feb, Poison josep L23.7 [place] [address] [address] [facility] [id number] [address] [place] [address] Jan, Chronic pain G89.29 [place] [facility] [id number] [address] [place] [address] December, Chronic pain G89.29 [place] [address] [address] [facility] [id number] [address] [place] [address] Nov, Long-term use of high-risk m edication Z79.899 [place] [address] [address] [place] [id number] [address] [place] [address] Nov, Chronic pain G89.29 [place] [id number] [place] [address] Oct, Chronic pain G89.29 ; Pre-di abetes R73.09 ; Long-term use of high- risk medication Z79.899 ; Allergic rhinitis, unspecified seasonality, unspecified trigger J30.9 ; BMI 45.0-49.9, adult Z68.42 and Essential hypertension I10 [place] [address] [address] Oct, Chronic pain G89.29 [place] [address] [address] Sep, Chronic pain G89.29 [place] [address] [address] Aug, Chronic pain G89.29 [place] [address] [address] Jul, [place] [address] [address] Jul, [place] [address] [address] Jun, Chronic pain G89.29 ; BMI 45 .0-49.9, adult Z68.42 ; Pre-diabetes R73.09 ; Essential hypertension I10 ; GERD (gastroesophageal reflux disease) K21.9 ; Yeast dermatitis B37.2 ; Dysuria R30.0 ; Acute non-recurrent maxillary sinusitis J01.00 and Acute cystitis with hematuria N30.01 [place] [address] [address] 13 Jun, 2017 Chronic pain G89.29 [place] [address] [address] 02 Jun, 2017 Acute non-recurrent maxillar y sinusitis J01.00 and BMI 45.0-49.9, adult Z68.42 [place] [address] [address] May, [place] [address] [address] May, Chronic pain G89.29 [place] [address] [address] May, [place] [address] [address] Apr, Chronic pain G89.29 [place] [address] [address] Mar, [place] [address] [address] Mar, Essential hypertension I10 a nd Pre-diabetes R73.09 [place] [address] [address] Mar, Chronic pain G89.29 ; Essent ial hypertension I10 ; Depressive disorder, not elsewhere classified F32.9 ; GERD (gastroesophageal reflux disease) K21.9 ; Pre-diabetes R73.09 ; Stasis dermatitis of both legs I87.2 and Acute non-recurrent maxillary sinusitis J01.00 [place] [address] [address] Mar, Chronic pain G89.29 [place] [address] [address] Mar, Achilles tendinitis of right lower extremity M76.61 and Tinea corporis B35.4 [place] [address] [address] Feb, Yeast dermatitis B37.2 [place] [address] [address] Feb, Candidal intertrigo B37.2 an d Acute right ankle pain M25.571 [facility] [address] [facility] [id number] [address] [place] [address] Feb, Chronic pain G89.29 [place] [facility] [id number] [address] [place] [address] Jan, [place] [address] [address] [facility] [id number] [address] [place] [address] Jan, Chronic pain G89.29 [place] [address] [address] [facility] [id number] [address] [place] [address] December, Chronic pain G89.29 ; Essent ial hypertension I10 ; Depressive disorder, not elsewhere classified F32.9 ; GERD (gastroesophageal reflux disease) K21.9 ; Pre-diabetes R73.09 ; Screening breast examination Z12.39 ; Stasis dermatitis of both legs I87.2 and Yeast dermatitis B37.2 [place] [address] [address] [facility] [id number] [address] [place] [address] Nov, Chronic pain G89.29 [place] [address] [address] [facility] [id number] [address] [place] [address] Nov, Cellulitis of left lower ext remity L03.116 [place] [address] [address] [facility] [id number] [address] [place] [address] Nov, Cellulitis of left lower ext remity L03.116 [place] [address] [address] [facility] [id number] [address] [place] [address] Oct, Yeast dermatitis B37.2 [place] [address] [address] [facility] [id number] [address] [place] [address] Oct, Chronic pain G89.29 [place] [address] [address] [facility] [id number] [address] [place] [address] Sep, Chronic pain G89.29 ; Essent ial hypertension I10 ; Depressive disorder, not elsewhere classified F32.9 and GERD (gastroesophageal reflux disease) K21.9 [place] [address] [address] Aug, Chronic pain G89.29 [facility] [address] [address] Aug, Cough R05 ; Rash R21 and Vinay h and nonspecific skin eruption R21 [place] [address] [address] Jul, Chronic pain G89.29 [place] [address] [address] Jun, Chronic pain G89.29 ; Bronch itis J40 ; Essential hypertension I10 ; Depressive disorder, not elsewhere classified F32.9 ; GERD (gastroesophageal reflux disease) K21.9 and History of long-term use of multiple prescription drugs Z92.29 [place] [address] [address] Jun, Bronchitis J40 ; Chills R68. 83 and Sore throat J02.9 [place] [address] [address] May, [place] [address] [address] Apr, [facility] [address] [address] Apr, Acute mucoid otitis media of both ears H65.113 [place] [address] [address] Apr, Yeast dermatitis B37.2 and H ematuria R31.9 [place] [address] [address] Mar, [place] [address] [address] Mar, [place] [address] [address] Feb, Left anterior knee pain M25. 562 [place] [address] [address] Feb, Chronic pain G89.29 ; Essent ial hypertension I10 ; Depressive disorder, not elsewhere classified F32.9 ; GERD (gastroesophageal reflux disease) K21.9 and History of long-term use of multiple prescription drugs Z92.29 [place] [address] [address] Jan, [place] [address] [address] Jan, Well woman exam Z01.419 ; BM I 45.0-49.9, adult Z68.42 ; Family history of diabetes mellitus Z83.3 and Chronic pain G89.29 [place] [address] [address] December, Chronic pain G89.29 ; Essent ial hypertension I10 ; Depressive disorder, not elsewhere classified F32.9 ; GERD (gastroesophageal reflux disease) K21.9 ; 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 ; History of long-term use of multiple prescription drugs Z92.29 and Obesity E66.9 [place] [address] [address] Oct, [place] [address] [address] Oct, Well woman exam Z01.419 ; BM [...] smear Z12.4 and No natural teeth K00.[address] [address] Oct, [place] [id number] [address] [place] [address] Sep, Chronic pain G89.29 ; Essent ial hypertension I10 ; GERD (gastroesophageal reflux disease) K21.9 ; 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 ; Skin infection L08.9 and History of long-term use of multiple prescription drugs Z92.29 [place] [address] [address] [place] [id number] [place] [address] Aug, [place] [address] [address] [place] [id number] [place] [address] Jul, [place] [address] [address] Jul, [place] [address] [address] Jul, Upper respiratory infection J06.9 [place] [address] [address] Jul, Depressive disorder, not els ewhere classified F32.9 [place] [address] [address] Jul, Chronic pain 338.29 [place] [address] [address] [place] [id number] [place] [address] Jul, Chronic pain G89.29 [place] [address] [address] [place] [id number] [address] [place] [address] 16 Jun, 2015 Poison josep L23.7 [place] [address] [address] [place] [id number] [address] [place] [address] Jun, Allergic contact dermatitis due to plants, except food L23.7 [place] [address] [address] [place] [id number] [address] [place] [address] 03 Jun, 2015 Essential hypertension I10 ; Chronic pain G89.29 ; GERD (gastroesophageal reflux disease) K21.9 and Numbness and tingling in hands R20.2 [facility] [address] [place] [id number] [address] [place] [address] May, [facility] [address] [address] Apr, [facility] [address] [place] [id number] [address] [place] [address] Mar, [facility] [address] [address] Feb, Abdominal pain, left lateral 789.09 and Constipation 564.00 [place] [address] [address] Feb, Depressive disorder, not els ewhere classified 311 and No condition on [place] II V71.09 [place] [address] [address] Feb, Spider bite 989.5 and Depres homar 311 [place] [address] [address] Feb, [place] [address] [address] Feb, Chronic pain 338.29 ; Arthro zonia 716.90 and GERD (gastroesophageal reflux disease) 530.81 [place] [address] [address] [place] [id number] [address] [place] [address] Jan, Insect bites 919.4 [place] [address] [address] [place] [id number] [address] [place] [address] Jan, [place] [address] [address] [place] [id number] [place] [address] December, Skin infection, bacterial 68 6.9 ; Conjunctivitis 372.30 and Insect bites 919.4 [place] [address] [address] [place] [id number] [address] [place] [address] December, Chronic pain 338.29 ; Arthro zonia 716.90 ; Skin infection, bacterial 686.9 and Conjunctivitis 372.30 [facility] [address] [id number] [address] [place] [address], [place] [address] December, [facility] [address] [id number] [address] [place] [address] Nov, [facility] [address] [id number] [address] [place] [address] Nov, [facility] [address] [id number] [address] [place] [address] Oct, [facility] [address] [id number] [address] [place] [address], [place] [address] Oct, [facility] [address] [id number] [address] [place] [address] Sep, [facility] [address] [id number] [address] [place] [address] Sep, [facility] [address] [id number] [address] [place] [address] Aug, [facility] [address] [id number] [address] [place] [address] Aug, [facility] [address] [id number] [address] [place] [address] Aug, [facility] [address] [id number] [address] [place] [address] Aug, [facility] [address] [id number] [address] [place] [address] Jul, [facility] [address] [id number] [address] [place] [address] Jul, [facility] [address] [id number] [address] [place] [address] Jul, [facility] [address] [id number] [address] [place] [address] Jul, [facility] [address] [id number] [address] [place] [address], [place] [address] 15 Jul, 2014 [facility] [address] [id number] [address] [place] [address], [place] [address] 15 Jul, 2014 [facility] [address] [id number] [address] [place] [address], [place] [address] 15 Jul, 2014 [facility] [address] [id number] [address] [place] [address], [place] [address] Jul, [facility] [address] [id number] [address] [place] [address], [place] [address] Jul, [facility] [address] [id number] [address] [place] [address], [place] [address] Jun, [facility] [address] [id number] [address] [place] [address], [place] [address] Jun, [facility] [address] [id number] [address] [place] [address], [place] [address] Jun, [facility] [address] [id number] [address] [place] [address], [place] [address] Jun, [facility] [address] [id number] [address] [place] [address], [place] [address] Jun, [facility] [address] [id number] [address] [place] [address], [place] [address] Jun, [facility] [address] [id number] [address] [place] [address], [place] [address] Jun, [facility] [address] [id number] [address] [place] [address], [place] [address] Jun, [facility] [address] [id number] [address] [place] [address], [place] [address] May, [facility] [address] [id number] [address] [place] [address], [place] [address] May, [facility] [address] [id number] [address] [place] [address], [place] [address] May, [facility] [address] [id number] [address] [place] [address], [place] [address] May, [facility] [address] [id number] [address] [place] [address], [place] [address] May, [facility] [address] [id number] [address] [place] [address], [place] [address] Apr, [facility] [address] [id number] [address] [place] [address], [place] [address] Apr, 2013 [facility] [address] [id number] [address] [place] [address], [place] [address] Apr, [facility] [address] [id number] [address] [place] [address], [place] [address] Apr, [facility] [address] [id number] [address] [place] [address], [place] [address] Apr, [facility] [address] [id number] [address] [place] [address], [place] [address] Apr, [facility] [address] [id number] [address] [place] [address], [place] [address] Apr, [facility] [address] [id number] [address] [place] [address], [place] [address] Apr, [facility] [address] [id number] [address] [place] [address], [place] [address] Apr, [facility] [address] [id number] [address] [place] [address], [place] [address] Apr, [facility] [address] [id number] [address] [place] [address], [place] [address] Mar, [facility] [address] [id number] [address] [place] [address], [place] [address] Mar, [facility] [address] [id number] [address] [place] [address], [place] [address] Mar, [facility] [address] [id number] [address] [place] [address], [place] [address] Mar, [facility] [address] [id number] [address] [place] [address], [place] [address] Mar, [facility] [address] [id number] [address] [place] [address], [place] [address] Mar, [facility] [address] [id number] [address] [place] [address], [place] [address] Feb, [facility] [address] [id number] [address] [place] [address], [place] [address] Feb, [facility] [address] [id number] [address] [place] [address], [place] [address] Jan, [facility] [address] [id number] [address] [place] [address], [place] [address] Jan, [facility] [address] [id number] [address] [place] [address], [place] [address] Jan, [facility] [address] [id number] [address] [place] [address], [place] [address] Jan, [facility] [address] [id number] [address] [place] [address], [place] [address] December, [facility] [address] [id number] [address] [place] [address], [place] [address] December, [facility] [address] [id number] [address] [place] [address], [place] [address] December, [facility] [address] [id number] [address] [place] [address], [place] [address] December, [facility] [address] [id number] [address] [place] [address], [place] [address] December, [facility] [address] [id number] [address] [place] [address], [place] [address] December, [facility] [address] [id number] [address] [place] [address], [place] [address] December, [facility] [address] [id number] [facility] [place] [address] December, [facility] [address] [id number] [address] [place] [address], [place] [address] December, [facility] [address] [id number] [address] [place] [address], [place] [address] Nov, [facility] [address] [id number] [address] [place] [address], [place] [address] Nov, [facility] [address] [id number] [address] [place] [address], [place] [address] Nov, [facility] [address] [id number] [address] [place] [address], [place] [address] Nov, [facility] [address] [id number] [address] [place] [address], [place] [address] Nov, [facility] [address] [id number] [address] [place] [address], [place] [address] Nov, [facility] [address] [id number] [address] [place] [address], [place] [address] Nov, [facility] [address] [id number] [address] [place] [address], [place] [address] Nov, [facility] [address] [id number] [address] [place] [address], [place] [address] Nov, [facility] [address] [id number] [address] [place] [address], [place] [address] Nov, [facility] [address] [id number] [address] [place] [address], [place] [address] Oct, [facility] [address] [id number] [address] [place] [address], [place] [address] Oct, [facility] [address] [id number] [address] [place] [address], [place] [address] Sep, [facility] [address] [id number] [address] [place] [address] [address] Sep, [facility] [address] [id number] [address] [place] [address], [place] [address] Aug, [facility] [address] [id number] [address] [place] [address], [place] [address] Aug, [facility] [address] [id number] [address] [place] [address], [place] [address] Aug, [facility] [address] [id number] [address] [place] [address], [place] [address] Aug, [facility] [address] [id number] [address] [place] [address], [place] [address] Jul, [facility] [address] [id number] [address] [place] [address], [place] [address] Jul, [facility] [address] [id number] [address] [place] [address], [place] [address] Jul, [facility] [address] [id number] [address] [place] [address], [place] [address] Jul, [facility] [address] [id number] [address] [place] [address], [place] [address] Jun, [facility] [address] [id number] [address] [place] [address], [place] [address] Jun, [facility] [address] [id number] [address] [place] [address], [place] [address] May, [facility] [address] [id number] [address] [place] [address] May, [facility] [address] [id number] [address] [place] [address], [place] [address] May, [facility] [address] [id number] [address] [place] [address], [place] [address] May, [facility] [address] [id number] [address] [place] [address], [place] [address] May, [facility] [address] [id number] [address] [place] [address], [place] [address] 09 May, 2013 [facility] [address] [id number] [address] [place] [address], [place] [address] 30 Apr, 2013 [facility] [address] [id number] [address] [place] [address], [place] [address] 23 Apr, 2013 [facility] [address] [id number] [address] [place] [address], [place] [address] 03 Apr, 2013 [facility] [address] [id number] [address] [place] [address], [place] [address] Feb, [facility] [address] [id number] [address] [place] [address], [place] [address] 27 Jan, 2013 [facility] [address] [id number] [address] [place] [address], [place] [address] 18 Jan, 2013 [facility] [address] [id number] [address] [place] [address], [place] [address] Jan, [facility] [address] [id number] [address] [place] [address], [place] [address] 14 Jan, 2013 [facility] [address] [id number] [address] [place] [address], [place] [address] December, [facility] [address] [id number] [address] [place] [address], [place] [address] December, [facility] [address] [id number] [address] [place] [address], [place] [address] 24 Nov, 2012 [facility] [address] [id number] [address] [place] [address], [place] [address] Nov, [facility] [address] [id number] [address] [place] [address], [place] [address] Nov, [facility] [address] [id number] [address] [place] [address], [place] [address] Nov, [facility] [address] [id number] [address] [place] [address], [place] [address] 08 Nov, 2012 [facility] [address] [id number] [address] [place] [address], [place] [address] 08 Nov, 2012 [facility] [address] [id number] [address] [place] [address], [place] [address] 03 Nov, 2012 [facility] [address] [id number] [address] [place] [address], [place] [address] 27 Oct, 2012 [facility] [address] [id number] [address] [place] [address], [place] [address] 18 Oct, 2012 [facility] [address] [id number] [address] [place] [address], [place] [address] 14 Oct, 2012 [facility] [address] [id number] [address] [place] [address], [place] [address] 13 Oct, 2012 [facility] [address] [id number] [address] [place] [address], [place] [address] 12 Oct, 2012 [facility] [address] [id number] [address] [place] [address], [place] [address] 11 Oct, 2012 [facility] [address] [id number] [address] [place] [address], [place] [address] 08 Oct, 2012 [facility] [address] [id number] [address] [place] [address], [place] [address] 20 Sep, 2012 [facility] [address] [id number] [address] [place] [address], [place] [address] Sep, [facility] [address] [id number] [address] [place] [address], [place] [address] Aug, [facility] [address] [id number] [address] [place] [address], [place] [address] Aug, [facility] [address] [id number] [address] [place] [address], [place] [address] Jul, [facility] [address] [id number] [address] [place] [address], [place] [address] Jul, [facility] [address] [id number] [address] [place] [id number] Jul, [facility] [address] [id number] [address] [place] [address] Jul, [facility] [address] [id number] [address] [place] [address] Jul, [facility] [address] [id number] [address] [place] [address] Jul, [facility] [address] [id number] [address] [place] [address] Jul, [facility] [address] [id number] [address] [place] [address] Jul, [facility] [address] [facility] [id number] [address] [place] [id number] Jun, [facility] [address] [facility] [id number] [address] [place] [address] Jun, IMMUNIZATIONS No Known Immunizations SOCIAL HISTORY Never Assessed REASON FOR VISIT Controlled Med Refill PLAN OF CARE Activity Details Pending Test PDM - 06 PANEL (PROFILE 3) VITAL SIGNS MEDICATIONS Medication Instructions Dosage Frequency Start Date End Date Duration S tatus Hydrocodone-Acetaminophen 5-325 MG Orally 3 times a day prn must last 4 weeks 1 Tablet Nov, Active RESULTS No Results PROCEDURES Procedure Date Ordered Result Body Site DRUG TEST PRSMV CHEM ANLYZR November 15, 2017 INSTRUCTIONS MEDICATIONS ADMINISTERED No Known Medications [...]
--- OUTSIDE RECORDS SUMMARY | 2020-02-11 03:25 | XMS REPORT ---
Author Author АНДРЕЙ Madelineshawn LEONG [facility] Address [address] [place] [address] Care Team Providers Care Mesh Man Name Role Phone KWESIKennedy DANG Unavailable PROBLEMS Type Condition ICD9-CM Code HKE30-RM Code Onset Dates Condition S tatus SNOMED Code Problem Chronic pain G89.29 Active 1066123 1 Problem Pre-diabetes R73.09 Active 8380752 02 Problem Essential hypertension I10 Active 61739042 Problem BMI 45.0-49.9, adult Z68.42 Active 687795212 Problem Numbness and tingling in hands R20.2 Active 264114855 Problem GERD (gastroesophageal reflux disease) K21.9 Active 079317125 Problem Stasis dermatitis of both legs I87.2 Active 90894943 Problem History of abnormal cervical Pap smear Z87.898 Active 060548741 ALLERGIES Substance Reaction Event Type Date Status PredniSONE hives Drug Allergy Oct, Active Meloxicam hives Drug Allergy Oct, Active Levaquin itching Drug Allergy Oct, Active Diflucan itching Drug Allergy Oct, Active ENCOUNTERS Encounter Location Date Diagnosis [place] [id number] [facility] [id number] [address] [place] [address] Feb, Chronic pain G89.29 [facility] [address] [facility] [id number] [address] [place] [address] Feb, Poison josep L23.7 [place] [address] [facility] [id number] [address] [place] [address] Jan, Chronic pain G89.29 [facility] [address] [facility] [id number] [address] [place] [address] December, Chronic pain G89.29 [place] [address] [facility] [id number] [address] [place] [address] Nov, Long-term use of high-risk m edication Z79.899 [place] [address] [place] [id number] [place] [address] Nov, Chronic pain G89.29 [facility] [address] [place] [id number] [address] [place] [address] Oct, Chronic pain G89.29 ; Pre-di abetes R73.09 ; Long-term use of high- risk medication Z79.899 ; Allergic rhinitis, unspecified seasonality, unspecified trigger J30.9 ; BMI 45.0-49.9, adult Z68.42 and Essential hypertension I10 [place] [address] [address] Oct, Chronic pain G89.29 [place] [address] [address] Sep, Chronic pain G89.29 [place] [address] [address] Aug, Chronic pain G89.29 [place] [address] [address] Jul, [place] [address] [address] Jul, [place] [address] [address] Jun, Chronic pain G89.29 ; BMI 45 .0-49.9, adult Z68.42 ; Pre-diabetes R73.09 ; Essential hypertension I10 ; GERD (gastroesophageal reflux disease) K21.9 ; Yeast dermatitis B37.2 ; Dysuria R30.0 ; Acute non-recurrent maxillary sinusitis J01.00 and Acute cystitis with hematuria N30.01 [place] [address] [place] [id number] [address] [place] [address] Jun, Chronic pain G89.29 [place] [id number] [place] [address] Jun, Acute non-recurrent maxillar y sinusitis J01.00 and BMI 45.0-49.9, adult Z68.42 [place] [address] [place] [id number] [address] [place] [address] May, [place] [address] [address] May, Chronic pain G89.29 [place] [address] [address] May, [place] [address] [address] Apr, Chronic pain G89.29 [place] [address] [address] Mar, [place] [address] [address] Mar, Essential hypertension I10 a nd Pre-diabetes R73.[address] [address] Mar, Chronic pain G89.29 ; Essent ial hypertension I10 ; Depressive disorder, not elsewhere classified F32.9 ; GERD (gastroesophageal reflux disease) K21.9 ; Pre-diabetes R73.09 ; Stasis dermatitis of both legs I87.2 and Acute non-recurrent maxillary sinusitis J01.00 [place] [address] [place] [id number] [address] [place] [address] Mar, Chronic pain G89.[address] [address] Mar, Achilles tendinitis of right lower extremity M76.61 and Tinea corporis B35.4 [place] [address] [place] [id number] [address] [place] [address] Feb, Yeast dermatitis B37.2 [place] [address] [id number] [address] [place] [address] 14 Feb, 2017 Candidal intertrigo B37.2 an d Acute right ankle pain M25.571 [place] [address] [facility] [id number] [address] [place] [address] 12 Feb, 2017 Chronic pain G89.29 [place] [address] [facility] [id number] [address] [place] [address] Jan, [place] [address] [facility] [id number] [address] [place] [address] Jan, Chronic pain G89.29 [place] [address] [facility] [id number] [address] [place] [address] December, Chronic pain G89.29 ; Essent ial hypertension I10 ; Depressive disorder, not elsewhere classified F32.9 ; GERD (gastroesophageal reflux disease) K21.9 ; Pre-diabetes R73.09 ; Screening breast examination Z12.39 ; Stasis dermatitis of both legs I87.2 and Yeast dermatitis B37.2 [place] [address] [facility] [id number] [address] [place] [address] Nov, Chronic pain G89.29 [place] [address] [facility] [id number] [address] [place] [address] Nov, Cellulitis of left lower ext remity L03.116 [place] [address] [facility] [id number] [address] [place] [address] Nov, Cellulitis of left lower ext remity L03.116 [place] [address] [facility] [id number] [address] [place] [address] Oct, Yeast dermatitis B37.2 [place] [address] [facility] [id number] [address] [place] [address] Oct, Chronic pain G89.29 [place] [address] [facility] [id number] [address] [place] [address] Sep, Chronic pain G89.29 ; Essent ial hypertension I10 ; Depressive disorder, not elsewhere classified F32.9 and GERD (gastroesophageal reflux disease) K21.9 [facility] [address] [address] Aug, Chronic pain G89.29 [facility] [address] [address] Aug, Cough R05 ; Rash R21 and Vinay h and nonspecific skin eruption R21 [place] [address] [address] Jul, Chronic pain G89.[address] [address] Jun, Chronic pain G89.29 ; Bronch itis J40 ; Essential hypertension I10 ; Depressive disorder, not elsewhere classified F32.9 ; GERD (gastroesophageal reflux disease) K21.9 and History of long-term use of multiple prescription drugs Z92.29 [place] [address] [address] Jun, Bronchitis J40 ; Chills R68. 83 and Sore throat J02.9 [place] [address] [address] May, [facility] [address] [address] Apr, [facility] [address] [address] Apr, Acute mucoid otitis media of both ears H65.113 [place] [address] [address] 07 Apr, 2016 Yeast dermatitis B37.2 and H ematuria R31.9 [facility] [address] [address] Mar, [place] [address] [place] [address] Mar, [place] [address] [place] [id number] [place] [address] Feb, Left anterior knee pain M25. 562 [place] [address] [address] Feb, Chronic pain G89.29 ; Essent ial hypertension I10 ; Depressive disorder, not elsewhere classified F32.9 ; GERD (gastroesophageal reflux disease) K21.9 and History of long-term use of multiple prescription drugs Z92.29 [place] [address] [address] Jan, [place] [address] [address] Jan, Well woman exam Z01.419 ; BM I 45.0-49.9, adult Z68.42 ; Family history of diabetes mellitus Z83.3 and Chronic pain G89.29 [place] [address] [address] December, Chronic pain G89.29 ; Essent ial hypertension I10 ; Depressive disorder, not elsewhere classified F32.9 ; GERD (gastroesophageal reflux disease) K21.9 ; 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 ; History of long-term use of multiple prescription drugs Z92.29 and Obesity E66.9 [place] [address] [address] Oct, [place] [address] [address] Oct, Well woman exam Z01.419 ; BM [...] smear Z12.4 and No natural teeth K00.0 [place] [address] [address] Oct, [place] [address] [place] [id number] [place] [address] Sep, Chronic pain G89.29 ; Essent ial hypertension I10 ; GERD (gastroesophageal reflux disease) K21.9 ; 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 ; Skin infection L08.9 and History of long-term use of multiple prescription drugs Z92.29 [place] [address] [address] Aug, [place] [address] [address] Jul, [place] [address] [address] Jul, [place] [address] [address] Jul, Upper respiratory infection J06.[address] [address] Jul, Depressive disorder, not els ewhere classified F32.[address] [address] Jul, Chronic pain 338.29 [place] [address] [place] [id number] [address] [place] [address] Jul, Chronic pain G89.29 [place] [address] [place] [id number] [address] [place] [address] Jun, Poison josep L23.7 [place] [address] [place] [id number] [address] [place] [address] Jun, Allergic contact dermatitis due to plants, except food L23.7 [place] [address] [place] [id number] [address] [place] [address] Jun, Essential hypertension I10 ; Chronic pain G89.29 ; GERD (gastroesophageal reflux disease) K21.9 and Numbness and tingling in hands R20.2 [place] [address] [address] May, [place] [address] [address] Apr, [place] [address] [address] Mar, [place] [address] [address] Feb, Abdominal pain, left lateral 789.09 and Constipation 564.00 [place] [address] [address] Feb, Depressive disorder, not els ewhere classified 311 and No condition on Groom II V71.09 [place] [address] [address] Feb, Spider bite 989.5 and Depres homar [address] [address] Feb, [place] [address] [address] Feb, Chronic pain 338.29 ; Arthro zonia 716.90 and GERD (gastroesophageal reflux disease) 530.81 [place] [address] [address] Jan, Insect bites 919.4 [place] [address] [address] Jan, [place] [address] [address] December, Skin infection, bacterial 68 6.9 ; Conjunctivitis 372.30 and Insect bites 919.4 [place] [address] [id number] [address] [place] [address] December, Chronic pain 338.29 ; Arthro zonia 716.90 ; Skin infection, bacterial 686.9 and Conjunctivitis 372.30 [facility] [address] [id number] [address] [place] [address] December, [facility] [address] [id number] [address] [place] [address] Nov, [facility] [address] [id number] [address] [place] [address] Nov, [facility] [address] [id number] [address] [place] [address] Oct, [facility] [address] [id number] [address] [place] [address] Oct, [facility] [address] [id number] [address] [place] [address] Sep, [facility] [address] [id number] [address] [place] [address] Sep, [facility] [address] [id number] [address] [place] [address] Aug, [facility] [address] [id number] [address] [place] [address] Aug, [facility] [address] [id number] [address] [place] [address] Aug, [facility] [address] [id number] [address] [place] [address] Aug, [facility] [address] [id number] [address] [place] [address] Jul, [facility] [address] [id number] [address] [place] [address] Jul, [facility] [address] [id number] [address] [place] [address] Jul, [facility] [address] [id number] [address] [place] [address], [place] [id number] Jul, [facility] [address] [id number] [address] [place] [address], [place] [id number] Jul, [facility] [address] [id number] [address] [place] [address], [place] [id number] Jul, [facility] [address] [id number] [address] [place] [address], [place] [id number] Jul, [facility] [address] [id number] [address] [place] [address], [place] [id number] Jul, [facility] [address] [id number] [address] [place] [address], [place] [id number] Jul, [facility] [address] [id number] [address] [place] [address], [place] [id number] Jun, [facility] [address] [id number] [address] [place] [address], [place] [id number] Jun, [facility] [address] [id number] [address] [place] [address], [place] [id number] Jun, [facility] [address] [id number] [address] [place] [address], [place] [id number] Jun, [facility] [address] [id number] [address] [place] [address], [place] [id number] Jun, [facility] [address] [id number] [address] [place] [address] Jun, [facility] [address] [id number] [address] [place] [address], [place] [id number] Jun, [facility] [address] [id number] [address] [place] [address], [place] [id number] Jun, [facility] [address] [id number] [address] [place] [address], [place] [id number] May, [facility] [address] [id number] [address] [place] [address], [place] [id number] 17 May, 2014 [facility] [address] [id number] [address] [place] [address], [place] [id number] 16 May, 2014 [facility] [address] [id number] [address] [place] [address], [place] [id number] May, [facility] [address] [id number] [address] [place] [address], [place] [id number] May, [facility] [address] [id number] [address] [place] [address], [place] [id number] 26 Apr, 2013 [facility] [address] [id number] [address] [place] [address], [place] [id number] Apr, [facility] [address] [id number] [address] [place] [address], [place] [id number] Apr, [facility] [address] [id number] [address] [place] [address], [place] [id number] Apr, [facility] [address] [id number] [address] [place] [address], [place] [id number] 18 Apr, 2013 [facility] [address] [id number] [address] [place] [address], [place] [id number] 18 Apr, 2014 [facility] [address] [id number] [address] [place] [address], [place] [id number] 18 Apr, 2014 [facility] [address] [id number] [address] [place] [address], [place] [id number] 18 Apr, 2013 [facility] [address] [id number] [address] [place] [address], [place] [id number] Apr, 2013 [facility] [address] [id number] [address] [place] [address], [place] [id number] Apr, [facility] [address] [id number] [address] [place] [address], [place] [id number] Mar, [facility] [address] [id number] [address] [place] [address], [place] [id number] Mar, [facility] [address] [id number] [address] [place] [address], [place] [id number] Mar, [facility] [address] [id number] [address] [place] [address], [place] [id number] Mar, [facility] [address] [id number] [address] [place] [address], [place] [id number] Mar, [facility] [address] [id number] [address] [place] [address], [place] [id number] Mar, [facility] [address] [id number] [address] [place] [address], [place] [id number] Feb, [facility] [address] [id number] [address] [place] [address], [place] [id number] Feb, [facility] [address] [id number] [address] [place] [address], [place] [id number] Jan, [facility] [address] [id number] [address] [place] [address], [place] [id number] Jan, [facility] [address] [id number] [address] [place] [address], [place] [id number] Jan, [facility] [address] [id number] [address] [place] [address], [place] [id number] Jan, [facility] [address] [id number] [address] [place] [address], [place] [id number] December, [facility] [address] [id number] [address] [place] [address], [place] [id number] December, [facility] [address] [id number] [address] [place] [address], [place] [id number] December, [facility] [address] [id number] [address] [place] [address], [place] [id number] December, [facility] [address] [id number] [address] [place] [address], [place] [id number] December, [facility] [address] [id number] [address] [place] [address], [place] [id number] December, [facility] [address] [id number] [address] [place] [address], [place] [id number] December, [facility] [address] [id number] [address] [place] [address], [place] [id number] December, [facility] [address] [id number] [address] [place] [address], [place] [id number] December, [facility] [address] [id number] [address] [place] [address], [place] [id number] Nov, [facility] [address] [id number] [address] [place] [address], [place] [id number] Nov, [facility] [address] [id number] [address] [place] [address], [place] [id number] Nov, [facility] [address] [id number] [address] [place] [address], [place] [id number] Nov, [facility] [address] [id number] [address] [place] [address], [place] [id number] Nov, [facility] [address] [id number] [address] [place] [address], [place] [id number] Nov, [facility] [address] [id number] [address] [place] [address], [place] [id number] Nov, [facility] [address] [id number] [address] [place] [address], [place] [id number] Nov, [facility] [address] [id number] [address] [place] [address], [place] [id number] Nov, [facility] [address] [id number] [address] [place] [address], [place] [id number] Nov, [facility] [address] [id number] [address] [place] [address], [place] [id number] Oct, [facility] [address] [id number] [address] [place] [address], [place] [id number] Oct, [facility] [address] [id number] [address] [place] [address], [place] [id number] Sep, [facility] [address] [id number] [address] [place] [address], [place] [id number] Sep, [facility] [address] [id number] [address] [place] [address], [place] [id number] Aug, [facility] [address] [id number] [address] [place] [address], [place] [id number] Aug, [facility] [address] [id number] [address] [place] [address], [place] [id number] Aug, [facility] [address] [id number] [address] [place] [address], [place] [id number] Aug, [facility] [address] [id number] [address] [place] [address], [place] [id number] Jul, [facility] [address] [id number] [address] [place] [address], [place] [id number] Jul, [facility] [address] [id number] [address] [place] [address], [place] [id number] Jul, [facility] [address] [id number] [address] [place] [address], [place] [id number] Jul, [facility] [address] [id number] [address] [place] [address], [place] [id number] Jun, [facility] [address] [id number] [address] [place] [address], [place] [id number] Jun, [facility] [address] [id number] [address] [place] [address], [place] [id number] May, [facility] [address] [id number] [address] [place] [address], [place] [id number] May, [facility] [address] [id number] [address] [place] [address], [place] [id number] May, [facility] [address] [id number] [address] [place] [address], [place] [id number] May, [facility] [address] [id number] [address] [place] [address], [place] [id number] May, [facility] [address] [id number] [address] [place] [address], [place] [id number] May, [facility] [address] [id number] [address] [place] [address], [place] [id number] Apr, [facility] [address] [id number] [address] [place] [address], [place] [id number] Apr, [facility] [address] [id number] [address] [place] [address], [place] [id number] Apr, [facility] [address] [id number] [address] [place] [address], [place] [id number] Feb, [facility] [address] [id number] [address] [place] [address], [place] [id number] Jan, [facility] [address] [id number] [address] [place] [address], [place] [id number] Jan, [facility] [address] [id number] [address] [place] [address], [place] [id number] Jan, [facility] [address] [id number] [address] [place] [address], [place] [id number] Jan, [facility] [address] [id number] [address] [place] [address], [place] [id number] December, [facility] [address] [id number] [address] [place] [id number] December, [facility] [address] [id number] [address] [place] [address], [place] [id number] Nov, [facility] [address] [id number] [address] [place] [address], [place] [id number] Nov, [facility] [address] [id number] [address] [place] [address], [place] [id number] Nov, [facility] [address] [id number] [address] [place] [address], [place] [id number] 11 Nov, 2012 [facility] [address] [id number] [address] [place] [address], [place] [id number] 08 Nov, 2012 [facility] [address] [id number] [address] [place] [address], [place] [id number] 08 Nov, 2012 [facility] [address] [id number] [address] [place] [address], [place] [id number] 03 Nov, 2012 [facility] [address] [id number] [address] [place] [address], [place] [id number] 27 Oct, 2012 [facility] [address] [id number] [address] [place] [address], [place] [id number] 18 Oct, 2012 [facility] [address] [id number] [address] [place] [address], [place] [id number] 14 Oct, 2012 [facility] [address] [id number] [address] [place] [address], [place] [id number] 13 Oct, 2012 [facility] [address] [id number] [address] [place] [address], [place] [id number] 12 Oct, 2012 [facility] [address] [id number] [address] [place] [address], [place] [id number] Oct, [facility] [address] [id number] [address] [place] [address], [place] [id number] 08 Oct, 2012 [facility] [address] [id number] [address] [place] [address], [place] [id number] 20 Sep, 2012 [facility] [address] [id number] [address] [place] [address], [place] [id number] Sep, [facility] [address] [id number] [address] [place] [address], [place] [id number] Aug, [facility] [address] [id number] [address] [place] [address], [place] [id number] Aug, [facility] [address] [id number] [address] [place] [address], [place] [id number] Jul, [facility] [address] [id number] [address] [place] [id number] Jul, [facility] [address] [id number] [address] [place] [id number] Jul, [facility] [address] [id number] [address] [place] [id number] Jul, [facility] [address] [id number] [address] [place] [phone] Jul, [facility] [address] [id number] [address] [place] [id number] Jul, [facility] [address] [id number] [address] [place] [id number] Jul, [facility] [address] [id number] [address] [place] [id number] Jul, [facility] [address] [id number] [address] [place] [id number] Jun, [facility] [address] [id number] [address] [place] [id number] Jun, IMMUNIZATIONS No Known Immunizations SOCIAL HISTORY Never Assessed REASON FOR VISIT Pain management (chronic) - COLTEN [facility] PLAN OF CARE Activity Details Follow Up 3 Months Reason:Pain VITAL SIGNS Height 62 in 2017-10-25 Weight 260 lbs 2017-10-25 Temperature 97.8 degrees Fahrenheit 2017-10-25 Heart Rate 88 bpm 2017-10-25 Respiratory Rate 20 2017-10-25 BMI 47.55 kg/m2 2017-10-25 Blood pressure systolic 130 mmHg 2017-10-25 Blood pressure diastolic 80 mmHg 2017-10-25 MEDICATIONS Medication Instructions Dosage Frequency Start Date End Date Duration S libby Hydrocodone-Acetaminophen 5-325 MG Orally 3 times a day prn must last 4 weeks 1 Tablet Oct, Active Hydrochlorothiazide 25 MG Orally Once a day 1 tablet 24h Active Cetirizine HCl 10 mg Orally Once a day 1 tablet 24h Oct, 8 Nov, 30 day(s) Active Albuterol Sulfate 90 mcg/actuation 2 puf fs by Inhalation route every 4-6 hours as needed PRN cough or wheezing Active Indomethacin 50 mg Orally 3 times a day 1 capsule with food or milk 8h Active Omeprazole 20 MG TAKE ONE CAPSULE BY MOUTH ONCE DAILY BEFORE A M EAL 30 Active [id number] Ethyl Esters 1 GM Orally Once a day 1 capsule 24h Active RESULTS Name Result Date Reference Range A1C (IN HOUSE) 2017-10-25 A1C IN HOUSE 5.9 4.3 - 5.6 % Previous A1c 5.9 Lot [id number] Exp date 06/2019 PROCEDURES Procedure Date Ordered Result Body Site GLYCATED HEMOGLOBIN TEST October 25, 2017 INSTRUCTIONS MEDICATIONS ADMINISTERED No Known Medications [...]
--- OUTSIDE RECORDS SUMMARY | 2020-02-11 03:25 | XMS REPORT ---
Author Author АНДРЕЙ Madelineshawn LEONG Organization [facility] [place] Address [address] [place] [address] Care Team Providers Care Project Management It Specialist Name Role Phone АНДРЕЙ DANG Unavailable PROBLEMS Type Condition ICD9-CM Code FOC86-LC Code Onset Dates Condition S tatus SNOMED Code Problem Chronic pain G89.29 Active 8968579 1 Problem Pre-diabetes R73.09 Active 3191894 02 Problem Essential hypertension I10 Active 05410205 Problem BMI 45.0-49.9, adult Z68.42 Active 367564832 Problem Numbness and tingling in hands R20.2 Active 455542562 Problem GERD (gastroesophageal reflux disease) K21.9 Active 698763718 Problem Stasis dermatitis of both legs I87.2 Active 45075475 Problem History of abnormal cervical Pap smear Z87.898 Active 043924443 ALLERGIES No Information ENCOUNTERS Encounter Location Date Diagnosis [place] [address] [facility] [id number] [address] [place] [address] Feb, Chronic pain G89.29 [place] [address] [place] [id number] [address] [place] [address] Feb, Poison josep L23.7 [place] [address] [facility] [id number] [address] [place] [address] Jan, Chronic pain G89.29 [place] [address] [facility] [id number] [address] [place] [address] December, Chronic pain G89.29 [place] [address] [facility] [id number] [address] [place] [address] Nov, Long-term use of high-risk m edication Z79.899 [place] [address] [place] [id number] [address] [place] [address] Nov, Chronic pain G89.29 [place] [id number] [place] [address] Oct, Chronic pain G89.29 ; Pre-di abetes R73.09 ; Long-term use of high- risk medication Z79.899 ; Allergic rhinitis, unspecified seasonality, unspecified trigger J30.9 ; BMI 45.0-49.9, adult Z68.42 and Essential hypertension I10 [place] [address] [address] Oct, Chronic pain G89.29 [place] [address] [address] Sep, Chronic pain G89.29 [place] [address] [address] Aug, Chronic pain G89.29 [place] [address] [address] Jul, [place] [address] [address] Jul, [place] [address] [address] Jun, Chronic pain G89.29 ; BMI 45 .0-49.9, adult Z68.42 ; Pre-diabetes R73.09 ; Essential hypertension I10 ; GERD (gastroesophageal reflux disease) K21.9 ; Yeast dermatitis B37.2 ; Dysuria R30.0 ; Acute non-recurrent maxillary sinusitis J01.00 and Acute cystitis with hematuria N30.01 [place] [address] [address] 13 Jun, 2017 Chronic pain G89.29 [place] [address] [address] 02 Jun, 2017 Acute non-recurrent maxillar y sinusitis J01.00 and BMI 45.0-49.9, adult Z68.42 [place] [address] [address] May, [place] [address] [address] May, Chronic pain G89.29 [place] [address] [address] May, [place] [address] [address] Apr, Chronic pain G89.29 [place] [address] [address] Mar, [place] [address] [address] Mar, Essential hypertension I10 a nd Pre-diabetes R73.09 [place] [address] [address] Mar, Chronic pain G89.29 ; Essent ial hypertension I10 ; Depressive disorder, not elsewhere classified F32.9 ; GERD (gastroesophageal reflux disease) K21.9 ; Pre-diabetes R73.09 ; Stasis dermatitis of both legs I87.2 and Acute non-recurrent maxillary sinusitis J01.00 [place] [address] [address] Mar, Chronic pain G89.29 [place] [address] [address] Mar, Achilles tendinitis of right lower extremity M76.61 and Tinea corporis B35.4 [place] [address] [address] Feb, Yeast dermatitis B37.2 [place] [address] [address] Feb, Candidal intertrigo B37.2 an d Acute right ankle pain M25.571 [facility] [place] [address] [facility] [id number] [address] [place] [address] Feb, Chronic pain G89.29 [place] [address] [facility] [id number] [address] [place] [address] Jan, [place] [address] [facility] [id number] [address] [place] [address] Jan, Chronic pain G89.29 [place] [address] [facility] [id number] [address] [place] [address] December, Chronic pain G89.29 ; Essent ial hypertension I10 ; Depressive disorder, not elsewhere classified F32.9 ; GERD (gastroesophageal reflux disease) K21.9 ; Pre-diabetes R73.09 ; Screening breast examination Z12.39 ; Stasis dermatitis of both legs I87.2 and Yeast dermatitis B37.2 [place] [address] [facility] [id number] [address] [place] [address] Nov, Chronic pain G89.29 [place] [address] [facility] [id number] [address] [place] [address] Nov, Cellulitis of left lower ext remity L03.116 [place] [address] [facility] [id number] [address] [place] [address] Nov, Cellulitis of left lower ext remity L03.116 [place] [address] [facility] [id number] [address] [place] [address] Oct, Yeast dermatitis B37.2 [place] [address] [facility] [id number] [address] [place] [address] Oct, Chronic pain G89.29 [place] [address] [facility] [id number] [address] [place] [address] Sep, Chronic pain G89.29 ; Essent ial hypertension I10 ; Depressive disorder, not elsewhere classified F32.9 and GERD (gastroesophageal reflux disease) K21.9 [place] [address] [address] Aug, Chronic pain G89.29 [facility] [place] [address] [address] Aug, Cough R05 ; Rash R21 and Vinay h and nonspecific skin eruption R21 [place] [address] [address] Jul, Chronic pain G89.29 [place] [address] [address] Jun, Chronic pain G89.29 ; Bronch itis J40 ; Essential hypertension I10 ; Depressive disorder, not elsewhere classified F32.9 ; GERD (gastroesophageal reflux disease) K21.9 and History of long-term use of multiple prescription drugs Z92.29 [place] [address] [address] Jun, Bronchitis J40 ; Chills R68. 83 and Sore throat J02.9 [place] [address] [address] May, [place] [address] [address] Apr, [facility] [address] [address] Apr, Acute mucoid otitis media of both ears H65.113 [place] [address] [address] Apr, Yeast dermatitis B37.2 and H ematuria R31.9 [place] [address] [address] Mar, [place] [address] [address] Mar, [place] [address] [address] Feb, Left anterior knee pain M25. 562 [place] [address] [address] Feb, Chronic pain G89.29 ; Essent ial hypertension I10 ; Depressive disorder, not elsewhere classified F32.9 ; GERD (gastroesophageal reflux disease) K21.9 and History of long-term use of multiple prescription drugs Z92.29 [place] [address] [address] Jan, [place] [address] [address] Jan, Well woman exam Z01.419 ; BM I 45.0-49.9, adult Z68.42 ; Family history of diabetes mellitus Z83.3 and Chronic pain G89.29 [place] [address] [address] December, Chronic pain G89.29 ; Essent ial hypertension I10 ; Depressive disorder, not elsewhere classified F32.9 ; GERD (gastroesophageal reflux disease) K21.9 ; 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 ; History of long-term use of multiple prescription drugs Z92.29 and Obesity E66.9 [place] [address] [address] Oct, [place] [address] [address] Oct, Well woman exam Z01.419 ; BM [...] smear Z12.4 and No natural teeth K00.[address] [address] Oct, [place] [id number] [address] [place] [address] Sep, Chronic pain G89.29 ; Essent ial hypertension I10 ; GERD (gastroesophageal reflux disease) K21.9 ; 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 ; Skin infection L08.9 and History of long-term use of multiple prescription drugs Z92.29 [place] [address] [place] [id number] [place] [address] Aug, [place] [address] [place] [id number] [place] [address] Jul, [place] [address] [address] Jul, [place] [address] [address] Jul, Upper respiratory infection J06.9 [place] [address] [address] Jul, Depressive disorder, not els ewhere classified F32.9 [place] [address] [address] Jul, Chronic pain 338.29 [place] [address] [place] [id number] [place] [address] Jul, Chronic pain G89.29 [place] [address] [place] [id number] [address] [place] [address] 16 Jun, 2015 Poison josep L23.7 [place] [address] [place] [id number] [address] [place] [address] Jun, Allergic contact dermatitis due to plants, except food L23.7 [place] [address] [place] [id number] [address] [place] [address] 03 Jun, 2015 Essential hypertension I10 ; Chronic pain G89.29 ; GERD (gastroesophageal reflux disease) K21.9 and Numbness and tingling in hands R20.2 [facility] [place] [address] [place] [id number] [address] [place] [address] May, [facility] [place] [address] [address] Apr, [facility] [place] [address] [place] [id number] [address] [place] [address] Mar, [facility] [place] [address] [address] Feb, Abdominal pain, left lateral 789.09 and Constipation 564.00 [place] [address] [address] Feb, Depressive disorder, not els ewhere classified 311 and No condition on [place] II V71.09 [place] [address] [address] Feb, Spider bite 989.5 and Depres homar 311 [place] [address] [address] Feb, [place] [address] [address] Feb, Chronic pain 338.29 ; Arthro zonia 716.90 and GERD (gastroesophageal reflux disease) 530.81 [place] [address] [place] [id number] [address] [place] [address] Jan, Insect bites 919.4 [place] [address] [place] [id number] [address] [place] [address] Jan, [place] [address] [place] [id number] [place] [address] December, Skin infection, bacterial 68 6.9 ; Conjunctivitis 372.30 and Insect bites 919.4 [place] [address] [place] [id number] [address] [place] [address] December, Chronic pain 338.29 ; Arthro zonia 716.90 ; Skin infection, bacterial 686.9 and Conjunctivitis 372.30 [facility] [address] [id number] [address] [place] [address], [place] [address] December, [facility] [address] [id number] [address] [place] [address] Nov, [facility] [address] [id number] [address] [place] [address] Nov, [facility] [address] [id number] [address] [place] [address] Oct, [facility] [address] [id number] [address] [place] [address], [place] [address] Oct, [facility] [address] [id number] [address] [place] [address] Sep, [facility] [address] [id number] [address] [place] [address] Sep, [facility] [address] [id number] [address] [place] [address] Aug, [facility] [address] [id number] [address] [place] [address] Aug, [facility] [address] [id number] [address] [place] [address] Aug, [facility] [address] [id number] [address] [place] [address] Aug, [facility] [address] [id number] [address] [place] [address] Jul, [facility] [address] [id number] [address] [place] [address] Jul, [facility] [address] [id number] [address] [place] [address] Jul, [facility] [address] [id number] [address] [place] [address] Jul, [facility] [address] [id number] [address] [place] [address], [place] [address] 15 Jul, 2014 [facility] [address] [id number] [address] [place] [address], [place] [address] 15 Jul, 2014 [facility] [address] [id number] [address] [place] [address], [place] [address] 15 Jul, 2014 [facility] [address] [id number] [address] [place] [address], [place] [address] Jul, [facility] [address] [id number] [address] [place] [address], [place] [address] Jul, [facility] [address] [id number] [address] [place] [address], [place] [address] Jun, [facility] [address] [id number] [address] [place] [address], [place] [address] Jun, [facility] [address] [id number] [address] [place] [address], [place] [address] Jun, [facility] [address] [id number] [address] [place] [address], [place] [address] Jun, [facility] [address] [id number] [address] [place] [address], [place] [address] Jun, [facility] [address] [id number] [address] [place] [address], [place] [address] Jun, [facility] [address] [id number] [address] [place] [address], [place] [address] Jun, [facility] [address] [id number] [address] [place] [address], [place] [address] Jun, [facility] [address] [id number] [address] [place] [address], [place] [address] May, [facility] [address] [id number] [address] [place] [address], [place] [address] May, [facility] [address] [id number] [address] [place] [address], [place] [address] May, [facility] [address] [id number] [address] [place] [address], [place] [address] May, [facility] [address] [id number] [address] [place] [address], [place] [address] May, [facility] [address] [id number] [address] [place] [address], [place] [address] Apr, [facility] [address] [id number] [address] [place] [address], [place] [address] Apr, 2013 [facility] [address] [id number] [address] [place] [address], [place] [address] Apr, [facility] [address] [id number] [address] [place] [address], [place] [address] Apr, [facility] [address] [id number] [address] [place] [address], [place] [address] Apr, [facility] [address] [id number] [address] [place] [address], [place] [address] Apr, [facility] [address] [id number] [address] [place] [address], [place] [address] Apr, [facility] [address] [id number] [address] [place] [address], [place] [address] Apr, [facility] [address] [id number] [address] [place] [address], [place] [address] Apr, [facility] [address] [id number] [address] [place] [address], [place] [address] Apr, [facility] [address] [id number] [address] [place] [address], [place] [address] Mar, [facility] [address] [id number] [address] [place] [address], [place] [address] Mar, [facility] [address] [id number] [address] [place] [address], [place] [address] Mar, [facility] [address] [id number] [address] [place] [address], [place] [address] Mar, [facility] [address] [id number] [address] [place] [address], [place] [address] Mar, [facility] [address] [id number] [address] [place] [address], [place] [address] Mar, [facility] [address] [id number] [address] [place] [address], [place] [address] Feb, [facility] [address] [id number] [address] [place] [address], [place] [address] Feb, [facility] [address] [id number] [address] [place] [address], [place] [address] Jan, [facility] [address] [id number] [address] [place] [address], [place] [address] Jan, [facility] [address] [id number] [address] [place] [address], [place] [address] Jan, [facility] [address] [id number] [address] [place] [address], [place] [address] Jan, [facility] [address] [id number] [address] [place] [address], [place] [address] December, [facility] [address] [id number] [address] [place] [address], [place] [address] December, [facility] [address] [id number] [address] [place] [address], [place] [address] December, [facility] [address] [id number] [address] [place] [address], [place] [address] December, [facility] [address] [id number] [address] [place] [address], [place] [address] December, [facility] [address] [id number] [address] [place] [address], [place] [address] December, [facility] [address] [id number] [address] [place] [address], [place] [address] December, [facility] [address] [id number] [facility] [place] [address] December, [facility] [address] [id number] [address] [place] [address], [place] [address] December, [facility] [address] [id number] [address] [place] [address], [place] [address] Nov, [facility] [address] [id number] [address] [place] [address], [place] [address] Nov, [facility] [address] [id number] [address] [place] [address], [place] [address] Nov, [facility] [address] [id number] [address] [place] [address], [place] [address] Nov, [facility] [address] [id number] [address] [place] [address], [place] [address] Nov, [facility] [address] [id number] [address] [place] [address], [place] [address] Nov, [facility] [address] [id number] [address] [place] [address], [place] [address] Nov, [facility] [address] [id number] [address] [place] [address], [place] [address] Nov, [facility] [address] [id number] [address] [place] [address], [place] [address] Nov, [facility] [address] [id number] [address] [place] [address], [place] [address] Nov, [facility] [address] [id number] [address] [place] [address], [place] [address] Oct, [facility] [address] [id number] [address] [place] [address], [place] [address] Oct, [facility] [address] [id number] [address] [place] [address], [place] [address] Sep, [facility] [address] [id number] [address] [place] [address] [address] Sep, [facility] [address] [id number] [address] [place] [address], [place] [address] Aug, [facility] [address] [id number] [address] [place] [address], [place] [address] Aug, [facility] [address] [id number] [address] [place] [address], [place] [address] Aug, [facility] [address] [id number] [address] [place] [address], [place] [address] Aug, [facility] [address] [id number] [address] [place] [address], [place] [address] Jul, [facility] [address] [id number] [address] [place] [address], [place] [address] Jul, [facility] [address] [id number] [address] [place] [address], [place] [address] Jul, [facility] [address] [id number] [address] [place] [address], [place] [address] Jul, [facility] [address] [id number] [address] [place] [address], [place] [address] Jun, [facility] [address] [id number] [address] [place] [address], [place] [address] Jun, [facility] [address] [id number] [address] [place] [address], [place] [address] May, [facility] [address] [id number] [address] [place] [id number] May, [facility] [address] [id number] [address] [place] [address], [place] [address] May, [facility] [address] [id number] [address] [place] [address], [place] [address] May, [facility] [address] [id number] [address] [place] [address], [place] [id number] May, [facility] [address] [id number] [address] [place] [address], [place] [address] 09 May, 2013 [facility] [address] [id number] [address] [place] [address], [place] [address] 30 Apr, 2013 [facility] [address] [id number] [address] [place] [address], [place] [address] 23 Apr, 2013 [facility] [address] [id number] [address] [place] [address], [place] [address] 03 Apr, 2013 [facility] [address] [id number] [address] [place] [address], [place] [address] Feb, [facility] [address] [id number] [address] [place] [address], [place] [address] 27 Jan, 2013 [facility] [address] [id number] [address] [place] [address], [place] [address] 18 Jan, 2013 [facility] [address] [id number] [address] [place] [address], [place] [address] Jan, [facility] [address] [id number] [address] [place] [address], [place] [id number] 14 Jan, 2013 [facility] [address] [id number] [address] [place] [address], [place] [address] December, [facility] [address] [id number] [address] [place] [address], [place] [address] December, [facility] [address] [id number] [address] [place] [address], [place] [id number] 24 Nov, 2012 [facility] [address] [id number] [address] [place] [address], [place] [id number] Nov, [facility] [address] [id number] [address] [place] [address], [place] [id number] Nov, [facility] [address] [id number] [address] [place] [address], [place] [id number] Nov, [facility] [address] [id number] [address] [place] [address], [place] [id number] 08 Nov, 2012 [facility] [address] [id number] [address] [place] [address], [place] [id number] 08 Nov, 2012 [facility] [address] [id number] [address] [place] [address], [place] [id number] 03 Nov, 2012 [facility] [address] [id number] [address] [place] [address], [place] [id number] 27 Oct, 2012 [facility] [address] [id number] [address] [place] [address], [place] [id number] 18 Oct, 2012 [facility] [address] [id number] [address] [place] [address], [place] [id number] 14 Oct, 2012 [facility] [address] [id number] [address] [place] [address], [place] [id number] 13 Oct, 2012 [facility] [address] [id number] [address] [place] [address], [place] [id number] 12 Oct, 2012 [facility] [address] [id number] [address] [place] [address], [place] [id number] 11 Oct, 2012 [facility] [address] [id number] [address] [place] [address], [place] [id number] 08 Oct, 2012 [facility] [address] [id number] [address] [place] [address], [place] [id number] 20 Sep, 2012 [facility] [address] [id number] [address] [place] [address], [place] [id number] Sep, [facility] [address] [id number] [address] [place] [address], [place] [id number] Aug, [facility] [address] [id number] [address] [place] [address], [place] [id number] Aug, [facility] [address] [id number] [address] [place] [address], [place] [id number] Jul, [facility] [address] [id number] [address] [place] [address], [place] [id number] Jul, [facility] [address] [id number] [address] [place] [id number] Jul, [facility] [place] [address] [id number] [address] [place] [id number] Jul, [facility] [place] [address] [facility] [id number] [address] [place] [id number] Jul, [facility] [place] [address] [facility] [id number] [address] [place] [id number] Jul, [facility] [place] [address] [facility] [id number] [address] [place] [id number] Jul, [facility] [place] [address] [facility] [id number] [address] [place] [id number] Jul, [facility] [place] [address] [facility] [id number] [address] [place] [id number] Jun, [facility] [place] [address] [facility] [id number] [address] [place] [id number] Jun, IMMUNIZATIONS No Known Immunizations SOCIAL HISTORY Never Assessed REASON FOR VISIT Controlled Med Refill 10/13 PLAN OF CARE VITAL SIGNS MEDICATIONS Medication Instructions Dosage Frequency Start Date End Date Duration S tatus Hydrocodone-Acetaminophen 5-325 MG Orally 3 times a day prn must last 4 weeks 1 Tablet Oct, Active RESULTS No Results PROCEDURES No Known [...]
--- OUTSIDE RECORDS SUMMARY | 2020-02-11 03:25 | XMS REPORT ---
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 Name Role Phone АНДРЕЙ DANG Unavailable PROBLEMS Type Condition ICD9-CM Code SAD43-PE Code Onset Dates Condition S tatus SNOMED Code Problem Chronic pain G89.29 Active 4585817 1 Problem Pre-diabetes R73.09 Active 1377433 02 Problem Essential hypertension I10 Active 15809906 Problem BMI 45.0-49.9, adult Z68.42 Active 477028093 Problem Numbness and tingling in hands R20.2 Active 105164801 Problem GERD (gastroesophageal reflux disease) K21.9 Active 388180375 Problem Stasis dermatitis of both legs I87.2 Active 50556825 Problem History of abnormal cervical Pap smear Z87.898 Active 278629565 ALLERGIES No Information ENCOUNTERS Encounter Location Date Diagnosis [place] [address] [address] December, Chronic pain G89.29 [place] [address] [address] 12 Nov, 2017 Long-term use of high-risk m edication Z79.899 [place] [address] [address] [place] [id number] [place] [address] Nov, Chronic pain G89.29 [place] [address] [address] Oct, Chronic pain G89.29 ; Pre-di abetes R73.09 ; Long-term use of high- risk medication Z79.899 ; Allergic rhinitis, unspecified seasonality, unspecified trigger J30.9 ; BMI 45.0-49.9, adult Z68.42 and Essential hypertension I10 [facility] [address] [facility] [id number] [address] [place] [address] Oct, Chronic pain G89.29 [facility] [address] [place] [id number] [place] [address] Sep, Chronic pain G89.29 [facility] [address] [place] [id number] [place] [address] Aug, Chronic pain G89.29 [facility] [address] [place] [id number] [place] [address] Jul, [place] [address] [address] Jul, [place] [address] [place] [id number] [place] [address] Jun, Chronic pain G89.29 ; BMI 45 .0-49.9, adult Z68.42 ; Pre-diabetes R73.09 ; Essential hypertension I10 ; GERD (gastroesophageal reflux disease) K21.9 ; Yeast dermatitis B37.2 ; Dysuria R30.0 ; Acute non-recurrent maxillary sinusitis J01.00 and Acute cystitis with hematuria N30.01 [place] [address] [address] [place] [id number] [place] [address] Jun, Chronic pain G89.29 [place] [address] [address] Jun, Acute non-recurrent maxillar y sinusitis J01.00 and BMI 45.0-49.9, adult Z68.42 [facility] [address] [facility] [id number] [address] [place] [address] May, [place] [address] [address] May, Chronic pain G89.29 [facility] [address] [place] [id number] [address] [place] [address] May, [place] [address] [place] [id number] [place] [address] Apr, Chronic pain G89.29 [place] [address] [address] Mar, [place] [address] [place] [id number] [place] [address] Mar, Essential hypertension I10 a nd Pre-diabetes R73.09 [place] [address] [address] 15 Mar, 2017 Chronic pain G89.29 ; Essent ial hypertension I10 ; Depressive disorder, not elsewhere classified F32.9 ; GERD (gastroesophageal reflux disease) K21.9 ; Pre-diabetes R73.09 ; Stasis dermatitis of both legs I87.2 and Acute non-recurrent maxillary sinusitis J01.00 [place] [address] [address] Mar, Chronic pain G89.29 [place] [address] [address] Mar, Achilles tendinitis of right lower extremity M76.61 and Tinea corporis B35.4 [place] [address] [address] 17 Feb, 2017 Yeast dermatitis B37.2 [place] [address] [address] 14 Feb, 2017 Candidal intertrigo B37.2 an d Acute right ankle pain M25.571 [place] [address] [address] [place] [id number] [place] [address] 12 Feb, 2017 Chronic pain G89.29 [place] [address] [place] [id number] [place] [address] Jan, [place] [address] [place] [id number] [place] [address] Jan, Chronic pain G89.29 [place] [address] [facility] [id number] [address] [place] [address] December, Chronic pain G89.29 ; Essent ial hypertension I10 ; Depressive disorder, not elsewhere classified F32.9 ; GERD (gastroesophageal reflux disease) K21.9 ; Pre-diabetes R73.09 ; Screening breast examination Z12.39 ; Stasis dermatitis of both legs I87.2 and Yeast dermatitis B37.[address] [id number] [address] [place] [address] Nov, Chronic pain G89.29 [place] [id number] [address] [place] [address] Nov, Cellulitis of left lower ext remity L03.116 [place] [id number] [address] [place] [address] Nov, Cellulitis of left lower ext remity L03.116 [place] [address] [facility] [id number] [address] [place] [address] Oct, Yeast dermatitis B37.2 [place] [id number] [address] [place] [address] Oct, Chronic pain G89.29 [place] [address] [address] [place] [id number] [place] [address] Sep, Chronic pain G89.29 ; Essent ial hypertension I10 ; Depressive disorder, not elsewhere classified F32.9 and GERD (gastroesophageal reflux disease) K21.9 [place] [address] [facility] [id number] [address] [place] [address] Aug, Chronic pain G89.[address] [address] Aug, Cough R05 ; Rash R21 and Vinay h and nonspecific skin eruption R21 [place] [id number] [place] [address] Jul, Chronic pain G89.29 [place] [address] [address] Jun, Chronic pain G89.29 ; Bronch itis J40 ; Essential hypertension I10 ; Depressive disorder, not elsewhere classified F32.9 ; GERD (gastroesophageal reflux disease) K21.9 and History of long-term use of multiple prescription drugs Z92.29 [place] [address] [address] Jun, Bronchitis J40 ; Chills R68. 83 and Sore throat J02.9 [place] [address] [address] May, [place] [address] [address] Apr, [facility] [address] [address] Apr, Acute mucoid otitis media of both ears H65.113 [place] [address] [address] 07 Apr, 2016 Yeast dermatitis B37.2 and H ematuria R31.9 [place] [address] [address] Mar, [place] [address] [address] Mar, [place] [address] [address] Feb, Left anterior knee pain M25. 562 [place] [address] [address] Feb, Chronic pain G89.29 ; Essent ial hypertension I10 ; Depressive disorder, not elsewhere classified F32.9 ; GERD (gastroesophageal reflux disease) K21.9 and History of long-term use of multiple prescription drugs Z92.29 [place] [address] [address] Jan, [place] [id number] [address] [place] [address] Jan, Well woman exam Z01.419 ; BM I 45.0-49.9, adult Z68.42 ; Family history of diabetes mellitus Z83.3 and Chronic pain G89.[address] [address] December, Chronic pain G89.29 ; Essent ial hypertension I10 ; Depressive disorder, not elsewhere classified F32.9 ; GERD (gastroesophageal reflux disease) K21.9 ; 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 ; History of long-term use of multiple prescription drugs Z92.29 and Obesity E66.[address] [address] Oct, [address] [address] Oct, Well woman exam Z01.419 ; BM [...] smear Z12.4 and No natural teeth K00.0 [place] [id number] [place] [address] Oct, [address] [address] Sep, Chronic pain G89.29 ; Essent ial hypertension I10 ; GERD (gastroesophageal reflux disease) K21.9 ; 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 ; Skin infection L08.9 and History of long-term use of multiple prescription drugs Z92.[address] [address] Aug, [facility] [address] [facility] [id number] [address] [place] [address] Jul, [facility] [address] [facility] [id number] [address] [place] [address] Jul, [facility] [address] [place] [id number] [address] [place] [address] Jul, Upper respiratory infection J06.9 [facility] [address] [facility] [id number] [address] [place] [address] Jul, Depressive disorder, not els ewhere classified F32.9 [facility] [address] [facility] [id number] [address] [place] [address] Jul, Chronic pain 338.29 [place] [address] [address] [place] [id number] [place] [address] Jul, Chronic pain G89.29 [facility] [address] [place] [id number] [place] [address] Jun, Poison josep L23.7 [place] [address] [address] [place] [id number] [place] [address] Jun, Allergic contact dermatitis due to plants, except food L23.7 [place] [address] [address] [place] [id number] [place] [address] Jun, Essential hypertension I10 ; Chronic pain G89.29 ; GERD (gastroesophageal reflux disease) K21.9 and Numbness and tingling in hands R20.2 [facility] [address] [facility] [id number] [address] [place] [address] May, [facility] [address] [place] [id number] [place] [address] Apr, [facility] [address] [place] [id number] [place] [address] Mar, [facility] [address] [place] [id number] [place] [address] Feb, Abdominal pain, left lateral 789.09 and Constipation 564.00 [facility] [address] [place] [id number] [place] [address] Feb, Depressive disorder, not els ewhere classified 311 and No condition on Sayre II V71.09 [facility] [address] [place] [id number] [place] [address] Feb, Spider bite 989.5 and Depres homar 311 [facility] [address] [place] [id number] [place] [address] Feb, [facility] [address] [address] Feb, Chronic pain 338.29 ; Arthro zonia 716.90 and GERD (gastroesophageal reflux disease) 530.81 [place] [address] [address] [place] [id number] [place] [address] Jan, Insect bites 919.4 [facility] [address] [place] [id number] [address] [place] [address] Jan, [facility] [address] [place] [id number] [place] [address] December, Skin infection, bacterial 68 6.9 ; Conjunctivitis 372.30 and Insect bites 919.4 [facility] [address] [place] [id number] [place] [address] December, Chronic pain 338.29 ; Arthro zonia 716.90 ; Skin infection, bacterial 686.9 and Conjunctivitis 372.30 [facility] [address] [place] [id number] [place] [address] December, [facility] [address] [place] [id number] [place] [address] Nov, [facility] [address] [place] [id number] [place] [address] Nov, [facility] [address] [id number] [address] [place] [address], [place] [address] Oct, [facility] [address] [id number] [address] [place] [address], [place] [address] Oct, [facility] [address] [id number] [address] [place] [address], [place] [address] Sep, [facility] [address] [id number] [address] [place] [address], [place] [address] Sep, [facility] [address] [id number] [address] [place] [address], [place] [address] Aug, [facility] [address] [id number] [address] [place] [address], [place] [address] Aug, [facility] [address] [id number] [address] [place] [address], [place] [address] Aug, [facility] [address] [id number] [address] [place] [address], [place] [address] Aug, [facility] [address] [id number] [address] [place] [address], [place] [address] Jul, [facility] [address] [id number] [address] [place] [address], [place] [address] Jul, [facility] [address] [id number] [address] [place] [address], [place] [address] Jul, [facility] [address] [id number] [address] [place] [address], [place] [address] Jul, [facility] [address] [id number] [address] [place] [address], [place] [address] Jul, [facility] [address] [id number] [address] [place] [address], [place] [address] Jul, [facility] [address] [id number] [address] [place] [address], [place] [address] Jul, [facility] [address] [id number] [address] [place] [address], [place] [address] Jul, [facility] [address] [id number] [address] [place] [address], [place] [address] Jul, [facility] [address] [id number] [address] [place] [address], [place] [address] Jun, [facility] [address] [id number] [address] [place] [address], [place] [address] Jun, [facility] [address] [id number] [address] [place] [address], [place] [address] Jun, [facility] [address] [id number] [address] [place] [address], [place] [address] Jun, [facility] [address] [id number] [address] [place] [address], [place] [address] Jun, [facility] [address] [id number] [address] [place] [address], [place] [address] Jun, [facility] [address] [id number] [address] [place] [address], [place] [address] Jun, [facility] [address] [id number] [address] [place] [address], [place] [address] Jun, [facility] [address] [id number] [address] [place] [address] May, [facility] [address] [id number] [address] [place] [address] May, [facility] [address] [id number] [address] [place] [address] May, [facility] [address] [id number] [address] [place] [address], [place] [address] May, [facility] [address] [id number] [address] [place] [address], [place] [address] May, [facility] [address] [id number] [address] [place] [address] Apr, [facility] [address] [id number] [address] [place] [address] 26 Apr, 2013 [facility] [address] [id number] [address] [place] [address], [place] [address] 25 Apr, 2013 [facility] [address] [id number] [address] [place] [address], [place] [address] 25 Apr, 2013 [facility] [address] [id number] [address] [place] [address], [place] [address] 18 Apr, 2013 [facility] [address] [id number] [address] [place] [address], [place] [address] 18 Apr, 2013 [facility] [address] [id number] [address] [place] [address], [place] [address] 18 Apr, 2013 [facility] [address] [id number] [address] [place] [address], [place] [address] Apr, 2013 [facility] [address] [id number] [address] [place] [address], [place] [address] Apr, [facility] [address] [id number] [address] [place] [address], [place] [address] Apr, [facility] [address] [id number] [address] [place] [address], [place] [address] Mar, [facility] [address] [id number] [address] [place] [address], [place] [address] Mar, [facility] [address] [id number] [address] [place] [address], [place] [address] Mar, [facility] [address] [id number] [address] [place] [address], [place] [address] Mar, [facility] [address] [id number] [address] [place] [address], [place] [address] Mar, [facility] [address] [id number] [address] [place] [address], [place] [address] Mar, [facility] [address] [id number] [address] [place] [address], [place] [address] Feb, [facility] [address] [id number] [facility] [place] [address] Feb, [facility] [address] [id number] [address] [place] [address], [place] [address] Jan, [facility] [address] [id number] [address] [place] [address], [place] [address] Jan, [facility] [address] [id number] [address] [place] [address], [place] [address] Jan, [facility] [address] [id number] [address] [place] [address], [place] [address] Jan, [facility] [address] [id number] [address] [place] [address], [place] [address] December, [facility] [address] [id number] [address] [place] [address], [place] [address] December, [facility] [address] [id number] [address] [place] [address], [place] [address] December, [facility] [address] [id number] [address] [place] [address], [place] [address] December, [facility] [address] [id number] [address] [place] [address], [place] [address] December, [facility] [address] [id number] [address] [place] [address], [place] [address] December, [facility] [address] [id number] [address] [place] [address], [place] [address] December, [facility] [address] [id number] [address] [place] [address], [place] [address] December, [facility] [address] [id number] [address] [place] [address], [place] [address] December, [facility] [address] [id number] [address] [place] [address], [place] [address] Nov, [facility] [address] [id number] [address] [place] [address], [place] [address] Nov, [facility] [address] [id number] [facility] [place] [address] Nov, [facility] [address] [id number] [address] [place] [address], [place] [address] Nov, [facility] [address] [id number] [address] [place] [address], [place] [address] Nov, [facility] [address] [id number] [address] [place] [address], [place] [address] Nov, [facility] [address] [id number] [address] [place] [address], [place] [address] Nov, [facility] [address] [id number] [address] [place] [address], [place] [address] Nov, [facility] [address] [id number] [address] [place] [address], [place] [address] Nov, [facility] [address] [id number] [address] [place] [address], [place] [address] Nov, [facility] [address] [id number] [address] [place] [address], [place] [address] Oct, [facility] [address] [id number] [address] [place] [address], [place] [address] Oct, [facility] [address] [id number] [address] [place] [address], [place] [address] Sep, [facility] [address] [id number] [address] [place] [address], [place] [address] Sep, [facility] [address] [id number] [address] [place] [address], [place] [address] Aug, [facility] [address] [id number] [address] [place] [address], [place] [address] Aug, [facility] [address] [id number] [address] [place] [address], [place] [address] Aug, [facility] [address] [id number] [address] [place] [address], [place] [address] 16 Aug, 2013 [facility] [address] [id number] [address] [place] [address], [place] [address] Jul, [facility] [address] [id number] [address] [place] [address], [place] [address] Jul, [facility] [address] [id number] [address] [place] [address], [place] [address] Jul, [facility] [address] [id number] [address] [place] [address], [place] [address] Jul, [facility] [address] [id number] [address] [place] [address], [place] [address] Jun, [facility] [address] [id number] [address] [place] [address], [place] [address] Jun, [facility] [address] [id number] [address] [place] [address], [place] [address] May, [facility] [address] [id number] [address] [place] [address], [place] [address] May, [facility] [address] [id number] [address] [place] [address], [place] [address] May, [facility] [address] [id number] [address] [place] [address], [place] [address] May, [facility] [address] [id number] [address] [place] [address], [place] [address] May, [facility] [address] [id number] [address] [place] [address], [place] [address] May, [facility] [address] [id number] [address] [place] [address], [place] [address] 30 Apr, 2013 [facility] [address] [id number] [address] [place] [address], [place] [address] 23 Apr, 2013 [facility] [address] [id number] [address] [place] [address], [place] [address] Apr, [facility] [address] [id number] [address] [place] [address], [place] [address] Feb, [facility] [address] [id number] [address] [place] [address], [place] [address] Jan, [facility] [address] [id number] [address] [place] [address], [place] [address] Jan, [facility] [address] [id number] [address] [place] [address], [place] [address] Jan, [facility] [address] [id number] [address] [place] [address], [place] [address] Jan, [facility] [address] [id number] [address] [place] [address], [place] [address] December, [facility] [address] [id number] [address] [place] [address], [place] [address] December, [facility] [address] [id number] [address] [place] [address], [place] [address] Nov, [facility] [address] [id number] [address] [place] [address], [place] [address] Nov, [facility] [address] [id number] [address] [place] [address], [place] [address] Nov, [facility] [address] [id number] [address] [place] [address], [place] [address] Nov, [facility] [address] [id number] [address] [place] [address], [place] [address] Nov, [facility] [address] [id number] [address] [place] [address], [place] [address] Nov, [facility] [address] [id number] [address] [place] [address], [place] [address] Nov, [facility] [address] [id number] [address] [place] [address], [place] [address] Oct, [facility] [address] [id number] [address] [place] [address], [place] [address] 18 Oct, 2012 [facility] [address] [id number] [address] [place] [address], [place] [address] 14 Oct, 2012 [facility] [facility] [address] [id number] [address] [place] [address], [place] [address] 13 Oct, 2012 [facility] [address] [id number] [address] [place] [address], [place] [address] 12 Oct, 2012 [facility] [address] [id number] [address] [place] [address], [place] [address] 11 Oct, 2012 [facility] [address] [id number] [address] [place] [address], [place] [address] 08 Oct, 2012 [facility] [address] [id number] [address] [place] [address], [place] [address] 20 Sep, 2012 [facility] [address] [id number] [address] [place] [address], [place] [address] Sep, [facility] [address] [id number] [address] [place] [address], [place] [address] Aug, [facility] [address] [id number] [address] [place] [address], [place] [address] Aug, [facility] [address] [id number] [address] [place] [address], [place] [address] Jul, [facility] [address] [id number] [address] [place] [address], [place] [address] Jul, [facility] [address] [id number] [address] [place] [address], [place] [address] Jul, [facility] [address] [id number] [address] [place] [address], [place] [address] Jul, [facility] [address] [id number] [address] [place] [address], [place] [address] Jul, [facility] [address] [id number] [address] [place] [address], [place] [address] Jul, [facility] [address] [facility] [id number] [address] [place] [address] Jul, [facility] [address] [facility] [id number] [address] [place] [address] Jul, [facility] [address] [facility] [id number] [address] [place] [address] Jun, [facility] [address] [facility] [id number] [address] [place] [address] Jun, IMMUNIZATIONS No Known Immunizations SOCIAL HISTORY Never Assessed REASON FOR VISIT triage - CBowmanRN PLAN OF CARE VITAL SIGNS MEDICATIONS Unknown [...]
--- OUTSIDE RECORDS SUMMARY | 2020-02-11 03:25 | XMS REPORT ---
Author Author Madeline CHIANG [facility] Address [address] [place] [address] Care Team Providers Care Manager Material Name Role Phone DANG CHIANG Unavailable PROBLEMS Type Condition ICD9-CM Code [id number] Code Onset Dates Condition S tatus SNOMED Code Problem Essential hypertension I10 Active 46288244 Problem GERD (gastroesophageal reflux disease) K21.9 Active 916690297 Problem Chronic pain G89.29 Active 9911838 1 Problem Hematuria R31.9 Active 06770801 Problem Pre-diabetes R73.09 Active 3068438 02 Problem BMI 45.0-49.9, adult Z68.42 Active 049138345 Problem Stasis dermatitis of both legs I87.2 Active 20058495 Problem History of hysterectomy Z90.710 Active 380036506 Problem Numbness and tingling in hands R20.2 Active 629750091 Problem History of depression Z86.59 Active 431577648 Problem History of abnormal cervical Pap smear Z87.898 Active 651959890 ALLERGIES Substance Reaction Event Type Date Status PredniSONE hives Drug Allergy December, Active Meloxicam hives Drug Allergy December, Active Levaquin itching Drug Allergy December, Active SOCIAL HISTORY Never Assessed PLAN OF CARE Activity Details Follow Up 3 Months Reason:Pain/HTN VITAL SIGNS Height 62 in 2016-12-22 Weight 254.8 lbs 2016-12-22 Temperature 98.6 degrees Fahrenheit 2016-12-22 Heart Rate 80 bpm 2016-12-22 Respiratory Rate 18 2016-12-22 BMI 46.60 kg/m2 2016-12-22 Blood pressure systolic 131 mmHg 2016-12-22 Blood pressure diastolic 74 mmHg 2016-12-22 MEDICATIONS Medication Instructions Dosage Frequency Start Date End Date Duration S tatus Hydrochlorothiazide 25 MG Orally Once a day 1 tablet 24h Active Indomethacin 50 mg Orally 3 times a day 1 capsule with food or milk 8h Active Iklub-1-oxep Ethyl Esters 1 GM Orally Once a day 1 capsule 24h Active Paroxetine HCl 10 mg Orally Once a day 1 tablet in the morning 24h 30 Active Omeprazole 20 MG TAKE ONE CAPSULE BY MOUTH ONCE DAILY BEFORE A M EAL 30 Active Hydrocodone-Acetaminophen 5-325 MG Orally 3 times a day prn must last 4 weeks 1 Tablet December, Active Omeprazole 20 mg Orally Once a day 1 capsule 24h Active Albuterol Sulfate 90 mcg/actuation 2 puf fs by Inhalation route every 4-6 hours as needed PRN cough or wheezing Active Nystatin-Triamcinolone 770505-3.1 UNIT/GM Externally Twice a day 1 application to affected area 12h 07 Apr, 2016 Active Diflucan 100 mg Orally Once a day 1 tablet 24h December, December, 10 day(s) Active RESULTS Name Result Date Reference Range A1C (IN HOUSE) 2016-12-22 A1C IN HOUSE 5.8 4.3 - 5.6 % Previous A1c 6.1 Lot [id number] Exp date [employer] 2016-12-26 Mammogram, Bilateral Screening 2016-12-30 PROCEDURES Procedure Date Ordered Result Body Site No Charge December 22, 2016 GLYCATED HEMOGLOBIN TEST December 22, 2016 IMMUNIZATIONS No Known Immunizations MEDICAL (GENERAL) HISTORY Type Description Date Medical [...]
--- OUTSIDE RECORDS SUMMARY | 2020-02-11 03:26 | XMS REPORT ---
Author Author Madeline JAVIER Organization [facility] Address [address] [place] [address] Care Team Providers Care Real Estate Closing Coordinator Name Role Phone TAB JAVIERNETTE Unavailable PROBLEMS Type Condition ICD9-CM Code [id number] Code Onset Dates Condition S tatus SNOMED Code Problem Pre-diabetes R73.09 Active 9847478 02 Problem Chronic pain G89.29 Active 2615528 1 Problem Essential hypertension I10 Active 46210803 Problem Hematuria R31.9 Active 72787448 Problem Stasis dermatitis of both legs I87.2 Active 90069962 Problem History of depression Z86.59 Active 977476645 Problem Numbness and tingling in hands R20.2 Active 606267012 Problem GERD (gastroesophageal reflux disease) K21.9 Active 883190701 Problem History of abnormal cervical Pap smear Z87.898 Active 904435496 Problem History of hysterectomy Z90.710 Active 075511486 ALLERGIES Substance Reaction Event Type Date Status PredniSONE hives Drug Allergy Aug, Active Meloxicam hives Drug Allergy Aug, Active Levaquin itching Drug Allergy Aug, Active SOCIAL HISTORY No smoking Hx information available PLAN OF CARE Activity Details Follow Up 2 - 3 Days, prn Reason: VITAL SIGNS Height 62 in 2016-08-10 Weight 257 lbs 2016-08-10 Temperature 98.9 degrees Fahrenheit 2016-08-10 Heart Rate 92 bpm 2016-08-10 Respiratory Rate 18 2016-08-10 BMI 47.00 kg/m2 2016-08-10 Blood pressure systolic 138 mmHg 2016-08-10 Blood pressure diastolic 88 mmHg 2016-08-10 MEDICATIONS Medication Instructions Dosage Frequency Start Date End Date Duration S tatus Indomethacin 50 mg Orally 3 times a day 1 capsule with food or milk 8h Active Promethazine-Codeine 6.25-10 MG/5ML Orally every 6 hrs prn 5 ml as needed Jun, Active Omeprazole 20 MG TAKE ONE CAPSULE BY MOUTH ONCE DAILY BEFORE A M EAL 30 Active Paroxetine HCl 10 MG Orally Once a day 1 tablet in the morning 24h 30 Active Albuterol Sulfate 90 mcg/actuation 2 puf fs by Inhalation route every 4-6 hours as needed PRN cough or wheezing Active Robitussin Cough/Cold CF 5-10-100 MG/5ML Orally every 4 hrs 10 ml a s needed 4h Aug, Active Atkjz-1-ehse Ethyl Esters 1 GM Orally Twice a day 2 capsules 12h Active Hydrocodone-Acetaminophen 5-325 MG Orally 3 times a day prn must last 4 weeks 1 Tablet Active Hydrochlorothiazide 25 MG Orally Once a day 1 tablet 24h Active Omeprazole 20 mg Orally Once a day 1 capsule 24h Active Nystatin-Triamcinolone 559873-7.1 UNIT/GM Externally Twice a day 1 application to affected area 12h Apr, Active RESULTS No Results PROCEDURES Procedure Date Ordered Related Diagnosis Body Site Office Visit, Est Pt., Level 3 Aug 10, 2016 DEXAMETHASONE 4MG/ML (PER 1 MG) Aug 10, 2016 THER/PROPH/DIAG INJ, SC/IM Aug 10, 2016 IMMUNIZATIONS Vaccine Route Administration Date Status DEXAMETHASONE 4MG/ML (PER 1 MG) IM Intramuscular Aug 10, 2016 Administered
--- OUTSIDE RECORDS SUMMARY | 2020-02-11 03:26 | XMS REPORT ---
Author Author Madeline CHIANG [facility] Address [address] [place] [address] Care Team Providers Care Adobe Maker Name Role Phone DANG CHIANG Unavailable PROBLEMS Type Condition ICD9-CM Code ICG02-IN Code Onset Dates Condition S tatus SNOMED Code Problem Pre-diabetes R73.09 Active 7047686 02 Problem Chronic pain G89.29 Active 4115286 1 Problem Essential hypertension I10 Active 94589100 Problem Hematuria R31.9 Active 66818687 Problem Stasis dermatitis of both legs I87.2 Active 72920449 Problem History of depression Z86.59 Active 216294259 Problem Numbness and tingling in hands R20.2 Active 786192416 Problem GERD (gastroesophageal reflux disease) K21.9 Active 614969192 Problem History of abnormal cervical Pap smear Z87.898 Active 572819722 Problem History of hysterectomy Z90.710 Active 084779219 ALLERGIES Unknown Allergies SOCIAL HISTORY No smoking Hx information available PLAN OF CARE VITAL SIGNS MEDICATIONS Medication Instructions Dosage Frequency Start Date End Date Duration S tatus Hydrocodone-Acetaminophen 5-325 MG Orally 3 times a day prn must last 4 weeks 1 Tablet Active RESULTS No Results PROCEDURES No Known procedures IMMUNIZATIONS No Known Immunizations
--- OUTSIDE RECORDS SUMMARY | 2020-02-11 03:26 | XMS REPORT ---
Author Author АНДРЕЙ Madelineshawn LEONG Organization [facility] Address [address] [place] [address] Care Team Providers Care Poker Manager Name Role Phone KWESIKennedy DANG Unavailable PROBLEMS Type Condition ICD9-CM Code APQ09-BP Code Onset Dates Condition S tatus SNOMED Code Problem Chronic pain G89.29 Active 4776762 1 Problem Pre-diabetes R73.09 Active 4332156 02 Problem Essential hypertension I10 Active 30690817 Problem BMI 45.0-49.9, adult Z68.42 Active 070860942 Problem Numbness and tingling in hands R20.2 Active 859676030 Problem GERD (gastroesophageal reflux disease) K21.9 Active 493116179 Problem Stasis dermatitis of both legs I87.2 Active 68138934 Problem History of abnormal cervical Pap smear Z87.898 Active 831787211 ALLERGIES No Information ENCOUNTERS Encounter Location Date Diagnosis [place] [address] [address] [facility] [id number] [address] [place] [address] Feb, [place] [address] [address] [facility] [id number] [address] [place] [address] Jan, Chronic pain G89.29 [place] [address] [address] [facility] [id number] [address] [place] [address] December, Chronic pain G89.29 [place] [id number] [facility] [id number] [address] [place] [address] Nov, Long-term use of high-risk m edication Z79.899 [facility] [address] [facility] [id number] [address] [place] [address] Nov, Chronic pain G89.29 [place] [address] [facility] [id number] [address] [place] [address] Oct, Chronic pain G89.29 ; Pre-di abetes R73.09 ; Long-term use of high- risk medication Z79.899 ; Allergic rhinitis, unspecified seasonality, unspecified trigger J30.9 ; BMI 45.0-49.9, adult Z68.42 and Essential hypertension I10 [place] [address] [address] Oct, Chronic pain G89.29 [place] [address] [address] Sep, Chronic pain G89.29 [place] [address] [address] Aug, Chronic pain G89.29 [place] [address] [address] Jul, [place] [address] [address] Jul, [place] [address] [address] Jun, Chronic pain G89.29 ; BMI 45 .0-49.9, adult Z68.42 ; Pre-diabetes R73.09 ; Essential hypertension I10 ; GERD (gastroesophageal reflux disease) K21.9 ; Yeast dermatitis B37.2 ; Dysuria R30.0 ; Acute non-recurrent maxillary sinusitis J01.00 and Acute cystitis with hematuria N30.01 [place] [address] [address] Jun, Chronic pain G89.29 [place] [address] [address] 02 Jun, 2017 Acute non-recurrent maxillar y sinusitis J01.00 and BMI 45.0-49.9, adult Z68.42 [place] [address] [address] May, [place] [address] [facility] [id number] [address] [place] [address] May, Chronic pain G89.29 [place] [address] [place] [id number] [address] [place] [address] May, [place] [address] [facility] [id number] [address] [place] [address] Apr, Chronic pain G89.29 [place] [address] [place] [id number] [address] [place] [address] Mar, [place] [address] [address] Mar, Essential hypertension I10 a nd Pre-diabetes R73.09 [place] [address] [place] [id number] [address] [place] [address] 15 Mar, 2017 Chronic pain G89.29 ; Essent ial hypertension I10 ; Depressive disorder, not elsewhere classified F32.9 ; GERD (gastroesophageal reflux disease) K21.9 ; Pre-diabetes R73.09 ; Stasis dermatitis of both legs I87.2 and Acute non-recurrent maxillary sinusitis J01.00 [place] [address] [address] Mar, Chronic pain G89.29 [place] [id number] [place] [address] Mar, Achilles tendinitis of right lower extremity M76.61 and Tinea corporis B35.4 [place] [address] [place] [id number] [address] [place] [address] Feb, Yeast dermatitis B37.2 [place] [address] [place] [id number] [address] [place] [address] 14 Feb, 2017 Candidal intertrigo B37.2 an d Acute right ankle pain M25.571 [place] [address] [place] [id number] [address] [place] [address] Feb, Chronic pain G89.29 [id number] [facility] [id number] [address] [place] [address] Jan, [place] [address] [address] [facility] [id number] [address] [place] [address] Jan, Chronic pain G89.29 [place] [address] [facility] [id number] [address] [place] [address] December, Chronic pain G89.29 ; Essent ial hypertension I10 ; Depressive disorder, not elsewhere classified F32.9 ; GERD (gastroesophageal reflux disease) K21.9 ; Pre-diabetes R73.09 ; Screening breast examination Z12.39 ; Stasis dermatitis of both legs I87.2 and Yeast dermatitis B37.2 [place] [address] [facility] [id number] [address] [place] [address] Nov, Chronic pain G89.29 [place] [address] [facility] [id number] [address] [place] [address] Nov, Cellulitis of left lower ext remity L03.116 [place] [address] [address] [facility] [id number] [address] [place] [address] Nov, Cellulitis of left lower ext remity L03.116 [place] [address] [address] [facility] [id number] [address] [place] [address] Oct, Yeast dermatitis B37.2 [place] [address] [facility] [id number] [address] [place] [address] Oct, Chronic pain G89.29 [place] [address] [facility] [id number] [address] [place] [address] Sep, Chronic pain G89.29 ; Essent ial hypertension I10 ; Depressive disorder, not elsewhere classified F32.9 and GERD (gastroesophageal reflux disease) K21.9 [place] [address] [facility] [id number] [address] [place] [address] Aug, Chronic pain G89.29 [place] [address] [place] [id number] [address] [place] [address] Aug, Cough R05 ; Rash R21 and Vinay h and nonspecific skin eruption R21 [place] [address] [address] Jul, Chronic pain G89.29 [place] [address] [address] Jun, Chronic pain G89.29 ; Bronch itis J40 ; Essential hypertension I10 ; Depressive disorder, not elsewhere classified F32.9 ; GERD (gastroesophageal reflux disease) K21.9 and History of long-term use of multiple prescription drugs Z92.29 [place] [address] [address] Jun, Bronchitis J40 ; Chills R68. 83 and Sore throat J02.9 [place] [address] [address] May, [place] [address] [address] 29 Apr, 2016 [facility] [address] [address] Apr, Acute mucoid otitis media of both ears H65.113 [place] [address] [address] 07 Apr, 2016 Yeast dermatitis B37.2 and H ematuria R31.9 [place] [address] [address] Mar, [place] [address] [address] Mar, [place] [address] [address] Feb, Left anterior knee pain M25. 562 [place] [address] [address] Feb, Chronic pain G89.29 ; Essent ial hypertension I10 ; Depressive disorder, not elsewhere classified F32.9 ; GERD (gastroesophageal reflux disease) K21.9 and History of long-term use of multiple prescription drugs Z92.29 [place] [address] [address] Jan, [address] [address] Jan, Well woman exam Z01.419 ; BM I 45.0-49.9, adult Z68.42 ; Family history of diabetes mellitus Z83.3 and Chronic pain G89.[address] [address] December, Chronic pain G89.29 ; Essent ial hypertension I10 ; Depressive disorder, not elsewhere classified F32.9 ; GERD (gastroesophageal reflux disease) K21.9 ; 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 ; History of long-term use of multiple prescription drugs Z92.29 and Obesity E66.9 [place] [address] [address] Oct, [address] [address] Oct, Well woman exam Z01.419 ; BM [...] smear Z12.4 and No natural teeth K00.0 [place] [address] [address] Oct, [address] [address] Sep, Chronic pain G89.29 ; Essent ial hypertension I10 ; GERD (gastroesophageal reflux disease) K21.9 ; 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 ; Skin infection L08.9 and History of long-term use of multiple prescription drugs Z92.29 [facility] [address] [place] [id number] [address] [place] [address] Aug, [facility] [address] [place] [id number] [address] [place] [address] Jul, [facility] [address] [place] [id number] [address] [place] [address] Jul, [place] [address] [place] [id number] [place] [address] Jul, Upper respiratory infection J06.9 [place] [address] [place] [id number] [address] [place] [address] Jul, Depressive disorder, not els ewhere classified F32.9 [place] [address] [place] [id number] [address] [place] [address] Jul, Chronic pain 338.29 [place] [address] [facility] [id number] [address] [place] [address] Jul, Chronic pain G89.29 [place] [address] [place] [id number] [address] [place] [address] 16 Jun, 2015 Poison josep L23.7 [place] [address] [facility] [id number] [address] [place] [address] Jun, Allergic contact dermatitis due to plants, except food L23.7 [place] [address] [address] [facility] [id number] [address] [place] [address] 03 Jun, 2015 Essential hypertension I10 ; Chronic pain G89.29 ; GERD (gastroesophageal reflux disease) K21.9 and Numbness and tingling in hands R20.2 [place] [address] [place] [id number] [address] [place] [address] May, [place] [address] [address] 08 Apr, 2015 [facility] [address] [address] Mar, [place] [address] [address] Feb, Abdominal pain, left lateral 789.09 and Constipation 564.00 [place] [address] [address] Feb, Depressive disorder, not els ewhere classified 311 and No condition on [place] II V71.09 [place] [address] [address] Feb, Spider bite 989.5 and Depres homar 311 [place] [address] [address] Feb, [place] [address] [address] Feb, Chronic pain 338.29 ; Arthro zonia 716.90 and GERD (gastroesophageal reflux disease) 530.81 [place] [address] [address] Jan, Insect bites 919.4 [place] [address] [address] Jan, [place] [address] [address] December, Skin infection, bacterial 68 6.9 ; Conjunctivitis 372.30 and Insect bites 919.4 [place] [address] [address] December, Chronic pain 338.29 ; Arthro zonia 716.90 ; Skin infection, bacterial 686.9 and Conjunctivitis 372.30 [place] [address] [address] December, [facility] [address] [id number] [address] [place] [address], [place] [address] 14 Nov, 2014 [facility] [address] [id number] [address] [place] [address], [place] [address] Nov, [facility] [address] [id number] [address] [place] [address], [place] [address] Oct, [facility] [address] [id number] [address] [place] [address], [place] [address] Oct, [facility] [address] [id number] [address] [place] [address], [place] [address] Sep, [facility] [address] [id number] [address] [place] [address], [place] [address] Sep, [facility] [address] [id number] [address] [place] [address], [place] [address] Aug, [facility] [address] [id number] [address] [place] [address], [place] [address] Aug, [facility] [address] [id number] [address] [place] [address], [place] [address] Aug, [facility] [address] [id number] [address] [place] [address], [place] [address] Aug, [facility] [address] [id number] [address] [place] [address], [place] [address] Jul, [facility] [address] [id number] [address] [place] [address], [place] [address] Jul, [facility] [address] [id number] [address] [place] [address], [place] [address] Jul, [facility] [address] [id number] [address] [place] [address], [place] [address] Jul, [facility] [address] [id number] [address] [place] [address], [place] [address] Jul, [facility] [address] [id number] [address] [place] [address], [place] [address] 15 Jul, 2014 [facility] [address] [id number] [address] [place] [address], [place] [address] 15 Jul, 2014 [facility] [address] [id number] [address] [place] [address], [place] [address] Jul, [facility] [address] [id number] [address] [place] [address], [place] [address] Jul, [facility] [address] [id number] [address] [place] [address], [place] [address] Jun, [facility] [address] [id number] [address] [place] [address], [place] [address] Jun, [facility] [address] [id number] [address] [place] [address], [place] [address] Jun, [facility] [address] [id number] [address] [place] [address], [place] [address] Jun, [facility] [address] [id number] [address] [place] [address], [place] [address] Jun, [facility] [address] [id number] [address] [place] [address], [place] [address] Jun, [facility] [address] [id number] [address] [place] [address], [place] [address] Jun, [facility] [address] [id number] [address] [place] [address], [place] [address] Jun, [facility] [address] [id number] [address] [place] [address] May, [facility] [address] [id number] [address] [place] [address], [place] [address] May, [facility] [address] [id number] [address] [place] [address], [place] [address] May, [facility] [address] [id number] [address] [place] [address], [place] [address] May, [facility] [address] [id number] [address] [place] [address], [place] [address] May, [facility] [address] [id number] [address] [place] [address], [place] [address] Apr, 2013 [facility] [address] [id number] [address] [place] [address], [place] [address] Apr, 2013 [facility] [address] [id number] [address] [place] [address], [place] [address] Apr, 2013 [facility] [address] [id number] [address] [place] [address], [place] [address] Apr, 2013 [facility] [address] [id number] [address] [place] [address], [place] [address] Apr, [facility] [address] [id number] [address] [place] [address], [place] [address] Apr, 2013 [facility] [address] [id number] [address] [place] [address], [place] [address] Apr, 2013 [facility] [address] [id number] [address] [place] [address], [place] [address] 18 Apr, 2014 [facility] [address] [id number] [address] [place] [address], [place] [address] Apr, [facility] [address] [id number] [address] [place] [address], [place] [address] Apr, [facility] [address] [id number] [address] [place] [address], [place] [address] Mar, [facility] [address] [id number] [address] [place] [address], [place] [address] Mar, [facility] [address] [id number] [address] [place] [address], [place] [address] Mar, [facility] [address] [id number] [address] [place] [address], [place] [address] Mar, [facility] [address] [id number] [address] [place] [address], [place] [address] Mar, [facility] [address] [id number] [address] [place] [address], [place] [address] Mar, [facility] [address] [id number] [address] [place] [address], [place] [address] Feb, [facility] [address] [id number] [address] [place] [address], [place] [address] Feb, [facility] [address] [id number] [address] [place] [address], [place] [address] Jan, [facility] [address] [id number] [address] [place] [address], [place] [address] Jan, [facility] [address] [id number] [address] [place] [address], [place] [address] Jan, [facility] [address] [id number] [address] [place] [address], [place] [address] Jan, [facility] [address] [id number] [address] [place] [address], [place] [address] December, [facility] [address] [id number] [address] [place] [address], [place] [address] December, [facility] [address] [id number] [address] [place] [address], [place] [address] December, [facility] [address] [id number] [address] [place] [address], [place] [address] December, [facility] [address] [id number] [address] [place] [address], [place] [address] December, [facility] [address] [id number] [address] [place] [address], [place] [address] December, [facility] [address] [id number] [address] [place] [address], [place] [address] December, [facility] [address] [id number] [address] [place] [address], [place] [address] December, [facility] [address] [id number] [address] [place] [address], [place] [address] December, [facility] [address] [id number] [address] [place] [address], [place] [address] Nov, [facility] [address] [id number] [address] [place] [address], [place] [address] Nov, [facility] [address] [id number] [address] [place] [address], [place] [address] Nov, [facility] [address] [id number] [address] [place] [address], [place] [address] Nov, [facility] [address] [id number] [address] [place] [address], [place] [address] Nov, [facility] [address] [id number] [address] [place] [address], [place] [address] Nov, [facility] [address] [id number] [address] [place] [address], [place] [address] Nov, [facility] [address] [id number] [address] [place] [address], [place] [address] Nov, [facility] [address] [id number] [address] [place] [address], [place] [address] Nov, [facility] [address] [id number] [address] [place] [address], [place] [address] Nov, [facility] [address] [id number] [address] [place] [address], [place] [address] Oct, [facility] [address] [id number] [address] [place] [address], [place] [address] Oct, [facility] [address] [id number] [address] [place] [address], [place] [address] Sep, [facility] [address] [id number] [address] [place] [address], [place] [address] Sep, [facility] [address] [id number] [address] [place] [address], [place] [address] Aug, [facility] [address] [id number] [address] [place] [address], [place] [address] 17 Aug, 2013 [facility] [address] [id number] [address] [place] [address], [place] [address] Aug, [facility] [address] [id number] [address] [place] [address], [place] [address] Aug, [facility] [address] [id number] [address] [place] [address], [place] [address] Jul, [facility] [address] [id number] [address] [place] [address], [place] [address] Jul, [facility] [address] [id number] [address] [place] [address], [place] [address] Jul, [facility] [address] [id number] [address] [place] [address], [place] [address] Jul, [facility] [address] [id number] [address] [place] [address], [place] [address] Jun, [facility] [address] [id number] [address] [place] [address], [place] [address] Jun, [facility] [address] [id number] [address] [place] [address], [place] [address] May, [facility] [address] [id number] [address] [place] [address], [place] [address] May, [facility] [address] [id number] [address] [place] [address], [place] [address] May, [facility] [address] [id number] [address] [place] [address], [place] [address] May, [facility] [address] [id number] [address] [place] [address], [place] [address] May, [facility] [address] [id number] [address] [place] [address], [place] [address] May, [facility] [address] [id number] [address] [place] [address], [place] [address] 30 Apr, 2013 [facility] [address] [id number] [address] [place] [address], [place] [address] 23 Apr, 2013 [facility] [address] [id number] [address] [place] [address], [place] [address] 03 Apr, 2013 [facility] [address] [id number] [address] [place] [address], [place] [address] Feb, [facility] [address] [id number] [address] [place] [address], [place] [address] 27 Jan, 2013 [facility] [address] [id number] [address] [place] [address], [place] [address] 18 Jan, 2013 [facility] [address] [id number] [address] [place] [address], [place] [address] 17 Jan, 2013 [facility] [address] [id number] [address] [place] [address], [place] [address] Jan, [facility] [address] [id number] [address] [place] [address], [place] [address] December, [facility] [address] [id number] [address] [place] [address], [place] [address] December, [facility] [address] [id number] [address] [place] [address], [place] [address] 24 Nov, 2012 [facility] [address] [id number] [address] [place] [address], [place] [address] Nov, [facility] [address] [id number] [address] [place] [address], [place] [address] Nov, [facility] [address] [id number] [address] [place] [address], [place] [address] Nov, [facility] [address] [id number] [address] [place] [address], [place] [address] Nov, [facility] [address] [id number] [address] [place] [address], [place] [address] Nov, [facility] [address] [id number] [address] [place] [address], [place] [address] 03 Nov, 2012 [facility] [address] [id number] [address] [place] [address], [place] [address] 27 Oct, 2012 [facility] [address] [id number] [address] [place] [address], [place] [address] 18 Oct, 2012 [facility] [address] [id number] [address] [place] [address], [place] [address] 14 Oct, 2012 [facility] [address] [id number] [address] [place] [address], [place] [address] 13 Oct, 2012 [facility] [address] [id number] [address] [place] [address], [place] [address] 12 Oct, 2012 [facility] [address] [id number] [address] [place] [address], [place] [address] 11 Oct, 2012 [facility] [address] [id number] [address] [place] [address], [place] [address] 08 Oct, 2012 [facility] [address] [id number] [address] [place] [address], [place] [address] 20 Sep, 2012 [facility] [address] [id number] [address] [place] [address], [place] [address] Sep, [facility] [address] [id number] [address] [place] [address], [place] [address] Aug, [facility] [address] [id number] [address] [place] [address], [place] [address] Aug, [facility] [address] [id number] [address] [place] [address], [place] [address] Jul, [facility] [address] [id number] [address] [place] [address], [place] [address] Jul, [facility] [address] [id number] [address] [place] [address], [place] [address] Jul, [facility] [address] [id number] [address] [place] [address], [place] [address] Jul, [facility] [address] [facility] [id number] [address] [place] [phone] Jul, [facility] [address] [facility] [id number] [address] [place] [phone] Jul, [facility] [address] [facility] [id number] [address] [place] [address] Jul, [facility] [address] [facility] [id number] [address] [place] [phone] Jul, [facility] [address] [facility] [id number] [address] [place] [phone] Jun, [facility] [address] [facility] [id number] [address] [place] [phone] Jun, IMMUNIZATIONS No Known Immunizations SOCIAL HISTORY Never Assessed REASON FOR VISIT Controlled Med Refill PLAN OF CARE VITAL SIGNS MEDICATIONS Medication Instructions Dosage Frequency Start Date End Date Duration S tatus Hydrocodone-Acetaminophen 5-325 MG Orally 3 times a day prn must last 4 weeks 1 Tablet Aug, Active RESULTS No Results PROCEDURES No [...]
--- OUTSIDE RECORDS SUMMARY | 2020-02-11 03:26 | XMS REPORT ---
Author Author АНДРЕЙ Madelineshawn LEONG Organization [facility] Address [address] [place] [address] Care Team Providers Care Regional Hr Manager Name Role Phone JUSTA CHIANGWNYA Unavailable PROBLEMS Type Condition ICD9-CM Code CSD49-LF Code Onset Dates Condition S tatus SNOMED Code Problem Chronic pain G89.29 Active 6971028 1 Problem Pre-diabetes R73.09 Active 2453019 02 Problem Essential hypertension I10 Active 48455816 Problem BMI 45.0-49.9, adult Z68.42 Active 529619997 Problem Numbness and tingling in hands R20.2 Active 591461857 Problem GERD (gastroesophageal reflux disease) K21.9 Active 752608886 Problem Stasis dermatitis of both legs I87.2 Active 17657686 Problem History of abnormal cervical Pap smear Z87.898 Active 262117172 ALLERGIES No Information ENCOUNTERS Encounter Location Date Diagnosis [place] [address] [place] [id number] [place] [address] Feb, [place] [address] [place] [id number] [place] [address] December, Chronic pain G89.29 [place] [address] [place] [id number] [address] [place] [address] Nov, Long-term use of high-risk m edication Z79.899 [place] [id number] [facility] [id number] [address] [place] [address] Nov, Chronic pain G89.29 [place] [address] [facility] [id number] [address] [place] [address] Oct, Chronic pain G89.29 ; Pre-di abetes R73.09 ; Long-term use of high- risk medication Z79.899 ; Allergic rhinitis, unspecified seasonality, unspecified trigger J30.9 ; BMI 45.0-49.9, adult Z68.42 and Essential hypertension I10 [place] [address] [address] Oct, Chronic pain G89.29 [place] [address] [address] Sep, Chronic pain G89.29 [place] [address] [address] Aug, Chronic pain G89.29 [place] [address] [address] Jul, [place] [address] [address] Jul, [place] [address] [address] Jun, Chronic pain G89.29 ; BMI 45 .0-49.9, adult Z68.42 ; Pre-diabetes R73.09 ; Essential hypertension I10 ; GERD (gastroesophageal reflux disease) K21.9 ; Yeast dermatitis B37.2 ; Dysuria R30.0 ; Acute non-recurrent maxillary sinusitis J01.00 and Acute cystitis with hematuria N30.01 [place] [address] [address] Jun, Chronic pain G89.29 [place] [address] [address] Jun, Acute non-recurrent maxillar y sinusitis J01.00 and BMI 45.0-49.9, adult Z68.42 [place] [address] [address] May, [place] [address] [address] May, Chronic pain G89.29 [place] [address] [place] [id number] [place] [address] May, [place] [address] [address] Apr, Chronic pain G89.29 [place] [address] [place] [id number] [place] [address] Mar, [place] [address] [address] Mar, Essential hypertension I10 a nd Pre-diabetes R73.09 [place] [address] [address] 15 Mar, 2017 Chronic pain G89.29 ; Essent ial hypertension I10 ; Depressive disorder, not elsewhere classified F32.9 ; GERD (gastroesophageal reflux disease) K21.9 ; Pre-diabetes R73.09 ; Stasis dermatitis of both legs I87.2 and Acute non-recurrent maxillary sinusitis J01.00 [place] [address] [place] [id number] [place] [address] Mar, Chronic pain G89.29 [place] [address] [address] Mar, Achilles tendinitis of right lower extremity M76.61 and Tinea corporis B35.4 [place] [address] [place] [id number] [place] [address] Feb, Yeast dermatitis B37.2 [place] [address] [place] [id number] [address] [place] [address] 14 Feb, 2017 Candidal intertrigo B37.2 an d Acute right ankle pain M25.571 [place] [address] [place] [id number] [address] [place] [address] 12 Feb, 2017 Chronic pain G89.29 [place] [address] [place] [id number] [place] [address] Jan, [place] [address] [place] [id number] [address] [place] [address] Jan, Chronic pain G89.29 [place] [address] [address] December, Chronic pain G89.29 ; Essent ial hypertension I10 ; Depressive disorder, not elsewhere classified F32.9 ; GERD (gastroesophageal reflux disease) K21.9 ; Pre-diabetes R73.09 ; Screening breast examination Z12.39 ; Stasis dermatitis of both legs I87.2 and Yeast dermatitis B37.2 [place] [address] [place] [address] Nov, Chronic pain G89.29 [place] [address] [place] [address] Nov, Cellulitis of left lower ext remity L03.116 [place] [address] [address] Nov, Cellulitis of left lower ext remity L03.116 [place] [address] [place] [address] Oct, Yeast dermatitis B37.2 [place] [address] [place] [id number] [address] [place] [address] Oct, Chronic pain G89.29 [place] [address] [place] [address] Sep, Chronic pain G89.29 ; Essent ial hypertension I10 ; Depressive disorder, not elsewhere classified F32.9 and GERD (gastroesophageal reflux disease) K21.9 [place] [address] [place] [address] Aug, Chronic pain G89.29 [place] [address] [place] [id number] [place] [address] Aug, Cough R05 ; Rash R21 and Vinay h and nonspecific skin eruption R21 [place] [address] [address] Jul, Chronic pain G89.29 [place] [address] [address] Jun, Chronic pain G89.29 ; Bronch itis J40 ; Essential hypertension I10 ; Depressive disorder, not elsewhere classified F32.9 ; GERD (gastroesophageal reflux disease) K21.9 and History of long-term use of multiple prescription drugs Z92.29 [place] [address] [address] Jun, Bronchitis J40 ; Chills R68. 83 and Sore throat J02.9 [place] [address] [address] May, [place] [address] [address] Apr, [facility] [address] [address] Apr, Acute mucoid otitis media of both ears H65.113 [place] [address] [address] 07 Apr, 2016 Yeast dermatitis B37.2 and H ematuria R31.9 [place] [address] [address] Mar, [place] [address] [address] Mar, [place] [address] [address] Feb, Left anterior knee pain M25. 562 [place] [address] [address] Feb, Chronic pain G89.29 ; Essent ial hypertension I10 ; Depressive disorder, not elsewhere classified F32.9 ; GERD (gastroesophageal reflux disease) K21.9 and History of long-term use of multiple prescription drugs Z92.29 [place] [address] [address] Jan, [address] [address] Jan, Well woman exam Z01.419 ; BM I 45.0-49.9, adult Z68.42 ; Family history of diabetes mellitus Z83.3 and Chronic pain G89.[address] [address] December, Chronic pain G89.29 ; Essent ial hypertension I10 ; Depressive disorder, not elsewhere classified F32.9 ; GERD (gastroesophageal reflux disease) K21.9 ; 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 ; History of long-term use of multiple prescription drugs Z92.29 and Obesity E66.[address] [address] Oct, [address] [address] Oct, Well woman exam Z01.419 ; BM [...] smear Z12.4 and No natural teeth K00.[address] [address] Oct, [address] [address] Sep, Chronic pain G89.29 ; Essent ial hypertension I10 ; GERD (gastroesophageal reflux disease) K21.9 ; 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 ; Skin infection L08.9 and History of long-term use of multiple prescription drugs Z92.29 [facility] [address] [place] [id number] [address] [place] [address] Aug, [facility] [address] [facility] [id number] [address] [place] [address] Jul, [facility] [address] [place] [id number] [address] [place] [address] Jul, [facility] [address] [place] [id number] [place] [address] Jul, Upper respiratory infection J06.9 [place] [address] [place] [id number] [place] [address] Jul, Depressive disorder, not els ewhere classified F32.9 [place] [address] [place] [id number] [place] [address] Jul, Chronic pain 338.29 [place] [address] [place] [id number] [place] [address] Jul, Chronic pain G89.29 [place] [address] [place] [id number] [place] [address] Jun, Poison josep L23.7 [place] [address] [place] [id number] [place] [address] Jun, Allergic contact dermatitis due to plants, except food L23.7 [place] [address] [place] [id number] [address] [place] [address] Jun, Essential hypertension I10 ; Chronic pain G89.29 ; GERD (gastroesophageal reflux disease) K21.9 and Numbness and tingling in hands R20.2 [place] [address] [place] [id number] [address] [place] [address] May, [place] [address] [place] [id number] [address] [place] [address] Apr, [facility] [address] [place] [id number] [place] [address] Mar, [facility] [address] [place] [id number] [place] [address] Feb, Abdominal pain, left lateral 789.09 and Constipation 564.00 [facility] [address] [place] [id number] [place] [address] Feb, Depressive disorder, not els ewhere classified 311 and No condition on [place] V71.09 [facility] [address] [address] Feb, Spider bite 989.5 and Depres homar 311 [place] [address] [address] Feb, [place] [address] [address] Feb, Chronic pain 338.29 ; Arthro zonia 716.90 and GERD (gastroesophageal reflux disease) 530.81 [facility] [address] [place] [id number] [place] [address] Jan, Insect bites 919.4 [place] [address] [address] Jan, [facility] [address] [address] December, Skin infection, bacterial 68 6.9 ; Conjunctivitis 372.30 and Insect bites 919.4 [facility] [address] [place] [id number] [address] [place] [address] December, Chronic pain 338.29 ; Arthro zonia 716.90 ; Skin infection, bacterial 686.9 and Conjunctivitis 372.30 [facility] [address] [place] [id number] [place] [address] December, [facility] [address] [address] Nov, [facility] [address] [id number] [address] [place] [address], [place] [address] Nov, [facility] [address] [id number] [address] [place] [address], [place] [address] Oct, [facility] [address] [id number] [address] [place] [address], [place] [address] Oct, [facility] [address] [id number] [address] [place] [address], [place] [address] Sep, [facility] [address] [id number] [address] [place] [address], [place] [address] Sep, [facility] [address] [id number] [address] [place] [address], [place] [address] Aug, [facility] [address] [id number] [address] [place] [address], [place] [address] Aug, [facility] [address] [id number] [address] [place] [address], [place] [address] Aug, [facility] [address] [id number] [address] [place] [address], [place] [address] Aug, [facility] [address] [id number] [address] [place] [address], [place] [address] Jul, [facility] [address] [id number] [address] [place] [address], [place] [address] Jul, [facility] [address] [id number] [address] [place] [address], [place] [address] Jul, [facility] [address] [id number] [address] [place] [address], [place] [address] Jul, [facility] [address] [id number] [address] [place] [address], [place] [address] Jul, [facility] [address] [id number] [address] [place] [address], [place] [address] Jul, [facility] [address] [id number] [address] [place] [address], [place] [address] Jul, [facility] [address] [id number] [address] [place] [address], [place] [address] Jul, [facility] [address] [id number] [address] [place] [address], [place] [address] Jul, [facility] [address] [id number] [address] [place] [address], [place] [address] Jun, [facility] [address] [id number] [address] [place] [address], [place] [address] Jun, [facility] [address] [id number] [address] [place] [address], [place] [address] Jun, [facility] [address] [id number] [address] [place] [address], [place] [address] Jun, [facility] [address] [id number] [address] [place] [address], [place] [address] Jun, [facility] [address] [id number] [address] [place] [address], [place] [address] Jun, [facility] [address] [id number] [address] [place] [address], [place] [address] Jun, [facility] [address] [id number] [address] [place] [address] Jun, [facility] [address] [id number] [address] [place] [address] May, [facility] [address] [id number] [address] [place] [address] May, [facility] [address] [id number] [address] [place] [address], [place] [address] May, [facility] [address] [id number] [address] [place] [address], [place] [address] May, [facility] [address] [id number] [address] [place] [address] May, [facility] [address] [id number] [address] [place] [address] 26 Apr, 2013 [facility] [address] [id number] [address] [place] [address], [place] [address] 26 Apr, 2013 [facility] [address] [id number] [address] [place] [address], [place] [address] Apr, 2013 [facility] [address] [id number] [address] [place] [address], [place] [address] 25 Apr, 2013 [facility] [address] [id number] [address] [place] [address], [place] [address] 18 Apr, 2013 [facility] [address] [id number] [address] [place] [address], [place] [address] 18 Apr, 2013 [facility] [address] [id number] [address] [place] [address], [place] [address] Apr, 2013 [facility] [address] [id number] [address] [place] [address], [place] [address] Apr, 2013 [facility] [address] [id number] [address] [place] [address], [place] [address] Apr, [facility] [address] [id number] [address] [place] [address], [place] [address] Apr, [facility] [address] [id number] [address] [place] [address], [place] [address] Mar, [facility] [address] [id number] [address] [place] [address], [place] [address] Mar, [facility] [address] [id number] [address] [place] [address], [place] [address] Mar, [facility] [address] [id number] [address] [place] [address], [place] [address] Mar, [facility] [address] [id number] [address] [place] [address], [place] [address] Mar, [facility] [address] [id number] [address] [place] [address], [place] [address] Mar, [facility] [address] [id number] [facility] [place] [address] Feb, [facility] [address] [id number] [address] [place] [address], [place] [address] Feb, [facility] [address] [id number] [address] [place] [address], [place] [address] Jan, [facility] [address] [id number] [address] [place] [address], [place] [address] Jan, [facility] [address] [id number] [address] [place] [address], [place] [address] Jan, [facility] [address] [id number] [address] [place] [address], [place] [address] Jan, [facility] [address] [id number] [address] [place] [address], [place] [address] December, [facility] [address] [id number] [address] [place] [address], [place] [address] December, [facility] [address] [id number] [address] [place] [address], [place] [address] December, [facility] [address] [id number] [address] [place] [address], [place] [address] December, [facility] [address] [id number] [address] [place] [address], [place] [address] December, [facility] [address] [id number] [address] [place] [address], [place] [address] December, [facility] [address] [id number] [address] [place] [address], [place] [address] December, [facility] [address] [id number] [address] [place] [address], [place] [address] December, [facility] [address] [id number] [address] [place] [address], [place] [address] December, [facility] [address] [id number] [address] [place] [address], [place] [address] Nov, [facility] [address] [id number] [address] [place] [address], [place] [address] Nov, [facility] [address] [id number] [address] [place] [address], [place] [address] Nov, [facility] [address] [id number] [address] [place] [address], [place] [address] Nov, [facility] [address] [id number] [address] [place] [address], [place] [address] Nov, [facility] [address] [id number] [address] [place] [address], [place] [address] Nov, [facility] [address] [id number] [address] [place] [address], [place] [address] Nov, [facility] [address] [id number] [address] [place] [address], [place] [address] Nov, [facility] [address] [id number] [address] [place] [address], [place] [address] Nov, [facility] [address] [id number] [address] [place] [address], [place] [address] Nov, [facility] [address] [id number] [address] [place] [address], [place] [address] Oct, [facility] [address] [id number] [address] [place] [address], [place] [address] Oct, [facility] [address] [id number] [address] [place] [address], [place] [address] Sep, [facility] [address] [id number] [address] [place] [address], [place] [address] Sep, [facility] [address] [id number] [address] [place] [address], [place] [address] Aug, [facility] [address] [id number] [address] [place] [address], [place] [address] Aug, [facility] [address] [id number] [address] [place] [address], [place] [address] 16 Aug, 2013 [facility] [address] [id number] [address] [place] [address], [place] [address] Aug, [facility] [address] [id number] [address] [place] [address], [place] [address] Jul, [facility] [address] [id number] [address] [place] [address], [place] [address] Jul, [facility] [address] [id number] [address] [place] [address], [place] [address] Jul, [facility] [address] [id number] [address] [place] [address], [place] [address] Jul, [facility] [address] [id number] [address] [place] [address], [place] [address] Jun, [facility] [address] [id number] [address] [place] [address], [place] [address] Jun, [facility] [address] [id number] [address] [place] [address], [place] [address] May, [facility] [address] [id number] [address] [place] [address], [place] [address] May, [facility] [address] [id number] [address] [place] [address], [place] [address] May, [facility] [address] [id number] [address] [place] [address], [place] [address] May, [facility] [address] [id number] [address] [place] [address], [place] [address] May, [facility] [address] [id number] [address] [place] [address], [place] [address] May, [facility] [address] [id number] [address] [place] [address], [place] [address] 30 Apr, 2013 [facility] [address] [id number] [address] [place] [address], [place] [address] 23 Apr, 2013 [facility] [address] [id number] [address] [place] [address], [place] [address] Apr, [facility] [address] [id number] [address] [place] [address], [place] [address] Feb, [facility] [address] [id number] [address] [place] [address], [place] [address] Jan, [facility] [address] [id number] [address] [place] [address], [place] [address] Jan, [facility] [address] [id number] [address] [place] [address], [place] [address] Jan, [facility] [address] [id number] [address] [place] [address], [place] [address] Jan, [facility] [address] [id number] [address] [place] [address], [place] [address] December, [facility] [address] [id number] [address] [place] [address], [place] [address] December, [facility] [address] [id number] [address] [place] [address], [place] [address] Nov, [facility] [address] [id number] [address] [place] [address], [place] [address] Nov, [facility] [address] [id number] [address] [place] [address], [place] [address] Nov, [facility] [address] [id number] [address] [place] [address], [place] [address] Nov, [facility] [address] [id number] [address] [place] [address], [place] [address] Nov, [facility] [address] [id number] [address] [place] [address], [place] [address] Nov, [facility] [address] [id number] [address] [place] [address], [place] [address] Nov, [facility] [address] [id number] [address] [place] [address], [place] [address] 27 Oct, 2012 [facility] [address] [id number] [address] [place] [address], [place] [address] 18 Oct, 2012 [facility] [address] [id number] [address] [place] [address], [place] [address] 14 Oct, 2012 [facility] [address] [id number] [address] [place] [address], [place] [address] 13 Oct, 2012 [facility] [address] [id number] [address] [place] [address], [place] [address] 12 Oct, 2012 [facility] [address] [id number] [address] [place] [address], [place] [address] 11 Oct, 2012 [facility] [facility] [address] [id number] [address] [place] [address], [place] [address] 08 Oct, 2012 [facility] [address] [id number] [address] [place] [address], [place] [address] 20 Sep, 2012 [facility] [address] [id number] [address] [place] [address], [place] [address] Sep, [facility] [address] [id number] [address] [place] [address], [place] [address] Aug, [facility] [address] [id number] [address] [place] [address], [place] [address] Aug, [facility] [address] [id number] [address] [place] [address], [place] [address] Jul, [facility] [address] [id number] [address] [place] [address], [place] [address] Jul, [facility] [address] [id number] [address] [place] [address], [place] [address] Jul, [facility] [address] [id number] [address] [place] [address], [place] [address] Jul, [facility] [address] [id number] [address] [place] [address], [place] [address] Jul, [facility] [address] [facility] [id number] [address] [place] [phone] Jul, [facility] [address] [facility] [id number] [address] [place] [address] Jul, [facility] [address] [facility] [id number] [address] [place] [address] Jul, [facility] [address] [facility] [id number] [address] [place] [phone] Jun, [facility] [address] [facility] [id number] [address] [place] [phone] Jun, IMMUNIZATIONS No Known Immunizations SOCIAL HISTORY Never Assessed REASON FOR VISIT Controlled Med Refill PLAN OF CARE VITAL SIGNS MEDICATIONS Unknown [...]
--- OUTSIDE RECORDS SUMMARY | 2020-02-11 03:26 | XMS REPORT ---
Author Author Madeline CHIANG [facility] Address [address] [place] [address] Care Team Providers Care Derrickman Helper Name Role Phone DANG CHIANG Unavailable PROBLEMS Type Condition ICD9-CM Code [id number] Code Onset Dates Condition S tatus SNOMED Code Problem Pre-diabetes R73.09 Active 8870826 02 Problem Chronic pain G89.29 Active 4414775 1 Problem Essential hypertension I10 Active 80310319 Problem Hematuria R31.9 Active 47418575 Problem Stasis dermatitis of both legs I87.2 Active 09284014 Problem History of depression Z86.59 Active 635120524 Problem Numbness and tingling in hands R20.2 Active 309889912 Problem GERD (gastroesophageal reflux disease) K21.9 Active 388080562 Problem History of abnormal cervical Pap smear Z87.898 Active 495251217 Problem History of hysterectomy Z90.710 Active 040153837 ALLERGIES No Information SOCIAL HISTORY Never Assessed PLAN OF CARE VITAL SIGNS MEDICATIONS Medication Instructions Dosage Frequency Start Date End Date Duration S tatus Hydrocodone-Acetaminophen 5-325 MG Orally 3 times a day prn must last 4 weeks 1 Tablet Active RESULTS No Results PROCEDURES No Known procedures IMMUNIZATIONS No Known Immunizations MEDICAL (GENERAL) HISTORY [...]
--- OUTSIDE RECORDS SUMMARY | 2020-02-11 03:26 | XMS REPORT ---
Author Author Madeline JAVIER Organization [facility] Address [address] [place] [address] Care Team Providers Care Yarn Worker Name Role Phone TAB JAVIERNETTE Unavailable PROBLEMS Type Condition ICD9-CM Code [id number] Code Onset Dates Condition S tatus SNOMED Code Problem Pre-diabetes R73.09 Active 7008752 02 Problem GERD (gastroesophageal reflux disease) K21.9 Active 125589458 Problem Numbness and tingling in hands R20.2 Active 079991792 Problem Hematuria R31.9 Active 56580341 Problem Stasis dermatitis of both legs I87.2 Active 19984938 Problem History of hysterectomy Z90.710 Active 353537908 Problem Essential hypertension I10 Active 51757571 Problem Chronic pain G89.29 Active 9981944 1 Problem History of depression Z86.59 Active 323124624 Problem History of abnormal cervical Pap smear Z87.898 Active 054111682 ALLERGIES Substance Reaction Event Type Date Status PredniSONE hives Drug Allergy Apr, Active Meloxicam hives Drug Allergy Apr, Active SOCIAL HISTORY No smoking Hx information available PLAN OF CARE Activity Details Follow Up 2 - 3 Days, prn Reason: VITAL SIGNS Height 62 in 2016-04-25 Weight 253.6 lbs 2016-04-25 Temperature 97.9 degrees Fahrenheit 2016-04-25 Heart Rate 70 bpm 2016-04-25 Respiratory Rate 20 2016-04-25 BMI 46.38 kg/m2 2016-04-25 Blood pressure systolic 140 mmHg 2016-04-25 Blood pressure diastolic 90 mmHg 2016-04-25 MEDICATIONS Medication Instructions Dosage Frequency Start Date End Date Duration S tatus Hydrocodone-Acetaminophen 5-325 MG Orally 3 times a day prn must last 4 weeks 1 Tablet Active Indomethacin 50 mg Orally 3 times a day 1 capsule with food or milk 8h Active Albuterol Sulfate 90 mcg/actuation 2 puf fs by Inhalation route every 4-6 hours as needed PRN cough or wheezing Aug, Active Amoxicillin 875 MG Orally every 12 hrs 1 tablet 12h 19 Apr, 201 6 29 Apr, 2016 10 day(s) Active Omeprazole 20 MG TAKE ONE CAPSULE BY MOUTH ONCE DAILY BEFORE A M EAL 30 Active Nrefh-3-qcji Ethyl Esters 1 GM Orally Twice a day 2 capsules 12h Active Nystatin-Triamcinolone 095627-3.1 UNIT/GM Externally Twice a day 1 application to affected area 12h Apr, Active Paroxetine HCl 10 MG Orally Once a day 1 tablet in the morning 24h 30 Active Elavil 25 mg by oral route Once a day 1-2 tablet by O ral route 1 time per day at bedtime 24h Active Hydrochlorothiazide 25 MG Orally Once a day 1 tablet 24h Active Lamisil 250 MG Orally Once a day 1 tablet 24h Apr,Apr, 2 016 14 days Active RESULTS No Results PROCEDURES Procedure Date Ordered Related Diagnosis Body Site Office Visit, Est Pt., Level 3 Apr 25, 2016 IMMUNIZATIONS No Known Immunizations
--- OUTSIDE RECORDS SUMMARY | 2020-02-11 03:26 | XMS REPORT ---
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 Member Name Role Phone DANG CHINAG Unavailable PROBLEMS Type Condition ICD9-CM Code [id number] Code Onset Dates Condition S tatus SNOMED Code Problem Pre-diabetes R73.09 Active 1885801 02 Problem Chronic pain G89.29 Active 8115529 1 Problem Essential hypertension I10 Active 93561028 Problem Hematuria R31.9 Active 66632195 Problem Stasis dermatitis of both legs I87.2 Active 00468624 Problem History of depression Z86.59 Active 617736587 Problem Numbness and tingling in hands R20.2 Active 048862556 Problem GERD (gastroesophageal reflux disease) K21.9 Active 151462714 Problem History of abnormal cervical Pap smear Z87.898 Active 546839943 Problem History of hysterectomy Z90.710 Active 208763229 ALLERGIES Substance Reaction Event Type Date Status PredniSONE hives Drug Allergy Sep, Active Meloxicam hives Drug Allergy Sep, Active Levaquin itching Drug Allergy Sep, Active SOCIAL HISTORY Never Assessed PLAN OF CARE Activity Details Follow Up 3 Months Reason:Pain/HTN VITAL SIGNS Height 62 in 2016-09-29 Weight 259 lbs 2016-09-29 Temperature 98.0 degrees Fahrenheit 2016-09-29 Heart Rate 90 bpm 2016-09-29 Respiratory Rate 20 2016-09-29 BMI 47.37 kg/m2 2016-09-29 Blood pressure systolic 134 mmHg 2016-09-29 Blood pressure diastolic 90 mmHg 2016-09-29 MEDICATIONS Medication Instructions Dosage Frequency Start Date End Date Duration S tatus [id number] Ethyl Esters 1 GM Orally Once a day 1 capsule 24h Active Omeprazole 20 MG TAKE ONE CAPSULE BY MOUTH ONCE DAILY BEFORE A M EAL 30 Active Albuterol Sulfate 90 mcg/actuation 2 puf fs by Inhalation route every 4-6 hours as needed PRN cough or wheezing Active Hydrochlorothiazide 25 MG Orally Once a day 1 tablet 24h Active Omeprazole 20 mg Orally Once a day 1 capsule 24h Active Paroxetine HCl 10 mg Orally Once a day 1 tablet in the morning 24h 30 Active Nystatin-Triamcinolone 959393-4.1 UNIT/GM Externally Twice a day 1 application to affected area 12h 07 Apr, 2016 Active Indomethacin 50 mg Orally 3 times a day 1 capsule with food or milk 8h Active Hydrocodone-Acetaminophen 5-325 MG Orally 3 times [...]
--- OUTSIDE RECORDS SUMMARY | 2020-02-11 03:26 | XMS REPORT ---
Author Author АНДРЕЙ Madelineshawn LEONG Organization [facility] Address [address] [place] [address] Care Team Providers Care Radio Board Operator Announcer Name Role Phone АНДРЕЙ DANG Unavailable PROBLEMS Type Condition ICD9-CM Code HML92-HF Code Onset Dates Condition S tatus SNOMED Code Problem Chronic pain G89.29 Active 5385860 1 Problem Pre-diabetes R73.09 Active 7021006 02 Problem Essential hypertension I10 Active 81593133 Problem BMI 45.0-49.9, adult Z68.42 Active 145438837 Problem Numbness and tingling in hands R20.2 Active 622351088 Problem GERD (gastroesophageal reflux disease) K21.9 Active 337723819 Problem Stasis dermatitis of both legs I87.2 Active 19708150 Problem History of abnormal cervical Pap smear Z87.898 Active 239187399 ALLERGIES No Information ENCOUNTERS Encounter Location Date Diagnosis [place] [address] [address] 12 Nov, 2017 Long-term use of high-risk m edication Z79.899 [place] [address] [address] [place] [id number] [place] [address] Nov, Chronic pain G89.29 [place] [address] [place] [id number] [address] [place] [address] Oct, Chronic pain G89.29 ; Pre-di abetes R73.09 ; Long-term use of high- risk medication Z79.899 ; Allergic rhinitis, unspecified seasonality, unspecified trigger J30.9 ; BMI 45.0-49.9, adult Z68.42 and Essential hypertension I10 [place] [address] [place] [id number] [address] [place] [address] Oct, Chronic pain G89.29 [facility] [address] [facility] [id number] [address] [place] [address] Sep, Chronic pain G89.29 [facility] [address] [place] [id number] [address] [place] [address] Aug, Chronic pain G89.29 [facility] [address] [address] Jul, [facility] [address] [address] Jul, [facility] [address] [place] [id number] [place] [address] Jun, Chronic pain G89.29 ; BMI 45 .0-49.9, adult Z68.42 ; Pre-diabetes R73.09 ; Essential hypertension I10 ; GERD (gastroesophageal reflux disease) K21.9 ; Yeast dermatitis B37.2 ; Dysuria R30.0 ; Acute non-recurrent maxillary sinusitis J01.00 and Acute cystitis with hematuria N30.01 [facility] [address] [place] [id number] [address] [place] [address] Jun, Chronic pain G89.29 [facility] [address] [place] [id number] [place] [address] Jun, Acute non-recurrent maxillar y sinusitis J01.00 and BMI 45.0-49.9, adult Z68.42 [facility] [address] [place] [id number] [place] [address] May, [facility] [address] [place] [id number] [address] [place] [address] May, Chronic pain G89.29 [facility] [address] [place] [id number] [address] [place] [address] May, [facility] [address] [place] [id number] [place] [address] Apr, Chronic pain G89.29 [place] [address] [facility] [id number] [address] [place] [address] Mar, [place] [address] [place] [id number] [place] [address] Mar, Essential hypertension I10 a nd Pre-diabetes R73.09 [place] [address] [place] [id number] [address] [place] [address] 15 Mar, 2017 Chronic pain G89.29 ; Essent ial hypertension I10 ; Depressive disorder, not elsewhere classified F32.9 ; GERD (gastroesophageal reflux disease) K21.9 ; Pre-diabetes R73.09 ; Stasis dermatitis of both legs I87.2 and Acute non-recurrent maxillary sinusitis J01.00 [place] [address] [place] [id number] [address] [place] [address] 11 Mar, 2017 Chronic pain G89.29 [place] [address] [place] [id number] [address] [place] [address] Mar, Achilles tendinitis of right lower extremity M76.61 and Tinea corporis B35.4 [place] [address] [place] [id number] [address] [place] [address] 17 Feb, 2017 Yeast dermatitis B37.2 [place] [address] [facility] [id number] [address] [place] [address] 14 Feb, 2017 Candidal intertrigo B37.2 an d Acute right ankle pain M25.571 [place] [address] [facility] [id number] [address] [place] [address] Feb, Chronic pain G89.29 [place] [address] [facility] [id number] [address] [place] [address] Jan, [place] [address] [place] [id number] [address] [place] [address] Jan, Chronic pain G89.29 [place] [address] [place] [id number] [address] [place] [address] December, Chronic pain G89.29 ; Essent ial hypertension I10 ; Depressive disorder, not elsewhere classified F32.9 ; GERD (gastroesophageal reflux disease) K21.9 ; Pre-diabetes R73.09 ; Screening breast examination Z12.39 ; Stasis dermatitis of both legs I87.2 and Yeast dermatitis B37.2 [place] [address] [facility] [id number] [address] [place] [address] Nov, Chronic pain G89.29 [place] [address] [facility] [id number] [address] [place] [address] Nov, Cellulitis of left lower ext remity L03.116 [place] [address] [facility] [id number] [address] [place] [address] Nov, Cellulitis of left lower ext remity L03.116 [place] [address] [facility] [id number] [address] [place] [address] Oct, Yeast dermatitis B37.2 [place] [address] [facility] [id number] [address] [place] [address] Oct, Chronic pain G89.29 [place] [address] [place] [id number] [address] [place] [address] Sep, Chronic pain G89.29 ; Essent ial hypertension I10 ; Depressive disorder, not elsewhere classified F32.9 and GERD (gastroesophageal reflux disease) K21.9 [place] [address] [place] [id number] [address] [place] [address] Aug, Chronic pain G89.29 [place] [address] [place] [id number] [address] [place] [address] Aug, Cough R05 ; Rash R21 and Vinay h and nonspecific skin eruption R21 [place] [id number] [place] [address] Jul, Chronic pain G89.29 [place] [address] [place] [id number] [address] [place] [address] Jun, Chronic pain G89.29 ; Bronch itis J40 ; Essential hypertension I10 ; Depressive disorder, not elsewhere classified F32.9 ; GERD (gastroesophageal reflux disease) K21.9 and History of long-term use of multiple prescription drugs Z92.29 [place] [address] [address] Jun, Bronchitis J40 ; Chills R68. 83 and Sore throat J02.9 [place] [address] [address] May, [place] [address] [address] Apr, [facility] [address] [address] Apr, Acute mucoid otitis media of both ears H65.113 [place] [address] [address] Apr, Yeast dermatitis B37.2 and H ematuria R31.9 [place] [address] [address] Mar, [place] [address] [address] Mar, [place] [address] [address] Feb, Left anterior knee pain M25. 562 [place] [address] [address] Feb, Chronic pain G89.29 ; Essent ial hypertension I10 ; Depressive disorder, not elsewhere classified F32.9 ; GERD (gastroesophageal reflux disease) K21.9 and History of long-term use of multiple prescription drugs Z92.29 [place] [address] [address] Jan, [place] [address] [address] Jan, Well woman exam Z01.419 ; BM I 45.0-49.9, adult Z68.42 ; Family history of diabetes mellitus Z83.3 and Chronic pain G89.29 [place] [address] [address] December, Chronic pain G89.29 ; Essent ial hypertension I10 ; Depressive disorder, not elsewhere classified F32.9 ; GERD (gastroesophageal reflux disease) K21.9 ; 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 ; History of long-term use of multiple prescription drugs Z92.29 and Obesity E66.9 [place] [address] [address] Oct, [place] [address] [address] Oct, Well woman exam Z01.419 ; BM [...] smear Z12.4 and No natural teeth K00.0 [place] [address] [address] Oct, [address] [address] Sep, Chronic pain G89.29 ; Essent ial hypertension I10 ; GERD (gastroesophageal reflux disease) K21.9 ; 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 ; Skin infection L08.9 and History of long-term use of multiple prescription drugs Z92.29 [place] [address] [address] Aug, [place] [address] [address] Jul, [place] [address] [place] [address] Jul, [place] [id number] [place] [address] Jul, Upper respiratory infection J06.9 [place] [address] [place] [id number] [address] [place] [address] Jul, Depressive disorder, not els ewhere classified F32.9 [place] [address] [place] [id number] [address] [place] [address] Jul, Chronic pain 338.29 [place] [address] [address] Jul, Chronic pain G89.29 [place] [address] [address] Jun, Poison josep L23.7 [place] [address] [address] Jun, Allergic contact dermatitis due to plants, except food L23.7 [place] [address] [address] Jun, Essential hypertension I10 ; Chronic pain G89.29 ; GERD (gastroesophageal reflux disease) K21.9 and Numbness and tingling in hands R20.2 [place] [address] [place] [id number] [place] [address] May, [place] [address] [place] [id number] [address] [place] [address] Apr, [place] [address] [address] Mar, [place] [address] [place] [id number] [address] [place] [address] Feb, Abdominal pain, left lateral 789.09 and Constipation 564.00 [place] [address] [place] [address] [place] [address] Feb, Depressive disorder, not els ewhere classified 311 and No condition on [place] II V71.09 [facility] [address] [address] Feb, Spider bite 989.5 and Depres homar 311 [facility] [address] [address] Feb, [facility] [address] [address] Feb, Chronic pain 338.29 ; Arthro zonia 716.90 and GERD (gastroesophageal reflux disease) 530.81 [facility] [address] [address] Jan, Insect bites 919.4 [facility] [address] [address] Jan, [facility] [address] [address] December, Skin infection, bacterial 68 6.9 ; Conjunctivitis 372.30 and Insect bites 919.4 [facility] [address] [place] [id number] [place] [address] December, Chronic pain 338.29 ; Arthro zonia 716.90 ; Skin infection, bacterial 686.[address] [facility] [address] [place] [id number] [place] [address] December, [facility] [address] [place] [id number] [place] [address] Nov, [facility] [address] [address] Nov, [facility] [address] [place] [id number] [place] [address] Oct, [facility] [address] [place] [id number] [place] [address] Oct, [facility] [address] [id number] [address] [place] [address], [place] [address] Sep, [facility] [address] [id number] [address] [place] [address], [place] [address] Sep, [facility] [address] [id number] [address] [place] [address], [place] [address] Aug, [facility] [address] [id number] [address] [place] [address], [place] [address] Aug, [facility] [address] [id number] [address] [place] [address], [place] [address] Aug, [facility] [address] [id number] [address] [place] [address], [place] [address] Aug, [facility] [address] [id number] [address] [place] [address], [place] [address] Jul, [facility] [address] [id number] [address] [place] [address], [place] [address] Jul, [facility] [address] [id number] [address] [place] [address], [place] [address] Jul, [facility] [address] [id number] [address] [place] [address], [place] [address] Jul, [facility] [address] [id number] [address] [place] [address], [place] [address] Jul, [facility] [address] [id number] [address] [place] [address], [place] [address] Jul, [facility] [address] [id number] [address] [place] [address], [place] [address] Jul, [facility] [address] [id number] [address] [place] [address], [place] [address] Jul, [facility] [address] [id number] [address] [place] [address], [place] [address] Jul, [facility] [place] [facility] [address] [id number] [address] [place] [address], [place] [address] Jun, [facility] [place] [facility] [address] [id number] [address] [place] [address], [place] [address] Jun, [facility] [place] [facility] [address] [id number] [address] [place] [address], [place] [address] Jun, [facility] [place] [facility] [address] [id number] [address] [place] [address], [place] [address] Jun, [facility] [place] [facility] [address] [id number] [address] [place] [address], [place] [address] Jun, [facility] [place] [facility] [address] [id number] [address] [place] [address], [place] [address] Jun, [facility] [place] [facility] [address] [id number] [address] [place] [address], [place] [address] Jun, [facility] [place] [facility] [address] [id number] [address] [place] [address], [place] [address] Jun, [facility] [place] [facility] [address] [id number] [address] [place] [address], [place] [address] May, [facility] [place] [facility] [address] [id number] [address] [place] [address], [place] [address] May, [facility] [place] [facility] [address] [id number] [address] [place] [address], [place] [address] May, [facility] [place] [facility] [address] [id number] [address] [place] [address], [place] [address] May, [facility] [place] [facility] [address] [id number] [address] [place] [address], [place] [address] May, [facility] [place] [facility] [address] [id number] [address] [place] [address], [place] [address] Apr, [facility] [place] [facility] [address] [id number] [address] [place] [address], [place] [address] Apr, [facility] [place] [facility] [address] [id number] [address] [place] [address], [place] [address] Apr, 2013 [facility] [place] [facility] [address] [id number] [address] [place] [address], [place] [address] 25 Apr, 2013 [facility] [place] [facility] [address] [id number] [address] [place] [address], [place] [address] Apr, [facility] [place] [facility] [address] [id number] [address] [place] [address], [place] [address] Apr, 2013 [facility] [place] [facility] [address] [id number] [address] [place] [address], [place] [address] Apr, 2013 [facility] [place] [facility] [address] [id number] [address] [place] [address], [place] [address] Apr, [facility] [place] [facility] [address] [id number] [address] [place] [address], [place] [address] Apr, [facility] [place] [facility] [address] [id number] [address] [place] [address], [place] [address] Apr, [facility] [place] [facility] [address] [id number] [address] [place] [address], [place] [address] Mar, [facility] [place] [facility] [address] [id number] [address] [place] [address], [place] [address] Mar, [facility] [place] [facility] [address] [id number] [address] [place] [address], [place] [address] Mar, [facility] [place] [facility] [address] [id number] [address] [place] [address], [place] [address] Mar, [facility] [place] [facility] [address] [id number] [address] [place] [address], [place] [address] Mar, [facility] [place] [facility] [address] [id number] [address] [place] [address], [place] [address] Mar, [facility] [place] [facility] [address] [id number] [address] [place] [address], [place] [address] Feb, [facility] [place] [facility] [address] [id number] [address] [place] [address], [place] [address] Feb, [facility] [place] [facility] [address] [id number] [address] [place] [address], [place] [address] Jan, [facility] [address] [id number] [address] [place] [address], [place] [address] Jan, [facility] [address] [id number] [address] [place] [address], [place] [address] Jan, [facility] [address] [id number] [address] [place] [address], [place] [address] Jan, [facility] [address] [id number] [address] [place] [address], [place] [address] December, [facility] [address] [id number] [address] [place] [address], [place] [address] December, [facility] [address] [id number] [address] [place] [address], [place] [address] December, [facility] [address] [id number] [address] [place] [address], [place] [address] December, [facility] [address] [id number] [address] [place] [address], [place] [address] December, [facility] [address] [id number] [address] [place] [address], [place] [address] December, [facility] [address] [id number] [address] [place] [address], [place] [address] December, [facility] [address] [id number] [address] [place] [address], [place] [address] December, [facility] [address] [id number] [address] [place] [address], [place] [address] December, [facility] [address] [id number] [address] [place] [address], [place] [address] Nov, [facility] [address] [id number] [address] [place] [address], [place] [address] Nov, [facility] [address] [id number] [address] [place] [address], [place] [address] Nov, [facility] [address] [id number] [address] [place] [address], [place] [address] Nov, [facility] [address] [id number] [address] [place] [address], [place] [address] Nov, [facility] [address] [id number] [address] [place] [address], [place] [address] Nov, [facility] [address] [id number] [address] [place] [address], [place] [address] Nov, [facility] [address] [id number] [address] [place] [address], [place] [address] Nov, [facility] [address] [id number] [address] [place] [address], [place] [address] Nov, [facility] [address] [id number] [address] [place] [address], [place] [address] Nov, [facility] [address] [id number] [address] [place] [address], [place] [address] Oct, [facility] [address] [id number] [address] [place] [address], [place] [address] Oct, [facility] [address] [id number] [address] [place] [address], [place] [address] Sep, [facility] [address] [id number] [address] [place] [address], [place] [address] Sep, [facility] [address] [id number] [address] [place] [address], [place] [address] Aug, [facility] [address] [id number] [address] [place] [address], [place] [address] Aug, [facility] [address] [id number] [address] [place] [address], [place] [address] Aug, [facility] [address] [id number] [address] [place] [address], [place] [address] Aug, [facility] [address] [id number] [address] [place] [address] Jul, [facility] [address] [id number] [address] [place] [address], [place] [address] Jul, [facility] [address] [id number] [address] [place] [address], [place] [address] Jul, [facility] [address] [id number] [address] [place] [address], [place] [address] Jul, [facility] [address] [id number] [address] [place] [address], [place] [address] Jun, [facility] [address] [id number] [address] [place] [address], [place] [address] Jun, [facility] [address] [id number] [address] [place] [address], [place] [address] May, [facility] [address] [id number] [address] [place] [address], [place] [address] May, [facility] [address] [id number] [address] [place] [address], [place] [address] May, [facility] [address] [id number] [address] [place] [address], [place] [address] May, [facility] [address] [id number] [address] [place] [address] May, [facility] [address] [id number] [address] [place] [address], [place] [address] May, [facility] [address] [id number] [address] [place] [address] 30 Apr, 2013 [facility] [address] [id number] [address] [place] [address], [place] [address] 23 Apr, 2013 [facility] [address] [id number] [address] [place] [address], [place] [address] Apr, [facility] [address] [id number] [address] [place] [address], [place] [address] Feb, [facility] [address] [id number] [address] [place] [address], [place] [address] 27 Jan, 2013 [facility] [address] [id number] [address] [place] [address], [place] [address] 18 Jan, 2013 [facility] [address] [id number] [address] [place] [address], [place] [address] 17 Jan, 2013 [facility] [address] [id number] [address] [place] [address], [place] [address] 14 Jan, 2013 [facility] [address] [id number] [address] [place] [address], [place] [address] December, [facility] [address] [id number] [address] [place] [address], [place] [address] December, [facility] [address] [id number] [address] [place] [address], [place] [address] 24 Nov, [address] [facility] [address] [id number] [address] [place] [address], [place] [address] 23 Nov, [address] [facility] [address] [id number] [address] [place] [address], [place] [address] Nov, [facility] [address] [id number] [address] [place] [address], [place] [address] Nov, [facility] [address] [id number] [address] [place] [address], [place] [address] 08 Nov, [address] [facility] [address] [id number] [address] [place] [address], [place] [address] 08 Nov, [address] [facility] [address] [id number] [address] [place] [address], [place] [address] 03 Nov, 2012 [facility] [address] [id number] [address] [place] [address], [place] [address] 27 Oct, 2012 [facility] [address] [id number] [address] [place] [address], [place] [address] 18 Oct, 2012 [facility] [address] [id number] [address] [place] [address], [place] [address] 14 Oct, 2012 [facility] [address] [id number] [address] [place] [address], [place] [address] 13 Oct, 2012 [facility] [address] [id number] [address] [place] [address], [place] [address] 12 Oct, 2012 [facility] [address] [id number] [address] [place] [address], [place] [address] 11 Oct, 2012 [facility] [address] [id number] [address] [place] [address], [place] [address] 08 Oct, 2012 [facility] [address] [id number] [address] [place] [address], [place] [address] 20 Sep, 2012 [facility] [address] [id number] [address] [place] [address], [place] [address] Sep, [facility] [address] [id number] [address] [place] [address], [place] [address] Aug, [facility] [address] [id number] [address] [place] [address], [place] [address] Aug, [facility] [address] [id number] [address] [place] [address], [place] [address] Jul, [facility] [address] [id number] [address] [place] [address], [place] [address] Jul, [facility] [address] [id number] [address] [place] [address], [place] [address] Jul, [facility] [address] [id number] [address] [place] [address], [place] [address] Jul, [facility] [address] [id number] [address] [place] [address], [place] [address] Jul, [facility] [address] [id number] [address] [place] [address], [place] [address] Jul, [facility] [address] [id number] [address] [place] [address], [place] [address] Jul, [facility] [address] [id number] [address] [place] [address] Jul, [facility] [address] [facility] [id number] [address] [place] [id number] Jun, [facility] [address] [facility] [id number] [address] [place] [id number] Jun, IMMUNIZATIONS No Known Immunizations SOCIAL HISTORY [...]
--- OUTSIDE RECORDS SUMMARY | 2020-02-11 03:27 | XMS REPORT ---
Author Author Madeline MANCUSO Organization [facility] Address [address] [place] [address] Care Team Providers Care Loading Unit Operator Name Role Phone AJSON MANCUSO Unavailable PROBLEMS Type Condition ICD9-CM Code CFB26-QS Code Onset Dates Condition S tatus SNOMED Code Problem Chronic pain G89.29 Active 2174959 1 Problem Pre-diabetes R73.09 Active 8223092 02 Problem Essential hypertension I10 Active 71687271 Problem BMI 45.0-49.9, adult Z68.42 Active 790049977 Problem Numbness and tingling in hands R20.2 Active 212129797 Problem GERD (gastroesophageal reflux disease) K21.9 Active 087115920 Problem Stasis dermatitis of both legs I87.2 Active 26924158 Problem History of abnormal cervical Pap smear Z87.898 Active 324030252 ALLERGIES Substance Reaction Event Type Date Status PredniSONE hives Drug Allergy Mar, Active Meloxicam hives Drug Allergy Mar, Active Levaquin itching Drug Allergy Mar, Active ENCOUNTERS Encounter Location Date Diagnosis [facility] [address] [facility] [id number] [address] [place] [address] Oct, Chronic pain G89.29 ; Pre-di abetes R73.09 ; Long-term use of high- risk medication Z79.899 ; Allergic rhinitis, unspecified seasonality, unspecified trigger J30.9 ; BMI 45.0-49.9, adult Z68.42 and Essential hypertension I10 [facility] [address] [facility] [id number] [address] [place] [address] Oct, Chronic pain G89.29 [facility] [address] [facility] [id number] [address] [place] [address] Sep, Chronic pain G89.29 [facility] [address] [place] [id number] [place] [address] Aug, Chronic pain G89.29 [facility] [address] [place] [id number] [place] [address] Jul, [facility] [address] [place] [id number] [place] [address] Jul, [facility] [address] [address] Jun, Chronic pain G89.29 ; BMI 45 .0-49.9, adult Z68.42 ; Pre-diabetes R73.09 ; Essential hypertension I10 ; GERD (gastroesophageal reflux disease) K21.9 ; Yeast dermatitis B37.2 ; Dysuria R30.0 ; Acute non-recurrent maxillary sinusitis J01.00 and Acute cystitis with hematuria N30.01 [place] [address] [address] Jun, Chronic pain G89.29 [facility] [address] [address] Jun, Acute non-recurrent maxillar y sinusitis J01.00 and BMI 45.0-49.9, adult Z68.42 [place] [address] [address] May, [facility] [address] [address] May, Chronic pain G89.29 [facility] [address] [place] [id number] [place] [address] May, [facility] [address] [address] Apr, Chronic pain G89.29 [facility] [address] [place] [id number] [address] [place] [address] Mar, [place] [address] [address] Mar, Essential hypertension I10 a nd Pre-diabetes R73.09 [place] [address] [place] [address] 15 Mar, 2017 Chronic pain G89.29 ; Essent ial hypertension I10 ; Depressive disorder, not elsewhere classified F32.9 ; GERD (gastroesophageal reflux disease) K21.9 ; Pre-diabetes R73.09 ; Stasis dermatitis of both legs I87.2 and Acute non-recurrent maxillary sinusitis J01.00 [place] [address] [place] [address] 11 Mar, 2017 Chronic pain G89.29 [place] [address] [address] 07 Mar, 2017 Achilles tendinitis of right lower extremity M76.61 and Tinea corporis B35.4 [place] [address] [place] [id number] [address] [place] [address] 17 Feb, 2017 Yeast dermatitis B37.2 [place] [address] [place] [id number] [address] [place] [address] 14 Feb, 2017 Candidal intertrigo B37.2 an d Acute right ankle pain M25.571 [place] [address] [place] [id number] [address] [place] [address] 12 Feb, 2017 Chronic pain G89.29 [place] [address] [place] [address] 16 Jan, 2017 [place] [address] [place] [id number] [address] [place] [address] Jan, Chronic pain G89.29 [place] [address] [address] December, Chronic pain G89.29 ; Essent ial hypertension I10 ; Depressive disorder, not elsewhere classified F32.9 ; GERD (gastroesophageal reflux disease) K21.9 ; Pre-diabetes R73.09 ; Screening breast examination Z12.39 ; Stasis dermatitis of both legs I87.2 and Yeast dermatitis B37.2 [place] [address] [place] [address] Nov, Chronic pain G89.29 [place] [address] [address] Nov, Cellulitis of left lower ext remity L03.116 [place] [address] [address] Nov, Cellulitis of left lower ext remity L03.116 [place] [address] [place] [address] Oct, Yeast dermatitis B37.2 [place] [address] [address] Oct, Chronic pain G89.29 [place] [address] [address] Sep, Chronic pain G89.29 ; Essent ial hypertension I10 ; Depressive disorder, not elsewhere classified F32.9 and GERD (gastroesophageal reflux disease) K21.9 [place] [address] [address] Aug, Chronic pain G89.29 [place] [address] [address] Aug, Cough R05 ; Rash R21 and Vinay h and nonspecific skin eruption R21 [place] [address] [address] Jul, Chronic pain G89.29 [place] [address] [address] Jun, Chronic pain G89.29 ; Bronch itis J40 ; Essential hypertension I10 ; Depressive disorder, not elsewhere classified F32.9 ; GERD (gastroesophageal reflux disease) K21.9 and History of long-term use of multiple prescription drugs Z92.29 [place] [address] [address] Jun, Bronchitis J40 ; Chills R68. 83 and Sore throat J02.9 [place] [address] [address] May, [facility] [address] [address] Apr, [facility] [address] [address] Apr, Acute mucoid otitis media of both ears H65.113 [place] [address] [address] Apr, Yeast dermatitis B37.2 and H ematuria R31.9 [place] [address] [address] Mar, [place] [address] [address] Mar, [facility] [address] [address] Feb, Left anterior knee pain M25. 562 [place] [address] [address] Feb, Chronic pain G89.29 ; Essent ial hypertension I10 ; Depressive disorder, not elsewhere classified F32.9 ; GERD (gastroesophageal reflux disease) K21.9 and History of long-term use of multiple prescription drugs Z92.29 [place] [address] [address] Jan, [place] [address] [address] Jan, Well woman exam Z01.419 ; BM I 45.0-49.9, adult Z68.42 ; Family history of diabetes mellitus Z83.3 and Chronic pain G89.29 [place] [address] [address] December, Chronic pain G89.29 ; Essent ial hypertension I10 ; Depressive disorder, not elsewhere classified F32.9 ; GERD (gastroesophageal reflux disease) K21.9 ; 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 ; History of long-term use of multiple prescription drugs Z92.29 and Obesity E66.9 [place] [address] [address] Oct, [place] [address] [address] Oct, Well woman exam Z01.419 ; BM [...] smear Z12.4 and No natural teeth K00.0 [place] [address] [address] Oct, [place] [address] [address] Sep, Chronic pain G89.29 ; Essent ial hypertension I10 ; GERD (gastroesophageal reflux disease) K21.9 ; 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 ; Skin infection L08.9 and History of long-term use of multiple prescription drugs Z92.29 [place] [address] [address] Aug, [place] [address] [address] Jul, [place] [address] [address] Jul, [place] [address] [address] 09 Jul, 2015 Upper respiratory infection J06.9 [facility] [address] [id number] [address] [place] [address] Jul, Depressive disorder, not els ewhere classified F32.9 [facility] [address] [facility] [id number] [address] [place] [address] Jul, Chronic pain 338.29 [facility] [address] [facility] [id number] [address] [place] [address] Jul, Chronic pain G89.29 [place] [address] [facility] [id number] [address] [place] [address] Jun, Poison josep L23.7 [place] [address] [facility] [id number] [address] [place] [address] Jun, Allergic contact dermatitis due to plants, except food L23.7 [place] [address] [facility] [id number] [address] [place] [address] Jun, Essential hypertension I10 ; Chronic pain G89.29 ; GERD (gastroesophageal reflux disease) K21.9 and Numbness and tingling in hands R20.2 [place] [address] [facility] [id number] [address] [place] [address] May, [place] [address] [facility] [id number] [address] [place] [address] Apr, [facility] [address] [facility] [id number] [address] [place] [address] Mar, [facility] [address] [facility] [id number] [address] [place] [address] Feb, Abdominal pain, left lateral 789.09 and Constipation 564.00 [place] [address] [facility] [id number] [address] [place] [address] Feb, Depressive disorder, not els ewhere classified 311 and No condition on [place] II V71.09 [place] [address] [facility] [id number] [address] [place] [address] Feb, Spider bite 989.5 and Depres homar 311 [facility] [address] [place] [id number] [address] [place] [address] Feb, [facility] [address] [place] [id number] [address] [place] [address] Feb, Chronic pain 338.29 ; Arthro zonia 716.90 and GERD (gastroesophageal reflux disease) 530.81 [facility] [address] [place] [id number] [address] [place] [address] Jan, Insect bites 919.4 [facility] [address] [address] Jan, [facility] [address] [place] [id number] [address] [place] [address] December, Skin infection, bacterial 68 6.9 ; Conjunctivitis 372.30 and Insect bites 919.4 [facility] [address] [place] [id number] [address] [place] [address] December, Chronic pain 338.29 ; Arthro zonia 716.90 ; Skin infection, bacterial 686.9 and Conjunctivitis 372.30 [facility] [address] [place] [address] December, [facility] [address] [place] [address] Nov, [facility] [address] [place] [id number] [address] [place] [address] Nov, [facility] [address] [place] [address] Oct, [facility] [address] [place] [id number] [address] [place] [address] Oct, [facility] [address] [place] [address] Sep, [facility] [address] [id number] [address] [place] [address], [place] [address] Sep, [facility] [address] [id number] [address] [place] [address], [place] [address] Aug, [facility] [address] [id number] [address] [place] [address], [place] [address] Aug, [facility] [address] [id number] [address] [place] [address], [place] [address] Aug, [facility] [address] [id number] [address] [place] [address], [place] [address] Aug, [facility] [address] [id number] [address] [place] [address], [place] [address] Jul, [facility] [address] [id number] [address] [place] [address], [place] [address] Jul, [facility] [address] [id number] [address] [place] [address], [place] [address] Jul, [facility] [address] [id number] [address] [place] [address], [place] [address] Jul, [facility] [address] [id number] [address] [place] [address], [place] [address] Jul, [facility] [address] [id number] [address] [place] [address], [place] [address] Jul, [facility] [address] [id number] [address] [place] [address], [place] [address] Jul, [facility] [address] [id number] [address] [place] [address], [place] [address] Jul, [facility] [address] [id number] [address] [place] [address], [place] [address] Jul, [facility] [address] [id number] [address] [place] [address], [place] [address] Jun, [facility] [address] [id number] [address] [place] [address], [place] [address] Jun, [facility] [address] [id number] [address] [place] [address], [place] [address] Jun, [facility] [address] [id number] [address] [place] [address], [place] [address] Jun, [facility] [address] [id number] [address] [place] [address], [place] [address] Jun, [facility] [address] [id number] [address] [place] [address], [place] [address] Jun, [facility] [address] [id number] [address] [place] [address], [place] [address] Jun, [facility] [address] [id number] [address] [place] [address], [place] [address] Jun, [facility] [address] [id number] [address] [place] [address], [place] [address] May, [facility] [address] [id number] [address] [place] [address], [place] [address] May, [facility] [address] [id number] [address] [place] [address], [place] [address] May, [facility] [address] [id number] [address] [place] [address], [place] [address] May, [facility] [address] [id number] [address] [place] [address], [place] [address] May, [facility] [address] [id number] [address] [place] [address] Apr, [facility] [address] [id number] [address] [place] [address], [place] [address] Apr, [facility] [address] [id number] [address] [place] [address], [place] [address] Apr, [facility] [address] [id number] [address] [place] [address], [place] [address] Apr, [facility] [address] [id number] [address] [place] [address], [place] [address] 18 Apr, 2013 [facility] [address] [id number] [address] [place] [address], [place] [address] 18 Apr, 2013 [facility] [address] [id number] [address] [place] [address], [place] [address] 18 Apr, 2014 [facility] [address] [id number] [address] [place] [address], [place] [address] 18 Apr, 2014 [facility] [address] [id number] [address] [place] [address], [place] [address] Apr, [facility] [address] [id number] [address] [place] [address], [place] [address] Apr, [facility] [address] [id number] [address] [place] [address], [place] [address] Mar, [facility] [address] [id number] [address] [place] [address], [place] [address] Mar, [facility] [address] [id number] [address] [place] [address], [place] [address] Mar, [facility] [address] [id number] [address] [place] [address], [place] [address] Mar, [facility] [address] [id number] [address] [place] [address], [place] [address] Mar, [facility] [address] [id number] [address] [place] [address], [place] [address] Mar, [facility] [address] [id number] [address] [place] [address], [place] [address] Feb, [facility] [address] [id number] [address] [place] [address], [place] [address] Feb, [facility] [address] [id number] [address] [place] [address], [place] [address] Jan, [facility] [address] [id number] [address] [place] [address], [place] [address] Jan, [facility] [address] [id number] [address] [place] [address], [place] [address] Jan, [facility] [address] [id number] [address] [place] [address], [place] [address] Jan, [facility] [address] [id number] [address] [place] [address], [place] [address] December, [facility] [address] [id number] [address] [place] [address], [place] [address] December, [facility] [address] [id number] [address] [place] [address], [place] [address] December, [facility] [address] [id number] [address] [place] [address], [place] [address] December, [facility] [address] [id number] [address] [place] [address], [place] [address] December, [facility] [address] [id number] [address] [place] [address], [place] [address] December, [facility] [address] [id number] [address] [place] [address], [place] [address] December, [facility] [address] [id number] [address] [place] [address], [place] [address] December, [facility] [address] [id number] [address] [place] [address], [place] [address] December, [facility] [address] [id number] [address] [place] [address], [place] [address] Nov, [facility] [address] [id number] [address] [place] [address], [place] [address] Nov, [facility] [address] [id number] [address] [place] [address], [place] [address] Nov, [facility] [address] [id number] [address] [place] [address], [place] [address] Nov, [facility] [address] [id number] [address] [place] [address], [place] [address] Nov, [facility] [address] [id number] [address] [place] [address], [place] [address] Nov, [facility] [address] [id number] [address] [place] [address], [place] [address] Nov, [facility] [address] [id number] [address] [place] [address], [place] [address] Nov, [facility] [address] [id number] [address] [place] [address], [place] [address] Nov, [facility] [address] [id number] [address] [place] [address], [place] [address] Nov, [facility] [address] [id number] [address] [place] [address], [place] [address] Oct, [facility] [address] [id number] [address] [place] [address], [place] [address] Oct, [facility] [address] [id number] [address] [place] [address], [place] [address] Sep, [facility] [address] [id number] [address] [place] [address], [place] [address] Sep, [facility] [address] [id number] [address] [place] [address], [place] [address] Aug, [facility] [address] [id number] [address] [place] [address], [place] [address] Aug, [facility] [address] [id number] [address] [place] [address], [place] [id number] Aug, [facility] [address] [id number] [address] [place] [address], [place] [id number] Aug, [facility] [address] [id number] [address] [place] [address], [place] [id number] Jul, [facility] [address] [id number] [address] [place] [address], [place] [address] Jul, [facility] [address] [id number] [address] [place] [address], [place] [address] Jul, [facility] [address] [id number] [address] [place] [address], [place] [id number] Jul, [facility] [address] [id number] [address] [place] [address], [place] [id number] Jun, [facility] [address] [id number] [address] [place] [address], [place] [id number] Jun, [facility] [address] [id number] [address] [place] [address], [place] [id number] May, [facility] [address] [id number] [address] [place] [address], [place] [address] May, [facility] [address] [id number] [address] [place] [address], [place] [address] May, [facility] [address] [id number] [address] [place] [address], [place] [address] May, [facility] [address] [id number] [address] [place] [address], [place] [address] May, [facility] [address] [id number] [address] [place] [address], [place] [address] May, [facility] [address] [id number] [address] [place] [address], [place] [id number] 30 Apr, 2013 [facility] [address] [id number] [address] [place] [address], [place] [id number] 23 Apr, 2013 [facility] [address] [id number] [address] [place] [address], [place] [address] Apr, [facility] [address] [id number] [address] [place] [address], [place] [id number] Feb, [facility] [address] [id number] [address] [place] [address], [place] [address] Jan, [facility] [address] [id number] [address] [place] [address], [place] [id number] Jan, [facility] [address] [id number] [address] [place] [address], [place] [id number] 17 Jan, 2013 [facility] [address] [id number] [address] [place] [address], [place] [address] 14 Jan, 2013 [facility] [address] [id number] [address] [place] [address], [place] [address] December, [facility] [address] [id number] [address] [place] [address], [place] [address] December, [facility] [address] [id number] [address] [place] [address], [place] [id number] 24 Nov, 2012 [facility] [address] [id number] [address] [place] [address], [place] [id number] Nov, [facility] [address] [id number] [address] [place] [address], [place] [id number] Nov, [facility] [address] [id number] [address] [place] [address], [place] [address] Nov, [facility] [address] [id number] [address] [place] [address], [place] [address] Nov, [facility] [address] [id number] [address] [place] [address], [place] [address] Nov, [facility] [address] [id number] [address] [place] [address], [place] [address] Nov, [facility] [address] [id number] [address] [place] [address], [place] [id number] 27 Oct, 2012 [facility] [address] [id number] [address] [place] [address], [place] [address] 18 Oct, 2012 [facility] [address] [id number] [address] [place] [address], [place] [id number] 14 Oct, 2012 [facility] [address] [id number] [address] [place] [address], [place] [id number] 13 Oct, 2012 [facility] [address] [id number] [address] [place] [id number] Oct, [facility] [address] [id number] [address] [place] [address], [place] [id number] Oct, [facility] [address] [id number] [address] [place] [address], [place] [address] Oct, [facility] [address] [id number] [address] [place] [address], [place] [id number] Sep, [facility] [address] [id number] [address] [place] [address], [place] [address] Sep, [facility] [address] [id number] [address] [place] [address], [place] [address] Aug, [facility] [address] [id number] [address] [place] [address], [place] [id number] Aug, [facility] [address] [id number] [address] [place] [address], [place] [address] Jul, [facility] [address] [id number] [address] [place] [address], [place] [address] Jul, [facility] [address] [id number] [address] [place] [address], [place] [id number] Jul, [facility] [address] [id number] [address] [place] [address], [place] [address] Jul, [facility] [address] [id number] [address] [place] [address], [place] [address] Jul, [facility] [address] [id number] [address] [place] [address], [place] [address] Jul, [facility] [address] [id number] [address] [place] [address], [place] [address] Jul, [facility] [address] [id number] [address] [place] [address], [place] [address] Jul, [facility] [address] [id number] [address] [place] [address], [place] [address] Jun, [facility] [address] [facility] [id number] [address] [place] [address] Jun, IMMUNIZATIONS No Known Immunizations SOCIAL HISTORY Never Assessed REASON FOR VISIT Rash under the stomach and groin area- Matt PRITCHETT, PT also has complaints about pain in her right angle from a fall yesterday PLAN OF CARE VITAL SIGNS Height 62 in 2017-03-13 Weight 256.8 lbs 2017-03-13 Temperature 97.8 degrees Fahrenheit 2017-03-13 Heart Rate 78 bpm 2017-03-13 Respiratory Rate 18 2017-03-13 BMI 46.96 kg/m2 2017-03-13 Blood pressure systolic 128 mmHg 2017-03-13 Blood pressure diastolic 82 mmHg 2017-03-13 MEDICATIONS Medication Instructions Dosage Frequency Start Date End Date Duration S tatus Paroxetine HCl 10 mg Orally Once a day 1 tablet in the morning 24h 30 Active Hydrochlorothiazide 25 MG Orally Once a day 1 tablet 24h Active Euood-1-fsyz Ethyl Esters 1 GM Orally Once a day 1 capsule 24h Active Nystatin 411314 UNIT/GM Externally Twice a day 1 application to affected area 12h Feb, Active Omeprazole 20 MG TAKE ONE CAPSULE BY MOUTH ONCE DAILY BEFORE A M EAL 30 Active Indomethacin 50 mg Orally 3 times a day 1 capsule with food or milk 8h Active PredniSONE 20 mg Orally Once a day 2 tablets 24h Mar, Mar, 05 days Active Ketoconazole 2 % Externally Once a day 1 application to affected ar ea 24h Mar, Active Albuterol Sulfate 90 mcg/actuation 2 puf fs by Inhalation route every 4-6 hours as needed PRN cough or wheezing Active Nabumetone 500 mg Orally Twice a day 1 tablet 12h Mar, Jun, 30 day(s) Active Hydrocodone-Acetaminophen 5-325 MG Orally 3 times [...]
--- OUTSIDE RECORDS SUMMARY | 2020-02-11 03:27 | XMS REPORT ---
Author Author Madeline CHIANG [facility] Address [address] [place] [address] Care Team Providers Care Contact Center Engineer Name Role Phone DANG CHIANG Unavailable PROBLEMS Type Condition ICD9-CM Code GZW90-QH Code Onset Dates Condition S tatus SNOMED Code Problem Pre-diabetes R73.09 Active 0335293 02 Problem GERD (gastroesophageal reflux disease) K21.9 Active 748676543 Problem Numbness and tingling in hands R20.2 Active 913997958 Problem Hematuria R31.9 Active 83651932 Problem Stasis dermatitis of both legs I87.2 Active 93257947 Problem History of hysterectomy Z90.710 Active 648891356 Problem Essential hypertension I10 Active 03327384 Problem Chronic pain G89.29 Active 5188264 1 Problem History of depression Z86.59 Active 304769385 Problem History of abnormal cervical Pap smear Z87.898 Active 742119536 ALLERGIES No Known Allergies SOCIAL HISTORY No smoking Hx information available PLAN OF CARE VITAL SIGNS MEDICATIONS Medication Instructions Dosage Frequency Start Date End Date Duration S tatus Hydrocodone-Acetaminophen 5-325 MG Orally 3 times a day prn must last 4 weeks 1 Tablet Active RESULTS No Results PROCEDURES No Known procedures IMMUNIZATIONS No Known Immunizations
--- OUTSIDE RECORDS SUMMARY | 2020-02-11 03:27 | XMS REPORT ---
Author Author CHEMA Madeline ROWLAND Organization [facility] Address [address] [place] [address] Care Team Providers Care Flight Instructor Name Role Phone KASHIF BEAR Unavailable PROBLEMS Type Condition ICD9-CM Code EKR53-OR Code Onset Dates Condition S tatus SNOMED Code Problem Chronic pain G89.29 Active 8440171 1 Problem Pre-diabetes R73.09 Active 1784987 02 Problem Essential hypertension I10 Active 84778480 Problem BMI 45.0-49.9, adult Z68.42 Active 783273538 Problem Numbness and tingling in hands R20.2 Active 271312485 Problem GERD (gastroesophageal reflux disease) K21.9 Active 899990739 Problem Stasis dermatitis of both legs I87.2 Active 41715428 Problem History of abnormal cervical Pap smear Z87.898 Active 041197363 ALLERGIES Substance Reaction Event Type Date Status PredniSONE hives Drug Allergy Jun, Active Meloxicam hives Drug Allergy Jun, Active Levaquin itching Drug Allergy Jun, Active ENCOUNTERS Encounter Location Date Diagnosis [place] [address] [address] [facility] [id number] [address] [place] [address] December, Chronic pain G89.29 [place] [address] [place] [id number] [address] [place] [address] Nov, Long-term use of high-risk m edication Z79.899 [place] [address] [address] [facility] [id number] [address] [place] [address] Nov, Chronic pain G89.29 [place] [address] [place] [id number] [address] [place] [address] Oct, Chronic pain G89.29 ; Pre-di abetes R73.09 ; Long-term use of high- risk medication Z79.899 ; Allergic rhinitis, unspecified seasonality, unspecified trigger J30.9 ; BMI 45.0-49.9, adult Z68.42 and Essential hypertension I10 [place] [address] [place] [id number] [place] [address] Oct, Chronic pain G89.29 [place] [address] [place] [id number] [address] [place] [address] Sep, Chronic pain G89.29 [place] [address] [place] [id number] [place] [address] Aug, Chronic pain G89.29 [place] [address] [address] Jul, [place] [address] [place] [id number] [place] [address] Jul, [place] [address] [address] Jun, Chronic pain G89.29 ; BMI 45 .0-49.9, adult Z68.42 ; Pre-diabetes R73.09 ; Essential hypertension I10 ; GERD (gastroesophageal reflux disease) K21.9 ; Yeast dermatitis B37.2 ; Dysuria R30.0 ; Acute non-recurrent maxillary sinusitis J01.00 and Acute cystitis with hematuria N30.01 [place] [address] [address] Jun, Chronic pain G89.29 [place] [address] [place] [id number] [place] [address] Jun, Acute non-recurrent maxillar y sinusitis J01.00 and BMI 45.0-49.9, adult Z68.42 [place] [address] [place] [id number] [address] [place] [address] May, [place] [address] [place] [id number] [place] [address] May, Chronic pain G89.29 [place] [address] [address] [facility] [id number] [address] [place] [address] May, [place] [address] [address] Apr, Chronic pain G89.29 [place] [address] [place] [id number] [address] [place] [address] Mar, [place] [address] [address] Mar, Essential hypertension I10 a nd Pre-diabetes R73.09 [place] [address] [address] Mar, Chronic pain G89.29 ; Essent ial hypertension I10 ; Depressive disorder, not elsewhere classified F32.9 ; GERD (gastroesophageal reflux disease) K21.9 ; Pre-diabetes R73.09 ; Stasis dermatitis of both legs I87.2 and Acute non-recurrent maxillary sinusitis J01.00 [place] [address] [place] [id number] [address] [place] [address] Mar, Chronic pain G89.29 [place] [address] [address] Mar, Achilles tendinitis of right lower extremity M76.61 and Tinea corporis B35.4 [place] [address] [address] 17 Feb, 2017 Yeast dermatitis B37.2 [place] [address] [place] [id number] [address] [place] [address] 14 Feb, 2017 Candidal intertrigo B37.2 an d Acute right ankle pain M25.571 [place] [address] [place] [id number] [address] [place] [address] 12 Feb, 2017 Chronic pain G89.29 [place] [address] [place] [id number] [address] [place] [address] 16 Jan, 2017 [place] [id number] [place] [address] Jan, Chronic pain G89.29 [place] [address] [address] December, Chronic pain G89.29 ; Essent ial hypertension I10 ; Depressive disorder, not elsewhere classified F32.9 ; GERD (gastroesophageal reflux disease) K21.9 ; Pre-diabetes R73.09 ; Screening breast examination Z12.39 ; Stasis dermatitis of both legs I87.2 and Yeast dermatitis B37.2 [place] [address] [place] [id number] [address] [place] [address] Nov, Chronic pain G89.29 [place] [address] [place] [id number] [address] [place] [address] Nov, Cellulitis of left lower ext remity L03.116 [place] [address] [address] Nov, Cellulitis of left lower ext remity L03.116 [place] [address] [place] [id number] [address] [place] [address] Oct, Yeast dermatitis B37.2 [place] [address] [address] Oct, Chronic pain G89.29 [place] [address] [address] Sep, Chronic pain G89.29 ; Essent ial hypertension I10 ; Depressive disorder, not elsewhere classified F32.9 and GERD (gastroesophageal reflux disease) K21.9 [place] [address] [address] Aug, Chronic pain G89.29 [place] [address] [address] Aug, Cough R05 ; Rash R21 and Vinay h and nonspecific skin eruption R21 [place] [address] [address] Jul, Chronic pain G89.29 [place] [address] [address] Jun, Chronic pain G89.29 ; Bronch itis J40 ; Essential hypertension I10 ; Depressive disorder, not elsewhere classified F32.9 ; GERD (gastroesophageal reflux disease) K21.9 and History of long-term use of multiple prescription drugs Z92.29 [place] [address] [address] Jun, Bronchitis J40 ; Chills R68. 83 and Sore throat J02.9 [place] [address] [address] May, [place] [address] [address] Apr, [facility] [address] [address] 19 Apr, 2016 Acute mucoid otitis media of both ears H65.113 [place] [address] [address] 07 Apr, 2016 Yeast dermatitis B37.2 and H ematuria R31.9 [place] [address] [address] Mar, [place] [address] [address] Mar, [place] [address] [address] Feb, Left anterior knee pain M25. 562 [place] [address] [address] Feb, Chronic pain G89.29 ; Essent ial hypertension I10 ; Depressive disorder, not elsewhere classified F32.9 ; GERD (gastroesophageal reflux disease) K21.9 and History of long-term use of multiple prescription drugs Z92.29 [place] [address] [address] Jan, [address] [address] Jan, Well woman exam Z01.419 ; BM I 45.0-49.9, adult Z68.42 ; Family history of diabetes mellitus Z83.3 and Chronic pain G89.29 [place] [address] [address] December, Chronic pain G89.29 ; Essent ial hypertension I10 ; Depressive disorder, not elsewhere classified F32.9 ; GERD (gastroesophageal reflux disease) K21.9 ; 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 ; History of long-term use of multiple prescription drugs Z92.29 and Obesity E66.[address] [address] Oct, [address] [address] Oct, Well woman exam Z01.419 ; BM [...] Z12.4 and No natural teeth K00.[address] [address] Oct, [address] [address] Sep, Chronic pain G89.29 ; Essent ial hypertension I10 ; GERD (gastroesophageal reflux disease) K21.9 ; 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 ; Skin infection L08.9 and History of long-term use of multiple prescription drugs Z92.29 [facility] [address] [facility] [id number] [address] [place] [address] Aug, [facility] [address] [facility] [id number] [address] [place] [address] Jul, [facility] [address] [place] [id number] [address] [place] [address] Jul, [facility] [address] [place] [id number] [place] [address] Jul, Upper respiratory infection J06.9 [place] [address] [place] [id number] [place] [address] Jul, Depressive disorder, not els ewhere classified F32.9 [place] [address] [place] [id number] [address] [place] [address] Jul, Chronic pain 338.29 [place] [address] [address] [place] [id number] [address] [place] [address] Jul, Chronic pain G89.29 [place] [address] [place] [id number] [place] [address] Jun, Poison josep L23.7 [place] [address] [place] [id number] [place] [address] Jun, Allergic contact dermatitis due to plants, except food L23.7 [place] [address] [address] [place] [id number] [address] [place] [address] Jun, Essential hypertension I10 ; Chronic pain G89.29 ; GERD (gastroesophageal reflux disease) K21.9 and Numbness and tingling in hands R20.2 [place] [address] [place] [id number] [address] [place] [address] May, [facility] [address] [place] [id number] [address] [place] [address] Apr, [facility] [address] [place] [id number] [address] [place] [address] Mar, [place] [address] [address] Feb, Abdominal pain, left lateral 789.09 and Constipation 564.00 [place] [address] [address] Feb, Depressive disorder, not els ewhere classified 311 and No condition on [place] II V71.09 [place] [address] [address] Feb, Spider bite 989.5 and Depres homar 311 [place] [address] [address] Feb, [place] [address] [address] Feb, Chronic pain 338.29 ; Arthro zonia 716.90 and GERD (gastroesophageal reflux disease) 530.81 [place] [address] [address] Jan, Insect bites 919.4 [place] [address] [address] Jan, [place] [address] [address] December, Skin infection, bacterial 68 6.9 ; Conjunctivitis 372.30 and Insect bites 919.4 [place] [address] [place] [id number] [address] [place] [address] December, Chronic pain 338.29 ; Arthro zonia 716.90 ; Skin infection, bacterial 686.9 and Conjunctivitis 372.30 [place] [address] [place] [id number] [address] [place] [address] December, [place] [address] [address] Nov, [facility] [address] [id number] [address] [place] [address], [place] [address] Nov, [facility] [address] [id number] [address] [place] [address], [place] [address] Oct, [facility] [address] [id number] [address] [place] [address], [place] [address] Oct, [facility] [address] [id number] [address] [place] [address], [place] [address] Sep, [facility] [address] [id number] [address] [place] [address], [place] [address] Sep, [facility] [address] [id number] [address] [place] [address], [place] [address] Aug, [facility] [address] [id number] [address] [place] [address], [place] [address] Aug, [facility] [address] [id number] [address] [place] [address], [place] [address] Aug, [facility] [address] [id number] [address] [place] [address], [place] [address] Aug, [facility] [address] [id number] [address] [place] [address], [place] [address] Jul, [facility] [address] [id number] [address] [place] [address], [place] [address] Jul, [facility] [address] [id number] [address] [place] [address], [place] [address] 29 Jul, 2014 [facility] [address] [id number] [address] [place] [address], [place] [address] Jul, [facility] [address] [id number] [address] [place] [address], [place] [address] Jul, [facility] [address] [id number] [address] [place] [address], [place] [address] Jul, [facility] [address] [id number] [address] [place] [address] [address] Jul, [facility] [address] [id number] [address] [place] [address], [place] [address] Jul, [facility] [address] [id number] [address] [place] [address], [place] [address] Jul, [facility] [address] [id number] [address] [place] [address], [place] [address] Jun, [facility] [address] [id number] [address] [place] [address], [place] [address] Jun, [facility] [address] [id number] [address] [place] [address], [place] [address] Jun, [facility] [address] [id number] [address] [place] [address], [place] [address] Jun, [facility] [address] [id number] [address] [place] [address], [place] [address] Jun, [facility] [address] [id number] [address] [place] [address], [place] [address] Jun, [facility] [address] [id number] [address] [place] [address], [place] [address] Jun, [facility] [address] [id number] [address] [place] [address], [place] [address] Jun, [facility] [address] [id number] [address] [place] [address], [place] [address] May, [facility] [address] [id number] [address] [place] [address] May, [facility] [address] [id number] [address] [place] [address], [place] [address] May, [facility] [address] [id number] [address] [place] [address], [place] [address] May, [facility] [address] [id number] [address] [place] [address], [place] [address] May, [facility] [address] [id number] [facility] [place] [address] 26 Apr, 2013 [facility] [address] [id number] [address] [place] [address], [place] [address] 26 Apr, 2013 [facility] [address] [id number] [address] [place] [address], [place] [address] Apr, 2013 [facility] [address] [id number] [address] [place] [address], [place] [address] 25 Apr, 2013 [facility] [address] [id number] [address] [place] [address], [place] [address] 18 Apr, 2013 [facility] [address] [id number] [address] [place] [address], [place] [address] 18 Apr, 2013 [facility] [address] [id number] [address] [place] [address], [place] [address] 18 Apr, 2013 [facility] [address] [id number] [address] [place] [address], [place] [address] Apr, 2013 [facility] [address] [id number] [address] [place] [address], [place] [address] Apr, 2013 [facility] [address] [id number] [address] [place] [address], [place] [address] Apr, [facility] [address] [id number] [address] [place] [address], [place] [address] Mar, [facility] [address] [id number] [address] [place] [address], [place] [address] Mar, [facility] [address] [id number] [address] [place] [address], [place] [address] Mar, [facility] [address] [id number] [address] [place] [address], [place] [address] Mar, [facility] [address] [id number] [address] [place] [address], [place] [address] Mar, [facility] [address] [id number] [address] [place] [address], [place] [address] Mar, [facility] [address] [id number] [address] [place] [address], [place] [address] Feb, [facility] [address] [id number] [address] [place] [address], [place] [address] Feb, [facility] [address] [id number] [address] [place] [address], [place] [address] Jan, [facility] [address] [id number] [address] [place] [address], [place] [address] Jan, [facility] [address] [id number] [address] [place] [address], [place] [address] Jan, [facility] [address] [id number] [address] [place] [address], [place] [address] Jan, [facility] [address] [id number] [address] [place] [address], [place] [address] December, [facility] [address] [id number] [address] [place] [address], [place] [address] December, [facility] [address] [id number] [address] [place] [address], [place] [address] December, [facility] [address] [id number] [address] [place] [address], [place] [address] December, [facility] [address] [id number] [address] [place] [address], [place] [address] December, [facility] [address] [id number] [address] [place] [address], [place] [address] December, [facility] [address] [id number] [address] [place] [address], [place] [address] December, [facility] [address] [id number] [address] [place] [address], [place] [address] December, [facility] [address] [id number] [address] [place] [address], [place] [address] December, [facility] [address] [id number] [address] [place] [address], [place] [address] Nov, [facility] [address] [id number] [address] [place] [address], [place] [address] Nov, [facility] [address] [id number] [address] [place] [address], [place] [address] Nov, [facility] [address] [id number] [address] [place] [address], [place] [address] Nov, [facility] [address] [id number] [address] [place] [address], [place] [address] Nov, [facility] [address] [id number] [address] [place] [address], [place] [address] Nov, [facility] [address] [id number] [address] [place] [address], [place] [address] Nov, [facility] [address] [id number] [address] [place] [address], [place] [address] Nov, [facility] [address] [id number] [address] [place] [address], [place] [address] Nov, [facility] [address] [id number] [address] [place] [address], [place] [address] Nov, [facility] [address] [id number] [address] [place] [address], [place] [address] Oct, [facility] [address] [id number] [address] [place] [address], [place] [address] Oct, [facility] [address] [id number] [address] [place] [address], [place] [address] Sep, [facility] [address] [id number] [address] [place] [address], [place] [address] Sep, [facility] [address] [id number] [address] [place] [address], [place] [address] Aug, [facility] [address] [id number] [address] [place] [address], [place] [address] Aug, [facility] [address] [id number] [address] [place] [address], [place] [address] 16 Aug, 2013 [facility] [address] [id number] [address] [place] [address], [place] [address] Aug, [facility] [address] [id number] [address] [place] [address], [place] [address] Jul, [facility] [address] [id number] [address] [place] [address], [place] [address] Jul, [facility] [address] [id number] [address] [place] [address], [place] [address] Jul, [facility] [address] [id number] [address] [place] [address], [place] [address] Jul, [facility] [address] [id number] [address] [place] [address], [place] [address] Jun, [facility] [address] [id number] [address] [place] [address], [place] [address] Jun, [facility] [address] [id number] [address] [place] [address], [place] [address] May, [facility] [address] [id number] [address] [place] [address], [place] [address] May, [facility] [address] [id number] [address] [place] [address], [place] [address] May, [facility] [address] [id number] [address] [place] [address], [place] [address] May, [facility] [address] [id number] [address] [place] [address], [place] [address] May, [facility] [address] [id number] [address] [place] [address], [place] [address] May, [facility] [address] [id number] [address] [place] [address], [place] [address] 30 Apr, 2013 [facility] [address] [id number] [address] [place] [address], [place] [address] Apr, [facility] [address] [id number] [address] [place] [address], [place] [address] Apr, [facility] [address] [id number] [address] [place] [address], [place] [address] Feb, [facility] [address] [id number] [address] [place] [address], [place] [address] Jan, [facility] [address] [id number] [address] [place] [address], [place] [address] Jan, [facility] [address] [id number] [address] [place] [address], [place] [address] Jan, [facility] [address] [id number] [address] [place] [address], [place] [address] Jan, [facility] [address] [id number] [address] [place] [address], [place] [address] December, [facility] [address] [id number] [address] [place] [address], [place] [address] December, [facility] [address] [id number] [address] [place] [address], [place] [address] 24 Nov, 2012 [facility] [address] [id number] [address] [place] [address], [place] [address] Nov, [facility] [address] [id number] [address] [place] [address], [place] [address] Nov, [facility] [address] [id number] [address] [place] [address], [place] [address] Nov, [facility] [address] [id number] [address] [place] [address], [place] [address] Nov, [facility] [address] [id number] [address] [place] [address], [place] [address] Nov, [facility] [address] [id number] [address] [place] [address], [place] [address] Nov, [facility] [facility] [address] [id number] [address] [place] [address], [place] [address] 27 Oct, 2012 [facility] [address] [id number] [address] [place] [address], [place] [address] 18 Oct, 2012 [facility] [address] [id number] [address] [place] [address], [place] [address] 14 Oct, 2012 [facility] [address] [id number] [address] [place] [address], [place] [address] 13 Oct, 2012 [facility] [address] [id number] [address] [place] [address], [place] [address] 12 Oct, 2012 [facility] [address] [id number] [address] [place] [address], [place] [address] 11 Oct, 2012 [facility] [address] [id number] [address] [place] [address], [place] [address] 08 Oct, 2012 [facility] [address] [id number] [address] [place] [address], [place] [address] 20 Sep, 2012 [facility] [address] [id number] [address] [place] [address], [place] [address] Sep, [facility] [address] [id number] [address] [place] [address], [place] [address] Aug, [facility] [address] [id number] [address] [place] [address], [place] [address] Aug, [facility] [address] [id number] [address] [place] [address], [place] [address] Jul, [facility] [address] [id number] [address] [place] [address], [place] [address] Jul, [facility] [address] [id number] [address] [place] [address], [place] [address] Jul, [facility] [address] [id number] [address] [place] [address], [place] [address] Jul, [facility] [address] [id number] [address] [place] [address], [place] [address] Jul, [facility] [address] [facility] [id number] [address] [place] [phone] Jul, [facility] [address] [facility] [id number] [address] [place] [phone] Jul, [facility] [address] [facility] [id number] [address] [place] [phone] Jul, [facility] [address] [facility] [id number] [address] [place] [id number] Jun, [facility] [address] [facility] [id number] [address] [place] [phone] Jun, IMMUNIZATIONS No Known Immunizations SOCIAL HISTORY Never Assessed REASON FOR VISIT Cold symptoms/ nasal congestion, producitive cough , body ache x 2 days -- tsering myrick ma PLAN OF CARE Activity Details Follow Up prn Reason: VITAL SIGNS Height 62 in 2017-06-08 Weight 258.0 lbs 2017-06-08 Temperature 98.0 degrees Fahrenheit 2017-06-08 Heart Rate 88 bpm 2017-06-08 Respiratory Rate 24 2017-06-08 BMI 47.18 kg/m2 2017-06-08 Blood pressure systolic 138 mmHg 2017-06-08 Blood pressure diastolic 98 mmHg 2017-06-08 MEDICATIONS Medication Instructions Dosage Frequency Start Date End Date Duration S tatus Hydrochlorothiazide 25 MG Orally Once a day 1 tablet 24h Active Hydrocodone-Acetaminophen 5-325 MG Orally 3 times a day prn must last 4 weeks 1 Tablet May, Active Paroxetine HCl 10 mg Orally Once a day 1 tablet in the morning 24h 30 Active Albuterol Sulfate 90 mcg/actuation 2 puf fs by Inhalation route every 4-6 hours as needed PRN cough or wheezing Active Nabumetone 500 mg Orally Twice a day 1 tablet 12h Mar, Jun, 30 day(s) Active Omeprazole 20 mg Orally Once a day 1 capsule 24h Active GuaiFENesin ER 600 MG Orally every 12 hrs 1 tablet as needed 12h Jun, Jun, 14 days Active Indomethacin 50 mg Orally 3 times a day 1 capsule with food or milk 8h Active Ketoconazole 2 % Externally Once a day 1 application to affected ar ea 24h Mar, Active Omeprazole 20 MG TAKE ONE CAPSULE BY MOUTH ONCE DAILY BEFORE A M EAL 30 Active Hevdw-0-retm Ethyl Esters 1 GM Orally Once a day 1 capsule 24h Active RESULTS No Results PROCEDURES No Known [...]
--- OUTSIDE RECORDS SUMMARY | 2020-02-11 03:28 | XMS REPORT ---
Author Author CHEMAMadeline FARMER 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 Name Role Phone KASHIF BEAR Unavailable PROBLEMS Type Condition ICD9-CM Code UOE42-HF Code Onset Dates Condition S tatus SNOMED Code Problem Chronic pain G89.29 Active 5706000 1 Problem Pre-diabetes R73.09 Active 7652618 02 Problem Essential hypertension I10 Active 39926437 Problem BMI 45.0-49.9, adult Z68.42 Active 819498942 Problem Numbness and tingling in hands R20.2 Active 292118224 Problem GERD (gastroesophageal reflux disease) K21.9 Active 795374657 Problem Stasis dermatitis of both legs I87.2 Active 60275383 Problem History of abnormal cervical Pap smear Z87.898 Active 831851412 ALLERGIES Substance Reaction Event Type Date Status PredniSONE hives Drug Allergy Feb, Active Meloxicam hives Drug Allergy Feb, Active Levaquin itching Drug Allergy Feb, Active ENCOUNTERS Encounter Location Date Diagnosis [facility] [id number] [place] [address] Oct, Chronic pain G89.29 ; Pre-di abetes R73.09 ; Long-term use of high- risk medication Z79.899 ; Allergic rhinitis, unspecified seasonality, unspecified trigger J30.9 ; BMI 45.0-49.9, adult Z68.42 and Essential hypertension I10 [facility] [id number] [place] [address] Oct, Chronic pain G89.29 [facility] [id number] [place] [address] Sep, Chronic pain G89.29 [place] [id number] [place] [address] Aug, Chronic pain G89.29 [facility] [id number] [place] [address] Jul, [facility] [address] [facility] [id number] [address] [place] [address] Jul, [facility] [id number] [place] [address] Jun, Chronic pain G89.29 ; BMI 45 .0-49.9, adult Z68.42 ; Pre-diabetes R73.09 ; Essential hypertension I10 ; GERD (gastroesophageal reflux disease) K21.9 ; Yeast dermatitis B37.2 ; Dysuria R30.0 ; Acute non-recurrent maxillary sinusitis J01.00 and Acute cystitis with hematuria N30.01 [place] [id number] [place] [address] Jun, Chronic pain G89.29 [facility] [id number] [place] [address] Jun, Acute non-recurrent maxillar y sinusitis J01.00 and BMI 45.0-49.9, adult Z68.42 [place] [id number] [place] [address] May, [place] [id number] [place] [address] May, Chronic pain G89.29 [facility] [address] [facility] [id number] [address] [place] [address] May, [place] [id number] [place] [address] Apr, Chronic pain G89.29 [facility] [id number] [place] [address] Mar, [facility] [id number] [place] [address] Mar, Essential hypertension I10 a nd Pre-diabetes R73.09 [place] [address] [facility] [id number] [address] [place] [address] 15 Mar, 2017 Chronic pain G89.29 ; Essent ial hypertension I10 ; Depressive disorder, not elsewhere classified F32.9 ; GERD (gastroesophageal reflux disease) K21.9 ; Pre-diabetes R73.09 ; Stasis dermatitis of both legs I87.2 and Acute non-recurrent maxillary sinusitis J01.00 [place] [id number] [place] [address] 11 Mar, 2017 Chronic pain G89.29 [place] [id number] [place] [address] 07 Mar, 2017 Achilles tendinitis of right lower extremity M76.61 and Tinea corporis B35.4 [place] [id number] [place] [address] 17 Feb, 2017 Yeast dermatitis B37.2 [place] [address] [facility] [id number] [address] [place] [address] 14 Feb, 2017 Candidal intertrigo B37.2 an d Acute right ankle pain M25.571 [place] [address] [facility] [id number] [address] [place] [address] 12 Feb, 2017 Chronic pain G89.29 [place] [id number] [place] [address] 16 Jan, 2017 [place] [address] [facility] [id number] [address] [place] [address] Jan, Chronic pain G89.29 [place] [id number] [place] [address] December, Chronic pain G89.29 ; Essent ial hypertension I10 ; Depressive disorder, not elsewhere classified F32.9 ; GERD (gastroesophageal reflux disease) K21.9 ; Pre-diabetes R73.09 ; Screening breast examination Z12.39 ; Stasis dermatitis of both legs I87.2 and Yeast dermatitis B37.2 [place] [address] [place] [address] Nov, Chronic pain G89.29 [place] [address] [place] [address] Nov, Cellulitis of left lower ext remity L03.116 [place] [address] [address] Nov, Cellulitis of left lower ext remity L03.116 [place] [address] [place] [address] Oct, Yeast dermatitis B37.2 [place] [address] [address] Oct, Chronic pain G89.29 [place] [address] [address] Sep, Chronic pain G89.29 ; Essent ial hypertension I10 ; Depressive disorder, not elsewhere classified F32.9 and GERD (gastroesophageal reflux disease) K21.[address] [address] Aug, Chronic pain G89.29 [place] [address] [address] Aug, Cough R05 ; Rash R21 and Vinay h and nonspecific skin eruption R21 [place] [id number] [place] [address] Jul, Chronic pain G89.[address] [address] Jun, Chronic pain G89.29 ; Bronch itis J40 ; Essential hypertension I10 ; Depressive disorder, not elsewhere classified F32.9 ; GERD (gastroesophageal reflux disease) K21.9 and History of long-term use of multiple prescription drugs Z92.29 [place] [address] [address] Jun, Bronchitis J40 ; Chills R68. 83 and Sore throat J02.9 [place] [address] [address] May, [facility] [address] [address] Apr, [facility] [address] [address] Apr, Acute mucoid otitis media of both ears H65.[address] [address] 07 Apr, 2016 Yeast dermatitis B37.2 and H ematuria R31.[address] [address] Mar, [place] [address] [address] Mar, [place] [address] [address] Feb, Left anterior knee pain M25. 562 [place] [address] [address] Feb, Chronic pain G89.29 ; Essent ial hypertension I10 ; Depressive disorder, not elsewhere classified F32.9 ; GERD (gastroesophageal reflux disease) K21.9 and History of long-term use of multiple prescription drugs Z92.29 [place] [address] [address] Jan, [address] [address] Jan, Well woman exam Z01.419 ; BM I 45.0-49.9, adult Z68.42 ; Family history of diabetes mellitus Z83.3 and Chronic pain G89.29 [place] [address] [address] December, Chronic pain G89.29 ; Essent ial hypertension I10 ; Depressive disorder, not elsewhere classified F32.9 ; GERD (gastroesophageal reflux disease) K21.9 ; 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 ; History of long-term use of multiple prescription drugs Z92.29 and Obesity E66.[address] [address] Oct, [address] [address] Oct, Well woman exam Z01.419 ; BM [...] smear Z12.4 and No natural teeth K00.[address] [address] Oct, [address] [address] Sep, Chronic pain G89.29 ; Essent ial hypertension I10 ; GERD (gastroesophageal reflux disease) K21.9 ; 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 ; Skin infection L08.9 and History of long-term use of multiple prescription drugs Z92.29 [place] [address] [address] Aug, [address] [address] Jul, [place] [address] [address] Jul, [address] [place] [address] 09 Jul, 2015 Upper respiratory infection J06.9 [facility] [address] [address] Jul, Depressive disorder, not els ewhere classified F32.9 [facility] [address] [address] Jul, Chronic pain 338.29 [facility] [address] [address] Jul, Chronic pain G89.29 [place] [address] [address] Jun, Poison josep L23.7 [place] [address] [address] Jun, Allergic contact dermatitis due to plants, except food L23.7 [place] [address] [address] Jun, Essential hypertension I10 ; Chronic pain G89.29 ; GERD (gastroesophageal reflux disease) K21.9 and Numbness and tingling in hands R20.2 [place] [address] [address] May, [place] [address] [address] Apr, [facility] [address] [address] Mar, [facility] [address] [address] Feb, Abdominal pain, left lateral 789.09 and Constipation 564.00 [place] [id number] [place] [address] Feb, Depressive disorder, not els ewhere classified 311 and No condition on [place] V71.09 [place] [address] [place] [address] [place] [address] Feb, Spider bite 989.5 and Depres homar 311 [facility] [address] [address] Feb, [facility] [id number] [place] [address] Feb, Chronic pain 338.29 ; Arthro zonia 716.90 and GERD (gastroesophageal reflux disease) 530.81 [facility] [address] [address] Jan, Insect bites 919.4 [facility] [address] [address] Jan, [facility] [address] [address] December, Skin infection, bacterial 68 6.9 ; Conjunctivitis 372.30 and Insect bites 919.4 [facility] [id number] [place] [address] December, Chronic pain 338.29 ; Arthro zonia 716.90 ; Skin infection, bacterial 686.9 and Conjunctivitis 372.30 [facility] [address] [place] [address] December, [facility] [address] [place] [address] Nov, [facility] [id number] [place] [address] Nov, [facility] [address] [id number] [address] [place] [address] Oct, [facility] [address] [id number] [place] [address] Oct, [facility] [id number] [place] [address] Sep, [facility] [address] [id number] [address] [place] [address], [place] [address] Sep, [facility] [address] [id number] [address] [place] [address], [place] [address] Aug, [facility] [address] [id number] [address] [place] [address], [place] [address] Aug, [facility] [address] [id number] [address] [place] [address], [place] [address] Aug, [facility] [address] [id number] [address] [place] [address], [place] [address] Aug, [facility] [address] [id number] [address] [place] [address], [place] [address] Jul, [facility] [address] [id number] [address] [place] [address], [place] [address] Jul, [facility] [address] [id number] [address] [place] [address], [place] [address] Jul, [facility] [address] [id number] [address] [place] [address], [place] [address] Jul, [facility] [address] [id number] [address] [place] [address], [place] [address] Jul, [facility] [address] [id number] [address] [place] [address], [place] [address] Jul, [facility] [address] [id number] [address] [place] [address], [place] [address] Jul, [facility] [address] [id number] [address] [place] [address], [place] [address] Jul, [facility] [address] [id number] [address] [place] [address], [place] [address] Jul, [facility] [address] [id number] [address] [place] [address], [place] [address] Jun, [facility] [address] [id number] [address] [place] [address], [place] [address] Jun, [facility] [address] [id number] [address] [place] [address], [place] [address] Jun, [facility] [address] [id number] [address] [place] [address], [place] [address] Jun, [facility] [address] [id number] [address] [place] [address], [place] [address] Jun, [facility] [address] [id number] [address] [place] [address], [place] [address] Jun, [facility] [address] [id number] [address] [place] [address], [place] [address] Jun, [facility] [address] [id number] [address] [place] [address], [place] [address] Jun, [facility] [address] [id number] [address] [place] [address], [place] [address] May, [facility] [address] [id number] [address] [place] [address], [place] [address] May, [facility] [address] [id number] [address] [place] [address], [place] [address] May, [facility] [address] [id number] [address] [place] [address], [place] [address] May, [facility] [address] [id number] [address] [place] [address], [place] [address] May, [facility] [address] [id number] [address] [place] [address], [place] [address] Apr, [facility] [address] [id number] [address] [place] [address], [place] [address] Apr, [facility] [address] [id number] [address] [place] [address], [place] [address] Apr, [facility] [address] [id number] [address] [place] [address], [place] [address] Apr, [facility] [address] [id number] [address] [place] [address] 18 Apr, 2013 [facility] [address] [id number] [address] [place] [address], [place] [address] 18 Apr, 2014 [facility] [address] [id number] [address] [place] [address], [place] [address] 18 Apr, 2014 [facility] [address] [id number] [address] [place] [address], [place] [address] Apr, [facility] [address] [id number] [address] [place] [address], [place] [address] Apr, [facility] [address] [id number] [address] [place] [address], [place] [address] Apr, [facility] [address] [id number] [address] [place] [address], [place] [address] Mar, [facility] [address] [id number] [address] [place] [address], [place] [address] Mar, [facility] [address] [id number] [address] [place] [address], [place] [address] Mar, [facility] [address] [id number] [address] [place] [address], [place] [address] Mar, [facility] [address] [id number] [address] [place] [address], [place] [address] Mar, [facility] [address] [id number] [address] [place] [address], [place] [address] Mar, [facility] [address] [id number] [address] [place] [address], [place] [address] Feb, [facility] [address] [id number] [address] [place] [address], [place] [address] Feb, [facility] [address] [id number] [address] [place] [address], [place] [address] Jan, [facility] [address] [id number] [address] [place] [address], [place] [address] Jan, [facility] [address] [id number] [address] [place] [address], [place] [address] Jan, [facility] [address] [id number] [address] [place] [address], [place] [address] Jan, [facility] [address] [id number] [address] [place] [address], [place] [address] December, [facility] [address] [id number] [address] [place] [address], [place] [address] December, [facility] [address] [id number] [address] [place] [address], [place] [address] December, [facility] [address] [id number] [address] [place] [address], [place] [address] December, [facility] [address] [id number] [address] [place] [address], [place] [address] December, [facility] [address] [id number] [address] [place] [address], [place] [address] December, [facility] [address] [id number] [address] [place] [address], [place] [address] December, [facility] [address] [id number] [address] [place] [address], [place] [address] December, [facility] [address] [id number] [address] [place] [address], [place] [address] December, [facility] [address] [id number] [address] [place] [address], [place] [address] Nov, [facility] [address] [id number] [address] [place] [address], [place] [address] Nov, [facility] [address] [id number] [address] [place] [address], [place] [address] Nov, [facility] [address] [id number] [address] [place] [address], [place] [address] Nov, [facility] [address] [id number] [address] [place] [address], [place] [address] Nov, [facility] [address] [id number] [address] [place] [address], [place] [address] Nov, [facility] [address] [id number] [address] [place] [address], [place] [address] Nov, [facility] [address] [id number] [address] [place] [address], [place] [address] Nov, [facility] [address] [id number] [address] [place] [address], [place] [address] Nov, [facility] [address] [id number] [address] [place] [address], [place] [address] Nov, [facility] [address] [id number] [address] [place] [address], [place] [address] Oct, [facility] [address] [id number] [address] [place] [address], [place] [address] Oct, [facility] [address] [id number] [address] [place] [address], [place] [address] Sep, [facility] [address] [id number] [address] [place] [address], [place] [address] Sep, [facility] [address] [id number] [address] [place] [address], [place] [address] Aug, [facility] [address] [id number] [address] [place] [address], [place] [address] Aug, [facility] [address] [id number] [address] [place] [address], [place] [address] Aug, [facility] [address] [id number] [address] [place] [address], [place] [address] Aug, [facility] [address] [id number] [address] [place] [address], [place] [address] Jul, [facility] [address] [id number] [address] [place] [address], [place] [address] Jul, [facility] [address] [id number] [address] [place] [address], [place] [address] Jul, [facility] [address] [id number] [address] [place] [address], [place] [id number] Jul, [facility] [address] [id number] [address] [place] [address], [place] [id number] Jun, [facility] [address] [id number] [address] [place] [address], [place] [id number] Jun, [facility] [address] [id number] [address] [place] [address], [place] [id number] May, [facility] [address] [id number] [address] [place] [address], [place] [id number] May, [facility] [address] [id number] [address] [place] [address], [place] [id number] May, [facility] [address] [id number] [address] [place] [address], [place] [id number] May, [facility] [address] [id number] [address] [place] [address], [place] [id number] May, [facility] [address] [id number] [address] [place] [address], [place] [id number] May, [facility] [address] [id number] [address] [place] [address], [place] [id number] 30 Apr, 2013 [facility] [address] [id number] [address] [place] [address], [place] [id number] 23 Apr, 2013 [facility] [address] [id number] [address] [place] [address], [place] [id number] Apr, [facility] [address] [id number] [address] [place] [address], [place] [id number] Feb, [facility] [address] [id number] [address] [place] [address], [place] [id number] Jan, [facility] [address] [id number] [address] [place] [address], [place] [id number] 18 Jan, 2013 [facility] [address] [id number] [address] [place] [address], [place] [id number] 17 Jan, 2013 [facility] [address] [id number] [address] [place] [address], [place] [id number] 14 Jan, 2013 [facility] [address] [id number] [address] [place] [address], [place] [id number] December, [facility] [address] [id number] [address] [place] [address], [place] [id number] December, [facility] [address] [id number] [address] [place] [address], [place] [id number] 24 Nov, 2012 [facility] [address] [id number] [address] [place] [address], [place] [id number] Nov, [facility] [address] [id number] [address] [place] [address], [place] [id number] Nov, [facility] [address] [id number] [address] [place] [address], [place] [id number] Nov, [facility] [address] [id number] [address] [place] [address], [place] [id number] Nov, [facility] [address] [id number] [address] [place] [address], [place] [id number] Nov, [facility] [address] [id number] [address] [place] [address], [place] [id number] Nov, [facility] [address] [id number] [address] [place] [address], [place] [id number] 27 Oct, 2012 [facility] [address] [id number] [address] [place] [address], [place] [id number] 18 Oct, 2012 [facility] [address] [id number] [address] [place] [address], [place] [id number] 14 Oct, 2012 [facility] [address] [id number] [address] [place] [address], [place] [id number] 13 Oct, 2012 [facility] [address] [id number] [address] [place] [address], [place] [id number] 12 Oct, 2012 [facility] [address] [id number] [address] [place] [address], [place] [id number] Oct, [facility] [address] [id number] [address] [place] [address], [place] [id number] 08 Oct, 2012 [facility] [address] [id number] [address] [place] [address], [place] [id number] Sep, [facility] [address] [id number] [address] [place] [address], [place] [id number] Sep, [facility] [address] [id number] [address] [place] [address], [place] [id number] Aug, [facility] [address] [id number] [address] [place] [address], [place] [id number] Aug, [facility] [address] [id number] [address] [place] [address], [place] [id number] Jul, [facility] [address] [id number] [address] [place] [address], [place] [id number] Jul, [facility] [address] [id number] [address] [place] [address], [place] [id number] Jul, [facility] [address] [id number] [address] [place] [address], [place] [id number] Jul, [facility] [address] [id number] [address] [place] [address], [place] [id number] Jul, [facility] [address] [id number] [address] [place] [address], [place] [id number] Jul, [facility] [address] [id number] [address] [place] [address], [place] [id number] Jul, [facility] [address] [id number] [address] [place] [address], [place] [id number] Jul, [facility] [address] [id number] [address] [place] [address], [place] [id number] Jun, [facility] [address] [facility] [id number] [address] [place] [address] Jun, IMMUNIZATIONS No Known Immunizations SOCIAL HISTORY Never Assessed REASON FOR VISIT poss Yeast infection under stomach -- prasanna murguia, states she normally see sahara barrios and was prescribed a cream and it help to dry up but it comes back PLAN OF CARE Activity Details Follow Up prn Reason: VITAL SIGNS Height 62 in 2017-02-17 Weight 256.0 lbs 2017-02-17 Temperature 98.3 degrees Fahrenheit 2017-02-17 Heart Rate 76 bpm 2017-02-17 Respiratory Rate 20 2017-02-17 BMI 46.82 kg/m2 2017-02-17 Blood pressure systolic 140 mmHg 2017-02-17 Blood pressure diastolic 78 mmHg 2017-02-17 MEDICATIONS Medication Instructions Dosage Frequency Start Date End Date Duration S tatus [id number] Ethyl Esters 1 GM Orally Once a day 1 capsule 24h Active Indomethacin 50 mg Orally 3 times a day 1 capsule with food or milk 8h Active Omeprazole 20 MG TAKE ONE CAPSULE BY MOUTH ONCE DAILY BEFORE A M EAL 30 Active Omeprazole 20 mg Orally Once a day 1 capsule 24h Active Albuterol Sulfate 90 mcg/actuation 2 puf fs by Inhalation route every 4-6 hours as needed PRN cough or wheezing Active Nystatin 643527 UNIT/GM Externally Twice a day 1 application to affected area 12h Feb, Active Hydrocodone-Acetaminophen 5-325 MG Orally 3 times a day prn must last 4 weeks 1 Tablet 13 Feb, 2017 Active Nystatin-Triamcinolone 541162-9.1 UNIT/GM Externally Twice a day 1 application to affected area 12h Apr, Active Paroxetine HCl 10 mg Orally Once a day 1 tablet in the morning 24h 30 Active Hydrochlorothiazide 25 MG Orally Once a day 1 tablet 24h Active RESULTS No Results PROCEDURES No [...]
--- OUTSIDE RECORDS SUMMARY | 2020-02-11 03:28 | XMS REPORT ---
Author Author АНДРЕЙ Madelineshawn LEONG Organization [facility] Address [address] [place] [address] Care Team Providers Care Small Business Director Name Role Phone АНДРЕЙ DANG Unavailable PROBLEMS Type Condition ICD9-CM Code LIB14-CV Code Onset Dates Condition S tatus SNOMED Code Problem Chronic pain G89.29 Active 8182195 1 Problem Pre-diabetes R73.09 Active 2317896 02 Problem Essential hypertension I10 Active 64667791 Problem BMI 45.0-49.9, adult Z68.42 Active 527392794 Problem Numbness and tingling in hands R20.2 Active 827676014 Problem GERD (gastroesophageal reflux disease) K21.9 Active 089866563 Problem Stasis dermatitis of both legs I87.2 Active 68026692 Problem History of abnormal cervical Pap smear Z87.898 Active 817868397 ALLERGIES No Information ENCOUNTERS Encounter Location Date Diagnosis [place] [address] [address] 12 Nov, 2017 Long-term use of high-risk m edication Z79.899 [place] [address] [place] [id number] [address] [place] [address] Nov, Chronic pain G89.29 [place] [address] [place] [id number] [address] [place] [address] Oct, Chronic pain G89.29 ; Pre-di abetes R73.09 ; Long-term use of high- risk medication Z79.899 ; Allergic rhinitis, unspecified seasonality, unspecified trigger J30.9 ; BMI 45.0-49.9, adult Z68.42 and Essential hypertension I10 [place] [address] [place] [id number] [address] [place] [address] Oct, Chronic pain G89.29 [facility] [address] [facility] [id number] [address] [place] [address] Sep, Chronic pain G89.29 [facility] [address] [place] [id number] [address] [place] [address] Aug, Chronic pain G89.29 [facility] [address] [address] Jul, [facility] [address] [address] Jul, [facility] [address] [place] [id number] [place] [address] Jun, Chronic pain G89.29 ; BMI 45 .0-49.9, adult Z68.42 ; Pre-diabetes R73.09 ; Essential hypertension I10 ; GERD (gastroesophageal reflux disease) K21.9 ; Yeast dermatitis B37.2 ; Dysuria R30.0 ; Acute non-recurrent maxillary sinusitis J01.00 and Acute cystitis with hematuria N30.01 [facility] [address] [place] [id number] [address] [place] [address] Jun, Chronic pain G89.29 [facility] [address] [place] [id number] [place] [address] Jun, Acute non-recurrent maxillar y sinusitis J01.00 and BMI 45.0-49.9, adult Z68.42 [facility] [address] [place] [id number] [place] [address] May, [facility] [address] [place] [id number] [address] [place] [address] May, Chronic pain G89.29 [facility] [address] [place] [id number] [place] [address] May, [facility] [address] [place] [id number] [place] [address] Apr, Chronic pain G89.29 [place] [address] [facility] [id number] [address] [place] [address] Mar, [place] [address] [place] [id number] [place] [address] Mar, Essential hypertension I10 a nd Pre-diabetes R73.09 [place] [address] [place] [id number] [address] [place] [address] 15 Mar, 2017 Chronic pain G89.29 ; Essent ial hypertension I10 ; Depressive disorder, not elsewhere classified F32.9 ; GERD (gastroesophageal reflux disease) K21.9 ; Pre-diabetes R73.09 ; Stasis dermatitis of both legs I87.2 and Acute non-recurrent maxillary sinusitis J01.00 [place] [address] [place] [id number] [address] [place] [address] 11 Mar, 2017 Chronic pain G89.29 [place] [address] [place] [id number] [place] [address] Mar, Achilles tendinitis of right lower extremity M76.61 and Tinea corporis B35.4 [place] [address] [place] [id number] [place] [address] 17 Feb, 2017 Yeast dermatitis B37.2 [place] [address] [facility] [id number] [address] [place] [address] 14 Feb, 2017 Candidal intertrigo B37.2 an d Acute right ankle pain M25.571 [place] [address] [facility] [id number] [address] [place] [address] Feb, Chronic pain G89.29 [place] [address] [facility] [id number] [address] [place] [address] Jan, [place] [address] [place] [id number] [place] [address] Jan, Chronic pain G89.29 [place] [address] [place] [id number] [place] [address] December, Chronic pain G89.29 ; Essent ial hypertension I10 ; Depressive disorder, not elsewhere classified F32.9 ; GERD (gastroesophageal reflux disease) K21.9 ; Pre-diabetes R73.09 ; Screening breast examination Z12.39 ; Stasis dermatitis of both legs I87.2 and Yeast dermatitis B37.2 [place] [address] [facility] [id number] [address] [place] [address] Nov, Chronic pain G89.29 [place] [address] [facility] [id number] [address] [place] [address] Nov, Cellulitis of left lower ext remity L03.116 [place] [address] [facility] [id number] [address] [place] [address] Nov, Cellulitis of left lower ext remity L03.116 [place] [address] [facility] [id number] [address] [place] [address] Oct, Yeast dermatitis B37.2 [place] [address] [facility] [id number] [address] [place] [address] Oct, Chronic pain G89.29 [place] [address] [place] [id number] [place] [address] Sep, Chronic pain G89.29 ; Essent ial hypertension I10 ; Depressive disorder, not elsewhere classified F32.9 and GERD (gastroesophageal reflux disease) K21.9 [place] [address] [place] [id number] [place] [address] Aug, Chronic pain G89.29 [place] [address] [place] [id number] [place] [address] Aug, Cough R05 ; Rash R21 and Vinay h and nonspecific skin eruption R21 [place] [id number] [address] [place] [address] Jul, Chronic pain G89.29 [place] [address] [place] [id number] [address] [place] [address] Jun, Chronic pain G89.29 ; Bronch itis J40 ; Essential hypertension I10 ; Depressive disorder, not elsewhere classified F32.9 ; GERD (gastroesophageal reflux disease) K21.9 and History of long-term use of multiple prescription drugs Z92.29 [place] [address] [address] Jun, Bronchitis J40 ; Chills R68. 83 and Sore throat J02.9 [place] [address] [address] May, [place] [address] [address] Apr, [facility] [address] [address] Apr, Acute mucoid otitis media of both ears H65.113 [place] [address] [address] Apr, Yeast dermatitis B37.2 and H ematuria R31.9 [place] [address] [address] Mar, [place] [address] [address] Mar, [place] [address] [address] Feb, Left anterior knee pain M25. 562 [place] [address] [address] Feb, Chronic pain G89.29 ; Essent ial hypertension I10 ; Depressive disorder, not elsewhere classified F32.9 ; GERD (gastroesophageal reflux disease) K21.9 and History of long-term use of multiple prescription drugs Z92.29 [place] [address] [address] Jan, [place] [address] [address] Jan, Well woman exam Z01.419 ; BM I 45.0-49.9, adult Z68.42 ; Family history of diabetes mellitus Z83.3 and Chronic pain G89.29 [place] [address] [address] December, Chronic pain G89.29 ; Essent ial hypertension I10 ; Depressive disorder, not elsewhere classified F32.9 ; GERD (gastroesophageal reflux disease) K21.9 ; 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 ; History of long-term use of multiple prescription drugs Z92.29 and Obesity E66.9 [place] [address] [address] Oct, [place] [address] [address] Oct, Well woman exam Z01.419 ; BM [...] smear Z12.4 and No natural teeth K00.0 [place] [address] [address] Oct, [address] [address] Sep, Chronic pain G89.29 ; Essent ial hypertension I10 ; GERD (gastroesophageal reflux disease) K21.9 ; 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 ; Skin infection L08.9 and History of long-term use of multiple prescription drugs Z92.29 [place] [address] [address] Aug, [place] [address] [address] Jul, [place] [id number] [place] [address] Jul, [place] [address] [place] [address] Jul, Upper respiratory infection J06.9 [place] [address] [place] [id number] [address] [place] [address] Jul, Depressive disorder, not els ewhere classified F32.9 [place] [address] [place] [id number] [address] [place] [address] Jul, Chronic pain 338.29 [place] [address] [address] Jul, Chronic pain G89.29 [place] [address] [address] Jun, Poison josep L23.7 [place] [address] [address] Jun, Allergic contact dermatitis due to plants, except food L23.7 [place] [address] [address] Jun, Essential hypertension I10 ; Chronic pain G89.29 ; GERD (gastroesophageal reflux disease) K21.9 and Numbness and tingling in hands R20.2 [place] [address] [place] [id number] [place] [address] May, [place] [address] [place] [id number] [address] [place] [address] Apr, [place] [address] [address] Mar, [place] [address] [place] [id number] [address] [place] [address] Feb, Abdominal pain, left lateral 789.09 and Constipation 564.00 [place] [address] [place] [id number] [place] [address] Feb, Depressive disorder, not els ewhere classified 311 and No condition on [place] V71.09 [facility] [address] [address] Feb, Spider bite 989.5 and Depres homar 311 [facility] [address] [address] Feb, [facility] [address] [address] Feb, Chronic pain 338.29 ; Arthro zonia 716.90 and GERD (gastroesophageal reflux disease) 530.81 [facility] [address] [address] Jan, Insect bites 919.4 [facility] [address] [address] Jan, [facility] [address] [address] December, Skin infection, bacterial 68 6.9 ; Conjunctivitis 372.30 and Insect bites 919.4 [facility] [address] [place] [id number] [place] [address] December, Chronic pain 338.29 ; Arthro zonia 716.90 ; Skin infection, bacterial 686.9 and Conjunctivitis 372.30 [facility] [address] [place] [id number] [place] [address] December, [facility] [address] [place] [id number] [place] [address] Nov, [facility] [address] [address] Nov, [facility] [address] [place] [id number] [place] [address] Oct, [facility] [address] [place] [id number] [place] [address] Oct, [facility] [address] [id number] [address] [place] [address], [place] [address] Sep, [facility] [address] [id number] [address] [place] [address], [place] [address] Sep, [facility] [address] [id number] [address] [place] [address], [place] [address] Aug, [facility] [address] [id number] [address] [place] [address], [place] [address] Aug, [facility] [address] [id number] [address] [place] [address], [place] [address] Aug, [facility] [address] [id number] [address] [place] [address], [place] [address] Aug, [facility] [address] [id number] [address] [place] [address], [place] [address] Jul, [facility] [address] [id number] [address] [place] [address], [place] [address] Jul, [facility] [address] [id number] [address] [place] [address], [place] [address] Jul, [facility] [address] [id number] [address] [place] [address], [place] [address] Jul, [facility] [address] [id number] [address] [place] [address], [place] [address] Jul, [facility] [address] [id number] [address] [place] [address], [place] [address] Jul, [facility] [address] [id number] [address] [place] [address], [place] [address] Jul, [facility] [address] [id number] [address] [place] [address], [place] [address] Jul, [facility] [address] [id number] [address] [place] [address], [place] [address] Jul, [facility] [place] [facility] [address] [id number] [address] [place] [address], [place] [address] Jun, [facility] [place] [facility] [address] [id number] [address] [place] [address], [place] [address] Jun, [facility] [place] [facility] [address] [id number] [address] [place] [address], [place] [address] Jun, [facility] [place] [facility] [address] [id number] [address] [place] [address], [place] [address] Jun, [facility] [place] [facility] [address] [id number] [address] [place] [address], [place] [address] Jun, [facility] [place] [facility] [address] [id number] [address] [place] [address], [place] [address] Jun, [facility] [place] [facility] [address] [id number] [address] [place] [address], [place] [address] Jun, [facility] [place] [facility] [address] [id number] [address] [place] [address], [place] [address] Jun, [facility] [place] [facility] [address] [id number] [address] [place] [address], [place] [address] May, [facility] [place] [facility] [address] [id number] [address] [place] [address], [place] [address] May, [facility] [place] [facility] [address] [id number] [address] [place] [address], [place] [address] May, [facility] [place] [facility] [address] [id number] [address] [place] [address], [place] [address] May, [facility] [place] [facility] [address] [id number] [address] [place] [address], [place] [address] May, [facility] [place] [facility] [address] [id number] [address] [place] [address], [place] [address] Apr, [facility] [place] [facility] [address] [id number] [address] [place] [address], [place] [address] Apr, [facility] [place] [facility] [address] [id number] [address] [place] [address], [place] [address] Apr, 2013 [facility] [place] [facility] [address] [id number] [address] [place] [address], [place] [address] 25 Apr, 2013 [facility] [place] [facility] [address] [id number] [address] [place] [address], [place] [address] Apr, [facility] [place] [facility] [address] [id number] [address] [place] [address], [place] [address] Apr, 2013 [facility] [place] [facility] [address] [id number] [address] [place] [address], [place] [address] Apr, 2013 [facility] [place] [facility] [address] [id number] [address] [place] [address], [place] [address] Apr, [facility] [place] [facility] [address] [id number] [address] [place] [address], [place] [address] Apr, [facility] [place] [facility] [address] [id number] [address] [place] [address], [place] [address] Apr, [facility] [place] [facility] [address] [id number] [address] [place] [address], [place] [address] Mar, [facility] [place] [facility] [address] [id number] [address] [place] [address], [place] [address] Mar, [facility] [place] [facility] [address] [id number] [address] [place] [address], [place] [address] Mar, [facility] [place] [facility] [address] [id number] [address] [place] [address], [place] [address] Mar, [facility] [place] [facility] [address] [id number] [address] [place] [address], [place] [address] Mar, [facility] [place] [facility] [address] [id number] [address] [place] [address], [place] [address] Mar, [facility] [place] [facility] [address] [id number] [address] [place] [address], [place] [address] Feb, [facility] [place] [facility] [address] [id number] [address] [place] [address], [place] [address] Feb, [facility] [place] [facility] [address] [id number] [address] [place] [address], [place] [address] Jan, [facility] [address] [id number] [address] [place] [address], [place] [address] Jan, [facility] [address] [id number] [address] [place] [address], [place] [address] Jan, [facility] [address] [id number] [address] [place] [address], [place] [address] Jan, [facility] [address] [id number] [address] [place] [address], [place] [address] December, [facility] [address] [id number] [address] [place] [address], [place] [address] December, [facility] [address] [id number] [address] [place] [address], [place] [address] December, [facility] [address] [id number] [address] [place] [address], [place] [address] December, [facility] [address] [id number] [address] [place] [address], [place] [address] December, [facility] [address] [id number] [address] [place] [address], [place] [address] December, [facility] [address] [id number] [address] [place] [address], [place] [address] December, [facility] [address] [id number] [address] [place] [address], [place] [address] December, [facility] [address] [id number] [address] [place] [address], [place] [address] December, [facility] [address] [id number] [address] [place] [address], [place] [id number] Nov, [facility] [address] [id number] [address] [place] [address], [place] [address] Nov, [facility] [address] [id number] [address] [place] [address], [place] [address] Nov, [facility] [address] [id number] [address] [place] [address], [place] [address] Nov, [facility] [address] [id number] [address] [place] [address], [place] [address] Nov, [facility] [address] [id number] [address] [place] [address], [place] [address] Nov, [facility] [address] [id number] [address] [place] [address], [place] [address] Nov, [facility] [address] [id number] [address] [place] [address], [place] [address] Nov, [facility] [address] [id number] [address] [place] [address], [place] [address] Nov, [facility] [address] [id number] [address] [place] [address], [place] [address] Nov, [facility] [address] [id number] [address] [place] [address], [place] [address] Oct, [facility] [address] [id number] [address] [place] [address], [place] [address] Oct, [facility] [address] [id number] [address] [place] [address], [place] [address] Sep, [facility] [address] [id number] [address] [place] [address], [place] [address] Sep, [facility] [address] [id number] [address] [place] [address], [place] [address] Aug, [facility] [address] [id number] [address] [place] [address], [place] [address] Aug, [facility] [address] [id number] [address] [place] [address], [place] [address] Aug, [facility] [address] [id number] [address] [place] [address], [place] [address] Aug, [facility] [address] [id number] [address] [place] [id number] Jul, [facility] [address] [id number] [address] [place] [address], [place] [id number] Jul, [facility] [address] [id number] [address] [place] [address], [place] [id number] Jul, [facility] [address] [id number] [address] [place] [address], [place] [id number] Jul, [facility] [address] [id number] [address] [place] [address], [place] [id number] Jun, [facility] [address] [id number] [address] [place] [address], [place] [id number] Jun, [facility] [address] [id number] [address] [place] [address], [place] [id number] May, [facility] [address] [id number] [address] [place] [address], [place] [id number] May, [facility] [address] [id number] [address] [place] [address], [place] [id number] May, [facility] [address] [id number] [address] [place] [address], [place] [id number] May, [facility] [address] [id number] [address] [place] [id number] May, [facility] [address] [id number] [address] [place] [address], [place] [id number] May, [facility] [address] [id number] [address] [place] [id number] 30 Apr, 2013 [facility] [address] [id number] [address] [place] [address], [place] [id number] 23 Apr, 2013 [facility] [address] [id number] [address] [place] [address], [place] [id number] Apr, [facility] [address] [id number] [address] [place] [address], [place] [id number] Feb, [facility] [address] [id number] [address] [place] [address], [place] [id number] 27 Jan, 2013 [facility] [address] [id number] [address] [place] [address], [place] [id number] 18 Jan, 2013 [facility] [address] [id number] [address] [place] [address], [place] [id number] 17 Jan, 2013 [facility] [address] [id number] [address] [place] [address], [place] [id number] 14 Jan, 2013 [facility] [address] [id number] [address] [place] [address], [place] [id number] December, [facility] [address] [id number] [address] [place] [address], [place] [id number] December, [facility] [address] [id number] [address] [place] [address], [place] [id number] 24 Nov, 2012 [facility] [address] [id number] [address] [place] [address], [place] [id number] 23 Nov, 2012 [facility] [address] [id number] [address] [place] [address], [place] [id number] Nov, [facility] [address] [id number] [address] [place] [address], [place] [id number] Nov, [facility] [address] [id number] [address] [place] [address], [place] [id number] 08 Nov, 2012 [facility] [address] [id number] [address] [place] [address], [place] [id number] 08 Nov, 2012 [facility] [address] [id number] [address] [place] [address], [place] [id number] 03 Nov, 2012 [facility] [address] [id number] [address] [place] [address], [place] [id number] 27 Oct, 2012 [facility] [address] [id number] [address] [place] [address], [place] [id number] 18 Oct, 2012 [facility] [address] [id number] [address] [place] [address], [place] [id number] 14 Oct, 2012 [facility] [address] [id number] [address] [place] [address], [place] [id number] 13 Oct, 2012 [facility] [address] [id number] [address] [place] [address], [place] [id number] 12 Oct, 2012 [facility] [address] [id number] [address] [place] [address], [place] [id number] 11 Oct, 2012 [facility] [address] [id number] [address] [place] [address], [place] [id number] 08 Oct, 2012 [facility] [address] [id number] [address] [place] [address], [place] [id number] 20 Sep, 2012 [facility] [address] [id number] [address] [place] [address], [place] [id number] Sep, [facility] [address] [id number] [address] [place] [address], [place] [id number] Aug, [facility] [address] [id number] [address] [place] [address], [place] [id number] Aug, [facility] [address] [id number] [address] [place] [address], [place] [id number] Jul, [facility] [address] [id number] [address] [place] [address], [place] [id number] Jul, [facility] [address] [id number] [address] [place] [address], [place] [id number] Jul, [facility] [address] [id number] [address] [place] [address], [place] [id number] Jul, [facility] [address] [id number] [address] [place] [address], [place] [id number] Jul, [facility] [address] [id number] [address] [place] [address], [place] [id number] Jul, [facility] [address] [id number] [address] [place] [address], [place] [id number] Jul, [facility] [address] [id number] [address] [place] [id number] Jul, [facility] [address] [facility] [id number] [address] [place] [id number] Jun, [facility] [address] [facility] [id number] [address] [place] [id number] Jun, IMMUNIZATIONS No Known Immunizations SOCIAL HISTORY Never Assessed REASON FOR VISIT Controlled Med Refill PLAN OF CARE VITAL SIGNS MEDICATIONS Medication Instructions Dosage Frequency Start Date End Date Duration S tatus Hydrocodone-Acetaminophen 5-325 MG Orally 3 times a day prn must last 4 weeks 1 Tablet Apr, Active RESULTS No Results PROCEDURES No Known [...]
--- OUTSIDE RECORDS SUMMARY | 2020-02-11 03:28 | XMS REPORT ---
Author Author АНДРЕЙ Madelineshawn LEONG Organization [facility] Address [address] [place] [address] Care Team Providers Care Electric [employer] Winders Assembler Name Role Phone АНДРЕЙ DANG Unavailable PROBLEMS Type Condition ICD9-CM Code ECU74-OG Code Onset Dates Condition S tatus SNOMED Code Problem Chronic pain G89.29 Active 8336667 1 Problem Pre-diabetes R73.09 Active 2692556 02 Problem Essential hypertension I10 Active 95395406 Problem BMI 45.0-49.9, adult Z68.42 Active 272955930 Problem Numbness and tingling in hands R20.2 Active 112869978 Problem GERD (gastroesophageal reflux disease) K21.9 Active 081010970 Problem Stasis dermatitis of both legs I87.2 Active 27909969 Problem History of abnormal cervical Pap smear Z87.898 Active 354128297 ALLERGIES No Information ENCOUNTERS Encounter Location Date Diagnosis [place] [address] [address] December, Chronic pain G89.29 [place] [address] [address] 12 Nov, 2017 Long-term use of high-risk m edication Z79.899 [place] [address] [place] [id number] [address] [place] [address] Nov, Chronic pain G89.29 [place] [address] [address] Oct, Chronic pain G89.29 ; Pre-di abetes R73.09 ; Long-term use of high- risk medication Z79.899 ; Allergic rhinitis, unspecified seasonality, unspecified trigger J30.9 ; BMI 45.0-49.9, adult Z68.42 and Essential hypertension I10 [facility] [address] [facility] [id number] [address] [place] [address] Oct, Chronic pain G89.29 [facility] [address] [place] [id number] [address] [place] [address] Sep, Chronic pain G89.29 [facility] [address] [place] [id number] [place] [address] Aug, Chronic pain G89.29 [facility] [address] [place] [id number] [address] [place] [address] Jul, [place] [address] [address] Jul, [place] [address] [place] [id number] [place] [address] Jun, Chronic pain G89.29 ; BMI 45 .0-49.9, adult Z68.42 ; Pre-diabetes R73.09 ; Essential hypertension I10 ; GERD (gastroesophageal reflux disease) K21.9 ; Yeast dermatitis B37.2 ; Dysuria R30.0 ; Acute non-recurrent maxillary sinusitis J01.00 and Acute cystitis with hematuria N30.01 [place] [address] [place] [id number] [place] [address] Jun, Chronic pain G89.29 [place] [address] [address] Jun, Acute non-recurrent maxillar y sinusitis J01.00 and BMI 45.0-49.9, adult Z68.42 [facility] [address] [facility] [id number] [address] [place] [address] May, [place] [address] [address] May, Chronic pain G89.29 [facility] [address] [place] [id number] [address] [place] [address] May, [place] [address] [place] [id number] [place] [address] Apr, Chronic pain G89.29 [place] [address] [address] Mar, [place] [address] [place] [id number] [place] [address] Mar, Essential hypertension I10 a nd Pre-diabetes R73.09 [place] [address] [address] 15 Mar, 2017 Chronic pain G89.29 ; Essent ial hypertension I10 ; Depressive disorder, not elsewhere classified F32.9 ; GERD (gastroesophageal reflux disease) K21.9 ; Pre-diabetes R73.09 ; Stasis dermatitis of both legs I87.2 and Acute non-recurrent maxillary sinusitis J01.00 [place] [address] [address] Mar, Chronic pain G89.29 [place] [address] [address] Mar, Achilles tendinitis of right lower extremity M76.61 and Tinea corporis B35.4 [place] [address] [address] 17 Feb, 2017 Yeast dermatitis B37.2 [place] [address] [address] 14 Feb, 2017 Candidal intertrigo B37.2 an d Acute right ankle pain M25.571 [place] [address] [place] [id number] [address] [place] [address] 12 Feb, 2017 Chronic pain G89.29 [place] [address] [place] [id number] [address] [place] [address] Jan, [place] [address] [place] [id number] [address] [place] [address] Jan, Chronic pain G89.29 [place] [address] [facility] [id number] [address] [place] [address] December, Chronic pain G89.29 ; Essent ial hypertension I10 ; Depressive disorder, not elsewhere classified F32.9 ; GERD (gastroesophageal reflux disease) K21.9 ; Pre-diabetes R73.09 ; Screening breast examination Z12.39 ; Stasis dermatitis of both legs I87.2 and Yeast dermatitis B37.[address] [id number] [address] [place] [address] Nov, Chronic pain G89.29 [place] [id number] [address] [place] [address] Nov, Cellulitis of left lower ext remity L03.116 [place] [id number] [address] [place] [address] Nov, Cellulitis of left lower ext remity L03.116 [place] [address] [facility] [id number] [address] [place] [address] Oct, Yeast dermatitis B37.2 [place] [id number] [address] [place] [address] Oct, Chronic pain G89.29 [place] [address] [place] [id number] [address] [place] [address] Sep, Chronic pain G89.29 ; Essent ial hypertension I10 ; Depressive disorder, not elsewhere classified F32.9 and GERD (gastroesophageal reflux disease) K21.9 [place] [address] [facility] [id number] [address] [place] [address] Aug, Chronic pain G89.[address] [address] Aug, Cough R05 ; Rash R21 and Vinay h and nonspecific skin eruption R21 [place] [id number] [address] [place] [address] Jul, Chronic pain G89.29 [place] [address] [address] Jun, Chronic pain G89.29 ; Bronch itis J40 ; Essential hypertension I10 ; Depressive disorder, not elsewhere classified F32.9 ; GERD (gastroesophageal reflux disease) K21.9 and History of long-term use of multiple prescription drugs Z92.29 [place] [address] [address] Jun, Bronchitis J40 ; Chills R68. 83 and Sore throat J02.9 [place] [address] [address] May, [place] [address] [address] Apr, [facility] [address] [address] Apr, Acute mucoid otitis media of both ears H65.113 [place] [address] [address] 07 Apr, 2016 Yeast dermatitis B37.2 and H ematuria R31.9 [place] [address] [address] Mar, [place] [address] [address] Mar, [place] [address] [address] Feb, Left anterior knee pain M25. 562 [place] [address] [address] Feb, Chronic pain G89.29 ; Essent ial hypertension I10 ; Depressive disorder, not elsewhere classified F32.9 ; GERD (gastroesophageal reflux disease) K21.9 and History of long-term use of multiple prescription drugs Z92.29 [place] [address] [address] Jan, [place] [id number] [place] [address] Jan, Well woman exam Z01.419 ; BM I 45.0-49.9, adult Z68.42 ; Family history of diabetes mellitus Z83.3 and Chronic pain G89.[address] [address] December, Chronic pain G89.29 ; Essent ial hypertension I10 ; Depressive disorder, not elsewhere classified F32.9 ; GERD (gastroesophageal reflux disease) K21.9 ; 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 ; History of long-term use of multiple prescription drugs Z92.29 and Obesity E66.[address] [address] Oct, [address] [address] Oct, Well woman exam Z01.419 ; BM [...] smear Z12.4 and No natural teeth K00.0 [place] [id number] [address] [place] [address] Oct, [address] [address] Sep, Chronic pain G89.29 ; Essent ial hypertension I10 ; GERD (gastroesophageal reflux disease) K21.9 ; 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 ; Skin infection L08.9 and History of long-term use of multiple prescription drugs Z92.[address] [address] Aug, [facility] [address] [facility] [id number] [address] [place] [address] Jul, [facility] [address] [facility] [id number] [address] [place] [address] Jul, [facility] [address] [place] [id number] [address] [place] [address] Jul, Upper respiratory infection J06.9 [facility] [address] [facility] [id number] [address] [place] [address] Jul, Depressive disorder, not els ewhere classified F32.9 [facility] [address] [facility] [id number] [address] [place] [address] Jul, Chronic pain 338.29 [place] [address] [place] [id number] [place] [address] Jul, Chronic pain G89.29 [facility] [address] [place] [id number] [address] [place] [address] Jun, Poison josep L23.7 [place] [address] [place] [id number] [place] [address] Jun, Allergic contact dermatitis due to plants, except food L23.7 [place] [address] [place] [id number] [address] [place] [address] Jun, Essential hypertension I10 ; Chronic pain G89.29 ; GERD (gastroesophageal reflux disease) K21.9 and Numbness and tingling in hands R20.2 [facility] [address] [facility] [id number] [address] [place] [address] May, [facility] [address] [place] [id number] [address] [place] [address] Apr, [facility] [address] [place] [id number] [address] [place] [address] Mar, [facility] [address] [place] [id number] [place] [address] Feb, Abdominal pain, left lateral 789.09 and Constipation 564.00 [facility] [address] [place] [id number] [place] [address] Feb, Depressive disorder, not els ewhere classified 311 and No condition on Taberg II V71.09 [facility] [address] [place] [id number] [address] [place] [address] Feb, Spider bite 989.5 and Depres homar 311 [facility] [address] [place] [id number] [place] [address] Feb, [facility] [address] [address] Feb, Chronic pain 338.29 ; Arthro zonia 716.90 and GERD (gastroesophageal reflux disease) 530.81 [place] [address] [place] [id number] [place] [address] Jan, Insect bites 919.4 [facility] [address] [place] [id number] [address] [place] [address] Jan, [facility] [address] [place] [id number] [place] [address] December, Skin infection, bacterial 68 6.9 ; Conjunctivitis 372.30 and Insect bites 919.4 [facility] [address] [place] [id number] [address] [place] [address] December, Chronic pain 338.29 ; Arthro zonia 716.90 ; Skin infection, bacterial 686.9 and Conjunctivitis 372.30 [facility] [address] [place] [id number] [address] [place] [address] December, [facility] [address] [place] [id number] [place] [address] Nov, [facility] [address] [place] [id number] [address] [place] [address] Nov, [facility] [address] [id number] [address] [place] [address], [place] [address] Oct, [facility] [address] [id number] [address] [place] [address], [place] [address] Oct, [facility] [address] [id number] [address] [place] [address], [place] [address] Sep, [facility] [address] [id number] [address] [place] [address], [place] [address] Sep, [facility] [address] [id number] [address] [place] [address], [place] [address] Aug, [facility] [address] [id number] [address] [place] [address], [place] [address] Aug, [facility] [address] [id number] [address] [place] [address], [place] [address] Aug, [facility] [address] [id number] [address] [place] [address], [place] [address] Aug, [facility] [address] [id number] [address] [place] [address], [place] [address] Jul, [facility] [address] [id number] [address] [place] [address], [place] [address] Jul, [facility] [address] [id number] [address] [place] [address], [place] [address] Jul, [facility] [address] [id number] [address] [place] [address], [place] [address] Jul, [facility] [address] [id number] [address] [place] [address], [place] [address] Jul, [facility] [address] [id number] [address] [place] [address], [place] [address] Jul, [facility] [address] [id number] [address] [place] [address], [place] [address] Jul, [facility] [address] [id number] [address] [place] [address], [place] [address] Jul, [facility] [address] [id number] [address] [place] [address], [place] [address] Jul, [facility] [address] [id number] [address] [place] [address], [place] [address] Jun, [facility] [address] [id number] [address] [place] [address], [place] [address] Jun, [facility] [address] [id number] [address] [place] [address], [place] [address] Jun, [facility] [address] [id number] [address] [place] [address], [place] [address] Jun, [facility] [address] [id number] [address] [place] [address], [place] [address] Jun, [facility] [address] [id number] [address] [place] [address], [place] [address] Jun, [facility] [address] [id number] [address] [place] [address], [place] [address] Jun, [facility] [address] [id number] [address] [place] [address], [place] [address] Jun, [facility] [address] [id number] [address] [place] [address] May, [facility] [address] [id number] [address] [place] [address] May, [facility] [address] [id number] [address] [place] [address] May, [facility] [address] [id number] [address] [place] [address], [place] [address] May, [facility] [address] [id number] [address] [place] [address], [place] [address] May, [facility] [address] [id number] [address] [place] [address] Apr, [facility] [address] [id number] [address] [place] [address] 26 Apr, 2013 [facility] [address] [id number] [address] [place] [address], [place] [address] 25 Apr, 2013 [facility] [address] [id number] [address] [place] [address], [place] [address] 25 Apr, 2013 [facility] [address] [id number] [address] [place] [address], [place] [address] 18 Apr, 2013 [facility] [address] [id number] [address] [place] [address], [place] [address] 18 Apr, 2013 [facility] [address] [id number] [address] [place] [address], [place] [address] 18 Apr, 2013 [facility] [address] [id number] [address] [place] [address], [place] [address] Apr, 2013 [facility] [address] [id number] [address] [place] [address], [place] [address] Apr, [facility] [address] [id number] [address] [place] [address], [place] [address] Apr, [facility] [address] [id number] [address] [place] [address], [place] [address] Mar, [facility] [address] [id number] [address] [place] [address], [place] [address] Mar, [facility] [address] [id number] [address] [place] [address], [place] [address] Mar, [facility] [address] [id number] [address] [place] [address], [place] [address] Mar, [facility] [address] [id number] [address] [place] [address], [place] [address] Mar, [facility] [address] [id number] [address] [place] [address], [place] [address] Mar, [facility] [address] [id number] [address] [place] [address], [place] [address] Feb, [facility] [address] [id number] [facility] [place] [address] Feb, [facility] [address] [id number] [address] [place] [address], [place] [address] Jan, [facility] [address] [id number] [address] [place] [address], [place] [address] Jan, [facility] [address] [id number] [address] [place] [address], [place] [address] Jan, [facility] [address] [id number] [address] [place] [address], [place] [address] Jan, [facility] [address] [id number] [address] [place] [address], [place] [address] December, [facility] [address] [id number] [address] [place] [address], [place] [address] December, [facility] [address] [id number] [address] [place] [address], [place] [address] December, [facility] [address] [id number] [address] [place] [address], [place] [address] December, [facility] [address] [id number] [address] [place] [address], [place] [address] December, [facility] [address] [id number] [address] [place] [address], [place] [address] December, [facility] [address] [id number] [address] [place] [address], [place] [address] December, [facility] [address] [id number] [address] [place] [address], [place] [address] December, [facility] [address] [id number] [address] [place] [address], [place] [address] December, [facility] [address] [id number] [address] [place] [address], [place] [address] Nov, [facility] [address] [id number] [address] [place] [address], [place] [address] Nov, [facility] [address] [id number] [facility] [place] [address] Nov, [facility] [address] [id number] [address] [place] [address], [place] [address] Nov, [facility] [address] [id number] [address] [place] [address], [place] [address] Nov, [facility] [address] [id number] [address] [place] [address], [place] [address] Nov, [facility] [address] [id number] [address] [place] [address], [place] [address] Nov, [facility] [address] [id number] [address] [place] [address], [place] [address] Nov, [facility] [address] [id number] [address] [place] [address], [place] [address] Nov, [facility] [address] [id number] [address] [place] [address], [place] [address] Nov, [facility] [address] [id number] [address] [place] [address], [place] [address] Oct, [facility] [address] [id number] [address] [place] [address], [place] [address] Oct, [facility] [address] [id number] [address] [place] [address], [place] [address] Sep, [facility] [address] [id number] [address] [place] [address], [place] [address] Sep, [facility] [address] [id number] [address] [place] [address], [place] [address] Aug, [facility] [address] [id number] [address] [place] [address], [place] [address] Aug, [facility] [address] [id number] [address] [place] [address], [place] [address] Aug, [facility] [address] [id number] [address] [place] [address], [place] [address] 16 Aug, 2013 [facility] [address] [id number] [address] [place] [address], [place] [address] Jul, [facility] [address] [id number] [address] [place] [address], [place] [address] Jul, [facility] [address] [id number] [address] [place] [address], [place] [address] Jul, [facility] [address] [id number] [address] [place] [address], [place] [address] Jul, [facility] [address] [id number] [address] [place] [address], [place] [address] Jun, [facility] [address] [id number] [address] [place] [address], [place] [address] Jun, [facility] [address] [id number] [address] [place] [address], [place] [address] May, [facility] [address] [id number] [address] [place] [address], [place] [address] May, [facility] [address] [id number] [address] [place] [address], [place] [address] May, [facility] [address] [id number] [address] [place] [address], [place] [address] May, [facility] [address] [id number] [address] [place] [address], [place] [address] May, [facility] [address] [id number] [address] [place] [address], [place] [address] May, [facility] [address] [id number] [address] [place] [address], [place] [address] 30 Apr, 2013 [facility] [address] [id number] [address] [place] [address], [place] [address] 23 Apr, 2013 [facility] [address] [id number] [address] [place] [address], [place] [address] Apr, [facility] [address] [id number] [address] [place] [address], [place] [address] Feb, [facility] [address] [id number] [address] [place] [address], [place] [address] Jan, [facility] [address] [id number] [address] [place] [address], [place] [address] Jan, [facility] [address] [id number] [address] [place] [address], [place] [address] Jan, [facility] [address] [id number] [address] [place] [address], [place] [address] Jan, [facility] [address] [id number] [address] [place] [address], [place] [address] December, [facility] [address] [id number] [address] [place] [address], [place] [address] December, [facility] [address] [id number] [address] [place] [address], [place] [address] Nov, [facility] [address] [id number] [address] [place] [address], [place] [address] Nov, [facility] [address] [id number] [address] [place] [address], [place] [address] Nov, [facility] [address] [id number] [address] [place] [address], [place] [address] Nov, [facility] [facility] [address] [id number] [address] [place] [address], [place] [address] Nov, [facility] [address] [id number] [address] [place] [address], [place] [address] Nov, [facility] [address] [id number] [address] [place] [address], [place] [address] Nov, [facility] [address] [id number] [address] [place] [address], [place] [address] Oct, [facility] [address] [id number] [address] [place] [address], [place] [address] 18 Oct, 2012 [facility] [address] [id number] [address] [place] [address], [place] [address] 14 Oct, 2012 [facility] [address] [id number] [address] [place] [address], [place] [address] 13 Oct, 2012 [facility] [address] [id number] [address] [place] [address], [place] [address] 12 Oct, 2012 [facility] [address] [id number] [address] [place] [address], [place] [address] 11 Oct, 2012 [facility] [address] [id number] [address] [place] [address], [place] [address] 08 Oct, 2012 [facility] [address] [id number] [address] [place] [address], [place] [address] 20 Sep, 2012 [facility] [address] [id number] [address] [place] [address], [place] [address] Sep, [facility] [address] [id number] [address] [place] [address], [place] [address] Aug, [facility] [address] [id number] [address] [place] [address], [place] [address] Aug, [facility] [address] [id number] [address] [place] [address], [place] [address] Jul, [facility] [address] [id number] [address] [place] [address], [place] [address] Jul, [facility] [address] [id number] [address] [place] [address], [place] [address] Jul, [facility] [address] [id number] [address] [place] [address], [place] [address] Jul, [facility] [address] [id number] [address] [place] [address], [place] [address] Jul, [facility] [address] [id number] [address] [place] [address], [place] [address] Jul, [facility] [address] [facility] [id number] [address] [place] [address] Jul, [facility] [address] [facility] [id number] [address] [place] [address] Jul, [facility] [address] [facility] [id number] [address] [place] [address] Jun, [facility] [address] [facility] [id number] [address] [place] [phone] Jun, IMMUNIZATIONS No Known Immunizations SOCIAL HISTORY [...]
--- OUTSIDE RECORDS SUMMARY | 2020-02-11 03:29 | XMS REPORT | Continuity of Care Document ---
Author Organization Unknown Address Unknown Phone Unavailable Allergies Active Description Code Type Severity Reaction Onset Reported/Identified Relationship to Patient Clinical Status Yes DIFLUCAN MODERATE DERMATOLOGICAL - ZOILA Yes DIFLUCAN MODERATE MODERATE Yes LEVAQUIN MODERATE DERMATOLOGICAL - ZOILA Yes LEVAQUIN MODERATE MODERATE Yes MELOXICAM MODERATE DERMATOLOGICAL - HIV Yes MELOXICAM MODERATE MODERATE Yes PREDNISONE MODERATE DERMATOLOGICAL - HIV Yes PREDNISONE MODERATE MODERATE Yes meloxicam 7.5 mg tablet Drug Allergy 07/13/2012 Yes meloxicam 7.5 mg tablet Drug Allergy N/A N/A 07/13/2012 Yes meloxicam [id number] Drug Allergy Unknown NAUSEA 04/20/2014 Yes prednisone [id number] Drug Allerg y Severe RASH 12/24/2016 Medications Medication Packaging Start Date St op Date Route Dosage Sig KETOROLAC VIAL INJ 60 MG/2CC (TORADOL VIAL ) MG 04/25/2018 04/25/2018 ONCE&1900 PROMETHAZINE VIAL INJ 25 MG/CC (PHENERGAN VIAL) MG 02/02/2019 02/02/2019 PRN ONCE MEPERIDINE SYRINGE INJ 50 MG /CC (DEMEROL SYRINGE) MG 02/02/2019 02/02/2019 PRN ONCE Problems Date Dx Coded Attending Type Code Diagnosis Diagnosed By 01/28/2011 Ot 843.9 SPRA IN HIP THIGH NOS 01/28/2011 Ot 959.3 ELB/ FOREARM/WRST INJ NOS 01/28/2011 Ot E000.8 OTH ER EXTERNAL CAUSE STATUS 01/28/2011 Ot E007.9 OT ACT INVG OTH SPORTS ATHLETES PLAYE 01/28/2011 Ot E849.4 ACC ID IN RECREATION AREA 01/28/2011 Ot E886.0 FAL L IN SPORTS 04/24/2011 Ot 724.2 LUMBAGO 04/24/2011 Ot 724.3 SCIA THOR 07/05/2012 278.00 OBESITY 07/05/2012 338.29 CHR ONIC PAIN 07/05/2012 716.90 ART HROPATHY 07/05/2012 796.2 Bloo d Pressure Isolated Elevated 07/05/2012 MUSA MUNGUIA MD 278.0 0 OBESITY 07/05/2012 MSUA MUNGUIA MD 338.2 9 CHRONIC PAIN 07/05/2012 MUSA MUNGUIA MD 716.9 0 ARTHROPATHY 07/05/2012 MUSA MUNGUIA MD 796.2 Blood Pressure Isolated Elevated 07/05/2012 278.00 OBESITY 07/05/2012 338.29 CHR ONIC PAIN 07/05/2012 716.90 ART HROPATHY 07/05/2012 796.2 Bloo d Pressure Isolated Elevated 07/05/2012 MUSA MUNGUIA MD 278.0 0 OBESITY 07/05/2012 MUSA MUNGUIA MD 338.2 9 CHRONIC PAIN 07/05/2012 MUSA MUNGUIA MD 716.9 0 ARTHROPATHY 07/05/2012 MUSA MUNGUIA MD 796.2 Blood Pressure Isolated Elevated 07/05/2012 MUSA MUNGUIA MD 278.0 0 OBESITY 07/05/2012 MUSA MUNGUIA MD 338.2 9 CHRONIC PAIN 07/05/2012 MUSA MUNGUIA MD 716.9 0 ARTHROPATHY 07/05/2012 MUSA MUNGUIA MD 796.2 Blood Pressure Isolated Elevated 07/05/2012 DIXON DO, KAVITHA K 278.00 OBESITY 07/05/2012 DIXON DO, KAVITHA K 338.29 CHRONIC PAIN 07/05/2012 DIXON DO, KAVITHA K 716.90 ARTHROPATHY 07/05/2012 DIXON DO, KAVITHA K 796.2 Blood Pressure Isolated Elevated 07/05/2012 LYNN BARROW APRNIDI A 278.00 OBESITY 07/05/2012 DANIAL APRN, CAROL A 338.29 CHRONIC PAIN 07/05/2012 DANIAL BASHIR CAROL A 716.90 ARTHROPATHY 07/05/2012 DANIAL BASHIR CAROL A 79 6.2 Blood Pressure Isolated Elevated 07/05/2012 278.00 OBESITY 07/05/2012 338.29 CHR ONIC PAIN 07/05/2012 716.90 ART HROPATHY 07/05/2012 796.2 Bloo d Pressure Isolated Elevated 07/05/2012 278.00 OBESITY 07/05/2012 338.29 CHR ONIC PAIN 07/05/2012 716.90 ART HROPATHY 07/05/2012 796.2 Bloo d Pressure Isolated Elevated 07/05/2012 278.00 OBESITY 07/05/2012 338.29 CHR ONIC PAIN 07/05/2012 716.90 ART HROPATHY 07/05/2012 796.2 Bloo d Pressure Isolated Elevated 07/05/2012 MICHAEL NOLAN MD 278.00 OBESITY 07/05/2012 MICHAEL NOLAN MD 338.29 CHRONIC PAIN 07/05/2012 MICHAEL NOLAN MD 716.90 ARTHROPATHY 07/05/2012 MICHAEL NOLAN MD 796.2 Blood Pressure Isolated Elevated 07/05/2012 MICHAEL NOLAN MD 278.00 OBESITY 07/05/2012 MICHAEL NOLAN MD 338.29 CHRONIC PAIN 07/05/2012 MICHAEL NOLAN MD 716.90 ARTHROPATHY 07/05/2012 MICHAEL NOLAN MD 796.2 Blood Pressure Isolated Elevated 07/05/2012 SARKIS BHATT APRNCY N 278.00 OBESITY 07/05/2012 SCOTT CHAN APRN KALEN N 338.29 CHRONIC PAIN 07/05/2012 SARKIS BHATT APRNCY N 716.90 ARTHROPATHY 07/05/2012 SARKIS BHATT APRNCY N 796.2 Blood Pressure Isolated Elevated 07/05/2012 MICHAEL NOLAN MD 278.00 OBESITY 07/05/2012 MICHAEL NOLAN MD 338.29 CHRONIC PAIN 07/05/2012 MICHAEL NOLAN MD 716.90 ARTHROPATHY 07/05/2012 MICHAEL NOLAN MD 796.2 Blood Pressure Isolated Elevated 07/05/2012 DIXON DO, KAVITHA K 278.00 OBESITY 07/05/2012 DIXON DO, KAVITHA K 338.29 CHRONIC PAIN 07/05/2012 DIXON DO, KAVITHA K 716.90 ARTHROPATHY 07/05/2012 DIXON DO, KAVITHA K 796.2 Blood Pressure Isolated Elevated 07/05/2012 MICHELLE BASHIR WON A 278.00 OBESITY 07/05/2012 RAJOTTE UNDERGRADUATE INTERNSHIP, WON A 338.29 CHRONIC PAIN 07/05/2012 RAJOTTE UNDERGRADUATE INTERNSHIP, WON A 716.90 ARTHROPATHY 07/05/2012 RAJOTTE UNDERGRADUATE INTERNSH[employer], WON A 796.2 Blood Pressure Isolated Elevated 07/05/2012 DIXON DO, KAVITHA K 278.00 OBESITY 07/05/2012 DIXON DO, KAVITHA K 338.29 CHRONIC PAIN 07/05/2012 DIXON DO, KAVITHA K 716.90 ARTHROPATHY 07/05/2012 DIXON DO, KAVITHA K 796.2 Blood Pressure Isolated Elevated 07/05/2012 DIXON DO, KAVITHA K 278.00 OBESITY 07/05/2012 DIXON DO, KAVITHA K 338.29 CHRONIC PAIN 07/05/2012 DIXON DO, KAVITHA K 716.90 ARTHROPATHY 07/05/2012 DIXON DO, KAVITHA K 796.2 Blood Pressure Isolated Elevated 07/05/2012 DIXON DO, KAVITHA K 278.00 OBESITY 07/05/2012 DIXON DO, KAVITHA K 338.29 CHRONIC PAIN 07/05/2012 DIXON DO, KAVITHA K 716.90 ARTHROPATHY 07/05/2012 DIXON DO, KAVITHA K 796.2 Blood Pressure Isolated Elevated 07/05/2012 MADL UNDERGRADUATE INTERNSHIP, DANG L 278 .00 OBESITY 07/05/2012 MADL UNDERGRADUATE INTERNSHIP, DANG L 338 .29 CHRONIC PAIN 07/05/2012 MADL UNDERGRADUATE INTERNSHIP, DANG L 716 .90 ARTHROPATHY 07/05/2012 MADL UNDERGRADUATE INTERNSHIP, DANG L 796 .2 Blood Pressure Isolated Elevated 07/05/2012 MADL UNDERGRADUATE INTERNSHIP, DANG L 278 .00 OBESITY 07/05/2012 MADL UNDERGRADUATE INTERNSHIP, DANG L 338 .29 CHRONIC PAIN 07/05/2012 MADL UNDERGRADUATE INTERNSHIP, DANG L 716 .90 ARTHROPATHY 07/05/2012 MADL UNDERGRADUATE INTERNSHIP, DANG L 796 .2 Blood Pressure Isolated Elevated 07/05/2012 MADL UNDERGRADUATE INTERNSHIP, DANG L 278 .00 OBESITY 07/05/2012 MADL UNDERGRADUATE INTERNSHIP, DANG L 338 .29 CHRONIC PAIN 07/05/2012 MADL UNDERGRADUATE INTERNSHIP, DANG L 716 .90 ARTHROPATHY 07/05/2012 MADL UNDERGRADUATE INTERNSHIP, DANG L 796 .2 Blood Pressure Isolated Elevated 07/05/2012 MADL UNDERGRADUATE INTERNSHIP, DANG L 278 .00 OBESITY 07/05/2012 MADL UNDERGRADUATE INTERNSHIP, DANG L 338 .29 CHRONIC PAIN 07/05/2012 MADL UNDERGRADUATE INTERNSHIP, DANG L 716 .90 ARTHROPATHY 07/05/2012 MADL UNDERGRADUATE INTERNSHIP, DANG L 796 .2 Blood Pressure Isolated Elevated 07/05/2012 HITESH BURTON APRN 278. 00 OBESITY 07/05/2012 HITESH BURTON APRN D 338. 29 CHRONIC PAIN 07/05/2012 HITESH BURTON APRN 716. 90 ARTHROPATHY 07/05/2012 HITESH BURTON APRN 796. 2 Blood Pressure Isolated Elevated 07/05/2012 MADL UNDERGRADUATE INTERNSHIP, DANG L 278 .00 OBESITY 07/05/2012 MADL UNDERGRADUATE INTERNSHIP, DANG L 338 .29 CHRONIC PAIN 07/05/2012 MADL UNDERGRADUATE INTERNSHIP, DANG L 716 .90 ARTHROPATHY 07/05/2012 KWESIL UNDERGRADUATE INTERNSHIP, DANG L 796 .2 Blood Pressure Isolated Elevated 07/05/2012 MUSA MUNGUIA MD 278.0 0 OBESITY 07/05/2012 MUSA MUNGUIA MD 338.2 9 CHRONIC PAIN 07/05/2012 MUSA MUNGUIA MD 716.9 0 ARTHROPATHY 07/05/2012 MUSA MUNGUIA MD 796.2 Blood Pressure Isolated Elevated 07/05/2012 HITESH BURTON APRN 278. 00 OBESITY 07/05/2012 HITESH BURTON APRN 338. 29 CHRONIC PAIN 07/05/2012 HITESH BURTON APRN 716. 90 ARTHROPATHY 07/05/2012 HITESH BURTON APRN 796. 2 Blood Pressure Isolated Elevated 07/05/2012 MADL UNDERGRADUATE INTERNSHIP, DANG L 278 .00 OBESITY 07/05/2012 MADL UNDERGRADUATE INTERNSHIP, DANG L 338 .29 CHRONIC PAIN 07/05/2012 MADL UNDERGRADUATE INTERNSHIP, DANG L 716 .90 ARTHROPATHY 07/05/2012 MADL UNDERGRADUATE INTERNSHIP, DANG L 796 .2 Blood Pressure Isolated Elevated 07/05/2012 MADL UNDERGRADUATE INTERNSHIP, DANG L 278 .00 OBESITY 07/05/2012 MADL UNDERGRADUATE INTERNSHIP, DANG L 338 .29 CHRONIC PAIN 07/05/2012 MADL UNDERGRADUATE INTERNSHIP, DANG L 716 .90 ARTHROPATHY 07/05/2012 MADL UNDERGRADUATE INTERNSHIP, DANG L 796 .2 Blood Pressure Isolated Elevated 07/05/2012 MADL UNDERGRADUATE INTERNSHIP, DANG L 278 .00 OBESITY 07/05/2012 MADL UNDERGRADUATE INTERNSHIP, DANG L 338 .29 CHRONIC PAIN 07/05/2012 MADL UNDERGRADUATE INTERNSHIP, DANG L 716 .90 ARTHROPATHY 07/05/2012 MADL UNDERGRADUATE INTERNSHIP, DANG L 796 .2 Blood Pressure Isolated Elevated 07/05/2012 MADL UNDERGRADUATE INTERNSHIP, DANG L 278 .00 OBESITY 07/05/2012 MADL UNDERGRADUATE INTERNSHIP, DANG L 338 .29 CHRONIC PAIN 07/05/2012 MADL UNDERGRADUATE INTERNSHIP, DANG L 716 .90 ARTHROPATHY 07/05/2012 MADL UNDERGRADUATE INTERNSHIP, DANG L 796 .2 Blood Pressure Isolated Elevated 07/05/2012 MADL UNDERGRADUATE INTERNSHIP, DANG L 278 .00 OBESITY 07/05/2012 MADL UNDERGRADUATE INTERNSHIP, DANG L 338 .29 CHRONIC PAIN 07/05/2012 MADL UNDERGRADUATE INTERNSHIP, DANG L 716 .90 ARTHROPATHY 07/05/2012 MADL UNDERGRADUATE INTERNSHIP, DANG L 796 .2 Blood Pressure Isolated Elevated 07/05/2012 DIXON DO, KAVITHA K 278.00 OBESITY 07/05/2012 DIXON DO, KAVITHA K 338.29 CHRONIC PAIN 07/05/2012 DIXON DO, KAVITHA K 716.90 ARTHROPATHY 07/05/2012 DIXON DO, KAVITHA K 796.2 BLOOD PRESSURE ISOLATED ELEVATED 07/05/2012 MADL UNDERGRADUATE INTERNSHIP, DANG L 278 .00 OBESITY 07/05/2012 MADL UNDERGRADUATE INTERNSHIP, DANG L 338 .29 CHRONIC PAIN 07/05/2012 MADL UNDERGRADUATE INTERNSHIP, DANG L 716 .90 ARTHROPATHY 07/05/2012 MADL UNDERGRADUATE INTERNSHIP, DANG L 796 .2 BLOOD PRESSURE ISOLATED ELEVATED 07/13/2012 599.0 URIN RAÚL TRACT INFECTION 07/13/2012 626.2 AL RRHAGIA 07/13/2012 MUSA MUNGUIA MD 599.0 URINARY TRACT INFECTION 07/13/2012 MUSA MUNGUIA MD 626.2 MENORRHAGIA 07/13/2012 MUSA MUNGUIA MD 599.0 URINARY TRACT INFECTION 07/13/2012 MUSA MUNGUIA MD 626.2 MENORRHAGIA 07/13/2012 DIXON DO, KAVITHA K 599.0 URINARY TRACT INFECTION 07/13/2012 DIXON DO, KAVITHA K 626.2 MENORRHAGIA 07/13/2012 DANIAL BASHIR CAROL A 59 9.0 URINARY TRACT INFECTION 07/13/2012 DANIAL BASHIR CAROL A 62 6.2 MENORRHAGIA 07/13/2012 599.0 URIN RAÚL TRACT INFECTION 07/13/2012 626.2 AL RRHAGIA 07/13/2012 599.0 URIN RAÚL TRACT INFECTION 07/13/2012 626.2 AL RRHAGIA 07/13/2012 599.0 URIN RAÚL TRACT INFECTION 07/13/2012 626.2 AL RRHAGIA 07/13/2012 MICHAEL NOLAN MD 599.0 URINARY TRACT INFECTION 07/13/2012 MICHAEL NOLAN MD 626.2 MENORRHAGIA 07/13/2012 MICHAEL NOLAN MD 599.0 URINARY TRACT INFECTION 07/13/2012 MICHAEL NOLAN MD 626.2 MENORRHAGIA 07/13/2012 SARKIS BHATT APRNCY N 599.0 URINARY TRACT INFECTION 07/13/2012 SARKIS BHATT APRNCY N 626.2 MENORRHAGIA 07/13/2012 MICHAEL NOLAN MD 599.0 URINARY TRACT INFECTION 07/13/2012 MICHAEL NOLAN MD 626.2 MENORRHAGIA 07/13/2012 DIXON DO, KAVITHA K 599.0 URINARY TRACT INFECTION 07/13/2012 DIXON DO, KAVITHA K 626.2 MENORRHAGIA 07/13/2012 MICHELLE BASHIR WON A 599.0 URINARY TRACT INFECTION 07/13/2012 MICHELLE BASHIR WON A 626.2 MENORRHAGIA 07/13/2012 DIXON DO, KAVITHA K 599.0 URINARY TRACT INFECTION 07/13/2012 DIXON DO, KAVITHA K 626.2 MENORRHAGIA 07/13/2012 DIXON DO, KAVITHA K 599.0 URINARY TRACT INFECTION 07/13/2012 DIXON DO, KAVITHA K 626.2 MENORRHAGIA 07/13/2012 DIXON DO, KAVITHA K 599.0 URINARY TRACT INFECTION 07/13/2012 DIXON DO, KAVITHA K 626.2 MENORRHAGIA 07/13/2012 MADL UNDERGRADUATE INTERNSHIP, DANG L 599 .0 URINARY TRACT INFECTION 07/13/2012 MADL UNDERGRADUATE INTERNSHIP, DANG L 626 .2 MENORRHAGIA 07/13/2012 MADL UNDERGRADUATE INTERNSHIP, DANG L 599 .0 URINARY TRACT INFECTION 07/13/2012 MADL UNDERGRADUATE INTERNSHIP, DANG L 626 .2 MENORRHAGIA 07/13/2012 MADL UNDERGRADUATE INTERNSHIP, DANG L 599 .0 URINARY TRACT INFECTION 07/13/2012 MADL UNDERGRADUATE INTERNSHIP, DANG L 626 .2 MENORRHAGIA 07/13/2012 MADL UNDERGRADUATE INTERNSHIP, DANG L 599 .0 URINARY TRACT INFECTION 07/13/2012 MADL UNDERGRADUATE INTERNSHIP, DANG L 626 .2 MENORRHAGIA 07/13/2012 BURTON UNDERGRADUATE INTERNSHIPHITEHS Hussein 599. 0 URINARY TRACT INFECTION 07/13/2012 BURTON UNDERGRADUATE INTERNSHIPHITESH Hussein 626. 2 MENORRHAGIA 07/13/2012 MADL UNDERGRADUATE INTERNSHIP, DANG L 599 .0 URINARY TRACT INFECTION 07/13/2012 MADL UNDERGRADUATE INTERNSHIP, DANG L 626 .2 MENORRHAGIA 07/13/2012 MUSA MUNGUIA MD 599.0 URINARY TRACT INFECTION 07/13/2012 MUSA MUNGUIA MD 626.2 MENORRHAGIA 07/13/2012 BURTON UNDERGRADUATE INTERNSHIPHITESH Hussein 599. 0 URINARY TRACT INFECTION 07/13/2012 BURTON UNDERGRADUATE INTERNSHIPHITESH Hussein 626. 2 MENORRHAGIA 07/13/2012 MADL UNDERGRADUATE INTERNSHIP, DANG L 599 .0 URINARY TRACT INFECTION 07/13/2012 MADL UNDERGRADUATE INTERNSHIP, DANG L 626 .2 MENORRHAGIA 07/13/2012 MADL UNDERGRADUATE INTERNSHIP, DANG L 599 .0 URINARY TRACT INFECTION 07/13/2012 MADL UNDERGRADUATE INTERNSHIP, DANG L 626 .2 MENORRHAGIA 07/13/2012 MADL UNDERGRADUATE INTERNSHIP, DANG L 599 .0 URINARY TRACT INFECTION 07/13/2012 MADL UNDERGRADUATE INTERNSHIP, DANG L 626 .2 MENORRHAGIA 07/13/2012 MADL UNDERGRADUATE INTERNSHIP, DANG L 599 .0 URINARY TRACT INFECTION 07/13/2012 MADL UNDERGRADUATE INTERNSHIP, DANG L 626 .2 MENORRHAGIA 07/13/2012 MADL UNDERGRADUATE INTERNSHIP, DANG L 599 .0 URINARY TRACT INFECTION 07/13/2012 MADL UNDERGRADUATE INTERNSHIP, DANG L 626 .2 MENORRHAGIA 07/13/2012 DIXON DO, KAVITHA K 599.0 URINARY TRACT INFECTION 07/13/2012 DIXON DO, KAVITHA K 626.2 MENORRHAGIA 07/13/2012 MADL UNDERGRADUATE INTERNSHIP, DANG L 599 .0 URINARY TRACT INFECTION 07/13/2012 MADL UNDERGRADUATE INTERNSHIP, DANG L 626 .2 MENORRHAGIA 07/25/2012 MUSA MUNGUIA MD 401.1 ESSENTIAL HYPERTENSION BENIGN 07/25/2012 MUSA MUNGUIA MD 401.1 ESSENTIAL HYPERTENSION BENIGN 07/25/2012 DIXON DO, KAVITHA K 401.1 ESSENTIAL HYPERTENSION BENIGN 07/25/2012 CAROL BARROW APRN A 40 1.1 ESSENTIAL HYPERTENSION BENIGN 07/25/2012 401.1 ESSE NTIAL HYPERTENSION BENIGN 07/25/2012 401.1 ESSE NTIAL HYPERTENSION BENIGN 07/25/2012 401.1 ESSE NTIAL HYPERTENSION BENIGN 07/25/2012 MICHAEL NOLAN MD 401.1 ESSENTIAL HYPERTENSION BENIGN 07/25/2012 MICHAEL NOLAN MD 401.1 ESSENTIAL HYPERTENSION BENIGN 07/25/2012 KALEN BHATT APRN 401.1 ESSENTIAL HYPERTENSION BENIGN 07/25/2012 MICHAEL NOLAN MD 401.1 ESSENTIAL HYPERTENSION BENIGN 07/25/2012 DIXON DO, KAVITHA K 401.1 ESSENTIAL HYPERTENSION BENIGN 07/25/2012 WON MARTINEZ APRN A 401.1 ESSENTIAL HYPERTENSION BENIGN 07/25/2012 DIXON DO, KAVITHA K 401.1 ESSENTIAL HYPERTENSION BENIGN 07/25/2012 DIXON DO, KAVITHA K 401.1 ESSENTIAL HYPERTENSION BENIGN 07/25/2012 DIXON DO, KAVITHA K 401.1 ESSENTIAL HYPERTENSION BENIGN 07/25/2012 KWESIKennedy UNDERGRADUATE INTERNSHIP, DANG L 401 .1 ESSENTIAL HYPERTENSION BENIGN 07/25/2012 MADL UNDERGRADUATE INTERNSHIP, DANG L 401 .1 ESSENTIAL HYPERTENSION BENIGN 07/25/2012 MADL UNDERGRADUATE INTERNSHIP, DANG L 401 .1 ESSENTIAL HYPERTENSION BENIGN 07/25/2012 MADL UNDERGRADUATE INTERNSHIP, DANG L 401 .1 ESSENTIAL HYPERTENSION BENIGN 07/25/2012 HITESH BURTON APRN 401. 1 ESSENTIAL HYPERTENSION BENIGN 07/25/2012 MADL UNDERGRADUATE INTERNSHIP, DANG L 401 .1 ESSENTIAL HYPERTENSION BENIGN 07/25/2012 MUSA MUNGUIA MD 401.1 ESSENTIAL HYPERTENSION BENIGN 07/25/2012 HITESH BURTON APRN 401. 1 ESSENTIAL HYPERTENSION BENIGN 07/25/2012 MADL UNDERGRADUATE INTERNSHIP, DANG L 401 .1 ESSENTIAL HYPERTENSION BENIGN 07/25/2012 MADL UNDERGRADUATE INTERNSHIP, DANG L 401 .1 ESSENTIAL HYPERTENSION BENIGN 07/25/2012 MADL UNDERGRADUATE INTERNSHIP, DANG L 401 .1 ESSENTIAL HYPERTENSION BENIGN 07/25/2012 MADL UNDERGRADUATE INTERNSHIP, DANG L 401 .1 ESSENTIAL HYPERTENSION BENIGN 07/25/2012 KWESIL UNDERGRADUATE INTERNSHIP, DANG L 401 .1 ESSENTIAL HYPERTENSION BENIGN 07/25/2012 KAVITHA DIXON DO K 401.1 ESSENTIAL HYPERTENSION BENIGN 07/25/2012 MADL UNDERGRADUATE INTERNSHIP, DANG L 401 .1 ESSENTIAL HYPERTENSION BENIGN 08/10/2012 Ot 719.45 NOLBERTO NT PAIN-PELVIS 08/10/2012 Ot V57.1 PHYS ICAL THERAPY NEC 09/26/2012 MUSA MUNGUIA MD 461.9 SINUSITIS ACUTE 09/26/2012 KAVITHA DIXON DO 461.9 SINUSITIS ACUTE 09/26/2012 CAROL BARROW APRN 46 1.9 SINUSITIS ACUTE 09/26/2012 461.9 SINU SITIS ACUTE 09/26/2012 461.9 SINU SITIS ACUTE 09/26/2012 461.9 SINU SITIS ACUTE 09/26/2012 MICHAEL NOLAN MD 461.9 SINUSITIS ACUTE 09/26/2012 MICHAEL NOLAN MD 461.9 SINUSITIS ACUTE 09/26/2012 SCOTT CHAN APRN KALEN N 461.9 SINUSITIS ACUTE 09/26/2012 MICHAEL NOLAN MD 461.9 SINUSITIS ACUTE 09/26/2012 DIXON DO, KAVITHA K 461.9 SINUSITIS ACUTE 09/26/2012 KRYSTALE OLAMIDE BASHIRYL A 461.9 SINUSITIS ACUTE 09/26/2012 DIXON DO, KAVITHA K 461.9 SINUSITIS ACUTE 09/26/2012 DIXON DO, KAVITHA K 461.9 SINUSITIS ACUTE 09/26/2012 DIXON DO, KAVITHA K 461.9 SINUSITIS ACUTE 09/26/2012 MADL UNDERGRADUATE INTERNSHIP, DANG L 461 .9 SINUSITIS ACUTE 09/26/2012 MADL UNDERGRADUATE INTERNSHIP, DANG L 461 .9 SINUSITIS ACUTE 09/26/2012 MADL UNDERGRADUATE INTERNSHIP, DANG L 461 .9 SINUSITIS ACUTE 09/26/2012 MADL UNDERGRADUATE INTERNSHIP, DANG L 461 .9 SINUSITIS ACUTE 09/26/2012 JOSEPHINE UNDERGRADUATE INTERNSHIPHITESH Hussein 461. 9 SINUSITIS ACUTE 09/26/2012 MADL UNDERGRADUATE INTERNSHIP, DANG L 461 .9 SINUSITIS ACUTE 09/26/2012 MUSA MUNGUIA MD 461.9 SINUSITIS ACUTE 09/26/2012 JOSEPHINE UNDERGRADUATE INTERNSHIPHITESH Hussein 461. 9 SINUSITIS ACUTE 09/26/2012 MADL UNDERGRADUATE INTERNSHIP, DANG L 461 .9 SINUSITIS ACUTE 09/26/2012 MADL UNDERGRADUATE INTERNSHIP, DANG L 461 .9 SINUSITIS ACUTE 09/26/2012 MADL UNDERGRADUATE INTERNSHIP, DANG L 461 .9 SINUSITIS ACUTE 09/26/2012 MADL UNDERGRADUATE INTERNSHIP, DANG L 461 .9 SINUSITIS ACUTE 09/26/2012 MADL UNDERGRADUATE INTERNSHIP, DANG L 461 .9 SINUSITIS ACUTE 09/26/2012 DIXON DO, KAVITHA K 461.9 SINUSITIS ACUTE 09/26/2012 MADL UNDERGRADUATE INTERNSHIP, DANG L 461 .9 SINUSITIS ACUTE 10/15/2012 CAROLINA DIXON DOA K 112.3 CANDIDIASIS OF SKIN AND NAILS 10/15/2012 CAROLINA DIXON DOA K V73.81 HPV SCREENING 10/15/2012 KAVITHA DIXON DO K V76.10 BREAST CANCER SCREENING 10/15/2012 KAVITHA DIXON DO K V76.2 CERVICAL CANCER SCREENING (PAP SMEAR) 10/15/2012 DANIAL UNDERGRADUATE INTERNSHIP, CAROL A 11 2.3 CANDIDIASIS OF SKIN AND NAILS 10/15/2012 DANIALJovita BASHIR CAROL A V73.81 HPV SCREENING 10/15/2012 DANIAL MARIECAROL Hussein A V76.10 BREAST CANCER SCREENING 10/15/2012 DANIAL MARIEJovita CAROL A V7 6.2 CERVICAL CANCER SCREENING (PAP SMEAR) 10/15/2012 112.3 CAND IDIASIS OF SKIN AND NAILS 10/15/2012 V73.81 HPV SCREENING 10/15/2012 V76.10 EAN AST CANCER SCREENING 10/15/2012 V76.2 CERV ICAL CANCER SCREENING (PAP SMEAR) 10/15/2012 112.3 CAND IDIASIS OF SKIN AND NAILS 10/15/2012 V73.81 HPV SCREENING 10/15/2012 V76.10 EAN AST CANCER SCREENING 10/15/2012 V76.2 CERV ICAL CANCER SCREENING (PAP SMEAR) 10/15/2012 112.3 CAND IDIASIS OF SKIN AND NAILS 10/15/2012 V73.81 HPV SCREENING 10/15/2012 V76.10 EAN AST CANCER SCREENING 10/15/2012 V76.2 CERV ICAL CANCER SCREENING (PAP SMEAR) 10/15/2012 MICHAEL NOLAN MD 112.3 CANDIDIASIS OF SKIN AND NAILS 10/15/2012 MICHAEL NOLAN MD V73.81 HPV SCREENING 10/15/2012 MICHAEL NOLAN MD V76.10 BREAST CANCER SCREENING 10/15/2012 MICHAEL NOLAN MD V76.2 CERVICAL CANCER SCREENING (PAP SMEAR) 10/15/2012 MICHAEL NOLAN MD 112.3 CANDIDIASIS OF SKIN AND NAILS 10/15/2012 MICHAEL NOLAN MD V73.81 HPV SCREENING 10/15/2012 MICHAEL NOLAN MD V76.10 BREAST CANCER SCREENING 10/15/2012 MICHAEL NOLAN MD V76.2 CERVICAL CANCER SCREENING (PAP SMEAR) 10/15/2012 KALEN BHATT APRN 112.3 CANDIDIASIS OF SKIN AND NAILS 10/15/2012 KALEN BHATT APRN V73.81 HPV SCREENING 10/15/2012 KALEN BHATT APRN N V76.10 BREAST CANCER SCREENING 10/15/2012 KALEN BHATT APRN N V76.2 CERVICAL CANCER SCREENING (PAP SMEAR) 10/15/2012 MICHAEL NOLAN MD 112.3 CANDIDIASIS OF SKIN AND NAILS 10/15/2012 MICHAEL NOLAN MD V73.81 HPV SCREENING 10/15/2012 MICHAEL NOLAN MD V76.10 BREAST CANCER SCREENING 10/15/2012 MICHAEL NOLAN MD V76.2 CERVICAL CANCER SCREENING (PAP SMEAR) 10/15/2012 ZACK ANTONIO KAVITHA K 112.3 CANDIDIASIS OF SKIN AND NAILS 10/15/2012 DIXON DO, KAVITHA K V73.81 HPV SCREENING 10/15/2012 DIXON DO, KAVITHA K V76.10 BREAST CANCER SCREENING 10/15/2012 DIXON DO KAVITHA K V76.2 CERVICAL CANCER SCREENING (PAP SMEAR) 10/15/2012 OLAMIDE MARTINEZ APRNYL A 112.3 CANDIDIASIS OF SKIN AND NAILS 10/15/2012 MICHELLE BASHIR WON A V73.81 HPV SCREENING 10/15/2012 MICHELLE BASHIR WON A V76.10 BREAST CANCER SCREENING 10/15/2012 MICHELLE BASHIR WON A V76.2 CERVICAL CANCER SCREENING (PAP SMEAR) 10/15/2012 DIXON DO KAVITHA K 112.3 CANDIDIASIS OF SKIN AND NAILS 10/15/2012 DIXON DO, KAVITHA K V73.81 HPV SCREENING 10/15/2012 DIXON DO, KVAITHA K V76.10 BREAST CANCER SCREENING 10/15/2012 DIXON DO, KAVITHA K V76.2 CERVICAL CANCER SCREENING (PAP SMEAR) 10/15/2012 DIXON DO KAVITHA K 112.3 CANDIDIASIS OF SKIN AND NAILS 10/15/2012 DIXON DO, KAVITHA K V73.81 HPV SCREENING 10/15/2012 DIXON DO, KAVITHA K V76.10 BREAST CANCER SCREENING 10/15/2012 DIXON DO, KAVITHA K V76.2 CERVICAL CANCER SCREENING (PAP SMEAR) 10/15/2012 DIXON DO KAVITHA K 112.3 CANDIDIASIS OF SKIN AND NAILS 10/15/2012 DIXON DO, KAVITHA K V73.81 HPV SCREENING 10/15/2012 DIXON DO, KAVITHA K V76.10 BREAST CANCER SCREENING 10/15/2012 DIXON DO, KAVITHA K V76.2 CERVICAL CANCER SCREENING (PAP SMEAR) 10/15/2012 MADL UNDERGRADUATE INTERNSHIP, DANG L 112 .3 CANDIDIASIS OF SKIN AND NAILS 10/15/2012 MADL UNDERGRADUATE INTERNSHIP, DANG L V73 .81 HPV SCREENING 10/15/2012 MADL UNDERGRADUATE INTERNSHIP, DANG L V76 .10 BREAST CANCER SCREENING 10/15/2012 MADL UNDERGRADUATE INTERNSHIP, DANG L V76 .2 CERVICAL CANCER SCREENING (PAP SMEAR) 10/15/2012 MADL UNDERGRADUATE INTERNSHIP, DANG L 112 .3 CANDIDIASIS OF SKIN AND NAILS 10/15/2012 MADL UNDERGRADUATE INTERNSHIP, DANG L V73 .81 HPV SCREENING 10/15/2012 MADL UNDERGRADUATE INTERNSHIP, DANG L V76 .10 BREAST CANCER SCREENING 10/15/2012 MADL UNDERGRADUATE [employer]NSHIP, DANG L V76 .2 CERVICAL CANCER SCREENING (PAP SMEAR) 10/15/2012 MADL UNDERGRADUATE INTERNSHIP, DANG L 112 .3 CANDIDIASIS OF SKIN AND NAILS 10/15/2012 MAD UNDERGRADUATE INTERNSH[employer], DANG L V73 .81 HPV SCREENING 10/15/2012 MAD UNDERGRADUATE INTERNSHIP, DANG L V76 .10 BREAST CANCER SCREENING 10/15/2012 MAD UNDERGRADUATE INTERNSHIP, DANG L V76 .2 CERVICAL CANCER SCREENING (PAP SMEAR) 10/15/2012 MADL UNDERGRADUATE [employer]NSH[employer], DANG L 112 .3 CANDIDIASIS OF SKIN AND NAILS 10/15/2012 MAD UNDERGRADUATE [employer]NSH[employer], DANG L V73 .81 HPV SCREENING 10/15/2012 KWESI UNDERGRADUATE INTERNSHIP, DANG L V76 .10 BREAST CANCER SCREENING 10/15/2012 KWESI UNDERGRADUATE INTERNSHIP, DANG L V76 .2 CERVICAL CANCER SCREENING (PAP SMEAR) 10/15/2012 HITESH BURTON APRN 112. 3 CANDIDIASIS OF SKIN AND NAILS 10/15/2012 HITESH BURTON APRN V73. 81 HPV SCREENING 10/15/2012 HITESH BURTON APRN V76. 10 BREAST CANCER SCREENING 10/15/2012 HITESH BURTON APRN V76. 2 CERVICAL CANCER SCREENING (PAP SMEAR) 10/15/2012 АНДРЕЙ BASHIR DANG L 112 .3 CANDIDIASIS OF SKIN AND NAILS 10/15/2012 KWESI MCKAY DANG L V73 .81 HPV SCREENING 10/15/2012 MADL UNDER[employer], DANG L V76 .10 BREAST CANCER SCREENING 10/15/2012 АНДРЕЙ BASHIR, DANG L V76 .2 CERVICAL CANCER SCREENING (PAP SMEAR) 10/15/2012 MUSA MUNGUIA MD 112.3 CANDIDIASIS OF SKIN AND NAILS 10/15/2012 MUSA MUNGUIA MD V73.8 1 HPV SCREENING 10/15/2012 MUSA MUNGUIA MD V76.1 0 BREAST CANCER SCREENING 10/15/2012 MUSA MUNGUIA MD V76.2 CERVICAL CANCER SCREENING (PAP SMEAR) 10/15/2012 HITESH BURTON APRN 112. 3 CANDIDIASIS OF SKIN AND NAILS 10/15/2012 HITESH BURTON APRN V73. 81 HPV SCREENING 10/15/2012 HITESH BURTON APRN V76. 10 BREAST CANCER SCREENING 10/15/2012 HITESH BURTON APRN V76. 2 CERVICAL CANCER SCREENING (PAP SMEAR) 10/15/2012 АНДРЕЙ BASHIR DANG L 112 .3 CANDIDIASIS OF SKIN AND NAILS 10/15/2012 АНДРЕЙ BASHIR DANG L V73 .81 HPV SCREENING 10/15/2012 АНДРЕЙ BASHIR, DANG L V76 .10 BREAST CANCER SCREENING 10/15/2012 АНДРЕЙ BASHIR, DANG L V76 .2 CERVICAL CANCER SCREENING (PAP SMEAR) 10/15/2012 АНДРЕЙ BASHIR, DANG L 112 .3 CANDIDIASIS OF SKIN AND NAILS 10/15/2012 KWESIL UNDERGRADU[employer], DANG L V73 .81 HPV SCREENING 10/15/2012 АНДРЕЙ BASHIR, DANG L V76 .10 BREAST CANCER SCREENING 10/15/2012 MADL UNDERGRADUATE [employer]NSH[employer], DANG L V76 .2 CERVICAL CANCER SCREENING (PAP SMEAR) 10/15/2012 MADL UNDERGRADUATE [employer]NSH[employer], DANG L 112 .3 CANDIDIASIS OF SKIN AND NAILS 10/15/2012 MADL UNDERGRADU[employer]NS[employer], DANG L V73 .81 HPV SCREENING 10/15/2012 АНДРЕЙ UNDERGRADUATE INTERNSHIP, DANG L V76 .10 BREAST CANCER SCREENING 10/15/2012 АНДРЙЕ UNDERGRADUATE INTERNSHIP, DANG L V76 .2 CERVICAL CANCER SCREENING (PAP SMEAR) 10/15/2012 АНДРЕЙ BASHIR, DANG L 112 .3 CANDIDIASIS OF SKIN AND NAILS 10/15/2012 MADL UNDER[employer], DANG L V73 .81 HPV SCREENING 10/15/2012 MADL UND[employer], DANG L V76 .10 BREAST CANCER SCREENING 10/15/2012 MADL UND[employer], DANG L V76 .2 CERVICAL CANCER SCREENING (PAP SMEAR) 10/15/2012 MADL UND[employer], DANG L 112 .3 CANDIDIASIS OF SKIN AND NAILS 10/15/2012 MADL UND[employer], DANG L V73 .81 HPV SCREENING 10/15/2012 MADL UNDER[employer], DANG L V76 .10 BREAST CANCER SCREENING 10/15/2012 MADL UNDER[employer], DANG L V76 .2 CERVICAL CANCER SCREENING (PAP SMEAR) 10/15/2012 DIXON DO KAVITHA K 112.3 CANDIDIASIS OF SKIN AND NAILS 10/15/2012 DIXON DO KAVITHA K V73.81 HPV SCREENING 10/15/2012 DIXON DO KAVITHA K V76.10 BREAST CANCER SCREENING 10/15/2012 DIXON DO KAVITHA K V76.2 CERVICAL CANCER SCREENING (PAP SMEAR) 10/15/2012 MADL UNDER[employer], DANG L 112 .3 CANDIDIASIS OF SKIN AND NAILS 10/15/2012 MADL UNDER[employer], DANG L V73 .81 HPV SCREENING 10/15/2012 MADL UNDER[employer], DANG L V76 .10 BREAST CANCER SCREENING 10/15/2012 MADL UND[employer], DANG L V76 .2 CERVICAL CANCER SCREENING (PAP SMEAR) 10/31/2012 CAROL BARROW APRN 62 5.3 DYSMENORRHEA 10/31/2012 625.3 DYSM ENORRHEA 10/31/2012 625.3 DYSM ENORRHEA 10/31/2012 625.3 DYSM ENORRHEA 10/31/2012 MICHAEL NOLAN MD 625.3 DYSMENORRHEA 10/31/2012 MICHAEL NOLAN MD 625.3 DYSMENORRHEA 10/31/2012 KALEN BHATT APRN 625.3 DYSMENORRHEA 10/31/2012 MICHAEL NOLAN MD 625.3 DYSMENORRHEA 10/31/2012 KAVITHA DIXON DO K 625.3 DYSMENORRHEA 10/31/2012 WON MARTINEZ APRN 625.3 DYSMENORRHEA 10/31/2012 DIXON DO, KAVITHA K 625.3 DYSMENORRHEA 10/31/2012 DIXON DO, KAVITHA K 625.3 DYSMENORRHEA 10/31/2012 DIXON DO, KAVITHA K 625.3 DYSMENORRHEA 10/31/2012 MADL UND[employer], DANG L 625 .3 DYSMENORRHEA 10/31/2012 MADL UNDERGRADUATE [employer]NSHIP, DANG L 625 .3 DYSMENORRHEA 10/31/2012 MADL UNDERGRADU[employer]NSHIP, DANG L 625 .3 DYSMENORRHEA 10/31/2012 MADL UNDER[employer]NSH[employer], DANG L 625 .3 DYSMENORRHEA 10/31/2012 HITESH BURTON APRN 625. 3 DYSMENORRHEA 10/31/2012 MADL UNDER[employer]NS[employer], DANG L 625 .3 DYSMENORRHEA 10/31/2012 NILDA NUNEZ, MUSA 625.3 DYSMENORRHEA 10/31/2012 HITESH BURTON APRN 625. 3 DYSMENORRHEA 10/31/2012 MADL UNDER[employer]NS[employer], DANG L 625 .3 DYSMENORRHEA 10/31/2012 MADL UNDERGR[employer]NSHIP, DANG L 625 .3 DYSMENORRHEA 10/31/2012 MADL UNDERGRADUATE [employer]NSHIP, DANG L 625 .3 DYSMENORRHEA 10/31/2012 MADL UNDERGRADUATE INTERNSHIP, DANG L 625 .3 DYSMENORRHEA 10/31/2012 MAD UNDERGRADUATE INTERNSHIP, DANG L 625 .3 DYSMENORRHEA 10/31/2012 DIXON DO, KAVITHA K 625.3 DYSMENORRHEA 10/31/2012 MADL UNDER[employer], DANG L 625 .3 DYSMENORRHEA 11/23/2012 Ot 112.3 CUTA NEOUS CANDIDIASIS 11/23/2012 Ot 218.1 INTR AMURAL LEIOMYOMA 11/23/2012 Ot 278.01 MOR BID OBESITY 11/23/2012 Ot 285.9 ANEM IA NOS 11/23/2012 Ot 427.89 CAR DIAC DYSRHYTHMIAS NEC 11/23/2012 Ot 614.6 FEM PELVIC PERITON ADH-POST-OP/INF 11/23/2012 Ot 620.2 OVAR JORGE CYST NEC/NOS 11/23/2012 Ot 625.3 DYSM ENORRHEA 11/23/2012 Ot 626.2 EXCE SSIVE MENSTRUATION 11/23/2012 Ot 626.8 MENS TRUAL DISORDER NEC 11/23/2012 Ot 796.2 ELEV BL PRES W/O HYPERTN 11/23/2012 Ot V85.41 BOD Y MASS INDEX 40.0-44.9, ADULT 12/05/2012 355.79 OTH ER MONONEURITIS OF LOWER LIMB 12/05/2012 355.79 OTH ER MONONEURITIS OF LOWER LIMB 12/05/2012 MICHAEL NOLAN MD 355.79 OTHER MONONEURITIS OF LOWER LIMB 12/05/2012 MICHAEL NOLAN MD 355.79 OTHER MONONEURITIS OF LOWER LIMB 12/05/2012 KALEN BHATT APRN 355.79 OTHER MONONEURITIS OF LOWER LIMB 12/05/2012 MICHAEL NOLAN MD 355.79 OTHER MONONEURITIS OF LOWER LIMB 12/05/2012 KAVITHA DIXON DO K 355.79 OTHER MONONEURITIS OF LOWER LIMB 12/05/2012 WON MARTINEZ APRN 355.79 OTHER MONONEURITIS OF LOWER LIMB 12/05/2012 ZACK ANTONIO KAVITHA K 355.79 OTHER MONONEURITIS OF LOWER LIMB 12/05/2012 ZACK ANTONIO KAVITHA K 355.79 OTHER MONONEURITIS OF LOWER LIMB 12/05/2012 ZACK ANTONIO KAVITHA K 355.79 OTHER MONONEURITIS OF LOWER LIMB 12/05/2012 АНДРЕЙ BASHIR, DNAG L 355 .79 OTHER MONONEURITIS OF LOWER LIMB 12/05/2012 АНДРЕЙ BASHIR, DANG L 355 .79 OTHER MONONEURITIS OF LOWER LIMB 12/05/2012 АНДРЕЙ BASHIR, DANG L 355 .79 OTHER MONONEURITIS OF LOWER LIMB 12/05/2012 АНДРЕЙ BASHIR DANG L 355 .79 OTHER MONONEURITIS OF LOWER LIMB 12/05/2012 HITESH BURTON APRN 355. 79 OTHER MONONEURITIS OF LOWER LIMB 12/05/2012 АНДРЕЙ BASHIR, DANG L 355 .79 OTHER MONONEURITIS OF LOWER LIMB 12/05/2012 NILDA NUNEZ, MUSA 355.7 9 OTHER MONONEURITIS OF LOWER LIMB 12/05/2012 HITESH BURTON APRN 355. 79 OTHER MONONEURITIS OF LOWER LIMB 12/05/2012 MADL UNDER[employer], DANG L 355 .79 OTHER MONONEURITIS OF LOWER LIMB 12/05/2012 MADL UNDER[employer]NSH[employer], DANG L 355 .79 OTHER MONONEURITIS OF LOWER LIMB 12/05/2012 MADL UNDERGR[employer]NSHIP, DANG L 355 .79 OTHER MONONEURITIS OF LOWER LIMB 12/05/2012 MADL UNDERGR[employer]NSHIP, DANG L 355 .79 OTHER MONONEURITIS OF LOWER LIMB 12/05/2012 MADL UNDER[employer]NSH[employer], DANG L 355 .79 OTHER MONONEURITIS OF LOWER LIMB 12/05/2012 DIXON DO KAVITHA K 355.79 OTHER MONONEURITIS OF LOWER LIMB 12/05/2012 MADL UNDER[employer]NSH[employer], DANG L 355 .79 OTHER MONONEURITIS OF LOWER LIMB 01/18/2013 MICHAEL NOLAN MD 355.1 MERALGIA PARESTHETICA 01/18/2013 MICHAEL NOLAN MD 355.1 MERALGIA PARESTHETICA 01/18/2013 SCOTT CHAN APRN, KALEN N 355.1 MERALGIA PARESTHETICA 01/18/2013 MICHAEL NOLAN MD 355.1 MERALGIA PARESTHETICA 01/18/2013 DIXON DO KAVITHA K 355.1 MERALGIA PARESTHETICA 01/18/2013 WON MARTINEZ APRN A 355.1 MERALGIA PARESTHETICA 01/18/2013 DIXON DO KAVITHA K 355.1 MERALGIA PARESTHETICA 01/18/2013 DIXON DO KAVITHA K 355.1 MERALGIA PARESTHETICA 01/18/2013 DIXON DO, KAVITHA K 355.1 MERALGIA PARESTHETICA 01/18/2013 MADKennedy UNDERGRADUATE INTERNSHIP, DANG L 355 .1 MERALGIA PARESTHETICA 01/18/2013 MADL UNDER[employer], DANG L 355 .1 MERALGIA PARESTHETICA 01/18/2013 MADL UNDER[employer], DANG L 355 .1 MERALGIA PARESTHETICA 01/18/2013 АНДРЕЙ UNDERGRADUATE INTERNSHIP, DANG L 355 .1 MERALGIA PARESTHETICA 01/18/2013 JOSEPHINE UNDERGRADUATE INTERNSHIP, HITESH Yi 355. 1 MERALGIA PARESTHETICA 01/18/2013 MADL UNDER[employer]NSH[employer], DANG L 355 .1 MERALGIA PARESTHETICA 01/18/2013 NILDA NUNEZ, MUSA 355.1 MERALGIA PARESTHETICA 01/18/2013 BURTON UNDERGR[employer]UATE INTERNSHIP, HITESH D 355. 1 MERALGIA PARESTHETICA 01/18/2013 MADL UNDERGRADUATE [employer]NSHIP, DANG L 355 .1 MERALGIA PARESTHETICA 01/18/2013 MADL UNDERGRADUATE INTERNSHIP, DANG L 355 .1 MERALGIA PARESTHETICA 01/18/2013 MADL UNDERGRADUATE INTERNSHIP, DANG L 355 .1 MERALGIA PARESTHETICA 01/18/2013 MADL UNDERGRADUATE INTERNSHIP, DANG L 355 .1 MERALGIA PARESTHETICA 01/18/2013 MADL UNDERGRADUATE [employer]NSHIP, DANG L 355 .1 MERALGIA PARESTHETICA 01/18/2013 DIXON DO, KAVITHA K 355.1 MERALGIA PARESTHETICA 01/18/2013 MADL UNDER[employer]NSHIP, DANG L 355 .1 MERALGIA PARESTHETICA 03/08/2013 LAUREN NUNEZ, WILBER Yi Ot 724.1 PAIN IN THORACIC SPINE 08/22/2013 KALEN BHATT APRN N 461.8 OTHER ACUTE SINUSITIS 08/22/2013 SCOTT CHAN APRN, KALEN N 784.0 HEADACHE 08/22/2013 KALEN BHATT APRN N 786.2 COUGH 08/22/2013 MICHAEL NOLAN MD 461.8 OTHER ACUTE SINUSITIS 08/22/2013 MICHAEL NOLAN MD 784.0 HEADACHE 08/22/2013 MICHAEL NOLAN MD 786.2 COUGH 08/22/2013 DIXON DO, KAVITHA K 461.8 OTHER ACUTE SINUSITIS 08/22/2013 IDXON DO, KAVITHA K 784.0 HEADACHE 08/22/2013 DIXON DO, KAVITHA K 786.2 COUGH 08/22/2013 MICHELLE BASHIR WON A 461.8 OTHER ACUTE SINUSITIS 08/22/2013 KRYSTALE MCKAY WON A 784.0 HEADACHE 08/22/2013 KRYSTALE UNDER[employer]UATE INTERNSH[employer], WON A 786.2 COUGH 08/22/2013 DIXON DO, KAVITHA K 461.8 OTHER ACUTE SINUSITIS 08/22/2013 DIXON DO, KAVITHA K 784.0 HEADACHE 08/22/2013 DIXON DO, KAVITHA K 786.2 COUGH 08/22/2013 DIXON DO, KAVITHA K 461.8 OTHER ACUTE SINUSITIS 08/22/2013 DIXON DO, KAVITHA K 784.0 HEADACHE 08/22/2013 DIXON DO, KAVITHA K 786.2 COUGH 08/22/2013 DIXON DO, KAVITHA K 461.8 OTHER ACUTE SINUSITIS 08/22/2013 DIXON DO, KAVITHA K 784.0 HEADACHE 08/22/2013 DIXON DO, KAVITHA K 786.2 COUGH 08/22/2013 MADL UNDER[employer]NSHIP, DANG L 461 .8 OTHER ACUTE SINUSITIS 08/22/2013 MADL UNDERGR[employer]NSHIP, DANG L 784 .0 HEADACHE 08/22/2013 MADL UNDERGRADUATE INTERNSHIP, DANG L 786 .2 COUGH 08/22/2013 MADL UNDERGRADUATE [employer]NSHIP, DANG L 461 .8 OTHER ACUTE SINUSITIS 08/22/2013 MADL UNDERGRADUATE [employer]NSHIP, DANG L 784 .0 HEADACHE 08/22/2013 MADL UNDERGRADUATE [employer]NSHIP, DANG L 786 .2 COUGH 08/22/2013 MADL UNDERGRADUATE [employer]NSHIP, DANG L 461 .8 OTHER ACUTE SINUSITIS 08/22/2013 MADL UNDERGRADU[employer]NSHIP, DANG L 784 .0 HEADACHE 08/22/2013 MADL UNDERGRADUATE INTERNSHIP, DANG L 786 .2 COUGH 08/22/2013 MADL UNDERGRADU[employer]NSHIP, DANG L 461 .8 OTHER ACUTE SINUSITIS 08/22/2013 MADL UNDERGRADU[employer]NSHIP, DANG L 784 .0 HEADACHE 08/22/2013 MADL UNDERGRADUATE [employer]NSHIP, DANG L 786 .2 COUGH 08/22/2013 BURTON UNDERGRADUATE INTERNSHIP HITESH D 461. 8 OTHER ACUTE SINUSITIS 08/22/2013 BURTON UNDERGR[employer]NSH[employer], HITESH D 784. 0 HEADACHE 08/22/2013 BURTON UNDERGR[employer]NSHIP HITESH D 786. 2 COUGH 08/22/2013 MADL UNDERGRADU[employer]NSHIP, DANG L 461 .8 OTHER ACUTE SINUSITIS 08/22/2013 MADL UNDERGRADUATE [employer]NSHIP, DANG L 784 .0 HEADACHE 08/22/2013 MADL UNDERGR[employer]NSHIP, DANG L 786 .2 COUGH 08/22/2013 MUSA MUNGUIA MD 461.8 OTHER ACUTE SINUSITIS 08/22/2013 MUSA MUNGUIA MD 784.0 HEADACHE 08/22/2013 MUSA MUNGUIA MD 786.2 COUGH 08/22/2013 BURTON UNDERGRADUATE INTERNSHIPHITESH Hussein 461. 8 OTHER ACUTE SINUSITIS 08/22/2013 BURTON UNDERGRADUATE INTERNSHIPHITESH Hussein 784. 0 HEADACHE 08/22/2013 BURTON UNDERGRADUATE INTERNSHIPHITESH Hussein 786. 2 COUGH 08/22/2013 MADL UNDERGR[employer]NSH[employer], DANG L 461 .8 OTHER ACUTE SINUSITIS 08/22/2013 MADL UNDERGRADUATE INTERNSHIP, DANG L 784 .0 HEADACHE 08/22/2013 MADL UNDERGRADU[employer]NSHIP, DANG L 786 .2 COUGH 08/22/2013 MADL UNDERGRADUATE [employer]NSHIP, DANG L 461 .8 OTHER ACUTE SINUSITIS 08/22/2013 MADL UNDERGRADUATE INTERNSHIP, DANG L 784 .0 HEADACHE 08/22/2013 MADL UNDERGRADUATE INTERNSHIP, DANG L 786 .2 COUGH 08/22/2013 MADL UNDERGRADUATE [employer]NSHIP, DANG L 461 .8 OTHER ACUTE SINUSITIS 08/22/2013 MADL UNDERGRADUATE INTERNSHIP, DANG L 784 .0 HEADACHE 08/22/2013 MADL UNDERGRADUATE INTERNSHIP, DANG L 786 .2 COUGH 08/22/2013 MADL UNDERGRADUATE [employer]NSHIP, DANG L 461 .8 OTHER ACUTE SINUSITIS 08/22/2013 MADL UNDERGRADUATE [employer]NSHIP, DANG L 784 .0 HEADACHE 08/22/2013 MADL UNDERGRADUATE INTERNSHIP, DANG L 786 .2 COUGH 08/22/2013 MADL UNDERGRADUATE INTERNSHIP, DANG L 461 .8 OTHER ACUTE SINUSITIS 08/22/2013 MADL UNDERGRADUATE INTERNSHIP, DANG L 784 .0 HEADACHE 08/22/2013 MADL UNDERGRADUATE [employer]NSHIP, DANG L 786 .2 COUGH 08/22/2013 DIXON DO, KAVITHA K 461.8 OTHER ACUTE SINUSITIS 08/22/2013 DIXON DO, KAVITHA K 784.0 HEADACHE 08/22/2013 DIXON DO, KAVITHA K 786.2 COUGH 08/22/2013 MADL UNDERGRADUATE [employer]NSHIP, DANG L 461 .8 OTHER ACUTE SINUSITIS 08/22/2013 MADL UNDERGRADUATE [employer]NSHIP, DANG L 784 .0 HEADACHE 08/22/2013 MADL UNDERGR[employer]NSH[employer], DANG L 786 .2 COUGH 11/11/2013 DIXON DO, KAVITHA K 786.09 RESPIRATORY ABNORMALITY OTHER 11/11/2013 RAJOTTE MCKAY, WON A 786.09 RESPIRATORY ABNORMALITY OTHER 11/11/2013 DIXON DO, KAVITHA K 786.09 RESPIRATORY ABNORMALITY OTHER 11/11/2013 DIXON DO, KAVITHA K 786.09 RESPIRATORY ABNORMALITY OTHER 11/11/2013 DIXON DO, KAVITHA K 786.09 RESPIRATORY ABNORMALITY OTHER 11/11/2013 MADL UNDERGR[employer]NSH[employer], DANG L 786 .09 RESPIRATORY ABNORMALITY OTHER 11/11/2013 MADL UNDERGRADUATE INTERNSHIP, DANG L 786 .09 RESPIRATORY ABNORMALITY OTHER 11/11/2013 MADL UNDERGRADUATE INTERNSHIP, DANG L 786 .09 RESPIRATORY ABNORMALITY OTHER 11/11/2013 MADL UNDERGRADUATE [employer]NSHIP, DANG L 786 .09 RESPIRATORY ABNORMALITY OTHER 11/11/2013 HITESH BURTON APRN 786. 09 RESPIRATORY ABNORMALITY OTHER 11/11/2013 MADL UNDERGRADUATE [employer]NSHIP, DANG L 786 .09 RESPIRATORY ABNORMALITY OTHER 11/11/2013 NILDA NUNEZ, MUSA 786.0 9 RESPIRATORY ABNORMALITY OTHER 11/11/2013 HITESH BURTON APRN 786. 09 RESPIRATORY ABNORMALITY OTHER 11/11/2013 MADL UNDERGR[employer]NSHIP, DANG L 786 .09 RESPIRATORY ABNORMALITY OTHER 11/11/2013 MADL UNDERGRADUATE INTERNSHIP, DANG L 786 .09 RESPIRATORY ABNORMALITY OTHER 11/11/2013 MADL UNDERGRADUATE INTERNSHIP, DANG L 786 .09 RESPIRATORY ABNORMALITY OTHER 11/11/2013 MADL UNDERGRADUATE INTERNSHIP, DANG L 786 .09 RESPIRATORY ABNORMALITY OTHER 11/11/2013 MADL UNDERGRADUATE [employer]NSHIP, DANG L 786 .09 RESPIRATORY ABNORMALITY OTHER 11/11/2013 DIXON DO, KAVITHA K 786.09 RESPIRATORY ABNORMALITY OTHER 11/11/2013 MADL UNDER[employer]NSHIP, DANG L 786 .09 RESPIRATORY ABNORMALITY OTHER 11/14/2013 LAUREN NUNEZ, WILBER Yi Ot 682.6 CELLULITIS OF LEG 11/14/2013 KRYSTA KRAUSE DO Ot 924.3 CONTUSION OF TOE 11/14/2013 KRYSTA KRAUSE DO Ot 959.7 LOWER LEG INJURY NOS 11/14/2013 KRYSTA KRAUSE DO Ot E000.8 OTHER EXTERNAL CAUSE STATUS 11/14/2013 KRYSTA KRAUSE DO Ot E029.9 OTHER ACTIVITY 11/14/2013 KRYSTA KRAUSE DO Ot E849.0 ACCIDENT IN HOME 11/14/2013 KRYSTA KRAUSE DO Ot E917.3 FURNIT W/O SUB FALL 11/28/2013 WON MARTINEZ APRN 786.05 SHORTNESS OF BREATH 11/28/2013 DIXON DO, KAVITHA K 786.05 SHORTNESS OF BREATH 11/28/2013 DIXON DO, KAVITHA K 786.05 SHORTNESS OF BREATH 11/28/2013 DIXON DO, KAVITHA K 786.05 SHORTNESS OF BREATH 11/28/2013 MADL UNDER[employer], DANG L 786 .05 SHORTNESS OF BREATH 11/28/2013 MADL UNDERGRADUATE INTERNSHIP, DANG L 786 .05 SHORTNESS OF BREATH 11/28/2013 MADL UNDERGRADUATE INTERNSHIP, DANG L 786 .05 SHORTNESS OF BREATH 11/28/2013 MADL UNDERGRADUATE INTERNSHIP, DANG L 786 .05 SHORTNESS OF BREATH 11/28/2013 HITESH BURTON APRN 786. 05 SHORTNESS OF BREATH 11/28/2013 MADL UNDERGRADU[employer]NSH[employer], DANG L 786 .05 SHORTNESS OF BREATH 11/28/2013 NILDA NUNEZ, MUSA 786.0 5 SHORTNESS OF BREATH 11/28/2013 HITESH BURTON APRN 786. 05 SHORTNESS OF BREATH 11/28/2013 MADL UNDERGRADU[employer]NSHIP, DANG L 786 .05 SHORTNESS OF BREATH 11/28/2013 MADL UNDERGRADUATE INTERNSHIP, DANG L 786 .05 SHORTNESS OF BREATH 11/28/2013 MADL UNDERGRADUATE INTERNSHIP, DANG L 786 .05 SHORTNESS OF BREATH 11/28/2013 MADL UNDERGRADUATE INTERNSHIP, DANG L 786 .05 SHORTNESS OF BREATH 11/28/2013 MADL UNDERGRADUATE INTERNSHIP, DANG L 786 .05 SHORTNESS OF BREATH 11/28/2013 DIXON DO, KAVITHA K 786.05 SHORTNESS OF BREATH 11/28/2013 MADL UNDERGRADUATE [employer]NSHIP, DANG L 786 .05 SHORTNESS OF BREATH 12/11/2013 DIXON DO, KAVITHA K 686.8 OTHER SPECIFIED LOCAL INFECTIONS OF SKIN AND SUBCUTANEOUS TISSUE 12/11/2013 DIXON DO, KAVITHA K 686.8 OTHER SPECIFIED LOCAL INFECTIONS OF SKIN AND SUBCUTANEOUS TISSUE 12/11/2013 MADL UNDERGRADUATE INTERNSHIP, DANG L 686 .8 OTHER SPECIFIED LOCAL INFECTIONS OF SKIN AND SUBCUTANEOUS TISSUE 12/11/2013 MADL UNDERGRADUATE INTERNSHIP, DANG L 686 .8 OTHER SPECIFIED LOCAL INFECTIONS OF SKIN AND SUBCUTANEOUS TISSUE 12/11/2013 MADL UNDERGRADUATE INTERNSHIP, DANG L 686 .8 OTHER SPECIFIED LOCAL INFECTIONS OF SKIN AND SUBCUTANEOUS TISSUE 12/11/2013 MADL UNDERGRADUATE INTERNSHIP, DANG L 686 .8 OTHER SPECIFIED LOCAL INFECTIONS OF SKIN AND SUBCUTANEOUS TISSUE 12/11/2013 HITESH BURTON APRN 686. 8 OTHER SPECIFIED LOCAL INFECTIONS OF SKIN AND SUBCUTANEOUS TISSUE 12/11/2013 MADL UNDERGRADUATE INTERNSHIP, DANG L 686 .8 OTHER SPECIFIED LOCAL INFECTIONS OF SKIN AND SUBCUTANEOUS TISSUE 12/11/2013 MUSA MUNGUIA MD 686.8 OTHER SPECIFIED LOCAL INFECTIONS OF SKIN AND SUBCUTANEOUS TISSUE 12/11/2013 JOSEPHINE UNDERGRADUATE INTERNSHIPHITESH Hussein 686. 8 OTHER SPECIFIED LOCAL INFECTIONS OF SKIN AND SUBCUTANEOUS TISSUE 12/11/2013 MADL UNDERGRADUATE INTERNSHIP, DANG L 686 .8 OTHER SPECIFIED LOCAL INFECTIONS OF SKIN AND SUBCUTANEOUS TISSUE 12/11/2013 MADL UNDERGRADUATE INTERNSHIP, DANG L 686 .8 OTHER SPECIFIED LOCAL INFECTIONS OF SKIN AND SUBCUTANEOUS TISSUE 12/11/2013 MADL UNDERGRADUATE INTERNSHIP, DANG L 686 .8 OTHER SPECIFIED LOCAL INFECTIONS OF SKIN AND SUBCUTANEOUS TISSUE 12/11/2013 MADL UNDERGRADUATE INTERNSHIP, DANG L 686 .8 OTHER SPECIFIED LOCAL INFECTIONS OF SKIN AND SUBCUTANEOUS TISSUE 12/11/2013 MADL UNDERGRADUATE INTERNSHIP, DANG L 686 .8 OTHER SPECIFIED LOCAL INFECTIONS OF SKIN AND SUBCUTANEOUS TISSUE 12/11/2013 DIXON DO, KAVITHA K 686.8 OTHER SPECIFIED LOCAL INFECTIONS OF SKIN AND SUBCUTANEOUS TISSUE 12/11/2013 MADL UNDERGRADUATE [employer]NSHIP, DANG L 686 .8 OTHER SPECIFIED LOCAL INFECTIONS OF SKIN AND SUBCUTANEOUS TISSUE 01/05/2014 YUMIKO NUNEZ, PATRICK Valdivia Ot 112.3 CUTANEOUS CANDIDIASIS 01/05/2014 PATRICK CALDERON MD, Ot 278.00 OBESITY, NOS 01/05/2014 PATRICK CALDERON MD Ot 401.9 HYPERTENSION NOS 01/05/2014 PATRICK CALDERON MD Ot 616.10 VAGINITIS NOS 01/05/2014 PATRICK CALDERON MD Ot V85.41 BODY MASS INDEX 40.0-44.9, ADULT 02/24/2014 JASON HILL DO Kassidy Ot 726.60 ENTHESOPATHY OF KNEE NOS 03/04/2014 MICAELA JACOB Ot 530.81 ESOPHAGEAL REFLUX 03/04/2014 MICAELA JACOB Ot 786.50 CHEST PAIN NOS 03/04/2014 MICAELA JACOB Ot 786.52 PAINFUL RESPIRATION 03/11/2014 MADL UNDERGRADUATE INTERNSHIP, DANG L 346 .90 MIGRAINE UNSPECIFIED WITHOUT MENTION OF INTRACTABLE MIGRAINE WITHOUT MENTION OF STATUS MIGRAINOSUS 03/11/2014 MADL UNDERGRADUATE INTERNSHIP, DANG L 530 .81 ESOPHAGEAL REFLUX 03/11/2014 MADL UNDERGRADUATE INTERNSHIP, DANG L 719 .46 PAIN IN JOINT INVOLVING LOWER LEG 03/11/2014 MADL UNDERGRADUATE INTERNSHIP, DANG L 346 .90 MIGRAINE UNSPECIFIED WITHOUT MENTION OF INTRACTABLE MIGRAINE WITHOUT MENTION OF STATUS MIGRAINOSUS 03/11/2014 MADL UNDERGRADUATE INTERNSHIP, DANG L 530 .81 ESOPHAGEAL REFLUX 03/11/2014 MADL UNDERGRADUATE INTERNSHIP, DANG L 719 .46 PAIN IN JOINT INVOLVING LOWER LEG 03/11/2014 MADL UNDERGRADUATE INTERNSHIP, DANG L 346 .90 MIGRAINE UNSPECIFIED WITHOUT MENTION OF INTRACTABLE MIGRAINE WITHOUT MENTION OF STATUS MIGRAINOSUS 03/11/2014 MADL UNDERGRADUATE INTERNSHIP, DANG L 530 .81 ESOPHAGEAL REFLUX 03/11/2014 KWESIL UNDERGRADUATE INTERNSHIP, DANG L 719 .46 PAIN IN JOINT INVOLVING LOWER LEG 03/11/2014 HITESH BURTON APRN 346. 90 MIGRAINE UNSPECIFIED WITHOUT MENTION OF INTRACTABLE MIGRAINE WITHOUT MENTION OF STATUS MIGRAINOSUS 03/11/2014 HITESH BURTON APRN 530. 81 ESOPHAGEAL REFLUX 03/11/2014 HITESH BURTON APRN 719. 46 PAIN IN JOINT INVOLVING LOWER LEG 03/11/2014 MADL UNDERGRADUATE INTERNSHIP, DANG L 346 .90 MIGRAINE UNSPECIFIED WITHOUT MENTION OF INTRACTABLE MIGRAINE WITHOUT MENTION OF STATUS MIGRAINOSUS 03/11/2014 MADL UNDERGRADUATE INTERNSHIP, DANG L 530 .81 ESOPHAGEAL REFLUX 03/11/2014 MADL UNDERGRADUATE INTERNSHIP, DANG L 719 .46 PAIN IN JOINT INVOLVING LOWER LEG 03/11/2014 MUSA MUNGUIA MD 346.9 0 MIGRAINE UNSPECIFIED WITHOUT MENTION OF INTRACTABLE MIGRAINE WITHOUT MENTION OF STATUS MIGRAINOSUS 03/11/2014 MUSA MUNGUIA MD 530.8 1 ESOPHAGEAL REFLUX 03/11/2014 MUSA MUNGUIA MD 719.4 6 PAIN IN JOINT INVOLVING LOWER LEG 03/11/2014 HITESH BURTON APRN 346. 90 MIGRAINE UNSPECIFIED WITHOUT MENTION OF INTRACTABLE MIGRAINE WITHOUT MENTION OF STATUS MIGRAINOSUS 03/11/2014 HITESH BURTON APRN 530. 81 ESOPHAGEAL REFLUX 03/11/2014 HITESH BURTON APRN 719. 46 PAIN IN JOINT INVOLVING LOWER LEG 03/11/2014 MADL UNDERGRADUATE INTERNSHIP, DANG L 346 .90 MIGRAINE UNSPECIFIED WITHOUT MENTION OF INTRACTABLE MIGRAINE WITHOUT MENTION OF STATUS MIGRAINOSUS 03/11/2014 MADL UNDERGRADUATE INTERNSHIP, DANG L 530 .81 ESOPHAGEAL REFLUX 03/11/2014 MADL UNDERGRADUATE INTERNSHIP, DANG L 719 .46 PAIN IN JOINT INVOLVING LOWER LEG 03/11/2014 MADL UNDERGRADUATE INTERNSHIP, DANG L 346 .90 MIGRAINE UNSPECIFIED WITHOUT MENTION OF INTRACTABLE MIGRAINE WITHOUT MENTION OF STATUS MIGRAINOSUS 03/11/2014 MADL UNDERGRADUATE INTERNSHIP, DANG L 530 .81 ESOPHAGEAL REFLUX 03/11/2014 MADL UNDERGRADUATE INTERNSHIP, DANG L 719 .46 PAIN IN JOINT INVOLVING LOWER LEG 03/11/2014 MADL UNDERGRADUATE INTERNSHIP, DANG L 346 .90 MIGRAINE UNSPECIFIED WITHOUT MENTION OF INTRACTABLE MIGRAINE WITHOUT MENTION OF STATUS MIGRAINOSUS 03/11/2014 MADL UNDERGRADUATE INTERNSHIP, DANG L 530 .81 ESOPHAGEAL REFLUX 03/11/2014 MADL UNDERGRADUATE INTERNSH[employer], DANG L 719 .46 PAIN IN JOINT INVOLVING LOWER LEG 03/11/2014 MADL UNDERGRADUATE INTERNSHIP, DANG L 346 .90 MIGRAINE UNSPECIFIED WITHOUT MENTION OF INTRACTABLE MIGRAINE WITHOUT MENTION OF STATUS MIGRAINOSUS 03/11/2014 MADL UNDERGRADUATE INTERNSHIP, DANG L 530 .81 ESOPHAGEAL REFLUX 03/11/2014 MADL UNDERGRADUATE [employer]NSHIP, DANG L 719 .46 PAIN IN JOINT INVOLVING LOWER LEG 03/11/2014 MADL UNDERGRADUATE INTERNSHIP, DANG L 346 .90 MIGRAINE UNSPECIFIED WITHOUT MENTION OF INTRACTABLE MIGRAINE WITHOUT MENTION OF STATUS MIGRAINOSUS 03/11/2014 MADL UNDERGRADUATE [employer]NSH[employer], DANG L 530 .81 ESOPHAGEAL REFLUX 03/11/2014 MADL UNDERGRADUATE INTERNSH[employer], DANG L 719 .46 PAIN IN JOINT INVOLVING LOWER LEG 03/11/2014 DIXON DO KAVITHA K 346.90 MIGRAINE UNSPECIFIED WITHOUT MENTION OF INTRACTABLE MIGRAINE WITHOUT MENTION OF STATUS MIGRAINOSUS 03/11/2014 DIXON KAVITHA K 530.81 ESOPHAGEAL REFLUX 03/11/2014 DIXON KAVITHA K 719.46 PAIN IN JOINT INVOLVING LOWER LEG 03/11/2014 MADL UNDERGRADUATE [employer]NSH[employer], DANG L 346 .90 MIGRAINE UNSPECIFIED WITHOUT MENTION OF INTRACTABLE MIGRAINE WITHOUT MENTION OF STATUS MIGRAINOSUS 03/11/2014 MADL UNDERGRADUATE [employer]NSH[employer], DANG L 530 .81 ESOPHAGEAL REFLUX 03/11/2014 MADL UNDERGRADUATE [employer]NSH[employer], DANG L 719 .46 PAIN IN JOINT INVOLVING LOWER LEG 04/10/2014 HITESH BURTON APRN 836. 1 TEAR OF LATERAL CARTILAGE OR MENISCUS OF KNEE CURRENT 04/10/2014 MADL UNDERGRADUATE INTERNSHIP, DANG L 836 .1 TEAR OF LATERAL CARTILAGE OR MENISCUS OF KNEE CURRENT 04/10/2014 MUSA MUNGUIA MD 836.1 TEAR OF LATERAL CARTILAGE OR MENISCUS OF KNEE CURRENT 04/10/2014 HITESH BURTON APRN 836. 1 TEAR OF LATERAL CARTILAGE OR MENISCUS OF KNEE CURRENT 04/10/2014 MADL UNDERGRADUATE INTERNSHIP, DANG L 836 .1 TEAR OF LATERAL CARTILAGE OR MENISCUS OF KNEE CURRENT 04/10/2014 MADL UNDERGRADUATE INTERNSHIP, DANG L 836 .1 TEAR OF LATERAL CARTILAGE OR MENISCUS OF KNEE CURRENT 04/10/2014 MADL UNDERGRADUATE INTERNSHIP, DANG L 836 .1 TEAR OF LATERAL CARTILAGE OR MENISCUS OF KNEE CURRENT 04/10/2014 MADL UNDERGRADUATE INTERNSHIP, DANG L 836 .1 TEAR OF LATERAL CARTILAGE OR MENISCUS OF KNEE CURRENT 04/10/2014 MADL UNDERGRADUATE INTERNSHIP, DANG L 836 .1 TEAR OF LATERAL CARTILAGE OR MENISCUS OF KNEE CURRENT 04/10/2014 KAVITHA DIXON DO K 836.1 TEAR OF LATERAL CARTILAGE OR MENISCUS OF KNEE CURRENT 04/10/2014 MADL UNDERGRADUATE INTERNSHIP, DANG L 836 .1 TEAR OF LATERAL CARTILAGE OR MENISCUS OF KNEE CURRENT 04/24/2014 TOBY WILBURN MD Ot 401. 9 HYPERTENSION NOS 04/24/2014 TOBY WILBURN MD Ot 599. 72 MICROSCOPIC HEMATURIA 04/24/2014 TOBY WILBURN MD Ot 682. 6 CELLULITIS OF LEG 04/24/2014 TOBY WILBURN MD Ot 719. 40 JOINT PAIN-UNSPEC 04/24/2014 TOBY WILBURN MD Ot 789. 07 ABDOMINAL PAIN, GENERALIZED 05/02/2014 MADL UNDERGRADU[employer]NSH[employer], DANG L 682 .6 CELLULITIS OF THE LEFT LEG 05/02/2014 MADL UNDERGRADUATE [employer]NSH[employer], DANG L 692 .0 CONTACT DERMATITIS AND OTHER ECZEMA DUE TO DETERGENTS 05/02/2014 MUSA MUNGUIA MD 682.6 CELLULITIS OF THE LEFT LEG 05/02/2014 MUSA MUNGUIA MD 692.0 CONTACT DERMATITIS AND OTHER ECZEMA DUE TO DETERGENTS 05/02/2014 HITESH BURTON APRN 682. 6 CELLULITIS OF THE LEFT LEG 05/02/2014 HITESH BURTON APRN 692. 0 CONTACT DERMATITIS AND OTHER ECZEMA DUE TO DETERGENTS 05/02/2014 MADL UNDERGRADUATE INTERNSHIP, DANG L 682 .6 CELLULITIS OF THE LEFT LEG 05/02/2014 MADL UNDERGRADUATE INTERNSHIP, DANG L 692 .0 CONTACT DERMATITIS AND OTHER ECZEMA DUE TO DETERGENTS 05/02/2014 MADL UNDERGRADUATE INTERNSHIP, DANG L 682 .6 CELLULITIS OF THE LEFT LEG 05/02/2014 MADL UNDERGRADUATE INTERNSHIP, DANG L 692 .0 CONTACT DERMATITIS AND OTHER ECZEMA DUE TO DETERGENTS 05/02/2014 MADL UNDERGRADUATE INTERNSHIP, DANG L 682 .6 CELLULITIS OF THE LEFT LEG 05/02/2014 MADL UNDERGRADUATE INTERNSHIP, DANG L 692 .0 CONTACT DERMATITIS AND OTHER ECZEMA DUE TO DETERGENTS 05/02/2014 MADL UNDERGRADUATE INTERNSHIP, DANG L 682 .6 CELLULITIS OF THE LEFT LEG 05/02/2014 MADL UNDERGRADUATE INTERNSHIP, DANG L 692 .0 CONTACT DERMATITIS AND OTHER ECZEMA DUE TO DETERGENTS 05/02/2014 MADL UNDERGRADUATE INTERNSHIP, DANG L 682 .6 CELLULITIS OF THE LEFT LEG 05/02/2014 MADL UNDERGRADUATE INTERNSHIP, DANG L 692 .0 CONTACT DERMATITIS AND OTHER ECZEMA DUE TO DETERGENTS 05/02/2014 DIXON DO, KAVITHA K 682.6 CELLULITIS OF THE LEFT LEG 05/02/2014 DIXON DO, KAVITHA K 692.0 CONTACT DERMATITIS AND OTHER ECZEMA DUE TO DETERGENTS 05/02/2014 [employer], DANG L 682 .6 CELLULITIS OF THE LEFT LEG 05/02/2014 [employer], DANG L 692 .0 CONTACT DERMATITIS AND OTHER ECZEMA DUE TO DETERGENTS 08/04/2014 [employer], DANG L 465 .9 ACUTE UPPER RESPIRATORY INFECTIONS OF UNSPECIFIED SITE 08/04/2014 M[employer], DANG L 786 .2 COUGH 08/04/2014 M[employer], DANG L 465 .9 ACUTE UPPER RESPIRATORY INFECTIONS OF UNSPECIFIED SITE 08/04/2014 M[employer], DANG L 786 .2 COUGH 08/04/2014 M[employer], DANG L 465 .9 ACUTE UPPER RESPIRATORY INFECTIONS OF UNSPECIFIED SITE 08/04/2014 [employer], DANG L 786 .2 COUGH 08/04/2014 DIXON DO, KAVITHA K 465.9 ACUTE UPPER RESPIRATORY INFECTIONS OF UNSPECIFIED SITE 08/04/2014 DIXON DO, KAVITHA K 786.2 COUGH 08/04/2014 [employer], DANG L 465 .9 ACUTE UPPER RESPIRATORY INFECTIONS OF UNSPECIFIED SITE 08/04/2014 [employer], DANG L 786 .2 COUGH 08/18/2014 [employer], DANG L 787 .1 HEARTBURN 08/18/2014 [employer], DANG L 787 .1 HEARTBURN 08/18/2014 DIXON DO, KAVITHA K 787.1 HEARTBURN 08/18/2014 [employer], DANG L 787 .1 HEARTBURN 10/13/2014 DIXON DO, KAVITHA K 686.8 OTHER SPECIFIED LOCAL INFECTIONS OF SKIN AND SUBCUTANEOUS TISSUE 10/13/2014 [employer], DANG L 686 .8 OTHER SPECIFIED LOCAL INFECTIONS OF SKIN AND SUBCUTANEOUS TISSUE 12/14/2014 MICAELA JACOB L Ot 110.5 DERMATOPHYTOSIS OF BODY 12/14/2014 MICAELA JACOB Ot 782.1 NONSPECIF SKIN ERUPT NEC 12/14/2014 MICAELA JACOB Ot 919.4 INSECT BITE NEC 12/14/2014 MICAELA JACOB Ot E000.8 OTHER EXTERNAL CAUSE STATUS 12/14/2014 MICAELA JACOB Ot E906.4 NONVENOM ARTHROPOD BITE 12/22/2014 PATRICK CALDERON MD Ot 041.12 METHICILLIN RESISTANT STAPHYLOCOCCUS AUR 12/22/2014 PATRICK CALDERON MD Ot 682.3 CELLULITIS OF ARM 01/24/2015 MICAELA JACOB Ot 110.3 DERMATOPHYTOSIS OF GROIN 01/24/2015 MICAELA JACOB Ot 110.5 DERMATOPHYTOSIS OF BODY 01/24/2015 MICAELA JACOB Ot 682.9 CELLULITIS NOS 10/29/2015 Ot 625.3 10/29/2015 Ot 626.2 10/29/2015 Ot 793.89 10/29/2015 Ot V76.12 10/29/2015 Ot 625.9 10/29/2015 Ot 626.2 10/29/2015 Ot V72.63 10/29/2015 Ot V74.8 10/29/2015 Ot 793.82 10/29/2015 HITESH BURTON ANIMAL RESEARCHER Ot 717. 2 10/29/2015 HITESH BURTON ANIMAL RESEARCHER Ot 719. 06 10/30/2015 HUA MALDONADO [employer] Ot Z12.31 11/04/2015 HUA MALDONADO [employer] Ot Z12.31 11/12/2015 HUA [employer] Ot Z12.31 06/19/2016 YUMIKO NUNEZ, PATRICK Valdivia Ot J18.9 PNEUMONIA, UNSPECIFIED ORGANISM 06/19/2016 YUMIKO NUNEZ, PATRICK Valdivia Ot R07.89 OTHER CHEST PAIN 06/19/2016 PATRICK CALDERON MD Ot R42 DIZZINESS AND GIDDINESS 06/19/2016 Ot 625.3 DYSM ENORRHEA 06/19/2016 Ot 626.2 EXCE SSIVE MENSTRUATION 06/19/2016 Ot 793.89 OTH (ABN) FINDINGS ON RADIOLOGICAL EXAMI 06/19/2016 Ot V76.12 OTH SCREEN MAMMO- MALIGN NEOPLASM OF AUBREE 06/19/2016 Ot 625.9 FEM GENITAL SYMPTOMS NOS 06/19/2016 Ot 626.2 EXCE SSIVE MENSTRUATION 06/19/2016 Ot V72.63 PRE -PROCEDURAL LABORATORY EXAMINATION 06/19/2016 Ot V74.8 SCRE EN-BACTERIAL DIS NEC 06/19/2016 Ot 793.82 INC ONCLUSIVE MAMMOGRAM 06/19/2016 HITESH BURTON ANIMAL RESEARCHER Ot 717. 2 DERANG POST MED MENISCUS 06/19/2016 HITESH BURTON ANIMAL RESEARCHER Ot 719. 06 JOINT EFFUSION-L/LEG 06/19/2016 HUA MALDONADO [employer] Ot Z12.31 ENCNTR SCREEN MAMMOGRAM FOR MALIGNANT NE 06/19/2016 HUA MALDONADO [employer] Ot Z12.31 ENCNTR SCREEN MAMMOGRAM FOR MALIGNANT NE 12/24/2016 Ot 625.3 DYSM ENORRHEA 12/24/2016 Ot 626.2 EXCE SSIVE MENSTRUATION 12/24/2016 Ot 793.89 OTH (ABN) FINDINGS ON RADIOLOGICAL EXAMI 12/24/2016 Ot V76.12 OTH SCREEN MAMMO- MALIGN NEOPLASM OF AUBREE 12/24/2016 Ot 625.9 FEM GENITAL SYMPTOMS NOS 12/24/2016 Ot 626.2 EXCE SSIVE MENSTRUATION 12/24/2016 Ot V72.63 PRE -PROCEDURAL LABORATORY EXAMINATION 12/24/2016 Ot V74.8 SCRE EN-BACTERIAL DIS NEC 12/24/2016 Ot 793.82 INC ONCLUSIVE MAMMOGRAM 12/24/2016 HITESH BURTON ANIMAL RESEARCHER Ot 717. 2 DERANG POST MED MENISCUS 12/24/2016 HITESH BURTON ANIMAL RESEARCHER Ot 719. 06 JOINT EFFUSION-L/LEG 12/24/2016 HUA MALDONADO [employer] Ot Z12.31 ENCNTR SCREEN MAMMOGRAM FOR MALIGNANT NE 12/24/2016 HUA [employer] Ot Z12.31 ENCNTR SCREEN MAMMOGRAM FOR MALIGNANT NE 12/24/2016 YENIFER DELGADILLO MD Ot I10 ESSENTIAL (PRIMARY) HYPERTENSION 12/24/2016 YENIFER DELGADILLO MD Ot L29 .9 PRURITUS, UNSPECIFIED 12/24/2016 YENIFER DELGADILLO MD Ot R21 RASH AND OTHER NONSPECIFIC SKIN ERUPTION 12/24/2016 YENIFER DELGADILLO MD Ot Z79.899 OTHER SENIOR LIVING (CURRENT) DRUG THERAPY 12/26/2016 YENIFER DELGADILLO MD Ot I10 ESSENTIAL (PRIMARY) HYPERTENSION 12/26/2016 YENIFER DELGADILLO MD Ot L29 .9 PRURITUS, UNSPECIFIED 12/26/2016 YENIFER DELGADILLO MD Ot R21 RASH AND OTHER NONSPECIFIC SKIN ERUPTION 12/26/2016 YENIFER DELGADILLO MD Ot Z79.899 OTHER COMMODITY SPECIALIST (CURRENT) DRUG THERAPY 01/13/2017 DANG CHIANG ANIMAL RESEARCHER Ot Z12.31 ENCNTR SCREEN MAMMOGRAM FOR MALIGNANT NE 04/25/2018 Deisy Arrington 844.9 SPRAIN OF UNSPECIFIED SITE OF KNEE AND LEG 04/25/2018 Deisy Arrington S83.92XA SPRAIN OF UNSPECIFIED SITE OF LEFT KNEE, INITIAL ENCOUNTER 02/02/2019 Brown, Chi W 786.52 PAINFUL RESPIRATION 02/02/2019 Brown, Chi W R07.89 OTHER CHEST PAIN 02/02/2019 Brown, Chi W 786.52 PAINFUL RESPIRATION 02/02/2019 Brown, Chi W R07.89 OTHER CHEST PAIN 02/02/2019 Brown, Chi W 786.52 PAINFUL RESPIRATION 02/02/2019 Brown, Chi W 848.8 OTHER SPECIFIED SITES OF SPRAINS AND STRAINS 02/02/2019 Brown, Chi W R07.89 OTHER CHEST PAIN 02/02/2019 Brown, Chi W S29.011A STRAIN OF MUSCLE AND TENDON OF FRONT WALL OF THORAX, INIT Procedures Code Description [place] [address] ROUT INE VENIPUNCTURE 07/05/2012 PHYSI Phys ical Therapy, Via [facility] 07/05/2012 16932 A1C (IN-HOUSE) 07/05/2012 29816 URIN E DRUG SCREEN (IN-HOUSE) 07/05/2012 04894 CBC 07/05/2012 19734 LIPI D PANEL 07/05/2012 60684 CMP 07/05/2012 4995486 GF R CALC (RESULT ONLY) 07/05/2012 36141 TSH 07/06/2012 17591 FERRITIN 07/06/2012 50109 INSU JANAY LEVEL 07/06/2012 85415 US P DANNYVIC COMPL (REFLEX CPT- 74488) 07/13/2012 06823 URIN E DRUG SCREEN (IN-HOUSE) 07/13/2012 44880 UA L EDUAR DIP 07/13/2012 22914 ENDO METRIAL BIOPSY 10/15/2012 47813 URIN E TEST (IN- HOUSE) 10/15/2012 02051 MAMM OGRAM, SCREENING 10/16/2012 Q0091 PAP SMEAR OBTAIN SMEAR 10/16/2012 95358 PAP SMEAR 10/17/2012 29000 CULT URE UROGENITAL 10/18/2012 1532430 GY NECOLOGIC ADDENDUM REPORT (RESULT ONLY) 10/18/2012 OBSTE Grim aldJack marie 11/01/2012 36488 US B REAST ULTRASOUND, LEFT 11/16/2012 06702 MAMM OGRAM DX, LEFT 11/16/2012 65.61 OTH REMOVE BOTH OVARIES/TUBES 11/20/2012 68.49 OTHE R AND UNSPECIFIED TOTAL ABDOMINAL HY 11/20/2012 93344 MAMM OGRAM DX, LEFT 05/17/2013 39990 INFL UENZA A & B (IN-HOUSE) 08/22/2013 23042 ROUT INE VENIPUNCTURE 11/11/2013 60649 PULM ONARY FUNCTION TEST (IN- HOUSE) 11/11/2013 29004 PULM ONARY EDUCATION 11/11/2013 32149 CMP 11/11/2013 9757166 GF R CALC (RESULT ONLY) 11/11/2013 29507 PULM ONARY FUNCTION TEST (IN- HOUSE) 11/28/2013 21627 RESP IRATORY FLOW VOLUME LOOP 11/28/2013 57894 PULM ONARY EDUCATION 11/28/2013 59898 CULT URE WOUND (AEROBIC) 12/11/2013 J1885 EDUARDO DOL INJ 03/11/2014 67065 THER APUTIC INJ SQ/IM 03/11/2014 09072 XRAY KNEE LEFT, 1 OR 2 VIEWS 03/21/2014 ORTHOPHITESH PAUL 03/21/2014 15104 AMERITOX 05/07/2014 OrthopThomas Rivero 06/16/2014 75632 ROUT INE VENIPUNCTURE 08/04/2014 44978 MYCO PLASMA ANTIBODY 08/04/2014 Results Test Result Range Urinalysis, Complete - 04/13/16 15:38 Specific [place] 1.026 1.005-1.030 pH 6.0 5.0-7.5 Urine-Color Yellow Yellow Appearance Turbid Clear WBC Esterase Negative Negative Protein 2+ Negative/Trace Glucose Negative Negative Ketones Negative Negative Occult Blood Trace Negative Bilirubin Negative Negative Urobilinogen,Semi-Qn 0.2 mg/dL 0.2-1.0 Nitrite, Urine Negative Negative Microscopic Examination See below: Microscopic Examination - 04/13/16 15:38 WBC 0-5 /hpf 0 - 5 RBC 0-2 /hpf 0 - 2 Epithelial Cells (non renal) 0-10 /hpf 0 - 10 Mucus Threads Present Not Estab. Bacteria None seen None seen/Few Urine Culture, Routine - 04/13/16 15:38 Urine Culture, Routine Note Complete blood count (CBC) with automate d white blood cell (WBC) differential - 06/19/16 01:13 Blood leukocytes automated count (number/volume) 8.7 10*3/uL 4.3-11.0 Blood erythrocytes automated count (number/volume) 5.28 10*6/uL 4.35-5.85 Venous blood hemoglobin measurement (mass/volume) 15.3 g/dL 11.5-16.0 Blood hematocrit (volume fraction) 44 % 35-52 Automated erythrocyte mean corpuscular volume 84 [ foz_us] 80-99 Automated erythrocyte mean corpuscular h emoglobin (mass per erythrocyte) 29 pg 25-34 Automated erythrocyte mean corpuscular h emoglobin concentration measurement (mass/volume) 35 g/dL 32-36 Automated erythrocyte distribution width ratio 13. 4 % 10.0- 14.5 Automated blood platelet count (count/volume) 237 10*3/uL 130-400 Automated blood platelet mean volume measurement 11.8 [foz_us] 7.4-10.4 Automated blood neutrophils/100 leukocytes 41 % 42-75 Automated blood lymphocytes/100 leukocytes 44 % 12-44 Blood monocytes/100 leukocytes 11 % 0-12 Automated blood eosinophils/100 leukocytes 4 % 0-10 Automated blood basophils/100 leukocytes 1 % 0-10 Blood neutrophils automated count (number/volume) 3.6 10*3 1.8-7.8 Blood lymphocytes automated count (number/volume) 3.8 10*3 1.0-4.0 Blood monocytes automated count (number/volume) 0. 9 10*3 0.0-1.0 Automated eosinophil count 0.4 10*3/uL 0 .0-0.3 Automated blood basophil count (count/volume) 0.0 10*3/uL 0.0-0.1 PT panel in platelet poor plasma by coag ulation assay - 06/19/16 01:13 Prothrombin time (PT) in platelet poor plasma by coagu lation assay 12.7 s 12.2-14.7 INR in platelet poor plasma or blood by coagulation as say 1.0 0.8-1.4 Activated partial thromboplastin time (a PTT) in platelet poor plasma bycoagulation assay - 06/19/16 01:13 Activated partial thromboplastin time (a PTT) in platelet poor plasma bycoagulation assay 27 s 24-35 Comprehensive metabolic panel - 06/19/16 01:13 Serum or plasma sodium measurement (moles/volume) 141 mmol/L 135-145 Serum or plasma potassium measurement (moles/volume) 3.7 mmol/L 3.6-5.0 Serum or plasma chloride measurement (moles/volume) 108 mmol/L 98-107 Carbon dioxide 22 mmol/L 21-32 Serum or plasma anion gap determination (moles/volume) 11 mmol/L 5-14 Serum or plasma urea nitrogen measurement (mass/volume ) 12 mg/dL 7-18 Serum or plasma creatinine measurement (mass/volume) 0.91 mg/dL 0.60-1.30 Serum or plasma urea nitrogen/creatinine mass ratio 13 NRG Serum or plasma creatinine measurement w ith calculation of estimated glomerular filtration rate > NRG Serum or plasma glucose measurement (mass/volume) 107 mg/dL 70-105 Serum or plasma calcium measurement (mass/volume) 8.9 mg/dL 8.5-10.1 Serum or plasma total bilirubin measurement (mass/volu me) 0.7 mg/dL 0.1-1.0 Serum or plasma alkaline phosphatase hilda surement (enzymatic activity/volume) 136 U/L 40-136 Serum or plasma aspartate aminotransfera se measurement (enzymatic activity/volume) 32 U/L 5-34 Serum or plasma alanine aminotransferase measurement (enzymatic activity/volume) 30 U/L 0-55 Serum or plasma protein measurement (mass/volume) 7.4 g/dL 6.4-8.2 Serum or plasma albumin measurement (mass/volume) 4.1 g/dL 3.2-4.5 Magnesium - 11/13/16 01:13 Magnesium 2.2 mg/dL 1.8-2.4 Serum or plasma troponin i.cardiac measu rement (mass/volume) - 06/19/16 01:13 Serum or plasma troponin i.cardiac measurement (mass/v olume) < ng/mL <0.30 Myoglobin, serum - 06/19/16 01:13 Myoglobin, serum 67.0 ng/mL 10.0-92.0 Mycoplasma pneumoniae, IgM Ab - 06/29/16 13:30 M pneumoniae IgM Abs <770 U/mL 0-769 CBC With Differential/Platelet - 6 13:30 WBC 9.1 x10E3/uL 3.4-10.8 RBC 4.95 x10E6/uL 3.77-5.28 Hemoglobin 14.0 g/dL 11.1-15.9 Hematocrit 42.0 % 34.0-46.6 MCV 85 fL 79-97 MCH 28.3 pg 26.6-33.0 MCHC 33.3 g/dL 31.5-35.7 RDW 13.8 % 12.3-15.4 Platelets 298 x10E3/uL 150-379 Neutrophils 43 % Lymphs 43 % Monocytes 9 % Eos 4 % Basos 1 % Neutrophils (Absolute) 4.0 x10E3/uL 1.4- 7.0 Lymphs (Absolute) 3.9 x10E3/uL 0.7-3.1 Monocytes(Absolute) 0.8 x10E3/uL 0.1-0.9 Eos (Absolute) 0.4 x10E3/uL 0.0-0.4 Baso (Absolute) 0.1 x10E3/uL 0.0-0.2 Immature Granulocytes 0 % Immature Grans (Abs) 0.0 x10E3/uL 0.0-0. 1 Comp. Metabolic Panel (14) - 06/29/16 13 :30 Glucose, Serum 91 mg/dL 65-99 BUN 10 mg/dL 6-24 Creatinine, Serum 1.00 mg/dL 0.57-1.00 eGFR If NonAfricn Am 68 mL/min/1.73 >59 eGFR If Africn Am 78 mL/min/1.73 >59 BUN/Creatinine Ratio 10 9-23 Sodium, Serum 142 mmol/L 136-144 Potassium, Serum 4.0 mmol/L 3.5-5.2 Chloride, Serum 102 mmol/L 97-106 Carbon Dioxide, Total 26 mmol/L 18-29 Calcium, Serum 9.0 mg/dL 8.7-10.2 Protein, Total, Serum 7.0 g/dL 6.0-8.5 Albumin, Serum 3.7 g/dL 3.5-5.5 Globulin, Total 3.3 g/dL 1.5-4.5 A/G Ratio 1.1 1.1-2.5 Bilirubin, Total 0.5 mg/dL 0.0-1.2 Alkaline Phosphatase, S 107 IU/L 39-117 AST (SGOT) 25 IU/L 0-40 ALT (SGPT) 25 IU/L 0-32 CBC With Differential/Platelet - 7 09:43 WBC 7.2 x10E3/uL 3.4-10.8 RBC 5.13 x10E6/uL 3.77-5.28 Hemoglobin 15.0 g/dL 11.1-15.9 Hematocrit 43.6 % 34.0-46.6 MCV 85 fL 79-97 MCH 29.2 pg 26.6-33.0 MCHC 34.4 g/dL 31.5-35.7 RDW 13.9 % 12.3-15.4 Platelets 270 x10E3/uL 150-379 Neutrophils 45 % Lymphs 41 % Monocytes 9 % Eos 4 % Basos 1 % Neutrophils (Absolute) 3.2 x10E3/uL 1.4- 7.0 Lymphs (Absolute) 3.0 x10E3/uL 0.7-3.1 Monocytes(Absolute) 0.6 x10E3/uL 0.1-0.9 Eos (Absolute) 0.3 x10E3/uL 0.0-0.4 Baso (Absolute) 0.1 x10E3/uL 0.0-0.2 Immature Granulocytes 0 % Immature Grans (Abs) 0.0 x10E3/uL 0.0-0. 1 Comp. Metabolic Panel (14) - 03/27/17 09 :43 Glucose, Serum 102 mg/dL 65-99 BUN 11 mg/dL 6-24 Creatinine, Serum 0.90 mg/dL 0.57-1.00 eGFR If NonAfricn Am 76 mL/min/1.73 >59 eGFR If Africn Am 88 mL/min/1.73 >59 BUN/Creatinine Ratio 12 9-23 Sodium, Serum 142 mmol/L 134-144 Potassium, Serum 4.6 mmol/L 3.5-5.2 Chloride, Serum 104 mmol/L 96-106 Carbon Dioxide, Total 23 mmol/L 18-29 Calcium, Serum 9.2 mg/dL 8.7-10.2 Protein, Total, Serum 7.3 g/dL 6.0-8.5 Albumin, Serum 4.5 g/dL 3.5-5.5 Globulin, Total 2.8 g/dL 1.5-4.5 A/G Ratio 1.6 1.2-2.2 Bilirubin, Total 0.8 mg/dL 0.0-1.2 Alkaline Phosphatase, S 118 IU/L 39-117 AST (SGOT) 28 IU/L 0-40 ALT (SGPT) 29 IU/L 0-32 Lipid Panel - 03/27/17 09:43 Cholesterol, Total 189 mg/dL 100-199 Triglycerides 170 mg/dL 0-149 HDL Cholesterol 48 mg/dL >39 VLDL Cholesterol Alvaro 34 mg/dL 5-40 LDL Cholesterol Calc 107 mg/dL 0-99 Cardiac Panel - 02/02/19 07:23 CK 475 U/L 26-174 CK-MB 2.9 ng/ml 0.0-9.2 Myoglobin 78.3 ng/ml 1.6-106.0 Troponin <0.020 ng/mL 0.0-0.4 PDM - 09 PANEL (PROFILE 1) - 03/14/19 16 :12 Prescribed Drug 1 [place](TM) NRG Creatinine 158.0 mg/dL > or = 20.0 pH 6.57 4.5 - 9.0 Oxidant NEGATIVE mcg/mL <200 Amphetamines NEGATIVE ng/mL <500 medMATCH Amphetamines CONSISTENT NRG Benzodiazepines NEGATIVE ng/mL <100 medMATCH Benzodiazepines CONSISTENT NRG Marijuana Metabolite NEGATIVE ng/mL <20 medMATCH Marijuana Metab CONSISTENT NRG Cocaine Metabolite NEGATIVE ng/mL <150 medMATCH Cocaine Metab CONSISTENT NRG Opiates NEGATIVE ng/mL <100 medMATCH Opiates INCONSISTENT NRG Oxycodone NEGATIVE ng/mL <100 medMATCH Oxycodone CONSISTENT NRG COMMENT NRG Barbiturates NEGATIVE ng/mL <300 medMATCH Barbiturates CONSISTENT NRG Methadone Metabolite NEGATIVE ng/mL <100 medMATCH Methadone Metab CONSISTENT NRG Phencyclidine NEGATIVE ng/mL <25 medMATCH Phencyclidine CONSISTENT NRG LIPID PANEL - 09/16/19 14:18 CHOLESTEROL, TOTAL 164 mg/dL <200 HDL CHOLESTEROL 45 mg/dL > OR = 50 TRIGLYCERIDES 175 mg/dL <150 LDL-CHOLESTEROL 92 mg/dL (calc) NRG CHOL/HDLC RATIO 3.6 (calc) <5.0 NON HDL CHOLESTEROL 119 mg/dL (calc) <13 0 Encounters ACCT No. Visit Date/Time Discharge Status Pt. Type Provider Facility Loc./Unit Complaint [id number] 11/17/2014 13:58:00 11/17/2014 23:59: 59 CLS Outpatient M[employer], DANG L [id number] 10/13/2014 09:16:00 10/13/2014 23:59: 59 CLS Outpatient KAVITHA DIXON DO [id number] 09/15/2014 09:37:00 09/15/2014 23:59: 59 CLS Outpatient [employer] DANG L [id number] 08/18/2014 10:46:00 08/18/2014 23:59: 59 CLS Outpatient [employer] DANG L [id number] 08/04/2014 10:36:00 08/04/2014 23:59: 59 CLS Outpatient [employer] DANG L [id number] 07/21/2014 09:07:00 07/21/2014 23:59: 59 CLS Outpatient [employer], DANG L [id number] 06/19/2014 09:21:00 06/19/2014 23:59: 59 CLS Outpatient [employer] DANG L [id number] 06/12/2014 14:28:00 06/12/2014 23:59: 59 CLS Outpatient HITESH BURTON APRN [id number] 05/16/2014 09:47:00 05/16/2014 23:59: 59 CLS Outpatient MUSA MUNGUIA MD [id number] 05/02/2014 09:55:00 05/02/2014 23:59: 59 CLS Outpatient [employer], DANG L [id number] 04/10/2014 14:47:00 04/10/2014 23:59: 59 CLS Outpatient HITESH BURTON APRN [id number] 03/21/2014 15:14:00 03/21/2014 23:59: 59 CLS Outpatient MADL [employer] INTERNSHIPDANG [id number] 03/21/2014 15:14:00 03/21/2014 23:59: 59 CLS Outpatient MADL UND[employer] INTERNSH[employer]DANG L [id number] 03/11/2014 09:14:00 03/11/2014 23:59: 59 CLS Outpatient MADL [employer]NS[employer]DANG L [id number] 02/20/2014 12:54:00 02/20/2014 23:59: 59 CLS Outpatient MADL UNDERGRADUATE INTERNSHIPSOTEROA L [id number] 01/08/2014 10:06:00 01/08/2014 23:59: 59 CLS Outpatient KAVITHA DIXON DO Jeannine [id number] 12/11/2013 16:09:00 12/11/2013 23:59: 59 CLS Outpatient CAROLINA DIXON DOKurt Paez [id number] 11/28/2013 10:46:00 11/28/2013 23:59: 59 CLS Outpatient WON MARTINEZ APRN Kurt [id number] 11/11/2013 10:34:00 11/11/2013 23:59: 59 CLS Outpatient KAVITHA DIXON DO Jeannine [id number] 11/11/2013 10:34:00 11/11/2013 23:59: 59 CLS Outpatient KAVITHA DIXON DO Jeannine [id number] 10/02/2013 15:28:00 10/02/2013 23:59: 59 CLS Outpatient MICHAEL NOLAN MD [id number] 08/22/2013 11:28:00 08/22/2013 23:59: 59 CLS Outpatient KALEN BHATT APRN Jovita [id number] 05/15/2013 15:21:00 05/15/2013 23:59: 59 CLS Outpatient MICHAEL NOLAN MD [id number] 01/18/2013 14:16:00 01/18/2013 23:59: 59 CLS Outpatient MICHAEL NOLAN MD [id number] 10/31/2012 14:51:00 10/31/2012 23:59: 59 CLS Outpatient DANIAL BASHIR CAROL Hicks [id number] 10/15/2012 13:17:00 10/15/2012 23:59: 59 CLS Outpatient KAVITHA DIXON DO [id number] 09/26/2012 10:34:00 09/26/2012 23:59: 59 CLS Outpatient MUSA MUNGUIA MD [id number] 07/25/2012 14:07:00 07/25/2012 23:59: 59 CLS Outpatient MUSA MUNGUIA MD [id number] 07/13/2012 11:21:00 07/13/2012 23:59: 59 CLS Outpatient [id number] 07/05/2012 08:46:00 07/05/2012 23:59: 59 CLS Outpatient MUSA MUNGUIA MD [id number] 07/05/2012 08:46:00 07/05/2012 23:59: 59 CLS Outpatient [id number] 12/27/2012 14:04:00 Document Registration [id number] 12/05/2012 09:37:00 Document Registration [id number] 10/15/2012 13:17:00 Document Registration [id number] 07/02/2016 07:05:00 Document Registration [id number] 03/28/2017 09:09:00 Document Registration [id number] 02/02/2019 06:54:00 02/02/2019 09:11: 00 [id number]2018 17:20:00 04/25/2018 19:00: 00 [id number]/25/2018 19:06:48 Document Registration [id number] 12/30/2016 09:35:00 017 23:59:59 CLS Outpatient DANG CHIANG ANIMAL RESEARCHER [facility] RAD Z12.39 SCREENING [id number] 12/24/2016 07:28:00 017 10:10:00 DIS Emergency ELIE NUNEZ, YENIFER Paez [facility] ER RASH ON LEGS, ABD AND B ACK [id number] 06/19/2016 01:10:00 016 02:37:00 DIS Emergency YUMIKO NUNEZ, PATRICK Valdivia [facility] ER CHEST PAIN [id number] 11/26/2015 08:42:00 016 23:59:59 CLS Outpatient JAKHUA MCMANUS APRN [facility] RAD SCREENING [id number] 10/29/2015 13:40:00 016 23:59:59 CLS Outpatient EDENILSONHUA MCMANUS APRN [facility] RAD SCREENING [id number] 01/24/2015 21:09:00 015 23:30:00 DIS Emergency MICAELA JACOB [facility] ER POSSIBLE INSECT BITE [id number] 12/22/2014 00:18:00 015 01:08:00 DIS Emergency YUMIKO NUNEZ, PATRICK Valdivia [facility] ER ABSCESS [id number] 12/13/2014 23:05:00 015 01:07:00 DIS Emergency MICAELA JACOB [facility] ER RASH [id number] 04/25/2014 08:06:00 014 23:59:59 CLS Outpatient HITESH BURTON [facility] RAD LEFT KNEE PAIN, LMT [id number] 04/21/2014 00:00:00 014 12:10:00 DIS Inpatient COSMO NUNEZ, TOBY Rosenberg [facility] 4TH LEFT LOWER LEG CELLULIT IS,ABDOMINAL PAIN-NONSPECIF [id number] 03/04/2014 12:35:00 014 15:00:00 DIS Emergency MICAELA JACOB [facility] ER CHEST PAIN [id number] 02/24/2014 21:00:00 014 22:36:00 DIS Emergency JASON HILL DO [facility] ER L KNEE PAIN,SWELLING [id number] 01/05/2014 21:53:00 014 22:54:00 DIS Emergency YUMIKO NUNEZ, PATRICK Valdivia [facility] ER VAGINAL ABCESS [id number] 11/14/2013 12:22:00 014 13:32:00 DIS Emergency KRYSTA KRAUSE DO [facility] ER RIGHT BIG TOE INJURY [id number] 11/14/2013 00:26:00 014 01:28:00 DIS Emergency WILBER AGUILAR MD [facility] ER RT KNEE PAIN- ABSCESS,SWELLING [id number] 03/08/2013 02:45:00 013 04:34:00 DIS Emergency WILBER AGUILAR MD [facility] ER BACK PAIN [id number] 11/20/2012 06:06:00 Document Registration [id number] 11/16/2012 12:48:00 Document Registration [id number] 11/15/2012 09:15:00 Document Registration [id number] 11/12/2012 08:37:00 Document Registration [id number] 08/10/2012 10:15:00 Document Registration [id number] 07/20/2012 14:37:00 Document Registration [id number] 04/24/2011 11:01:00 Document Registration [id number] 01/28/2011 20:26:00 Document Registration [id number] 09/11/2019 18:20:00 09/11/2019 23:59:5 9 [facility] Outpatient JASON MANCUSO APRN [facility] [id number] 09/16/2019 14:00:00 Document Registration [id number] 03/14/2019 15:20:00 Document Registration [id number] 06/30/2016 07:05:00 Document Registration [id number] 04/15/2016 05:05:00 Document Registration
[2020-02-11 03:30] LABS: PROTHROMBIN TIME PATIENT 13.1 SEC (12.2-14.7)
[2020-02-11 03:32] LABS: CHLORIDE 107 MMOL/L (98-107); POTASSIUM 3.4 MMOL/L (3.6-5.0); SODIUM 141 MMOL/L (135-145)
[2020-02-11 03:33] LABS: CALCIUM 8.8 MG/DL (8.5-10.1)
[2020-02-11 03:34] LABS: GLUCOSE 123 MG/DL (70-105); TOTAL PROTEIN 7.6 GM/DL (6.4-8.2)
[2020-02-11 03:36] LABS: BILIRUBIN,TOTAL 0.8 MG/DL (0.1-1.0); CARBON DIOXIDE 20 MMOL/L (21-32)
[2020-02-11 03:38] LABS: ALKALINE PHOSPHATASE 121 U/L (40-136); CREATININE SERUM 0.98 MG/DL (0.60-1.30); GFR ESTIMATED 60
[2020-02-11 03:39] LABS: BUN/CREATININE RATIO 11
[2020-02-11 03:41] LABS: ALANINE AMINOTRANSFERASE 29 U/L (0-55); MAGNESIUM 1.9 MG/DL (1.6-2.4)
[2020-02-11] MEDS ORDERED: KETOROLAC 30 MG/ML VIAL IVP ONE (04:30)
--- NOTE | 2020-02-11 05:40 | ED Chest Pain ---
General Chief Complaint: Upper Extremity Stated Complaint: SHOULDER PAIN Nursing Triage Note: Pt to [facility] via [facility] with c/o bilat shoulder pain and mild SOB with exertion since about 2230 this evening after hleping son move furniture. PT has Hx of HTN, EMS reports giving ASA, NTG SL and paste en route. Nursing Sepsis Screen: No Definite Risk Source: patient Exam Limitations: no limitations History of Present Illness Date Seen by Provider: Feb 11, 2020 Time Seen by Provider: 02:58 Initial Comments This 49-year-old woman presents to the emergency room via EMS with pain in her bilateral shoulders radiating up to her right jaw. She thought this was unusual and she does not have any teeth. She had a little bit of shortness of breath associated with this as well. EMS gave her nitroglycerin and aspirin. Nitroglycerin paste dropped her pain from 8/10 down to 2/10. She denies any history of coronary artery disease but does have family history. Patient states she felt hot and diaphoretic when the symptoms started. The pain started around 00:30. Allergies and Home Medications Allergies Coded Allergies: prednisone (Verified Allergy, Severe, RASH, 12/24/16) meloxicam (Unverified Allergy, Unknown, NAUSEA, 04/20/14) Home Medications Albuterol 8.5 Gm Hfa.aer.ad, 2 PUFF IH Q4H PRN for SHORTNESS OF BREATH, (Reported) Diclofenac Sodium 75 Mg Tablet.dr, 75 MG PO BID, (Reported) Hydrochlorothiazide 25 Mg Tablet, 25 MG PO DAILY, (Reported) Hydrocodone Bit/Acetaminophen 1 Each Tablet, 1 TAB PO TID PRN for PAIN, (Reported) Tad-3 Fatty Acids/Fish Oil 1 Each Capsule, 1,000 MG PO DAILY, (Reported) Prednisone 20 Mg Tab, 40 MG PO DAILY Prescribed by: PATRICK EVANS on 06/19/16 0228 Patient Home Medication List Home Medication List Reviewed: Yes Review of Systems Review of Systems Constitutional: no symptoms reported EENTM: No Symptoms Reported Respiratory: See HPI Cardiovascular: See HPI Gastrointestinal: No Symptoms Reported Genitourinary: No Symptoms Reported Musculoskeletal: see HPI Skin: see HPI Psychiatric/Neurological: No Symptoms Reported Endocrine: No Symptoms Reported Hematologic/Lymphatic: No Symptoms Reported Past [id number]-[id number] Hx Past Med/Social Hx: Reviewed Nursing Past Med/Soc Hx Patient Social History Alcohol Use: Rarely Uses Recreational Drug Use: No Former Smoker, Quit: Jun 07, 2000 Recent Foreign Travel: No Contact w/Someone Who Travel: No Recent Infectious Disease Expo: No Recent Hopitalizations: No Physical Abuse: No Sexual Abuse: No Mistreated: No Fear: No Immunizations Up To Date Tetanus Booster (TDap): Less than 5yrs PED Vaccines UTD: Yes Date of Pneumonia Vaccine: Nov 05, 2012 Seasonal Allergies Seasonal Allergies: No Past Medical History Surgeries: Yes (I&D of abdominal abscess) Gallbladder, Hysterectomy, Tubal Ligation Respiratory: No Cardiac: Yes High Cholesterol, Hypertension Neurological: No Reproductive Disorders: Yes (HYSTERECTOMY AND EPTOPIC ) Female Reproductive Disorders: Menstrual Problems, Endometriosis [employer] History: Hysterectomy, Tubal Ligation Sexually Transmitted Disease: No HIV/AIDS: No Genitourinary: No Gastrointestinal: Yes Gall Bladder Disease Musculoskeletal: Yes Degenerate Disk Disease Endocrine: No Loss of Vision: Denies Hearing Impairment: Denies Cancer: No Psychosocial: No Integumentary: Yes (History of MRSA abscesses) Blood Disorders: No Adverse Reaction/Blood Tranf: No Family Medical History Reviewed Nursing Family Hx Arthritis 19 FATHER, Onset:Unknown Cardiovascular disease G8 BROTHER, Onset:Unknown (MURMUR) G8 SISTER, Onset:Unknown Diabetes mellitus G8 SISTER, Onset:Unknown FH: CHF (congestive heart failure) 19 MOTHER, Onset:Unknown Hypertension 19 FATHER, Onset:Unknown G8 SISTER, Onset:Unknown Myocardial infarction G8 SISTER, Onset:Unknown No Pertinent Family Hx Physical Exam Vital Signs Vital Signs - First Documented 02/11/20 02:59 Temp 36.6 Pulse 76 Resp 21 B/P (MAP) 106/ Pulse Ox 97 O2 Delivery Room Air O2 Flow Rate 172.00 Capillary Refill : Less Than 3 Seconds Height, Weight, BMI Height: 5'4.00" Weight: 250lbs. 9.0oz. 113.804994yt; 44.00 BMI Method:Stated General Appearance: No Apparent Distress, WD/WN, Obese HEENT: PERRL/EOMI, Normal ENT Inspection Neck: Normal Inspection Respiratory: Chest Non Tender, Lungs Clear, Normal Breath Sounds, No Accessory Muscle Use, No Respiratory Distress Cardiovascular: Regular Rate, Rhythm, No Edema, No Murmur, Normal Peripheral Pulses Gastrointestinal: Normal Bowel Sounds, Non Tender, Soft Extremity: Normal Inspection, Non Tender, No Calf Tenderness, No Pedal Edema Neurologic/Psychiatric: Alert, Oriented x3, No Motor/Sensory Deficits, Normal Mood/Affect, zipper lining folder II-XII Norm as Tested Skin: Normal Color, Warm/Dry Progress/Results/Core Measures Results/Orders Lab Results Laboratory Tests Test 02/11/20 03:04 02/11/20 05:04 Range/Units White Blood Count 10.7 4.3-11.0 10^3/uL Red Blood Count 5.18 4.35-5.85 10^6/uL Hemoglobin 15.0 11.5-16.0 G/DL Hematocrit 44 35-52 % Mean Corpuscular Volume 85 80-99 FL Mean Corpuscular Hemoglobin 29 25-34 PG Mean Corpuscular Hemoglobin Concent 34 32-36 G/DL Red Cell Distribution Width 14.0 10.0-14.5 % Platelet Count 263 130-400 10^3/uL Mean Platelet Volume 11.9 H 7.4-10.4 FL Neutrophils (%) (Auto) 45 42-75 % Lymphocytes (%) (Auto) 40 12-44 % Monocytes (%) (Auto) 9 0-12 % Eosinophils (%) (Auto) 5 0-10 % Basophils (%) (Auto) 0 0-10 % Neutrophils # (Auto) 4.9 1.8-7.8 X 10^3 Lymphocytes # (Auto) 4.2 H 1.0-4.0 X 10^3 Monocytes # (Auto) 1.0 0.0-1.0 X 10^3 Eosinophils # (Auto) 0.6 H 0.0-0.3 10^3/uL Basophils # (Auto) 0.0 0.0-0.1 10^3/uL Prothrombin Time 13.1 12.2-14.7 SEC INR Comment 1.0 0.8-1.4 Activated Partial Thromboplast Time 28 24-35 SEC Sodium Level 141 135-145 MMOL/L Potassium Level 3.4 L 3.6-5.0 MMOL/L Chloride Level 107 98-107 MMOL/L Carbon Dioxide Level 20 L 21-32 MMOL/L Anion Gap 14 5-14 MMOL/L Blood Urea Nitrogen 11 7-18 MG/DL Creatinine 0.98 0.60-1.30 MG/DL Estimat Glomerular Filtration Rate 60 BUN/Creatinine Ratio 11 Glucose Level 123 H 70-105 MG/DL Calcium Level 8.8 8.5-10.1 MG/DL Corrected Calcium 8.8 8.5-10.1 MG/DL Magnesium Level 1.9 1.6-2.4 MG/DL Total Bilirubin 0.8 0.1-1.0 MG/DL Aspartate Amino Transf (AST/SGOT) 32 5-34 U/L Alanine Aminotransferase (ALT/SGPT) 29 0-55 U/L Alkaline Phosphatase 121 40-136 U/L Myoglobin 100.8 H 10.0-92.0 NG/ML Troponin I < 0.028 < 0.028 <0.028 NG/ML B-Type Natriuretic Peptide 25.6 <100.0 PG/ML Total Protein 7.6 6.4-8.2 GM/DL Albumin 4.0 3.2-4.5 GM/DL My Orders Orders - PATRICK CALDERON MD Cbc With Automated Diff (02/11/20 03:18) Magnesium (02/11/20 03:18) Chest 1 View, Ap/Pa Only (02/11/20 03:18) Ekg Tracing (02/11/20 03:18) Comprehensive Metabolic Panel (02/11/20 03:18) Myoglobin Serum (02/11/20 03:18) Protime With Inr (02/11/20 03:18) Partial Thromboplastin Time (02/11/20 03:18) O2 (02/11/20 03:18) Monitor-Rhythm Ecg Trace Only (02/11/20 03:18) Lipid Panel (02/12/20 06:00) Ed Iv/Invasive Line Start (02/11/20 03:18) BNP (02/11/20 03:18) Troponin I (02/11/20 03:18) Ketorolac Injection (Toradol Injection) (02/11/20 04:30) Troponin I (02/11/20 05:00) Medications Given in ED Current Medications Medications Dose Ordered Sig/Flavio Route Start Time Stop Time Status Last Admin Dose Admin Ketorolac Tromethamine 15 mg ONCE ONCE IVP 02/11/20 04:30 02/11/20 04:31 DC 02/11/20 04:35 15 MG Vital Signs/I&O 02/11/20 02:59 Temp 36.6 Pulse 76 Resp 21 B/P (MAP) 106/ Pulse Ox 97 O2 Delivery Room Air O2 Flow Rate 172.00 Progress Progress Note : Progress Note Patient's blood pressure trended down nicely. She had minimal lingering pain and headache associated with nitroglycerin. She was given Toradol which resolved in both pains. Repeat troponin was negative and she was pain-free at the time of discharge. She was advised to have her blood pressure checked when she picks up her medications at the clinic today. She was also advised to follow-up with her primary care provider soon as possible and discuss referral to a security ambassador. Initial ECG Impression Date: Feb 11, 2020 Initial ECG Impression Time: 03:09 Initial ECG Rate: 78 Initial ECG Rhythm: Normal Sinus Initial ECG Intervals: Normal Initial ECG Impression: Normal Comment Normal sinus rhythm with no ST elevation or depression. No abnormal intervals or axis deviation. Diagnostic Imaging Diagonstic Imaging: Xray Plain Films/CT/US/NM/MRI: chest Comments Chest x-ray viewed by me. Report not yet available. No acute abnormalities appreciated. Departure Impression Primary Impression: Hypertension Qualified Codes: I10 - Essential (primary) hypertension Additional Impression: Upper extremity pain Qualified Codes: M79.601 - Pain in right arm; M79.602 - Pain in left arm Disposition: 01 HOME, SELF-CARE Condition: Improved Departure-Patient Inst. Decision time for Depature: 05:50 Referrals: KAVITHA DIXON DO (PCP) Primary Care Physician DANG CHIANG (Family) Primary Care Physician Patient Instructions: Chest Pain Add. Discharge Instructions: Stop by the clinic today to have your blood pressure checked when you get your medicines filled. Take your blood pressure medication when you get home this morning. Make a follow-up appointment with your primary care provider as soon as possible. Discuss a cardiology referral with your primary care provider. Return to care if you have worsening symptoms. For pain you may take ibuprofen up to 600 mg every 6 hours as needed. You may also take Tylenol (acetaminophen) up to 1000 mg every 6 hours as needed for pain. All discharge instructions reviewed with patient and/or family. Voiced understanding. Copy Copies To 1: EDGAR SANTIAGO MD, JOSHUA T MD Feb 11, 2020 05:40
[2020-02-11 05:58] VITALS: BP 132/82
--- NOTE | 2020-02-11 06:14 | Diagnostic Imaging Report ---
INDICATION: Bilateral shoulder pain with mild shortness of breath with exertion. TECHNIQUE: Single view chest 3:52 AM. CORRELATION STUDY: 06/19/2016 FINDINGS: Given technique, heart size, mediastinum and vasculature overall appear to be within normal limits. The lungs are clear with no consolidating infiltrate. There is no significant effusion or pneumothorax. IMPRESSION: 1. Negative appearing portable chest. Dictated by: Dictated on workstation # [id number]
== END 2020-02-11 05:58 | disposition home or self-care (01) ==
LOC: EDUNIT# 02:55 → ER 02:58
DX: M79.601 Pain in right arm (principal); M79.602 Pain in left arm; I10 Essential (primary) hypertension; Z88.8 Allergy status to other drugs, medicaments and biological substances; Z79.52 Long term (current) use of systemic steroids; Z87.891 Personal history of nicotine dependence; Z82.49 Family history of ischemic heart disease and other diseases of the circulatory system
CPT/HCPCS: 36415; 71045; 80053; 83735; 83874; 83880; 84484; 85025; 85610; 85730; 93005; 93041

== ENCOUNTER → 2020-09-29 | Outpatient (CLI) | payer OTHER | LOC: CARD 14:30 | PROVIDERS: ATTEND Internal Medicine Cardiovascular Disease | DX: I11.9 Hypertensive heart disease without heart failure (principal); I34.0 Nonrheumatic mitral (valve) insufficiency; Z82.49 Family history of ischemic heart disease and other diseases of the circulatory system | CPT/HCPCS: 93306 ==

== ENCOUNTER → 2020-09-29 | Outpatient (CLI) | payer OTHER ==
--- NOTE | 2020-09-29 14:59 | Diagnostic Imaging Report ---
PROCEDURE: MRI right joint lower extremity without contrast. TECHNIQUE: Multiplanar, multisequence non contrast-enhanced MRI of the right lower extremity was accomplished. INDICATION: Knee pain. There are no prior MRI examinations available for comparison. This exam is less than optimal due to motion artifact. On the sagittal proton density series there is a small area of increased signal within the substance of the posterior horn of the medial meniscus near the articular surface. This finding does not clearly interrupts the articular surfaces but is questionable for a small tear. The lateral meniscus is intact. The anterior and posterior cruciate ligaments, the quadriceps and the infrapatellar tendons, the collateral ligaments, the biceps femoris tendon, the iliotibial band and the medial and lateral retinaculum show no sign of an acute injury. There is no abnormal signal arising from the osseous structures to indicate bone edema or a fracture. There is mild/moderate degenerative disease of the medial and lateral compartments and the patellofemoral space. There is a small joint effusion present. There is no sign of a Collazo's cyst. IMPRESSION: 1. There is a question of a small tear involving the posterior horn of the medial meniscus. The lateral meniscus is intact. 2. The major ligaments and tendons show no sign of an acute injury. 3. There is no evidence for an acute bony abnormality. 4. There are mild/moderate degenerative changes involving the knee joint. Dictated by: Dictated on workstation # [id number]
== END ==
LOC: RAD 12:42
PROVIDERS: ATTEND Nurse Practitioner Family
DX: M17.11 Unilateral primary osteoarthritis, right knee (principal)
CPT/HCPCS: 73721

== ENCOUNTER → 2021-04-14 | Outpatient (CLI) | payer MEDICAID ==
[~2021-04-14] VITALS: Ht 162 cm; Wt 117.0 kg
[~2021-04-14] MED LIST changes: +REGADENOSON 0.4 MG/5 ML SYR (LEXISCAN) IV ONE
[2021-04-14] MEDS: CATHETER FLUSH 10 ML SYR IV PRN ×2 (11:09→12:56)
[2021-04-14 12:55] VITALS: BP 151/90
--- NOTE | 2021-04-15 07:56 | Cardiology Stress Test Report ---
Stress Test Report Date of Procedure/Referring: Date of Procedure: Apr 14, 2021 PCP Radha Christine MD Admitting Physician Center/[facility] Indications: CP Baseline Heart Rate: 70 Baseline Blood Pressure: Blood Pressure Systolic: 151 Blood Pressure Diastolic: 90 Baseline Vitals Vital Signs Date Time Temp Pulse Resp B/P (MAP) Pulse Ox O2 Delivery O2 Flow Rate FiO2 04/14/21 12:55 70 14 151/90 (110) 98 Room Air Baseline EKG: Baseline EKG: NSR Summary After explaining the procedure to the patient, she signed a consent and then brought to the stress nuclear laboratory. Patient received 0.4 mg Lexiscan for stress test, ECG, heart rate and blood pressure were monitored continuously. Resting and stress dose of radio tracer were injected, imaging was acquired and reviewed in short axis, horizontal long axis and vertical long axis views. TID: 1.05 SSS: 9 SDS: 7 EF: 67 1. Patient tolerated Lexiscan well 2. Breast attenuation with reversible ischemia involving the whole anterior wall and anterolateral wall 3. Normal left ventricular size, EF 67% RADHA CHRISTINE MD Apr 15, 2021 07:56
== END ==
LOC: CARD 10:56
PROVIDERS: ATTEND Internal Medicine Cardiovascular Disease
DX: R07.9 Chest pain, unspecified (principal); R06.02 Shortness of breath; I10 Essential (primary) hypertension; Z82.49 Family history of ischemic heart disease and other diseases of the circulatory system
CPT/HCPCS: 78452; 93017; A9502

== ENCOUNTER 2021-04-21 06:44 | Day surgery (SDC) | payer MEDICAID ==
[~2021-04-21] VITALS: Ht 165.1 cm; Wt 114.0 kg
[2021-04-21] VITALS (8 sets, daily range): BP systolic 112–145; BP diastolic 79–95
[~2021-04-21 06:44] MED LIST changes: -REGADENOSON 0.4 MG/5 ML SYR (LEXISCAN) IV ONE
[2021-04-21] MEDS ORDERED: NS IV 1000 ML 1,000 ML ONE (07:25)
[2021-04-21] MEDS ORDERED: HEParin (CATH LAB) 2,000 ML IV ONE (07:25)
[2021-04-21] MEDS ORDERED: LIDOCAINE 1% INJ 20 ML 20 ML VIAL ONE (07:25)
[2021-04-21] MEDS ORDERED: NS IV 1000 ML 1,000 ML IV SCH ×3 (07:30→09:30)
[2021-04-21 07:44] LABS: HEMATOCRIT 51 % (35-52); MEAN CORPUSCULAR HEMOGLOBIN 29 pg (25-34); MEAN CORPUSCULAR HGB CONC 33 g/dL (32-36); MEAN CORPUSCULAR VOLUME 88 fL (80-99); PLATELET COUNT 295 10^3/uL (130-400); WHITE BLOOD COUNT 10.6 10^3/uL (4.3-11.0)
--- NOTE | 2021-04-21 07:57 | Diagnostic Imaging Report ---
INDICATION: Abnormal stress. Hypertension, diabetes EXAMINATION: Chest 04/21/2021 COMPARISON: 02/11/2020 FINDINGS: The cardiomediastinal silhouette is unremarkable. The pulmonary vasculature is within normal limits. The lungs and pleural spaces are clear. IMPRESSION: No evidence of an acute cardiopulmonary process. Dictated by: Dictated on workstation # [id number]
[2021-04-21 08:04] LABS: INR 0.9 (0.8-1.4); PROTHROMBIN TIME PATIENT 12.7 SEC (12.2-14.7)
[2021-04-21] MEDS ORDERED: CETI10TA17 PO (08:10)
[2021-04-21] MEDS ORDERED: DICL100G13 TP (08:10)
[2021-04-21] MEDS ORDERED: HYDR25TA4 PO (08:10)
[2021-04-21] MEDS ORDERED: ATOR20TA66 PO (08:10)
[2021-04-21] MEDS ORDERED: OMEP20TA7 PO (08:10)
[2021-04-21] MEDS ORDERED: LOSA50TA63 PO (08:10)
[2021-04-21] MEDS ORDERED: METO-333 PO (08:10)
[2021-04-21] MEDS ORDERED: ACET325T38 PO (08:10)
[2021-04-21 08:12] LABS: ALBUMIN 4.3 GM/DL (3.2-4.5); BILIRUBIN,TOTAL 1.1 MG/DL (0.1-1.0); CALCIUM 9.9 MG/DL (8.5-10.1); CREATININE SERUM 1.1 MG/DL (0.60-1.30); POTASSIUM 4.1 MMOL/L (3.6-5.0); TOTAL PROTEIN 8.5 GM/DL (6.4-8.2)
[2021-04-21] MEDS ORDERED: VERAPAMIL 5 MG/2 ML (CALAN) VIAL IV ONE (08:32)
[2021-04-21] MEDS ORDERED: MIDAZOLAM 5 MG/5 ML (VERSED) VIAL ONE (08:33)
[2021-04-21] MEDS ORDERED: HEParin 1000 UNIT/ML (10ML VIAL) FOR BOLUS ONE (08:33)
[2021-04-21] MEDS ORDERED: fentaNYL INJ 100 MCG/2 ML AMP ONE (08:33)
[2021-04-21] MEDS ORDERED: NITRO DRIP 25000 MCG/D5W 250 ML IV ONE (08:33)
--- NOTE | 2021-04-21 09:05 | Conscious Sedation/ASA ---
Conscious Sedation Pre-Proced Time 09:04 ASA Score 3 For ASA 3 and 4: Consider anesthesia and medical clearance. Also, for patients with a history of failed moderate sedation consider anesthesia. Airway Lungs Heart ASA score ASA 1: a normal healthy patient ASA 2: a patient with a mild systemic disease (mid diabetes, controlled hypertension, obesity ASA 3: a patient with a severe systemic disease that limits activity (angina, COPD, prior Myocardial infarction) ASA 4: a patient with an incapacitating disease that is a constant threat to life (CHF, renal failure) ASA 5: a moribund patient not expected to survive 24 hrs. (ruptured aneurysm) ASA 6: a declared brain- patient whose organs are being harvested. For emergent operations, add the letter E after the classification Mallampati Classification Grade 3 Sedation Plan Analgesia, Amnesia, Plan communicated to team members, Discussed options with patient/fam, Discussed risks with patient/fam The patient is an appropriate candidate to undergo the planned procedure, sedation, and anesthesia. The patient immediately re-assessed prior to indication. RADHA TURNER MD Apr 21, 2021 09:05
--- NOTE | 2021-04-21 09:22 | Discharge Inst-Post CATH ---
Discharge Inst-CATH/EP Problems Reviewed?: Yes Post Cardiac Cath/EP D/C Inst Follow Up/Plan Appointment with Dr. Christine in 2 to 4 weeks <b>CARDIAC CATH/EP PROCEDURE DISCHARGE INSTRUCTIONS</b> ACTIVITY * Go Home directly and rest. * Limit activity of the leg (or wrist if it was used) for 7 days including aerobics, swimming, jogging, bicycling, etc. * Restrict stair-climbing for 7 days if possible, if not, climb up with your non-cath leg, then bring together on the same step. * Avoid lifting, pushing, pulling or excessive movement of the affected extremity for 7 days. * Customary sexual activity may be resumed after 2 days-use caution not to use a position that strains or causes pain to the affected extremity. * No driving for 24 hours. * NO SMOKING. * Avoid straining for bowel movements for 7 days. * Gentle walking on level ground is allowed. * Returning to work will depend on the type of procedure and the results. Your doctor will discuss this with you. CALL YOUR DOCTOR FOR ANY OF THE FOLLOWING: *If bleeding from the puncture site occurs- Apply gentle pressure to site with clean cloth and call your doctor or EMS. * If a knot or lump forms under the skin, increases in size, or causes pain. * If bruising appears to be worsening or moving further down your leg instead of disappearing. * Temperature above 101 F. CARE OF YOUR GROIN INCISION; * Bruising or purple discoloration of the skin near the puncture site is common. * You may shower only, no bathtub bathing for 5 days. Be careful to avoid slipping as your leg may feel stiff. * If a closure device was used on your femoral artery, please see the attached guide regarding care of the device and your leg. * Leave dressing on FOR 24 hours. CARE OF YOUR WRIST INCISION; * Bruising or purple discoloration of the skin near the puncture site is common. * You may shower. * DO NOT submerge wrist. * Leave dressing on FOR 24 hours. RADHA CHRISTINE MD Apr 21, 2021 09:22
--- NOTE | 2021-04-21 09:25 | Cardiac Cath Report ---
Cardiac Cath Report Physician (s)/Pearl Cutter (s) Physician RADHA TURNER MD Pre-Procedure Diagnosis Pre-Procedure Diagnosis: Coronary artery disease Post-Procedure Note Procedure Start Date: Apr 21, 2021 Name of Procedure: Left heart catheterization Findings/Procedure Note PROCEDURE NOTE: 50-year-old lady with a history of hypertension, hyperlipidemia, had abnormal stress test with reversible ischemia in the anterior wall scheduled for cardiac catheterization possible PTCA. After explaining the procedure to the patient, all pros and cons were explained, all questions were answered. The patient signed the consent and then she was placed on the cardiac catheterization laboratory. Groin was prepped SL fashion local anesthesia was used. Sheath placed in the right radial artery, [place] catheter was advanced to the left ventricular cavity, pressure was measured, pullback LV to aorta was done, intubated the right and left coronary system and angiogram was done. At the end of the procedure the sheath was removed. Vascular band was used FINDINGS: Hemodynamics LV 125/11, end-diastolic pressure of 11 Aorta 114/84 mean of 97 ANATOMY: Left Main is free of obstructive disease Left Anterior Descending has mild to moderate disease at the midportion nonobstr uctive disease Left Circumflex has mild disease nonobstructive disease Right Coronary Artery is dominant artery, tortuous with mild disease nonobstructive disease LV Gram was not done, pressure was measured CONCLUSION: 1. Mild coronary artery disease nonobstructive disease 2. Normal left ventricular end-diastolic pressure DISCUSSION AND RECOMMENDATION: Medical therapy is recommended no intervention is warranted Estimated blood loss (mL): 10 ml Contrast Amount: 40 ml Total Radiation Dose: 402 mGy Post-Procedure Diagnosis Post-operative diagnosis: Chest pain Coronary artery disease Hypertension Hyperlipidemia RADHA TURNER MD Apr 21, 2021 09:25
== END 2021-04-21 12:55 | disposition home or self-care (01) ==
LOC: CATH 06:44 → CSD 09:38 → CATH 12:55
PROVIDERS: ATTEND Internal Medicine Cardiovascular Disease
DX: I25.10 Atherosclerotic heart disease of native coronary artery without angina pectoris (principal); I10 Essential (primary) hypertension; E11.9 Type 2 diabetes mellitus without complications; E78.2 Mixed hyperlipidemia; I25.89 Other forms of chronic ischemic heart disease; J45.909 Unspecified asthma, uncomplicated; E66.9 Obesity, unspecified; Z68.41 Body mass index [BMI] 40.0-44.9, adult; Z79.891 Long term (current) use of opiate analgesic; Z79.899 Other long term (current) drug therapy; Z79.84 Long term (current) use of oral hypoglycemic drugs; Z87.891 Personal history of nicotine dependence
CPT/HCPCS: 71045; 80053; 80061; 85027; 85610; 85730; 87081; 93458; C1894; 36415

== ENCOUNTER → 2021-10-06 | Outpatient (CLI) | payer MEDICAID ==
[~2021-10-06] MED LIST changes: +ACET325T38 PO; +ATOR20TA66 PO; +CETI10TA17 PO; +DICL100G13 TP; +LOSA50TA63 PO; +METO-333 PO; +OMEP20TA7 PO
--- NOTE | 2021-10-06 16:27 | Diagnostic Imaging Report ---
HISTORY: Left ureteral stone. COMPARISON: CT from 04/20/2014. No recent exams. TECHNIQUE: Frontal views of the abdomen. FINDINGS: No distended loops of bowel are seen. There is no large collection of free air. Cholecystectomy clips are noted. No calcifications are identified in the kidneys or along the expected course of the ureters. IMPRESSION: No renal calculi are identified radiographically. Dictated by: Dictated on workstation # [id number]
== END ==
LOC: RAD 13:21
PROVIDERS: ATTEND Urology
DX: N20.1 Calculus of ureter (principal)
CPT/HCPCS: 74018

== ENCOUNTER → 2022-01-13 | Outpatient (CLI) | payer MEDICAID ==
[~2022-01-13] MED LIST changes: +OMEP20TA56 PO; -OMEP20TA7 PO
--- NOTE | 2022-01-13 17:09 | Diagnostic Imaging Report ---
EXAMINATION: Right hip radiograph EXAM DATE: 01/13/2022 5:03 PM COMPARISON: None available. HISTORY: PAIN IN RIGHT KNEE AND RIGHT HIP TECHNIQUE: 2 views FINDINGS: There is no acute fracture, dislocation, or destructive osseous process. The joint spaces are normal. The soft tissues are normal. IMPRESSION: 1. No acute osseous abnormality. Dictated by: Dictated on workstation # [id number]
--- NOTE | 2022-01-13 17:41 | Diagnostic Imaging Report ---
INDICATION: Right knee pain. Three views of the right knee shows narrowing of the medial tibiofemoral joint compartment with small osteophytes forming. There is no fracture, dislocation or pathologic effusion. IMPRESSION: Mild degenerative changes of medial compartment of the right knee. Dictated by: Dictated on workstation # [id number]
== END ==
LOC: RAD 16:42
PROVIDERS: ATTEND Nurse Practitioner Family
DX: M17.11 Unilateral primary osteoarthritis, right knee (principal); M25.551 Pain in right hip
CPT/HCPCS: 73502; 73562

== ENCOUNTER 2022-09-21 12:45 | Outpatient (RCR) | payer MEDICAID ==
[~2022-09-21 12:45] MED LIST changes: -NYST15CR TP; +NYST15CR35 TP
== END 2022-10-04 | disposition home or self-care (01) ==
LOC: ONC 12:45
PROVIDERS: ATTEND Internal Medicine Hematology & Oncology
DX: Z53.9 Procedure and treatment not carried out, unspecified reason (principal)